=== PATIENT | male | born 1950 | race Caucasian/White ===

== ENCOUNTER 2024-07-07 10:44 | Emergency (ER) | payer MEDICARE, MEDICAID, SELFPAY ==
[2024-07-07 10:46] VITALS: BP 136/71; PULSE 68; RESP 18; TEMP 36.8; O2SAT 94; BMI 45.1
--- NOTE | 2024-07-07 10:55 | XRR_ITS ---
PROCEDURE INFORMATION: Exam: XR Chest Exam date and time: 07/07/2024 11:09 AM Age: 73 years old Clinical indication: Shortness of breath; Patient HX: PT presents with bradycardia. EMS reports that halfway states patient would become bradicardic upon standing, dropping to 50-60s. Patient stayed in the 70s for EMS. Patient has HX of copd. Patient given 324 asa enroute. Patent airway, unlabored respirations, and appropriate color. ; Additional info: SOB TECHNIQUE: Imaging protocol: Radiologic exam of the chest. Views: 1 view. COMPARISON: No relevant prior studies available. FINDINGS: Lungs: The lungs are hyperinflated. There is minimal patchy infiltrate or atelectasis at the right lung base. No definite consolidation is appreciated. Pleural spaces: Unremarkable. No pleural effusion. No pneumothorax. Heart/Mediastinum: The heart is enlarged. There is calcified plaque involving the aorta. Bones/joints: Unremarkable. XR/XR chest 1V portable [id number] IMPRESSION: 1. Cardiomegaly. 2. Minimal patchy infiltrate or atelectasis right lung base.
--- NOTE | 2024-07-07 10:55 | ECG_ITS ---
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 Measurements Intervals [place] Rate: 66 P: 59 RI: 189 QRS: 15 QRSD: 98 T: 54 QT: 413 QTc: 433 Interpretive Statements SINUS RHYTHM WITH FREQUENT VENTRICULAR PREMATURE COMPLEXES ABNORMAL RHYTHM ECG No previous ECG available for comparison Electronically Signed On 07-07-2024 14:00:06 JOINERY FACTORY WORKER by Orlando Chavez M.D. [id number]
[2024-07-07 11:10] VITALS: BP 136/71; PULSE 68; RESP 16; O2SAT 94
[2024-07-07 11:11] LABS: Basophils # 0.1 10^3/uL (0.0-0.1); Basophils % 0.8 %; Eosinophils # 0.4 10^3/uL (0.0-0.8); Eosinophils % 4.4 %; Hematocrit 41.3 % (37-53); Lymphocytes # 1.2 10^3/uL (0.8-4.8); Lymphocytes % 13.2 %; Mean Corpuscular HGB Conc 29.8 g/dL (30-55); Mean Corpuscular Hemoglobin 30.4 pg (27-33); Monocytes # 0.9 10^3/uL (0.2-0.9); Monocytes % 9.6 %; Neutrophils # 6.67 10^3/uL (1.8-7.7); Neutrophils % 71.6 %; Nucleated Red Blood Cells % 0 %; Platelet Count 262 10^3/cmm (157-399); Red Blood Count 4.05 10^6/uL (3.85-5.65); Red Cell Distribution Width 15.2 % (12.1-15.1); White Blood Count 9.31 10^3/uL (3.29-11.43)
[2024-07-07 11:26] LABS: INR 1.24 (0.8-1.2); Partial Thromboplastin Time 31.1 SECONDS (23.9-36.7)
[2024-07-07 11:28] LABS: Troponin(5th) Baseline 24 ng/L (0-15)
[2024-07-07 11:43] LABS: Alanine Aminotransferase 10 U/L (0-41); Albumin Level 3.3 g/dL (3.5-5.2); Alkaline Phosphatase 133 U/L (40-130); Anion Gap 13.6 (5-19); Aspartate Amino Transferase 9 U/L (0-40); Blood Urea Nitrogen 20 mg/dL (8-23); Carbon Dioxide 29 mmol/L (22-29); Chloride 103 mmol/L (98-107); Creatinine Clr Calc Pharmacy 85.4341; Globulin 4.2 g/dL (1.3-4.6); Glucose 86 mg/dL (65-115); NT Pro B Type Natriuretic Pept 528 pg/mL (0-125); Osmolality Calculated 294 mOsm/kg (285-295); Potassium 4.6 mmol/L (3.5-5.1); Sodium 141 mmol/L (136-145); Total Bilirubin 0.2 mg/dL (0.15-1.2); Total Protein 7.5 g/dL (6.6-8.7)
--- NOTE | 2024-07-07 12:58 | ECG_ITS ---
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 Measurements Intervals [place] Rate: 66 P: 70 [place]: 192 QRS: 14 QRSD: 88 T: 59 QT: 398 QTc: 418 Interpretive Statements SINUS RHYTHM WITH FREQUENT VENTRICULAR PREMATURE COMPLEXES LOW QRS VOLTAGE IN PRECORDIAL LEADS [QRS DEFLECTION < 1.0 mV IN CHEST LEADS] ABNORMAL RHYTHM ECG Compared to ECG 07/07/2024 10:56:50 No significant changes Electronically Signed On 07-07-2024 14:13:47 SALES REPRESENTATIVE WIRE ROPE by Orlando Chavez M.D. [email or web address]
[2024-07-07] MEDS: ipratropium-albuterol 3 mL Neb INHALATION (13:24)
[2024-07-07 13:26] VITALS: PULSE 64; RESP 16; O2SAT 94
[2024-07-07] MEDS: methylPREDNISolone sod succ 125 mg/2 mL INJ IVP (13:30)
[2024-07-07 13:32] VITALS: PULSE 72
--- NOTE | 2024-07-07 13:48 | ED_ITS ---
HPI - Arrhythmia/Palpitations 2 General: Chief Complaint: Arrhythmia/Palpitations Stated Complaint: low heart rate Time Seen by Provider: 07/07/24 10:47 History of Present Illness: This patient is a 73-year-old white male [facility] who presents to the emergency department for evaluation of hypoxia and bradycardia. care home reported that his O2 sats did drop down into the 70s and his heart rate did drop down into the 30s. Patient states he did have some chest pain last night and some this morning but none currently. States he has chronic shortness of breath. He does have a history of COPD. He is not normally on oxygen. Related Data Previous Rx's Medication Instructions Recorded doxycycline hyclate 100 mg capsule 100 mg PO BID 10 days #20 caps 07/07/24 prednisone 5 mg tablets in a dose See Rx Instructions PO .COMPLEX 07/07/24 pack #21 ea Allergies Allergy/AdvReac Type Severity Reaction Status Date / Time No Known Allergies Allergy Verified 07/07/24 10:52 Review of Systems 2 General: Reports: 10 or more systems reviewed and unremarkable except in HPI and below Card: Reports: other (Bradycardia) Resp: Reports: dyspnea Physical Exam 2 Const: COMMON NORMALS: no acute distress, patient oriented x3 and no limitations GENERAL APPEARANCE: cooperative and comfortable HENMT: COMMON NORMALS: normocephalic, atraumatic, Normal nasal mucous membranes and turbinates present, moist oral mucous membranes and oropharynx normal HEAD & SCALP: normal to inspection, normocephalic and atraumatic F FABIOLA & SINUS: normal facial exam NOSE: Normal nasal mucous membranes and turbinates present Eye: COMMON NORMALS: Equal, round and reactive pupils present, EOMs intact bilaterally and conjunctivae normal GENERAL EYE: appearance normal, both eyes and all related structures CONJUNCTIVA: Yes conjunctivae normal PUPIL: Yes Equal, round and reactive pupils present Neck/C-Spine: COMMON NORMALS: supple and no JVD Chest: COMMONS NORMALS: normal inspection of the chest Resp: COMMON NORMALS: normal respiratory effort and clear to auscultation bilaterally AUSCULTATION: clear to auscultation bilaterally Cardio: COMMON NORMALS: no JVD, regular rate, regular rhythm, No gallops present (Cardio), No murmurs present (Cardio) and No rub (Cardio) RATE: r egular rate RHYTHM: regular rhythm GI: COMMON NORMALS: Normal to inspection, nondistended, normoactive bowel sounds present, Soft to palpation and non-tender AUSCULTATION: Yes normoactive bowel sounds PALPATION: Yes Soft to palpation : COMMON NORMALS: Yes no CVA tenderness BLADDER/KIDNEY EXAM: Yes no CVA tenderness Back/Pelvis: COMMON NORMALS: no CVA tenderness and thoracic and lumbar spine normal to inspection Extremity: COMMON NORMALS: normal to inspection Neuro: COMMON NORMALS: patient oriented x3 and CN's II-XII intact bilaterally Psych: COMMON NORMALS: mental status grossly normal, Normal thought process present and cooperative THOUGHT PROCESS: Normal thought process present Skin: COMMON NORMALS: no rashes or lesions noted, turgor normal and no jaundice GENERAL SKIN EXAM: no rashes or lesions noted and turgor normal Course 2 Vital Signs: Vital signs: Vital Signs Temperature 98.3 F 07/07/24 10:46 Pulse Rate 72 07/07/24 13:32 Respiratory Rate 16 07/07/24 13:26 Blood Pressure 136/71 07/07/24 11:10 Pulse Oximetry 94 07/07/24 13:26 Oxygen Delivery Me thod Room Air 07/07/24 13:26 MDM - Arrhythmia/Palpitations Medical Decision Making Telemetry monitoring revealed sinus rhythm throughout the patient's ER stay. No bradycardia. EKG revealed normal sinus rhythm with some PVCs. No ST segment abnormalities. Chest x-ray revealed either a minimal infiltrate or atelectasis in the right lung base. CBC was normal. CMP normal. BNP was 528. Troponin was 24 with a 2-hour level of 22. He was given a DuoNeb treatment and 125 mg of Solu-Medrol IV. He states that did help with his shortness of breath. I will go ahead and treat him for possible mild or early pneumonia based on the chest x-ray. Placed him on doxycycline and he was given his first dose in the emergency department. Also placed him on prednisone burst and taper for his COPD. Recommended he follow-up with his primary care physician in 1 week for recheck. He was discharged in stable condition. Lab Data 07/07/24 11:06 07/07/24 11:06 Radiology Impressions Chest X-Ray 07/07/24 10:55 IMPRESSION: 1. Cardiomegaly. 2. Minimal patchy infiltrate or atelectasis right lung base. Laboratory Results WBC 9.31 10^3/uL (3.29-11.43) 07/07/24 11:06 RBC 4.05 10^6/uL (3.85-5.65) 07/07/24 11:06 Hgb 12.30 g/dL (11.27-16.99) 07/07/24 11:06 Hct 41.3 % (37-53) 07/07/24 11:06 MCV 102.0 fl (82-101) H 07/07/24 11:06 MCH 30.4 pg (27-33) 07/07/24 11:06 MCHC 29.8 g/dL (30-55) L 07/07/24 11:06 RDW 15.2 % (12.1-15.1) H 07/07/24 11:06 Plt Count 262 10^3/cmm (157-399) 07/07/24 11:06 MPV 9.0 fL (7.4-10.4) 07/07/24 11:06 Neut % (Auto) 71.6 % 07/07/24 11:06 Lymph % (Auto) 13.2 % 07/07/24 11:06 [place] % (Auto) 9.6 % 07/07/24 11:06 Eos % (Auto) 4.4 % 07/07/24 11:06 Baso % (Auto) 0.8 % 07/07/24 11:06 Neut # (Auto) 6.67 10^3/uL (1.8-7.7) 07/07/24 11:06 Lymph # (Auto) 1.2 10^3/uL (0.8-4.8) 07/07/24 11:06 [place] # (Auto) 0.9 10^3/uL (0.2-0.9) 07/07/24 11:06 Eos # (Auto) 0.4 10^3/uL (0.0-0.8) 07/07/24 11:06 Baso # (Auto) 0.1 10^3/uL (0.0-0.1) 07/07/24 11:06 Nucleated RBC % (auto) 0 % 07/07/24 11:06 Nucleated RBCs # 0.0 /100WBC 07/07/24 11:06 PT 16.10 SECONDS (12.1-14.9) H 07/07/24 11:06 INR 1.24 (0.8-1.2) H 07/07/24 11:06 APTT 31.1 SECONDS (23.9-36.7) 07/07/24 11:06 Sodium 141 mmol/L (136-145) 07/07/24 11:06 Potassium 4.6 mmol/L (3.5-5.1) 07/07/24 11:06 Chloride 103 mmol/L (98-107) 07/07/24 11:06 Carbon Dioxide 29 mmol/L (22-29) 07/07/24 11:06 Anion Gap 13.6 (5-19) 07/07/24 11:06 BUN 20 mg/dL (8-23) 07/07/24 11:06 Creatinine 1.2 mg/dL (0.7-1.2) 07/07/24 11:06 GFR Calculation Not Reportable 07/07/24 11:06 Glucose 86 mg/dL (65-115) 07/07/24 11:06 Calculated Osmolality 294 mOsm/kg (285-295) 07/07/24 11:06 Calcium 8.0 mg/dL (8.5-10.5) L 07/07/24 11:06 Total Bilirubin 0.2 mg/dL (0.15-1.2) 07/07/24 11:06 AST 9 U/L (0-40) 07/07/24 11:06 ALT 10 U/L (0-41) 07/07/24 11:06 Alkaline Phosphatase 133 U/L (40-130) H 07/07/24 11:06 Troponin T Baseline 24 ng/L (0-15) H 07/07/24 11:06 Troponin T 120 Minute 22.40 ng/L (0-15) H 07/07/24 12:45 Delta Troponin T -1.60 ABS# (0-10) L 07/07/24 12:45 NT-Pro-B Natriuret Pep 528 pg/mL (0-125) H 07/07/24 11:06 Total Protein 7.5 g/dL (6.6-8.7) 07/07/24 11:06 Albumin 3.3 g/dL (3.5-5.2) L 07/07/24 11:06 Globulin 4.2 g/dL (1.3-4.6) 07/07/24 11:06 All radiology interpretation(s) finalized by discharge Discharge Plan Discharge Patient Disposition: Home Clinical Impression: COPD exacerbation Condition: Stable Prescriptions: New doxycycline hyclate 100 mg capsule 100 mg PO BID 10 Days Qty: 20 0RF prednisone 5 mg tablets,dose pack See Rx Instructions PO .COMPLEX Qty: 21 0RF Rx Instructions: prednisone 5 mg: take 8 tablets (40 mg) on Day 1; 7 tablets (35 mg) on Day 2; then decrease by 1 tablet every day until finished Discharge Orders: Discharge ED (Routine); Ordered 07/07/24 Ordered By: Favio Real Referrals: Fabian Camarillo DO [Primary Care Provider] - Patient Instructions: COPD Activity Restrictions/Additional Instructions: Follow-up with primary care provider in 1 week for recheck. Coding Level of Care Code ED Structural Steel Erection Supervisor for Chana Glass
[2024-07-07] MEDS: doxycycline 100 mg Tablet PO (13:57)
[2024-07-07 14:10] VITALS: BP 128/67; PULSE 68; RESP 14; O2SAT 96
== END 2024-07-07 16:02 | disposition home or self-care (01) ==
PROVIDERS: Emergency Provider Emergency Medicine; PCP Family Medicine
DX: J44.1 Chronic obstructive pulmonary disease with (acute) exacerbation (principal)
CPT/HCPCS: 71045; 80053; 83880; 84484; 85025; 85610; 85730; 93005; 94640; 96374; 99285; J2919

== ENCOUNTER 2024-09-11 20:44 | Emergency (ER) | payer MEDICARE, MEDICAID, SELFPAY ==
[2024-09-11 20:46] VITALS: BP 132/80; PULSE 100; RESP 20; TEMP 38.6; O2SAT 89; BMI 47.5
--- NOTE | 2024-09-11 21:06 | XRR_ITS ---
PROCEDURE INFORMATION: Exam: XR Chest Exam date and time: 09/11/2024 9:54 PM Age: 73 years old Clinical indication: Cough and fever; Additional info: Cough fever TECHNIQUE: Imaging protocol: Radiologic exam of the chest. Views: 1 view. COMPARISON: CR XR chest 1V portable [id number] 07/07/2024 11:09 AM FINDINGS: Lungs: Unremarkable. No consolidation. Pleural spaces: Unremarkable. No pleural effusion. No pneumothorax. Heart/Mediastinum: Unremarkable. No cardiomegaly. Bones/joints: Unremarkable. XR/XR chest 1V portable [id number] IMPRESSION: No acute findings.
[2024-09-11] MEDS: acetaminophen 500 mg Tablet 1000 MG PO (21:19)
[2024-09-11 21:21] VITALS: BP 123/67; PULSE 97; RESP 28; O2SAT 92
[2024-09-11 21:52] VITALS: BP 131/65; PULSE 108; RESP 28; O2SAT 91
[2024-09-11 22:07] LABS: Alkaline Phosphatase 118 U/L (40-130); Anion Gap 15.8 (5-19); Aspartate Amino Transferase 14 U/L (0-40); Blood Urea Nitrogen 22 mg/dL (8-23); Calcium 8.1 mg/dL (8.5-10.5); Carbon Dioxide 28 mmol/L (22-29); Chloride 94 mmol/L (98-107); Creatinine Clr Calc Pharmacy 75.3406; Globulin 5.1 g/dL (1.3-4.6); Glucose 142 mg/dL (65-115); Lactic Sepsis W/Reflex 1.5 mmol/L (0.5-2.2); Osmolality Calculated 284 mOsm/kg (285-295); Potassium 3.8 mmol/L (3.5-5.1); Sodium 134 mmol/L (136-145); Total Bilirubin 0.5 mg/dL (0.15-1.2); Total Protein 8.1 g/dL (6.6-8.7)
--- NOTE | 2024-09-11 22:07 | ED_ITS ---
HPI - Fever 2 General: Chief Complaint: Fever Stated Complaint: fever Time Seen by Provider: 09/11/24 21:06 History of Present Illness: Patient presents from correction for weakness and high fevers. Patient said he has been for bad for the last 2 or 3 days. He is not quite sure why is here though he is a very poor historian. Patient is alert and oriented x 4. Patient initially was requiring oxygen but we titrated him down to 0 L and he kept a saturation 91% or above. Patient's temperature upon arrival was 101.5. Related Data Previous Rx's Medication Instructions Recorded prednisone 5 mg tablets in a dose See Rx Instructions PO .COMPLEX 07/07/24 pack #21 ea cefdinir 300 mg capsule 300 mg PO BID 10 days #20 caps 09/12/24 Allergies Allergy/AdvReac Type Severity Reaction Status Date / Time No Known Allergies Allergy Verified 07/07/24 10:52 Review of Systems 2 General: Reports: 10 or more systems reviewed and unremarkable except in HPI and below Physical Exam 2 Const: COMMON NORMALS: no acute distress, average body habitus, patient oriented x3, no limitations, healthy appearing, alert and well nourished HENMT: COMMON NORMALS: normocephalic, atraumatic, hearing grossly normal bilaterally, external ears normal, Normal external nose present and moist oral mucous membranes HEAD & SCALP: normocephalic and atraumatic NOSE: Normal external nose present EXTERNAL EAR: Yes external ears normal Neck/C-Spine: COMMON NORMALS: no JVD Chest: COMMONS NORMALS: normal inspection of the chest and normal palpation of entire chest wall Resp: COMMON NORMALS: normal respiratory effort, No retractions and No use of accessory muscles; negative for clear to auscultation bilaterally (Decreased breath sounds bilaterally occasional wheeze) AUSCULTATION: not clear to auscultation bilaterally (Decreased breath sounds bilaterally occasional wheeze) Cardio: COMMON NORMALS: no JVD, regular rate, regular rhythm, S1 normal heart sound present, S2 normal heart sound present, No gallops present (Cardio), No clicks present (Cardio) and No murmurs present (Cardio) RATE: regular rate RHYTHM: regular rhythm HEART SOUNDS: S1 normal heart sound present and S2 normal heart sound present GI: COMMON NORMALS: Normal to inspection, nondistended, normoactive bowel sounds present, Soft to palpation, non-tender, No hepatosplenomegaly present and no masses PALPATION: Yes Soft to palpation and Yes No hepatosplenomegaly present Neuro: COMMON NORMALS: patient oriented x3 SENSORIUM/ORIENTATION: Yes alert Course 2 Vital Signs: Vital signs: Vital Signs Temperature 101.5 F H 09/11/24 20:46 Pulse Rate 81 09/12/24 00:06 Respiratory Rate 19 H 09/12/24 00:06 Blood Pressure 127/64 09/12/24 00:06 Pulse Oximetry 95 09/12/24 00:06 Oxygen Delivery Me thod Nasal Cannula 09/12/24 00:06 Oxygen Flow Rate 2 09/12/24 00:06 MDM - Fever Medical Decision Making Chest x-ray was negative, lab work revealed a 22,000 white count, hemoglobin 10 lactic acid was within normal limits urinalysis was unremarkable for infection, COVID RSV and influenza A negative, patient will be given Rocephin and discharged back to his correction. Medical Records I reviewed the patient's medical records. Lab Data I reviewed the patient's lab results. 09/11/24 21:40 09/11/24 21:40 Radiology Impressions Chest X-Ray 09/11/24 21:06 IMPRESSION: No acute findings. Laboratory Results WBC 22.83 10^3/uL (3.29-11.43) H 09/11/24 21:40 RBC 3.71 10^6/uL (3.85-5.65) L 09/11/24 21:40 Hgb 10.60 g/dL (11.27-16.99) L 09/11/24 21:40 Hct 35.1 % (37-53) L 09/11/24 21:40 MCV 94.6 fl (82-101) 09/11/24 21:40 MCH 28.6 pg (27-33) 09/11/24 21:40 MCHC 30.2 g/dL (30-55) 09/11/24 21:40 RDW 15.6 % (12.1-15.1) H 09/11/24 21:40 Plt Count 323 10^3/cmm (157-399) 09/11/24 21:40 MPV 8.7 fL (7.4-10.4) 09/11/24 21:40 Neut % (Auto) 86.9 % 09/11/24 21:40 Lymph % (Auto) 5.1 % 09/11/24 21:40 [place] % (Auto) 7.0 % 09/11/24 21:40 Eos % (Auto) 0.0 % 09/11/24 21:40 Baso % (Auto) 0.2 % 09/11/24 21:40 Neut # (Auto) 19.85 10^3/uL (1.8-7.7) H 09/11/24 21:40 Lymph # (Auto) 1.2 10^3/uL (0.8-4.8) 09/11/24 21:40 [place] # (Auto) 1.6 10^3/uL (0.2-0.9) H 09/11/24 21:40 Eos # (Auto) 0.0 10^3/uL (0.0-0.8) 09/11/24 21:40 Baso # (Auto) 0.1 10^3/uL (0.0-0.1) 09/11/24 21:40 Nucleated RBC % (auto) 0.1 % 09/11/24 21:40 Nucleated RBCs # 0.0 /100WBC 09/11/24 21:40 Sodium 134 mmol/L (136-145) L 09/11/24 21:40 Potassium 3.8 mmol/L (3.5-5.1) 09/11/24 21:40 Chloride 94 mmol/L (98-107) L 09/11/24 21:40 Carbon Dioxide 28 mmol/L (22-29) 09/11/24 21:40 Anion Gap 15.8 (5-19) 09/11/24 21:40 BUN 22 mg/dL (8-23) 09/11/24 21:40 Creatinine 1.4 mg/dL (0.7-1.2) H 09/11/24 21:40 GFR Calculation Not Reportable 09/11/24 21:40 Glucose 142 mg/dL (65-115) H 09/11/24 21:40 Calculated Osmolality 284 mOsm/kg (285-295) L 09/11/24 21:40 Lactic Acid 1.5 mmol/L (0.5-2.2) 09/11/24 21:40 Calcium 8.1 mg/dL (8.5-10.5) L 09/11/24 21:40 Total Bilirubin 0.5 mg/dL (0.15-1.2) 09/11/24 21:40 AST 14 U/L (0-40) 09/11/24 21:40 ALT 11 U/L (0-41) 09/11/24 21:40 Alkaline Phosphatase 118 U/L (40-130) 09/11/24 21:40 NT-Pro-B Natriuret Pep 1100 pg/mL (0-125) H 09/11/24 21:40 Total Protein 8.1 g/dL (6.6-8.7) 09/11/24 21:40 Albumin 3.0 g/dL (3.5-5.2) L 09/11/24 21:40 Globulin 5.1 g/dL (1.3-4.6) H 09/11/24 21:40 Procalcitonin 0.33 ng/mL (0-0.5) 09/11/24 21:40 Urine Color Dark yellow (Yellow) A 09/11/24 23:08 Urine Appearance Clear (CLEAR) 09/11/24 23:08 Urine pH 5.5 (5-7) 09/11/24 23:08 Ur Specific [place] 1.021 (1.005-1.030) 09/11/24 23:08 Urine Protein 1+ (Negative) A 09/11/24 23:08 Urine Glucose (UA) Negative (Normal) 09/11/24 23:08 Urine Ketones Negative (Negative) 09/11/24 23:08 Urine Blood Trace (Negative) A 09/11/24 23:08 Urine Nitrate Negative (Negative) 09/11/24 23:08 Urine Bilirubin Negative (Negative) 09/11/24 23:08 Urine Urobilinogen 1.0 mg/dL (Negative) 09/11/24 23:08 Ur Leukocyte Esterase Negative (Negative) 09/11/24 23:08 Urine RBC 11-20 /hpf (0-2) H 09/11/24 23:08 Urine WBC 0-5 /hpf (0-5) 09/11/24 23:08 Ur Squamous Epith Cells 0-5 /hpf (0-5) 09/11/24 23:08 Amorphous Sediment Not Reportable 09/11/24 23:08 Urine Bacteria None seen /hpf (NONE) 09/11/24 23:08 Hyaline Casts 0.81 /lpf 09/11/24 23:08 Coronavirus (PCR) Negative (Negative) 09/11/24 21:31 Influenza A (PCR) Negative (Negative) 09/11/24 21:31 Influenza Type B (PCR) Negative (Negative) 09/11/24 21:31 RSV (PCR) Negative (Negative) 09/11/24 21:31 All radiology interpretation(s) finalized by discharge Discharge Plan Discharge Patient Disposition: Home Clinical Impression: Hypoxia Fever Qualifiers: Fever type: unspecified Qualified Code(s): R50.9 - Fever, unspecified Leukocytosis Qualifiers: Leukocytosis type: unspecified Qualified Code(s): D72.829 - Elevated white blood cell count, unspecified Condition: Stable Prescriptions: New cefdinir 300 mg capsule 300 mg PO BID 10 Days Qty: 20 0RF No Action prednisone 5 mg tablets,dose pack See Rx Instructions PO .COMPLEX Qty: 21 0RF Rx Instructions: prednisone 5 mg: take 8 tablets (40 mg) on Day 1; 7 tablets (35 mg) on Day 2; then decrease by 1 tablet every day until finished Discharge Orders: Discharge ED (Routine); Ordered 09/12/24 Ordered By: Darron Wise Referrals: Fabian Camarillo DO [Primary Care Provider] - 1 week Patient Instructions: Fever - Adult, Leukocytosis (ED), Hypoxia (ED) Activity Restrictions/Additional Instructions: You been placed on cefdinir and antibiotic which should take care of any bacterial infection. Please stay on 2 L of oxygen per nasal cannula to help your oxygen saturations stay above 90%. Please follow-up with your family practice physician within next 7 days for further evaluation and treatment. Coding Level of Care Code ED Bar Tacker for Chana Glass
[2024-09-11 22:14] LABS: Procalcitonin 0.33 ng/mL (0-0.5)
[2024-09-11 22:27] LABS: Covid PCR NEGATIVE (Negative); Influenza A NEGATIVE (Negative); Influenza B NEGATIVE (Negative); Respiratory Syncytial Virus Ce NEGATIVE (Negative)
[2024-09-11 22:33] LABS: NT Pro B Type Natriuretic Pept 1100 pg/mL (0-125)
[2024-09-11 22:40] LABS: Basophils # 0.1 10^3/uL (0.0-0.1); Basophils % 0.2 %; Hematocrit 35.1 % (37-53); Lymphocytes # 1.2 10^3/uL (0.8-4.8); Lymphocytes % 5.1 %; Mean Corpuscular HGB Conc 30.2 g/dL (30-55); Mean Corpuscular Hemoglobin 28.6 pg (27-33); Mean Corpuscular Volume 94.6 fl (82-101); Mean Platelet Volume 8.7 fL (7.4-10.4); Monocytes # 1.6 10^3/uL (0.2-0.9); Neutrophils # 19.85 10^3/uL (1.8-7.7); Neutrophils % 86.9 %; Nucleated Red Blood Cells % 0.1 %; Platelet Count 323 10^3/cmm (157-399); Red Blood Count 3.71 10^6/uL (3.85-5.65); Red Cell Distribution Width 15.6 % (12.1-15.1); White Blood Count 22.83 10^3/uL (3.29-11.43)
[2024-09-11 22:46] LABS: Alanine Aminotransferase 11 U/L (0-41)
[2024-09-11 23:10] VITALS: BP 109/56; PULSE 89; RESP 21; O2SAT 90
[2024-09-11 23:31] LABS: Bilirubin Urine Negative (Negative); Blood Urine Trace (Negative); Glucose Urine UA Negative (Normal); Ketones Urine Negative (Negative); Leukocyte Esterase Urine Negative (Negative); Nitrate Urine Negative (Negative); Protein Urine 1+ (Negative); Specific Gravity, Urine 1.021 (1.005-1.030); Urine Appearance Clear (CLEAR); Urine Color Dark Yellow (Yellow); pH Urine 5.5 (5-7)
[2024-09-11 23:36] LABS: Add Urine Microscopic? YES; Bacteria Urine None Seen /hpf; Hyaline Casts Urine 0.81 /lpf; Squamous Epithelial Cell Urine 0-5 /hpf (0-5); WBC Urine 0-5 /hpf (0-5)
[2024-09-12 00:06] VITALS: BP 127/64; PULSE 81; RESP 19; O2SAT 95
[2024-09-12] MEDS: cefTRIAXone 2,000 mg SDV 2000 MG IVP (00:50)
[2024-09-12 00:51] VITALS: BP 120/65; PULSE 79; RESP 19; O2SAT 92
[2024-09-12 01:30] VITALS: BP 129/68; PULSE 82; O2SAT 93
== END 2024-09-12 01:28 | disposition home or self-care (01) ==
PROVIDERS: Emergency Provider Emergency Medicine; PCP Family Medicine
DX: R09.02 Hypoxemia (principal); R50.9 Fever, unspecified; D72.829 Elevated white blood cell count, unspecified; Z11.52 Encounter for screening for COVID-19
CPT/HCPCS: 36415; 71045; 80053; 81001; 83605; 83880; 84145; 85025; 87040; 87637; 96374; 99284; J0696

== ENCOUNTER 2024-11-02 12:38 | Inpatient (IN) | payer MEDICARE, MEDICAID, SELFPAY ==
[2024-11-02] VITALS (58 sets, daily range): BP systolic 116–173; BP diastolic 63–107; PULSE 94–145; RESP 20–38; TEMP 36.7–37.9; O2SAT 81–98; BMI 46.5
--- NOTE | 2024-11-02 12:41 | XRR_ITS ---
PROCEDURE INFORMATION: Exam: XR Chest Exam date and time: 11/02/2024 12:53 PM Age: 74 years old Clinical indication: Cough and dyspnea; Dyspnea; Cough; Respiratory distress; Leukocytosis TECHNIQUE: Imaging protocol: Radiologic exam of the chest. Views: 1 view. COMPARISON: CR (CHEST, ) 09/11/2024 9:54 PM FINDINGS: Lungs: Unremarkable. No consolidation. Pleural spaces: Unremarkable. No pleural effusion. No pneumothorax. Heart/Mediastinum: See Vasculature finding. Vasculature: Mild cardiomegaly uncoiling the thoracic aorta. Bones/joints: Unremarkable. XR/XR chest 1V portable [id number] IMPRESSION: No acute findings.
--- NOTE | 2024-11-02 12:46 | USR_ITS ---
PROCEDURE INFORMATION: Exam: US Duplex Lower Extremity Veins, Bilateral Exam date and time: 11/02/2024 2:01 PM Age: 74 years old Clinical indication: Swelling (edema) of limb; Lower extremity, bilateral; Additional info: Leg pain swellling TECHNIQUE: Imaging protocol: Real-time duplex ultrasound of the bilateral extremities with 2-D wyatt scale, color Doppler flow and spectral waveform analysis including responses to compression and other maneuvers (when performed) with image documentation. Complete exam focused on the lower extremity veins. COMPARISON: No relevant prior studies available. FINDINGS: Right deep veins: Unremarkable. The common femoral, femoral, proximal profunda femoral and popliteal veins are patent without thrombus. Normal Doppler waveforms. Normal compressibility and/or augmentation response. Left deep veins: Unremarkable. The common femoral, femoral, proximal profunda femoral and popliteal veins are patent without thrombus. Normal Doppler waveforms. Normal compressibility and/or augmentation response. Superficial veins: Greater saphenous veins at the saphenofemoral junctions are patent bilaterally without thrombus. Soft tissues: Unremarkable. Other findings: The study is limited by the patient's body habitus and inability to cooperate. US/[place] [id number] IMPRESSION: No evidence of deep vein thrombosis. Limited study.
--- NOTE | 2024-11-02 12:49 | ECG_ITS ---
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 Measurements Intervals [place] Rate: 112 P: 51 CO: 152 QRS: -19 QRSD: 89 T: 56 QT: 325 QTc: 444 Interpretive Statements SINUS TACHYCARDIA LOW QRS VOLTAGE IN PRECORDIAL LEADS [QRS DEFLECTION < 1.0 mV IN CHEST LEADS] ANTEROSEPTAL MYOCARDIAL INFARCTION , PROBABLY OLD [40+ ms Q WAVE IN V1-V4] Compared to ECG 07/07/2024 12:58:11 Myocardial infarct finding now present Sinus rhythm no longer present Ventricular premature complex(es) no longer present Electronically Signed On 11-02-2024 17:57:09 ANALYTICS LEADER by Kaz Stafford M.D. [email or web address] [id number]
[2024-11-02 13:01] LABS: ABG PCO2 41.2 mmHg (35-45); ABG PH Result 7.46 (7.35-7.45); Alveolar-Arterial Oxygen Gradi 14.8 mmHg (5-10); Arterial Blood Gas Hematocrit 31.6 % (42-52); Base Excess ABG 5.1 mmol/L (-2.0-2.0); Blood Gas Allen Test Pos; Blood Gas Operator Identificat AMH; Blood Gas Sample Site Radial, left; Blood Gas Sample Type Arterial; Carboxyhemoglobin 1.6 %THgb (0.4-20.1); HCO3 ABG 29.4 mmol/L (22-26); HGB O2 Sat 91.7 % (95-100); Ionized Calcium Level - ABG 1.1 mmol/L (1.1-1.4); Methemoglobin < 0.0 % (0.4-1.5); Oxygen Device NC; Oxygen Saturation ABG 93.2; PO2 ABG 63.8 mmHg (80.0-100.0); PO2 FiO2 Ratio Arterial Blood 199; Potassium Level - ABG 4.2 mmol/L (3.5-5.0); Total Hemoglobin 10.3 g/dL (14-18)
[2024-11-02] MEDS: ipratropium-albuterol 3 mL Neb INHALATION (13:11)
--- NOTE | 2024-11-02 13:19 | PC.PHAR ---
Pt is from [facility] in [facility]. [phone]
[2024-11-02 13:22] LABS: Basophils # 0.1 10^3/uL (0.0-0.1); Basophils % 0.2 %; Hematocrit 34.4 % (37-53); Lymphocytes # 0.8 10^3/uL (0.8-4.8); Lymphocytes % 2.5 %; Mean Corpuscular HGB Conc 28.2 g/dL (30-55); Mean Corpuscular Hemoglobin 25.3 pg (27-33); Mean Corpuscular Volume 89.8 fl (82-101); Mean Platelet Volume 8.8 fL (7.4-10.4); Monocytes % 3.1 %; Neutrophils % 93.1 %; Nucleated Red Blood Cells % 0.1 %; Platelet Count 448 10^3/cmm (157-399); Red Blood Count 3.83 10^6/uL (3.85-5.65); Red Cell Distribution Width 16.5 % (12.1-15.1)
[2024-11-02 13:26] LABS: White Blood Count 32.32 10^3/uL (3.29-11.43)
[2024-11-02 13:42] LABS: Troponin(5th) Baseline 46 ng/L (0-15)
[2024-11-02 13:52] LABS: Reflex Lactate Order REFLEX LACTIC ORDERD
--- NOTE | 2024-11-02 13:53 | W.ED.SOB ---
HPI - SOB/Dyspnea General: Chief Complaint: Shortness of Breath/Dyspnea Stated Complaint: resp distress Time Seen by Provider: 11/02/24 12:40 History of Present Illness: HPI Narrative: Morbidly obese 74-year-old male presents to the emergency room with complaints of respiratory distress via [facility]. He is normally evidently not on he is to he tells me he is on oxygen as needed sometimes will use up to 2 L at night before he goes to bed. When he arrives here he is on 5 L is able to titrate him down to 3 and he maintained sats in the mid to low 90s. He is having significant respiratory distress with labored breathing and use of accessory respiratory muscles he has audible wheezing and crackles. He denies chest pain. He has swelling and redness of his legs which he states is worsened particularly on his right leg he has an ulcer on his right leg that is being treated by wound care at the penitentiary. Associated symptoms: Reports chest congestion and fever(s); Deny abdominal pain or chest pain Related Data Home Medications ?Medication ?Instructions ?Recorded ?Confirmed albuterol sulfate 90 mcg/actuation 2 puff inhalation Q4H PRN 11/02/24 11/02/24 aerosol inhaler Shortness Of Breath Or Wheezing aluminum-mag hydroxide-simethicone 30 ml PO Q2H PRN 11/02/24 11/02/24 400 mg-400 mg-40 mg/5 mL oral susp indigeston/heartburn/gas (Mylanta Maximum Strength) apixaban 5 mg tablet (Eliquis) 5 mg PO BID 11/02/24 11/02/24 bisacodyl 10 mg rectal suppository 10 mg W[place] .Q72H PRN Constipation 11/02/24 11/02/24 bisacodyl 5 mg tablet 20 mg PO .Q72H PRN Constipation 11/02/24 11/02/24 docusate sodium 100 mg capsule 100 mg PO BID 11/02/24 11/02/24 (Colace) ergocalciferol (vitamin D2) 1,250 50,000 mcg PO Q7D 11/02/24 11/02/24 mcg (50,000 unit) capsule fluoxetine 40 mg capsule 40 mg PO DAILY 11/02/24 11/02/24 fluticasone fur. 200 mcg-umeclid 1 inh inhalation DAILY 11/02/24 11/02/24 62.5 mcg-vilant 25 mcg inhalat.powder (Trelegy Ellipta) furosemide 80 mg tablet 80 mg PO DAILY 11/02/24 11/02/24 gabapentin 300 mg capsule 300 mg PO BID 11/02/24 11/02/24 ipratropium 0.5 mg-albuterol 3 mg 3 ml inhalation BID 11/02/24 11/02/24 (2.5 mg base)/3 mL nebulization soln loperamide 2 mg-simethicone 125 mg 1 tab PO Q6H PRN Diarrhea 11/02/24 11/02/24 tablet magnesium hydroxide 400 mg/5 mL 30 ml PO DAILY PRN Constipation 11/02/24 11/02/24 oral suspension (Milk of Magnesia) melatonin 3 mg tablet 6 mg PO BEDTIME 11/02/24 11/02/24 multivitamin 1 tab PO QAM 11/02/24 11/02/24 omeprazole 20 mg tablet,delayed 20 mg PO DAILY 11/02/24 11/02/24 release oxycodone-acetaminophen 10 mg-325 1 tab PO Q6H PRN Pain 11/02/24 11/02/24 mg tablet polyethylene glycol 3350 17 17 g PO DAILY PRN bowel management 11/02/24 11/02/24 gram/dose oral powder (Miralax) protein supplement See Rx Instructions .Route .COMPLEX 11/02/24 11/02/24 semaglutide 0.25 mg or 0.5 mg (2 0.5 mg SUBCUT Q7D 11/02/24 11/02/24 mg/3 mL) subcutaneous pen injector (Ozempic) sennosides 8.6 mg tablet (senna) 8.6 mg PO DAILY 11/02/24 11/02/24 spironolactone 50 mg tablet 50 mg PO DAILY 11/02/24 11/02/24 Allergies Allergy/AdvReac Type Severity Reaction Status Date / Time No Known Allergies Allergy Verified 07/07/24 10:52 Review of Systems Const: Reports: fever(s), chills, body aches, fatigue and malaise Card: Denies: chest pain Resp: Reports: dyspnea, non-productive cough, wheezing and chest congestion GI: Denies: abdominal pain : Denies: dysuria, urinary frequency or urinary urgency Musc: Denies: neck pain or back pain Skin/Breast: Denies: rash Physical Exam Const: COMMON NORMALS: no acute distress GENERAL APPEARANCE: cooperative and comfortable ORIENTATION/CONSCIOUSNESS: Yes awake, Yes oriented to person, Yes oriented to place and Yes oriented to time HENMT: COMMON NORMALS: normocephalic, atraumatic and hearing grossly normal bilaterally HEAD & SCALP: normocephalic and atraumatic Resp: COMMON NORMALS: normal respiratory effort, No retractions, No use of accessory muscles and clear to auscultation bilaterally AUSCULTATION: clear to auscultation bilaterally Cardio: COMMON NORMALS: regular rate, regular rhythm and No murmurs present (Cardio) RATE: regular rate RHYTHM: regular rhythm GI: COMMON NORMALS: Soft to palpation and No hepatosplenomegaly present AUSCULTATION: Yes normoactive bowel sounds PALPATION: Yes Soft to palpation, No Tenderness to palpation present (GI), No Guarding due to palpation present (GI) and Yes No hepatosplenomegaly present Extremity: COMMON NORMALS: normal to inspection, capillary refill normal, no clubbing, cyanosis or edema, no calf tenderness and no pedal edema Neuro: SENSORIUM/ORIENTATION: Yes oriented to person, Yes oriented to place and Yes oriented to time Skin: OTHER: Course Vital Signs: Vital signs: Vital Signs Temperature 99.8 F H 11/02/24 12:40 Pulse Rate 108 H 11/02/24 15:00 Respiratory Rate 30 H 11/02/24 15:00 Blood Pressure 118/63 11/02/24 15:00 Pulse Oximetry 93 11/02/24 15:00 Oxygen Delivery Me thod Nasal Cannula 11/02/24 13:10 Oxygen Flow Rate 3 11/02/24 13:10 MDM - SOB/Dyspnea Medical Decision Making Leukocytosis with sepsis right lower lobe pneumonia and congestive heart failure. Initially on evaluation patient was obviously in worsened congestive heart failure send known history of we do not have a echo to quantify. Patient was given 60 mg of Lasix. White count came back as well as elevated with his marked left shift he had a white count of 23,000 his last visit prior to that was normal. Cultures have been done his lactate is elevated I do believe he has a right lower and middle pneumonias as well as a left lower lobe pneumonia. He started on IV antibiotics. We did not give the full fluid bolus because of the patient's congestive heart failure doing so would of course significantly worsened his outcomes and caused him deterioration he was given 250 mL IV and lieu of the 30 mL/kg bolus because of his medical condition. Discussed with hospitalist orders written he has been started on vancomycin and Zosyn. Medical Records I reviewed the patient's medical records. Lab Data I reviewed the patient's lab results. 11/02/24 13:14 11/02/24 13:14 Labs/Radiology: Radiology Impressions Chest X-Ray 11/02/24 12:41 IMPRESSION: No acute findings. Venous Duplex 11/02/24 12:46 IMPRESSION: No evidence of deep vein thrombosis. Limited study. Laboratory Results WBC 32.32 10^3/uL (3.29-11.43) H* 11/02/24 13:14 RBC 3.83 10^6/uL (3.85-5.65) L 11/02/24 13:14 Hgb 9.70 g/dL (11.27-16.99) L 11/02/24 13:14 Hct 34.4 % (37-53) L 11/02/24 13:14 MCV 89.8 fl (82-101) 11/02/24 13:14 MCH 25.3 pg (27-33) L 11/02/24 13:14 MCHC 28.2 g/dL (30-55) L 11/02/24 13:14 RDW 16.5 % (12.1-15.1) H 11/02/24 13:14 Plt Count 448 10^3/cmm (157-399) H 11/02/24 13:14 MPV 8.8 fL (7.4-10.4) 11/02/24 13:14 Neut % (Auto) 93.1 % 11/02/24 13:14 Lymph % (Auto) 2.5 % 11/02/24 13:14 [place] % (Auto) 3.1 % 11/02/24 13:14 Eos % (Auto) 0.0 % 11/02/24 13:14 Baso % (Auto) 0.2 % 11/02/24 13:14 Neut # (Auto) 30.10 10^3/uL (1.8-7.7) H 11/02/24 13:14 Lymph # (Auto) 0.8 10^3/uL (0.8-4.8) 11/02/24 13:14 [place] # (Auto) 1.0 10^3/uL (0.2-0.9) H 11/02/24 13:14 Eos # (Auto) 0.0 10^3/uL (0.0-0.8) 11/02/24 13:14 Baso # (Auto) 0.1 10^3/uL (0.0-0.1) 11/02/24 13:14 Nucleated RBC % (auto) 0.1 % 11/02/24 13:14 Nucleated RBCs # 0.0 /100WBC 11/02/24 13:14 Specimen Type Arterial 11/02/24 12:49 Sample Site Radial, left 11/02/24 12:49 ABG pH 7.46 (7.35-7.45) H 11/02/24 12:49 ABG pCO2 41.2 mmHg (35-45) 11/02/24 12:49 ABG pO2 63.8 mmHg (80.0-100.0) L 11/02/24 12:49 ABG PO2/FiO2 Ratio 199 11/02/24 12:49 ABG HCO3 29.4 mmol/L (22-26) H 11/02/24 12:49 ABG O2 Saturation 93.2 11/02/24 12:49 ABG Base Excess 5.1 mmol/L (-2.0-2.0) H 11/02/24 12:49 Ivan Test Pos 11/02/24 12:49 A-a O2 Gradient 14.8 mmHg (5-10) H 11/02/24 12:49 Hematocrit 31.6 % (42-52) L 11/02/24 12:49 Hgb O2 Saturation 91.7 % (95-100) L 11/02/24 12:49 Carboxyhemoglobin 1.6 %THgb (0.4-20.1) 11/02/24 12:49 Methemoglobin < 0.0 % (0.4-1.5) L 11/02/24 12:49 Total Hemoglobin 10.3 g/dL (14-18) L 11/02/24 12:49 Sodium 140.0 mmol/L (131-143) 11/02/24 12:49 Potassium 4.2 mmol/L (3.5-5.0) 11/02/24 12:49 Glucose 203.0 mg/dL (70-115) H 11/02/24 12:49 Ionized Calcium 1.1 mmol/L (1.1-1.4) 11/02/24 12:49 O2 Delivery Device Nc 11/02/24 12:49 O2 Liters/Min 3.0 % 11/02/24 12:49 FiO2 32.0 % 11/02/24 12:49 Correspondence Section Supervisor ID Amh 11/02/24 12:49 Sodium 138 mmol/L (136-145) 11/02/24 13:14 Potassium 4.5 mmol/L (3.5-5.1) 11/02/24 13:14 Chloride 98 mmol/L (98-107) 11/02/24 13:14 Carbon Dioxide 29 mmol/L (22-29) 11/02/24 13:14 Anion Gap 15.5 (5-19) 11/02/24 13:14 BUN 33 mg/dL (8-23) H 11/02/24 13:14 Creatinine 1.5 mg/dL (0.7-1.2) H 11/02/24 13:14 GFR Calculation Not Reportable 11/02/24 13:14 Glucose 187 mg/dL (65-115) H 11/02/24 13:14 Calculated Osmolality 298 mOsm/kg (285-295) H 11/02/24 13:14 Lactic Acid 4.0 mmol/L (0.5-2.2) H 11/02/24 13:14 Calcium 7.9 mg/dL (8.5-10.5) L 11/02/24 13:14 Total Bilirubin 0.6 mg/dL (0.15-1.2) 11/02/24 13:14 AST 24 U/L (0-40) 11/02/24 13:14 ALT 21 U/L (0-41) 11/02/24 13:14 Alkaline Phosphatase 134 U/L (40-130) H 11/02/24 13:14 Creatine Kinase 97 U/L (39-308) 11/02/24 13:14 Troponin T Baseline 46 ng/L (0-15) H 11/02/24 13:14 NT-Pro-B Natriuret Pep 5995 pg/mL (0-125) H 11/02/24 13:14 Total Protein 8.9 g/dL (6.6-8.7) H 11/02/24 13:14 Albumin 3.0 g/dL (3.5-5.2) L 11/02/24 13:14 Globulin 5.9 g/dL (1.3-4.6) H 11/02/24 13:14 Procalcitonin 1.42 ng/mL (0-0.5) H 11/02/24 13:14 Urine Color Dark yellow (Yellow) A 11/02/24 13:51 Urine Appearance Clear (CLEAR) 11/02/24 13:51 Urine pH 5.5 (5-7) 11/02/24 13:51 Ur Specific Oliver 1.020 (1.005-1.030) 11/02/24 13:51 Urine Protein 1+ (Negative) A 11/02/24 13:51 Urine Glucose (UA) Negative (Normal) 11/02/24 13:51 Urine Ketones Trace (Negative) 11/02/24 13:51 Urine Blood 1+ (Negative) A 11/02/24 13:51 Urine Nitrate Negative (Negative) 11/02/24 13:51 Urine Bilirubin Negative (Negative) 11/02/24 13:51 Urine Urobilinogen 1.0 mg/dL (Negative) 11/02/24 13:51 Ur Leukocyte Esterase Trace (Negative) A 11/02/24 13:51 Urine RBC 3-5 /hpf (0-2) 11/02/24 13:51 Urine WBC 0-5 /hpf (0-5) 11/02/24 13:51 Ur Squamous Epith Cells 0-5 /hpf (0-5) 11/02/24 13:51 Amorphous Sediment Not Reportable 11/02/24 13:51 Urine Bacteria 1+ /hpf (NONE) H 11/02/24 13:51 Hyaline Casts 48.40 /lpf 11/02/24 13:51 Coarse Granular Casts 0-4 /lpf H 11/02/24 13:51 Urine Mucus Trace /hpf 11/02/24 13:51 Influenza A (PCR) Negative (Negative) 11/02/24 13:38 Influenza Type B (PCR) Negative (Negative) 11/02/24 13:38 RSV (PCR) Negative (Negative) 11/02/24 13:38 SARS-CoV-2 (PCR) Negative (Negative) 11/02/24 13:38 All radiology interpretation(s) finalized by discharge Discharge Plan Discharge Patient Disposition: Admitted As Inpatient Admit Provider: Pavithra Carranza Clinical Impression: Acute hypoxemic respiratory failure, Community acquired pneumonia, Acute exacerbation of chronic obstructive airways disease, Congestive heart failure, Cellulitis, History of deep vein thrombosis Condition: Stable Coding Level of Care Code ED 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
[2024-11-02 13:54] LABS: Alanine Aminotransferase 21 U/L (0-41); Alkaline Phosphatase 134 U/L (40-130); Anion Gap 15.5 (5-19); Aspartate Amino Transferase 24 U/L (0-40); Blood Urea Nitrogen 33 mg/dL (8-23); Calcium 7.9 mg/dL (8.5-10.5); Carbon Dioxide 29 mmol/L (22-29); Chloride 98 mmol/L (98-107); Creatine Phosphokinase 97 U/L (39-308); Creatinine Clr Calc Pharmacy 68.4763; Globulin 5.9 g/dL (1.3-4.6); Glucose 187 mg/dL (65-115); Osmolality Calculated 298 mOsm/kg (285-295); Potassium 4.5 mmol/L (3.5-5.1); Sodium 138 mmol/L (136-145); Total Bilirubin 0.6 mg/dL (0.15-1.2); Total Protein 8.9 g/dL (6.6-8.7)
[2024-11-02 14:06] LABS: Bilirubin Urine Negative (Negative); Blood Urine 1+ (Negative); Glucose Urine UA Negative (Normal); Ketones Urine Trace (Negative); Leukocyte Esterase Urine Trace (Negative); Nitrate Urine Negative (Negative); Protein Urine 1+ (Negative); Urine Appearance Clear (CLEAR); Urine Color Dark Yellow (Yellow); pH Urine 5.5 (5-7)
[2024-11-02 14:08] LABS: NT Pro B Type Natriuretic Pept 5995 pg/mL (0-125); Procalcitonin 1.42 ng/mL (0-0.5)
[2024-11-02] MEDS: FUROsemide 10 mg/mL SDV 10mL 60 MG IVP (14:08)
[2024-11-02 14:11] LABS: Add Urine Microscopic? YES; Squamous Epithelial Cell Urine 0-5 /hpf (0-5); WBC Urine 0-5 /hpf (0-5)
[2024-11-02 14:22] LABS: Bacteria Urine 1+ /hpf; UA Slide Review UA Slide Review Perf
[2024-11-02 14:23] LABS: Coarse Granular Casts Urine 0-4 /lpf; Mucus Urine TRACE /hpf
[2024-11-02 14:41] LABS: Influenza A NEGATIVE (Negative); Influenza B NEGATIVE (Negative); Respiratory Syncytial Virus Ce NEGATIVE (Negative); SARS-CoV-2 PCR NEGATIVE (Negative)
[2024-11-02] MEDS: VANCOMYCIN ADD-Vantage 1,000 MG in 0.9% NaCl ADD-Vantage 250 ML 250 MG IV (14:44)
[2024-11-02] MEDS: sodium chloride 0.9% 250 ML IV (14:44)
--- NOTE | 2024-11-02 15:25 | ECG_ITS ---
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 Measurements Intervals Jackson Rate: 108 P: 269 UT: 176 QRS: 81 QRSD: 97 T: 5 QT: 356 QTc: 477 Interpretive Statements SINUS TACHYCARDIA LOW QRS VOLTAGE IN PRECORDIAL LEADS [QRS DEFLECTION < 1.0 mV IN CHEST LEADS] ANTEROSEPTAL MYOCARDIAL INFARCTION , PROBABLY OLD [40+ ms Q WAVE IN V1-V4] Compared to ECG 11/02/2024 12:49:01 No significant changes Electronically Signed On 11-02-2024 19:26:09 TOOL STRAIGHTENER by Kaz Stafford M.D. [id number] [id number]
--- NOTE | 2024-11-02 15:33 | PC.PHAR ---
PHARMACY TO DOSE ZOSYN. PATIENT EST CRCL 68 AND SRCR 1.5. PLACED ORDER FOR EXTENDED INFUSION ZOSYN 3.375G Q8H OVER 4 HOURS
--- NOTE | 2024-11-02 15:39 | PHA.VACGOAL ---
Vancomycin Goal - Goal Vancomycin Goal:: 15-20 mg/L Vancomycin Indication:: SSTI - Therapy Current therapy:: Pip/Tazo Day of therpy:: Day []of [] . Actual body weight (kg): 342 lb 12.8 oz - Data Labs: WBC 32.32 10^3/uL (3.29-11.43) H* 11/02/24 13:14 RBC 3.83 10^6/uL (3.85-5.65) L 11/02/24 13:14 Hgb 9.70 g/dL (11.27-16.99) L 11/02/24 13:14 Hct 34.4 % (37-53) L 11/02/24 13:14 MCV 89.8 fl (82-101) 11/02/24 13:14 MCH 25.3 pg (27-33) L 11/02/24 13:14 MCHC 28.2 g/dL (30-55) L 11/02/24 13:14 RDW 16.5 % (12.1-15.1) H 11/02/24 13:14 Sodium 138 mmol/L (136-145) 11/02/24 13:14 Potassium 4.5 mmol/L (3.5-5.1) 11/02/24 13:14 Chloride 98 mmol/L (98-107) 11/02/24 13:14 Carbon Dioxide 29 mmol/L (22-29) 11/02/24 13:14 Anion Gap 15.5 (5-19) 11/02/24 13:14 BUN 33 mg/dL (8-23) H 11/02/24 13:14 Creatinine 1.5 mg/dL (0.7-1.2) H 11/02/24 13:14 GFR Calculation Not Reportable 11/02/24 13:14 Treatment plan:: new consult
[2024-11-02 15:41] LABS: Troponin 5 2HR 41.53 ng/L (0-15); Troponin 5 2HR Delta -4.47 ABS# (0-10)
[2024-11-02] MEDS: piperacillin-tazobactam 3.375 GM in sodium chloride 0.9% (plus) 50 ML IV ×2 (16:27→23:19)
--- OUTSIDE RECORDS SUMMARY | 2024-11-02 16:27 | XMS_ITS | Encounter Summary ---
Author Organization [facility] Address [address] [place] [address] Care Team Providers Care Radiation Therapy Technician Name Role Phone Roshan Jimenez DO Primary Care Provider Unav ailable Encounter Details Date Type Department Care Team (Latest Contact Info) Description 04/18/2006 Outpatient [facility] [address] [place] [address] Roshan Jimenez DO NO ADDRESS ON FILE Depressive Disorder, not Elsewhere Classified (Primary Dx); Anxiety State, Unspecified; Unspecified Essential Hypertension Social History Tobacco Use Types Packs/Day Years Used Date Smoking Tobacco: Never Assessed Sex and Gender Information Value Date Recorded Sex Assigned at Not on file 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
--- OUTSIDE RECORDS SUMMARY | 2024-11-02 16:27 | XMS_ITS | Encounter Summary ---
Author Organization [facility] Address [address] [place] [address] Care Team Providers Care Field Human Resources Manager Name Role Phone Roshan Jimenez DO Primary Care Provider Unav ailable Encounter Details Date Type Department Care Team (Latest Contact Info) Description 02/04/2003 Out[facility] [address] [place] [address] Roshan Jimenez DO NO ADDRESS ON FILE HYPERTENSION NOS (Primary Dx); OBESITY NOS; CHRONIC AIRWAY OBSTRUCTION NEC (CMS/[facility]); OSTEOARTHROS NOS-UNSPEC Social History Tobacco Use Types Packs/Day Years Used Date Smoking Tobacco: Never Assessed Sex and Gender Information Value Date Recorded Sex Assigned at Not on file 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 Gender Identity Not on file Sexual Orientation Not on file documented as of this encounter Plan of Treatment Not on file documented as of this encounter Visit Diagnoses Diagnosis Unspecified essential hypertension- Primary Obesity, unspecified Chronic airway obstruction, not elsewhere classified (CMS/HCC) Chronic airway obstruction, not elsewhere classified Osteoarthrosis, unspecified whether generalized or localized, unspecified site documented in this encounter Care Teams Field Human Resources Manager Relationship Specialty Start Date End Date Roshan Jimenez DO NO ADDRESS ON FILE PCP - General 03/26/03 documented as of this encounter
--- OUTSIDE RECORDS SUMMARY | 2024-11-02 16:27 | XMS_ITS | Encounter Summary ---
Author Organization [facility] Address [address] [place] [address] Care Team Providers Care Missileman Name Role Phone Roshan Jimenez DO Primary Care Provider Unav ailable Encounter Details Date Type Department Care Team (Latest Contact Info) Description 03/26/2003 Outpatient Historical [facility] [place] [address] [facility] [address] [place] [address] Demetri Chávez MD [address] [facility] [address] [place] [address] SCREENING MAL NEOP-COLON (Primary Dx) Social History Tobacco Use Types Packs/Day Years Used Date Smoking Tobacco: Never Assessed Sex and Gender Information Value Date Recorded Sex Assigned at Not on file 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
--- OUTSIDE RECORDS SUMMARY | 2024-11-02 16:27 | XMS_ITS | Encounter Summary ---
Author Organization [facility] Address [address] [place] [address] Care Team Providers Care Patient Care Director Name Role Phone Roshan Jimenez DO Primary Care Provider Unav ailable Encounter Details Date Type Department Care Team (Latest Contact Info) Description 01/06/1999 Outpatient Historical [facility] Podiatry-Stevo Bal Aaron [address] [place] [address] Noé Rosa, DPM [address] [place] [address] Ingrowing nail (Primary Dx) Social History Tobacco Use Types Packs/Day Years Used Date Smoking Tobacco: Never Assessed Sex and Gender Information Value Date Recorded Sex Assigned at Not on file 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
--- OUTSIDE RECORDS SUMMARY | 2024-11-02 16:27 | XMS_ITS | Encounter Summary ---
Author Organization [facility] Address [address] [place] [address] Care Team Providers Care Outdoor Studies Professor Name Role Phone Roshan Jimenez DO Primary Care Provider Unav ailable Encounter Details Date Type Department Care Team (Late st Contact Info) Description 05/27/2008 Outpatient Historical [facility] [address] [place] [address] [place] [address] Yusef Malagon MD NO ADDRESS ON FILE Social History Tobacco Use Types Packs/Day Years Used Date Smoking Tobacco: Every Day Cigarettes 1 40 Alcohol Use Standard Drinks/Week Comments No 0 (1 standard drink = 0.6 oz pur e alcohol) Sex and Gender Information Value Date Recorded Sex Assigned at Not on file 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 Gender Identity Not on file Sexual Orientation Not on file documented as of this encounter Plan of Treatment Pending Results Name Type Priority Associated Diagnoses Date /Time TYPE AND CROSSMATCH Blood Bank Stat 05/27 10:53 AM CDT documented as of this encounter Procedures Procedure Name Priority Date/Time Associated Diagnosis Comments URINALYSIS W/REFLEX MICROSCOPIC Stat 05/27/2008 10:56 AM CDT ABORH TYPING Stat 05/27/2008 10:53 AM CDT CBC WITH DIFFERENTIAL Stat 05/27/2008 10:53 AM CDT BLOOD BANK ANTIBODY SCREEN Stat 05/27/2008 10:53 AM CDT BASIC METABOLIC PANEL Stat 05/27/2008 10:53 AM CDT documented in this encounter Results * URINALYSIS (05/27/2008 10:56 AM CDT) NITRITE UA NEGATIVE NEGATIVE [facility] UROBILINOGEN UA 0.2 0.2 [facility] CLARITY UA Clear Clear [facility] GLUCOSE UA NEGATIVE NEGATIVE [facility] SPECIFIC GRAVITY UA 1.005 <=1.005 [facility] PH UA 6.0 5.0 - 9.0 [facility] BILIRUBIN UA NEGATIVE NEGATIVE [facility] LEUKOCYTE ESTERASE UA NEGATIVE NEGATIVE [facility] MICRO EXAM No No [facility] KETONES UA NEGATIVE NEGATIVE [facility] COLOR UA Pale Yellow Straw [facility] PROTEIN UA NEGATIVE NEGATIVE [facility] BLOOD UA NEGATIVE NEGATIVE [facility] Urine specimen (specimen) 05/27/2008 10:56 AM CDT 05/27/2008 10:56 AM CDT us Yusef Malagon MD URINE ORDERABLES Final Result Performing Organization Address City/State/[facility] Co de Phone Number INTERFACE SYSTEM Refer to clinic/hospital department [facility] CLIA# [id number] [address] [place] [address] * CBC WITH DIFFERENTIAL (05/27/2008 10:53 AM CDT) HEMATOCRIT 50.0 41.0 - 53.0 % [facility] PLATELETS 245 140 - 440 K/ul [facility] EOSINOPHILS 3.7 0.0 - 7.0 % [facility] WBC 8.5 4.8 - 10.8 K/ul [facility] EOSINOPHIL ABSOLUTE 0.3 0.0 - 0.7 K/ul [facility] RBC 5.00 4.60 - 6.20 Mil/ul [facility] MCHC 33.0 30.0 - 35.0 g/dL [facility] LYMPHOCYTES 25.7 24.0 - 44.0 % [facility] MONOCYTE ABSOLUTE 0.5 0.1 - 0.6 K/ul [facility] BASOPHILS ABSOLUTE 0.1 0.0 - 0.2 K/ul [facility] MCV 100.0 84.0 - 103.0 Fl [facility] BASOPHILS 0.7 0.0 - 1.0 % [facility] MPV 11.7 8.9 - 12.8 Fl [facility] HEMOGLOBIN 16.5 14.0 - 18.0 g/dL [facility] MONOCYTES 5.8 2.0 - 10.0 % [facility] RDW 14.3 11.0 - 14.5 % [facility] LYMPHOCYTE ABSOLUTE 2.2 1.2 - 4.0 K/ul [facility] NEUTROPHILS 64.1 42.2 - 75.2 % [facility] MCH 33.0 27.0 - 34.0 pg [facility] NEUTROPHIL ABSOLUTE 5.4 2.0 - 8.0 K/ul [facility] Blood specimen (specimen) 05/27/2008 10:53 AM CDT 05/27/2008 11:08 AM CDT us Yusef Malagon MD HEMATOLOGY ORDERABLES Final Re sult Performing Organization Address City/[facility] Co de Phone Number INTERFACE SYSTEM Refer to clinic/hospital department [facility] CLIA# [id number] [address] [place] [address] * ANTIBODY SCREEN (05/27/2008 10:53 AM CDT) ANTIBODY SCREEN Negative [facility] Blood specimen (specimen) 05/27/2008 10:53 AM CDT 05/27/2008 11:08 AM CDT us Yusef Malagon MD BLOOD BANK ORDERABLES Final Re sult Performing Organization Address City/[facility] Co de Phone Number INTERFACE SYSTEM Refer to clinic/hospital department [facility] CLIA# [id number] [address] [place] [address] * ABORH TYPING (05/27/2008 10:53 AM CDT) ABO/RH TYPE O Positive [facility] Blood specimen (specimen) 05/27/2008 10:53 AM CDT 05/27/2008 11:08 AM CDT us Yusef Malagon MD BLOOD BANK ORDERABLES Final Re sult Performing Organization Address [facility] Phone Number INTERFACE SYSTEM Refer to clinic/hospital department [facility] CLIA# [id number] [address] [place] [address] * BASIC METABOLIC PANEL (05/27/2008 10:53 AM CDT) POTASSIUM 4.0 3.5 - 5.0 mEq/L [facility] CO2 29 22 - 32 mmol/l [facility] CHLORIDE 109 95 - 110 mEq/L [facility] OSMOLALITY, CALCULATED 294 275 - 295 mOsm/Kg [facility] CREATININE 1.0 0.7 - 1.5 mg/dL [facility] CALCIUM 9.4 8.4 - 10.5 mg/dL [facility] SODIUM 143 136 - 145 mEq/L [facility] GLUCOSE 88 70 - 110 mg/dL [facility] ANION GAP 9 9 - 20 mEq/L [facility] BUN 16 9 - 20 mg/dL [facility] Blood specimen (specimen) 05/27/2008 10:53 AM CDT 05/27/2008 11:08 AM CDT us Yusef Malagon MD CHEMISTRY ORDERABLES Final Res ult Performing Organization Address [facility] de Phone Number INTERFACE SYSTEM Refer to clinic/hospital department [facility] CLIA# [id number] [address] [place] [address] documented in this encounter Visit Diagnoses Not on filedocumented in this encounter Care Teams Outdoor Studies Professor Relationship Specialty Start Date End Date Roshan Jimenez DO NO ADDRESS ON FILE PCP - General 03/26/03 documented as of this encounter
--- OUTSIDE RECORDS SUMMARY | 2024-11-02 16:27 | XMS_ITS | Encounter Summary ---
Author Organization [facility] Address [address] [place] [address] Care Team Providers Care Inductor Tester Name Role Phone Roshan Jimenez DO Primary Care Provider Unav ailable Encounter Details Date Type Department Care Team (Late st Contact Info) Description 05/17/2008 Outpatient Historical [facility] Yusef Malagon MD NO ADDRESS ON FILE Social History Tobacco Use Types Packs/Day Years Used Date Smoking Tobacco: Every Day Cigarettes 1 40 Alcohol Use Standard Drinks/Week Comments No 0 (1 standard drink = 0.6 oz pur e alcohol) Sex and Gender Information Value Date Recorded Sex Assigned at Not on file 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 Gender Identity Not on file Sexual Orientation Not on file documented as of this encounter Plan of Treatment Not on file documented as of this encounter Procedures Procedure Name Priority Date/Time Associated Diagnosis Comments PROTIME-INR Routine 06/09/2008 4:58 AM CDT PROTIME-INR Routine 06/08/2008 4:50 AM CDT CBC WITH DIFFERENTIAL Routine 06/07/2008 5:35 AM CDT PROTIME-INR Routine 06/07/2008 5:35 AM CDT CBC WITH DIFFERENTIAL Routine 06/06/2008 5:32 AM CDT PROTIME-INR Routine 06/06/2008 5:32 AM CDT BASIC METABOLIC PANEL Routine 06/06/2008 5:32 AM CDT POC GLUCOSE Routine 06/05/2008 3:01 PM CDT XR KNEE 1 OR 2 VW LEFT Routine 06/05/2008 11:12 AM CDT POC GLUCOSE Routine 06/05/2008 11:08 AM CDT TYPE AND CROSSMATCH Stat 06/05/2008 6 :35 AM CDT documented in this encounter Results * (ABNORMAL) PROTIME-INR (06/09/2008 4:58 AM CDT) PROTIME 23.5(H) 12.8 - 15.8 Secs [facility] Comment:As of 2007 not e change in normal range. INR 1.9 [facility] Comment: Expected Values for INR: DVT/PE ?Goal INR 2.5; range 2.0 - 3.0 Valve Replacement ? Tissue ? Goal INR 2.5; range 2.0 - 3.0 ? Mechanical ?Goal INR 3.0; range 2.5 - 3.5 POST-PA ?Goal INR 2.5; range 2.0 - 3.0 ??or Goal 3.0; range 2.5 - 3.5 Atrial Fibrillation ?Goal INR 2.5; range 2.0 - 3.0 Ischemic Stroke ?Goal INR 2.5; range 2.0 - 3.0 For additional information see Guidelines for Anticoagulation available from the pharmacy [facility] ??[phone] Blood specimen (specimen) 06/09/2008 4:58 AM CDT 06/09/2008 5:24 AM CDT us Moiz Barros MD HEMATOLOGY ORDERABLES Fi nal Result Performing Organization Address [facility] de Phone Number INTERFACE SYSTEM Refer to clinic/hospital department [facility] CLIA# [id number] [address] [place] [address] * (ABNORMAL) PROTIME-INR (06/08/2008 4:50 AM CDT) INR 1.5 [facility] Comment: Expected Values for INR: DVT/PE ?Goal INR 2.5; range 2.0 - 3.0 Valve Replacement ? Tissue ? Goal INR 2.5; range 2.0 - 3.0 ? Mechanical ?Goal INR 3.0; range 2.5 - 3.5 POST-PA ?Goal INR 2.5; range 2.0 - 3.0 ??or Goal 3.0; range 2.5 - 3.5 Atrial Fibrillation ?Goal INR 2.5; range 2.0 - 3.0 Ischemic Stroke ?Goal INR 2.5; range 2.0 - 3.0 For additional information see Guidelines for Anticoagulation available from the pharmacy [facility] D. ??[phone] PROTIME 20.0(H) 12.8 - 15.8 Secs [facility] Comment:As of 2007 not e change in normal range. Blood specimen (specimen) 06/08/2008 4:50 AM CDT 06/08/2008 5:18 AM CDT us Moiz Barros MD HEMATOLOGY ORDERABLES Fi nal Result Performing Organization Address [facility] de Phone Number INTERFACE SYSTEM Refer to clinic/hospital department [facility] CLIA# [id number] [address] [place] [address] * (ABNORMAL) CBC WITH DIFFERENTIAL (06/07/2008 5:35 AM CDT) NEUTROPHIL ABSOLUTE 10.9(H) 2.0 - 8.0 K/ul [facility] HEMATOCRIT 40.7(L) 41.0 - 53.0 % [facility] PLATELETS 188 140 - 440 K/ul [facility] EOSINOPHIL ABSOLUTE 0.1 0.0 - 0.7 K/ul [facility] EOSINOPHILS 0.7 0.0 - 7.0 % [facility] RBC 4.15(L) 4.60 - 6.20 Mil/ul [facility] MCHC 32.9 30.0 - 35.0 g/dL [facility] LYMPHOCYTE ABSOLUTE 1.7 1.2 - 4.0 K/ul [facility] LYMPHOCYTES 11.5(L) 24.0 - 44.0 % [facility] MCV 98.1 84.0 - 103.0 Fl [facility] BASOPHILS 0.2 0.0 - 1.0 % [facility] MPV 10.4 8.9 - 12.8 Fl [facility] BASOPHILS ABSOLUTE 0.0 0.0 - 0.2 K/ul [facility] HEMOGLOBIN 13.4(L) 14.0 - 18.0 g/dL [facility] RDW 14.0 11.0 - 14.5 % [facility] MONOCYTES 11.5(H) 2.0 - 10.0 % [facility] MONOCYTE ABSOLUTE 1.7(H) 0.1 - 0.6 K/ul [facility] WBC 14.4(H) 4.8 - 10.8 K/ul [facility] MCH 32.3 27.0 - 34.0 pg [facility] NEUTROPHILS 76.1(H) 42.2 - 75.2 % [facility] Blood specimen (specimen) 06/07/2008 5:35 AM CDT 06/07/2008 5:47 AM CDT us Moiz Barros MD HEMATOLOGY ORDERABLES Fi nal Result Performing Organization Address [facility] de Phone Number INTERFACE SYSTEM Refer to clinic/hospital department [facility] CLIA# [id number] [address] [place] [address] * (ABNORMAL) PROTIME-INR (06/07/2008 5:35 AM CDT) PROTIME 18.6(H) 12.8 - 15.8 Secs [facility] Comment:As of 2007 not e change in normal range. INR 1.4 [facility] Comment: Expected Values for INR: DVT/PE ?Goal INR 2.5; range 2.0 - 3.0 Valve Replacement ? Tissue ? Goal INR 2.5; range 2.0 - 3.0 ? Mechanical ?Goal INR 3.0; range 2.5 - 3.5 POST-PA ?Goal INR 2.5; range 2.0 - 3.0 ??or Goal 3.0; range 2.5 - 3.5 Atrial Fibrillation ?Goal INR 2.5; range 2.0 - 3.0 Ischemic Stroke ?Goal INR 2.5; range 2.0 - 3.0 For additional information see Guidelines for Anticoagulation available from the pharmacy [facility] Pharm D. ??[phone] Blood specimen (specimen) 06/07/2008 5:35 AM CDT 06/07/2008 5:47 AM CDT us Yusef Malagon MD HEMATOLOGY ORDERABLES Final Re sult Performing Organization Address [facility]/ZIP Co de Phone Number INTERFACE SYSTEM Refer to clinic/hospital department [facility] CLIA# [id number] [address] [place] [address] * (ABNORMAL) PROTIME-INR (06/06/2008 5:32 AM CDT) PROTIME 16.3(H) 12.8 - 15.8 Secs [facility] Comment:As of 2007 not e change in normal range. INR 1.2 [facility] Comment: Expected Values for INR: DVT/PE ?Goal INR 2.5; range 2.0 - 3.0 Valve Replacement ? Tissue ? Goal INR 2.5; range 2.0 - 3.0 ? Mechanical ?Goal INR 3.0; range 2.5 - 3.5 POST-PA ?Goal INR 2.5; range 2.0 - 3.0 ??or Goal 3.0; range 2.5 - 3.5 Atrial Fibrillation ?Goal INR 2.5; range 2.0 - 3.0 Ischemic Stroke ?Goal INR 2.5; range 2.0 - 3.0 For additional information see Guidelines for Anticoagulation available from the pharmacy [facility] D. ??[phone] Blood specimen (specimen) 06/06/2008 5:32 AM CDT 06/06/2008 5:54 AM CDT us Yusef Malagon MD HEMATOLOGY ORDERABLES Final Re sult INTERFACE SYSTEM Refer to clinic/hospital department [facility] CLIA# [id number] [address] [place] [address] * (ABNORMAL) CBC WITH DIFFERENTIAL (06/06/2008 5:32 AM CDT) BASOPHILS 0.3 0.0 - 1.0 % [facility] BASOPHILS ABSOLUTE 0.0 0.0 - 0.2 K/ul [facility] HEMATOCRIT 40.4(L) 41.0 - 53.0 % [facility] PLATELETS 217 140 - 440 K/ul [facility] MONOCYTES 11.3(H) 2.0 - 10.0 % [facility] MONOCYTE ABSOLUTE 1.4(H) 0.1 - 0.6 K/ul [facility] RBC 4.12(L) 4.60 - 6.20 Mil/ul [facility] MCHC 32.7 30.0 - 35.0 g/dL [facility] NEUTROPHIL ABSOLUTE 9.3(H) 2.0 - 8.0 K/ul [facility] MCV 98.1 84.0 - 103.0 Fl [facility] MPV 10.9 8.9 - 12.8 Fl [facility] EOSINOPHIL ABSOLUTE 0.1 0.0 - 0.7 K/ul [facility] EOSINOPHILS 0.6 0.0 - 7.0 % [facility] HEMOGLOBIN 13.2(L) 14.0 - 18.0 g/dL [facility] RDW 13.8 11.0 - 14.5 % [facility] LYMPHOCYTE ABSOLUTE 1.7 1.2 - 4.0 K/ul [facility] LYMPHOCYTES 13.7(L) 24.0 - 44.0 % [facility] WBC 12.5(H) 4.8 - 10.8 K/ul [facility] NEUTROPHILS 74.1 42.2 - 75.2 % [facility] MCH 32.0 27.0 - 34.0 pg [facility] Blood specimen (specimen) 06/06/2008 5:32 AM CDT 06/06/2008 5:56 AM CDT us Yusef Malagon MD HEMATOLOGY ORDERABLES Final Re sult Performing Organization Address [facility] Phone Number INTERFACE SYSTEM Refer to clinic/hospital department [facility] CLIA# [id number] [address] [place] [address] * (ABNORMAL) BASIC METABOLIC PANEL (06/06/2008 5:32 AM CDT) SODIUM 137 136 - 145 mEq/L [facility] ANION GAP 9 9 - 20 mEq/L [facility] BUN 13 9 - 20 mg/dL [facility] CO2 26 22 - 32 mmol/l [facility] OSMOLALITY, CALCULATED 283 275 - 295 mOsm/Kg [facility] POTASSIUM 3.7 3.5 - 5.0 mEq/L [facility] CREATININE 0.8 0.7 - 1.5 mg/dL [facility] CALCIUM 8.9 8.4 - 10.5 mg/dL [facility] GLUCOSE 122(H) 70 - 110 mg/dL [facility] CHLORIDE 106 95 - 110 mEq/L [facility] Blood specimen (specimen) 06/06/2008 5:32 AM CDT 06/06/2008 5:56 AM CDT Yusef Malagon MD CHEMISTRY ORDERABLES Final Res ult Performing Organization Address [facility] Phone Number INTERFACE SYSTEM Refer to clinic/hospital department [facility] CLIA# [id number] [address] [place] [address] * (ABNORMAL) POC GLUCOSE (06/05/2008 3:01 PM CDT) GLUCOSE POC 115(H) 60 - 100 mg/dL [facility] Venous blood specimen (specimen) 06/05/2008 3:01 PM CDT 06/05/2008 4:38 PM CDT Yusef Malagon MD POINT OF CARE TESTING Final Re sult Performing Organization Address [facility] Co de Phone Number INTERFACE SYSTEM Refer to clinic/hospital department [facility] CLIA# [id number] [address] [place] [address] * XR KNEE 1 OR 2 VW LEFT (06/05/2008 11:12 AM CDT) Anatomical Region Laterality Modality Lower Extremity Other 06/05/2008 11:1 2 AM CDT Narrative 06/05/2008 12:41 PM CDT Exam: Knee - Left Date/Time of Exam: Jun 05, 2008 11:12:25 AM History: post op. Findings: ??Postop change associated with presence of total left knee prosthesis which appears satisfactorily positioned. Impression: As above. - Dictated By: ??Geovanna Sheriff M.D. Electronically Signed By: ??Geovanna Sheriff M.D. Date Signed: 06/05/08 JAW Procedure Note Geovanna Sheriff MD - 06/05/2008 Exam: Knee - Left Date/Time of Exam: Jun 05, 2008 11:12:25 AM History: post op. Findings: Postop change associated with presence of total left kneeprosthesis which appears satisfactorily positioned. Impression: As above. - Dictated By: Geovanna Sheriff M.D. Electronically Signed By: Geovanna Sheriff M.D. Date Signed: 06/05/08 JAW us Yusef Malagon MD DIAGNOSTIC IMAGING ORDERABLES Final Result * POC GLUCOSE (06/05/2008 11:08 AM CDT) GLUCOSE POC 94 60 - 100 mg/dL [facility] Venous blood specimen (specimen) 06/05/2008 11:08 AM CDT 06/06/2008 7:27 AM CDT us Yusef Malagon MD POINT OF CARE TESTING Final Re sult Performing Organization Address City/[facility]/ZIP Co de Phone Number INTERFACE SYSTEM Refer to clinic/hospital department [facility] CLIA# [id number] [facility] [place] [address] * TYPE AND CROSSMATCH (06/05/2008 6:35 AM CDT) BLOOD BANK PRODUCT INTERFACE SYSTEM Blood specimen (specimen) 06/05/2008 6:35 AM CDT 06/05/2008 6:35 AM CDT us Ysuef Malagon MD BLOOD BANK ORDERABLES Final Re sult INTERFACE SYSTEM Refer to clinic/hospital department documented in this encounter Visit Diagnoses Not on filedocumented in this encounter Care Teams Inductor Tester Relationship Specialty Start Date End Date Roshan Jimenez DO NO ADDRESS ON FILE PCP - General 03/26/03 documented as of this encounter
--- OUTSIDE RECORDS SUMMARY | 2024-11-02 16:27 | XMS_ITS | Encounter Summary ---
Author Organization [facility] Address [address] [place] [address] Care Team Providers Care Train Operator Name Role Phone Roshan Jimenez DO Primary Care Provider Unav ailable Encounter Details Date Type Department Care Team (Latest Contact Info) Description 02/17/2006 Outpatient [facility] [address] [place] [address] Roshan Jimenez DO NO ADDRESS ON FILE Viral Infection (Primary Dx); Unspecified Essential Hypertension; Unspecified Chronic Bronchitis (CMS/HCC); Impacted Cerumen Social History Tobacco Use Types Packs/Day Years Used Date Smoking Tobacco: Never Assessed Sex and Gender Information Value Date Recorded Sex Assigned at Not on file 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
--- OUTSIDE RECORDS SUMMARY | 2024-11-02 16:27 | XMS_ITS | Encounter Summary ---
Author Organization [facility] Address [address] [place] [address] Care Team Providers Care Rn Night Name Role Phone Roshan Jimenez DO Primary Care Provider Unav ailable Encounter Details Date Type Department Care Team (Latest Contact Info) Description 02/10/2004 Outpatient [facility] [address] [place] [address] Roshan Jimenez DO NO ADDRESS ON FILE CHRONIC AIRWAY OBSTRUCTION NEC ([facility]) (Primary Dx); HYPERTENSION NOS; OBESITY NOS; OSTEOARTHROS NOS-UNSPEC Social History Tobacco Use Types Packs/Day Years Used Date Smoking Tobacco: Never Assessed Sex and Gender Information Value Date Recorded Sex Assigned at Not on file 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 Gender Identity Not on file Sexual Orientation Not on file documented as of this encounter Plan of Treatment Not on file documented as of this encounter Visit Diagnoses Diagnosis Chronic airway obstruction, not elsewhere classified ([facility])- Primary Chronic airway obstruction, not elsewhere classified Unspecified essential hypertension Obesity, unspecified Osteoarthrosis, unspecified whether generalized or localized, unspecified site documented in this encounter Care Teams Rn Night Relationship Specialty Start Date End Date Roshan Jimenez DO NO ADDRESS ON FILE PCP - General 03/26/03 documented as of this encounter
--- OUTSIDE RECORDS SUMMARY | 2024-11-02 16:27 | XMS_ITS | Encounter Summary ---
Author Organization [facility] Address [address] [place] [address] Care Team Providers Care Size Worker Name Role Phone Roshan Jimenez DO Primary Care Provider Unav ailable Encounter Details Date Type Department Care Team (Latest Contact Info) Description 12/23/1998 Outpatient Historical [facility] [address] [place] [id number] Roshan Jimenez DO NO ADDRESS ON FILE Chronic airway obstruction, not elsewhere classified (CMS/HCC) (Primary Dx); Unspecified essential hypertension; Osteoarthrosis, unspecified whether generalized or localized, unspecified site Social History Tobacco Use Types Packs/Day Years Used Date Smoking Tobacco: Never Assessed Sex and Gender Information Value Date Recorded Sex Assigned at Not on file 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 Gender Identity Not on file Sexual Orientation Not on file documented as of this encounter Plan of Treatment Not on file documented as of this encounter Visit Diagnoses Diagnosis Chronic airway obstruction, not elsewhere classified (CMS/HCC)- Primary Chronic airway obstruction, not elsewhere classified Unspecified essential hypertension Osteoarthrosis, unspecified whether generalized or localized, unspecified site documented in this encounter Care Teams Size Worker Relationship Specialty Start Date End Date Roshan Jimenez DO NO ADDRESS ON FILE PCP - General 03/26/03 documented as of this encounter
--- OUTSIDE RECORDS SUMMARY | 2024-11-02 16:27 | XMS_ITS | Encounter Summary ---
Author Organization [facility] Address [address] [place] [address] Care Team Providers Care Equip Maint Eng Name Role Phone Roshan Jimenez DO Primary Care Provider Unav ailable Encounter Details Date Type Department Care Team (Latest Contact Info) Description 06/23/1999 Outpatient [facility] [address] [place] [address] Roshan Jimenez DO NO ADDRESS ON FILE Unspecified essential hypertension (Primary Dx); Reflux esophagitis; Obesity, unspecified; Chronic airway obstruction, not elsewhere classified (CMS/HCC) Social History Tobacco Use Types Packs/Day Years Used Date Smoking Tobacco: Never Assessed Sex and Gender Information Value Date Recorded Sex Assigned at Not on file 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
--- OUTSIDE RECORDS SUMMARY | 2024-11-02 16:27 | XMS_ITS | Encounter Summary ---
Author Organization [facility] Address [address] [place] [address] Care Team Providers Care Property Damage Claims Adjustor Name Role Phone Roshan Jimenez DO Primary Care Provider Unav ailable Encounter Details Date Type Department Care Team (Latest Contact Info) Description 11/30/2006 Outpatient Historical [facility] Ear, Nose and Throat E [place] 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
--- OUTSIDE RECORDS SUMMARY | 2024-11-02 16:27 | XMS_ITS | Encounter Summary ---
Author Organization [facility] Address [address] [place] [address] Care Team Providers Care Special Event Assistant Name Role Phone Roshan Jimenez DO Primary Care Provider Unav ailable Encounter Details Date Type Department Care Team (Latest Contact Info) Description 08/09/2004 Outpatient [facility] [address] [place] [address] Roshan Jimenez DO NO ADDRESS ON FILE CHRONIC AIRWAY OBSTRUCTION NEC ([facility]) (Primary Dx); REFLUX ESOPHAGITIS; HYPERTENSION NOS Social History Tobacco Use Types Packs/Day Years Used Date Smoking Tobacco: Never Assessed Sex and Gender Information Value Date Recorded Sex Assigned at Not on file 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
--- OUTSIDE RECORDS SUMMARY | 2024-11-02 16:27 | XMS_ITS | Encounter Summary ---
Author Organization [facility] Address [address] [place] [address] Care Team Providers Care Sow Farm Technician Name Role Phone Roshan Jimenez DO Primary Care Provider Unav ailable Encounter Details Date Type Department Care Team (Latest Contact Info) Description 04/13/1998 Outpatient [facility] [address] [place] [address] Roshan Jimenez DO NO ADDRESS ON FILE Obstructive chronic bronchitis with exacerbation (CMS/HCC) (Primary Dx); Malaise and fatigue; Tobacco use disorder; Unspecified essential hypertension; Acute bronchitis Social History Tobacco Use Types Packs/Day Years Used Date Smoking Tobacco: Never Assessed Sex and Gender Information Value Date Recorded Sex Assigned at Not on file 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
--- OUTSIDE RECORDS SUMMARY | 2024-11-02 16:27 | XMS_ITS | Encounter Summary ---
Author Organization [facility] Address [address] [place] [address] Care Team Providers Care Client Development Manager Name Role Phone Roshan Jimenez DO Primary Care Provider Unav ailable Encounter Details Date Type Department Care Team (Latest Contact Info) Description 08/05/2003 Outpatient [facility] [address] [place] [address] Roshan Jimenez DO NO ADDRESS ON FILE HYPERTENSION NOS (Primary Dx); CHRONIC AIRWAY OBSTRUCTION NEC (CMS/HCC); UNSPECIFIED VIRAL INFECTION Social History Tobacco Use Types Packs/Day Years Used Date Smoking Tobacco: Never Assessed Sex and Gender Information Value Date Recorded Sex Assigned at Not on file 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 Gender Identity Not on file Sexual Orientation Not on file documented as of this encounter Plan of Treatment Not on file documented as of this encounter Visit Diagnoses Diagnosis Unspecified essential hypertension- Primary Chronic airway obstruction, not elsewhere classified (CMS/HCC) Chronic airway obstruction, not elsewhere classified Unspecified viral infection, in conditions classified elsewhere and of unspecified site documented in this encounter Care Teams Client Development Manager Relationship Specialty Start Date End Date Roshan Jimenez DO NO ADDRESS ON FILE PCP - General 03/26/03 documented as of this encounter
--- OUTSIDE RECORDS SUMMARY | 2024-11-02 16:27 | XMS_ITS | Encounter Summary ---
Author Organization [facility] Address [address] [place] [address] Care Team Providers Care Dough Cutter Name Role Phone Roshan Jimenez DO Primary Care Provider Unav ailable Encounter Details Date Type Department Care Team (Latest Contact Info) Description 04/20/1998 Outpatient [facility] [address] [place] [address] Roshan Jimenez DO NO ADDRESS ON FILE Acute bronchitis (Primary Dx); Obstructive chronic bronchitis with exacerbation (CMS/HCC); Tobacco use disorder; Edema Social History Tobacco Use Types Packs/Day Years Used Date Smoking Tobacco: Never Assessed Sex and Gender Information Value Date Recorded Sex Assigned at Not on file 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
--- OUTSIDE RECORDS SUMMARY | 2024-11-02 16:27 | XMS_ITS | Encounter Summary ---
Author Organization [facility] Address [address] [place] [address] Care Team Providers Care Compensation Vice President Name Role Phone Roshan Jimenez DO Primary Care Provider Unav ailable Encounter Details Date Type Department Care Team (Latest Contact Info) Description 07/13/2005 Outpatient [facility] [address] [place] [phone] Roshan Jimenez DO NO ADDRESS ON FILE ASTHMA UNSPECIFIED (Primary Dx); CHRONIC AIRWAY OBSTRUCTION NEC (CMS/[facility]); OBESITY NOS; VACCINE FOR STREP PNEUMONIAE Social History Tobacco Use Types Packs/Day Years Used Date Smoking Tobacco: Never Assessed Sex and Gender Information Value Date Recorded Sex Assigned at Not on file 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 Gender Identity Not on file Sexual Orientation Not on file documented as of this encounter Plan of Treatment Not on file documented as of this encounter Visit Diagnoses Diagnosis Unspecified asthma(493.90)- Primary Unspecified asthma Chronic airway obstruction, not elsewhere classified (CMS/HCC) Chronic airway obstruction, not elsewhere classified Obesity, unspecified Need for prophylactic vaccination against Streptococcus pneumoniae (pneumococcus) Need for prophylactic vaccination against streptococcus pneumoniae (pneumococcus) documented in this encounter Care Teams Compensation Vice President Relationship Specialty Start Date End Date Roshan Jimenez DO NO ADDRESS ON FILE PCP - General 03/26/03 documented as of this encounter
--- OUTSIDE RECORDS SUMMARY | 2024-11-02 16:27 | XMS_ITS | Continuity of Care Document ---
Author Name [facility] Address [address] [place] [address] Organization [facility] Care Team Providers Care Latin Professor Name Role Phone [facility] Unavailable Unavailable Problems Problem Status Onset [...]
--- OUTSIDE RECORDS SUMMARY | 2024-11-02 16:27 | XMS_ITS | Encounter Summary ---
Author Organization [facility] Address [address] [place] [address] Care Team Providers Care Violin Repairer Name Role Phone Roshan Jimenez DO Primary Care Provider Unav ailable Encounter Details Date Type Department Care Team (Latest Contact Info) Description 11/27/2002 Outpatient [facility] Podiatry-[facility] Bal Aaron [address] [place] [address] Noé Rosa, DPM [address] [place] [address] Onychia of toe (Primary Dx); INGROWING NAIL Social History Tobacco Use Types Packs/Day Years Used Date Smoking Tobacco: Never Assessed Sex and Gender Information Value Date Recorded Sex Assigned at Not on file 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
--- OUTSIDE RECORDS SUMMARY | 2024-11-02 16:27 | XMS_ITS | Encounter Summary ---
Author Organization [facility] Address [address] [place] [address] Care Team Providers Care Template Worker Name Role Phone Roshan Jimenez DO Primary Care Provider Unav ailable Encounter Details Date Type Department Care Team (Latest Contact Info) Description 12/23/1999 Outpatient [facility] [address] [place] [address] Roshan Jimenez DO NO ADDRESS ON FILE Unspecified essential hypertension (Primary Dx); Allergic rhinitis, cause unspecified; Chronic airway obstruction, not elsewhere classified (CMS/HCC); Obesity, unspecified Social History Tobacco Use Types Packs/Day Years Used Date Smoking Tobacco: Never Assessed Sex and Gender Information Value Date Recorded Sex Assigned at Not on file 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
--- OUTSIDE RECORDS SUMMARY | 2024-11-02 16:27 | XMS_ITS | Encounter Summary ---
Author Organization [facility] Address [address] [place] [address] Care Team Providers Care Corrosion Prevention Metal Sprayer Name Role Phone Roshan Jimenez DO Primary Care Provider Unav ailable Encounter Details Date Type Department Care Team (Latest Contact Info) Description 05/20/1998 Outpatient [facility] [address] [place] [address] Roshan Jimenez DO NO ADDRESS ON FILE Unspecified essential hypertension (Primary Dx); Obstructive chronic bronchitis without exacerbation (CMS/HCC); Depressive type psychosis; Abdominal pain, unspecified site Social History Tobacco Use Types Packs/Day Years Used Date Smoking Tobacco: Never Assessed Sex and Gender Information Value Date Recorded Sex Assigned at Not on file 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 Gender Identity Not on file Sexual Orientation Not on file documented as of this encounter Plan of Treatment Not on file documented as of this encounter Visit Diagnoses Diagnosis Unspecified essential hypertension- Primary Obstructive chronic bronchitis without exacerbation (CMS/HCC) Obstructive chronic bronchitis without exacerbation Depressive type psychosis Abdominal pain, unspecified site documented in this encounter Care Teams Corrosion Prevention Metal Sprayer Relationship Specialty Start Date End Date Roshan Jimenez DO NO ADDRESS ON FILE PCP - General 03/26/03 documented as of this encounter
--- OUTSIDE RECORDS SUMMARY | 2024-11-02 16:27 | XMS_ITS | Encounter Summary ---
Author Organization [facility] Address [address] [place] [address] Care Team Providers Care Poundmaster Name Role Phone Roshan Jimenez DO Primary Care Provider Unav ailable Encounter Details Date Type Department Care Team (Latest Contact Info) Description 12/22/1999 Outpatient Historical [facility] Axel Armstrong NO ADDRESS ON FILE Localized osteoarthrosis not specified whether primary or secondary, lower leg (Primary Dx); Pain in joint, lower leg Social History Tobacco Use Types Packs/Day Years Used Date Smoking Tobacco: Never Assessed Sex and Gender Information Value Date Recorded Sex Assigned at Not on file 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
--- OUTSIDE RECORDS SUMMARY | 2024-11-02 16:27 | XMS_ITS | Encounter Summary ---
Author Organization [facility] Address [address] [place] [address] Care Team Providers Care Manager Six Sigma Name Role Phone Roshan Jimenez DO Primary Care Provider Unav ailable Encounter Details Date Type Department Care Team (Latest Contact Info) Description 01/08/1999 Outpatient Historical [facility] Podiatry-Stevo Bal [address] [place] [address] Noé Rosa, DPM [address] [place] [address] Ingrowing nail (Primary Dx) Social History Tobacco Use Types Packs/Day Years Used Date Smoking Tobacco: Never Assessed Sex and Gender Information Value Date Recorded Sex Assigned at Not on file 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
--- OUTSIDE RECORDS SUMMARY | 2024-11-02 16:27 | XMS_ITS | Encounter Summary ---
Author Organization [facility] Address [address] [place] [address] Care Team Providers Care Helpdesk Administrator Name Role Phone Roshan Jimenez DO Primary Care Provider Unav ailable Encounter Details Date Type Department Care Team (Latest Contact Info) Description 12/23/1998 Outpatient Historical [facility] Axel Armstrong NO ADDRESS ON FILE Localized osteoarthrosis not specified whether primary or secondary, lower leg (Primary Dx) Social History Tobacco Use Types Packs/Day Years Used Date Smoking Tobacco: Never Assessed Sex and Gender Information Value Date Recorded Sex Assigned at Not on file 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
--- OUTSIDE RECORDS SUMMARY | 2024-11-02 16:27 | XMS_ITS | Encounter Summary ---
Author Organization [facility] Address [address] [place] [address] Care Team Providers Care Instrument Specialist Name Role Phone Roshan Jimenez DO Primary Care Provider Unav ailable Encounter Details Date Type Department Care Team (Latest Contact Info) Description 03/26/2003 Outpatient Historical [facility] G[facility]- [place] [address] [address] Demetri Chávez MD [address] [facility] [address] [place] [address] SCREENING MAL NEOP-COLON (Primary Dx) Social History Tobacco Use Types Packs/Day Years Used Date Smoking Tobacco: Never Assessed Sex and Gender Information Value Date Recorded Sex Assigned at Not on file 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
--- OUTSIDE RECORDS SUMMARY | 2024-11-02 16:27 | XMS_ITS | Encounter Summary ---
Author Organization [facility] Address [address] [place] [address] Care Team Providers Care Underground Foreman Name Role Phone Roshan Jimenez DO Primary Care Provider Unav ailable Encounter Details Date Type Department Care Team (Latest Contact Info) Description 01/01/2007 Outpatient Historical [facility] Ear, Nose and Throat [address] 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
--- OUTSIDE RECORDS SUMMARY | 2024-11-02 16:27 | XMS_ITS | Encounter Summary ---
Author Organization [facility] Address [address] [place] [address] Care Team Providers Care Team Lead Name Role Phone Roshan Jimenez DO Primary Care Provider Unav ailable Encounter Details Date Type Department Care Team (Latest Contact Info) Description 11/16/2006 Outpatient Historical [facility] Ear, Nose and Throat E [place] 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
--- OUTSIDE RECORDS SUMMARY | 2024-11-02 16:27 | XMS_ITS | Encounter Summary ---
Author Organization [facility] Address [address] [place] [address] Care Team Providers Care Flatbed Owner Operator Name Role Phone Roshan Jimenez DO Primary Care Provider Unav ailable Encounter Details Date Type Department Care Team (Latest Contact Info) Description 09/17/1998 Outpatient [facility] [address] [place] [address] Roshan Jimenez DO NO ADDRESS ON FILE Unspecified essential hypertension (Primary Dx); Obesity, unspecified; Obstructive chronic bronchitis without exacerbation (CMS/HCC); Reflux esophagitis Social History Tobacco Use Types Packs/Day Years Used Date Smoking Tobacco: Never Assessed Sex and Gender Information Value Date Recorded Sex Assigned at Not on file 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
--- OUTSIDE RECORDS SUMMARY | 2024-11-02 16:27 | XMS_ITS | Encounter Summary ---
Author Organization [facility] Address [address] [place] [address] Care Team Providers Care Radial Drill Press Set Up Operator Name Role Phone Roshan Jimenez DO Primary Care Provider Unav ailable Encounter Details Date Type Department Care Team (Latest Contact Info) Description 04/03/2007 Outpatient [facility] [address] [place] [address] Roshan Jimenez DO NO ADDRESS ON FILE Unspecified Essential Hypertension (Primary Dx); Other Apnea of ; Obesity, Unspecified Social History Tobacco Use Types Packs/Day Years Used Date Smoking Tobacco: Never Assessed Sex and Gender Information Value Date Recorded Sex Assigned at Not on file 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
--- OUTSIDE RECORDS SUMMARY | 2024-11-02 16:27 | XMS_ITS | Encounter Summary ---
Author Organization [facility] Address [address] [place] [address] Care Team Providers Care Paper And Prints Restorer Name Role Phone Roshan Jimenez DO Primary Care Provider Unav ailable Encounter Details Date Type Department Care Team (Latest Contact Info) Description 11/01/2006 Outpatient Historical [facility] [address] [place] [address] John Black MD NO ADDRESS ON FILE Pre-Operative Cardiovascular Examination (Primary Dx) Social History Tobacco Use Types Packs/Day Years Used Date Smoking Tobacco: Never Assessed Sex and Gender Information Value Date Recorded Sex Assigned at Not on file Legal Sex Male 4:59 AM CARE ANALYST Gender Identity Not on file Sexual Orientation Not on file documented as of this encounter Plan of Treatment Not on file documented as of this encounter Procedures Procedure Name Priority Date/Time Associated Diagnosis Comments COMPREHENSIVE METABOLIC PANEL Routine 11/01/2006 10:35 AM CARE ANALYST XR CHEST PA OR AP 1 VW Routine 7 10:09 AM CARE ANALYST documented in this encounter Results * (ABNORMAL) COMPREHENSIVE METABOLIC PANEL (11/01/2006 10:35 AM CARE ANALYST) GLUCOSE 99 70 - 110 mg/dL INTERFACE SYSTEM BUN 15 9 - 20 mg/dL INTERFACE SYSTEM CREATININE 1.0 0.7 - 1.5 mg/dL INTERFACE SYSTEM SODIUM 138 136 - 145 mEq/L INTERFACE SYSTEM POTASSIUM 3.9 3.5 - 5.0 mEq/L INTERFACE SYSTEM CHLORIDE 108 95 - 110 mEq/L INTERFACE SYSTEM CO2 25 22 - 32 mmol/l INTERFACE SYSTEM CALCIUM 9.2 8.4 - 10.5 mg/dL INTERFACE SYSTEM TOTAL PROTEIN 7.5 6.3 - 8.2 g/dL INTERFACE SYSTEM ALBUMIN 4.1 3.5 - 5.0 g/dL INTERFACE SYSTEM ALKALINE PHOSPHATASE 118(H) 25 - 100 U/L INTERFACE SYSTEM AST 20 8 - 33 U/L INTERFACE SYSTEM ALT 34 4 - 36 IU/L INTERFACE SYSTEM BILIRUBIN TOTAL 0.4 0.3 - 1.2 mg/dL INTERFACE SYSTEM GLOBULIN (CALC) 3.4 2.4 - 3.9 g/dL INTERFACE SYSTEM ALBUMIN/GLOBULIN RATIO 1.2 1.0 - 2.3 INTERFACE SYSTEM ANION GAP 9 9 - 20 mEq/L INTERFACE SYSTEM OSMOLALITY, CALCULATED 285 275 - 295 mOsm/Kg INTERFACE SYSTEM 11/01/2006 10:3 5 AM CARE ANALYST John Black MD CHEMISTRY ORDERABLES Edited INTERFACE SYSTEM Refer to clinic/hospital department * XR CHEST PA OR AP (11/01/2006 10:09 AM CARE ANALYST) Anatomical Region Laterality Modality Chest Other 11/01/2006 10:0 9 AM CARE ANALYST Narrative 11/01/2006 10:09 AM CARE ANALYST PA CHEST: 11/01/2006Chronic appearing accentuated bronchovascular markings of the parahilar regions. Cardiac silhouettewithin normal limits. IMPRESSION: No apparent acute disease. - Dictated By: ??Geovanna Sheriff M.D. Electronically Signed By: ??Geovanna Sheriff M.D. Date Signed: 11/01/06 Procedure Note 07/17/2009 PA CHEST: 11/01/2006Chronic appearing accentuated bronchovascular markings of theparahilar regions. Cardiac silhouettewithin normal limits. IMPRESSION: No apparent acute disease. - Dictated By: Geovanna Sheriff M.D. Electronically Signed By: Geovanna Sheriff M.D. Date Signed: 11/01/06 John Black MD DIAGNOSTIC IMAGING ORDERABLES Final Result documented in this encounter Visit Diagnoses Diagnosis Pre-operative cardiovascular examination- Primary documented in this encounter Care Teams Paper And Prints Restorer Relationship Specialty Start Date End Date Roshan Jimenez DO NO ADDRESS ON FILE PCP - General 03/26/03 documented as of this encounter
--- OUTSIDE RECORDS SUMMARY | 2024-11-02 16:27 | XMS_ITS | Encounter Summary ---
Author Organization [facility] Address [address] [place] [address] Care Team Providers Care Banquet Supervisor Name Role Phone Roshan Jimenez DO Primary Care Provider Unav ailable Encounter Details Date Type Department Care Team (Latest Contact Info) Description 12/11/[address] 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
--- OUTSIDE RECORDS SUMMARY | 2024-11-02 16:27 | XMS_ITS | Encounter Summary ---
Author Organization [facility] Address [address] [place] [address] Care Team Providers Care Career Development Manager Name Role Phone Roshan Jimenez DO Primary Care Provider Unav ailable Encounter Details Date Type Department Care Team (Latest Contact Info) Description 04/18/2005 Outpatient [facility] [address] [place] [address] Roshan Jimenez DO NO ADDRESS ON FILE MORBID OBESITY ([facility]) (Primary Dx); SLEEP APNEA NOS; EDEMA; ASTHMA UNSPECIFIED Social History Tobacco Use Types Packs/Day Years Used Date Smoking Tobacco: Never Assessed Sex and Gender Information Value Date Recorded Sex Assigned at Not on file 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
--- OUTSIDE RECORDS SUMMARY | 2024-11-02 16:27 | XMS_ITS | Encounter Summary ---
Author Organization [facility] Address [address] [place] [address] Care Team Providers Care Post Partum Nurse Name Role Phone Roshan Jimenez DO Primary Care Provider Unav ailable Encounter Details Date Type Department Care Team (Latest Contact Info) Description 12/23/1998 Outpatient Historical [facility] Podiatry-Stevo Bal Aaron [address] [place] [address] Noé Rosa, DPM [address] [place] [address] Ingrowing nail (Primary Dx); Dermatophytosis of nail Social History Tobacco Use Types Packs/Day Years Used Date Smoking Tobacco: Never Assessed Sex and Gender Information Value Date Recorded Sex Assigned at Not on file 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
--- OUTSIDE RECORDS SUMMARY | 2024-11-02 16:27 | XMS_ITS | Encounter Summary ---
Author Organization [facility] Address [address] [place] [address] Care Team Providers Care Corrections Identification Technician Name Role Phone Roshan Jimenez DO Primary Care Provider Unav ailable Encounter Details Date Type Department Care Team (Latest Contact Info) Description 04/29/2005 Outpatient Historical [facility] [address] [place] [address] [place] [id number] Merlin Reilly MD NO ADDRESS ON FILE HYPERSOMNIA W SLEEP APNEA NOS (Primary Dx) Social History Tobacco Use Types Packs/Day Years Used Date Smoking Tobacco: Never Assessed Sex and Gender Information Value Date Recorded Sex Assigned at Not on file 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
--- OUTSIDE RECORDS SUMMARY | 2024-11-02 16:27 | XMS_ITS | Encounter Summary ---
Author Organization [facility] Address [address] [place] [address] Care Team Providers Care Towel Inspector Name Role Phone Roshan Jimenez DO Primary Care Provider Unav ailable Encounter Details Date Type Department Care Team (Latest Contact Info) Description 07/17/2006 Outpatient [facility] [address] [place] [address] Roshan Jimenez DO NO ADDRESS ON FILE Unspecified Essential Hypertension (Primary Dx); Unspecified Asthma; Depressive Disorder, not Elsewhere Classified Social History Tobacco Use Types Packs/Day Years Used Date Smoking Tobacco: Never Assessed Sex and Gender Information Value Date Recorded Sex Assigned at Not on file 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
--- OUTSIDE RECORDS SUMMARY | 2024-11-02 16:27 | XMS_ITS | Encounter Summary ---
Author Organization [facility] Address [address] [place] [address] Care Team Providers Care Culinary Chef Name Role Phone Roshan Jimenez DO Primary Care Provider Unav ailable Encounter Details Date Type Department Care Team (Latest Contact Info) Description 10/20/2006 Outpatient Historical [facility] [address] [place] [address] [place] [id number] Merlin Reilly MD NO ADDRESS ON FILE Obstructive Sleep Apnea (Primary Dx) Social History Tobacco Use Types Packs/Day Years Used Date Smoking Tobacco: Never Assessed Sex and Gender Information Value Date Recorded Sex Assigned at Not on file 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
--- OUTSIDE RECORDS SUMMARY | 2024-11-02 16:27 | XMS_ITS | Encounter Summary ---
Author Organization [facility] Address [address] [place] [address] Care Team Providers Care Clerical Secretary Name Role Phone Roshan Jimenez DO Primary Care Provider Unav ailable Encounter Details Date Type Department Care Team (Latest Contact Info) Description 02/20/2007 Outpatient [facility] [address] [place] [address] Roshan Jimenez DO NO ADDRESS ON FILE Chronic Airway Obstruction, not Elsewhere Classified (CMS/HCC) (Primary Dx); Unspecified Asthma; Obesity, Unspecified; Tobacco Use Disorder Social History Tobacco Use Types Packs/Day Years Used Date Smoking Tobacco: Never Assessed Sex and Gender Information Value Date Recorded Sex Assigned at Not on file 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
--- OUTSIDE RECORDS SUMMARY | 2024-11-02 16:27 | XMS_ITS | Encounter Summary ---
Author Organization [facility] Address [address] [place] [address] Care Team Providers Care Drupal Architect Name Role Phone Roshan Jimenez DO Primary Care Provider Unav ailable Encounter Details Date Type Department Care Team (Latest Contact Info) Description 11/11/2003 Outpatient [facility] Podiatry-Stevo Bal Aaron [address] [place] [address] Noé Rosa, DPM [address] [place] [address] Onychia of toe (Primary Dx); INGROWING NAIL Social History Tobacco Use Types Packs/Day Years Used Date Smoking Tobacco: Never Assessed Sex and Gender Information Value Date Recorded Sex Assigned at Not on file 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
--- OUTSIDE RECORDS SUMMARY | 2024-11-02 16:27 | XMS_ITS | Encounter Summary ---
Author Organization [facility] Address [address] [place] [address] Care Team Providers Care City Maintenance Manager Name Role Phone Roshan Jimenez DO Primary Care Provider Unav ailable Encounter Details Date Type Department Care Team (Latest Contact Info) Description 10/24/2006 Outpatient [facility] 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
--- OUTSIDE RECORDS SUMMARY | 2024-11-02 16:27 | XMS_ITS | Encounter Summary ---
Author Organization [facility] Address [address] [place] [address] Care Team Providers Care Document Control Clerk Name Role Phone Roshan Jimenez DO Primary Care Provider Unav ailable Encounter Details Date Type Department Care Team (Latest Contact Info) Description 12/31/1997 Outpatient Historical [facility] Axel Armstrong NO ADDRESS ON FILE Localized osteoarthrosis not specified whether primary or secondary, lower leg (Primary Dx) Social History Tobacco Use Types Packs/Day Years Used Date Smoking Tobacco: Never Assessed Sex and Gender Information Value Date Recorded Sex Assigned at Not on file 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
--- OUTSIDE RECORDS SUMMARY | 2024-11-02 16:27 | XMS_ITS | Encounter Summary ---
Author Organization 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
--- OUTSIDE RECORDS SUMMARY | 2024-11-02 16:27 | XMS_ITS | Encounter Summary ---
Author Organization [facility] Address [address] [place] [address] Care Team Providers Care Broom Bundler Name Role Phone Roshan Jimenez DO Primary Care Provider Unav ailable Encounter Details Date Type Department Care Team (Latest Contact Info) Description 06/19/1998 Outpatient [facility] [address] [place] [address] Roshan Jimenez DO NO ADDRESS ON FILE Obstructive chronic bronchitis without exacerbation (CMS/HCC) (Primary Dx); Tobacco use disorder; Obesity, unspecified; Unspecified essential hypertension Social History Tobacco Use Types Packs/Day Years Used Date Smoking Tobacco: Never Assessed Sex and Gender Information Value Date Recorded Sex Assigned at Not on file 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
--- OUTSIDE RECORDS SUMMARY | 2024-11-02 16:27 | XMS_ITS | Encounter Summary ---
Author Organization [facility] Address [address] [place] [address] Care Team Providers Care Wildlife Forensic Geneticist Name Role Phone Roshan Jimenez DO Primary Care Provider Unav ailable Encounter Details Date Type Department Care Team (Latest Contact Info) Description 11/25/2003 Outpatient Historical [facility] Podiatry-Stevo Bal Aaron [address] [place] [address] Noé Rosa, DPM [address] [place] [address] Onychia of toe (Primary Dx); INGROWING NAIL Social History Tobacco Use Types Packs/Day Years Used Date Smoking Tobacco: Never Assessed Sex and Gender Information Value Date Recorded Sex Assigned at Not on file 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
--- OUTSIDE RECORDS SUMMARY | 2024-11-02 16:27 | XMS_ITS | Encounter Summary ---
Author Organization [facility] [facility] Address [address] [place] [address] Care Team Providers Care Shipwright Helper Name Role Phone Roshan Jimenez DO Primary Care Provider Unav ailable Encounter Details Date Type Department Care Team (Latest Contact Info) Description 06/24/1998 Outpatient Historical [facility] Axel Armstrong NO ADDRESS ON FILE Localized osteoarthrosis not specified whether primary or secondary, lower leg (Primary Dx) Social History Tobacco Use Types Packs/Day Years Used Date Smoking Tobacco: Never Assessed Sex and Gender Information Value Date Recorded Sex Assigned at Not on file 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
--- OUTSIDE RECORDS SUMMARY | 2024-11-02 16:27 | XMS_ITS | Encounter Summary ---
Author Organization [facility] Address [address] [place] [address] Care Team Providers Care Perl Programmer Name Role Phone Roshan Jimenez DO Primary Care Provider Unav ailable Encounter Details Date Type Department Care Team (Latest Contact Info) Description 01/22/1999 Outpatient Historical [facility] Aaron [address] [place] [address] Noé Rosa, DPM [address] [place] [address] Ingrowing nail (Primary Dx) Social History Tobacco Use Types Packs/Day Years Used Date Smoking Tobacco: Never Assessed Sex and Gender Information Value Date Recorded Sex Assigned at Not on file 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
[2024-11-02] MEDS: vancomycin 1,500 MG/300 ML PIGGYBACK 200 MG IV (16:28)
--- OUTSIDE RECORDS SUMMARY | 2024-11-02 16:28 | XMS_ITS | Encounter Summary ---
Author Organization [facility] Address [address] [facility] Attn: [place] [address] Care Team Providers Care Seafood Farmer Name Role Phone Roshan Jimenez DO Primary Care Provider Unav ailable Encounter Details Date Type Department Care Team (Late st Contact Info) Description 04/02/2000 Outpatient Historical Roshan Jimenez DO NO ADDRESS ON FILE Social History Tobacco Use Types Packs/Day Years Used Date Smoking Tobacco: Never Assessed Sex and Gender Information Value Date Recorded Sex Assigned at Not on file 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
--- OUTSIDE RECORDS SUMMARY | 2024-11-02 16:28 | XMS_ITS | Encounter Summary ---
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
--- OUTSIDE RECORDS SUMMARY | 2024-11-02 16:28 | XMS_ITS | Clinical Summary ---
Author Organization [facility] Stevo melo [facility] Address [address] [place] [address] Phone Care Team Providers Care Blocker Automatic Name Role Phone Unavailable Primary Care Provider Unavailabl e Allergies No known active allergies Medications fluticasone-umec lidinium-vilante rol (Trelegy Ellipta) 200-62.5-25 mcg Disk with DeviceIndication s:COPD with exacerbation (CMS/HCC) Take 1 Puff by inhalation daily. 60 Each 11 09/29/19 24 Active omeprazole (PriLOSEC) 20 mg Capsule, Delayed Release(E.C.)Ind ications:Gastroe sophageal reflux disease without esophagitis Take 1 Capsule (20 mg) by mouth daily. 90 Capsule 3 09/29/19 24 Active ferrous sulfate (FeroSuL) 325 mg (65 mg iron) tabletIndication s:Other iron deficiency anemia TAKE 1 TABLET BY MOUTH TWICE A DAY 180 Tablet 1 09/29/19 24 Active furosemide (LASIX) 80 mg tabletIndication s:Essential hypertension,Dep endent edema Take 1 Tablet (80 mg) by mouth 1 time daily as needed (edema). 90 Tablet 1 09/29/19 24 Active gabapentin (NEURONTIN) 300 mg capsuleIndicatio ns:Neuroforamina l stenosis of lumbar spine,Acute bilateral low back pain with sciatica, sciatica laterality unspecified Take 1 Capsule (300 mg) by mouth 2 times daily. 120 Capsule 5 09/29/19 24 Active spironolactone (ALDACTONE) 50 mg tablet Take 1 Tablet (50 mg) by mouth daily. 30 Tablet 5 09/29/19 24 Active loperamide (IMODIUM) 2 mg capsule Take 1 Capsule (2 mg) by mouth 4 times daily as needed for Diarrhea/Loose Stools. 30 Capsule 09/29/19 24 Active multivitamin with folic acid 400 mcg Tablet tablet Take 1 Tablet by mouth daily. 30 Tablet 09/29/19 24 Active nicotine (NICODERM CQ) 21 mg/24 hr patch Apply 1 Patch to skin as directed daily. 14 Patch 09/29/19 24 Active prochlorperazine maleate (COMPAZINE) 10 mg tablet Take 1 Tablet (10 mg) by mouth every 6 hours as needed for Nausea/Emesis. 10 Tablet 09/29/19 24 Active sodium hypochlorite (DAKIN'S) 0.25% half-strength Solution Apply to affected area daily. 473 mL 09/29/19 24 Active zinc oxide-cod liver oil (Desitin) 40 % Paste Apply to affected area see administration instructions. 30 Gram 09/29/19 24 Active oxyCODONE-acetam inophen (PERCOCET) 5-325 mg tabletIndication s:Cellulitis of right buttock,Neurofor aminal stenosis of lumbar spine,Polymyalgi a rheumatica syndrome,DDD (degenerative disc disease), lumbar Take 1 Tablet by mouth every 6 hours as needed for Pain, Moderate. Max Daily Amount: 4 Tablets 20 Tablet 09/29/19 24 Active magnesium hydroxide (MILK OF MAGNESIA) 400 mg/5 mL suspension Take 30 mL by mouth 1 time daily as needed for Constipation. Active bisacodyL (DULCOLAX) 5 mg Delayed Release tablet Take 5 mg by mouth 1 time daily as needed for Constipation. Active bisacodyL (DULCOLAX) 10 mg Suppository Insert 10 mg by rectum daily. Active magnesium citrate solution Take 10 mg by mouth one time only. Active calcium carbonate-mag hydroxide (MYLANTA SUPREME) 400-135 mg/5 mL Suspension Take 1 mL by mouth. Active acetaminophen (TYLENOL) 325 mg tablet Take 325 mg by mouth every 4 hours as needed. Active albuterol sulfate HFA 90 mcg/actuation aerosol inhalerIndicatio ns:Asthma with chronic obstructive pulmonary disease (COPD) (CMS/HCC) TAKE 2 PUFFS BY INHALATION EVERY 4 HOURS NEEDED FOR RESPIRATION. 17 Gram 12/19/19 24 Active FLUoxetine (PROzac) 20 mg capsule Take 20 mg by mouth daily. Take 20 mg with a 10 mg daily Active FLUoxetine (PROzac) 10 mg tablet Take 10 mg by mouth daily. Take with with a 20 mg to =30 mg daily Active fluticasone-umec lidinium-vilante rol (Trelegy Ellipta) 200-62.5-25 mcg Disk with Device Take 1 Puff by inhalation daily. Active polyethylene glycol (MIRALAX) 17 gram Powder in Packet Take by mouth 1 time daily as needed for Constipation. Active albuterol sulfate HFA 90 mcg/actuation aerosol inhaler Take 2 Puffs by inhalation every 6 hours as needed for Shortness of Breath. Active ergocalciferol (VITAMIN D2) 50,000 unit capsule Take 50,000 Units by mouth every 30 days. Active MELATONIN ORAL Take 6 mg by mouth 1 time daily as needed. Active Eliquis 5 mg tablet Take 5 mg by mouth 2 times daily. 04/16/20 24 Active metOLazone (ZAROXOLYN) 5 mg tablet Take 5 mg by mouth daily. Active OTHER Protein liquid oral 30ml Active senna (EX-LAX) 15 mg Tablet Take by mouth. Ac tive mag hydrox/aluminum hyd/simeth (ALUM-MAG HYDROXIDE-SIMETH ORAL) Take by mouth. Activ e docusate sodium (COLACE) 50 mg capsule Take 50 mg by mouth 2 times daily. Active Active Problems Problem Noted Date Diagnosed Date Lab test positive for detection of COVID-19 viru s 09/28/2023 Abscess of buttock 09/19/2023 Cellulitis of right buttock 06/06/2023 COPD with exacerbation 01/06/2023 Wound of left leg 01/06/2023 Left leg cellulitis 01/06/2023 Protein-calorie malnutrition, moderate 3 Polymyalgia rheumatica syndrome 03/28/2022 Plaque psoriasis 03/28/2022 Essential thrombocytosis 11/26/2021 Hidradenitis suppurativa 09/24/2019 Anemia of infection and chronic disease 11/24/19 19 Hx of gastritis 01/18/2018 Dependent edema 09/26/2017 Hypoalbuminemia 09/26/2017 Recurrent major depressive disorder, in full rem ission 09/26/2017 Gluteal abscess 08/15/2017 Iron deficiency anemia 08/07/2017 Lumbar facet arthropathy 04/12/2016 DDD (degenerative disc disease), lumbar 04/12/20 16 DDD (degenerative disc disease), lumbosacral Neuroforaminal stenosis of lumbar spine 04/12/20 16 Synovial cyst of lumbar spine 01/20/2016 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 Overview (12/24/2020): Noted on SPEP 12/2011 SNHL (sensorineural hearing loss) 05/01/2012 Hypoxemia requiring supplemental oxygen 06/17/20 10 S/P Carpal Tunnel Release, right 02/16/2010 Herniated lumbar intervertebral disc 02/18/2009 Overview (12/24/2020): L4-L5, L5-S1 Gastroesophageal reflux disease without esophagi tis 01/28/2008 Essential hypertension 04/03/2007 Primary osteoarthritis involving multiple joints 02/20/2007 Overview (12/23/2020): Bilateral knees Asthma with chronic obstructive pulmonary diseas e (COPD) 02/20/2007 Obstructive sleep apnea 02/20/2007 Overview (12/23/2020): Oxygen, no CPAP Tobacco dependence 02/20/2007 Mixed hyperlipidemia 02/20/2007 Generalized anxiety disorder 02/20/2007 Resolved Problems Problem Noted Date Diagnosed Date Resolved Date Cellulitis 01/06/2023 06/06/2023 Impetigo 03/28/2022 11/24/2022 Pressure ulcer of right buttock, stage 3 09/24/2019 01/06/2020 Hypocalcemia 11/25/2018 01/06/2020 Abnormal intentional weight loss 11/23/2018 12/02/2020 Severe obesity (BMI 35.0-39. 9) with comorbidity 11/23/2018 12/02/2020 Reactive thrombocytosis 11/23/201803/29 Morbid obesity with body mas s index of 40.0-49.9 04/12/2016 11/23/2018 Ligamentum flavum hypertrophy 04/12/2016 09/20/2020 Left lumbar radiculitis 04/12/201608/29 Sciatica neuralgia 07/14/2014 7 Special screening for malign ant neoplasms, colon 07/10/2013 07/14/2014 Tongue lesion 12/27/2011 07/01/2013 Muscle weakness of lower extremity 02/18/2009 07/22/2015 Lower back pain 02/18/2009 11/23/2018 Impacted cerumen 01/28/2008 12/15/2009 Overview (12/23/2020): bilaterally Benign prostatic hypertrophy 02/20/2007 09/18/2016 Chest pain 02/20/2007 12/15/2009 Overview (12/23/2020): noncardiac Bladder neck obstruction 02/20/2007 Encounters Date Type Department Care Team Description 10/24/2024 10:40 AM MATERIAL ASSEMBLER Office Visit [facility] [address] [facility] [address] [place] [address] Saritha Horton, MARCEL Chronic diastolic congestive heart failure (CMS/HCC) (Primary Dx); Shortness of breath; History of DVT (deep vein thrombosis); Benign hypertension 10/15/2024 External Device Data STL ABSTRACTION Provider, Abstract 10/01/2024 External Device Data STL ABSTRACTION Provider, Abstract 09/11/2024 8:03 AM MATERIAL ASSEMBLER - 09/11/2024 11:59 PM MATERIAL ASSEMBLER Hospital Encounter [facility] [address] [place] [address] Joan Henson MD Ambulance, [facility] Discharge Disposition: [facility] 09/11/2024 External Device Data STL ABSTRACTION Provider, Abstract from Last 3 Months Immunizations Immunization Administration Dates Next Due (PNEUMOVAX 23)(50 YRS UP) PN EUMOCOCCAL POLYSACCHARIDE (PPV23) 0.5 ML, IM 07/20/2020,06/23/2011,07/13/2005 (PREVNAR 13)(6 WKS UP) PNEUM OCOCCAL CONJUGATE (PCV13) 0.5 ML, IM 06/01/2019,11/23/2018 (SHINGRIX)(50 YRS UP) ZOSTER VACCINE RECOMBINANT, 0.5 ML, IM 11/26/2018,09/24/2018 INFLUENZA VACCINE HIGH DOSE QUADRIVALENT 65 YR UP PF IM 06/06/2023,05/14/2020 INFLUENZA VACCINE QUADRIVALE NT 3 YR UP PF IM 05/18/2017 INFLUENZA VACCINE QUADRIVALE NT 6 MOS UP PF IM 05/18/2017 Influenza A (H1N1) Vaccine PF IM 08/18/2009 Influenza Seasonal Unspecifi ed Formulation IM 06/05/2013,06/07/2012,06/02/2010,05/28,06/25/2007,06/27/2006,05/30/2002 ,07/31/2001 Influenza Vaccine High Dose 65+ Yrs IM 0 05/11/2022,06/07/2021,06/01/2019,06/01,05/17/2018 Influenza Vaccine Split 3+ Yrs IM 07/08/2008 Influenza Vaccine Tri Split 4+ Im 2012,06/07/2012,06/02/2010,05/28,07/08/2008,06/25/2007,06/27/2006 ,05/30/2002,07/31/2001 Influenza Vaccine Tri Split 4+ Pf Im 05/18/2016, 05/27/2014 PREVNAR (PCV13) pneumococcal 13-valent conjugate Vaccine 06/01/2019 Pneumococcal 13-milind Conj Vac c Patient Supplied 06/01/2019 Pneumococcal Polysaccharide Vacc 23-milind IM SCHIP 07/20/2020,06/23/2011,07/13/2005 Family History Medical History Relation Name Comments Diabetes Brother 1 Heart Attack Brother 2 Diabetes Father Heart Attack Mother Diabetes Sister Colon Cancer Neg Hx Relation Name Status Comments Brother 1 Brother 2 Father Mother Sister Social History Tobacco Use Types Packs/Day Years Used Date Smoking Tobacco: Former Cigarettes 0 09/19/2023 - 03/21/1964 Passive Smoke Exposure: Current Smokeless Tobacco: Never Alcohol Use Standard Drinks/Week Comments No 0 (1 standard drink = 0.6 oz pur e alcohol) Financial Resource Strain Answer Date R ecorded How hard is it for you to pa y for the very basics like food, housing, medical care, and heating? Somewhat hard 05/16/2022 Food Insecurity Answer Date Recorded In the past 12 months, have you worried that your food would run out before you had money to buy more? Sometimes true 2021 In the past 12 months, did y ou run out of food and didn't have money to buy more? Sometimes true 05/16/2022 Transportation Needs Answer Date Record ed In the past 12 months, has l ack of transportation kept you from medical appointments or from getting medications? No 05/16/2022 Lack of Transportation (Non-Medical) Not on file 05/16/2022 Feeling Safe Answer Date Recorded Are you in a relationship wi th someone who hurts you emotionally and/or physically? No 12/19/2023 Food Insecurity Answer Date Recorded Social/Environmental Concerns No concerns Transportation Needs Answer Date Record ed Social/Environmental Concerns No concerns Housing Stability Answer Date Recorded Social/Environmental Concerns No concerns Utility Needs Answer Date Recorded Social/Environmental Concerns No concerns Sex and Gender Information Value Date Recorded Sex Assigned at Not on file Legal Sex Male 12:11 AM MATERIAL ASSEMBLER Gender Identity Not on file Sexual Orientation Not on file Last Filed Vital Signs Vital Sign Reading Time Taken Comments Blood Pressure 120/68 10/24/2024 10:35 AM MATERIAL ASSEMBLER Pulse 81 10/24/2024 10:35 AM MATERIAL ASSEMBLER Temperature 36.6 ??C (97.8 ??F) 12/19/2023 1 2:46 AM CDT Respiratory Rate 21 12/19/2023 9:30 AM CDT Oxygen Saturation 93% 05/23/2024 1:42 PM CDT Inhaled Oxygen Concentration - - Weight 147.1 kg (324 lb 6.4 oz) 025 10:35 AM MATERIAL ASSEMBLER Height 182.9 cm (6') 10/24/2024 10:35 AM MATERIAL ASSEMBLER Body Mass Index 44 10/24/2024 10:35 AM MATERIAL ASSEMBLER Plan of Treatment Upcoming Encounters Date Type Department Care Team (Late st Contact Info) Description 11/20/2024 11:40 AM CDT Office Visit [facility] [place] [address] [place] [address] Chava Maciel MD [address] [place] [address] 10/24/2025 10:45 AM MATERIAL ASSEMBLER Office Visit [facility] [address] [place] [address] Dane Sierra MD [address] [facility] [address] [place] [address] Health Maintenance Due Date Last Done Comments DTAP/TDAP/TD VACCINES (1 - Tdap) 1971 Traditional Medicare (ACO) A nnual Wellness Visit 1971 FIT-DNA Q 3 years 1997 FIT/FOBT Q 1 year 1997 Flex Sig/CT Colonography Q 5 years 1997 RSV VACCINE (60+ or ) (1 - Risk 60-74 years 1-dose series) 2012 Abdominal Aortic Aneurysm (A AA) Screening 2017 COLORECTAL SCREENING 07/11/2023 07/11/2013, 07/11/2013, 07/10/2013 Colorectal Cancer Screening 07/11/2023 INFLUENZA VACCINE (#1) 2024 , 05/11/2022, 05/11/2022, Additional history exists COVID-19 Vaccine (2023-2 5 season) 2024 06/06/2023, 05/18/2022, 11/03/2021, Additional history exists ZOSTER VACCINE Completed 11/26/2018, 09/24/2018 PNEUMOCOCCAL VACCINE 50+ YEARS Completed 1 09/19/2019, 07/20/2020, 06/01/2019, Additional history exists Procedures Procedure Name Priority Date/Time Associated Diagnosis Comments ND ECG ROUTINE ECG W/LEAST 12 LDS W/I&R Routine 10/24/2024 11:01 AM MATERIAL ASSEMBLER Chronic diastolic congestive heart failure (CMS/HCC) Shortness of breath History of DVT (deep vein thrombosis) Benign hypertension ENDOSCOPY, COLON, SCREENING Routine 07/11/2013 12:39 PM MATERIAL ASSEMBLER from Last 3 Months or Most Recently Relevant to Health Maintenance Results * ND ECG ROUTINE ECG W/LEAST 12 LDS W/I&R (10/24/2024 11:01 AM MATERIAL ASSEMBLER) Narrative [facility] - 10/24/2024 11:01 AM MATERIAL ASSEMBLER Saritha Horton FNP ? 10/24/2024 11:10 AM NSR, rate 81 Procedure Note Saritha Horton FNP - 10/24/2024 11:01 AM CST NSR, rate 81 us Saritha ROD ECG ORDERABLES Final Result [facility] [id number] [address] [facility] [address] [place] [address], * ENDOSCOPY, COLON, SCREENING (07/11/2013 12:39 PM MATERIAL ASSEMBLER) 07/11/2013 12:3 9 PM MATERIAL ASSEMBLER Narrative Procedure Note Demetri Chávez MD - 07/10/2013 12:00 AM CST Procedures signed by Demetri Chávez MD at 07/11/2013 12:39 PM Author: Demetri Chávez MD Service: -- Author Type: Physician Filed: 07/11/2013 12:39 PM Date of Service: 07/10/2013 5:25 PM Status:Signed Field Engineer: Demetri Chávez MD (Physician) Procedure Orders 1. ENDOSCOPY, COLON, MEDICARE SCREENING (WELLNESS) [[id number]] ordered byat 07/01/13 [address] [place], [place] Patient: ISREAL JAFFE CSN: [id number] : 1950 Provider: Demetri Chávez MD ENDOSCOPY PROCEDURE REPORT DATE: 07/10/2013 PROCEDURE: Colonoscopy to cecum. INDICATIONS: The patient is a 62-year-old gentleman referred forcolorectal cancer screening. ENDOSCOPIST: Demetri Chávez M.D. NURSES: Jazmyn Hess RN and Yeny Bellamy RN. ENDOSCOPE: Olympus CF-Q180AL video colonoscope. MEDICATIONS: Versed 4 mg IV and fentanyl 100 mcg IV. MONITORING: Blood pressure, oxygen saturation, and cardiac monitoring.The patient was on 2 L of oxygen per nasal cannula. DESCRIPTION OF PROCEDURE: Digital rectal examination was unrevealing.The colonoscope was advanced to the cecum with the location verified byidentifying the base of the cecum and the ileocecal valve.Circumferential inspection of the mucosal surfaces was performed on slowwithdrawal of the instrument. The bowel prep was adequate. The mucos[place] vascular patterns appeared normal through the length of the colon.There were no polyps, mass lesions, diverticula, or angiodysplasias.There were no inflammatory changes or stenosis. A retroflexed view of therectum was notable only for small internal hemorrhoids. The procedure was well tolerated and there were no complications.Endoscopic photos were obtained. IMPRESSION: Small internal hemorrhoids, otherwise unremarkablecolonoscopy. Demetri Chávez MD MMODL D: [id number] V: [id number] cc: Roshan Jimenez DO Roshan Jimenez DO GI PROCEDURE ORDERABLES Fin al Result Performing Organization Address City/State/[facility] Co de Phone Number [facility] from Last 3 Months or Most Recently Relevant to Health Maintenance Insurance [place]ICAID [place] MEDICARE PART A AND B RX [employer] RX Member Subscriber Plan / Payer (Ef fective 2023-Present) Name:Isreal Jaffe Relation to Subscriber:Self Name:Isreal Jaffe Payer ID:Not on file Group ID:[id number] Type:RX Commercial Address: [address] Advance Directives For more information, please contact: [phone] * Full Code (Latest Code Status on File) Date Activated Date Inactivated Comments 09/19/2023 3:56 PM 09/30/2023 12:28 AM * Full Code Date Activated Date Inactivated Comments 01/11/2023 8:27 AM 01/17/2023 5:08 PM * Full Code Date Activated Date Inactivated Comments 01/06/2023 2:35 PM 01/11/2023 8:27 AM
--- OUTSIDE RECORDS SUMMARY | 2024-11-02 16:28 | XMS_ITS | Encounter Summary ---
Author Organization [facility] Address [address] [place] [address] Care Team Providers Care Mortgage Protection Specialist Name Role Phone Roshan Jimenez DO Primary Care Provider Unav ailable Encounter Details Date Type Department Care Team (Late st Contact Info) Description 12/30/2009 Ancillary Orders 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 ??X-rays fail to reveal evidence of significant arthritic change. ??Overall alignment looks good. ??There is no significant cartilage wear. ??No other pathologic process is noted. ?? Procedure Note Yusef Malagon MD - 01/11/2010 RADIOGRAPHIC FINDINGS: X-rays of the wrists were obtained and reviewedtoday in the clinic. X-rays fail to reveal evidence of significantarthritic change. Overall alignment looks good. There is no significantcartilage wear. No other pathologic process is noted. Yusef Malagon MD DIAGNOSTIC IMAGING ORDERABLES Final Result * XR WRIST 3+ VW LEFT (12/30/2009 1:41 PM CDT) Anatomical Region Laterality Modality Wrist / Hand Computed Radiogr aphy Narrative 01/11/2010 10:07 AM CDT RADIOGRAPHIC FINDINGS: ??X-rays of the wrists were obtained and reviewed today in the clinic. ??X-rays fail to reveal evidence of significant arthritic change. ??Overall alignment looks good. ??There is no significant cartilage wear. ??No other pathologic process is noted. ?? Procedure Note Yusef Malagon MD - 01/11/2010 RADIOGRAPHIC FINDINGS: X-rays of the wrists were obtained and reviewedtoday in the clinic. X-rays fail to reveal evidence of significantarthritic change. Overall alignment looks good. There is no significantcartilage wear. No other pathologic process is noted. Yusef Malagon MD DIAGNOSTIC IMAGING ORDERABLES Final Result documented in this encounter Visit Diagnoses Diagnosis Pain Generalized pain documented in this encounter Care Teams Mortgage Protection Specialist Relationship Specialty Start Date End Date Roshan Jimenez DO NO ADDRESS ON FILE PCP - General 03/26/03 documented as of this encounter
--- OUTSIDE RECORDS SUMMARY | 2024-11-02 16:28 | XMS_ITS | Encounter Summary ---
Author Organization [facility] Address [address] [place] [address] Care Team Providers Care Health Specialist Name Role Phone Roshan Jimenez DO Primary Care Provider Unav ailable Encounter Details Date Type Department Care Team (Late st Contact Info) Description 02/24/[address] 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
--- OUTSIDE RECORDS SUMMARY | 2024-11-02 16:28 | XMS_ITS | Encounter Summary ---
Author Organization [facility] Address [address] [place] [address] Care Team Providers Care Parachute Marker Name Role Phone Roshan Jimenez DO Primary Care Provider Unav ailable Encounter Details Date Type Department Care Team (Latest Contact Info) Description 05/17/2000 Outpatient Historical [facility] [address] [place] [address] [place] [phone] Merlin Reilly MD NO ADDRESS ON FILE Hypersomnia with sleep apnea, unspecified (Primary Dx) Social History Tobacco Use Types Packs/Day Years Used Date Smoking Tobacco: Never Assessed Sex and Gender Information Value Date Recorded Sex Assigned at Not on file Legal Sex Male 4:59 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
--- OUTSIDE RECORDS SUMMARY | 2024-11-02 16:28 | XMS_ITS | Encounter Summary ---
Author Organization [facility] Address [address] [place] [address] Care Team Providers Care Wire Mill Operator Name Role Phone Roshan Jimenez DO Primary Care Provider Unav ailable Encounter Details Date Type Department Care Team (Latest Contact Info) Description 07/31/2001 Outpatient [facility] [address] [place] [phone] Roshan Jimenez DO NO ADDRESS ON FILE HYPERTENSION NOS (Primary Dx); VACCINE FOR INFLUENZA Social History Tobacco Use Types Packs/Day Years Used Date Smoking Tobacco: Never Assessed Sex and Gender Information Value Date Recorded Sex Assigned at Not on file Legal Sex Male 4:59 AM SEO PROFESSIONAL Gender Identity Not on file Sexual Orientation Not on file documented as of this encounter Plan of Treatment Not on file documented as of this encounter Visit Diagnoses Diagnosis Unspecified essential hypertension- Primary Need vaccination-viral disease Need for prophylactic vaccination and inoculation against other viral diseases documented in this encounter Care Teams Wire Mill Operator Relationship Specialty Start Date End Date Roshan Jimenez DO NO ADDRESS ON FILE PCP - General 03/26/03 documented as of this encounter
--- OUTSIDE RECORDS SUMMARY | 2024-11-02 16:28 | XMS_ITS | Encounter Summary ---
Author Organization [facility] Address [address] [place] [address] Care Team Providers Care Aboriginal Education Teacher Name Role Phone Roshan Jimenez DO Primary Care Provider Unav ailable Encounter Details Date Type Department Care Team (Latest Contact Info) Description 02/15/2005 Outpatient [facility] [place] [address] [place] [address] Roshan Jimenez DO NO ADDRESS ON FILE CHRONIC AIRWAY OBSTRUCTION NEC ([facility]) (Primary Dx); OBESITY NOS; HYPERTENSION NOS; OTHER UNSPEC SLEEP APNEA Social History Tobacco Use Types Packs/Day Years Used Date Smoking Tobacco: Never Assessed Sex and Gender Information Value Date Recorded Sex Assigned at Not on file Legal Sex Male 4:59 AM CONCRETE FINISHER Gender Identity Not on file Sexual Orientation Not on file documented as of this encounter Plan of Treatment Not on file documented as of this encounter Visit Diagnoses Diagnosis Chronic airway obstruction, not elsewhere classified ([facility])- Primary Chronic airway obstruction, not elsewhere classified Obesity, unspecified Unspecified essential hypertension Unspecified sleep apnea documented in this encounter Care Teams Aboriginal Education Teacher Relationship Specialty Start Date End Date Roshan Jimenez DO NO ADDRESS ON FILE PCP - General 03/26/03 documented as of this encounter
--- OUTSIDE RECORDS SUMMARY | 2024-11-02 16:28 | XMS_ITS | Encounter Summary ---
Author Organization [facility] Address [address] [place] [address] Care Team Providers Care Metal Fitter Name Role Phone Roshan Jimenez DO Primary Care Provider Unav ailable Encounter Details Date Type Department Care Team (Latest Contact Info) Description 07/15/2002 Outpatient [facility] [address] [place] [address] Roshan Jimenez DO NO ADDRESS ON FILE OBSTR CHR BRONCHITIS W AC EXACERB (CMS/HCC) (Primary Dx); HYPERTENSION NOS Social History Tobacco Use Types Packs/Day Years Used Date Smoking Tobacco: Never Assessed Sex and Gender Information Value Date Recorded Sex Assigned at Not on file 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
--- OUTSIDE RECORDS SUMMARY | 2024-11-02 16:28 | XMS_ITS | Encounter Summary ---
Author Organization [facility] Address [address] [place] [address] Care Team Providers Care Crankshaft Straightener Name Role Phone Roshan Jimenez DO Primary Care Provider Unav ailable Encounter Details Date Type Department Care Team (Latest Contact Info) Description 11/13/2002 Outpatient [facility] Podiatry-Stevo Bal Aaron [address] [place] [address] Noé Rosa, DPM [address] [place] [address] Onychia of toe (Primary Dx); INGROWING NAIL Social History Tobacco Use Types Packs/Day Years Used Date Smoking Tobacco: Never Assessed Sex and Gender Information Value Date Recorded Sex Assigned at Not on file 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
--- OUTSIDE RECORDS SUMMARY | 2024-11-02 16:28 | XMS_ITS | Encounter Summary ---
Author Organization [facility] Address [address] [place] [address] Care Team Providers Care Light Oil Operator Name Role Phone Unavailable Primary Care Provider Unavailabl e Encounter Details Date Type Department Care Team (Late st Contact Info) Description 10/15/2024 External Device Data [facility] ABSTRACTION Provider, Abstract NO ADDRESS ON FILE Social History Tobacco [...] on file Legal Sex Male 12:11 AM PEDIATRIC CLINICAL NURSE SPECIALIST Gender Identity Not on file Sexual Orientation Not on file documented as of this encounter Plan of Treatment Upcoming Encounters Date Type Department Care Team (Late st Contact Info) Description 11/20/2024 11:40 AM CDT Office Visit [facility] Vascular Surgery [place] [address] [place] [address] Chava Maciel MD [address] [place] [address] 10/24/2025 10:45 AM PEDIATRIC CLINICAL NURSE SPECIALIST Office Visit [facility] [address] [place] [address] Dane Sierra MD [address] [place] [address] documented as of this encounter Visit Diagnoses Not on filedocumented in this encounter
--- OUTSIDE RECORDS SUMMARY | 2024-11-02 16:28 | XMS_ITS | Encounter Summary ---
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
--- OUTSIDE RECORDS SUMMARY | 2024-11-02 16:28 | XMS_ITS | Encounter Summary ---
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
--- OUTSIDE RECORDS SUMMARY | 2024-11-02 16:28 | XMS_ITS | Encounter Summary ---
Author Organization [facility] Address [address] [place] [address] Care Team Providers Care Print Line Operator Name Role Phone Roshan Jimenez DO Primary Care Provider Unav ailable Encounter Details Date Type Department Care Team (Latest Contact Info) Description 07/06/2000 Outpatient Historical [facility] Dermatology- [facility] [place] [address] [place] [phone] Irineo Snyder MD [address] [place] [phone] Hidradenitis (Primary Dx); Benign miguel skin trunk Social History Tobacco Use Types Packs/Day Years Used Date Smoking Tobacco: Never Assessed Sex and Gender Information Value Date Recorded Sex Assigned at Not on file 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
--- OUTSIDE RECORDS SUMMARY | 2024-11-02 16:28 | XMS_ITS | Encounter Summary ---
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
--- OUTSIDE RECORDS SUMMARY | 2024-11-02 16:28 | XMS_ITS | Encounter Summary ---
Author Organization [facility] Address [address] [facility] Attn: [place] [address] Care Team Providers Care Tank Builder Helper Name Role Phone Roshan Jimenez DO Primary Care Provider Unav ailable Encounter Details Date Type Department Care Team (Late st Contact Info) Description 02/24/2000 Outpatient Historical Merlin Reilyl MD NO ADDRESS ON FILE Social History Tobacco Use Types Packs/Day Years Used Date Smoking Tobacco: Never Assessed Sex and Gender Information Value Date Recorded Sex Assigned at Not on file Legal Sex Male 4:59 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
--- OUTSIDE RECORDS SUMMARY | 2024-11-02 16:28 | XMS_ITS | Encounter Summary ---
Author Organization [facility] Address [address] [place] [address] Care Team Providers Care [id number] Armor Crewman Name Role Phone Roshan Jimenez DO Primary Care Provider Unav ailable Encounter Details Date Type Department Care Team (Latest Contact Info) Description 01/01/2001 Outpatient [facility] [place] [address] [place] [address] Roshan Jimenez DO NO ADDRESS ON FILE Obstructive chronic bronchitis with exacerbation (CMS/HCC) (Primary Dx); Depressive disorder, not elsewhere classified; Edema; Unspecified essential hypertension Social History Tobacco Use Types Packs/Day Years Used Date Smoking Tobacco: Never Assessed Sex and Gender Information Value Date Recorded Sex Assigned at Not on file Legal Sex Male 4:59 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
--- OUTSIDE RECORDS SUMMARY | 2024-11-02 16:28 | XMS_ITS | Encounter Summary ---
Author Organization [facility] Address [address] [place] [address] Care Team Providers Care Supervisor Insecticide Name Role Phone Roshan Jimenez DO Primary Care Provider Unav ailable Encounter Details Date Type Department Care Team (Latest Contact Info) Description 03/22/2000 Outpatient Historical [facility] [address] [place] [address] Roshan Jimenez DO NO ADDRESS ON FILE Unspecified essential hypertension (Primary Dx); Chronic airway obstruction, not elsewhere classified (CMS/HCC); Transient tic disorder; Osteoarthrosis, unspecified whether generalized or localized, unspecified site Social History Tobacco Use Types Packs/Day Years Used Date Smoking Tobacco: Never Assessed Sex and Gender Information Value Date Recorded Sex Assigned at Not on file Legal Sex Male 4:59 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 Gender Identity Not on file Sexual Orientation Not on file documented as of this encounter Plan of Treatment Not on file documented as of this encounter Visit Diagnoses Diagnosis Unspecified essential hypertension- Primary Chronic airway obstruction, not elsewhere classified (CMS/HCC) Chronic airway obstruction, not elsewhere classified Transient tic disorder Osteoarthrosis, unspecified whether generalized or localized, unspecified site documented in this encounter Care Teams Supervisor Insecticide Relationship Specialty Start Date End Date Roshan Jimenez DO NO ADDRESS ON FILE PCP - General 03/26/03 documented as of this encounter
--- OUTSIDE RECORDS SUMMARY | 2024-11-02 16:28 | XMS_ITS | Encounter Summary ---
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
--- OUTSIDE RECORDS SUMMARY | 2024-11-02 16:28 | XMS_ITS | Encounter Summary ---
Author Organization [facility] Address [address] [place] [address] Care Team Providers Care Bulk Plant Operator Name Role Phone Roshan Jimenez DO Primary Care Provider Unav ailable Encounter Details Date Type Department Care Team (Latest Contact Info) Description 05/30/2002 Outpatient [facility] [address] [place] [address] Roshan Jimenez DO NO ADDRESS ON FILE CHRONIC AIRWAY OBSTRUCTION NEC ([facility]) (Primary Dx); OBESITY NOS; LUMBAGO; VACCINE FOR INFLUENZA Social History Tobacco Use Types Packs/Day Years Used Date Smoking Tobacco: Never Assessed Sex and Gender Information Value Date Recorded Sex Assigned at Not on file Legal Sex Male 4:59 AM 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 Gender Identity Not on file Sexual Orientation Not on file documented as of this encounter Plan of Treatment Not on file documented as of this encounter Visit Diagnoses Diagnosis Chronic airway obstruction, not elsewhere classified ([facility])- Primary Chronic airway obstruction, not elsewhere classified Obesity, unspecified Lumbago Need vaccination-viral disease Need for prophylactic vaccination and inoculation against other viral diseases documented in this encounter Care Teams Bulk Plant Operator Relationship Specialty Start Date End Date Roshan Jimenez DO NO ADDRESS ON FILE PCP - General 03/26/03 documented as of this encounter
--- OUTSIDE RECORDS SUMMARY | 2024-11-02 16:28 | XMS_ITS | Encounter Summary ---
Author Organization [facility] Address [address] [place] [address] Care Team Providers Care Seed Cone Picker Name Role Phone Roshan Jimenez DO Primary Care Provider Unav ailable Encounter Details Date Type Department Care Team (Latest Contact Info) Description 03/09/2005 Outpatient Historical [facility] [address] [place] [address] [place] [address] Zofia Gleason, TECHNICAL SALES SPECIALIST [address] [place] [address] HYPERSOMNI W SLEEP APNEA (Primary Dx) Social History Tobacco Use Types Packs/Day Years Used Date Smoking Tobacco: Never Assessed Sex and Gender Information Value Date Recorded Sex Assigned at Not on file Legal Sex Male 4:59 AM 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
--- OUTSIDE RECORDS SUMMARY | 2024-11-02 16:28 | XMS_ITS | Encounter Summary ---
Author Organization [facility] Address [address] [place] [address] Care Team Providers Care Cut Filer Name Role Phone Roshan Jimenez DO Primary Care Provider Unav ailable Encounter Details Date Type Department Care Team (Latest Contact Info) Description 01/30/2002 Outpatient [facility] [address] [place] [address] Roshan Jimenez DO NO ADDRESS ON FILE CHRONIC AIRWAY OBSTRUCTION NEC ([facility]) (Primary Dx); HYPERTENSION NOS; OTHER UNSPEC SLEEP APNEA; OSTEOARTHROS NOS-UNSPEC Social History Tobacco Use Types Packs/Day Years Used Date Smoking Tobacco: Never Assessed Sex and Gender Information Value Date Recorded Sex Assigned at Not on file Legal Sex Male 4:59 AM CLINICAL ASSISTANT PROFESSOR Gender Identity Not on file Sexual Orientation Not on file documented as of this encounter Plan of Treatment Not on file documented as of this encounter Visit Diagnoses Diagnosis Chronic airway obstruction, not elsewhere classified ([facility]/HCC)- Primary Chronic airway obstruction, not elsewhere classified Unspecified essential hypertension Unspecified sleep apnea Osteoarthrosis, unspecified whether generalized or localized, unspecified site documented in this encounter Care Teams Cut Filer Relationship Specialty Start Date End Date Roshan Jimenez DO NO ADDRESS ON FILE PCP - General 03/26/03 documented as of this encounter
--- OUTSIDE RECORDS SUMMARY | 2024-11-02 16:28 | XMS_ITS | Encounter Summary ---
Author Organization [facility] Address [address] [place] [address] Care Team Providers Care Dietitian Therapeutic Name Role Phone Roshan Jimenez DO Primary Care Provider Unav ailable Encounter Details Date Type Department Care Team (Late st Contact Info) Description 12/25/2000 Outpatient Historical [facility] Roshan Jimenez DO NO ADDRESS ON FILE Bronchitis, not specified as acute or chronic (Primary Dx); Other and unspecified hyperlipidemia; Inhibited sex excitement; Unspecified essential hypertension Social History Tobacco Use Types Packs/Day Years Used Date Smoking Tobacco: Never Assessed Sex and Gender Information Value Date Recorded Sex Assigned at Not on file Legal Sex Male 4:59 AM JAILOR Gender Identity Not on file Sexual Orientation Not on file documented as of this encounter Plan of Treatment Not on file documented as of this encounter Visit Diagnoses Diagnosis Bronchitis, not specified as acute or chronic- Primary Other and unspecified hyperlipidemia Inhibited sex excitement Psychosexual dysfunction with inhibited sexual excitement Unspecified essential hypertension documented in this encounter Care Teams Dietitian Therapeutic Relationship Specialty Start Date End Date Roshan Jimenez DO NO ADDRESS ON FILE PCP - General 03/26/03 documented as of this encounter
--- OUTSIDE RECORDS SUMMARY | 2024-11-02 16:28 | XMS_ITS | Encounter Summary ---
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
--- OUTSIDE RECORDS SUMMARY | 2024-11-02 16:28 | XMS_ITS | Encounter Summary ---
Author Organization [facility] Address [address] [place] [address] Care Team Providers Care Senior Systems Programmer Name Role Phone Roshan Jimenez DO Primary Care Provider Unav ailable Encounter Details Date Type Department Care Team (Latest Contact Info) Description 12/08/2000 Outpatient [facility] [address] [place] [id number] Roshan Jimenez DO NO ADDRESS ON FILE Anxiety state, unspecified (Primary Dx); Depressive disorder, not elsewhere classified; Acute bronchitis; Chronic airway obstruction, not elsewhere classified (CMS/HCC) Social History Tobacco Use Types Packs/Day Years Used Date Smoking Tobacco: Never Assessed Sex and Gender Information Value Date Recorded Sex Assigned at Not on file Legal Sex Male 4:59 AM RELIEF MAN Gender Identity Not on file Sexual Orientation Not on file documented as of this encounter Plan of Treatment Not on file documented as of this encounter Visit Diagnoses Diagnosis Anxiety state, unspecified- Primary Depressive disorder, not elsewhere classified Acute bronchitis Chronic airway obstruction, not elsewhere classified (CMS/HCC) Chronic airway obstruction, not elsewhere classified documented in this encounter Care Teams Senior Systems Programmer Relationship Specialty Start Date End Date Roshan Jimenez DO NO ADDRESS ON FILE PCP - General 03/26/03 documented as of this encounter
--- OUTSIDE RECORDS SUMMARY | 2024-11-02 16:28 | XMS_ITS | Encounter Summary ---
Author Organization [facility] Address [address] [place] [address] Care Team Providers Care Reception Centre Manager Name Role Phone Roshan Jimenez DO Primary Care Provider Unav ailable Encounter Details Date Type Department Care Team (Latest Contact Info) Description 02/12/2001 Outpatient [facility] [address] [place] [address] Roshan Jimenez DO NO ADDRESS ON FILE Unspecified asthma(493.90) (Primary Dx); Chronic airway obstruction, not elsewhere classified (CMS/[facility]) Social History Tobacco Use Types Packs/Day Years Used Date Smoking Tobacco: Never Assessed Sex and Gender Information Value Date Recorded Sex Assigned at Not on file Legal Sex Male 4:59 AM HOGSHEAD HOOPER Gender Identity Not on file Sexual Orientation Not on file documented as of this encounter Plan of Treatment Not on file documented as of this encounter Visit Diagnoses Diagnosis Unspecified asthma(493.90)- Primary Unspecified asthma Chronic airway obstruction, not elsewhere classified (CMS/HCC) Chronic airway obstruction, not elsewhere classified documented in this encounter Care Teams Reception Centre Manager Relationship Specialty Start Date End Date Roshan Jimenez DO NO ADDRESS ON FILE PCP - General 03/26/03 documented as of this encounter
--- OUTSIDE RECORDS SUMMARY | 2024-11-02 16:28 | XMS_ITS | Encounter Summary ---
Author Organization [facility] Address [address] [place] [address] Care Team Providers Care Maintenance Inspector Name Role Phone Fabian Camarillo Primary Care Provider [phone] Reason for Visit * Reason Onset Date Comments Needs Appointment 04/08/2024 reschedule appt 04/08/2024 No transportatio n, drive quit on Monday Encounter Details Date Type Department Care Team (Late st Contact Info) Description 04/08/2024 Telephone [facility] [address] [place] [address] Dane Sierra MD [address] [place] [phone] Needs Appointment; reschedule appt (No transportation, drive quit on Monday) Social History Tobacco Use Types Packs/Day Years Used Date Smoking Tobacco: Every Day Cigarettes 0.5 50 Passive Smoke Exposure: Current Smokeless Tobacco: Never [...] on file 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 Cardiology Senior Media Director: Maren Campbell PSR * Telephone Encounter - Monica Garrett - 04/08/2024 9:44 AM CDT Called and got appt rescheduled. * Telephone Encounter - Lizz Andrea - 04/08/2024 9:33 AM CDT Rigo (Provider) Caller: Mariam ([facility] ) Phone: MESSAGE Caller is needing to cancel and reschedule appt from 04/08/[address] Oghlakian, please advise. Cardiology Senior Media Director: Lizz Andrea documented in this encounter Plan of Treatment Upcoming Encounters Date Type Department Care Team (Late st Contact Info) Description 11/20/2024 11:40 AM CDT Office Visit [facility] [address] [place] [address] Chava Maciel MD [address] [place] [address] 10/24/2025 10:45 AM WASHER HAND Office Visit [facility] [address] [place] [address] Dane Sierra MD [address] [address] [place] [address] documented as of this encounter Visit Diagnoses Not on filedocumented in this encounter Care Teams Maintenance Inspector Relationship Specialty Start Date End Date Fabian Camarillo DO [address], [place] [address] PCP - General Family Practice 09/10/21 06/09/24 documented as of this encounter
--- OUTSIDE RECORDS SUMMARY | 2024-11-02 16:28 | XMS_ITS | Encounter Summary ---
Author Organization [facility] Address [address] [place] [address] Care Team Providers Care Neurology Physician Assistant Name Role Phone Roshan Jimenez DO Primary Care Provider Unav ailable Encounter Details Date Type Department Care Team (Latest Contact Info) Description 12/25/2000 Outpatient [facility] [address] [place] [phone] Roshan Jimenez DO NO ADDRESS ON FILE Obstructive chronic bronchitis with exacerbation (CMS/HCC) (Primary Dx); Unspecified chronic bronchitis (CMS/HCC); Unspecified sleep apnea; Obesity, unspecified Social History Tobacco Use Types Packs/Day Years Used Date Smoking Tobacco: Never Assessed Sex and Gender Information Value Date Recorded Sex Assigned at Not on file 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 Gender Identity Not on file Sexual Orientation Not on file documented as of this encounter Plan of Treatment Not on file documented as of this encounter Visit Diagnoses Diagnosis Obstructive chronic bronchitis with exacerbation (CMS/HCC)- Primary Obstructive chronic bronchitis with exacerbation Unspecified chronic bronchitis (CMS/HCC) Unspecified chronic bronchitis Unspecified sleep apnea Obesity, unspecified documented in this encounter Care Teams Neurology Physician Assistant Relationship Specialty Start Date End Date Roshan Jimenez DO NO ADDRESS ON FILE PCP - General 03/26/03 documented as of this encounter
--- OUTSIDE RECORDS SUMMARY | 2024-11-02 16:28 | XMS_ITS | Encounter Summary ---
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
--- OUTSIDE RECORDS SUMMARY | 2024-11-02 16:28 | XMS_ITS | Clinical Summary ---
Author Organization [facility] Address [address] [place] [address] Phone Care Team Providers Care Day Treatment Clinician/Art Therapist Name Role Phone Roshan Jimenez DO Primary Care Provider Unav ailable Allergies No known active allergies Medications oxygen home deliveryIndication s:Hypoxia, sleep related Administer 2 L/min in each nostril daily at bedtime. Is patients oxygen measured below 88% on room air at rest? - no. Is patient stable at home or within 3 days of discharge from hospital? - yes. Is the patient diagnosed with hypoxia? - yes. 1 Each 11 1 Active benazepril (LOTENSIN) 20 mg tablet Take 20 mg by mouth daily. 11 9 Active ProAir HFA 90 mcg/actuation inhalerIndications :Asthma with chronic obstructive pulmonary disease (COPD) ([facility]) TAKE 2 PUFFS BY INHALATION EVERY 4 HOURS NEEDED FOR RESPIRATION. 8.5 Gram 11 0 Active FLUoxetine (PROzac) 40 mg capsuleIndications :Recurrent major depressive disorder, in full remission,Generali zed anxiety disorder Take 1 Capsule (40 mg) by mouth daily. 30 Capsule 11 0 Active omeprazole (PriLOSEC) 20 mg Capsule, Delayed Release(E.C.)Indic ations:Gastroesoph ageal reflux disease without esophagitis TAKE 1 CAPSULE BY MOUTH DAILY 30 Capsule 11 0 Active potassium chloride (KLOR-CON) 10 mEq Extended Release tabletIndications: Essential hypertension,Depen dent edema Take 2 Tablets (20 mEq) by mouth daily. take when taking furosemide 30 Tablet 11 0 Active ferrous sulfate 325 mg (65 mg iron) tabletIndications: Other iron deficiency anemia Take 1 Tablet (325 mg) by mouth 3 times daily with meals. 180 Tablet 3 1 Active furosemide (LASIX) 80 mg tabletIndications: Essential hypertension,Depen dent edema Take 1 Tablet (80 mg) by mouth 1 time daily as needed (edema). 90 Tablet 3 1 Active doxycycline hyclate (VIBRAMYCIN) 100 mg capsuleIndications :Hidradenitis suppurativa Take 1 Capsule (100 mg) by mouth 2 times daily. 60 Capsule 3 1 Active gabapentin (NEURONTIN) 300 mg capsuleIndications :Acute bilateral low back pain with sciatica, sciatica laterality unspecified,Neurof oraminal stenosis of lumbar spine Take 1 Capsule (300 mg) by mouth 2 times daily. 60 Capsule 2 1 Active fluticasone-umecli dinium-vilanterol (Trelegy Ellipta) 100-62.5-25 mcg Disk with DeviceIndications: Asthma with chronic obstructive pulmonary disease (COPD) ([facility]) Take 1 Puff by inhalation daily. 3 Each 2 1 Active metFORMIN (GLUCOPHAGE) 500 mg tabletIndications: Hidradenitis suppurativa Take 1 Tablet (500 mg) by mouth 2 times daily with meals. 180 Tablet 3 1 Active traMADoL (ULTRAM) 50 mg tabletIndications: Primary osteoarthritis involving multiple joints TAKE 2 TABLETS BY MOUTH TWICE A DAY NEEDED FOR PAIN 120 Tablet 1 Active Active Problems Problem Noted Date Diagnosed Date Hidradenitis suppurativa 09/24/2019 Anemia of infection and chronic disease 11/24/19 19 Reactive thrombocytosis 11/23/2018 Hx of gastritis 01/18/2018 Recurrent major depressive disorder, in full rem ission 09/26/2017 Dependent edema 09/26/2017 Hypoalbuminemia 09/26/2017 Iron deficiency anemia 08/07/2017 Lumbar facet arthropathy 04/12/2016 Neuroforaminal stenosis of lumbar spine 04/12/20 16 DDD (degenerative disc disease), lumbosacral DDD (degenerative disc disease), lumbar 04/12/20 16 Synovial cyst of lumbar spine 01/20/2016 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 Overview (07/01/2013): Noted on SPEP 12/2011 SNHL (sensorineural hearing loss) 05/01/2012 Hypoxemia requiring supplemental oxygen 06/17/20 10 S/P Carpal Tunnel Release, right 02/16/2010 Herniated lumbar intervertebral disc 02/18/2009 Overview (02/18/2009): L4-L5, L5-S1 Gastroesophageal reflux disease without esophagi tis 01/28/2008 Essential hypertension 04/03/2007 Tobacco dependence 02/20/2007 Primary osteoarthritis involving multiple joints 02/20/2007 Overview (01/28/2008): Bilateral knees Obstructive sleep apnea 02/20/2007 Overview (01/28/2008): Oxygen, no CPAP Mixed hyperlipidemia 02/20/2007 Asthma with chronic obstructive pulmonary diseas e (COPD) 02/20/2007 Generalized anxiety disorder 02/20/2007 Resolved Problems Problem Noted Date Diagnosed Date Resolved Date Pressure ulcer of right buttock, stage 3 09/24/2019 01/06/2020 Hypocalcemia 11/25/2018 01/06/2020 Severe obesity (BMI 35.0-39. 9) with comorbidity 11/23/2018 12/02/2020 Abnormal intentional weight loss 11/23/2018 12/02/2020 Abscess and cellulitis of gluteal region 08/15/2017 12/02/2020 Morbid obesity with body mas s index of 40.0-49.9 04/12/2016 11/23/2018 Ligamentum flavum hypertrophy 04/12/2016 09/20/2020 Left lumbar radiculitis 04/12/201608/29 Sciatica neuralgia 07/14/2014 7 Special screening for malign ant neoplasms, colon 07/10/2013 07/14/2014 Tongue lesion 12/27/2011 07/01/2013 Muscle weakness of lower extremity 02/18/2009 07/22/2015 Lower back pain 02/18/2009 11/23/2018 Impacted cerumen 01/28/2008 12/15/2009 Overview (01/28/2008): bilaterally Bladder neck obstruction 02/20/2007 Benign prostatic hypertrophy 02/20/2007 09/18/2016 Chest pain 02/20/2007 12/15/2009 Overview (01/24/2008): noncardiac Immunizations Immunization Administration Dates Next Due (PNEUMOVAX 23)(50 YRS UP) PN EUMOCOCCAL POLYSACCHARIDE (PPV23) 0.5 ML, IM 07/20/2020,06/23/2011,07/13/2005 (PREVNAR 13)(6 WKS UP) PNEUM OCOCCAL CONJUGATE (PCV13) 0.5 ML, IM 11/23/2018 (SHINGRIX)(50 YRS UP) ZOSTER VACCINE RECOMBINANT, 0.5 ML, IM 11/26/2018,09/24/2018 INFLUENZA VACCINE HIGH DOSE QUADRIVALENT 65 YR UP PF IM 05/14/2020 INFLUENZA VACCINE QUADRIVALE NT 3 YR UP PF IM 05/18/2017 Influenza A (H1N1) Vaccine PF IM 08/18/2009 Influenza Seasonal Unspecifi ed Formulation IM 06/05/2013,06/07/2012,06/02/2010,05/28,06/25/2007,06/27/2006,05/30/2002 ,07/31/2001 Influenza Vaccine High Dose 65+ Yrs IM 9,06/01/2019,05/17/2018 Influenza Vaccine Split 3+ Yrs IM 07/08/2008 Influenza Vaccine Tri Split 4+ Pf Im 05/18/2016, 05/27/2014 PREVNAR (PCV13) pneumococcal 13-valent conjugate Vaccine 06/01/2019 Pneumococcal 13-milind Conj Vac c Patient Supplied 06/01/2019 Family History Medical History Relation Name Comments Diabetes Brother 1 Heart Attack Brother 2 Diabetes Father Heart Attack Mother Diabetes Sister Colon Cancer Neg Hx Relation Name Status Comments Brother 1 Brother 2 Father Mother Sister Social History Tobacco Use Types Packs/Day Years Used Date Smoking Tobacco: Every Day Cigarettes 1 55 Smokeless Tobacco: Never Tobacco Cessation:Ready to Q uit: No Alcohol Use Standard Drinks/Week Comments No 0 (1 standard drink = 0.6 oz pur e alcohol) Rare Sex and Gender Information Value Date Recorded Sex Assigned at Not on file 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 Gender Identity Not on file Sexual Orientation Not on file Occupation Industry Job Start Date Job End Date Not on file Not on file Not on file Not on file Last Filed Vital Signs Vital Sign Reading Time Taken Comments Blood Pressure 122/70 12/02/2020 10:01 AM CDT Pulse 88 12/02/2020 10:01 AM CDT Temperature 36.3 ??C (97.3 ??F) 11/11/2020 11:01 AM C DT Respiratory Rate 18 11/11/2020 11:01 AM CDT Oxygen Saturation 93% 12/02/2020 10:01 AM CDT Inhaled Oxygen Concentration - - Weight 108.4 kg (239 lb) 12/02/2020 10:01 AM CDT Height 182.9 cm (6') 12/02/2020 10:01 AM CDT Body Mass Index 32.41 12/02/2020 10:01 AM CDT Plan of Treatment Health Maintenance Due Date Last Done Comments DTAP/TDAP/TD VACCINES (1 - Tdap) 1971 FIT-DNA Q 3 years 1997 FIT/FOBT Q 1 year 1997 Flex Sig/CT Colonography Q 5 years 1997 COLORECTAL SCREENING 07/11/2023 07/11/2013, 07/10/2013, 03/26/2003, Additional history exists Colorectal Cancer Screening 07/11/2023 INFLUENZA VACCINE (#1) 2024 , 06/01/2019, 06/01/2019, Additional history exists RSV VACCINE (60+ or ) (1 - 1-dose 75+ series) 2027 ZOSTER VACCINE Completed 11/26/2018, 09/24/2018 PNEUMOCOCCAL VACCINE 50+ YEARS Completed 1 09/19/2019, 06/01/2019, 06/01/2019, Additional history exists Procedures Procedure Name Priority Date/Time Associated Diagnosis Comments ENDOSCOPY, COLON, SCREENING Routine 07/11/2013 12:39 PM DRIER ATTENDANT Special screening for malignant neoplasms, colon from Last 3 Months or Most Recently Relevant to Health Maintenance Results * ENDOSCOPY, COLON, SCREENING (07/11/2013 12:39 PM DRIER ATTENDANT) Narrative Transcriptions Demetri Chávez MD - 07/10/2013 5:25 PM CST [place] Patient: EDSON JAFFE CSN: [id number] : 1950 Provider: Demetri Chávez MD ENDOSCOPY [...] otherwise unremarkablecolonoscopy. Demetri Chávez MD MMODL D: [id number] V: [id number] cc: Roshan Jimenez DO Roshan Jimenez DO GI PROCEDURE ORDERABLES Fin al Result from Last 3 Months or Most Recently Relevant to Health Maintenance Insurance [place] [address] [place] [place] [address] DUAL COMPLETE MCR HMO SNP Advance Directives For more information, please contact: [phone] * Full Code (Latest Code Status on File) Date Activated Date Inactivated Comments 03/29/2017 12:38 PM 03/29/2017 3:25 PM * Full Code Date Activated Date Inactivated Comments 03/29/2017 11:46 AM 03/29/2017 12:38 PM * Full Code Date Activated Date Inactivated Comments 07/10/2013 3:19 PM 07/10/2013 6:34 PM * Full Code Date Activated Date Inactivated Comments 07/10/2013 2:33 PM 07/10/2013 3:19 PM * Full Code Date Activated Date Inactivated Comments 01/11/2010 12:22 PM 01/13/2010 11:02 PM Care Teams Day Treatment Clinician/Art Therapist Relationship Specialty Start Date End Date Roshan Jimenez DO NO ADDRESS ON FILE PCP - General 03/26/03
--- OUTSIDE RECORDS SUMMARY | 2024-11-02 16:28 | XMS_ITS | Encounter Summary ---
Author Organization [facility] Address [address] [place] [address] Care Team Providers Care Level Vial Inside Grinder Name Role Phone Unavailable Primary Care Provider Unavailabl e Reason for Visit * Reason Comments Follow Up 6 Month Follow Up Ap pointment Encounter Details Date Type Department Care Team (Late st Contact Info) Description 10/24/2024 10:40 AM MUD ANALYSIS WELL LOGGING OPERATOR Office Visit [facility] [address] [facility] [address] [place] [phone] Saritha Horton, [facility] [address] [facility] [address] [place] [phone] Chronic diastolic congestive heart failure (CMS/HCC) (Primary Dx); Shortness of breath; History of DVT (deep vein thrombosis); Benign hypertension Social History Tobacco Use Types Packs/Day [...] on file Legal Sex Male 12:11 AM MUD ANALYSIS WELL LOGGING OPERATOR Gender Identity Not on file Sexual Orientation Not on file documented as of this encounter Last Filed Vital Signs Vital Sign Reading Time Taken Comments Blood Pressure 120/68 10/24/2024 10:35 AM MUD ANALYSIS WELL LOGGING OPERATOR Pulse 81 10/24/2024 10:35 AM MUD ANALYSIS WELL LOGGING OPERATOR Temperature - - Respiratory Rate - - Oxygen Saturation - - Inhaled Oxygen Concentration - - Weight 147.1 kg (324 lb 6.4 oz) 025 10:35 AM MUD ANALYSIS WELL LOGGING OPERATOR Height 182.9 cm (6') 10/24/2024 10:35 AM MUD ANALYSIS WELL LOGGING OPERATOR Body Mass Index 44 10/24/2024 10:35 AM MUD ANALYSIS WELL LOGGING OPERATOR documented in this encounter Progress Notes * Saritha Horton, MARCEL - 10/24/2024 10:40 AM CST [facility] Clinic: Cardiology Primary Rim Fire Priming Operator: Dr. Sierra Progress Note Chief Complaint Patient presents with Follow Up 6 Month Follow Up Appointment SUBJECTIVE: Edson Jaffe is a 74 y.o. male seen for a follow up visit. He has -CHF -obesity -COPD Here for follow-up Has exertional dyspnea He is in a wheelchair today He wears oxygen at times Has chronic LE edema Has orthopnea Sleeps with his head elevated States he wakes up a lot during the night and at times feels short of breath when he wakes up States he feels better if he puts his oxygen on Lives in jail Has difficulty walking Quit smoking in Sep 19, 2023 No alcohol No drugs Current Outpatient Medications on File Prior to Visit Medication Sig Dispense Refill metOLazone (ZAROXOLYN) 5 mg tablet Take 5 mg by mouth daily. OTHER Protein liquid oral 30ml senna (EX-LAX) 15 mg Tablet Take by mouth. mag hydrox/aluminum hyd/simeth (ALUM-MAG HYDROXIDE-SIMETH ORAL) Take by mouth. docusate sodium (COLACE) 50 mg capsule Take 50 mg by mouth 2 times daily. FLUoxetine (PROzac) 10 mg tablet Take 10 mg by mouth daily. Take with with a 20 mg to =30 mg daily fdoryomejdl-kprooqskreod-mxxkhlheoo (Trelegy Ellipta) 200-62.5-25 mcg Disk with Device Take 1 Puff by inhalation daily. polyethylene glycol (MIRALAX) 17 gram Powder in Packet Take by mouth 1 time daily as needed for Constipation. ergocalciferol (VITAMIN D2) 50,000 unit capsule Take 50,000 Units by mouth every 30 days. MELATONIN ORAL Take 6 mg by mouth 1 time daily as needed. Eliquis 5 mg tablet Take 5 mg by mouth 2 times daily. albuterol sulfate HFA 90 mcg/actuation aerosol inhaler TAKE 2 PUFFS BY INHALATION EVERY 4 HOURS NEEDED FOR RESPIRATION. 17 Gram 0 magnesium hydroxide (MILK OF MAGNESIA) 400 mg/5 mL suspension Take 30 mL by mouth 1 time daily as needed for Constipation. bisacodyL (DULCOLAX) 5 mg Delayed Release tablet Take 5 mg by mouth 1 time daily as needed for Constipation. bisacodyL (DULCOLAX) 10 mg Suppository Insert 10 mg by rectum daily. acetaminophen (TYLENOL) 325 mg tablet Take 325 mg by mouth every 4 hours as needed. bnnmsqdrlmj-psepakqgaizn-dcqilivzyr (Trelegy Ellipta) 200-62.5-25 mcg Disk with Device Take 1 Puff by inhalation daily. 60 Each 11 omeprazole (PriLOSEC) 20 mg Capsule, Delayed Release(E.C.) Take 1 Capsule (20 mg) by mouth daily. 90 Capsule 3 furosemide (LASIX) 80 mg tablet Take 1 Tablet (80 mg) by mouth 1 time daily as needed (edema). 90 Tablet 1 gabapentin (NEURONTIN) 300 mg capsule Take 1 Capsule (300 mg) by mouth 2 times daily. 120 Capsule 5 spironolactone (ALDACTONE) 50 mg tablet Take 1 Tablet (50 mg) by mouth daily. 30 Tablet 5 loperamide (IMODIUM) 2 mg capsule Take 1 Capsule (2 mg) by mouth 4 times daily as needed for Diarrhea/Loose Stools. 30 Capsule 0 multivitamin with folic acid 400 mcg Tablet tablet Take 1 Tablet by mouth daily. 30 Tablet 0 oxyCODONE-acetaminophen (PERCOCET) 5-325 mg tablet Take 1 Tablet by mouth every 6 hours as needed for Pain, Moderate. Max Daily Amount: 4 Tablets 20 Tablet 0 FLUoxetine (PROzac) 20 mg capsule Take 20 mg by mouth daily. Take 20 mg with a 10 mg daily albuterol sulfate HFA 90 mcg/actuation aerosol inhaler Take 2 Puffs by inhalation every 6 hours as needed for Shortness of Breath. amoxicillin (AMOXIL) 500 mg capsule Take 500 mg by mouth 3 times daily. magnesium citrate solution Take 10 mg by mouth one time only. calcium carbonate-mag hydroxide (MYLANTA SUPREME) 400-135 mg/5 mL Suspension Take 1 mL by mouth. ferrous sulfate (FeroSuL) 325 mg (65 mg iron) tablet TAKE 1 TABLET BY MOUTH TWICE A DAY 180 Tablet 1 nicotine (NICODERM CQ) 21 mg/24 hr patch Apply 1 Patch to skin as directed daily. 14 Patch 0 prochlorperazine maleate (COMPAZINE) 10 mg tablet Take 1 Tablet (10 mg) by mouth every 6 hours as needed for Nausea/Emesis. 10 Tablet 0 sodium hypochlorite (DAKIN'S) 0.25% half-strength Solution Apply to affected area daily. 473 mL 0 zinc oxide-cod liver oil (Desitin) 40 % Paste Apply to affected area see administration instructions. 30 Gram 0 No current facility-administered medications on file prior to visit. No Known Allergies Family History Problem Relation Name Age of Onset Colon Cancer Neg Hx Diabetes Brother Diabetes Sister Diabetes Father Heart Attack Mother Heart Attack Brother Social History Tobacco Use Smoking status: Former Types: Cigarettes Start date: 09/19/2023 Quit date: 03/21/1964 Years since quittin.6 Passive exposure: Current Smokeless tobacco: Never Substance Use Topics Alcohol use: No Alcohol/week: 0.0 standard drinks of alcohol OBJECTIVE: BP 120/68 (BP Location: Right arm, Patient Position (BP): Sitting, BP Cuff Size: Adult) Pulse 81 Ht 6' (1.829 m) Wt (!) 147.1 kg (324 lb 6.4 oz) BMI 44.00 kg/m?? Wt Readings from Last 3 Encounters: 10/24/24 (!) 147.1 kg (324 lb 6.4 oz) 05/23/24 (!) 147.4 kg (325 lb) 04/22/24 (!) 148.3 kg (327 lb) General appearance: frail, in no acute distress Skin: warm and dry Eyes: conjunctivae pink Ears, Nose, Throat: oropharynx moist Neck: supple, + JVD, normal carotid upstroke, no carotid bruits Lungs: scattered rhonchi to auscultation bilaterally Heart: normal S1 and S2, without murmurs, rubs or gallops; regular rhythm Extremities: no cyanosis, clubbing, 2+ pitting LE edema Neurologic: alert and oriented, normal affect ASSESSMENT/PLAN: This is a 74 y.o. male patient who is here for evaluation and treatment of shortness of breath and CHF CHF: Patient with heart failure with preserved ejection fraction Multiple risk factors Mild volume overload On Lasix 80mg daily and Aldactone 50mg daily Uses metolazone as needed- has received doses the past few days Heart Failure: Preserved Ejection Fraction (HFpEF) Guideline-directed medications (SOR): Current: Notes/plan: SGLT2i (2a) No value filed. Would avoid due to incontenence and open ulcers to legs Titrate medication to reach blood pressure targets (1) spironolactone (ALDACTONE) 50 mg tablet [[id number]] Diuretics as needed (1) furosemide (LASIX) 80 mg tablet [[id number]], metOLazone (ZAROXOLYN) 5 mg tablet [[id number]] Advance care planning & code status Code Status: Prior Date of Last ACP: none Recommend salt and fluid restriction Echo with low normal EF Might have wall motion abnormalities Encourage leg elevation for the lower extremity edema Shortness of breath: Likely related to history of tobacco use and obesity and diastolic dysfunction Also seems to have wall motion abnormality on echo Might be anginal equivalent Recommend pharmacologic nuclear stress test to evaluate for underlying CAD History of DVT: On anticoagulation with Eliquis Continue same Hypertension: Blood pressure is well-controlled Tobacco use: He has been abstinent Recommend continued abstinence Obesity: Commend weight loss He is in a wheelchair Encouraged ambulation Current treatment plan is effective, no change in therapy Office visit in 1 year(s) Discussed cardioprotective measures and heart-healthy lifestyle He was instructed to call for any problems or questions. Patient was educated regarding heart failure diagnosis, signs and symptoms of exacerbation, dietaryrestrictions, daily Na restriction of 1500-2000mg, 48-64 ounce fluid restriction, needs for follow up, daily weights, etc. Notify office of 3lb weight gain over night or gradual 5lbs over 2-7 days. Call office for increased shortness of breath or edema for further instruction. MARCEL Suarez ANALYSIS WELL LOGGING OPERATOR documented in this encounter Procedure Notes * Saritha Horton FNP - 10/24/2024 11:01 AM CSTAssociated Order(s): EKG 12-LEAD Procedure(s): [place] ECG ROUTINE ECG W/LEAST 12 LDS W/I&R Pre-Procedure Diagnose(s): Chronic diastolic congestive heart failure (CMS/HCC); Shortness of breath; History of DVT (deep vein thrombosis); Benign hypertension NSR, rate 81 ANALYSIS WELL LOGGING OPERATOR documented in this encounter Plan of Treatment Upcoming Encounters Date Type Department Care Team (Late st Contact Info) Description 11/20/2024 11:40 AM CDT Office Visit [facility] Vascular Surgery [place] [address] [address] Chava Maciel MD [address] [facility] [address] [place] [address] 10/24/2025 10:45 AM MUD ANALYSIS WELL LOGGING OPERATOR Office Visit [facility] [address] [place] [phone] Dane Sierra MD [address] [place] [address] documented as of this encounter Procedures Procedure Name Priority Date/Time Associated Diagnosis Comments AZ ECG ROUTINE ECG W/LEAST 12 LDS W/I&R Routine 10/24/2024 11:01 AM MUD ANALYSIS WELL LOGGING OPERATOR Chronic diastolic congestive heart failure (CMS/HCC) Shortness of breath History of DVT (deep vein thrombosis) Benign hypertension documented in this encounter Results * AZ ECG ROUTINE ECG W/LEAST 12 LDS W/I&R (10/24/2024 11:01 AM MUD ANALYSIS WELL LOGGING OPERATOR) Narrative [facility] - 10/24/2024 11:01 AM MUD ANALYSIS WELL LOGGING OPERATOR Saritha Horton FNP ? 10/24/2024 11:10 AM NSR, rate 81 Procedure Note Saritha Horton FNP - 10/24/2024 11:01 AM CST NSR, rate 81 us Saritha ROD ECG ORDERABLES Final Result [facility] [id number] [address] [facility] [address] [place] [phone], documented in this encounter Visit Diagnoses Diagnosis Chronic diastolic congestive heart failure (CMS/HCC)- Primary Chronic diastolic heart failure Shortness of breath History of DVT (deep vein thrombosis) Personal history of venous thrombosis and embolism Benign hypertension Essential hypertension, benign documented in this encounter
--- OUTSIDE RECORDS SUMMARY | 2024-11-02 16:28 | XMS_ITS | Encounter Summary ---
Author Organization [facility] Address [address] [place] [address] Care Team Providers Care Executive Casino Host Name Role Phone Roshan Jimenez DO Primary Care Provider Unav ailable Encounter Details Date Type Department Care Team (Latest Contact Info) Description 02/15/2005 Outpatient Historical [facility] [address] [place] [address] Roshan Jimenez DO NO ADDRESS ON FILE CORONARY ATHEROSCLER UNSPEC VESSEL (Primary Dx) Social History Tobacco Use Types Packs/Day Years Used Date Smoking Tobacco: Never Assessed Sex and Gender Information Value Date Recorded Sex Assigned at Not on file Legal Sex Male 4:59 AM CARTON STENCILER Gender Identity Not on file Sexual Orientation Not on file documented as of this encounter Plan of Treatment Not on file documented as of this encounter Procedures Procedure Name Priority Date/Time Associated Diagnosis Comments THEOPHYLLINE LEVEL Routine 02/15/2005 10 :20 AM CDT documented in this encounter Results * (ABNORMAL) THEOPHYLLINE LEVEL (02/15/2005 10:20 AM CDT) THEOPHYLLINE LEVEL 2.3(L) 10.0 - 20.0 mcg/mL INTERFACE SYSTEM 02/15/2005 10:2 0 AM CDT Roshan Jimenez DO CHEMISTRY ORDERABLES Final Result INTERFACE SYSTEM Refer to clinic/hospital department documented in this encounter Visit Diagnoses Diagnosis Coronary atherosclerosis of unspecified type of vessel, chuloonawick or graft- Primary documented in this encounter Care Teams Executive Casino Host Relationship Specialty Start Date End Date Roshan Jimenez DO NO ADDRESS ON FILE PCP - General 03/26/03 documented as of this encounter
--- OUTSIDE RECORDS SUMMARY | 2024-11-02 16:28 | XMS_ITS | Encounter Summary ---
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
--- OUTSIDE RECORDS SUMMARY | 2024-11-02 16:28 | XMS_ITS | Encounter Summary ---
Author Organization [facility] Address [address] [place] [address] Care Team Providers Care Mold Yard Worker Name Role Phone Roshan Jimenez DO Primary Care Provider Unav ailable Encounter Details Date Type Department Care Team (Late st Contact Info) Description 04/02/2000 Outpatient Historical [facility] [address] [place] [phone] Social History Tobacco Use Types Packs/Day Years Used Date Smoking Tobacco: Never Assessed Sex and Gender Information Value Date Recorded Sex Assigned at Not on file Legal Sex Male 4:59 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
--- OUTSIDE RECORDS SUMMARY | 2024-11-02 16:28 | XMS_ITS | Encounter Summary ---
Author Organization [facility] Address [address] [place] [address] Care Team Providers Care Senior Office Assistant Name Role Phone Roshan Jimenez DO Primary Care Provider Unav ailable Encounter Details Date Type Department Care Team (Latest Contact Info) Description 05/29/2001 Outpatient [facility] [address] [place] [address] Roshan Jimenez DO NO ADDRESS ON FILE Unspecified essential hypertension (Primary Dx); Depressive disorder, not elsewhere classified; Chronic airway obstruction, not elsewhere classified (CMS/HCC) Social History Tobacco Use Types Packs/Day Years Used Date Smoking Tobacco: Never Assessed Sex and Gender Information Value Date Recorded Sex Assigned at Not on file Legal Sex Male 4:59 AM 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
--- OUTSIDE RECORDS SUMMARY | 2024-11-02 16:28 | XMS_ITS | Encounter Summary ---
Author Organization [facility] Address [address] [place] [address] Care Team Providers Care Customer Service Operator Name Role Phone Roshan Jimenez DO Primary Care Provider Unav ailable Encounter Details Date Type Department Care Team (Latest Contact Info) Description 05/23/2000 Outpatient Historical [facility] Dermatology- [facility] [place] [address] [place] [phone] Irineo Snyder MD [address] [place] [phone] Hidradenitis (Primary Dx); Benign miguel skin trunk Social History Tobacco Use Types Packs/Day Years Used Date Smoking Tobacco: Never Assessed Sex and Gender Information Value Date Recorded Sex Assigned at Not on file Legal Sex Male 4:59 AM SURGICAL ENDOSCOPIST Gender Identity Not on file Sexual Orientation Not on file documented as of this encounter Plan of Treatment Not on file documented as of this encounter Visit Diagnoses Diagnosis Hidradenitis- Primary Benign miguel skin trunk Benign neoplasm of skin of trunk, except scrotum documented in this encounter Care Teams Customer Service Operator Relationship Specialty Start Date End Date Roshan Jimenez DO NO ADDRESS ON FILE PCP - General 03/26/03 documented as of this encounter
[2024-11-02 16:31] LABS: Lactic Acid level (Lactate) 2.7 mmol/L (0.5-2.2)
--- NOTE | 2024-11-02 17:36 | PM.HP ---
Providers/Chief Complaint Admitting Physician: Pavithra Carranza MD Primary Care Provider: Fabian Camarillo DO Chief Complaint: resp distress History of Present Illness Edson Jaffe is a 74 year old male with a past medical history of DVT, on chronic anticoagulation with Eliquis, A-fib, CHF, chronic lower extremity wounds and sacral wound for which he receives wound care at a nursing facility where he is a long-term resident. He is brought to the emergency room today with chief complaints of difficulty breathing. He was noted to have increased work of breathing, crackles on exam, reduced air entry into the left side with concerns for pneumonia and was therefore referred back to the emergency room. Upon arrival here he was noted to be hypoxic with oxygen saturation in the low 80s. He needed to be started on BiPAP ventilation due to significant respiratory distress and accessory muscle use. He was tachypneic and unable to have a conversation. He has Guirgius bilateral lower extremity edema which patient states has been increasing for weeks. Additionally noted to have cellulitis of the right lower extremity with drainage from one of the right lower extremity wounds. He has a chronic sacral ulcer at least since May 2024 which has been dressed with Hydrofera Blue at the detention, denies any recent discharge or previous diagnosis of osteomyelitis to me. Denies any recent fever dysuria nausea vomiting diarrhea or abdominal discomfort. Review of Systems General: Reports: 10 or more systems reviewed and unremarkable except in HPI and below Const: Denies: fever(s), chills or body aches Eyes: Denies: change in vision, blurry vision or photophobia ENMT: Reports: hoarseness; Denies: throat pain, enlarged tonsils, odynophagia or nasal congestion Card: Denies: chest pain, palpitations, irregular heart rhythm, edema, swelling of feet/ankles, lightheadedness, pre-syncope, dyspnea on exertion or orthopnea Resp: Denies: dyspnea, productive cough, non-productive cough, wheezing, stridor, pain on inspiration, change in phlegm color, hemoptysis or chest congestion GI: Denies: abdominal pain, nausea, vomiting, hematemesis, coffee ground emesis, dysphagia, heartburn, diarrhea, constipation, GI cramping, change in stool character, hematochezia or melena : Denies: flank pain, dysuria, urinary frequency, urinary urgency, urinary hesitancy or hematuria Musc: Denies: neck pain, back pain, extremity pain, joint swelling, joint warmth or deformity Neuro: Denies: headache(s), numbness in extremities, weakness in extremities, sensory changes, difficulty walking, frequent falls, dizziness, vertigo, behavioral changes, Slurred speech present or seizure-like activity Psych: Denies: anxiety, depression, suicidal ideation or homicidal ideation Endo: Denies: polyuria, polydipsia, tired all the time, cold intolerance or hot flashes Tyrell/Lymph: Denies: easy bruising or easy bleeding Medications/Allergies Home Medications ?Medication ?Instructions ?Recorded ?Confirmed ?Last Taken ?Type albuterol sulfate 90 mcg/actuation 2 puff inhalation Q4H PRN 11/02/24 11/02/24 Unknown History aerosol inhaler Shortness Of Breath Or Wheezing aluminum-mag hydroxide-simethicone 30 ml PO Q2H PRN 11/02/24 11/02/24 Unknown History 400 mg-400 mg-40 mg/5 mL oral susp indigeston/heartburn/gas (Mylanta Maximum Strength) apixaban 5 mg tablet (Eliquis) 5 mg PO BID 11/02/24 11/02/24 Unknown History bisacodyl 10 mg rectal suppository 10 mg RI .Q72H PRN Constipation 11/02/24 11/02/24 Unknown History bisacodyl 5 mg tablet 20 mg PO .Q72H PRN Constipation 11/02/24 11/02/24 Unknown History docusate sodium 100 mg capsule 100 mg PO BID 11/02/24 11/02/24 Unknown History (Colace) ergocalciferol (vitamin D2) 1,250 50,000 mcg PO Q7D 11/02/24 11/02/24 10/31/24 History mcg (50,000 unit) capsule fluoxetine 40 mg capsule 40 mg PO DAILY 11/02/24 11/02/24 11/02/24 History fluticasone fur. 200 mcg-umeclid 1 inh inhalation DAILY 11/02/24 11/02/24 11/02/24 History 62.5 mcg-vilant 25 mcg inhalat.powder (Trelegy Ellipta) furosemide 80 mg tablet 80 mg PO DAILY 11/02/24 11/02/24 11/02/24 History gabapentin 300 mg capsule 300 mg PO BID 11/02/24 11/02/24 11/02/24 History ipratropium 0.5 mg-albuterol 3 mg 3 ml inhalation BID 11/02/24 11/02/24 11/02/24 History (2.5 mg base)/3 mL nebulization soln loperamide 2 mg-simethicone 125 mg 1 tab PO Q6H PRN Diarrhea 11/02/24 11/02/24 Unknown History tablet magnesium hydroxide 400 mg/5 mL 30 ml PO DAILY PRN Constipation 11/02/24 11/02/24 Unknown History oral suspension (Milk of Magnesia) melatonin 3 mg tablet 6 mg PO BEDTIME 11/02/24 11/02/24 11/01/24 History multivitamin 1 tab PO QAM 11/02/24 11/02/24 11/02/24 History omeprazole 20 mg tablet,delayed 20 mg PO DAILY 11/02/24 11/02/24 11/02/24 History release oxycodone-acetaminophen 10 mg-325 1 tab PO Q6H PRN Pain 11/02/24 11/02/24 Unknown History mg tablet polyethylene glycol 3350 17 17 g PO DAILY PRN bowel management 11/02/24 11/02/24 Unknown History gram/dose oral powder (Miralax) protein supplement See Rx Instructions .Route .COMPLEX 11/02/24 11/02/24 11/02/24 History semaglutide 0.25 mg or 0.5 mg (2 0.5 mg SUBCUT Q7D 11/02/24 11/02/24 11/01/24 History mg/3 mL) subcutaneous pen injector (Ozempic) sennosides 8.6 mg tablet (senna) 8.6 mg PO DAILY 11/02/24 11/02/24 11/02/24 History spironolactone 50 mg tablet 50 mg PO DAILY 11/02/24 11/02/24 11/02/24 History Allergies Allergy/AdvReac Type Severity Reaction Status Date / Time No Known Allergies Allergy Verified 07/07/24 10:52 Vitals/I&O/Wt Last Vital Signs Temp 99.8 F H 11/02/24 12:40 Pulse 102 H 11/02/24 17:05 Resp 35 H 11/02/24 16:30 BP 125/70 11/02/24 17:05 Pulse Ox 92 11/02/24 17:05 O2 Del Method Nasal Cannula 11/02/24 13:10 O2 Flow Rate 3 11/02/24 13:10 11/02/24 11/02/24 11/02/24 06:59 14:59 22:59 Intake Total 500 / 500 Balance 500 / 500 Weight last 48 hrs Weight 155.491 kg Physical Exam Narrative: General: Acutely ill-appearing, lethargic, tachypneic in conversation, respiratory rate up to 35 and attempting to talk. HEENT: PERRLA, pupils bilaterally equal and reactive, pallors not present Chest: Coarse crackles to auscultation diffusely bilaterally CVS: S1-S2 regular, no murmurs, no tachycardia, no gallops, no rubs Abdomen: Soft, nontender, no organomegaly, bowel sounds present Neuro: no gross motor deficits, however does not move bilateral lower extremities owing to massive edema. Extremities: Bilateral massive lower extremity edema with weeping ulcers over bilateral extremities. Right is worse than left with signs of cellulitis involving the mid extremity. Urinary Catheter Management: Robertson: Cath Placed During This Visit: yes Urinary Catheter Date of Insertion: 11/02/24 Urinary Catheter Time of Insertion: 13:58 Data 11/03/24 05:20 11/03/24 05:20 Micro: Microbiology 11/02/24 13:07 Blood Culture - Preliminary Blood SPECIMEN COLLECTED 11/02/24 13:14 Blood Culture - Preliminary Blood SPECIMEN COLLECTED A&P Assessment and plan (1) Acute hypoxemic respiratory failure: Patient presenting to the hospital with acute hypoxic respiratory failure dyspnea chest x-ray with evidence of bilateral infiltrates per personal interpretation, elevated BNP at 5000 together with lower extremity edema with features consistent with CHF. He was received Lasix 60 mg IV in the emergency room. Will additionally start diuresis with Lasix 40 mg IV every 12 hours. Closely monitor urine output and creatinine with initiation of IV Lasix. pO2 of 63 on ABG on supplemental 3 L/min oxygen. Patient is currently necessitating initiation of BiPAP due to increased work of breathing, accessory muscle use. Additionally has a history of COPD.Currently his respiratory distress appears to be most likely related to pulmonary edema started on a COPD flare. DuoNeb inhalation every 6 hours added alongside budesonide 0.5 mg twice daily. (2) Cellulitis: Bilateral lower extremity edema which is longstanding, worsening over many weeks. Currently has evidence of right lower extremity cellulitis. Blood cultures taken in the emergency room Start piperacillin/tazobactam and vancomycin for treatment. Monitor for improvement Wound care nurse consult for daily wound care. Additionally has chronic sacral wound dating back to at least May 2024. No gross signs of cellulitis around the site. Will obtain CT imaging to assess for any underlying osteomyelitis and assess need for debridement. (3) Congestive heart failure: Lasix 40 mg IV every 12 hours Closely monitor kidney function and urine output. Plan DVT ppx: Eliquis 5mg BID PDMP PDMP Reviewed: Not Reviewed Attestations Medical Necessity Statement*: > 2 midnight stay as needed for multiple reasons as noted above, IV antibiotics, IV diuresis. Critical Care Time: The high probability of a clinically significant, sudden or life threatening deterioration of the patient's [respiratory, cardiac, infectious] system(s) required my full and direct attention, intervention and personal management. The critical care time is as shown. This time is in addition to time spent performing any reported procedures but includes the following: [x] Data and vital sign review and interpretation [x] Patient assessment, examination and intervention [x] Documentation [x] Medication orders and management Critical Care Time (min): 45 Coding Level of Care Code Acute Code for [facility] Diagnoses Acute hypoxemic respiratory failure J96.01 Cellulitis L03.90 Congestive heart failure I50.9
--- NOTE | 2024-11-02 17:52 | ECG_ITS ---
[facility] Test Date: 2024-11-02 Pat Name: Edson Jaffe Department: Room: ICU07 Gender: Male [employer] Architect: : 1950 Requested By: Francis Mcintyre Order Number: [id number] Richar MD: Kaz Stafford M.D. Measurements Intervals [place] Rate: 106 P: 64 HI: 172 QRS: -17 QRSD: 93 T: 59 QT: 339 QTc: 450 Interpretive Statements SINUS TACHYCARDIA LOW QRS VOLTAGE IN PRECORDIAL LEADS [QRS DEFLECTION < 1.0 mV IN CHEST LEADS] ANTEROSEPTAL MYOCARDIAL INFARCTION , PROBABLY OLD [40+ ms Q WAVE IN V1-V4] Compared to ECG 11/02/2024 15:25:13 No significant changes Electronically Signed On 11-02-2024 19:26:03 [employer]UIT [employer] by Kaz Stafford M.D. [email or web address]
[2024-11-02] MEDS: FUROsemide 10 mg/mL SDV 4mL 40 MG IVP (17:57)
[2024-11-02] MEDS: apixaban 5 mg Tablet PO (18:05)
[2024-11-02] MEDS: oxyCODONE-APAP 10-325 mg Tablet 1 TAB PO (18:05)
--- NOTE | 2024-11-02 18:57 | PC.NURSE ---
Wounds: Wound #1 Patient has Right buttocks/sacral area wound measuring 30cm in length, 20cm in width and 5cm in depth, hydrofera blue applied with optifoam to cover. Much scaring also noted in area. Wound #2 Left lower anterior leg stasis ulcer open to air, small amount of brown discharge. Wound #3 Left lower posterior stasis ulcer covered with otifoam, small amount of yellow discharge. Wound #4 Right lower anterior stasis ulcer small amount of yellow discharge, covered with optifoam dressing. Dr. Carranza consulted wound care nurse, until wound care sees patient above dressings requested.
[2024-11-02 19:28] LABS: Troponin 5 6HR 38.34 ng/L (0-15)
[2024-11-02 19:31] LABS: Troponin 5 6HR Delta -7.66 ng/L (0-12)
[2024-11-02] MEDS: morphine 4 mg/mL SDV 1 mL 2 MG IVP (23:32)
[2024-11-03] VITALS (42 sets, daily range): BP systolic 103–176; BP diastolic 52–114; PULSE 79–97; RESP 16–34; TEMP 36.8–37.7; O2SAT 93–99
[2024-11-03] MEDS: oxyCODONE-APAP 10-325 mg Tablet 1 TAB PO ×2 (03:53→12:00)
[2024-11-03] MEDS: vancomycin 1,500 MG/300 ML PIGGYBACK 200 MG IV ×2 (04:44→16:11)
[2024-11-03] MEDS: FUROsemide 10 mg/mL SDV 4mL 40 MG IVP ×2 (04:44→17:58)
[2024-11-03 05:49] LABS: Basophils % 0.1 %; Hematocrit 30.5 % (37-53); Lymphocytes # 0.5 10^3/uL (0.8-4.8); Lymphocytes % 1.7 %; Mean Corpuscular HGB Conc 27.9 g/dL (30-55); Mean Corpuscular Hemoglobin 25.2 pg (27-33); Mean Corpuscular Volume 90.5 fl (82-101); Mean Platelet Volume 8.9 fL (7.4-10.4); Monocytes # 1.2 10^3/uL (0.2-0.9); Monocytes % 4.1 %; Neutrophils # 26.22 10^3/uL (1.8-7.7); Neutrophils % 93.2 %; Nucleated Red Blood Cells % 0 %; Platelet Count 385 10^3/cmm (157-399); Red Blood Count 3.37 10^6/uL (3.85-5.65); Red Cell Distribution Width 16.4 % (12.1-15.1); White Blood Count 28.15 10^3/uL (3.29-11.43)
[2024-11-03 06:12] LABS: Alanine Aminotransferase 18 U/L (0-41); Albumin Level 2.3 g/dL (3.5-5.2); Alkaline Phosphatase 104 U/L (40-130); Anion Gap 14.2 (5-19); Aspartate Amino Transferase 18 U/L (0-40); Blood Urea Nitrogen 40 mg/dL (8-23); Carbon Dioxide 28 mmol/L (22-29); Chloride 100 mmol/L (98-107); Creatinine Clr Calc Pharmacy 63.5325; Globulin 6.2 g/dL (1.3-4.6); Glucose 218 mg/dL (65-115); Magnesium 2.1 mg/dL (1.7-2.3); Osmolality Calculated 302 mOsm/kg (285-295); Potassium 4.2 mmol/L (3.5-5.1); Sodium 138 mmol/L (136-145); Total Bilirubin 0.4 mg/dL (0.15-1.2); Total Protein 8.5 g/dL (6.6-8.7)
[2024-11-03] MEDS: piperacillin-tazobactam 3.375 GM in sodium chloride 0.9% (plus) 50 ML IV ×2 (09:26→17:56)
[2024-11-03] MEDS: fluoxetine 20 mg Capsule 40 MG PO (09:27)
[2024-11-03] MEDS: pantoprazole DR 40 mg Tablet PO (09:27)
[2024-11-03] MEDS: apixaban 5 mg Tablet PO ×2 (09:27→17:58)
--- NOTE | 2024-11-03 10:35 | CTR_ITS ---
PROCEDURE INFORMATION: Exam: CT Pelvis Without Contrast, Skeleton Exam date and time: 11/03/2024 9:57 AM Age: 74 years old Clinical indication: Other: Assess for osteomyelitis, chronically draining sacral wound, now with sepsis, assess TECHNIQUE: Imaging protocol: Computed tomography of the pelvis without contrast. Exam focused on the skeleton. Radiation optimization: All CT scans at this facility use at least one of these dose optimization techniques: automated exposure control; mA and/or kV adjustment per patient size (includes targeted exams where dose is matched to clinical indication); or iterative reconstruction. COMPARISON: [place] [id number] 11/02/2024 2:01 PM RADIATION DOSE METRICS: Total DLP (mGy-cm): 1603.24 FINDINGS: Tubes, catheters and devices: A balloon bladder catheter is present. Kidneys and ureters: There is a simple cyst in the right kidney. Bones/joints: No cortical irregularities of the sacrum or periosteal reaction. No acute fracture. No dislocation. Decreased bone mineralization, lumbar spondylosis, mild grade 1 anterolisthesis of L3 onto L4. Soft tissues: Diffuse subcutaneous skin thickening of the gluteus with soft tissue fat stranding along the sacrum, no organized collections. Lymph nodes: Left external iliac chain lymphadenopathy measuring up to 1.3 centimeters in short axis. right inguinal enlarged lymph node measuring up to 2.[address]/CT bony pelvis 41396 IMPRESSION: 1. Unremarkable sacrum. 2. Lumbar spondylosis. 3. Diffuse subcutaneous skin thickening of the medial gluteus soft tissues which may indicate soft tissue infection, there is mild fat stranding, no organized collections. 4. Pelvic and right inguinal lymphadenopathy measuring up to 2.1 centimeters. Attention on follow-up. COMMENTS: Consistent with the [employer]'s Incidental Findings Committee white paper (J Am Ariadne Radiol 2018): Any incidental renal lesion less than 1 cm or classified as too small to characterize, or any incidental cystic renal lesion characterized as simple-appearing, is likely benign. No follow-up imaging is recommended for these lesions per consensus recommendations based on imaging criteria.
--- NOTE | 2024-11-03 13:39 | PM.PN ---
Subjective Subjective: Patient is much more alert and awake today. He is hungry and would like to eat. White blood cell count trending down at 28,000. Medications: Reviewed: Yes Vitals/I&O/Wt Last Vital Signs Temp 98.3 F 11/03/24 09:30 Pulse 87 11/03/24 09:30 Resp 19 H 11/03/24 12:00 BP 118/65 11/03/24 09:30 Pulse Ox 96 11/03/24 12:00 O2 Del Method Nasal Cannula 11/03/24 09:30 O2 Flow Rate 3 11/02/24 17:59 FiO2 30 11/03/24 03:33 11/02/24 11/03/24 11/03/24 22:59 07:59 14:59 Intake Total 850 / 850 350 / 1200 16.458 / 16.458 Output Total 950 / 950 Balance 850 / 850 -600 / 250 16.458 / 16.458 Weight last 48 hrs Weight 152.679 kg Weight 155.582 kg Weight 155.491 kg Physical Exam Narrative: General: \Much more alert and awake, more comfortable with his breathing. HEENT: PERRLA, pupils bilaterally equal and reactive, pallors not present Chest: Crackles to auscultation right upper lobe, rest clear to auscultation. CVS: S1-S2 regular, no murmurs, no tachycardia, no gallops, no rubs Abdomen: Soft, nontender, no organomegaly, bowel sounds present Neuro: no gross motor deficits, however does not move bilateral lower extremities owing to massive edema. Extremities: Bilateral massive lower extremity edema with weeping ulcers over bilateral extremities. Right is worse than left with signs of cellulitis involving the mid extremity. Urinary Catheter Management: Robertson: Cath Placed During This Visit: yes Reason for Continuing Indwelling Catheter: Accurate Measurement of Urinary Output in Critically Ill Patients Urinary Catheter Date of Insertion: 11/02/24 Urinary Catheter Time of Insertion: 13:58 Data 11/03/24 05:20 11/03/24 05:20 Micro: Microbiology 11/02/24 13:07 Blood Culture - Preliminary Blood NEGATIVE TO DATE 11/02/24 13:14 Blood Culture - Preliminary Blood NEGATIVE TO DATE A&P Assessment and plan (1) Acute hypoxemic respiratory failure: Patient presenting to the hospital with acute hypoxic respiratory failure dyspnea chest x-ray with evidence of bilateral infiltrates per personal interpretation, elevated BNP at 5000 together with lower extremity edema with features consistent with CHF. He was received Lasix 60 mg IV in the emergency room. Will additionally start diuresis with Lasix 40 mg IV every 12 hours. Closely monitor urine output and creatinine with initiation of IV Lasix. pO2 of 63 on ABG on supplemental 3 L/min oxygen. Patient is currently necessitating initiation of BiPAP due to increased work of breathing, accessory muscle use. Additionally has a history of COPD.Currently his respiratory distress appears to be most likely related to pulmonary edema started on a COPD flare. DuoNeb inhalation every 6 hours added alongside budesonide 0.5 mg twice daily. (2) Cellulitis: Bilateral lower extremity edema which is longstanding, worsening over many weeks. Currently has evidence of right lower extremity cellulitis. Blood cultures taken in the emergency room Start piperacillin/tazobactam and vancomycin for treatment. Monitor for improvement Wound care nurse consult for daily wound care. Additionally has chronic sacral wound dating back to at least May 2024. No gross signs of cellulitis around the site. Will obtain CT imaging to assess for any underlying osteomyelitis and assess need for debridement. (3) Congestive heart failure: Lasix 40 mg IV every 12 hours Closely monitor kidney function and urine output. Plan DVT ppx: Eliquis 5mg BID DNR/DNI per review of skilled nursing records November 03, 2024 Urine output 950 cc. Creatinine at 1.6. Clinically he is much more alert and awake today. Breathing is more comfortable. Oxygen supplementation at 3 L/min. Off BiPAP. Lower extremity cellulitis overall appearing unchanged thus far. Blood culture negative. CT of the pelvis does not show any signs of underlying osteomyelitis. Urine analysis with trace leukocyte esterase, no significant WBCs, negative nitrate, 1+ bacteria, less likely UTI. Lower extremity Doppler negative for DVT. Intermittently 26. Continue IV antibiotics. BiPAP at nighttime and as needed. Resume home dose of gabapentin. PDMP PDMP Reviewed: Not Reviewed Attestations Medical Necessity Statement*: Continue admission for IV antibiotics, IV diuresis Coding Level of Care Code Acute Code for [facility] Diagnoses Acute hypoxemic respiratory failure J96.01 Cellulitis L03.90 Congestive heart failure I50.9
--- NOTE | 2024-11-03 13:59 | USCV_ITS ---
McphersonEdson booth Age: 74 Gender: M : 1950 Exam Date: 11/03/2024 08:42 Ordering Phys: Francis Mclaughlin DO Technologist: [employer]Bst Bird Exam Location: [facility] [place] Indication: chf BP: 135 / 88 HR: 86 Rhythm: Sinus Technical Quality: Adequate MEASUREMENTS (Male / Female) Normal Values 2D ECHO LVOT Diameter 2.0 cm LV Ejection Fraction MOD 4C 74.1 % LV Ejection Fraction MOD 2C 66.0 % LV Ejection Fraction 2C AL 64.6 % LA Diameter 4.2 cm RA Systolic Volume 4C AL 58.9 ml RA Systolic Volume 4C MOD 58.4 ml LA Sys Volume AL 50.0 cm cubed LA Sys Volume Index AL 17.5 cm cubed/m squared IVC Diameter 1.9 cm DOPPLER AV Peak Velocity 274.7 cm/s LVOT Peak Velocity 103.0 cm/s AV Area Cont Eq vti 1.2 cm squared AV Area Cont Eq pk 1.2 cm squared MV Peak Velocity 134.0 cm/s MV Area PHT 5.2 cm squared Mitral E to A Ratio 0.6 TR Peak Velocity 218.0 cm/s TR Peak Gradient 19.0 mmHg TR Mean Velocity 186.0 cm/s TR Mean Gradient 14.2 mmHg TR Velocity Time Integral 57.1 cm FINDINGS Left Ventricle Technically limited quality echocardiogram because of poor ultrasonic windows. LV systolic function is normal with EF of 55-60%. No regional wall motion abnormalities are seen. Grade 1 diastolic dysfunction Right Ventricle Normal in size and function Right Atrium Normal in size Left Atrium Normal in size Mitral Valve Structurally normal mitral valve. Mild mitral regurgitation Aortic Valve Aortic valve is thickened. Moderate aortic stenosis with aortic valve area 1.21 cm squared and mean gradient of 18 mmHg. Tricuspid Valve Insufficient TR jet to calculate RVSP Pulmonic Valve Not well visualized Pericardium Normal Aorta Normal in size IVC Appears to be normal CONCLUSIONS Technically limited quality echocardiogram because of poor ultransonic windows. LV systolic function is normal with EF of 55-60% Grade 1 diastolic dysfunction Mild mitral regurgitation Moderate aortic stenosis with aortic valve area 1.21 cm squared and mean gradient of 18 mmHg. No comparison studies are available. Kaz Stafford MD (Electronically Signed) Final Date: 03 November 2024 09:27 S
[2024-11-03] MEDS: ipratropium-albuterol 3 mL Neb INHALATION ×2 (15:43→19:50)
[2024-11-03] MEDS: morphine 4 mg/mL SDV 1 mL 2 MG IVP (16:10)
[2024-11-03] MEDS: docusate sodium 100 mg Capsule PO (17:58)
[2024-11-03] MEDS: gabapentin 300 mg Capsule PO (17:58)
[2024-11-03] MEDS: budesonide 0.5 mg/2 mL Neb INHALATION (19:50)
[2024-11-04] VITALS (46 sets, daily range): BP systolic 95–143; BP diastolic 48–88; PULSE 71–97; RESP 15–27; TEMP 36.7; O2SAT 88–98
[2024-11-04] MEDS: piperacillin-tazobactam 3.375 GM in sodium chloride 0.9% (plus) 50 ML IV ×3 (00:41→16:07)
[2024-11-04] MEDS: ipratropium-albuterol 3 mL Neb INHALATION ×4 (01:19→19:26)
[2024-11-04 04:36] LABS: Basophils # 0.1 10^3/uL (0.0-0.1); Basophils % 0.2 %; Hematocrit 30.3 % (37-53); Lymphocytes # 0.8 10^3/uL (0.8-4.8); Lymphocytes % 3.3 %; Mean Corpuscular HGB Conc 28.1 g/dL (30-55); Mean Corpuscular Hemoglobin 25.7 pg (27-33); Mean Corpuscular Volume 91.5 fl (82-101); Mean Platelet Volume 9.3 fL (7.4-10.4); Monocytes # 1.6 10^3/uL (0.2-0.9); Monocytes % 6.5 %; Neutrophils # 22.29 10^3/uL (1.8-7.7); Neutrophils % 89.2 %; Nucleated Red Blood Cells # 0.1 /100WBC; Nucleated Red Blood Cells % 0.2 %; Platelet Count 334 10^3/cmm (157-399); Red Blood Count 3.31 10^6/uL (3.85-5.65); Red Cell Distribution Width 16.3 % (12.1-15.1); White Blood Count 24.98 10^3/uL (3.29-11.43)
[2024-11-04 04:54] LABS: Alanine Aminotransferase 17 U/L (0-41); Albumin Level 2.4 g/dL (3.5-5.2); Alkaline Phosphatase 109 U/L (40-130); Aspartate Amino Transferase 16 U/L (0-40); Blood Urea Nitrogen 42 mg/dL (8-23); Carbon Dioxide 29 mmol/L (22-29); Chloride 99 mmol/L (98-107); Globulin 6.4 g/dL (1.3-4.6); Glucose 133 mg/dL (65-115); Magnesium 2.3 mg/dL (1.7-2.3); Osmolality Calculated 298 mOsm/kg (285-295); Sodium 138 mmol/L (136-145); Total Bilirubin 0.3 mg/dL (0.15-1.2); Total Protein 8.8 g/dL (6.6-8.7)
[2024-11-04] MEDS: FUROsemide 10 mg/mL SDV 4mL 40 MG IVP ×2 (05:04→17:20)
[2024-11-04] MEDS: vancomycin 1,500 MG/300 ML PIGGYBACK 200 MG IV (05:05)
[2024-11-04] MEDS: budesonide 0.5 mg/2 mL Neb INHALATION ×2 (08:12→19:26)
[2024-11-04] MEDS: docusate sodium 100 mg Capsule PO ×2 (08:36→17:20)
[2024-11-04] MEDS: gabapentin 300 mg Capsule PO ×2 (08:36→17:20)
[2024-11-04] MEDS: fluoxetine 20 mg Capsule 40 MG PO (08:36)
[2024-11-04] MEDS: apixaban 5 mg Tablet PO ×2 (08:37→17:20)
[2024-11-04] MEDS: pantoprazole DR 40 mg Tablet PO (08:37)
--- NOTE | 2024-11-04 10:16 | PC.SOCIAL ---
IMM Update pg 2 of IMM updated and reviewed w/ patient. Copy provided and copy dated, initialed and placed in chart.
--- NOTE | 2024-11-04 12:20 | P.PN_ITS ---
Subjective 2 Subjective: Seen this morning. Patient resting comfortably in recliner. He states his breathing has improved. Urine output 2650 overnight. Hemoglobin 8.5 WBC count trended down to 24,000 Creatinine 1.5. Patient is on nasal cannula at this time and off the BiPAP. Vitals/I&O/Wt Last Vital Signs Temp 98.0 F 11/04/24 07:00 Pulse 89 11/04/24 08:30 Resp 26 H 11/04/24 08:30 BP 131/67 11/04/24 08:30 Pulse Ox 93 11/04/24 08:30 O2 Del Method Nasal Cannula 11/04/24 08:30 O2 Flow Rate 2 11/04/24 08:30 FiO2 30 11/04/24 04:00 11/03/24 11/04/24 11/04/24 22:59 06:59 14:59 Intake Total 830 / 1296.458 350 / 1646.458 820 / 820 Output Total 1650 / 1650 1000 / 1000 Balance -820 / -353.542 350 / -3.542 -180 / -180 Weight last 48 hrs Weight 151.953 kg Weight 152.679 kg Weight 155.582 kg Weight 155.491 kg Physical Exam 2 Narrative: General: AOx3, sitting up in recliner. Able to have a conversation and follow commands. Not lethargic or confused at all at this time. HEENT: PERRLA, pupils bilaterally equal and reactive, pallors not present Chest: Mild crackles to auscultation right upper lobe, rest clear to auscultation. CVS: S1-S2 regular, no murmurs, no tachycardia, no gallops, no rubs Abdomen: Soft, nontender, no organomegaly, bowel sounds present Neuro: no gross motor deficits, however does not move bilateral lower extremities owing to massive edema. Extremities: Bilateral massive lower extremity edema with weeping ulcers over bilateral extremities. Right is worse than left with signs of cellulitis involving the mid extremity. -Edema bilateral lower extremities defin itely is improving. I do note wrinkling at this time. Urinary Catheter Management: Robertson: Cath Placed During This Visit: yes Reason for Continuing Indwelling Catheter: Accurate Measurement of Urinary Output in Critically Ill Patients Urinary Catheter Date of Insertion: 11/02/24 Urinary Catheter Time of Insertion: 13:58 Data 11/04/24 04:18 11/04/24 04:18 Micro: Microbiology 11/02/24 13:07 Blood Culture - Preliminary Blood NEGATIVE TO DATE 11/02/24 13:14 Blood Culture - Preliminary Blood NEGATIVE TO DATE A&P Assessment and plan (1) Acute hypoxemic respiratory failure: Patient presenting to the hospital with acute hypoxic respiratory failure dyspnea chest x-ray with evidence of bilateral infiltrates per personal interpretation, elevated BNP at 5000 together with lower extremity edema with features consistent with CHF. He was received Lasix 60 mg IV in the emergency room. Will additionally start diuresis with Lasix 40 mg IV every 12 hours. Closely monitor urine output and creatinine with initiation of IV Lasix. pO2 of 63 on ABG on supplemental 3 L/min oxygen. Patient is currently necessitating initiation of BiPAP due to increased work of breathing, accessory muscle use. Additionally has a history of COPD.Currently his respiratory distress appears to be most likely related to pulmonary edema started on a COPD flare. DuoNeb inhalation every 6 hours added alongside budesonide 0.5 mg twice daily. (2) Cellulitis: Bilateral lower extremity edema which is longstanding, worsening over many weeks. Currently has evidence of right lower extremity cellulitis. Blood cultures taken in the emergency room Start piperacillin/tazobactam and vancomycin for treatment. Monitor for improvement Wound care nurse consult for daily wound care. Additionally has chronic sacral wound dating back to at least May 2024. No gross signs of cellulitis around the site. Will obtain CT imaging to assess for any underlying osteomyelitis and assess need for debridement. (3) Congestive heart failure: Lasix 40 mg IV every 12 hours Closely monitor kidney function and urine output. Plan DVT ppx: Eliquis 5mg BID DNR/DNI per review of intermediate records November 03, 2024 Urine output 950 cc. Creatinine at 1.6. Clinically he is much more alert and awake today. Breathing is more comfortable. Oxygen supplementation at 3 L/min. Off BiPAP. Lower extremity cellulitis overall appearing unchanged thus far. Blood culture negative. CT of the pelvis does not show any signs of underlying osteomyelitis. Urine analysis with trace leukocyte esterase, no significant WBCs, negative nitrate, 1+ bacteria, less likely UTI. Lower extremity Doppler negative for DVT. Intermittently 26. Continue IV antibiotics. BiPAP at nighttime and as needed. Resume home dose of gabapentin. 11/04/2024 Edema is improving, creatinine 1.5 today. Patient much more awake alert. On 3 L nasal cannula at this time. Continue IV antibiotics. Continue BiPAP at nighttime and as needed. May transfer to CSU today. Pelvis CT reviewed: 1. Unremarkable sacrum. 2. Lumbar spondylosis. 3. Diffuse subcutaneous skin thickening of the medial gluteus soft tissues which may indicate soft tissue infection, there is mild fat stranding, no organized collections. 4. Pelvic and right inguinal lymphadenopathy measuring up to 2.1 centimeters. Attention on follow-up. PDMP PDMP Reviewed: Not Reviewed Attestations 2 Medical Necessity Statement*: Requires continued IV diuresis and antibiotics for treatment of cellulitis. Diagnoses Acute hypoxemic respiratory failure J96.01 Cellulitis L03.90 Congestive heart failure I50.9
[2024-11-04] MEDS: morphine 4 mg/mL SDV 1 mL 2 MG IVP (13:47)
[2024-11-04] MEDS: oxyCODONE-APAP 10-325 mg Tablet 1 TAB PO (16:07)
--- NOTE | 2024-11-04 17:31 | PM.CONSULT ---
Providers/Reason For Consult Consulting Physician/Specialty*: Wound care Reason for Consult*: Open wound to lower extremities and buttocks Requesting Physician: Dr. Carranza Attending Physician: Natasha Bui MD Primary Care Provider: Fabian Camarillo DO History of Present Illness History of Present Illness Edson Jaffe is a 74 year old male admitted to the hospital on November 02 for CHF, cellulitis, and respiratory failure. He resides at [facility] in [facility]. He is currently on Zosyn and vancomycin IV. His white blood cell count is 24,000 which is decreased from previous days. Wound care was consulted for recommendations to the open ulcerations on his lower extremities and right gluteus. He is afebrile at this time. Upon entering his room he is sitting up in his recliner with his legs elevated. He does report a moderate amount of pain in his right lower extremity. Upon evaluation there are 2 superficial ulcerations to his right lower extremity and a superficial ulceration to his left lateral lower extremity. He was able to stand for us to evaluate the open ulcer on his right gluteus. He states he has had an open wound to his right gluteus for over 2 years and this is one of the reasons he was admitted to the longterm. He does have a large scarred area encompassing both his left and right gluteus. He also reports he has had multiple open ulcerations to his lower extremities for at least a year. He states a wound care provider sees him every at the longterm. He is unsure what type of dressing is being utilized to his wounds at this time. Review of Systems Const: Denies: fever(s) or chills Card: Denies: chest pain Resp: Reports: dyspnea and productive cough Musc: Reports: extremity pain (right LE) and extremity swelling (BLE) Skin/Breast: Reports: sores Medications/Allergies Home Medications ?Medication ?Instructions ?Recorded ?Confirmed ?Last Taken ?Type albuterol sulfate 90 mcg/actuation 2 puff inhalation Q4H PRN 11/02/24 11/02/24 Unknown History aerosol inhaler Shortness Of Breath Or Wheezing aluminum-mag hydroxide-simethicone 30 ml PO Q2H PRN 11/02/24 11/02/24 Unknown History 400 mg-400 mg-40 mg/5 mL oral susp indigeston/heartburn/gas (Mylanta Maximum Strength) apixaban 5 mg tablet (Eliquis) 5 mg PO BID 11/02/24 11/02/24 Unknown History bisacodyl 10 mg rectal suppository 10 mg SC .Q72H PRN Constipation 11/02/24 11/02/24 Unknown History bisacodyl 5 mg tablet 20 mg PO .Q72H PRN Constipation 11/02/24 11/02/24 Unknown History docusate sodium 100 mg capsule 100 mg PO BID 11/02/24 11/02/24 Unknown History (Colace) ergocalciferol (vitamin D2) 1,250 50,000 mcg PO Q7D 11/02/24 11/02/24 10/31/24 History mcg (50,000 unit) capsule fluoxetine 40 mg capsule 40 mg PO DAILY 11/02/24 11/02/24 11/02/24 History fluticasone fur. 200 mcg-umeclid 1 inh inhalation DAILY 11/02/24 11/02/24 11/02/24 History 62.5 mcg-vilant 25 mcg inhalat.powder (Trelegy Ellipta) furosemide 80 mg tablet 80 mg PO DAILY 11/02/24 11/02/24 11/02/24 History gabapentin 300 mg capsule 300 mg PO BID 11/02/24 11/02/24 11/02/24 History ipratropium 0.5 mg-albuterol 3 mg 3 ml inhalation BID 11/02/24 11/02/24 11/02/24 History (2.5 mg base)/3 mL nebulization soln loperamide 2 mg-simethicone 125 mg 1 tab PO Q6H PRN Diarrhea 11/02/24 11/02/24 Unknown History tablet magnesium hydroxide 400 mg/5 mL 30 ml PO DAILY PRN Constipation 11/02/24 11/02/24 Unknown History oral suspension (Milk of Magnesia) melatonin 3 mg tablet 6 mg PO BEDTIME 11/02/24 11/02/24 11/01/24 History multivitamin 1 tab PO QAM 11/02/24 11/02/24 11/02/24 History omeprazole 20 mg tablet,delayed 20 mg PO DAILY 11/02/24 11/02/24 11/02/24 History release oxycodone-acetaminophen 10 mg-325 1 tab PO Q6H PRN Pain 11/02/24 11/02/24 Unknown History mg tablet polyethylene glycol 3350 17 17 g PO DAILY PRN bowel management 11/02/24 11/02/24 Unknown History gram/dose oral powder (Miralax) protein supplement See Rx Instructions .Route .COMPLEX 11/02/24 11/02/24 11/02/24 History semaglutide 0.25 mg or 0.5 mg (2 0.5 mg SUBCUT Q7D 11/02/24 11/02/24 11/01/24 History mg/3 mL) subcutaneous pen injector (Ozempic) sennosides 8.6 mg tablet (senna) 8.6 mg PO DAILY 11/02/24 11/02/24 11/02/24 History spironolactone 50 mg tablet 50 mg PO DAILY 11/02/24 11/02/24 11/02/24 History Allergies Allergy/AdvReac Type Severity Reaction Status Date / Time No Known Allergies Allergy Verified 07/07/24 10:52 Current Medications Generic Name Dose Route Start Last Admin Trade Name Freq PRN Reason Stop Dose Admin Albuterol/Ipratropium 3 ml 11/03/24 14:00 11/04/24 13:12 Ipratropium-Albuterol 3 Ml Neb INHALATION 3 ml Q6H.RESP HARJINDER Administration Apixaban 5 mg 11/02/24 18:00 11/04/24 17:20 Apixaban 5 Mg Tablet PO 5 mg BID HARJINDER Administration Budesonide 0.5 mg 11/03/24 20:00 11/04/24 08:12 Budesonide 0.5 Mg/2 Ml Neb INHALATION 0.5 mg BID.RESPIRATORY HARJINDER Administration Docusate Sodium 100 mg 11/03/24 18:00 11/04/24 17:20 Docusate Sodium 100 Mg Capsule PO 100 mg BID HARJINDER Administration Fluoxetine HCl 40 mg 11/03/24 09:00 11/04/24 08:36 Fluoxetine 20 Mg Capsule PO 40 mg DAILY HARJINDER Administration Furosemide 40 mg 11/02/24 18:00 11/04/24 17:20 Furosemide 10 Mg/Ml Sdv 4ml IVP 40 mg Q12H HARJINDER Administration Gabapentin 300 mg 11/03/24 18:00 11/04/24 17:20 Gabapentin 300 Mg Capsule PO 300 mg BID HARJINDER Administration Vancomycin HCl 1,500 mg in 300 mls @ 200 mls/hr 11/03/24 05:00 11/04/24 06:49 Vancocin IV Infused Q12H HARJINDER Infusion Piperacillin Sod/Tazobactam 50 mls @ 12.5 mls/hr 11/03/24 09:00 11/04/24 16:07 Sod 3.375 gm/ Sodium Chloride IV 12.5 mls/hr Q8H HARJINDER Administration Protocol Morphine Sulfate 2 mg 11/02/24 23:18 11/04/24 13:47 Morphine 4 Mg/Ml Sdv 1 Ml IVP 2 mg Q4H PRN Administration SEVERE PAIN Oxycodone/Acetaminophen 1 tab 11/02/24 17:18 11/04/24 16:07 Oxycodone-Apap 10-325 Mg Tablet PO 1 tab Q6H PRN Administration Pain Pantoprazole Sodium 40 mg 11/03/24 09:00 11/04/24 08:[address] 40 Mg Tablet PO 40 mg DAILY HARJINDER Administration Vitals/I&O/Wt Last Vital Signs Temp 98.0 F 11/04/24 07:00 Pulse 84 11/04/24 16:00 Resp 18 11/04/24 16:07 BP 110/48 11/04/24 16:00 Pulse Ox 95 11/04/24 16:07 O2 Del Method Nasal Cannula 11/04/24 16:00 O2 Flow Rate 2 11/04/24 16:00 FiO2 30 11/04/24 04:00 11/04/24 11/04/24 11/04/24 06:59 14:59 22:59 Intake Total 350 / 1646.458 940 / 940 50 / 990 Output Total 1000 / 1000 800 / 1800 Balance 350 / -3.542 -60 / -60 -750 / -810 Weight last 48 hrs Weight 151.953 kg Weight 152.679 kg Weight 155.582 kg Physical Exam Const: COMMON NORMALS: no acute distress, patient oriented x3 and alert GENERAL APPEARANCE: cooperative and well kempt NUTRITIONAL APPEARANCE: obese ORIENTATION/CONSCIOUSNESS: Yes awake, Yes oriented to person, Yes oriented to place and Yes oriented to time HENMT: HEAD & SCALP: normal to inspection Eye: GENERAL EYE: appearance normal, both eyes and all related structures Neck/C-Spine: GENERAL: Yes normal visual inspection Resp: EFFORT & INSPECTION: Yes able to speak in complete sentences, Yes symmetric chest movement and Yes Actively coughing moist Cardio: COMMON NORMALS: regular rate RATE: regular rate PERIPHERAL PULSES: dorsalis pedis present positive bilateral Extremity: GENERAL: Yes edema (RLE) RIGHT LOWER EXTREMITY: Yes lower leg Right lower leg: Yes inspection (erythematous, edematous) and Yes palpation (warm) LEFT LOWER EXTREMITY: Yes lower leg Left lower leg: Yes inspection (edematous) Neuro: COMMON NORMALS: patient oriented x3 SENSORIUM/ORIENTATION: Yes alert, Yes oriented to person, Yes oriented to place and Yes oriented to time Psych: COMMON NORMALS: Normal thought process present and speech normal APPEARANCE: Yes well kempt SPEECH: Yes normal speech THOUGHT PROCESS: Normal thought process present ATTENTION/CONCENTRATION: Yes attention grossly intact MEMORY/COGNITION: Yes memory grossly intact Skin: WOUNDS: Yes wounds noted (see wound assessments) Data 11/04/24 04:18 11/04/24 04:18 Micro: Microbiology 11/02/24 13:07 Blood Culture - Preliminary Blood NEGATIVE TO DATE 11/02/24 13:14 Blood Culture - Preliminary Blood NEGATIVE TO DATE A&P Assessment and plan (1) Pressure ulcer of right buttock, stage 3: (2) Open wound of left lower leg: Qualifiers: Encounter type: initial encounter Qualified Code(s): S81.802A - Unspecified open wound, left lower leg, initial encounter (3) Open wound of right lower leg: Qualifiers: Encounter type: initial encounter Qualified Code(s): S81.801A - Unspecified open wound, right lower leg, initial encounter Plan Mr. Jaffe is noted to have a stage III pressure ulcer on his right gluteus. He states he has had this for many years. He is unsure of how the wound was being treated at the longterm. There is a moderate amount of granulation tissue in the wound bed with a small amount of adherent slough. Hydrofera Blue should be applied to the wound bed daily. This should be covered by an Optifoam. It would be beneficial for Mr. Jaffe to have a gel cushion in his chair and a [id number] mattress for his bed. He should turn at least every 2 hours to relieve pressure from this area. The open ulcerations to his right lower extremity and left lower extremity are superficial. The right anterior wound is noted to have a large amount of drainage. We will utilize Hydrofera Blue to the wound beds daily. The Hydrofera Blue placed over the right anterior wound should be fenestrated to allow drainage to flow through it. This wound should be covered with an ABD pad for moisture control. The dressings should be secured on his right leg with rolled gauze. The ulceration to his left lateral lower leg may be covered with Hydrofera Blue and an OPTi foam may be utilized to secure it. I had a lengthy discussion regarding leg elevation with Mr. Jaffe today. He does not like his legs to be elevated because it is more comfortable when they are hanging down. I have discussed with him that for edema control it is optimal for him to have his legs elevated at the level or above his heart. This would be challenging given his CHF exacerbation and current respiratory issues. He did agree to elevate his legs as much as possible while in his chair and in the bed. He is currently receiving vancomycin and Zosyn. His right lower extremity is noted to be erythematous and warm upon palpation. There is also an area to his right medial thigh that is erythematous and warm. According to his nursing staff this has been present since admission. He had bilateral lower extremity venous ultrasounds which were both negative for DVT on November 02. PDMP PDMP Reviewed: Not Reviewed Consult Attestations Time Spent in Patient Care: 16 - 35 minutes Coding Level of Care Code Acute Code for Chg Fwd Diagnoses Pressure ulcer of right buttock, stage 3 L89.313 Open wound of left lower leg, initial encounter S81.802A Encounter type: initial encounter Open wound of right lower leg, initial encounter S81.801A Encounter type: initial encounter Wound Assessment Wound Assessment Wound Number 1 Gluteus: Descriptor: Right Primary Etiology:: Pressure Ulcer Length: (cm): 2.5 cm Width: (cm): 3 cm Depth: (cm): 0.7 cm Tunneling:: No Classification: Stage 3 Exudate Amount:: Medium Drainage Type: Serosanguineous Foul Odor After Cleansing:: No Slough/Fibrin?: Yes Granulation Amount: Medium (34-66%) Granulation Quality:: Red and Neville Necrotic Amount:: Small (1-33%) Necrotic Type:: Adherent Slough Wound Number 2 Lower Leg: Descriptor: Right and Anterior Primary Etiology:: Lymphedema Length: (cm): 7 cm Width: (cm): 3.2 cm Depth: (cm): 0.1 cm Epithelialization:: None Tunneling:: No Undermining:: No Limited to Skin Breakdown: Yes Exudate Amount:: Large Drainage Type: Serous Foul Odor After Cleansing:: No Granulation Amount: Small (1-33%) Granulation Quality:: Neville Necrotic Amount:: Medium (34-66%) Necrotic Type:: Adherent Slough Wound Number 3 Lower Leg: Descriptor: Right and Medial Primary Etiology:: Lymphedema Length: (cm): 1 cm Width: (cm): 0.3 cm Depth: (cm): 0.1 cm Tunneling:: No Undermining:: No Limited to Skin Breakdown: Yes Exudate Amount:: Small Drainage Type: Serous Foul Odor After Cleansing:: No Slough/Fibrin?: Yes Granulation Amount: None Necrotic Amount:: Medium (34-66%) Necrotic Type:: Adherent Slough Wound Number 4 Lower Leg: Cluster Wound: Yes Descriptor: Left and Lateral Primary Etiology:: Lymphedema Length: (cm): 7 cm Width: (cm): 5 cm Depth: (cm): 0.2 cm Epithelialization:: Small (1-33%) Tunneling:: No Undermining:: No Limited to Skin Breakdown: Yes Exudate Amount:: Medium Drainage Type: Serosanguineous Foul Odor After Cleansing:: No Slough/Fibrin?: Yes Granulation Amount: Small (1-33%) Granulation Quality:: Neville Necrotic Amount:: Medium (34-66%) Necrotic Type:: Adherent Slough Wound Orders All Wounds: Dressing change frequency: Daily and Other (PRN if soiled or dislodged) Wound Cleansing: Saline Primary Wound Care Dressing: hydrofera blue ready Off-Loading: Low air-loss mattress, Gel wheelchair cushion and Turn and reposition every 2 hours Lower Extremity Assessement Lower Extremity Assessment
--- NOTE | 2024-11-04 23:59 | PC.NURSE ---
Bipap refusal Patient refusing to wear Bipap. Patient states, I can't breathe with it on. I can't wear it. Provided education about the importance of wearing Bipap, patient still not agreeable to wearing. Patient placed on 4 L nasal cannula.
[2024-11-05] VITALS (15 sets, daily range): BP systolic 110–160; BP diastolic 59–89; PULSE 71–108; RESP 16–24; TEMP 36.5–36.9; O2SAT 91–99
[2024-11-05] MEDS: piperacillin-tazobactam 3.375 GM in sodium chloride 0.9% (plus) 50 ML IV ×2 (00:23→10:27)
[2024-11-05] MEDS: ipratropium-albuterol 3 mL Neb INHALATION ×3 (01:28→13:20)
--- NOTE | 2024-11-05 02:37 | PC.NURSE ---
Transfer Transferred patient to CSU bed 112-2. Nurse Patricia at bedside. All belongings transferred with patient. Patient transported on nasal cannula and Bipap placed in patient's room per RT. Patient voicing no complaints.
--- NOTE | 2024-11-05 02:52 | PC.NURSE ---
Recieved patient from ICU. Patient transferred from w/c to bed with a walker and 2p assist. Patient in bed resting comfortably and watching TV.
[2024-11-05 05:43] LABS: Basophils % 0.1 %; Eosinophils % 0.2 %; Hematocrit 27.6 % (37-53); Lymphocytes # 0.9 10^3/uL (0.8-4.8); Lymphocytes % 5.2 %; Mean Corpuscular HGB Conc 28.3 g/dL (30-55); Mean Corpuscular Hemoglobin 25.2 pg (27-33); Mean Platelet Volume 9.5 fL (7.4-10.4); Monocytes # 1.1 10^3/uL (0.2-0.9); Neutrophils # 14.09 10^3/uL (1.8-7.7); Neutrophils % 86.2 %; Nucleated Red Blood Cells # 0.1 /100WBC; Nucleated Red Blood Cells % 0.3 %; Platelet Count 370 10^3/cmm (157-399); Red Cell Distribution Width 16.4 % (12.1-15.1); White Blood Count 16.35 10^3/uL (3.29-11.43)
[2024-11-05] MEDS: oxyCODONE-APAP 10-325 mg Tablet 1 TAB PO ×2 (05:57→18:16)
[2024-11-05] MEDS: FUROsemide 10 mg/mL SDV 4mL 40 MG IVP ×2 (05:57→18:13)
[2024-11-05 06:17] LABS: Blood Urea Nitrogen 34 mg/dL (8-23); Calcium 7.6 mg/dL (8.5-10.5); Carbon Dioxide 31 mmol/L (22-29); Chloride 101 mmol/L (98-107); Creatinine Clr Calc Pharmacy 92.1616; Glucose 149 mg/dL (65-115); Magnesium 2.5 mg/dL (1.7-2.3); Osmolality Calculated 302 mOsm/kg (285-295); Sodium 141 mmol/L (136-145); Vancomycin Random 16.2 ug/mL (20.0-40.0)
[2024-11-05 06:18] LABS: Anion Gap 13.1 (5-19); Potassium 4.1 mmol/L (3.5-5.1)
--- NOTE | 2024-11-05 06:22 | PC.NURSE ---
when nurse and engineering technical writer was in pt room this engineering technical writer notice montejo bag was leaking and was only able to measure 200
[2024-11-05] MEDS: budesonide 0.5 mg/2 mL Neb INHALATION (08:29)
[2024-11-05] MEDS: pantoprazole DR 40 mg Tablet PO (08:41)
[2024-11-05] MEDS: vancomycin 1,500 MG/300 ML PIGGYBACK 200 MG IV (08:41)
[2024-11-05] MEDS: gabapentin 300 mg Capsule PO ×2 (08:42→18:14)
[2024-11-05] MEDS: docusate sodium 100 mg Capsule PO ×2 (08:42→18:14)
[2024-11-05] MEDS: fluoxetine 20 mg Capsule 40 MG PO (08:42)
[2024-11-05] MEDS: apixaban 5 mg Tablet PO ×2 (08:42→18:13)
--- NOTE | 2024-11-05 11:45 | PM.PN ---
Subjective Subjective: Patient endorses generalized malaise and fatigue. Reports he slept okay. Reports lower extremity edema persist. He reports most the time he is wheelchair-bound at the nursing facility. Discussed plan of care and he is in agreement. Medications: Reviewed: Yes Vitals/I&O/Wt Last Vital Signs Temp 97.9 F 11/05/24 11:41 Pulse 73 11/05/24 11:41 Resp 16 11/05/24 11:41 BP 121/71 11/05/24 11:41 Pulse Ox 98 11/05/24 11:41 O2 Del Method Nasal Cannula 11/05/24 11:41 O2 Flow Rate 6 11/05/24 08:29 FiO2 30 11/04/24 23:02 11/04/24 11/05/24 11/05/24 22:59 06:59 14:59 Intake Total 660 / 1600 50 / 1650 240 / 240 Output Total 800 / 1800 200 / 2000 Balance -140 / -200 -150 / -350 240 / 240 Weight last 48 hrs Weight 152.407 kg Weight 151.953 kg Physical Exam Narrative: General: Patient is awake. Chronically ill-appearing. Conversational. Head: Normocephalic. Atraumatic. EOM intact. Neck: No JVD. Cardiovascular: RRR. No gallops. No murmurs. Bilateral lower extremity edema is present. Lungs: Clear to auscultation, no use of accessory muscles, no crackles or wheezes. Skin: No jaundice. Multiple wounds of lower extremities, see wound care note for images. Abdomen: Normal bowel sounds, abdomen soft and nontender. Extremities: No cyanosis or clubbing. Musculoskeletal: No swollen or erythematous joints. Neurological: Moves all 4 extremities. No myoclonus. Urinary Catheter Management: Robertson: Cath Placed During This Visit: yes Reason for Continuing Indwelling Catheter: Accurate Measurement of Urinary Output in Critically Ill Patients Urinary Catheter Date of Insertion: 11/02/24 Urinary Catheter Time of Insertion: 13:58 Data 11/05/24 05:31 11/05/24 05:31 A&P Assessment and plan (1) Acute hypoxemic respiratory failure: Acute hypoxic respiratory failure Continue diuresis Wean supplemental oxygen support as needed BiPAP as needed Supportive care (2) Cellulitis: Severe cellulitis right lower extremities Following cultures So far no evidence of Pseudomonas, narrow Zosyn to Rocephin Screen for MRSA via nasal swab Continue vancomycin for now, pharmacy dosing Continue wound care, appreciate wound care assistance (3) Congestive heart failure: Acute on chronic heart failure with preserved ejection fraction exacerbation Acute pulmonary edema TTE with LVEF 55 to 60% Strict I's and O's Daily weights Telemetry monitoring Continue fluid restriction Continue Lasix 40 mg IV twice daily Plan DVT ppx: Eliquis DNR/DNI PDMP PDMP Reviewed: Not Reviewed Attestations Medical Necessity Statement*: Patient requires ongoing hospitalization for IV antibiotics, IV diuresis, and supportive care. Coding Level of Care Code Acute Code for [facility] Diagnoses Acute hypoxemic respiratory failure J96.01 Cellulitis L03.90 Congestive heart failure I50.9
[2024-11-05] MEDS: cefTRIAXone 1,000 mg SDV 1000 MG IVP (13:01)
--- NOTE | 2024-11-05 14:33 | PC.NURSE ---
wound care box maker wood,hussein....here to change pt's drsgs.
--- NOTE | 2024-11-05 14:58 | PM.CONSULT ---
Providers/Reason For Consult Consulting Physician/Specialty*: Wound care Reason for Consult*: Open wound to lower extremities and buttocks Requesting Physician: Dr. Carranza Attending Physician: Merlin Brown MD Primary Care Provider: Fabian Camarillo DO History of Present Illness History of Present Illness Patient was evaluated at bedside today on cardiac floor. He states he is feeling a little better. His wound dressings are in place. The erythema to his right lower extremity remains prominent, although slightly decreased. His right lower extremity is still warm to the touch. His white blood cell count has trended down again. He is receiving vancomycin and ceftriaxone IV. Notes Review of Systems Const: Denies: fever(s) or chills Card: Denies: chest pain Resp: Reports: dyspnea and productive cough Musc: Reports: extremity pain (right LE) and extremity swelling (BLE) Skin/Breast: Reports: sores Medications/Allergies Home Medications ?Medication ?Instructions ?Recorded ?Confirmed ?Last Taken ?Type albuterol sulfate 90 mcg/actuation 2 puff inhalation Q4H PRN 11/02/24 11/02/24 Unknown History aerosol inhaler Shortness Of Breath Or Wheezing aluminum-mag hydroxide-simethicone 30 ml PO Q2H PRN 11/02/24 11/02/24 Unknown History 400 mg-400 mg-40 mg/5 mL oral susp indigeston/heartburn/gas (Mylanta Maximum Strength) apixaban 5 mg tablet (Eliquis) 5 mg PO BID 11/02/24 11/02/24 Unknown History bisacodyl 10 mg rectal suppository 10 mg OH .Q72H PRN Constipation 11/02/24 11/02/24 Unknown History bisacodyl 5 mg tablet 20 mg PO .Q72H PRN Constipation 11/02/24 11/02/24 Unknown History docusate sodium 100 mg capsule 100 mg PO BID 11/02/24 11/02/24 Unknown History (Colace) ergocalciferol (vitamin D2) 1,250 50,000 mcg PO Q7D 11/02/24 11/02/24 10/31/24 History mcg (50,000 unit) capsule fluoxetine 40 mg capsule 40 mg PO DAILY 11/02/24 11/02/24 11/02/24 History fluticasone fur. 200 mcg-umeclid 1 inh inhalation DAILY 11/02/24 11/02/24 11/02/24 History 62.5 mcg-vilant 25 mcg inhalat.powder (Trelegy Ellipta) furosemide 80 mg tablet 80 mg PO DAILY 11/02/24 11/02/24 11/02/24 History gabapentin 300 mg capsule 300 mg PO BID 11/02/24 11/02/24 11/02/24 History ipratropium 0.5 mg-albuterol 3 mg 3 ml inhalation BID 11/02/24 11/02/24 11/02/24 History (2.5 mg base)/3 mL nebulization soln loperamide 2 mg-simethicone 125 mg 1 tab PO Q6H PRN Diarrhea 11/02/24 11/02/24 Unknown History tablet magnesium hydroxide 400 mg/5 mL 30 ml PO DAILY PRN Constipation 11/02/24 11/02/24 Unknown History oral suspension (Milk of Magnesia) melatonin 3 mg tablet 6 mg PO BEDTIME 11/02/24 11/02/24 11/01/24 History multivitamin 1 tab PO QAM 11/02/24 11/02/24 11/02/24 History omeprazole 20 mg tablet,delayed 20 mg PO DAILY 11/02/24 11/02/24 11/02/24 History release oxycodone-acetaminophen 10 mg-325 1 tab PO Q6H PRN Pain 11/02/24 11/02/24 Unknown History mg tablet polyethylene glycol 3350 17 17 g PO DAILY PRN bowel management 11/02/24 11/02/24 Unknown History gram/dose oral powder (Miralax) protein supplement See Rx Instructions .Route .COMPLEX 11/02/24 11/02/24 11/02/24 History semaglutide 0.25 mg or 0.5 mg (2 0.5 mg SUBCUT Q7D 11/02/24 11/02/24 11/01/24 History mg/3 mL) subcutaneous pen injector (Ozempic) sennosides 8.6 mg tablet (senna) 8.6 mg PO DAILY 11/02/24 11/02/24 11/02/24 History spironolactone 50 mg tablet 50 mg PO DAILY 11/02/24 11/02/24 11/02/24 History Allergies Allergy/AdvReac Type Severity Reaction Status Date / Time No Known Allergies Allergy Verified 07/07/24 10:52 Current Medications Generic Name Dose Route Start Last Admin Trade Name Al PRN Reason Stop Dose Admin Albuterol/Ipratropium 3 ml 11/03/24 14:00 11/05/24 13:20 Ipratropium-Albuterol 3 Ml Neb INHALATION 3 ml Q6H.RESP HARJINDER Administration Apixaban 5 mg 11/02/24 18:00 11/05/24 08:42 Apixaban 5 Mg Tablet PO 5 mg BID HARJINDER Administration Budesonide 0.5 mg 11/03/24 20:00 11/05/24 08:29 Budesonide 0.5 Mg/2 Ml Neb INHALATION 0.5 mg BID.RESPIRATORY HARJINDER Administration Ceftriaxone Sodium 1,000 mg 11/05/24 12:00 11/05/24 13:01 Ceftriaxone 1,000 Mg Sdv IVP 1,000 mg Q24H HARJINDER Administration Protocol Docusate Sodium 100 mg 11/03/24 18:00 11/05/24 08:42 Docusate Sodium 100 Mg Capsule PO 100 mg BID HARJINDER Administration Fluoxetine HCl 40 mg 11/03/24 09:00 11/05/24 08:42 Fluoxetine 20 Mg Capsule PO 40 mg DAILY HARJINDER Administration Furosemide 40 mg 11/02/24 18:00 11/05/24 05:57 Furosemide 10 Mg/Ml Sdv 4ml IVP 40 mg Q12H HARJINDER Administration Gabapentin 300 mg 11/03/24 18:00 11/05/24 08:42 Gabapentin 300 Mg Capsule PO 300 mg BID HARJINDER Administration Vancomycin HCl 1,500 mg in 300 mls @ 200 mls/hr 11/05/24 08:00 11/05/24 08:41 Vancocin IV 200 mls/hr Q18H HARJINDER Administration Oxycodone/Acetaminophen 1 tab 11/02/24 17:18 11/05/24 05:57 Oxycodone-Apap 10-325 Mg Tablet PO 1 tab Q6H PRN Administration Pain Pantoprazole Sodium 40 mg 11/03/24 09:00 11/05/24 08:[address] 40 Mg Tablet PO 40 mg DAILY HARJINDER Administration Vitals/I&O/Wt Last Vital Signs Temp 97.9 F 11/05/24 11:41 Pulse 75 11/05/24 13:20 Resp 20 H 11/05/24 13:10 BP 121/71 11/05/24 11:41 Pulse Ox 95 11/05/24 13:10 O2 Del Method Nasal Cannula 11/05/24 13:10 O2 Flow Rate 5 11/05/24 13:10 FiO2 30 11/04/24 23:02 11/04/24 11/05/24 11/05/24 22:59 06:59 14:59 Intake Total 660 / 1600 50 / 1650 480 / 480 Output Total 800 / 1800 200 / 2000 400 / 400 Balance -140 / -200 -150 / -350 80 / 80 Weight last 48 hrs Weight 152.407 kg Weight 151.953 kg Physical Exam Const: COMMON NORMALS: no acute distress and alert GENERAL APPEARANCE: cooperative and well kempt NUTRITIONAL APPEARANCE: obese ORIENTATION/CONSCIOUSNESS: Yes awake HENMT: HEAD & SCALP: normal to inspection Eye: GENERAL EYE: appearance normal, both eyes and all related structures Resp: EFFORT & INSPECTION: Yes able to speak in complete sentences, Yes symmetric chest movement and Yes Actively coughing moist Cardio: COMMON NORMALS: regular rate RATE: regular rate PERIPHERAL PULSES: dorsalis pedis present positive bilateral Extremity: GENERAL: Yes edema (RLE) RIGHT LOWER EXTREMITY: Yes lower leg Right lower leg: Yes inspection (erythematous, edematous) and Yes palpation (warm) LEFT LOWER EXTREMITY: Yes lower leg Left lower leg: Yes inspection (edematous) Neuro: SENSORIUM/ORIENTATION: Yes alert Psych: COMMON NORMALS: Normal thought process present and speech normal APPEARANCE: Yes well kempt SPEECH: Yes normal speech THOUGHT PROCESS: Normal thought process present ATTENTION/CONCENTRATION: Yes attention grossly intact MEMORY/COGNITION: Yes memory grossly intact Skin: WOUNDS: Yes wounds noted (see wound assessments) Urinary Catheter Management: Robertson: Cath Placed During This Visit: yes Reason for Continuing Indwelling Catheter: Accurate Measurement of Urinary Output in Critically Ill Patients Urinary Catheter Date of Insertion: 11/02/24 Urinary Catheter Time of Insertion: 13:58 Data 11/05/24 05:31 11/05/24 05:31 A&P Assessment and plan (1) Pressure ulcer of right buttock, stage 3: (2) Open wound of left lower leg: Qualifiers: Encounter type: initial encounter Qualified Code(s): S81.802A - Unspecified open wound, left lower leg, initial encounter (3) Open wound of right lower leg: Qualifiers: Encounter type: initial encounter Qualified Code(s): S81.801A - Unspecified open wound, right lower leg, initial encounter Plan The wound to the right gluteus is stable upon presentation today. We will continue with Hydrofera Blue covered with an Optifoam. The open ulcerations to his right lower extremity are improved today. There is less drainage noted from the wounds although still a moderate amount of serous drainage. We will transition to the use of Maxorb AG to help with moisture control. This should be covered with an ABD pad and secured with rolled gauze. The left lateral lower leg wound appears stable as well. There is less necrotic material in the wound bed today. Continue with Hydrofera Blue to this wound daily covered with an Optifoam. There is still a fair amount of erythema and edema to his right lower extremity. There is also a modest amount of edema in his left lower extremity without erythema. Mr. Jaffe should elevate his legs is much as possible to decrease the edema in his lower extremities. He is receiving IV vancomycin and ceftriaxone. He has less than 3-second capillary refill and palpable dorsalis pedis pulses in bilateral lower extremities. After the cellulitis has resolved in his right lower extremity, he would benefit from light compression to help manage and prevent lower extremity edema. He should continue to turn at least every 2 hours to relieve pressure from his sacrum. Nutrition will be important for wound healing. Will sign off for now. Further wound care recommendations should be guided by hospitalist service. He will follow-up once discharged with the in-house [facility] wound care service as he does not wish to travel to [address] for weekly appointments. PDMP PDMP Reviewed: Not Reviewed Consult Attestations Time Spent in Patient Care: 16 - 35 minutes Coding Level of Care Code Acute Code for Chg Fwd Diagnoses Pressure ulcer of right buttock, stage 3 L89.313 Open wound of left lower leg, initial encounter S81.802A Encounter type: initial encounter Open wound of right lower leg, initial encounter S81.801A Encounter type: initial encounter Wound Assessment Wound Assessment Wound Number 1 Gluteus: Descriptor: Right Primary Etiology:: Pressure Ulcer Length: (cm): 2.5 cm Width: (cm): 3 cm Depth: (cm): 0.7 cm Tunneling:: No Classification: Stage 3 Exudate Amount:: Medium Drainage Type: Serosanguineous Foul Odor After Cleansing:: No Slough/Fibrin?: Yes Granulation Amount: Medium (34-66%) Granulation Quality:: Red and [place] Necrotic Amount:: Small (1-33%) Necrotic Type:: Adherent Slough Wound Number 2 Lower Leg: Descriptor: Right and Anterior Primary Etiology:: Lymphedema Length: (cm): 6.5 cm Width: (cm): 2.1 cm Depth: (cm): 0.1 cm Epithelialization:: None Tunneling:: No Undermining:: No Limited to Skin Breakdown: Yes Exudate Amount:: Large Drainage Type: Serous Foul Odor After Cleansing:: No Granulation Amount: Small (1-33%) Granulation Quality:: [place] Necrotic Amount:: Medium (34-66%) Necrotic Type:: Adherent Slough Wound Number 3 Lower Leg: Descriptor: Right and Medial Primary Etiology:: Lymphedema Length: (cm): 0.5 cm Width: (cm): 0.5 cm Depth: (cm): 0.1 cm Epithelialization:: Small (1-33%) Tunneling:: No Undermining:: No Limited to Skin Breakdown: Yes Exudate Amount:: Small Drainage Type: Serous Foul Odor After Cleansing:: No Slough/Fibrin?: Yes Granulation Amount: None Necrotic Amount:: Medium (34-66%) Necrotic Type:: Adherent Slough Wound Number 4 Lower Leg: Cluster Wound: Yes Descriptor: Left and Lateral Primary Etiology:: Lymphedema Length: (cm): 6 cm Width: (cm): 4 cm Depth: (cm): 0.2 cm Epithelialization:: Small (1-33%) Tunneling:: No Undermining:: No Limited to Skin Breakdown: Yes Exudate Amount:: Medium Drainage Type: Serosanguineous Foul Odor After Cleansing:: No Slough/Fibrin?: Yes Granulation Amount: Medium (34-66%) Granulation Quality:: [place] Necrotic Amount:: Medium (34-66%) Necrotic Type:: Adherent Slough Wound Orders Wound Number 1: sacrum Dressing change frequency: Daily Wound Cleansing: Saline Primary Wound Care Dressing: Hydrofera Blue Secondary Wound Care Dressing: Optifoam Bathing/Showering/Hygiene: May shower without wound dressing Off-Loading: Low air-loss mattress and Turn and reposition every 2 hours Wound Number 2: right anterior lower leg Dressing change frequency: Daily Wound Cleansing: Saline Skin Barriers/[place]-Wound Care: Vitamin A&D Ointment Primary Wound Care Dressing: maxorb ag Secondary Wound Care Dressing: abd pad, rolled gauze Bathing/Showering/Hygiene: May shower without wound dressing Edema Control: Elevate legs to heart level for 30 mins daily and/or when sitting Wound Number 3: right medial lower leg Dressing change frequency: Daily Wound Cleansing: Saline Skin Barriers/[place]-Wound Care: Vitamin A&D Ointment Primary Wound Care Dressing: maxorb ag Secondary Wound Care Dressing: abd pad, rolled gauze Bathing/Showering/Hygiene: May shower without wound dressing Edema Control: Elevate legs to heart level for 30 mins daily and/or when sitting Wound Number 4: left lateral lower leg Dressing change frequency: Daily Wound Cleansing: Saline Primary Wound Care Dressing: hydrofera blue ready Secondary Wound Care Dressing: optifoam Bathing/Showering/Hygiene: May shower without wound dressing Edema Control: Elevate legs to heart level for 30 mins daily and/or when sitting
[2024-11-06] VITALS (8 sets, daily range): BP systolic 106–124; BP diastolic 57–69; PULSE 68–77; RESP 16–21; TEMP 36.6–36.7; O2SAT 95–98
[2024-11-06] MEDS: ipratropium-albuterol 3 mL Neb INHALATION ×2 (01:20→08:47)
[2024-11-06] MEDS: vancomycin 1,500 MG/300 ML PIGGYBACK 200 MG IV (02:01)
[2024-11-06 03:32] LABS: Basophils % 0.3 %; Eosinophils # 0.2 10^3/uL (0.0-0.8); Eosinophils % 1.6 %; Hematocrit 27.8 % (37-53); Lymphocytes # 1.1 10^3/uL (0.8-4.8); Lymphocytes % 8.4 %; Mean Corpuscular HGB Conc 28.1 g/dL (30-55); Mean Corpuscular Hemoglobin 25.4 pg (27-33); Mean Corpuscular Volume 90.6 fl (82-101); Mean Platelet Volume 9.1 fL (7.4-10.4); Monocytes # 0.9 10^3/uL (0.2-0.9); Monocytes % 7.3 %; Neutrophils # 10.26 10^3/uL (1.8-7.7); Neutrophils % 80.3 %; Nucleated Red Blood Cells # 0.1 /100WBC; Nucleated Red Blood Cells % 0.5 %; Platelet Count 355 10^3/cmm (157-399); Red Blood Count 3.07 10^6/uL (3.85-5.65); Red Cell Distribution Width 16.3 % (12.1-15.1); White Blood Count 12.77 10^3/uL (3.29-11.43)
[2024-11-06 03:55] LABS: NT Pro B Type Natriuretic Pept 1558 pg/mL (0-125); Procalcitonin 0.35 ng/mL (0-0.5)
[2024-11-06 03:56] LABS: Albumin Level 2.2 g/dL (3.5-5.2); Blood Urea Nitrogen 31 mg/dL (8-23); Carbon Dioxide 32 mmol/L (22-29); Chloride 102 mmol/L (98-107); Creatinine Clr Calc Pharmacy 92.3176; Glucose 145 mg/dL (65-115); Magnesium 2.4 mg/dL (1.7-2.3); Phosphorus 3.6 mg/dL (2.5-4.5); Sodium 141 mmol/L (136-145)
[2024-11-06] MEDS: FUROsemide 10 mg/mL SDV 4mL 40 MG IVP (05:19)
[2024-11-06] MEDS: oxyCODONE-APAP 10-325 mg Tablet 1 TAB PO (05:19)
--- NOTE | 2024-11-06 07:54 | P.PN_ITS ---
Vitals/I&O/Wt Last Vital Signs Temp 97.9 F 11/06/24 07:22 Pulse 70 11/06/24 07:22 Resp 17 11/06/24 07:22 BP 112/58 11/06/24 07:22 Pulse Ox 96 11/06/24 07:22 O2 Del Method Nasal Cannula 11/06/24 07:22 O2 Flow Rate 6 11/06/24 01:20 FiO2 30 11/04/24 23:02 11/05/24 11/06/24 11/06/24 22:59 06:59 14:59 Intake Total 590 / 1070 300 / 1370 Output Total 300 / 700 600 / 1300 1000 / 1000 Balance 290 / 370 -300 / 70 -1000 / -1000 Weight last 48 hrs Weight 152.951 kg Weight 152.407 kg Physical Exam 2 Urinary Catheter Management: Robertson: Cath Placed During This Visit: yes Reason for Continuing Indwelling Catheter: Accurate Measurement of Urinary Output in Critically Ill Patients Urinary Catheter Date of Insertion: 11/02/24 Urinary Catheter Time of Insertion: 13:58 Data 11/06/24 02:45 11/06/24 02:45 A&P PDMP PDMP Reviewed: Not Reviewed Coding Level of Care Code Acute Code for Chg Fwd
[2024-11-06] MEDS: budesonide 0.5 mg/2 mL Neb INHALATION (08:47)
[2024-11-06] MEDS: docusate sodium 100 mg Capsule PO (08:55)
[2024-11-06] MEDS: fluoxetine 20 mg Capsule 40 MG PO (08:55)
[2024-11-06] MEDS: gabapentin 300 mg Capsule PO (08:55)
[2024-11-06] MEDS: apixaban 5 mg Tablet PO (08:56)
[2024-11-06] MEDS: pantoprazole DR 40 mg Tablet PO (08:56)
[2024-11-06] MEDS: spironolactone 25 mg Tablet 50 MG PO (08:56)
--- NOTE | 2024-11-06 08:56 | PC.SOCIAL ---
IMM Update Pg.2 of IMM Updated, copy in chart initialed/dated/timed. Copy provided at bedside.
--- NOTE | 2024-11-06 09:24 | P.DS_ITS ---
Discharge Providers Date of Admission: 11/02/24 14:16 Date of Discharge: November 06, 2024 Attending Provider at Admission: Pavithra Carranza MD Attending Provider at Discharge: Merlin Brown MD Consults: Wound care Primary Care Provider: Fabian Camarillo DO Diagnoses at Discharge Discharge Diagnosis (1) Pressure ulcer of right buttock, stage 3: Status: Acute (2) Open wound of left lower leg: Status: Acute Qualifiers: Encounter type: initial encounter Qualified Code(s): S81.802A - Unspecified open wound, left lower leg, initial encounter (3) Open wound of right lower leg: Status: Acute Qualifiers: Encounter type: initial encounter Qualified Code(s): S81.801A - Unspecified open wound, right lower leg, initial encounter Reason for Visit Reason for Visit: resp distress Hospital Course Hospital Course Edson Jaffe is a 74-year-old male with a past medical history significant for deep vein thrombosis, congestive heart failure, lower extremity wounds, multiple other comorbidities who presented emergency department with shortness of breath, found to have acute hypoxic respiratory failure secondary to acute heart failure with preserved ejection fraction exacerbation. He was treated with supplemental respiratory support and IV diuresis. He did require noninvasive mechanical ventilation with BiPAP. His volume status improved with IV diuresis. He was rotated to [facility] from [facility] with goals of better volume control after discharge. He was found to have cellulitis of bilateral lower extremities. He was treated with broad-spectrum antibiotics with Zosyn and vancomycin initially. There was no evidence of Pseudomonas infection for which she was narrowed to ceftriaxone from Zosyn. Wound care consulted and assisted in wound management. At discharge, patient was transition to cefdinir and doxycycline to complete an additional 10 days of antibiotic treatment. He will continue Robertson catheter to help wound healing. Recommend Robertson catheter be removed with voiding trial in 10 to 14 days. Physical Exam Narrative: General: Patient is awake. Chronically ill-appearing. No acute distress. Head: Normocephalic. Atraumatic. EOM intact. Neck: No JVD. Cardiovascular: RRR. No gallops. No murmurs. Bilateral lower extremity edema. Lungs: Clear to auscultation, no use of accessory muscles, no crackles or wheezes. Skin: No jaundice. Multiple wounds of lower extremities. Abdomen: Normal bowel sounds, abdomen soft and nontender. Extremities: No cyanosis or clubbing. Musculoskeletal: No swollen or erythematous joints. Neurological: Moves all 4 extremities. No myoclonus. Urinary Catheter Management: Robertson: Cath Placed During This Visit: yes Reason for Continuing Indwelling Catheter: Accurate Measurement of Urinary Output in Critically Ill Patients Urinary Catheter Date of Insertion: 11/02/24 Urinary Catheter Time of Insertion: 13:58 Discharge Data Studies Completed and Pending Completed Studies During Hospitalization Category Date Time Status CT bony pelvis [id number] Routine Cat Scan 11/03/24 10:35 Completed XR chest 1V portable [id number] Stat Exams 11/02/24 12:41 Completed CV. echo complete* [id number] Stat Ultrasound 11/03/24 13:59 Completed US venous duplex lower extremity bilat [CV venous Ultrasound 11/02/24 12:46 [place] [id number]] Stat Pending at discharge Category Date Time Status Blood Culture Stat Lab 11/02/24 13:14 Results Radiology Impressions Chest X-Ray 11/02/24 12:41 IMPRESSION: No acute findings. Venous Duplex 11/02/24 12:46 IMPRESSION: No evidence of deep vein thrombosis. Limited study. Pelvis CT 11/03/24 10:35 IMPRESSION: 1. Unremarkable sacrum. 2. Lumbar spondylosis. 3. Diffuse subcutaneous skin thickening of the medial gluteus soft tissues which may indicate soft tissue infection, there is mild fat stranding, no organized collections. 4. Pelvic and right inguinal lymphadenopathy measuring up to 2.1 centimeters. Attention on follow-up. COMMENTS: Consistent with the [employer]'s Incidental Findings Committee white paper (J Am Ariadne Radiol 2018): Any incidental renal lesion less than 1 cm or classified as too small to characterize, or any incidental cystic renal lesion characterized as simple-appearing, is likely benign. No follow-up imaging is recommended for these lesions per consensus recommendations based on imaging criteria. Laboratory Results WBC 12.77 10^3/uL (3.29-11.43) H 11/06/24 02:45 RBC 3.07 10^6/uL (3.85-5.65) L 11/06/24 02:45 Hgb 7.80 g/dL (11.27-16.99) L 11/06/24 02:45 Hct 27.8 % (37-53) L 11/06/24 02:45 MCV 90.6 fl (82-101) 11/06/24 02:45 MCH 25.4 pg (27-33) L 11/06/24 02:45 MCHC 28.1 g/dL (30-55) L 11/06/24 02:45 RDW 16.3 % (12.1-15.1) H 11/06/24 02:45 Plt Count 355 10^3/cmm (157-399) 11/06/24 02:45 MPV 9.1 fL (7.4-10.4) 11/06/24 02:45 Neut % (Auto) 80.3 % 11/06/24 02:45 Lymph % (Auto) 8.4 % 11/06/24 02:45 [place] % (Auto) 7.3 % 11/06/24 02:45 Eos % (Auto) 1.6 % 11/06/24 02:45 Baso % (Auto) 0.3 % 11/06/24 02:45 Neut # (Auto) 10.26 10^3/uL (1.8-7.7) H 11/06/24 02:45 Lymph # (Auto) 1.1 10^3/uL (0.8-4.8) 11/06/24 02:45 [place] # (Auto) 0.9 10^3/uL (0.2-0.9) 11/06/24 02:45 Eos # (Auto) 0.2 10^3/uL (0.0-0.8) 11/06/24 02:45 Baso # (Auto) 0.0 10^3/uL (0.0-0.1) 11/06/24 02:45 Nucleated RBC % (auto) 0.5 % 11/06/24 02:45 Nucleated RBCs # 0.1 /100WBC 11/06/24 02:45 Specimen Type Arterial 11/02/24 12:49 Sample Site Radial, left 11/02/24 12:49 ABG pH 7.46 (7.35-7.45) H 11/02/24 12:49 ABG pCO2 41.2 mmHg (35-45) 11/02/24 12:49 ABG pO2 63.8 mmHg (80.0-100.0) L 11/02/24 12:49 ABG PO2/FiO2 Ratio 199 11/02/24 12:49 ABG HCO3 29.4 mmol/L (22-26) H 11/02/24 12:49 ABG O2 Saturation 93.2 11/02/24 12:49 ABG Base Excess 5.1 mmol/L (-2.0-2.0) H 11/02/24 12:49 Ivan Test Pos 11/02/24 12:49 A-a O2 Gradient 14.8 mmHg (5-10) H 11/02/24 12:49 Hematocrit 31.6 % (42-52) L 11/02/24 12:49 Hgb O2 Saturation 91.7 % (95-100) L 11/02/24 12:49 Carboxyhemoglobin 1.6 %THgb (0.4-20.1) 11/02/24 12:49 Methemoglobin < 0.0 % (0.4-1.5) L 11/02/24 12:49 Total Hemoglobin 10.3 g/dL (14-18) L 11/02/24 12:49 Sodium 140.0 mmol/L (131-143) 11/02/24 12:49 Potassium 4.2 mmol/L (3.5-5.0) 11/02/24 12:49 Glucose 203.0 mg/dL (70-115) H 11/02/24 12:49 Ionized Calcium 1.1 mmol/L (1.1-1.4) 11/02/24 12:49 O2 Delivery Device Nc 11/02/24 12:49 O2 Liters/Min 3.0 % 11/02/24 12:49 FiO2 32.0 % 11/02/24 12:49 Cold Press Loader ID Amh 11/02/24 12:49 Sodium 141 mmol/L (136-145) 11/06/24 02:45 Potassium 4.0 mmol/L (3.5-5.1) 11/06/24 02:45 Chloride 102 mmol/L (98-107) 11/06/24 02:45 Carbon Dioxide 32 mmol/L (22-29) H 11/06/24 02:45 Anion Gap 11.0 (5-19) 11/06/24 02:45 BUN 31 mg/dL (8-23) H 11/06/24 02:45 Creatinine 1.1 mg/dL (0.7-1.2) 11/06/24 02:45 GFR Calculation Not Reportable 11/06/24 02:45 Glucose 145 mg/dL (65-115) H 11/06/24 02:45 Calculated Osmolality 302 mOsm/kg (285-295) H 11/05/24 05:31 Lactic Acid 4.0 mmol/L (0.5-2.2) H 11/02/24 13:14 Lactic Acid (Sepsis) 2.7 mmol/L (0.5-2.2) H 11/02/24 16:04 Calcium 8.0 mg/dL (8.5-10.5) L 11/06/24 02:45 Phosphorus 3.6 mg/dL (2.5-4.5) 11/06/24 02:45 Magnesium 2.4 mg/dL (1.7-2.3) H 11/06/24 02:45 Total Bilirubin 0.3 mg/dL (0.15-1.2) 11/04/24 04:18 AST 16 U/L (0-40) 11/04/24 04:18 ALT 17 U/L (0-41) 11/04/24 04:18 Alkaline Phosphatase 109 U/L (40-130) 11/04/24 04:18 Creatine Kinase 97 U/L (39-308) 11/02/24 13:14 Troponin T Baseline 46 ng/L (0-15) H 11/02/24 13:14 Troponin T 120 Minute 41.53 ng/L (0-15) H 11/02/24 15:17 Delta Troponin T -4.47 ABS# (0-10) L 11/02/24 15:17 Troponin T Hi Sens 6Hr 38.34 ng/L (0-15) H 11/02/24 18:57 Troponin T Hi Sens 6Hr Delta -7.66 ng/L (0-12) L 11/02/24 18:57 NT-Pro-B Natriuret Pep 1558 pg/mL (0-125) H 11/06/24 02:45 Total Protein 8.8 g/dL (6.6-8.7) H 11/04/24 04:18 Albumin 2.2 g/dL (3.5-5.2) L 11/06/24 02:45 Globulin 6.4 g/dL (1.3-4.6) H 11/04/24 04:18 Procalcitonin 0.35 ng/mL (0-0.5) 11/06/24 02:45 Urine Color Dark yellow (Yellow) A 11/02/24 13:51 Urine Appearance Clear (CLEAR) 11/02/24 13:51 Urine pH 5.5 (5-7) 11/02/24 13:51 Ur Specific [place] 1.020 (1.005-1.030) 11/02/24 13:51 Urine Protein 1+ (Negative) A 11/02/24 13:51 Urine Glucose (UA) Negative (Normal) 11/02/24 13:51 Urine Ketones Trace (Negative) 11/02/24 13:51 Urine Blood 1+ (Negative) A 11/02/24 13:51 Urine Nitrate Negative (Negative) 11/02/24 13:51 Urine Bilirubin Negative (Negative) 11/02/24 13:51 Urine Urobilinogen 1.0 mg/dL (Negative) 11/02/24 13:51 Ur Leukocyte Esterase Trace (Negative) A 11/02/24 13:51 Urine RBC 3-5 /hpf (0-2) 11/02/24 13:51 Urine WBC 0-5 /hpf (0-5) 11/02/24 13:51 Ur Squamous Epith Cells 0-5 /hpf (0-5) 11/02/24 13:51 Amorphous Sediment Not Reportable 11/02/24 13:51 Urine Bacteria 1+ /hpf (NONE) H 11/02/24 13:51 Hyaline Casts 48.40 /lpf 11/02/24 13:51 Coarse Granular Casts 0-4 /lpf H 11/02/24 13:51 Urine Mucus Trace /hpf 11/02/24 13:51 Vancomycin Trough 25.0 ug/mL (10-15) H 11/04/24 16:19 Random Vancomycin 16.2 ug/mL (20.0-40.0) L 11/05/24 05:31 Influenza A (PCR) Negative (Negative) 11/02/24 13:38 Influenza Type B (PCR) Negative (Negative) 11/02/24 13:38 RSV (PCR) Negative (Negative) 11/02/24 13:38 SARS-CoV-2 (PCR) Negative (Negative) 11/02/24 13:38 Vitals Last Vital Signs Temp 97.9 F 11/06/24 07:22 Pulse 76 11/06/24 08:47 Resp 20 H 11/06/24 08:47 BP 112/58 11/06/24 07:22 Pulse Ox 96 11/06/24 08:47 O2 Del Method Nasal Cannula 11/06/24 08:47 O2 Flow Rate 5 11/06/24 08:47 FiO2 30 11/04/24 23:02 Discharge Plan Discharge Patient Disposition: Xfer [facility] Condition: Stable Prescriptions: New bumetanide 1 mg tablet 1 mg PO BIDAC Qty: 60 0RF cefdinir 300 mg capsule 300 mg PO Q12H 10 Days Qty: 20 0RF doxycycline hyclate 100 mg capsule 100 mg PO Q12H 10 Days Qty: 20 0RF Continued multivitamin Tablet 1 tab PO QAM fluoxetine 40 mg capsule 40 mg PO DAILY sennosides [senna] 8.6 mg Tablet 8.6 mg PO DAILY ipratropium-albuterol 0.5 mg-3 mg(2.5 mg base)/3 mL solution for nebulization 3 ml INHALATION BID melatonin 3 mg Tablet 6 mg PO BEDTIME magnesium hydroxide [Milk of Magnesia] 400 mg/5 mL Suspension 30 ml PO DAILY PRN (Reason: Constipation) oxycodone-acetaminophen 10-325 mg tablet 1 tab PO Q6H PRN (Reason: Pain) bisacodyl 10 mg Suppository 10 mg VA .Q72H PRN (Reason: Constipation) docusate sodium [Colace] 100 mg Capsule 100 mg PO BID gabapentin 300 mg capsule 300 mg PO BID loperamide-simethicone 2-125 mg Tablet 1 tab PO Q6H PRN (Reason: Diarrhea) Rx Instructions: do not exceed 4 tabs in 24 hrs ergocalciferol (vitamin D2) 1,250 mcg (50,000 unit) capsule 50,000 mcg PO Q7D Rx Instructions: polyethylene glycol 3350 [Miralax] 17 gram/dose Powder 17 g PO DAILY PRN (Reason: bowel management) albuterol sulfate 90 mcg/actuation HFA aerosol inhaler 2 puff INHALATION Q4H PRN (Reason: Shortness Of Breath Or Wheezing) alum-mag hydroxide-simeth [Mylanta Maximum Strength] 400-400-40 mg/5 mL Suspension 30 ml PO Q2H PRN (Reason: indigeston/heartburn/gas) spironolactone 50 mg tablet 50 mg PO DAILY bisacodyl 5 mg Tablet 20 mg PO .Q72H PRN (Reason: Constipation) protein supplement Liquid See Rx Instructions .ROUTE .COMPLEX Rx Instructions: Give 30ml by mouth once dailyf or wound healing. omeprazole 20 mg Tablet,Delayed Release (Dr/Ec) 20 mg PO DAILY Eliquis 5 mg tablet 5 mg PO BID Trelegy Ellipta 200-62.5-25 mcg blister with device 1 inh INHALATION DAILY Ozempic 0.25 mg or 0.5 mg (2 mg/3 mL) pen injector 0.5 mg SUBCUT Q7D Rx Instructions: on Monday Discontinued furosemide 80 mg tablet 80 mg PO DAILY Discharge Orders: Discharge Order (Routine); Ordered 11/06/24 Ordered By: Merlin Brown Referrals: [facility] [Outside] Fabian Camarillo DO [Primary Care Provider] - Discharge Diet: Advance as tolerated and Usual diet Discharge Activity: Resume usual activity and Increase activity as tolerated Patient Instructions: Opioid Safety Activity Restrictions/Additional Instructions: Take medications as prescribed. Increase activity as tolerated. Continue wound care. Discharge Attestations Time Spent in Discharge Care*: greater than 30 min Quality Metrics Clinical Quality Measures [ No reported AMI, CVA or VTE this stay] Coding Level of Care Code Acute Code for Chg Fwd Diagnoses Pressure ulcer of right buttock, stage 3 L89.313 Open wound of left lower leg, initial encounter S81.802A Encounter type: initial encounter Open wound of right lower leg, initial encounter S81.801A Encounter type: initial encounter
--- NOTE | 2024-11-06 10:51 | PC.NURSE ---
Dressing changes performed at this time. Patient tolerated well.
--- NOTE | 2024-11-06 11:26 | PC.NURSE ---
Patient is wondering about his montejo catheter. His sacrum is excoriated along with the open wound. Informed Dr Brown and received instructions to leave in place for now and have facility to remove in 10-14days. RBVO
--- NOTE | 2024-11-06 11:37 | PC.NURSE ---
Patient's most recent BP is 193/131. Patient denies symptoms. Informed Dr Carr. MEADE to place orders.
--- NOTE | 2024-11-06 12:33 | PC.NURSE ---
Addendum entered by Erika Weinstein RN 11/06/24 12:39: NOT Brenda. Report was given to RUBÉN Owens. Original Note: Report called to RUBÉN Gutierrez at [facility] [place]. Patient pending transportation per their van.
--- NOTE | 2024-11-06 14:30 | PC.NURSE ---
Addendum entered by Erika Weinstein RN 11/06/24 14:33: No personal belongings at bedside. Original Note: Patient discharged to [facility]. they provided his wheelchair and transportation. Patient refused O2 for the ride. Reports only using as needed.
== END 2024-11-06 13:50 | disposition skilled nursing facility (03) | DRG 602 ==
LOC: ER 14:50 → ICU 16:26 → CSU 11-05 02:13
PROVIDERS: Internal Medicine; Admitting Provider Student in an Organized Health Care Education/Training Program; Emergency Provider Family Medicine; PCP Family Medicine; Visit Provider Internal Medicine
DX: L03.115 Cellulitis of right lower limb (principal); I50.33 Acute on chronic diastolic (congestive) heart failure; L89.313 Pressure ulcer of right buttock, stage 3; J44.1 Chronic obstructive pulmonary disease with (acute) exacerbation; L97.921 Non-pressure chronic ulcer of unspecified part of left lower leg limited to breakdown of skin; L97.911 Non-pressure chronic ulcer of unspecified part of right lower leg limited to breakdown of skin; Z68.42 Body mass index [BMI] 45.0-49.9, adult; E66.01 Morbid (severe) obesity due to excess calories; L03.116 Cellulitis of left lower limb; Z86.718 Personal history of other venous thrombosis and embolism; Z79.899 Other long term (current) drug therapy; Z79.01 Long term (current) use of anticoagulants; Z79.85 Long-term (current) use of injectable non-insulin antidiabetic drugs; Z11.52 Encounter for screening for COVID-19; Z99.81 Dependence on supplemental oxygen; Z99.3 Dependence on wheelchair
CPT/HCPCS: 36415; 36600; 51702; 71045; 72192; 80048; 80051; 80053; 80069; 80202; 81001; 82330; 82550; 82805; 83605; 83735; 83880; 84145; 84484; 85025; 87040; 87637; 93005; 93306; 93970; 94640; 94660; 96365; 96367; 96374; 96375; 96376; 99285; J0696; J1940; J2270; J2543; J3370; J7050; J7626; J9999

== ENCOUNTER 2024-11-21 09:45 | Emergency (ER) | payer MEDICARE, MEDICAID, SELFPAY ==
[2024-11-21 09:47] VITALS: BP 141/75; PULSE 78; RESP 18; TEMP 36.7; O2SAT 96; BMI 44.9
--- NOTE | 2024-11-21 09:54 | XR_ITS ---
WS: [id number] Exam: XR wrist RT min 3V* [id number] Date/Time of Exam: 11/21/2024 9:54 AM Reason For Exam: trauma There is an impacted comminuted fracture of the distal radius with dorsal and ulnar displacement of fracture fragments. The is also an impacted comminuted fracture of the distal ulna with dorsal and ulnar displacement of fragments. No dislocation is noted. There is ulnar displacement of the carpus. Marked soft tissue swelling. XR/XR wrist RT min 3V* [id number] IMPRESSION: 1. Comminuted displaced fractures of the distal radius and ulna as detailed abo xochitl.
--- NOTE | 2024-11-21 10:59 | DCPLANNER ---
messaged ortho for er f/u
--- NOTE | 2024-11-21 11:00 | W.ED.EXTPRO ---
HPI - Extremity Problem General: Chief complaint: Extremity Injury, Upper Stated complaint: fall; right wrist pain Time Seen by Provider: 11/21/24 09:54 History of Present Illness: 74-year-old male presents emergency room after a fall is complaining of right wrist pain. Mechanical ground-level fall patient has frequent falls he denies any other injuries other than to his right wrist he has obvious deformity and swelling. He is chronically on oxygen frequently uses a wheelchair to get around the home Associated symptoms: Deny chest pain, fever(s) or rash Related Data Home Medications ?Medication ?Instructions ?Recorded ?Confirmed albuterol sulfate 90 mcg/actuation 2 puff inhalation Q4H PRN 11/02/24 11/21/24 aerosol inhaler Shortness Of Breath Or Wheezing aluminum-mag hydroxide-simethicone 30 ml PO Q2H PRN 11/02/24 11/21/24 400 mg-400 mg-40 mg/5 mL oral susp indigeston/heartburn/gas (Mylanta Maximum Strength) apixaban 5 mg tablet (Eliquis) 5 mg PO BID 11/02/24 11/21/24 bisacodyl 10 mg rectal suppository 10 mg ID .Q72H PRN Constipation 11/02/24 11/21/24 bisacodyl 5 mg tablet 20 mg PO .Q72H PRN Constipation 11/02/24 11/21/24 docusate sodium 100 mg capsule 100 mg PO BID 11/02/24 11/21/24 (Colace) ergocalciferol (vitamin D2) 1,250 50,000 mcg PO Q7D 11/02/24 11/21/24 mcg (50,000 unit) capsule fluoxetine 40 mg capsule 40 mg PO DAILY 11/02/24 11/21/24 fluticasone fur. 200 mcg-umeclid 1 inh inhalation DAILY 11/02/24 11/21/24 62.5 mcg-vilant 25 mcg inhalat.powder (Trelegy Ellipta) gabapentin 300 mg capsule 300 mg PO BID 11/02/24 11/21/24 ipratropium 0.5 mg-albuterol 3 mg 3 ml inhalation BID 11/02/24 11/21/24 (2.5 mg base)/3 mL nebulization soln loperamide 2 mg-simethicone 125 mg 1 tab PO Q6H PRN Diarrhea 11/02/24 11/21/24 tablet magnesium hydroxide 400 mg/5 mL 30 ml PO DAILY PRN Constipation 11/02/24 11/21/24 oral suspension (Milk of Magnesia) melatonin 3 mg tablet 6 mg PO BEDTIME 11/02/24 11/21/24 multivitamin 1 tab PO QAM 11/02/24 11/21/24 omeprazole 20 mg tablet,delayed 20 mg PO DAILY 11/02/24 11/21/24 release oxycodone-acetaminophen 10 mg-325 1 tab PO Q6H PRN Pain 11/02/24 11/21/24 mg tablet polyethylene glycol 3350 17 17 g PO DAILY PRN bowel management 11/02/24 11/21/24 gram/dose oral powder (Miralax) protein supplement See Rx Instructions .Route .COMPLEX 11/02/24 11/21/24 semaglutide 0.25 mg or 0.5 mg (2 0.5 mg SUBCUT Q7D 11/02/24 11/21/24 mg/3 mL) subcutaneous pen injector ([email or web address]) sennosides 8.6 mg tablet (senna) 8.6 mg PO DAILY 11/02/24 11/21/24 spironolactone 50 mg tablet 50 mg PO DAILY 11/02/24 11/21/24 Previous Rx's ?Medication ?Instructions ?Recorded bumetanide 1 mg tablet 1 mg PO BIDAC #60 tabs 11/06/24 Allergies Allergy/AdvReac Type Severity Reaction Status Date / Time No Known Allergies Allergy Verified 07/07/24 10:52 Review of Systems Const: Denies: fever(s) or chills Card: Denies: chest pain Resp: Denies: dyspnea GI: Denies: abdominal pain : Denies: dysuria, urinary frequency or urinary urgency Musc: Denies: neck pain or back pain Skin/Breast: Denies: rash PFSH ED PFSH: Medical History (Updated 11/21/24 @ 11:05 by Francis Mclaughlin DO) Open wound of right lower leg Open wound of left lower leg Pressure ulcer of right buttock, stage 3 History of deep vein thrombosis Congestive heart failure Physical Exam Const: COMMON NORMALS: no acute distress GENERAL APPEARANCE: cooperative and comfortable ORIENTATION/CONSCIOUSNESS: Yes awake, Yes oriented to person, Yes oriented to place and Yes oriented to time HENMT: COMMON NORMALS: normocephalic, atraumatic and hearing grossly normal bilaterally HEAD & SCALP: normocephalic and atraumatic Resp: COMMON NORMALS: normal respiratory effort, No retractions, No use of accessory muscles and clear to auscultation bilaterally AUSCULTATION: clear to auscultation bilaterally Cardio: COMMON NORMALS: regular rate, regular rhythm and No murmurs present (Cardio) RATE: regular rate RHYTHM: regular rhythm GI: COMMON NORMALS: Soft to palpation and No hepatosplenomegaly present AUSCULTATION: Yes normoactive bowel sounds PALPATION: Yes Soft to palpation, No Tenderness to palpation present (GI), No Guarding due to palpation present (GI) and Yes No hepatosplenomegaly present Extremity: OTHER: Obvious deformity right wrist moderate swelling neurovascularly intact capillary refill normal radial and ulnar pulses normal sensation normal Neuro: SENSORIUM/ORIENTATION: Yes oriented to person, Yes oriented to place and Yes oriented to time Skin: COMMON NORMALS: no rashes or lesions noted GENERAL SKIN EXAM: no rashes or lesions noted Course Vital Signs: Vital signs: Vital Signs Temperature 98.1 F 11/21/24 09:47 Pulse Rate 73 11/21/24 14:44 Respiratory Rate 18 11/21/24 09:47 Blood Pressure 141/82 11/21/24 14:44 Pulse Oximetry 98 11/21/24 14:44 Oxygen Delivery Me thod Nasal Cannula 11/21/24 12:27 Oxygen Flow Rate 3 11/21/24 12:27 MDM - Extremity (Nontraumatic) Medical Decision Making Placed in a sugar-tong splint with a sling referred to orthopedics for definitive care avoid use left hand. Lab Data Radiology Impressions Wrist X-Ray 11/21/24 09:54 IMPRESSION: 1. Comminuted displaced fractures of the distal radius and ulna as detailed above. All radiology interpretation(s) finalized by discharge Discharge Plan Discharge Patient Disposition: Home Clinical Impression: Closed fracture distal radius and ulna Condition: Stable Prescriptions: No Action multivitamin Tablet 1 tab PO QAM fluoxetine 40 mg capsule 40 mg PO DAILY sennosides [senna] 8.6 mg Tablet 8.6 mg PO DAILY ipratropium-albuterol 0.5 mg-3 mg(2.5 mg base)/3 mL solution for nebulization 3 ml INHALATION BID melatonin 3 mg Tablet 6 mg PO BEDTIME magnesium hydroxide [Milk of Magnesia] 400 mg/5 mL Suspension 30 ml PO DAILY PRN (Reason: Constipation) oxycodone-acetaminophen 10-325 mg tablet 1 tab PO Q6H PRN (Reason: Pain) bisacodyl 10 mg Suppository 10 mg ID .Q72H PRN (Reason: Constipation) docusate sodium [Colace] 100 mg Capsule 100 mg PO BID gabapentin 300 mg capsule 300 mg PO BID loperamide-simethicone 2-125 mg Tablet 1 tab PO Q6H PRN (Reason: Diarrhea) Rx Instructions: do not exceed 4 tabs in 24 hrs ergocalciferol (vitamin D2) 1,250 mcg (50,000 unit) capsule 50,000 mcg PO Q7D Rx Instructions: polyethylene glycol 3350 [Miralax] 17 gram/dose Powder 17 g PO DAILY PRN (Reason: bowel management) albuterol sulfate 90 mcg/actuation HFA aerosol inhaler 2 puff INHALATION Q4H PRN (Reason: Shortness Of Breath Or Wheezing) alum-mag hydroxide-simeth [Mylanta Maximum Strength] 400-400-40 mg/5 mL Suspension 30 ml PO Q2H PRN (Reason: indigeston/heartburn/gas) spironolactone 50 mg tablet 50 mg PO DAILY bisacodyl 5 mg Tablet 20 mg PO .Q72H PRN (Reason: Constipation) protein supplement Liquid See Rx Instructions .ROUTE .COMPLEX Rx Instructions: Give 30ml by mouth once dailyf or wound healing. omeprazole 20 mg Tablet,Delayed Release (Dr/Ec) 20 mg PO DAILY Eliquis 5 mg tablet 5 mg PO BID Trelegy Ellipta 200-62.5-25 mcg blister with device 1 inh INHALATION DAILY Ozempic 0.25 mg or 0.5 mg (2 mg/3 mL) pen injector 0.5 mg SUBCUT Q7D Rx Instructions: on Monday bumetanide 1 mg tablet 1 mg PO BIDAC Qty: 60 0RF Discharge Orders: Discharge ED (Routine); Ordered 11/21/24 Ordered By: Francis Mclaughlin Referrals: Fabian Camarillo DO [Primary Care Provider] - Discharge Diet: Usual diet Discharge Activity: Limit activity as instructed Patient Instructions: Opioid Safety, Pain Management Activity Restrictions/Additional Instructions: Thank you for choosing [facility] for your healthcare needs today. It is very important that you follow up as instructed or that you return to the Emergency Department should you have concerns or if your condition changes or worsens in any way. You were seen in the emergency room after a fall last night with complaint of right wrist pain. You have a fracture of the wrist. Recommend you leave the splint and sling in place until you follow-up with orthopedic you can use previously prescribed pain medications or ice to the area as needed. Avoid use of the right hand until released by orthopedics Print Language: Hong Konger Coding Level of Care Code ED Manager Golf for Chana Glass
[2024-11-21 12:27] VITALS: BP 136/84; O2SAT 95
[2024-11-21 14:44] VITALS: BP 141/82; PULSE 73; O2SAT 98
== END 2024-11-21 14:45 | disposition home or self-care (01) ==
PROVIDERS: Emergency Provider Family Medicine; PCP Family Medicine
DX: S52.501A Unspecified fracture of the lower end of right radius, initial encounter for closed fracture (principal); S52.601A Unspecified fracture of lower end of right ulna, initial encounter for closed fracture; Z79.01 Long term (current) use of anticoagulants; I50.9 Heart failure, unspecified; W19.XXXA Unspecified fall, initial encounter
CPT/HCPCS: 29125; 73110; 99283

== ENCOUNTER → 2024-11-28 07:51 | Outpatient (BNVA) | payer MEDICARE, MEDICAID, SELFPAY | PROVIDERS: PCP Family Medicine; Visit Provider Orthopaedic Surgery | DX: S52.501A Unspecified fracture of the lower end of right radius, initial encounter for closed fracture (principal); S52.601A Unspecified fracture of lower end of right ulna, initial encounter for closed fracture; X58.XXXA Exposure to other specified factors, initial encounter | CPT/HCPCS: 73110; 99204 ==

== ENCOUNTER 2024-11-28 08:48 | Outpatient (CLI) | payer MEDICARE, MEDICAID, SELFPAY ==
[2024-11-28 09:14] LABS: Basophils # 0.1 10^3/uL (0.0-0.1); Basophils % 0.5 %; Eosinophils # 0.4 10^3/uL (0.0-0.8); Hematocrit 34.7 % (37-53); Lymphocytes # 1.6 10^3/uL (0.8-4.8); Lymphocytes % 15.7 %; Mean Corpuscular HGB Conc 26.5 g/dL (30-55); Mean Corpuscular Hemoglobin 23.5 pg (27-33); Mean Corpuscular Volume 88.7 fl (82-101); Mean Platelet Volume 8.5 fL (7.4-10.4); Monocytes # 0.8 10^3/uL (0.2-0.9); Monocytes % 8.3 %; Neutrophils # 7.17 10^3/uL (1.8-7.7); Nucleated Red Blood Cells % 0 %; Platelet Count 395 10^3/cmm (157-399); Red Blood Count 3.91 10^6/uL (3.85-5.65); Red Cell Distribution Width 16.8 % (12.1-15.1); White Blood Count 10.09 10^3/uL (3.29-11.43)
[2024-11-28 09:20] LABS: Bacteria Urine 1+ /hpf; Hyaline Casts Urine 0.81 /lpf; Squamous Epithelial Cell Urine 0-5 /hpf (0-5)
[2024-11-28 09:25] LABS: Glucose Urine UA Norm (Normal); Protein Urine Neg (Negative); Specific Gravity, Urine 1.015 (1.005-1.030); Urine Appearance Clear (CLEAR); Urine Color Yellow (Yellow); pH Urine 6 (5-7)
[2024-11-28 09:26] LABS: Add Urine Microscopic? YES; Bilirubin Urine Neg (Negative); Blood Urine 2+ (Negative); Ketones Urine Negative (Negative); Leukocyte Esterase Urine 2+ (Negative); Nitrate Urine Negative (Negative); Urobilinogen Urine Neg (Negative)
[2024-11-28 09:27] LABS: Add Urine Culture? Yes
[2024-11-28 09:35] LABS: Alanine Aminotransferase < 5 U/L (0-41); Albumin Level 3.2 g/dL (3.5-5.2); Alkaline Phosphatase 121 U/L (40-130); Aspartate Amino Transferase 11 U/L (0-40); Blood Urea Nitrogen 18 mg/dL (8-23); Calcium 8.3 mg/dL (8.5-10.5); Carbon Dioxide 28 mmol/L (22-29); Chloride 101 mmol/L (98-107); Globulin 6.7 g/dL (1.3-4.6); Glucose 113 mg/dL (65-115); Osmolality Calculated 289 mOsm/kg (285-295); Sodium 138 mmol/L (136-145); Total Bilirubin 0.2 mg/dL (0.15-1.2); Total Protein 9.9 g/dL (6.6-8.7)
== END 2024-11-28 08:49 | disposition home or self-care (01) ==
LOC: SPT 08:49
PROVIDERS: PCP Family Medicine; Visit Provider Orthopaedic Surgery
DX: Z46.89 Encounter for fitting and adjustment of other specified devices (principal); S52.591D Other fractures of lower end of right radius, subsequent encounter for closed fracture with routine healing; X58.XXXD Exposure to other specified factors, subsequent encounter
CPT/HCPCS: 36415; 80053; 81001; 85025; 97760; L3908

== ENCOUNTER → 2024-12-02 11:13 | Outpatient (BNVA) | payer MEDICARE, MEDICAID, SELFPAY | PROVIDERS: PCP Family Medicine; Visit Provider Family Medicine | DX: Z01.818 Encounter for other preprocedural examination (principal) | CPT/HCPCS: 81003 ==

== ENCOUNTER 2024-12-06 07:52 | Day surgery (SDC) | payer MEDICARE, MEDICAID, SELFPAY ==
[2024-12-06] VITALS (11 sets, daily range): BP systolic 126–174; BP diastolic 76–97; PULSE 69–100; RESP 16–20; TEMP 36.1–36.3; O2SAT 92–99; BMI 43.4
--- NOTE | 2024-12-06 | XR_ITS ---
WS: [id number] C-ARM RADIOGRAPHS RIGHT WRIST; 4 IMAGES HISTORY: Open reduction internal fixation of right extra-articular di COMPARISON: 11/28/2024 Plate and screw fixation distal radial fracture. Ulnar styloid avulsion. XR/XR wrist RT 2V [id number] IMPRESSION: Intraoperative imaging during ORIF distal radial fracture.
[2024-12-06 08:35] LABS: Glucose Point of Care 100 mg/dL (70-110)
--- NOTE | 2024-12-06 08:53 | P.ANESASSM_ITS ---
Pre-Anesthetic Assessment Height/Weight: Height 1.83 m Preop Diagnosis: Right distal radius fracture Operation Date: 12/06/24 09:40 Proposed Procedures p ORIF Wrist ORIF Distal Radius(Right) - Doug Wallace, DO Social No alcohol and No tobacco Exam alert, oriented x 3, clear to auscultation bilaterally and regular rate & rhythm (2/6 systolic ejection murmur ) Airway Submandibular: within normal limits Cervical ROM: Other (limited) Mallampati: Class II Pulmonary Chronic Obstructive Pulmonary Disease (O2 dependent ), Exertional Dyspnea and Shortness of Breath CV/HEM Congestive Heart Failure and Hypertension Metabolic Diabetes Mellitus, Hyperlipidemia, Morbid Obesity and Thyroid Disease Anesthetic Plan ASA status: 4 Anesthesia: General Medications/Allergies Home Medications ?Medication ?Instructions ?Recorded ?Confirmed ?Last Taken ?Type albuterol sulfate 90 mcg/actuation 2 puff inhalation Q 4H PRN 11/02/24 12/05/24 12/05/24 History aerosol inhaler Shortness Of Breath Or [place] ing aluminum-mag hydroxide-simethicone 30 ml PO Q2H PRN 12/05/24 Unknown History 400 mg-400 mg-40 mg/5 mL oral susp indigeston/heartbur n/gas (Mylanta Maximum Strength) apixaban 5 mg tablet (Eliquis) 5 mg PO BID 11/02/2412/04/24 History bisacodyl 10 mg rectal suppository 10 mg [place] .Q72H PRN Constipation 11/02/24 12/05/24 Unknown History bisacodyl 5 mg tablet 20 mg PO .Q72H PRN Constipat ion 11/02/24 12/05/24 Unknown History docusate sodium 100 mg capsule 100 mg PO BID 11/02/24 12/05/24 12/05/24 History (Colace) ergocalciferol (vitamin D2) 1,250 50,000 mcg PO Q7D 12/05/24 12/05/24 History mcg (50,000 unit) capsule fluoxetine 40 mg capsule 40 mg PO DAILY 11/02/2411/2612/06/24 History fluticasone fur. 200 mcg-umeclid 1 inh inhalation THUY Y 11/02/24 12/05/24 12/05/24 History 62.5 mcg-vilant 25 mcg inhalat.powder (Trelegy Ellipta) gabapentin 300 mg capsule 300 mg PO BID 11/02/2412/0512/05/24 History ipratropium 0.5 mg-albuterol 3 mg 3 ml inhalation BID 11/02/24 12/05/24 12/05/24 History (2.5 mg base)/3 mL nebulization soln loperamide 2 mg-simethicone 125 mg 1 tab PO Q6H PRN Di arrhea 11/02/24 12/05/24 Unknown History tablet magnesium hydroxide 400 mg/5 mL 30 ml PO DAILY PRN Con stipation 11/02/24 12/05/24 Unknown History oral suspension (Milk of Magnesia) multivitamin 1 tab PO QAM 11/02/2412/05/24 History omeprazole 20 mg tablet,delayed 20 mg PO DAILY 5 12/05/24 12/05/24 History release oxycodone-acetaminophen 10 mg-325 1 tab PO Q6H PRN Deb n 11/02/24 12/05/24 12/05/24 History mg tablet polyethylene glycol 3350 17 17 g PO DAILY PRN bowel ma nagement 11/02/24 12/05/24 11/20/24 History gram/dose oral powder (Miralax) protein supplement See Rx Instructions .Route . COMPLEX 11/02/24 12/05/24 12/05/24 History semaglutide 0.25 mg or 0.5 mg (2 0.5 mg SUBCUT Q7D 04/2112/05/24 11/28/24 History mg/3 mL) subcutaneous pen injector (Ozempic) sennosides 8.6 mg tablet (senna) 8.6 mg PO DAILY 11/0212/05/24 12/05/24 History spironolactone 50 mg tablet 50 mg PO DAILY 11/02/2412/05/24 History bumetanide 1 mg tablet 1 mg PO BIDAC #60 tabs 11/0612/05/24 12/05/24 Rx Right cockup splint #1 ea 11/28/24 11/28/24 Unkn own Rx acetaminophen 325 mg tablet 650 mg PO Q4-5H PRN Pain 0 12/06/24 12/06/24 11/30/24 History (Tylenol) levothyroxine 25 mcg tablet 25 mcg PO DAILY 12/06/24 0 12/06/24 12/05/24 History melatonin 1 mg tablet 1 mg PO DAILY 12/06/2412/0612/05/24 History melatonin 5 mg tablet 5 mg PO DAILY 12/06/2412/0612/05/24 History Allergies Allergy/AdvReac Type Severity Reaction Status Date / Time No Known Allergies Allergy Verified 12/06/24 08:38 [facility] Anesthesia Medical History Open wound of right lower leg Open wound of left lower leg Pressure ulcer of right buttock, stage 3 History of deep vein thrombosis Congestive heart failure Social History Smoking and tobacco/nicotine status: never used tobacco/nicotine Data Anesthesia Cardiac Studies: Echocardiogram 11/03/24
--- NOTE | 2024-12-06 08:53 | ANES.PREANE2 ---
Pre-Anesthetic Assessment Height/Weight: Height 1.83 m Preop Diagnosis: Right distal radius fracture Operation Date: 12/06/24 09:40 Proposed Procedures p ORIF Wrist ORIF Distal Radius(Right) - Doug Wallace, DO Social No alcohol and No tobacco Exam alert, oriented x 3, clear to auscultation bilaterally and regular rate & rhythm (2/6 systolic ejection murmur ) Airway Submandibular: within normal limits Cervical ROM: Other (limited) Mallampati: Class II Pulmonary Chronic Obstructive Pulmonary Disease (O2 dependent ), Exertional Dyspnea and Shortness of Breath CV/HEM Congestive Heart Failure and Hypertension Metabolic Diabetes Mellitus, Hyperlipidemia, Morbid Obesity and Thyroid Disease Anesthetic Plan ASA status: 4 Anesthesia: General Medications/Allergies Home Medications ?Medication ?Instructions ?Recorded ?Confirmed ?Last Taken ?Type albuterol sulfate 90 mcg/actuation 2 puff inhalation Q4H PRN 11/02/24 12/05/24 12/05/24 History aerosol inhaler Shortness Of Breath Or Wheezing aluminum-mag hydroxide-simethicone 30 ml PO Q2H PRN 11/02/24 12/05/24 Unknown History 400 mg-400 mg-40 mg/5 mL oral susp indigeston/heartburn/gas (Mylanta Maximum Strength) apixaban 5 mg tablet (Eliquis) 5 mg PO BID 11/02/24 12/05/24 12/04/24 History bisacodyl 10 mg rectal suppository 10 mg [place] .Q72H PRN Constipation 11/02/24 12/05/24 Unknown History bisacodyl 5 mg tablet 20 mg PO .Q72H PRN Constipation 11/02/24 12/05/24 Unknown History docusate sodium 100 mg capsule 100 mg PO BID 11/02/24 12/05/24 12/05/24 History (Colace) ergocalciferol (vitamin D2) 1,250 50,000 mcg PO Q7D 11/02/24 12/05/24 12/05/24 History mcg (50,000 unit) capsule fluoxetine 40 mg capsule 40 mg PO DAILY 11/02/24 12/06/24 12/06/24 History fluticasone fur. 200 mcg-umeclid 1 inh inhalation DAILY 11/02/24 12/05/24 12/05/24 History 62.5 mcg-vilant 25 mcg inhalat.powder (Trelegy Ellipta) gabapentin 300 mg capsule 300 mg PO BID 11/02/24 12/05/24 12/05/24 History ipratropium 0.5 mg-albuterol 3 mg 3 ml inhalation BID 11/02/24 12/05/24 12/05/24 History (2.5 mg base)/3 mL nebulization soln loperamide 2 mg-simethicone 125 mg 1 tab PO Q6H PRN Diarrhea 11/02/24 12/05/24 Unknown History tablet magnesium hydroxide 400 mg/5 mL 30 ml PO DAILY PRN Constipation 11/02/24 12/05/24 Unknown History oral suspension (Milk of Magnesia) multivitamin 1 tab PO QAM 11/02/24 12/05/24 12/05/24 History omeprazole 20 mg tablet,delayed 20 mg PO DAILY 11/02/24 12/05/24 12/05/24 History release oxycodone-acetaminophen 10 mg-325 1 tab PO Q6H PRN Pain 11/02/24 12/05/24 12/05/24 History mg tablet polyethylene glycol 3350 17 17 g PO DAILY PRN bowel management 11/02/24 12/05/24 11/20/24 History gram/dose oral powder (Miralax) protein supplement See Rx Instructions .Route .COMPLEX 11/02/24 12/05/24 12/05/24 History semaglutide 0.25 mg or 0.5 mg (2 0.5 mg SUBCUT Q7D 11/02/24 12/05/24 11/28/24 History mg/3 mL) subcutaneous pen injector (Ozempic) sennosides 8.6 mg tablet (senna) 8.6 mg PO DAILY 11/02/24 12/05/24 12/05/24 History spironolactone 50 mg tablet 50 mg PO DAILY 11/02/24 12/05/24 12/05/24 History bumetanide 1 mg tablet 1 mg PO BIDAC #60 tabs 11/06/24 12/05/24 12/05/24 Rx Right cockup splint #1 ea 11/28/24 11/28/24 Unknown Rx acetaminophen 325 mg tablet 650 mg PO Q4-5H PRN Pain 12/06/24 12/06/24 11/30/24 History (Tylenol) levothyroxine 25 mcg tablet 25 mcg PO DAILY 12/06/24 12/06/24 12/05/24 History melatonin 1 mg tablet 1 mg PO DAILY 12/06/24 12/06/24 12/05/24 History melatonin 5 mg tablet 5 mg PO DAILY 12/06/24 12/06/24 12/05/24 History Allergies Allergy/AdvReac Type Severity Reaction Status Date / Time No Known Allergies Allergy Verified 12/06/24 08:38 [facility] Anesthesia Medical History Open wound of right lower leg Open wound of left lower leg Pressure ulcer of right buttock, stage 3 History of deep vein thrombosis Congestive heart failure Social History Smoking and tobacco/nicotine status: never used tobacco/nicotine Data Anesthesia Cardiac Studies: Echocardiogram 11/03/24
[2024-12-06] MEDS: albuterol 2.5 mg/3 mL Neb INHALATION (09:06)
[2024-12-06] MEDS: ipratropium 0.5 mg/2.5 mL Neb INHALATION (09:06)
--- NOTE | 2024-12-06 09:06 | SUR.PREOP ---
Patient came in with dressing to sacral wound that was dated 12/06 by group home. When helping patient to remove his bottoms the dressing came off. We replaced the dressing with a telfa and tegaderm. Wound was dry and pink, no drainage on previous bandage. new dressing dated 12/06 and dressing change reported to group home aid who is present with patient.
[2024-12-06] MEDS: sodium chloride 0.9% 1,000 ML 30 ML IV (09:08)
[2024-12-06 10:00] LABS: Potassium 4.3 mmol/L (3.5-5.1)
[2024-12-06] MEDS: ceFAZolin 3,000 MG in sodium chloride 0.9% (plus) 100 ML 200 MG IV (10:08)
--- NOTE | 2024-12-06 11:21 | W.PM.OPSUD ---
Surgery/Procedure H&P Update DATE OF PROCEDURE: December 06, 2024 DATE H&P PERFORMED: 11/28/24 H&P UPDATE INFORMATION: I have reviewed H&P completed within last 30 days, I have examined patient prior to procedure and No changes to prior documentation PREOP DIAGNOSIS: Right distal radius fracture PLANNED PROCEDURE: Operation Date: 12/06/24 09:40 Proposed Procedures p ORIF Wrist ORIF Distal Radius(Right) - Doug Wallace DO
--- NOTE | 2024-12-06 11:39 | ANE.PACU2 ---
Inpatient post-anesthesia follow up: Vital signs: Temperature 97.4 F Pulse Rate 75 Respiratory Rate 18 Blood Pressure 142/78 Pulse Oximetry 94 Oxygen Delivery Me thod Nasal Cannula Oxygen Flow Rate 3 Fraction of Inspir ed Oxygen Hydration adequate: Yes Nausea and vomiting: No Pain level: Controlled Mental status: Baseline
--- NOTE | 2024-12-06 11:46 | PM.OP ---
Operative Report Date of procedure: December 06, 2024 Pre-op diagnosis: Right extra-articular distal radius fracture Post-op diagnosis: same Procedure done: Open reduction internal fixation of right extra-articular distal radius fracture Surgeon: Doug Wallace DO Estimated blood loss (mL): 15 Procedure: Open reduction internal fixation of right extra-articular distal radius fracture Patient brought the op suite after an [place] was placed in the supine position. All areas impingement well-padded. Patient's prepped draped normal sterile fashion. Skin incisions made over the volar wrist. FCR tendon and radial artery were identified the pronator was reflected only. Fracture is identified reduced. 5 distal locking screws were placed into the end of the plate. And then 1 cortical and 1 locking screw placed proximal. AP and lateral fluoroscopy showed that the fracture was reduced in adequate position. Hardware is in good position. Wounds were irrigated closed in a layered fashion with Vicryl and Monocryl suture. Sterile dressings were applied patient was placed in a volar splint and transferred to the PACU in stable condition.
--- NOTE | 2024-12-06 13:34 | PC.NURSE ---
Addendum entered by Mera Headley RN 12/06/24 13:55: Spoke with RN netbackup administrator at [facility] to update on O2 status Original Note: Pt unable to maintain O2 saturations above 92% on RA. Pt discharged to nursing facility on 3L O2 to maintain oxygen saturations >92% per anesthesia. Aid that accompanied patient aware of oxygen needs- pt reports that he has oxygen at nursing facility that pt normally uses at night.
== END 2024-12-06 13:30 | disposition home or self-care (01) ==
PROVIDERS: Anesthesiology; PCP Family Medicine; Visit Provider Orthopaedic Surgery
PROC: (CPT 25607; principal; 2024-12-06 09:40)
DX: S52.551A Other extraarticular fracture of lower end of right radius, initial encounter for closed fracture (principal); J44.9 Chronic obstructive pulmonary disease, unspecified; Z99.81 Dependence on supplemental oxygen; I50.9 Heart failure, unspecified; I11.0 Hypertensive heart disease with heart failure; E11.9 Type 2 diabetes mellitus without complications; E78.5 Hyperlipidemia, unspecified; E66.01 Morbid (severe) obesity due to excess calories; Z68.41 Body mass index [BMI] 40.0-44.9, adult; E07.9 Disorder of thyroid, unspecified; Z79.01 Long term (current) use of anticoagulants; Z79.899 Other long term (current) drug therapy; Z79.85 Long-term (current) use of injectable non-insulin antidiabetic drugs; Z79.890 Hormone replacement therapy; W19.XXXA Unspecified fall, initial encounter
CPT/HCPCS: 25607; 36416; 73100; 76000; 82962; 84132; 94640; C1713; J0330; J0690; J1100; J2371; J2405; J2704; J3010; J3490; J7030; J7613; J7644; J9999

== ENCOUNTER → 2024-12-24 16:00 | Outpatient (BNVA) | payer MEDICARE, MEDICAID, SELFPAY | PROVIDERS: PCP Family Medicine; Visit Provider Orthopaedic Surgery | DX: M25.531 Pain in right wrist (principal) | CPT/HCPCS: 73110; 99024 ==

== ENCOUNTER → 2025-01-23 10:16 | Outpatient (BNVA) | payer MEDICARE, MEDICAID, SELFPAY | PROVIDERS: PCP Family Medicine; Visit Provider Orthopaedic Surgery | DX: Z48.89 Encounter for other specified surgical aftercare (principal); M25.531 Pain in right wrist | CPT/HCPCS: 73110; 99024 ==

== ENCOUNTER 2025-01-27 22:55 | Inpatient (IN) | payer MEDICARE, MEDICAID, SELFPAY ==
[2025-01-27 22:56] VITALS: BP 143/53; PULSE 113; RESP 36; TEMP 36.9; O2SAT 94; BMI 42.6
--- NOTE | 2025-01-27 23:06 | XRR_ITS ---
PROCEDURE INFORMATION: Exam: XR Chest Exam date and time: 01/27/2025 11:11 PM Age: 74 years old Clinical indication: Shortness of breath; Additional info: SOB TECHNIQUE: Imaging protocol: Radiologic exam of the chest. Views: 1 view. COMPARISON: CR XR chest 1V portable [id number] 11/02/2024 12:53 PM FINDINGS: Lungs: Patchy bilateral ground-glass airspace opacities reflecting alveolar edema and/or pneumonic infiltrate. Right middle lobe 25 mm nodule suspected, chest CT advised for further evaluation. Pleural spaces: Unremarkable. No pleural effusion. No pneumothorax. Heart/Mediastinum: Cardiomegaly and pulmonary vascular congestion. Bones/joints: Unremarkable. XR/XR chest 1V portable [id number] IMPRESSION: 1. Cardiomegaly and pulmonary vascular congestion. 2. Patchy bilateral ground-glass airspace opacities reflecting alveolar edema and/or pneumonic infiltrate. 3. Right middle lobe 25 mm nodule suspected, chest CT advised for further evaluation.
[2025-01-27 23:07] VITALS: BP 141/69; PULSE 109; O2SAT 94
--- NOTE | 2025-01-27 23:09 | ECG_ITS ---
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 Measurements Intervals [place] Rate: 111 P: 54 DE: 159 QRS: 18 QRSD: 98 T: 105 QT: 304 QTc: 413 Interpretive Statements SINUS TACHYCARDIA SEPTAL MYOCARDIAL INFARCTION , PROBABLY OLD [40+ ms Q WAVE IN V1/V2] MODERATE T-WAVE ABNORMALITY, CONSIDER LATERAL ISCHEMIA [-0.1+ mV T-WAVE IN I/aVL/V5/V6] Compared to ECG 11/02/2024 17:52:51 T-wave abnormality now present Possible ischemia now present Myocardial infarct finding still present Electronically Signed On 01-28-2025 11:34:37 CDT by Kaz Stafford M.D. [email or web address] [id number]
[2025-01-27 23:12] LABS: ABG PH Result 7.34 (7.35-7.45); Base Excess ABG 6.1 mmol/L (-2.0-2.0); Blood Gas Allen Test Pos; Blood Gas Operator Identificat MONROous; Blood Gas Sample Site Radial, left; Blood Gas Sample Type Arterial; Oxygen Device SIMPLE MASK; PO2 ABG 86.3 mmHg (80.0-100.0)
[2025-01-27 23:35] VITALS: PULSE 108; RESP 30; O2SAT 95
[2025-01-27 23:37] VITALS: BP 130/69; PULSE 101; O2SAT 92
[2025-01-28] VITALS (54 sets, daily range): BP systolic 96–186; BP diastolic 48–91; PULSE 68–108; RESP 12–27; TEMP 36.1–37.2; O2SAT 86–98
[2025-01-28] LABS: Influenza A NEGATIVE (Negative); Influenza B NEGATIVE (Negative); Respiratory Syncytial Virus Ce NEGATIVE (Negative); SARS-CoV-2 PCR NEGATIVE (Negative)
[2025-01-28 00:15] LABS: Basophils # 0.1 10^3/uL (0.0-0.1); Basophils % 0.3 %; Eosinophils # 0.1 10^3/uL (0.0-0.8); Eosinophils % 0.2 %; Hematocrit 31.5 % (37-53); Lymphocytes # 0.5 10^3/uL (0.8-4.8); Lymphocytes % 1.7 %; Mean Corpuscular HGB Conc 27.3 g/dL (30-55); Mean Corpuscular Hemoglobin 23.2 pg (27-33); Mean Corpuscular Volume 84.9 fl (82-101); Mean Platelet Volume 8.9 fL (7.4-10.4); Monocytes # 1.8 10^3/uL (0.2-0.9); Monocytes % 6.4 %; Neutrophils # 25.29 10^3/uL (1.8-7.7); Neutrophils % 89.9 %; Nucleated Red Blood Cells % 0 %; Platelet Count 448 10^3/cmm (157-399); Red Blood Count 3.71 10^6/uL (3.85-5.65); Red Cell Distribution Width 17.5 % (12.1-15.1); White Blood Count 28.13 10^3/uL (3.29-11.43)
[2025-01-28 00:30] LABS: Troponin(5th) Baseline 38 ng/L (0-15)
[2025-01-28 00:39] LABS: Alanine Aminotransferase 7 U/L (0-41); Albumin Level 3.3 g/dL (3.5-5.2); Alkaline Phosphatase 140 U/L (40-130); Anion Gap 15.1 (5-19); Aspartate Amino Transferase 10 U/L (0-40); Blood Urea Nitrogen 19 mg/dL (8-23); Calcium 8.1 mg/dL (8.5-10.5); Carbon Dioxide 30 mmol/L (22-29); Chloride 99 mmol/L (98-107); Creatinine Clr Calc Pharmacy 88.9838; Globulin 5.6 g/dL (1.3-4.6); Glucose 168 mg/dL (65-115); Magnesium 1.9 mg/dL (1.7-2.3); NT Pro B Type Natriuretic Pept 1679 pg/mL (0-125); Osmolality Calculated 296 mOsm/kg (285-295); Potassium 4.1 mmol/L (3.5-5.1); Sodium 140 mmol/L (136-145); Total Bilirubin 0.4 mg/dL (0.15-1.2); Total Protein 8.9 g/dL (6.6-8.7)
[2025-01-28] MEDS: FUROsemide 10 mg/mL SDV 10mL 60 MG IVP (01:18)
--- NOTE | 2025-01-28 01:44 | ECG_ITS ---
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1950 Requested By: Claudio Wray Order Number: [id number] Richar MD: OSCAR NORRIS Measurements Intervals [place] Rate: 84 P: 69 [place]: 182 QRS: 45 QRSD: 106 T: 68 QT: 383 QTc: 453 Interpretive Statements SINUS RHYTHM SEPTAL MYOCARDIAL INFARCTION , PROBABLY OLD [40+ ms Q WAVE IN V1/V2] Compared to ECG 01/27/2025 23:09:20 Sinus tachycardia no longer present T-wave abnormality no longer present Possible ischemia no longer present Myocardial infarct finding still present Electronically Signed On 01-29-2025 23:06:07 CDT by OSCAR NORRIS [email or web address] [id number]
[2025-01-28 02:10] LABS: Troponin 5 2HR 35.82 ng/L (0-15); Troponin 5 2HR Delta -2.18 ABS# (0-10)
[2025-01-28 02:13] LABS: Bilirubin Urine Negative (Negative); Blood Urine Trace (Negative); Glucose Urine UA Negative (Normal); Ketones Urine Trace (Negative); Leukocyte Esterase Urine Negative (Negative); Nitrate Urine Negative (Negative); Protein Urine 2+ (Negative); Urine Appearance Clear (CLEAR); Urine Color Yellow (Yellow); pH Urine 5.5 (5-7)
[2025-01-28 02:18] LABS: Bacteria Urine None Seen /hpf; Hyaline Casts Urine 12.38 /lpf; RBC Urine 0-2 /hpf (0-2); Squamous Epithelial Cell Urine 0-5 /hpf (0-5); WBC Urine 0-5 /hpf (0-5)
[2025-01-28] MEDS: bumetanide 0.25 mg/mL SDV 4 mL 1 MG IVP ×3 (02:19→20:33)
[2025-01-28 02:28] LABS: UA Slide Review UA Slide Review Perf
[2025-01-28] MEDS: cefepime 1,000 mg SDV 2000 MG IVP (03:55)
--- NOTE | 2025-01-28 05:04 | W.ED.SOB ---
HPI - SOB/Dyspnea General: Chief Complaint: Shortness of Breath/Dyspnea Stated Complaint: sob, wheezing Time Seen by Provider: 01/27/25 22:56 History of Present Illness: HPI Narrative: Patient is a 74-year-old male, DNR/DNI status, brought to the emergency department from shelter for increased work of breathing and shortness of breath. On arrival, he is unable to articulate his concerns due to his profound respiratory distress. He arrives tachycardic, tachypneic, hypoxic, diaphoretic, requiring increasing amounts of oxygen to keep saturations above 90%. Further history of is not gleaned at this time again due to patient's severity of symptoms. Related Data Home Medications ?Medication ?Instructions ?Recorded ?Confirmed albuterol sulfate 90 mcg/actuation 2 puff inhalation Q4H PRN 11/02/24 01/23/25 aerosol inhaler Shortness Of Breath Or Wheezing aluminum-mag hydroxide-simethicone 30 ml PO Q2H PRN 11/02/24 01/23/25 400 mg-400 mg-40 mg/5 mL oral susp indigeston/heartburn/gas (Mylanta Maximum Strength) apixaban 5 mg tablet (Eliquis) 5 mg PO BID 11/02/24 01/23/25 Held on 12/06/24. Instructions: Resume on 12/08/24. bisacodyl 10 mg rectal suppository 10 mg [place] .Q72H PRN Constipation 11/02/24 01/23/25 bisacodyl 5 mg tablet 20 mg PO .Q72H PRN Constipation 11/02/24 01/23/25 docusate sodium 100 mg capsule 100 mg PO BID 11/02/24 01/23/25 (Colace) ergocalciferol (vitamin D2) 1,250 50,000 mcg PO Q7D 11/02/24 01/23/25 mcg (50,000 unit) capsule fluoxetine 40 mg capsule 40 mg PO DAILY 11/02/24 01/23/25 fluticasone fur. 200 mcg-umeclid 1 inh inhalation DAILY 11/02/24 01/23/25 62.5 mcg-vilant 25 mcg inhalat.powder (Trelegy Ellipta) gabapentin 300 mg capsule 300 mg PO BID 11/02/24 01/23/25 ipratropium 0.5 mg-albuterol 3 mg 3 ml inhalation BID 11/02/24 01/23/25 (2.5 mg base)/3 mL nebulization soln loperamide 2 mg-simethicone 125 mg 1 tab PO Q6H PRN Diarrhea 11/02/24 01/23/25 tablet magnesium hydroxide 400 mg/5 mL 30 ml PO DAILY PRN Constipation 11/02/24 01/23/25 oral suspension (Milk of Magnesia) multivitamin 1 tab PO QAM 11/02/24 01/23/25 omeprazole 20 mg tablet,delayed 20 mg PO DAILY 11/02/24 01/23/25 release polyethylene glycol 3350 17 17 g PO DAILY PRN bowel management 11/02/24 01/23/25 gram/dose oral powder (Miralax) protein supplement See Rx Instructions .Route .COMPLEX 11/02/24 01/23/25 semaglutide 0.25 mg or 0.5 mg (2 0.5 mg SUBCUT Q7D 11/02/24 01/23/25 mg/3 mL) subcutaneous pen injector (Ozempic) sennosides 8.6 mg tablet (senna) 8.6 mg PO DAILY 11/02/24 01/23/25 spironolactone 50 mg tablet 50 mg PO DAILY 11/02/24 01/23/25 acetaminophen 325 mg tablet 650 mg PO Q4-5H PRN Pain 12/06/24 01/23/25 (Tylenol) levothyroxine 25 mcg tablet 25 mcg PO DAILY 12/06/24 01/23/25 melatonin 1 mg tablet 1 mg PO DAILY 12/06/24 01/23/25 melatonin 5 mg tablet 5 mg PO DAILY 12/06/24 01/23/25 Previous Rx's ?Medication ?Instructions ?Recorded bumetanide 1 mg tablet 1 mg PO BIDAC #60 tabs 11/06/24 Right cockup splint #1 ea 11/28/24 Allergies Allergy/AdvReac Type Severity Reaction Status Date / Time broccoli Allergy ADR-Vomitin Verified 01/27/25 23:06 [facility]: Medical History Open wound of right lower leg Open wound of left lower leg Pressure ulcer of right buttock, stage 3 History of deep vein thrombosis Congestive heart failure Social History Smoking and tobacco/nicotine status: former use of tobacco/nicotine Physical Exam Const: COMMON NORMALS: alert OTHER: Moderate to severe respiratory distress. HENMT: COMMON NORMALS: normocephalic and atraumatic HEAD & SCALP: normocephalic and atraumatic Eye: COMMON NORMALS: Equal, round and reactive pupils present, EOMs intact bilaterally and no scleral icterus PUPIL: Yes Equal, round and reactive pupils present Resp: OTHER: Moderate to severe respiratory distress, tachypneic, crackles in both lung bases. Coarse, wet sounding cough. Cardio: OTHER: Tachycardic, regular rhythm. GI: COMMON NORMALS: Normal to inspection, nondistended, normoactive bowel sounds present, Soft to palpation and non-tender PALPATION: Yes Soft to palpation Neuro: SENSORIUM/ORIENTATION: Yes alert Skin: OTHER: Pale, diaphoretic Course Vital Signs: Vital signs: Vital Signs Temperature 97.9 F 01/28/25 04:23 Pulse Rate 95 01/28/25 04:36 Respiratory Rate 22 H 01/28/25 04:35 Blood Pressure 100/55 01/28/25 04:32 Pulse Oximetry 95 01/28/25 04:36 Oxygen Delivery Me thod BiPAP 01/28/25 04:00 Oxygen Flow Rate 8 01/27/25 22:56 Fraction of Inspir ed Oxygen 40 01/28/25 04:36 MDM - SOB/Dyspnea Medical Decision Making In summary, patient is a DNR 74-year-old male from shelter seen for respiratory distress. Clinical picture is that of fluid overload for which she was given Bumex and placed on BiPAP. The with BiPAP, work of breathing decreased significantly and vital signs stabilized. He also has a profound leukocytosis of uncertain etiology. He was given cefepime and admitted to the hospitalist service to the ICU for further observation and care. Lab Data 01/28/25 00:00 01/28/25 00:00 Labs/Radiology: Radiology Impressions Chest X-Ray 01/27/25 23:06 IMPRESSION: 1. Cardiomegaly and pulmonary vascular congestion. 2. Patchy bilateral ground-glass airspace opacities reflecting alveolar edema and/or pneumonic infiltrate. 3. Right middle lobe 25 mm nodule suspected, chest CT advised for further evaluation. Laboratory Results WBC 28.13 10^3/uL (3.29-11.43) H 01/28/25 00:00 RBC 3.71 10^6/uL (3.85-5.65) L 01/28/25 00:00 Hgb 8.60 g/dL (11.27-16.99) L 01/28/25 00:00 Hct 31.5 % (37-53) L 01/28/25 00:00 MCV 84.9 fl (82-101) 01/28/25 00:00 MCH 23.2 pg (27-33) L 01/28/25 00:00 MCHC 27.3 g/dL (30-55) L 01/28/25 00:00 RDW 17.5 % (12.1-15.1) H 01/28/25 00:00 Plt Count 448 10^3/cmm (157-399) H 01/28/25 00:00 MPV 8.9 fL (7.4-10.4) 01/28/25 00:00 Neut % (Auto) 89.9 % 01/28/25 00:00 Lymph % (Auto) 1.7 % 01/28/25 00:00 [place] % (Auto) 6.4 % 01/28/25 00:00 Eos % (Auto) 0.2 % 01/28/25 00:00 Baso % (Auto) 0.3 % 01/28/25 00:00 Neut # (Auto) 25.29 10^3/uL (1.8-7.7) H 01/28/25 00:00 Lymph # (Auto) 0.5 10^3/uL (0.8-4.8) L 01/28/25 00:00 [place] # (Auto) 1.8 10^3/uL (0.2-0.9) H 01/28/25 00:00 Eos # (Auto) 0.1 10^3/uL (0.0-0.8) 01/28/25 00:00 Baso # (Auto) 0.1 10^3/uL (0.0-0.1) 01/28/25 00:00 Nucleated RBC % (auto) 0 % 01/28/25 00:00 Nucleated RBCs # 0.0 /100WBC 01/28/25 00:00 Specimen Type Arterial 01/27/25 23:00 Sample Site Radial, left 01/27/25 23:00 ABG pH 7.34 (7.35-7.45) L 01/27/25 23:00 ABG pCO2 62.0 mmHg (35-45) H* 01/27/25 23:00 ABG pO2 86.3 mmHg (80.0-100.0) 01/27/25 23:00 ABG HCO3 33.0 mmol/L (22-26) H 01/27/25 23:00 ABG Base Excess 6.1 mmol/L (-2.0-2.0) H 01/27/25 23:00 Ivan Test Pos 01/27/25 23:00 Hematocrit 27.0 % (42-52) L 01/27/25 23:00 O2 Delivery Device Simple mask 01/27/25 23:00 O2 Liters/Min 8.0 % 01/27/25 23:00 Racking Machine Operator ID Monroous 01/27/25 23:00 Sodium 140 mmol/L (136-145) 01/28/25 00:00 Potassium 4.1 mmol/L (3.5-5.1) 01/28/25 00:00 Chloride 99 mmol/L (98-107) 01/28/25 00:00 Carbon Dioxide 30 mmol/L (22-29) H 01/28/25 00:00 Anion Gap 15.1 (5-19) 01/28/25 00:00 BUN 19 mg/dL (8-23) 01/28/25 00:00 Creatinine 1.1 mg/dL (0.7-1.2) 01/28/25 00:00 GFR Calculation Not Reportable 01/28/25 00:00 Glucose 168 mg/dL (65-115) H 01/28/25 00:00 Calculated Osmolality 296 mOsm/kg (285-295) H 01/28/25 00:00 Lactic Acid 1.0 mmol/L (0.5-2.2) 01/28/25 00:00 Calcium 8.1 mg/dL (8.5-10.5) L 01/28/25 00:00 Magnesium 1.9 mg/dL (1.7-2.3) 01/28/25 00:00 Total Bilirubin 0.4 mg/dL (0.15-1.2) 01/28/25 00:00 AST 10 U/L (0-40) 01/28/25 00:00 ALT 7 U/L (0-41) 01/28/25 00:00 Alkaline Phosphatase 140 U/L (40-130) H 01/28/25 00:00 Troponin T Baseline 38 ng/L (0-15) H 01/28/25 00:00 Troponin T 120 Minute 35.82 ng/L (0-15) H 01/28/25 01:42 Delta Troponin T -2.18 ABS# (0-10) L 01/28/25 01:42 NT-Pro-B Natriuret Pep 1679 pg/mL (0-125) H 01/28/25 00:00 Total Protein 8.9 g/dL (6.6-8.7) H 01/28/25 00:00 Albumin 3.3 g/dL (3.5-5.2) L 01/28/25 00:00 Globulin 5.6 g/dL (1.3-4.6) H 01/28/25 00:00 Urine Color Yellow (Yellow) 01/28/25 02:00 Urine Appearance Clear (CLEAR) 01/28/25 02:00 Urine pH 5.5 (5-7) 01/28/25 02:00 Ur Specific [place] 1.020 (1.005-1.030) 01/28/25 02:00 Urine Protein 2+ (Negative) A 01/28/25 02:00 Urine Glucose (UA) Negative (Normal) 01/28/25 02:00 Urine Ketones Trace (Negative) 01/28/25 02:00 Urine Blood Trace (Negative) A 01/28/25 02:00 Urine Nitrate Negative (Negative) 01/28/25 02:00 Urine Bilirubin Negative (Negative) 01/28/25 02:00 Urine Urobilinogen 1.0 mg/dL (Negative) 01/28/25 02:00 Ur Leukocyte Esterase Negative (Negative) 01/28/25 02:00 Urine RBC 0-2 /hpf (0-2) 01/28/25 02:00 Urine WBC 0-5 /hpf (0-5) 01/28/25 02:00 Ur Squamous Epith Cells 0-5 /hpf (0-5) 01/28/25 02:00 Amorphous Sediment Not Reportable 01/28/25 02:00 Urine Bacteria None seen /hpf (NONE) 01/28/25 02:00 Hyaline Casts 12.38 /lpf 01/28/25 02:00 Influenza A (PCR) Negative (Negative) 01/27/25 23:10 Influenza Type B (PCR) Negative (Negative) 01/27/25 23:10 RSV (PCR) Negative (Negative) 01/27/25 23:10 SARS-CoV-2 (PCR) Negative (Negative) 01/27/25 23:10 All radiology interpretation(s) finalized by discharge EKG Data EKG 1: Interpretation: Time?0144?sinus rhythm, rate of 84, no ST segment elevation or depression, no T wave inversions, intervals within normal limits. QTc = 424. Critical Care Time Critical Care Time: Critical Care Time: Yes Total Critical Care Time: 47 Attestation: This case had a high probability of a clinically significant, sudden, or life threatening deterioration of this patient's condition which required my full and direct attention, intervention and personal management. Discharge Plan Discharge Patient Disposition: Admitted As Inpatient Admit Provider: Coco Virk Clinical Impression: Acute hypoxic respiratory failure, CHF exacerbation, Leukocytosis Condition: Serious Coding Level of Care Code ED Accounting Office Manager for Chana Glass
[2025-01-28 05:40] LABS: ABG PH Result 7.36 (7.35-7.45); Alveolar-Arterial Oxygen Gradi 19.3 mmHg (5-10); Arterial Blood Gas Hematocrit 28.5 % (42-52); Base Excess ABG 8.9 mmol/L (-2.0-2.0); Blood Gas Operator Identificat JDB; Blood Gas Sample Site Brachial, left; Blood Gas Sample Type Arterial; Carboxyhemoglobin 1.7 %THgb (0.4-20.1); HCO3 ABG 35.9 mmol/L (22-26); HGB O2 Sat 88.1 % (95-100); Ionized Calcium Level - ABG 1.2 mmol/L (1.1-1.4); Methemoglobin 0.6 % (0.4-1.5); Oxygen Device BIPAP; Oxygen Saturation ABG 90.2; PO2 ABG 60.1 mmHg (80.0-100.0); PO2 FiO2 Ratio Arterial Blood 150; Potassium Level - ABG 4.2 mmol/L (3.5-5.0); Total Hemoglobin 9.3 g/dL (14-18)
[2025-01-28 05:41] LABS: ABG PCO2 63.3 mmHg (35-45)
[2025-01-28] MEDS: clindamycin 600 MG/50 ML PREMIX 100 MG IV ×2 (06:12→12:42)
[2025-01-28] MEDS: methylPREDNISolone sod succ 40 mg/mL INJ IVP ×2 (06:12→17:51)
[2025-01-28] MEDS: heparin 5,000 unit/mL INJ 1 mL 5000 UNIT SUBCUT (06:12)
[2025-01-28 07:01] LABS: Basophils # 0.1 10^3/uL (0.0-0.1); Basophils % 0.3 %; Eosinophils % 0.1 %; Hematocrit 32.1 % (37-53); Lymphocytes # 0.5 10^3/uL (0.8-4.8); Lymphocytes % 1.8 %; Mean Corpuscular HGB Conc 27.1 g/dL (30-55); Mean Corpuscular Volume 84.9 fl (82-101); Mean Platelet Volume 9.3 fL (7.4-10.4); Monocytes # 0.5 10^3/uL (0.2-0.9); Monocytes % 1.9 %; Neutrophils # 26.37 10^3/uL (1.8-7.7); Neutrophils % 94.6 %; Nucleated Red Blood Cells % 0 %; Platelet Count 472 10^3/cmm (157-399); Red Blood Count 3.78 10^6/uL (3.85-5.65); Red Cell Distribution Width 17.6 % (12.1-15.1); White Blood Count 27.86 10^3/uL (3.29-11.43)
[2025-01-28 07:22] LABS: Troponin 5 6HR 30.49 ng/L (0-15)
[2025-01-28 07:27] LABS: Troponin 5 6HR Delta -7.51 ng/L (0-12)
[2025-01-28 07:30] LABS: Alanine Aminotransferase 7 U/L (0-41); Albumin Level 3.4 g/dL (3.5-5.2); Alkaline Phosphatase 144 U/L (40-130); Anion Gap 16.2 (5-19); Aspartate Amino Transferase 9 U/L (0-40); Blood Urea Nitrogen 22 mg/dL (8-23); Calcium 8.6 mg/dL (8.5-10.5); Carbon Dioxide 31 mmol/L (22-29); Chloride 98 mmol/L (98-107); Creatinine Clr Calc Pharmacy 88.7434; Globulin 5.8 g/dL (1.3-4.6); Glucose 188 mg/dL (65-115); Magnesium 2.1 mg/dL (1.7-2.3); NT Pro B Type Natriuretic Pept 2102 pg/mL (0-125); Osmolality Calculated 300 mOsm/kg (285-295); Phosphorus 2.9 mg/dL (2.5-4.5); Potassium 4.2 mmol/L (3.5-5.1); Sodium 141 mmol/L (136-145); Total Bilirubin 0.4 mg/dL (0.15-1.2); Total Protein 9.2 g/dL (6.6-8.7)
[2025-01-28] MEDS: ipratropium-albuterol 3 mL Neb INHALATION ×5 (07:56→23:49)
--- NOTE | 2025-01-28 07:59 | USCV_ITS ---
Edson Jaffe Age: 74 Gender: M : 1950 Exam Date: 01/28/2025 09:03 Ordering Phys: Vijay Duncan MD Technologist: [employer] Exam Location: [facility] [place] Indication: R/O DVT HISTORY: Lower extremity swelling. PROCEDURES: Venous duplex imaging was performed in bilateral lower extremities. The following venous structures were evaluated: common femoral vein, profunda vein, proximal portion of the greater saphenous vein, superficial femoral vein, and the popliteal vein. In addition, the posterior tibial and peroneal trunk were evaluated. FINDINGS: Examination was technically limited due to body habitus and patient mobility No evidence of DVT seen in any vessel visualized at this time. CONCLUSIONS Examination was technically limited due to body habitus and patient mobility No evidence of right lower extremity DVT. No evidence of left lower extremity DVT. Cole Rosenthal MD (Electronically Signed) Final Date: 28 January 2025 11:06 S
[2025-01-28 08:23] LABS: D Dimer 0.36 ug/mLFEU (0-0.59)
[2025-01-28 08:26] LABS: C Reactive Protein 282.6 mg/L (0.0-4.9)
[2025-01-28 08:34] LABS: Procalcitonin 0.37 ng/mL (0-0.5)
--- NOTE | 2025-01-28 08:36 | PM.HP ---
Providers/Chief Complaint Admitting Physician: Coco Virk MD--- patient seen after 12 midnight Primary Care Provider: Otilio Huang Chief Complaint: sob, wheezing History of Present Illness Esdon Jaffe is a 74 year old male from the halfway presenting with respiratory failure significant for hypoxic hypercapnic respiratory failure and CHF exacerbation. Patient seen and evaluated chest x-ray with significant for volume overload along with underlining pneumonia. BiPAP initiated nebulizing treatments in place and antibiotics of cefepime and clindamycin in place for adequate coverage for gram-negative and gram-positive and anaerobes.. Most avoid IV fluid due to already volume overload. Cardiology has been consulted with Dr. Jacobs from I personally spoke to this morning regarding patient's CHF exacerbation. And he will be seeing the patient. Review of Systems Narrative: Upon 10 organ system review was significant for cardiopulmonary process with hypoxic hypercapnic respiratory failure and heart failure Medications/Allergies Home Medications ?Medication ?Instructions ?Recorded ?Confirmed ?Last Taken ?Type albuterol sulfate 90 mcg/actuation 2 puff inhalation Q4H PRN 11/02/24 01/23/25 12/05/24 History aerosol inhaler Shortness Of Breath Or Wheezing aluminum-mag hydroxide-simethicone 30 ml PO Q2H PRN 11/02/24 01/23/25 Unknown History 400 mg-400 mg-40 mg/5 mL oral susp indigeston/heartburn/gas (Mylanta Maximum Strength) apixaban 5 mg tablet (Eliquis) 5 mg PO BID 11/02/24 01/23/25 12/04/24 History Held on 12/06/24. Instructions: Resume on 12/08/24. bisacodyl 10 mg rectal suppository 10 mg OH .Q72H PRN Constipation 11/02/24 01/23/25 Unknown History bisacodyl 5 mg tablet 20 mg PO .Q72H PRN Constipation 11/02/24 01/23/25 Unknown History docusate sodium 100 mg capsule 100 mg PO BID 11/02/24 01/23/25 12/05/24 History (Colace) ergocalciferol (vitamin D2) 1,250 50,000 mcg PO Q7D 11/02/24 01/23/25 12/05/24 History mcg (50,000 unit) capsule fluoxetine 40 mg capsule 40 mg PO DAILY 11/02/24 01/23/25 12/05/24 History fluticasone fur. 200 mcg-umeclid 1 inh inhalation DAILY 11/02/24 01/23/25 12/05/24 History 62.5 mcg-vilant 25 mcg inhalat.powder (Trelegy Ellipta) gabapentin 300 mg capsule 300 mg PO BID 11/02/24 01/23/25 12/05/24 History ipratropium 0.5 mg-albuterol 3 mg 3 ml inhalation BID 11/02/24 01/23/25 12/05/24 History (2.5 mg base)/3 mL nebulization soln loperamide 2 mg-simethicone 125 mg 1 tab PO Q6H PRN Diarrhea 11/02/24 01/23/25 Unknown History tablet magnesium hydroxide 400 mg/5 mL 30 ml PO DAILY PRN Constipation 11/02/24 01/23/25 Unknown History oral suspension (Milk of Magnesia) multivitamin 1 tab PO QAM 11/02/24 01/23/25 12/05/24 History omeprazole 20 mg tablet,delayed 20 mg PO DAILY 11/02/24 01/23/25 12/05/24 History release polyethylene glycol 3350 17 17 g PO DAILY PRN bowel management 11/02/24 01/23/25 11/20/24 History gram/dose oral powder (Miralax) protein supplement See Rx Instructions .Route .COMPLEX 11/02/24 01/23/25 12/05/24 History semaglutide 0.25 mg or 0.5 mg (2 0.5 mg SUBCUT Q7D 11/02/24 01/23/25 11/28/24 History mg/3 mL) subcutaneous pen injector (Ozempic) sennosides 8.6 mg tablet (senna) 8.6 mg PO DAILY 11/02/24 01/23/25 12/05/24 History spironolactone 50 mg tablet 50 mg PO DAILY 11/02/24 01/23/25 12/05/24 History bumetanide 1 mg tablet 1 mg PO BIDAC #60 tabs 11/06/24 01/23/25 12/05/24 Rx Right cockup splint #1 ea 11/28/24 01/23/25 Unknown Rx acetaminophen 325 mg tablet 650 mg PO Q4-5H PRN Pain 12/06/24 01/23/25 11/30/24 History (Tylenol) levothyroxine 25 mcg tablet 25 mcg PO DAILY 12/06/24 01/23/25 12/05/24 History melatonin 1 mg tablet 1 mg PO DAILY 12/06/24 01/23/25 12/05/24 History melatonin 5 mg tablet 5 mg PO DAILY 12/06/24 01/23/25 12/05/24 History Allergies Allergy/AdvReac Type Severity Reaction Status Date / Time broccoli Allergy ADR-Vomitin Verified 01/27/25 23:06 g PFSH Acute PFSH: Medical History Open wound of right lower leg Open wound of left lower leg Pressure ulcer of right buttock, stage 3 History of deep vein thrombosis Congestive heart failure Social History Smoking and tobacco/nicotine status: former use of tobacco/nicotine Vitals/I&O/Wt Last Vital Signs Temp 97 F L 01/28/25 07:30 Pulse 79 01/28/25 08:10 Resp 20 H 01/28/25 08:00 BP 111/57 01/28/25 07:30 Pulse Ox 89 L 01/28/25 08:00 O2 Del Method BiPAP 01/28/25 08:00 O2 Flow Rate 4 01/28/25 07:30 FiO2 40 01/28/25 08:00 01/27/25 01/28/25 01/28/25 22:59 06:59 14:59 Intake Total 50 / 50 Balance 50 / 50 Weight last 48 hrs Weight 142 kg Weight 142 kg Weight 142.7 kg Physical Exam Narrative: Generally patient is morbidly obese male coming from halfway in respiratory failure requiring supportive supplemental oxygen and BiPAP HEENT?normocephalic/atraumatic Neck?neck is supple Cardiovascular?heart rate is regular with normal rate Chest?lungs are with coarse breath sounds and scattered crackles Abdomen?soft nontender nondistended but rather obese abdomen has Robertson to gravity draining concentrated urine Extremities significant for third spacing edema at 3-4+ Neurology she has no focality Urinary Catheter Management: Robertson: Cath Placed During This Visit: yes Reason for Continuing Indwelling Catheter: Accurate Measurement of Urinary Output in Critically Ill Patients Urinary Catheter Date of Insertion: 01/28/25 Urinary Catheter Time of Insertion: 01:19 Data 01/28/25 06:14 01/28/25 06:14 Micro: Microbiology 01/28/25 00:00 Blood Culture - Preliminary Blood SPECIMEN COLLECTED 01/28/25 00:00 Blood Culture - Preliminary Blood SPECIMEN COLLECTED A&P Assessment and plan (1) Leukocytosis: Leukocytosis secondary to infection likely from pneumonia - Continue to treat with antibiotics with cefepime and and clindamycin for adequate coverage of staph family with MRSA included (2) CHF exacerbation: Patient is with elevated BNP chest x-ray significant for volume overload - IV diuretics of Bumex initiated 1 mg every 12 hours with monitoring for interval improvement and optimization (3) Acute hypoxic respiratory failure: - Continue supplemental oxygen with BiPAP - Must continue to treat the pneumonia continue to treat other underlying conditions (4) Hypercapnic respiratory failure: Patient is with underlining infection of the lung precipitating much COPD exacerbation with hypoxic hypercapnic respiratory failure - Patient admitted to ICU - Continue with BiPAP with oxygen - Nebulizing treatments with place - Positive antibiotics such as clindamycin and cefepime in place - Patient resting much comfortably with this combination of medications (5) Pneumonia: - Patient is with underlining pneumonia in the setting of much volume overload in the lung - Coming from halfway patient is put on cefepime and and clindamycin for better coverage - Continue nebulizing treatment - Continue BiPAP this helps the patient much better - Patient is on oxygen at home at 3 L he said patient is at 4 L on BiPAP saturating at 95% PDMP PDMP Reviewed: Last Reviewed 01/28/25 08:43 by Coco Virk MD Attestations Medical Necessity Statement*: Patient is with hypoxic hypercapnic respiratory failure requiring a BiPAP and ICU admission I attest that this patient is a inpatient admission for at least a minimum of 2 midnights. Patient in addition does have pneumonia. Coding Level of Care Code 44698 Diagnoses Leukocytosis D72.829 CHF exacerbation I50.9 Acute hypoxic respiratory failure J96.01 Hypercapnic respiratory failure J96.92 Pneumonia J18.9 Time Spent (min) 60
--- NOTE | 2025-01-28 08:37 | PHA.VACGOAL ---
Vancomycin Goal - Goal Vancomycin Goal:: 15-20 mg/L Vancomycin Indication:: Pneumonia - Therapy Day of therpy:: Day []of [] . Actual body weight (kg): 313 lb 0.902 oz - Data Labs: WBC 27.86 10^3/uL (3.29-11.43) H 01/28/25 06:14 RBC 3.78 10^6/uL (3.85-5.65) L 01/28/25 06:14 Hgb 8.70 g/dL (11.27-16.99) L 01/28/25 06:14 Hct 32.1 % (37-53) L 01/28/25 06:14 MCV 84.9 fl (82-101) 01/28/25 06:14 MCH 23.0 pg (27-33) L 01/28/25 06:14 MCHC 27.1 g/dL (30-55) L 01/28/25 06:14 RDW 17.6 % (12.1-15.1) H 01/28/25 06:14 Sodium 141 mmol/L (136-145) 01/28/25 06:14 Potassium 4.2 mmol/L (3.5-5.1) 01/28/25 06:14 Chloride 98 mmol/L (98-107) 01/28/25 06:14 Carbon Dioxide 31 mmol/L (22-29) H 01/28/25 06:14 Anion Gap 16.2 (5-19) 01/28/25 06:14 BUN 22 mg/dL (8-23) 01/28/25 06:14 Creatinine 1.1 mg/dL (0.7-1.2) 01/28/25 06:14 GFR Calculation Not Reportable 01/28/25 06:14 Treatment plan:: new consult Regimen:: 3000 LOAD 2000 MG Q12H
[2025-01-28 08:46] LABS: Estmated Average Glucose 100; Hemoglobin A1C 5.1 % (4.0-6.0)
[2025-01-28 09:12] LABS: Glucose Point of Care 205 mg/dL (70-110)
[2025-01-28] MEDS: insulin lispro 100 unit/1 mL SUBCUT ×2 (09:13→12:42)
[2025-01-28] MEDS: pantoprazole DR 40 mg Tablet PO (09:14)
[2025-01-28] MEDS: docusate sodium 100 mg Capsule PO ×2 (09:14→17:46)
[2025-01-28] MEDS: vancomycin 3,000 MG/600 ML PIGGYBACK 200 MG IV (09:14)
[2025-01-28 12:14] LABS: Glucose Point of Care 195 mg/dL (70-110)
[2025-01-28 12:37] LABS: MRSA PCR OZH (swab) NOT DETECTED (Negative)
--- NOTE | 2025-01-28 14:30 | PC.NURSE ---
Pt woke up and begged for BiPap mask to be off. Notified RT. Bipap removed. Pt on 4lpm/NC. O2 sas at 83/84%, pt had a couple big loose coughs, O2 sats improved to 87%. Increased oxygen to 6lpm/NC, O2 sats now at 91%. Pt sitting up in bed sipping a diet Dr Romero , conversing with staff.
--- NOTE | 2025-01-28 14:47 | P.PN_ITS ---
Subjective 2 Subjective: - Patient was seen this morning - He is on BiPAP - Mild respiratory distress, is very, in tercostal retractions suprasternal retractions, tachypnea - Reports feeling short of breath - He is alert to person, to place, not t o time at times he does become confused Vitals/I&O/Wt Last Vital Signs Temp 97 F L 01/28/25 07:30 Pulse 82 01/28/25 12:00 Resp 22 H 01/28/25 12:00 BP 150/85 01/28/25 12:00 Pulse Ox 89 L 01/28/25 12:00 O2 Del Method BiPAP 01/28/25 12:00 O2 Flow Rate 4 01/28/25 08:30 FiO2 40 01/28/25 12:00 01/27/25 01/28/25 01/28/25 22:59 06:59 14:59 Intake Total 50 / 50 Balance 50 / 50 Weight last 48 hrs Weight 142 kg Weight 142 kg Weight 142.7 kg Physical Exam 2 Const: COMMON NORMALS: no acute distress ORIENTATION/CONSCIOUSNESS: Yes awake, Yes oriented to person, Yes oriented to place and Yes confused; not oriented to time Resp: AUSCULTATION: crackles and wheezes OTHER: Nasal flaring, intercostal costal retractions, suprasternal retractions, mild to moderate respiratory distress Cardio: COMMON NORMALS: regular rate, regular rhythm, S1 normal heart sound present and S2 normal heart sound present RATE: regular rate RHYTHM: r egular rhythm HEART SOUNDS: S1 normal heart sound present and S2 normal heart sound present GI: COMMON NORMALS: Normal to inspection, nondistended, normoactive bowel sounds present and non-tender Extremity: NARRATIVE EXTREMITY EXAM: 2+ pitting edema Neuro: SENSORIUM/ORIENTATION: Yes oriented to person, Yes oriented to place and No oriented to time Psych: COMMON NORMALS: mental status grossly normal Urinary Catheter Management: Robertson: Cath Placed During This Visit: yes Reason for Continuing Indwelling Catheter: Accurate Measurement of Urinary Output in Critically Ill Patients Urinary Catheter Date of Insertion: 01/28/25 Urinary Catheter Time of Insertion: 01:19 Data 01/28/25 06:14 01/28/25 06:14 Micro: Microbiology 01/28/25 00:00 Blood Culture - Preliminary Blood SPECIMEN COLLECTED 01/28/25 00:00 Blood Culture - Preliminary Blood SPECIMEN COLLECTED A&P Assessment and plan (1) Leukocytosis: (2) CHF exacerbation: (3) Acute hypoxic respiratory failure: (4) Hypercapnic respiratory failure: (5) Pneumonia: (6) Acute encephalopathy: (7) Acute anemia: (8) Sepsis: Plan Acute hypoxic respiratory failure - Multifactorial - From pneumonia - From COPD exacerbation - From CHF exacerbation Plan - Admit to ICU - Currently with mild to moderate respiratory distress continue BiPAP - Continue cefepime - Add vancomycin - Blood cultures - Sputum cultures - soluMedrol 40 mg IV every 12 hours - Continue DuoNeb - Bumex 1 mg IV 12 hours - Monitor respiratory status closely - Full code - Lovenox for DVT prophylaxis Patient is on Eliquis as outpatient, switch to therapeutic Lovenox given all acute encephalopathy Acute encephalopathy - Likely secondary to sepsis, pneumonia - Continue to monitor mentation closely - Neurochecks - Aspiration precautions Sepsis, secondary to pneumonia NSTEMI, serial EKGs, serial troponins, telemetry monitoring, aspirin, therapeutic Lovenox Type 2 diabetes mellitus, low-dose sliding scale Acute anemia - Iron studies - Ferritin - Protonix, Carafate Full code Lovenox for DVT prophylaxis PDMP PDMP Reviewed: Not Reviewed Attestations 2 Medical Necessity Statement*: Patient requires hospitalization, inpatient, given the 2 minutes for acute hypoxic respiratory failure sec to pneumonia, COPD, CHF, with sepsis, acute encephalopathy, NSTEMI Diagnoses Leukocytosis D72.829 CHF exacerbation I50.9 Acute hypoxic respiratory failure J96.01 Hypercapnic respiratory failure J96.92 Pneumonia J18.9 Acute encephalopathy G93.40 Acute anemia D64.9 Sepsis A41.9
[2025-01-28 15:49] LABS: Ferritin 70 ng/mL (30-400); Iron 14 ug/dL (59-158); Percent Saturation 3.9 % (20-50); Total Iron Binding Capacity 353 mcg/dl; Unsaturated Iron Binding 339 ug/dL (112-347)
[2025-01-28] MEDS: sucralfate 1 gm Tablet PO (16:18)
[2025-01-28] MEDS: metOLazone 5 MG Tablet PO (16:19)
[2025-01-28] MEDS: acetaminophen 325 mg Tablet 650 MG PO (16:20)
[2025-01-28] MEDS: cefepime 1,000 mg SDV 1000 MG IVP (16:21)
[2025-01-28] MEDS: pantoprazole 40 mg SDV IVP (16:21)
--- NOTE | 2025-01-28 16:39 | PC.NURSE ---
NIH scale completed as ordered. Leg Motor: pt states his legs are weak, score mostly likely reflects his reported weakness vs neuro deficit
[2025-01-28 17:35] LABS: Glucose Point of Care 133 mg/dL (70-110)
[2025-01-28] MEDS: gabapentin 400 mg Capsule PO (17:45)
[2025-01-28] MEDS: enoxaparin 100 mg/mL Syringe 140 MG SUBCUT (17:49)
[2025-01-28 19:53] LABS: Glucose Point of Care 186 mg/dL (70-110)
[2025-01-28] MEDS: vancomycin 2,000 MG/400 ML PIGGYBACK 200 MG IV (20:29)
[2025-01-29] VITALS (40 sets, daily range): BP systolic 106–171; BP diastolic 49–93; PULSE 62–100; RESP 15–26; TEMP 36.2–36.8; O2SAT 91–98
[2025-01-29] MEDS: hyDRALAzine 20 mg/mL INJ 1 mL 10 MG IVP (00:03)
--- NOTE | 2025-01-29 02:49 | PC.NURSE ---
NIH stroke scale Patient has weakness in both legs which he states has been an ongoing problem for some time prior to this hospital admission. Weakness in legs causes patient to score a 4 on the NIH stroke scale.
[2025-01-29] MEDS: sucralfate 1 gm Tablet PO ×2 (03:01→15:48)
[2025-01-29] MEDS: pantoprazole 40 mg SDV IVP ×2 (03:02→15:49)
[2025-01-29] MEDS: cefepime 1,000 mg SDV 1000 MG IVP ×2 (03:03→15:49)
[2025-01-29] MEDS: ipratropium-albuterol 3 mL Neb INHALATION ×6 (03:11→23:30)
[2025-01-29 04:21] LABS: Basophils % 0.1 %; Hematocrit 29.4 % (37-53); Lymphocytes # 0.6 10^3/uL (0.8-4.8); Lymphocytes % 2.3 %; Mean Corpuscular HGB Conc 27.2 g/dL (30-55); Mean Corpuscular Hemoglobin 23.1 pg (27-33); Mean Corpuscular Volume 84.7 fl (82-101); Mean Platelet Volume 9.4 fL (7.4-10.4); Monocytes # 1.3 10^3/uL (0.2-0.9); Monocytes % 4.7 %; Neutrophils # 24.67 10^3/uL (1.8-7.7); Nucleated Red Blood Cells % 0 %; Platelet Count 460 10^3/cmm (157-399); Red Blood Count 3.47 10^6/uL (3.85-5.65); Red Cell Distribution Width 17.5 % (12.1-15.1); White Blood Count 26.83 10^3/uL (3.29-11.43)
[2025-01-29 04:33] LABS: ABG PCO2 54.9 mmHg (35-45); ABG PH Result 7.41 (7.35-7.45); Arterial Blood Gas Hematocrit 28.2 % (42-52); Base Excess ABG 8.6 mmol/L (-2.0-2.0); Blood Gas Allen Test Pos; Blood Gas Operator Identificat JDB; Blood Gas Sample Site Radial, left; Blood Gas Sample Type Arterial; HCO3 ABG 34.5 mmol/L (22-26); PO2 ABG 66.3 mmHg (80.0-100.0)
[2025-01-29 04:34] LABS: Oxygen Device BIPAP; PO2 FiO2 Ratio Arterial Blood 165
[2025-01-29 04:48] LABS: C Reactive Protein 204.4 mg/L (0.0-4.9)
[2025-01-29 04:52] LABS: NT Pro B Type Natriuretic Pept 1042 pg/mL (0-125); Procalcitonin 0.27 ng/mL (0-0.5)
[2025-01-29 05:03] LABS: Anion Gap 15.9 (5-19); Blood Urea Nitrogen 40 mg/dL (8-23); Calcium 8.5 mg/dL (8.5-10.5); Carbon Dioxide 30 mmol/L (22-29); Chloride 98 mmol/L (98-107); Glucose 197 mg/dL (65-115); Osmolality Calculated 305 mOsm/kg (285-295); Potassium 3.9 mmol/L (3.5-5.1); Sodium 140 mmol/L (136-145)
[2025-01-29] MEDS: methylPREDNISolone sod succ 40 mg/mL INJ IVP ×2 (05:04→17:54)
[2025-01-29] MEDS: enoxaparin 100 mg/mL Syringe 140 MG SUBCUT (05:06)
[2025-01-29 07:18] LABS: Glucose Point of Care 151 mg/dL (70-110)
--- NOTE | 2025-01-29 08:26 | XR_ITS ---
WS: [id number] XR lumbar spine 2-3V* [id number] REASON FOR EXAM: pain FINDINGS: Suboptimal exposure. Rotatory dextroscoliosis. Straightening of the normal lordosis of the lumbar spine. Wedge-shaped compression deformities of T12, T11, and L1. There is moderate narrowing of the T11-T12 disc space with moderate endplate sclerosis and osteophytosis. The T12-L1 disc space is essentially obliterated with endplate sclerosis and osteophytosis. The remaining lumbar vertebrae are intact without significant compression deformity or focal lesion. There is significant narrowing of the disc space at L3-L4, L4-L5, and L5-S1. Degenerative gas is seen in the disc spaces at L3-L4 and L4-L5. No spondylolysis identified. 3. Millimeters of anterolisthesis of L3 in relation to L2 and L4. Moderate degenerative arthropathy in the facet joints L3-S1. Mild XR/XR lumbar spine 2-3V* [id number] IMPRESSION: Significant multilevel degenerative spondylosis as above. Compression deformities appear to be chronic.
--- NOTE | 2025-01-29 08:26 | XR_ITS ---
WS: [id number] XR hip LT 2-3V wo/w pel* [id number] REASON FOR EXAM: pain FINDINGS: Suboptimal exposure. No fracture or focal bone lesion. Moderate narrowing of the joint space with moderate subchondral sclerosis and osteophytosis of the acetabulum. XR/XR hip LT 2-3V wo/w pel* [id number] IMPRESSION: Moderate osteoarthritis. No acute abnormality.
[2025-01-29] MEDS: spironolactone 25 mg Tablet 50 MG PO (10:34)
[2025-01-29] MEDS: gabapentin 400 mg Capsule PO ×2 (10:34→17:53)
[2025-01-29] MEDS: levothyroxine 25 mcg Tablet PO (10:34)
[2025-01-29] MEDS: docusate sodium 100 mg Capsule PO ×2 (10:35→17:53)
[2025-01-29] MEDS: HYDROcodone-acetaminophen 5-325 mg Tablet 1 TAB PO ×2 (10:36→16:09)
[2025-01-29] MEDS: insulin lispro 100 unit/1 mL SUBCUT ×3 (10:38→17:54)
[2025-01-29] MEDS: vancomycin 2,000 MG/400 ML PIGGYBACK 200 MG IV (10:39)
[2025-01-29] MEDS: bumetanide 0.25 mg/mL SDV 4 mL 1 MG IVP ×2 (10:39→20:05)
[2025-01-29 11:59] LABS: Glucose Point of Care 172 mg/dL (70-110)
[2025-01-29 17:23] LABS: Glucose Point of Care 141 mg/dL (70-110)
--- NOTE | 2025-01-29 17:26 | P.PN_ITS ---
Subjective 2 Subjective: Patient was seen this morning, currently alert oriented x 3, following all commands, denies any fevers, no chills, has a cough, does report shortness of breath, does report lower back pain, he does tell me [facility], he has a distal radial fracture for which he is in a right arm brace Vitals/I&O/Wt Last Vital Signs Temp 97.1 F L 01/29/25 14:00 Pulse 84 01/29/25 15:57 Resp 22 H 01/29/25 15:32 BP 106/55 01/29/25 14:00 Pulse Ox 93 01/29/25 15:32 O2 Del Method Nasal Cannula 01/29/25 15:32 O2 Flow Rate 4 01/29/25 15:32 FiO2 40 01/29/25 03:12 01/29/25 01/29/25 01/29/25 06:59 14:59 22:59 Intake Total 480 / 2430 1400 / 1400 Output Total 1050 / 1650 Balance -570 / 780 1400 / 1400 Weight last 48 hrs Weight 142 kg Weight 142 kg Weight 142 kg Weight 142.7 kg Physical Exam 2 Const: COMMON NORMALS: no acute distress and patient oriented x3 Resp: COMMON NORMALS: normal respiratory effort, No retractions, No use of accessory muscles and clear to auscultation bilaterally AUSCULTATION: clear to auscultation bilaterally Cardio: COMMON NORMALS: regular rate, regular rhythm, S1 normal heart sound present and S2 normal heart sound present RATE: regular rate RHYTHM: r egular rhythm HEART SOUNDS: S1 normal heart sound present and S2 normal heart sound present GI: COMMON NORMALS: Normal to inspection, nondistended, normoactive bowel sounds present and non-tender Extremity: NARRATIVE EXTREMITY EXAM: 1+ edema Neuro: COMMON NORMALS: patient oriented x3, CN's II-XII intact bilaterally and moves all extremities Psych: COMMON NORMALS: mental status grossly normal Urinary Catheter Management: Robertson: Cath Placed During This Visit: yes Reason for Continuing Indwelling Catheter: Accurate Measurement of Urinary Output in Critically Ill Patients Urinary Catheter Date of Insertion: 01/28/25 Urinary Catheter Time of Insertion: 01:19 Data 01/29/25 03:29 01/29/25 03:29 Micro: Microbiology 01/28/25 16:43 Gram Stain - Final Sputum - Expectorated Sputum Sputum Culture - Preliminary 01/28/25 00:00 Blood Culture - Preliminary Blood NEGATIVE TO DATE 01/28/25 00:00 Blood Culture - Preliminary Blood NEGATIVE TO DATE A&P Assessment and plan (1) Leukocytosis: (2) CHF exacerbation: (3) Acute hypoxic respiratory failure: (4) Hypercapnic respiratory failure: (5) Pneumonia: (6) Acute encephalopathy: (7) Acute anemia: (8) Sepsis: Plan Acute hypoxic respiratory failure - Multifactorial - From pneumonia - From COPD exacerbation - From CHF exacerbation Plan - Moved to medical floors - Currently with mild to moderate respiratory distress continue BiPAP - Continue cefepime - Add vancomycin - Blood cultures - Sputum cultures - soluMedrol 40 mg IV every 12 hours - Continue DuoNeb - Bumex 1 mg IV 12 hours - Monitor respiratory status closely - Full code - Lovenox for DVT prophylaxis Patient is on Eliquis as outpatient, switch to Lovenox, currently on hold given acute anemia down to 8, with evidence of iron deficiency Acute encephalopathy - Likely secondary to sepsis, pneumonia - Continue to monitor mentation closely - Neurochecks - Aspiration precautions Sepsis, secondary to pneumonia NSTEMI, serial EKGs, serial troponins, telemetry monitoring, aspirin, therapeutic Lovenox Type 2 diabetes mellitus, low-dose sliding scale Acute anemia, has evidence of iron deficiency - Iron studies show evidence of early early iron deficiency anemia - Lovenox currently on hold -Monitor hemoglobin closely - Protonix, Carafate Full code Lovenox for DVT prophylaxis currently on hold, SCDs PDMP PDMP Reviewed: Not Reviewed Attestations 2 Medical Necessity Statement*: Patient requires hospitalization for acute hypoxic respiratory failure, sepsis, acute encephalopathy, acute anemia Diagnoses Leukocytosis D72.829 CHF exacerbation I50.9 Acute hypoxic respiratory failure J96.01 Hypercapnic respiratory failure J96.92 Pneumonia J18.9 Acute encephalopathy G93.40 Acute anemia D64.9 Sepsis A41.9
[2025-01-29 19:00] LABS: Hematocrit 29.3 % (37-53)
[2025-01-29] MEDS: sennosides 8.6 mg Tablet 17.2 MG PO (20:05)
[2025-01-29 21:05] LABS: Glucose Point of Care 179 mg/dL (70-110)
[2025-01-30] VITALS (41 sets, daily range): BP systolic 114–160; BP diastolic 56–84; PULSE 63–84; RESP 14–28; TEMP 36.2–36.7; O2SAT 92–100
[2025-01-30] MEDS: pantoprazole 40 mg SDV IVP ×2 (03:16→15:21)
[2025-01-30] MEDS: cefepime 1,000 mg SDV 1000 MG IVP ×2 (03:18→15:20)
[2025-01-30] MEDS: sucralfate 1 gm Tablet PO ×2 (03:19→15:21)
[2025-01-30] MEDS: ipratropium-albuterol 3 mL Neb INHALATION ×6 (03:51→23:30)
[2025-01-30 05:00] LABS: Basophils % 0.1 %; Lymphocytes # 1.1 10^3/uL (0.8-4.8); Mean Corpuscular HGB Conc 26.8 g/dL (30-55); Mean Corpuscular Hemoglobin 22.7 pg (27-33); Mean Corpuscular Volume 84.7 fl (82-101); Mean Platelet Volume 9.8 fL (7.4-10.4); Monocytes # 0.8 10^3/uL (0.2-0.9); Monocytes % 4.2 %; Neutrophils # 16.06 10^3/uL (1.8-7.7); Neutrophils % 89.1 %; Nucleated Red Blood Cells % 0.1 %; Platelet Count 503 10^3/cmm (157-399); Red Blood Count 3.66 10^6/uL (3.85-5.65); Red Cell Distribution Width 17.3 % (12.1-15.1); White Blood Count 18.03 10^3/uL (3.29-11.43)
[2025-01-30] MEDS: methylPREDNISolone sod succ 40 mg/mL INJ IVP (05:04)
[2025-01-30 05:22] LABS: Anion Gap 13.4 (5-19); Blood Urea Nitrogen 49 mg/dL (8-23); Calcium 8.4 mg/dL (8.5-10.5); Carbon Dioxide 34 mmol/L (22-29); Chloride 97 mmol/L (98-107); Creatinine Clr Calc Pharmacy 88.9152; Glucose 165 mg/dL (65-115); Osmolality Calculated 307 mOsm/kg (285-295); Potassium 4.4 mmol/L (3.5-5.1); Sodium 140 mmol/L (136-145)
[2025-01-30 08:08] LABS: Glucose Point of Care 142 mg/dL (70-110)
[2025-01-30] MEDS: bumetanide 0.25 mg/mL SDV 4 mL 1 MG IVP ×2 (08:55→20:29)
[2025-01-30] MEDS: insulin lispro 100 unit/1 mL SUBCUT ×2 (08:55→11:58)
[2025-01-30] MEDS: gabapentin 400 mg Capsule PO ×2 (08:56→17:42)
[2025-01-30] MEDS: levothyroxine 25 mcg Tablet PO (08:56)
[2025-01-30] MEDS: spironolactone 25 mg Tablet 50 MG PO (08:56)
[2025-01-30] MEDS: docusate sodium 100 mg Capsule PO ×2 (08:56→17:42)
[2025-01-30 11:52] LABS: Glucose Point of Care 191 mg/dL (70-110)
[2025-01-30] MEDS: acetaminophen 325 mg Tablet 650 MG PO ×2 (12:44→17:42)
[2025-01-30] MEDS: HYDROcodone-acetaminophen 5-325 mg Tablet 1 TAB PO (15:21)
--- NOTE | 2025-01-30 15:35 | P.PN_ITS ---
Subjective 2 Subjective: Patient was seen this morning, currently alert oriented x 3, following all commands, does report shortness of breath, no chest pain, no palpitations, Vitals/I&O/Wt Last Vital Signs Temp 97.2 F L 01/30/25 05:10 Pulse 73 01/30/25 15:20 Resp 20 H 01/30/25 15:20 BP 137/75 01/30/25 12:30 Pulse Ox 95 01/30/25 15:20 O2 Del Method Nasal Cannula 01/30/25 15:20 O2 Flow Rate 5 01/30/25 15:20 FiO2 40 01/30/25 07:59 01/30/25 01/30/25 01/30/25 06:59 14:59 22:59 Output Total 1450 / 2950 Balance -1450 / -550 Weight last 48 hrs Weight 142.5 kg Weight 142 kg Physical Exam 2 Const: COMMON NORMALS: no acute distress and patient oriented x3 Resp: COMMON NORMALS: normal respiratory effort, No retractions and No use of accessory muscles AUSCULTATION: crackles and wheezes Cardio: COMMON NORMALS: regular rate, regular rhythm, S1 normal heart sound present and S2 normal heart sound present RATE: regular rate RHYTHM: r egular rhythm HEART SOUNDS: S1 normal heart sound present and S2 normal heart sound present GI: COMMON NORMALS: Normal to inspection, nondistended, normoactive bowel sounds present and non-tender Neuro: COMMON NORMALS: patient oriented x3 Psych: COMMON NORMALS: mental status grossly normal Urinary Catheter Management: Robertson: Cath Placed During This Visit: yes Reason for Continuing Indwelling Catheter: Accurate Measurement of Urinary Output in Critically Ill Patients Urinary Catheter Date of Insertion: 01/28/25 Urinary Catheter Time of Insertion: 01:19 Data 01/30/25 04:12 01/30/25 04:12 Micro: Microbiology 01/28/25 16:43 Gram Stain - Final Sputum - Expectorated Sputum Sputum Culture - Preliminary A&P Assessment and plan (1) Leukocytosis: (2) CHF exacerbation: (3) Acute hypoxic respiratory failure: (4) Hypercapnic respiratory failure: (5) Pneumonia: (6) Acute encephalopathy: (7) Acute anemia: (8) Sepsis: Plan Acute hypoxic respiratory failure - Multifactorial - From pneumonia - From COPD exacerbation - From CHF exacerbation Plan - Moved to medical floors - Currently with mild to moderate respiratory distress continue BiPAP - Continue cefepime - Add vancomycin - Blood cultures - Sputum cultures - soluMedrol 40 mg IV every 12 hours, de-escalated to prednisone 40 mg daily - Continue DuoNeb - Bumex 1 mg IV 12 hours, will de-escalate to Bumex tomorrow morning - Monitor respiratory status closely - Full code - Lovenox for DVT prophylaxis Patient is on Eliquis as outpatient, switch to Lovenox, currently on hold given acute anemia down to 8, with evidence of iron deficiency Acute encephalopathy, resolved - Likely secondary to sepsis, pneumonia - Continue to monitor mentation closely - Neurochecks - Aspiration precautions Sepsis, secondary to pneumonia NSTEMI, serial EKGs, serial troponins, telemetry monitoring, aspirin, therapeutic Lovenox Type 2 diabetes mellitus, low-dose sliding scale Acute anemia, has evidence of iron deficiency, hemoglobin is low 7.9 - Iron studies show evidence of early early iron deficiency anemia - Lovenox currently on hold -Monitor hemoglobin closely - Protonix, Carafate Full code Lovenox for DVT prophylaxis currently on hold, SCDs Plan for today monitor hemoglobin, continue IV antibiotics, de-escalate steroids, IV diuresis PDMP PDMP Reviewed: Not Reviewed Attestations 2 Medical Necessity Statement*: Patient requires hospitalization for acute hypoxic respiratory failure. Secondary to COPD, CHF, pneumonia Diagnoses Leukocytosis D72.829 CHF exacerbation I50.9 Acute hypoxic respiratory failure J96.01 Hypercapnic respiratory failure J96.92 Pneumonia J18.9 Acute encephalopathy G93.40 Acute anemia D64.9 Sepsis A41.9
[2025-01-30 16:47] LABS: Glucose Point of Care 133 mg/dL (70-110)
[2025-01-30] MEDS: sennosides 8.6 mg Tablet 17.2 MG PO (20:29)
[2025-01-30 20:31] LABS: Glucose Point of Care 120 mg/dL (70-110)
[2025-01-31] MEDS: sucralfate 1 gm Tablet PO (03:13)
[2025-01-31] MEDS: cefepime 1,000 mg SDV 1000 MG IVP (03:13)
[2025-01-31] MEDS: pantoprazole 40 mg SDV IVP (03:13)
[2025-01-31] MEDS: ipratropium-albuterol 3 mL Neb INHALATION ×2 (03:31→08:29)
[2025-01-31 03:33] VITALS: PULSE 77; RESP 18; O2SAT 94
[2025-01-31 04:00] VITALS: BP 129/72; PULSE 71; RESP 19; TEMP 36.3; O2SAT 94
[2025-01-31] MEDS: HYDROcodone-acetaminophen 5-325 mg Tablet 1 TAB PO (04:22)
[2025-01-31 05:19] LABS: Basophils % 0.2 %; Eosinophils # 0.1 10^3/uL (0.0-0.8); Eosinophils % 0.5 %; Hematocrit 30.9 % (37-53); Lymphocytes # 1.3 10^3/uL (0.8-4.8); Lymphocytes % 10.5 %; Mean Corpuscular HGB Conc 27.2 g/dL (30-55); Mean Corpuscular Hemoglobin 22.7 pg (27-33); Mean Corpuscular Volume 83.5 fl (82-101); Mean Platelet Volume 8.9 fL (7.4-10.4); Monocytes # 1.5 10^3/uL (0.2-0.9); Monocytes % 11.5 %; Neutrophils # 9.79 10^3/uL (1.8-7.7); Neutrophils % 76.4 %; Nucleated Red Blood Cells % 0.2 %; Platelet Count 440 10^3/cmm (157-399); Red Cell Distribution Width 17.2 % (12.1-15.1); White Blood Count 12.79 10^3/uL (3.29-11.43)
[2025-01-31 05:47] LABS: Anion Gap 11.6 (5-19); Blood Urea Nitrogen 43 mg/dL (8-23); Calcium 8.7 mg/dL (8.5-10.5); Carbon Dioxide 36 mmol/L (22-29); Chloride 96 mmol/L (98-107); Creatinine Clr Calc Pharmacy 97.0428; Glucose 102 mg/dL (65-115); Osmolality Calculated 301 mOsm/kg (285-295); Potassium 3.6 mmol/L (3.5-5.1); Sodium 140 mmol/L (136-145)
[2025-01-31 06:34] LABS: Glucose Point of Care 108 mg/dL (70-110)
[2025-01-31 07:49] VITALS: BP 103/60; PULSE 67; RESP 16; TEMP 37; O2SAT 98
[2025-01-31 08:30] VITALS: PULSE 77; RESP 16; O2SAT 95
[2025-01-31] MEDS: potassium chloride ER 20 mEq Tablet 40 MEQ PO (09:14)
[2025-01-31] MEDS: spironolactone 25 mg Tablet 50 MG PO (09:15)
[2025-01-31] MEDS: metOLazone 5 MG Tablet PO (09:15)
[2025-01-31] MEDS: levothyroxine 25 mcg Tablet PO (09:15)
[2025-01-31] MEDS: docusate sodium 100 mg Capsule PO (09:15)
[2025-01-31] MEDS: gabapentin 400 mg Capsule PO (09:15)
[2025-01-31] MEDS: predniSONE 20 mg Tablet 40 MG PO (09:15)
[2025-01-31] MEDS: bumetanide 0.25 mg/mL SDV 4 mL 1 MG IVP (09:15)
--- NOTE | 2025-01-31 10:02 | PC.SOCIAL ---
IMM Update pg 2 of IMM Updated and reviewed w/ patient. Copy provided and copy dated initialed and placed in chart.
--- NOTE | 2025-01-31 10:18 | PC.SOCIAL ---
IMM Update pg 2 of IMM updated and reviewed w/ patient. Copy provided. Copy dated, initialed and placed in chart.
--- NOTE | 2025-01-31 10:47 | PC.NURSE ---
Pt discharging to [facility]. They will pick pt up, but it will be a couple hours at minimum.
--- NOTE | 2025-01-31 10:53 | P.DS_ITS ---
Discharge Providers Date of Admission: 01/28/25 03:42 Date of Discharge: January 31, 2025 Attending Provider at Admission: Coco Virk MD Attending Provider at Discharge: Vijay Duncan MD Primary Care Provider: Otilio Huang Diagnoses at Discharge Discharge Diagnosis (1) Leukocytosis: Status: Acute (2) CHF exacerbation: Status: Acute (3) Acute hypoxic respiratory failure: Status: Acute (4) Hypercapnic respiratory failure: Status: Acute (5) Pneumonia: Status: Acute (6) Acute encephalopathy: Status: Acute (7) Acute anemia: Status: Acute (8) Sepsis: Status: Acute Reason for Visit Reason for Visit: sob, wheezing Hospital Course Hospital Course This is a 74-year-old male with a past medical history of chronic respiratory failure, history of DVT, history of COPD, CHF who presents [facility] for shortness of breath Patient was admitted to [facility] for acute hypoxic hypercarbic respiratory failure multifactorial from pneumonia, COPD exacerbation, CHF exacerbation, requiring ICU admission. In the ICU patient required BiPAP therapy, broad-spectrum antibiotic therapy, IV steroids, IV diuresis and cli nically monitored. Patient overall clinically improved, moved to the medical floors, transition to nasal cannula, remains afebrile, blood cultures negative. - Will be discharged on oral steroids - Will be discharged on oral antibiotics - Will be discharged on Bumex - Patient declined BiPAP therapy the evening of 01/30/2025 - Discussed with patient morbidity and mortality associated with acute hypoxic hypercarbic respiratory failure, he voiced understanding, all question answered, as he has declined BiPAP therapy he will have to follow-up with his primary care provider for decision on sleep study For his acute encephalopathy, secondary to sepsis, pneumonia, resolved Sepsis secondary to pneumonia, resolved NSTEMI, no chest pain complaints, medically managed For his acute anemia, 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 Venous ultrasound was negative for DVT. Throughout his hospitalization had a detailed discussion with patient about the risk and benefits of anticoagulant therapy given his history, with complications such as anemia as above, discussed morbidity and mortality of all options available to patient, certainly this is a difficult decision given his history, shared decision making, he voiced understanding, all questions answered, agreed to hold Eliquis therapy for now. The decision if and when to resume anticoagulant therapy will be based on shared decision-making with patient, primary care provider, and results of his EGD as outpatient, continue to monitor hemoglobin as outpatient, recheck hemoglobin next week For patient's acute anemia, on Eliquis therapy, follow-up with general surgery as outpatient for consideration of EGD. He will be discharged with Protonix, Carafate, with instructions to monitor his hemoglobin as outpatient. He does have evidence of a early iron deficiency anemia, follow-up with oncology for consideration of iron infusions. There was concerns for depression during his hospitalization, patient's younger brother recently , he is on fluoxetine, which he should continue. Patient denies any active suicidal ideation, no homicidal ideation, denies auditory/visual/tactile hallucinations. Physical Exam Const: COMMON NORMALS: no acute distress and patient oriented x3 Resp: COMMON NORMALS: normal respiratory effort, No retractions, No use of accessory muscles and clear to auscultation bilaterally AUSCULTATION: clear to auscultation bilaterally Cardio: COMMON NORMALS: regular rate, regular rhythm, S1 normal heart sound present and S2 normal heart sound present RATE: regular rate RHYTHM: regular rhythm HEART SOUNDS: S1 normal heart sound present and S2 normal heart sound present GI: COMMON NORMALS: Normal to inspection, nondistended, normoactive bowel sounds present and non-tender Extremity: COMMON NORMALS: no pedal edema Neuro: COMMON NORMALS: patient oriented x3 Psych: COMMON NORMALS: mental status grossly normal Urinary Catheter Management: Robertson: Cath Placed During This Visit: yes Reason for Continuing Indwelling Catheter: Other Urinary Catheter Date of Insertion: 01/28/25 Urinary Catheter Time of Insertion: 01:19 Discharge Data Studies Completed and Pending Completed Studies During Hospitalization Category Date Time Status XR chest 1V portable [id number] Stat Exams 01/27/25 23:06 Completed XR hip LT 2-3V wo/w pel* [id number] Routine Exams 01/29/25 08:26 Completed XR lumbar spine 2-3V* [id number] Routine Exams 01/29/25 08:26 [place] [id number] Routine Ultrasound 01/28/25 07:59 Completed Pending at discharge Category Date Time Status Blood Culture Stat Lab 01/27/25 23:06 Results Occult Blood Stool [Immunochemical Fecal OCB] Routine Lab 01/28/25 14:58 Uncollected Sputum Culture and Gram Stain Stat Lab 01/28/25 16:43 Results Radiology Impressions Chest X-Ray 01/27/25 23:06 IMPRESSION: 1. Cardiomegaly and pulmonary vascular congestion. 2. Patchy bilateral ground-glass airspace opacities reflecting alveolar edema and/or pneumonic infiltrate. 3. Right middle lobe 25 mm nodule suspected, chest CT advised for further evaluation. Hip/Pelvis X-Ray 01/29/25 08:26 IMPRESSION: Moderate osteoarthritis. No acute abnormality. Lumbar Spine X-Ray 01/29/25 08:26 IMPRESSION: Significant multilevel degenerative spondylosis as above. Compression deformities appear to be chronic. Laboratory Results WBC 12.79 10^3/uL (3.29-11.43) H 01/31/25 05:07 RBC 3.70 10^6/uL (3.85-5.65) L 01/31/25 05:07 Hgb 8.40 g/dL (11.27-16.99) L 01/31/25 05:07 Hct 30.9 % (37-53) L 01/31/25 05:07 MCV 83.5 fl (82-101) 01/31/25 05:07 MCH 22.7 pg (27-33) L 01/31/25 05:07 MCHC 27.2 g/dL (30-55) L 01/31/25 05:07 RDW 17.2 % (12.1-15.1) H 01/31/25 05:07 Plt Count 440 10^3/cmm (157-399) H 01/31/25 05:07 MPV 8.9 fL (7.4-10.4) 01/31/25 05:07 Neut % (Auto) 76.4 % 01/31/25 05:07 Lymph % (Auto) 10.5 % 01/31/25 05:07 [place] % (Auto) 11.5 % 01/31/25 05:07 Eos % (Auto) 0.5 % 01/31/25 05:07 Baso % (Auto) 0.2 % 01/31/25 05:07 Neut # (Auto) 9.79 10^3/uL (1.8-7.7) H 01/31/25 05:07 Lymph # (Auto) 1.3 10^3/uL (0.8-4.8) 01/31/25 05:07 [place] # (Auto) 1.5 10^3/uL (0.2-0.9) H 01/31/25 05:07 Eos # (Auto) 0.1 10^3/uL (0.0-0.8) 01/31/25 05:07 Baso # (Auto) 0.0 10^3/uL (0.0-0.1) 01/31/25 05:07 Nucleated RBC % (auto) 0.2 % 01/31/25 05:07 Nucleated RBCs # 0.0 /100WBC 01/31/25 05:07 D-Dimer 0.36 ug/mLFEU (0-0.59) 01/28/25 06:14 Specimen Type Arterial 01/29/25 04:20 Sample Site Radial, left 01/29/25 04:20 ABG pH 7.41 (7.35-7.45) 01/29/25 04:20 ABG pCO2 54.9 mmHg (35-45) H 01/29/25 04:20 ABG pO2 66.3 mmHg (80.0-100.0) L 01/29/25 04:20 ABG PO2/FiO2 Ratio 165 01/29/25 04:20 ABG HCO3 34.5 mmol/L (22-26) H 01/29/25 04:20 ABG O2 Saturation 90.2 01/28/25 05:28 ABG Base Excess 8.6 mmol/L (-2.0-2.0) H 01/29/25 04:20 Ivan Test Pos 01/29/25 04:20 A-a O2 Gradient 19.3 mmHg (5-10) H 01/28/25 05:28 Hematocrit 28.2 % (42-52) L 01/29/25 04:20 Hgb O2 Saturation 88.1 % (95-100) L 01/28/25 05:28 Carboxyhemoglobin 1.7 %THgb (0.4-20.1) 01/28/25 05:28 Methemoglobin 0.6 % (0.4-1.5) 01/28/25 05:28 Total Hemoglobin 9.3 g/dL (14-18) L 01/28/25 05:28 Sodium 144.0 mmol/L (131-143) H 01/28/25 05:28 Potassium 4.2 mmol/L (3.5-5.0) 01/28/25 05:28 Glucose 206.0 mg/dL (70-115) H 01/28/25 05:28 Ionized Calcium 1.2 mmol/L (1.1-1.4) 01/28/25 05:28 O2 Delivery Device Bipap 01/29/25 04:20 O2 Liters/Min 8.0 % 01/27/25 23:00 FiO2 40.0 % 01/29/25 04:20 Res Habilitation Assistant ID Jdb 01/29/25 04:20 Sodium 140 mmol/L (136-145) 01/31/25 05:07 Potassium 3.6 mmol/L (3.5-5.1) 01/31/25 05:07 Chloride 96 mmol/L (98-107) L 01/31/25 05:07 Carbon Dioxide 36 mmol/L (22-29) H 01/31/25 05:07 Anion Gap 11.6 (5-19) 01/31/25 05:07 BUN 43 mg/dL (8-23) H 01/31/25 05:07 Creatinine 1.0 mg/dL (0.7-1.2) 01/31/25 05:07 GFR Calculation Not Reportable 01/31/25 05:07 Glucose 102 mg/dL (65-115) 01/31/25 05:07 POC Glucose 108 mg/dL (70-110) 01/31/25 06:15 Estimat Average Glucose 100 01/28/25 06:14 Hemoglobin A1c 5.1 % (4.0-6.0) 01/28/25 06:14 Calculated Osmolality 301 mOsm/kg (285-295) H 01/31/25 05:07 Lactic Acid 1.0 mmol/L (0.5-2.2) 01/28/25 00:00 Calcium 8.7 mg/dL (8.5-10.5) 01/31/25 05:07 Phosphorus 2.9 mg/dL (2.5-4.5) 01/28/25 06:14 Magnesium 2.1 mg/dL (1.7-2.3) 01/28/25 06:14 Iron 14 ug/dL (59-158) L 01/28/25 06:14 TIBC 353 mcg/dl 01/28/25 06:14 % Saturation 3.9 % (20-50) L 01/28/25 06:14 Unsat Iron Binding 339 ug/dL (112-347) 01/28/25 06:14 Ferritin 70 ng/mL (30-400) 01/28/25 06:14 Total Bilirubin 0.4 mg/dL (0.15-1.2) 01/28/25 06:14 AST 9 U/L (0-40) 01/28/25 06:14 ALT 7 U/L (0-41) 01/28/25 06:14 Alkaline Phosphatase 144 U/L (40-130) H 01/28/25 06:14 Troponin T Baseline 38 ng/L (0-15) H 01/28/25 00:00 Troponin T 120 Minute 35.82 ng/L (0-15) H 01/28/25 01:42 Delta Troponin T -2.18 ABS# (0-10) L 01/28/25 01:42 Troponin T Hi Sens 6Hr 30.49 ng/L (0-15) H 01/28/25 06:14 Troponin T Hi Sens 6Hr Delta -7.51 ng/L (0-12) L 01/28/25 06:14 C-Reactive Protein 204.4 mg/L (0.0-4.9) H 01/29/25 03:29 NT-Pro-B Natriuret Pep 1042 pg/mL (0-125) H 01/29/25 03:29 Total Protein 9.2 g/dL (6.6-8.7) H 01/28/25 06:14 Albumin 3.4 g/dL (3.5-5.2) L 01/28/25 06:14 Globulin 5.8 g/dL (1.3-4.6) H 01/28/25 06:14 Procalcitonin 0.27 ng/mL (0-0.5) 01/29/25 03:29 Urine Color Yellow (Yellow) 01/28/25 02:00 Urine Appearance Clear (CLEAR) 01/28/25 02:00 Urine pH 5.5 (5-7) 01/28/25 02:00 Ur Specific [place] 1.020 (1.005-1.030) 01/28/25 02:00 Urine Protein 2+ (Negative) A 01/28/25 02:00 Urine Glucose (UA) Negative (Normal) 01/28/25 02:00 Urine Ketones Trace (Negative) 01/28/25 02:00 Urine Blood Trace (Negative) A 01/28/25 02:00 Urine Nitrate Negative (Negative) 01/28/25 02:00 Urine Bilirubin Negative (Negative) 01/28/25 02:00 Urine Urobilinogen 1.0 mg/dL (Negative) 01/28/25 02:00 Ur Leukocyte Esterase Negative (Negative) 01/28/25 02:00 Urine RBC 0-2 /hpf (0-2) 01/28/25 02:00 Urine WBC 0-5 /hpf (0-5) 01/28/25 02:00 Ur Squamous Epith Cells 0-5 /hpf (0-5) 01/28/25 02:00 Amorphous Sediment Not Reportable 01/28/25 02:00 Urine Bacteria None seen /hpf (NONE) 01/28/25 02:00 Hyaline Casts 12.38 /lpf 01/28/25 02:00 Nasal MRSA (PCR) Not detected (Negative) 01/28/25 11:14 Vancomycin Trough 32.0 ug/mL (10-15) H* 01/29/25 21:05 Influenza A (PCR) Negative (Negative) 01/27/25 23:10 Influenza Type B (PCR) Negative (Negative) 01/27/25 23:10 RSV (PCR) Negative (Negative) 01/27/25 23:10 SARS-CoV-2 (PCR) Negative (Negative) 01/27/25 23:10 Vitals Last Vital Signs Temp 98.6 F 01/31/25 07:49 Pulse 77 01/31/25 08:30 Resp 16 01/31/25 08:30 BP 103/60 01/31/25 07:49 Pulse Ox 95 01/31/25 08:30 O2 Del Method Nasal Cannula 01/31/25 08:30 O2 Flow Rate 5 01/31/25 08:30 FiO2 40 01/30/25 07:59 Discharge Plan Discharge Patient Disposition: Xfer SNF Condition: Serious Prescriptions: New sucralfate 1 gram Tablet 1 g PO Q12H 30 Days Qty: 60 0RF prednisone 20 mg Tablet 40 mg PO DAILY 5 Days Qty: 10 0RF pantoprazole [Protonix] 40 mg tablet,delayed release (DR/EC) 40 mg PO BID 30 Days Qty: 60 0RF cefdinir 300 mg capsule 300 mg PO BID 5 Days Qty: 10 0RF potassium chloride [Klor-Con M20] 20 mEq tablet,ER particles/crystals 10 meq PO BID 30 Days Qty: 30 0RF ferrous sulfate 325 mg (65 mg iron) tablet 325 mg PO BID 30 Days Qty: 60 0RF Continued acetaminophen [Tylenol] 325 mg Tablet 650 mg PO Q4-5H PRN (Reason: Pain) levothyroxine 25 mcg Tablet 25 mcg PO DAILY melatonin 1 mg Tablet 1 mg PO BEDTIME melatonin 5 mg Tablet 5 mg PO BEDTIME multivitamin Tablet 1 tab PO QAM fluoxetine 40 mg capsule 40 mg PO DAILY sennosides [senna] 8.6 mg Tablet 8.6 mg PO DAILY ipratropium-albuterol 0.5 mg-3 mg(2.5 mg base)/3 mL solution for nebulization 3 ml INHALATION BID magnesium hydroxide [Milk of Magnesia] 400 mg/5 mL Suspension 30 ml PO DAILY PRN (Reason: Constipation) bisacodyl 10 mg Suppository 10 mg OH .Q72H PRN (Reason: Constipation) docusate sodium [Colace] 100 mg Capsule 100 mg PO BID ergocalciferol (vitamin D2) 1,250 mcg (50,000 unit) capsule 50,000 mcg PO Q7D Rx Instructions: polyethylene glycol 3350 [Miralax] 17 gram/dose Powder 17 g PO DAILY PRN (Reason: bowel management) albuterol sulfate 90 mcg/actuation HFA aerosol inhaler 2 puff INHALATION Q4H PRN (Reason: Shortness Of Breath Or Wheezing) alum-mag hydroxide-simeth [Mylanta Maximum Strength] 400-400-40 mg/5 mL Bess spension 30 ml PO Q2H PRN (Reason: indig[place]/heartburn/gas) spironolactone 50 mg tablet 50 mg PO DAILY omeprazole 20 mg Tablet,Delayed Release (Dr/Ec) 20 mg PO DAILY Trelegy Ellipta 200-62.5-25 mcg blister with device 1 inh INHALATION DAILY bumetanide 1 mg tablet 1 mg PO BIDAC Qty: 60 0RF gabapentin 400 mg capsule 400 mg PO BID loperamide [Imodium A-D] 2 mg Tablet 2 mg PO Q6H PRN (Reason: Diarrhea) oxycodone-acetaminophen 10-325 mg tablet 1 tab PO Q6H PRN (Reason: Pain) protein supplement Liquid See Rx Instructions .ROUTE .COMPLEX Rx Instructions: Give 30 ml by mouth once daily for wound healing. Ozempic 1 mg/dose (4 mg/3 mL) pen injector 1 mg SUBCUT Q7D Rx Instructions: Held Eliquis 5 mg tablet 5 mg PO BID Hold Instructions: Resume on 02/24/25. hold until you see surgery No Action (DME) Right cockup splint See Rx Instructions .Route .MEDSUPPLY Qty: 1 0RF Rx Instructions: As directed Discharge Orders: Discharge Order (Routine); Ordered 01/31/25 Ordered By: Vijay Duncan Referrals: [facility] [Outside] Brigido Faye MD [Physician, General Surgery] - 02/17/25 9:00 am Referral Note: egd for anemia Dennis Ling MD [Hospitalist, Oncology] - 1 month Referral Note: fe Tequila Diaz MD [Physician, Cardiology] - 1 week Referral Note: chf We have notified your physician's clinic of the need for a follow-up appointment to be scheduled. If you have not heard from them within the next 2 business days, please call them directly. Fabian Camarillo DO [Referring] Discharge Diet: Cardiac Discharge Activity: Resume usual activity Patient Instructions: Opioid Safety Activity Restrictions/Additional Instructions: - Please limit fluid intake to 1000 cc a day - If any chest pain or palpitations go to emergency room - Please hold Eliquis due to anemia - Check hemoglobin on Monday - If you develop bloody or black stools go to emergency room - Monitor shortness of breath if so, to the hospital - Follow-up with general surgery in 2 to 4 weeks for EGD and colonoscopy Discharge Attestations Time Spent in Discharge Care*: greater than 30 min Quality Metrics Clinical Quality Measures [ No reported AMI, CVA or VTE this stay] Coding Level of Care Code 57131 Total time (in minutes) for Discharge: 45 Diagnoses Leukocytosis D72.829 CHF exacerbation I50.9 Acute hypoxic respiratory failure J96.01 Hypercapnic respiratory failure J96.92 Pneumonia J18.9 Acute encephalopathy G93.40 Acute anemia D64.9 Sepsis A41.9
[2025-01-31 11:43] LABS: Glucose Point of Care 123 mg/dL (70-110)
[2025-01-31 12:00] VITALS: BP 97/61; PULSE 75; RESP 16; TEMP 36.4; O2SAT 94
== END 2025-01-31 13:57 | disposition skilled nursing facility (03) | DRG 871 ==
LOC: ER 01-28 03:41 → ICU 01-28 04:05 → MEDSURG 01-30 12:17
PROVIDERS: Admitting Provider Internal Medicine; Emergency Provider Student in an Organized Health Care Education/Training Program; PCP Student in an Organized Health Care Education/Training Program; Visit Provider Family Medicine
DX: A41.9 Sepsis, unspecified organism (principal); I21.4 Non-ST elevation (NSTEMI) myocardial infarction; J18.9 Pneumonia, unspecified organism; J96.01 Acute respiratory failure with hypoxia; J96.02 Acute respiratory failure with hypercapnia; G93.40 Encephalopathy, unspecified; Z66 Do not resuscitate; F32.A Depression, unspecified; D50.9 Iron deficiency anemia, unspecified; I50.9 Heart failure, unspecified; E11.9 Type 2 diabetes mellitus without complications; Z63.4 Disappearance and death of family member; Z79.01 Long term (current) use of anticoagulants; Z79.899 Other long term (current) drug therapy; Z79.890 Hormone replacement therapy; Z91.018 Allergy to other foods; Z87.891 Personal history of nicotine dependence; Z79.85 Long-term (current) use of injectable non-insulin antidiabetic drugs
CPT/HCPCS: 36415; 36416; 36600; 51702; 71045; 72100; 73502; 80048; 80051; 80053; 80202; 81001; 82330; 82728; 82803; 82805; 82962; 83036; 83540; 83550; 83605; 83735; 83880; 84100; 84145; 84484; 85014; 85018; 85025; 85378; 86140; 87040; 87070; 87077; 87205; 87637; 93005; 93970; 94640; 94660; 96372; 96374; 96375; 96376; 97110; 97161; 97166; 97530; 97535; 99291; J0360; J0692; J1644; J1650; J1815; J1938; J2470; J2919; J3370; J3372; J3490; J7512; J9999

== ENCOUNTER 2025-02-10 19:56 | Inpatient (IN) | payer MEDICARE, MEDICAID, SELFPAY ==
[2025-02-10] VITALS (11 sets, daily range): BP systolic 99–126; BP diastolic 63–89; PULSE 84–170; RESP 16–39; TEMP 37.4; O2SAT 92–100; BMI 42.5
--- NOTE | 2025-02-10 19:58 | XRR_ITS ---
PROCEDURE INFORMATION: Exam: XR Chest Exam date and time: 02/10/2025 8:25 PM Age: 74 years old Clinical indication: Shortness of breath; PT would not lay on his back all the way got best image possible TECHNIQUE: Imaging protocol: Radiologic exam of the chest. Views: 1 view. COMPARISON: CR (CHEST, ) 01/27/2025 11:11 PM FINDINGS: Limitations: Patient rotation. Lungs: Mild nonspecific interstitial prominence, likely chronic. Stable left basilar atelectasis and/or scarring. No consolidation. Pleural spaces: No pleural effusion or pneumothorax. Heart/Mediastinum: Heart size is poorly evaluated. The cardiomediastinal silhouette appears grossly stable. Bones/joints: No acute osseous abnormalities are seen. XR/XR chest 1V portable [id number] IMPRESSION: No definitive acute cardiopulmonary disease.
--- NOTE | 2025-02-10 20:00 | W.ED.SOB ---
HPI - SOB/Dyspnea General: Chief Complaint: Shortness of Breath/Dyspnea Stated Complaint: SOB Time Seen by Provider: 02/10/25 19:56 History of Present Illness: HPI Narrative: 74-year-old man with a history of congestive heart failure, morbid obesity, DVT, chronic anticoagulation on Eliquis chronic hypoxemic respiratory failure on oxygen at all times, COPD who presents to the emergency room with shortness of breath from half-way by ambulance. Apparently he was fine around 3 PM but at around 7 PM he was found to be breathing very hard. He received Solu-Medrol was on a nonrebreather on the ambulance. On presentation he has considerable increased work of breathing. Related Data Home Medications ?Medication ?Instructions ?Recorded ?Confirmed albuterol sulfate 90 mcg/actuation 2 puff inhalation Q4H PRN 11/02/24 01/28/25 aerosol inhaler Shortness Of Breath Or Wheezing aluminum-mag hydroxide-simethicone 30 ml PO Q2H PRN 11/02/24 01/28/25 400 mg-400 mg-40 mg/5 mL oral susp indigeston/heartburn/gas (Mylanta Maximum Strength) apixaban 5 mg tablet (Eliquis) 5 mg PO BID 11/02/24 01/28/25 Held on 01/31/25. Instructions: Resume on 02/24/25. hold until you see surgery bisacodyl 10 mg rectal suppository 10 mg UT .Q72H PRN Constipation 11/02/24 01/28/25 docusate sodium 100 mg capsule 100 mg PO BID 11/02/24 01/28/25 (Colace) ergocalciferol (vitamin D2) 1,250 50,000 mcg PO Q7D 11/02/24 01/28/25 mcg (50,000 unit) capsule fluoxetine 40 mg capsule 40 mg PO DAILY 11/02/24 01/28/25 fluticasone fur. 200 mcg-umeclid 1 inh inhalation DAILY 11/02/24 01/28/25 62.5 mcg-vilant 25 mcg inhalat.powder (Trelegy Ellipta) ipratropium 0.5 mg-albuterol 3 mg 3 ml inhalation BID 11/02/24 01/28/25 (2.5 mg base)/3 mL nebulization soln magnesium hydroxide 400 mg/5 mL 30 ml PO DAILY PRN Constipation 11/02/24 01/28/25 oral suspension (Milk of Magnesia) multivitamin 1 tab PO QAM 11/02/24 01/28/25 omeprazole 20 mg tablet,delayed 20 mg PO DAILY 11/02/24 01/28/25 release polyethylene glycol 3350 17 17 g PO DAILY PRN bowel management 11/02/24 01/28/25 gram/dose oral powder (Miralax) sennosides 8.6 mg tablet (senna) 8.6 mg PO DAILY 11/02/24 01/28/25 spironolactone 50 mg tablet 50 mg PO DAILY 11/02/24 01/28/25 acetaminophen 325 mg tablet 650 mg PO Q4-5H PRN Pain 12/06/24 01/28/25 (Tylenol) levothyroxine 25 mcg tablet 25 mcg PO DAILY 12/06/24 01/28/25 melatonin 1 mg tablet 1 mg PO BEDTIME 12/06/24 01/28/25 melatonin 5 mg tablet 5 mg PO BEDTIME 12/06/24 01/28/25 gabapentin 400 mg capsule 400 mg PO BID neuropathy 01/28/25 01/28/25 loperamide 2 mg tablet (Imodium 2 mg PO Q6H PRN Diarrhea 01/28/25 01/28/25 A-D) oxycodone-acetaminophen 10 mg-325 1 tab PO Q6H PRN Pain 01/28/25 01/28/25 mg tablet protein supplement See Rx Instructions .Route .COMPLEX 01/28/25 01/28/25 semaglutide 1 mg/dose (4 mg/3 mL) 1 mg SUBCUT Q7D 01/28/25 01/28/25 subcutaneous pen injector (Ozempic) Previous Rx's ?Medication ?Instructions ?Recorded bumetanide 1 mg tablet 1 mg PO BIDAC #60 tabs 11/06/24 Right cockup splint #1 ea 11/28/24 ferrous sulfate 325 mg (65 mg 325 mg PO BID 30 days #60 tabs 01/31/25 iron) tablet pantoprazole 40 mg tablet,delayed 40 mg PO BID 30 days #60 tabs 01/31/25 release (Protonix) potassium chloride 20 mEq 10 meq (1/2 x 20 mEq) PO BID 30 01/31/25 tablet,extended days #30 tabs release(part/cryst) (Klor-Con M) sucralfate 1 gram tablet 1 g PO Q12H 30 days #60 tabs 01/31/25 Allergies Allergy/AdvReac Type Severity Reaction Status Date / Time broccoli Allergy ADR-Vomitin Verified 02/10/25 20:12 g Review of Systems Narrative: Constitutional symptoms: Negative except as documented in HPI. Skin symptoms: Negative except as documented in HPI. Eye symptoms: Negative except as documented in HPI. ENMT symptoms: Negative except as documented in HPI. Respiratory symptoms: Negative except as documented in HPI. Cardiovascular symptoms: Negative except as documented in HPI. Gastrointestinal symptoms: Negative except as documented in HPI. Genitourinary symptoms: Negative except as documented in HPI. Musculoskeletal symptoms: Negative except as documented in HPI. Neurologic symptoms: Negative except as documented in HPI. Psychiatric symptoms: Negative except as documented in HPI. Endocrine symptoms: Negative except as documented in HPI. PFSH ED PFSH: Medical History Open wound of right lower leg Open wound of left lower leg Pressure ulcer of right buttock, stage 3 History of deep vein thrombosis Congestive heart failure Social History Smoking and tobacco/nicotine status: former use of tobacco/nicotine Physical Exam Narrative: EXAM NARRATIVE: General: Alert, moderate distress. Skin: Warm, dry. Head: Normocephalic, atraumatic. Neck: Supple, trachea midline. Eye: Extraocular movements are intact. Ears, nose, mouth and throat: Tacky oral mucosa Cardiovascular: Tachycardic, irregular, Normal peripheral perfusion. Respiratory: coarse, scattered wheeze, moderate increased wob. tachypnea Gastrointestinal: Soft, Nontender, Non distended, Musculoskeletal: Normal ROM, no deformity. Neurological: Alert and oriented, No focal neurological deficit observed. Psychiatric: Cooperative, appropriate mood & affect. Course Vital Signs: Vital signs: Vital Signs Temperature 99.4 F 02/10/25 19:58 Pulse Rate 91 02/10/25 22:10 Respiratory Rate 20 H 02/10/25 22:10 Blood Pressure 99/63 02/10/25 22:10 Pulse Oximetry 98 02/10/25 22:10 Oxygen Delivery Me thod BiPAP 02/10/25 22:10 Fraction of Inspir ed Oxygen 60 02/10/25 20:32 MDM - SOB/Dyspnea Medical Decision Making Differential diagnosis for patient with shortness of breath includes but is not limited to and based on the above HPI, review of systems and physical exam: Pneumonia. Bronchitis. Asthma or COPD with acute exacerbation. Acute coronary syndrome / AR. Pulmonary embolism. Anxiety. Congestive heart failure. Viral infections including influenza and Covid-19. Atrial fibrillation. Anxiety. Pleural effusion. Pneumothorax. Orders placed to evaluate differential diagnosis based on the above differential, HPI and physical exam EKG: Time 2004. Rate 160. Atrial fibrillation with rapid ventricular response, nonspecific ST changes, no ectopy, This was reviewed and interpreted by myself the ER physician at 2006 Chest x-ray: Cardiomegaly. No obvious infiltrates. No heart failure at this time. This was reviewed and interpreted by myself the emergency room physician. I also reviewed the radiology report. Lab Review: Laboratory results were reviewed and interpreted by myself the emergency room physician. Leukocytosis with white count of 33,000. Patient seems to mount a pretty high white count when he comes to the hospital which has resolved at discharge each time. Hemoglobin is 10. BUN and creatinine are quite elevated over his baseline at 26 and 1.6 with with indicate that he is not in heart failure today along with a lower proBNP than normal. And no signs on x-ray. With a white count and A-fib with RVR I have concern for sepsis so treating him as such. Consultation: I spoke with Dr. Virk who is on-call for the hospitalist service who agrees to admission to the ICU. I repeated an EKG secondary to patient converting back into a sinus rhythm. Repeat EKG: Time 2144. Rate 96. Normal sinus rhythm, ST elevation in anterior lateral leads and inferior leads with some depression in aVL., no ectopy, normal UT & QRS intervals, This was reviewed and interpreted by myself the ER physician at 2149. Consultation: I spoke with Dr. Stafford who is on-call for the cardiology service who has evaluated the patient and discussed with the patient and the family risks and benefits of going to the [facility] and that he would likely need to be intubated to go and the patient says he does not want intubation or the procedure. I reviewed the patient's medical record. Reexamination: Patient appears much more comfortable on BiPAP. Work of breathing is improved some. O2 requirements have come down some as well. No altered mental status. No focal motor deficits. Heart rate is normal. Patient has no chest pain complaints. Says he has not had any at all. Given the changes in his EKG cardiology was consulted and they saw the patient in the emergency room. He declines intubation and this procedure. With his respiratory failure he would require intubation. Family was spoken to as well. They agree and he is his own POA. Assessment and plan: Acute on chronic hypoxemic respiratory failure Possible sepsis A-fib with RVR Acute renal insufficiency ?Amiodarone bolus and amiodarone drip with improvement in heart rate. Converted back to normal. -0.5 L normal saline bolus. Patient has extensive heart failure history. Pressures have been close to normal. However it dropped again some giving an additional liter for a total of 1.5 L -Broad-spectrum antibiotics were administered. Meropenem and Zyvox ?No obvious source of infection at this point but given his respiratory failure and cough would suspect that he has pneumonia. He also has an indwelling Robertson so urine is being collected and sent. -Sepsis quality measures. -Lactic acid with a reflex was ordered. -Blood cultures were ordered. -I discussed the patient with the hospitalist on-call who is admitting the patient. - Discussed findings and plan with patient. Answered any questions. - All laboratory values were reviewed and interpreted personally by myself, the ER physician - All imaging was reviewed and interpreted personally by myself, the ER physician. - Evaluation and treatment of this problem were appropriate in the emergency setting Critical care -I spent a total of >75 minutes of critical care time managing the patient, independent of any other practitioner. -The time involved in the performance of separately reportable procedures was not counted towards critical care time. Lab Data 02/10/25 20:13 02/10/25 20:38 Labs/Radiology: Radiology Impressions Chest X-Ray 02/10/25 19:58 IMPRESSION: No definitive acute cardiopulmonary disease. Laboratory Results WBC 33.83 10^3/uL (3.29-11.43) H* 02/10/25 20:13 RBC 4.27 10^6/uL (3.85-5.65) 02/10/25 20:13 Hgb 10.00 g/dL (11.27-16.99) L 02/10/25 20:13 Hct 36.1 % (37-53) L 02/10/25 20:13 MCV 84.5 fl (82-101) 02/10/25 20:13 MCH 23.4 pg (27-33) L 02/10/25 20:13 MCHC 27.7 g/dL (30-55) L 02/10/25 20:13 RDW 18.0 % (12.1-15.1) H 02/10/25 20:13 Plt Count 385 10^3/cmm (157-399) 02/10/25 20:13 MPV 9.3 fL (7.4-10.4) 02/10/25 20:13 Neut % (Auto) 94.7 % 02/10/25 20: Lymph % (Auto) 2.9 % 02/10/25 20: [place] % (Auto) 0.3 % 02/10/25 20: Eos % (Auto) 0.4 % 02/10/25: Baso % (Auto) 0.2 % 02/10/25 20:13 Neut # (Auto) 32.06 10^3/uL (1.8-7.7) H 02/10/25 20:13 Lymph # (Auto) 1.0 10^3/uL (0.8-4.8) 02/10/25 20:13 [place] # (Auto) 0.1 10^3/uL (0.2-0.9) L 02/10/25 20:13 Eos # (Auto) 0.1 10^3/uL (0.0-0.8) 02/10/25 20: Baso # (Auto) 0.1 10^3/uL (0.0-0.1) 02/10/25: Nucleated RBC % (auto) 0.1 % 02/10/25: Nucleated RBCs # 0.0 /100WBC 02/10/25 20:13 Specimen Type Arterial 02/10/25 20:00 Sample Site Radial, left 02/10/25 20:00 ABG pH 7.31 (7.35-7.45) L 02/10/25 20:00 ABG pCO2 48.3 mmHg (35-45) H 02/10/25 20:00 ABG pO2 216.0 mmHg (80.0-100.0) H 02/10/25 20:00 ABG PO2/FiO2 Ratio 270 02/10/25 20:00 ABG HCO3 24.5 mmol/L (22-26) 02/10/25 20:00 ABG O2 Saturation > 99.1 02/10/25 20:00 ABG Base Excess -1.9 mmol/L (-2.0-2.0) 02/10/25 20:00 Ivan Test Pos 02/10/25 20:00 A-a O2 Gradient 37.4 mmHg (5-10) H 02/10/25 20:00 Hematocrit 31.4 % (42-52) L 02/10/25 20:00 Hgb O2 Saturation 97.9 % (95-100) 02/10/25 20:00 Carboxyhemoglobin 1.2 %THgb (0.4-20.1) 02/10/25 20:00 Methemoglobin 1.0 % (0.4-1.5) 02/10/25 20:00 Total Hemoglobin 10.2 g/dL (14-18) L 02/10/25 20:00 Sodium 135.0 mmol/L (131-143) 02/10/25 20:00 Potassium 5.0 mmol/L (3.5-5.0) 02/10/25 20:00 Glucose 228.0 mg/dL (70-115) H 02/10/25 20:00 Ionized Calcium 1.1 mmol/L (1.1-1.4) 02/10/25 20:00 O2 Delivery Device Bipap 02/10/25 20:00 FiO2 80.0 % 02/10/25 20:00 Oxyhydrogen Welder ID [id number] 02/10/25 20:00 Sodium 133 mmol/L (136-145) L 02/10/25 20:38 Potassium 4.9 mmol/L (3.5-5.1) 02/10/25 20:38 Chloride 92 mmol/L (98-107) L 02/10/25 20:38 Carbon Dioxide 23 mmol/L (22-29) 02/10/25 20:38 Anion Gap 22.9 (5-19) H 02/10/25 20:38 BUN 26 mg/dL (8-23) H 02/10/25 20:38 Creatinine 1.6 mg/dL (0.7-1.2) H 02/10/25 20:38 GFR Calculation Not Reportable 02/10/25 20:38 Glucose 191 mg/dL (65-115) H 02/10/25 20:38 Calculated Osmolality 286 mOsm/kg (285-295) 02/10/25 20:38 Lactic Acid 8.1 mmol/L (0.5-2.2) H* 02/10/25 20:13 Calcium 8.5 mg/dL (8.5-10.5) 02/10/25 20:38 Total Bilirubin 0.4 mg/dL (0.15-1.2) 02/10/25 20:38 AST 59 U/L (0-40) H 02/10/25 20:38 ALT 32 U/L (0-41) 02/10/25 20:38 Alkaline Phosphatase 227 U/L (40-130) H 02/10/25 20:38 Troponin T Baseline 258 ng/L (0-15) H* 02/10/25 20:13 C-Reactive Protein 38.4 mg/L (0.0-4.9) H 02/10/25 20:42 NT-Pro-B Natriuret Pep 981 pg/mL (0-125) H 02/10/25 20:38 Total Protein 8.2 g/dL (6.6-8.7) 02/10/25 20:38 Albumin 3.2 g/dL (3.5-5.2) L 02/10/25 20:38 Globulin 5.0 g/dL (1.3-4.6) H 02/10/25 20:38 Influenza A (PCR) Negative (Negative) 02/10/25 20:35 Influenza Type B (PCR) Negative (Negative) 02/10/25 20:35 RSV (PCR) Negative (Negative) 02/10/25 20:35 SARS-CoV-2 (PCR) Negative (Negative) 02/10/25 20:35 All radiology interpretation(s) finalized by discharge Discharge Plan Discharge Patient Disposition: Admitted As Inpatient Admit Provider: Coco Virk Clinical Impression: Acute on chronic hypoxic respiratory failure, COPD with acute exacerbation, Sepsis, Atrial fibrillation with rapid ventricular response, Pneumonia, Acute renal insufficiency Condition: Stable Coding Level of Care Code ED Student Services Rep for Chana Glass
--- NOTE | 2025-02-10 20:05 | ECG_ITS ---
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 Measurements Intervals [place] Rate: 160 P: 0 [place]: 0 QRS: 30 QRSD: 162 T: 60 QT: 319 QTc: 522 Interpretive Statements ATRIAL FLUTTER/TACHYCARDIA WITH RAPID VENTRICULAR RESPONSE LEFT BUNDLE BRANCH BLOCK [120+ ms QRS DURATION, 80+ ms Q/S IN V1/V2, 85+ ms R IN I/aVL/V5/V6] MARKED ST ELEVATION, CONSIDER INFERIOR INJURY [MARKED ST ELEVATION W/O NORMALLY INFLECTED T-WAVE IN II/aVF] ACUTE TN Compared to ECG 01/28/2025 01:44:49 Left bundle-branch block now present ST (T wave) deviation now present Sinus rhythm no longer present Myocardial infarct finding still present Electronically Signed On 02-10-2025 21:49:24 CDT by Michelle Sandhu M.D. [email or web address]
[2025-02-10 20:13] LABS: ABG PCO2 48.3 mmHg (35-45); ABG PH Result 7.31 (7.35-7.45); Alveolar-Arterial Oxygen Gradi 37.4 mmHg (5-10); Arterial Blood Gas Hematocrit 31.4 % (42-52); Base Excess ABG -1.9 mmol/L (-2.0-2.0); Blood Gas Allen Test Pos; Blood Gas Operator Identificat JDB; Blood Gas Sample Site Radial, left; Blood Gas Sample Type Arterial; Carboxyhemoglobin 1.2 %THgb (0.4-20.1); HCO3 ABG 24.5 mmol/L (22-26); HGB O2 Sat 97.9 % (95-100); Ionized Calcium Level - ABG 1.1 mmol/L (1.1-1.4); Oxygen Device BIPAP; Oxygen Saturation ABG > 99.1; PO2 FiO2 Ratio Arterial Blood 270; Total Hemoglobin 10.2 g/dL (14-18)
[2025-02-10] MEDS: amiodarone 50 mg/mL SDV 3 mL 150 MG IVP (20:14)
[2025-02-10 20:22] LABS: Basophils # 0.1 10^3/uL (0.0-0.1); Basophils % 0.2 %; Eosinophils # 0.1 10^3/uL (0.0-0.8); Eosinophils % 0.4 %; Hematocrit 36.1 % (37-53); Lymphocytes % 2.9 %; Mean Corpuscular HGB Conc 27.7 g/dL (30-55); Mean Corpuscular Hemoglobin 23.4 pg (27-33); Mean Corpuscular Volume 84.5 fl (82-101); Mean Platelet Volume 9.3 fL (7.4-10.4); Monocytes # 0.1 10^3/uL (0.2-0.9); Monocytes % 0.3 %; Neutrophils # 32.06 10^3/uL (1.8-7.7); Neutrophils % 94.7 %; Nucleated Red Blood Cells % 0.1 %; Platelet Count 385 10^3/cmm (157-399); Red Blood Count 4.27 10^6/uL (3.85-5.65)
[2025-02-10 20:25] LABS: White Blood Count 33.83 10^3/uL (3.29-11.43)
[2025-02-10] MEDS: meropenem 500 mg SDV IVP (20:46)
[2025-02-10] MEDS: linezolid premix 600 MG/300 ML PREMIX 300 MG IV (20:49)
[2025-02-10 20:50] LABS: Troponin(5th) Baseline 258 ng/L (0-15)
[2025-02-10 20:54] LABS: Lactic Sepsis W/Reflex 8.1 mmol/L (0.5-2.2)
[2025-02-10] MEDS: sodium chloride 0.9% 500 ML 999 ML IV (21:01)
[2025-02-10 21:12] LABS: Alanine Aminotransferase 32 U/L (0-41); Albumin Level 3.2 g/dL (3.5-5.2); Alkaline Phosphatase 227 U/L (40-130); Aspartate Amino Transferase 59 U/L (0-40); Blood Urea Nitrogen 26 mg/dL (8-23); Calcium 8.5 mg/dL (8.5-10.5); Carbon Dioxide 23 mmol/L (22-29); Chloride 92 mmol/L (98-107); Glucose 191 mg/dL (65-115); NT Pro B Type Natriuretic Pept 981 pg/mL (0-125); Osmolality Calculated 286 mOsm/kg (285-295); Sodium 133 mmol/L (136-145); Total Bilirubin 0.4 mg/dL (0.15-1.2); Total Protein 8.2 g/dL (6.6-8.7)
[2025-02-10 21:14] LABS: Anion Gap 22.9 (5-19); Potassium 4.9 mmol/L (3.5-5.1)
[2025-02-10 21:26] LABS: C Reactive Protein 38.4 mg/L (0.0-4.9)
[2025-02-10 21:38] LABS: Influenza A NEGATIVE (Negative); Influenza B NEGATIVE (Negative); Respiratory Syncytial Virus Ce NEGATIVE (Negative); SARS-CoV-2 PCR NEGATIVE (Negative)
--- NOTE | 2025-02-10 21:45 | ECG_ITS ---
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 Measurements Intervals [place] Rate: 96 P: 72 [place]: 167 QRS: 48 QRSD: 94 T: 88 QT: 357 QTc: 451 Interpretive Statements SINUS RHYTHM LOW QRS VOLTAGE IN PRECORDIAL LEADS [QRS DEFLECTION < 1.0 mV IN CHEST LEADS] SEPTAL MYOCARDIAL INFARCTION , PROBABLY OLD [40+ ms Q WAVE IN V1/V2] ST ELEVATION, CONSIDER ANTERIOR INJURY [MARKED ST ELEVATION W/O NORMALLY INFLECTED T-WAVE IN V2-V5] MARKED ST ELEVATION, CONSIDER INFERIOR INJURY [MARKED ST ELEVATION W/O NORMALLY INFLECTED T-WAVE IN II/aVF] ACUTE ME Compared to ECG 02/10/2025 20:05:35 Low QRS voltage now present Atrial flutter no longer present.Left bundle-branch block no longer present Myocardial infarct finding still present .ST (T wave) deviation still present Electronically Signed On 02-10-2025 21:48:54 CDT by Michelle Sandhu M.D. [id number]
[2025-02-10 22:07] LABS: Reflex Lactate Order REFLEX LACTIC ORDERD
--- NOTE | 2025-02-10 22:31 | PM.CONSULT ---
Providers/Reason For Consult Consulting Physician/Specialty*: Kaz Stafford MD/ Cardiology Reason for Consult*: ST elevation Attending Physician: Coco Virk MD Primary Care Provider: Otilio Huang History of Present Illness History of Present Illness Edson Jaffe is a 74 year old male with past medical history of DVT, was recently discharged from hospital when had respiratory failure has been sent from nursing facility with complaints of acute shortness of breath. For the last few hours patient has been having severe breathing difficulty. Feeling better on BiPAP. He has been feeling more comfortable. He is DNR/DNI. Does not want any resuscitation attempts. He makes his own decisions. Cardiology was consulted as patient EKG initially showed atrial fibrillation with RVR and later converted to sinus rhythm with ST elevations in inferior, anterior and anterolateral leads. He is denying chest pain and says feels very comfortable. Review of Systems General: Reports: 10 or more systems reviewed and unremarkable except in HPI and below Medications/Allergies Home Medications ?Medication ?Instructions ?Recorded ?Confirmed ?Last Taken ?Type albuterol sulfate 90 mcg/actuation 2 puff inhalation Q4H PRN 11/02/24 01/28/25 12/05/24 History aerosol inhaler Shortness Of Breath Or Wheezing aluminum-mag hydroxide-simethicone 30 ml PO Q2H PRN 11/02/24 01/28/25 Unknown History 400 mg-400 mg-40 mg/5 mL oral susp indigeston/heartburn/gas (Mylanta Maximum Strength) apixaban 5 mg tablet (Eliquis) 5 mg PO BID 11/02/24 01/28/25 01/27/25 History Held on 01/31/25. Instructions: Resume on 02/24/25. hold until you see surgery bisacodyl 10 mg rectal suppository 10 mg ME .Q72H PRN Constipation 11/02/24 01/28/25 Unknown History docusate sodium 100 mg capsule 100 mg PO BID 11/02/24 01/28/25 01/27/25 History (Colace) ergocalciferol (vitamin D2) 1,250 50,000 mcg PO Q7D 11/02/24 01/28/25 01/23/25 History mcg (50,000 unit) capsule fluoxetine 40 mg capsule 40 mg PO DAILY 11/02/24 01/28/2525 History fluticasone fur. 200 mcg-umeclid 1 inh inhalation DAILY 11/02/24 01/28/25 01/26/25 History 62.5 mcg-vilant 25 mcg inhalat.powder (Trelegy Ellipta) ipratropium 0.5 mg-albuterol 3 mg 3 ml inhalation BID 11/02/24 01/28/25 01/27/25 History (2.5 mg base)/3 mL nebulization soln magnesium hydroxide 400 mg/5 mL 30 ml PO DAILY PRN Constipation 11/02/24 01/28/25 01/21/25 History oral suspension (Milk of Magnesia) multivitamin 1 tab PO QAM 11/02/24 01/28/25 01/26/25 History omeprazole 20 mg tablet,delayed 20 mg PO DAILY 11/02/24 01/28/25 01/26/25 History release polyethylene glycol 3350 17 17 g PO DAILY PRN bowel management 11/02/24 01/28/25 11/20/24 History gram/dose oral powder (Miralax) sennosides 8.6 mg tablet (senna) 8.6 mg PO DAILY 11/02/24 01/28/25 01/27/25 History spironolactone 50 mg tablet 50 mg PO DAILY 11/02/24 01/28/25 01/26/25 History bumetanide 1 mg tablet 1 mg PO BIDAC #60 tabs 11/06/24 01/28/25 01/27/25 Rx Right cockup splint #1 ea 11/28/24 01/28/25 Unknown Rx acetaminophen 325 mg tablet 650 mg PO Q4-5H PRN Pain 12/06/24 01/28/25 01/20/25 History (Tylenol) levothyroxine 25 mcg tablet 25 mcg PO DAILY 12/06/24 01/28/25 01/26/25 History melatonin 1 mg tablet 1 mg PO BEDTIME 12/06/24 01/28/25 01/27/25 History melatonin 5 mg tablet 5 mg PO BEDTIME 12/06/24 01/28/25 01/27/25 History gabapentin 400 mg capsule 400 mg PO BID neuropathy 01/28/25 01/28/25 01/27/25 History loperamide 2 mg tablet (Imodium 2 mg PO Q6H PRN Diarrhea 01/28/25 01/28/25 Unknown History A-D) oxycodone-acetaminophen 10 mg-325 1 tab PO Q6H PRN Pain 01/28/25 01/28/25 01/27/25 History mg tablet protein supplement See Rx Instructions .Route .COMPLEX 01/28/25 01/28/25 01/26/25 History semaglutide 1 mg/dose (4 mg/3 mL) 1 mg SUBCUT Q7D 01/28/25 01/28/25 01/23/25 History subcutaneous pen injector (Ozempic) ferrous sulfate 325 mg (65 mg 325 mg PO BID 30 days #60 tabs 01/31/25 Unknown Rx iron) tablet pantoprazole 40 mg tablet,delayed 40 mg PO BID 30 days #60 tabs 01/31/25 Unknown Rx release (Protonix) potassium chloride 20 mEq 10 meq (1/2 x 20 mEq) PO BID 30 01/31/25 Unknown Rx tablet,extended days #30 tabs release(part/cryst) (Klor-Con M) sucralfate 1 gram tablet 1 g PO Q12H 30 days #60 tabs 01/31/25 Unknown Rx Allergies Allergy/AdvReac Type Severity Reaction Status Date / Time broccoli Allergy ADR-Vomitin Verified 02/10/25 20:12 g Current Medications Generic Name Dose Route Start Last Admin Trade Name Freq PRN Reason Stop Dose Admin Amiodarone HCl/Dextrose 360 mg in 200 mls @ 0 mls/hr 02/10/25 20:18 02/10/25 20:31 Nexterone IV 1 mg/min .Q0M HARJINDER 33.33 mls/hr Protocol Administration Per Protocol PFSH Acute PFSH: Medical History Open wound of right lower leg Open wound of left lower leg Pressure ulcer of right buttock, stage 3 History of deep vein thrombosis Congestive heart failure Social History Smoking and tobacco/nicotine status: former use of tobacco/nicotine Vitals/I&O/Wt Last Vital Signs Temp 99.4 F 02/10/25 19:58 Pulse 91 02/10/25 22:10 Resp 20 H 02/10/25 22:10 BP 99/63 02/10/25 22:10 Pulse Ox 98 02/10/25 22:10 O2 Del Method BiPAP 02/10/25 22:10 FiO2 60 02/10/25 20:32 02/10/25 02/10/25 02/10/25 06:59 14:59 22:59 Intake Total 0 / 0 Balance 0 / 0 Weight last 48 hrs Weight 314 lb Physical Exam Narrative: GENERAL: Patient is alert, on BiPAP NECK: No jugular vein distension. [] HEENT: No cyanosis. No icterus. No pallor. [] HEART: Regular S1 and S2. Grade 2/6 systolic murmur LUNGS: Diminished air entry bilaterally CENTRAL NERVOUS SYSTEM: Grossly nonfocal. [] EXTREMITIES: Lower extremities with 1+ edema bilaterally. Data 02/10/25 20:13 02/10/25 20:38 Micro: Microbiology 02/10/25 20:35 Blood Culture - Preliminary Blood SPECIMEN COLLECTED 02/10/25 20:55 Blood Culture - Preliminary Blood SPECIMEN COLLECTED A&P Assessment and plan (1) ST elevation: (2) Atrial fibrillation with rapid ventricular response: (3) Acute renal insufficiency: (4) Sepsis: (5) Acute on chronic hypoxic respiratory failure: Plan Patient has a complex history. He has been sent from nursing facility secondary to acute on chronic respiratory failure. On BiPAP feeling better. At presentation he was in A-fib with RVR. Once he converted back to sinus rhythm, EKG showing more diffuse ST elevation in inferior, anterior and anterolateral leads. He denies chest pain. Initial troponin is 258. WBC count is 33,000. Patient makes his own decisions. He is DNR/DNI. I had a detailed discussion with him regarding possible procedure. However he does not want to change CODE STATUS and wants medical therapy. I informed him of potential risks. He shows understanding. I also called his sister who confirmed that patient has wanted to be DNR/DNI. At this time can continue with medical therapy of [place]. Start DAPT with aspirin and Plavix. Heparin GTT. Continue BiPAP. Possible sepsis. Treatment per medicine team. Order echocardiogram. Trend troponin Last echo showed normal LV systolic function with moderate aortic stenosis Other differential diagnosis may involve myopericarditis. Thank you for involving us with care of this patient. Please call with questions. PDMP PDMP Reviewed: Not Reviewed Consult Attestations Medical Necessity Statement: Care expected to cross 2 midnights. Coding Level of Care Code Acute Code for Chg Fwd Diagnoses ST elevation R94.31 Atrial fibrillation with rapid ventricular response I48.91 Acute renal insufficiency N28.9 Sepsis A41.9 Acute on chronic hypoxic respiratory failure J96.21
--- NOTE | 2025-02-10 23:31 | PM.HP ---
Providers/Chief Complaint Admitting Physician: Coco Virk MD--- patient seen before midnight Primary Care Provider: Otilio Huang Chief Complaint: SOB History of Present Illness Edson Jaffe is a 74 year old male, in custodial resident who had presented with a history of CHF COPD atrial fibrillation on Eliquis presenting because of acute onset of shortness of breath beyond the baseline. Patient came in with hypoxic hypercapnic respiratory failure and had to have a rescue BiPAP to be optimized. Patient also was leukocytosis dry with acute respiratory failure. Creatinine 2 days ago was 1.0 at this presentation it was 1.6. Patient had leukocytosis at 33,000. Atrial fibrillation with rapid ventricular rate in the 180s. Patient undoubtably have underlining infection and also most likely tachycardia induced troponin elevation and a lot of strain to the heart leading to much diffuse ST elevation [place]. Patient had multiple medical issues that require acute cardiology consultation done at this point patient is going to be going to the OR. Patient does have Eliquis involved and on board. Dr. Horner was consulted. Patient atrial fibrillation was fairly controlled on amiodarone. Initial push of 150 mg of amiodarone was done and then a drip was initiated. Patient heart rate came down very nicely to the teens. ABG was done it was not as alarming. Patient does have lactic acidosis to a lactate of 8.0 elevation. Because of the underlining infection patient does have ongoing COPD exacerbation. Nebulizing treatment has been placed on board along with steroid therapy. Patient is going to ICU for multiple reason. Patient is on BiPAP that is a rescue requiring ICU admission and also with NSTEMI on board troponin was over 200. Patient also had remarkable diffuse ST elevation with some depression in the lateral leads and elevation in inferior and anterior wall. Patient is DNR and that had been also ordered per the custodial record. All care has been addressed. Patient had received meropenem vancomycin and also was given Zyvox in the emergency room. Patient who is now in an acute renal failure I have to keep all medication renal friendly. Meropenem is good for this level of infection to cover anaerobic's and gram-negative. I will stay away from vancomycin and will stay away from Zyvox because Zyvox can affect issues with the liver will follow through with doxycycline which is found to be renal friendly but at the same time will cover gram-positive and MRSA's. Repeat EKG following the prior showed diffuse ST elevation cardiology we are consulted and they came immediately but the patient refused cardiac catheterization. Patient is a DNR. Review of Systems Narrative: System review patient is gravely sick and on BiPAP because of profound respiratory failure. Patient has much inflammatory induced process white count went from 30s to 84,000. Patient had cardiovascular failure with atrial fibrillation in the 180s finally getting rate control and better. Patient sees times where virtually affected the quality heart the kidney and the systemic with much lactic acidosis. Medications/Allergies Home Medications ?Medication ?Instructions ?Recorded ?Confirmed ?Last Taken ?Type albuterol sulfate 90 mcg/actuation 2 puff inhalation Q4H PRN 11/02/24 02/11/25 12/05/24 History aerosol inhaler Shortness Of Breath Or Wheezing aluminum-mag hydroxide-simethicone 30 ml PO Q2H PRN 11/02/24 02/11/25 Unknown History 400 mg-400 mg-40 mg/5 mL oral susp indigeston/heartburn/gas (Mylanta Maximum Strength) apixaban 5 mg tablet (Eliquis) 5 mg PO BID 11/02/24 02/11/25 01/27/25 History Held on 01/31/25. Instructions: Resume on 02/24/25. hold until you see surgery bisacodyl 10 mg rectal suppository 10 mg [place] .Q72H PRN Constipation 11/02/24 02/11/25 Unknown History docusate sodium 100 mg capsule 100 mg PO BID 11/02/24 02/11/25 02/10/25 History (Colace) ergocalciferol (vitamin D2) 1,250 50,000 mcg PO Q7D 11/02/24 02/11/25 02/06/25 History mcg (50,000 unit) capsule fluoxetine 40 mg capsule 40 mg PO DAILY 11/02/24 02/11/25 02/10/25 History fluticasone fur. 200 mcg-umeclid 1 inh inhalation DAILY 11/02/24 02/11/25 02/10/25 History 62.5 mcg-vilant 25 mcg inhalat.powder (Trelegy Ellipta) magnesium hydroxide 400 mg/5 mL 30 ml PO DAILY PRN Constipation 11/02/24 02/11/25 01/21/25 History oral suspension (Milk of Magnesia) multivitamin 1 tab PO QAM 11/02/24 02/11/25 02/10/25 History omeprazole 20 mg tablet,delayed 20 mg PO DAILY 11/02/24 02/11/25 02/10/25 History release polyethylene glycol 3350 17 17 g PO DAILY PRN bowel management 11/02/24 02/11/25 11/20/24 History gram/dose oral powder (Miralax) sennosides 8.6 mg tablet (senna) 8.6 mg PO DAILY 11/02/24 02/11/25 02/09/25 History spironolactone 50 mg tablet 50 mg PO DAILY 11/02/24 02/11/25 02/10/25 History bumetanide 1 mg tablet 1 mg PO BIDAC #60 tabs 11/06/24 02/11/25 02/10/25 Rx Right cockup splint #1 ea 11/28/24 02/11/25 Unknown Rx acetaminophen 325 mg tablet 650 mg PO Q4H PRN general 12/06/24 02/11/25 01/30/25 History (Tylenol) discomfort levothyroxine 25 mcg tablet 25 mcg PO DAILY 12/06/24 02/11/25 02/10/25 History melatonin 1 mg tablet 3 mg PO BEDTIME 12/06/24 02/11/25 02/09/25 History melatonin 5 mg tablet 5 mg PO BEDTIME 12/06/24 02/11/25 02/09/25 History gabapentin 400 mg capsule 400 mg PO BID neuropathy 01/28/25 02/11/25 02/10/25 History loperamide 2 mg tablet (Imodium 2 mg PO Q6H PRN Diarrhea 01/28/25 02/11/25 02/01/25 History A-D) oxycodone-acetaminophen 10 mg-325 1 tab PO Q6H PRN Pain 01/28/25 02/11/25 02/10/25 History mg tablet protein supplement See Rx Instructions .Route .COMPLEX 01/28/25 02/11/25 02/10/25 History semaglutide 1 mg/dose (4 mg/3 mL) 1 mg SUBCUT Q7D 01/28/25 02/11/25 01/23/25 History subcutaneous pen injector (Ozempic) pantoprazole 40 mg tablet,delayed 40 mg PO BID 30 days #60 tabs 01/31/25 02/11/25 02/10/25 Rx release (Protonix) potassium chloride 20 mEq 10 meq (1/2 x 20 mEq) PO BID 30 01/31/25 02/11/25 02/10/25 Rx tablet,extended days #30 tabs release(part/cryst) (Klor-Con M) sucralfate 1 gram tablet 1 g PO Q12H 30 days #60 tabs 01/31/25 02/11/25 02/10/25 Rx prednisone 20 mg tablet 40 mg PO DAILY 02/11/25 02/11/25 02/05/25 History Allergies Allergy/AdvReac Type Severity Reaction Status Date / Time broccoli Allergy ADR-Vomitin Verified 02/10/25 20:12 g PFSH Acute PFSH: Medical History Open wound of right lower leg Open wound of left lower leg Pressure ulcer of right buttock, stage 3 History of deep vein thrombosis Congestive heart failure Social History Smoking and tobacco/nicotine status: former use of tobacco/nicotine Vitals/I&O/Wt Last Vital Signs Temp 99.4 F 02/10/25 19:58 Pulse 91 02/10/25 22:10 Resp 20 H 02/10/25 22:10 BP 99/63 02/10/25 22:10 Pulse Ox 98 02/10/25 22:10 O2 Del Method BiPAP 02/10/25 22:10 FiO2 60 02/10/25 20:32 02/10/25 02/10/25 02/11/25 14:59 22:59 06:59 Intake Total 0 / 0 Balance 0 / 0 Weight last 48 hrs Weight 142.428 kg Physical Exam Narrative: Patient is gravely ill able to verbalize and answer questions denies chest pains when asked. Myocardial injury is contributed by various factors tachycardia and although was Tachycardia arrhythmia and much inflammatory cells bump in the white count to 84,000. HEENT normocephalic/atraumatic patient on BiPAP Neck is supple and thick Cardiovascular heart rate is irregularly irregular A-fib with rapid ventricular rates in the 180s at presentation Lungs are with coarse breath sounds Abdomen is soft nontender nondistended but obese abdomen Robertson to gravity. Neurology patient is mentating he has no focal deficits neurologically Data 02/11/25 02:37 02/11/25 02:37 Micro: Microbiology 02/10/25 20:35 Blood Culture - Preliminary Blood SPECIMEN COLLECTED 02/10/25 20:55 Blood Culture - Preliminary Blood SPECIMEN COLLECTED A&P Assessment and plan (1) ST elevation: Continue rate control, anticoagulant, antiplatelets, cardiology consultation, Gentle hydration (2) Acute renal insufficiency: Acute renal failure on continue to maintain good blood pressure and hydration. (3) Atrial fibrillation with rapid ventricular response: Continue anticoagulants such as Eliquis, continue rate controlling medications such as amiodarone patient is on with a drip, continue and proceed with cardiology consultation who had already seen the patient. (4) Sepsis: Patient with lactic acidosis hypotensive septic shock - Supporting with pressors - IV fluid - Antibiotics - Continue to monitor and optimize (5) COPD with acute exacerbation: Continue nebulizing treatment Supplemental oxygen with BiPAP Steroid therapy (6) Acute on chronic hypoxic respiratory failure: Manage as COPD exacerbation as possible (7) Lactic acidosis: This is tissue injury due to sepsis from profound and sustained hypotension with lack of tissue perfusion at presentation PDMP PDMP Reviewed: Last Reviewed 02/11/25 10:33 by Coco Virk MD Attestations Medical Necessity Statement*: Patient needs labs a minimum of 2 midnights because of multiple acute medical problems with hypotension and septic shock atrial fibrillation with RVR requiring support respiratory failure requiring BiPAP. Coding Level of Care Code [address] elevation R94.31 Acute renal insufficiency N28.9 Atrial fibrillation with rapid ventricular response I48.91 Sepsis A41.9 COPD with acute exacerbation J44.1 Acute on chronic hypoxic respiratory failure J96.21 Lactic acidosis E87.20 Time Spent (min) 80
[2025-02-11] VITALS (195 sets, daily range): BP systolic 84–132; BP diastolic 34–87; PULSE 60–84; RESP 13–31; TEMP 36.7–37.2; O2SAT 74–100
[2025-02-11] LABS: Troponin 5 2HR 500.1 ng/L (0-15); Troponin 5 2HR Delta 242.1 ABS# (0-10)
[2025-02-11 00:26] LABS: Bilirubin Urine Negative (Negative); Blood Urine 2+ (Negative); Glucose Urine UA Negative (Normal); Ketones Urine Negative (Negative); Leukocyte Esterase Urine 2+ (Negative); Nitrate Urine Positive (Negative); Protein Urine Trace (Negative); Specific Gravity, Urine 1.013 (1.005-1.030); Urine Appearance Clear (CLEAR); Urine Color Yellow (Yellow); Urobilinogen Urine 0.2 mg/dL (Negative)
[2025-02-11] MEDS: pantoprazole 40 mg SDV IVP ×2 (00:30→22:57)
[2025-02-11 00:31] LABS: Bacteria Urine 4+ /hpf; Hyaline Casts Urine 46.74 /lpf; RBC Urine >100 /hpf (0-2); Squamous Epithelial Cell Urine 0-5 /hpf (0-5); WBC Urine 51-100 /hpf (0-5)
[2025-02-11] MEDS: methylPREDNISolone sod succ 40 mg/mL INJ IVP (00:31)
[2025-02-11] MEDS: sodium chloride 0.9% 1,000 ML 75 ML IV (00:34)
[2025-02-11] MEDS: doxycycline 100 MG in sodium chloride 0.9% (plus) 100 ML IV (00:36)
[2025-02-11 01:06] LABS: Add Urine Culture? Yes; UA Slide Review UA Slide Review Perf
[2025-02-11 02:54] LABS: Hematocrit 32.4 % (37-53); Mean Corpuscular HGB Conc 28.1 g/dL (30-55); Mean Corpuscular Hemoglobin 23.4 pg (27-33); Mean Corpuscular Volume 83.3 fl (82-101); Mean Platelet Volume 9.2 fL (7.4-10.4); Platelet Count 348 10^3/cmm (157-399); Red Blood Count 3.89 10^6/uL (3.85-5.65); Red Cell Distribution Width 18.1 % (12.1-15.1)
[2025-02-11] MEDS: ipratropium-albuterol 3 mL Neb INHALATION ×6 (03:00→23:06)
--- NOTE | 2025-02-11 03:04 | ECG_ITS ---
[facility]25[facility]11 Pat Name: Edson Jaffe Department: Room: ICU02 Gender: Male Pcm[facility] Specialist: : 1950 Requested By: Tayler Mcintyre Order Number: [id number] Richar MD: Orlando Chavez M.D. Measurements Intervals Kimberly Rate: 70 P: 17 CT: 130 QRS: 59 QRSD: 105 T: -49 QT: 402 QTc: 436 Interpretive Statements SINUS RHYTHM SEPTAL MYOCARDIAL INFARCTION , PROBABLY OLD [40+ ms Q WAVE IN V1/V2] MARKED ST ELEVATION, CONSIDER INFERIOR INJURY [MARKED ST ELEVATION W/O NORMALLY INFLECTED T-WAVE IN II/aVF] ACUTE AK Compared to ECG 02/10/2025 21:45:31 No significant changes Electronically Signed On 02-13-2025 08:22:22 CDT by Orlando Chavez M.D. [email or web address]
[2025-02-11 03:26] LABS: Estmated Average Glucose 111; Hemoglobin A1C 5.5 % (4.0-6.0)
[2025-02-11 03:27] LABS: Partial Thromboplastin Time 26.5 SECONDS (23.9-36.7)
[2025-02-11 03:29] LABS: Slide Review Slide Review Perform
[2025-02-11 03:30] LABS: Absolute Segmented Neutrophil 591.9 10/cmm (1.6-7.1); Band Neutrophils Absolute 17.7 10^3/cmm (0.0-1.2); Eosinophils 0 %; Lymphocytes 1 %; Monocytes Absolute 0.8 10^3/cmm (0.1-0.6); Segmented Neutrophils 701 %; Total Cells Counted 100 (0-100)
[2025-02-11 03:32] LABS: Alanine Aminotransferase 40 U/L (0-41); Alkaline Phosphatase 189 U/L (40-130); Anion Gap 17.9 (5-19); Aspartate Amino Transferase 65 U/L (0-40); Blood Urea Nitrogen 31 mg/dL (8-23); Calcium 8.4 mg/dL (8.5-10.5); Carbon Dioxide 26 mmol/L (22-29); Chloride 96 mmol/L (98-107); Globulin 4.7 g/dL (1.3-4.6); Glucose 212 mg/dL (65-115); Lactic Acid level (Lactate) 4.1 mmol/L (0.5-2.2); Magnesium 1.9 mg/dL (1.7-2.3); Osmolality Calculated 293 mOsm/kg (285-295); Phosphorus 2.8 mg/dL (2.5-4.5); Potassium 4.9 mmol/L (3.5-5.1); Sodium 135 mmol/L (136-145); Thyroid Stimulating Hormone 5.06 uIU/mL (0.27-4.20); Total Protein 7.7 g/dL (6.6-8.7); Troponin 5 6HR 704.8 ng/L (0-15); Troponin 5 6HR Delta 446.8 ng/L (0-12)
[2025-02-11 03:33] LABS: Absolute Neutrophil 609.6 10^3/cmm (1.4-6.5); Giant Platelets Trace; Lymphocytes Absolute 0.8 10^3/cmm (1.2-3.4); Platelet Estimate Normal (Normal); White Blood Count 84.43 10^3/uL (3.29-11.43)
[2025-02-11 03:34] LABS: Anisocytosis 1+
[2025-02-11 03:38] LABS: NT Pro B Type Natriuretic Pept 3609 pg/mL (0-125)
[2025-02-11 03:49] LABS: Chol HDL Ratio 3.07 mg/dL (1.0-5.00); Cholesterol 132 mg/dL (0-200); HDL Cholesterol 43 mg/dL (60-100); LDL Cholesterol Calculated 67 mg/dL (50-129); LDL HDL Ratio 1.56 RATIO (0.00-3.22); Triglycerides 112 mg/dL (0-150)
[2025-02-11 04:34] LABS: Total Bilirubin 0.2 mg/dL (0.15-1.2)
[2025-02-11] MEDS: meropenem 500 mg SDV IVP ×3 (05:06→20:51)
[2025-02-11] MEDS: heparin 5,000 unit/mL INJ 1 mL IVP (05:20)
[2025-02-11] MEDS: heparin drip 25,000 UNIT/500 ML PREMIX 41 UNIT IV (05:20)
[2025-02-11 06:36] LABS: Lactic Sepsis W/Reflex 4.1 mmol/L (0.5-2.2)
[2025-02-11 07:43] LABS: Reflex Lactate Order REFLEX LACTIC ORDERD
[2025-02-11 09:23] LABS: Lactic Acid level (Lactate) 4.3 mmol/L (0.5-2.2)
--- NOTE | 2025-02-11 09:56 | PHA.VACGOAL ---
Vancomycin Goal - Goal Vancomycin Goal:: 15-20 mg/L Vancomycin Indication:: Other (SEPSIS) - Therapy Current therapy:: Meropenem Day of therpy:: Day []of [] . Actual body weight (kg): 318 lb - Data Labs: WBC 84.43 10^3/uL (3.29-11.43) H* 02/11/25 02:37 RBC 3.89 10^6/uL (3.85-5.65) 02/11/25 02:37 Hgb 9.10 g/dL (11.27-16.99) L 02/11/25 02:37 Hct 32.4 % (37-53) L 02/11/25 02:37 MCV 83.3 fl (82-101) 02/11/25 02:37 MCH 23.4 pg (27-33) L 02/11/25 02:37 MCHC 28.1 g/dL (30-55) L 02/11/25 02:37 RDW 18.1 % (12.1-15.1) H 02/11/25 02:37 Sodium 135 mmol/L (136-145) L 02/11/25 02:37 Potassium 4.9 mmol/L (3.5-5.1) 02/11/25 02:37 Chloride 96 mmol/L (98-107) L 02/11/25 02:37 Carbon Dioxide 26 mmol/L (22-29) 02/11/25 02:37 Anion Gap 17.9 (5-19) 02/11/25 02:37 BUN 31 mg/dL (8-23) H 02/11/25 02:37 Creatinine 2.0 mg/dL (0.7-1.2) H 02/11/25 02:37 GFR Calculation Not Reportable 02/11/25 02:37 Last dialysis session:: N/A Treatment plan:: new consult Regimen:: LOADING DOSE OF 3000 MG X1 PER DOSING PROTOCOL. INITIAL MAINTENANCE DOSE OF 1000 MG Q12H Follow up:: WILL CONTINUE TO MONITOR AND FOLLOW UP DAILY
[2025-02-11 10:13] LABS: 25 Hydroxy Vitamin D 36 ng/mL (30-100); Procalcitonin > 100.00 ng/mL (0-0.5)
--- NOTE | 2025-02-11 11:06 | PC.NURSE ---
instructions via phone from provide after cheetah results give 1 litter IV bolus over 1 hr and change rate to 150mls/hr
[2025-02-11] MEDS: albumin 25 G/100 ML BAG 60 G IV ×2 (11:19→20:51)
[2025-02-11] MEDS: vancomycin 3,000 MG/600 ML PIGGYBACK 200 MG IV (11:19)
[2025-02-11 13:31] LABS: Partial Thromboplastin Time 96.9 SECONDS (23.9-36.7)
[2025-02-11] MEDS: sodium chloride 0.9% 1,000 ML 999 ML IV (13:48)
--- NOTE | 2025-02-11 13:51 | PM.PN ---
Subjective Subjective: Patient was on BiPAP earlier this morning without any shortness of breath we was taken off and placed on his usual oxygen supplementation with out chest pain or shortness of breath He told the nurse and myself about his Robertson catheter change yesterday. He states it was very painful and has not felt right since insertion Vitals/I&O/Wt Last Vital Signs Temp 98.0 F 02/11/25 04:00 Pulse 65 02/11/25 11:20 Resp 18 02/11/25 11:10 BP 105/81 02/11/25 04:10 Pulse Ox 96 02/11/25 11:10 O2 Del Method Nasal Cannula 02/11/25 11:10 O2 Flow Rate 4 02/11/25 11:10 FiO2 40 02/11/25 08:00 02/10/25 02/11/25 02/11/25 22:59 06:59 14:59 Intake Total 0 / 0 1154.439 / 1154.439 850 / 850 Output Total 500 / 500 Balance 0 / 0 654.439 / 654.439 850 / 850 Weight last 48 hrs Weight 144.242 kg Weight 144.242 kg Weight 142.428 kg Physical Exam Narrative: Morbidly obese white male intermediate resident in no acute distress at time of exam Heart regular very distant heart sounds no loud murmur Lungs clear to auscultation anteriorly and laterally Abdomen obese soft nontender nondistended positive bowel sounds Extremities nonpitting edema present and overall puffiness . I reevaluation this afternoon shows that the nurse just replaced the Robertson catheter with good result. He is having bleeding from the urethral site. And the urine is streaked with blood Data 02/11/25 02:37 02/11/25 02:37 Micro: Microbiology 02/10/25 20:35 Blood Culture - Preliminary Blood SPECIMEN COLLECTED 02/10/25 20:55 Blood Culture - Preliminary Blood SPECIMEN COLLECTED A&P Assessment and plan (1) Atrial fibrillation with rapid ventricular response: Converted to normal sinus rhythm with diffuse ST segment elevation with amiodarone drip Changed to 400 mg p.o. twice daily (2) Sepsis: Likely from urine. Patient had his Robertson catheter changed yesterday, with suspected poor placement due to his continuous pain (3) Acute renal insufficiency: Likely due to relative obstruction due to poor Robertson placement (4) ST elevation: Discussion with cardiology. Troponins are elevated but not over the expected level for an ST segment elevation SC The ST segment elevation is diffuse more consistent with myocarditis or pericarditis Also the reason for not pursuing cardiac cath has to do with the patient's DNR status. Cardiology preference is for full code during procedure since cardiac arrhythmias and respiratory failure is not uncommon If necessary CODE STATUS can be reevaluated if felt cardiac cath is the procedure needed. (5) Lactic acidosis: Patient was tested for fluid resuscitation and results show that he can tolerate more fluids. He was given 1 L bolus and increased his normal saline rate for 250 cc an hour (6) Morbid obesity with BMI of 40.0-44.9, adult: (7) [facility] resident: (8) DNR (do not resuscitate): Patient has had a DO NOT RESUSCITATE on his chart at the intermediate prior to admission and has clearly stated his wishes previously (9) Chronic indwelling Robertson catheter: Robertson catheter was changed yesterday at the intermediate It is changed again today to a three-way catheter for CBI if necessary due to blood clots Plan Note pneumonia is listed as a diagnosis however chest x-ray was negative Suspect sepsis due to UTI continue IV antibiotics Continue fluid resuscitation Heparin on hold due to profuse bleeding from urethra site Notified cardiology of bleeding and holding heparin. Echo is pending to check wall motion abnormalities to determine next course of action from cardiology standpoint Follow labs While patient received steroids in the ER and initially on admission this is not the cause for elevated white blood cell count. I have stopped the steroids just so not to confuse the picture PDMP PDMP Reviewed: Not Reviewed Attestations Medical Necessity Statement*: Patient requires 2 midnight stay for ICU level care due to the ST elevation severe sepsis with a white count of 80,000. Coding Level of Care Code Acute Code for Chg Fwd Diagnoses Atrial fibrillation with rapid ventricular response I48.91 Sepsis A41.9 Acute renal insufficiency N28.9 ST elevation R94.31 Lactic acidosis E87.20 Morbid obesity with BMI of 40.0-44.9, adult E66.01; Z68.41 [facility] resident Z78.9 DNR (do not resuscitate) Z66 Chronic indwelling Robertson catheter Z97.8
--- NOTE | 2025-02-11 15:34 | PC.NURSE ---
patient reported discomfort in bladder, patient has had poor out put this shift upon examination attempted irrigation unable to get any return provider notified instruction to change out montejo and prepare for bladder irrigation patient with bleeding from penis during removal and post insertion provider at bedside instructions to hold heparin gtt due to bleeding urine running clear now no blood clots bleeding from penis has slowed
[2025-02-11] MEDS: amiodarone 200 mg Tablet PO (18:01)
[2025-02-11] MEDS: docusate sodium 100 mg Capsule PO (18:01)
[2025-02-11] MEDS: sodium chloride 0.9% 1,000 ML 150 ML IV (18:02)
[2025-02-11] MEDS: morphine 4 mg/mL SDV 1 mL 2 MG IVP ×2 (18:32→20:56)
[2025-02-11] MEDS: ondansetron 2 mg/ML SDV 2 mL 4 MG IVP (19:25)
--- NOTE | 2025-02-11 20:29 | PM.PN ---
Subjective Subjective: Patient has no chest pain. Has some shortness of breath. Vitals/I&O/Wt Last Vital Signs Temp 98.0 F 02/11/25 04:00 Pulse 68 02/11/25 19:36 Resp 22 H 02/11/25 19:36 BP 107/64 02/11/25 16:00 Pulse Ox 95 02/11/25 19:38 O2 Del Method Nasal Cannula 02/11/25 19:38 O2 Flow Rate 4 02/11/25 19:38 FiO2 40 02/11/25 08:00 02/11/25 02/11/25 02/11/25 06:59 14:59 22:59 Intake Total 1154.439 / 7376.644 9762 / 1240 2085.561 / 3325.561 Output Total 500 / 500 Balance 654.439 / 317.830 6074 / 1240 2085.561 / 3325.561 Weight last 48 hrs Weight 318 lb Weight 318 lb Weight 314 lb Physical Exam Narrative: GENERAL: Patient is alert, on BiPAP NECK: No jugular vein distension. [] HEENT: No cyanosis. No icterus. No pallor. [] HEART: Regular S1 and S2. Grade 2/6 systolic murmur LUNGS: Diminished air entry bilaterally CENTRAL NERVOUS SYSTEM: Grossly nonfocal. [] EXTREMITIES: Lower extremities with 1+ edema bilaterally. Urinary Catheter Management: 3-way Urethral CBI: Cath Placed During This Visit: yes Reason for Continuing Indwelling Catheter: Acute Urinary Retention or Obstruction Urinary Catheter Date of Insertion: 02/11/25 Urinary Catheter Time of Insertion: 13:10 Data 02/11/25 02:37 02/12/25 02:39 Micro: Microbiology 02/10/25 20:55 Blood Culture - Preliminary Blood 02/10/25 20:35 Blood Culture - Preliminary Blood SPECIMEN COLLECTED A&P Assessment and plan (1) ST elevation: (2) Atrial fibrillation with rapid ventricular response: (3) Acute renal insufficiency: (4) Sepsis: (5) Acute on chronic hypoxic respiratory failure: Plan Patient is a stable. No chest pain. Echocardiogram is pending. He started having significant urethral bleeding. Primary team has stopped anticoagulation. He may need urology workup if bleeding does not stop as needs antiplatelet and anticoagulation agents Shared decision was made with patient and family to proceed with medical therapy as he did not want to change his CODE STATUS back to full code and was in respiratory failure at time of presentation. His WBC count 84,000. Troponin peaked at around 704. ST elevation was more diffuse. Resume anticoagulation as soon as possible. Thank you for involving us with care of this patient. please call with questions. PDMP PDMP Reviewed: Not Reviewed Attestations Medical Necessity Statement*: Care expected to cross 2 midnights. Coding Level of Care Code Acute Code for [facility] Diagnoses ST elevation R94.31 Atrial fibrillation with rapid ventricular response I48.91 Acute renal insufficiency N28.9 Sepsis A41.9 Acute on chronic hypoxic respiratory failure J96.21
--- NOTE | 2025-02-11 20:47 | PC.NURSE ---
Pt complaining of severe left upper quadrant pain. Received pain meds and zofran which was unsuccessful at relieving pain. Contacted Dr. Virk and made aware, new order received to increase frequency of PRN MS to 3 hours.
[2025-02-11] MEDS: sennosides 8.6 mg Tablet 17.2 MG PO (20:50)
[2025-02-11] MEDS: VANCOMYCIN ADD-Vantage 1,000 MG in 0.9% NaCl ADD-Vantage 250 ML 250 MG IV (22:56)
[2025-02-12] VITALS (124 sets, daily range): BP systolic 104–153; BP diastolic 50–83; PULSE 69–92; RESP 17–28; O2SAT 79–100
[2025-02-12] MEDS: sodium chloride 0.9% 1,000 ML 150 ML IV (01:08)
[2025-02-12] MEDS: morphine 4 mg/mL SDV 1 mL 2 MG IVP ×6 (01:16→21:49)
[2025-02-12 03:45] LABS: Alanine Aminotransferase 191 U/L (0-41); Albumin Level 3.3 g/dL (3.5-5.2); Alkaline Phosphatase 152 U/L (40-130); Anion Gap 15.9 (5-19); Aspartate Amino Transferase 258 U/L (0-40); Blood Urea Nitrogen 35 mg/dL (8-23); Carbon Dioxide 27 mmol/L (22-29); Chloride 99 mmol/L (98-107); Globulin 4.5 g/dL (1.3-4.6); Glucose 160 mg/dL (65-115); Osmolality Calculated 295 mOsm/kg (285-295); Potassium 4.9 mmol/L (3.5-5.1); Sodium 137 mmol/L (136-145); Total Bilirubin 0.3 mg/dL (0.15-1.2); Total Protein 7.8 g/dL (6.6-8.7)
[2025-02-12] MEDS: ipratropium-albuterol 3 mL Neb INHALATION ×2 (03:55→07:56)
[2025-02-12] MEDS: meropenem 500 mg SDV IVP ×3 (05:44→20:19)
--- NOTE | 2025-02-12 08:01 | PC.SOCIAL ---
IMM Update pg 2 of IMM Updated and reviewed w/ patient. Copy provided and copy dated, initialed and placed in chart.
--- NOTE | 2025-02-12 08:10 | USCV_ITS ---
BuchananEdson booth Age: 74 Gender: M : 1950 Exam Date: 02/12/2025 09:41 Ordering Phys: Becky Zabala MD Technologist: Exam Location: [facility] [place] Indication: NEW ST BP: 125 / 60 HR: Rhythm: Sinus Technical Quality: Adequate MEASUREMENTS (Male / Female) Normal Values 2D ECHO LV Ejection Fraction MOD 4C 47.9 % LV Ejection Fraction MOD 2C 49.6 % LV Ejection Fraction 2C AL 46.9 % DOPPLER TR Peak Velocity 214.0 cm/s TR Peak Gradient 18.3 mmHg TV Peak E Velocity 83.0 cm/s FINDINGS Left Ventricle Right Ventricle Right Atrium Left Atrium Mitral Valve Aortic Valve Tricuspid Valve Pulmonic Valve Pericardium Aorta IVC CONCLUSIONS Limited echocardiogram performed to assess LV systolic function. Limited quality study however contrast was used to better assess LV systolic function and RV function. LV systolic function is mildly reduced with EF of 45-50%. Mild global hypokinesis RV function is normal Kaz Stafford MD (Electronically Signed) Final Date: 12 February 2025 10:57 S
[2025-02-12 08:56] LABS: Free T4 Free Thyroxine 0.71 ng/dL (0.82-1.77)
--- NOTE | 2025-02-12 09:15 | P.PN_ITS ---
Subjective 2 Subjective: Patient had gross hematuria yesterday while on heparin drip. Heparin was stopped. He had flash pulm edema overnight and was on BiPAP. Saturating well on his baseline 4 L/min O2 this morning. Patient reported chest pain. He initially did not want to pursue cardiac catheterization but is agreeable with this now. He has been accepted for transfer for urology and interventional cardiology at [facility]. He is on the wait list for bed. Vitals/I&O/Wt Last Vital Signs Temp 98.0 F 02/13/25 08:00 Pulse 86 02/13/25 08:00 Resp 21 H 02/13/25 08:00 BP 123/69 02/13/25 08:00 Pulse Ox 95 02/13/25 08:00 O2 Del Method Nasal Cannula 02/13/25 08:00 O2 Flow Rate 4 02/13/25 08:00 FiO2 40 02/11/25 08:00 02/12/25 02/13/25 02/13/25 22:59 06:59 14:59 Intake Total 750 / 1083 Output Total 1949 / 1949 650 / 2600 Balance -1950 / -1617 100 / -1517 Weight last 48 hrs Weight 144.696 kg Weight 145.039 kg Physical Exam 2 Const: COMMON NORMALS: no acute distress and patient oriented x3 HENMT: COMMON NORMALS: normocephalic, atraumatic and moist oral mucous membranes HEAD & SCALP: normocephalic and atraumatic Eye: COMMON NORMALS: Equal, round and reactive pupils present, EOMs intact bilaterally and conjunctivae normal CONJUNCTIVA: Yes conjunctivae normal P UPIL: Yes Equal, round and reactive pupils present Neck/C-Spine: COMMON NORMALS: supple Chest: COMMONS NORMALS: normal inspection of the chest Resp: COMMON NORMALS: normal respiratory effort and clear to auscultation bilaterally AUSCULTATION: clear to auscultation bilaterally Cardio: COMMON NORMALS: regular rate, S1 normal heart sound present, S2 normal heart sound present, No murmurs present (Cardio) and Peripheral pulses 2+ throughout JUGULAR VENOUS DISTENTION: no JVD RATE: regular rate RHYTHM: abnormal rhythm HEART SOUNDS: S1 normal heart sound present and S2 normal heart sound present PERIPHERAL PULSES: Peripheral pulses 2+ throughout GI: COMMON NORMALS: Normal to inspection, nondistended, normoactive bowel sounds present : COMMON NORMALS: Yes no CVA tenderness BLADDER/KIDNEY EXAM: Yes no CVA tenderness Back/Pelvis: COMMON NORMALS: no CVA tenderness Extremity: COMMON NORMALS: no pedal edema Neuro: COMMON NORMALS: patient oriented x3 Psych: COMMON NORMALS: Normal thought process present and cooperative T HOUGHT PROCESS: Normal thought process present Skin: COMMON NORMALS: no rashes or lesions noted GENERAL SKIN EXAM: no rashes or lesions noted Urinary Catheter Management: 3-way Urethral CBI: Cath Placed During This Visit: yes Reason for Continuing Indwelling Catheter: Accurate Measurement of Urinary Output in Critically Ill Patients Urinary Catheter Date of Insertion: 02/11/25 Urinary Catheter Time of Insertion: 13:10 Data 02/13/25 04:11 02/13/25 04:11 Micro: Microbiology 02/11/25 00:20 Urine Culture - Preliminary Urine,Clean Catch Gram Negative Rods A&P Assessment and plan (1) Gross hematuria: Accepted for transfer at [facility] for urology He has a indwelling Robertson catheter which placed about a month ago and changed on day of admission. (2) ST elevation: Elevated troponin with diffuse ST elevations on EKG and admission Patient initially declined cardiac catheterization but is agreeable to this at this time Had gross hematuria with heparin drip which was stopped No bleeding noted today, will restart aspirin for now (3) Atrial fibrillation with rapid ventricular response: A-fib with RVR on admission which has resolved (4) Acute on chronic hypoxic respiratory failure: Acute on chronic hypoxic and hypercapnic failure requiring BiPAP at admission Likely COPD exacerbation and pulmonary edema Saturating well on his baseline 4 L/min O2 at this time Monitor O2 sats closely (5) Acute on chronic HFrEF (heart failure with reduced ejection fraction): Flash pulmonary edema which resolved with BiPAP (6) Sepsis: Severe sepsis present on admission SIRS: Leukocytosis, elevated lactic acid, tachycardia, and hypotension Patient has catheter associated UTI On linezolid and cefepime Follow-up blood and urine cultures (7) Catheter-associated urinary tract infection: Present on admission On antibiotics Follow-up urine culture (8) Lactic acidosis: Present on admission and has resolved (9) Chronic indwelling Robertson catheter: Placed over a month ago and changed on day of admission (10) Acute renal insufficiency: Secondary to sepsis Creatinine improved to 1.4 today, continue to monitor (11) Elevated LFTs: AST 258, ALT 191, alkaline phosphatase 152. Alkaline phosphatase was previously elevated but AST and ALT were normal before Will trend PDMP PDMP Reviewed: Not Reviewed Attestations 2 Medical Necessity Statement*: Patient requires continued hospitalization for IV antibiotics, telemetry monitoring, and continuous O2 monitoring. Also needs urology evaluation for his gross hematuria. Patient to be transferred for this. He ultimately needs cardiac catheterization for his diffuse ST elevation and elevated troponin. Waiting for a bed at [facility]. Time Spent in Patient Care: Total time spent equals 50 minutes. This includes [id number] evaluation, chart review, formulation of plan of care, discussion about plan with patient and nursing staff. Coding Level of Care Code 51187 Diagnoses Gross hematuria R31.0 ST elevation R94.31 Atrial fibrillation with rapid ventricular response I48.91 Acute on chronic hypoxic respiratory failure J96.21 Acute on chronic HFrEF (heart failure with reduced ejection fraction) I50.23 Sepsis A41.9 Catheter-associated urinary tract infection T83.511A; N39.0 Lactic acidosis E87.20 Chronic indwelling Robertson catheter Z97.8 Acute renal insufficiency N28.9 Elevated LFTs R79.89
[2025-02-12 09:18] LABS: Lactate (Lactic Acid level) 1.5 mmol/L (0.5-2.2)
[2025-02-12] MEDS: docusate sodium 100 mg Capsule PO ×2 (09:38→17:05)
[2025-02-12] MEDS: amiodarone 200 mg Tablet PO ×2 (09:38→17:05)
[2025-02-12] MEDS: albumin 25 G/100 ML BAG 60 G IV (09:38)
[2025-02-12] MEDS: VANCOMYCIN ADD-Vantage 1,000 MG in 0.9% NaCl ADD-Vantage 250 ML 250 MG IV ×2 (09:40→21:48)
--- NOTE | 2025-02-12 10:13 | P.PN_ITS ---
Subjective 2 Subjective: Patient has chest discomfort. Says worsens with deep breaths. Echo shows a normal LV systolic function Vitals/I&O/Wt Last Vital Signs Temp 98.9 F 02/11/25 20:30 Pulse 87 02/12/25 07:55 Resp 20 H 02/12/25 07:45 BP 132/62 02/12/25 04:00 Pulse Ox 95 02/12/25 07:45 O2 Del Method Nasal Cannula 02/12/25 07:45 O2 Flow Rate 4 02/12/25 07:45 FiO2 40 02/11/25 08:00 02/11/25 02/12/25 02/12/25 22:59 06:59 14:59 Intake Total 2185.561 / 3425.561 1250 / 4675.561 952.5 / 952.5 Output Total 1900 / 1900 Balance 2185.561 / 3425.561 -650 / 2775.561 952.5 / 952.5 Weight last 48 hrs Weight 319 lb 12.108 oz Weight 318 lb Weight 318 lb Weight 314 lb Physical Exam 2 Narrative: GENERAL: Patient is alert NECK: No jugular vein distension. [] HEENT: No cyanosis. No icterus. No pallor. [] HEART: Regular S1 and S2. Grade 2/6 systolic murmur LUNGS: Diminished air entry bilaterally CENTRAL NERVOUS SYSTEM: Grossly nonfocal. [] EXTREMITIES: Lower extremities with 1+ edema bilaterally. Urinary Catheter Management: 3-way Urethral CBI: Cath Placed During This Visit: yes Reason for Continuing Indwelling Catheter: Accurate Measurement of Urinary Output in Critically Ill Patients Urinary Catheter Date of Insertion: 02/11/25 Urinary Catheter Time of Insertion: 13:10 Data 02/13/25 04:11 02/13/25 04:11 Micro: Microbiology 02/11/25 00:20 Urine Culture - Preliminary Urine,Clean Catch Gram Negative Rods 02/10/25 20:35 Blood Culture - Preliminary Blood NEGATIVE TO DATE 02/10/25 20:55 Blood Culture - Preliminary Blood A&P Assessment and plan (1) ST elevation: (2) Atrial fibrillation with rapid ventricular response: (3) Acute renal insufficiency: (4) Sepsis: (5) Acute on chronic hypoxic respiratory failure: Plan On echocardiogram patient's LV systolic function and RV function are normal. Continue gentle diuresis. Patient's anticoagulation was stopped yesterday because of significant hematuria. Also has drop in hemoglobin. Start aspirin. Monitor H&H. Will be reasonable to transfer for urology workup. Chest pain has both typical and atypical features. Has pleuritic component to it. If pain does not improve, can consider coronary angiogram after urology evaluation and work up. Thank you for involving us with care of this patient. please call with questions. PDMP PDMP Reviewed: Not Reviewed Attestations 2 Medical Necessity Statement*: Care expected to cross 2 midnights. Coding Level of Care Code Acute Code for g Fwd Diagnoses ST elevation R94.31 Atrial fibrillation with rapid ventricular response I48.91 Acute renal insufficiency N28.9 Sepsis A41.9 Acute on chronic hypoxic respiratory failure J96.21
[2025-02-12] MEDS: perflutren protein-a microsphr 0.22 mg/mL SDV 3 mL IV (10:26)
[2025-02-12] MEDS: FUROsemide 10 mg/mL SDV 4mL 40 MG IVP (11:12)
--- NOTE | 2025-02-12 13:47 | PC.NURSE ---
patient appears to be sleeping o2 drop into the 70s patient easy to arouse asked patient to put on bi pap while he was sleeping soundly patient refused patient educated on o2 levels verbalized understanding family entered bedside
[2025-02-12 14:48] LABS: Glucose Point of Care 235 mg/dL (70-110)
[2025-02-12 17:22] LABS: Lactate (Lactic Acid level) 1.3 mmol/L (0.5-2.2)
[2025-02-12] MEDS: clopidogrel 75 mg Tablet PO (18:05)
--- NOTE | 2025-02-12 18:06 | P.TS_ITS ---
Transfer Summary Providers Date of Admission: 02/10/25 21:30 Date of Discharge/Transfer: 02/12/25 Attending Provider at Admission: Coco Virk MD Attending Provider at Transfer: Becky Zabala MD Consults: Inpatient consult to cardiology Inpatient consult to neurology Primary Care Provider: Otilio Huang Transfer Plans: Anticipated date of transfer: 02/12/25 . Receiving Facility: [facility] . Receiving Provider: Dr. Nicolas . Diagnoses at Discharge Discharge Diagnosis (1) Gross hematuria: Status: Acute (2) ST elevation: Status: Acute (3) Atrial fibrillation with rapid ventricular response: Status: Resolved (4) Acute on chronic hypoxic respiratory failure: Status: Resolved (5) Acute on chronic HFrEF (heart failure with reduced ejection fraction): Status: Resolved (6) Sepsis: Status: Acute (7) Catheter-associated urinary tract infection: Status: Acute (8) Lactic acidosis: Status: Acute (9) Chronic indwelling Robertson catheter: Status: Acute (10) Acute renal insufficiency: Status: Resolved Reason for Visit Reason for Visit SOB Brief History: This is a 74-year-old male with COPD, chronic HFrEF, chronic hypoxic respiratory failure (5 L/min O2, unspecified atrial fibrillation, CKD stage III, and chronic indwelling Robertson catheter who presented with acute shortness of breath with respiratory failure and A-fib with RVR. He was hypoxic on his baseline O2 requirement and was initially on BiPAP. Hospital Course Hospital Course He has acute on chronic respiratory failure was likely from acute decompensated HFrEF. He is now saturating well on 4 L/min O2. He was in A-fib with RVR to the 180s on admission. His heart rate is now controlled. He had elevated troponin which trended up. EKG showed diffuse ST elevation. Patient initially did not want cardiac cath. He reports chest pain and is agreeable to cardiac cath at this time. Of note he was started on a heparin drip and developed gross hematuria. About 300 mL of urine blood loss. Heparin has been discontinued and his hematuria has improved significantly. He will be transferred to [facility] for urology and interventional cardiology. He had severe sepsis with tachycardia, leukocytosis and lactic acidosis. His white count has increased to 84,000. He has a chronic indwelling Robertson catheter which was changed at his SNF on the day of his admission. Urine culture is pending. He has been hemodynamically stable. He is on vancomycin and cefepime. He had ANJUM which has resolved. Physical Exam Const: COMMON NORMALS: no acute distress and patient oriented x3 HENMT: COMMON NORMALS: normocephalic, atraumatic and moist oral mucous membranes HEAD & SCALP: normocephalic and atraumatic Eye: COMMON NORMALS: Equal, round and reactive pupils present, EOMs intact bilaterally and conjunctivae normal CONJUNCTIVA: Yes conjunctivae normal PUPIL: Yes Equal, round and reactive pupils present Neck/C-Spine: COMMON NORMALS: supple Chest: COMMONS NORMALS: normal inspection of the chest Resp: COMMON NORMALS: normal respiratory effort and clear to auscultation bilaterally AUSCULTATION: clear to auscultation bilaterally Cardio: COMMON NORMALS: regular rate, S1 normal heart sound present, S2 normal heart sound present, No murmurs present (Cardio) and Peripheral pulses 2+ throughout JUGULAR VENOUS DISTENTION: no JVD RATE: regular rate RHYTHM: abnormal rhythm HEART SOUNDS: S1 normal heart sound present and S2 normal heart sound present PERIPHERAL PULSES: Peripheral pulses 2+ throughout GI: COMMON NORMALS: Normal to inspection, nondistended, normoactive bowel s ounds present : COMMON NORMALS: Yes no CVA tenderness BLADDER/KIDNEY EXAM: Yes no CVA tenderness Back/Pelvis: COMMON NORMALS: no CVA tenderness Extremity: COMMON NORMALS: no pedal edema Neuro: COMMON NORMALS: patient oriented x3 Psych: COMMON NORMALS: Normal thought process present and cooperative THOUGHT PROCESS: Normal thought process present Skin: COMMON NORMALS: no rashes or lesions noted GENERAL SKIN EXAM: no rashes or lesions noted Urinary Catheter Management: 3-way Urethral CBI: Cath Placed During This Visit: yes Reason for Continuing Indwelling Catheter: Chronic Indwelling Urinary Catheter on Admission Urinary Catheter Date of Insertion: 02/11/25 Urinary Catheter Time of Insertion: 13:10 TS Data Studies Completed and Pending Pending at discharge Category Date Time Status Blood Culture Stat Lab 02/10/25 20:35 Results Comprehensive Metabolic Panel AM LABS Lab 02/13/25 04:00 Ordered Platelet Count Q2D Lab 02/13/25 04:00 Ordered Platelet Count Q2D Lab 02/15/25 04:00 Ordered Urine Culture Stat Lab 02/11/25 00:20 Results Completed Studies During Hospitalization Category Date Time Status XR chest 1V portable [id number] Stat Exams 02/10/25 19:58 Completed CV. echo lmt wo/w con w color Routine Ultrasound 02/12/25 08:10 Completed Laboratory Last Values WBC 84.43 10^3/uL (3.29-11.43) H* 02/11/25 02:37 RBC 3.89 10^6/uL (3.85-5.65) 02/11/25 02:37 Hgb 9.10 g/dL (11.27-16.99) L 02/11/25 02:37 Hct 32.4 % (37-53) L 02/11/25 02:37 MCV 83.3 fl (82-101) 02/11/25 02:37 MCH 23.4 pg (27-33) L 02/11/25 02:37 MCHC 28.1 g/dL (30-55) L 02/11/25 02:37 RDW 18.1 % (12.1-15.1) H 02/11/25 02:37 Plt Count 348 10^3/cmm (157-399) 02/11/25 02:37 MPV 9.2 fL (7.4-10.4) 02/11/25 02:37 Neut % (Auto) 94.7 % 02/10/25 20:13 Lymph % (Auto) Not Reportable 02/11/25 02:37 Clinch % (Auto) Not Reportable 02/11/25 02:37 Eos % (Auto) 0.4 % 02/10/25 20:13 Baso % (Auto) 0.2 % 02/10/25 20:13 Neut # (Auto) 32.06 10^3/uL (1.8-7.7) H 02/10/25 20:13 Lymph # (Auto) Not Reportable 02/11/25 02:37 Clinch # (Auto) Not Reportable 02/11/25 02:37 Eos # (Auto) 0.1 10^3/uL (0.0-0.8) 02/10/25 20:13 Baso # (Auto) 0.1 10^3/uL (0.0-0.1) 02/10/25 20:13 Nucleated RBC % (auto) 0.1 % 02/10/25 20:13 Total Counted 100 (0-100) 02/11/25 02:37 Atypical Lymphs % 0.0 % (0-5) 02/11/25 02:37 Absolute Neutrophils 609.6 10^3/cmm (1.4-6.5) H 02/11/25 02:37 Segmented Neutrophils 701 % 02/11/25 02:37 Band Neutrophils 21.0 % 02/11/25 02:37 Absolute Lymphocytes 0.8 10^3/cmm (1.2-3.4) L 02/11/25 02:37 Lymphocytes (Manual) 1 % 02/11/25 02:37 Monocytes (Manual) 1.0 % 02/11/25 02:37 Absolute Monocytes 0.8 10^3/cmm (0.1-0.6) H 02/11/25 02:37 Eosinophils (Manual) 0 % 02/11/25 02:37 Absolute Eosinophils 0.0 10^3/cmm (0.0-0.7) 02/11/25 02:37 Basophils (Manual) 0.0 % 02/11/25 02:37 Absolute Basophils 0.0 10^3/cmm (0.0-0.2) 02/11/25 02:37 Metamyelocytes 5.0 % 02/11/25 02:37 Myelocytes 2.0 % 02/11/25 02:37 Nucleated RBCs # 0.0 /100WBC 02/10/25 20:13 Platelet Estimate Normal (Normal) 02/11/25 02:37 Giant Platelets Trace 02/11/25 02:37 Anisocytosis 1+ H 02/11/25 02:37 APTT 96.9 SECONDS (23.9-36.7) H D 02/11/25 11:44 Specimen Type Arterial 02/10/25 20:00 Sample Site Radial, left 02/10/25 20:00 ABG pH 7.31 (7.35-7.45) L 02/10/25 20:00 ABG pCO2 48.3 mmHg (35-45) H 02/10/25 20:00 ABG pO2 216.0 mmHg (80.0-100.0) H 02/10/25 20:00 ABG PO2/FiO2 Ratio 270 02/10/25 20:00 ABG HCO3 24.5 mmol/L (22-26) 02/10/25 20:00 ABG O2 Saturation > 99.1 02/10/25 20:00 ABG Base Excess -1.9 mmol/L (-2.0-2.0) 02/10/25 20:00 Ivan Test Pos 02/10/25 20:00 A-a O2 Gradient 37.4 mmHg (5-10) H 02/10/25 20:00 Hematocrit 31.4 % (42-52) L 02/10/25 20:00 Hgb O2 Saturation 97.9 % (95-100) 02/10/25 20:00 Carboxyhemoglobin 1.2 %THgb (0.4-20.1) 02/10/25 20:00 Methemoglobin 1.0 % (0.4-1.5) 02/10/25 20:00 Total Hemoglobin 10.2 g/dL (14-18) L 02/10/25 20:00 Sodium 135.0 mmol/L (131-143) 02/10/25 20:00 Potassium 5.0 mmol/L (3.5-5.0) 02/10/25 20:00 Glucose 228.0 mg/dL (70-115) H 02/10/25 20:00 Ionized Calcium 1.1 mmol/L (1.1-1.4) 02/10/25 20:00 O2 Delivery Device Bipap 02/10/25 20:00 FiO2 80.0 % 02/10/25 20:00 Sales And Service Engineer ID [id number] 02/10/25 20:00 Sodium 137 mmol/L (136-145) 02/12/25 02:39 Potassium 4.9 mmol/L (3.5-5.1) 02/12/25 02:39 Chloride 99 mmol/L (98-107) 02/12/25 02:39 Carbon Dioxide 27 mmol/L (22-29) 02/12/25 02:39 Anion Gap 15.9 (5-19) 02/12/25 02:39 BUN 35 mg/dL (8-23) H 02/12/25 02:39 Creatinine 1.4 mg/dL (0.7-1.2) H 02/12/25 02:39 GFR Calculation Not Reportable 02/12/25 02:39 Glucose 160 mg/dL (65-115) H 02/12/25 02:39 POC Glucose 235 mg/dL (70-110) H 02/10/25 20:04 Estimat Average Glucose 111 02/11/25 02:37 Hemoglobin A1c 5.5 % (4.0-6.0) 02/11/25 02:37 Calculated Osmolality 295 mOsm/kg (285-295) 02/12/25 02:39 Lactic Acid 4.1 mmol/L (0.5-2.2) H* 02/11/25 05:42 Lactic Acid (Sepsis) 4.3 mmol/L (0.5-2.2) H* 02/11/25 08:50 Lactate 1.3 mmol/L (0.5-2.2) 02/12/25 16:59 Calcium 8.0 mg/dL (8.5-10.5) L 02/12/25 02:39 Phosphorus 2.8 mg/dL (2.5-4.5) 02/11/25 02:37 Magnesium 1.9 mg/dL (1.7-2.3) 02/11/25 02:37 Total Bilirubin 0.3 mg/dL (0.15-1.2) 02/12/25 02:39 AST 258 U/L (0-40) H 02/12/25 02:39 ALT 191 U/L (0-41) H 02/12/25 02:39 Alkaline Phosphatase 152 U/L (40-130) H 02/12/25 02:39 Troponin T Baseline 258 ng/L (0-15) H* 02/10/25 20:13 Troponin T 120 Minute 500.1 ng/L (0-15) H 02/10/25 22:35 Delta Troponin T 242.1 ABS# (0-10) H* 02/10/25 22:35 Troponin T Hi Sens 6Hr 704.8 ng/L (0-15) H 02/11/25 02:37 Troponin T Hi Sens 6Hr Delta 446.8 ng/L (0-12) H* 02/11/25 02:37 C-Reactive Protein 38.4 mg/L (0.0-4.9) H 02/10/25 20:42 NT-Pro-B Natriuret Pep 3609 pg/mL (0-125) H 02/11/25 02:37 Total Protein 7.8 g/dL (6.6-8.7) 02/12/25 02:39 Albumin 3.3 g/dL (3.5-5.2) L 02/12/25 02:39 Globulin 4.5 g/dL (1.3-4.6) 02/12/25 02:39 Triglycerides 112 mg/dL (0-150) 02/11/25 02:37 Cholesterol 132 mg/dL (0-200) 02/11/25 02:37 LDL Cholesterol, Calc 67 mg/dL (50-129) 02/11/25 02:37 HDL Cholesterol 43 mg/dL (60-100) L 02/11/25 02:37 LDL/HDL Ratio 1.56 RATIO (0.00-3.22) 02/11/25 02:37 Cholesterol/HDL Ratio 3.07 mg/dL (1.0-5.00) 02/11/25 02:37 25-OH Vitamin D Total 36 ng/mL (30-100) 02/11/25 02:37 Procalcitonin > 100.00 ng/mL (0-0.5) H 02/11/25 02:37 TSH 5.06 uIU/mL (0.27-4.20) H 02/11/25 02:37 Free T4 0.71 ng/dL (0.82-1.77) L 02/12/25 02:39 Urine Color Yellow (Yellow) 02/11/25 00:20 Urine Appearance Clear (CLEAR) 02/11/25 00:20 Urine pH 8.0 (5-7) A 02/11/25 00:20 Ur Specific [place] 1.013 (1.005-1.030) 02/11/25 00:20 Urine Protein Trace (Negative) A 02/11/25 00:20 Urine Glucose (UA) Negative (Normal) 02/11/25 00:20 Urine Ketones Negative (Negative) 02/11/25 00:20 Urine Blood 2+ (Negative) A 02/11/25 00:20 Urine Nitrate Positive (Negative) A 02/11/25 00:20 Urine Bilirubin Negative (Negative) 02/11/25 00:20 Urine Urobilinogen 0.2 mg/dL (Negative) 02/11/25 00:20 Ur Leukocyte Esterase 2+ (Negative) A 02/11/25 00:20 Urine RBC >100 /hpf (0-2) H 02/11/25 00:20 Urine WBC 51-100 /hpf (0-5) H 02/11/25 00:20 Ur Squamous Epith Cells 0-5 /hpf (0-5) 02/11/25 00:20 Amorphous Sediment Not Reportable 02/11/25 00:20 Urine Bacteria 4+ /hpf (NONE) H 02/11/25 00:20 Hyaline Casts 46.74 /lpf 02/11/25 00:20 Influenza A (PCR) Negative (Negative) 02/10/25 20:35 Influenza Type B (PCR) Negative (Negative) 02/10/25 20:35 RSV (PCR) Negative (Negative) 02/10/25 20:35 SARS-CoV-2 (PCR) Negative (Negative) 02/10/25 20:35 Radiology Impressions Chest X-Ray 02/10/25 19:58 IMPRESSION: No definitive acute cardiopulmonary disease. Recent Clincial Data Last Vital Signs Temp 98.9 F 02/11/25 20:30 Pulse 87 02/12/25 16:45 Resp 22 H 02/12/25 17:04 BP 119/61 02/12/25 17:45 Pulse Ox 97 02/12/25 17:45 O2 Del Method Nasal Cannula 02/12/25 07:45 O2 Flow Rate 4 02/12/25 07:45 FiO2 40 02/11/25 08:00 Vital Signs Pulse Resp BP Pulse Ox O2 Del Method O2 Flow Rate 02/12/25 17:45 119/61 97 02/12/25 17:30 115/60 96 02/12/25 17:15 128/66 97 02/12/25 17:04 22 H 02/12/25 17:00 139/76 96 02/12/25 16:45 87 17 134/76 98 02/12/25 16:30 79 20 H 126/71 99 02/12/25 16:15 82 22 H 143/77 97 02/12/25 16:00 83 25 H 133/63 98 02/12/25 15:45 82 24 H 133/74 98 02/12/25 15:30 73 24 H 123/62 97 02/12/25 15:15 84 24 H 143/66 96 02/12/25 15:00 85 25 H 127/73 95 02/12/25 14:45 83 25 H 124/69 97 02/12/25 14:30 83 23 H 126/66 98 02/12/25 14:15 84 19 H 121/72 96 02/12/25 14:08 84 25 H 121/72 92 02/12/25 13:45 82 25 H 128/76 85 L 02/12/25 13:30 82 21 H 136/74 99 02/12/25 13:15 83 22 H 118/65 99 02/12/25 13:00 85 21 H 122/61 90 02/12/25 12:45 80 22 H 142/72 82 L 02/12/25 12:30 84 26 H 123/59 90 02/12/25 12:15 83 23 H 118/60 91 02/12/25 12:00 85 23 H 135/75 92 02/12/25 11:48 85 26 H 135/75 98 02/12/25 11:15 85 24 H 132/83 93 02/12/25 11:11 24 H 02/12/25 11:00 86 25 H 129/69 94 02/12/25 10:45 82 26 H 138/77 98 02/12/25 10:30 85 24 H 115/56 94 02/12/25 10:15 85 21 H 128/73 92 02/12/25 10:00 85 22 H 125/60 02/12/25 09:45 87 25 H 135/70 96 02/12/25 09:30 90 25 H 125/58 93 02/12/25 09:15 91 26 H 122/54 91 02/12/25 09:00 91 22 H 153/76 97 02/12/25 08:45 92 28 H 130/72 100 02/12/25 08:30 92 25 H 147/71 91 02/12/25 08:15 89 24 H 132/64 93 02/12/25 08:00 87 26 H 139/81 93 02/12/25 07:55 87 02/12/25 07:45 83 25 H 136/78 100 02/12/25 07:45 86 20 H 95 Nasal Cannula 4 02/12/25 07:30 84 25 H 137/75 97 02/12/25 07:15 86 25 H 137/74 96 02/12/25 07:00 84 24 H 148/78 94 Intake & Output/Weight 02/10/25 02/11/25 02/12/25 02/13/25 06:59 06:59 06:59 06:59 Intake Total 1154.439 / 6194.262 3982.561 / 4675.561 333 / 333 Output Total 500 / 500 1900 / 1900 Balance 654.439 / 857.244 2032.561 / 2775.561 333 / 333 Weight 144.242 kg 145.039 kg Vitals Last Vital Signs Temp 98.9 F 02/11/25 20:30 Pulse 87 02/12/25 16:45 Resp 22 H 02/12/25 17:04 BP 119/61 02/12/25 17:45 Pulse Ox 97 02/12/25 17:45 O2 Del Method Nasal Cannula 02/12/25 07:45 O2 Flow Rate 4 02/12/25 07:45 FiO2 40 02/11/25 08:00 TS Medications Medications Acetaminophen (Acetaminophen 325 Mg Tablet) 650 mg PO Q6H PRN PRN Reason: Mild/Mod Pain Or Temp >/= 101 Albuterol/Ipratropium (Ipratropium-Albuterol 3 Ml Neb) 3 ml INHALATION Q6H.RESP PRN PRN Reason: SHORTNESS OF BREATH Amiodarone HCl (Amiodarone 200 Mg Tablet) 200 mg PO BID [facility] Last Admin: 02/12/25 17:05 Dose: 200 mg Clopidogrel Bisulfate (Clopidogrel 75 Mg Tablet) 75 mg PO DAILY [facility] Last Admin: 02/12/25 18:05 Dose: 75 mg Docusate Sodium (Docusate Sodium 100 Mg Capsule) 100 mg PO BID [facility] Last Admin: 02/12/25 17:05 Dose: 100 mg Heparin Sodium (Porcine) (Heparin 5,000 Unit/Ml Inj 1 Ml) 0 unit IVP PRN PRN; Protocol PRN Reason: Heparin Weight Based Protocol -Subsequent Bolus Sodium Chloride (Sodium Chloride 0.9%) 1,000 mls @ 150 mls/hr IV .Q6H40M [facility] Last Admin: 02/12/25 15:29 Dose: Not Given Heparin Sodium/Sodium Chloride (Heparin Drip) 25,000 unit in 500 mls @ 0 mls/hr IV CONT [facility]; Protocol On Hold: 02/11/25 13:51 Last Admin: 02/11/25 05:20 Dose: 14.21 unit/kg/hr, 41 mls/hr Vancomycin HCl 1,000 mg/ (Sodium Chloride) 250 mls @ 250 mls/hr IV Q12H [facility] Last Infusion: 02/12/25 11:00 Dose: Infused Albumin Human (Albumin) 25 gm in 100 mls @ 60 mls/hr IV Q12H [facility] Meropenem (Meropenem 500 Mg Sdv) 500 mg IVP Q8H [facility]; Protocol Last Admin: 02/12/25 15:21 Dose: 500 mg Morphine Sulfate (Morphine 4 Mg/Ml Sdv 1 Ml) 2 mg IVP Q3H PRN PRN Reason: SEVERE PAIN Last Admin: 02/12/25 17:04 Dose: 2 mg Ondansetron HCl (Ondansetron 2 Mg/Ml Sdv 2 Ml) 4 mg IVP Q8H PRN PRN Reason: vomiting, or N/V if npo Last Admin: 02/11/25 19:25 Dose: 4 mg Pantoprazole Sodium (Pantoprazole 40 Mg Sdv) 40 mg IVP Q24H [facility] Last Admin: 02/11/25 22:57 Dose: 40 mg Prochlorperazine (Prochlorperazine 10 Mg Tablet) 5 mg PO Q6H PRN PRN Reason: N/V Senna (Sennosides 8.6 Mg Tablet) 17.2 mg PO BEDTIME [facility] Last Admin: 02/11/25 20:50 Dose: 17.2 mg Discontinued Medications Albuterol/Ipratropium (Ipratropium-Albuterol 3 Ml Neb) 3 ml INHALATION Q4H.RESPIRATORY [facility] Last Admin: 02/12/25 07:56 Dose: 3 ml Amiodarone HCl (Amiodarone 50 Mg/Ml Sdv 3 Ml) 150 mg IVP ONCE ONE Stop: 02/10/25 20:08 Last Admin: 02/10/25 20:14 Dose: 150 mg Furosemide (Furosemide 10 Mg/Ml Sdv 4ml) 40 mg IVP ONCE ONE Stop: 02/12/25 10:21 Last Admin: 02/12/25 11:12 Dose: 40 mg Heparin Sodium (Porcine) (Heparin 5,000 Unit/Ml Inj 1 Ml) 0 unit IVP ONCE ONE; Protocol Stop: 02/11/25 05:02 Last Admin: 02/11/25 05:20 Dose: 7,000 unit Sodium Chloride (Sodium Chloride 0.9%) 1,000 mls @ 999 mls/hr IV .Q1H1M ONE Stop: 02/10/25 21:10 Last Admin: 02/10/25 21:18 Dose: Not Given Sodium Chloride (Sodium Chloride 0.9%) 1,000 mls @ 999 mls/hr IV .Q1H1M ONE Stop: 02/10/25 21:10 Last Admin: 02/10/25 21:18 Dose: Not Given Amiodarone HCl/Dextrose (Nexterone) 360 mg in 200 mls @ 0 mls/hr IV .Q0M [facility]; Protocol Last Titration: 02/11/25 20:12 Dose: Infused Linezolid (Zyvox Premix) 600 mg in 300 mls @ 300 mls/hr IV ONCE ONE; Protocol Stop: 02/10/25 21:25 Last Infusion: 02/10/25 23:58 Dose: Infused Sodium Chloride (Sodium Chloride 0.9%) 500 mls @ 999 mls/hr IV .Q31M STA Stop: 02/10/25 21:23 Last Infusion: 02/10/25 23:58 Dose: Infused Sodium Chloride (Sodium Chloride 0.9%) 1,000 mls @ 999 mls/hr IV .Q1H1M ONE Stop: 02/10/25 23:42 Last Admin: 02/11/25 01:03 Dose: Not Given Meropenem 500 mg/ Sodium (Chloride) 50 mls @ 100 mls/hr IV Q8H [facility]; Protocol Doxycycline Hyclate 100 mg/ N/ (A) 0 mls @ 0 mls/hr IV Q12H [facility]; Protocol Doxycycline Hyclate 100 mg/ (Sodium Chloride) 100 mls @ 100 mls/hr IV Q12H [facility] Last Infusion: 02/11/25 02:41 Dose: Infused Albumin Human (Albumin) 25 g in 100 mls @ 60 mls/hr IV Q12H [facility] Last Infusion: 02/12/25 11:01 Dose: Infused Vancomycin HCl / Sodium (Chloride) 250 mls @ 0 mls/hr [id number] PROTOCOL [facility]; Protocol Vancomycin HCl (Vancocin) 3,000 mg in 600 mls @ 200 mls/hr IV ONCE ONE Stop: 02/11/25 13:29 Last Infusion: 02/11/25 16:35 Dose: Infused Sodium Chloride (Sodium Chloride 0.9%) 1,000 mls @ 999 mls/hr IV .Q1H1M ONE Stop: 02/11/25 12:05 Last Infusion: 02/11/25 16:35 Dose: Infused Meropenem (Meropenem 500 Mg Sdv) 500 mg IVP ONCE ONE; Protocol Stop: 02/10/25 20:27 Last Admin: 02/10/25 20:46 Dose: 500 mg Methylprednisolone Sodium Succinate (Methylprednisolone Sod Succ 40 Mg/Ml Inj) 40 mg IVP Q12H [facility] Last Admin: 02/11/25 00:31 Dose: 40 mg Morphine Sulfate (Morphine 4 Mg/Ml Sdv 1 Ml) 2 mg IVP Q4H PRN PRN Reason: SEVERE PAIN Last Admin: 02/11/25 18:32 Dose: 2 mg Perflutren Protein Type A Microsphe (Perflutren Protein-A Microsphr 0.22 Mg/Ml Sdv 3 Ml) 0 ml IV ONCE ONE Stop: 02/12/25 09:55 Last Admin: 02/12/25 10:26 Dose: 3 ml Allergies broccoli Allergy (Verified 02/10/25 20:12) ADR-Vomiting Home Medications albuterol sulfate 90 mcg/actuation aerosol inhaler 2 puff inhalation Q4H PRN Shortness Of Breath Or Wheezing 11/02/24 [History Confirmed 02/11/25] aluminum-mag hydroxide-simethicone 400 mg-400 mg-40 mg/5 mL oral susp (Mylanta Maximum Strength) 30 ml PO Q2H PRN indigeston/heartburn/gas 11/02/24 [History Confirmed 02/11/25] apixaban 5 mg tablet (Eliquis) 5 mg PO BID 11/02/24 [History Confirmed 02/11/25] Held on 01/31/25. Instructions: Resume on 02/24/25. hold until you see surgery bisacodyl 10 mg rectal suppository 10 mg OK .Q72H PRN Constipation 11/02/24 [History Confirmed 02/11/25] docusate sodium 100 mg capsule (Colace) 100 mg PO BID 11/02/24 [History Confirmed 02/11/25] ergocalciferol (vitamin D2) 1,250 mcg (50,000 unit) capsule 50,000 mcg PO Q7D 11/02/24 [History Confirmed 02/11/25] fluoxetine 40 mg capsule 40 mg PO DAILY 11/02/24 [History Confirmed 02/11/25] fluticasone fur. 200 mcg-umeclid 62.5 mcg-vilant 25 mcg inhalat.powder (Trelegy Ellipta) 1 inh inhalation DAILY 11/02/24 [History Confirmed 02/11/25] magnesium hydroxide 400 mg/5 mL oral suspension (Milk of Magnesia) 30 ml PO DAILY PRN Constipation 11/02/24 [History Confirmed 02/11/25] multivitamin 1 tab PO QAM 11/02/24 [History Confirmed 02/11/25] omeprazole 20 mg tablet,delayed release 20 mg PO DAILY 11/02/24 [History Confirmed 02/11/25] polyethylene glycol 3350 17 gram/dose oral powder (Miralax) 17 g PO DAILY PRN bowel management 11/02/24 [History Confirmed 02/11/25] sennosides 8.6 mg tablet (senna) 8.6 mg PO DAILY 11/02/24 [History Confirmed 02/11/25] spironolactone 50 mg tablet 50 mg PO DAILY 11/02/24 [History Confirmed 02/11/25] bumetanide 1 mg tablet 1 mg PO BIDAC #60 tabs 11/06/24 [Rx Confirmed 02/11/25] Right cockup splint #1 ea 11/28/24 [Rx Confirmed 02/11/25] acetaminophen 325 mg tablet (Tylenol) 650 mg PO Q4H PRN general discomfort 12/06/24 [History Confirmed 02/11/25] levothyroxine 25 mcg tablet 25 mcg PO DAILY 12/06/24 [History Confirmed 02/11/25] melatonin 1 mg tablet 3 mg PO BEDTIME 12/06/24 [History Confirmed 02/11/25] melatonin 5 mg tablet 5 mg PO BEDTIME 12/06/24 [History Confirmed 02/11/25] gabapentin 400 mg capsule 400 mg PO BID neuropathy 01/28/25 [History Confirmed 02/11/25] loperamide 2 mg tablet (Imodium A-D) 2 mg PO Q6H PRN Diarrhea 01/28/25 [History Confirmed 02/11/25] oxycodone-acetaminophen 10 mg-325 mg tablet 1 tab PO Q6H PRN Pain 01/28/25 [History Confirmed 02/11/25] protein supplement See Rx Instructions .Route .COMPLEX 01/28/25 [History Confirmed 02/11/25] semaglutide 1 mg/dose (4 mg/3 mL) subcutaneous pen injector (Ozempic) 1 mg SUBCUT Q7D 01/28/25 [History Confirmed 02/11/25] pantoprazole 40 mg tablet,delayed release (Protonix) 40 mg PO BID 30 days #60 tabs 01/31/25 [Rx Confirmed 02/11/25] potassium chloride 20 mEq tablet,extended release(part/cryst) (Klor-Con M) 10 meq (1/2 x 20 mEq) PO BID 30 days #30 tabs 01/31/25 [Rx Confirmed 02/11/25] sucralfate 1 gram tablet 1 g PO Q12H 30 days #60 tabs 01/31/25 [Rx Confirmed 02/11/25] prednisone 20 mg tablet 40 mg PO DAILY 02/11/25 [History Confirmed 02/11/25] Discharge Plan Discharge Patient Disposition: Other Inst w Plan Readm Condition: Stable Prescriptions: No Action (DME) Right cockup splint See Rx Instructions .Route .MEDSUPPLY Qty: 1 0RF Rx Instructions: As directed acetaminophen [Tylenol] 325 mg Tablet 650 mg PO Q4H PRN (Reason: general discomfort) levothyroxine 25 mcg Tablet 25 mcg PO DAILY melatonin 1 mg Tablet 3 mg PO BEDTIME Rx Instructions: with 5mg to=8 mg total melatonin 5 mg Tablet 5 mg PO BEDTIME Rx Instructions: with 3x1mg to=8 mg total prednisone 20 mg tablet 40 mg PO DAILY multivitamin Tablet 1 tab PO QAM fluoxetine 40 mg capsule 40 mg PO DAILY sennosides [senna] 8.6 mg Tablet 8.6 mg PO DAILY magnesium hydroxide [Milk of Magnesia] 400 mg/5 mL Suspension 30 ml PO DAILY PRN (Reason: Constipation) bisacodyl 10 mg Suppository 10 mg OK .Q72H PRN (Reason: Constipation) docusate sodium [Colace] 100 mg Capsule 100 mg PO BID ergocalciferol (vitamin D2) 1,250 mcg (50,000 unit) capsule 50,000 mcg PO Q7D Rx Instructions: polyethylene glycol 3350 [Miralax] 17 gram/dose Powder 17 g PO DAILY PRN (Reason: bowel management) albuterol sulfate 90 mcg/actuation HFA aerosol inhaler 2 puff INHALATION Q4H PRN (Reason: Shortness Of Breath Or Wheezing) alum-mag hydroxide-simeth [Mylanta Maximum Strength] 400-400-40 mg/5 mL Suspension 30 ml PO Q2H PRN (Reason: indigeston/heartburn/gas) spironolactone 50 mg tablet 50 mg PO DAILY omeprazole 20 mg Tablet,Delayed Release (Dr/Ec) 20 mg PO DAILY Eliquis 5 mg tablet 5 mg PO BID Trelegy Ellipta 200-62.5-25 mcg blister with device 1 inh INHALATION DAILY bumetanide 1 mg tablet 1 mg PO BIDAC Qty: 60 0RF gabapentin 400 mg capsule 400 mg PO BID loperamide [Imodium A-D] 2 mg Tablet 2 mg PO Q6H PRN (Reason: Diarrhea) oxycodone-acetaminophen 10-325 mg tablet 1 tab PO Q6H PRN (Reason: Pain) protein supplement Liquid See Rx Instructions .ROUTE .COMPLEX Rx Instructions: Give 30 ml by mouth once daily for wound healing. Ozempic 1 mg/dose (4 mg/3 mL) pen injector 1 mg SUBCUT Q7D Rx Instructions: sucralfate 1 gram Tablet 1 g PO Q12H 30 Days Qty: 60 0RF pantoprazole [Protonix] 40 mg tablet,delayed release (DR/EC) 40 mg PO BID 30 Days Qty: 60 0RF potassium chloride [Klor-Con M20] 20 mEq tablet,ER particles/crystals 10 meq PO BID 30 Days Qty: 30 0RF Discharge Orders: Transfer Out of Facility (Order); Ordered 02/12/25 Ordered By: Becky Zabala Referrals: Otilio Huang [Primary Care Provider, Internal Medicine] Michelle Sandhu MD [Physician, Cardiology] Discharge Diet: Cardiac Discharge Activity: Resume usual activity Transfer Attestations Time Spent in Transfer Care: greater than 30 min Quality Metrics Clinical Quality Measures [ Acute Myocardial Infaction { Clinical Trial Participant: No; Contraindication to aspirin: Other (Gross hematuria. Patient to be transferred); Contraindication to statin: Patient transfer;}] Coding Level of Care Code Acute Code for Chg Fwd Diagnoses Gross hematuria R31.0 ST elevation R94.31 Atrial fibrillation with rapid ventricular response I48.91 Acute on chronic hypoxic respiratory failure J96.21 Acute on chronic HFrEF (heart failure with reduced ejection fraction) I50.23 Sepsis A41.9 Catheter-associated urinary tract infection T83.511A; N39.0 Lactic acidosis E87.20 Chronic indwelling Robertson catheter Z97.8 Acute renal insufficiency N28.9
[2025-02-12 19:46] LABS: Troponin T (5th) Once 2453 ng/L (0-15)
--- NOTE | 2025-02-12 19:48 | P.TS_ITS ---
Transfer Summary Providers Date of Admission: 02/10/25 21:30 Date of Discharge/Transfer: 02/12/25 Attending Provider at Admission: Coco Virk MD Attending Provider at Transfer: Becky Zabala MD Primary Care Provider: Otilio Huang Transfer Plans: Anticipated date of transfer: 02/12/25 . Receiving Facility: [facility] . Receiving Provider: Dr. Ronel Tom . Diagnoses at Discharge Discharge Diagnosis (1) Gross hematuria: Status: Acute (2) ST elevation: Status: Acute (3) Atrial fibrillation with rapid ventricular response: Status: Resolved (4) Acute on chronic hypoxic respiratory failure: Status: Resolved (5) Acute on chronic HFrEF (heart failure with reduced ejection fraction): Status: Resolved (6) Sepsis: Status: Acute (7) Catheter-associated urinary tract infection: Status: Acute (8) Lactic acidosis: Status: Acute (9) Chronic indwelling Robertson catheter: Status: Acute (10) Acute renal insufficiency: Status: Resolved Reason for Visit Reason for Visit SOB Hospital Course Hospital Course He has acute on chronic respiratory failure was likely from acute decompensated HFrEF. He is now saturating well on 4 L/min O2. He was in A-fib with RVR to the 180s on admission. His heart rate is now controlled. He had elevated troponin which trended up. EKG showed diffuse ST elevation. Patient initially did not want cardiac cath. He reports chest pain and is agreeable to cardiac cath at this time. Of note he was started on a heparin drip and developed gross hematuria. About 300 mL of urine blood loss. Heparin has been discontinued and his hematuria has improved significantly. He will be transferred to [facility] for urology and interventional cardiology. He had severe sepsis with tachycardia, leukocytosis and lactic acidosis. His white count has increased to 84,000. He has a chronic indwelling Robertson catheter which was changed at his SNF on the day of his admission. Urine culture is pending. He has been hemodynamically stable. He is on vancomycin and cefepime. He had ANJUM which has resolved. Physical Exam Const: COMMON NORMALS: no acute distress and patient oriented x3 HENMT: COMMON NORMALS: normocephalic, atraumatic and moist oral mucous membranes HEAD & SCALP: normocephalic and atraumatic Eye: COMMON NORMALS: Equal, round and reactive pupils present, EOMs intact bilaterally and conjunctivae normal CONJUNCTIVA: Yes conjunctivae normal PUPIL: Yes Equal, round and reactive pupils present Neck/C-Spine: COMMON NORMALS: supple Chest: COMMONS NORMALS: normal inspection of the chest Resp: COMMON NORMALS: normal respiratory effort and clear to auscultation bilaterally AUSCULTATION: clear to auscultation bilaterally Cardio: COMMON NORMALS: regular rate, S1 normal heart sound present, S2 normal heart sound present, No murmurs present (Cardio) and Peripheral pulses 2+ throughout JUGULAR VENOUS DISTENTION: no JVD RATE: regular rate RHYTHM: abnormal rhythm HEART SOUNDS: S1 normal heart sound present and S2 normal heart sound present PERIPHERAL PULSES: Peripheral pulses 2+ throughout GI: COMMON NORMALS: Normal to inspection, nondistended, normoactive bowel sounds present : COMMON NORMALS: Yes no CVA tenderness BLADDER/KIDNEY EXAM: Yes no CVA tenderness Back/Pelvis: COMMON NORMALS: no CVA tenderness Extremity: COMMON NORMALS: no pedal edema Neuro: COMMON NORMALS: patient oriented x3 Psych: COMMON NORMALS: Normal thought process present and cooperative THOUGHT PROCESS: Normal thought process present Skin: COMMON NORMALS: no rashes or lesions noted GENERAL SKIN EXAM: no rashes or lesions noted Urinary Catheter Management: 3-way Urethral CBI: Cath Placed During This Visit: yes Reason for Continuing Indwelling Catheter: Chronic Indwelling Urinary Catheter on Admission Urinary Catheter Date of Insertion: 02/11/25 Urinary Catheter Time of Insertion: 13:10 TS Data Studies Completed and Pending Pending at discharge Category Date Time Status Blood Culture Stat Lab 02/10/25 20:35 Results Comprehensive Metabolic Panel AM LABS Lab 02/13/25 04:00 Ordered Platelet Count Q2D Lab 02/13/25 04:00 Ordered Platelet Count Q2D Lab 02/15/25 04:00 Ordered Urine Culture Stat Lab 02/11/25 00:20 Results Completed Studies During Hospitalization Category Date Time Status XR chest 1V portable [id number] Stat Exams 02/10/25 19:58 Completed CV. echo lmt wo/w con w color Routine Ultrasound 02/12/25 08:10 Completed Laboratory Last Values WBC 84.43 10^3/uL (3.29-11.43) H* 02/11/25 02:37 RBC 3.89 10^6/uL (3.85-5.65) 02/11/25 02:37 Hgb 9.10 g/dL (11.27-16.99) L 02/11/25 02:37 Hct 32.4 % (37-53) L 02/11/25 02:37 MCV 83.3 fl (82-101) 02/11/25 02:37 MCH 23.4 pg (27-33) L 02/11/25 02:37 MCHC 28.1 g/dL (30-55) L 02/11/25 02:37 RDW 18.1 % (12.1-15.1) H 02/11/25 02:37 Plt Count 348 10^3/cmm (157-399) 02/11/25 02:37 MPV 9.2 fL (7.4-10.4) 02/11/25 02:37 Neut % (Auto) 94.7 % 02/10/25 20:13 Lymph % (Auto) Not Reportable 02/11/25 02:37 Williamson % (Auto) Not Reportable 02/11/25 02:37 Eos % (Auto) 0.4 % 02/10/25 20:13 Baso % (Auto) 0.2 % 02/10/25 20:13 Neut # (Auto) 32.06 10^3/uL (1.8-7.7) H 02/10/25 20:13 Lymph # (Auto) Not Reportable 02/11/25 02:37 Williamson # (Auto) Not Reportable 02/11/25 02:37 Eos # (Auto) 0.1 10^3/uL (0.0-0.8) 02/10/25 20:13 Baso # (Auto) 0.1 10^3/uL (0.0-0.1) 02/10/25 20:13 Nucleated RBC % (auto) 0.1 % 02/10/25 20:13 Total Counted 100 (0-100) 02/11/25 02:37 Atypical Lymphs % 0.0 % (0-5) 02/11/25 02:37 Absolute Neutrophils 609.6 10^3/cmm (1.4-6.5) H 02/11/25 02:37 Segmented Neutrophils 701 % 02/11/25 02:37 Band Neutrophils 21.0 % 02/11/25 02:37 Absolute Lymphocytes 0.8 10^3/cmm (1.2-3.4) L 02/11/25 02:37 Lymphocytes (Manual) 1 % 02/11/25 02:37 Monocytes (Manual) 1.0 % 02/11/25 02:37 Absolute Monocytes 0.8 10^3/cmm (0.1-0.6) H 02/11/25 02:37 Eosinophils (Manual) 0 % 02/11/25 02:37 Absolute Eosinophils 0.0 10^3/cmm (0.0-0.7) 02/11/25 02:37 Basophils (Manual) 0.0 % 02/11/25 02:37 Absolute Basophils 0.0 10^3/cmm (0.0-0.2) 02/11/25 02:37 Metamyelocytes 5.0 % 02/11/25 02:37 Myelocytes 2.0 % 02/11/25 02:37 Nucleated RBCs # 0.0 /100WBC 02/10/25 20:13 Platelet Estimate Normal (Normal) 02/11/25 02:37 Giant Platelets Trace 02/11/25 02:37 Anisocytosis 1+ H 02/11/25 02:37 APTT 96.9 SECONDS (23.9-36.7) H D 02/11/25 11:44 Specimen Type Arterial 02/10/25 20:00 Sample Site Radial, left 02/10/25 20:00 ABG pH 7.31 (7.35-7.45) L 02/10/25 20:00 ABG pCO2 48.3 mmHg (35-45) H 02/10/25 20:00 ABG pO2 216.0 mmHg (80.0-100.0) H 02/10/25 20:00 ABG PO2/FiO2 Ratio 270 02/10/25 20:00 ABG HCO3 24.5 mmol/L (22-26) 02/10/25 20:00 ABG O2 Saturation > 99.1 02/10/25 20:00 ABG Base Excess -1.9 mmol/L (-2.0-2.0) 02/10/25 20:00 Ivan Test Pos 02/10/25 20:00 A-a O2 Gradient 37.4 mmHg (5-10) H 02/10/25 20:00 Hematocrit 31.4 % (42-52) L 02/10/25 20:00 Hgb O2 Saturation 97.9 % (95-100) 02/10/25 20:00 Carboxyhemoglobin 1.2 %THgb (0.4-20.1) 02/10/25 20:00 Methemoglobin 1.0 % (0.4-1.5) 02/10/25 20:00 Total Hemoglobin 10.2 g/dL (14-18) L 02/10/25 20:00 Sodium 135.0 mmol/L (131-143) 02/10/25 20:00 Potassium 5.0 mmol/L (3.5-5.0) 02/10/25 20:00 Glucose 228.0 mg/dL (70-115) H 02/10/25 20:00 Ionized Calcium 1.1 mmol/L (1.1-1.4) 02/10/25 20:00 O2 Delivery Device Bipap 02/10/25 20:00 FiO2 80.0 % 02/10/25 20:00 Manager ID [id number] 02/10/25 20:00 Sodium 137 mmol/L (136-145) 02/12/25 02:39 Potassium 4.9 mmol/L (3.5-5.1) 02/12/25 02:39 Chloride 99 mmol/L (98-107) 02/12/25 02:39 Carbon Dioxide 27 mmol/L (22-29) 02/12/25 02:39 Anion Gap 15.9 (5-19) 02/12/25 02:39 BUN 35 mg/dL (8-23) H 02/12/25 02:39 Creatinine 1.4 mg/dL (0.7-1.2) H 02/12/25 02:39 GFR Calculation Not Reportable 02/12/25 02:39 Glucose 160 mg/dL (65-115) H 02/12/25 02:39 POC Glucose 235 mg/dL (70-110) H 02/10/25 20:04 Estimat Average Glucose 111 02/11/25 02:37 Hemoglobin A1c 5.5 % (4.0-6.0) 02/11/25 02:37 Calculated Osmolality 295 mOsm/kg (285-295) 02/12/25 02:39 Lactic Acid 4.1 mmol/L (0.5-2.2) H* 02/11/25 05:42 Lactic Acid (Sepsis) 4.3 mmol/L (0.5-2.2) H* 02/11/25 08:50 Lactate 1.3 mmol/L (0.5-2.2) 02/12/25 16:59 Calcium 8.0 mg/dL (8.5-10.5) L 02/12/25 02:39 Phosphorus 2.8 mg/dL (2.5-4.5) 02/11/25 02:37 Magnesium 1.9 mg/dL (1.7-2.3) 02/11/25 02:37 Total Bilirubin 0.3 mg/dL (0.15-1.2) 02/12/25 02:39 AST 258 U/L (0-40) H 02/12/25 02:39 ALT 191 U/L (0-41) H 02/12/25 02:39 Alkaline Phosphatase 152 U/L (40-130) H 02/12/25 02:39 Troponin T 5th Gen ng/L 2453 ng/L (0-15) H* 02/12/25 02:39 Troponin T Baseline 258 ng/L (0-15) H* 02/10/25 20:13 Troponin T 120 Minute 500.1 ng/L (0-15) H 02/10/25 22:35 Delta Troponin T 242.1 ABS# (0-10) H* 02/10/25 22:35 Troponin T Hi Sens 6Hr 704.8 ng/L (0-15) H 02/11/25 02:37 Troponin T Hi Sens 6Hr Delta 446.8 ng/L (0-12) H* 02/11/25 02:37 C-Reactive Protein 38.4 mg/L (0.0-4.9) H 02/10/25 20:42 NT-Pro-B Natriuret Pep 3609 pg/mL (0-125) H 02/11/25 02:37 Total Protein 7.8 g/dL (6.6-8.7) 02/12/25 02:39 Albumin 3.3 g/dL (3.5-5.2) L 02/12/25 02:39 Globulin 4.5 g/dL (1.3-4.6) 02/12/25 02:39 Triglycerides 112 mg/dL (0-150) 02/11/25 02:37 Cholesterol 132 mg/dL (0-200) 02/11/25 02:37 LDL Cholesterol, Calc 67 mg/dL (50-129) 02/11/25 02:37 HDL Cholesterol 43 mg/dL (60-100) L 02/11/25 02:37 LDL/HDL Ratio 1.56 RATIO (0.00-3.22) 02/11/25 02:37 Cholesterol/HDL Ratio 3.07 mg/dL (1.0-5.00) 02/11/25 02:37 25-OH Vitamin D Total 36 ng/mL (30-100) 02/11/25 02:37 Procalcitonin > 100.00 ng/mL (0-0.5) H 02/11/25 02:37 TSH 5.06 uIU/mL (0.27-4.20) H 02/11/25 02:37 Free T4 0.71 ng/dL (0.82-1.77) L 02/12/25 02:39 Urine Color Yellow (Yellow) 02/11/25 00:20 Urine Appearance Clear (CLEAR) 02/11/25 00:20 Urine pH 8.0 (5-7) A 02/11/25 00:20 Ur Specific Climax 1.013 (1.005-1.030) 02/11/25 00:20 Urine Protein Trace (Negative) A 02/11/25 00:20 Urine Glucose (UA) Negative (Normal) 02/11/25 00:20 Urine Ketones Negative (Negative) 02/11/25 00:20 Urine Blood 2+ (Negative) A 02/11/25 00: Urine Nitrate Positive (Negative) A 02/11/25 00:20 Urine Bilirubin Negative (Negative) 02/11/25 00:20 Urine Urobilinogen 0.2 mg/dL (Negative) 02/11/25 00:20 Ur Leukocyte Esterase 2+ (Negative) A 02/11/25 00:20 Urine RBC >100 /hpf (0-2) H 02/11/25 00:20 Urine WBC 51-100 /hpf (0-5) H 02/11/25 00:20 Ur Squamous Epith Cells 0-5 /hpf (0-5) 02/11/25 00:20 Amorphous Sediment Not Reportable 02/11/25 00:20 Urine Bacteria 4+ /hpf (NONE) H 02/11/25 00:20 Hyaline Casts 46.74 /lpf 02/11/25 00:20 Influenza A (PCR) Negative (Negative) 02/10/25 20:35 Influenza Type B (PCR) Negative (Negative) 02/10/25 20:35 RSV (PCR) Negative (Negative) 02/10/25 20:35 SARS-CoV-2 (PCR) Negative (Negative) 02/10/25 20:35 Radiology Impressions Chest X-Ray 02/10/25 19:58 IMPRESSION: No definitive acute cardiopulmonary disease. Recent Clincial Data Last Vital Signs Temp 98.9 F 02/11/25 20:30 Pulse 87 02/12/25 16:45 Resp 22 H 02/12/25 17:04 BP 119/61 02/12/25 17:45 Pulse Ox 97 02/12/25 17:45 O2 Del Method Nasal Cannula 02/12/25 07:45 O2 Flow Rate 4 02/12/25 07:45 FiO2 40 02/11/25 08:00 Vital Signs Pulse Resp BP Pulse Ox 02/12/25 17:45 119/61 97 02/12/25 17:30 115/60 96 02/12/25 17:15 128/66 97 02/12/25 17:04 22 H 02/12/25 17:00 139/76 96 02/12/25 16:45 87 17 134/76 98 02/12/25 16:30 79 20 H 126/71 99 02/12/25 16:15 82 22 H 143/77 97 02/12/25 16:00 83 25 H 133/63 98 02/12/25 15:45 82 24 H 133/74 98 02/12/25 15:30 73 24 H 123/62 97 02/12/25 15:15 84 24 H 143/66 96 02/12/25 15:00 85 25 H 127/73 95 02/12/25 14:45 83 25 H 124/69 97 02/12/25 14:30 83 23 H 126/66 98 02/12/25 14:15 84 19 H 121/72 96 02/12/25 14:08 84 25 H 121/72 92 02/12/25 13:45 82 25 H 128/76 85 L 02/12/25 13:30 82 21 H 136/74 99 02/12/25 13:15 83 22 H 118/65 99 02/12/25 13:00 85 21 H 122/61 90 02/12/25 12:45 80 22 H 142/72 82 L 02/12/25 12:30 84 26 H 123/59 90 02/12/25 12:15 83 23 H 118/60 91 02/12/25 12:00 85 23 H 135/75 92 02/12/25 11:48 85 26 H 135/75 98 02/12/25 11:15 85 24 H 132/83 93 02/12/25 11:11 24 H 02/12/25 11:00 86 25 H 129/69 94 02/12/25 10:45 82 26 H 138/77 98 02/12/25 10:30 85 24 H 115/56 94 02/12/25 10:15 85 21 H 128/73 92 02/12/25 10:00 85 22 H 125/60 02/12/25 09:45 87 25 H 135/70 96 02/12/25 09:30 90 25 H 125/58 93 02/12/25 09:15 91 26 H 122/54 91 02/12/25 09:00 91 22 H 153/76 97 02/12/25 08:45 92 28 H 130/72 100 02/12/25 08:30 92 25 H 147/71 91 02/12/25 08:15 89 24 H 132/64 93 02/12/25 08:00 87 26 H 139/81 93 02/12/25 07:55 87 Intake & Output/Weight 02/10/25 02/11/25 02/12/25 02/13/25 06:59 06:59 06:59 06:59 Intake Total 1154.439 / 6794.258 8658.561 / 4675.561 333 / 333 Output Total 500 / 500 1900 / 1900 1650 / 1650 Balance 654.439 / 483.025 1852.561 / 2775.561 -1317 / -1317 Weight 144.242 kg 145.039 kg Vitals Last Vital Signs Temp 98.9 F 02/11/25 20:30 Pulse 87 02/12/25 16:45 Resp 22 H 02/12/25 17:04 BP 119/61 02/12/25 17:45 Pulse Ox 97 02/12/25 17:45 O2 Del Method Nasal Cannula 02/12/25 07:45 O2 Flow Rate 4 02/12/25 07:45 FiO2 40 02/11/25 08:00 TS Medications Medications Acetaminophen (Acetaminophen 325 Mg Tablet) 650 mg PO Q6H PRN PRN Reason: Mild/Mod Pain Or Temp >/= 101 Albuterol/Ipratropium (Ipratropium-Albuterol 3 Ml Neb) 3 ml INHALATION Q6H.RESP PRN PRN Reason: SHORTNESS OF BREATH Amiodarone HCl (Amiodarone 200 Mg Tablet) 200 mg PO BID [facility] Last Admin: 02/12/25 17:05 Dose: 200 mg Aspirin (Aspirin 81 Mg Ec Tablet) 81 mg PO DAILY [facility] Atorvastatin Calcium (Atorvastatin 40 Mg Tablet) 40 mg PO BEDTIME [facility]JINDER Clopidogrel Bisulfate (Clopidogrel 75 Mg Tablet) 75 mg PO DAILY [facility] On Hold: 02/12/25 18:58 Comment: Order held by Process Transfer Last Admin: 02/12/25 18:05 Dose: 75 mg Docusate Sodium (Docusate Sodium 100 Mg Capsule) 100 mg PO BID [facility] Last Admin: 02/12/25 17:05 Dose: 100 mg Fluoxetine HCl (Fluoxetine 20 Mg Capsule) 40 mg PO DAILY [facility] Gabapentin (Gabapentin 400 Mg Capsule) 400 mg PO BID [facility] Heparin Sodium (Porcine) (Heparin 5,000 Unit/Ml Inj 1 Ml) 0 unit IVP PRN PRN; Protocol PRN Reason: Heparin Weight Based Protocol -Subsequent Bolus Sodium Chloride (Sodium Chloride 0.9%) 1,000 mls @ 150 mls/hr IV .Q6H40M [facility] Last Admin: 02/12/25 15:29 Dose: Not Given Vancomycin HCl 1,000 mg/ (Sodium Chloride) 250 mls @ 250 mls/hr IV Q12H [facility] Last Infusion: 02/12/25 11:00 Dose: Infused Levothyroxine Sodium (Levothyroxine 75 Mcg Tablet) 37.5 mcg PO ACBREAKFAST [facility] Meropenem (Meropenem 500 Mg Sdv) 500 mg IVP Q8H HARJINDER; Protocol Last Admin: 02/12/25 15:21 Dose: 500 mg Morphine Sulfate (Morphine 4 Mg/Ml Sdv 1 Ml) 2 mg IVP Q3H PRN PRN Reason: SEVERE PAIN Last Admin: 02/12/25 17:04 Dose: 2 mg Ondansetron HCl (Ondansetron 2 Mg/Ml Sdv 2 Ml) 4 mg IVP Q8H PRN PRN Reason: vomiting, or N/V if npo Last Admin: 02/11/25 19:25 Dose: 4 mg Pantoprazole Sodium (Pantoprazole 40 Mg Sdv) 40 mg IVP Q24H [facility] Last Admin: 02/11/25 22:57 Dose: 40 mg Prochlorperazine (Prochlorperazine 10 Mg Tablet) 5 mg PO Q6H PRN PRN Reason: N/V Senna (Sennosides 8.6 Mg Tablet) 17.2 mg PO BEDTIME [facility]JINDER Last Admin: 02/11/25 20:50 Dose: 17.2 mg Discontinued Medications Albuterol/Ipratropium (Ipratropium-Albuterol 3 Ml Neb) 3 ml INHALATION Q4H.RESPIRATORY [facility]JINDER Last Admin: 02/12/25 07:56 Dose: 3 ml Amiodarone HCl (Amiodarone 50 Mg/Ml Sdv 3 Ml) 150 mg IVP ONCE ONE Stop: 02/10/25 20:08 Last Admin: 02/10/25 20:14 Dose: 150 mg Furosemide (Furosemide 10 Mg/Ml Sdv 4ml) 40 mg IVP ONCE ONE Stop: 02/12/25 10:21 Last Admin: 02/12/25 11:12 Dose: 40 mg Heparin Sodium (Porcine) (Heparin 5,000 Unit/Ml Inj 1 Ml) 0 unit IVP ONCE ONE; Protocol Stop: 02/11/25 05:02 Last Admin: 02/11/25 05:20 Dose: 7,000 unit Sodium Chloride (Sodium Chloride 0.9%) 1,000 mls @ 999 mls/hr IV .Q1H1M ONE Stop: 02/10/25 21:10 Last Admin: 02/10/25 21:18 Dose: Not Given Sodium Chloride (Sodium Chloride 0.9%) 1,000 mls @ 999 mls/hr IV .Q1H1M ONE Stop: 02/10/25 21:10 Last Admin: 02/10/25 21:18 Dose: Not Given Amiodarone HCl/Dextrose (Nexterone) 360 mg in 200 mls @ 0 mls/hr IV .Q0M [facility]JINDER; Protocol Last Titration: 02/11/25 20:12 Dose: Infused Linezolid (Zyvox Premix) 600 mg in 300 mls @ 300 mls/hr IV ONCE ONE; Protocol Stop: 02/10/25 21:25 Last Infusion: 02/10/25 23:58 Dose: Infused Sodium Chloride (Sodium Chloride 0.9%) 500 mls @ 999 mls/hr IV .Q31M STA Stop: 02/10/25 21:23 Last Infusion: 02/10/25 23:58 Dose: Infused Sodium Chloride (Sodium Chloride 0.9%) 1,000 mls @ 999 mls/hr IV .Q1H1M ONE Stop: 02/10/25 23:42 Last Admin: 02/11/25 01:03 Dose: Not Given Meropenem 500 mg/ Sodium (Chloride) 50 mls @ 100 mls/hr IV Q8H [facility]JINDER; Protocol Doxycycline Hyclate 100 mg/ N/ (A) 0 mls @ 0 mls/hr IV Q12H [facility]; Protocol Doxycycline Hyclate 100 mg/ (Sodium Chloride) 100 mls @ 100 mls/hr IV Q12H [facility] Last Infusion: 02/11/25 02:41 Dose: Infused Heparin Sodium/Sodium Chloride (Heparin Drip) 25,000 unit in 500 mls @ 0 mls/hr IV CONT [facility]JINDER; Protocol Last Admin: 02/11/25 05:20 Dose: 14.21 unit/kg/hr, 41 mls/hr Albumin Human (Albumin) 25 g in 100 mls @ 60 mls/hr IV Q12H [facility] Last Infusion: 02/12/25 11:01 Dose: Infused Vancomycin HCl / Sodium (Chloride) 250 mls @ 0 mls/hr [id number] PROTOCOL HARJINDER; Protocol Vancomycin HCl (Vancocin) 3,000 mg in 600 mls @ 200 mls/hr IV ONCE ONE Stop: 02/11/25 13:29 Last Infusion: 02/11/25 16:35 Dose: Infused Sodium Chloride (Sodium Chloride 0.9%) 1,000 mls @ 999 mls/hr IV .Q1H1M ONE Stop: 02/11/25 12:05 Last Infusion: 02/11/25 16:35 Dose: Infused Albumin Human (Albumin) 25 gm in 100 mls @ 60 mls/hr IV Q12H [facility] Meropenem (Meropenem 500 Mg Sdv) 500 mg IVP ONCE ONE; Protocol Stop: 02/10/25 20:27 Last Admin: 02/10/25 20:46 Dose: 500 mg Methylprednisolone Sodium Succinate (Methylprednisolone Sod Succ 40 Mg/Ml Inj) 40 mg IVP Q12H [facility] Last Admin: 02/11/25 00:31 Dose: 40 mg Morphine Sulfate (Morphine 4 Mg/Ml Sdv 1 Ml) 2 mg IVP Q4H PRN PRN Reason: SEVERE PAIN Last Admin: 02/11/25 18:32 Dose: 2 mg Perflutren Protein Type A Microsphe (Perflutren Protein-A Microsphr 0.22 Mg/Ml Sdv 3 Ml) 0 ml IV ONCE ONE Stop: 02/12/25 09:55 Last Admin: 02/12/25 10:26 Dose: 3 ml Allergies broccoli Allergy (Verified 02/10/25 20:12) ADR-Vomiting Home Medications albuterol sulfate 90 mcg/actuation aerosol inhaler 2 puff inhalation Q4H PRN Shortness Of Breath Or Wheezing 11/02/24 [History Confirmed 02/11/25] aluminum-mag hydroxide-simethicone 400 mg-400 mg-40 mg/5 mL oral susp (Mylanta Maximum Strength) 30 ml PO Q2H PRN indigeston/heartburn/gas 11/02/24 [History Confirmed 02/11/25] apixaban 5 mg tablet (Eliquis) 5 mg PO BID 11/02/24 [History Confirmed 02/11/25] Held on 01/31/25. Instructions: Resume on 02/24/25. hold until you see surgery bisacodyl 10 mg rectal suppository 10 mg CO .Q72H PRN Constipation 11/02/24 [History Confirmed 02/11/25] docusate sodium 100 mg capsule (Colace) 100 mg PO BID 11/02/24 [History Confirmed 02/11/25] ergocalciferol (vitamin D2) 1,250 mcg (50,000 unit) capsule 50,000 mcg PO Q7D 11/02/24 [History Confirmed 02/11/25] fluoxetine 40 mg capsule 40 mg PO DAILY 11/02/24 [History Confirmed 02/11/25] fluticasone fur. 200 mcg-umeclid 62.5 mcg-vilant 25 mcg inhalat.powder (Trelegy Ellipta) 1 inh inhalation DAILY 11/02/24 [History Confirmed 02/11/25] magnesium hydroxide 400 mg/5 mL oral suspension (Milk of Magnesia) 30 ml PO DAILY PRN Constipation 11/02/24 [History Confirmed 02/11/25] multivitamin 1 tab PO QAM 11/02/24 [History Confirmed 02/11/25] omeprazole 20 mg tablet,delayed release 20 mg PO DAILY 11/02/24 [History Confirmed 02/11/25] polyethylene glycol 3350 17 gram/dose oral powder (Miralax) 17 g PO DAILY PRN bowel management 11/02/24 [History Confirmed 02/11/25] sennosides 8.6 mg tablet (senna) 8.6 mg PO DAILY 11/02/24 [History Confirmed 02/11/25] spironolactone 50 mg tablet 50 mg PO DAILY 11/02/24 [History Confirmed 02/11/25] bumetanide 1 mg tablet 1 mg PO BIDAC #60 tabs 11/06/24 [Rx Confirmed 02/11/25] Right cockup splint #1 ea 11/28/24 [Rx Confirmed 02/11/25] acetaminophen 325 mg tablet (Tylenol) 650 mg PO Q4H PRN general discomfort 12/06/24 [History Confirmed 02/11/25] levothyroxine 25 mcg tablet 25 mcg PO DAILY 12/06/24 [History Confirmed 02/11/25] melatonin 1 mg tablet 3 mg PO BEDTIME 12/06/24 [History Confirmed 02/11/25] melatonin 5 mg tablet 5 mg PO BEDTIME 12/06/24 [History Confirmed 02/11/25] gabapentin 400 mg capsule 400 mg PO BID neuropathy 01/28/25 [History Confirmed 02/11/25] loperamide 2 mg tablet (Imodium A-D) 2 mg PO Q6H PRN Diarrhea 01/28/25 [History Confirmed 02/11/25] oxycodone-acetaminophen 10 mg-325 mg tablet 1 tab PO Q6H PRN Pain 01/28/25 [History Confirmed 02/11/25] protein supplement See Rx Instructions .Route .COMPLEX 01/28/25 [History Confirmed 02/11/25] semaglutide 1 mg/dose (4 mg/3 mL) subcutaneous pen injector (Ozempic) 1 mg SUBCUT Q7D 01/28/25 [History Confirmed 02/11/25] pantoprazole 40 mg tablet,delayed release (Protonix) 40 mg PO BID 30 days #60 tabs 01/31/25 [Rx Confirmed 02/11/25] potassium chloride 20 mEq tablet,extended release(part/cryst) (Klor-Con M) 10 meq (1/2 x 20 mEq) PO BID 30 days #30 tabs 01/31/25 [Rx Confirmed 02/11/25] sucralfate 1 gram tablet 1 g PO Q12H 30 days #60 tabs 01/31/25 [Rx Confirmed 02/11/25] prednisone 20 mg tablet 40 mg PO DAILY 02/11/25 [History Confirmed 02/11/25] Discharge Plan Discharge Patient Disposition: Other Inst w Plan Readm Condition: Stable Prescriptions: No Action (DME) Right cockup splint See Rx Instructions .Route .MEDSUPPLY Qty: 1 0RF Rx Instructions: As directed acetaminophen [Tylenol] 325 mg Tablet 650 mg PO Q4H PRN (Reason: general discomfort) levothyroxine 25 mcg Tablet 25 mcg PO DAILY melatonin 1 mg Tablet 3 mg PO BEDTIME Rx Instructions: with 5mg to=8 mg total melatonin 5 mg Tablet 5 mg PO BEDTIME Rx Instructions: with 3x1mg to=8 mg total prednisone 20 mg tablet 40 mg PO DAILY multivitamin Tablet 1 tab PO QAM fluoxetine 40 mg capsule 40 mg PO DAILY sennosides [senna] 8.6 mg Tablet 8.6 mg PO DAILY magnesium hydroxide [Milk of Magnesia] 400 mg/5 mL Suspension 30 ml PO DAILY PRN (Reason: Constipation) bisacodyl 10 mg Suppository 10 mg CO .Q72H PRN (Reason: Constipation) docusate sodium [Colace] 100 mg Capsule 100 mg PO BID ergocalciferol (vitamin D2) 1,250 mcg (50,000 unit) capsule 50,000 mcg PO Q7D Rx Instructions: polyethylene glycol 3350 [Miralax] 17 gram/dose Powder 17 g PO DAILY PRN (Reason: bowel management) albuterol sulfate 90 mcg/actuation HFA aerosol inhaler 2 puff INHALATION Q4H PRN (Reason: Shortness Of Breath Or Wheezing) alum-mag hydroxide-simeth [Mylanta Maximum Strength] 400-400-40 mg/5 mL Suspension 30 ml PO Q2H PRN (Reason: indigeston/heartburn/gas) spironolactone 50 mg tablet 50 mg PO DAILY omeprazole 20 mg Tablet,Delayed Release (Dr/Ec) 20 mg PO DAILY Eliquis 5 mg tablet 5 mg PO BID Trelegy Ellipta 200-62.5-25 mcg blister with device 1 inh INHALATION DAILY bumetanide 1 mg tablet 1 mg PO BIDAC Qty: 60 0RF gabapentin 400 mg capsule 400 mg PO BID loperamide [Imodium A-D] 2 mg Tablet 2 mg PO Q6H PRN (Reason: Diarrhea) oxycodone-acetaminophen 10-325 mg tablet 1 tab PO Q6H PRN (Reason: Pain) protein supplement Liquid See Rx Instructions .ROUTE .COMPLEX Rx Instructions: Give 30 ml by mouth once daily for wound healing. Ozempic 1 mg/dose (4 mg/3 mL) pen injector 1 mg SUBCUT Q7D Rx Instructions: sucralfate 1 gram Tablet 1 g PO Q12H 30 Days Qty: 60 0RF pantoprazole [Protonix] 40 mg tablet,delayed release (DR/EC) 40 mg PO BID 30 Days Qty: 60 0RF potassium chloride [Klor-Con M20] 20 mEq tablet,ER particles/crystals 10 meq PO BID 30 Days Qty: 30 0RF Discharge Orders: Transfer Out of Facility (Order); Ordered 02/12/25 Ordered By: Becky Zabala Referrals: Otilio Huang [Primary Care Provider, Internal Medicine] Michelle Sandhu MD [Physician, Cardiology] Discharge Diet: Cardiac Discharge Activity: Resume usual activity Transfer Attestations Time Spent in Transfer Care: greater than 30 min Quality Metrics Clinical Quality Measures [ Acute Myocardial Infaction { Clinical Trial Participant: No; Contraindication to aspirin: Medical contraindication; Contraindication to statin: None; Statin prescribed;}] Coding Level of Care Code Acute Code for g Fwd Diagnoses Gross hematuria R31.0 ST elevation R94.31 Atrial fibrillation with rapid ventricular response I48.91 Acute on chronic hypoxic respiratory failure J96.21 Acute on chronic HFrEF (heart failure with reduced ejection fraction) I50.23 Sepsis A41.9 Catheter-associated urinary tract infection T83.511A; N39.0 Lactic acidosis E87.20 Chronic indwelling Robertson catheter Z97.8 Acute renal insufficiency N28.9
[2025-02-12] MEDS: gabapentin 400 mg Capsule PO (20:19)
[2025-02-12] MEDS: atorvastatin 40 mg Tablet PO (20:19)
[2025-02-12] MEDS: sennosides 8.6 mg Tablet 17.2 MG PO (20:19)
[2025-02-12] MEDS: pantoprazole 40 mg SDV IVP (21:49)
[2025-02-13] VITALS (81 sets, daily range): BP systolic 101–134; BP diastolic 46–77; PULSE 75–91; RESP 14–27; TEMP 36.5–37.1; O2SAT 92–100
[2025-02-13] MEDS: morphine 4 mg/mL SDV 1 mL 2 MG IVP ×4 (00:16→17:33)
[2025-02-13 04:37] LABS: Basophils % 0.1 %; Hematocrit 28.2 % (37-53); Lymphocytes # 0.7 10^3/uL (0.8-4.8); Lymphocytes % 2.2 %; Mean Corpuscular HGB Conc 27.7 g/dL (30-55); Mean Corpuscular Volume 83.2 fl (82-101); Mean Platelet Volume 9.1 fL (7.4-10.4); Monocytes # 1.8 10^3/uL (0.2-0.9); Monocytes % 5.9 %; Neutrophils # 27.17 10^3/uL (1.8-7.7); Neutrophils % 89.7 %; Nucleated Red Blood Cells % 0.1 %; Platelet Count 238 10^3/cmm (157-399); Red Blood Count 3.39 10^6/uL (3.85-5.65); Red Cell Distribution Width 17.9 % (12.1-15.1)
[2025-02-13 04:56] LABS: Magnesium 2.5 mg/dL (1.7-2.3)
[2025-02-13 05:00] LABS: Alanine Aminotransferase 145 U/L (0-41); Albumin Level 3.2 g/dL (3.5-5.2); Alkaline Phosphatase 146 U/L (40-130); Anion Gap 13.8 (5-19); Aspartate Amino Transferase 102 U/L (0-40); Blood Urea Nitrogen 28 mg/dL (8-23); Carbon Dioxide 30 mmol/L (22-29); Chloride 101 mmol/L (98-107); Globulin 3.4 g/dL (1.3-4.6); Glucose 137 mg/dL (65-115); Osmolality Calculated 298 mOsm/kg (285-295); Potassium 4.8 mmol/L (3.5-5.1); Sodium 140 mmol/L (136-145); Total Bilirubin 0.4 mg/dL (0.15-1.2); Total Protein 6.6 g/dL (6.6-8.7)
[2025-02-13 05:12] LABS: White Blood Count 30.31 10^3/uL (3.29-11.43)
[2025-02-13] MEDS: meropenem 500 mg SDV IVP ×2 (05:35→14:44)
[2025-02-13] MEDS: levothyroxine 75 mcg Tablet 37.5 MCG PO (06:55)
--- NOTE | 2025-02-13 09:17 | P.PN_ITS ---
Subjective 2 Subjective: Patient is chest pain free today. Echo shows normal LV systolic pressure Vitals/I&O/Wt Last Vital Signs Temp 98.0 F 02/13/25 08:00 Pulse 86 02/13/25 08:00 Resp 21 H 02/13/25 08:00 BP 123/69 02/13/25 08:00 Pulse Ox 95 02/13/25 08:00 O2 Del Method Nasal Cannula 02/13/25 08:00 O2 Flow Rate 4 02/13/25 08:00 FiO2 40 02/11/25 08:00 02/12/25 02/13/25 02/13/25 22:59 06:59 14:59 Intake Total 750 / 1083 Output Total 1949 / 1949 650 / 2600 Balance -1950 / -1617 100 / -1517 Weight last 48 hrs Weight 319 lb Weight 319 lb 12.108 oz Physical Exam 2 Narrative: GENERAL: Patient is alert NECK: No jugular vein distension. [] HEENT: No cyanosis. No icterus. No pallor. [] HEART: Regular S1 and S2. Grade 2/6 systolic murmur LUNGS: Diminished air entry bilaterally CENTRAL NERVOUS SYSTEM: Grossly nonfocal. [] EXTREMITIES: Lower extremities with 1+ edema bilaterally. Urinary Catheter Management: 3-way Urethral CBI: Cath Placed During This Visit: yes Reason for Continuing Indwelling Catheter: Accurate Measurement of Urinary Output in Critically Ill Patients Urinary Catheter Date of Insertion: 02/11/25 Urinary Catheter Time of Insertion: 13:10 Data 02/13/25 04:11 02/13/25 04:11 Micro: Microbiology 02/11/25 00:20 Urine Culture - Preliminary Urine,Clean Catch Gram Negative Rods A&P Assessment and plan (1) ST elevation: (2) Atrial fibrillation with rapid ventricular response: (3) Acute renal insufficiency: (4) Sepsis: (5) Acute on chronic hypoxic respiratory failure: Plan Patient had a complex presentation with respiratory failure. He is a care home resident. EKG was showing diffuse ST elevations involving inferior, anterior/anterolateral leads. ECHO shows normal LV systolic function. Troponin trended up. Patient's code status was DNR/DNI, and he did not want to make it full code and given ongoing respiratory failure with DNR, shared decision was made to medially treat him. He had significant hematuria requiring blood transfusion, sepsis secondary to UTI. Anticoagulation had to be held because of hematuria. Aspirin reintroduced yesterday. Awaiting transfer to [place] for urology workup. On day 2 of admission, complained of chest pain. Today is chest pain free. If has recurrent chest pain and is agreeable for procedure, can consider angiogram after urology workup and confirmation of no bleeding. Otherwise continued medical therapy. Continue diuresis Thank you for involving us with care of this patient. please call with questions. PDMP PDMP Reviewed: Not Reviewed Attestations 2 Medical Necessity Statement*: Care expected to cross 2 midnights. Coding Level of Care Code Acute Code for [facility] Fwd Diagnoses ST elevation R94.31 Atrial fibrillation with rapid ventricular response I48.91 Acute renal insufficiency N28.9 Sepsis A41.9 Acute on chronic hypoxic respiratory failure J96.21
[2025-02-13] MEDS: fluoxetine 20 mg Capsule 40 MG PO (10:23)
[2025-02-13] MEDS: amiodarone 200 mg Tablet PO ×2 (10:24→17:21)
[2025-02-13] MEDS: gabapentin 400 mg Capsule PO ×2 (10:24→17:21)
[2025-02-13] MEDS: docusate sodium 100 mg Capsule PO ×2 (10:24→17:21)
[2025-02-13] MEDS: aspirin 81 mg EC Tablet PO (10:24)
[2025-02-13] MEDS: VANCOMYCIN ADD-Vantage 1,000 MG in 0.9% NaCl ADD-Vantage 250 ML 250 MG IV (10:55)
--- NOTE | 2025-02-13 15:35 | P.PN_ITS ---
Subjective 2 Subjective: No hematuria today. Blood pressure has been stable. Continues to be on 4 L/min O2 which is his baseline. Denies any chest pain or dyspnea. Vitals/I&O/Wt Last Vital Signs Temp 98.1 F 02/13/25 14:50 Pulse 78 02/13/25 14:50 Resp 15 02/13/25 14:50 BP 130/71 02/13/25 14:50 Pulse Ox 100 02/13/25 14:50 O2 Del Method Nasal Cannula 02/13/25 12:00 O2 Flow Rate 4 02/13/25 12:00 FiO2 40 02/11/25 08:00 02/13/25 02/13/25 02/13/25 06:59 14:59 22:59 Intake Total 750 / 1083 590 / 590 Output Total 650 / 2600 Balance 100 / -1517 590 / 590 Weight last 48 hrs Weight 144.696 kg Weight 145.039 kg Physical Exam 2 Const: COMMON NORMALS: no acute distress and patient oriented x3 HENMT: COMMON NORMALS: normocephalic, atraumatic and moist oral mucous membranes HEAD & SCALP: normocephalic and atraumatic Eye: COMMON NORMALS: Equal, round and reactive pupils present, EOMs intact bilaterally and conjunctivae normal CONJUNCTIVA: Yes conjunctivae normal P UPIL: Yes Equal, round and reactive pupils present Neck/C-Spine: COMMON NORMALS: supple Chest: COMMONS NORMALS: normal inspection of the chest Resp: COMMON NORMALS: normal respiratory effort AUSCULTATION: crackles Cardio: COMMON NORMALS: regular rate, S1 normal heart sound present, S2 normal heart sound present, No murmurs present (Cardio) and Peripheral pulses 2+ throughout JUGULAR VENOUS DISTENTION: no JVD RATE: regular rate RHYTHM: abnormal rhythm HEART SOUNDS: S1 normal heart sound present and S2 normal heart sound present PERIPHERAL PULSES: Peripheral pulses 2+ throughout GI: COMMON NORMALS: Normal to inspection, nondistended, normoactive bowel sounds present : COMMON NORMALS: Yes no CVA tenderness BLADDER/KIDNEY EXAM: Yes no CVA tenderness Back/Pelvis: COMMON NORMALS: no CVA tenderness Extremity: GENERAL: Yes edema Neuro: COMMON NORMALS: patient oriented x3 Psych: COMMON NORMALS: Normal thought process present and cooperative T HOUGHT PROCESS: Normal thought process present Skin: COMMON NORMALS: no rashes or lesions noted GENERAL SKIN EXAM: no rashes or lesions noted Urinary Catheter Management: 3-way Urethral CBI: Cath Placed During This Visit: yes Reason for Continuing Indwelling Catheter: Accurate Measurement of Urinary Output in Critically Ill Patients Urinary Catheter Date of Insertion: 02/11/25 Urinary Catheter Time of Insertion: 13:10 Data 02/13/25 04:11 02/13/25 04:11 Micro: Microbiology 02/11/25 00:20 Urine Culture - Final Urine,Clean Catch Providencia stuartii 02/10/25 20:55 Blood Culture - Preliminary Blood Providencia stuartii A&P Assessment and plan (1) Iron deficiency anemia: Iron saturation was 3.9% on 01/28/2025. Hemoglobin 7.8 g a deciliter today. Given his ST elevation with elevated troponin would like his hemoglobin to be closer to 9. Transfusing 1 unit of PRBCs today. Monitor hemoglobin. (2) Acute on chronic HFrEF (heart failure with reduced ejection fraction): Appears to be clinically volume overloaded today. Will give him 20 mg of IV Lasix after blood transfusion today. (3) Gross hematuria: Developed gross hematuria while on heparin drip (about 300 mL) Accepted for transfer at [facility] for urology, waiting for bed He has a indwelling Robertson catheter which placed about a month ago and changed on day of admission. (4) ST elevation: Elevated troponin with diffuse ST elevations on EKG and admission Patient initially declined cardiac catheterization but is agreeable to this at this time Had gross hematuria with heparin drip which was stopped Cardiology following and recommends coronary angiogram after urologic evaluation No bleeding noted today (5) Atrial fibrillation with rapid ventricular response: A-fib with RVR on admission which has resolved (6) Acute on chronic hypoxic respiratory failure: Acute on chronic hypoxic and hypercapnic failure requiring BiPAP at admission Likely COPD exacerbation and pulmonary edema Saturating well on his baseline 4 L/min O2 at this time Monitor O2 sats closely (7) Sepsis: Severe sepsis present on admission SIRS: Leukocytosis, elevated lactic acid, tachycardia, and hypotension Patient has catheter associated UTI (8) Catheter-associated urinary tract infection: Present on admission Urine culture grew Providencia stuartii Switched from vancomycin and meropenem to cefepime (9) Lactic acidosis: Present on admission and has resolved (10) Chronic indwelling Robertson catheter: Placed over a month ago and changed on day of admission (11) Acute renal insufficiency: Secondary to sepsis Creatinine improved to 1.4 today, continue to monitor (12) Elevated LFTs: Alkaline phosphatase chronically elevated but AST and ALT were normal. AST, ALT, and alkaline phos lower today. Will trend Plan Urine culture grew providencia stuartii and switched to cefepime Transfusing 1 units of PRBCs today Giving dose of IV Lasix for hypervolemia Holding off heparin because of prior gross hematuria Waiting for bed at [facility] Patient will need coronary angiogram after urologic evaluation given diffuse ST elevation with elevated troponin on admission PDMP PDMP Reviewed: Not Reviewed Attestations 2 Medical Necessity Statement*: Patient requires continued hospitalization for IV antibiotics, IV diuretics, blood transfusion, telemetry monitoring. Waiting for transfer to [facility]. Time Spent in Patient Care: Total time spent with goals 45 minutes. This includes [id number] evaluation, chart review, following plan, discussion of plan of care with patient, loss prevention consultant, nursing staff. Coding Level of Care Code 86526 Diagnoses Iron deficiency anemia D50.9 Acute on chronic HFrEF (heart failure with reduced ejection fraction) I50.[address] elevation R94.31 Atrial fibrillation with rapid ventricular response I48.91 Acute on chronic hypoxic respiratory failure J96.21 Sepsis A41.9 Catheter-associated urinary tract infection T83.511A; N39.0 Lactic acidosis E87.20 Chronic indwelling Robertson catheter Z97.8 Acute renal insufficiency N28.9 Elevated LFTs R79.89
[2025-02-13] MEDS: FUROsemide 10 mg/mL SDV 4mL 40 MG IVP (17:21)
[2025-02-13] MEDS: cefepime 1,000 mg SDV 1000 MG IVP (17:21)
--- NOTE | 2025-02-13 19:39 | PC.NURSE ---
right ac site is hemodialysis site
--- NOTE | 2025-02-13 20:18 | PC.NURSE ---
Report called to Beth at [facility], ambulance arrived to pick patient up - Sister Isabel updated on transfer.
== END 2025-02-13 20:18 | disposition short-term general hospital (02) | DRG 871 ==
LOC: ER 21:47 → ICU 21:59
PROVIDERS: Internal Medicine; Admitting Provider Internal Medicine; Emergency Provider Emergency Medicine; PCP Student in an Organized Health Care Education/Training Program; Visit Provider Student in an Organized Health Care Education/Training Program
DX: A41.9 Sepsis, unspecified organism (principal); I50.23 Acute on chronic systolic (congestive) heart failure; J18.9 Pneumonia, unspecified organism; J96.21 Acute and chronic respiratory failure with hypoxia; R65.21 Severe sepsis with septic shock; J96.22 Acute and chronic respiratory failure with hypercapnia; J44.1 Chronic obstructive pulmonary disease with (acute) exacerbation; N17.9 Acute kidney failure, unspecified; E87.20 Acidosis, unspecified; N39.0 Urinary tract infection, site not specified; Z86.73 Personal history of transient ischemic attack (TIA), and cerebral infarction without residual deficits; Z79.01 Long term (current) use of anticoagulants; Z99.81 Dependence on supplemental oxygen; J44.9 Chronic obstructive pulmonary disease, unspecified; E66.01 Morbid (severe) obesity due to excess calories; Z79.899 Other long term (current) drug therapy; Z79.890 Hormone replacement therapy; Z87.891 Personal history of nicotine dependence; I48.91 Unspecified atrial fibrillation; Z66 Do not resuscitate; D50.9 Iron deficiency anemia, unspecified
CPT/HCPCS: 36415; 36416; 36430; 36600; 51702; 71045; 80051; 80053; 80061; 81001; 82306; 82330; 82805; 82962; 83036; 83605; 83735; 83880; 84100; 84145; 84439; 84443; 84484; 85007; 85025; 85730; 86140; 86850; 86900; 86920; 87040; 87077; 87086; 87150; 87186; 87205; 87637; 93005; 93325; 94640; 94660; 94664; 96365; 96366; 96367; 96374; 96375; 96376; 99291; A4222; C8924; J0282; J0283; J0692; J1644; J1938; J2020; J2185; J2270; J2405; J2470; J2919; J3370; J3490; J7030; J7040; J7050; J9999; P9016; P9046

== ENCOUNTER 2025-03-04 20:42 | Inpatient (IN) | payer MEDICARE, MEDICAID, SELFPAY ==
--- OUTSIDE RECORDS SUMMARY | 2003-08-27 19:00 | XMS_ITS | Continuity of Care Document ---
Author Name [facility] Address [address] [place] [address] Organization [facility] Care Team Providers Care Stitching Department Supervisor Name Role Phone [facility] Unavailable Unavailable Problems Problem Status Onset Date [...]
[2025-03-04 20:43] VITALS: BP 102/54; PULSE 75; RESP 18; TEMP 36.6; BMI 41.1
--- NOTE | 2025-03-04 20:47 | ECG_ITS ---
[facility] Date: 2025-03-04 Pat Name: Edson Jaffe Department: Room: Gender: Male Hand Polisher: : 1950 Requested By: Compa Langford Order Number: [id number] Reading MD: OSCAR NORRIS Measurements Intervals [place] Rate: 66 P: 44 WV: 197 QRS: 4 QRSD: 97 T: -26 QT: 411 QTc: 433 Interpretive Statements SINUS RHYTHM LOW QRS VOLTAGE IN PRECORDIAL LEADS [QRS DEFLECTION < 1.0 mV IN CHEST LEADS] NONSPECIFIC T-WAVE ABNORMALITY Compared to ECG 02/11/2025 03:04:14 Low QRS voltage now present T-wave abnormality now present Myocardial infarct finding no longer present ST (T wave) deviation no longer present Electronically Signed On 03-04-2025 21:33:33 CDT by OSCAR NORRIS [email or web address]
--- OUTSIDE RECORDS SUMMARY | 2025-03-04 20:48 | XMS_ITS | Encounter Summary ---
Author Organization [facility] Address [address] [place] [address] Care Team Providers Care Desizing Machine Operator Name Role Phone Roshan Jimenez DO Primary Care Provider Unav ailable Encounter Details Date Type Department Care Team (Latest Contact Info) Description 02/10/2004 Outpatient [facility] [address] [place] [address] Roshan Jimenez DO NO ADDRESS ON FILE CHRONIC AIRWAY OBSTRUCTION NEC ([facility]) (Primary Dx); HYPERTENSION NOS; OBESITY NOS; OSTEOARTHROS NOS-UNSPEC Social History Tobacco Use Types Packs/Day Years Used Date Smoking Tobacco: Never Assessed Sex and Gender Information Value Date Recorded Sex Assigned at Not on file 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 Gender Identity Not on file Sexual Orientation Not on file documented as of this encounter Plan of Treatment Not on file documented as of this encounter Visit Diagnoses Diagnosis Chronic airway obstruction, not elsewhere classified ([facility])- Primary Chronic airway obstruction, not elsewhere classified Unspecified essential hypertension Obesity, unspecified Osteoarthrosis, unspecified whether generalized or localized, unspecified site documented in this encounter Care Teams Desizing Machine Operator Relationship Specialty Start Date End Date Roshan Jimenez DO NO ADDRESS ON FILE PCP - General 03/26/03 documented as of this encounter
--- OUTSIDE RECORDS SUMMARY | 2025-03-04 20:48 | XMS_ITS | Encounter Summary ---
Author Organization [facility] Address [address] [place] [address] Care Team Providers Care Home Care Giver Name Role Phone Roshan Jimenez DO Primary Care Provider Unav ailable Encounter Details Date Type Department Care Team (Latest Contact Info) Description 11/25/2003 Outpatient Historical [facility] Podiatry-[place] [address] [place] [address] Noé Rosa, DPM [address] [place] [address] Onychia of toe (Primary Dx); INGROWING NAIL Social History Tobacco Use Types Packs/Day Years Used Date Smoking Tobacco: Never Assessed Sex and Gender Information Value Date Recorded Sex Assigned at Not on file 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
--- OUTSIDE RECORDS SUMMARY | 2025-03-04 20:48 | XMS_ITS | Encounter Summary ---
Author Organization [facility] Address [address] [place] [address] Care Team Providers Care Mold Setter Name Role Phone Roshan Jimenez DO Primary Care Provider Unav ailable Encounter Details Date Type Department Care Team (Latest Contact Info) Description 08/05/2003 Outpatient [facility] [place] [address] [place] [address] Roshan iJmenez DO NO ADDRESS ON FILE HYPERTENSION NOS (Primary Dx); CHRONIC AIRWAY OBSTRUCTION NEC (CMS/HCC); UNSPECIFIED VIRAL INFECTION Social History Tobacco Use Types Packs/Day Years Used Date Smoking Tobacco: Never Assessed Sex and Gender Information Value Date Recorded Sex Assigned at Not on file 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
--- OUTSIDE RECORDS SUMMARY | 2025-03-04 20:48 | XMS_ITS | Encounter Summary ---
Author Organization [facility] Address [address] [place] [address] Care Team Providers Care Retread Technician Name Role Phone Roshan Jimenez DO Primary Care Provider Unav ailable Encounter Details Date Type Department Care Team (Latest Contact Info) Description 03/26/2003 Outpatient Historical [facility] [place] [address] [facility] [address] [place] [address] Demetri Chávez MD [address] [facility] [address] [place] [address] SCREENING MAL NEOP-COLON (Primary Dx) Social History Tobacco Use Types Packs/Day Years Used Date Smoking Tobacco: Never Assessed Sex and Gender Information Value Date Recorded Sex Assigned at Not on file 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
--- OUTSIDE RECORDS SUMMARY | 2025-03-04 20:48 | XMS_ITS | Encounter Summary ---
Author Organization [facility] Address [address] [place] [address] Care Team Providers Care Corporate Consultant Name Role Phone Roshan Jimenez DO Primary Care Provider Unav ailable Encounter Details Date Type Department Care Team (Latest Contact Info) Description 11/11/2003 Outpatient [facility] Podiatry-[place] [place] [address] [place] [address] Noé Rosa, DPM [address] [place] [address] Onychia of toe (Primary Dx); INGROWING NAIL Social History Tobacco Use Types Packs/Day Years Used Date Smoking Tobacco: Never Assessed Sex and Gender Information Value Date Recorded Sex Assigned at Not on file 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
--- OUTSIDE RECORDS SUMMARY | 2025-03-04 20:48 | XMS_ITS | Encounter Summary ---
Author Organization [facility] Address [address] [place] [address] Care Team Providers Care Hospitalist Name Role Phone Roshan Jimenez DO Primary Care Provider Unav ailable Encounter Details Date Type Department Care Team (Latest Contact Info) Description 12/11/2002 Outpatient [facility] Podiatry-Stevo Bal [place] [address] [place] [address] Noé Rosa, DPM [address] [place] [address] Onychia of toe (Primary Dx) Social History Tobacco Use Types Packs/Day Years Used Date Smoking Tobacco: Never Assessed Sex and Gender Information Value Date Recorded Sex Assigned at Not on file Legal Sex Male 4:59 AM OPERATIONS SUPERVISOR Gender Identity Not on file Sexual Orientation Not on file documented as of this encounter Plan of Treatment Not on file documented as of this encounter Visit Diagnoses Diagnosis Onychia of toe- Primary Onychia and paronychia of toe documented in this encounter Care Teams Hospitalist Relationship Specialty Start Date End Date Roshan Jimenez DO NO ADDRESS ON FILE PCP - General 03/26/03 documented as of this encounter
--- OUTSIDE RECORDS SUMMARY | 2025-03-04 20:48 | XMS_ITS | Encounter Summary ---
Author Organization [facility] Address [address] [place] [address] Care Team Providers Care Manager Pricing Name Role Phone Roshan Jimenez DO Primary Care Provider Unav ailable Encounter Details Date Type Department Care Team (Latest Contact Info) Description 02/04/[address] [facility] [address] [place] [address] Roshan Jimenez DO NO ADDRESS ON FILE HYPERTENSION NOS (Primary Dx); OBESITY NOS; CHRONIC AIRWAY OBSTRUCTION NEC (CMS/[facility]); OSTEOARTHROS NOS-UNSPEC Social History Tobacco Use Types Packs/Day Years Used Date Smoking Tobacco: Never Assessed Sex and Gender Information Value Date Recorded Sex Assigned at Not on file Legal Sex Male 4:59 AM PET NUTRITION SPECIALIST Gender Identity Not on file Sexual Orientation Not on file documented as of this encounter Plan of Treatment Not on file documented as of this encounter Visit Diagnoses Diagnosis Unspecified essential hypertension- Primary Obesity, unspecified Chronic airway obstruction, not elsewhere classified (CMS/HCC) Chronic airway obstruction, not elsewhere classified Osteoarthrosis, unspecified whether generalized or localized, unspecified site documented in this encounter Care Teams Manager Pricing Relationship Specialty Start Date End Date Roshan Jimenez DO NO ADDRESS ON FILE PCP - General 03/26/03 documented as of this encounter
--- OUTSIDE RECORDS SUMMARY | 2025-03-04 20:48 | XMS_ITS | Encounter Summary ---
Author Organization [facility] Address [address] [place] [address] Care Team Providers Care Slag Mixer Name Role Phone Roshan Jimenez DO Primary Care Provider Unav ailable Encounter Details Date Type Department Care Team (Latest Contact Info) Description 08/09/2004 Outpatient [facility] [address] [address] Roshan Jimenez DO NO ADDRESS ON FILE CHRONIC AIRWAY OBSTRUCTION NEC ([facility]) (Primary Dx); REFLUX ESOPHAGITIS; HYPERTENSION NOS Social History Tobacco Use Types Packs/Day Years Used Date Smoking Tobacco: Never Assessed Sex and Gender Information Value Date Recorded Sex Assigned at Not on file 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
--- OUTSIDE RECORDS SUMMARY | 2025-03-04 20:48 | XMS_ITS | Encounter Summary ---
Author Organization [facility] Address [address] [place] [address] Care Team Providers Care Senior Climate Advisor Name Role Phone Roshan Jimenez DO Primary Care Provider Unav ailable Encounter Details Date Type Department Care Team (Latest Contact Info) Description 03/26/2003 Outpatient Historical [facility] Gastroenterology- [place] [address] [address] Demetri Chávez MD [address] [facility] [address] [place] [address] SCREENING MAL NEOP-COLON (Primary Dx) Social History Tobacco Use Types Packs/Day Years Used Date Smoking Tobacco: Never Assessed Sex and Gender Information Value Date Recorded Sex Assigned at Not on file Legal Sex Male 4:59 AM RN NIGHT Gender Identity Not on file Sexual Orientation Not on file documented as of this encounter Plan of Treatment Not on file documented as of this encounter Visit Diagnoses Diagnosis Special screening for malignant neoplasms, colon- Primary documented in this encounter Care Teams Senior Climate Advisor Relationship Specialty Start Date End Date Roshan Jimenez DO NO ADDRESS ON FILE PCP - General 03/26/03 documented as of this encounter
--- OUTSIDE RECORDS SUMMARY | 2025-03-04 20:49 | XMS_ITS | Encounter Summary ---
Author Organization [facility] Address [address] [place] [address] Care Team Providers Care Ferryboat Deckhand Name Role Phone Roshan Jimenez DO Primary Care Provider Unav ailable Encounter Details Date Type Department Care Team (Latest Contact Info) Description 12/23/1998 Outpatient Historical [facility] [address] [place] [address] Roshan Jimenez DO NO ADDRESS ON FILE Chronic airway obstruction, not elsewhere classified (CMS/HCC) (Primary Dx); Unspecified essential hypertension; Osteoarthrosis, unspecified whether generalized or localized, unspecified site Social History Tobacco Use Types Packs/Day Years Used Date Smoking Tobacco: Never Assessed Sex and Gender Information Value Date Recorded Sex Assigned at Not on file Legal Sex Male 4:59 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 Gender Identity Not on file Sexual Orientation Not on file documented as of this encounter Plan of Treatment Not on file documented as of this encounter Visit Diagnoses Diagnosis Chronic airway obstruction, not elsewhere classified (CMS/HCC)- Primary Chronic airway obstruction, not elsewhere classified Unspecified essential hypertension Osteoarthrosis, unspecified whether generalized or localized, unspecified site documented in this encounter Care Teams Ferryboat Deckhand Relationship Specialty Start Date End Date Roshan Jimenez DO NO ADDRESS ON FILE PCP - General 03/26/03 documented as of this encounter
--- OUTSIDE RECORDS SUMMARY | 2025-03-04 20:49 | XMS_ITS | Encounter Summary ---
Author Organization [employer] [facility] Address [address] [place] [address] Care Team Providers Care Rent And Housing Investigator Name Role Phone Roshan Jimenez DO Primary Care Provider Unav ailable Encounter Details Date Type Department Care Team (Latest Contact Info) Description 06/24/1998 Outpatient Historical [facility] Axel Armstrong NO ADDRESS ON FILE Localized osteoarthrosis not specified whether primary or secondary, lower leg (Primary Dx) Social History Tobacco Use Types Packs/Day Years Used Date Smoking Tobacco: Never Assessed Sex and Gender Information Value Date Recorded Sex Assigned at Not on file 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
--- OUTSIDE RECORDS SUMMARY | 2025-03-04 20:49 | XMS_ITS | Encounter Summary ---
Author Organization [facility] Address [address] [place] [address] Care Team Providers Care Cross Enterprise Integrator Name Role Phone Roshan Jimenez DO Primary Care Provider Unav ailable Encounter Details Date Type Department Care Team (Latest Contact Info) Description 01/01/2007 Outpatient Historical [facility] N[facility] Th[facility] 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
--- OUTSIDE RECORDS SUMMARY | 2025-03-04 20:49 | XMS_ITS | Encounter Summary ---
Author Organization [facility] Address [address] [place] [address] Care Team Providers Care Legal Writing Professor Name Role Phone Unavailable Primary Care Provider Unavailabl e Encounter Details Date Type Department Care Team (Late st Contact Info) Description 02/20/2025 Orders Only [facility] HIM [address] [place] [address] Provider, Abstract NO ADDRESS ON FILE Social [...] who hurts you emotionally and/or physically? No 02/17/2025 Food Insecurity Answer Date Recorded Patient needs follow up regardin 02/17/2025 Transportation Needs Answer Date Record ed Patient needs follow up regardin 02/17/2025 Housing Stability Answer Date Recorded Social/Environmental Concerns No concerns Utility Needs Answer Date Recorded Patient needs follow up regardin 02/17/2025 Sex and Gender Information Value Date Recorded Sex Assigned at Not on file Legal Sex Male 12:11 AM COOK HELPER PRESERVES Gender Identity Not on file Sexual Orientation Not on file documented as of this encounter Plan of Treatment Upcoming Encounters Date Type Department Care Team (Late st Contact Info) Description 04/01/2025 10:00 AM CDT Office Visit [facility] [address] [place] [phone] Dane Sierra MD [address] [place] [phone] Jazmyn Valiente FNP [address] [place] [phone] 10/24/2025 10:45 AM COOK HELPER PRESERVES Office Visit [facility] [address] [place] [phone] Dane Sierra MD [address] [place] [phone] documented as of this encounter Procedures Procedure Name Priority Date/Time Associated Diagnosis Comments COMPREHENSIVE METABOLIC PANEL Routine 02/12/2025 3:19 PM CDT documented in this encounter Results * COMPREHENSIVE METABOLIC PANEL (02/12/2025 3:19 PM CDT) Blood us Abstract Provider CHEMISTRY ORDERABLES Final Res ult documented in this encounter Visit Diagnoses Not on filedocumented in this encounter
--- OUTSIDE RECORDS SUMMARY | 2025-03-04 20:49 | XMS_ITS | Encounter Summary ---
Author Organization [facility] Address [address] [place] [address] Care Team Providers Care Collection Advisor Name Role Phone Roshan Jimenez DO Primary Care Provider Unav ailable Encounter Details Date Type Department Care Team (Late st Contact Info) Description 05/27/2008 Outpatient Historical [facility] [place] [facility] [address] [place] [address] Yusef Malagon MD NO ADDRESS ON FILE Social History Tobacco Use Types Packs/Day Years Used Date Smoking Tobacco: Every Day Cigarettes 1 40 Alcohol Use Standard Drinks/Week Comments No 0 (1 standard drink = 0.6 oz pur e alcohol) Sex and Gender Information Value Date Recorded Sex Assigned at Not on file Legal Sex Male 4:59 AM ARCHEOLOGIST CLASSICAL Gender Identity Not on file Sexual Orientation [...] 10:56 AM CDT) NITRITE UA NEGATIVE NEGATIVE [facility] UROBILINOGEN UA 0.2 0.2 [facility] CLARITY UA Clear Clear [facility] GLUCOSE UA NEGATIVE NEGATIVE [facility] SPECIFIC GRAVITY UA 1.005 <=1.005 [facility] PH UA 6.0 5.0 - 9.0 [facility] BILIRUBIN UA NEGATIVE NEGATIVE [facility] LEUKOCYTE ESTERASE UA NEGATIVE NEGATIVE [facility] MICRO EXAM No No [facility] KETONES UA NEGATIVE NEGATIVE [facility] COLOR UA Pale Yellow [facility] PROTEIN UA NEGATIVE NEGATIVE [facility] BLOOD UA NEGATIVE NEGATIVE [facility] Urine specimen (specimen) 05/27/2008 10:56 AM CDT 05/27/2008 10:56 AM CDT us Yusef Malagon MD URINE ORDERABLES Final Result Performing Organization Address City/State/[facility] Co de Phone Number INTERFACE SYSTEM Refer to clinic/hospital department [facility] CLIA# [id number] [address] [place] [address] * CBC WITH DIFFERENTIAL (05/27/2008 10:53 AM CDT) HEMATOCRIT 50.0 41.0 - 53.0 % [facility] PLATELETS 245 140 - 440 K/ul [facility] EOSINOPHILS 3.7 0.0 - 7.0 % [facility] WBC 8.5 4.8 - 10.8 K/ul [facility] EOSINOPHIL ABSOLUTE 0.3 0.0 - 0.7 K/ul [facility] RBC 5.00 4.60 - 6.20 Mil/ul [facility] MCHC 33.0 30.0 - 35.0 g/dL [facility] LYMPHOCYTES 25.7 24.0 - 44.0 % [facility] MONOCYTE ABSOLUTE 0.5 0.1 - 0.6 K/ul [facility] BASOPHILS ABSOLUTE 0.1 0.0 - 0.2 K/ul [facility] MCV 100.0 84.0 - 103.0 Fl [facility] BASOPHILS 0.7 0.0 - 1.0 % [facility] MPV 11.7 8.9 - 12.8 Fl [facility] HEMOGLOBIN 16.5 14.0 - 18.0 g/dL [facility] MONOCYTES 5.8 2.0 - 10.0 % [facility] RDW 14.3 11.0 - 14.5 % [facility] LYMPHOCYTE ABSOLUTE 2.2 1.2 - 4.0 K/ul [facility] NEUTROPHILS 64.1 42.2 - 75.2 % [facility] MCH 33.0 27.0 - 34.0 pg [facility] NEUTROPHIL ABSOLUTE 5.4 2.0 - 8.0 K/ul [facility] Blood specimen (specimen) 05/27/2008 10:53 AM CDT 05/27/2008 11:08 AM CDT us Yusef Malagon MD HEMATOLOGY ORDERABLES Final Re sult Performing Organization Address City/[facility] Co de Phone Number INTERFACE SYSTEM Refer to clinic/hospital department [facility] CLIA# [id number] [address] [place] [address] * ANTIBODY SCREEN (05/27/2008 10:53 AM CDT) ANTIBODY SCREEN Negative [facility] Blood specimen (specimen) 05/27/2008 10:53 AM CDT 05/27/2008 11:08 AM CDT us Yusef Malagon MD BLOOD BANK ORDERABLES Final Re sult Performing Organization Address City/[facility] Co de Phone Number INTERFACE SYSTEM Refer to clinic/hospital department [facility] CLIA# [id number] [address] [place] [address] * ABORH TYPING (05/27/2008 10:53 AM CDT) ABO/RH TYPE O Positive [facility] Blood specimen (specimen) 05/27/2008 10:53 AM CDT 05/27/2008 11:08 AM CDT us Yusef Malagon MD BLOOD BANK ORDERABLES Final Re sult Performing Organization Address [facility] Phone Number INTERFACE SYSTEM Refer to clinic/hospital department [facility] CLIA# [id number] [address] [place] [address] * BASIC METABOLIC PANEL (05/27/2008 10:53 AM CDT) POTASSIUM 4.0 3.5 - 5.0 mEq/L [facility] CO2 29 22 - 32 mmol/l [facility] CHLORIDE 109 95 - 110 mEq/L [facility] OSMOLALITY, CALCULATED 294 275 - 295 mOsm/Kg [facility] CREATININE 1.0 0.7 - 1.5 mg/dL [facility] CALCIUM 9.4 8.4 - 10.5 mg/dL [facility] SODIUM 143 136 - 145 mEq/L [facility] GLUCOSE 88 70 - 110 mg/dL [facility] ANION GAP 9 9 - 20 mEq/L [facility] BUN 16 9 - 20 mg/dL [facility] Blood specimen (specimen) 05/27/2008 10:53 AM CDT 05/27/2008 11:08 AM CDT us Yusef Malagon MD CHEMISTRY ORDERABLES Final Res ult Performing Organization Address [facility] de Phone Number INTERFACE SYSTEM Refer to clinic/hospital department [facility] CLIA# [id number] [address] [place] [address] documented in this encounter Visit Diagnoses Not on filedocumented in this encounter Care Teams Collection Advisor Relationship Specialty Start Date End Date Roshan Jimenez DO NO ADDRESS ON FILE PCP - General 03/26/03 documented as of this encounter
--- OUTSIDE RECORDS SUMMARY | 2025-03-04 20:49 | XMS_ITS | Encounter Summary ---
Author Organization [facility] Address [address] [place] [address] Care Team Providers Care Glass Tinter Name Role Phone Roshan Jimenez DO Primary Care Provider Unav ailable Encounter Details Date Type Department Care Team (Latest Contact Info) Description 04/20/1998 Outpatient [facility] [address] [place] [address] Roshan Jimenez DO NO ADDRESS ON FILE Acute bronchitis (Primary Dx); Obstructive chronic bronchitis with exacerbation (CMS/HCC); Tobacco use disorder; Edema Social History Tobacco Use Types Packs/Day Years Used Date Smoking Tobacco: Never Assessed Sex and Gender Information Value Date Recorded Sex Assigned at Not on file 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
--- OUTSIDE RECORDS SUMMARY | 2025-03-04 20:49 | XMS_ITS | Encounter Summary ---
Author Organization [facility] Address [address] [place] [address] Care Team Providers Care Gasoline Attendant Name Role Phone Roshan Jimenez DO Primary Care Provider Unav ailable Encounter Details Date Type Department Care Team (Latest Contact Info) Description 12/23/1998 Outpatient Historical [facility] Podiatry-[facility] [place] [address] [place] [address] Noé Rosa, DPM [address] [place] [address] Ingrowing nail (Primary Dx); Dermatophytosis of nail Social History Tobacco Use Types Packs/Day Years Used Date Smoking Tobacco: Never Assessed Sex and Gender Information Value Date Recorded Sex Assigned at Not on file Legal Sex Male 4:59 AM CVIR TECH Gender Identity Not on file Sexual Orientation Not on file documented as of this encounter Plan of Treatment Not on file documented as of this encounter Visit Diagnoses Diagnosis Ingrowing nail- Primary Dermatophytosis of nail documented in this encounter Care Teams Gasoline Attendant Relationship Specialty Start Date End Date Roshan Jimenez DO NO ADDRESS ON FILE PCP - General 03/26/03 documented as of this encounter
--- OUTSIDE RECORDS SUMMARY | 2025-03-04 20:49 | XMS_ITS | Encounter Summary ---
Author Organization [facility] Address [address] [place] [address] Care Team Providers Care Cone Former Name Role Phone Roshan Jimenez DO Primary Care Provider Unav ailable Encounter Details Date Type Department Care Team (Latest Contact Info) Description 06/23/1999 Outpatient [facility] [address] [place] [address] Roshan Jimenez DO NO ADDRESS ON FILE Unspecified essential hypertension (Primary Dx); Reflux esophagitis; Obesity, unspecified; Chronic airway obstruction, not elsewhere classified (CMS/HCC) Social History Tobacco Use Types Packs/Day Years Used Date Smoking Tobacco: Never Assessed Sex and Gender Information Value Date Recorded Sex Assigned at Not on file Legal Sex Male 4:59 AM CONTRACTS DIRECTOR Gender Identity Not on file Sexual Orientation Not on file documented as of this encounter Plan of Treatment Not on file documented as of this encounter Visit Diagnoses Diagnosis Unspecified essential hypertension- Primary Reflux esophagitis Obesity, unspecified Chronic airway obstruction, not elsewhere classified (CMS/HCC) Chronic airway obstruction, not elsewhere classified documented in this encounter Care Teams Cone Former Relationship Specialty Start Date End Date Roshan Jimenez DO NO ADDRESS ON FILE PCP - General 03/26/03 documented as of this encounter
--- OUTSIDE RECORDS SUMMARY | 2025-03-04 20:49 | XMS_ITS | Encounter Summary ---
Author Organization [facility] Address [address] [place] [address] Care Team Providers Care Surface Ship Usw Supervisor Name Role Phone Roshan Jimenez DO Primary Care Provider Unav ailable Encounter Details Date Type Department Care Team (Latest Contact Info) Description 05/20/1998 Outpatient [facility] [address] [place] [address] Roshan Jimenez DO NO ADDRESS ON FILE Unspecified essential hypertension (Primary Dx); Obstructive chronic bronchitis without exacerbation (CMS/HCC); Depressive type psychosis; Abdominal pain, unspecified site Social History Tobacco Use Types Packs/Day Years Used Date Smoking Tobacco: Never Assessed Sex and Gender Information Value Date Recorded Sex Assigned at Not on file 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 Sex Male 4:59 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
--- OUTSIDE RECORDS SUMMARY | 2025-03-04 20:49 | XMS_ITS | Encounter Summary ---
Author Organization [facility] Address [address] [place] [address] Care Team Providers Care Chef Head Name Role Phone Roshan Jimenez DO Primary Care Provider Unav ailable Encounter Details Date Type Department Care Team (Late st Contact Info) Description 11/09/2006 Outpatient Historical [facility] [place], John Messer MD NO ADDRESS ON FILE Obstructive Sleep Apnea (Adult) (Pediatric) (Primary Dx) Social History Tobacco Use Types Packs/Day Years Used Date Smoking Tobacco: Never Assessed Sex and Gender Information Value Date Recorded Sex Assigned at Not on file 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
--- OUTSIDE RECORDS SUMMARY | 2025-03-04 20:49 | XMS_ITS | Encounter Summary ---
Author Organization [facility] Address [address] [place] [address] Care Team Providers Care Electromatic Typist Name Role Phone Roshan Jimenez DO Primary Care Provider Unav ailable Encounter Details Date Type Department Care Team (Latest Contact Info) Description 07/13/2005 Outpatient [facility] [address] [place] [phone] Roshan Jimenez DO NO ADDRESS ON FILE ASTHMA UNSPECIFIED (Primary Dx); CHRONIC AIRWAY OBSTRUCTION NEC (CMS/[facility]); OBESITY NOS; VACCINE FOR STREP PNEUMONIAE Social History Tobacco Use Types Packs/Day Years Used Date Smoking Tobacco: Never Assessed Sex and Gender Information Value Date Recorded Sex Assigned at Not on file Legal Sex Male 4:59 AM LEGAL BILLING SPECIALIST Gender Identity Not on file Sexual [...] (pneumococcus) documented in this encounter Care Teams Electromatic Typist Relationship Specialty Start Date End Date Roshan Jimenez DO NO ADDRESS ON FILE PCP - General 03/26/03 documented as of this encounter
--- OUTSIDE RECORDS SUMMARY | 2025-03-04 20:49 | XMS_ITS | Encounter Summary ---
Author Organization [facility] Address [address] [place] [address] Care Team Providers Care Safety Equipment Tester Name Role Phone Roshan Jimenez DO Primary Care Provider Unav ailable Encounter Details Date Type Department Care Team (Latest Contact Info) Description 04/29/2005 Outpatient Historical [facility] [address] [place] [phone] Merlin Reilly MD NO ADDRESS ON FILE HYPERSOMNIA W SLEEP APNEA NOS (Primary Dx) Social History Tobacco Use Types Packs/Day Years Used Date Smoking Tobacco: Never Assessed Sex and Gender Information Value Date Recorded Sex Assigned at Not on file Legal Sex Male 4:59 AM 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
--- OUTSIDE RECORDS SUMMARY | 2025-03-04 20:49 | XMS_ITS | Encounter Summary ---
Author Organization [facility] Address [address] [place] [address] Care Team Providers Care Tour Driver Name Role Phone Roshan Jimenez DO Primary Care Provider Unav ailable Encounter Details Date Type Department Care Team (Latest Contact Info) Description 12/23/1999 Outpatient [facility] [address] [place] [address] Roshan Jimenez DO NO ADDRESS ON FILE Unspecified essential hypertension (Primary Dx); Allergic rhinitis, cause unspecified; Chronic airway obstruction, not elsewhere classified (CMS/HCC); Obesity, unspecified Social History Tobacco Use Types Packs/Day Years Used Date Smoking Tobacco: Never Assessed Sex and Gender Information Value Date Recorded Sex Assigned at Not on file 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 Male 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
--- OUTSIDE RECORDS SUMMARY | 2025-03-04 20:49 | XMS_ITS | Encounter Summary ---
Author Organization [facility] Address [address] [place] [address] Care Team Providers Care Obstetric Anaesthetist Name Role Phone Roshan Jimenez DO Primary Care Provider Unav ailable Encounter Details Date Type Department Care Team (Latest Contact Info) Description 01/06/1999 Outpatient Historical [facility] Podiatry-[facility] [place] [address] [place] [address] Noé Rosa, DPM [address] [place] [address] Ingrowing nail (Primary Dx) Social History Tobacco Use Types Packs/Day Years Used Date Smoking Tobacco: Never Assessed Sex and Gender Information Value Date Recorded Sex Assigned at Not on file Legal Sex Male 4:59 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
--- OUTSIDE RECORDS SUMMARY | 2025-03-04 20:49 | XMS_ITS | Encounter Summary ---
Author Organization [facility] Address [address] [place] [address] Care Team Providers Care Flue Tile Press Operator Name Role Phone Roshan Jimenez DO Primary Care Provider Unav ailable Encounter Details Date Type Department Care Team (Latest Contact Info) Description 03/09/2005 Outpatient Historical [facility] [address] [place] [address] Zofia Gleason, CURB BUILDER [address] [place] [address] HYPERSOMNI W SLEEP APNEA (Primary Dx) Social History Tobacco Use Types Packs/Day Years Used Date Smoking Tobacco: Never Assessed Sex and Gender Information Value Date Recorded Sex Assigned at Not on file Legal Sex Male 4:59 AM INTERN Gender Identity Not on file Sexual Orientation Not on file documented as of this encounter Plan of Treatment Not on file documented as of this encounter Visit Diagnoses Diagnosis Hypersomnia with sleep apnea, unspecified- Primary documented in this encounter Care Teams Flue Tile Press Operator Relationship Specialty Start Date End Date Roshan Jimenez DO NO ADDRESS ON FILE PCP - General 03/26/03 documented as of this encounter
--- OUTSIDE RECORDS SUMMARY | 2025-03-04 20:49 | XMS_ITS | Encounter Summary ---
Author Organization [facility] Address [address] [place] [address] Care Team Providers Care Microfilming Document Preparer Name Role Phone Roshan Jimenez DO Primary Care Provider Unav ailable Encounter Details Date Type Department Care Team (Late st Contact Info) Description 04/29/2005 Outpatient [facility] [address] [place] [phone] Social History Tobacco Use Types Packs/Day Years Used Date Smoking Tobacco: Never Assessed Sex and Gender Information Value Date Recorded Sex Assigned at Not on file Legal Sex Male 4:59 AM FLIGHT OPERATIONS SPECIALIST Gender Identity Not on file Sexual Orientation Not on file documented as of this encounter Plan of Treatment Not on file documented as of this encounter Visit Diagnoses Not on filedocumented in this encounter Care Teams Microfilming Document Preparer Relationship Specialty Start Date End Date Roshan Jimenez DO NO ADDRESS ON FILE PCP - General 03/26/03 documented as of this encounter
--- OUTSIDE RECORDS SUMMARY | 2025-03-04 20:49 | XMS_ITS | Encounter Summary ---
Author Organization [employer] [facility] Address [address] [place] [address] Care Team Providers Care Operator Supply Name Role Phone Roshan Jimenez DO Primary Care Provider Unav ailable Encounter Details Date Type Department Care Team (Latest Contact Info) Description 12/31/1997 Outpatient Historical [facility] Axel Armstrong NO ADDRESS ON FILE Localized osteoarthrosis not specified whether primary or secondary, lower leg (Primary Dx) Social History Tobacco Use Types Packs/Day Years Used Date Smoking Tobacco: Never Assessed Sex and Gender Information Value Date Recorded Sex Assigned at Not on file 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
--- OUTSIDE RECORDS SUMMARY | 2025-03-04 20:49 | XMS_ITS | Encounter Summary ---
Author Organization [facility] Address [address] [place] [address] Care Team Providers Care Toy Stuffer Name Role Phone Unavailable Primary Care Provider Unavailabl e Encounter Details Date Type Department Care Team (Late st Contact Info) Description 02/14/2025 Results Follow-Up [facility] [address] [place] [phone] Ryan Mathews MD [address] [place] [phone] SENIOR TRAINING SPECIALIST PROCEDURE Social History Tobacco Use Types Packs/Day Years [...] on file Legal Sex Male 12:11 AM BIOLOGY SPECIMEN TECHNICIAN Gender Identity Not on file Sexual Orientation Not on file documented as of this encounter Plan of Treatment Upcoming Encounters Date Type Department Care Team (Late st Contact Info) Description 04/01/2025 10:00 AM CDT Office Visit [facility] [address] [place] [phone] Dane Sierra MD [address] [place] [phone] Jazmyn Valiente FNP [address] [place] [phone] 10/24/2025 10:45 AM BIOLOGY SPECIMEN TECHNICIAN Office Visit [facility] [address] [place] [phone] Dane Sierra MD [address] [place] [phone] documented as of this encounter Visit Diagnoses Not on filedocumented in this encounter
--- OUTSIDE RECORDS SUMMARY | 2025-03-04 20:49 | XMS_ITS | Encounter Summary ---
Author Organization [facility] Address [address] [place] [address] Care Team Providers Care Banbury Mixer Operator Name Role Phone Roshan Jimenez DO Primary Care Provider Unav ailable Encounter Details Date Type Department Care Team (Latest Contact Info) Description 02/15/2005 Outpatient Historical [facility] [address] [place] [address] Roshan Jimenez DO NO ADDRESS ON FILE CORONARY ATHEROSCLER UNSPEC VESSEL (Primary Dx) Social History Tobacco Use Types Packs/Day Years Used Date Smoking Tobacco: Never Assessed Sex and Gender Information Value Date Recorded Sex Assigned at Not on file 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
--- OUTSIDE RECORDS SUMMARY | 2025-03-04 20:49 | XMS_ITS | Encounter Summary ---
Author Organization [facility] Address [address] [place] [address] Care Team Providers Care Acute Care Clinical Nurse Specialist Name Role Phone Roshan Jimenez DO Primary Care Provider Unav ailable Encounter Details Date Type Department Care Team (Latest Contact Info) Description 04/13/1998 Outpatient [facility] [address] [place] [phone] Roshan Jimenez DO NO ADDRESS ON FILE Obstructive chronic bronchitis with exacerbation (CMS/HCC) (Primary Dx); Malaise and fatigue; Tobacco use disorder; Unspecified essential hypertension; Acute bronchitis Social History Tobacco Use Types Packs/Day Years Used Date Smoking Tobacco: Never Assessed Sex and Gender Information Value Date Recorded Sex Assigned at Not on file 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 Gender Identity Not on file Sexual Orientation Not on file documented as of this encounter Plan of Treatment Not on file documented as of this encounter Visit Diagnoses Diagnosis Obstructive chronic bronchitis with exacerbation (CMS/HCC)- Primary Obstructive chronic bronchitis with exacerbation Malaise and fatigue Tobacco use disorder Unspecified essential hypertension Acute bronchitis documented in this encounter Care Teams Acute Care Clinical Nurse Specialist Relationship Specialty Start Date End Date Roshan Jimenez DO NO ADDRESS ON FILE PCP - General 03/26/03 documented as of this encounter
--- OUTSIDE RECORDS SUMMARY | 2025-03-04 20:49 | XMS_ITS | Encounter Summary ---
Author Organization [facility] Address [address] [place] [address] Care Team Providers Care Manager Configuration Name Role Phone Roshan Jimenez DO Primary Care Provider Unav ailable Encounter Details Date Type Department Care Team (Latest Contact Info) Description 04/18/2006 Outpatient [facility] [address] [place] [address] Roshan Jimenez DO NO ADDRESS ON FILE Depressive Disorder, not Elsewhere Classified (Primary Dx); Anxiety State, Unspecified; Unspecified Essential Hypertension Social History Tobacco Use Types Packs/Day Years Used Date Smoking Tobacco: Never Assessed Sex and Gender Information Value Date Recorded Sex Assigned at Not on file Legal Sex Male 4:59 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
--- OUTSIDE RECORDS SUMMARY | 2025-03-04 20:49 | XMS_ITS | Encounter Summary ---
Author Organization [facility] Address [address] [place] [address] Care Team Providers Care Resident Assistant Name Role Phone Roshan Jimenez DO Primary Care Provider Unav ailable Encounter Details Date Type Department Care Team (Latest Contact Info) Description 02/20/2007 Outpatient [facility] [address] [place] [address] Roshan Jimenez DO NO ADDRESS ON FILE Chronic Airway Obstruction, not Elsewhere Classified (CMS/HCC) (Primary Dx); Unspecified Asthma; Obesity, Unspecified; Tobacco Use Disorder Social History Tobacco Use Types Packs/Day Years Used Date Smoking Tobacco: Never Assessed Sex and Gender Information Value Date Recorded Sex Assigned at Not on file 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
--- OUTSIDE RECORDS SUMMARY | 2025-03-04 20:49 | XMS_ITS | Encounter Summary ---
Author Organization [facility] Address [address] [place] [address] Care Team Providers Care Logistics And Planning Manager Name Role Phone Roshan Jimenez DO Primary Care Provider Unav ailable Encounter Details Date Type Department Care Team (Latest Contact Info) Description 01/22/1999 Outpatient Historical [facility] [place] [address] [place] [address] Noé Rosa, DPM [address] [place] [address] Ingrowing nail (Primary Dx) Social History Tobacco Use Types Packs/Day Years Used Date Smoking Tobacco: Never Assessed Sex and Gender Information Value Date Recorded Sex Assigned at Not on file 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
--- OUTSIDE RECORDS SUMMARY | 2025-03-04 20:49 | XMS_ITS | Encounter Summary ---
Author Organization [facility] Address [address] [place] [address] Care Team Providers Care Potato Chip Fryer Name Role Phone Roshan Jimenez DO Primary Care Provider Unav ailable Encounter Details Date Type Department Care Team (Latest Contact Info) Description 06/19/1998 Outpatient [facility] [address] [place] [address] Roshan Jimenez DO NO ADDRESS ON FILE Obstructive chronic bronchitis without exacerbation (CMS/HCC) (Primary Dx); Tobacco use disorder; Obesity, unspecified; Unspecified essential hypertension Social History Tobacco Use Types Packs/Day Years Used Date Smoking Tobacco: Never Assessed Sex and Gender Information Value Date Recorded Sex Assigned at Not on file 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
--- OUTSIDE RECORDS SUMMARY | 2025-03-04 20:49 | XMS_ITS | Encounter Summary ---
Author Organization [facility] Address [address] [place] [address] Care Team Providers Care Pointer Helper Name Role Phone Roshan Jimenez DO Primary Care Provider Unav ailable Encounter Details Date Type Department Care Team (Latest Contact Info) Description 11/30/2006 Outpatient Historical [facility] Ear, Nose and Throat 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
--- OUTSIDE RECORDS SUMMARY | 2025-03-04 20:49 | XMS_ITS | Encounter Summary ---
Author Organization [facility] Address [address] [place] [address] Care Team Providers Care Intelligence Intern Name Role Phone Roshan Jimenez DO Primary Care Provider Unav ailable Encounter Details Date Type Department Care Team (Latest Contact Info) Description 02/15/2005 Outpatient [facility] [address] [place] [address] Roshan Jimenez DO NO ADDRESS ON FILE CHRONIC AIRWAY OBSTRUCTION NEC ([facility]) (Primary Dx); OBESITY NOS; HYPERTENSION NOS; OTHER UNSPEC SLEEP APNEA Social History Tobacco Use Types Packs/Day Years Used Date Smoking Tobacco: Never Assessed Sex and Gender Information Value Date Recorded Sex Assigned at Not on file 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 Gender Identity Not on file Sexual Orientation Not on file documented as of this encounter Plan of Treatment Not on file documented as of this encounter Visit Diagnoses Diagnosis Chronic airway obstruction, not elsewhere classified ([facility])- Primary Chronic airway obstruction, not elsewhere classified Obesity, unspecified Unspecified essential hypertension Unspecified sleep apnea documented in this encounter Care Teams Intelligence Intern Relationship Specialty Start Date End Date Roshan Jimenez DO NO ADDRESS ON FILE PCP - General 03/26/03 documented as of this encounter
--- OUTSIDE RECORDS SUMMARY | 2025-03-04 20:49 | XMS_ITS | Encounter Summary ---
Author Organization [facility] Address [address] [place] [address] Care Team Providers Care Channeler Insole Name Role Phone Roshan Jimenez DO Primary [...] on file Legal Sex Male 4:59 AM SAMPLE SUPERVISOR Gender Identity Not on file Sexual [...] CDT) PROTIME 23.5(H) 12.8 - 15.8 Secs [facility] Comment:As of 2007 not e change in normal range. INR 1.9 [facility] Comment: Expected Values for INR: DVT/PE Goal INR 2.5; range 2.0 - 3.0 Valve Replacement Tissue Goal INR 2.5; range 2.0 - 3.0 Mechanical Goal INR 3.0; range 2.5 - 3.5 POST-TX Goal INR 2.5; range 2.0 - 3.0 or Goal 3.0; range 2.5 - 3.5 Atrial Fibrillation Goal INR 2.5; range 2.0 - 3.0 Ischemic Stroke Goal INR 2.5; range 2.0 - 3.0 For additional information see Guidelines for Anticoagulation available from the pharmacy [facility] [phone] Blood specimen (specimen) 06/09/2008 4:58 AM CDT 06/09/2008 5:24 AM CDT us Moiz Barros MD HEMATOLOGY ORDERABLES Fi nal Result INTERFACE SYSTEM Refer to clinic/hospital department [facility] CLIA# [id number] [address] [place] [address] * (ABNORMAL) PROTIME-INR (06/08/2008 4:50 AM CDT) INR 1.5 [facility] Comment: Expected Values for INR: DVT/PE Goal INR 2.5; range 2.0 - 3.0 Valve Replacement Tissue Goal INR 2.5; range 2.0 - 3.0 Mechanical Goal INR 3.0; range 2.5 - 3.5 POST-TX Goal INR 2.5; range 2.0 - 3.0 or Goal 3.0; range 2.5 - 3.5 Atrial Fibrillation Goal INR 2.5; range 2.0 - 3.0 Ischemic Stroke Goal INR 2.5; range 2.0 - 3.0 For additional information see Guidelines for Anticoagulation available from the pharmacy [facility] [phone] PROTIME 20.0(H) 12.8 - 15.8 Secs [facility] Comment:As of 2007 not e change in normal range. Blood specimen (specimen) 06/08/2008 4:50 AM CDT 06/08/2008 5:18 AM CDT us Moiz Barros MD HEMATOLOGY ORDERABLES Fi nal Result INTERFACE SYSTEM Refer to clinic/hospital department [facility] CLIA# [id number] [address] [place] [address] * (ABNORMAL) CBC WITH DIFFERENTIAL (06/07/2008 5:35 AM CDT) NEUTROPHIL ABSOLUTE 10.9(H) 2.0 - 8.0 K/ul [facility] HEMATOCRIT 40.7(L) 41.0 - 53.0 % [facility] PLATELETS 188 140 - 440 K/ul [facility] EOSINOPHIL ABSOLUTE 0.1 0.0 - 0.7 K/ul [facility] EOSINOPHILS 0.7 0.0 - 7.0 % [facility] RBC 4.15(L) 4.60 - 6.20 Mil/ul [facility] MCHC 32.9 30.0 - 35.0 g/dL [facility] LYMPHOCYTE ABSOLUTE 1.7 1.2 - 4.0 K/ul [facility] LYMPHOCYTES 11.5(L) 24.0 - 44.0 % [facility] MCV 98.1 84.0 - 103.0 Fl [facility] BASOPHILS 0.2 0.0 - 1.0 % [facility] MPV 10.4 8.9 - 12.8 Fl [facility] BASOPHILS ABSOLUTE 0.0 0.0 - 0.2 K/ul [facility] HEMOGLOBIN 13.4(L) 14.0 - 18.0 g/dL [facility] RDW 14.0 11.0 - 14.5 % [facility] MONOCYTES 11.5(H) 2.0 - 10.0 % [facility] MONOCYTE ABSOLUTE 1.7(H) 0.1 - 0.6 K/ul [facility] WBC 14.4(H) 4.8 - 10.8 K/ul [facility] MCH 32.3 27.0 - 34.0 pg [facility] NEUTROPHILS 76.1(H) 42.2 - 75.2 % [facility] Blood specimen (specimen) 06/07/2008 5:35 AM CDT 06/07/2008 5:47 AM CDT us Moiz Barros MD HEMATOLOGY ORDERABLES Fi nal Result INTERFACE SYSTEM Refer to clinic/hospital department [facility]# [id number] [address] [place] [address] * (ABNORMAL) PROTIME-INR (06/07/2008 5:35 AM CDT) PROTIME 18.6(H) 12.8 - 15.8 Secs [facility] Comment:As of 2007 not e change in normal range. INR 1.4 [facility] Comment: Expected Values for INR: DVT/PE Goal INR 2.5; range 2.0 - 3.0 Valve Replacement Tissue Goal INR 2.5; range 2.0 - 3.0 Mechanical Goal INR 3.0; range 2.5 - 3.5 POST-TX Goal INR 2.5; range 2.0 - 3.0 or Goal 3.0; range 2.5 - 3.5 Atrial Fibrillation Goal INR 2.5; range 2.0 - 3.0 Ischemic Stroke Goal INR 2.5; range 2.0 - 3.0 For additional information see Guidelines for Anticoagulation available from the pharmacy [facility] [phone] Blood specimen (specimen) 06/07/2008 5:35 AM CDT 06/07/2008 5:47 AM CDT us Yusef Malagon MD HEMATOLOGY ORDERABLES Final Re sult INTERFACE SYSTEM Refer to clinic/hospital department [facility] CLIA# [id number] [address] [place] [address] * (ABNORMAL) PROTIME-INR (06/06/2008 5:32 AM CDT) PROTIME 16.3(H) 12.8 - 15.8 Secs [facility] Comment:As of 2007 not e change in normal range. INR 1.2 [facility] Comment: Expected Values for INR: DVT/PE Goal INR 2.5; range 2.0 - 3.0 Valve Replacement Tissue Goal INR 2.5; range 2.0 - 3.0 Mechanical Goal INR 3.0; range 2.5 - 3.5 POST-TX Goal INR 2.5; range 2.0 - 3.0 or Goal 3.0; range 2.5 - 3.5 Atrial Fibrillation Goal INR 2.5; range 2.0 - 3.0 Ischemic Stroke Goal INR 2.5; range 2.0 - 3.0 For additional information see Guidelines for Anticoagulation available from the pharmacy [facility] [phone] Blood specimen (specimen) 06/06/2008 5:32 AM CDT 06/06/2008 5:54 AM CDT us Yusef Malagon MD HEMATOLOGY ORDERABLES Final Re sult INTERFACE SYSTEM Refer to clinic/hospital department [facility] CLIA# [id number] [address] [place] [address] * (ABNORMAL) CBC WITH DIFFERENTIAL (06/06/2008 5:32 AM CDT) BASOPHILS 0.3 0.0 - 1.0 % [facility] BASOPHILS ABSOLUTE 0.0 0.0 - 0.2 K/ul [facility] HEMATOCRIT 40.4(L) 41.0 - 53.0 % [facility] PLATELETS 217 140 - 440 K/ul [facility] MONOCYTES 11.3(H) 2.0 - 10.0 % [facility] MONOCYTE ABSOLUTE 1.4(H) 0.1 - 0.6 K/ul [facility] RBC 4.12(L) 4.60 - 6.20 Mil/ul [facility] MCHC 32.7 30.0 - 35.0 g/dL [facility] NEUTROPHIL ABSOLUTE 9.3(H) 2.0 - 8.0 K/ul [facility] MCV 98.1 84.0 - 103.0 Fl [facility] MPV 10.9 8.9 - 12.8 Fl [facility] EOSINOPHIL ABSOLUTE 0.1 0.0 - 0.7 K/ul [facility] EOSINOPHILS 0.6 0.0 - 7.0 % [facility] HEMOGLOBIN 13.2(L) 14.0 - 18.0 g/dL [facility] RDW 13.8 11.0 - 14.5 % [facility] LYMPHOCYTE ABSOLUTE 1.7 1.2 - 4.0 K/ul [facility] LYMPHOCYTES 13.7(L) 24.0 - 44.0 % [facility] WBC 12.5(H) 4.8 - 10.8 K/ul [facility] NEUTROPHILS 74.1 42.2 - 75.2 % [facility] MCH 32.0 27.0 - 34.0 pg [facility] Blood specimen (specimen) 06/06/2008 5:32 AM CDT 06/06/2008 5:56 AM CDT us Yusef Malagon MD HEMATOLOGY ORDERABLES Final Re sult Performing Organization Address [facility] Phone Number INTERFACE SYSTEM Refer to clinic/hospital department [facility] CLIA# [id number] [address] [place] [address] * (ABNORMAL) BASIC METABOLIC PANEL (06/06/2008 5:32 AM CDT) [facility] SODIUM 137 136 - 145 mEq/L [facility] ANION GAP 9 9 - 20 mEq/L [facility] BUN 13 9 - 20 mg/dL [facility] CO2 26 22 - 32 mmol/l [facility] OSMOLALITY, CALCULATED 283 275 - 295 mOsm/Kg [facility] POTASSIUM 3.7 3.5 - 5.0 mEq/L [facility] CREATININE 0.8 0.7 - 1.5 mg/dL [facility] CALCIUM 8.9 8.4 - 10.5 mg/dL [facility] GLUCOSE 122(H) 70 - 110 mg/dL [facility] CHLORIDE 106 95 - 110 mEq/L [facility] Blood specimen (specimen) 06/06/2008 5:32 AM CDT 06/06/2008 5:56 AM CDT us Yusef Malagon MD CHEMISTRY ORDERABLES Final Res ult Performing Organization Address [facility] [[email or web address]] de Phone Number INTERFACE SYSTEM Refer to [facility] CLIA# [id number] [address] [place] [address] * (ABNORMAL) POC GLUCOSE (06/05/2008 3:01 PM CDT) GLUCOSE POC 115(H) 60 - 100 mg/dL [facility] Venous blood specimen (specimen) 06/05/2008 3:01 PM CDT 06/05/2008 4:38 PM CDT us Yusef Malagon MD POINT OF CARE TESTING Final Re sult INTERFACE SYSTEM Refer to clinic/hospital department [facility] CLIA# [id number] [address] [place] [address] * XR KNEE 1 OR 2 VW [...] Geovanna Sheriff M.D. Date Signed: 06/05/08 JAW Procedure [...] GLUCOSE POC 94 60 - 100 mg/dL [facility] Venous blood specimen (specimen) 06/05/2008 11:08 AM CDT 06/06/2008 7:27 AM CDT us Yusef Malagon MD POINT OF CARE TESTING Final Re sult Performing Organization Address City/[facility] Co de Phone Number INTERFACE SYSTEM Refer to clinic/hospital department [facility] CLIA# [id number] [address] [place] [address] * TYPE AND CROSSMATCH (06/05/2008 6:35 AM CDT) Pathologist [facility] BLOOD BANK PRODUCT INTERFACE SYSTEM Blood specimen (specimen) 06/05/2008 6:35 AM CDT 06/05/2008 6:35 AM CDT us Yusef Malagon MD BLOOD BANK ORDERABLES Final Re sult Performing Organization Address City/[email or web address]] de Phone Number INTERFACE SYSTEM Refer to clinic/hospital department documented in this encounter Visit Diagnoses Not on filedocumented in this encounter Care Teams Channeler Insole Relationship Specialty Start Date End Date Roshan Jimenez DO NO ADDRESS ON FILE PCP - General 03/26/03 documented as of this encounter
--- OUTSIDE RECORDS SUMMARY | 2025-03-04 20:49 | XMS_ITS | Encounter Summary ---
Author Organization [facility] Address [address] [place] [address] Care Team Providers Care Nitroglycerin Supervisor Name Role Phone Roshan Jimenez DO Primary Care Provider Unav ailable Encounter Details Date Type Department Care Team (Latest Contact Info) Description 09/17/1998 Outpatient [facility] [address] [place] [address] Roshan Jimenez DO NO ADDRESS ON FILE Unspecified essential hypertension (Primary Dx); Obesity, unspecified; Obstructive chronic bronchitis without exacerbation (CMS/HCC); Reflux esophagitis Social History Tobacco Use Types Packs/Day Years Used Date Smoking Tobacco: Never Assessed Sex and Gender Information Value Date Recorded Sex Assigned at Not on file 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
--- OUTSIDE RECORDS SUMMARY | 2025-03-04 20:49 | XMS_ITS | Encounter Summary ---
Author Organization [facility] Address [address] [place] [address] Care Team Providers Care Curing Bin Operator Name Role Phone Roshan Jimenez DO Primary Care Provider Unav ailable Encounter Details Date Type Department Care Team (Latest Contact Info) Description 11/27/2002 Outpatient Historical [facility] Podiatry-[place] [place] [address] [place] [address] Noé Rosa, DPM [address] [place] [address] Onychia of toe (Primary Dx); INGROWING NAIL Social History Tobacco Use Types Packs/Day Years Used Date Smoking Tobacco: Never Assessed Sex and Gender Information Value Date Recorded Sex Assigned at Not on file Legal Sex Male 4:59 AM EMISSION SPECIALIST Gender Identity Not on file Sexual Orientation Not on file documented as of this encounter Plan of Treatment Not on file documented as of this encounter Visit Diagnoses Diagnosis Onychia of toe- Primary Onychia and paronychia of toe Ingrowing nail documented in this encounter Care Teams Curing Bin Operator Relationship Specialty Start Date End Date Roshan Jimenez DO NO ADDRESS ON FILE PCP - General 03/26/03 documented as of this encounter
--- OUTSIDE RECORDS SUMMARY | 2025-03-04 20:49 | XMS_ITS | Encounter Summary ---
Author Organization [employer] [facility] Address [address] [place] [address] Care Team Providers Care Migration Agent Name Role Phone Roshan Jimenez DO Primary Care Provider Unav ailable Encounter Details Date Type Department Care Team (Latest Contact Info) Description 12/22/1999 Outpatient Historical [facility] Axel Armstrong NO ADDRESS ON FILE Localized osteoarthrosis not specified whether primary or secondary, lower leg (Primary Dx); Pain in joint, lower leg Social History Tobacco Use Types Packs/Day Years Used Date Smoking Tobacco: Never Assessed Sex and Gender Information Value Date Recorded Sex Assigned at Not on file Legal Sex Male 4:59 AM 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
--- OUTSIDE RECORDS SUMMARY | 2025-03-04 20:49 | XMS_ITS | Encounter Summary ---
Author Organization [facility] Address [address] [place] [address] Care Team Providers Care Heel Former Name Role Phone Roshan Jimenez DO Primary Care Provider Unav ailable Encounter Details Date Type Department Care Team (Latest Contact Info) Description 07/17/2006 Outpatient [facility] [address] [place] [address] Roshan Jimenez DO NO ADDRESS ON FILE Unspecified Essential Hypertension (Primary Dx); Unspecified Asthma; Depressive Disorder, not Elsewhere Classified Social History Tobacco Use Types Packs/Day Years Used Date Smoking Tobacco: Never Assessed Sex and Gender Information Value Date Recorded Sex Assigned at Not on file 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
--- OUTSIDE RECORDS SUMMARY | 2025-03-04 20:49 | XMS_ITS | Encounter Summary ---
Author Organization [facility] Address [address] [place] [address] Care Team Providers Care Screen Printing Machine Operator Name Role Phone Roshan Jimenez DO Primary Care Provider Unav ailable Encounter Details Date Type Department Care Team (Latest Contact Info) Description 11/16/[address] [facility] Ear, Nose and Throat [address] [place] 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
--- OUTSIDE RECORDS SUMMARY | 2025-03-04 20:49 | XMS_ITS | Encounter Summary ---
Author Organization [facility] Address [address] [place] [address] Care Team Providers Care Senior Gamemaster Name Role Phone Roshan Jimenez DO Primary Care Provider Unav ailable Encounter Details Date Type Department Care Team (Latest Contact Info) Description 10/24/2006 Outpatient [facility] Ear, Nose and Throat [address] [place] 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
--- OUTSIDE RECORDS SUMMARY | 2025-03-04 20:49 | XMS_ITS | Encounter Summary ---
Author Organization [facility] Address [address] [place] [address] Care Team Providers Care Loss Prevention Investigator Name Role Phone Roshan Jimenez DO Primary Care Provider Unav ailable Encounter Details Date Type Department Care Team (Latest Contact Info) Description 01/08/1999 Outpatient Historical [facility] Podiatry-Ste[address] [place] [address] [place] [address] Noé Rosa, DPM [address] [place] [address] Ingrowing nail (Primary Dx) Social History Tobacco Use Types Packs/Day Years Used Date Smoking Tobacco: Never Assessed Sex and Gender Information Value Date Recorded Sex Assigned at Not on file Legal Sex Male 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
--- OUTSIDE RECORDS SUMMARY | 2025-03-04 20:49 | XMS_ITS | Encounter Summary ---
Author Organization [facility] Address [address] [place] [address] Care Team Providers Care Beverage Host Name Role Phone Roshan Jimenez DO Primary Care Provider Unav ailable Encounter Details Date Type Department Care Team (Latest Contact Info) Description 04/03/2007 Outpatient [facility] [address] [place] [address] Roshan Jimenez DO NO ADDRESS ON FILE Unspecified Essential Hypertension (Primary Dx); Other Apnea of Morrill; Obesity, Unspecified Social History Tobacco Use Types Packs/Day Years Used Date Smoking Tobacco: Never Assessed Sex and Gender Information Value Date Recorded Sex Assigned at Not on file Legal Sex Male 4:59 AM ROLL UP OPERATOR Gender Identity Not on file Sexual Orientation Not on file documented as of this encounter Plan of Treatment Not on file documented as of this encounter Visit Diagnoses Diagnosis Unspecified essential hypertension- Primary Other apnea of Obesity, unspecified documented in this encounter Care Teams Beverage Host Relationship Specialty Start Date End Date Roshan Jimenez DO NO ADDRESS ON FILE PCP - General 03/26/03 documented as of this encounter
--- OUTSIDE RECORDS SUMMARY | 2025-03-04 20:49 | XMS_ITS | Encounter Summary ---
Author Organization [facility] Address [address] [place] [address] Care Team Providers Care Rotary Engine Assembler Name Role Phone Fabian Camarillo Primary Care Provider Reason for Visit * Reason Onset Date Comments Needs Appointment 04/08/2024 reschedule appt 04/08/2024 No transportatio n, drive quit on Monday Encounter Details Date Type Department Care Team (Late st Contact Info) Description 04/08/2024 Telephone [facility] [address] [facility] [address] [place] [address] Dane Sierra MD [address] [facility] [address] [place] [address] Needs Appointment; reschedule appt (No transportation, [...] on file Legal Sex Male 12:11 AM SOLIDS CONTROL TECHNICIAN Gender Identity Not on file Sexual Orientation Not on file documented as of this encounter Miscellaneous Notes * Telephone Encounter - Maren Campbell - 04/15/2024 12:13 PM CDT V Call Center Communications Provider: Rigo , call Josefa with [facility] MESSAGE Consult today needs to be rescheduled as their flag car driver that does transport quit on Monday and they found out this morning. Cardiology Administrative Technician: Maren Campbell PSR * Telephone Encounter - Monica Garrett - 04/08/2024 9:44 AM CDT Called and got appt rescheduled. * Telephone Encounter - Lizz Andrea - 04/08/2024 9:33 AM CDT Rigo (Provider) Caller: Mariam ([facility] ) Phone: MESSAGE Caller is needing to cancel and reschedule appt from 04/08/[address] Oghlakian, please advise. Cardiology Administrative Technician: Lizz Andrea documented in this encounter Plan of Treatment Upcoming Encounters Date Type Department Care Team (Late st Contact Info) Description 04/01/2025 10:00 AM CDT Office Visit [facility] [address] [place] [address] Dane Sierra MD [address] [place] [address] Jazmyn Valiente FNP [address] [place] [address] 10/24/2025 10:45 AM SOLIDS CONTROL TECHNICIAN Office Visit [facility] [address] [place] [address] Dane Sierra MD [address] [place] [address] documented as of this encounter Visit Diagnoses Not on filedocumented in this encounter Care Teams Rotary Engine Assembler Relationship Specialty Start Date End Date Fabian Camarillo DO [address] [place] [address] PCP - General Family Practice 09/10/21 06/09/24 documented as of this encounter
--- OUTSIDE RECORDS SUMMARY | 2025-03-04 20:49 | XMS_ITS | Encounter Summary ---
Author Organization [facility] Address [address] [place] [address] Care Team Providers Care Head Correction Officer Name Role Phone Roshan Jimenez DO Primary Care Provider Unav ailable Encounter Details Date Type Department Care Team (Latest Contact Info) Description 12/23/1998 Outpatient Historical [facility] Axel Armstrong NO ADDRESS ON FILE Localized osteoarthrosis not specified whether primary or secondary, lower leg (Primary Dx) Social History Tobacco Use Types Packs/Day Years Used Date Smoking Tobacco: Never Assessed Sex and Gender Information Value Date Recorded Sex Assigned at Not on file Legal Sex Male 4:59 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
--- OUTSIDE RECORDS SUMMARY | 2025-03-04 20:49 | XMS_ITS | Encounter Summary ---
Author Organization [facility] Address [address] [place] [address] Care Team Providers Care Tank Cleaning Supervisor Name Role Phone Roshan Jimenez DO Primary Care Provider Unav ailable Encounter Details Date Type Department Care Team (Latest Contact Info) Description 02/17/2006 Outpatient [facility] [address] [place] [address] Roshan Jimenez DO NO ADDRESS ON FILE Viral Infection (Primary Dx); Unspecified Essential Hypertension; Unspecified Chronic Bronchitis (CMS/HCC); Impacted Cerumen Social History Tobacco Use Types Packs/Day Years Used Date Smoking Tobacco: Never Assessed Sex and Gender Information Value Date Recorded Sex Assigned at Not on file Legal Sex Male 4:59 AM GASOLINE TRACTOR OPERATOR Gender Identity Not on file Sexual Orientation Not on file documented as of this encounter Plan of Treatment Not on file documented as of this encounter Visit Diagnoses Diagnosis Unspecified viral infection, in conditions classified elsewhere and of unspecified site- Primary Unspecified essential hypertension Unspecified chronic bronchitis (CMS/HCC) Unspecified chronic bronchitis Impacted cerumen documented in this encounter Care Teams Tank Cleaning Supervisor Relationship Specialty Start Date End Date Roshan Jimenez DO NO ADDRESS ON FILE PCP - General 03/26/03 documented as of this encounter
--- OUTSIDE RECORDS SUMMARY | 2025-03-04 20:49 | XMS_ITS | Encounter Summary ---
Author Organization [facility] Address [address] [place] [address] Care Team Providers Care Circulation Supervisor Name Role Phone Roshan Jimenez DO Primary Care Provider Unav ailable Encounter Details Date Type Department Care Team (Latest Contact Info) Description 10/20/2006 Outpatient Historical [facility] [address] [place] [phone] Merlin Reilly MD NO ADDRESS ON FILE Obstructive Sleep Apnea (Primary Dx) Social History Tobacco Use Types Packs/Day Years Used Date Smoking Tobacco: Never Assessed Sex and Gender Information Value Date Recorded Sex Assigned at Not on file Legal Sex Male 4:59 AM ARCHIVIST ECONOMIC HISTORY Gender Identity Not on file Sexual Orientation Not on file documented as of this encounter Plan of Treatment Not on file documented as of this encounter Visit Diagnoses Diagnosis Obstructive sleep apnea- Primary Obstructive sleep apnea (adult) (pediatric) documented in this encounter Care Teams Circulation Supervisor Relationship Specialty Start Date End Date Roshan Jimenez DO NO ADDRESS ON FILE PCP - General 03/26/03 documented as of this encounter
--- OUTSIDE RECORDS SUMMARY | 2025-03-04 20:49 | XMS_ITS | Encounter Summary ---
Author Organization [facility] Address [address] [place] [address] Care Team Providers Care Tower Director Name Role Phone Roshan Jimenez DO Primary Care Provider Unav ailable Encounter Details Date Type Department Care Team (Latest Contact Info) Description 04/18/2005 Outpatient [facility] [address] [place] [address] Roshan Jimenez DO NO ADDRESS ON FILE MORBID OBESITY ([facility]) (Primary Dx); SLEEP APNEA NOS; EDEMA; ASTHMA UNSPECIFIED Social History Tobacco Use Types Packs/Day Years Used Date Smoking Tobacco: Never Assessed Sex and Gender Information Value Date Recorded Sex Assigned at Not on file Legal Sex Male 4:59 AM NIGHT TIME NANNY Gender Identity Not on file Sexual Orientation Not on file documented as of this encounter Plan of Treatment Not on file documented as of this encounter Visit Diagnoses Diagnosis Morbid obesity ([facility])- Primary Morbid obesity Unspecified sleep apnea Edema Unspecified asthma(493.90) Unspecified asthma documented in this encounter Care Teams Tower Director Relationship Specialty Start Date End Date Roshan Jimenez DO NO ADDRESS ON FILE PCP - General 03/26/03 documented as of this encounter
--- OUTSIDE RECORDS SUMMARY | 2025-03-04 20:49 | XMS_ITS | Encounter Summary ---
Author Organization [facility] Address [address] [place] [address] Care Team Providers Care Executive Compensation Analyst Name Role Phone Roshan Jimenez DO Primary Care Provider Unav ailable Encounter Details Date Type Department Care Team (Latest Contact Info) Description 11/01/2006 Outpatient Historical [facility] [address] [place] [address] John Black MD NO ADDRESS ON FILE Pre-Operative Cardiovascular Examination (Primary Dx) Social History Tobacco Use Types Packs/Day Years Used Date Smoking Tobacco: Never Assessed Sex and Gender Information Value Date Recorded Sex Assigned at Not on file Legal Sex Male 4:59 AM REGISTRATION SCHEDULING SPECIALIST Gender Identity Not on file Sexual Orientation Not on file documented as of this encounter Plan of Treatment Not on file documented as of this encounter Procedures Procedure Name Priority Date/Time Associated Diagnosis Comments COMPREHENSIVE METABOLIC PANEL Routine 11/01/2006 10:35 AM REGISTRATION SCHEDULING SPECIALIST XR CHEST PA OR AP 1 VW Routine 7 10:09 AM REGISTRATION SCHEDULING SPECIALIST documented in this encounter Results * (ABNORMAL) COMPREHENSIVE METABOLIC PANEL (11/01/2006 10:35 AM REGISTRATION SCHEDULING SPECIALIST) GLUCOSE 99 70 - 110 mg/dL INTERFACE [...] mOsm/Kg INTERFACE SYSTEM 11/01/2006 10:3 5 AM REGISTRATION SCHEDULING SPECIALIST John Black MD CHEMISTRY ORDERABLES Edited INTERFACE SYSTEM Refer to clinic/hospital department * XR CHEST PA OR AP (11/01/2006 10:09 AM REGISTRATION SCHEDULING SPECIALIST) Anatomical Region Laterality Modality Chest Other 11/01/2006 10:0 9 AM REGISTRATION SCHEDULING SPECIALIST Narrative 11/01/2006 10:09 AM REGISTRATION SCHEDULING SPECIALIST PA CHEST: 11/01/2006Chronic appearing accentuated bronchovascular markings of the parahilar regions. Cardiac silhouettewithin normal limits. IMPRESSION: No apparent acute disease. - Dictated By: Geovanna Sheriff M.D. Electronically Signed By: Geovanna Sheriff M.D. Date Signed: 11/01/06 Procedure Note [...] documented in this encounter Care Teams Executive Compensation Analyst Relationship Specialty Start Date End Date Roshan Jimenez DO NO ADDRESS ON FILE PCP - General 03/26/03 documented as of this encounter
--- OUTSIDE RECORDS SUMMARY | 2025-03-04 20:50 | XMS_ITS | Encounter Summary ---
Author Organization [employer] Address [address] [facility] Attn: [place] [address] Care Team Providers Care Hotel Superintendent Name Role Phone Roshan Jimenez DO Primary Care Provider Unav ailable Encounter Details Date Type Department Care Team (Late st Contact Info) Description 12/11/2000 Outpatient Historical Jose Galarza DO [address] [place] [address] Social History Tobacco Use Types Packs/Day Years Used Date Smoking Tobacco: Never Assessed Sex and Gender Information Value Date Recorded Sex Assigned at Not on file Legal Sex Male 4:59 AM SECURITY SPECIALIST Gender Identity Not on file Sexual Orientation Not on file documented as of this encounter Plan of Treatment Not on file documented as of this encounter Visit Diagnoses Not on filedocumented in this encounter Care Teams Hotel Superintendent Relationship Specialty Start Date End Date Roshan Jimenez DO NO ADDRESS ON FILE PCP - General 03/26/03 documented as of this encounter
--- OUTSIDE RECORDS SUMMARY | 2025-03-04 20:50 | XMS_ITS | Encounter Summary ---
Author Organization [facility] Address [address] [facility] Attn: [place] [address] Care Team Providers Care Supervisor Pigment Making Name Role Phone Roshan Jimenez DO Primary [...] on file Legal Sex Male 4:59 AM MAINTENANCE PLANNER Gender Identity Not on file Sexual Orientation Not on file documented as of this encounter Plan of Treatment Not on file documented as of this encounter Visit Diagnoses Not on filedocumented in this encounter Care Teams Supervisor Pigment Making Relationship Specialty Start Date End Date Roshan Jimenez DO NO ADDRESS ON FILE PCP - General 03/26/03 documented as of this encounter
--- OUTSIDE RECORDS SUMMARY | 2025-03-04 20:50 | XMS_ITS | Encounter Summary ---
Author Organization [facility] Address [address] [place] [address] Care Team Providers Care Chainstitch Felled Seam Operator Name Role Phone Roshan Jimenez DO Primary Care Provider Unav ailable Encounter Details Date Type Department Care Team (Latest Contact Info) Description 12/08/2000 Outpatient [facility] [address] [place] [phone] Roshan Jimenez DO NO ADDRESS ON FILE Anxiety state, unspecified (Primary Dx); Depressive disorder, not elsewhere classified; Acute bronchitis; Chronic airway obstruction, not elsewhere classified (CMS/HCC) Social History Tobacco Use Types Packs/Day Years Used Date Smoking Tobacco: Never Assessed Sex and Gender Information Value Date Recorded Sex Assigned at Not on file Legal Sex Male 4:59 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 Gender Identity Not on file Sexual Orientation Not on file documented as of this encounter Plan of Treatment Not on file documented as of this encounter Visit Diagnoses Diagnosis Anxiety state, unspecified- Primary Depressive disorder, not elsewhere classified Acute bronchitis Chronic airway obstruction, not elsewhere classified (CMS/HCC) Chronic airway obstruction, not elsewhere classified documented in this encounter Care Teams Chainstitch Felled Seam Operator Relationship Specialty Start Date End Date Roshan Jimenez DO NO ADDRESS ON FILE PCP - General 03/26/03 documented as of this encounter
--- OUTSIDE RECORDS SUMMARY | 2025-03-04 20:50 | XMS_ITS | Encounter Summary ---
Author Organization [facility] Address [address] [place] [address] Care Team Providers Care Disability Benefits Specialist Name Role Phone Roshan Jimenez DO [...] on file Legal Sex Male 4:59 AM TITLE DEPARTMENT MANAGER Gender Identity Not on file Sexual Orientation Not on file documented as of this encounter Plan of Treatment Not on file documented as of this encounter Visit Diagnoses Diagnosis Bronchitis, not specified as acute or chronic- Primary Other and unspecified hyperlipidemia Inhibited sex excitement Psychosexual dysfunction with inhibited sexual excitement Unspecified essential hypertension documented in this encounter Care Teams Disability Benefits Specialist Relationship Specialty Start Date End Date Roshan Jimenez DO NO ADDRESS ON FILE PCP - General 03/26/03 documented as of this encounter
--- OUTSIDE RECORDS SUMMARY | 2025-03-04 20:50 | XMS_ITS | Encounter Summary ---
Author Organization [facility] Address [address] [place] [address] Care Team Providers Care Entry Driver Operator Name Role Phone Roshan Jimenez DO Primary Care Provider Unav ailable Encounter Details Date Type Department Care Team (Latest Contact Info) Description 05/23/2000 Outpatient Historical [facility] Dermatology- [facility] [place] [address] [place] [phone] Irineo Snyder MD [address] [place] [phone] Hidradenitis (Primary Dx); Benign miguel skin trunk Social History Tobacco Use Types Packs/Day Years Used Date Smoking Tobacco: Never Assessed Sex and Gender Information Value Date Recorded Sex Assigned at Not on file Legal Sex Male 4:59 AM SQL SSRS DEVELOPER Gender Identity Not on file Sexual Orientation Not on file documented as of this encounter Plan of Treatment Not on file documented as of this encounter Visit Diagnoses Diagnosis Hidradenitis- Primary Benign miguel skin trunk Benign neoplasm of skin of trunk, except scrotum documented in this encounter Care Teams Entry Driver Operator Relationship Specialty Start Date End Date Roshan Jimenez DO NO ADDRESS ON FILE PCP - General 03/26/03 documented as of this encounter
--- OUTSIDE RECORDS SUMMARY | 2025-03-04 20:50 | XMS_ITS | Encounter Summary ---
Author Organization [facility] Address [address] [place] [address] Care Team Providers Care Cash Register Repairer Name Role Phone Roshan Jimenez DO Primary Care Provider Unav ailable Encounter Details Date Type Department Care Team (Latest Contact Info) Description 07/31/2001 Outpatient [facility] [address] [place] [address] Roshan Jimenez DO NO ADDRESS ON FILE HYPERTENSION NOS (Primary Dx); VACCINE FOR INFLUENZA Social History Tobacco Use Types Packs/Day Years Used Date Smoking Tobacco: Never Assessed Sex and Gender Information Value Date Recorded Sex Assigned at Not on file Legal Sex Male 4:59 AM FUR BLOWER Gender Identity Not on file Sexual Orientation Not on file documented as of this encounter Plan of Treatment Not on file documented as of this encounter Visit Diagnoses Diagnosis Unspecified essential hypertension- Primary Need vaccination-viral disease Need for prophylactic vaccination and inoculation against other viral diseases documented in this encounter Care Teams Cash Register Repairer Relationship Specialty Start Date End Date Roshan Jimenez DO NO ADDRESS ON FILE PCP - General 03/26/03 documented as of this encounter
--- OUTSIDE RECORDS SUMMARY | 2025-03-04 20:50 | XMS_ITS | Encounter Summary ---
Author Organization [facility] Address [address] [place] [address] Care Team Providers Care Grounds Restoration Specialist Name Role Phone Roshan Jimenez DO Primary Care Provider Unav ailable Encounter Details Date Type Department Care Team (Late st Contact Info) Description 12/30/2009 Ancillary Orders [facility] Orthopedics- [address] [place] [address] Yusef Malagon MD NO ADDRESS ON FILE Pain Social History Tobacco Use Types Packs/Day Years Used Date Smoking Tobacco: Every Day Cigarettes 1 42 Alcohol Use Standard Drinks/Week Comments Yes 0 (1 standard drink = 0.6 oz pur e alcohol) Rare Sex and Gender Information Value Date Recorded Sex Assigned at Not on file Legal Sex Male 4:59 AM WOOD HACKER Gender Identity Not on file Sexual Orientation Not on file documented as of this encounter Plan of Treatment Not on file documented as of this encounter Results * XR WRIST 3+ VW RIGHT (12/30/2009 1:41 PM CDT) Anatomical Region Laterality Modality Wrist / Hand Computed Radiogr aphy Narrative 01/11/2010 10:07 AM CDT RADIOGRAPHIC FINDINGS: X-rays of the wrists were obtained and reviewed today in the clinic. X-rays fail to reveal evidence of significant arthritic change. Overall alignment looks good. There is no significant cartilage wear. No other pathologic process is noted. Procedure Note Yusef Malagon MD - 01/11/2010 [...] Narrative 01/11/2010 10:07 AM CDT RADIOGRAPHIC FINDINGS: X-rays of the wrists were obtained and reviewed today in the clinic. X-rays fail to reveal evidence of significant arthritic change. Overall alignment looks good. There is no significant cartilage wear. No other pathologic process is noted. Procedure Note Yusef Malagon MD - 01/11/2010 [...] pain documented in this encounter Care Teams Grounds Restoration Specialist Relationship Specialty Start Date End Date Roshan Jimenez DO NO ADDRESS ON FILE PCP - General 03/26/03 documented as of this encounter
--- OUTSIDE RECORDS SUMMARY | 2025-03-04 20:50 | XMS_ITS | Encounter Summary ---
Author Organization [facility] Address [address] [place] [address] Care Team Providers Care Chain Saw Driver Name Role Phone Roshan Jimenez DO Primary Care Provider Unav ailable Encounter Details Date Type Department Care Team (Latest Contact Info) Description 02/12/2001 Outpatient [facility] [address] [place] [address] Roshan Jimenez DO NO ADDRESS ON FILE Unspecified asthma(493.90) (Primary Dx); Chronic airway obstruction, not elsewhere classified (CMS/[facility]) Social History Tobacco Use Types Packs/Day Years Used Date Smoking Tobacco: Never Assessed Sex and Gender Information Value Date Recorded Sex Assigned at Not on file 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
--- OUTSIDE RECORDS SUMMARY | 2025-03-04 20:50 | XMS_ITS | Encounter Summary ---
Author Organization [facility] Address [address] [place] [address] Care Team Providers Care Telegraphic Typewriter Operator Chief Name Role Phone Roshan Jimenez DO Primary Care Provider Unav ailable Encounter Details Date Type Department Care Team (Latest Contact Info) Description 07/06/2000 Outpatient Historical [facility] Dermatology- [facility] [place] [address] [place] [phone] Irineo Snyder MD 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
--- OUTSIDE RECORDS SUMMARY | 2025-03-04 20:50 | XMS_ITS | Encounter Summary ---
Author Organization [facility] Address [address] [facility] Attn: [place] [address] Care Team Providers Care Condenser Setter Name Role Phone Roshan Jimenez DO Primary Care Provider Unav ailable Encounter Details Date Type Department Care Team (Late st Contact Info) Description 02/24/2000 Outpatient Historical Merlin Reilly MD NO ADDRESS ON FILE Social History Tobacco Use Types Packs/Day Years Used Date Smoking Tobacco: Never Assessed Sex and Gender Information Value Date Recorded Sex Assigned at Not on file 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
--- OUTSIDE RECORDS SUMMARY | 2025-03-04 20:50 | XMS_ITS | Encounter Summary ---
Author Organization [facility] Address [address] [place] [address] Care Team Providers Care Hand Printed Circuit Board Assembler Name Role Phone Roshan Jimenez DO Primary Care Provider Unav ailable Encounter Details Date Type Department Care Team (Latest Contact Info) Description 07/15/2002 Outpatient [facility] [address] [place] [address] Roshan Jimenez DO NO ADDRESS ON FILE OBSTR CHR BRONCHITIS W AC EXACERB (CMS/HCC) (Primary Dx); HYPERTENSION NOS Social History Tobacco Use Types Packs/Day Years Used Date Smoking Tobacco: Never Assessed Sex and Gender Information Value Date Recorded Sex Assigned at Not on file 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
--- OUTSIDE RECORDS SUMMARY | 2025-03-04 20:50 | XMS_ITS | Encounter Summary ---
Author Organization [facility] Address [address] [place] [address] Care Team Providers Care Radio Communication Coordinator Name Role Phone Roshan Jimenez DO Primary Care Provider Unav ailable Encounter Details Date Type Department Care Team (Late st Contact Info) Description 02/24/2000 Outpatient Historical [facility] [address] [place] [phone] Social History Tobacco Use Types Packs/Day Years Used Date Smoking Tobacco: Never Assessed Sex and Gender Information Value Date Recorded Sex Assigned at Not on file 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
--- OUTSIDE RECORDS SUMMARY | 2025-03-04 20:50 | XMS_ITS | Encounter Summary ---
Author Organization [facility] Address [address] [place] [address] Care Team Providers Care Blue Line Operator Name Role Phone Roshan Jimenez DO Primary Care Provider Unav ailable Encounter Details Date Type Department Care Team (Latest Contact Info) Description 01/01/2001 Outpatient [facility] [phone] [place] [id number] Roshan Jimenez DO NO ADDRESS ON FILE Obstructive chronic bronchitis with exacerbation (CMS/HCC) (Primary Dx); Depressive disorder, not elsewhere classified; Edema; Unspecified essential hypertension Social History Tobacco Use Types Packs/Day Years Used Date Smoking Tobacco: Never Assessed Sex and Gender Information Value Date Recorded Sex Assigned at Not on file 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
--- OUTSIDE RECORDS SUMMARY | 2025-03-04 20:50 | XMS_ITS | Encounter Summary ---
Author Organization [facility] Address [address] [place] [address] Care Team Providers Care Reconnaissance Man Name Role Phone Roshan Jimenez DO Primary Care Provider Unav ailable Encounter Details Date Type Department Care Team (Latest Contact Info) Description 05/17/2000 Outpatient Historical [facility] [address] [place] [id number] Merlin Reilly MD NO ADDRESS ON FILE Hypersomnia with sleep apnea, unspecified (Primary Dx) Social History Tobacco Use Types Packs/Day Years Used Date Smoking Tobacco: Never Assessed Sex and Gender Information Value Date Recorded Sex Assigned at Not on file 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
--- OUTSIDE RECORDS SUMMARY | 2025-03-04 20:50 | XMS_ITS | Encounter Summary ---
Author Organization [facility] Address [address] [place] [address] Care Team Providers Care Core Cleaner Name Role Phone Roshan Jimenez DO Primary Care Provider Unav ailable Encounter Details Date Type Department Care Team (Latest Contact Info) Description 05/29/2001 Outpatient [facility] [phone] [place] [address] Roshan Jimenez DO NO ADDRESS ON FILE Unspecified essential hypertension (Primary Dx); Depressive disorder, not elsewhere classified; Chronic airway obstruction, not elsewhere classified (CMS/HCC) Social History Tobacco Use Types Packs/Day Years Used Date Smoking Tobacco: Never Assessed Sex and Gender Information Value Date Recorded Sex Assigned at Not on file 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
--- OUTSIDE RECORDS SUMMARY | 2025-03-04 20:50 | XMS_ITS | Clinical Summary ---
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 Gender Identity Not on file Sexual Orientation Not on file Occupation Industry Job Start Date Job End Date Not on file Not on file Not on file Not on file Last Filed Vital Signs Vital Sign Reading Time Taken Comments Blood Pressure 122/70 12/02/2020 10:01 AM CDT Pulse 88 12/02/2020 10:01 AM CDT Temperature 36.3 C (97.3 F) 11/11/2020 11:01 AM CDT Respiratory Rate 18 11/11/2020 11:01 AM CDT [...] Colorectal Cancer Screening 07/11/2023 INFLUENZA VACCINE (#1) 2025 0, 06/01/2019, 06/01/2019, Additional history exists RSV VACCINE (60+ or ) (1 - 1-dose 75+ series) 2027 ZOSTER VACCINE Completed 11/26/2018, 09/24/2018 PNEUMOCOCCAL VACCINE 50+ YEARS Completed 1 09/19/2019, 06/01/2019, 06/01/2019, Additional history exists Procedures Procedure Name Priority Date/Time Associated Diagnosis Comments ENDOSCOPY, COLON, SCREENING Routine 07/11/2013 12:39 PM MARKET RESEARCH ANALYST Special screening for malignant neoplasms, colon from Last 3 Months or Most Recently Relevant to Health Maintenance Results * ENDOSCOPY, COLON, SCREENING (07/11/2013 12:39 PM MARKET RESEARCH ANALYST) Narrative Transcriptions Demetri Chávez MD - 07/10/2013 5:25 PM C[employer] [place], [place] Patient: EDSON JAFFE CSN: [id number] : 1950 Provider: Demetri Chávez MD ENDOSCOPY [...] otherwise unremarkablecolonoscopy. Demetri Chávez MD MMODL D: [id number] V: [id number] cc: Roshan Jimenez DO Roshan Jimenez DO GI PROCEDURE ORDERABLES Fin al Result from Last 3 Months or Most Recently Relevant to Health Maintenance Insurance [place] [address] [place] [address] DUAL COMPLETE MCR HMO SNP Advance Directives For more information, please contact: [phone] * Full Code (Latest Code Status on [...] 12:22 PM 01/13/2010 11:02 PM Care Teams Golf Course Designer Relationship Specialty Start Date End Date Roshan Jimenez DO NO ADDRESS ON FILE PCP - General 03/26/03
--- OUTSIDE RECORDS SUMMARY | 2025-03-04 20:50 | XMS_ITS | Clinical Summary ---
Author Organization [facility] Stevo melo [place] Address [address] [place] [address] Phone Care Team Providers Care Music Historian Name Role Phone Unavailable Primary Care Provider Unavailabl e Allergies Active Allergy Reactions Criticality Noted Date Comments Broccoli Nausea and Vomiting Low 02/14/2025 Per [facility] paperwork Medications fluticasone-ume clidinium-vilan terol (Trelegy Ellipta) 200-62.5-25 mcg Disk with DeviceIndicatio ns:COPD with exacerbation (CMS/HCC) Take 1 Puff by inhalation daily. 60 Each 11 Active gabapentin (NEURONTIN) 300 mg capsuleIndicati ons:Neuroforami nal stenosis of lumbar spine,Acute bilateral low back pain with sciatica, sciatica laterality unspecified Take 1 Capsule (300 mg) by mouth 2 times daily. 120 Capsule 5 Active spironolactone (ALDACTONE) 50 mg tablet Take 1 Tablet (50 mg) by mouth daily. 30 Tablet 5 Active loperamide (IMODIUM) 2 mg capsule Take 1 Capsule (2 mg) by mouth 4 times daily as needed for Diarrhea/Loose Stools. 30 Capsule Active multivitamin with folic acid 400 mcg Tablet tablet Take 1 Tablet by mouth daily. 30 Tablet Active oxyCODONE-aceta minophen (PERCOCET) 5-325 mg tabletIndicatio ns:Cellulitis of right buttock,Neurofo raminal stenosis of lumbar spine,Polymyalg ia rheumatica syndrome,DDD (degenerative disc disease), lumbar Take 1 Tablet by mouth every 6 hours as needed for Pain, Moderate. Max Daily Amount: 4 Tablets 20 Tablet Active magnesium hydroxide (MILK OF MAGNESIA) 400 mg/5 mL suspension Take 30 mL by mouth 1 time daily as needed for Constipation. Active bisacodyL (DULCOLAX) 5 mg Delayed Release tablet Take 5 mg by mouth 1 time daily as needed for Constipation. Active calcium carbonate-mag hydroxide (MYLANTA SUPREME) 400-135 mg/5 mL Suspension Take 1 mL by mouth. Active acetaminophen (TYLENOL) 325 mg tablet Take 325 mg by mouth every 4 hours as needed. Active albuterol sulfate HFA 90 mcg/actuation aerosol inhalerIndicati ons:Asthma with chronic obstructive pulmonary disease (COPD) ([facility]) TAKE 2 PUFFS BY INHALATION EVERY 4 HOURS NEEDED FOR RESPIRATION. 17 Gram Active polyethylene glycol (MIRALAX) 17 gram Powder in Packet Take by mouth 1 time daily as needed for Constipation. Active ergocalciferol (VITAMIN D2) 50,000 unit capsule Take 50,000 Units by mouth every 30 days. Active MELATONIN ORAL Take 6 mg by mouth 1 time daily as needed. Active Eliquis 5 mg tablet Take 5 mg by mouth 2 times daily. Active triamcinolone acetonide (KENALOG) 0.5 % CreamIndication s:Stasis dermatitis Apply to affected area 2 times daily. 15 Gram 2 Active albuterol (PROVENTIL,VENT MARCELO) 2.5 mg /3 mL (0.083 %) Solution for Nebulization Take 3 mL (2.5 mg) by inhalation every 8 hours as needed for Shortness of Breath. Active aspirin (ECOTRIN EC) 81 mg Tablet, Delayed Release (E.C.) Take 1 Tablet (81 mg) by mouth daily. Stop aspirin after one month. Continue with plavix and eliquis 2024 Active atorvastatin (LIPITOR) 40 mg tablet Take 1 Tablet (40 mg) by mouth daily at bedtime. Active FLUoxetine (PROzac) 40 mg capsule Take 1 Capsule (40 mg) by mouth daily. Take 20 mg with a 10 mg daily Active furosemide (LASIX) 40 mg tablet Take 1 Tablet (40 mg) by mouth 2 times daily. Active levothyroxine 25 mcg tablet Take 1 Tablet (25 mcg) by mouth daily in the morning. Active metoprolol succinate (TOPROL XL) 25 mg Extended Release 24 hour tablet Take 1 Tablet (25 mg) by mouth daily. Active nitroglycerin (NITROSTAT) 0.4 mg Tablet, Sublingual Place 1 Tablet (0.4 mg) under tongue every 5 minutes as needed for Chest Pain (Not to exceed 3 doses, notify physician if chest pain not relieved, hold if systolic BP less than or equal to 90 mmHg). Active pantoprazole (PROTONIX) 40 mg Tablet, Delayed Release (E.C.) Take 1 Tablet (40 mg) by mouth daily before breakfast. Active potassium CHLORIDE (KLOR-CON) 10 mEq Extended Release tablet Take 1 Tablet (10 mEq) by mouth 2 times daily with meals. Active sennosides-docu sate sodium (SENNA-S) 8.6-50 mg tablet Take 1 Tablet by mouth 2 times daily as needed for Constipation. Active clopidogreL (PLAVIX) 75 mg Tablet Take 1 Tablet (75 mg) by mouth daily. Active omeprazole (PriLOSEC) 20 mg Capsule, Delayed Release(E.C.)In dications:Gastr oesophageal reflux disease without esophagitis Take 1 Capsule (20 mg) by mouth daily. 90 Capsule 3 024 2024 Discontinued ferrous sulfate (FeroSuL) 325 mg (65 mg iron) tabletIndicatio ns:Other iron deficiency anemia TAKE 1 TABLET BY MOUTH TWICE A DAY 180 Tablet 1 024 2024 Discontinued furosemide (LASIX) 80 mg tabletIndicatio ns:Essential hypertension,De pendent edema Take 1 Tablet (80 mg) by mouth 1 time daily as needed (edema). 90 Tablet 1 024 2024 Discontinued nicotine (NICODERM CQ) 21 mg/24 hr patch Apply 1 Patch to skin as directed daily. 14 Patch 024 2024 Discontinued prochlorperazin e maleate (COMPAZINE) 10 mg tablet Take 1 Tablet (10 mg) by mouth every 6 hours as needed for Nausea/Emesis. 10 Tablet 024 2024 Discontinued sodium hypochlorite (DAKIN'S) 0.25% half-strength Solution Apply to affected area daily. 473 mL 024 2024 Discontinued zinc oxide-cod liver oil (Desitin) 40 % Paste Apply to affected area see administration instructions. 30 Gram 024 2024 Discontinued bisacodyL (DULCOLAX) 10 mg Suppository Insert 10 mg by rectum daily. 2024 Discontinued magnesium citrate solution Take 10 mg by mouth one time only. 2024 Discontinued FLUoxetine (PROzac) 20 mg capsule Take 20 mg by mouth daily. Take 20 mg with a 10 mg daily 2024 Discontinued FLUoxetine (PROzac) 10 mg tablet Take 10 mg by mouth daily. Take with with a 20 mg to =30 mg daily 2024 Discontinued fluticasone-ume clidinium-vilan terol (Trelegy Ellipta) 200-62.5-25 mcg Disk with Device Take 1 Puff by inhalation daily. 2024 Discontinued albuterol sulfate HFA 90 mcg/actuation aerosol inhaler Take 2 Puffs by inhalation every 6 hours as needed for Shortness of Breath. 2024 Discontinued metOLazone (ZAROXOLYN) 5 mg tablet Take 5 mg by mouth daily. 2024 Discontinued OTHER Protein liquid oral 30ml 2024 Discontinued senna (EX-LAX) 15 mg Tablet Take by mouth. 2024 Discontinued mag hydrox/aluminum hyd/simeth (ALUM-MAG HYDROXIDE-SIMET H ORAL) Take by mouth. 2024 Discontinued docusate sodium (COLACE) 50 mg capsule Take 50 mg by mouth 2 times daily. 2024 Discontinued ciprofloxacin HCl (CIPRO) 750 mg tablet Take 1 Tablet (750 mg) by mouth 2 times daily for 5 days. 10 Tablet 025 2024 Active Problems Problem Noted Date Diagnosed Date Ischemic dilated cardiomyopathy 02/20/2025 Acute on chronic combined sy stolic and diastolic congestive heart failure 02/20/2025 S/P drug eluting coronary stent placement 2024 Acute on chronic systolic congestive heart failu re 02/16/2025 Pneumonia of both lungs due to Pseudomonas speci es 02/16/2025 ASHD (arteriosclerotic heart disease) 02/15/2025 STEMI (ST elevation myocardial infarction) 02/14 Acute on chronic hypoxic respiratory failure Acute blood loss anemia 02/14/2025 Urinary tract infection asso ciated with chronic indwelling urethral catheter 02/14/2025 Severe sepsis without septic shock 02/13/2025 Paroxysmal atrial fibrillati on with rapid ventricular response 02/13/2025 Non-STEMI (non-ST elevated myocardial infarction ) 02/13/2025 Hematuria 02/13/2025 Non-ST elevated myocardial infarction (non-STEMI ) 02/13/2025 Chronic venous hypertension (idiopathic) with inflammation of bilateral lower extremity 11/20/2024 Stasis dermatitis 11/20/2024 Lab test positive for detection of COVID-19 viru s 09/28/2023 Abscess of buttock 09/19/2023 Cellulitis of right buttock 06/06/2023 COPD with exacerbation 01/06/2023 Wound of left leg 01/06/2023 Left leg cellulitis 01/06/2023 Protein-calorie malnutrition, moderate Polymyalgia rheumatica syndrome 03/28/2022 Plaque psoriasis 03/28/2022 [...] Encounters Date Type Department Care Team Description 02/20/2025 Abstract [facility] [address] [place] [address] Provider, Abstract 02/20/2025 Orders Only [facility] [address] [place] [address] Provider, Abstract 02/18/2025 External Device Data [facility] ABSTRACTION Provider, Abstract 02/18/2025 External Device Data [facility] [place] Provider, Abstract 02/18/2025 External Device Data [facility] [place] Provider, Abstract 02/17/2025 Travel 02/14/2025 1:05 AM CDT - 02/14/2025 2:05 AM CDT Surgery [facility] Cardiac Segregator [address] [place] [address] Ryan Mathews MD Left heart cath 02/14/2025 Results Follow-Up [facility] [address] [place] [address] Ryan Mathews MD WEBLOGIC DEVELOPER PROCEDURE 02/13/2025 10:12 PM CDT - 02/19/2025 7:37 PM CDT Hospital Encounter [facility] 4B Cardiac [address] [place] [address] Jean-Pierre Pappas MD Elgayesh, MD Joy Wylie, MD Fer Aponte, MD Linda Ruiz, Lokesh Nash MD STEMI (ST elevation myocardial infarction) ([facility]) Discharge Disposition: Senior Care Fac(SNF) with Medicare Certification in Anticipation of Skilled Care 02/11/2025 External Device Data [facility] ABSTRACTION Provider, Abstract 12/03/2024 External Device Data [facility] [place]STRA[place] Provider, Abstract 12/03/2024 External Device Data [facility] [place]STRACTION Provider, Abstract [...] Passive Smoke Exposure: Current Smokeless Tobacco: Never Tobacco Cessation:Counseling Given: Not Answered Alcohol Use Standard Drinks/Week Comments No 0 [...] on file 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 Gender Identity Not on file Sexual Orientation Not on file Last Filed Vital Signs Vital Sign Reading Time Taken Comments Blood Pressure 119/71 02/19/2025 4:00 PM CDT Pulse 74 02/19/2025 4:00 PM CDT Temperature 35.6 C (96.1 F) 02/19/2025 4:00 PM CDT Respiratory Rate 17 02/19/2025 4:00 PM CDT Oxygen Saturation 97% 02/19/2025 4:00 PM CDT Inhaled Oxygen Concentration - - Weight 138.6 kg (305 lb 8.9 oz) 02/17/2025 5:00 AM CDT Height 182.9 cm (6') 02/17/2025 10:00 AM CDT Body Mass Index 41.44 02/17/2025 5:00 AM CDT Plan of Treatment Upcoming Encounters Date Type Department Care Team (Late st Contact Info) Description 04/01/2025 10:00 AM CDT Office Visit [facility] [address] [place] [phone] Dane Sierra MD [address] [place] [phone] Jazmyn Valiente FNP [address] [place] [phone] 10/24/2025 10:45 AM WINDROWER OPERATOR Office Visit [facility] [address] [place] [phone] Dane Sierra MD [address] [place] [phone] Health Maintenance Due Date Last Done Comments DTAP/TDAP/TD VACCINES (1 - Tdap) 1971 FIT-DNA Q 3 years 1997 FIT/FOBT Q 1 year 1997 Flex Sig/CT Colonography Q 5 years 1997 RSV VACCINE (60+ or ) (1 - Risk 60-74 years 1-dose series) 2012 Abdominal Aortic Aneurysm (A AA) Screening 2017 COLORECTAL SCREENING 07/11/2023 07/11/2013, 07/11/2013, 07/10/2013 Colorectal Cancer Screening 07/11/2023 COVID-19 Vaccine (2023-2 5 season) 2024 06/06/2023, 05/18/2022, 11/03/2021, Additional history exists INFLUENZA VACCINE (#1) 2025 3, 05/11/2022, 05/11/2022, Additional history exists ZOSTER VACCINE Completed 11/26/2018, 09/24/2018 PNEUMOCOCCAL VACCINE 50+ YEARS Completed 1 09/19/2019, 07/20/2020, 06/01/2019, Additional history exists Medical Devices Implanted Type Area Clinical Psychologist Device Identifier Shelf Expiration Date Model / Serial / Lot Stent Jayy Hoven Santiago 4.0x38mm Rx [id number] - [id number] Implanted:Qty: 1 on 02/14/2025 by Geronimo, Service Desk Specialist () MD Wing at [facility] Stent N/A: Coronary [employer] [id number] 02/19/2027 [id number] / / [id number] Procedures Procedure Name Priority Date/Time Associated Diagnosis Comments TELEMETRY REPORT 02/20/2025 2:40 PM CDT CBC WITHOUT DIFFERENTIAL Routine 02/19/2025 3:46 AM CDT BASIC METABOLIC PANEL Routine 02/19/2025 3:45 AM CDT ECHOCARDIOGRAM W/ CONTRAST AGENT Routine 02/18/2025 2:43 PM CDT RT ASSESS AND TREAT Routine 02/18/2025 1 0:34 AM CDT BASIC METABOLIC PANEL Routine 02/18/2025 5:04 AM CDT BASIC METABOLIC PANEL Routine 02/17/2025 6:46 AM CDT BRAIN NATRIURETIC PEPTIDE, BNP OR PROBNP Routine 02/17/2025 6:19 AM CDT LIPID PANEL Routine 02/17/2025 6:19 AM CDT COMPREHENSIVE METABOLIC PANEL Routine 02/17/2025 6:19 AM CDT CBC WITHOUT DIFFERENTIAL Routine 02/17/2025 6:19 AM CDT POC GLUCOSE Routine 02/16/2025 6:01 AM CDT POC GLUCOSE Routine 02/15/2025 8:27 PM CDT POC GLUCOSE Routine 02/15/2025 5:08 PM CDT CREDIT ASSESSMENT ANALYST EVALUATE AND TREAT Routine 11:23 AM CDT POC GLUCOSE Routine 02/15/2025 11:07 AM CDT POC GLUCOSE Routine 02/15/2025 7:45 AM CDT PHOSPHORUS Routine 02/15/2025 3:40 AM CDT MAGNESIUM LEVEL Routine 02/15/2025 3:40 AM CDT COMPREHENSIVE METABOLIC PANEL Routine 02/15/2025 3:40 AM CDT CBC WITHOUT DIFFERENTIAL Routine 02/15/2025 3:40 AM CDT POC GLUCOSE Routine 02/15/2025 3:23 AM CDT POC GLUCOSE Routine 02/14/2025 11:20 PM CDT HEMOGLOBIN AND HEMATOCRIT Routine 02/14/2025 11:20 PM CDT POC GLUCOSE Routine 02/14/2025 8:28 PM CDT POC GLUCOSE Routine 02/14/2025 5:39 PM CDT HEMOGLOBIN AND HEMATOCRIT Routine 02/14/2025 5:31 PM CDT HEMOGLOBIN AND HEMATOCRIT Routine 02/14/2025 11:39 AM CDT SPUTUM CULTURE WITH GRAM STAIN Routine 02/14/2025 9:40 AM CDT PNEUMONIA PATHOGEN PCR PANEL Routine 02/14/2025 9:40 AM CDT EKG 12-LEAD Routine 02/14/2025 5:09 AM CDT POC LACTIC ACID Routine 02/14/2025 4:45 AM CDT BLOOD GAS ARTERIAL Routine 02/14/2025 4: 45 AM CDT POC GLUCOSE Routine 02/14/2025 4:15 AM CDT PHOSPHORUS Routine 02/14/2025 4:10 AM CDT MAGNESIUM LEVEL Routine 02/14/2025 4:10 AM CDT TROPONIN 6 HR, 5TH GEN Timed Study 4:10 AM CDT XR CHEST PA OR AP 1 VW Stat 3:22 AM CDT POC ACTIVATED CLOTTING TIME Routine 02/14/2025 2:01 AM CDT IVUS-CORONARY INTRAVASCULAR Routine 02/14/2025 2:00 AM CDT CORONARY ATHERECTOMY Routine 02/14/2025 2:00 AM CDT PERCUTANEOUS CORONARY INTERVENTION Routine 02/14/2025 2:00 AM CDT LEFT HEART CATH Routine 02/14/2025 2:00 AM CDT POC ACTIVATED CLOTTING TIME Routine 02/14/2025 1:47 AM CDT COMPREHENSIVE METABOLIC PANEL Routine 02/14/2025 12:31 AM CDT TROPONIN 2 HR, 5TH GEN Timed Study 12:31 AM CDT HEMOGLOBIN AND HEMATOCRIT Routine 02/14/2025 12:28 AM CDT PTT Stat 02/14/2025 12:28 AM CDT UNFRACTIONATED HEPARIN ACTIVITY Timed Study 02/14/2025 12:28 AM CDT EKG 12-LEAD Stat 02/14/2025 12:14 AM CDT TYPE AND SCREEN Routine 02/13/2025 11:45 PM CDT COMPREHENSIVE METABOLIC PANEL Stat 02/13/2025 11:45 PM CDT CBC WITH DIFFERENTIAL Stat 02/13/2025 11:45 PM CDT TROPONIN BASELINE, 5TH GEN Stat 02/13/2025 11:45 PM CDT COMPREHENSIVE METABOLIC PANEL Routine 02/12/2025 3:19 PM CDT LIPID PANEL Routine 02/11/2025 HEMOGLOBIN A1C Routine 02/11/2025 ENDOSCOPY, COLON, SCREENING Routine 07/11/2013 12:39 PM 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 WBC 12.8(H) 4.8 - 10.8 K/uL 02/19/2025 4:19 AM CDT [facility] RBC 3.83(L) 4.60 - 6.20 M/uL 02/19/2025 4:19 AM CDT [facility] HEMOGLOBIN 8.8(L) 14.0 - 18.0 g/dL 02/19/2025 4:19 AM CDT [facility] HEMATOCRIT 32.2(L) 41.0 - 53.0 % 02/19/2025 4:19 AM CDT [facility] MCV 84.1 84.0 - 103.0 fL 02/19/2025 4:19 AM CDT [facility] MCH 23.0(L) 27.0 - 34.0 pg 02/19/2025 4:19 AM CDT [facility] MCHC 27.3(L) 30.0 - 35.0 g/dL 02/19/2025 4:19 AM CDT [facility] PLATELETS 389 140 - 440 K/uL 02/19/2025 4:19 AM T [facility] MPV 9.6 8.9 - 12.8 fL 02/19/2025 4:19 AM T [facility] RDW 17.6(H) 11.0 - 14.5 % 02/19/2025 4:19 AM T [facility] RDW-STDEV 53.8 37.0 - 54.0 fL 02/19/2025 4:19 AM T [facility] Blood Venipuncture / Unknown 02/19/2025 3:46 AM CDT 02/19/2025 4:14 AM CDT Lokesh Mckeon MD HEMATOLOGY ORDERABL ES Final Result [facility] CLIA # [id number] [address] [place] [address] [place] [address] * (ABNORMAL) BASIC METABOLIC PANEL (02/19/2025 3:45 AM CDT) Only the most recent of3 resultswithin the time period is included. SODIUM 142 136 - 145 mmol/L 02/19/2025 4:43 AM CDT [facility] POTASSIUM 3.4(L) 3.5 - 5.1 mmol/L 02/19/2025 4:43 AM CDT [facility] CHLORIDE 96(L) 98 - 107 mmol/L 02/19/2025 4:43 AM T [facility] CO2 35(H) 22 - 29 mmol/L 02/19/2025 4:43 AM T [facility] CALCIUM 8.5(L) 8.8 - 10.2 mg/dL 02/19/2025 4:43 AM T [facility] BUN 21 8 - 23 mg/dL 02/19/2025 4:43 AM T [facility] CREATININE 0.89 0.67 - 1.17 mg/dL 02/19/2025 4:43 AM T [facility] Comment:The GFR result is no t clinically significant on patients <18 or >70 years of age. GLUCOSE 104(H) 74 - 99 mg/dL 02/19/2025 4:43 AM T [facility] GFR >60 mL/min/1.7 3 sq meter 02/19/2025 4:43 AM T [facility] Comment:eGFR calculated with 2020 CKD-EPI equation. Vegetarian diet, extremely high or low muscle mass, and may affect results. Cystatin C with Glomerular Filtration Rate is a suitable alternative for these patients. ANION GAP 11 9 - 20 mmol/L 02/19/2025 4:43 AM CDT [facility] Blood Venipuncture / Unknown 02/19/2025 3:45 AM CDT 02/19/2025 4:03 AM CDT Lokesh Mckeon MD CHEMISTRY ORDERABLE S Final Result [facility] CLIA # [id number] [address] [place] [address] [place], [place] [id number] * ECHOCARDIOGRAM W/ CONTRAST AGENT (02/18/2025 2:43 PM CDT) EJECTION FRACTION 35 INTERFACE SYSTEM 02/18/2025 1:25 PM CDT Narrative INTERFACE SYSTEM - 02/18/2025 5:10 PM CDT [facility] Cardiovascular Services Echocardiography Laboratory [facility] [place] [address] Transthoracic Echocardiography Patient: Isreal Arguello Study ID: ECHO COMPLETE - R Gender: M : 1950 Age: 74 Room: [facility] Study 02/18/2025 Pt Inpatient Date: Status: Study 01:25:55 PM CSN #: [id number] Time: Ordering:Brigido Mi Clay Miner: Robyn Sharp [facility] Indications and History: Acute coronary syndrome. Summary and Conclusion: - Left ventricle: Not well visualized. The cavity size is upper normal to mildly increased. Wall thickness is increased in a pattern of mild LVH. Global systolic function is moderately reduced. The estimated ejection fraction is 30-35%. For Epic reporting: the left ventricular ejection fraction is 35% by biplane method of disks. Appears to be hypokinesis of the anterolateral and inferolateral keith. Regional wall motion difficult to determine. Grade I diastolic dysfunction. - Right ventricle: The cavity size is normal. Systolic function is normal. - Aortic valve: Not well visualized. The leaflets are thickened. There is mild to moderate stenosis. The mean systolic gradient is 13mm Hg. The LVOT to aortic valve VTI ratio is 0.38. - Mitral valve: The annulus is mildly calcified. - Tricuspid valve: Not well visualized. - Pulmonic valve: Not well visualized. Procedure information: Comparison is made to the study of 03/15/2024. Study status: Routine. Procedure: A transthoracic echocardiogram was performed. Image quality was adequate. Scanning was performed from the parasternal, apical, subcostal, and suprasternal notch acoustic windows. Intravenous contrast (Definity) was administered. There were no complications. There were no contrast reactions. Study components: M-mode, 2D, complete spectral Doppler, and color Doppler. Height: 182.9cm. Height: 72in. Weight: 138.6kg. Weight: 305.6lb. BMI: 41.4kg/m^2. BSA: 2.71m^2. Blood pressure: 121/62 Study date: 02/18/2025. Study time: 01:25 PM. Location: Bedside. Cardiac Anatomy: LEFT VENTRICLE: Not well visualized. The cavity size is upper normal to mildly increased. Wall thickness is increased in a pattern of mild LVH. Global systolic function is moderately reduced. The estimated ejection fraction is 30-35%. For Epic reporting: the left ventricular ejection fraction is 35% by biplane method of disks. Regional wall motion difficult to determine. Regional wall motion abnormalities: Appears to be hypokinesis of the anterolateral and inferolateral keith. Grade I diastolic dysfunction. RIGHT VENTRICLE: The cavity size is normal. Systolic function is normal. LEFT ATRIUM: The atrium is normal in size. RIGHT ATRIUM: The atrium is normal in size. ATRIAL SEPTUM: Not well visualized. AORTIC VALVE: Not well visualized. The leaflets are thickened. There is mild to moderate stenosis. There is no significant regurgitation. MITRAL VALVE: The annulus is mildly calcified. Mobility is not restricted. There is no evidence for stenosis. There is trace regurgitation. TRICUSPID VALVE: Not well visualized. Mobility is unrestricted. There is no evidence for stenosis. There is trace regurgitation. PULMONIC VALVE: Not well visualized. There is no evidence for stenosis. There is no significant regurgitation. PERICARDIUM: There is no pericardial effusion. AORTA: Aortic root: The root is not dilated. Measurements Left ventricle Value LVOT continued Value ESD, LAX 4.9 cm VTI, S 17.7 cm ESD/bsa, LAX 1.8 cm/m^2 Peak grad, S 4 mm Hg FS, LAX 16 % SV 61 ml FS, LAX chord 16 % SV/bsa 22 ml/m^2 ESD major ax, A4C 9.0 cm ESD/bsa major ax, A4C 3.3 cm/m^2 Right ventricle Value WILL minor ax, A4C 9.0 cm WILL, LAX 2.2 cm WILL/bsa minor ax, A4C 3.3 cm/m^2 WILL minor ax, A4C base 3.7 cm BRIGIDO, A4C 53.8 cm^2 WILL minor ax, A4C mid 2.9 cm JUVENCIO, A4C 40.6 cm^2 WILL 2.2 cm FAC, A4C 25 % TAPSE, 2D 2.2 cm WILL major ax, A2C 10.0 cm TAPSE, MM 2.2 cm WILL/bsa major ax, A2C 3.7 cm/m^2 S' lateral 16.6 cm/sec BRIGIDO, A2C 44.8 cm^2 JUVENCIO, A2C 36.7 cm^2 Left atrium Value FAC, A2C 18 % AP dim, ES 3.9 cm IVS, ED 1.4 cm AP dim index, ES 1.4 cm/m^2 PW, ED 1.3 cm Area ES, A4C 14 cm^2 IVS/PW, ED 1.03 SI dim, A2C 5.7 cm EDV 171 ml Vol, ES, 1-p A4C 31 ml ESV 114 ml Vol/bsa, ES, 1-p A4C 11 ml/m^2 EF 33 % Vol, ES, 1-p A2C 33 ml SV 61 ml Vol/bsa, ES, 1-p A2C 12 ml/m^2 EDV/bsa 63 ml/m^2 Vol, ES, 2-p 32 ml ESV/bsa 42 ml/m^2 Vol/bsa, ES, 2-p 12 ml/m^2 SV/bsa 22 ml/m^2 EDV, 1-p A2C 174 ml Right atrium Value ESV, 1-p A2C 53 ml Area, ES, A4C 9 cm^2 EF, 1-p A2C 31 % SV, 1-p A2C 57 ml Aortic valve Value EDV/bsa, 1-p A2C 64 ml/m^2 Mean v, S 162 cm/sec ESV/bsa, 1-p A2C 20 ml/m^2 VTI, S 46.5 cm SV/bsa, 1-p A2C 21 ml/m^2 Mean grad, S 13 mm Hg EDV, 1-p A4C 236 ml LVOT/AV, VTI ratio 0.38 ESV, 1-p A4C 148 ml ANUEL, VTI 1.32 cm^2 EF, 1-p A4C 37 % ANUEL/bsa, VTI 0.49 cm^2/m^2 SV, 1-p A4C 82 ml EDV/bsa, 1-p A4C 87 ml/m^2 Mitral valve Value ESV/bsa, 1-p A4C 55 ml/m^2 Mean v, D 85.3 cm/sec SV/bsa, 1-p A4C 30 ml/m^2 Peak E 64.5 cm/sec EDV, 2-p 208 ml Peak A 112 cm/sec ESV, 2-p 135 ml VTI leaflet coapt 48.8 cm EF, 2-p 35 % MiV/LVOT VTI 2.8 SV, 2-p 73 ml Decel time 225 ms EDV/bsa, 2-p 77 ml/m^2 Mean grad, D 3 mm Hg ESV/bsa, 2-p 50 ml/m^2 Peak E/A ratio 0.6 SV/bsa, 2-p 34.5 ml/m^2 E-VTI 48.8 cm EDV, MM Teich. 171 ml A-VTI 48.8 cm EF, MM Teich. 33 % VTI E/A 1.0 EDV/bsa, MM Teich. 63 ml/m^2 MVA 1.25 cm^2 EF, MM on 2D Teich. 33 % MVA/bsa 0.46 cm^2/m^2 E', lat shannon, TDI 6.0 cm/sec MVA, LVOT cont 1.3 cm^2 E/e', lat shannon, TDI 9 MVA/bsa, LVOT cont 0.46 cm^2/m^2 E', med shannon, TDI 7.1 cm/sec Shannon VTI 48.8 cm E/e', med shannon, TDI 9 Vena contracta width 2.2 cm E', avg, TDI 6.5 cm/sec E/e', avg, TDI 10 Tricuspid valve Value TR vena contracta width 2.1 cm LVOT Value Peak RV-RA grad, S 15 mm Hg Diam, S 2.1 cm Area 3.5 cm^2 Descending aorta Value Peak henrry, S 94.3 cm/sec Conrado diam 2.9 cm Legend: (L) and (H) odalis values outside specified reference range. [facility] are accredited with the [employer] Accreditation Commission - Echocardiography. Prepared and Electronically Authenticated Jose Smith MD Confirmed 02/18/2025 17:09 Procedure Note Jose Smith MD - 02/18/2025 [facility] Cardiovascular Services Echocardiography Laboratory [address] [place] [id number] Transthoracic Echocardiography Patient: Isreal Arguello Study ID: ECHO COMPLETE- R Gender: M : 1950 Age: 74 Room: [facility] Study 02/18/2025 Pt Inpatient Date: Status: Study 01:25:55 PM CSN #: [id number] Time: Ordering:Brigido Mi Clay Miner: Robyn Sharp [facility] Indications and History: Acute coronary syndrome. Summary and Conclusion: - Left ventricle: Not well visualized. The cavity size is upper normalto mildly increased. Wall thickness is increased in a pattern of mildLVH. Global systolic function is moderately reduced. The estimated ejection fraction is 30-35%. For Epic reporting: the left ventricular ejection fraction is 35% by biplane method of disks. Appears to be hypokinesis ofthe anterolateral and inferolateral keith. Regional wall motion difficultto determine. Grade I diastolic dysfunction. - Right ventricle: The cavity size is normal. Systolic function isnormal. - Aortic valve: Not well visualized. The leaflets are thickened. There ismild to moderate stenosis. The mean systolic gradient is 13mm Hg. The LVOTto aortic valve VTI ratio is 0.38. - Mitral valve: The annulus is mildly calcified. - Tricuspid valve: Not well visualized. - Pulmonic valve: Not well visualized. Procedure information: Comparison is made to the study of 03/15/2024.Study status: Routine. Procedure: A transthoracic echocardiogram wasperformed. Image quality was adequate. Scanning was performed from the parasternal, apical, subcostal, and suprasternal notch acoustic windows. Intravenous contrast (Definity) was administered. There were no complications. Therewere no contrast reactions. Study components: M-mode, 2D, complete spectral Doppler, and color Doppler. Height: 182.9cm. Height: 72in. Weight: 138.6kg. Weight: 305.6lb. BMI: 41.4kg/m^2. BSA: 2.71m^2. Blood pressure: 121/62 Study date: 02/18/2025. Study time: 01:25PM. Location: Bedside. Cardiac Anatomy: LEFT VENTRICLE: Not well visualized. The cavity size is upper normal to mildly increased. Wall thickness is increased in a pattern of mild LVH.Global systolic function is moderately reduced. The estimated ejection fractionis 30-35%. For Epic reporting: the left ventricular ejection fraction is 35%by biplane method of disks. Regional wall motion difficult to determine. Regional wall motion abnormalities: Appears to be hypokinesis of the anterolateral and inferolateral keith. Grade I diastolic dysfunction. RIGHT VENTRICLE: The cavity size is normal. Systolic function isnormal. LEFT ATRIUM: The atrium is normal in size. RIGHT ATRIUM: The atrium is normal in size. ATRIAL SEPTUM: Not well visualized. AORTIC VALVE: Not well visualized. The leaflets are thickened. There ismild to moderate stenosis. There is no significant regurgitation. MITRAL VALVE: The annulus is mildly calcified. Mobility is notrestricted. There is no evidence for stenosis. There is trace regurgitation. TRICUSPID VALVE: Not well visualized. Mobility is unrestricted. There isno evidence for stenosis. There is trace regurgitation. PULMONIC VALVE: Not well visualized. There is no evidence forstenosis. There is no significant regurgitation. PERICARDIUM: There is no pericardial effusion. AORTA: Aortic root: The root is not dilated. Measurements Left ventricle Value LVOT continued Value ESD, LAX 4.9 cm VTI, S 17.7 cm ESD/bsa, LAX 1.8 cm/m^2 Peak grad, S 4 mmHg FS, LAX 16 % SV 61 ml FS, LAX chord 16 % SV/bsa 22ml/m^2 ESD major ax, A4C 9.0 cm ESD/bsa major ax, A4C 3.3 cm/m^2 Right ventricle Value WILL minor ax, A4C 9.0 cm WILL, LAX 2.2 cm WILL/bsa minor ax, A4C 3.3 cm/m^2 WILL minor ax, A4C base 3.7 cm BRIGIDO, A4C 53.8 cm^2 WILL minor ax, A4C mid 2.9 cm JUVENCIO, A4C 40.6 cm^2 WILL 2.2 cm FAC, A4C 25 % TAPSE, 2D 2.2 cm WILL major ax, A2C 10.0 cm TAPSE, MM 2.2 cm WILL/bsa major ax, A2C 3.7 cm/m^2 S' lateral 16.6cm/sec BRIGIDO, A2C 44.8 cm^2 JUVENCIO, A2C 36.7 cm^2 Left atrium Value FAC, A2C 18 % AP dim, ES 3.9 cm IVS, ED 1.4 cm AP dim index, ES 1.4cm/m^2 PW, ED 1.3 cm Area ES, A4C 14cm^2 IVS/PW, ED 1.03 SI dim, A2C 5.7 cm EDV 171 ml Vol, ES, 1-p A4C 31 ml ESV 114 ml Vol/bsa, ES, 1-p A4C 11ml/m^2 EF 33 % Vol, ES, 1-p A2C 33 ml SV 61 ml Vol/bsa, ES, 1-p A2C 12ml/m^2 EDV/bsa 63 ml/m^2 Vol, ES, 2-p 32 ml ESV/bsa 42 ml/m^2 Vol/bsa, ES, 2-p 12ml/m^2 SV/bsa 22 ml/m^2 EDV, 1-p A2C 174 ml Right atrium Value ESV, 1-p A2C 53 ml Area, ES, A4C 9cm^2 EF, 1-p A2C 31 % SV, 1-p A2C 57 ml Aortic valve Value EDV/bsa, 1-p A2C 64 ml/m^2 Mean v, S 162cm/sec ESV/bsa, 1-p A2C 20 ml/m^2 VTI, S 46.5 cm SV/bsa, 1-p A2C 21 ml/m^2 Mean grad, S 13 mmHg EDV, 1-p A4C 236 ml LVOT/AV, VTI ratio 0.38 ESV, 1-p A4C 148 ml ANUEL, VTI 1.32cm^2 EF, 1-p A4C 37 % ANUEL/bsa, VTI 0.49cm^2/m^2 SV, 1-p A4C 82 ml EDV/bsa, 1-p A4C 87 ml/m^2 Mitral valve Value ESV/bsa, 1-p A4C 55 ml/m^2 Mean v, D 85.3cm/sec SV/bsa, 1-p A4C 30 ml/m^2 Peak E 64.5cm/sec EDV, 2-p 208 ml Peak A 112cm/sec ESV, 2-p 135 ml VTI leaflet coapt 48.8 cm EF, 2-p 35 % MiV/LVOT VTI 2.8 SV, 2-p 73 ml Decel time 225 ms EDV/bsa, 2-p 77 ml/m^2 Mean grad, D 3 mmHg ESV/bsa, 2-p 50 ml/m^2 Peak E/A ratio 0.6 SV/bsa, 2-p 34.5 ml/m^2 E-VTI 48.8 cm EDV, MM Teich. 171 ml A-VTI 48.8 cm EF, MM Teich. 33 % VTI E/A 1.0 EDV/bsa, MM Teich. 63 ml/m^2 MVA 1.25cm^2 EF, MM on 2D Teich. 33 % MVA/bsa 0.46cm^2/m^2 E', lat shannon, TDI 6.0 cm/sec MVA, LVOT cont 1.3cm^2 E/e', lat shannon, TDI 9 MVA/bsa, LVOT cont 0.46cm^2/m^2 E', med shannon, TDI 7.1 cm/sec Shannon VTI 48.8 cm E/e', med shannon, TDI 9 Vena contracta width 2.2 cm E', avg, TDI 6.5 cm/sec E/e', avg, TDI 10 Tricuspid valve Value TR vena contracta width 2.1 cm LVOT Value Peak RV-RA grad, S 15 mmHg Diam, S 2.1 cm Area 3.5 cm^2 Descending aorta Value Peak henrry, S 94.3 cm/sec Conrado diam 2.9 cm Legend: (L) and (H) odalis values outside specified reference range. [facility] are [facility] Acc[facility] - Echocardiography. Prepared and Electronically Authenticated Jose Smith MD Confirmed 02/18/2025 17:09 us Brigido Mi MD US ORDERABLES Final Result Performing Organization Address City/[facility] Co de Phone Number INTERFACE SYSTEM Refer to clinic/hospital department * (ABNORMAL) BRAIN NATRIURETIC PEPTIDE, BNP OR PROBNP (02/17/2025 6:19 AM CDT) PROBNP, N TERMINAL 3,712(H) 0 - 125 pg/mL 02/17/2025 7:17 AM CDT [facility] Comment: INTERPRETIVE COMMENT based on diagnosis: Diagnostic NT pro-BNP cutoffs for Heart Failure in the absence of renal failure is suggested for the following ranges <75 years: <125 pg/mL >=75 years: <450 pg/mL Exclusionary rule out cut-point for Acute Decompensated Heart Failure(ADHF) All ages: <300 pg/mL Diagnostic NT pro-BNP cutoffs for Acute Decompensated Heart Failure(ADHF) in the absence of renal failure is suggested for the following ages <50 years: > 450 pg/mL 50-75 years: > 900 pg/mL >75 years: >1800 pg/mL Blood Venipuncture / Unknown 02/17/2025 6:19 AM CDT 02/17/2025 6:28 AM CDT us Lokesh Mckeon MD CHEMISTRY ORDERABLE S Final Result Performing Organization Address [facility] Co de Phone Number [facility] CLIA # [id number] [address] [address] * (ABNORMAL) LIPID PANEL (02/17/2025 6:19 AM CDT) Only the most recent of2 resultswithin the time period is included. [facility] Signature CHOLESTEROL 90 <200 mg/dL 02/17/2025 7:17 AM T [facility] TRIGLYCERIDE 118 <150 mg/dL 02/17/2025 7:17 AM T [facility] HDL 27(L) 40 - 59 mg/dL 02/17/2025 7:17 AM T [facility] LDL CALCULATED 39 <100 mg/dL 02/17/2025 7:17 AM [facility] NON-HDL CHOLESTEROL 63 <130 mg/dL 02/17/2025 7:17 AM [facility] Blood Venipuncture / Unknown 02/17/2025 6:19 AM CDT 02/17/2025 6:28 AM CDT Narrative [facility] - 02/17/2025 7:17 AM CDT TOTAL CHOLESTEROL mg/dL Desirable <200 Borderline high 200-239 High >=240 TRIGLYCERIDES mg/dL Normal <150 Borderline high 150-199 High 200-499 Very high >=500 HDL CHOLESTEROL mg/dL Low <40 Normal 40-59 Desirable >=60 NON HDL CHOLESTEROL mg/dL Optimal <130 Near Optimal 130-159 Borderline High 160-189 Very High >=190 CALCULATED LDL mg/dL LDL <70, OPTIMAL if have Atherosclerotic cardiovascular disease (ASCVD) or intermediate or higher (>7.5%) 10 year risk of ASCVD including most adults with diabetes. LDL <100, Optimal in adult patients with low (<7.5%) 10 year ASCVD risk LDL 100-160, Suboptimal LDL >160, High LDL >190, Very high LDL calculated using the Friedewald equation. ATPIII Guidelines Reference Ranges for Lipid Panels (NCEP/AMA) . us Minerva Bunch NP CHEMISTRY ORDERABLES Final Result [facility] CLIA # [id number] [address] [address] * (ABNORMAL) COMPREHENSIVE METABOLIC PANEL (02/17/2025 6:19 AM CDT) Only the most recent of5 resultswithin the time period is included. [facility] SODIUM 138 136 - 145 mmol/L 02/17/2025 7:17 AM T [facility] POTASSIUM 3.6 3.5 - 5.1 mmol/L 02/17/2025 7:17 AM T [facility] CHLORIDE 96(L) 98 - 107 mmol/L 02/17/2025 7:17 AM T [facility] CO2 32(H) 22 - 29 mmol/L 02/17/2025 7:17 AM T [facility] CALCIUM 8.3(L) 8.8 - 10.2 mg/dL 02/17/2025 7:17 AM [facility] BUN 19 8 - 23 mg/dL 02/17/2025 7:17 AM T [facility] CREATININE 0.80 0.67 - 1.17 mg/dL 02/17/2025 7:17 AM [facility] Comment:The GFR result is no t clinically significant on patients <18 or >70 years of age. GLUCOSE 101(H) 74 - 99 mg/dL 02/17/2025 7:17 AM [facility] TOTAL PROTEIN 7.2 6.4 - 8.3 g/dL 02/17/2025 7:17 AM [facility] ALBUMIN 2.7(L) 3.5 - 5.2 g/dL 02/17/2025 7:17 AM [facility] BILIRUBIN TOTAL 0.3 0.0 - 1.0 mg/dL 02/17/2025 7:17 AM [facility] ALKALINE PHOSPHATASE 133(H) 40 - 129 U/L 02/17/2025 7:17 AM T [facility] AST 15 10 - 50 U/L 02/17/2025 7:17 AM [facility] ALT 30 <=50 U/L 02/17/2025 7:17 AM CDT [facility] GFR >60 mL/min/1.7 3 sq meter 02/17/2025 7:17 AM CDT [facility] Comment:eGFR calculated with 2020 CKD-EPI equation. Vegetarian diet, extremely high or low muscle mass, and may affect results. Cystatin C with Glomerular Filtration Rate is a suitable alternative for these patients. ANION GAP 10 9 - 20 mmol/L 02/17/2025 7:17 AM CDT [facility] Blood Venipuncture / Unknown 02/17/2025 6:19 AM CDT 02/17/2025 6:28 AM CDT Lokesh Mckeon MD CHEMISTRY ORDERABLE S Final Result Performing Organization Address [facility] Co de Phone Number [facility] CLIA # [id number] [address] [place] [address] * (ABNORMAL) POC GLUCOSE (02/16/2025 6:01 AM CDT) Only the most recent of10 resultswithin the time period is included. GLUCOSE POC 120(H) 74 - 99 mg/dL 02/16/2025 6:01 AM CDT [facility] SPECIMEN SOURCE, GLUCOSE POC Capillary 02/16/2025 6:01 AM CDT [facility] Blood, whole 02/16/2025 6:01 AM CDT 02/16/2025 7:24 AM CDT Lokesh Mckeon MD POINT OF CARE TESTI NG Final Result Performing Organization Address [facility]/ZIP Co de Phone Number [facility] CLIA # [id number] [address] [place] [address] * PHOSPHORUS (02/15/2025 3:40 AM CDT) Only the most recent of2 resultswithin the time period is included. PHOSPHORUS 3.0 2.5 - 4.5 mg/dL 02/15/2025 4:20 AM CDT [facility] Blood Venipuncture / Unknown 02/15/2025 3:40 AM CDT 02/15/2025 3:46 AM CDT Garrett Monroe MD CHEMISTRY ORDERABLES Final Resu lt Performing Organization Address [facility] de Phone Number [facility] CLIA # [id number] [address] [address] [place], [place] [address] * (ABNORMAL) MAGNESIUM LEVEL (02/15/2025 3:40 AM CDT) Only the most recent of2 resultswithin the time period is included. MAGNESIUM 2.6(H) 1.6 - 2.4 mg/dL 02/15/2025 4:20 AM CDT [facility] Blood Venipuncture / Unknown 02/15/2025 3:40 AM CDT 02/15/2025 3:46 AM CDT Garrett Monroe MD CHEMISTRY ORDERABLES Final Resu lt Performing Organization Address [facility] Co de Phone Number [facility] CLIA # [id number] [address] [address] * (ABNORMAL) HEMOGLOBIN AND HEMATOCRIT (02/14/2025 11:20 PM CDT) Only the most recent of4 resultswithin the time period is included. HEMOGLOBIN 8.0(L) 14.0 - 18.0 g/dL 02/14/2025 11:35 PM CDT [facility] HEMATOCRIT 29.4(L) 41.0 - 53.0 % 02/14/2025 11:35 PM CDT [facility] Blood Venipuncture / Unknown 02/14/2025 11:20 PM CDT 02/14/2025 11:31 PM CDT us Amod Bisi MEADE HEMATOLOGY ORDERABLES Final R esult [facility] CLIA # [id number] [address] [address] [place] [address] * (ABNORMAL) PNEUMONIA PATHOGEN PCR PANEL (02/14/2025 9:40 AM CDT) Pseudomonas aeruginosa by PCR DETECTED( A) Not Detected 02/14/2025 2:17 PM CDT [facility] Sputum SPUTUM SPECIMEN OBTAINED BY ASPIRATION / Unknown Collection / Unknown 02/14/2025 9:40 AM CDT 02/14/2025 9:46 AM CDT Narrative [facility] - 02/14/2025 2:17 PM CDT NOTE: Per the detective supervisor, this current lot of reagent may be insensitive for the full detection of adenoviruses. If adenovirus is within the differential diagnosis, the specimen may be submitted to a reference laboratory for further testing. If desired, order [id number] Lab Test, stating Adenovirus by PCR testing in the ordering comment and notify the Microbiology lab. A negative result does not exclude the possibility of infection. A semi-quantitative (copies/mL) result is provided for bacteria. This panel does not distinguish between nucleic acid from live or bacteria or virus. Culture is needed for recovery of bacterial isolates and antimicrobial susceptibility testing. The Film Array Pneumonia Pathogen PCR Panel is a multiplexed nucleic acid detection test for 33 targets of bacteria, viruses, and resistance markers in respiratory specimens that cause pneumonia. Bacteria: Acinetobacter calcoaceticus-baumannii complex Enterobacter cloacae complex Escherichia coli Haemophilus influenzae Klebsiella aerogenes Klebsiella oxytoca Klebsiella pneumoniae group Moraxella catarrhalis Proteus spp. Pseudomonas aeruginosa Serratia marcescens Staphylococcus aureus Streptococcus agalactiae Streptococcus pneumoniae Streptococcus pyogenes Atypical Bacteria: Chlamydia pneumoniae Legionella pneumophila Mycoplasma pneumoniae Viruses: Adenovirus Coronavirus (229E, OC43, HKU1, NL63) Human Metapneumovirus Human Rhinovirus/Enterovirus Influenza A Influenza B Parainfluenza Virus Respiratory Syncytial Virus Antimicrobial Resistance Genes: CTX-M IMP KPC NDM OXA-48-like VIM mecA/C and MREJ Kristen Simpson NP MICROBIOLOGY - GENERAL ORDERABL ES Final Result [facility] CLIA # [id number] [address] [address] * (ABNORMAL) SPUTUM CULTURE WITH GRAM STAIN (02/14/2025 9:40 AM CDT) CULTURE PSEUDOMONAS AERUGINOSA(A) MIKAL MCG/ML 02/17/2025 8:36 AM CDT [facility] GRAM STAIN Smear contains </=10 squamous epithelial cells per low power field 02/17/2025 8:36 AM CDT [facility] GRAM STAIN <25 PMN WBC/LPF 8:36 AM CDT [facility] GRAM STAIN No organisms observed 02/17/2025 8:36 AM CDT [facility] Sputum SPUTUM SPECIMEN OBTAINED BY ASPIRATION / Unknown Collection / Unknown 02/14/2025 9:40 AM CDT 02/14/2025 9:46 AM CDT Narrative Organism Antibiotic Method Susceptibility Pseudomonas aeruginosa CEFEPIME MIKAL MCG/ML <=1 mcg/mL: Susceptible Pseudomonas aeruginosa GENTAMICIN MIKAL MCG/ML Resistant Pseudomonas aeruginosa TOBRAMYCIN MIKAL MCG/ML <=1 mcg/mL: Susceptible Pseudomonas aeruginosa CIPROFLOXACIN MIKAL MCG/ML <=0.25 mcg/mL: Susceptible Pseudomonas aeruginosa LEVOFLOXACIN MIKAL MCG/ML 1 mcg/mL: Susceptible Pseudomonas aeruginosa PIPERACILLIN/ TAZOBACTAM BIRD- ROBIN Intermediate Comment:Aminoglycosides shou ld not be used as monotherapy for infections outside the urinary tract. Consultation with an infectious diseases specialist is recommended. us Kristen Simpson NP MICROBIOLOGY - GENERAL ORDERABL ES Final Result [facility] CLIA # [id number] [address] [address] * EKG 12-LEAD (02/14/2025 5:09 AM CDT) Only the most recent of2 resultswithin the time period is included. 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 : 1950 Requested By: Order Number: [id number] Reading MD: Tara Garcia Measurements Intervals [place] Rate: 66 P: -27 OH: 142 QRS: 2 QRSD: 102 T: 68 QT: 432 QTc: 452 Interpretive Statements Critical Test Result: STEMI Normal sinus rhythm Low voltage QRS Septal infarct, age undetermined Inferior injury pattern ACUTE MA / STEMI Consider right ventricular involvement in acute inferior infarct Abnormal jinrikisha driver comment Critical 'ACUTE MA / STEMI' reported to Sara Cordova RN on 02/14/25 at 0510 by Brigido Guzman Electronically Signed On 02-14-2025 6:26:36 CDT by Tara Garcia Procedure Note Tara Garcia MD - 02/14/[address] [address] Test Date: 2025-02-14 Pat Name: ISREAL DEMARCOON Department: 12 Room: [address] [place] [address] 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: [id number] : 1950 Requested By: Order Number: [id number] Reading MD: Tara Garcia Measurements Intervals [place] Rate: 66 P: -27 OH: 142 QRS: 2 QRSD: 102 T: 68 QT: 432 QTc: 452 Interpretive Statements Critical Test Result: STEMI Normal sinus rhythm Low voltage QRS Septal infarct, age undetermined Inferior injury pattern ACUTE MA / STEMI Consider right ventricular involvement in acute inferior infarct Abnormal jinrikisha driver comment Critical 'ACUTE MA / STEMI' reported to Sara Cordova RN on 02/14/25 at 0510 by Brigido Guzman Electronically Signed On 02-14-2025 6:26:36 CDT by Tara Garcia Ryan Mathews MD ECG ORDERABLES Final Result INTERFACE SYSTEM Refer to clinic/hospital department * POC LACTIC ACID (02/14/2025 4:45 AM CDT) LACTIC ACID POC 0.6 <=2.0 mmol/L 02/14/2025 4:45 AM CDT [facility] SPECIMEN SOURCE, GASES POC Arterial 02/14/2025 4:45 AM CDT [facility] PUNC SITE POC ART PUNCT 02/14/2025 4:45 AM CDT [facility] Blood 02/14/2025 4:45 AM CDT 02/14/2025 4:46 AM CDT Narrative [facility] - 02/14/2025 4:45 AM CDT References ranges displayed are for Arterial samples. us Sukhwinder Hamilton MD POINT OF CARE TESTING Final Result Performing Organization Address City/[facility]/ZIP Co de Phone Number [facility] CLIA # [id number] [facility] [address] [place] [address] * (ABNORMAL) BLOOD GAS ARTERIAL (02/14/2025 4:45 AM CDT) PH BLOOD POC 7.33(L) 7.35 - 7.45 02/14/2025 4:45 AM [facility] PCO2 POC 67(H) 35 - 45 mm Hg 02/14/2025 4:45 AM [facility] PO2 POC 89 80 - 105 mm Hg 02/14/2025 4:45 AM [facility] HCO3 (CALC) POC 35(H) 22 - 26 mmol/L 02/14/2025 4:45 AM [facility] HEMOGLOBIN POC 8.9(L) 12.0 - 18.0 g/dL 02/14/2025 4:45 AM [facility] BASE EXCESS POC 9(H) -2 - 3 mmol/L 02/14/2025 4:45 AM [facility] O2 SATURATION POC 98 95 - 98 % 025 4:45 AM [facility] SODIUM POC 136(L) 138 - 146 mmol/L 02/14/2025 4:45 AM [facility] POTASSIUM POC 4.3 3.5 - 4.9 mmol/L 02/14/2025 4:45 AM [facility] HEMATOCRIT POC 27(L) 38 - 51 % 02/14/2025 4:45 AM [facility] PH TEMP CORRECT 7.33(L) 7.35 - 7.45 02/14/2025 4:45 AM [facility] PCO2 TEMP CORRECT 67(H) 35 - 45 mm Hg 02/14/2025 4:45 AM [facility] PO2 TEMP CORRECT 89 80 - 105 mm Hg 02/14/2025 4:45 AM [facility] SPECIMEN SOURCE, GASES POC Arterial 02/14/2025 4:45 AM [facility] CALCIUM IONIZED POC 4.5(L) 4.8 - 5.2 mg/dL 02/14/2025 4:45 AM [facility] TCO2 (CALC) POC 37(H) 23 - 27 mmol/L 02/14/2025 4:45 AM [facility] EPAP POC 8 02/14/2025 4:45 AM [facility] FIO2 40.0 21.0 - 100.0 % 02/14/2025 4:45 AM CDT [facility] Comment:FIO2 values reported <21.0 indicate O2 flow in Liters/minute. Values >/= 21.0 indicate percent O2. P/F RATIO POC 223 02/14/2025 4:45 AM CDT [facility] Comment: P/F Ratio Interpretation ARDS SEVERITY PaO2/FiO2 Mild 200-300 Moderate 100-200 Severe <100 IPAP POC 16 02/14/2025 4:45 AM CDT [facility] PUNC SITE POC ART PUNCT 02/14/2025 4:45 AM CDT [facility] Blood, arterial 02/14/2025 4 :45 AM CDT 02/14/2025 4:46 AM CDT Sukhwinder Hamilton MD ABG ORDERABLES Final Result Performing Organization Address City/[facility]/ZIP Co de Phone Number [facility] CLIA # [id number] [address] [place] [address] * (ABNORMAL) TROPONIN 6 HR, 5TH GEN (02/14/2025 4:10 AM CDT) TROPONIN T, 6 HR 5TH GEN 2,135(HH) <=15 ng/L 02/14/2025 5:01 AM CDT [facility] DELTA 6HR TROPONIN T % -6 See Interp. % 02/14/2025 5:01 AM CDT [facility] Blood Venipuncture / Unknown 02/14/2025 4:10 AM CDT 02/14/2025 4:21 AM CDT Narrative [facility] - 02/14/2025 5:01 AM CDT Troponin elevated. Delta not changing. us Ryan Mathews MD CHEMISTRY ORDERABLES Final Re sult [facility] ANTOINE CLARCELIA # [id number] [address] [address] [place] [address] * XR CHEST PA OR AP 1 VW (02/14/2025 3:22 AM CDT) Anatomical Region Laterality Modality Chest Computed Radiogr aphy 02/14/2025 3:09 AM CDT Impressions 02/14/2025 11:03 AM CDT IMPRESSION: Please see below. Exam: XR CHEST PA OR AP 1 VW Date/Time of Exam: 02/14/2025 3:22 AM Reason For Exam: Cough. Diagnosis: See Reason for Exam. Findings: The AP semierect study is compared to the exam of 12/19/2023. The lungs are well-inflated. There is no pneumothorax. There is mild bilateral interstitial prominence. There is mild groundglass opacity in both lung bases. The cardiac silhouette is large. The pulmonary markings are indistinct. The bony thorax is grossly intact. IMPRESSION: 1. Cardiomegaly and mild interstitial edema. 2. Mild bibasilar groundglass opacities secondary to the interstitial edema and/or superimposed pneumonia. Narrative Procedure Note Milagro Hale MD - 02/14/2025 IMPRESSION: Please see below. Exam: XR CHEST PA OR AP 1 VW Date/Time of Exam: 02/14/2025 3:22 AM Reason For Exam: Cough. Diagnosis: See Reason for Exam. Findings: The AP semierect study is compared to the exam of 12/19/2023. The lungs are well-inflated. There is no pneumothorax. There is mild bilateral interstitial prominence. There is mild groundglass opacity in both lung bases. The cardiac silhouette is large. The pulmonary markings are indistinct. The bony thorax is grossly intact. IMPRESSION: 1. Cardiomegaly and mild interstitial edema. 2. Mild bibasilar groundglass opacities secondary to the interstitial edema and/or superimposed pneumonia. us Kristen Simpson NP DIAGNOSTIC IMAGING ORDERABLES F inal Result * (ABNORMAL) POC ACTIVATED CLOTTING TIME (02/14/2025 2:01 AM CDT) Only the most recent of2 resultswithin the time period is included. ACTIVATED CLOTTING TIME POC 297(H) 116 - 140 sec 02/14/2025 2:01 AM CDT [facility] Blood 02/14/2025 2:01 AM CDT 02/14/2025 2:55 PM CDT us Garrett Monroe MD POINT OF CARE TESTING Final Res ult [facility] CLIA # [id number] [address] [address] * LEFT HEART CATH, PERCUTANEOUS CORONARY INTERVENTION, CORONARY ATHERECTOMY, IVUS-CORONARY INTRAVASCULAR (02/14/2025 2:00 AM CDT) 02/14/2025 1:21 AM CDT Narrative [facility] - 02/14/2025 2:16 AM CDT Ost Cx to Prox Cx lesion is 95% stenosed. 1st Mrg lesion is 100% stenosed. Lat 1st Mrg lesion is 100% stenosed. Prox LAD lesion is 35% stenosed. Prox RCA to Mid RCA lesion is 35% stenosed. Acute Mrg lesion is 100% stenosed. Ost Cx to Prox Cx reduced to 0% stenosed. 1. Significant [place] coronary artery disease with a stent. Late presentation MA. Patient is now status post successful IVUS guided percutaneous coronary intervention of circumflex lesion using 1 drug-eluting stent. Significant thrombus burden in the distal branch vasculature of OM territory with significant residual burden despite aspiration thrombectomy. Patient started on Aggrastat bolus and drip. Patient has been loaded with dual antiplatelet therapy aspirin and Plavix that patient supposed to take for at least 12 months preferably longer depending on the DAPT score followed by 1 antiplatelet for life. High intensity statin for life. Other guideline medical therapy to be uptitrated as hemodynamics allow. 2. Aggressive risk factor modification and lifestyle changes. 3. Recommend maximally tolerated guideline directed medical therapy. 4. Access site care per protocol. 5. Cardiac rehab per the referring provider. 6. Case discussed with the ICU attending. Portions of this document were created through the use of [employer] staff engineer software. Effort has been made to ensure accuracy of the pension examiner. Any obvious errors or omissions should be clarified with the author of the document. Coronary Findings Diagnostic Dominance: Right Left Main: The vessel is large. The vessel exhibits minimal luminal irregularities. Left Anterior Descending: The vessel is large. There is mild diffuse disease in the vessel. The vessel is calcified. Prox LAD lesion is 35% stenosed. Not the culprit lesion. JADE flow is 3. The lesion is calcified. Left Circumflex: The vessel is large. There is mild diffuse disease in the vessel. The vessel is calcified. Ost Cx to Prox Cx lesion is 95% stenosed. Culprit lesion. JADE flow is 2. First Obtuse Marginal Branch: 1st Mrg lesion is 100% stenosed. Lateral First Obtuse Marginal Branch: Lat 1st Mrg lesion is 100% stenosed. Right Coronary Artery: The vessel is large. The vessel exhibits minimal luminal irregularities. Prox RCA to Mid RCA lesion is 35% stenosed. Not the culprit lesion. JADE flow is 3. Acute Marginal Branch: Acute Mrg lesion is 100% stenosed. Intervention Ost Cx to Prox Cx lesion: Stent: Drug-eluting stent was successfully placed. The stent used was a STENT JAYY FRONTIER SANTIAGO [id number] RX [id number]. Post- Intervention Lesion Assessment: The intervention was successful. The guidewire crossed the lesion. Device was deployed. Post-intervention JADE flow is 3. There were no complications. There is a 0% residual stenosis post intervention. Estimated Blood Loss There was minimal blood loss during procedure. Procedure Details DESCRIPTION OF PROCEDURE: The risks and benefits of the procedure were described in simple details. Risks including: bleeding, need for blood transfusion, arrhythmia, need for emergent surgery, renal failure, allergic reactions, myocardial infarction, stroke and . All questions were answered. Informed consent was signed. The access site was prepped and draped in a sterile technique in the usual fashion. Lidocaine 2% was used for local anesthesia. A 6 Mozambican sheath was placed in the access site using single entry technique. Using the JL4 catheter, the left main coronary artery was engaged and multiple shots were obtained. Using the JR4 guide catheter, the right coronary artery was engaged and multiple shots were obtained. Using the JR4 catheter the aortic valve was crossed and LV pressure measurements were obtained. I noticed that there was acute thrombotic occlusion of distal vasculature in the OM territory and a significant lesion in the proximal circumflex that was likely the culprit for the presentation hence I decided to pursue intervention on the same. Note that patient is a late presentation MA due to significant thrombus burden. The left coronary system was engaged using an XB 3.5 guide followed by crossing the lesion using a run-through wire followed by predilatation using a 2.0 balloon. Following this IVUS was performed to determine appropriate stent size, landing zones. Due to significant thrombus burden aspiration thrombectomy with penumbra was performed which removed some thrombus. Following this more predilatation was performed using a 3.5 balloon. Following this stenting was performed using a 4.0 x 38 drug-eluting stent. Following this I noted that there was still significant thrombus burden in the distal branches of the OM vasculature and suggested more balloon angioplasty using a 3.0 balloon and aspiration thrombectomy however the thrombus burden still remains significant. Hence the patient was started on aggressive bolus and drip. Following this wires were removed intact and angiographic which showed excellent results, JADE-3 flow, no edge complications. Patient tolerated the procedure well and is doing well, chest pain-free and hemodynamically stable at the end of the procedure. Heparin was used for anticoagulation and appropriate ACT maintained. Patient has been loaded with dual antiplatelet therapy aspirin and Plavix that patient supposed to take for at least 12 months preferably longer depending on the DAPT score followed by 1 antiplatelet for life. High intensity statin for life. Other guideline medical therapy to be uptitrated as hemodynamics allow. Complications: none JADE flow preprocedure: 2 JADE flow postprocedure: 3 PCI risk: High us Ryan Mathews MD CUP CATH ORDERABLES Final Res ult [facility] CARDIOLOG[facility] [id number] [address] [place] [address], [place] [phone] * (ABNORMAL) TROPONIN 2 HR, 5TH GEN (02/14/2025 12:31 AM CDT) [facility] TROPONIN T, 2 HR 5TH GEN 2,305(HH) <=15 ng/L 02/14/2025 1:18 AM CDT [facility] DELTA 2HR TROPONIN T % 1 See Interp. % 02/14/2025 1:18 AM CDT [facility] Blood Venipuncture / Unknown 02/14/2025 12:31 AM CDT 02/14/2025 12:39 AM CDT [facility] - 02/14/2025 1:18 AM CDT Troponin elevated. Delta not changing. us Kim Wilkinson MD CHEMISTRY ORDERABLES Final Result Performing Organization Address [facility] Co de Phone Number [facility] CLIA # [id number] [address] [address] [place] [address] * UNFRACTIONATED HEPARIN MONITORING (02/14/2025 12:28 AM CDT) [facility] ANTI-XA UNFRAC HEP <0.10 See Interpretation IU/mL 02/14/2025 12:58 AM CDT [facility] Blood Venipuncture / Unknown 02/14/2025 12:28 AM CDT 02/14/2025 12:38 AM CDT [facility] - 02/14/2025 12:58 AM CDT Therapeutic Range: PT/DVT Heparin Protocol 0.3 - 0.7 IU/ml Cardiac Heparin Protocol 0.3 - 0.6 IU/ml The reference range for this test is specific to the anticoagulant and is not appropriate for monitoring patients on a DOAC protocol. us Kim Wilkinson MD HEMATOLOGY ORDERABLE S Final Result Performing Organization Address [facility]/[place] Co de Phone Number [facility] CLIA # [id number] [id number] [place] [address] * PTT (02/14/2025 12:28 AM CDT) Pathologist [facility] PTT 31.2 24.8 - 37.2 seconds 02/14/2025 12:58 AM CDT [facility] Blood Venipuncture / Unknown 02/14/2025 12:28 AM CDT 02/14/2025 12:38 AM CDT Narrative [facility] - 02/14/2025 12:58 AM CDT Therapeutic Range: Hi-level PE/DVT heparin protocol 80.1 - 95.0 sec Lo-level PE/DVT heparin protocol 70.1 - 85.0 sec Cardiac Heparin Protocol 70.1 - 100.0 sec us Kim Wilkinson MD HEMATOLOGY ORDERABLE S Final Result Performing Organization Address [facility]/[place] Co de Phone Number [facility] CLIA # [id number] [address] [place] [address] * (ABNORMAL) TROPONIN BASELINE, 5TH GEN (02/13/2025 11:45 PM CDT) Pathologist [facility] TROPONIN T, BASELINE 5TH GEN 2,273(HH) <=15 ng/L 02/14/2025 12:28 AM CDT [facility] Blood Venipuncture / Unknown 02/13/2025 11:45 PM CDT 02/13/2025 11:51 PM CDT Narrative [facility] - 02/14/2025 12:28 AM CDT Troponin elevated. us Kim Wilkinson MD CHEMISTRY ORDERABLES Final Result [facility] CLIA # [id number] [address] [place] [address] * (ABNORMAL) CBC WITH DIFFERENTIAL (02/13/2025 11:45 PM CDT) [facility] WBC 20.4(H) 4.8 - 10.8 K/uL 02/13/2025 11:59 PM CDT [facility] RBC 3.70(L) 4.60 - 6.20 M/uL 02/13/2025 11:59 PM CDT [facility] HEMOGLOBIN 8.5(L) 14.0 - 18.0 g/dL 02/13/2025 11:59 PM CDT [facility] HEMATOCRIT 31.4(L) 41.0 - 53.0 % 02/13/2025 11:59 [facility] M[facility] 84.9 84.0 - 103.0 fL 02/13/2025 11:59 PM CDT [facility] MCH 23.0(L) 27.0 - 34.0 pg 02/13/2025 11:59 [facility] MCHC 27.1(L) 30.0 - 35.0 g/dL 02/13/2025 11:59 PM [facility] PLATELETS 213 140 - 440 K/uL 02/13/2025 11:59 PM [facility] MPV 9.4 8.9 - 12.8 fL 02/13/2025 11:59 PM [facility] RDW 17.7(H) 11.0 - 14.5 % 02/13/2025 11:59 PM [facility] RDW-STDEV 54.6(H) 37.0 - 54.0 fL 02/13/2025 11:59 PM [facility] NEUTROPHILS 89(H) 42 - 75 % 02/13/2025 11:59 PM CDT [facility] LYMPHOCYTES 4(L) 24 - 44 % 02/13/2025 11:59 PM [facility] MONOCY[facility] 6 2 - 10 % 02/13/2025 11:59 PM [facility] EOSINOPHILS 0 0 - 7 % 02/13/2025 11:59 PM [facility] BASOPHILS 0 0 - 1 % 02/13/2025 11:59 PM CDT [facility] IMMATURE GRANULOCYTES 1 0 - 2 % 02/13/2025 11:59 PM CDT [facility] NEUTROPHIL ABSOLUTE 18.18(H) 2.00 - 8.00 K/uL 02/13/2025 11:59 PM CDT [facility] LYMPHOCYTE ABSOLUTE 0.76(L) 1.20 - 4.00 K/uL 02/13/2025 11:59 PM CDT [facility] MONOCYTE ABSOLUTE 1.19(H) 0.10 - 0.60 K/uL 02/13/2025 11:59 PM CDT [facility] EOSINOPHIL ABSOLUTE 0.09 0.00 - 0.70 K/uL 02/13/2025 11:59 PM CDT [facility] BASOPHILS ABSOLUTE 0.03 0.00 - 0.20 K/uL 02/13/2025 11:59 PM CDT [facility] IMMATURE GRANULOCYTES ABSOLUTE 0.17(H) 0.00 - 0.10 K/uL 02/13/2025 11:59 PM CDT [facility] SMEAR REVIEWED: NN - No Action Needed 02/13/2025 11:59 PM CDT [facility] Blood Venipuncture / Unknown 02/13/2025 11:45 PM CDT 02/13/2025 11:51 PM CDT Kim Wilkinson MD HEMATOLOGY ORDERABLE S Final Result [facility] CLIA # [id number] [address] [place] [address] [place], [place] [address] * TYPE AND SCREEN (02/13/2025 11:45 PM CDT) ABO GROUP O 02/14/2025 1:01 AM CDT [facility] RH (D) TYPE Positive 02/14/2025 1:01 AM CDT [facility] ANTIBODY SCREEN Negative 02/14/2025 1:01 AM CDT [facility] Blood Venipuncture / Unknown 02/13/2025 11:45 PM CDT 02/13/2025 11:50 PM CDT Kim Wilkinson MD BLOOD BANK ORDERABLE S Edited Result - Final [facility] CLIA#[id number] [address] [place] [address], * HEMOGLOBIN A1C (02/11/2025) ABSTRACTED HGB A1C 5.5 % Blood 02/11/2025 us Abstract Provider CHEMISTRY ORDERABLES Final Res ult * ENDOSCOPY, COLON, SCREENING (07/11/2013 12:39 PM WINDROWER OPERATOR) 07/11/2013 12:3 9 PM WINDROWER OPERATOR Narrative Procedure Note Demetri Chávez MD - 07/10/2013 12:00 AM CST Procedures signed by Demetri Chávez MD at 07/11/2013 12:39 PM Author: Demetri Chávez MD Service: -- Author Type: Physician Filed: 07/11/2013 12:39 PM Date of Service: 07/10/2013 5:25 PM Status:Signed Oracle Scm Consultant: Demetri Chávez MD (Physician) Procedure Orders 1. ENDOSCOPY, COLON, MEDICARE SCREENING (WELLNESS) [[id number]] ordered byat 07/01/13 [address] [place], [place] Patient: ISREAL ARGUELLO CSN: [id number] : 1950 Provider: Demetri Chávez MD ENDOSCOPY [...] otherwise unremarkablecolonoscopy. Demetri Chávez MD MMODL D: [id number] V: [id number] cc: Roshan Jimenez DO Roshan Jimenez DO GI PROCEDURE ORDERABLES Fin al Result Performing Organization Address City/State/[place] Co de Phone Number [facility] from Last 3 Months or Most Recently Relevant to Health Maintenance Insurance MEDICAID [place] MEDICARE PART A AND B RX [employer] RX Member Subscriber Plan / Payer ( fective 2023-Present) Name:Isreal Arguello Relation to Subscriber:Self Name:Isreal Arguello Payer ID:Not on file Group ID:[id number] Type:RX Commercial Address: [place], [place] Advance Directives For more information, please contact: [phone] * NO CPR (In Event of Cardiopulmonary Arrest) (Latest Code Status on File) Date Activated Date Inactivated Comments 02/14/2025 3:12 AM 02/19/2025 9:42 PM Question Answer Comments Mechanical Ventilation (for respiratory distress) - Invasive (i.e. intubation): No Mechanical Ventilation (for respiratory distress) - Non-Invasive (i.e. BiPAP, CPAP): Yes * Full Code Date Activated Date Inactivated Comments 02/14/2025 2:27 AM 02/14/2025 3:12 AM * Default Full Code - Needs Discussion Date Activated Date Inactivated Comments 02/13/2025 10:36 PM 02/14/2025 2:27 AM * Full Code Date Activated Date Inactivated Comments 09/19/2023 3:56 PM 09/30/2023 12:28 AM * Full Code Date Activated Date Inactivated Comments 01/11/2023 8:27 AM 01/17/2023 5:08 PM
--- OUTSIDE RECORDS SUMMARY | 2025-03-04 20:50 | XMS_ITS | Encounter Summary ---
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
--- OUTSIDE RECORDS SUMMARY | 2025-03-04 20:50 | XMS_ITS | Encounter Summary ---
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
--- OUTSIDE RECORDS SUMMARY | 2025-03-04 20:50 | XMS_ITS | Encounter Summary ---
Author Organization [facility] Address [address] [facility] Attn: [place] [address] Care Team Providers Care Laydown Machine Operator Name Role Phone Roshan Jimenez [...] Legal Sex Male 4:59 AM DIRECTOR OF FIELD SERVICE Gender Identity Not on file Sexual Orientation Not on file documented as of this encounter Plan of Treatment Not on file documented as of this encounter Visit Diagnoses Not on filedocumented in this encounter Care Teams Laydown Machine Operator Relationship Specialty Start Date End Date Roshan Jimenez DO NO ADDRESS ON FILE PCP - General 03/26/03 documented as of this encounter
--- OUTSIDE RECORDS SUMMARY | 2025-03-04 20:50 | XMS_ITS | Encounter Summary ---
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
--- OUTSIDE RECORDS SUMMARY | 2025-03-04 20:50 | XMS_ITS | Encounter Summary ---
Author Organization [facility] Address [address] [place] [address] Care Team Providers Care Fiberglass Roving Winder Name Role Phone Roshan Jimenez DO Primary Care Provider Unav ailable Encounter Details Date Type Department Care Team (Latest Contact Info) Description 05/30/2002 Outpatient [facility] [address] [place] [address] Roshan Jimenez DO NO ADDRESS ON FILE CHRONIC AIRWAY OBSTRUCTION NEC ([facility]) (Primary Dx); OBESITY NOS; LUMBAGO; VACCINE FOR INFLUENZA Social History Tobacco Use Types Packs/Day Years Used Date Smoking Tobacco: Never Assessed Sex and Gender Information Value Date Recorded Sex Assigned at Not on file 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 Gender Identity Not on file Sexual Orientation Not on file documented as of this encounter Plan of Treatment Not on file documented as of this encounter Visit Diagnoses Diagnosis Chronic airway obstruction, not elsewhere classified ([facility])- Primary Chronic airway obstruction, not elsewhere classified Obesity, unspecified Lumbago Need vaccination-viral disease Need for prophylactic vaccination and inoculation against other viral diseases documented in this encounter Care Teams Fiberglass Roving Winder Relationship Specialty Start Date End Date Roshan Jimenez DO NO ADDRESS ON FILE PCP - General 03/26/03 documented as of this encounter
--- OUTSIDE RECORDS SUMMARY | 2025-03-04 20:50 | XMS_ITS | Encounter Summary ---
Author Organization [facility] Address [address] [place] [address] Care Team Providers Care Tool And Die Maker/Designer Name Role Phone Roshan Jimenez DO Primary Care Provider Unav ailable Encounter Details Date Type Department Care Team (Latest Contact Info) Description 03/22/2000 Outpatient Historical [facility] [address] [place] [address] Roshan Jimenez DO NO ADDRESS ON FILE Unspecified essential hypertension (Primary Dx); Chronic airway obstruction, not elsewhere classified (CMS/HCC); Transient tic disorder; Osteoarthrosis, unspecified whether generalized or localized, unspecified site Social History Tobacco Use Types Packs/Day Years Used Date Smoking Tobacco: Never Assessed Sex and Gender Information Value Date Recorded Sex Assigned at Not on file Legal Sex Male 4:59 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
--- OUTSIDE RECORDS SUMMARY | 2025-03-04 20:50 | XMS_ITS | Encounter Summary ---
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
--- OUTSIDE RECORDS SUMMARY | 2025-03-04 20:50 | XMS_ITS | Encounter Summary ---
Author Organization [facility] Address [address] [place] [address] Care Team Providers Care Talent Acquisition Specialist Name Role Phone Roshan Jimenez DO Primary Care Provider Unav ailable Encounter Details Date Type Department Care Team (Latest Contact Info) Description 12/25/2000 Outpatient [facility] [address] [place] [address] Roshan Jimenez DO NO ADDRESS ON FILE Obstructive chronic bronchitis with exacerbation (CMS/HCC) (Primary Dx); Unspecified chronic bronchitis (CMS/HCC); Unspecified sleep apnea; Obesity, unspecified Social History Tobacco Use Types Packs/Day Years Used Date Smoking Tobacco: Never Assessed Sex and Gender Information Value Date Recorded Sex Assigned at Not on file 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 Gender Identity Not on file Sexual Orientation Not on file documented as of this encounter Plan of Treatment Not on file documented as of this encounter Visit Diagnoses Diagnosis Obstructive chronic bronchitis with exacerbation (CMS/HCC)- Primary Obstructive chronic bronchitis with exacerbation Unspecified chronic bronchitis (CMS/HCC) Unspecified chronic bronchitis Unspecified sleep apnea Obesity, unspecified documented in this encounter Care Teams Talent Acquisition Specialist Relationship Specialty Start Date End Date Roshan Jimenez DO NO ADDRESS ON FILE PCP - General 03/26/03 documented as of this encounter
--- OUTSIDE RECORDS SUMMARY | 2025-03-04 20:50 | XMS_ITS | Encounter Summary ---
Author Organization [facility] Address [address] [place] [address] Care Team Providers Care Radio Rigger Name Role Phone Roshan Jimenez DO Primary Care Provider Unav ailable Encounter Details Date Type Department Care Team (Latest Contact Info) Description 11/13/2002 Outpatient [facility]Stevo Bal [place] [address] [place] [address] Noé Rosa, DPM [address] [place] [address] Onychia of toe (Primary Dx); INGROWING NAIL Social History Tobacco Use Types Packs/Day Years Used Date Smoking Tobacco: Never Assessed Sex and Gender Information Value Date Recorded Sex Assigned at Not on file Legal Sex Male 4:59 AM 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
--- OUTSIDE RECORDS SUMMARY | 2025-03-04 20:50 | XMS_ITS | Encounter Summary ---
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
--- OUTSIDE RECORDS SUMMARY | 2025-03-04 20:50 | XMS_ITS | Encounter Summary ---
Author Organization [facility] Address [address] [place] [address] Care Team Providers Care Mud Tank Operator Name Role Phone Roshan Jimenez DO Primary Care Provider Unav ailable Encounter Details Date Type Department Care Team (Late st Contact Info) Description 12/23/1999 Outpatient Historical [facility] Social History Tobacco Use Types Packs/Day Years Used Date Smoking Tobacco: Never Assessed Sex and Gender Information Value Date Recorded Sex Assigned at Not on file Legal Sex Male 4:59 AM MANAGER Gender Identity Not on file Sexual Orientation Not on file documented as of this encounter Plan of Treatment Not on file documented as of this encounter Visit Diagnoses Not on filedocumented in this encounter Care Teams Mud Tank Operator Relationship Specialty Start Date End Date Roshan Jimenez DO NO ADDRESS ON FILE PCP - General 03/26/03 documented as of this encounter
--- OUTSIDE RECORDS SUMMARY | 2025-03-04 20:50 | XMS_ITS | Encounter Summary ---
Author Organization [facility] Address [address] [place] [address] Care Team Providers Care Family Preservation Worker Name Role Phone Roshan Jimenez DO Primary Care Provider Unav ailable Encounter Details Date Type Department Care Team (Latest Contact Info) Description 01/30/2002 Outpatient [facility] [phone] [place] [phone] Roshan Jimenez DO NO ADDRESS ON FILE CHRONIC AIRWAY OBSTRUCTION NEC ([facility]) (Primary Dx); HYPERTENSION NOS; OTHER UNSPEC SLEEP APNEA; OSTEOARTHROS NOS-UNSPEC Social History Tobacco Use Types Packs/Day Years Used Date Smoking Tobacco: Never Assessed Sex and Gender Information Value Date Recorded Sex Assigned at Not on file Legal Sex Male 4:59 AM 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 SERVICE 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 Gender Identity Not on file Sexual Orientation Not on file documented as of this encounter Plan of Treatment Not on file documented as of this encounter Visit Diagnoses Diagnosis Chronic airway obstruction, not elsewhere classified ([facility])- Primary Chronic airway obstruction, not elsewhere classified Unspecified essential hypertension Unspecified sleep apnea Osteoarthrosis, unspecified whether generalized or localized, unspecified site documented in this encounter Care Teams Family Preservation Worker Relationship Specialty Start Date End Date Roshan Jimenez DO NO ADDRESS ON FILE PCP - General 03/26/03 documented as of this encounter
--- NOTE | 2025-03-04 20:57 | W.ED.RECABL ---
HPI - Recheck/Abnormal Lab/Rx General: Chief Complaint: Recheck/Abnormal Lab/Rx Stated Complaint: LOW HEMOGLOBIN Time Seen by Provider: 03/04/25 20:51 History of Present Illness: Patient is brought in by EMS from the correction with concern for anemia. The patient has a history of iron deficiency anemia and has received multiple transfusions. States that today he had blood drawn at the nursing on a told him his hemoglobin was low. Per EMS his hemoglobin was around 5. Review the chart shows that the patient was taken off his blood thinner last month secondary to complications. He does not know if they have restarted it. There is no indication in the chart that it has been restarted. Patient denies any blood in his stool or blood in his urine. Denies abdominal pain or vomiting. Will check labs, type and screen, and reassess. Related Data Home Medications ?Medication ?Instructions ?Recorded ?Confirmed albuterol sulfate 90 mcg/actuation 2 puff inhalation Q4H PRN 11/02/24 02/11/25 aerosol inhaler Shortness Of Breath Or Wheezing aluminum-mag hydroxide-simethicone 30 ml PO Q2H PRN 11/02/24 02/11/25 400 mg-400 mg-40 mg/5 mL oral susp indigeston/heartburn/gas (Mylanta Maximum Strength) apixaban 5 mg tablet (Eliquis) 5 mg PO BID 11/02/24 02/11/25 Held on 01/31/25. Instructions: Resume on 02/24/25. hold until you see surgery bisacodyl 10 mg rectal suppository 10 mg NV .Q72H PRN Constipation 11/02/24 02/11/25 docusate sodium 100 mg capsule 100 mg PO BID 11/02/24 02/11/25 (Colace) ergocalciferol (vitamin D2) 1,250 50,000 mcg PO Q7D 11/02/24 02/11/25 mcg (50,000 unit) capsule fluoxetine 40 mg capsule 40 mg PO DAILY 11/02/24 02/11/25 fluticasone fur. 200 mcg-umeclid 1 inh inhalation DAILY 11/02/24 02/11/25 62.5 mcg-vilant 25 mcg inhalat.powder (Trelegy Ellipta) magnesium hydroxide 400 mg/5 mL 30 ml PO DAILY PRN Constipation 11/02/24 02/11/25 oral suspension (Milk of Magnesia) multivitamin 1 tab PO QAM 11/02/24 02/11/25 omeprazole 20 mg tablet,delayed 20 mg PO DAILY 11/02/24 02/11/25 release polyethylene glycol 3350 17 17 g PO DAILY PRN bowel management 11/02/24 02/11/25 gram/dose oral powder (Miralax) sennosides 8.6 mg tablet (senna) 8.6 mg PO DAILY 11/02/24 02/11/25 spironolactone 50 mg tablet 50 mg PO DAILY 11/02/24 02/11/25 acetaminophen 325 mg tablet 650 mg PO Q4H PRN general 12/06/24 02/11/25 (Tylenol) discomfort levothyroxine 25 mcg tablet 25 mcg PO DAILY 12/06/24 02/11/25 melatonin 1 mg tablet 3 mg PO BEDTIME 12/06/24 02/11/25 melatonin 5 mg tablet 5 mg PO BEDTIME 12/06/24 02/11/25 gabapentin 400 mg capsule 400 mg PO BID neuropathy 01/28/25 02/11/25 loperamide 2 mg tablet (Imodium 2 mg PO Q6H PRN Diarrhea 01/28/25 02/11/25 A-D) oxycodone-acetaminophen 10 mg-325 1 tab PO Q6H PRN Pain 01/28/25 02/11/25 mg tablet protein supplement See Rx Instructions .Route .COMPLEX 01/28/25 02/11/25 semaglutide 1 mg/dose (4 mg/3 mL) 1 mg SUBCUT Q7D 01/28/25 02/11/25 subcutaneous pen injector (Ozempic) prednisone 20 mg tablet 40 mg PO DAILY 02/11/25 02/11/25 Previous Rx's ?Medication ?Instructions ?Recorded bumetanide 1 mg tablet 1 mg PO BIDAC #60 tabs 11/06/24 Right cockup splint #1 ea 11/28/24 Allergies Allergy/AdvReac Type Severity Reaction Status Date / Time broccoli Allergy ADR-Vomitin Verified 02/10/25 20:12 g Review of Systems Const: Denies: fever(s) or body aches ENMT: Denies: throat pain Card: Denies: chest pain or palpitations GI: Denies: abdominal pain, nausea or vomiting [facility] ED PFSH: Medical History (Updated 03/04/25 @ 21:35 by Compa Langford MD) DNR (do not resuscitate) halfway resident Morbid obesity with BMI of 40.0-44.9, adult COPD with acute exacerbation Open wound of right lower leg Open wound of left lower leg Pressure ulcer of right buttock, stage 3 History of deep vein thrombosis Congestive heart failure Social History Smoking and tobacco/nicotine status: former use of tobacco/nicotine Physical Exam Const: COMMON NORMALS: no acute distress, patient oriented x3 and alert HENMT: COMMON NORMALS: normocephalic and atraumatic HEAD & SCALP: normocephalic and atraumatic Eye: COMMON NORMALS: Equal, round and reactive pupils present and EOMs intact bilaterally PUPIL: Yes Equal, round and reactive pupils present Neck/C-Spine: COMMON NORMALS: full ROM and supple Resp: COMMON NORMALS: normal respiratory effort and No use of accessory muscles Cardio: COMMON NORMALS: regular rate and regular rhythm RATE: regular rate RHYTHM: regular rhythm GI: COMMON NORMALS: Normal to inspection, nondistended, normoactive bowel sounds present, Soft to palpation and non-tender PALPATION: Yes Soft to palpation Neuro: COMMON NORMALS: patient oriented x3 SENSORIUM/ORIENTATION: Yes alert Skin: NARRATIVE SKIN EXAM: Pale Course Vital Signs: Vital signs: Vital Signs Temperature 97.9 F 03/04/25 20:43 Pulse Rate 75 03/04/25 20:43 Respiratory Rate 18 03/04/25 20:43 Blood Pressure 102/54 03/04/25 20:43 Oxygen Delivery Me thod Nasal Cannula 03/04/25 20:43 MDM - Recheck/Abnormal Lab/Rx Medical Decision Making On reassessment I talked to the patient about his test results. His hemoglobin is 5.2. His rectal exam shows jauregui-colored guaiac positive stool. His vital signs are stable the blood pressure 102/54 and a pulse of 75. I discussed the case with the hospitalist and we will initiate blood transfusion of 2 units at this time. Will admit for further workup and treatment of his Hemoccult positive anemia. Lab Data 03/04/25 21:11 03/04/25 21:00 Laboratory Results WBC 14.12 10^3/uL (3.29-11.43) H 03/04/25 21:11 RBC 2.27 10^6/uL (3.85-5.65) L 03/04/25 21:11 Hgb 5.20 g/dL (11.27-16.99) L* 03/04/25 21:11 Hct 19.3 % (37-53) L* 03/04/25 21:11 MCV 85.0 fl (82-101) 03/04/25 21:11 MCH 22.9 pg (27-33) L 03/04/25 21:11 MCHC 26.9 g/dL (30-55) L 03/04/25 21:11 RDW 17.5 % (12.1-15.1) H 03/04/25 21:11 Plt Count 578 10^3/cmm (157-399) H 03/04/25 21:11 MPV 9.0 fL (7.4-10.4) 03/04/25 21:11 Neut % (Auto) 72.3 % 03/04/25 21:11 Lymph % (Auto) 10.8 % 03/04/25 21:11 Wilkes % (Auto) 12.3 % 03/04/25 21:11 Eos % (Auto) 2.7 % 03/04/25 21:11 Baso % (Auto) 0.6 % 03/04/25 21:11 Neut # (Auto) 10.21 10^3/uL (1.8-7.7) H 03/04/25 21:11 Lymph # (Auto) 1.5 10^3/uL (0.8-4.8) 03/04/25 21:11 Wilkes # (Auto) 1.7 10^3/uL (0.2-0.9) H 03/04/25 21:11 Eos # (Auto) 0.4 10^3/uL (0.0-0.8) 03/04/25 21:11 Baso # (Auto) 0.1 10^3/uL (0.0-0.1) 03/04/25 21:11 Nucleated RBC % (auto) 2.9 % 03/04/25 21:11 Nucleated RBCs # 0.4 /100WBC 03/04/25 21:11 Sodium 138 mmol/L (136-145) 03/04/25 21:00 Potassium 4.5 mmol/L (3.5-5.1) 03/04/25 21:00 Chloride 93 mmol/L (98-107) L 03/04/25 21:00 Carbon Dioxide 38 mmol/L (22-29) H 03/04/25 21:00 Anion Gap 11.5 (5-19) 03/04/25 21:00 BUN 26 mg/dL (8-23) H 03/04/25 21:00 Creatinine 1.4 mg/dL (0.7-1.2) H 03/04/25 21:00 GFR Calculation Not Reportable 03/04/25 21:00 Glucose 126 mg/dL (65-115) H 03/04/25 21:00 Calculated Osmolality 292 mOsm/kg (285-295) 03/04/25 21:00 Calcium 8.0 mg/dL (8.5-10.5) L 03/04/25 21:00 Crossmatch See Detail 03/04/25 21:00 No radiology studies performed this visit Critical Care Time Critical Care Time: Critical Care Time: Yes Total Critical Care Time: 35 Attestation: This case had a high probability of a clinically significant, sudden, or life threatening deterioration of this patient's condition which required my full and direct attention, intervention and personal management. Discharge Plan Discharge Patient Disposition: Admitted As Inpatient Clinical Impression: Anemia, Blood in stool Condition: Stable Coding Level of Care Code ED Devil Tender for Chana Glass
[2025-03-04 21:16] LABS: Mean Corpuscular HGB Conc 26.9 g/dL (30-55); Mean Corpuscular Hemoglobin 22.9 pg (27-33); Mean Corpuscular Volume 85.0 fl (82-101); Nucleated Red Blood Cells % 2.9 %; Platelet Count 578 10^3/cmm (157-399); Red Blood Count 2.27 10^6/uL (3.85-5.65); White Blood Count 14.12 10^3/uL (3.29-11.43)
[2025-03-04 21:23] LABS: Hematocrit 19.3 % (37-53); Hemoglobin 5.20 g/dL (11.27-16.99)
[2025-03-04 21:24] LABS: Anion Gap 11.5 (5-19); Blood Urea Nitrogen 26 mg/dL (8-23); Calcium 8.0 mg/dL (8.5-10.5); Carbon Dioxide 38 mmol/L (22-29); Chloride 93 mmol/L (98-107); Creatinine Clr Calc Pharmacy 68.5451; Glucose 126 mg/dL (65-115); Osmolality Calculated 292 mOsm/kg (285-295); Potassium 4.5 mmol/L (3.5-5.1); Sodium 138 mmol/L (136-145)
[2025-03-04 22:31] VITALS: BP 101/65; PULSE 71; RESP 17; TEMP 36.7
[2025-03-04 22:33] VITALS: BP 101/65; PULSE 71; RESP 17; TEMP 36.7; O2SAT 94
[2025-03-04 22:48] VITALS: BP 103/50; PULSE 71; RESP 17; TEMP 36.7
[2025-03-04 23:03] VITALS: PULSE 71; RESP 20; TEMP 36.7; O2SAT 93
[2025-03-05] VITALS (43 sets, daily range): BP systolic 101–146; BP diastolic 52–95; PULSE 65–87; RESP 0–29; TEMP 36.4–37.2; O2SAT 91–100
--- NOTE | 2025-03-05 00:29 | PM.HP ---
Providers/Chief Complaint Admitting Physician: Pavithra Carranza MD Primary Care Provider: Otilio Huang Chief Complaint: LOW HEMOGLOBIN History of Present Illness Edson Jaffe is a 74 year old male with a past medical history of CHF, chronic hypoxic respiratory failure, history of A-fib, recent admission here on February 12, 2025 for an NSTEMI which eventually required transfer to [facility] as patient also had gross hematuria at that time and needed both urology and interventional cardiology interventions. He states he received 1 stent at that admission. He is currently on aspirin and Plavix. His Eliquis was also continued. He is chronically on the anticoagulation for history of DVT. Hematuria as noted on the last pain patient is currently resolved, however he does have a chronic indwelling Robertson catheter. Today at the halfway he had labs drawn which showed a hemoglobin down to 5.2. He is also noted to have leukocytosis at 14,000, down from over 40,000 on his last admission a month ago. Patient denies any specific symptoms at this time. Denies any chest pain dyspnea palpitations or syncope. Denies any hematemesis or melena. He tested FOBT positive in the emergency room. Review of Systems General: Reports: 10 or more systems reviewed and unremarkable except in HPI and below Const: Denies: fever(s), chills or body aches Eyes: Denies: change in vision, blurry vision or photophobia ENMT: Reports: hoarseness; Denies: throat pain, enlarged tonsils, odynophagia or nasal congestion Card: Denies: chest pain, palpitations, irregular heart rhythm, edema, swelling of feet/ankles, lightheadedness, pre-syncope, dyspnea on exertion or orthopnea Resp: Denies: dyspnea, productive cough, non-productive cough, wheezing, stridor, pain on inspiration, change in phlegm color, hemoptysis or chest congestion GI: Denies: abdominal pain, nausea, vomiting, hematemesis, coffee ground emesis, dysphagia, heartburn, diarrhea, constipation, GI cramping, change in stool character, hematochezia or melena : Denies: flank pain, dysuria, urinary frequency, urinary urgency, urinary hesitancy or hematuria Musc: Denies: neck pain, back pain, extremity pain, joint swelling, joint warmth or deformity Neuro: Denies: headache(s), numbness in extremities, weakness in extremities, sensory changes, difficulty walking, frequent falls, dizziness, vertigo, behavioral changes, Slurred speech present or seizure-like activity Psych: Denies: anxiety, depression, suicidal ideation or homicidal ideation Endo: Denies: polyuria, polydipsia, tired all the time, cold intolerance or hot flashes Tyrell/Lymph: Denies: easy bruising or easy bleeding Medications/Allergies Home Medications ?Medication ?Instructions ?Recorded ?Confirmed ?Last Taken ?Type albuterol sulfate 90 mcg/actuation 2 puff inhalation Q4H PRN 11/02/24 02/11/25 12/05/24 History aerosol inhaler Shortness Of Breath Or Wheezing aluminum-mag hydroxide-simethicone 30 ml PO Q2H PRN 11/02/24 02/11/25 Unknown History 400 mg-400 mg-40 mg/5 mL oral susp indigeston/heartburn/gas (Mylanta Maximum Strength) apixaban 5 mg tablet (Eliquis) 5 mg PO BID 11/02/24 02/11/25 01/27/25 History Held on 01/31/25. Instructions: Resume on 02/24/25. hold until you see surgery bisacodyl 10 mg rectal suppository 10 mg HI .Q72H PRN Constipation 11/02/24 02/11/25 Unknown History docusate sodium 100 mg capsule 100 mg PO BID 11/02/24 02/11/25 02/10/25 History (Colace) ergocalciferol (vitamin D2) 1,250 50,000 mcg PO Q7D 11/02/24 02/11/25 02/06/25 History mcg (50,000 unit) capsule fluoxetine 40 mg capsule 40 mg PO DAILY 11/02/24 02/11/25 02/10/25 History fluticasone fur. 200 mcg-umeclid 1 inh inhalation DAILY 11/02/24 02/11/25 02/10/25 History 62.5 mcg-vilant 25 mcg inhalat.powder (Trelegy Ellipta) magnesium hydroxide 400 mg/5 mL 30 ml PO DAILY PRN Constipation 11/02/24 02/11/25 01/21/25 History oral suspension (Milk of Magnesia) multivitamin 1 tab PO QAM 0302/11/25 02/10/25 History omeprazole 20 mg tablet,delayed 20 mg PO DAILY 11/02/24 02/11/25 02/10/25 History release polyethylene glycol 3350 17 17 g PO DAILY PRN bowel management 11/02/24 02/11/25 11/20/24 History gram/dose oral powder (Miralax) sennosides 8.6 mg tablet (senna) 8.6 mg PO DAILY 11/02/24 02/11/25 02/09/25 History spironolactone 50 mg tablet 50 mg PO DAILY 11/02/24 02/11/25 02/10/25 History bumetanide 1 mg tablet 1 mg PO BIDAC #60 tabs 11/06/24 02/11/25 02/10/25 Rx Right cockup splint #1 ea 11/28/24 02/11/25 Unknown Rx acetaminophen 325 mg tablet 650 mg PO Q4H PRN general 12/06/24 02/11/25 01/30/25 History (Tylenol) discomfort levothyroxine 25 mcg tablet 25 mcg PO DAILY 12/06/24 02/11/25 02/10/25 History melatonin 1 mg tablet 3 mg PO BEDTIME 12/06/24 02/11/25 02/09/25 History melatonin 5 mg tablet 5 mg PO BEDTIME 12/06/24 02/11/25 02/09/25 History gabapentin 400 mg capsule 400 mg PO BID neuropathy 01/28/25 02/11/25 02/10/25 History loperamide 2 mg tablet (Imodium 2 mg PO Q6H PRN Diarrhea 01/28/25 02/11/25 02/01/25 History A-D) oxycodone-acetaminophen 10 mg-325 1 tab PO Q6H PRN Pain 01/28/25 02/11/25 02/10/25 History mg tablet protein supplement See Rx Instructions .Route .COMPLEX 01/28/25 02/11/25 02/10/25 History semaglutide 1 mg/dose (4 mg/3 mL) 1 mg SUBCUT Q7D 01/28/25 02/11/25 01/23/25 History subcutaneous pen injector (Ozempic) prednisone 20 mg tablet 40 mg PO DAILY 02/11/25 02/11/25 02/05/25 History Allergies Allergy/AdvReac Type Severity Reaction Status Date / Time broccoli Allergy ADR-Vomitin Verified 02/10/25 20:12 g PFSH Acute PFSH: Medical History DNR (do not resuscitate) [facility] resident Morbid obesity with BMI of 40.0-44.9, adult COPD with acute exacerbation Open wound of right lower leg Open wound of left lower leg Pressure ulcer of right buttock, stage 3 History of deep vein thrombosis Congestive heart failure Social History Smoking and tobacco/nicotine status: former use of tobacco/nicotine Vitals/I&O/Wt Last Vital Signs Temp 98.1 F 03/05/25 00:03 Pulse 75 03/05/25 00:03 Resp 20 H 03/05/25 00:03 BP 116/73 03/05/25 00:03 Pulse Ox 94 03/05/25 00:03 O2 Del Method Nasal Cannula 03/05/25 00:00 O2 Flow Rate 3 03/05/25 00:00 03/04/25 03/04/25 03/05/25 14:59 22:59 06:59 Intake Total 0 / 0 Balance 0 / 0 Weight last 48 hrs Weight 137.62 kg Physical Exam Narrative: General: No acute distress, AO x3 HEENT: PERRLA, pupils bilaterally equal and reactive, pallors not present Chest: Normal vesicular breath sounds, no added sounds, equal good air entry bilaterally CVS: S1-S2 regular, no murmurs, no tachycardia, no gallops, no rubs Abdomen: Soft, nontender, no organomegaly, bowel sounds present Neuro: No focal deficits, no facial deformity, AO x3, power 5/5 in all limbs Data 03/04/25 21:11 03/04/25 21:00 Other Labs: Laboratory Results WBC 14.12 10^3/uL (3.29-11.43) H 03/04/25 21:11 RBC 2.27 10^6/uL (3.85-5.65) L 03/04/25 21:11 Hgb 5.20 g/dL (11.27-16.99) L* 03/04/25 21:11 Hct 19.3 % (37-53) L* 03/04/25 21:11 MCV 85.0 fl (82-101) 03/04/25 21:11 MCH 22.9 pg (27-33) L 03/04/25 21:11 MCHC 26.9 g/dL (30-55) L 03/04/25 21:11 RDW 17.5 % (12.1-15.1) H 03/04/25 21:11 Plt Count 578 10^3/cmm (157-399) H 03/04/25 21:11 MPV 9.0 fL (7.4-10.4) 03/04/25 21:11 Neut % (Auto) 72.3 % 03/04/25 21:11 Lymph % (Auto) 10.8 % 03/04/25 21:11 Sibley % (Auto) 12.3 % 03/04/25 21:11 Eos % (Auto) 2.7 % 03/04/25 21:11 Baso % (Auto) 0.6 % 03/04/25 21:11 Neut # (Auto) 10.21 10^3/uL (1.8-7.7) H 03/04/25 21:11 Lymph # (Auto) 1.5 10^3/uL (0.8-4.8) 03/04/25 21:11 Sibley # (Auto) 1.7 10^3/uL (0.2-0.9) H 03/04/25 21:11 Eos # (Auto) 0.4 10^3/uL (0.0-0.8) 03/04/25 21:11 Baso # (Auto) 0.1 10^3/uL (0.0-0.1) 03/04/25 21:11 Nucleated RBC % (auto) 2.9 % 03/04/25 21:11 Nucleated RBCs # 0.4 /100WBC 03/04/25 21:11 Sodium 138 mmol/L (136-145) 03/04/25 21:00 Potassium 4.5 mmol/L (3.5-5.1) 03/04/25 21:00 Chloride 93 mmol/L (98-107) L 03/04/25 21:00 Carbon Dioxide 38 mmol/L (22-29) H 03/04/25 21:00 Anion Gap 11.5 (5-19) 03/04/25 21:00 BUN 26 mg/dL (8-23) H 03/04/25 21:00 Creatinine 1.4 mg/dL (0.7-1.2) H 03/04/25 21:00 GFR Calculation Not Reportable 03/04/25 21:00 Glucose 126 mg/dL (65-115) H 03/04/25 21:00 Calculated Osmolality 292 mOsm/kg (285-295) 03/04/25 21:00 Calcium 8.0 mg/dL (8.5-10.5) L 03/04/25 21:00 Blood Type O Positive 03/04/25 21:00 Rho(D) Type Rh positive 03/04/25 21:00 Antibody Screen Negative 03/04/25 21:00 Crossmatch See Detail 03/04/25 21:00 A&P Assessment and plan 1. Anemia: 2. Coronary artery disease: 3. History of deep vein thrombosis: Plan: 74-year-old male with past medical history as noted above, currently referred to the hospital after being found to have a hemoglobin down to 5.2 earlier today at the halfway Patient is currently denying any specific symptoms. Reports a history of blood transfusion in the past. He has been ordered for 2 units of packed red blood cell transfusion in the emergency room which will be continued. Recheck H&H posttransfusion. He is currently hemodynamically stable in spite of the low hemoglobin. In reviewing his past numbers, patient's recent baseline hemoglobin appears to be between 7.8-8.4. However this was noted to be at 12.3 in June 2024. Current acute loss may be related to recent gross hematuria, however I do not currently have any discharge hemoglobin available from [facility] to compare. Records have been requested from [facility]. Patient is currently on aspirin Plavix and Eliquis. Since he had stents placed less than a month ago, aspirin and Plavix will be continued at this time. Will hold Eliquis for now. Clear liquid diet for now. Started on Protonix 40 mg IV every 12 hours in view of positive FOBT. Patient is unsure if he had any GI assessment while at [facility]. Again records have been requested to review if patient had any endoscopic evaluation. Slow GI loss could certainly be reason for his downtrending hemoglobin since earlier this year. He may need endoscopic evaluation to safely resume triple therapy. Noted leukocytosis, however no localizing signs or symptoms of infection at this time. Suspect this is a downtrend from a WBC count of 30,000 on his last admission. Will monitor for now off antimicrobials. DVT prophylaxis: Holding Eliquis for now due to severe anemia and positive FOBT DNR/DNI PDMP PDMP Reviewed: Not Reviewed Attestations Medical Necessity Statement*: Greater than 2 midnight stay is currently anticipated Coding Level of Care Code Acute Code for [facility] Fwd Diagnoses Anemia D64.9 Coronary artery disease I25.10 History of deep vein thrombosis Z86.718
[2025-03-05] MEDS: pantoprazole 40 mg SDV IVP ×2 (04:56→17:10)
[2025-03-05 06:11] LABS: Hematocrit 23.5 % (37-53); Hemoglobin 6.90 g/dL (11.27-16.99); Mean Corpuscular HGB Conc 29.4 g/dL (30-55); Mean Corpuscular Hemoglobin 25.3 pg (27-33); Mean Corpuscular Volume 86.1 fl (82-101); Nucleated Red Blood Cells % 2.6 %; Platelet Count 520 10^3/cmm (157-399); Red Blood Count 2.73 10^6/uL (3.85-5.65); White Blood Count 14.93 10^3/uL (3.29-11.43)
[2025-03-05 06:33] LABS: Alanine Aminotransferase 8 U/L (0-41); Albumin Level 2.6 g/dL (3.5-5.2); Alkaline Phosphatase 131 U/L (40-130); Anion Gap 10.5 (5-19); Aspartate Amino Transferase 10 U/L (0-40); Blood Urea Nitrogen 25 mg/dL (8-23); Calcium 8.0 mg/dL (8.5-10.5); Carbon Dioxide 38 mmol/L (22-29); Chloride 94 mmol/L (98-107); Creatinine Clr Calc Pharmacy 73.8178; Globulin 5.1 g/dL (1.3-4.6); Glucose 119 mg/dL (65-115); Osmolality Calculated 292 mOsm/kg (285-295); Potassium 4.5 mmol/L (3.5-5.1); Sodium 138 mmol/L (136-145); Total Protein 7.7 g/dL (6.6-8.7)
--- NOTE | 2025-03-05 11:32 | ECG_ITS ---
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 Measurements Intervals [place] Rate: 65 P: 60 AL: 187 QRS: 4 QRSD: 95 T: -33 QT: 422 QTc: 442 Interpretive Statements SINUS RHYTHM LOW QRS VOLTAGE IN PRECORDIAL LEADS [QRS DEFLECTION < 1.0 mV IN CHEST LEADS] SEPTAL MYOCARDIAL INFARCTION , PROBABLY OLD [40+ ms Q WAVE IN V1/V2] Compared to ECG 03/04/2025 20:55:04 Myocardial infarct finding now present T-wave abnormality no longer present Electronically Signed On 03-05-2025 20:01:43 CDT by Michelle Sandhu M.D. [id number]
[2025-03-05 11:46] LABS: Hematocrit 24.7 % (37-53); Hemoglobin 7.60 g/dL (11.27-16.99)
[2025-03-05 11:59] LABS: Vitamin B12 646 pg/mL (232-1245)
[2025-03-05 12:04] LABS: Troponin(5th) Baseline 263 ng/L (0-15)
--- NOTE | 2025-03-05 12:10 | PC.NURSE ---
PER VERBAL INSTRUCTION BY DR. NUÑEZ TO HOLD NITRO PATCH DUE TO PT HYPOTENSION.
--- NOTE | 2025-03-05 13:33 | P.PN_ITS ---
Vitals/I&O/Wt Last Vital Signs Temp 98.1 F 03/05/25 04:00 Pulse 76 03/05/25 13:15 Resp 19 H 03/05/25 04:00 BP 103/60 03/05/25 13:15 Pulse Ox 98 03/05/25 13:15 O2 Del Method Nasal Cannula 03/05/25 04:00 O2 Flow Rate 2 03/05/25 04:00 03/04/25 03/05/25 03/05/25 22:59 06:59 14:59 Intake Total 0 / 0 700 / 700 Balance 0 / 0 700 / 700 Weight last 48 hrs Weight 137.62 kg Physical Exam 2 Narrative: General: No acute distress, AO x3, morbidly obese, on nasal cannula, chronically sick appearing HEENT: PERRLA, pupils bilaterally equal and reactive, pallors not present Chest: Normal vesicular breath sounds, no added sounds, equal good air entry bilaterally CVS: S1-S2 regular, no murmurs, no tachycardia, no gallops, no rubs Abdomen: Soft, nontender, no organomegaly, bowel sounds present Neuro: No focal deficits, no facial deformity, AO x3, power 5/5 in all limbs Data 03/05/25 11:38 03/05/25 06:04 A&P Assessment and plan 1. Anemia: New hemoglobin of 5.2 on admission. Received units of blood transfusion overnight. Up to 6.9. Target hemoglobin over 8 given history of CAD. Stool for occult blood positive in ER. Will check formal occult blood as well. Patient currently on DAPT and Eliquis. DAPT for recent PCI. Eliquis for history of DVT and A-fib. For now we will hold off on Eliquis. Patient understand he is at a risk of recurrent thromboembolism and a possible stroke but currently given his significant anemia he is agreeable. He understands DAPT cannot be discontinued as he had PCI very recently. Check hemoglobin every 8 hours. Repeat 2 units of blood transfusion. IV Lasix 40 mg along with blood transfusion. 2. Coronary artery disease: History of recent PCI at [facility]. Will request documentation. For now continue with DAPT, statin. Continue with home dose of metoprolol. Will request documentation from outside hospital. Patient complaining of mild chest pain. Check troponin cycled. If troponin cycle positive will consult cardiology and request limited echocardiogram. Hold off on heparin for now. 3. History of deep vein thrombosis: 4. Congestive heart failure: Last echocardiogram From 02/12/2025 shows EF of 45 to 50% with mild global LV hypokinesia. Currently mild congestive acute decompensated systolic heart failure. IV Lasix as above along with blood transfusion. Otherwise continue with home dose of Bumex. Fluid restriction to less than 1500 cc. Check chest x-ray, proBNP. 5. Chronic indwelling Robertson catheter: Check urinalysis. Patient does have leukocytosis . Does not have any fever for now. Hold off on IV antibiotics. 6. CKD (chronic kidney disease): Baseline creatinine recently for last 1 month seems to be around 1.3-1.6. Medical reconciliation done for nephrotoxic drugs. Hold off on home dose of spironolactone. Monitor BMP daily. Monitor electrolytes. 7. Atrial fibrillation: 8. Positive occult stool blood test: Hemoglobin 5.8 on admission. Bedside stool for blood positive in the ER. Protonix 40 mg twice daily along with Carafate AC and at bedtime. Cannot discontinue DAPT as patient is post PCI recently in 1 month. Monitor hemoglobin as above. Plan: Clear liquid diet. Protonix as above. Heparin cannot be used given anemia. SCD for DVT prophylaxis. DNR/DNI. Admit to CSU. PDMP PDMP Reviewed: Not Reviewed Attestations 2 Medical Necessity Statement*: Requires further hospitalization for management of significant anemia, chest pain in a patient with history of congestive heart failure, recent CAD post PCI requiring blood transfusion Diagnoses Anemia D64.9 Coronary artery disease I25.10 History of deep vein thrombosis Z86.718 Congestive heart failure I50.9 Chronic indwelling Robertson catheter Z97.8 CKD (chronic kidney disease) N18.9 Atrial fibrillation I48.91 Positive occult stool blood test R19.5
--- NOTE | 2025-03-05 13:34 | XR_ITS ---
WS: [id number] Exam: XR chest 1V portable [id number] Date/Time of Exam: 03/05/2025 1:34 PM Reason For Exam: sob Comparison 02/10/2025. RIGHT middle lobe atelectasis. No consolidating infiltrates. No pneumothorax. Heart size top limits normal. No pleural effusions. The mediastinum is normal in contour. XR/XR chest 1V portable [id number] IMPRESSION: 1. RIGHT middle lobe atelectasis. 2. No acute pulmonary infiltrate or other significant finding.
--- NOTE | 2025-03-05 13:40 | PC.NURSE ---
Patient transferred from ED to CSU at 1340.
--- NOTE | 2025-03-05 14:16 | ECG_ITS ---
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 Measurements Intervals [place] Rate: 72 P: 64 CO: 182 QRS: -3 QRSD: 91 T: 0 QT: 393 QTc: 431 Interpretive Statements SINUS RHYTHM WITH OCCASIONAL VENTRICULAR PREMATURE COMPLEXES LOW QRS VOLTAGE IN PRECORDIAL LEADS [QRS DEFLECTION < 1.0 mV IN CHEST LEADS] SEPTAL MYOCARDIAL INFARCTION , PROBABLY OLD [40+ ms Q WAVE IN V1/V2] MODERATE T-WAVE ABNORMALITY, CONSIDER LATERAL ISCHEMIA [-0.1+ mV T-WAVE IN I/aVL/V5/V6] Compared to ECG 03/05/2025 11:32:14 Ventricular premature complex(es) now present T-wave abnormality now present Possible ischemia now present Myocardial infarct finding still present Electronically Signed On 03-05-2025 20:24:36 CDT by Michelle Sandhu M.D. [email or web address] [id number]
[2025-03-05 14:20] LABS: Glucose Urine UA Negative (Normal); Nitrate Urine Negative (Negative); Specific Gravity, Urine 1.021 (1.005-1.030)
--- NOTE | 2025-03-05 14:43 | USCV_ITS ---
Edson Jaffe Age: 74 Gender: M : 1950 Exam Date: 03/05/2025 18:56 Ordering Phys: Milagro Currie Technologist: LUCRECIA [place] [facility] [place]: elevated trooponin, hx CAD s/p PCI, hx CHF, chronic hypoxia, History of Atrial fibrillation, BP: 114 / 73 HR: 71 Rhythm: Sinus Technical Quality: Adequate MEASUREMENTS (Male / Female) Normal Values 2D ECHO LV Diastolic Diameter PLAX 5.3 cm 4.2 - 5.9 / 3.9 - 5.3 cm IVS Diastolic Thickness 1.5 cm 0.6 - 1.0 / 0.6 - 0.9 cm IVS Systolic Thickness 1.8 cm LVPW Diastolic Thickness 1.2 cm 0.6 - 1.0 / 0.6 - 0.9 cm LVPW Systolic Thickness 1.8 cm LVOT Diameter 2.3 cm LV Ejection Fraction 2D Teich 67.6 % LV Ejection Fraction MOD 4C 34.9 % LV Ejection Fraction MOD 2C 54.8 % LV Ejection Fraction 2C AL 55.5 % LA Diameter 4.2 cm Aorta at Sinotubular Diameter 2.8 cm IVC Diameter 2.0 cm M-MODE LA Ao Ratio MM 1.0 AV Cusp Separation MM 0.8 cm DOPPLER AV Peak Velocity 286.0 cm/s LVOT Peak Velocity 97.0 cm/s AV Area Cont Eq vti 1.6 cm squared AV Area Cont Eq pk 1.4 cm squared MV Peak Velocity 152.0 cm/s MV Area PHT 2.7 cm squared Mitral E to A Ratio 0.6 TR Peak Velocity 280.0 cm/s TR Peak Gradient 31.4 mmHg TV Peak E Velocity 73.0 cm/s FINDINGS Left Ventricle Left ventricle is normal size. LV systolic function is moderately reduced with EF of 35 to 40%. Moderate global hypokinesis with severe hypokinesis of the lateral wall. Grade 1 diastolic dysfunction. Right Ventricle Normal in size and function Right Atrium Normal in size Left Atrium Normal in size Mitral Valve Structurally normal mitral valve. Mild mitral regurgitation Aortic Valve Aortic valve is thickened. Mild aortic stenosis with aortic valve area 1.58 cm squared and mean gradient of 16 mmHg Tricuspid Valve Mild tricuspid regurgitation. Pulmonary artery systolic pressure is normal. Pulmonic Valve Not well visualized Pericardium Normal Aorta Normal in size IVC Appears to be normal CONCLUSIONS LV systolic function is moderately reduced with EF of 35-40%. Grade 1 diastolic dysfunction. Mild mitral regurgitation. Mild aortic stenosis. Mild tricuspid regurgitation. Kaz Stafford MD (Electronically Signed) Final Date: 06 March 2025 15:28 S
--- NOTE | 2025-03-05 14:45 | PC.PHAR ---
Patient from [facility] . Verified medications off list .
[2025-03-05 14:58] LABS: Add Urine Microscopic? YES; UA Manual Slide Review YES
--- NOTE | 2025-03-05 14:59 | P.CONIM_ITS ---
<Statement entered by Kaz Stafford M.D - 03/09/25 13:39> Patient was evaluated and cared for in conjunction with an advanced practice practitioner.? I personally examined the patient and reviewed the chart and all pertinent data including imaging, telemetry, and laboratory results.? I discussed the patient in detail with the advanced practice practitioner.? Please see? their note for complete consult note, testing results and agreed upon plan of care for the patient. ? GENERAL: Patient is alert HEART: Regular S1 and S2 LUNGS: Clear to auscultate bilaterally. CENTRAL NERVOUS SYSTEM: Grossly nonfocal. EXTREMITIES: Lower extremities with 1+ edema Patient has presented with severe anemia. Had a recent PCI performed at [facility] in [place]. Will obtain records. He is denying active chest pain at this time. Will hold off on further invasive procedures given severe anemia and need for transfusions. Obtain limited echocardiogram. Thank you for involving us with care of this patient. Please call with questions. Providers/Reason For Consult 2 Consulting Physician/Specialty*: Dr Stafford, cardiology Reason for Consult*: elevated troponin Requesting Physician: Sahil Ellington MD Attending Physician: Sahil Ellington MD Primary Care Provider: Otilio Huang History of Present Illness History of Present Illness Edson Jaffe is a 74 year old male with past medical history of systolic CHF (LVEF 45 to 50% 02/12/2025), atrial fibrillation, CAD s/p recent stent placement at [facility] in [place] (unknown vessel), history of DVT previously anticoagulated with apixaban, COPD. He is a [facility] resident, was brought to the emergency room via EMS yesterday evening due to hemoglobin level 5.2. He had not noticed any blood in his stool, found to be Hemoccult positive. At that time he was not having any chest pain, however he has had some chest pain since admission which felt similar to his chest pain last month prior to the stent, resolved spontaneously. At the time of my exam he is chest pain-free. He had a baseline troponin at 11 this morning which was 263. 2-hour troponin is pending. EKG shows sinus rhythm, no ST or T wave abnormalities. Telemetry monitoring shows some isolated PVCs. Review of Systems 2 Const: Denies: fever(s), chills, change in weight, fatigue or diaphoresis Eyes: Denies: change in vision ENMT: Denies: epistaxis Card: Reports: dyspnea on exertion and orthopnea; Denies: chest pain, palpitations, irregular heart rhythm, edema, syncope, pre- syncope or leg pain with exertion Resp: Denies: dyspnea, productive cough or wheezing GI: Denies: nausea, vomiting, hematemesis or hematochezia (pt denies, but FOBT positive) : Denies: hematuria Musc: Denies: extremity swelling Tyrell/Lymph: Denies: easy bruising or easy bleeding Medications/Allergies Home Medications ?Medication ?Instructions ?Recorded ?Confirmed ?Last Taken ?Type albuterol sulfate 90 mcg/actuation 2 puff inhalation Q 4H PRN 11/02/24 03/05/25 12/05/24 History aerosol inhaler Shortness Of Breath Or Wheez ing aluminum-mag hydroxide-simethicone 30 ml PO Q2H PRN 03/05/25 02/22/25 19:45 History 400 mg-400 mg-40 mg/5 mL oral susp indigeston/heartbur n/gas (Mylanta Maximum Strength) apixaban 5 mg tablet (Eliquis) 5 mg PO BID 11/02/2403/04/25 16:30 History Held on 01/31/25. Instructions: Resume on 02/24/25. hold until you see surgery bisacodyl 10 mg rectal suppository 10 mg DE .Q72H PRN Constipation 11/02/24 03/05/25 Unknown History docusate sodium 100 mg capsule 100 mg PO BID 11/02/24 03/05/25 02/10/25 History (Colace) ergocalciferol (vitamin D2) 1,250 50,000 mcg PO Q7D 03/05/25 02/24/25 09:00 History mcg (50,000 unit) capsule fluoxetine 40 mg capsule 40 mg PO DAILY 11/02/24 0705/2203/04/25 08:45 History fluticasone fur. 200 mcg-umeclid 1 inh inhalation THUY Y 11/02/24 03/05/25 03/04/25 08:45 History 62.5 mcg-vilant 25 mcg inhalat.powder (Trelegy Ellipta) magnesium hydroxide 400 mg/5 mL 30 ml PO DAILY PRN Con stipation 11/02/24 03/05/25 02/25/25 08:30 History oral suspension (Milk of Magnesia) multivitamin 1 tab PO QAM 11/02/2403/04/25 08:45 History polyethylene glycol 3350 17 17 g PO DAILY PRN bowel ma nagement 11/02/24 03/05/25 11/20/24 History gram/dose oral powder (Miralax) sennosides 8.6 mg tablet (senna) 8.6 mg PO DAILY 11/0203/05/25 02/09/25 History spironolactone 50 mg tablet 50 mg PO DAILY 11/02/2403/04/25 08:45 History Right cockup splint #1 ea 11/28/24 03/05/25 Unkn own Rx acetaminophen 325 mg tablet 650 mg PO Q4H PRN general 12/06/24 03/05/25 01/30/25 History (Tylenol) discomfort levothyroxine 25 mcg tablet 25 mcg PO DAILY 12/06/24 0 03/05/25 03/04/25 08:45 History gabapentin 400 mg capsule 400 mg PO BID neuropathy 11/1903/05/25 03/04/25 08:45 History loperamide 2 mg tablet (Imodium 2 mg PO Q6H PRN Diarrh ea 01/28/25 03/05/25 02/01/25 History A-D) oxycodone-acetaminophen 10 mg-325 1 tab PO Q6H PRN Deb n 01/28/25 03/05/25 03/04/25 16:30 History mg tablet protein supplement See Rx Instructions .Route . COMPLEX 01/28/25 03/05/25 02/10/25 History albuterol sulfate 2.5 mg/3 mL 2.5 mg continuous nebuli zation 03/05/25 03/05/25 03/04/25 11:40 History (0.083 %) solution for nebulization .TID PRN respitory failure aspirin 81 mg tablet,delayed 81 mg PO DAILY 03/05/25 0 03/05/25 03/04/25 08:45 History release (Radha Low Dose Aspirin) atorvastatin 40 mg tablet 40 mg PO QPM 03/05/2503/03/25 20:15 History clopidogrel 75 mg tablet 75 mg PO DAILY 03/05/25 07/0 05/2203/04/25 08:45 History furosemide 40 mg tablet 40 mg PO .BID 03/05/2503/0503/04/25 12:05 History melatonin 3 mg tablet 6 mg PO DAILY 03/05/2503/05 Unknown History metoprolol succinate 25 mg 25 mg PO DAILY 03/05/2505/2203/04/25 08:45 History tablet,extended release 24 hr nitroglycerin 0.4 mg sublingual See Rx Instructions .R oute .COMPLEX 03/05/25 03/05/25 Unknown History tablet pantoprazole 40 mg tablet,delayed 40 mg PO DAILY 03/0503/05/25 03/04/25 08:45 History release potassium chloride 10 mEq 10 meq PO DAILY 03/05/2505/2203/04/25 08:45 History tablet,extended release(part/cryst) triamcinolone acetonide 0.5 % See Rx Instructions .Rou te .COMPLEX 03/05/25 03/05/25 03/04/25 10:35 History topical cream Allergies Allergy/AdvReac Type Severity Reaction Status Date / Time broccoli Allergy ADR-Vomitin Verified 02/10/25 20:12 g Current Medications Generic Name Dose Route Start Last Admin Trade Name Al PRN Reason Stop Dose Admin Aspirin 81 mg 03/05/25 09:00 03/05/25 09:19 Aspirin 81 Mg Ec Tablet PO 81 mg DAILY HARJINDER Administration Bumetanide 1 mg 03/05/25 07:00 03/05/25 07:26 Bumetanide 1 Mg Tablet PO 1 mg BIDAC HARJINDER Administration Clopidogrel Bisulfate 75 mg 03/05/25 09:00 03/05/25 09:19 Clopidogrel 75 Mg Tablet PO 75 mg DAILY HARJINDER Administration Fluoxetine HCl 40 mg 03/05/25 09:00 03/05/25 09:19 Fluoxetine 20 Mg Capsule PO 40 mg DAILY HARJINDER Administration Gabapentin 400 mg 03/05/25 09:00 03/05/25 10:35 Gabapentin 400 Mg Capsule PO 400 mg BID HARJINDER Administration Levothyroxine Sodium 25 mcg 03/05/25 09:00 03/05/25 09:19 Levothyroxine 25 Mcg Tablet PO 25 mcg DAILY HARJINDER Administration Nitroglycerin 1 patch 03/05/25 11:30 03/05/25 12:09 Nitroglycerin 0.1 Mg Patch TRANSDERMA Not Given Q24H HARJINDER Pantoprazole Sodium 40 mg 03/05/25 03:58 03/05/25 04:56 Pantoprazole 40 Mg Sdv IVP 40 mg Q12H HARJINDER Administration Sodium Chloride 50 ml 03/05/25 11:01 03/05/25 14:24 Sodium Chloride 0.9% 100 Ml Bag IV 03/06/25 11:01 50 ml PRN PRN Administration Blood transfusion prime and flush PFSH Acute 2 PFSH: Medical History Congestive heart failure Atrial fibrillation CKD (chronic kidney disease) History of deep vein thrombosis DNR (do not resuscitate) [facility] resident Morbid obesity with BMI of 40.0-44.9, adult COPD with acute exacerbation Open wound of right lower leg Open wound of left lower leg Pressure ulcer of right buttock, stage 3 Social History Smoking and tobacco/nicotine status: former use of tobacco/nicotine Vitals/I&O/Wt Last Vital Signs Temp 98.1 F 03/05/25 14:41 Pulse 70 03/05/25 14:41 Resp 18 03/05/25 14:41 BP 116/55 03/05/25 14:41 Pulse Ox 94 03/05/25 14:41 O2 Del Method Nasal Cannula 03/05/25 14:39 O2 Flow Rate 1 03/05/25 14:39 03/04/25 03/05/25 03/05/25 22:59 06:59 14:59 Intake Total 0 / 700 700 / 700 0 / 0 Output Total 1400 / 1400 Balance 0 / 700 700 / 700 -1400 / -1400 Weight last 48 hrs Weight 303 lb 6.4 oz Physical Exam 2 Const: COMMON NORMALS: no acute distress and patient oriented x3 GENERAL APPEARANCE: cooperative and comfortable ORIENTATION/CONSCIOUSNESS: Yes awake, Yes oriented to person, Yes oriented to place and Yes oriented to time Chest: COMMONS NORMALS: normal inspection of the chest and normal palpation of entire chest wall CHEST: Yes Symmetrical chest wall rise Resp: COMMON NORMALS: normal respiratory effort, No retractions, No use of accessory muscles and clear to auscultation bilaterally EFFORT & INSPECTION: Yes symmetric chest movement, Yes uses accessory muscles (with exhalation) and Yes prolonged expiratory phase AUSCULTATION: clear to auscultation bilaterally and diminished lung sounds bilateral in the lower lung portillo Cardio: COMMON NORMALS: regular rate, regular rhythm, S1 normal heart sound present, S2 normal heart sound present, No gallops present (Cardio), No clicks present (Cardio), No murmurs present (Cardio) and No rub (Cardio) RATE: r egular rate RHYTHM: regular rhythm HEART SOUNDS: S1 normal heart sound present and S2 normal heart sound present PERIPHERAL PULSES: radial pulses present Extremity: COMMON NORMALS: no pedal edema Neuro: COMMON NORMALS: patient oriented x3 and moves all extremities S ENSORIUM/ORIENTATION: Yes oriented to person, Yes oriented to place and Yes oriented to time Data 03/05/25 11:38 03/05/25 06:04 A&P Assessment and plan 1. Coronary artery disease: 2. Atrial fibrillation: 3. Acute on chronic HFrEF (heart failure with reduced ejection fraction): 4. Anemia: 5. Positive occult stool blood test: 6. Elevated troponin: Plan: He has significant anemia, improved to 7.6 after transfusion. Baseline troponin was elevated at 263, 3 weeks ago was in the 2400 range. Records have been requested for intervention performed at [facility]. Will continue to trend troponin, obtain limited echocardiogram to assess LVEF. He appears euvolemic, shortness of breath seems to be more COPD and anemia related. He is a DNR/DNI. Agree with holding [facility]. Continue aspirin and Plavix. PDMP PDMP Reviewed: Not Reviewed Coding Level of Care Code Acute Code for [facility] Diagnoses Coronary artery disease I25.10 Atrial fibrillation I48.91 Acute on chronic HFrEF (heart failure with reduced ejection fraction) I50.23 Anemia D64.9 Positive occult stool blood test R19.5 Elevated troponin R79.89
[2025-03-05 15:01] LABS: Other Crystals Urine AMM BIURATE /hpf
[2025-03-05 15:46] LABS: Anion Gap 13.4 (5-19); Blood Urea Nitrogen 22 mg/dL (8-23); Calcium 8.0 mg/dL (8.5-10.5); Carbon Dioxide 34 mmol/L (22-29); Chloride 96 mmol/L (98-107); Creatinine Clr Calc Pharmacy 95.9631; Glucose 97 mg/dL (65-115); Osmolality Calculated 291 mOsm/kg (285-295); Potassium 4.4 mmol/L (3.5-5.1); Sodium 139 mmol/L (136-145); Troponin 5 2HR 261.8 ng/L (0-15); Troponin 5 2HR Delta -1.2 ABS# (0-10)
[2025-03-05 15:59] LABS: NT Pro B Type Natriuretic Pept 3850 pg/mL (0-125)
--- NOTE | 2025-03-05 16:53 | ECG_ITS ---
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 Measurements Intervals [place] Rate: 76 P: 42 MI: 181 QRS: -6 QRSD: 96 T: 34 QT: 421 QTc: 475 Interpretive Statements SINUS RHYTHM WITH FREQUENT SUPRAVENTRICULAR PREMATURE COMPLEXES LOW QRS VOLTAGE IN PRECORDIAL LEADS [QRS DEFLECTION < 1.0 mV IN CHEST LEADS] SEPTAL MYOCARDIAL INFARCTION , PROBABLY OLD [40+ ms Q WAVE IN V1/V2] MODERATE T-WAVE ABNORMALITY, CONSIDER LATERAL ISCHEMIA [-0.1+ mV T-WAVE IN I/aVL/V5/V6] Compared to ECG 03/05/2025 14:16:48 Ventricular premature complex(es) no longer present Myocardial infarct finding still present T-wave abnormality still present Possible ischemia still present Electronically Signed On 03-05-2025 20:24:01 CDT by Michelle Sandhu M.D. [id number]
[2025-03-05] MEDS: FUROsemide 10 mg/mL SDV 4mL 40 MG IVP (17:10)
[2025-03-05] MEDS: sucralfate 1 gm/10 mL Oral Liq UDC PO ×2 (17:23→21:52)
[2025-03-05 18:15] LABS: Troponin 5 6HR Delta 11.5 ng/L (0-12)
[2025-03-05 18:28] LABS: Troponin 5 6HR 274.5 ng/L (0-15)
--- NOTE | 2025-03-05 18:49 | PC.NURSE ---
Patient presented to the unit with a montejo catheter that had [facility] at the [facility] prior to [facility]. Patient was wet from the waist down when he arrived at to the floor. Patient was urinating around the catheter. A new catheter was placed.
[2025-03-05 22:53] LABS: Hematocrit 30.5 % (37-53); Hemoglobin 9.30 g/dL (11.27-16.99)
[2025-03-06] VITALS (20 sets, daily range): BP systolic 114–141; BP diastolic 54–76; PULSE 67–93; RESP 16–26; TEMP 36.6–37; O2SAT 91–98; BMI 42.5
[2025-03-06 03:08] LABS: Hematocrit 29.7 % (37-53); Hemoglobin 8.90 g/dL (11.27-16.99); Mean Corpuscular HGB Conc 30.0 g/dL (30-55); Mean Corpuscular Hemoglobin 26.0 pg (27-33); Mean Corpuscular Volume 86.8 fl (82-101); Nucleated Red Blood Cells % 2.5 %; Platelet Count 507 10^3/cmm (157-399); Red Blood Count 3.42 10^6/uL (3.85-5.65); White Blood Count 13.05 10^3/uL (3.29-11.43)
[2025-03-06 03:25] LABS: Alanine Aminotransferase 6 U/L (0-41); Albumin Level 2.6 g/dL (3.5-5.2); Alkaline Phosphatase 132 U/L (40-130); Anion Gap 12.2 (5-19); Aspartate Amino Transferase 8 U/L (0-40); Blood Urea Nitrogen 20 mg/dL (8-23); Calcium 8.2 mg/dL (8.5-10.5); Carbon Dioxide 37 mmol/L (22-29); Chloride 96 mmol/L (98-107); Creatinine Clr Calc Pharmacy 81.1974; Globulin 5.3 g/dL (1.3-4.6); Glucose 100 mg/dL (65-115); Osmolality Calculated 295 mOsm/kg (285-295); Potassium 4.2 mmol/L (3.5-5.1); Sodium 141 mmol/L (136-145); Total Protein 7.9 g/dL (6.6-8.7)
[2025-03-06] MEDS: pantoprazole 40 mg SDV IVP ×2 (04:59→16:14)
--- NOTE | 2025-03-06 05:38 | PC.NURSE ---
Patient was having a lot of wheezing. Dr Carranza was notified and respiratory treat and assess order was placed along with fide q6hr.
[2025-03-06] MEDS: sucralfate 1 gm/10 mL Oral Liq UDC PO ×4 (06:16→21:13)
--- NOTE | 2025-03-06 08:00 | P.PN_ITS ---
<Statement entered by Kaz Stafford M.D - 03/09/25 13:45> Patient was cared for in conjunction with an advanced practice practitioner.? I reviewed the chart and all pertinent data including imaging, telemetry, and laboratory results.? I discussed the patient in detail with the advanced practice practitioner.? Please see their note for complete progress note, testing results and agreed upon plan of care for the patient. Continue medical therapy. No indication for invasive workup at this time. EF has improved from before. In [place] intervention was to circumflex artery system which was infarcted with heavy thrombus burden. Subjective 2 Subjective: No events overnight. Awaiting read on echocardiogram. Troponin trend 263->261->274. Hemoglobin increased to 9.8 after blood transfusion.No chest pain or shortness of breath. Reviewed records from [facility] [place] from coronary angiogram procedure performed 02/14/2025 he had significant ostial to proximal circumflex stenosis treated with stent, first obtuse marginal 100% stenosed, lateral first marginal branch 100% stenosed, luminal irregularity of the left main, mild diffuse disease of the LAD, proximal 35% LAD stenosis, large RCA minimal luminal irregularity proximal to mid RCA 35% stenosis. There was significant thrombus burden due to late presentation CA, he was treated with Aggrastat, thrombectomy attempted to the distal branches of the OM. Echocardiogram performed at that time showed LVEF 30 to 35%. Vitals/I&O/Wt Last Vital Signs Temp 98.0 F 03/06/25 11:03 Pulse 74 03/06/25 13:04 Resp 16 03/06/25 13:00 BP 117/58 03/06/25 11:03 Pulse Ox 93 03/06/25 13:00 O2 Del Method Nasal Cannula 03/06/25 13:00 O2 Flow Rate 2 03/06/25 13:00 03/05/25 03/06/25 03/06/25 22:59 06:59 14:59 Intake Total 700 / 700 Output Total 1500 / 3400 500 / 3400 Balance -800 / -2700 -500 / -2700 Weight last 48 hrs Weight 313 lb 4 oz Weight 312 lb Weight 303 lb 6.4 oz Physical Exam 2 Const: COMMON NORMALS: no acute distress and patient oriented x3 GENERAL APPEARANCE: cooperative and comfortable ORIENTATION/CONSCIOUSNESS: Yes awake, Yes oriented to person, Yes oriented to place and Yes oriented to time Chest: COMMONS NORMALS: normal inspection of the chest and normal palpation of entire chest wall CHEST: Yes Symmetrical chest wall rise Resp: COMMON NORMALS: normal respiratory effort, No retractions, No use of accessory muscles and clear to auscultation bilaterally EFFORT & INSPECTION: Yes symmetric chest movement AUSCULTATION: clear to auscultation bilaterally Cardio: COMMON NORMALS: regular rate, regular rhythm, S1 normal heart sound present, S2 normal heart sound present, No gallops present (Cardio), No clicks present (Cardio), No murmurs present (Cardio) and No rub (Cardio) RATE: r egular rate RHYTHM: regular rhythm HEART SOUNDS: S1 normal heart sound present and S2 normal heart sound present PERIPHERAL PULSES: radial pulses present Extremity: COMMON NORMALS: no pedal edema Neuro: COMMON NORMALS: patient oriented x3 and moves all extremities S ENSORIUM/ORIENTATION: Yes oriented to person, Yes oriented to place and Yes oriented to time Urinary Catheter Management: Robertson: Cath Placed During This Visit: yes Reason for Continuing Indwelling Catheter: Other Urinary Catheter Date of Insertion: 03/05/25 Urinary Catheter Time of Insertion: 18:45 Data 03/06/25 11:46 03/06/25 03:03 A&P Assessment and plan 1. Coronary artery disease: 2. Atrial fibrillation: 3. Acute on chronic HFrEF (heart failure with reduced ejection fraction): 4. Anemia: 5. Positive occult stool blood test: 6. Elevated troponin: Plan: When results of echocardiogram are available we will compare to most recent imaging in [place]. If LVEF is the same will recommend medical management, if LVEF has dropped will require coronary angiogram. PDMP PDMP Reviewed: Not Reviewed Attestations 2 Medical Necessity Statement*: Elevated troponin, GI bleed, systolic CHF Coding Level of Care Code Acute Code for [facility] Diagnoses Coronary artery disease I25.10 Atrial fibrillation I48.91 Acute on chronic HFrEF (heart failure with reduced ejection fraction) I50.23 Anemia D64.9 Positive occult stool blood test R19.5 Elevated troponin R79.89
[2025-03-06] MEDS: bumetanide 0.25 mg/mL SDV 10 mL 2 MG IVP ×2 (10:48→21:13)
--- NOTE | 2025-03-06 10:56 | PM.PN ---
Subjective Subjective: No acute events overnight. Patient has remained hemodynamically stable and afebrile. Remains on baseline oxygen supplementation of 2 L saturating more than 95%. States he does not have any difficulty in breathing or chest pain today. States he does still not feel 100%. Vitals/I&O/Wt Last Vital Signs Temp 98.4 F 03/06/25 07:02 Pulse 76 03/06/25 10:47 Resp 16 03/06/25 07:46 BP 129/68 03/06/25 10:47 Pulse Ox 98 03/06/25 07:46 O2 Del Method Nasal Cannula 03/06/25 07:46 O2 Flow Rate 3 03/06/25 07:46 03/05/25 03/06/25 03/06/25 22:59 06:59 14:59 Intake Total 700 / 700 Output Total 1500 / 2900 500 / 3400 Balance -800 / -2200 -500 / -2700 Weight last 48 hrs Weight 142.088 kg Weight 141.521 kg Weight 137.62 kg Physical Exam Narrative: General: No acute distress, AO x3, morbidly obese, on nasal cannula, chronically sick appearing HEENT: PERRLA, pupils bilaterally equal and reactive, pallors not present Chest: Normal vesicular breath sounds, no added sounds, equal good air entry bilaterally CVS: S1-S2 regular, no murmurs, no tachycardia, no gallops, no rubs Abdomen: Soft, nontender, no organomegaly, bowel sounds present Neuro: No focal deficits, no facial deformity, AO x3, power 5/5 in all limbs Urinary Catheter Management: Robertson: Cath Placed During This Visit: yes Reason for Continuing Indwelling Catheter: Other Urinary Catheter Date of Insertion: 03/05/25 Urinary Catheter Time of Insertion: 18:45 Data 03/06/25 03:03 03/06/25 03:03 A&P Assessment and plan 1. Anemia: New hemoglobin of 5.2 on admission. Post 4 unit of blood transfusion Target hemoglobin over 8 given history of CAD. Stool for occult blood positive in ER. Will check formal occult blood as well. Patient currently on DAPT and Eliquis. DAPT for recent PCI. Eliquis for history of DVT and A-fib. For now we will hold off on Eliquis. Patient understand he is at a risk of recurrent thromboembolism and a possible stroke but currently given his significant anemia he is agreeable. He understands DAPT cannot be discontinued as he had PCI very recently. Check hemoglobin every 8 hours. If hemoglobin trends down will consult surgery for possible EGD and colonoscopy. Continue with Protonix twice daily, Carafate ACHS. 2. Coronary artery disease: History of recent PCI at [facility]. Appreciate documentation from outside hospital. For now continue with DAPT, statin. Continue with home dose of metoprolol. Appreciate troponin cycle trending down. Most likely elevated troponin in setting of demand ischemia from severe anemia. Will plan for limited echocardiogram. Appreciate cardiology recommendation. 3. History of deep vein thrombosis: 4. Congestive heart failure: Last echocardiogram From 02/12/2025 shows EF of 45 to 50% with mild global LV hypokinesia. Currently mild congestive acute decompensated systolic heart failure. Takes Bumex 1 mg twice daily at home. Overall net negative. For now we will switch to IV Bumex 2 mg every 12 hourly. Fluid restriction to less than 1500 cc. Repeat BMP in afternoon to monitor for renal functions and hypokalemia. 5. Chronic indwelling Robertson catheter: Continue to monitor off IV antibiotics. Patient has remained afebrile. Will check blood cultures. 6. CKD (chronic kidney disease): Baseline creatinine recently for last 1 month seems to be around 1.3-1.6. Creatinine 1.2 for now. Medical reconciliation done for nephrotoxic drugs. Hold off on home dose of spironolactone. 7. Atrial fibrillation: Heart rate so far stable. Continue with home dose of metoprolol. 8. Positive occult stool blood test: Hemoglobin 5.8 on admission. Bedside stool for blood positive in the ER. Continue with Protonix 40 mg twice daily along with Carafate AC and at bedtime. Cannot discontinue DAPT as patient is post PCI recently in 1 month. Monitor hemoglobin as above. Plan: Advance to full liquid diet. Protonix as above. Heparin cannot be used given anemia. SCD for DVT prophylaxis. DNR/DNI. Admit to CSU. PDMP PDMP Reviewed: Not Reviewed Attestations Medical Necessity Statement*: Requires further hospitalization for management of acute anemia requiring blood transfusion in a patient who underwent recent PCI, congestive heart failure Diagnoses Anemia D64.9 Coronary artery disease I25.10 History of deep vein thrombosis Z86.718 Congestive heart failure I50.9 Chronic indwelling Robertson catheter Z97.8 CKD (chronic kidney disease) N18.9 Atrial fibrillation I48.91 Positive occult stool blood test R19.5
[2025-03-06 11:55] LABS: Hematocrit 33.9 % (37-53); Hemoglobin 9.80 g/dL (11.27-16.99)
[2025-03-06 15:07] LABS: Anion Gap 14.1 (5-19); Blood Urea Nitrogen 20 mg/dL (8-23); Calcium 8.3 mg/dL (8.5-10.5); Carbon Dioxide 34 mmol/L (22-29); Chloride 95 mmol/L (98-107); Creatinine Clr Calc Pharmacy 81.3759; Glucose 137 mg/dL (65-115); Osmolality Calculated 293 mOsm/kg (285-295); Potassium 4.1 mmol/L (3.5-5.1); Sodium 139 mmol/L (136-145)
[2025-03-06 19:19] LABS: Hematocrit 30.4 % (37-53); Hemoglobin 9.00 g/dL (11.27-16.99)
[2025-03-06] MEDS: oxyCODONE-APAP 10-325 mg Tablet 1 TAB PO (21:22)
[2025-03-07] VITALS (10 sets, daily range): BP systolic 103–120; BP diastolic 51–64; PULSE 70–87; RESP 18–24; TEMP 36.6; O2SAT 94–98; BMI 42.3
[2025-03-07 04:02] LABS: Hematocrit 31.3 % (37-53); Hemoglobin 9.10 g/dL (11.27-16.99); Mean Corpuscular HGB Conc 29.1 g/dL (30-55); Mean Corpuscular Hemoglobin 25.7 pg (27-33); Mean Corpuscular Volume 88.4 fl (82-101); Nucleated Red Blood Cells % 1.9 %; Platelet Count 530 10^3/cmm (157-399); Red Blood Count 3.54 10^6/uL (3.85-5.65); White Blood Count 13.44 10^3/uL (3.29-11.43)
[2025-03-07] MEDS: pantoprazole 40 mg SDV IVP (04:07)
[2025-03-07 04:27] LABS: Alanine Aminotransferase 6 U/L (0-41); Albumin Level 2.6 g/dL (3.5-5.2); Alkaline Phosphatase 132 U/L (40-130); Anion Gap 11.8 (5-19); Aspartate Amino Transferase 8 U/L (0-40); Blood Urea Nitrogen 18 mg/dL (8-23); Calcium 8.2 mg/dL (8.5-10.5); Carbon Dioxide 37 mmol/L (22-29); Chloride 94 mmol/L (98-107); Creatinine Clr Calc Pharmacy 81.3759; Globulin 5.4 g/dL (1.3-4.6); Glucose 102 mg/dL (65-115); Osmolality Calculated 290 mOsm/kg (285-295); Potassium 3.8 mmol/L (3.5-5.1); Sodium 139 mmol/L (136-145); Total Protein 8.0 g/dL (6.6-8.7)
--- NOTE | 2025-03-07 07:15 | PC.NURSE ---
Wound to buttocks is old in various stages of scarring and healing. Sacrum is pink and blanchable. No open areas observed at this time.
--- NOTE | 2025-03-07 08:05 | P.PN_ITS ---
<Statement entered by Kaz Stafford M.D - 03/09/25 14:08> Patient was cared for in conjunction with an advanced practice practitioner.? I reviewed the chart and all pertinent data including imaging, telemetry, and laboratory results.? I discussed the patient in detail with the advanced practice practitioner.? Please see their note for complete progress note, testing results and agreed upon plan of care for the patient. Subjective 2 Subjective: He is looking better today, no events overnight. Blood pressure and hemoglobin stable. No chest pain or shortness of breath. Vitals/I&O/Wt Last Vital Signs Temp 97.8 F 03/07/25 07:38 Pulse 75 03/07/25 07:47 Resp 20 H 03/07/25 07:47 BP 106/63 03/07/25 07:38 Pulse Ox 98 03/07/25 07:47 O2 Del Method Nasal Cannula 03/07/25 07:47 O2 Flow Rate 3 03/07/25 07:47 03/06/25 03/07/25 03/07/25 22:59 06:59 14:59 Intake Total 240 / 240 Output Total 1900 / 1900 700 / 700 Balance -1900 / -1900 -460 / -460 Weight last 48 hrs Weight 312 lb 7 oz Weight 313 lb 4 oz Weight 312 lb Physical Exam 2 Const: COMMON NORMALS: no acute distress and patient oriented x3 GENERAL APPEARANCE: cooperative and comfortable ORIENTATION/CONSCIOUSNESS: Yes awake, Yes oriented to person, Yes oriented to place and Yes oriented to time Chest: COMMONS NORMALS: normal inspection of the chest and normal palpation of entire chest wall CHEST: Yes Symmetrical chest wall rise Resp: COMMON NORMALS: normal respiratory effort, No retractions, No use of accessory muscles and clear to auscultation bilaterally EFFORT & INSPECTION: Yes symmetric chest movement AUSCULTATION: clear to auscultation bilaterally Cardio: COMMON NORMALS: regular rate, regular rhythm, S1 normal heart sound present, S2 normal heart sound present, No gallops present (Cardio), No clicks present (Cardio), No murmurs present (Cardio) and No rub (Cardio) RATE: r egular rate RHYTHM: regular rhythm HEART SOUNDS: S1 normal heart sound present and S2 normal heart sound present PERIPHERAL PULSES: radial pulses present Extremity: COMMON NORMALS: no pedal edema Neuro: COMMON NORMALS: patient oriented x3 and moves all extremities S ENSORIUM/ORIENTATION: Yes oriented to person, Yes oriented to place and Yes oriented to time Urinary Catheter Management: Robertson: Cath Placed During This Visit: yes Reason for Continuing Indwelling Catheter: Chronic Indwelling Urinary Catheter on Admission Urinary Catheter Date of Insertion: 03/05/25 Urinary Catheter Time of Insertion: 18:45 Data 03/07/25 03:20 03/07/25 03:20 Micro: Microbiology 03/07/25 09:03 Blood Culture - Preliminary Blood SPECIMEN COLLECTED 03/07/25 09:00 Blood Culture - Preliminary Blood SPECIMEN COLLECTED A&P Assessment and plan 1. Coronary artery disease: 2. Atrial fibrillation: 3. Acute on chronic HFrEF (heart failure with reduced ejection fraction): 4. Anemia: 5. Positive occult stool blood test: 6. Elevated troponin: Plan: LVEF unchanged from previous admission in [place] last month. Will continue medical management of elevated troponin, felt to be demand related due to to significant anemia. Okay to discharge when okay with hospitalist service. PDMP PDMP Reviewed: Not Reviewed Attestations 2 Medical Necessity Statement*: Per hospitalist Coding Level of Care Code Acute Code for [facility] Diagnoses Coronary artery disease I25.10 Atrial fibrillation I48.91 Acute on chronic HFrEF (heart failure with reduced ejection fraction) I50.23 Anemia D64.9 Positive occult stool blood test R19.5 Elevated troponin R79.89
[2025-03-07] MEDS: bumetanide 0.25 mg/mL SDV 10 mL 2 MG IVP (08:25)
[2025-03-07] MEDS: metoprolol succinate ER (24 HR) 25 mg Tablet PO (08:25)
[2025-03-07] MEDS: sucralfate 1 gm/10 mL Oral Liq UDC PO (08:26)
--- NOTE | 2025-03-07 09:19 | PC.SOCIAL ---
IMM Update pg 2 of IMM Updated and reviewed w/ patient. Copy provided and copy dated, initialed and placed in chart.
--- NOTE | 2025-03-07 10:10 | PM.DCS ---
Discharge Providers Date of Admission: 03/04/25 21:35 Date of Discharge: March 07, 2025 Attending Provider at Admission: Pavithra Carranza MD Attending Provider at Discharge: Sahil Ellington MD Primary Care Provider: Otilio Huang Diagnoses at Discharge Discharge Diagnosis 1. Coronary artery disease: 2. Atrial fibrillation: 3. Acute on chronic HFrEF (heart failure with reduced ejection fraction): 4. Anemia: 5. Positive occult stool blood test: 6. Elevated troponin: Reason for Visit Reason for Visit: LOW HEMOGLOBIN Brief History: History as per HPI: Edson Jaffe is a 74 year old male with a past medical history of CHF, chronic hypoxic respiratory failure, history of A-fib, recent admission here on February 12, 2025 for an NSTEMI which eventually required transfer to [facility] as patient also had gross hematuria at that time and needed both urology and interventional cardiology interventions. He states he received 1 stent at that admission. He is currently on aspirin and Plavix. His Eliquis was also continued. He is chronically on the anticoagulation for history of DVT. Hematuria as noted on the last pain patient is currently resolved, however he does have a chronic indwelling Robertson catheter. Today at the [facility] he had labs drawn which showed a hemoglobin down to 5.2. He is also noted to have leukocytosis at 14,000, down from over 40,000 on his last admission a month ago. Patient denies any specific symptoms at this time. Denies any chest pain dyspnea palpitations or syncope. Denies any hematemesis or melena. He tested FOBT positive in the emergency room. Hospital Course Hospital Course Patient was admitted to the hospital further evaluation and management of acute on chronic anemia in setting of recent hematuria after which he had a Robertson catheter in place, recent PCI for which he is on DAPT and Eliquis for a possible history of DVT and atrial fibrillation. His DAPT was continued given recent PCI while Eliquis was withheld. Overall patient required 4 unit of blood transfusion after which his hemoglobin remained stable on multiple checks. Patient did not have diarrheal bowel movements during hospitalization. Given recent history of PCI cardiology was consulted and echocardiogram was done which showed an EF of 35 to 40% with grade 1 diastolic dysfunction and mild aortic stenosis. Cardiology recommended medical treatment. His diuretics were adjusted. Overall patient's hospitalization was unremarkable. He did have leukocytosis on admission which seems to be chronic. His blood culture remained negative, UA was negative for concerns for UTI. Patient remained hemodynamically stable, afebrile off antibiotics during hospitalization. He has been discharged to hemodynamically stable condition with advised to take Bumex 2 mg every morning, 1 mg every evening with 1 mg extra as needed for weight gain of 5 pounds. He is to not take Eliquis for next 1 month while continue taking DAPT. He has to repeat hemoglobin level in 1 week. After 4 weeks he should resume Eliquis while discontinuing baby aspirin. Going forward after 1 month he should only be on Plavix and Eliquis till discontinued by his outpatient completion manager. He should also have a repeat hemoglobin check 1 week after resuming Eliquis. If hemoglobin continues to trend down patient should have endoscopy and a colonoscopy. Physical Exam Narrative: General: No acute distress, AO x3, morbidly obese, on nasal cannula, chronically sick appearing HEENT: PERRLA, pupils bilaterally equal and reactive, pallors not present Chest: Normal vesicular breath sounds, no added sounds, equal good air entry bilaterally CVS: S1-S2 regular, no murmurs, no tachycardia, no gallops, no rubs Abdomen: Soft, nontender, no organomegaly, bowel sounds present Neuro: No focal deficits, no facial deformity, AO x3, power 5/5 in all limbs Urinary Catheter Management: Robertson: Cath Placed During This Visit: yes Reason for Continuing Indwelling Catheter: Chronic Indwelling Urinary Catheter on Admission Urinary Catheter Date of Insertion: 03/05/25 Urinary Catheter Time of Insertion: 18:45 Discharge Data Studies Completed and Pending Completed Studies During Hospitalization Category Date Time Status XR chest 1V portable [id number] Routine Exams 03/05/25 13:34 Completed CV. echo limited [id number] Routine Ultrasound 03/05/25 14:43 Completed Pending at discharge Category Date Time Status Blood Culture Stat Lab 03/07/25 09:03 Results Hemoglobin and Hematocrit Q8H Lab 03/07/25 11:01 Ordered LAB Peripheral Smear Routine Lab 03/07/25 03:20 Received Radiology Impressions Chest X-Ray 03/05/25 13:34 IMPRESSION: 1. RIGHT middle lobe atelectasis. 2. No acute pulmonary infiltrate or other significant finding. Echocardiogram: CONCLUSIONS LV systolic function is moderately reduced with EF of 35-40%. Grade 1 diastolic dysfunction. Mild mitral regurgitation. Mild aortic stenosis. Mild tricuspid regurgitation. Kaz Stafford MD (Electronically Signed) Final Date: 06 March 2025 Laboratory Results WBC 13.44 10^3/uL (3.29-11.43) H 03/07/25 03:20 RBC 3.54 10^6/uL (3.85-5.65) L 03/07/25 03:20 Hgb 9.10 g/dL (11.27-16.99) L 03/07/25 03:20 Hct 31.3 % (37-53) L 03/07/25 03:20 MCV 88.4 fl (82-101) 03/07/25 03:20 MCH 25.7 pg (27-33) L 03/07/25 03:20 MCHC 29.1 g/dL (30-55) L 03/07/25 03:20 RDW 17.8 % (12.1-15.1) H 03/07/25 03:20 Plt Count 530 10^3/cmm (157-399) H 03/07/25 03:20 MPV 9.1 fL (7.4-10.4) 03/07/25 03:20 Neut % (Auto) 70.7 % 03/07/25 03:20 Lymph % (Auto) 14.0 % 03/07/25 03:20 [place] % (Auto) 11.0 % 03/07/25 03:20 Eos % (Auto) 2.6 % 03/07/25 03:20 Baso % (Auto) 0.4 % 03/07/25 03:20 Neut # (Auto) 9.50 10^3/uL (1.8-7.7) H 03/07/25 03:20 Lymph # (Auto) 1.9 10^3/uL (0.8-4.8) 03/07/25 03:20 [place] # (Auto) 1.5 10^3/uL (0.2-0.9) H 03/07/25 03:20 Eos # (Auto) 0.4 10^3/uL (0.0-0.8) 03/07/25 03:20 Baso # (Auto) 0.1 10^3/uL (0.0-0.1) 03/07/25 03:20 Nucleated RBC % (auto) 1.9 % 03/07/25 03:20 Nucleated RBCs # 0.3 /100WBC 03/07/25 03:20 Sodium 139 mmol/L (136-145) 03/07/25 03:20 Potassium 3.8 mmol/L (3.5-5.1) 03/07/25 03:20 Chloride 94 mmol/L (98-107) L 03/07/25 03:20 Carbon Dioxide 37 mmol/L (22-29) H 03/07/25 03:20 Anion Gap 11.8 (5-19) 03/07/25 03:20 BUN 18 mg/dL (8-23) 03/07/25 03:20 Creatinine 1.2 mg/dL (0.7-1.2) 03/07/25 03:20 GFR Calculation Not Reportable 03/07/25 03:20 Glucose 102 mg/dL (65-115) 03/07/25 03:20 Calculated Osmolality 290 mOsm/kg (285-295) 03/07/25 03:20 Calcium 8.2 mg/dL (8.5-10.5) L 03/07/25 03:20 Total Bilirubin 0.4 mg/dL (0.15-1.2) 03/07/25 03:20 AST 8 U/L (0-40) 03/07/25 03:20 ALT 6 U/L (0-41) 03/07/25 03:20 Alkaline Phosphatase 132 U/L (40-130) H 03/07/25 03:20 Troponin T Baseline 263 ng/L (0-15) H* 03/05/25 11:38 Troponin T 120 Minute 261.8 ng/L (0-15) H 03/05/25 15:17 Delta Troponin T -1.2 ABS# (0-10) L 03/05/25 15:17 Troponin T Hi Sens 6Hr 274.5 ng/L (0-15) H 03/05/25 17:51 Troponin T Hi Sens 6Hr Delta 11.5 ng/L (0-12) 03/05/25 17:51 NT-Pro-B Natriuret Pep 3850 pg/mL (0-125) H 03/05/25 15:17 Total Protein 8.0 g/dL (6.6-8.7) 03/07/25 03:20 Albumin 2.6 g/dL (3.5-5.2) L 03/07/25 03:20 Globulin 5.4 g/dL (1.3-4.6) H 03/07/25 03:20 Vitamin B12 646 pg/mL (232-1245) 03/04/25 21:00 Folate 8.2 ng/mL (4.5-32.2) 03/06/25 03:03 Urine Color Yellow (Yellow) 03/05/25 13:45 Urine Appearance Turbid (CLEAR) A 03/05/25 13:45 Urine pH >=9.0 (5-7) A 03/05/25 13:45 Ur Specific [place] 1.021 (1.005-1.030) 03/05/25 13:45 Urine Protein 3+ (Negative) A 03/05/25 13:45 Urine Glucose (UA) Negative (Normal) 03/05/25 13:45 Urine Ketones Negative (Negative) 03/05/25 13:45 Urine Blood Negative (Negative) 03/05/25 13:45 Urine Nitrate Negative (Negative) 03/05/25 13:45 Urine Bilirubin Negative (Negative) 03/05/25 13:45 Urine Urobilinogen 1.0 mg/dL (Negative) 03/05/25 13:45 Ur Leukocyte Esterase 3+ (Negative) A 03/05/25 13:45 Urine RBC 0-4 /hpf (0-2) H 03/05/25 13:45 Urine WBC 0-4 /hpf (0-5) H 03/05/25 13:45 Ur Squamous Epith Cells 0-4 /hpf (0-5) H 03/05/25 13:45 Triple Phos Crystals 15-25 /hpf H 03/05/25 13:45 Other Crystals Amm biurate /hpf 03/05/25 13:45 Amorphous Sediment 2+ /hpf 03/05/25 13:45 Urine Bacteria 1+ /hpf (NONE) H 03/05/25 13:45 Blood Type O Positive 03/04/25 21:00 Rho(D) Type Rh positive 03/04/25 21:00 Antibody Screen Negative 03/04/25 21:00 Crossmatch See Detail 03/04/25 21:00 Vitals Last Vital Signs Temp 97.8 F 03/07/25 07:38 Pulse 75 03/07/25 07:47 Resp 20 H 03/07/25 07:47 BP 106/63 03/07/25 07:38 Pulse Ox 98 03/07/25 07:47 O2 Del Method Nasal Cannula 03/07/25 07:47 O2 Flow Rate 3 03/07/25 07:47 Discharge Plan Discharge Patient Disposition: Xfer SNF Condition: Stable Prescriptions: New sucralfate 1 gram tablet 1 g PO Q6H 84 Days Qty: 336 0RF bumetanide 1 mg tablet 1 mg PO BID Qty: 120 0RF Rx Instructions: 2 mg qam, 1 mg qpm Continued (DME) Right cockup splint See Rx Instructions .Route .MEDSUPPLY Qty: 1 0RF Rx Instructions: As directed albuterol sulfate 2.5 mg /3 mL (0.083 %) solution for nebulization 2.5 mg continuous nebulization .TID PRN (Reason: respitory failure) triamcinolone acetonide 0.5 % cream See Rx Instructions .ROUTE .COMPLEX Rx Instructions: 1 applic topically to buttocks two times a days for skin integrity. acetaminophen [Tylenol] 325 mg Tablet 650 mg PO Q4H PRN (Reason: general discomfort) levothyroxine 25 mcg Tablet 25 mcg PO DAILY atorvastatin 40 mg tablet 40 mg PO QPM melatonin 3 mg Tablet 6 mg PO DAILY clopidogrel 75 mg tablet 75 mg PO DAILY aspirin [Radha Low Dose Aspirin] 81 mg Tablet,Delayed Release (Dr/Ec) 81 mg PO DAILY nitroglycerin 0.4 mg tablet, sublingual See Rx Instructions .ROUTE .COMPLEX Rx Instructions: give 1 tablet 0.4 sublingual every 5 minutes as needed for chest pain x3 doses if no relief call metoprolol succinate 25 mg tablet extended release 24 hr 25 mg PO DAILY multivitamin Tablet 1 tab PO QAM fluoxetine 40 mg capsule 40 mg PO DAILY sennosides [senna] 8.6 mg Tablet 8.6 mg PO DAILY magnesium hydroxide [Milk of Magnesia] 400 mg/5 mL Suspension 30 ml PO DAILY PRN (Reason: Constipation) bisacodyl 10 mg Suppository 10 mg AK .Q72H PRN (Reason: Constipation) docusate sodium [Colace] 100 mg Capsule 100 mg PO BID ergocalciferol (vitamin D2) 1,250 mcg (50,000 unit) capsule 50,000 mcg PO Q7D Rx Instructions: polyethylene glycol 3350 [Miralax] 17 gram/dose Powder 17 g PO DAILY PRN (Reason: bowel management) albuterol sulfate 90 mcg/actuation HFA aerosol inhaler 2 puff INHALATION Q4H PRN (Reason: Shortness Of Breath Or Wheezing) alum-mag hydroxide-simeth [Mylanta Maximum Strength] 400-400-40 mg/5 mL Suspension 30 ml PO Q2H PRN (Reason: indigeston/heartburn/gas) spironolactone 50 mg tablet 50 mg PO DAILY Trelegy Ellipta 200-62.5-25 mcg blister with device 1 inh INHALATION DAILY gabapentin 400 mg capsule 400 mg PO BID loperamide [Imodium A-D] 2 mg Tablet 2 mg PO Q6H PRN (Reason: Diarrhea) oxycodone-acetaminophen 10-325 mg tablet 1 tab PO Q6H PRN (Reason: Pain) protein supplement Liquid See Rx Instructions .ROUTE .COMPLEX Rx Instructions: Give 30 ml by mouth once daily for wound healing. Changed pantoprazole 40 mg tablet,delayed release (DR/EC) 40 mg PO BIDWMEAL Qty: 60 0RF potassium chloride 10 mEq tablet,ER particles/crystals 20 meq PO DAILY Qty: 10 0RF Held Eliquis 5 mg tablet 5 mg PO BID Hold Instructions: Resume on 03/28/25. Discontinued furosemide 40 mg tablet 40 mg PO .BID Discharge Order = DC NOW: Discharge Order (Routine); Ordered 03/07/25 Ordered By: Sahil Ellington Referrals: [facility] [Outside] Brandon Jordan FNP [Referring] - 03/12/25 1:30 pm Sarah Pantoja NP [Nurse Practitioner, Cardiology] - 2 weeks Discharge Diet: Advance as tolerated and GI Soft Discharge Activity: Resume usual activity and Increase activity as tolerated Patient Instructions: Atrial Fibrillation, Heart Failure (DC), Coronary Artery Disease (DC), Chronic Kidney Disease (DC), Opioid Safety, Patient Portal & Diana Instructions Activity Restrictions/Additional Instructions: Restrict fluid intake to less than 1500 cc, salt intake to less than 2 g daily. Advised to check his weight daily at home. Is advised that weight today would be the dry weight and if body weight increases by around 5 pounds, patient is to take an extra dose of 1 mg Bumex daily till body weight comes down to weight today. If not able to come down to dry body weight in 1 week, then is to call cardiology office for further recommendations. Patient was counseled in detail to take medications regularly as prescribed. Recheck hemoglobin in 1 week. For now continue taking aspirin and Plavix as before. Do not take Eliquis. You can start taking Eliquis from 03/28/2025. Once you start taking Eliquis please do not take aspirin. Recheck hemoglobin 1 week after starting Eliquis. Robertson catheter must be exchanged every month till removed by the outpatient urologist. Discharge Attestations Time Spent in Discharge Care*: greater than 30 min Specific Discharge Activities: educating patient, discussing with pcp/other providers, discussing with continuous pillowcase cutter/social workers/dc planners, documenting/other paperwork and evaluating patient/reviewing data Status at Discharge: Cognitive status at discharge: cognitively intact, Behavioral status at discharge: cooperative, Functional status at discharge: bed bound, Overall status at discharge: patient is back to baseline Quality Metrics Clinical Quality Measures [ No reported AMI, CVA or VTE this stay] Coding Level of Care Code 25263 Total time (in minutes) for Discharge: 60 Diagnoses Coronary artery disease I25.10 Atrial fibrillation I48.91 Acute on chronic HFrEF (heart failure with reduced ejection fraction) I50.23 Anemia D64.9 Positive occult stool blood test R19.5 Elevated troponin R79.89
[2025-03-07 10:51] LABS: LAB Peripheral Smear Sent for Review
[2025-03-07 11:01] LABS: Hematocrit 32.1 % (37-53); Hemoglobin 9.30 g/dL (11.27-16.99)
--- NOTE | 2025-03-07 12:31 | PC.NURSE ---
Patient returned to SNF via ground ambulance. Report called to Julianna at [facility]. IV removed prior to discharge. Chronic montejo catheter remains in place.
== END 2025-03-07 12:00 | disposition skilled nursing facility (03) | DRG 811 ==
LOC: ER 21:35 → ER IP 23:25 → CSU 03-05 12:34
PROVIDERS: Admitting Provider Student in an Organized Health Care Education/Training Program; Emergency Provider Emergency Medicine; PCP Student in an Organized Health Care Education/Training Program; Visit Provider Student in an Organized Health Care Education/Training Program
DX: D50.9 Iron deficiency anemia, unspecified (principal); I21.4 Non-ST elevation (NSTEMI) myocardial infarction; I50.23 Acute on chronic systolic (congestive) heart failure; J96.11 Chronic respiratory failure with hypoxia; Z68.41 Body mass index [BMI] 40.0-44.9, adult; I25.10 Atherosclerotic heart disease of native coronary artery without angina pectoris; I48.91 Unspecified atrial fibrillation; R19.5 Other fecal abnormalities; R79.89 Other specified abnormal findings of blood chemistry; Z96.0 Presence of urogenital implants; R31.9 Hematuria, unspecified; I35.0 Nonrheumatic aortic (valve) stenosis; J44.9 Chronic obstructive pulmonary disease, unspecified; E66.01 Morbid (severe) obesity due to excess calories; Z66 Do not resuscitate; I08.3 Combined rheumatic disorders of mitral, aortic and tricuspid valves; Z79.85 Long-term (current) use of injectable non-insulin antidiabetic drugs; Z79.891 Long term (current) use of opiate analgesic; Z79.51 Long term (current) use of inhaled steroids; Z79.82 Long term (current) use of aspirin; Z79.02 Long term (current) use of antithrombotics/antiplatelets; Z95.5 Presence of coronary angioplasty implant and graft; Z86.718 Personal history of other venous thrombosis and embolism
CPT/HCPCS: 36415; 36430; 51702; 71045; 80048; 80053; 80503; 81001; 82607; 82746; 83880; 84484; 85014; 85018; 85025; 86850; 86900; 86920; 87040; 93005; 93308; 94640; 96376; 99285; J1938; J2470; J3490; J7626; J9999; P9016

== ENCOUNTER → 2025-03-18 08:45 | Outpatient (BNVA) | payer MEDICARE, MEDICAID, SELFPAY | PROVIDERS: PCP Student in an Organized Health Care Education/Training Program; Visit Provider Orthopaedic Surgery | DX: Z98.890 Other specified postprocedural states (principal); Z48.89 Encounter for other specified surgical aftercare | CPT/HCPCS: 73110; 99024 ==

== ENCOUNTER 2025-04-05 18:33 | Inpatient (IN) | payer MEDICARE, MEDICAID, SELFPAY ==
--- OUTSIDE RECORDS SUMMARY | 2003-08-27 19:00 | XMS_ITS | Continuity of Care Document ---
Author Name [facility] Address [address] [place] [address] Organization [facility] Care Team Providers Care Roofing Foreman Name Role Phone [facility] Unavailable Unavailable Problems Problem Status Onset Date [...]
--- OUTSIDE RECORDS SUMMARY | 2025-04-01 10:00 | XMS_ITS | Encounter Summary ---
Author Organization [employer] [facility] Address [address] [place] [address] Care Team Providers Care Outside Plant Cable Engineer Name Role Phone Unavailable Primary Care Provider Unavailabl e Reason for Referral * Echocardiography (Routine) - Open Specialty Diagnoses / Procedures Referred By Contac t Referred To Contact Radiology Diagnoses Ischemic dilated cardiomyopathy (CMS/HCC) Procedures ECHO COMPLETE - CONTRAST AND STRAIN IF INDICATED ECHO COMPLETE - CONTRAST AND STRAIN IF INDICATED CA ECHO TTHRC R-T 2D W/WOM-MODE COMPL SPEC&COLR D CA MYOCRD STRAIN IMG SPECKLE TRCK ASSMT MYOCRD [facility] CA TTE W OR WO FOL WCON,DOPPLER Jazmyn Valiente FNP [address] [place] [address] Phone: tel: fax: [facility] [address] [place] [address] Phone: tel: fax: Referral ID Status Reason Start Date Expiration Date V isits Requested Visits Authorized [id number] Open SGF CTS to Schedule 04/01/2025 05/02/2026 1 1 * Cardiology Testing (Routine) - Open Specialty Diagnoses / Procedures Referred By Contac t Referred To Contact Diagnoses Ischemic dilated cardiomyopathy (CMS/HCC) Procedures WEARABLE CARDIOVERTER DEFIBRILLATOR Jazmyn Valiente FNP [address] [place] [address] Phone: tel: fax: [facility] Central Pre-Registration [place] CALL TO MAKE APPOINTMENT ONLY [address] [place] [address] Phone: tel: fax: Referral ID Status Reason Start Date Expiration Date Visits Re quested Visits Authorized [id number] Open 04/01/2025 05/02/2026 1 1 * Eval and Treat (Urgent) - Closed Specialty Diagnoses / Procedures Referred By Marium t Referred To Contact Gastroenterology Diagnoses Other iron deficiency anemia Procedures CA OFFICE/OUTPATIENT ESTABLISHED MOD MDM 30 MIN CA OFFICE/OUTPATIENT NEW MODERATE MDM 45 MINUTES review Jazmyn Valiente FNP [address] [place] [address] Phone: tel: fax: Tiago Ryan MD [address] [facility] [address] [place] [address] Phone: tel: fax: Referral ID Status Reason Start Date Expiration Date Visits Requested Visits Authorized [id number] Closed Performing Department to Schedule 04/01/2025 04/01/2026 1 1 Reason for Visit * Reason Comments Follow Up 2-3W Encounter Details Date Type Department Care Team (Late st Contact Info) Description 04/01/2025 10:00 AM CDT Office Visit [facility] [address] [place] [address] Dane Sierra MD [address] [place] [address] Jazmyn Valiente FNP [address] [place] [phone] elevation myocardial infarction (STEMI) (Primary Dx); Benign hypertension; Paroxysmal atrial fibrillation with rapid ventricular response (CMS/HCC); Mixed hyperlipidemia; Ischemic dilated cardiomyopathy (CMS/HCC); Other iron deficiency anemia Social History Tobacco Use Types Packs/Day Years Used Date Smoking Tobacco: Former Cigarettes 0 09/19/2023 - 03/21/1964 Passive Smoke Exposure: Current Smokeless Tobacco: Never Alcohol Use Standard Drinks/Week Comments No 0 (1 standard drink = 0.6 oz pur e alcohol) Sex and Gender Information Value Date Recorded Sex Assigned at Not on file Legal Sex Male 12:11 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 Gender Identity Not on file Sexual Orientation Not on file documented as of this encounter Last Filed Vital Signs Vital Sign Reading Time Taken Comments Blood Pressure 102/54 04/01/2025 9:46 AM CDT Pulse 83 04/01/2025 9:46 AM CDT Temperature - - Respiratory Rate - - Oxygen Saturation 96% 04/01/2025 9:46 AM CDT Inhaled Oxygen Concentration - - Weight 137.6 kg (303 lb 6.4 oz) 04/01/2025 9:46 AM CDT Height 182.9 cm (6') 04/01/2025 9:46 AM CDT Body Mass Index 41.15 04/01/2025 9:46 AM CDT documented in this encounter Progress Notes * Jazmyn Valiente FNP - 04/01/2025 10:00 AM CDT Cardiology Progress Note Primary Punch Box Tender: Dr. Sierra HPI: Edson Jaffe is a 74 year old male who was transferred from outside hospital and admitted to [facility] on 02/13/2025 for further evaluation and management of hematuria along with chest pains and suspected STEMI. Patient originally declined [facility], but later was agreeable. Upon arrival to [facility], patient was STEMI activated after initial EKG obtained. The patient had been having hematuria prior to transfer and heparin gtt was discontinued after notes document 300mL blood loss from montejo and 1 unit PRBC administered. Patient arrived to hospital with a montejo that had been in place for overa month. A new montejo was placed on arrival to outside facility. Urine culture was significant at outside facility for providencia stuartii and he had been de escalated to cefepime.Urology was consulted per hospitalist service on arrival. Patient admitted to hospitalist service then was immediately taken to bobcat driver/labor for C with findings of Ost cx to Prox Cx lesion 95% stenosed and a Drug- eluting stent was placed to circumflex. Patient was loaded with ASA, plavix, and placed on argatroban gtt. Transferred to ICU following procedure.Significant history of prior stent. Patient has signed DNR paperwork in outside chart. Now s/p left heart cath and PCI to the circumflex with NINO x 1. Noted to have significant thrombus burden in the distal branch of the OM territory with significantresidual burden despite aspiration thrombectomy Interval History: HFU today. He is at [facility] in [place]. There is a physician at the facility. He is on oxygen nasal cannula at night. The facility is saying its only at night but he was at 86%when he showed up at the clinic today. Improved after placing him on oxygen. He is reporting his SOB has been the same since he has been discharged. No blood in the stool. He had an upper endoscopy previously that had old blood in the stomach but there was no source of bleeding. He had colonoscopy in 2013 that revealed internal hemorrhoids. He does report intermittent black stools but is on iron.He denies CP, palpitations. Weight has decreased since admission. He is pale. PHYSICAL EXAM: BP 102/54 (BP Location: Right arm, Patient Position (BP): Sitting, BP Cuff Size: Adult) Pulse 83 Ht 6' (1.829 m) Wt (!) 137.6 kg (303 lb 6.4 oz) SpO2 96% BMI 41.15 kg/m?? Gen: No distress. Morbidly obese. Weak and difficult to ambulate Neuro: Awake, alert, Cv: RRR. No murmur, no gallop. Pulm: Coarse wheezing bilaterally Abd: Soft, centrally obese Skin: Warm. No rash Ext: No edema. No cyanosis Data Review: Lab Results Component Value Date/Time CHOLTOT 90 02/17/2025 06:19 AM HDL 27 (L) 02/17/2025 06:19 AM LDLCALC 39 02/17/2025 06:19 AM TRIGLYCERIDE 118 02/17/2025 06:19 AM Lab Results Component Value Date/Time NA 140 03/27/2025 04:40 AM K 4.2 03/27/2025 04:40 AM CL 101 03/27/2025 04:40 AM CO2 32 (H) 03/27/2025 04:40 AM CA 8.1 (L) 03/27/2025 04:40 AM BUN 10 03/27/2025 04:40 AM CREAT 0.67 03/27/2025 04:40 AM GLUCOSE 92 03/27/2025 04:40 AM ANIONGAP 7 (L) 03/27/2025 04:40 AM BCRATIO SEE NOTE: 08/29/2023 02:34 PM Lab Results Component Value Date/Time CREAT 0.67 03/27/2025 04:40 AM [id number] 144 03/04/2018 07:00 AM GFR >60 03/27/2025 04:40 AM Assessment: ICD-10-CM ICD-9-CM 1. History of ST elevation myocardial infarction (STEMI) I25.2 412 2. Benign hypertension I10 401.1 3. Paroxysmal atrial fibrillation with rapid ventricular response (CMS/HCC) I48.0 427.31 4. Mixed hyperlipidemia E78.2 272.2 5. Ischemic dilated cardiomyopathy (CMS/HCC) I25.5 414.8 I42.0 6. Other iron deficiency anemia D50.8 280.8 Plan: 1. History of STEMI Had PCI to the circumflex HFU today Continue BB, and -statin, stop ASA 81 mg daily Antianginals include BB Continue DAPT for a full year post PCI with ASA indefinitely On aspirin and Plavix and Lipitor 80 and on metoprolol 2. HTN Well-controlled 3. PAF Anticoagulation was in hold during hospitalization due to hematuria and anemia Had been on Eliquis at home due to DVT History of DVT and being so limited and almost bedbound Stop Eliquis at this time, CBC ordered, advised on CVA risk GI referral placed, can be a future candidate for Watchman [id number] Moderate-High Risk 4 Total Score 1 Hypertension Hx 1 Heart Failure Hx 1 Vascular Disease Hx 1 Age 4. HLD Continue -statin LDL 39 5. Ischemic cardiomyopathy Echocardiogram 03/23/25 EF 31%, reduced from echocardiogram 02/18/25 30-35% Continue GDMT Repeat Echocardiogram ordered for 3 months, ordered Na and fluid restrictions Lifevest ordered Start Jardiance 10 mg today, BMP in 1 week Daily weights recommended Closely monitor BP at facility Heart Failure: Reduced Ejection Fraction (HFrEF) and Improved Ejection Fraction (HFimpEF) Guideline-directed medications (SOR): Current: Notes/plan: Evidence-based beta-vaishnavi (1) metoprolol succinate (TOPROL XL) 25 mg Extended Release 24 hour tablet [[id number]] ARNi, Acei or ARB (1) No value filed. Hypotensive. Mineralocorticoid Receptor Antagonist (1) spironolactone (ALDACTONE) 50 mg tablet [[id number]] SGLT2i (1) Start today, BMP in 1 week Hydralazine & nitrate (1 in -Americans) No value filed. Diuretics as needed (1) bumetanide (BUMEX) 1 mg tablet [[id number]], furosemide (LASIX) 40 mg tablet [[id number]] Advance care planning & code status Code Status: Prior Date of Last ACP: none 6. Anemia Hgb 7.4 03/26/2025, recheck CBC Stop ASA and Eliquis, risk of CVA discussed, he verbalizes understanding Stat referral to GI Declined colonoscopy Continue iron supplement daily D/t increasing oxygen demands during the day, recommend ER, he declines Spoke with Dr. Antonio about this patient, reviewed plan. Follow up 2 months or prn MARCEL Lagos documented in this encounter Plan of Treatment Upcoming Encounters Date Type Department Care Team (Late st Contact Info) Description 07/09/2025 10:20 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 Office Visit [facility] [address] [place] [phone] Saritha Horton FNP [address] [place] [phone] 10/24/2025 10:45 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 Office Visit [facility] [address] [facility] [address] [place] [phone] Dane Sierra MD [address] [facility] [address] [place] [phone] Scheduled Orders Name Type Priority Associated Diagnoses Orde r Schedule OCCULT BLOOD IMMUNOASSAY, COLORECTAL SCREEN Lab Routine Other iron deficiency anemia Expected: 05/02/2025, Expires: 04/01/2026 CBC WITHOUT DIFFERENTIAL Lab Routine Other iron deficiency anemia Expected: 04/01/2025 (Approximate), Expires: 04/15/2025 WEARABLE CARDIOVERTER DEFIBRILLATOR Cardiac Services Routine Ischemic dilated cardiomyopathy (CMS/HCC) Ordered: 04/01/2025 ECHO COMPLETE - CONTRAST AND STRAIN IF INDICATED Echocardiogram Routine Ischemic dilated cardiomyopathy (CMS/HCC) Expected: 05/21/2025, Expires: 10/02/2026 BASIC METABOLIC PANEL Lab Routine Ischemic dilated cardiomyopathy (CMS/HCC) Expected: 04/08/2025 (Approximate), Expires: 04/22/2025 Scheduled Referrals Name Type Priority Associated Diagnoses Order Schedule AMB REFERRAL TO GASTROENTEROLOGY Outpatient Referral Routine Other iron deficiency anemia Ordered: 04/01/2025 documented as of this encounter Visit Diagnoses Diagnosis History of ST elevation myocardial infarction (STEMI)- Primary Old myocardial infarction Benign hypertension Essential hypertension, benign Paroxysmal atrial fibrillation with rapid ventricular response (CMS/HCC) Mixed hyperlipidemia Ischemic dilated cardiomyopathy (CMS/HCC) Other specified forms of chronic ischemic heart disease Other iron deficiency anemia documented in this encounter
[2025-04-05] VITALS (16 sets, daily range): BP systolic 104–137; BP diastolic 63–88; PULSE 73–83; RESP 15–29; TEMP 36.4–37.2; O2SAT 94–100; BMI 39.3
--- OUTSIDE RECORDS SUMMARY | 2025-04-05 18:43 | XMS_ITS | Encounter Summary ---
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 INR 1.9 [facility] Comment: Expected Values for INR: DVT/PE Goal INR 2.5; range 2.0 - 3.0 Valve Replacement Tissue Goal INR 2.5; range 2.0 - 3.0 Mechanical Goal INR 3.0; range 2.5 - 3.5 POST-NV Goal INR 2.5; range 2.0 - 3.0 or Goal 3.0; range 2.5 - 3.5 Atrial Fibrillation Goal INR 2.5; range 2.0 - 3.0 Ischemic Stroke Goal INR 2.5; range 2.0 - 3.0 For additional information see Guidelines for Anticoagulation available from the pharmacy [facility] [phone] Blood specimen (specimen) 06/09/2008 4:58 AM CDT 06/09/2008 5:24 AM CDT us Moiz Barros MD HEMATOLOGY ORDERABLES Fi nal Result INTERFACE SYSTEM Refer to clinic/hospital department [facility] CLIA# [id number] [address] [place] [address] * (ABNORMAL) PROTIME-INR (06/08/2008 4:50 AM CDT) INR 1.5 [facility] Comment: Expected Values for INR: DVT/PE Goal INR 2.5; range 2.0 - 3.0 Valve Replacement Tissue Goal INR 2.5; range 2.0 - 3.0 Mechanical Goal INR 3.0; range 2.5 - 3.5 POST-NV Goal INR 2.5; range 2.0 - 3.0 or Goal 3.0; range 2.5 - 3.5 Atrial Fibrillation Goal INR 2.5; range 2.0 - 3.0 Ischemic Stroke Goal INR 2.5; range 2.0 - 3.0 For additional information see Guidelines for Anticoagulation available from the pharmacy [facility] [phone] PROTIME 20.0(H) 12.8 - 15.8 Secs [facility] Comment:As of 2007 not e change in normal range. Blood specimen (specimen) 06/08/2008 4:50 AM CDT 06/08/2008 5:18 AM CDT us Moiz Barros MD HEMATOLOGY ORDERABLES Fi nal Result INTERFACE SYSTEM Refer to clinic/hospital department [facility] CLIA# [id number] [address] [place] [address] * (ABNORMAL) CBC WITH DIFFERENTIAL (06/07/2008 5:35 AM CDT) NEUTROPHIL ABSOLUTE 10.9(H) 2.0 - 8.0 K/ul [facility] HEMATOCRIT 40.7(L) 41.0 - 53.0 % [facility] PLATELETS 188 140 - 440 K/ul [facility] EOSINOPHIL ABSOLUTE 0.1 0.0 - 0.7 K/ul [facility] EOSINOPHILS 0.7 0.0 - 7.0 % [facility] RBC 4.15(L) 4.60 - 6.20 Mil/ul [facility] MCHC 32.9 30.0 - 35.0 g/dL [facility] LYMPHOCYTE ABSOLUTE 1.7 1.2 - 4.0 K/ul [facility] LYMPHOCYTES 11.5(L) 24.0 - 44.0 % [facility] MCV 98.1 84.0 - 103.0 Fl [facility] BASOPHILS 0.2 0.0 - 1.0 % [facility] MPV 10.4 8.9 - 12.8 Fl [facility] BASOPHILS ABSOLUTE 0.0 0.0 - 0.2 K/ul [facility] HEMOGLOBIN 13.4(L) 14.0 - 18.0 g/dL [facility] RDW 14.0 11.0 - 14.5 % [facility] MONOCYTES 11.5(H) 2.0 - 10.0 % [facility] MONOCYTE ABSOLUTE 1.7(H) 0.1 - 0.6 K/ul [facility] WBC 14.4(H) 4.8 - 10.8 K/ul [facility] MCH 32.3 27.0 - 34.0 pg [facility] NEUTROPHILS 76.1(H) 42.2 - 75.2 % [facility] Blood specimen (specimen) 06/07/2008 5:35 AM CDT 06/07/2008 5:47 AM CDT us Moiz Barros MD HEMATOLOGY ORDERABLES Fi nal Result INTERFACE SYSTEM Refer to clinic/hospital department [facility]# [id number] [address] [place] [address] * (ABNORMAL) PROTIME-INR (06/07/2008 5:35 AM CDT) PROTIME 18.6(H) 12.8 - 15.8 Secs [facility] Comment:As of 2007 not e change in normal range. INR 1.4 [facility] Comment: Expected Values for INR: DVT/PE Goal INR 2.5; range 2.0 - 3.0 Valve Replacement Tissue Goal INR 2.5; range 2.0 - 3.0 Mechanical Goal INR 3.0; range 2.5 - 3.5 POST-NV Goal INR 2.5; range 2.0 - 3.0 or Goal 3.0; range 2.5 - 3.5 Atrial Fibrillation Goal INR 2.5; range 2.0 - 3.0 Ischemic Stroke Goal INR 2.5; range 2.0 - 3.0 For additional information see Guidelines for Anticoagulation available from the pharmacy [facility] [phone] Blood specimen (specimen) 06/07/2008 5:35 AM CDT 06/07/2008 5:47 AM CDT us Yusef Malagon MD HEMATOLOGY ORDERABLES Final Re sult INTERFACE SYSTEM Refer to clinic/hospital department [facility] CLIA# [id number] [address] [place] [address] * (ABNORMAL) PROTIME-INR (06/06/2008 5:32 AM CDT) PROTIME 16.3(H) 12.8 - 15.8 Secs [facility] Comment:As of 2007 not e change in normal range. INR 1.2 [facility] Comment: Expected Values for INR: DVT/PE Goal INR 2.5; range 2.0 - 3.0 Valve Replacement Tissue Goal INR 2.5; range 2.0 - 3.0 Mechanical Goal INR 3.0; range 2.5 - 3.5 POST-NV Goal INR 2.5; range 2.0 - 3.0 or Goal 3.0; range 2.5 - 3.5 Atrial Fibrillation Goal INR 2.5; range 2.0 - 3.0 Ischemic Stroke Goal INR 2.5; range 2.0 - 3.0 For additional information see Guidelines for Anticoagulation available from the pharmacy [facility] [phone] Blood specimen (specimen) 06/06/2008 5:32 AM CDT 06/06/2008 5:54 AM CDT us Yusef Malagon MD HEMATOLOGY ORDERABLES Final Re sult INTERFACE SYSTEM Refer to clinic/hospital department [facility] CLIA# [id number] [address] [place] [address] * (ABNORMAL) CBC WITH DIFFERENTIAL (06/06/2008 5:32 AM CDT) BASOPHILS 0.3 0.0 - 1.0 % [facility] BASOPHILS ABSOLUTE 0.0 0.0 - 0.2 K/ul [facility] HEMATOCRIT 40.4(L) 41.0 - 53.0 % [facility] PLATELETS 217 140 - 440 K/ul [facility] MONOCYTES 11.3(H) 2.0 - 10.0 % [facility] MONOCYTE ABSOLUTE 1.4(H) 0.1 - 0.6 K/ul [facility] RBC 4.12(L) 4.60 - 6.20 Mil/ul [facility] MCHC 32.7 30.0 - 35.0 g/dL [facility] NEUTROPHIL ABSOLUTE 9.3(H) 2.0 - 8.0 K/ul [facility] MCV 98.1 84.0 - 103.0 Fl [facility] MPV 10.9 8.9 - 12.8 Fl [facility] EOSINOPHIL ABSOLUTE 0.1 0.0 - 0.7 K/ul [facility] EOSINOPHILS 0.6 0.0 - 7.0 % [facility] HEMOGLOBIN 13.2(L) 14.0 - 18.0 g/dL [facility] RDW 13.8 11.0 - 14.5 % [facility] LYMPHOCYTE ABSOLUTE 1.7 1.2 - 4.0 K/ul [facility] LYMPHOCYTES 13.7(L) 24.0 - 44.0 % [facility] WBC 12.5(H) 4.8 - 10.8 K/ul [facility] NEUTROPHILS 74.1 42.2 - 75.2 % [facility] MCH 32.0 27.0 - 34.0 pg [facility] Blood specimen (specimen) 06/06/2008 5:32 AM CDT 06/06/2008 5:56 AM CDT us Yusef Malagon MD HEMATOLOGY ORDERABLES Final Re sult Performing Organization Address [facility] Phone Number INTERFACE SYSTEM Refer to clinic/hospital department [facility] CLIA# [id number] [address] [place] [address] * (ABNORMAL) BASIC METABOLIC PANEL (06/06/2008 5:32 AM CDT) [facility] SODIUM 137 136 - 145 mEq/L [facility] ANION GAP 9 9 - 20 mEq/L [facility] BUN 13 9 - 20 mg/dL [facility] CO2 26 22 - 32 mmol/l [facility] OSMOLALITY, CALCULATED 283 275 - 295 mOsm/Kg [facility] POTASSIUM 3.7 3.5 - 5.0 mEq/L [facility] CREATININE 0.8 0.7 - 1.5 mg/dL [facility] CALCIUM 8.9 8.4 - 10.5 mg/dL [facility] GLUCOSE 122(H) 70 - 110 mg/dL [facility] CHLORIDE 106 95 - 110 mEq/L [facility] Blood specimen (specimen) 06/06/2008 5:32 AM CDT 06/06/2008 5:56 AM CDT us Yusef Malagon MD CHEMISTRY ORDERABLES Final Res ult Performing Organization Address [facility] de Phone Number INTERFACE SYSTEM Refer to [facility] CLIA# [id number] [address] [place] [address] * (ABNORMAL) POC GLUCOSE (06/05/2008 3:01 PM CDT) GLUCOSE POC 115(H) 60 - 100 mg/dL [facility] Venous blood specimen (specimen) 06/05/2008 3:01 PM CDT 06/05/2008 4:38 PM CDT us Yusef Malagon MD POINT OF CARE TESTING Final Re sult INTERFACE SYSTEM Refer to clinic/hospital department [facility] CLIA# [id number] [address] [place] [address] * XR KNEE 1 OR 2 VW [...] GLUCOSE POC 94 60 - 100 mg/dL [facility] Venous blood specimen (specimen) 06/05/2008 11:08 AM CDT 06/06/2008 7:27 AM CDT us Yusef Malagon MD POINT OF CARE TESTING Final Re sult Performing Organization Address [facility] Co de Phone Number INTERFACE SYSTEM Refer to clinic/hospital department [facility] CLIA# [id number] [address] [place] [address] * TYPE AND CROSSMATCH (06/05/2008 6:35 AM CDT) Pathologist [facility] BLOOD BANK PRODUCT INTERFACE SYSTEM Blood specimen (specimen) 06/05/2008 6:35 AM CDT 06/05/2008 6:35 AM CDT us Yusef Malagon MD BLOOD BANK ORDERABLES Final Re sult Performing Organization Address [facility] de Phone Number INTERFACE SYSTEM Refer to clinic/hospital department documented in this encounter Visit Diagnoses Not on filedocumented in this encounter Care Teams Sports Instructor Relationship Specialty Start Date End Date Roshan Jimenez DO NO ADDRESS ON FILE PCP - General 03/26/03 documented as of this encounter
--- OUTSIDE RECORDS SUMMARY | 2025-04-05 18:43 | XMS_ITS | Encounter Summary ---
Author Organization [facility] Address [address] [place] [address] Care Team Providers Care Clinical Field Specialist Name Role Phone Roshan Jimenez DO Primary Care Provider Unav ailable Encounter Details Date Type Department Care Team (Latest Contact Info) Description 07/13/2005 Outpatient [facility] [phone] [place] [phone] Roshan Jimenez DO NO ADDRESS ON FILE ASTHMA UNSPECIFIED (Primary Dx); CHRONIC AIRWAY OBSTRUCTION NEC (CMS/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
--- OUTSIDE RECORDS SUMMARY | 2025-04-05 18:43 | XMS_ITS | Encounter Summary ---
Author Organization [facility] Address [address] [place] [address] Care Team Providers Care Supply Room Clerk Name Role Phone Roshan Jimenez DO Primary Care Provider Unav ailable Encounter Details Date Type Department Care Team (Latest Contact Info) Description 12/23/1999 Outpatient [facility] [address] [place] [address] Roshan Jimenez DO NO ADDRESS ON FILE Unspecified essential hypertension (Primary Dx); Allergic rhinitis, cause unspecified; Chronic airway obstruction, not elsewhere classified (CMS/HCC); Obesity, unspecified Social History Tobacco Use Types Packs/Day Years Used Date Smoking Tobacco: Never Assessed Sex and Gender Information Value Date Recorded Sex Assigned at Not on file Legal Sex Male 4:59 AM 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
--- OUTSIDE RECORDS SUMMARY | 2025-04-05 18:43 | XMS_ITS | Encounter Summary ---
Author Organization [facility] Address [address] [place] [address] Care Team Providers Care Assistant Buyer Name Role Phone Roshan Jimenez DO Primary Care Provider Unav ailable Encounter Details Date Type Department Care Team (Latest Contact Info) Description 04/18/2006 Outpatient [facility] [address] [place] [address] Roshan Jimenez DO NO ADDRESS ON FILE Depressive Disorder, not Elsewhere Classified (Primary Dx); Anxiety State, Unspecified; Unspecified Essential Hypertension Social History Tobacco Use Types Packs/Day Years Used Date Smoking Tobacco: Never Assessed Sex and Gender Information Value Date Recorded Sex Assigned at Not on file 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
--- OUTSIDE RECORDS SUMMARY | 2025-04-05 18:43 | XMS_ITS | Encounter Summary ---
Author Organization [facility] Address [address] [place] [address] Care Team Providers Care Film Composer Name Role Phone Roshan Jimenez DO Primary Care Provider Unav ailable Encounter Details Date Type Department Care Team (Latest Contact Info) Description 11/27/2002 Outpatient Historical [facility] Podiatry-Stevo [facility] [place] [address] [place] [address] Noé Rosa, DPM [address] [place] [address] Onychia of toe (Primary Dx); INGROWING NAIL Social History Tobacco Use Types Packs/Day Years Used Date Smoking Tobacco: Never Assessed Sex and Gender Information Value Date Recorded Sex Assigned at Not on file 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
--- OUTSIDE RECORDS SUMMARY | 2025-04-05 18:43 | XMS_ITS | Encounter Summary ---
Author Organization [facility] Address [address] [place] [address] Care Team Providers Care Courtroom Clerk Name Role Phone Roshan Jimenez DO Primary Care Provider Unav ailable Encounter Details Date Type Department Care Team (Latest Contact Info) Description 11/01/2006 Outpatient Historical [facility] [address] [place] [address] John Black MD NO ADDRESS ON FILE Pre-Operative Cardiovascular Examination (Primary Dx) Social History Tobacco Use Types Packs/Day Years Used Date Smoking Tobacco: Never Assessed Sex and Gender Information Value Date Recorded Sex Assigned at Not on file Legal Sex Male 4:59 AM INFORMATION AND DATA ARCHITECT ANALYST Gender Identity Not on file Sexual Orientation Not on file documented as of this encounter Plan of Treatment Not on file documented as of this encounter Procedures Procedure Name Priority Date/Time Associated Diagnosis Comments COMPREHENSIVE METABOLIC PANEL Routine 11/01/2006 10:35 AM INFORMATION AND DATA ARCHITECT ANALYST XR CHEST PA OR AP 1 VW Routine 7 10:09 AM INFORMATION AND DATA ARCHITECT ANALYST documented in this encounter Results * (ABNORMAL) COMPREHENSIVE METABOLIC PANEL (11/01/2006 10:35 AM INFORMATION AND DATA ARCHITECT ANALYST) GLUCOSE 99 70 - 110 mg/dL [...] mOsm/Kg INTERFACE SYSTEM 11/01/2006 10:3 5 AM INFORMATION AND DATA ARCHITECT ANALYST John Black MD CHEMISTRY ORDERABLES Edited INTERFACE SYSTEM Refer to clinic/hospital department * XR CHEST PA OR AP (11/01/2006 10:09 AM INFORMATION AND DATA ARCHITECT ANALYST) Anatomical Region Laterality Modality Chest Other 11/01/2006 10:0 9 AM INFORMATION AND DATA ARCHITECT ANALYST Narrative 11/01/2006 10:09 AM INFORMATION AND DATA ARCHITECT ANALYST PA CHEST: 11/01/2006Chronic appearing accentuated bronchovascular [...] Primary documented in this encounter Care Teams Courtroom Clerk Relationship Specialty Start Date End Date Roshan Jimenez DO NO ADDRESS ON FILE PCP - General 03/26/03 documented as of this encounter
--- OUTSIDE RECORDS SUMMARY | 2025-04-05 18:43 | XMS_ITS | Encounter Summary ---
Author Organization [facility] Address [address] [place] [address] Care Team Providers Care Machine Bobbin Winder Name Role Phone Roshan Jimenez DO Primary Care Provider Unav ailable Encounter Details Date Type Department Care Team (Latest Contact Info) Description 06/23/1999 Outpatient [facility] [address] [place] [address] Roshan Jimenez DO NO ADDRESS ON FILE Unspecified essential hypertension (Primary Dx); Reflux esophagitis; Obesity, unspecified; Chronic airway obstruction, not elsewhere classified (CMS/HCC) Social History Tobacco Use Types Packs/Day Years Used Date Smoking Tobacco: Never Assessed Sex and Gender Information Value Date Recorded Sex Assigned at Not on file 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
--- OUTSIDE RECORDS SUMMARY | 2025-04-05 18:43 | XMS_ITS | Encounter Summary ---
Author Organization [facility] Address [address] [place] [address] Care Team Providers Care Raftsman Name Role Phone Roshan Jimenez DO Primary Care Provider Unav ailable Encounter Details Date Type Department Care Team (Latest Contact Info) Description 02/04/2003 Outpatient [facility] [address] [place] [address] Roshan Jimenez DO NO ADDRESS ON FILE HYPERTENSION NOS (Primary Dx); OBESITY NOS; CHRONIC AIRWAY OBSTRUCTION NEC (CMS/[facility]); OSTEOARTHROS NOS-UNSPEC Social History Tobacco Use Types Packs/Day Years Used Date Smoking Tobacco: Never Assessed Sex and Gender Information Value Date Recorded Sex Assigned at Not on file 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 Gender Identity Not on file Sexual Orientation Not on file documented as of this encounter Plan of Treatment Not on file documented as of this encounter Visit Diagnoses Diagnosis Unspecified essential hypertension- Primary Obesity, unspecified Chronic airway obstruction, not elsewhere classified (CMS/HCC) Chronic airway obstruction, not elsewhere classified Osteoarthrosis, unspecified whether generalized or localized, unspecified site documented in this encounter Care Teams Raftsman Relationship Specialty Start Date End Date Roshan Jimenez DO NO ADDRESS ON FILE PCP - General 03/26/03 documented as of this encounter
--- OUTSIDE RECORDS SUMMARY | 2025-04-05 18:43 | XMS_ITS | Encounter Summary ---
Author Organization [facility] Address [address] [place] [address] Care Team Providers Care Detention Attendant Name Role Phone Roshan Jimenez DO Primary Care Provider Unav ailable Encounter Details Date Type Department Care Team (Latest Contact Info) Description 01/22/1999 Outpatient Historical [facility] Podiatry-Stevo Bal [place] [address] [place] [address] Noé Rosa, DPM [address] [place] [address] Ingrowing nail (Primary Dx) Social History Tobacco Use Types Packs/Day Years Used Date Smoking Tobacco: Never Assessed Sex and Gender Information Value Date Recorded Sex Assigned at Not on file 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
--- OUTSIDE RECORDS SUMMARY | 2025-04-05 18:43 | XMS_ITS | Encounter Summary ---
Author Organization [facility] Address [address] [place] [address] Care Team Providers Care Counting Machine Operator Name Role Phone Roshan Jimenez DO Primary Care Provider Unav ailable Encounter Details Date Type Department Care Team (Latest Contact Info) Description 12/23/1998 Outpatient Historical [facility] Podiatry-Stevo Bal [place] [address] [place] [address] Noé Rosa, DPM [address] [place] [address] Ingrowing nail (Primary Dx); Dermatophytosis of nail Social History Tobacco Use Types Packs/Day Years Used Date Smoking Tobacco: Never Assessed Sex and Gender Information Value Date Recorded Sex Assigned at Not on file Legal Sex Male 4:59 AM 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
--- OUTSIDE RECORDS SUMMARY | 2025-04-05 18:43 | XMS_ITS | Encounter Summary ---
Author Organization [facility] Address [address] [place] [address] Care Team Providers Care Carbon Capture Power Plant Engineer Name Role Phone Roshan Jimenez DO Primary Care Provider Unav ailable Encounter Details Date Type Department Care Team (Latest Contact Info) Description 04/18/2005 Outpatient [facility] [address] [place] [address] Roshan Jimenez DO NO ADDRESS ON FILE MORBID OBESITY ([facility]) (Primary Dx); SLEEP APNEA NOS; EDEMA; ASTHMA UNSPECIFIED Social History Tobacco Use Types Packs/Day Years Used Date Smoking Tobacco: Never Assessed Sex and Gender Information Value Date Recorded Sex Assigned at Not on file Legal Sex Male 4:59 AM FIELD REPRESENTATIVES DIRECTOR Gender Identity Not on file Sexual Orientation Not on file documented as of this encounter Plan of Treatment Not on file documented as of this encounter Visit Diagnoses Diagnosis Morbid obesity ([facility])- Primary Morbid obesity Unspecified sleep apnea Edema Unspecified asthma(493.90) Unspecified asthma documented in this encounter Care Teams Carbon Capture Power Plant Engineer Relationship Specialty Start Date End Date Roshan Jimenez DO NO ADDRESS ON FILE PCP - General 03/26/03 documented as of this encounter
--- OUTSIDE RECORDS SUMMARY | 2025-04-05 18:43 | XMS_ITS | Encounter Summary ---
Author Organization [facility] Address [address] [place] [address] Care Team Providers Care Revenue Cycle Manager Name Role Phone Roshan Jimenez DO Primary Care Provider Unav ailable Encounter Details Date Type Department Care Team (Latest Contact Info) Description 04/29/2005 Outpatient Historical [facility] [address] [place] [id number] Merlin Reilly MD NO ADDRESS ON FILE HYPERSOMNIA W SLEEP APNEA NOS (Primary Dx) Social History Tobacco Use Types Packs/Day Years Used Date Smoking Tobacco: Never Assessed Sex and Gender Information Value Date Recorded Sex Assigned at Not on file 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
--- OUTSIDE RECORDS SUMMARY | 2025-04-05 18:43 | XMS_ITS | Encounter Summary ---
Author Organization [facility] Address [address] [place] [address] Care Team Providers Care Process Specialist Name Role Phone Roshan Jimenez DO Primary Care Provider Unav ailable Encounter Details Date Type Department Care Team (Latest Contact Info) Description 06/24/1998 Outpatient Historical [facility] Axel Armstrong NO ADDRESS ON FILE Localized osteoarthrosis not specified whether primary or secondary, lower leg (Primary Dx) Social History Tobacco Use Types Packs/Day Years Used Date Smoking Tobacco: Never Assessed Sex and Gender Information Value Date Recorded Sex Assigned at Not on file 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
--- OUTSIDE RECORDS SUMMARY | 2025-04-05 18:43 | XMS_ITS | Encounter Summary ---
Author Organization [facility] Address [address] [place] [address] Care Team Providers Care Manager Perioperative Name Role Phone Roshan Jimenez DO Primary Care Provider Unav ailable Encounter Details Date Type Department Care Team (Latest Contact Info) Description 04/13/1998 Outpatient [facility] [address] [place] [address] Roshan Jimenez DO NO ADDRESS ON FILE Obstructive chronic bronchitis with exacerbation (CMS/HCC) (Primary Dx); Malaise and fatigue; Tobacco use disorder; Unspecified essential hypertension; Acute bronchitis Social History Tobacco Use Types Packs/Day Years Used Date Smoking Tobacco: Never Assessed Sex and Gender Information Value Date Recorded Sex Assigned at Not on file 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 Male 4:59 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
--- OUTSIDE RECORDS SUMMARY | 2025-04-05 18:43 | XMS_ITS | Encounter Summary ---
Author Organization [facility] Address [address] [place] [address] Care Team Providers Care Rv Servicer Name Role Phone Roshan Jimenez DO Primary Care Provider Unav ailable Encounter Details Date Type Department Care Team (Latest Contact Info) Description 10/20/2006 Outpatient Historical [facility] [address] [place] [address] [place] [phone] Merlin Reilly MD NO ADDRESS ON FILE Obstructive Sleep Apnea (Primary Dx) Social History Tobacco Use Types Packs/Day Years Used Date Smoking Tobacco: Never Assessed Sex and Gender Information Value Date Recorded Sex Assigned at Not on file Legal Sex Male 4:59 AM PARALEGAL SUPERVISOR Gender Identity Not on file Sexual Orientation Not on file documented as of this encounter Plan of Treatment Not on file documented as of this encounter Visit Diagnoses Diagnosis Obstructive sleep apnea- Primary Obstructive sleep apnea (adult) (pediatric) documented in this encounter Care Teams Rv Servicer Relationship Specialty Start Date End Date Roshan Jimenez DO NO ADDRESS ON FILE PCP - General 03/26/03 documented as of this encounter
--- OUTSIDE RECORDS SUMMARY | 2025-04-05 18:43 | XMS_ITS | Encounter Summary ---
Author Organization [facility] Address [address] [place] [address] Care Team Providers Care Driver Engineer Name Role Phone Roshan Jimenez DO Primary Care Provider Unav ailable Encounter Details Date Type Department Care Team (Latest Contact Info) Description 02/20/2007 Outpatient [facility] [address] [place] [address] Roshan Jimenez DO NO ADDRESS ON FILE Chronic Airway Obstruction, not Elsewhere Classified (CMS/HCC) (Primary Dx); Unspecified Asthma; Obesity, Unspecified; Tobacco Use Disorder Social History Tobacco Use Types Packs/Day Years Used Date Smoking Tobacco: Never Assessed Sex and Gender Information Value Date Recorded Sex Assigned at Not on file Legal Sex Male 4:59 AM SOCIOCULTURAL ANTHROPOLOGY PROFESSOR Gender Identity Not on file Sexual Orientation Not on file documented as of this encounter Plan of Treatment Not on file documented as of this encounter Visit Diagnoses Diagnosis Chronic airway obstruction, not elsewhere classified (CMS/HCC)- Primary Chronic airway obstruction, not elsewhere classified Unspecified asthma(493.90) Unspecified asthma Obesity, unspecified Tobacco use disorder documented in this encounter Care Teams Driver Engineer Relationship Specialty Start Date End Date Roshan Jimenez DO NO ADDRESS ON FILE PCP - General 03/26/03 documented as of this encounter
--- OUTSIDE RECORDS SUMMARY | 2025-04-05 18:43 | XMS_ITS | Encounter Summary ---
Author Organization [facility] Address [address] [place] [address] Care Team Providers Care Campus Director Name Role Phone Roshan Jimenez DO Primary Care Provider Unav ailable Encounter Details Date Type Department Care Team (Latest Contact Info) Description 10/24/2006 Outpatient [facility] Throat 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
--- OUTSIDE RECORDS SUMMARY | 2025-04-05 18:43 | XMS_ITS | Encounter Summary ---
Author Organization [employer] [facility] Address [address] [place] [address] Care Team Providers Care Live Truck Technician Name Role Phone Roshan Jimenez DO Primary Care Provider Unav ailable Encounter Details Date Type Department Care Team (Latest Contact Info) Description 12/22/1999 Outpatient Historical [facility] Axel Armstrong NO ADDRESS ON FILE Localized osteoarthrosis not specified whether primary or secondary, lower leg (Primary Dx); Pain in joint, lower leg Social History Tobacco Use Types Packs/Day Years Used Date Smoking Tobacco: Never Assessed Sex and Gender Information Value Date Recorded Sex Assigned at Not on file Legal Sex Male 4:59 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
--- OUTSIDE RECORDS SUMMARY | 2025-04-05 18:43 | XMS_ITS | Encounter Summary ---
Author Organization [facility] Address [address] [place] [address] Care Team Providers Care Metal Miner Name Role Phone Roshan Jimenez DO Primary Care Provider Unav ailable Encounter Details Date Type Department Care Team (Latest Contact Info) Description 12/23/1998 Outpatient Historical [facility] [address] [place] [address] Roshan Jimenez DO NO ADDRESS ON FILE Chronic airway obstruction, not elsewhere classified (CMS/HCC) (Primary Dx); Unspecified essential hypertension; Osteoarthrosis, unspecified whether generalized or localized, unspecified site Social History Tobacco Use Types Packs/Day Years Used Date Smoking Tobacco: Never Assessed Sex and Gender Information Value Date Recorded Sex Assigned at Not on file 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 Sex Male 4:59 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 Gender Identity Not on file Sexual Orientation Not on file documented as of this encounter Plan of Treatment Not on file documented as of this encounter Visit Diagnoses Diagnosis Chronic airway obstruction, not elsewhere classified (CMS/HCC)- Primary Chronic airway obstruction, not elsewhere classified Unspecified essential hypertension Osteoarthrosis, unspecified whether generalized or localized, unspecified site documented in this encounter Care Teams Metal Miner Relationship Specialty Start Date End Date Roshan Jimenez DO NO ADDRESS ON FILE PCP - General 03/26/03 documented as of this encounter
--- OUTSIDE RECORDS SUMMARY | 2025-04-05 18:43 | XMS_ITS | Encounter Summary ---
Author Organization [facility] Address [address] [place] [address] Care Team Providers Care Photovoltaic Installation Technician Name Role Phone Roshan Jimenez DO Primary Care Provider Unav ailable Encounter Details Date Type Department Care Team (Latest Contact Info) Description 03/26/2003 Outpatient Historical [facility] Gastroenterology- [place] [address] [address] Demetri Chávez MD [address] [facility] [address] [place] [address] SCREENING MAL NEOP-COLON (Primary Dx) Social History Tobacco Use Types Packs/Day Years Used Date Smoking Tobacco: Never Assessed Sex and Gender Information Value Date Recorded Sex Assigned at Not on file 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
--- OUTSIDE RECORDS SUMMARY | 2025-04-05 18:43 | XMS_ITS | Encounter Summary ---
Author Organization [facility] Address [address] [place] [address] Care Team Providers Care Foam Cutting Supervisor Name Role Phone Roshan Jimenez DO Primary Care Provider Unav ailable Encounter Details Date Type Department Care Team (Latest Contact Info) Description 01/01/2007 Outpatient Historical [facility] Ear, Nose and Throat [address] [place] [address] [place] [phone] John Black MD NO ADDRESS ON FILE Follow-Up Examination, Following Unspecified Surgery (Primary Dx) Social History Tobacco Use Types Packs/Day Years Used Date Smoking Tobacco: Never Assessed Sex and Gender Information Value Date Recorded Sex Assigned at Not on file Legal Sex Male 4:59 AM COAL BRIQUETTE MACHINE OPERATOR Gender Identity Not on file Sexual Orientation Not on file documented as of this encounter Plan of Treatment Not on file documented as of this encounter Visit Diagnoses Diagnosis Follow-up examination, following unspecified surgery- Primary documented in this encounter Care Teams Foam Cutting Supervisor Relationship Specialty Start Date End Date Roshan Jimenez DO NO ADDRESS ON FILE PCP - General 03/26/03 documented as of this encounter
--- OUTSIDE RECORDS SUMMARY | 2025-04-05 18:43 | XMS_ITS | Encounter Summary ---
Author Organization [facility] Address [address] [place] [address] Care Team Providers Care Homebound Teacher Name Role Phone Roshan Jimenez DO Primary Care Provider Unav ailable Encounter Details Date Type Department Care Team (Latest Contact Info) Description 04/20/1998 Outpatient [facility] [address] [place] [phone] Roshan Jimenez DO NO ADDRESS ON FILE Acute bronchitis (Primary Dx); Obstructive chronic bronchitis with exacerbation (CMS/HCC); Tobacco use disorder; Edema Social History Tobacco Use Types Packs/Day Years Used Date Smoking Tobacco: Never Assessed Sex and Gender Information Value Date Recorded Sex Assigned at Not on file 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
--- OUTSIDE RECORDS SUMMARY | 2025-04-05 18:43 | XMS_ITS | Encounter Summary ---
Author Organization [employer] [facility] Address [address] [place] [address] Care Team Providers Care Modeling Agency Manager Name Role Phone Roshan Jimenez DO Primary Care Provider Unav ailable Encounter Details Date Type Department Care Team (Latest Contact Info) Description 12/23/1998 Outpatient Historical [facility] Axel Armstrong NO ADDRESS ON FILE Localized osteoarthrosis not specified whether primary or secondary, lower leg (Primary Dx) Social History Tobacco Use Types Packs/Day Years Used Date Smoking Tobacco: Never Assessed Sex and Gender Information Value Date Recorded Sex Assigned at Not on file Legal Sex Male 4:59 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
--- OUTSIDE RECORDS SUMMARY | 2025-04-05 18:43 | XMS_ITS | Encounter Summary ---
Author Organization [facility] Address [address] [place] [address] Care Team Providers Care Cylinder Dyer Name Role Phone Unavailable Primary Care Provider Unavailabl e Encounter Details Date Type Department Care Team (Late st Contact Info) Description 02/14/2025 Results Follow-Up [facility] [address] [place] [phone] Ryan Mathews MD [address] [place] [phone] CROSS ENTERPRISE INTEGRATOR PROCEDURE Social History Tobacco Use Types Packs/Day Years Used Date Smoking Tobacco: Former Cigarettes 0 09/19/2023 - 03/21/1964 Passive Smoke Exposure: Current Smokeless Tobacco: Never Alcohol Use Standard Drinks/Week Comments No 0 (1 standard drink = 0.6 oz pur e alcohol) Sex and Gender Information Value Date Recorded Sex Assigned at Not on file Legal Sex Male 12:11 AM COAL OR ORE CONTROLLER Gender Identity Not on file Sexual Orientation Not on file documented as of this encounter Plan of Treatment Upcoming Encounters Date Type Department Care Team (Late st Contact Info) Description 07/09/2025 10:20 AM COAL OR ORE CONTROLLER Office Visit [facility] [address] [place] [phone] Saritha Horton FNP [address] [place] [phone] 10/24/2025 10:45 AM COAL OR ORE CONTROLLER Office Visit [facility] [address] [facility] [address] [place] [address] Dane Sierra MD [address] [facility] [address] [place] [address] documented as of this encounter Visit Diagnoses Not on filedocumented in this encounter Additional Health Concerns Infection Onset Date Last Indicated Resolved Time R/O Respiratory 03/23/2025 03/23/2025 03/23/2025 3 :25 PM CDT documented as of this encounter
--- OUTSIDE RECORDS SUMMARY | 2025-04-05 18:43 | XMS_ITS | Encounter Summary ---
Author Organization [facility] Address [address] [place] [address] Care Team Providers Care Tongue And Groove Machine Operator Name Role Phone Roshan Jimenez DO Primary Care Provider Unav ailable Encounter Details Date Type Department Care Team (Latest Contact Info) Description 06/19/1998 Outpatient [facility] [address] [place] [address] Roshan Jimenez DO NO ADDRESS ON FILE Obstructive chronic bronchitis without exacerbation (CMS/HCC) (Primary Dx); Tobacco use disorder; Obesity, unspecified; Unspecified essential hypertension Social History Tobacco Use Types Packs/Day Years Used Date Smoking Tobacco: Never Assessed Sex and Gender Information Value Date Recorded Sex Assigned at Not on file Legal Sex Male 4:59 AM INWEAVER Gender Identity Not on file Sexual Orientation Not on file documented as of this encounter Plan of Treatment Not on file documented as of this encounter Visit Diagnoses Diagnosis Obstructive chronic bronchitis without exacerbation (CMS/HCC)- Primary Obstructive chronic bronchitis without exacerbation Tobacco use disorder Obesity, unspecified Unspecified essential hypertension documented in this encounter Care Teams Tongue And Groove Machine Operator Relationship Specialty Start Date End Date Roshan Jimenez DO NO ADDRESS ON FILE PCP - General 03/26/03 documented as of this encounter
--- OUTSIDE RECORDS SUMMARY | 2025-04-05 18:43 | XMS_ITS | Encounter Summary ---
Author Organization [facility] Address [address] [place] [address] Care Team Providers Care Silk Screen Operator Name Role Phone Roshan Jimenez DO Primary Care Provider Unav ailable Encounter Details Date Type Department Care Team (Latest Contact Info) Description 03/26/2003 Outpatient Historical [facility] [place] [address] [facility] [address] [place] [address] Demetri Chávez MD [address] [facility] [address] [place] [address] SCREENING MAL NEOP-COLON (Primary Dx) Social History Tobacco Use Types Packs/Day Years Used Date Smoking Tobacco: Never Assessed Sex and Gender Information Value Date Recorded Sex Assigned at Not on file Legal Sex Male 4:59 AM APPLICATION SUPPORT TECHNICIAN Gender Identity Not on file Sexual Orientation Not on file documented as of this encounter Plan of Treatment Not on file documented as of this encounter Visit Diagnoses Diagnosis Special screening for malignant neoplasms, colon- Primary documented in this encounter Care Teams Silk Screen Operator Relationship Specialty Start Date End Date Roshan Jimenez DO NO ADDRESS ON FILE PCP - General 03/26/03 documented as of this encounter
--- OUTSIDE RECORDS SUMMARY | 2025-04-05 18:43 | XMS_ITS | Encounter Summary ---
Author Organization [facility] Address [address] [place] [address] Care Team Providers Care Student Services Director Name Role Phone Roshan Jimenez DO Primary Care Provider Unav ailable Encounter Details Date Type Department Care Team (Latest Contact Info) Description 09/17/1998 Outpatient [facility] [address] [place] [phone] Roshan Jimenez DO NO ADDRESS ON FILE Unspecified essential hypertension (Primary Dx); Obesity, unspecified; Obstructive chronic bronchitis without exacerbation (CMS/HCC); Reflux esophagitis Social History Tobacco Use Types Packs/Day Years Used Date Smoking Tobacco: Never Assessed Sex and Gender Information Value Date Recorded Sex Assigned at Not on file Legal Sex Male 4:59 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
--- OUTSIDE RECORDS SUMMARY | 2025-04-05 18:43 | XMS_ITS | Encounter Summary ---
Author Organization [facility] Address [address] [place] [address] Care Team Providers Care Case Management Assistant Name Role Phone Roshan Jimenez DO Primary Care Provider Unav ailable Encounter Details Date Type Department Care Team (Latest Contact Info) Description 11/11/2003 Outpatient [facility] Podiatry-[place] [address] [place] [address] Noé Rosa, DPM [address] [place] [address] Onychia of toe (Primary Dx); INGROWING NAIL Social History Tobacco Use Types Packs/Day Years Used Date Smoking Tobacco: Never Assessed Sex and Gender Information Value Date Recorded Sex Assigned at Not on file Legal Sex Male 4:59 AM INTEGRATED LOGISTICS SUPPORT MANAGER Gender Identity Not on file Sexual Orientation Not on file documented as of this encounter Plan of Treatment Not on file documented as of this encounter Visit Diagnoses Diagnosis Onychia of toe- Primary Onychia and paronychia of toe Ingrowing nail documented in this encounter Care Teams Case Management Assistant Relationship Specialty Start Date End Date Roshan Jimenez DO NO ADDRESS ON FILE PCP - General 03/26/03 documented as of this encounter
--- OUTSIDE RECORDS SUMMARY | 2025-04-05 18:43 | XMS_ITS | Encounter Summary ---
Author Organization [facility] Address [address] [place] [address] Care Team Providers Care Speech And Language Specialist Name Role Phone Roshan Jimenez DO Primary Care Provider Unav ailable Encounter Details Date Type Department Care Team (Latest Contact Info) Description 12/11/2002 Outpatient [facility] Podiatry-[place] [address] [place] [address] Noé Rosa, DPM [address] [place] [address] Onychia of toe (Primary Dx) Social History Tobacco Use Types Packs/Day Years Used Date Smoking Tobacco: Never Assessed Sex and Gender Information Value Date Recorded Sex Assigned at Not on file Legal Sex Male 4:59 AM ADMINISTRATIVE SERVICES ASSISTANT Gender Identity Not on file Sexual Orientation Not on file documented as of this encounter Plan of Treatment Not on file documented as of this encounter Visit Diagnoses Diagnosis Onychia of toe- Primary Onychia and paronychia of toe documented in this encounter Care Teams Speech And Language Specialist Relationship Specialty Start Date End Date Roshan Jimenez DO NO ADDRESS ON FILE PCP - General 03/26/03 documented as of this encounter
--- OUTSIDE RECORDS SUMMARY | 2025-04-05 18:43 | XMS_ITS | Encounter Summary ---
Author Organization [facility] Address [address] [place] [address] Care Team Providers Care Front End Loader Operator Name Role Phone Roshan Jimenez DO Primary Care Provider Unav ailable Encounter Details Date Type Department Care Team (Latest Contact Info) Description 01/06/1999 Outpatient Historical [facility] Podiatry-[place] [address] [place] [address] Noé Rosa, DPM [address] [place] [address] Ingrowing nail (Primary Dx) Social History Tobacco Use Types Packs/Day Years Used Date Smoking Tobacco: Never Assessed Sex and Gender Information Value Date Recorded Sex Assigned at Not on file Legal Sex Male 4:59 AM DIRECT SUPPORT PROFESSIONAL Gender Identity Not on file Sexual Orientation Not on file documented as of this encounter Plan of Treatment Not on file documented as of this encounter Visit Diagnoses Diagnosis Ingrowing nail- Primary documented in this encounter Care Teams Front End Loader Operator Relationship Specialty Start Date End Date Roshan Jimenez DO NO ADDRESS ON FILE PCP - General 03/26/03 documented as of this encounter
--- OUTSIDE RECORDS SUMMARY | 2025-04-05 18:43 | XMS_ITS | Encounter Summary ---
Author Organization [facility] Address [address] [place] [address] Care Team Providers Care Stave Cutting Supervisor Name Role Phone Roshan Jimenez DO Primary Care Provider Unav ailable Encounter Details Date Type Department Care Team (Latest Contact Info) Description 11/30/2006 Outpatient Historical [facility] Ear, Nose and Throat [address] 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
--- OUTSIDE RECORDS SUMMARY | 2025-04-05 18:43 | XMS_ITS | Encounter Summary ---
Author Organization [facility] Address [address] [place] [address] Care Team Providers Care Director Financial Planning Name Role Phone Roshan Jimenez DO Primary Care Provider Unav ailable Encounter Details Date Type Department Care Team (Latest Contact Info) Description 02/17/2006 Outpatient [facility] [address] [place] [address] Roshan Jimenez DO NO ADDRESS ON FILE Viral Infection (Primary Dx); Unspecified Essential Hypertension; Unspecified Chronic Bronchitis (CMS/HCC); Impacted Cerumen Social History Tobacco Use Types Packs/Day Years Used Date Smoking Tobacco: Never Assessed Sex and Gender Information Value Date Recorded Sex Assigned at Not on file Legal Sex Male 4:59 AM BLENDER OPERATOR Gender Identity Not on file Sexual Orientation Not on file documented as of this encounter Plan of Treatment Not on file documented as of this encounter Visit Diagnoses Diagnosis Unspecified viral infection, in conditions classified elsewhere and of unspecified site- Primary Unspecified essential hypertension Unspecified chronic bronchitis (CMS/HCC) Unspecified chronic bronchitis Impacted cerumen documented in this encounter Care Teams Director Financial Planning Relationship Specialty Start Date End Date Roshan Jimenez DO NO ADDRESS ON FILE PCP - General 03/26/03 documented as of this encounter
--- OUTSIDE RECORDS SUMMARY | 2025-04-05 18:43 | XMS_ITS | Encounter Summary ---
Author Organization [employer] [facility] Address [address] [place] [address] Care Team Providers Care Control System Manager Name Role Phone Roshan Jimenez DO Primary Care Provider Unav ailable Encounter Details Date Type Department Care Team (Latest Contact Info) Description 12/31/1997 Outpatient Historical [facility] Axel Armstrong NO ADDRESS ON FILE Localized osteoarthrosis not specified whether primary or secondary, lower leg (Primary Dx) Social History Tobacco Use Types Packs/Day Years Used Date Smoking Tobacco: Never Assessed Sex and Gender Information Value Date Recorded Sex Assigned at Not on file Legal Sex Male 4:59 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
--- OUTSIDE RECORDS SUMMARY | 2025-04-05 18:43 | XMS_ITS | Encounter Summary ---
Author Organization [facility] Address [address] [place] [address] Care Team Providers Care Steamfitter Name Role Phone Roshan Jimenez DO Primary Care Provider Unav ailable Encounter Details Date Type Department Care Team (Latest Contact Info) Description 08/05/2003 Outpatient [facility] [address] [place] [address] Roshan Jimenez DO NO ADDRESS ON FILE HYPERTENSION NOS (Primary Dx); CHRONIC AIRWAY OBSTRUCTION NEC (CMS/HCC); UNSPECIFIED VIRAL INFECTION Social History Tobacco Use Types Packs/Day Years Used Date Smoking Tobacco: Never Assessed Sex and Gender Information Value Date Recorded Sex Assigned at Not on file Legal Sex Male 4:59 AM TRIAL MANAGEMENT ASSOCIATE Gender Identity Not on file Sexual [...] site documented in this encounter Care Teams Steamfitter Relationship Specialty Start Date End Date Roshan Jimenez DO NO ADDRESS ON FILE PCP - General 03/26/03 documented as of this encounter
--- OUTSIDE RECORDS SUMMARY | 2025-04-05 18:43 | XMS_ITS | Encounter Summary ---
Author Organization [facility] Address [address] [place] [address] Care Team Providers Care Still Tender Name Role Phone Roshan Jimenez DO Primary Care Provider Unav ailable Encounter Details Date Type Department Care Team (Latest Contact Info) Description 04/03/2007 Outpatient [facility] [address] [place] [address] Roshan Jimenez DO NO ADDRESS ON FILE Unspecified Essential Hypertension (Primary Dx); Other Apnea of [place]; Obesity, Unspecified Social History Tobacco Use Types Packs/Day Years Used Date Smoking Tobacco: Never Assessed Sex and Gender Information Value Date Recorded Sex Assigned at Not on file Legal Sex Male 4:59 AM GANG PLANK WORKMAN Gender Identity Not on file Sexual Orientation Not on file documented as of this encounter Plan of Treatment Not on file documented as of this encounter Visit Diagnoses Diagnosis Unspecified essential hypertension- Primary Other apnea of Obesity, unspecified documented in this encounter Care Teams Still Tender Relationship Specialty Start Date End Date Roshan Jimenez DO NO ADDRESS ON FILE PCP - General 03/26/03 documented as of this encounter
--- OUTSIDE RECORDS SUMMARY | 2025-04-05 18:43 | XMS_ITS | Encounter Summary ---
Author Organization [facility] Address [address] [place] [address] Care Team Providers Care Warper Fixer Name Role Phone Roshan Jimenez DO Primary Care Provider Unav ailable Encounter Details Date Type Department Care Team (Latest Contact Info) Description 11/16/2006 Outpatient Historical [facility] Ear, Nose and Throat [address] [place] [address] Thomas Harry MD [address] [facility] [address] [place] [phone] Follow-Up Examination, Following Unspecified Surgery (Primary Dx) Social History Tobacco Use Types Packs/Day Years Used Date Smoking Tobacco: Never Assessed Sex and Gender Information Value Date Recorded Sex Assigned at Not on file Legal Sex Male 4:59 AM DATA WAREHOUSE DEVELOPER Gender Identity Not on file Sexual Orientation Not on file documented as of this encounter Plan of Treatment Not on file documented as of this encounter Visit Diagnoses Diagnosis Follow-up examination, following unspecified surgery- Primary documented in this encounter Care Teams Warper Fixer Relationship Specialty Start Date End Date Roshan Jimenez DO NO ADDRESS ON FILE PCP - General 03/26/03 documented as of this encounter
--- OUTSIDE RECORDS SUMMARY | 2025-04-05 18:43 | XMS_ITS | Encounter Summary ---
Author Organization [facility] Address [address] [place] [address] Care Team Providers Care Imaging Tech Name Role Phone Roshan Jimenez DO Primary Care Provider Unav ailable Encounter Details Date Type Department Care Team (Late st Contact Info) Description 05/27/2008 Outpatient Historical [facility] [address] [place] [address] Yusef Malagon MD NO ADDRESS ON FILE Social History Tobacco Use Types Packs/Day Years Used Date Smoking Tobacco: Every Day Cigarettes 1 40 Alcohol Use Standard Drinks/Week Comments No 0 (1 standard drink = 0.6 oz pur e alcohol) Sex and Gender Information Value Date Recorded Sex Assigned at Not on file Legal Sex Male 4:59 AM GOLD LEAF ROLLER Gender Identity Not on file Sexual Orientation [...] AM CDT) NITRITE UA NEGATIVE NEGATIVE [facility] UROBILINOGEN UA 0.[address] [facility] CLARITY UA Clear Clear [facility] GLUCOSE UA NEGATIVE NEGATIVE [facility] SPECIFIC GRAVITY UA 1.005 <=1.005 [facility] PH UA 6.0 5.0 - 9.0 [facility] BILIRUBIN UA NEGATIVE NEGATIVE [facility] LEUKOCYTE ESTERASE UA NEGATIVE NEGATIVE [facility] MICRO EXAM No No [facility] KETONES UA NEGATIVE NEGATIVE [facility] COLOR UA Pale Yellow Straw [facility] PROTEIN UA NEGATIVE NEGATIVE [facility] BLOOD UA NEGATIVE NEGATIVE [facility] Urine specimen (specimen) 05/27/2008 10:56 AM CDT 05/27/2008 10:56 AM CDT us Yusef Malagon MD URINE ORDERABLES Final Result Performing Organization Address City/State/[facility] Co de Phone Number INTERFACE SYSTEM Refer to clinic/hospital department [facility] CLIA# [id number] [address] [place] [id number] * CBC WITH DIFFERENTIAL (05/27/2008 10:53 AM CDT) HEMATOCRIT 50.0 41.0 - 53.0 % [facility] PLATELETS 245 140 - 440 K/ul [facility] EOSINOPHILS 3.7 0.0 - 7.0 % [facility] WBC 8.5 4.8 - 10.8 K/ul [facility] EOSINOPHIL ABSOLUTE 0.3 0.0 - 0.7 K/ul [facility] RBC 5.00 4.60 - 6.20 Mil/ul [facility] MCHC 33.0 30.0 - 35.0 g/dL [facility] LYMPHOCYTES 25.7 24.0 - 44.0 % [facility] MONOCYTE ABSOLUTE 0.5 0.1 - 0.6 K/ul [facility] BASOPHILS ABSOLUTE 0.1 0.0 - 0.2 K/ul [facility] MCV 100.0 84.0 - 103.[address] [facility] BASOPHILS 0.7 0.0 - 1.0 % [facility] MPV 11.7 8.9 - 12.[address] [facility] HEMOGLOBIN 16.5 14.0 - 18.0 g/dL [facility] MONOCYTES 5.8 2.0 - 10.0 % [facility] RDW 14.3 11.0 - 14.5 % [facility] LYMPHOCYTE ABSOLUTE 2.2 1.2 - 4.0 K/ul [facility] NEUTROPHILS 64.1 42.2 - 75.2 % [facility] MCH 33.0 27.0 - 34.[address] [facility] NEUTROPHIL ABSOLUTE 5.4 2.0 - 8.0 K/ul [facility] Blood specimen (specimen) 05/27/2008 10:53 AM CDT 05/27/2008 11:08 AM CDT us Yusef Malagon MD HEMATOLOGY ORDERABLES Final Re sult Performing Organization Address City/[facility] Co de Phone Number INTERFACE SYSTEM Refer to clinic/hospital department [facility] CLIA# [id number] [address] [place] [id number] * ANTIBODY SCREEN (05/27/2008 10:53 AM CDT) ANTIBODY SCREEN Negative [facility] Blood specimen (specimen) 05/27/2008 10:53 AM CDT 05/27/2008 11:08 AM CDT us Yusef Malagon MD BLOOD BANK ORDERABLES Final Re sult Performing Organization Address City/[facility] Co de Phone Number INTERFACE SYSTEM Refer to clinic/hospital department [facility] CLIA# [id number] [address] [place] [address] * ABORH TYPING (05/27/2008 10:53 AM CDT) ABO/RH TYPE O Positive [facility] Blood specimen (specimen) 05/27/2008 10:53 AM CDT 05/27/2008 11:08 AM CDT us Yusef Malagon MD BLOOD BANK ORDERABLES Final Re sult Performing Organization Address [place]/[facility] Phone Number INTERFACE SYSTEM Refer to clinic/hospital department [facility] CLIA# [id number] [address] [place] [address] * BASIC METABOLIC PANEL (05/27/2008 10:53 AM CDT) POTASSIUM 4.0 3.5 - 5.0 mEq/L [facility] CO2 29 22 - 32 mmol/l [facility] CHLORIDE 109 95 - 110 mEq/L [facility] OSMOLALITY, CALCULATED 294 275 - 295 mOsm/Kg [facility] CREATININE 1.0 0.7 - 1.5 mg/dL [facility] CALCIUM 9.4 8.4 - 10.5 mg/dL [facility] SODIUM 143 136 - 145 mEq/L [facility] GLUCOSE 88 70 - 110 mg/dL [facility] ANION GAP 9 9 - 20 mEq/L [facility] BUN 16 9 - 20 mg/dL [facility] Blood specimen (specimen) 05/27/2008 10:53 AM CDT 05/27/2008 11:08 AM CDT us Yusef Malagon MD CHEMISTRY ORDERABLES Final Res ult Performing Organization Address [place]/[facility] de Phone Number INTERFACE SYSTEM Refer to clinic/hospital department [facility] CLIA# [id number] [address] [place] [address] documented in this encounter Visit Diagnoses Not on filedocumented in this encounter Care Teams Imaging Tech Relationship Specialty Start Date End Date Roshan Jimenez DO NO ADDRESS ON FILE PCP - General 03/26/03 documented as of this encounter
--- OUTSIDE RECORDS SUMMARY | 2025-04-05 18:43 | XMS_ITS | Encounter Summary ---
Author Organization [facility] Address [address] [place] [address] Care Team Providers Care Lpn Home Health Name Role Phone Roshan Jimenez DO Primary Care Provider Unav ailable Encounter Details Date Type Department Care Team (Latest Contact Info) Description 07/17/2006 Outpatient [facility] [phone] [place] [address] Roshan Jimenez DO NO ADDRESS ON FILE Unspecified Essential Hypertension (Primary Dx); Unspecified Asthma; Depressive Disorder, not Elsewhere Classified Social History Tobacco Use Types Packs/Day Years Used Date Smoking Tobacco: Never Assessed Sex and Gender Information Value Date Recorded Sex Assigned at Not on file Legal Sex Male 4:59 AM PRICE ACCURACY SUPERVISOR Gender Identity Not on file Sexual Orientation Not on file documented as of this encounter Plan of Treatment Not on file documented as of this encounter Visit Diagnoses Diagnosis Unspecified essential hypertension- Primary Unspecified asthma(493.90) Unspecified asthma Depressive disorder, not elsewhere classified documented in this encounter Care Teams Lpn Home Health Relationship Specialty Start Date End Date Roshan Jimenez DO NO ADDRESS ON FILE PCP - General 03/26/03 documented as of this encounter
--- OUTSIDE RECORDS SUMMARY | 2025-04-05 18:43 | XMS_ITS | Encounter Summary ---
Author Organization [facility] Address [address] [place] [address] Care Team Providers Care Rn X Ray Name Role Phone Roshan Jimenez DO Primary Care Provider Unav ailable Encounter Details Date Type Department Care Team (Late st Contact Info) Description 11/09/2006 Outpatient Historical [facility] [place], John Messer MD NO ADDRESS ON FILE Obstructive Sleep Apnea (Adult) (Pediatric) (Primary Dx) Social History Tobacco Use Types Packs/Day Years Used Date Smoking Tobacco: Never Assessed Sex and Gender Information Value Date Recorded Sex Assigned at Not on file 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
--- OUTSIDE RECORDS SUMMARY | 2025-04-05 18:43 | XMS_ITS | Encounter Summary ---
Author Organization [facility] Address [address] [place] [address] Care Team Providers Care Junior Graphic Designer Name Role Phone Roshan Jimenez DO Primary Care Provider Unav ailable Encounter Details Date Type Department Care Team (Latest Contact Info) Description 02/10/2004 Outpatient [facility] [address] [place] [address] Roshan Jimenez DO NO ADDRESS ON FILE CHRONIC AIRWAY OBSTRUCTION NEC ([facility]) (Primary Dx); HYPERTENSION NOS; OBESITY NOS; OSTEOARTHROS NOS-UNSPEC Social History Tobacco Use Types Packs/Day Years Used Date Smoking Tobacco: Never Assessed Sex and Gender Information Value Date Recorded Sex Assigned at Not on file 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 Gender Identity Not on file Sexual Orientation Not on file documented as of this encounter Plan of Treatment Not on file documented as of this encounter Visit Diagnoses Diagnosis Chronic airway obstruction, not elsewhere classified ([facility])- Primary Chronic airway obstruction, not elsewhere classified Unspecified essential hypertension Obesity, unspecified Osteoarthrosis, unspecified whether generalized or localized, unspecified site documented in this encounter Care Teams Junior Graphic Designer Relationship Specialty Start Date End Date Roshan Jimenez DO NO ADDRESS ON FILE PCP - General 03/26/03 documented as of this encounter
--- OUTSIDE RECORDS SUMMARY | 2025-04-05 18:43 | XMS_ITS | Encounter Summary ---
Author Organization [facility] Address [address] [place] [address] Care Team Providers Care Scoop Operator Name Role Phone Roshan Jimenez DO Primary Care Provider Unav ailable Encounter Details Date Type Department Care Team (Latest Contact Info) Description 01/08/1999 Outpatient Historical [facility] [place] [address] [place] [address] Noé Rosa, DPM [address] [place] [address] Ingrowing nail (Primary Dx) Social History Tobacco Use Types Packs/Day Years Used Date Smoking Tobacco: Never Assessed Sex and Gender Information Value Date Recorded Sex Assigned at Not on file 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
--- OUTSIDE RECORDS SUMMARY | 2025-04-05 18:43 | XMS_ITS | Encounter Summary ---
Author Organization [facility] Address [address] [place] [address] Care Team Providers Care Soil Conservation Aide Name Role Phone Roshan Jimenez DO Primary Care Provider Unav ailable Encounter Details Date Type Department Care Team (Latest Contact Info) Description 11/25/2003 Outpatient Historical [facility]iatry-Ste[facility] [place] [address] [place] [address] Noé Rosa, DPM [address] [place] [address] Onychia of toe (Primary Dx); INGROWING NAIL Social History Tobacco Use Types Packs/Day Years Used Date Smoking Tobacco: Never Assessed Sex and Gender Information Value Date Recorded Sex Assigned at Not on file 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
--- OUTSIDE RECORDS SUMMARY | 2025-04-05 18:43 | XMS_ITS | Encounter Summary ---
Author Organization [facility] Address [address] [place] [address] Care Team Providers Care Jewelry Jobber Name Role Phone Roshan Jimenez DO Primary Care Provider Unav ailable Encounter Details Date Type Department Care Team (Latest Contact Info) Description 08/09/2004 Outpatient [facility] [address] [place] [address] Roshan Jimenez DO NO ADDRESS ON FILE CHRONIC AIRWAY OBSTRUCTION NEC ([facility]) (Primary Dx); REFLUX ESOPHAGITIS; HYPERTENSION NOS Social History Tobacco Use Types Packs/Day Years Used Date Smoking Tobacco: Never Assessed Sex and Gender Information Value Date Recorded Sex Assigned at Not on file 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
--- OUTSIDE RECORDS SUMMARY | 2025-04-05 18:43 | XMS_ITS | Encounter Summary ---
Author Organization [facility] Address [address] [place] [address] Care Team Providers Care Shell Sieve Operator Name Role Phone Roshan Jimenez DO Primary Care Provider Unav ailable Encounter Details Date Type Department Care Team (Latest Contact Info) Description 05/20/1998 Outpatient [facility] [address] [place] [address] Roshan Jimenez DO NO ADDRESS ON FILE Unspecified essential hypertension (Primary Dx); Obstructive chronic bronchitis without exacerbation (CMS/HCC); Depressive type psychosis; Abdominal pain, unspecified site Social History Tobacco Use Types Packs/Day Years Used Date Smoking Tobacco: Never Assessed Sex and Gender Information Value Date Recorded Sex Assigned at Not on file 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
--- NOTE | 2025-04-05 18:44 | XRR_ITS ---
PROCEDURE INFORMATION: Exam: XR Chest Exam date and time: 04/05/2025 6:54 PM Age: 74 years old Clinical indication: Pain; Chest pressure; Prior surgery; Surgery date: <1 month; Surgery type: Cardiac stent; Additional info: Chest pain; PT has on lifevest-unable to remove for cxr; Recent cardiac stent x 2 weeks ago TECHNIQUE: Imaging protocol: Radiologic exam of the chest. Views: 1 view. COMPARISON: CR XR chest 1V portable [id number] 03/05/2025 1:37 PM FINDINGS: Tubes, catheters and devices: Overlying leads obscure detail. Lungs: Increased strands at the lung bases, possibly atelectasis though other etiologies not excluded. Query mild interstitial edema. Pleural spaces: Unremarkable. No pleural effusion. No pneumothorax. Heart/Mediastinum: Probable at least moderate cardiomegaly. Bones/joints: Unremarkable. XR/XR chest 1V portable [id number] IMPRESSION: Increased strands at the lung bases, possibly atelectasis though other etiologies not excluded. Query mild interstitial edema.
--- NOTE | 2025-04-05 18:44 | ECG_ITS ---
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 Measurements Intervals Venus Rate: 82 P: 37 SD: 181 QRS: -7 QRSD: 91 T: 134 QT: 370 QTc: 433 Interpretive Statements SINUS RHYTHM LOW QRS VOLTAGE IN PRECORDIAL LEADS [QRS DEFLECTION < 1.0 mV IN CHEST LEADS] SEPTAL MYOCARDIAL INFARCTION , PROBABLY OLD [40+ ms Q WAVE IN V1/V2] MODERATE T-WAVE ABNORMALITY, CONSIDER LATERAL ISCHEMIA [-0.1+ mV T-WAVE IN I/aVL/V5/V6] Compared to ECG 03/05/2025 16:53:30 No significant changes Electronically Signed On 04-08-2025 08:18:57 CDT by Michelle Sandhu M.D. [id number]
--- OUTSIDE RECORDS SUMMARY | 2025-04-05 18:44 | XMS_ITS | Clinical Summary ---
Author Organization [facility] [place] Address [address] [place] [address] Phone Care Team Providers Care Environmental Engineering Assistant Name Role Phone Unavailable Primary Care Provider Unavailabl e Allergies Active Allergy Reactions Criticality Noted Date Comments Broccoli Nausea and Vomiting Low 02/14/2025 Per [facility] paperwork Medications fluticasone-ume clidinium-vilan terol (Trelegy Ellipta) 200-62.5-25 mcg Disk with DeviceIndicatio ns:COPD with exacerbation (CMS/HCC) Take 1 Puff by inhalation daily. 60 Each 11 09/29/19 24 Active gabapentin (NEURONTIN) 300 mg capsuleIndicati ons:Neuroforami [...] mouth daily. 30 Tablet 09/29/19 24 Active magnesium hydroxide (MILK [...] ons:Asthma with chronic obstructive pulmonary disease (COPD) ([facility]) TAKE 2 PUFFS BY INHALATION EVERY 4 HOURS NEEDED FOR RESPIRATION. 17 Gram 12/19/19 24 Active polyethylene glycol (MIRALAX) 17 gram Powder in Packet Take by mouth 1 time daily as needed for Constipation. Active ergocalciferol (VITAMIN D2) 50,000 unit capsule Take 50,000 Units by mouth every 30 days. Active MELATONIN ORAL Take 6 mg by mouth 1 time daily as needed. Active triamcinolone acetonide (KENALOG) 0.5 % CreamIndication s:Stasis dermatitis Apply to affected area 2 times daily. 15 Gram 2 11/21/19 25 Active albuterol (PROVENTIL,VENT MARCELO) 2.5 mg /3 mL (0.083 %) Solution for Nebulization Take 3 mL (2.5 mg) by inhalation every 8 hours as needed for Shortness of Breath. 02/20/20 25 Active atorvastatin (LIPITOR) 40 mg tablet Take 1 Tablet (40 mg) by mouth daily at bedtime. 02/20/20 25 Active FLUoxetine (PROzac) 40 mg capsule Take 1 Capsule (40 mg) by mouth daily. Take 20 mg with a 10 mg daily 02/20/20 25 Active levothyroxine 25 mcg tablet Take 1 Tablet (25 mcg) by mouth daily in the morning. 02/21/20 25 Active metoprolol succinate (TOPROL XL) 25 mg Extended Release 24 hour tablet Take 1 Tablet (25 mg) by mouth daily. 02/21/20 25 Active nitroglycerin (NITROSTAT) 0.4 mg Tablet, Sublingual Place 1 Tablet (0.4 mg) under tongue every 5 minutes as needed for Chest Pain (Not to exceed 3 doses, notify physician if chest pain not relieved, hold if systolic BP less than or equal to 90 mmHg). 02/20/20 25 Active pantoprazole (PROTONIX) 40 mg Tablet, Delayed Release (E.C.) Take 1 Tablet (40 mg) by mouth daily before breakfast. 02/21/20 Active potassium CHLORIDE (KLOR-CON) 10 mEq Extended Release tablet Take 1 Tablet (10 mEq) by mouth 2 times daily with meals. 02/20/20 Active Additional Information Patient taking differently: 20 mEqOral TWO TIMES DAILY WITH MEALS, Reported on 04/01/2025 sennosides-docu sate sodium (SENNA-S) 8.6-50 mg tablet Take 1 Tablet by mouth 2 times daily as needed for Constipation. 02/20/20 Active clopidogreL (PLAVIX) 75 mg Tablet Take 1 Tablet (75 mg) by mouth daily. 02/21/20 Active bumetanide (BUMEX) 1 mg tablet Take 1 mg by mouth daily at bedtime. Active oxyCODONE-aceta minophen (PERCOCET) 10-325 mg Tablet Take 1 Tablet by mouth every 6 hours as needed for Pain, Severe. Active docusate sodium (COLACE) 100 mg capsule Take 100 mg by mouth 2 times daily. Active furosemide (LASIX) 40 mg tablet Take 40 mg by mouth daily. Active empagliflozin (Jardiance) 10 mg tablet Take 1 Tablet (10 mg) by mouth daily in the morning. 100 Tablet 3 04/01/20 Active oxyCODONE-aceta minophen (PERCOCET) 5-325 mg tabletIndicatio ns:Cellulitis of right buttock,Neurofo raminal stenosis of lumbar spine,Polymyalg ia rheumatica syndrome,DDD (degenerative disc disease), lumbar Take 1 Tablet by mouth every 6 hours as needed for Pain, Moderate. Max Daily Amount: 4 Tablets 20 Tablet 09/29/19 24 025 Discontinued aspirin (ECOTRIN EC) 81 mg Tablet, Delayed Release (E.C.) Take 1 Tablet (81 mg) by mouth daily. Stop aspirin after one month. Continue with plavix and eliquis 02/21/20 025 Discontinued furosemide (LASIX) 40 mg tablet Take 1 Tablet (40 mg) by mouth 2 times daily. 02/20/20 025 Discontinued bumetanide (BUMEX) 2 mg tablet Take 2 mg by mouth daily. 025 Discontinued Active Problems Problem Noted Date Diagnosed Date Malnutrition of moderate degree 03/26/2025 Community acquired pneumonia 03/25/2025 Chronic gastritis 03/25/2025 ANJUM (acute kidney injury) 03/24/2025 Severe sepsis with septic shock 03/23/2025 Acute on chronic respiratory failure with hypoxia and hypercapnia 03/23/2025 Chronic indwelling Robertson catheter 03/22/2025 Chronic hypoxic respiratory failure 03/22/2025 Atrial fibrillation 03/22/2025 Lesion of spleen 03/22/2025 Acute on chronic anemia 03/22/2025 Ischemic dilated cardiomyopathy 02/20/2025 Acute on chronic combined sy stolic and diastolic heart failure 02/20/2025 S/P drug eluting coronary stent placement 2024 Acute on chronic systolic congestive heart failu re 02/16/2025 Pneumonia of both lungs due to Pseudomonas speci es 02/16/2025 ASHD (arteriosclerotic heart disease) 02/15/2025 STEMI (ST elevation myocardial infarction) 02/14 Acute on chronic hypoxic respiratory failure Acute blood loss anemia 02/14/2025 Urinary tract infection asso ciated with chronic indwelling urethral catheter 02/14/2025 Paroxysmal atrial fibrillati on with rapid ventricular [...] Anemia of infection and chronic disease 11/24/19 Hx of gastritis 01/18/2018 Dependent edema 09/26/2017 [...] Problem Noted Date Diagnosed Date Resolved Date Severe sepsis without septic shock 02/13/2025 03/22/2025 Cellulitis 01/06/2023 06/06/2023 Impetigo 03/28/2022 11/24/2022 Pressure [...] Encounters Date Type Department Care Team Description 04/01/2025 10:00 AM CDT Office Visit [address] [place] [address] Dane Sierra MD Farmer, Sarah, MARCEL History of ST elevation myocardial infarction (STEMI) (Primary Dx); Benign hypertension; Paroxysmal atrial fibrillation with rapid ventricular response (CMS/HCC); Mixed hyperlipidemia; Ischemic dilated cardiomyopathy (CMS/HCC); Other iron deficiency anemia 03/26/2025 9:54 AM CDT Anesthesia Event [facility] Endoscopy [address] [place] [address] Grzegorz Arteaga MD Bell, Leslie, CRNA 03/26/2025 9:20 AM CDT - 03/26/2025 9:40 AM CDT Surgery [facility] Endoscopy [address] [place] [address] Tiago Ryan MD ESOPHAGOGASTRODUODENOSCOPY 03/25/2025 External Device Data [facility]STRACTION Provider, Abstract 03/25/2025 External Device Data [facility]CTION Provider, Abstract 03/25/2025 External Device Data [facility] Provider, Abstract 03/22/2025 3:21 AM CDT - 03/27/2025 7:10 PM CDT Hospital Encounter [facility] 4A Cardiac [address] [place] [address] Bandar Parsons MD Sundaram, Vignesh, MD Meyer III, DO John Sorto Saroj, MD Haq, MD Elyse Hinkle Ravi V., MD Acute on chronic combined systolic and diastolic heart failure ([facility]/HCC) Discharge Disposition: Medicaid Nursing Facility 03/21/2025 - 03/21/2025 11:59 PM CDT Hospital Encounter [address] [address] Ambulance, [facility] Discharge Disposition: [facility] 03/21/2025 Travel 03/18/2025 External Device Data [facility] ABSTRACTION Provider, Abstract 03/04/2025 12:30 AM CDT - 03/04/2025 11:59 PM CDT Hospital Encounter [address] [address] Ambulance, [facility] Discharge Disposition: [facility] 02/20/2025 Abstract [facility] [address] [place] [address] Provider, Abstract 02/20/2025 Orders Only [facility] [address] [place] [address] Provider, Abstract 02/19/2025 - 02/19/2025 11:59 PM CDT Hospital Encounter [facility] [address] [facility] [address] [place] [address] Lokesh Mckeon MD Ambulance, [facility] Discharge Disposition: Intermediate Care Facility 02/18/2025 External Device Data [facility] ABSTRACTION Provider, Abstract 02/18/2025 External Device Data [facility] Provider, Abstract 02/18/2025 External Device Data [facility] Provider, Abstract 02/17/2025 Travel 02/14/2025 1:05 AM CDT - 02/14/2025 2:05 AM CDT Surgery [facility] Cardiac Roofing Sales Representative [address] [place] [phone] Ryan Mathews MD Left heart cath 02/14/2025 Results Follow-Up [facility] [address] [place] [phone] Ryan Mathews MD LAST INSERTER PROCEDURE 02/13/2025 10:12 PM CDT - 02/19/2025 7:37 PM CDT Hospital Encounter [facility] 4B Cardiac [address] [place] [phone] Jean-Pierre Pappas MD Elgayesh, Kim Grayson, MD Hamilton, MD Fer Aponte, MD Linda Ruiz, Lokesh Nash MD STEMI (ST elevation myocardial infarction) ([facility]) Discharge Disposition: [facility]) with Medicare Certification in Anticipation of [...] on file Legal Sex Male 12:11 AM ROBOTYPE OPERATOR Gender Identity Not on file Sexual Orientation Not on file Last Filed Vital Signs Vital Sign Reading Time Taken Comments Blood Pressure 102/54 04/01/2025 9:46 AM CDT Pulse 83 04/01/2025 9:46 AM CDT Temperature 35.7 C (96.3 F) 03/27/2025 3:44 PM CDT Respiratory Rate 16 03/27/2025 3:44 PM CDT Oxygen Saturation 96% 04/01/2025 9:46 AM CDT Inhaled Oxygen Concentration - - Weight 137.6 kg (303 lb 6.4 oz) 04/01/2025 9:46 AM CDT Height 182.9 cm (6') 04/01/2025 9:46 AM CDT Body Mass Index 41.15 04/01/2025 9:46 AM CDT Plan of Treatment Upcoming Encounters Date Type Department Care Team (Late st Contact Info) Description 07/09/2025 10:20 AM ROBOTYPE OPERATOR Office Visit [facility] [address] [facility] [address] [place] [phone] Saritha Horton, MARCEL [address] [facility] [address] [place] [phone] 10/24/2025 10:45 AM ROBOTYPE OPERATOR Office Visit [facility] [address] [facility] [address] [place] [phone] Dane Sierra MD [address] [facility] [address] [place] [phone] Health Maintenance Due Date Last Done [...] Additional history exists INFLUENZA VACCINE (#1) 2025 , 05/11/2022, 05/11/2022, Additional history exists ZOSTER VACCINE Completed 11/26/2018, 09/24/2018 PNEUMOCOCCAL VACCINE 50+ YEARS Completed 1 09/19/2019, 07/20/2020, 06/01/2019, Additional history exists Medical Devices Implanted Type Area Refueler Device Identifier Shelf Expiration Date Model / Serial / Lot Stent Jayy Ramona Santiago 4.0x38mm Rx [id number] - [id number] Implanted:Qty: 1 on 02/14/2025 by Geronimo, Director College () MD Wing at [facility] Stent N/A: Coronary [employer] [id number] 02/19/2027 [id number] / / [id number] Procedures Procedure Name Priority Date/Time Associated Diagnosis Comments TELEMETRY REPORT 03/28/2025 9:55 AM CDT BASIC METABOLIC PANEL Routine 03/27/2025 4:40 AM CDT VANCOMYCIN LEVEL TROUGH Timed Study 03/26/20 12:44 PM CDT UPPER ENDOSCOPY REPORT 10:15 AM CDT PATHOLOGY Pathology 03/26/2025 10:04 AM CDT ESOPHAGOGASTRODUODENOSCOPY 03/26 9:20 AM CDT Case Notes 03/26 700 patient only drink 1 sip of prep and is refusing more. message sent to and TICO Canas to determine next steps - KT HEMOGLOBIN AND HEMATOCRIT Routine 2024 8:46 AM CDT CBC WITH DIFFERENTIAL Routine 03/26/2025 2:06 AM CDT BASIC METABOLIC PANEL Routine 03/26/2025 2:06 AM CDT STREPTOCOCCUS PNEUMONIAE ANTIGEN Routine 03/25/2025 2:47 PM CDT LEGIONELLA ANTIGEN, URINE Routine 2024 2:47 PM CDT DIRECTOR INVESTMENT BANKING EVALUATE AND TREAT Routine 11:23 AM CDT PERIPHERAL BLOOD SMEAR PATHOLOGY INTERP Routine 03/25/2025 5:01 AM CDT CBC WITH DIFFERENTIAL Routine 03/25/2025 5:01 AM CDT BASIC METABOLIC PANEL Routine 03/25/2025 5:01 AM CDT HEMOGLOBIN AND HEMATOCRIT Routine 2024 3:39 PM CDT POC GLUCOSE Routine 03/24/2025 1:01 PM CDT TRANSFUSE EMERGENCY RELEASE/DOWNTIME RED BLOOD CELLS Routine 03/24/2025 10:38 AM CDT MRSA PCR RAPID SCREEN Routine 03/24/2025 9:28 AM CDT POC GLUCOSE Routine 03/24/2025 8:27 AM CDT CBC WITH DIFFERENTIAL Stat 03/24/2025 8:24 AM CDT POC GLUCOSE Routine 03/24/2025 4:41 AM CDT CORTISOL LEVEL Routine 03/24/2025 4:41 AM CDT VANCOMYCIN LEVEL RANDOM Routine 03/24/20 4:41 AM CDT BASIC METABOLIC PANEL Routine 03/24/2025 4:41 AM CDT MAGNESIUM LEVEL Routine 03/24/2025 4:41 AM CDT POC GLUCOSE Routine 03/24/2025 1:08 AM CDT BLOOD CULTURE Stat 03/23/2025 10:03 PM CDT BLOOD CULTURE Stat 03/23/2025 10:03 PM CDT POC GLUCOSE Routine 03/23/2025 9:13 PM CDT RESPIRATORY PATHOGEN PCR PANEL Routine 0 03/23/2025 1:59 PM CDT ECHOCARDIOGRAM W/ CONTRAST AGENT Stat 03/23/2025 10:23 AM CDT AMMONIA LEVEL Routine 03/23/2025 9:23 AM CDT XR CHEST PA OR AP 1 VW Stat 7:29 AM CDT POC LACTIC ACID Routine 03/23/2025 7:08 AM CDT BLOOD GAS ARTERIAL Routine 03/23/2025 7:08 AM CDT POC GLUCOSE Routine 03/23/2025 6:45 AM CDT LACTIC ACID Stat 03/23/2025 5:26 AM CDT TYPE AND SCREEN Routine 03/23/2025 5:16 AM CDT T4 FREE Routine 03/23/2025 5:16 AM CDT C-REACTIVE PROTEIN Routine 03/23/2025 5:16 AM CDT BASIC METABOLIC PANEL PLUS Routine 03/23 5:16 AM CDT PROCALCITONIN Stat 03/23/2025 5:16 AM CDT BLOOD CULTURE Stat 03/23/2025 5:16 AM CDT BLOOD CULTURE Stat 03/23/2025 5:16 AM CDT PREPARE RED BLOOD CELLS Stat 03/23/20 4:38 AM CDT RT ASSESS AND TREAT Routine 03/23/2025 4:34 AM CDT DIFFERENTIAL, MANUAL Stat 03/23/2025 3:57 AM CDT VITAMIN B12 AND FOLATE Routine 3:57 AM CDT BASIC METABOLIC PANEL Routine 03/23/2025 3:57 AM CDT CBC WITH DIFFERENTIAL Stat 03/23/2025 3:57 AM CDT HEMOGLOBIN AND HEMATOCRIT Stat 2024 11:24 PM CDT XR CHEST PA OR AP 1 VW Stat 10:53 PM CDT POC LACTIC ACID Routine 03/22/2025 10:43 PM CDT BLOOD GAS ARTERIAL Stat 03/22/2025 10:43 PM CDT POC GLUCOSE Routine 03/22/2025 10:[address] ABDOMEN PELVIS W CONTRAST Stat 4:53 PM CDT PT EVAL AND TREAT Routine 03/22/2025 12:[address] CHEST WO CONTRAST Stat 03/22/2025 9:44 AM CDT EXTRA TUBE (URINE CARRANZA) Stat 03/22/20 8:38 AM CDT URINALYSIS W/REFLEX MICROSCOPIC Stat 03/22/2025 8:38 AM CDT POC LACTIC ACID Stat 03/22/2025 4:46 AM CDT BLOOD GAS ARTERIAL Stat 03/22/2025 4:46 AM CDT FERRITIN Routine 03/22/2025 4:36 AM CDT IRON, TIBC, AND PERCENT SATURATION Routine 03/22/2025 4:36 AM CDT TSH Routine 03/22/2025 4:36 AM CDT TROPONIN 6 HR, 5TH GEN Timed Study 4:36 AM CDT XR CHEST PA OR AP 1 VW Stat 12:20 AM CDT TROPONIN BASELINE, 5TH GEN Stat 03/21 10:18 PM CDT BRAIN NATRIURETIC PEPTIDE, B CONVERSION MAN OR PROBNP Stat 03/21/2025 10:18 PM CDT COMPREHENSIVE METABOLIC PANEL Stat 10:18 PM CDT CBC WITH DIFFERENTIAL Stat 03/21/2025 10:18 PM CDT EKG 12-LEAD Stat 03/21/2025 10:11 PM CDT TELEMETRY REPORT 02/20/2025 2:40 PM CDT CBC WITHOUT DIFFERENTIAL Routine 025 3:46 AM CDT BASIC METABOLIC PANEL Routine 02/19/2025 3:45 AM CDT ECHOCARDIOGRAM W/ CONTRAST AGENT Routine 02/18/2025 2:43 PM CDT RT ASSESS AND TREAT Routine 02/18/2025 10:34 AM CDT BASIC METABOLIC PANEL Routine 02/18/2025 5:04 AM CDT BASIC METABOLIC PANEL Routine 02/17/2025 6:46 AM CDT BRAIN NATRIURETIC PEPTIDE, B CONVERSION MAN OR PROBNP Routine 02/17/2025 6:19 AM CDT LIPID PANEL Routine 02/17/2025 6:19 AM CDT COMPREHENSIVE METABOLIC PANEL Routine 6:19 AM CDT CBC WITHOUT DIFFERENTIAL Routine 025 6:19 AM CDT POC GLUCOSE Routine 02/16/2025 6:01 AM CDT POC GLUCOSE Routine 02/15/2025 8:27 PM CDT POC GLUCOSE Routine 02/15/2025 5:08 PM CDT DIRECTOR INVESTMENT BANKING EVALUATE AND TREAT Routine 11:23 AM CDT POC GLUCOSE Routine 02/15/2025 11:07 AM CDT POC GLUCOSE Routine 02/15/2025 7:45 AM CDT PHOSPHORUS Routine 02/15/2025 3:40 AM CDT MAGNESIUM LEVEL Routine 02/15/2025 3:40 AM CDT COMPREHENSIVE METABOLIC PANEL Routine 3:40 AM CDT CBC WITHOUT DIFFERENTIAL Routine 025 3:40 AM CDT POC GLUCOSE Routine 02/15/2025 3:23 AM CDT POC GLUCOSE Routine 02/14/2025 11:20 PM CDT HEMOGLOBIN AND HEMATOCRIT Routine 2024 11:20 PM CDT POC GLUCOSE Routine 02/14/2025 8:28 PM CDT POC GLUCOSE Routine 02/14/2025 5:39 PM CDT HEMOGLOBIN AND HEMATOCRIT Routine 2024 5:31 PM CDT HEMOGLOBIN AND HEMATOCRIT Routine 2024 11:39 AM CDT SPUTUM CULTURE WITH GRAM STAIN Routine 0 02/14/2025 9:40 AM CDT PNEUMONIA PATHOGEN PCR PANEL Routine 9:40 AM CDT EKG 12-LEAD Routine 02/14/2025 5:09 AM CDT POC LACTIC ACID Routine 02/14/2025 4:45 AM CDT BLOOD GAS ARTERIAL Routine 02/14/2025 4:45 AM CDT POC GLUCOSE Routine 02/14/2025 4:15 AM CDT PHOSPHORUS Routine 02/14/2025 4:10 AM CDT MAGNESIUM LEVEL Routine 02/14/2025 4:10 AM CDT TROPONIN 6 HR, 5TH GEN Timed Study 4:10 AM CDT XR CHEST PA OR AP 1 VW Stat 3:22 AM CDT POC ACTIVATED CLOTTING TIME Routine 01/27 2:01 AM CDT IVUS-CORONARY INTRAVASCULAR Routine 01/27 2:00 AM CDT CORONARY ATHERECTOMY Routine 02/14/2025 2:00 AM CDT PERCUTANEOUS CORONARY INTERVENTION Routine 02/14/2025 2:00 AM CDT LEFT HEART CATH Routine 02/14/2025 2:00 AM CDT POC ACTIVATED CLOTTING TIME Routine 01/27 1:47 AM CDT COMPREHENSIVE METABOLIC PANEL Routine 12:31 AM CDT TROPONIN 2 HR, 5TH GEN Timed Study 12:31 AM CDT HEMOGLOBIN AND HEMATOCRIT Routine 2024 12:28 AM CDT PTT Stat 02/14/2025 12:28 AM CDT UNFRACTIONATED HEPARIN ACTIVITY Timed Study 02/14/2025 12:28 AM CDT EKG 12-LEAD Stat 02/14/2025 12:14 AM CDT TYPE AND SCREEN Routine 02/13/2025 11:45 PM CDT COMPREHENSIVE METABOLIC PANEL Stat 11:45 PM CDT CBC WITH DIFFERENTIAL Stat 02/13/2025 11:45 PM CDT TROPONIN BASELINE, 5TH GEN Stat 02/13 11:45 PM CDT COMPREHENSIVE METABOLIC PANEL Routine 3:19 PM CDT LIPID PANEL Routine 02/11/2025 HEMOGLOBIN A1C Routine 02/11/2025 ENDOSCOPY, COLON, SCREENING Routine 06/28 12:39 PM ROBOTYPE OPERATOR from Last 3 Months or Most Recently Relevant to Health Maintenance Results * TELEMETRY REPORT (03/28/2025 9:55 AM CDT) Only the most recent of2 resultswithin the time period is included. us Provider Scanning ECG ORDERABLES Final Result * (ABNORMAL) BASIC METABOLIC PANEL (03/27/2025 4:40 AM CDT) Only the most recent of8 resultswithin the time period is included. SODIUM 140 136 - 145 mmol/L 03/27/2025 5:46 AM CDT [facility] POTASSIUM 4.2 3.5 - 5.1 mmol/L 03/27/2025 5:46 AM CDT [facility] [employer] [facility] Comment:Moderate hemolysis p resent. Can cause significant falsely elevated result. Redraw if indicated. CHLORIDE 101 98 - 107 mmol/L 03/27/2025 5:46 AM CDT [facility] [employer] [facility] CO2 32(H) 22 - 29 mmol/L 03/27/2025 5:46 AM CDT [facility] CALCIUM 8.1(L) 8.8 - 10.2 mg/dL 03/27/2025 5:46 AM CDT [facility] BUN 10 8 - 23 mg/dL 03/27/2025 5:46 AM CDT [facility] CREATININE 0.67 0.67 - 1.17 mg/dL 03/27/2025 5:46 AM CDT [facility] Comment:The GFR result is no t clinically significant on patients <18 or >70 years of age. GLUCOSE 92 74 - 99 mg/dL 03/27/2025 5:46 AM CDT [facility] GFR >60 mL/min/1.7 3 sq meter 03/27/2025 5:46 AM T [facility] Comment:eGFR calculated with 2020 CKD-EPI equation. Vegetarian diet, extremely high or low muscle mass, and may affect results. Cystatin C with Glomerular Filtration Rate is a suitable alternative for these patients. ANION GAP 7(L) 9 - 20 mmol/L 03/27/2025 5:46 AM CDT [facility] Blood Venipuncture / Unknown 03/27/2025 4:40 AM CDT 03/27/2025 5:07 AM CDT us Adilene Trinh NP CHEMISTRY ORDERABLES Final Re sult [facility] CLIA # [id number] [address] [place] [id number] * VANCOMYCIN LEVEL TROUGH (03/26/2025 12:44 PM CDT) VANCOMYCIN, TROUGH 10.6 10.0 - 17.0 ug/mL 03/26/2025 1:24 PM CDT [facility] Blood Venipuncture / Unknown 03/26/2025 12:44 PM CDT 03/26/2025 12:52 PM CDT us Arin Koroma MD CHEMISTRY ORDERABLES Final Resul t [facility] # [id number] [id number] [place] [address] * UPPER ENDOSCOPY REPORT (03/26/2025 10:15 AM CDT) Narrative Procedure Note Tiago Ryan MD - 03/26/2025 10:15 AM CDT [facility] GI Patient Name: Isreal Arguello Procedure Date: 03/26/2025 Date of : 1950 Admit Type: Outpatient Age: 74 Attending MD: Tiago Ryan MD, Procedure: Upper GI endoscopy Indications: Chronic anemia with component of acute blood loss anemia Providers: Tiago Ryan MD Referring MD: Medicines: Monitored Anesthesia Care Complications: No immediate complications. Procedure: Pre-Anesthesia Assessment: - Prior to the procedure, a History and Physical was performed, and patient medications, allergies and sensitivities were reviewed. The patient's tolerance of previous anesthesia was reviewed. - The risks and benefits of the procedure and the sedation options and risks were discussed with the patient. All questions were answered and informed consent was obtained. After obtaining informed consent, the endoscope was passed under direct vision. Throughout the procedure, the patient's blood pressure, pulse, and oxygen saturations were monitored continuously. The Endoscope was introduced through the mouth, and advanced to the second part of duodenum. Estimated Blood Loss: Estimated blood loss was minimal. Findings: The diaphragm is located at 45 cm and the GE junction was located at 41 cm. The esophageal mucosa was unremarkable. There was no blood in the upper intestine. There was nonbleeding gastric antral vascular ectasia this was cauterized with APC on gastric settings. There was a nonbleeding punctate ectasia in the proximal body of the stomach that was cauterized with APC to prevent bleeding. Biopsies were taken of the body, antrum, and incisura. The visualized duodenal mucosa was unremarkable, biopsies were taken of the bulb and second portion of the duodenum Impression: Nonbleeding gastric antral vascular ectasia and nonbleeding punctate ectasia in body of the stomach, cauterized with APC to prevent bleeding 4 cm sliding hiatal hernia Otherwise unremarkable EGD, gastric and duodenal biopsies taken Recommendation: Await pathology PPI x 4 weeks Recommended colonoscopy but patient adamantly declines. Patient expressed understanding of foregoing colonoscopy to include incomplete evaluation and delay in diagnosis of potentially important conditions such as colon cancer Nothing further from inpatient GI standpoint, will sign off Tiago Ryan MD 03/26/2025 10:14:59 AM Number of Addenda: 0 Note Initiated On: 03/26/2025 10:00 AM Scope Withdrawal Time Scope In: Scope Out: [address] [place], [place] Tiago Ryan MD GI PROCEDURE ORDERABLES F inal Result * PATHOLOGY (03/26/2025 10:04 AM CDT) CASE REPORT Surgical Pathology Report Case: [id number] Authorizing Provider: Tiago Ryan MD Collected: 03/26/2025 10:04 AM Ordering Location: [facility] Received: 03/26/2025 01:42 PM Endoscopy Pathologist: Marialuisa Lazcano MD Specimens: A) - Stomach B) - Small Intestine, duodenum 9:52 AM CDT [facility] FINAL DIAGNOSIS A. Stomach, biopsy - Mild chronic gastritis - An immunohistochemical stain for H. pylori was performed on block A1 and is negative / B. Small intestine, duodenum, biopsy - Small intestinal mucosa with increased intraepithelial lymphocytes and preserved villous architecture, see comment Marialuisa Lazcano MD [id number] 9:52 AM CDT [facility] at 0952 CDT DIAGNOSIS COMMENT A. No Helicobacter organisms were identified on routine hematoxylin and eosin stain. The use of ancillary immunohistochemical studies for Helicobacter pylori on block A1 was deemed medically necessary based on mild chronic gastritis and clinical concern to rule out H. pylori. An iron stain is negative. B. The findings in the duodenum are non-specific. The differential diagnosis includes drug effect, infectious etiologies (including bacterial overgrowth), and immune mediated causes (including celiac disease). Clinical and serologic correlation is recommended. 9:52 AM CDT [facility] GROSS DESCRIPTION A. Received in a container of formalin labeled Alannah -stomach rule out H. pylori are multiple fragments of mucosa, 0.8 x 0.6 x 0.2 cm. The specimen is submitted entirely in A1. B. Received in a container of formalin labeled [place] -duodenum rule out celiac are multiple fragments of mucosa, 0.8 x 0.6 x 0.1 cm. The specimen is submitted entirely in B1. Grossed by: Angeline Andrade MS, PA ([facility])CM 9:52 AM CDT [facility] OPERATIVE PROCEDURE 1: ESOPHAGOGASTRODUODENOSCO PY 5 9:52 AM CDT [facility] CLINICAL INFORMATION R/o H Pylori 9:52 AM T [facility] COMMENT The [employer] voice-activated dictation system may have been used in the creation of this report. Inherent to this system is the possibility of errors in syntax, grammar, punctuation, or other areas that could impact interpretation. If there are interpretive questions about the report, please contact the performing pathologist. Unless gross only is specified in the diagnosis, the microscopic examination substantiates the above cited diagnosis. The performance characteristics of all immunohistochemical stains cited in this report (if any) were determined by the Diagnostic Immunohistochemistry Laboratory of [facility] in compliance with CLIA'88 regulations. Some of these tests rely on the use of analyte specific reagents and are subject to specific labeling requirements by the FDA. All controls show appropriate reactivity. This testing was developed by the Diagnostic Immunohistochemistry [facility] of [facility]. It has not been cleared or approved by the FDA. The FDA has determined that such clearance or approval is not necessary. 9:52 AM CDT [facility] Tissue ENTIRE STOMACH / Unknown Collection / Unknown 03/26/2025 10:04 AM CDT 03/26/2025 1:42 PM CDT Comment:R/o H Pylori Tissue specimen (specimen) (Small Intestine) Collection / Unknown 03/26/2025 10:04 AM CDT 03/26/2025 1:42 PM CDT Comment:R/O Celiac Sprue us Tiago Ryan MD PATHOLOGY/CYTOLOGY ORDERA BLES Final Result Performing Organization Address [facility]/ZIP Co de Phone Number [facility] CLIA # [id number] [address] [address] * (ABNORMAL) HEMOGLOBIN AND HEMATOCRIT (03/26/2025 8:46 AM CDT) Only the most recent of7 resultswithin the time period is included. HEMOGLOBIN 7.4(L) 14.0 - 18.0 g/dL 03/26/2025 9:05 AM CDT [facility] HEMATOCRIT 26.3(L) 41.0 - 53.0 % 03/26/2025 9:05 AM CDT [facility] Blood Venipuncture / Unknown 03/26/2025 8:46 AM CDT 03/26/2025 8:57 AM CDT us Arin Koroma MD HEMATOLOGY ORDERABLES Final Resu lt Performing Organization Address [facility]/ZIP Co de Phone Number [facility] CLIA # [id number] [address] [place] [address] * (ABNORMAL) CBC WITH DIFFERENTIAL (03/26/2025 2:06 AM CDT) Only the most recent of6 resultswithin the time period is included. WBC 11.4(H) 4.8 - 10.8 K/uL 03/26/2025 2:18 AM CDT [facility] RBC 2.95(L) 4.60 - 6.20 M/uL 03/26/2025 2:18 AM CDT [facility] HEMOGLOBIN 7.3(L) 14.0 - 18.0 g/dL 03/26/2025 2:18 AM [facility] HEMATOCRIT 25.6(L) 41.0 - 53.0 % 03/26/2025 2:18 AM [facility] MCV 86.8 84.0 - 103.0 fL 03/26/2025 2:18 AM [facility] MCH 24.7(L) 27.0 - 34.0 pg 03/26/2025 2:18 AM [facility] MCHC 28.5(L) 30.0 - 35.0 g/dL 03/26/2025 2:18 AM [facility] PLATELETS 399 140 - 440 K/uL 03/26/2025 2:18 AM [facility] [employer] [facility] MPV 9.2 8.9 - 12.8 fL 03/26/2025 2:18 AM [facility] RDW 18.6(H) 11.0 - 14.5 % 03/26/2025 2:18 AM [facility] [employer] [facility] RDW-STDEV 58.7(H) 37.0 - 54.0 fL 03/26/2025 2:18 AM [facility] NEUTROPHILS 79(H) 42 - 75 % 03/26/2025 2:18 AM [facility] LYMPHOCYTES 11(L) 24 - 44 % 03/26/2025 2:18 AM [facility] MONOCYTES 7 2 - 10 % 03/26/2025 2:18 AM [facility] [employer] [facility] EOSINOPHILS 2 0 - 7 % 03/26/2025 2:18 AM [facility] [employer] [facility] BASOPHILS 1 0 - 1 % 03/26/2025 2:18 AM [facility] IMMATURE GRANULOCYTES 1 0 - 2 % 03/26/2025 2:18 AM [facility] NEUTROPHIL ABSOLUTE 8.93(H) 2.00 - 8.00 K/uL 03/26/2025 2:18 AM [facility] LYMPHOCYTE ABSOLUTE 1.19(L) 1.20 - 4.00 K/uL 03/26/2025 2:18 AM CDT [facility] MONOCYTE ABSOLUTE 0.84(H) 0.10 - 0.60 K/uL 03/26/2025 2:18 AM CDT [facility] EOSINOPHIL ABSOLUTE 0.21 0.00 - 0.70 K/uL 03/26/2025 2:18 AM CDT [facility] BASOPHILS ABSOLUTE 0.06 0.00 - 0.20 K/uL 03/26/2025 2:18 AM CDT [facility] IMMATURE GRANULOCYTES ABSOLUTE 0.15(H) 0.00 - 0.10 K/uL 03/26/2025 2:18 AM CDT [facility] SMEAR REVIEWED: NA - Not Applicable 03/26/2025 2:18 AM CDT [facility] Blood Venipuncture / Unknown 03/26/2025 2:06 AM CDT 03/26/2025 2:09 AM CDT us Adilene Trinh CONVERSION MAN HEMATOLOGY ORDERABLES Final R esult [facility] CLIA # [id number] [address] [place] [address] * LEGIONELLA ANTIGEN, URINE (03/25/2025 2:47 PM CDT) LEGIONELLA AG, URINE NOT DETECTED Not Detected 03/25/2025 3:56 PM CDT [facility] Urine URINE SPECIMEN OBTAINED BY CLEAN CATCH PROCEDURE / Unknown Collection / Unknown 03/25/2025 2:47 PM CDT 03/25/2025 2:52 PM CDT [facility] - 03/25/2025 3:56 PM CDT This test will not detect infections caused by Legionella species other than L. pneumophila serogroup 1. A negative antigen result does not exclude infection with L. pneumophila serogroup 1. Culture is recommended for suspected pneumoniae to detect causative agents other than L. pneumophila serogroup 1 and to recover L. pneumophila serogroup 1 when antigen is not detected in urine. Arin Koroma MD MICROBIOLOGY - GENERAL ORDERABLE S Final Result Performing Organization Address [facility]/ZIP Co de Phone Number [facility] CLIA # [id number] [address] [place] [address] * STREPTOCOCCUS PNEUMONIAE ANTIGEN (03/25/2025 2:47 PM CDT) [facility] STREPTOCOCCUS PNEUMONIAE AG NOT DETECTED Not Detected 03/25/2025 3:55 PM CDT [facility] Urine URINE SPECIMEN OBTAINED BY CLEAN CATCH PROCEDURE / Unknown Collection / Unknown 03/25/2025 2:47 PM CDT 03/25/2025 2:52 PM CDT Arin Koroma MD MICROBIOLOGY - GENERAL ORDERABLE S Final Result Performing Organization Address [facility] de Phone Number [facility] CLIA # [id number] [address] [place] [address] * PERIPHERAL BLOOD SMEAR PATHOLOGY INTERP (03/25/2025 5:01 AM CDT) [facility] PERIPHERAL BLOOD SMEAR INTERP See Interpretation Below 03/26/2025 11:26 AM CDT [facility] INTERPRETED BY: Axel Keating MD 03/26/2025 11:26 AM CDT [facility] Blood Venipuncture / Unknown 03/25/2025 5:01 AM CDT 03/25/2025 5:18 AM CDT Narrative [facility] - 03/26/2025 11:26 AM CDT CLINICAL INFORMATION: 74-year-old male with history of COPD, presenting with acute on chronic hypoxic respiratory failure and septic shock, noted to have chronic leukocytosis. WBCs: Leukocytosis with moderate absolute neutrophilia and mild absolute monocytosis. There is also mild absolute lymphocytopenia. Reactive changes are noted. Dysplastic features or blasts are not observed. RBCs: Normocytic hypochromic anemia with moderate anisocytosis. PLATELETS: Adequate, with unremarkable morphology. COMMENT: The WBC morphology is suggestive of reactive leukocytosis, which may be secondary to the patient's underlying COPD, and/or current acute illness. The red cell morphology is highly suggestive of iron deficiency anemia. Correlation with clinical and other laboratory data is recommended. Reviewed by Chetan Keating MD Arin Koroma MD HEMATOLOGY ORDERABLES Final Resu lt Performing Organization Address [facility] Co de Phone Number [facility] CLIA # [id number] [address] [address] [place] [address] * POC GLUCOSE (03/24/2025 1:01 PM CDT) Only the most recent of17 resultswithin the time period is included. Pathologist [facility] GLUCOSE POC 90 74 - 99 mg/dL 03/24/2025 1:01 PM CDT [facility] SPECIMEN SOURCE, GLUCOSE POC Capillary 03/24/2025 1:01 PM CDT [facility] Blood, whole 03/24/2025 1:01 PM CDT 03/24/2025 1:10 PM CDT us Cal Garcia III, DO POINT OF CARE TESTING Fin al Result Performing Organization Address [facility] de Phone Number [facility] CLIA # [id number] [address] [place] [address] * TRANSFUSE EMERGENCY RELEASE/DOWNTIME RED BLOOD CELLS (03/24/2025 12:50 PM CDT) us Cal Garcia III, DO BLOOD TRANSFUSION ORDERAB LES Final Result * (ABNORMAL) MRSA PCR RAPID SCREEN (03/24/2025 9:28 AM CDT) Pathologist [facility] MRSA PCR RESULT MRSA detected( A) MRSA not detected 03/24/2025 10:44 AM CDT [facility] Surveillance ANTERIOR NARES SWAB / Unknown Collection / Unknown 03/24/2025 9:28 AM CDT 03/24/2025 9:31 AM CDT Narrative [facility] - 03/24/2025 10:44 AM CDT Positive MRSA called to Susy Berkowitz RN by Jose L Vega on 03/24/2025 at 10:43 AM with verbal readback. us Adilene Trnih CONVERSION MAN MICROBIOLOGY - GENERAL ORDERA BLES Final Result Performing Organization Address [facility]/ZIP Co de Phone Number [facility] CLIA # [id number] [address] [facility] [place] [address] * MAGNESIUM LEVEL (03/24/2025 4:41 AM CDT) Only the most recent of3 resultswithin the time period is included. MAGNESIUM 2.4 1.6 - 2.4 mg/dL 03/24/2025 5:43 AM CDT [facility] Blood Venipuncture / Unknown 03/24/2025 4:41 AM CDT 03/24/2025 5:00 AM CDT us Azul Wilkerson CONVERSION MAN CHEMISTRY ORDERABLES Final Re sult Performing Organization Address City/[facility]/ZIP Co de Phone Number [facility] CLIA # [id number] [address] [place] [facility] [place], [place] [address] * CORTISOL LEVEL (03/24/2025 4:41 AM CDT) CORTISOL LEVEL 13.5 ug/dL 03/24/2025 5:43 AM CDT [facility] Comment: Cortisol Reference Range Morning Hours 6-10 a.m. 6.0-18.4 ug/dL Afternoon Hours 4-8 p.m. 2.7-10.5 ug/dL Blood Venipuncture / Unknown 03/24/2025 4:41 AM CDT 03/24/2025 5:00 AM CDT Azul Wilkerson NP CHEMISTRY ORDERABLES Final Re sult Performing Organization Address [facility] de Phone Number [facility] CLIA # [id number] [address] [facility] [place] [address] * VANCOMYCIN LEVEL RANDOM (03/24/2025 4:41 AM CDT) Pathologist [facility] VANCOMYCIN, RANDOM 10.2 5.0 - 50.0 ug/mL 03/24/2025 5:43 AM CDT [facility] Blood Venipuncture / Unknown 03/24/2025 4:41 AM CDT 03/24/2025 5:00 AM CDT Narrative [facility] - 03/24/2025 5:43 AM CDT Vancomycin Therapeutic Ranges: Vancomycin Trough: 10 - 20 mcg/mL Vancomycin Peak: 25 - 50 mcg/mL Jaime Ruggiero MD CHEMISTRY ORDERABLES Final R esult Performing Organization Address [facility] Co de Phone Number [facility] CLIA # [id number] [address] [address] * BLOOD CULTURE (03/23/2025 10:03 PM CDT) Only the most recent of2 resultswithin the time period is included. Pathologist [facility] BLOOD CULTURE No growth 03/29/2025 3:34 AM CDT [facility] Blood (Peripheral) Venipuncture / Unknown 03/23/2025 10:03 PM CDT 03/23/2025 10:06 PM CDT Narrative [facility] - 03/29/2025 3:34 AM CDT Specimen processed with suboptimal blood volume collected. us Tequila Nobles MD MICROBIOLOGY - GENERAL ORDERABLES Final Result [facility] CLIA # [id number] [facility] [address] * RESPIRATORY PATHOGEN PCR PANEL (03/23/2025 1:59 PM CDT) [facility] Respiratory Pathogen PCR Panel NOT DETECTED No respiratory pathogen nucleic acids detected. 03/23/2025 3:25 PM CDT [facility] COVID-19 PCR NOT DETECTED Not Detected 03/23/2025 3:25 PM CDT [facility] Upper Respiratory ENTIRE NASOPHARYNX / Unknown Collection / Unknown 03/23/2025 1:59 PM CDT 03/23/2025 2:09 PM CDT Narrative [facility] - 03/23/2025 3:25 PM CDT The Film Array Respiratory Panel (RP2.1) is a multiplex nucleic acid detection test for 22 targets. Viruses: Adenovirus Coronavirus HKU1, NL63, 229E, and OC43 COVID-19/Severe Acute Respiratory Syndrome Coronavirus 2 Influenza A with the following subtypes: H1, H1-2009, and H3 Influenza B Human Metapneumovirus Parainfluenza virus 1, 2, 3, and 4 Respiratory Syncytial virus (RSV) Rhinovirus/Enterovirus (cannot differentiate due to genetic similarities) Bacteria: Bordetella pertussis Bordetella parapertussis Chlamydophila pneumoniae Mycoplasma pneumoniae Azul Wilkerson NP MICROBIOLOGY - GENERAL ORDERA BLES Final Result [facility] CLIA # [id number] [address] [place] [address] * ECHOCARDIOGRAM W/ CONTRAST AGENT (03/23/2025 10:23 AM CDT) Only the most recent of2 resultswithin the time period is included. EJECTION FRACTION 31 INTERFACE SYSTEM 03/23/2025 9:35 AM CDT Narrative INTERFACE SYSTEM - 03/23/2025 11:19 AM CDT [facility] Cardiovascular Services Echocardiography Laboratory [facility] [place] [address] Transthoracic Echocardiography Patient: Isreal Arguello Study ID: ECHO COMPLETE - R Gender: M : 1950 Age: 74 Room: [facility] Study 03/23/2025 Pt Inpatient Date: Status: Study 09:35:52 AM CSN #: [id number] Time: Ordering:Azul Wilkerson (student) Computer Network Specialist: Angeline Silva Indications and History: Chest pain. Coronary artery disease. Summary and Conclusion: - Left ventricle: Not well visualized. The cavity size is mildly dilated. Wall thickness is normal. Global systolic function is moderately reduced. For Epic reporting: the left ventricular ejection fraction is 31% by biplane method of disks. Appears to be hypokinesis of the basalinferior wall. Hypokinesis of the mid-apicalanterolateral wall. Cannot exclude hypokinesis of the inferolateral wall. Grade II diastolic dysfunction. - Right ventricle: Not well visualized. The cavity size is normal. Systolic function is low normal. - Left atrium: The atrium is mildly dilated. - Aortic valve: The leaflets are thickened and mildly calcified. There is moderate stenosis. The peak systolic velocity is 222.45cm/sec. The mean systolic gradient is 11mm Hg. - Mitral valve: There is trivial to mild regurgitation. - Tricuspid valve: Not well visualized. - Pulmonic valve: Not well visualized. - Pericardium: A very small pericardial effusion is identified. Impressions: Images are technically difficult however may not be much different from prior echo report. Procedure information: Comparison is made to the study of 02/18/2025. Study status: STAT. Procedure: A transthoracic echocardiogram was performed. Image quality was adequate. The study was technically limited due to poor acoustic window availability. Scanning was performed from the parasternal, apical, subcostal, and suprasternal notch acoustic windows. Intravenous contrast (Definity) was administered. There were no complications. There were no contrast reactions. Contrast study performed to evaluate left ventricular endocardial borders due to suboptimal non-contrast images. Study components: M-mode, 2D, complete spectral Doppler, and color Doppler. Height: 182.9cm. Height: 72in. Weight: 135.5kg. Weight: 298.7lb. BMI: 40.5kg/m^2. BSA: 2.68m^2. Blood pressure: 102/58 Study date: 03/23/2025. Study time: 09:35 AM. Location: ICU/CCU Cardiac Anatomy: LEFT VENTRICLE: Not well visualized. The cavity size is mildly dilated. Wall thickness is normal. Global systolic function is moderately reduced. For Epic reporting: the left ventricular ejection fraction is 31% by biplane method of disks. Regional wall motion abnormalities: Appears to be hypokinesis of the basalinferior wall. Hypokinesis of the mid-apicalanterolateral wall. Cannot exclude hypokinesis of the inferolateral wall. Grade II diastolic dysfunction. RIGHT VENTRICLE: Not well visualized. The cavity size is normal. Systolic function is low normal. LEFT ATRIUM: The atrium is mildly dilated. RIGHT ATRIUM: The atrium is normal in size. ATRIAL SEPTUM: Not well visualized. AORTIC VALVE: Not well visualized. The leaflets are thickened and mildly calcified. Mobility is restricted. There is moderate stenosis. There is no significant regurgitation. MITRAL VALVE: Mobility is not restricted. No evidence for prolapse. There is no evidence for stenosis. There is trivial to mild regurgitation. TRICUSPID VALVE: Not well visualized. Mobility is unrestricted. There is no evidence for stenosis. PULMONIC VALVE: Not well visualized. There is no evidence for stenosis. There is no significant regurgitation. PERICARDIUM: A very small pericardial effusion is identified. AORTA: Aortic root: The root is not dilated. Measurements Left ventricle Value Right ventricle continued Value WILL, LAX 6.0 cm TAPSE, 2D 2.2 cm ESD, LAX 5.0 cm TAPSE, MM 2.2 cm WILL/bsa, LAX 2.3 cm/m^2 S' lateral 15.4 cm/sec ESD/bsa, LAX 1.9 cm/m^2 FS, LAX 17 % Left atrium Value FS, LAX chord 17 % AP dim, ES 4.2 cm ESD major ax, A4C 9.5 cm AP dim index, ES 1.6 cm/m^2 ESD/bsa major ax, A4C 3.6 cm/m^2 SI dim, A4C 5.6 cm WILL minor ax, A4C 9.5 cm Area ES, A4C 24 cm^2 WILL/bsa minor ax, A4C 3.6 cm/m^2 Vol, S 93 ml WILL major ax, A2C 10.4 cm Vol/bsa, S 35 ml/m^2 ESD major ax, A2C 9.2 cm Vol, ES, 1-p A4C 78 ml WILL/bsa major ax, A2C 3.9 cm/m^2 Vol/bsa, ES, 1-p A4C 29 ml/m^2 ESD/bsa major ax, A2C 3.4 cm/m^2 Vol, ES, 1-p A2C 90 ml IVS, ED 0.7 cm Vol/bsa, ES, 1-p A2C 33 ml/m^2 ESD 5.0 cm Vol, ES, 2-p 85 ml ESD/bsa 1.9 cm/m^2 Vol/bsa, ES, 2-p 32 ml/m^2 FS 17 % Vol, ES, A/L 87 ml PW, ED 0.9 cm Vol/bsa, ES, A/L 32 ml/m^2 IVS/PW, ED 0.76 EDV, 1-p A2C 227 ml Right atrium Value ESV, 1-p A2C 69 ml Area, ES 13 cm^2 EF, 1-p A2C 30 % Area, ES, A4C 13 cm^2 EDV/bsa, 1-p A2C 85 ml/m^2 ESV/bsa, 1-p A2C 26 ml/m^2 Aortic valve Value EDV, 1-p A4C 245 ml Peak v, S 222.45 cm/sec ESV, 1-p A4C 167 ml Mean v, S 162.35 cm/sec EF, 1-p A4C 32 % VTI, S 47.3 cm SV, 1-p A4C 78 ml Mean grad, S 11 mm Hg EDV/bsa, 1-p A4C 91 ml/m^2 Peak grad, S 20 mm Hg ESV/bsa, 1-p A4C 62 ml/m^2 LVOT/AV, VTI ratio 0.43 SV/bsa, 1-p A4C 29 ml/m^2 ANUEL, VTI 1.37 cm^2 EDV, 2-p 239 ml ANUEL/bsa, VTI 0.51 cm^2/m^2 ESV, 2-p 166 ml LVOT/AV, Vpeak ratio 0.45 EF, 2-p 31 % ANUEL, Vmax 1.4 cm^2 SV, 2-p 159 ml ANUEL/bsa, Vmax 0.52 cm^2/m^2 EDV/bsa, 2-p 89 ml/m^2 LVOT/AV, Vmean ratio 0.44 ESV/bsa, 2-p 62 ml/m^2 ANUEL, Vmean 1.4 cm^2 SV/bsa, 2-p 59.2 ml/m^2 ANUEL/bsa, Vmean 0.51 cm^2/m^2 E', lat shannon, TDI 5.0 cm/sec E/e', lat shannon, TDI 21 Mitral valve Value E', med shannon, TDI 5.2 cm/sec Mean v, D 62.67 cm/sec E/e', med shannon, TDI 20 Peak E 103.48 cm/sec E', avg, TDI 5.1 cm/sec Peak A 97.88 cm/sec E/e', avg, TDI 20 VTI leaflet coapt 34.2 cm MiV/LVOT VTI 1.7 LVOT Value Decel slope 573.66 cm/s^2 Diam, S 2.0 cm Decel time 180 ms Area 3.1 cm^2 PHT 65 ms Peak henrry, S 99.16 cm/sec Mean grad, D 2 mm Hg Mean henrry, S 71.23 cm/sec Peak grad, D 5 mm Hg VTI, S 20.5 cm Peak E/A ratio 1.06 Peak grad, S 4 mm Hg MVA 1.89 cm^2 Mean grad, S 2 mm Hg MVA/bsa 0.7 cm^2/m^2 SV 65 ml MVA, PHT 3.39 cm^2 Qs 4.4 L/min MVA/bsa, PHT 1.26 cm^2/m^2 Qs/bsa 1.7 L/(min-m^2) MVA, LVOT cont 1.9 cm^2 SV/bsa 24 ml/m^2 MVA/bsa, LVOT cont 0.7 cm^2/m^2 Vena contracta width 2.9 cm Right ventricle Value WILL, LAX 2.9 cm Ascending aorta Value WILL, SAX 3.0 cm AAo AP diam, S 3.3 cm WILL minor ax, A4C 3.0 cm AAo AP diam/bsa, S 1.2 cm/m^2 WILL 2.9 cm Legend: (L) and (H) odalis values outside specified reference range. [facility] are accredited with the Intersocietal Accreditation Commission - Echocardiography. Prepared and Electronically Authenticated Jose Smith MD Confirmed 03/23/2025 11:19 Procedure Note Jose Smith MD - 03/23/2025 [facility] Cardiovascular Services Echocardiography Laboratory [address] [place] [address] Transthoracic Echocardiography Patient: Isreal Arguello Study ID: ECHO COMPLETE- R Gender: Mary : 1950 Age: 74 Room: [facility] Study 03/23/2025 Pt Inpatient Date: Status: Study 09:35:52 AM [facility] #: [id number] Time: Ordering:Sierra, Azul E (student) Computer Network Specialist: Angeline Silva Indications and History: Chest pain. Coronary artery disease. Summary and Conclusion: - Left ventricle: Not well visualized. The cavity size is mildly dilated.Wall thickness is normal. Global systolic function is moderately reduced.For Epic reporting: the left ventricular ejection fraction is 31% bybiplane method of disks. Appears to be hypokinesis of the basalinferior wall. Hypokinesis of the mid-apicalanterolateral wall. Cannot excludehypokinesis of the inferolateral wall. Grade II diastolic dysfunction. - Right ventricle: Not well visualized. The cavity size is normal.Systolic function is low normal. - Left atrium: The atrium is mildly dilated. - Aortic valve: The leaflets are thickened and mildly calcified. Thereis moderate stenosis. The peak systolic velocity is 222.45cm/sec. Themean systolic gradient is 11mm Hg. - Mitral valve: There is trivial to mild regurgitation. - Tricuspid valve: Not well visualized. - Pulmonic valve: Not well visualized. - Pericardium: A very small pericardial effusion is identified. Impressions: Images are technically difficult however may not be much different from prior echo report. Procedure information: Comparison is made to the study of 02/18/2025.Study status: STAT. Procedure: A transthoracic echocardiogram wasperformed. Image quality was adequate. The study was technically limited due topoor acoustic window availability. Scanning was performed from theparasternal, apical, subcostal, and suprasternal notch acoustic windows. Intravenous contrast (Definity) was administered. There were no complications. Therewere no contrast reactions. Contrast study performed to evaluate leftventricular endocardial borders due to suboptimal non-contrast images.Study components: M-mode, 2D, complete spectral Doppler, and color Doppler. Height: 182.9cm. Height: 72in. Weight: 135.5kg. Weight: 298.7lb.BMI: 40.5kg/m^2. BSA: 2.68m^2. Blood pressure: 102/58 Studydate: 03/23/2025. Study time: 09:35 AM. Location: ICU/CCU Cardiac Anatomy: LEFT VENTRICLE: Not well visualized. The cavity size is mildly dilated.Wall thickness is normal. Global systolic function is moderately reduced. ForEpic reporting: the left ventricular ejection fraction is 31% by biplane methodof disks. Regional wall motion abnormalities: Appears to be hypokinesis ofthe basalinferior wall. Hypokinesis of the mid-apicalanterolateral wall.Cannot exclude hypokinesis of the inferolateral wall. Grade II diastolicdysfunction. RIGHT VENTRICLE: Not well visualized. The cavity size is normal.Systolic function is low normal. LEFT ATRIUM: The atrium is mildly dilated. RIGHT ATRIUM: The atrium is normal in size. ATRIAL SEPTUM: Not well visualized. AORTIC VALVE: Not well visualized. The leaflets are thickened andmildly calcified. Mobility is restricted. There is moderate stenosis. There isno significant regurgitation. MITRAL VALVE: Mobility is not restricted. No evidence for prolapse.There is no evidence for stenosis. There is trivial to mild regurgitation. TRICUSPID VALVE: Not well visualized. Mobility is unrestricted. There isno evidence for stenosis. PULMONIC VALVE: Not well visualized. There is no evidence forstenosis. There is no significant regurgitation. PERICARDIUM: A very small pericardial effusion is identified. AORTA: Aortic root: The root is not dilated. Measurements Left ventricle Value Right ventricle continuedValue WILL, LAX 6.0 cm TAPSE, 2D 2.2cm ESD, LAX 5.0 cm TAPSE, MM 2.2cm WILL/bsa, LAX 2.3 cm/m^2 S' lateral 15.4cm/sec ESD/bsa, LAX 1.9 cm/m^2 FS, LAX 17 % Left atriumValue FS, LAX chord 17 % AP dim, ES 4.2cm ESD major ax, A4C 9.5 cm AP dim index, ES 1.6cm/m^2 ESD/bsa major ax, A4C 3.6 cm/m^2 SI dim, A4C 5.6cm WILL minor ax, A4C 9.5 cm Area ES, A4C 24cm^2 WILL/bsa minor ax, A4C 3.6 cm/m^2 Vol, S 93ml WILL major ax, A2C 10.4 cm Vol/bsa, S 35ml/m^2 ESD major ax, A2C 9.2 cm Vol, ES, 1-p A4C 78ml WILL/bsa major ax, A2C 3.9 cm/m^2 Vol/bsa, ES, 1-p A4C 29ml/m^2 ESD/bsa major ax, A2C 3.4 cm/m^2 Vol, ES, 1-p A2C 90ml IVS, ED 0.7 cm Vol/bsa, ES, 1-p A2C 33ml/m^2 ESD 5.0 cm Vol, ES, 2-p 85ml ESD/bsa 1.9 cm/m^2 Vol/bsa, ES, 2-p 32ml/m^2 FS 17 % Vol, ES, A/L 87ml PW, ED 0.9 cm Vol/bsa, ES, A/L 32ml/m^2 IVS/PW, ED 0.76 EDV, 1-p A2C 227 ml Right atriumValue ESV, 1-p A2C 69 ml Area, ES 13cm^2 EF, 1-p A2C 30 % Area, ES, A4C 13cm^2 EDV/bsa, 1-p A2C 85 ml/m^2 ESV/bsa, 1-p A2C 26 ml/m^2 Aortic valveValue EDV, 1-p A4C 245 ml Peak v, S222.45 cm/sec ESV, 1-p A4C 167 ml Mean v, S162.35 cm/sec EF, 1-p A4C 32 % VTI, S 47.3cm SV, 1-p A4C 78 ml Mean grad, S 11mm Hg EDV/bsa, 1-p A4C 91 ml/m^2 Peak grad, S 20mm Hg ESV/bsa, 1-p A4C 62 ml/m^2 LVOT/AV, VTI ratio0.43 SV/bsa, 1-p A4C 29 ml/m^2 ANUEL, VTI 1.37cm^2 EDV, 2-p 239 ml ANUEL/bsa, VTI 0.51cm^2/m^2 ESV, 2-p 166 ml LVOT/AV, Vpeak ratio0.45 EF, 2-p 31 % ANUEL, Vmax 1.4cm^2 SV, 2-p 159 ml ANUEL/bsa, Vmax 0.52cm^2/m^2 EDV/bsa, 2-p 89 ml/m^2 LVOT/AV, Vmean ratio0.44 ESV/bsa, 2-p 62 ml/m^2 ANUEL, Vmean 1.4cm^2 SV/bsa, 2-p 59.2 ml/m^2 ANUEL/bsa, Vmean 0.51cm^2/m^2 E', lat shannon, TDI 5.0 cm/sec E/e', lat shannon, TDI 21 Mitral valveValue E', med shannon, TDI 5.2 cm/sec Mean v, D62.67 cm/sec E/e', med shannon, TDI 20 Peak E103.48 cm/sec E', avg, TDI 5.1 cm/sec Peak A97.88 cm/sec E/e', avg, TDI 20 VTI leaflet coapt 34.2cm MiV/LVOT VTI1.7 LVOT Value Decel skpoe541.66 cm/s^2 Diam, S 2.0 cm Decel time 180ms Area 3.1 cm^2 PHT 65ms Peak henrry, S 99.16 cm/sec Mean grad, D 2mm Hg Mean henrry, S 71.23 cm/sec Peak grad, D 5mm Hg VTI, S 20.5 cm Peak E/A ratio1.06 Peak grad, S 4 mm Hg MVA 1.89cm^2 Mean grad, S 2 mm Hg MVA/bsa 0.7cm^2/m^2 SV 65 ml MVA, PHT 3.39cm^2 Qs 4.4 L/min MVA/bsa, PHT 1.26cm^2/m^2 Qs/bsa 1.7 L/(min-m^2) MVA, LVOT cont 1.9cm^2 SV/bsa 24 ml/m^2 MVA/bsa, LVOT cont 0.7cm^2/m^2 Vena contracta width 2.9cm Right ventricle Value WILL, LAX 2.9 cm Ascending aortaValue WILL, SAX 3.0 cm AAo AP diam, S 3.3cm WILL minor ax, A4C 3.0 cm AAo AP diam/bsa, S 1.2cm/m^2 WILL 2.9 cm Legend: (L) and (H) odalis values outside specified reference range. [facility] are accredited with theIntersocietal Accreditation Commission - Echocardiography. Prepared and Electronically Authenticated Jose Smith MD Confirmed 03/23/2025 11:19 Azul Wilkerson NP US ORDERABLES Final Result INTERFACE SYSTEM Refer to clinic/hospital department * (ABNORMAL) AMMONIA LEVEL (03/23/2025 9:23 AM CDT) AMMONIA 15.5(L) 16.0 - 60.0 umol/L 03/23/2025 9:53 AM CDT [facility] Blood, venous Venipuncture / Unknown 03/23/2025 9:23 AM CDT 03/23/2025 9:27 AM CDT Azul Wilkerson NP CHEMISTRY ORDERABLES Final Re sult Performing Organization Address [facility] de Phone Number [facility] CLIA # [id number] [address] [place] [address] * XR CHEST PA OR AP 1 VW (03/23/2025 7:29 AM CDT) Only the most recent of4 resultswithin the time period is included. Anatomical Region Laterality Modality Chest Computed Radiogr aphy 03/23/2025 7:29 AM CDT Impressions 03/23/2025 8:05 AM CDT IMPRESSION: Minimal bibasilar atelectasis. Mild bilateral interstitial prominence that may represent edema. Pulmonary venous hypertension. Remainder unremarkable. Narrative 03/23/2025 8:05 AM CDT Exam: Radiographs: XR CHEST PA OR AP 1 VW Indication: Acute congestive heart failure, unspecified heart failure type (CMS/HCC); Chronic obstructive pulmonary disease, unspecified COPD type (CMS/HCC) Comparison: Chest x-ray from yesterday Procedure Note Jerry Lockwood MD - 03/23/2025 Exam: Radiographs: XR CHEST PA OR AP 1 VW Indication: Acute congestive heart failure, unspecified heart failure type (CMS/HCC); Chronic obstructive pulmonary disease, unspecified COPD type (CMS/HCC) Comparison: Chest x-ray from yesterday IMPRESSION: Minimal bibasilar atelectasis. Mild bilateral interstitial prominence that may represent edema. Pulmonary venous hypertension. Remainder unremarkable. Azul Wilkerson CONVERSION MAN DIAGNOSTIC IMAGING ORDERABLES Final Result * POC LACTIC ACID (03/23/2025 7:08 AM CDT) Only the most recent of4 resultswithin the time period is included. LACTIC ACID POC 2.0 <=2.0 mmol/L 03/23/2025 7:08 AM CDT [facility] SPECIMEN SOURCE, GASES POC Arterial 03/23/2025 7:08 AM CDT [facility] PUNC SITE POC ART PUNCT 03/23/2025 7:08 AM CDT [facility] Blood 03/23/2025 7:08 AM CDT 03/23/2025 7:11 AM CDT Narrative [facility] - 03/23/2025 7:08 AM CDT References ranges displayed are for Arterial samples. Cal Garcia III, DO POINT OF CARE TESTING Fin al Result [facility] CLIA # [id number] [address] [place] [address] * (ABNORMAL) BLOOD GAS ARTERIAL (03/23/2025 7:08 AM CDT) Only the most recent of4 resultswithin the time period is included. PH BLOOD POC 7.43 7.35 - 7.45 03/23/2025 7:08 AM CDT [facility] PCO2 POC 55(H) 35 - 45 mm Hg 03/23/2025 7:08 AM CDT [facility] PO2 POC 128(H) 80 - 105 mm Hg 03/23/2025 7:08 [facility] H[facility]3 (CALC) POC 37(H) 22 - 26 mmol/L 03/23/2025 7:08 AM [facility] HEMOGLOBIN POC 7.6(L) 12.0 - 18.0 g/dL 03/23/2025 7:08 AM [facility] BASE EXCESS POC 12(H) -2 - 3 mmol/L 03/23/2025 7:08 AM [facility] O2 SATURATION POC 100(H) 95 - 98 % 03/23/2025 7:08 AM [facility] SODIUM POC 139 138 - 146 mmol/L 03/23/2025 7:08 AM [facility] POTASSIUM POC 4.1 3.5 - 4.9 mmol/L 03/23/2025 7:08 AM [facility] HEMATOCRIT POC 23(L) 38 - 51 % 03/23/2025 7:08 AM [facility] PH TEMP CORRECT 7.43 7.35 - 7.45 03/23/20 7:08 AM [facility] PCO2 TEMP CORRECT 55(H) 35 - 45 mm Hg 03/23/2025 7:08 AM [facility] PO2 TEMP CORRECT 128(H) 80 - 105 mm Hg 03/23/2025 7:08 AM [facility] SPECIMEN SOURCE, GASES POC Arterial 03/23/2025 7:08 AM [facility] CALCIUM IONIZED POC 4.4(L) 4.8 - 5.2 mg/dL 03/23/2025 7:08 AM [facility] TCO2 (CALC) POC 38(H) 23 - 27 mmol/L 03/23/2025 7:08 AM [facility] PUNC SITE POC ART PUNCT 03/23/2025 7:08 AM [facility] VENT MODE POC BiPAP 03/23/2025 7:08 AM [facility] PATIENT'S TEMPERATURE POC 37.0 degrees 03/23/2025 7:08 AM [facility] Blood, arterial 03/23/2025 7 :08 AM CDT 03/23/2025 7:11 AM CDT us Cal Garcia III, DO ABG ORDERABLES Final Res ult Performing Organization Address [facility] de Phone Number [facility] CLIA # [id number] [address] [address] * LACTIC ACID (03/23/2025 5:26 AM CDT) LACTIC ACID 2.0 <=2.0 mmol/L 03/23/2025 5:58 AM CDT [facility] Blood Venipuncture / Unknown 03/23/2025 5:26 AM CDT 03/23/2025 5:34 AM CDT us Lenora Purdy [employer]OR AUTOMATION MANAGER CHEMISTRY ORDERABLES Fi nal Result Performing Organization Address [facility] Co de Phone Number [facility] CLIA # [id number] [facility] [address] * (ABNORMAL) PROCALCITONIN (03/23/2025 5:16 AM CDT) PROCALCITONIN 54.34(H) <=0.08 ng/mL 03/23/2025 6:31 AM CDT [facility] Blood Venipuncture / Unknown 03/23/2025 5:16 AM CDT 03/23/2025 5:41 AM CDT Narrative [facility] - 03/23/2025 6:31 AM CDT The utility of procalcitonin is limited/NOT recommended in certain populations (e.g. newborns, dialysis/ESRD, patients with recent major surgery/trauma/rodrigues, liver cirrhosis, viral hepatitis, certain cancers, etc.). Procalcitonin levels MUST be interpreted in the context of the patient's clinical condition and CANNOT be solely relied upon for diagnosis of infection. <0.25 ng/mL: Bacterial infection unlikely, particularly lower respiratory tract infections. <0.5 ng/mL: Low risk for progression to severe sepsis/septic shock. Localized infection possible. Measurements done early (<6 hours) after systemic process starts may still be low. 0.5-2 ng/mL: Moderate risk for progression to severe sepsis/septic shock. >2 ng/mL: High risk for progression to severe sepsis/septic shock. If antibiotics ARE administered, repeat testing is recommended every 2-3 days to help guide antibiotic cessation. Once a decrease of 80% or more has occurred from baseline, discontinuation of antibiotics should strongly be considered in clinically stable patients. Procalcitonin is produced in the setting of systemic inflammation, particularly bacterial infections. It is detectable within 2-4 hours and peaks within 6-24 hours. Lenora Purdy [facility] CHEMISTRY ORDERABLES [facility] Result [facility] CLIA # [id number] [facility] [id number] * (ABNORMAL) BASIC METABOLIC PANEL PLUS (ADD ON CMP TO BMP) (03/23/2025 5:16 AM CDT) Pathologist [facility] TOTAL PROTEIN 7.9 6.4 - 8.3 g/dL 03/23/2025 7:51 AM T [facility] ALBUMIN 2.8(L) 3.5 - 5.2 g/dL 03/23/2025 7:51 AM CDT [facility] BILIRUBIN TOTAL 0.5 0.0 - 1.0 mg/dL 03/23/2025 7:51 AM CDT [facility] ALKALINE PHOSPHATASE 171(H) 40 - 129 U/L 03/23/2025 7:51 AM CDT [facility] AST 16 10 - 50 U/L 03/23/2025 7:51 AM CDT [facility] ALT 8 <=50 U/L 03/23/2025 7:51 AM CDT [facility] Blood Venipuncture / Unknown 03/23/2025 5:16 AM CDT 03/23/2025 5:41 AM CDT Azul Wilkerson CONVERSION MAN CHEMISTRY ORDERABLES Final Re sult [facility] CLIA # [id number] [address] [address] [place] [address] * TYPE AND SCREEN (03/23/2025 5:16 AM CDT) Only the most recent of2 resultswithin the time period is included. ABO GROUP O 03/23/2025 7:31 AM CDT [facility] [employer] [facility] [place] RH (D) TYPE Positive 03/23/2025 7:31 AM CDT [facility] [place] [place] ANTIBODY SCREEN Negative 03/23/2025 7:31 AM CDT [facility] Blood Venipuncture / Unknown 03/23/2025 5:16 AM CDT 03/23/2025 5:34 AM CDT Lenora Purdy [employer]OMATION MANAGER BLOOD BANK ORDERABLES E dited Result - Final [facility] CLIA#[id number] [facility] [place] [address], * (ABNORMAL) C-REACTIVE PROTEIN (03/23/2025 5:16 AM CDT) CRP 60.9(H) 0.0 - 5.0 mg/L 03/23/2025 12:30 PM CDT [facility] Blood Venipuncture / Unknown 03/23/2025 5:16 AM CDT 03/23/2025 5:41 AM CDT Azul Wilkerson CONVERSION MAN CHEMISTRY ORDERABLES Final Re sult Performing Organization Address [facility] de Phone Number [facility] [employer] [facility] CLIA # [id number] [address] [address] * (ABNORMAL) T4 FREE (03/23/2025 5:16 AM CDT) Pathologist [facility] T4 FREE 0.72(L) 0.81 - 1.70 ng/dL 03/23/2025 2:20 PM CDT [facility] [place] Blood Venipuncture / Unknown 03/23/2025 5:16 AM CDT 03/23/2025 5:41 AM CDT Azul Wilkerson CONVERSION MAN CHEMISTRY ORDERABLES Final Re sult Performing Organization Address [facility] de Phone Number [facility] CLIA # [id number] [address] [address] * PREPARE RED BLOOD CELLS (03/23/2025 4:38 AM CDT) [facility] COMPONENT TYPE [id number] [facility] [place] COMPONENT IDENTIFICATION [id number] [facility] [place] UNIT ABO O [facility] [place] UN[facility] RH NEG [facility] [place] CROSSMATCH Compatible [facility] [place] COMPONENT STATUS Transfused [facility] [place] COMPONENT EXPIRATION DATE/TIME [id number] [facility] [place] COMPONENT CODING SYSTEM [address] [facility] [place] VOLUME, BLOOD PRODUCT 350 [facility] [place] Other, specify 03/23/2025 4: 38 AM CDT Lenora Purdy [employer]OR AUTOMATION MANAGER LAB TRANSFUSION ORDERAB LES Edited Result - Final Performing Organization Address [facility]/State/ZIP Co de Phone Number [facility] CLIA#[id number] [address] [place] [address], * (ABNORMAL) MANUAL DIFFERENTIAL (03/23/2025 3:57 AM CDT) SEGMENTED NEUTROPHILS 98(H) 36 - 66 % 03/23/2025 4:50 AM CDT [facility] LYMPHOCYTES RELATIVE 0(L) 24 - 44 % 03/23/2025 4:50 AM CDT [facility] MONOCYTES RELATIVE 1(L) 4 - 10 % 03/23/2025 4:50 AM CDT [facility] METAMYELOCYTES RELATIVE 1 0 - 1 % 03/23/2025 4:50 AM CDT [facility] PLATELET EST. Slightly Increased 03/23/2025 4:50 AM CDT [facility] NEUTROPHILS ABSOLUTE COUNT 41.85(H) 2.00 - 8.00 K/uL 03/23/2025 4:50 AM CDT [facility] LYMPHOCYTES ABSOLUTE 0.00(L) 1.20 - 4.00 K/uL 03/23/2025 4:50 AM CDT [facility] ATYPICAL LYMPHS ABSOLUTE 03/23/2025 4:50 AM CDT [facility] MONOCYTES ABSOLUTE 0.43 0.10 - 0.60 K/uL 03/23/2025 4:50 AM CDT [facility] ANISOCYTOSIS 1+ /hpf 03/23/2025 4:50 AM CDT [facility] POLYCHROMASIA 1+ /hpf 03/23/2025 4:50 AM CDT [facility] VACUOLATED NEUTROPHILS Present /hpf 03/23/2025 4:50 AM CDT [facility] TOTAL CELLS COUNTED IN DIFF 100 03/23/2025 4:50 AM T [facility] Blood Venipuncture / Unknown 03/23/2025 3:57 AM CDT 03/23/2025 4:02 AM CDT Lenora Purdy [employer] AUTOMATION MANAGER HEMATOLOGY ORDERABLES C OM Final Result Performing Organization Address [facility]/ZIP Co de Phone Number [facility] CLIA # [id number] [address] [facility] [place] [address] * VITAMIN B12 AND FOLATE (03/23/2025 3:57 AM CDT) VITAMIN B12 616 211 - 946 pg/mL 03/23/2025 4:54 AM CDT [facility] FOLATE, SERUM 11.4 3.1 - 17.5 ng/mL 03/23/2025 4:54 AM CDT [facility] Blood Venipuncture / Unknown 03/23/2025 3:57 AM CDT 03/23/2025 4:03 AM CDT Jaime Ruggiero MD CHEMISTRY ORDERABLES Final R esult Performing Organization Address City/[facility] Co de Phone Number [facility] CLIA # [id number] [address] [address] [place] [address] * CT ABDOMEN PELVIS W CONTRAST (03/22/2025 4:53 PM CDT) Anatomical Region Laterality Modality Abdomen Computed Tomogra phy 03/22/2025 5:00 PM CDT Impressions 03/22/2025 10:58 PM CDT IMPRESSION: 1. Redemonstration of areas of decreased attenuation within the splenic parenchyma with adjacent perisplenic stranding. Evolving subacute splenic infarcts or sequela of evolving splenic trauma. Bleeding considerations. There is evidence of active vascular extravasation from the spleen. Neoplasm or abscess this felt less likely. Correlation with clinical findings needed. A short-term follow-up MRI abdomen with contrast and 6-8 weeks recommended for reevaluation. 2. Small left pleural fluid collection which has increased density represent infectious, neoplastic or hemorrhagic content. Correlation with diagnostic thoracentesis is recommended. 3. Mucus plugging within bronchiectatic change and lower lobes. 4. No bowel obstruction or bowel inflammation. Narrative 03/22/2025 10:58 PM CDT Exam: CT ABDOMEN PELVIS W CONTRAST Date/Time of Exam: 03/22/2025 4:53 PM Reason For Exam: Questionable splenic abscess versus infarct noted on the CT chest Diagnosis: Acute congestive heart failure, unspecified heart failure type (CMS/HCC); Chronic obstructive pulmonary disease, unspecified COPD type (CMS/HCC) Technique: CT of the abdomen and pelvis was performed following the administration of intravenous contrast. Contrast: IOPAMIDOL 61 % INTRAVENOUS SOLUTION (MULTI-DOSE BULK PACK) Given:120 mL WITHOUT ORAL CONTRAST. Findings: Comparison: CT abdomen pelvis from 09/20/23, CT chest from 02/20/25. Abdomen/Pelvis: Lower thorax demonstrates a small pleural fluid collection with density there is an isodense consistent with proteinaceous or hemorrhagic content. There is bilateral dependent atelectasis. There is bronchiectatic change of areas of mucus plugging. The liver is normal in size with smooth contour. No concerning hepatic lesions or perihepatic hematoma. The gallbladder surgically absent. No biliary duct dilatation. Portal venous system is well-opacified. The pancreas appears intrinsically normal. The spleen is normal in size measuring 6.9 x 9.8 x 10.[address] 09/20/23, there is involvement of a dominant area of decreased attenuation along the anterior aspect of the spleen measuring up to 7.4 x 5.1 x 4.3 cm. There is a smaller area of decreased attenuation in the posterior aspect of the spleen (series 09/29/77) 1.6 x 2.1 cm. There is mild stranding adjacent to the spleen without evidence of perisplenic hematoma active extravasation. There are existing calcified granulomas present within the anterior aspect of the spleen. Adrenal glands unremarkable. Bilateral kidneys unremarkable apart from a Bosniak I right renal cyst. Aorta and IVC unremarkable. No enlarged lymph nodes. Stomach, duodenal sweep, small and large loops are fluid-filled, obstruction or inflammation. Urinary bladder is partially decompressed by Robertson catheter. There is cutaneous thickening and bilateral gluteal regions represent sequela of injection sites. No concerning osseous lesions multilevel degenerative changes five. Procedure Note Andre Marques MD - 03/22/2025 Exam: CT ABDOMEN PELVIS W CONTRAST Date/Time of Exam: 03/22/2025 4:53 PM Reason For Exam: Questionable splenic abscess versus infarct noted on the CT chest Diagnosis: Acute congestive heart failure, unspecified heart failure type (CMS/HCC); Chronic obstructive pulmonary disease, unspecified COPD type (CMS/HCC) Technique: CT of the abdomen and pelvis was performed following the administration of intravenous contrast. Contrast: IOPAMIDOL 61 % INTRAVENOUS SOLUTION (MULTI-DOSE BULK PACK) Given:120 mL WITHOUT ORAL CONTRAST. Findings: Comparison: CT abdomen pelvis from 09/20/23, CT chest from 02/20/25. Abdomen/Pelvis: Lower thorax demonstrates a small pleural fluid collection with density there is an isodense consistent with proteinaceous or hemorrhagic content. There is bilateral dependent atelectasis. There is bronchiectatic change of areas of mucus plugging. The liver is normal in size with smooth contour. No concerning hepatic lesions or perihepatic hematoma. The gallbladder surgically absent. No biliary duct dilatation. Portal venous system is well-opacified. The pancreas appears intrinsically normal. The spleen is normal in size measuring 6.9 x 9.8 x 10.[address] 09/20/23, there is involvement of a dominant area of decreased attenuation along the anterior aspect of the spleen measuring up to 7.4 x 5.1 x 4.3 cm. There is a smaller area of decreased attenuation in the posterior aspect of the spleen (series 09/29/77) 1.6 x 2.1 cm. There is mild stranding adjacent to the spleen without evidence of perisplenic hematoma active extravasation. There are existing calcified granulomas present within the anterior aspect of the spleen. Adrenal glands unremarkable. Bilateral kidneys unremarkable apart from a Bosniak I right renal cyst. Aorta and IVC unremarkable. No enlarged lymph nodes. Stomach, duodenal sweep, small and large loops are fluid-filled, obstruction or inflammation. Urinary bladder is partially decompressed by Robertson catheter. There is cutaneous thickening and bilateral gluteal regions represent sequela of injection sites. No concerning osseous lesions multilevel degenerative changes five. IMPRESSION: 1. Redemonstration of areas of decreased attenuation within the splenic parenchyma with adjacent perisplenic stranding. Evolving subacute splenic infarcts or sequela of evolving splenic trauma. Bleeding considerations. There is evidence of active vascular extravasation from the spleen. Neoplasm or abscess this felt less likely. Correlation with clinical findings needed. A short-term follow-up MRI abdomen with contrast and 6-8 weeks recommended for reevaluation. 2. Small left pleural fluid collection which has increased density represent infectious, neoplastic or hemorrhagic content. Correlation with diagnostic thoracentesis is recommended. 3. Mucus plugging within bronchiectatic change and lower lobes. 4. No bowel obstruction or bowel inflammation. Jaime Ruggiero MD CT ORDERABLES Final Result * CT CHEST WO CONTRAST (03/22/2025 9:44 AM CDT) Anatomical Region Laterality Modality Chest Computed Tomogra phy 03/22/2025 9:45 AM CDT Impressions 03/22/2025 9:52 AM CDT IMPRESSION: 1. Small amount of interstitial opacities in the right lung may represent edema versus infection/inflammation. 2. Nodules scattered throughout the right lung are favored to be sequela of infection/inflammation. Recommend follow-up chest CT in three months. 3. Splenic lesion. This is favored to represent a splenic abscess. Acute versus subacute splenic infarct is also a consideration. Recommend further evaluation with contrast-enhanced abdominal CT or MRI. Narrative 03/22/2025 9:52 AM CDT EXAM: Chest CT without IV contrast. One or more of the following dose reduction techniques were utilized: automated exposure control[AEC], adjustment of mA and/or KV according to patient size, use of iterative reconstruction technique, CT scan done according to ALARA or ALARA image gently. HISTORY: Respiratory illness, nondiagnostic xray, CHF, questionable PNA COMPARISON: CT scan dated 02/26/2018 FINDINGS: Small nodules scattered throughout the right lung. Small amount of interstitial opacities scattered throughout the right lung. Small left pleural effusion with associated atelectasis. Hypoenhancing circumscribed region in the spleen measuring 8.7 x 6.4 cm. Surrounding fat stranding. No pneumothorax. No acute fractures. No definite lymphadenopathy chest. Coronary atherosclerotic calcifications. Multiple small pulmonary cysts or pneumatoceles. Remainder unremarkable. Procedure Note Jerry Lockwood MD - 03/22/2025 EXAM: Chest CT without IV contrast. One or more of the following dose reduction techniques were utilized: automated exposure control[AEC], adjustment of mA and/or KV according to patient size, use of iterative reconstruction technique, CT scan done according to ALARA or ALARA image gently. HISTORY: Respiratory illness, nondiagnostic xray, CHF, questionable PNA COMPARISON: CT scan dated 02/26/2018 FINDINGS: Small nodules scattered throughout the right lung. Small amount of interstitial opacities scattered throughout the right lung. Small left pleural effusion with associated atelectasis. Hypoenhancing circumscribed region in the spleen measuring 8.7 x 6.4 cm. Surrounding fat stranding. No pneumothorax. No acute fractures. No definite lymphadenopathy chest. Coronary atherosclerotic calcifications. Multiple small pulmonary cysts or pneumatoceles. Remainder unremarkable. IMPRESSION: 1. Small amount of interstitial opacities in the right lung may represent edema versus infection/inflammation. 2. Nodules scattered throughout the right lung are favored to be sequela of infection/inflammation. Recommend follow-up chest CT in three months. 3. Splenic lesion. This is favored to represent a splenic abscess. Acute versus subacute splenic infarct is also a consideration. Recommend further evaluation with contrast-enhanced abdominal CT or MRI. Jaime Ruggiero MD CT ORDERABLES Final Result * EXTRA TUBE (URINE CARRANZA) (03/22/2025 8:38 AM CDT) Urine URINE SPECIMEN OBTAINED BY CLEAN CATCH PROCEDURE / Unknown Collection / Unknown 03/22/2025 8:38 AM CDT 03/22/2025 8:50 AM CDT Jaime Ruggiero MD URINE ORDERABLES Final Resul t [facility] CLIA # [id number] [address] [place] [address] * (ABNORMAL) URINALYSIS WITH REFLEX MICROSCOPIC (03/22/2025 8:38 AM CDT) COLOR UA Pale Yellow Pale to Dark Yellow 03/22/2025 9:07 AM T [facility] CLARITY UA Turbid(A) Clear 03/22/2025 9:07 AM T [facility] SPECIFIC GRAVITY UA 1.013 1.003 - 1.035 03/22/2025 9:07 AM CDT [facility] PH UA 8.0 5.0 - 8.0 03/22/2025 9:07 AM T [facility] LEUKOCYTE ESTERASE UA 3+(A) Negative 03/22/2025 9:07 AM T [facility] NITRITE UA Negative Negative 03/22/2025 9:07 AM T [facility] PROTEIN UA Trace(A) Negative 03/22/2025 9:07 AM T [facility] GLUCOSE UA Negative Negative 03/22/2025 9:07 AM T [facility] KETONES UA Negative Negative 03/22/2025 9:07 AM T [facility] UROBILINOGEN UA <2.0 <2.0 mg/dL 9:07 AM T [facility] BILIRUBIN UA Negative Negative 03/22/2025 9:07 AM [facility] BLOOD UA Trace(A) Negative 03/22/2025 9:07 AM T [facility] WBC UA 3-5(A) 0 - 2 /hpf 03/22/2025 9:07 AM [facility] RBC UA 3-5(A) 0 - 2 /hpf 03/22/2025 9:07 AM T [facility] BACTERIA UA Negative Negative /hpf 03/22/2025 9:07 AM [facility] EPITHELIAL CELLS, URINE 0-5 0 - 5 /hpf 03/22/2025 9:07 AM [facility] TRIPLE PHOS Present(A) Absent 03/22/2025 9:07 AM [facility] Urine URINE SPECIMEN OBTAINED BY CLEAN CATCH PROCEDURE / Unknown Collection / Unknown 03/22/2025 8:38 AM CDT 03/22/2025 8:50 AM CDT us Jaime Ruggiero MD URINE ORDERABLES Final Resul t [facility] CLIA # [id number] [address] [address] * (ABNORMAL) TROPONIN 6 HR, 5TH GEN (03/22/2025 4:36 AM CDT) Only the most recent of2 resultswithin the time period is included. TROPONIN T, 6 HR 5TH GEN 133(HH) <=15 ng/L 03/22/2025 5:22 AM CDT [facility] DELTA 6HR TROPONIN T % -9 See Interp. % 03/22/2025 5:22 AM CDT [facility] Blood Venipuncture / Unknown 03/22/2025 4:36 AM CDT 03/22/2025 4:46 AM CDT Narrative [facility] - 03/22/2025 5:22 AM CDT Troponin elevated. Delay in collection of timed specimen beyond recommended collection interval. Results must be interpreted in clinical context. Delta not changing. Bandar Parsons MD CHEMISTRY ORDERABLES Final Res ult [facility] CLIA # [id number] [address] [place] [address] * (ABNORMAL) IRON, TIBC, AND PERCENT SATURATION (03/22/2025 4:36 AM CDT) IRON 16(L) 59 - 158 ug/dL 03/22/2025 6:41 PM CDT [facility] TIBC 316 250 - 450 ug/dL 03/22/2025 6:41 PM CDT [facility] IRON % SATURATION 5(L) 15 - 60 % 03/22/2025 6:41 PM CDT [facility] Blood Venipuncture / Unknown 03/22/2025 4:36 AM CDT 03/22/2025 4:46 AM CDT us Jaime Ruggiero MD CHEMISTRY ORDERABLES Final R esult Performing Organization Address City/[facility] Co de Phone Number [facility] CLIA # [id number] [address] [address] * (ABNORMAL) TSH (03/22/2025 4:36 AM CDT) TSH 6.70(H) 0.27 - 4.20 uIU/mL 03/22/2025 6:41 PM CDT [facility] Blood Venipuncture / Unknown 03/22/2025 4:36 AM CDT 03/22/2025 4:46 AM CDT Jaime Ruggiero MD CHEMISTRY ORDERABLES Final R esult Performing Organization Address [facility] Co de Phone Number [facility] CLIA # [id number] [facility] [address] * FERRITIN (03/22/2025 4:36 AM CDT) Pathologist [facility] FERRITIN 31.2 30.0 - 400.0 ng/mL 03/22/2025 6:41 PM CDT [facility] Blood Venipuncture / Unknown 03/22/2025 4:36 AM CDT 03/22/2025 4:46 AM CDT Jaime Ruggiero MD CHEMISTRY ORDERABLES Final R esult Performing Organization Address City/[facility] Co de Phone Number [facility] CLIA # [id number] [facility] [address] * (ABNORMAL) TROPONIN BASELINE, 5TH GEN (03/21/2025 10:18 PM CDT) Only the most recent of2 resultswithin the time period is included. TROPONIN T, BASELINE 5TH GEN 146(HH) <=15 ng/L 03/22/2025 4:37 AM CDT [facility] Blood Venipuncture / Unknown 03/21/2025 10:18 PM CDT 03/21/2025 10:23 PM CDT Narrative [facility] - 03/22/2025 4:37 AM CDT Troponin elevated. Bandar Parsons MD CHEMISTRY ORDERABLES Final Res ult Performing Organization Address [facility]/ZIP Co de Phone Number [facility] CLIA # [id number] [address] [place] [address] [place] [address] * (ABNORMAL) BRAIN NATRIURETIC PEPTIDE, BNP OR PROBNP (03/21/2025 10:18 PM CDT) Only the most recent of2 resultswithin the time period is included. Pathologist [facility] PROBNP, N TERMINAL 4,282(H) 0 - 125 pg/mL 03/21/2025 10:58 PM CDT [facility] Comment: INTERPRETIVE COMMENT based on diagnosis: Diagnostic [...] years: >1800 pg/mL Blood Venipuncture / Unknown 03/21/2025 10:18 PM CDT 03/21/2025 10:23 PM CDT Bandar Parsons MD CHEMISTRY ORDERABLES Final Res ult [facility] CLIA # [id number] [address] [address] [place] [address] * (ABNORMAL) COMPREHENSIVE METABOLIC PANEL (03/21/2025 10:18 PM CDT) Only the most recent of6 resultswithin the time period is included. SODIUM 141 136 - 145 mmol/L 03/21/2025 10:58 PM [facility] POTASSIUM 4.5 3.5 - 5.1 mmol/L 03/21/2025 10:58 PM [facility] CHLORIDE 100 98 - 107 mmol/L 03/21/2025 10:58 PM [facility] CO2 33(H) 22 - 29 mmol/L 03/21/2025 10:58 PM [facility] CALCIUM 8.2(L) 8.8 - 10.2 mg/dL 03/21/2025 10:58 PM [facility] BUN 24(H) 8 - 23 mg/dL 03/21/2025 10:58 PM [facility] CREATININE 1.20(H) 0.67 - 1.17 mg/dL 03/21/2025 10:58 PM [facility] Comment:The GFR result is no t clinically significant on patients <18 or >70 years of age. GLUCOSE 118(H) 74 - 99 mg/dL 03/21/2025 10:58 PM [facility] TOTAL PROTEIN 8.5(H) 6.4 - 8.3 g/dL 03/21/2025 10:58 PM [facility] ALBUMIN 2.8(L) 3.5 - 5.2 g/dL 03/21/2025 10:58 PM [facility] BILIRUBIN TOTAL 0.2 0.0 - 1.0 mg/dL 03/21/2025 10:58 PM [facility] ALKALINE PHOSPHATASE 141(H) 40 - 129 U/L 03/21/2025 10:58 PM [facility] AST 9(L) 10 - 50 U/L 03/21/2025 10:58 PM CDT [facility] ALT 6 <=50 U/L 03/21/2025 10:58 PM CDT [facility] GFR >60 mL/min/1. 73 sq meter 03/21/2025 10:58 PM CDT [facility] Comment:eGFR calculated with 2020 CKD-EPI equation. Vegetarian diet, extremely high or low muscle mass, and may affect results. Cystatin C with Glomerular Filtration Rate is a suitable alternative for these patients. ANION GAP 8(L) 9 - 20 mmol/L 03/21/2025 10:58 PM CDT [facility] Blood Venipuncture / Unknown 03/21/2025 10:18 PM CDT 03/21/2025 10:23 PM CDT us Bandar Parsons MD CHEMISTRY ORDERABLES Final Res ult [facility] CLIA # [id number] [address] [address] * EKG 12-LEAD (03/21/2025 10:11 PM CDT) Only the most recent of3 resultswithin the time period is included. 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: [id number] : 1950 Requested By: Order Number: [id number] Reading MD: Inessa Zamarripa Measurements Intervals [place] Rate: 64 P: 53 NV: 174 QRS: -6 QRSD: 98 T: -77 QT: 434 QTc: 447 Interpretive Statements Sinus rhythm with premature atrial complexes Low voltage QRS Cannot rule out Anterior infarct, age undetermined Abnormal ECG Electronically Signed On 03-23-2025 13:02:21 CDT by Inessa Zamarripa Procedure Note Provider, Historical - 03/23/2025 [facility] [address] [place] [address] Test Date: 2025-03-21 Pat Name: ISREAL ARGUELLO Department: 11 Room: Gender: Male Merchandise Appraiser: [id number] : 1950 Requested By: Order Number: [id number] Reading MD: Inessa Zamarripa Measurements Intervals [place] Rate: 64 P: 53 NV: 174 QRS: -6 QRSD: 98 T: -77 QT: 434 QTc: 447 Interpretive Statements Sinus rhythm with premature atrial complexes Low voltage QRS Cannot rule out Anterior infarct, age undetermined Abnormal ECG Electronically Signed On 03-23-2025 13:02:21 CDT by Inessa Zamarripa us Bandar Parsons MD ECG ORDERABLES Final Result INTERFACE SYSTEM Refer to clinic/hospital department * (ABNORMAL) CBC WITHOUT DIFFERENTIAL (02/19/2025 3:46 AM CDT) Only the most recent of3 resultswithin the time period is included. WBC 12.8(H) 4.8 - 10.8 K/uL 02/19/2025 4:19 AM CDT [facility] RBC 3.83(L) 4.60 - 6.20 M/uL 02/19/2025 4:19 AM CDT [facility] HEMOGLOBIN 8.8(L) 14.0 - 18.0 g/dL 02/19/2025 4:19 AM CDT [facility] HEMATOCRIT 32.2(L) 41.0 - 53.0 % 02/19/2025 4:19 AM CDT [facility] MCV 84.1 84.0 - 103.0 fL 02/19/2025 4:19 AM CDT [facility] MCH 23.0(L) 27.0 - 34.0 pg 02/19/2025 4:19 AM CDT [facility] MCHC 27.3(L) 30.0 - 35.0 g/dL 02/19/2025 4:19 AM CDT [facility] PLATELETS 389 140 - 440 K/uL 02/19/2025 4:19 AM CDT [facility] MPV 9.6 8.9 - 12.8 fL 02/19/2025 4:19 AM T [facility] RDW 17.6(H) 11.0 - 14.5 % 02/19/2025 4:19 AM T [facility] RDW-STDEV 53.8 37.0 - 54.0 fL 02/19/2025 4:19 AM T [facility] Blood Venipuncture / Unknown 02/19/2025 3:46 AM CDT 02/19/2025 4:14 AM CDT Lokesh Mckeon MD HEMATOLOGY ORDERABL ES Final Result [facility] CLIA # [id number] [address] [place] [id number] * (ABNORMAL) LIPID PANEL (02/17/2025 6:19 AM CDT) Only the most recent of2 resultswithin the time period is included. CHOLESTEROL 90 <200 mg/dL 02/17/2025 7:17 AM T [facility] TRIGLYCERIDE 118 <150 mg/dL 02/17/2025 7:17 AM T [facility] HDL 27(L) 40 - 59 mg/dL 02/17/2025 7:17 AM CDT [facility] LDL CALCULATED 39 <100 mg/dL 02/17/2025 7:17 AM CDT [facility] NON-HDL CHOLESTEROL 63 <130 mg/dL 02/17/2025 7:17 AM T [facility] Blood Venipuncture / Unknown 02/17/2025 6:19 AM CDT 02/17/2025 6:28 AM CDT Narrative [facility] - 02/17/2025 7:17 AM CDT TOTAL CHOLESTEROL [...] Minerva Bunch NP CHEMISTRY ORDERABLES Final Result Performing Organization Address [facility] Co de Phone Number [facility] CLIA # [id number] [facility] [address] * PHOSPHORUS (02/15/2025 3:40 AM CDT) Only the most recent of2 resultswithin the time period is included. PHOSPHORUS 3.0 2.5 - 4.5 mg/dL 02/15/2025 4:20 AM CDT [facility] Blood Venipuncture / Unknown 02/15/2025 3:40 AM CDT 02/15/2025 3:46 AM CDT us Garrett Monroe MD CHEMISTRY ORDERABLES Final Resu lt Performing Organization Address City/[facility]/ZIP Co de Phone Number [facility] CLIA # [id number] [address] [address] [place] [place] [address] * (ABNORMAL) PNEUMONIA PATHOGEN PCR PANEL (02/14/2025 9:40 AM CDT) Pseudomonas aeruginosa by PCR DETECTED( A) Not Detected 02/14/2025 2:17 PM CDT [facility] Sputum SPUTUM SPECIMEN OBTAINED BY ASPIRATION / Unknown Collection / Unknown 02/14/2025 9:40 AM CDT 02/14/2025 9:46 AM CDT Narrative [facility] - 02/14/2025 2:17 PM CDT NOTE: Per the chisel grinder, this current lot of reagent may be insensitive for the full detection of adenoviruses. If adenovirus is within the differential diagnosis, the specimen may be submitted to a reference laboratory for further testing. If desired, order [id number] Lab Test, stating Adenovirus by PCR testing [...] KPC NDM OXA-48-like VIM mecA/C and MREJ us Kristen Simpson NP MICROBIOLOGY - GENERAL ORDERABL ES Final Result [facility] CLIA # [id number] [address] [facility] [place] [address] * (ABNORMAL) SPUTUM CULTURE WITH GRAM STAIN (02/14/2025 9:40 AM CDT) Pathologist [facility] CULTURE PSEUDOMONAS AERUGINOSA(A) MIKAL MCG/ML 02/17/2025 8:36 AM CDT [facility] GRAM STAIN Smear contains </=10 squamous epithelial cells per low power field 02/17/2025 8:36 AM CDT [facility] GRAM STAIN <25 PMN WBC/LPF 8:36 AM CDT [facility] GRAM STAIN No organisms observed 02/17/2025 8:36 AM CDT [facility] Sputum SPUTUM SPECIMEN OBTAINED BY ASPIRATION / [...] with an infectious diseases specialist is recommended. rKisten Simpson NP MICROBIOLOGY - GENERAL ORDERABL ES Final Result [facility] CLIA # [id number] [address] [address] * (ABNORMAL) POC ACTIVATED CLOTTING TIME (02/14/2025 2:01 AM CDT) Only the most recent of2 resultswithin the time period is included. ACTIVATED CLOTTING TIME POC 297(H) 116 - 140 sec 02/14/2025 2:01 AM CDT [facility] Blood 02/14/2025 2:01 AM CDT 02/14/2025 2:55 PM CDT Garrett Monroe MD POINT OF CARE TESTING Final Res ult [facility] CLIA # [id number] [address] [place] [address] * LEFT HEART CATH, PERCUTANEOUS CORONARY INTERVENTION, CORONARY ATHERECTOMY, IVUS-CORONARY INTRAVASCULAR (02/14/2025 2:00 AM CDT) 02/14/2025 1:21 AM CDT Narrative [facility] - 02/14/2025 2:16 AM CDT Ost Cx to Prox Cx lesion is 95% stenosed. 1st Mrg lesion is 100% stenosed. Lat 1st Mrg lesion is 100% stenosed. Prox LAD lesion is 35% stenosed. Prox RCA to Mid RCA lesion is 35% stenosed. Acute Mrg lesion is 100% stenosed. Ost Cx to Prox Cx reduced to 0% stenosed. 1. Significant venetie ira coronary artery disease with a stent. Late presentation OR. Patient is now status post successful IVUS [...] document were created through the use of [employer]aker bread software. Effort has been made to ensure accuracy of the hammer fitter. Any obvious errors or omissions should be [...] a STENT JAYY FRONTIER SANTIAGO 4.0X38MM RX [id number]. Post- Intervention Lesion Assessment: The intervention was [...] was used for local anesthesia. A 6 Chinese sheath was placed in the access site [...] Note that patient is a late presentation OR due to significant thrombus burden. The left [...] MD CUP CATH ORDERABLES Final Res ult [facility] [id number] [address] [facility] [address] [place] [address], [place] [phone] * (ABNORMAL) TROPONIN 2 HR, 5TH GEN (02/14/2025 12:31 AM CDT) TROPONIN T, 2 HR 5TH GEN 2,305(HH) <=15 ng/L 02/14/2025 1:18 AM CDT [facility] [place] DELTA 2HR TROPONIN T % 1 See Interp. % 02/14/2025 1:18 AM CDT [facility] Blood Venipuncture / Unknown 02/14/2025 12:31 AM CDT 02/14/2025 12:39 AM CDT [facility] - 02/14/2025 1:18 AM CDT Troponin elevated. Delta not changing. Kim Wilkinson MD CHEMISTRY ORDERABLES Final Result Performing Organization Address City/[facility]/ZIP Co de Phone Number [facility] CLIA # [id number] [address] [address] [place] [address] * UNFRACTIONATED HEPARIN MONITORING (02/14/2025 12:28 AM CDT) ANTI-XA UNFRAC HEP <0.10 See Interpretation IU/mL 02/14/2025 12:58 AM CDT [facility] Blood Venipuncture / Unknown 02/14/2025 12:28 AM CDT 02/14/2025 12:38 AM CDT [facility] - 02/14/2025 12:58 AM CDT Therapeutic Range: PT/DVT Heparin Protocol 0.3 - 0.7 IU/ml Cardiac Heparin Protocol 0.3 - 0.6 IU/ml The reference range for this test is specific to the anticoagulant and is not appropriate for monitoring patients on a DOAC protocol. us Kim Wilkinson MD HEMATOLOGY ORDERABLE S Final Result [facility] CLIA # [id number] [address] [facility] [place], [place] [address] * PTT (02/14/2025 12:28 AM CDT) PTT 31.2 24.8 - 37.2 seconds 02/14/2025 12:58 AM CDT [facility] Blood Venipuncture / Unknown 02/14/2025 12:28 AM CDT 02/14/2025 12:38 AM CDT Narrative [facility] - 02/14/2025 12:58 AM CDT Therapeutic Range: Hi-level PE/DVT heparin protocol 80.1 - 95.0 sec Lo-level PE/DVT heparin protocol 70.1 - 85.0 sec Cardiac Heparin Protocol 70.1 - 100.0 sec us Kim Wilkinson MD HEMATOLOGY ORDERABLE S Final Result [facility] CLIA # [id number] [address] [place] [address] * HEMOGLOBIN A1C (02/11/2025) ABSTRACTED HGB A1C 5.5 % Blood 02/11/2025 us Abstract Provider CHEMISTRY ORDERABLES Final Res ult * ENDOSCOPY, COLON, SCREENING (07/11/2013 12:39 PM ROBOTYPE OPERATOR) 07/11/2013 12:3 9 PM ROBOTYPE OPERATOR Narrative Procedure Note Demetri Chávez MD - 07/10/2013 12:00 AM CST Procedures signed by Demetri Chávez MD at 07/11/2013 12:39 PM Author: Demetri Chávez MD Service: -- Author Type: Physician Filed: 07/11/2013 12:39 PM Date of Service: 07/10/2013 5:25 PM Status:Signed Charger Tester: Demetri Chávez MD (Physician) Procedure Orders 1. ENDOSCOPY, COLON, MEDICARE SCREENING (WELLNESS) [[id number]] ordered byat 07/01/13 [address] [place], [place] Patient: ISREAL ARGUELLO CSN: [id number] : 1950 Provider: Demetri Chávez MD ENDOSCOPY [...] otherwise unremarkablecolonoscopy. Demetri Chávez MD MMODL D: [id number] V: [id number] cc: Roshan Jimenez DO Roshan Jimenez DO GI PROCEDURE ORDERABLES Fin al Result [facility] from Last 3 Months or Most Recently Relevant to Health Maintenance Insurance MEDICAID [place] MEDICARE PART A AND B RX [employer] RX Member Subscriber Plan / Payer (Ef fective 2023-Present) Name:Isreal Arguello Relation to Subscriber:Self Name:Isreal Arguello Payer ID:Not on file Group ID:[id number] Type:RX Commercial Address: [address] Advance Directives For more information, please contact: [phone] * NO CPR (In Event of Cardiopulmonary Arrest) (Latest Code Status on File) Date Activated Date Inactivated Comments 03/22/2025 12:29 PM 03/27/2025 9:21 PM Question Answer Comments Mechanical Ventilation (for respiratory distress) - Invasive (i.e. intubation): No Mechanical Ventilation (for respiratory distress) - Non-Invasive (i.e. BiPAP, CPAP): Yes * NO CPR (In Event of Cardiopulmonary Arrest) Date Activated Date Inactivated Comments 02/14/2025 3:12 [...]
--- OUTSIDE RECORDS SUMMARY | 2025-04-05 18:44 | XMS_ITS | Encounter Summary ---
Author Organization [facility] Address [address] [place] [address] Care Team Providers Care Resident Surgeon Name Role Phone Roshan Jimenez DO Primary Care Provider Unav ailable Encounter Details Date Type Department Care Team (Latest Contact Info) Description 07/06/2000 Outpatient Historical [facility] Dermatology- [facility] [place] [address] [place] [phone] Irineo Snyder MD NO ADDRESS ON FILE Hidradenitis (Primary Dx); Benign miguel skin trunk Social History Tobacco Use Types Packs/Day Years Used Date Smoking Tobacco: Never Assessed Sex and Gender Information Value Date Recorded Sex Assigned at Not on file Legal Sex 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
--- OUTSIDE RECORDS SUMMARY | 2025-04-05 18:44 | XMS_ITS | Clinical Summary ---
Author Organization [facility] Stevo melo Combs Address [address] [place] [address] Phone Care Team Providers Care Staff Nuclear Medicine Technologist Name Role Phone Roshan Jimenez DO Primary [...] :Asthma with chronic obstructive pulmonary disease (COPD) ([facility]) TAKE 2 PUFFS BY INHALATION EVERY 4 [...] Asthma with chronic obstructive pulmonary disease (COPD) ([facility]) Take 1 Puff by inhalation daily. 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 Demetri Chávez MD MMODL D: [id number] V: [id number] cc: Roshan Jimenez DO Roshan Jimenez DO GI PROCEDURE ORDERABLES Fin al Result from Last 3 Months or Most Recently Relevant to Health Maintenance Insurance MEDICAID [address] [address] [address] [address] DUAL COMPLETE MCR HMO SNP Advance Directives For more information, please contact: [phone] * Full Code (Latest Code Status on [...] 12:22 PM 01/13/2010 11:02 PM Care Teams Staff Nuclear Medicine Technologist Relationship Specialty Start Date End Date Roshan Jimenez DO NO ADDRESS ON FILE PCP - General 03/26/03
--- OUTSIDE RECORDS SUMMARY | 2025-04-05 18:44 | XMS_ITS | Encounter Summary ---
Author Organization [facility] Address [address] [place] [address] Care Team Providers Care Websphere Architect Name Role Phone Roshan Jimenez DO Primary Care Provider Unav ailable Encounter Details Date Type Department Care Team (Latest Contact Info) Description 05/23/2000 Outpatient Historical [facility] Dermatology- [facility] [place] [address] [place] [phone] Irineo Snyder MD NO ADDRESS ON FILE Hidradenitis (Primary Dx); Benign miguel skin trunk Social History Tobacco Use Types Packs/Day Years Used Date Smoking Tobacco: Never Assessed Sex and Gender Information Value Date Recorded Sex Assigned at Not on file 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
--- OUTSIDE RECORDS SUMMARY | 2025-04-05 18:44 | XMS_ITS | Encounter Summary ---
Author Organization [facility] Address [address] [place] [address] Care Team Providers Care Telegraph Service Clerk Name Role Phone Roshan Jimenez DO Primary Care Provider Unav ailable Encounter Details Date Type Department Care Team (Latest Contact Info) Description 12/08/2000 Outpatient [facility] [address] [place] [phone] Rosahn Jimenez DO NO ADDRESS ON FILE Anxiety state, unspecified (Primary Dx); Depressive disorder, not elsewhere classified; Acute bronchitis; Chronic airway obstruction, not elsewhere classified (CMS/HCC) Social History Tobacco Use Types Packs/Day Years Used Date Smoking Tobacco: Never Assessed Sex and Gender Information Value Date Recorded Sex Assigned at Not on file 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 Sex Male 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
--- OUTSIDE RECORDS SUMMARY | 2025-04-05 18:44 | XMS_ITS | Encounter Summary ---
Author Organization [facility] Address [address] [place] [address] Care Team Providers Care Security Patrol Officer Name Role Phone Roshan Jimenez DO Primary Care Provider Unav ailable Encounter Details Date Type Department Care Team (Latest Contact Info) Description 11/13/2002 Outpatient [facility]-Ste[facility] [place] [address] [place] [address] Noé Rosa, DPM [address] [place] [address] Onychia of toe (Primary Dx); INGROWING NAIL Social History Tobacco Use Types Packs/Day Years Used Date Smoking Tobacco: Never Assessed Sex and Gender Information Value Date Recorded Sex Assigned at Not on file 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
--- OUTSIDE RECORDS SUMMARY | 2025-04-05 18:44 | XMS_ITS | Encounter Summary ---
Author Organization [facility] Address [address] [place] [address] Care Team Providers Care Organizational Consultant Name Role Phone Roshan Jimenez DO Primary Care Provider Unav ailable Encounter Details Date Type Department Care Team (Latest Contact Info) Description 05/29/2001 Outpatient [facility] [address] [place] [address] Roshan Jimenez DO NO ADDRESS ON FILE Unspecified essential hypertension (Primary Dx); Depressive disorder, not elsewhere classified; Chronic airway obstruction, not elsewhere classified (CMS/HCC) Social History Tobacco Use Types Packs/Day Years Used Date Smoking Tobacco: Never Assessed Sex and Gender Information Value Date Recorded Sex Assigned at Not on file 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 Male 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
--- OUTSIDE RECORDS SUMMARY | 2025-04-05 18:44 | XMS_ITS | Encounter Summary ---
Author Organization [facility] Address [address] [place] [address] Care Team Providers Care Workers Compensation Attorney Name Role Phone Roshan Jimenez DO Primary Care Provider Unav ailable Encounter Details Date Type Department Care Team (Latest Contact Info) Description 03/09/2005 Outpatient Historical [facility] [address] [place] [address] [place] [address] Zofia Gleason, VERIFIER OPERATOR [address] [place] [address] HYPERSOMNI W SLEEP APNEA (Primary Dx) Social History Tobacco Use Types Packs/Day Years Used Date Smoking Tobacco: Never Assessed Sex and Gender Information Value Date Recorded Sex Assigned at Not on file Legal Sex Male 4:59 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
--- OUTSIDE RECORDS SUMMARY | 2025-04-05 18:44 | XMS_ITS | Encounter Summary ---
Author Organization [facility] Address [address] [place] [address] Care Team Providers Care Crm Analyst Name Role Phone Roshan Jimenez DO Primary Care Provider Unav ailable Encounter Details Date Type Department Care Team (Latest Contact Info) Description 02/12/2001 Outpatient [facility] [address] [place] [address] Roshan Jimenez DO NO ADDRESS ON FILE Unspecified asthma(493.90) (Primary Dx); Chronic airway obstruction, not elsewhere classified (CMS/[facility]) Social History Tobacco Use Types Packs/Day Years Used Date Smoking Tobacco: Never Assessed Sex and Gender Information Value Date Recorded Sex Assigned at Not on file Legal Sex Male 4:59 AM ULTRASOUND APPLICATIONS SPECIALIST Gender Identity Not on file Sexual Orientation Not on file documented as of this encounter Plan of Treatment Not on file documented as of this encounter Visit Diagnoses Diagnosis Unspecified asthma(493.90)- Primary Unspecified asthma Chronic airway obstruction, not elsewhere classified (CMS/HCC) Chronic airway obstruction, not elsewhere classified documented in this encounter Care Teams Crm Analyst Relationship Specialty Start Date End Date Roshan Jimenez DO NO ADDRESS ON FILE PCP - General 03/26/03 documented as of this encounter
--- OUTSIDE RECORDS SUMMARY | 2025-04-05 18:44 | XMS_ITS | Encounter Summary ---
Author Organization [facility] Address [address] [place] [address] Care Team Providers Care Automated Manufacturing Instructor Name Role Phone Roshan Jimenez DO Primary Care Provider Unav ailable Encounter Details Date Type Department Care Team (Latest Contact Info) Description 05/17/2000 Outpatient Historical [facility] [address] [place] [address] [place] [id number] Merlin Reilly MD NO ADDRESS ON FILE Hypersomnia with sleep apnea, unspecified (Primary Dx) Social History Tobacco Use Types Packs/Day Years Used Date Smoking Tobacco: Never Assessed Sex and Gender Information Value Date Recorded Sex Assigned at Not on file 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
--- OUTSIDE RECORDS SUMMARY | 2025-04-05 18:44 | XMS_ITS | Encounter Summary ---
Author Organization [facility] Address [address] [place] [address] Care Team Providers Care Press Clippings Cutter And Paster Name Role Phone Roshan Jimenez DO Primary Care Provider Unav ailable Encounter Details Date Type Department Care Team (Latest Contact Info) Description 03/22/2000 Outpatient Historical [facility] [address] [place] [address] Roshan Jimenez DO NO ADDRESS ON FILE Unspecified essential hypertension (Primary Dx); Chronic airway obstruction, not elsewhere classified (CMS/HCC); Transient tic disorder; Osteoarthrosis, unspecified whether generalized or localized, unspecified site Social History Tobacco Use Types Packs/Day Years Used Date Smoking Tobacco: Never Assessed Sex and Gender Information Value Date Recorded Sex Assigned at Not on file 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
--- OUTSIDE RECORDS SUMMARY | 2025-04-05 18:44 | XMS_ITS | Encounter Summary ---
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
--- OUTSIDE RECORDS SUMMARY | 2025-04-05 18:44 | XMS_ITS | Encounter Summary ---
Author Organization [employer] Address [address] 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
--- OUTSIDE RECORDS SUMMARY | 2025-04-05 18:44 | XMS_ITS | Encounter Summary ---
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
--- OUTSIDE RECORDS SUMMARY | 2025-04-05 18:44 | XMS_ITS | Encounter Summary ---
Author Organization [facility] Address [address] [place] [address] Care Team Providers Care Accordion Tuner Name Role Phone Roshan Jimenez DO Primary Care Provider Unav ailable Encounter Details Date Type Department Care Team (Latest Contact Info) Description 01/01/2001 Outpatient [facility] [address] [place] [address] Roshan Jimenez DO NO ADDRESS ON FILE Obstructive chronic bronchitis with exacerbation (CMS/HCC) (Primary Dx); Depressive disorder, not elsewhere classified; Edema; Unspecified essential hypertension Social History Tobacco Use Types Packs/Day Years Used Date Smoking Tobacco: Never Assessed Sex and Gender Information Value Date Recorded Sex Assigned at Not on file 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
--- OUTSIDE RECORDS SUMMARY | 2025-04-05 18:44 | XMS_ITS | Encounter Summary ---
Author Organization [facility] Address [address] [place] [address] Care Team Providers Care Vocational Teacher Name Role Phone Roshan Jimenez DO Primary Care Provider Unav ailable Encounter Details Date Type Department Care Team (Latest Contact Info) Description 07/15/2002 Outpatient [facility] [address] [place] [address] Roshan Jimenez DO NO ADDRESS ON FILE OBSTR CHR BRONCHITIS W AC EXACERB (CMS/HCC) (Primary Dx); HYPERTENSION NOS Social History Tobacco Use Types Packs/Day Years Used Date Smoking Tobacco: Never Assessed Sex and Gender Information Value Date Recorded Sex Assigned at Not on file 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
--- OUTSIDE RECORDS SUMMARY | 2025-04-05 18:44 | XMS_ITS | Encounter Summary ---
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
--- OUTSIDE RECORDS SUMMARY | 2025-04-05 18:44 | XMS_ITS | Encounter Summary ---
Author Organization [facility] Address [address] [place] [address] Care Team Providers Care Commodity Industry Analyst Name Role Phone Roshan Jimenez DO Primary Care Provider Unav ailable Encounter Details Date Type Department Care Team (Latest Contact Info) Description 02/15/2005 Outpatient [facility] [address] [place] [address] Roshan Jimenez DO NO ADDRESS ON FILE CHRONIC AIRWAY OBSTRUCTION NEC ([facility]) (Primary Dx); OBESITY NOS; HYPERTENSION NOS; OTHER UNSPEC SLEEP APNEA Social History Tobacco Use Types Packs/Day Years Used Date Smoking Tobacco: Never Assessed Sex and Gender Information Value Date Recorded Sex Assigned at Not on file 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 Gender Identity Not on file Sexual Orientation Not on file documented as of this encounter Plan of Treatment Not on file documented as of this encounter Visit Diagnoses Diagnosis Chronic airway obstruction, not elsewhere classified ([facility])- Primary Chronic airway obstruction, not elsewhere classified Obesity, unspecified Unspecified essential hypertension Unspecified sleep apnea documented in this encounter Care Teams Commodity Industry Analyst Relationship Specialty Start Date End Date Roshan Jimenez DO NO ADDRESS ON FILE PCP - General 03/26/03 documented as of this encounter
--- OUTSIDE RECORDS SUMMARY | 2025-04-05 18:44 | XMS_ITS | Encounter Summary ---
Author Organization [facility] Address [address] [place] [address] Care Team Providers Care Oceanographer Geological Name Role Phone Roshan Jimenez DO Primary Care Provider Unav ailable Encounter Details Date Type Department Care Team (Latest Contact Info) Description 01/30/2002 Outpatient [facility] [address] [place] [address] Roshan Jimenez DO NO ADDRESS ON FILE CHRONIC AIRWAY OBSTRUCTION NEC ([facility]) (Primary Dx); HYPERTENSION NOS; OTHER UNSPEC SLEEP APNEA; OSTEOARTHROS NOS-UNSPEC Social History Tobacco Use Types Packs/Day Years Used Date Smoking Tobacco: Never Assessed Sex and Gender Information Value Date Recorded Sex Assigned at Not on file 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 Gender Identity Not on file Sexual Orientation Not on file documented as of this encounter Plan of Treatment Not on file documented as of this encounter Visit Diagnoses Diagnosis Chronic airway obstruction, not elsewhere classified ([facility]/HCC)- Primary Chronic airway obstruction, not elsewhere classified Unspecified essential hypertension Unspecified sleep apnea Osteoarthrosis, unspecified whether generalized or localized, unspecified site documented in this encounter Care Teams Oceanographer Geological Relationship Specialty Start Date End Date Roshan Jimenez DO NO ADDRESS ON FILE PCP - General 03/26/03 documented as of this encounter
--- OUTSIDE RECORDS SUMMARY | 2025-04-05 18:44 | XMS_ITS | Encounter Summary ---
Author Organization [facility] Address [address] [place] [address] Care Team Providers Care Software Test Technician Name Role Phone Roshan Jimenez DO Primary Care Provider Unav ailable Encounter Details Date Type Department Care Team (Latest Contact Info) Description 12/25/2000 Outpatient [facility] [address] [place] [address] Roshan Jimenez DO NO ADDRESS ON FILE Obstructive chronic bronchitis with exacerbation (CMS/HCC) (Primary Dx); Unspecified chronic bronchitis (CMS/HCC); Unspecified sleep apnea; Obesity, unspecified Social History Tobacco Use Types Packs/Day Years Used Date Smoking Tobacco: Never Assessed Sex and Gender Information Value Date Recorded Sex Assigned at Not on file 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 Gender Identity Not on file Sexual Orientation Not on file documented as of this encounter Plan of Treatment Not on file documented as of this encounter Visit Diagnoses Diagnosis Obstructive chronic bronchitis with exacerbation (CMS/HCC)- Primary Obstructive chronic bronchitis with exacerbation Unspecified chronic bronchitis (CMS/HCC) Unspecified chronic bronchitis Unspecified sleep apnea Obesity, unspecified documented in this encounter Care Teams Software Test Technician Relationship Specialty Start Date End Date Roshan Jimenez DO NO ADDRESS ON FILE PCP - General 03/26/03 documented as of this encounter
--- OUTSIDE RECORDS SUMMARY | 2025-04-05 18:44 | XMS_ITS | Encounter Summary ---
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
--- OUTSIDE RECORDS SUMMARY | 2025-04-05 18:44 | XMS_ITS | Encounter Summary ---
Author Organization [facility] Address [address] [place] [address] Care Team Providers Care Vat Cleaner Name Role Phone Roshan Jimenez DO Primary Care Provider Unav ailable Encounter Details Date Type Department Care Team (Latest Contact Info) Description 07/31/2001 Outpatient [facility] [address] [place] [address] Roshan Jimenez DO NO ADDRESS ON FILE HYPERTENSION NOS (Primary Dx); VACCINE FOR INFLUENZA Social History Tobacco Use Types Packs/Day Years Used Date Smoking Tobacco: Never Assessed Sex and Gender Information Value Date Recorded Sex Assigned at Not on file 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
--- OUTSIDE RECORDS SUMMARY | 2025-04-05 18:44 | XMS_ITS | Encounter Summary ---
Author Organization [facility] Address [address] [facility] Attn: [place] [address] Care Team Providers Care Patient Coordinator Front Desk Name Role Phone Roshan Jimenez DO Primary [...] on file Legal Sex Male 4:59 AM AUTOMATIC HEMMER Gender Identity Not on file Sexual Orientation Not on file documented as of this encounter Plan of Treatment Not on file documented as of this encounter Visit Diagnoses Not on filedocumented in this encounter Care Teams Patient Coordinator Front Desk Relationship Specialty Start Date End Date Roshan Jimenez DO NO ADDRESS ON FILE PCP - General 03/26/03 documented as of this encounter
--- OUTSIDE RECORDS SUMMARY | 2025-04-05 18:44 | XMS_ITS | Encounter Summary ---
Author Organization [facility] Address [address] [place] [address] Care Team Providers Care High School Music Teacher Name Role Phone Roshan Jimenez DO Primary Care Provider Unav ailable Encounter Details Date Type Department Care Team (Latest Contact Info) Description 05/30/2002 Outpatient [facility] [phone] [place] [phone] Roshan Jimenez DO NO ADDRESS ON FILE CHRONIC AIRWAY OBSTRUCTION NEC ([facility]) (Primary Dx); OBESITY NOS; LUMBAGO; VACCINE FOR INFLUENZA Social History Tobacco Use Types Packs/Day Years Used Date Smoking Tobacco: Never Assessed Sex and Gender Information Value Date Recorded Sex Assigned at Not on file 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 Sex Male 4:59 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 Gender Identity Not on file Sexual Orientation Not on file documented as of this encounter Plan of Treatment Not on file documented as of this encounter Visit Diagnoses Diagnosis Chronic airway obstruction, not elsewhere classified ([facility])- Primary Chronic airway obstruction, not elsewhere classified Obesity, unspecified Lumbago Need vaccination-viral disease Need for prophylactic vaccination and inoculation against other viral diseases documented in this encounter Care Teams High School Music Teacher Relationship Specialty Start Date End Date Roshan Jimenez DO NO ADDRESS ON FILE PCP - General 03/26/03 documented as of this encounter
--- OUTSIDE RECORDS SUMMARY | 2025-04-05 18:44 | XMS_ITS | Encounter Summary ---
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
--- OUTSIDE RECORDS SUMMARY | 2025-04-05 18:44 | XMS_ITS | Encounter Summary ---
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
--- OUTSIDE RECORDS SUMMARY | 2025-04-05 18:44 | XMS_ITS | Encounter Summary ---
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
--- OUTSIDE RECORDS SUMMARY | 2025-04-05 18:44 | XMS_ITS | Encounter Summary ---
Author Organization [facility] Address [address] [place] [address] Care Team Providers Care Pipelines Supervisor Name Role Phone Roshan Jimenez DO Primary Care Provider Unav ailable Encounter Details Date Type Department Care Team (Latest Contact Info) Description 02/15/2005 Outpatient Historical [facility] [phone] [place] [address] Roshan Jimenez DO NO ADDRESS ON FILE CORONARY ATHEROSCLER UNSPEC VESSEL (Primary Dx) Social History Tobacco Use Types Packs/Day Years Used Date Smoking Tobacco: Never Assessed Sex and Gender Information Value Date Recorded Sex Assigned at Not on file 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
--- OUTSIDE RECORDS SUMMARY | 2025-04-05 18:44 | XMS_ITS | Encounter Summary ---
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
--- OUTSIDE RECORDS SUMMARY | 2025-04-05 18:44 | XMS_ITS | Encounter Summary ---
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
--- OUTSIDE RECORDS SUMMARY | 2025-04-05 18:44 | XMS_ITS | Encounter Summary ---
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
--- OUTSIDE RECORDS SUMMARY | 2025-04-05 18:44 | XMS_ITS | Encounter Summary ---
Author Organization [facility] Address [address] [place] [address] Care Team Providers Care Chemist Biological Name Role Phone Roshan Jimenez DO Primary Care Provider Unav ailable Encounter Details Date Type Department Care Team (Late st Contact Info) Description 04/29/[address] 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
--- OUTSIDE RECORDS SUMMARY | 2025-04-05 18:44 | XMS_ITS | Encounter Summary ---
Author Organization [facility] Address [address] [place] [address] Care Team Providers Care Gate Watch Name Role Phone Roshan Jimenez DO Primary Care Provider Unav ailable Encounter Details Date Type Department Care Team (Late st Contact Info) Description 12/30/2009 Ancillary Orders [facility] 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
[2025-04-05 19:05] LABS: Hematocrit 23.1 % (37-53); Mean Corpuscular HGB Conc 27.3 g/dL (30-55); Mean Corpuscular Hemoglobin 24.2 pg (27-33); Mean Corpuscular Volume 88.8 fl (82-101); Nucleated Red Blood Cells % 0.4 %; Platelet Count 440 10^3/cmm (157-399); Red Blood Count 2.60 10^6/uL (3.85-5.65); White Blood Count 12.22 10^3/uL (3.29-11.43)
--- NOTE | 2025-04-05 19:07 | W.ED.CHESTPA ---
HPI - Chest Pain General: Chief Complaint: Chest Pain Stated Complaint: chest pain Time Seen by Provider: 04/05/25 18:34 History of Present Illness: 74-year-old man with history of morbid obesity, atrial fibrillation, congestive heart failure, chronic kidney disease, chronic anticoagulation on Eliquis, DVT, COPD, chronic hypoxemia on 4 L nasal cannula at all times, who presents emergency room by ambulance from longterm with chest pain. He had a mild central chest pressure. He says this improved with nitroglycerin on the ambulance. No cough. No fever. He is currently off his Eliquis because of a GI bleed from last time he was here. Related Data Home Medications ?Medication ?Instructions ?Recorded ?Confirmed albuterol sulfate 90 mcg/actuation 2 puff inhalation Q4H PRN 11/02/24 03/18/25 aerosol inhaler Shortness Of Breath Or Wheezing aluminum-mag hydroxide-simethicone 30 ml PO Q2H PRN 11/02/24 03/18/25 400 mg-400 mg-40 mg/5 mL oral susp indigeston/heartburn/gas (Mylanta Maximum Strength) apixaban 5 mg tablet (Eliquis) 5 mg PO BID 11/02/24 03/18/25 Held on 03/07/25. Instructions: Resume on 03/28/25. bisacodyl 10 mg rectal suppository 10 mg VA .Q72H PRN Constipation 11/02/24 03/18/25 docusate sodium 100 mg capsule 100 mg PO BID 11/02/24 03/18/25 (Colace) ergocalciferol (vitamin D2) 1,250 50,000 mcg PO Q7D 11/02/24 03/18/25 mcg (50,000 unit) capsule fluoxetine 40 mg capsule 40 mg PO DAILY 11/02/24 03/18/25 fluticasone fur. 200 mcg-umeclid 1 inh inhalation DAILY 11/02/24 03/18/25 62.5 mcg-vilant 25 mcg inhalat.powder (Trelegy Ellipta) magnesium hydroxide 400 mg/5 mL 30 ml PO DAILY PRN Constipation 11/02/24 03/18/25 oral suspension (Milk of Magnesia) multivitamin 1 tab PO QAM 11/02/24 03/18/25 polyethylene glycol 3350 17 17 g PO DAILY PRN bowel management 11/02/24 03/18/25 gram/dose oral powder (Miralax) sennosides 8.6 mg tablet (senna) 8.6 mg PO DAILY 11/02/24 03/18/25 spironolactone 50 mg tablet 50 mg PO DAILY 11/02/24 03/18/25 acetaminophen 325 mg tablet 650 mg PO Q4H PRN general 12/06/24 03/18/25 (Tylenol) discomfort levothyroxine 25 mcg tablet 25 mcg PO DAILY 12/06/24 03/18/25 gabapentin 400 mg capsule 400 mg PO BID neuropathy 01/28/25 03/18/25 loperamide 2 mg tablet (Imodium 2 mg PO Q6H PRN Diarrhea 01/28/25 03/18/25 A-D) oxycodone-acetaminophen 10 mg-325 1 tab PO Q6H PRN Pain 01/28/25 03/18/25 mg tablet protein supplement See Rx Instructions .Route .COMPLEX 01/28/25 03/18/25 albuterol sulfate 2.5 mg/3 mL 2.5 mg continuous nebulization 03/05/25 03/18/25 (0.083 %) solution for nebulization .TID PRN respitory failure aspirin 81 mg tablet,delayed 81 mg PO DAILY 03/05/25 03/18/25 release (Radha Low Dose Aspirin) atorvastatin 40 mg tablet 40 mg PO QPM 03/05/25 03/18/25 clopidogrel 75 mg tablet 75 mg PO DAILY 03/05/25 03/18/25 melatonin 3 mg tablet 6 mg PO DAILY 03/05/25 03/18/25 metoprolol succinate 25 mg 25 mg PO DAILY 03/05/25 03/18/25 tablet,extended release 24 hr nitroglycerin 0.4 mg sublingual See Rx Instructions .Route .COMPLEX 03/05/25 03/18/25 tablet triamcinolone acetonide 0.5 % See Rx Instructions .Route .COMPLEX 03/05/25 03/18/25 topical cream Previous Rx's ?Medication ?Instructions ?Recorded Right cockup splint #1 ea 11/28/24 bumetanide 1 mg tablet 1 mg PO BID #120 tabs 03/07/25 pantoprazole 40 mg tablet,delayed 40 mg PO BIDWMEAL #60 tabs 03/07/25 release potassium chloride 10 mEq 20 meq (2 x 10 mEq) PO DAILY #10 03/07/25 tablet,extended release(part/cryst) tabs sucralfate 1 gram tablet 1 g PO Q6H 12 weeks #336 tabs 03/07/25 Allergies Allergy/AdvReac Type Severity Reaction Status Date / Time broccoli Allergy ADR-Vomitin Verified 03/18/25 09:12 g Review of Systems Narrative: Constitutional symptoms: Negative except as documented in HPI. Skin symptoms: Negative except as documented in HPI. Eye symptoms: Negative except as documented in HPI. ENMT symptoms: Negative except as documented in HPI. Respiratory symptoms: Negative except as documented in HPI. Cardiovascular symptoms: Negative except as documented in HPI. Gastrointestinal symptoms: Negative except as documented in HPI. Genitourinary symptoms: Negative except as documented in HPI. Musculoskeletal symptoms: Negative except as documented in HPI. Neurologic symptoms: Negative except as documented in HPI. Psychiatric symptoms: Negative except as documented in HPI. Endocrine symptoms: Negative except as documented in HPI. PFS ED PFSH: Medical History (Updated 04/05/25 @ 20:02 by Tayler Mark MD) Congestive heart failure Atrial fibrillation CKD (chronic kidney disease) History of deep vein thrombosis DNR (do not resuscitate) [facility] resident Morbid obesity with BMI of 40.0-44.9, adult COPD with acute exacerbation Open wound of right lower leg Open wound of left lower leg Pressure ulcer of right buttock, stage 3 Social History Smoking and tobacco/nicotine status: never used tobacco/nicotine Physical Exam Narrative: EXAM NARRATIVE: General: Alert, no acute distress. Skin: Warm, dry. Head: Normocephalic, atraumatic. Neck: Supple, trachea midline. Eye: Extraocular movements are intact. Ears, nose, mouth and throat: mucosa moist. Cardiovascular: Regular, Normal peripheral perfusion. Respiratory: Lungs are clear to auscultation, respirations are non-labored, breath sounds are equal, Symmetrical chest wall expansion. Gastrointestinal: Soft, Nontender, Non distended Musculoskeletal: Normal ROM, no deformity. Neurological: Alert and oriented, No focal neurological deficit observed. Psychiatric: Cooperative, appropriate mood & affect. Course Vital Signs: Vital signs: Vital Signs Temperature 98.6 F 04/05/25 18:44 Pulse Rate 83 04/05/25 18:44 Respiratory Rate 20 H 04/05/25 18:44 Blood Pressure 121/66 04/05/25 18:44 Pulse Oximetry 100 04/05/25 18:44 Oxygen Delivery Me thod Nasal Cannula 04/05/25 18:44 Oxygen Flow Rate 4 04/05/25 18:44 MDM - Chest Pain Medical Decision Making Differential diagnosis for patient with chest pain includes but is not limited to and based on the above HPI, review of systems and physical exam: Pneumonia. unstable angina. angina. Acute coronary syndrome / HI. Pulmonary embolism. Costochondritis / musculoskeletal. Pleurisy. Pericarditis. Esophageal spasm. Pancreatis. Cholecystitis. Orders placed to evaluate differential diagnosis based on the above differential, HPI and physical exam EKG: Time 1844. Rate 82. Normal sinus rhythm, nonspecific ST abnormalities, no ectopy, normal VA & QRS intervals, This was reviewed and interpreted by myself the ER physician at 1850 Lab Review: Laboratory results were reviewed and interpreted by myself the emergency room physician. Mild leukocytosis. Patient is again anemic with a hemoglobin of 6.3 and will require transfusion. BUN/creatinine are normal. Troponin is at his baseline. I reviewed the patient's medical record. 74-year-old man with history of morbid obesity, atrial fibrillation, congestive heart failure, chronic kidney disease, chronic anticoagulation on Eliquis, DVT, COPD, chronic hypoxemia on 4 L nasal cannula at all times. Reviewed discharge summary from previous admission. Patient had been taken off of his Eliquis secondary to anemia. They will leave him off for a month and see if he continued to have worsening anemia and at that point he might need endoscopy or colonoscopy. Reexamination: Patient remained stable. No increased work of breathing. No altered mental status. No focal motor deficits. Patient stable on his home 4 L nasal cannula. Consultation: I spoke with Dr. Duncan who is on-call for the hospital service who agrees to admission. I ordered 2 units packed red blood cells. He request consultation to general surgery. Consultation: I spoke with Dr. Wang who is on-call for general surgery who will see the patient and will start prep tonight for probable endoscopy and possible colonoscopy tomorrow. Assessment and plan: Acute on chronic anemia Chest pain Coronary artery disease Chronic kidney disease Chronic hypoxemic respiratory failure ?2 units PRBCs ordered in the emergency room. -I discussed the patient with the hospitalist on-call who is admitting the patient. - Discussed findings and plan with patient. Answered any questions. - All laboratory values were reviewed and interpreted personally by myself, the ER physician - All imaging was reviewed and interpreted personally by myself, the ER physician. - Evaluation and treatment of this problem were appropriate in the emergency setting Lab Data 04/05/25 18:59 04/05/25 18:59 Laboratory Results WBC 12.22 10^3/uL (3.29-11.43) H 04/05/25 18:59 RBC 2.60 10^6/uL (3.85-5.65) L 04/05/25 18:59 Hgb 6.30 g/dL (11.27-16.99) L* 04/05/25 18:59 Hct 23.1 % (37-53) L 04/05/25 18:59 MCV 88.8 fl (82-101) 04/05/25 18:59 MCH 24.2 pg (27-33) L 04/05/25 18:59 MCHC 27.3 g/dL (30-55) L 04/05/25 18:59 RDW 17.9 % (12.1-15.1) H 04/05/25 18:59 Plt Count 440 10^3/cmm (157-399) H 04/05/25 18:59 MPV 9.4 fL (7.4-10.4) 04/05/25 18:59 Neut % (Auto) 76.0 % 04/05/25 18:59 Lymph % (Auto) 9.8 % 04/05/25 18:59 [place] % (Auto) 11.5 % 04/05/25 18:59 Eos % (Auto) 1.7 % 04/05/25 18:59 Baso % (Auto) 0.5 % 04/05/25 18:59 Neut # (Auto) 9.28 10^3/uL (1.8-7.7) H 04/05/25 18:59 Lymph # (Auto) 1.2 10^3/uL (0.8-4.8) 04/05/25 18:59 [place] # (Auto) 1.4 10^3/uL (0.2-0.9) H 04/05/25 18:59 Eos # (Auto) 0.2 10^3/uL (0.0-0.8) 04/05/25 18:59 Baso # (Auto) 0.1 10^3/uL (0.0-0.1) 04/05/25 18:59 Nucleated RBC % (auto) 0.4 % 04/05/25 18:59 Nucleated RBCs # 0.1 /100WBC 04/05/25 18:59 Sodium 141 mmol/L (136-145) 04/05/25 18:59 Potassium 4.8 mmol/L (3.5-5.1) 04/05/25 18:59 Chloride 101 mmol/L (98-107) 04/05/25 18:59 Carbon Dioxide 34 mmol/L (22-29) H 04/05/25 18:59 Anion Gap 10.8 (5-19) 04/05/25 18:59 BUN 14 mg/dL (8-23) 04/05/25 18:59 Creatinine 1.0 mg/dL (0.7-1.2) 04/05/25 18:59 GFR Calculation Not Reportable 04/05/25 18:59 Glucose 110 mg/dL (65-115) 04/05/25 18:59 Calculated Osmolality 293 mOsm/kg (285-295) 04/05/25 18:59 Calcium 7.6 mg/dL (8.5-10.5) L 04/05/25 18:59 Total Bilirubin 0.3 mg/dL (0.15-1.2) 04/05/25 18:59 AST 9 U/L (0-40) 04/05/25 18:59 ALT 8 U/L (0-41) 04/05/25 18:59 Alkaline Phosphatase 131 U/L (40-130) H 04/05/25 18:59 Troponin T Baseline 100 ng/L (0-15) H 04/05/25 18:59 NT-Pro-B Natriuret Pep 4840 pg/mL (0-125) H 04/05/25 18:59 Total Protein 7.5 g/dL (6.6-8.7) 04/05/25 18:59 Albumin 2.9 g/dL (3.5-5.2) L 04/05/25 18:59 Globulin 4.6 g/dL (1.3-4.6) 04/05/25 18:59 XR interpretation done by ED provider, pending radiology final review Discharge Plan Discharge Patient Disposition: Admitted As Inpatient Clinical Impression: Anemia, Chest pain, Coronary artery disease, CKD (chronic kidney disease), Chronic hypoxemic respiratory failure Condition: Stable Coding Level of Care Code ED Spring Intern for Chana Glass
[2025-04-05 19:23] LABS: Hemoglobin 6.30 g/dL (11.27-16.99)
[2025-04-05 19:25] LABS: Troponin(5th) Baseline 100 ng/L (0-15)
[2025-04-05 19:43] LABS: Alanine Aminotransferase 8 U/L (0-41); Albumin Level 2.9 g/dL (3.5-5.2); Alkaline Phosphatase 131 U/L (40-130); Anion Gap 10.8 (5-19); Aspartate Amino Transferase 9 U/L (0-40); Blood Urea Nitrogen 14 mg/dL (8-23); Calcium 7.6 mg/dL (8.5-10.5); Carbon Dioxide 34 mmol/L (22-29); Chloride 101 mmol/L (98-107); Creatinine Clr Calc Pharmacy 93.6670; Globulin 4.6 g/dL (1.3-4.6); Glucose 110 mg/dL (65-115); NT Pro B Type Natriuretic Pept 4840 pg/mL (0-125); Osmolality Calculated 293 mOsm/kg (285-295); Potassium 4.8 mmol/L (3.5-5.1); Sodium 141 mmol/L (136-145); Total Protein 7.5 g/dL (6.6-8.7)
--- NOTE | 2025-04-05 20:05 | P.CONIM_ITS ---
Providers/Reason For Consult 2 Consulting Physician/Specialty*: Dr. Wang general surgery Reason for Consult*: GI bleed Primary Care Provider: Otilio Huang History of Present Illness History of Present Illness Edson Jaffe is a 74 year old male whom surgery was consulted for acute anemia. Surgery consulted to rule out GI bleed. Per patient he has had episodes of GI bleed in the past. Anticoagulated. Also complaining of chest pains. Troponin elevated. Medications/Allergies Home Medications ?Medication ?Instructions ?Recorded ?Confirmed ?Last Taken ?Type albuterol sulfate 90 mcg/actuation 2 puff inhalation Q 4H PRN 11/02/24 04/06/25 12/05/24 History aerosol inhaler Shortness Of Breath Or [place] ing aluminum-mag hydroxide-simethicone 30 ml PO Q2H PRN 04/06/25 04/05/25 History 400 mg-400 mg-40 mg/5 mL oral susp indigeston/heartbur n/gas (Mylanta Maximum Strength) bisacodyl 10 mg rectal suppository 10 mg DC .Q72H PRN Constipation 11/02/24 04/06/25 Unknown History docusate sodium 100 mg capsule 100 mg PO BID 11/02/24 04/06/25 04/05/25 History (Colace) ergocalciferol (vitamin D2) 1,250 50,000 mcg PO Q30D 0 11/02/24 04/06/25 03/28/25 History mcg (50,000 unit) capsule fluticasone fur. 200 mcg-umeclid 1 inh inhalation THUY Y 11/02/24 04/06/25 04/05/25 History 62.5 mcg-vilant 25 mcg inhalat.powder (Trelegy Ellipta) magnesium hydroxide 400 mg/5 mL 30 ml PO DAILY PRN Con stipation 11/02/24 04/06/25 02/25/25 08:30 History oral suspension (Milk of Magnesia) multivitamin 1 tab PO QAM 11/02/2404/05/25 History polyethylene glycol 3350 17 17 g PO DAILY PRN bowel ma nagement 11/02/24 04/06/25 11/20/24 History gram/dose oral powder (Miralax) sennosides 8.6 mg tablet (senna) 8.6 mg PO DAILY PRN C onstipation 11/02/24 04/06/25 02/09/25 History spironolactone 50 mg tablet 50 mg PO DAILY 11/02/2404/05/25 History Right cockup splint #1 ea 11/28/24 04/06/25 Unkn own Rx acetaminophen 325 mg tablet 650 mg PO Q4H PRN elevated 12/06/24 04/06/25 01/30/25 History (Tylenol) temp/pain loperamide 2 mg tablet (Imodium 2 mg PO Q6H PRN Diarrh ea 01/28/25 04/06/25 02/01/25 History A-D) oxycodone-acetaminophen 10 mg-325 1 tab PO Q6H PRN Deb n 01/28/25 04/06/25 03/04/25 16:30 History mg tablet albuterol sulfate 2.5 mg/3 mL 2.5 mg continuous nebuli zation 03/05/25 04/06/25 03/04/25 11:40 History (0.083 %) solution for nebulization .TID PRN respitory failure atorvastatin 40 mg tablet 40 mg PO QAM 03/05/2504/05/25 History clopidogrel 75 mg tablet 75 mg PO DAILY 03/05/2503/2804/05/25 History melatonin 3 mg tablet 6 mg PO BEDTIME PRN Insomnia 03/05/25 04/06/25 Unknown History metoprolol succinate 25 mg 25 mg PO DAILY 03/05/2506/2104/05/25 History tablet,extended release 24 hr nitroglycerin 0.4 mg sublingual See Rx Instructions .R oute .COMPLEX 03/05/25 04/06/25 Unknown History tablet triamcinolone acetonide 0.5 % See Rx Instructions .Rou te .COMPLEX 03/05/25 04/06/25 04/04/25 History topical cream bisacodyl 5 mg tablet 5 mg PO DAILY PRN Constipati on 04/06/25 04/06/25 Unknown History bumetanide 1 mg tablet 1 mg PO BEDTIME 04/06/2506/2104/04/25 History empagliflozin 10 mg tablet 10 mg PO DAILY 08/06/2104/05/25 History (Jardiance) fluoxetine 10 mg capsule 10 mg PO DAILY 04/06/2503/2804/05/25 History fluoxetine 20 mg capsule 20 mg PO DAILY 04/06/2503/2804/05/25 History gabapentin 300 mg capsule 300 mg PO BID 04/06/2504/0604/05/25 History levothyroxine 50 mcg tablet 50 mcg PO DAILY 04/06/25 0 04/06/25 04/05/25 History pantoprazole 40 mg tablet,delayed 40 mg PO DAILY 04/0604/06/25 04/05/25 History release potassium chloride 10 mEq 10 meq PO BID 04/06/2504/0604/05/25 History tablet,extended release(part/cryst) Allergies Allergy/AdvReac Type Severity Reaction Status Date / Time broccoli Allergy ADR-Vomitin Verified 03/18/25 09:12 g PFSH Acute 2 PFSH: Medical History (Updated 04/05/25 @ 20:52 by Vijay Duncan MD) Congestive heart failure Atrial fibrillation CKD (chronic kidney disease) History of deep vein thrombosis DNR (do not resuscitate) detention resident Morbid obesity with BMI of 40.0-44.9, adult COPD with acute exacerbation Open wound of right lower leg Open wound of left lower leg Pressure ulcer of right buttock, stage 3 Social History Smoking and tobacco/nicotine status: never used tobacco/nicotine Vitals/I&O/Wt Last Vital Signs Temp 98.6 F 04/05/25 18:44 Pulse 83 04/05/25 18:44 Resp 20 H 04/05/25 18:44 BP 121/66 04/05/25 18:44 Pulse Ox 100 04/05/25 18:44 O2 Del Method Nasal Cannula 04/05/25 18:44 O2 Flow Rate 4 04/05/25 18:44 Weight last 48 hrs Weight 290 lb Physical Exam 2 Narrative: Chest: Tachypneic on nasal cannula Heart: Regular rate and rhythm. Abdomen: Soft, nontender, nondistended. Data 04/06/25 13:57 04/06/25 04:09 A&P Assessment and plan 1. Blood in stool: 2. Anemia: Plan: 74-year-old male whom surgery was consulted to rule out GI bleed. No evidence of overt GI bleed. Recommend medical optimization prior to considering EGD and colonoscopy. Rest of care per hospitalist. PDMP PDMP Reviewed: Not Reviewed Coding Level of Care Code 34069 Diagnoses Blood in stool K92.1 Anemia D64.9
--- NOTE | 2025-04-05 20:05 | PM.CONSULT ---
Providers/Reason For Consult Consulting Physician/Specialty*: Dr. Wang general surgery Reason for Consult*: GI bleed Primary Care Provider: Otilio Huang History of Present Illness History of Present Illness Edson Jaffe is a 74 year old male whom surgery was consulted for acute anemia. Surgery consulted to rule out GI bleed. Per patient he has had episodes of GI bleed in the past. Anticoagulated. Also complaining of chest pains. Troponin elevated. Medications/Allergies Home Medications ?Medication ?Instructions ?Recorded ?Confirmed ?Last Taken ?Type albuterol sulfate 90 mcg/actuation 2 puff inhalation Q4H PRN 11/02/24 04/06/25 12/05/24 History aerosol inhaler Shortness Of Breath Or Wheezing aluminum-mag hydroxide-simethicone 30 ml PO Q2H PRN 11/02/24 04/06/25 04/05/25 History 400 mg-400 mg-40 mg/5 mL oral susp indigeston/heartburn/gas (Mylanta Maximum Strength) bisacodyl 10 mg rectal suppository 10 mg HI .Q72H PRN Constipation 11/02/24 04/06/25 Unknown History docusate sodium 100 mg capsule 100 mg PO BID 11/02/24 04/06/25 04/05/25 History (Colace) ergocalciferol (vitamin D2) 1,250 50,000 mcg PO Q30D 11/02/24 04/06/25 03/28/25 History mcg (50,000 unit) capsule fluticasone fur. 200 mcg-umeclid 1 inh inhalation DAILY 11/02/24 04/06/25 04/05/25 History 62.5 mcg-vilant 25 mcg inhalat.powder (Trelegy Ellipta) magnesium hydroxide 400 mg/5 mL 30 ml PO DAILY PRN Constipation 11/02/24 04/06/25 02/25/25 08:30 History oral suspension (Milk of Magnesia) multivitamin 1 tab PO QAM 11/02/24 04/06/25 04/05/25 History polyethylene glycol 3350 17 17 g PO DAILY PRN bowel management 11/02/24 04/06/25 11/20/24 History gram/dose oral powder (Miralax) sennosides 8.6 mg tablet (senna) 8.6 mg PO DAILY PRN Constipation 11/02/24 04/06/25 02/09/25 History spironolactone 50 mg tablet 50 mg PO DAILY 11/02/24 04/06/25 04/05/25 History Right cockup splint #1 ea 11/28/24 04/06/25 Unknown Rx acetaminophen 325 mg tablet 650 mg PO Q4H PRN elevated 12/06/24 04/06/25 01/30/25 History (Tylenol) temp/pain loperamide 2 mg tablet (Imodium 2 mg PO Q6H PRN Diarrhea 01/28/25 04/06/25 02/01/25 History A-D) oxycodone-acetaminophen 10 mg-325 1 tab PO Q6H PRN Pain 01/28/25 04/06/25 03/04/25 16:30 History mg tablet albuterol sulfate 2.5 mg/3 mL 2.5 mg continuous nebulization 03/05/25 04/06/25 03/04/25 11:40 History (0.083 %) solution for nebulization .TID PRN respitory failure atorvastatin 40 mg tablet 40 mg PO QAM 03/05/25 04/06/25 04/05/25 History clopidogrel 75 mg tablet 75 mg PO DAILY 03/05/25 04/06/25 04/05/25 History melatonin 3 mg tablet 6 mg PO BEDTIME PRN Insomnia 03/05/25 04/06/25 Unknown History metoprolol succinate 25 mg 25 mg PO DAILY 03/05/25 04/06/25 04/05/25 History tablet,extended release 24 hr nitroglycerin 0.4 mg sublingual See Rx Instructions .Route .COMPLEX 03/05/25 04/06/25 Unknown History tablet triamcinolone acetonide 0.5 % See Rx Instructions .Route .COMPLEX 03/05/25 04/06/25 04/04/25 History topical cream bisacodyl 5 mg tablet 5 mg PO DAILY PRN Constipation 04/06/25 04/06/25 Unknown History bumetanide 1 mg tablet 1 mg PO BEDTIME 04/06/25 04/06/25 04/04/25 History empagliflozin 10 mg tablet 10 mg PO DAILY 04/06/25 04/06/25 04/05/25 History (Jardiance) fluoxetine 10 mg capsule 10 mg PO DAILY 04/06/25 04/06/25 04/05/25 History fluoxetine 20 mg capsule 20 mg PO DAILY 04/06/25 04/06/25 04/05/25 History gabapentin 300 mg capsule 300 mg PO BID 04/06/25 04/06/25 04/05/25 History levothyroxine 50 mcg tablet 50 mcg PO DAILY 04/06/25 04/06/25 04/05/25 History pantoprazole 40 mg tablet,delayed 40 mg PO DAILY 04/06/25 04/06/25 04/05/25 History release potassium chloride 10 mEq 10 meq PO BID 04/06/25 04/06/25 04/05/25 History tablet,extended release(part/cryst) Allergies Allergy/AdvReac Type Severity Reaction Status Date / Time broccoli Allergy ADR-Vomitin Verified 03/18/25 09:12 g PFSH Acute PFSH: Medical History (Updated 04/05/25 @ 20:52 by Vijay Duncan MD) Congestive heart failure Atrial fibrillation CKD (chronic kidney disease) History of deep vein thrombosis DNR (do not resuscitate) group home resident Morbid obesity with BMI of 40.0-44.9, adult COPD with acute exacerbation Open wound of right lower leg Open wound of left lower leg Pressure ulcer of right buttock, stage 3 Social History Smoking and tobacco/nicotine status: never used tobacco/nicotine Vitals/I&O/Wt Last Vital Signs Temp 98.6 F 04/05/25 18:44 Pulse 83 04/05/25 18:44 Resp 20 H 04/05/25 18:44 BP 121/66 04/05/25 18:44 Pulse Ox 100 04/05/25 18:44 O2 Del Method Nasal Cannula 04/05/25 18:44 O2 Flow Rate 4 04/05/25 18:44 Weight last 48 hrs Weight 290 lb Physical Exam Narrative: Chest: Tachypneic on nasal cannula Heart: Regular rate and rhythm. Abdomen: Soft, nontender, nondistended. Data 04/06/25 13:57 04/06/25 04:09 A&P Assessment and plan 1. Blood in stool: 2. Anemia: Plan: 74-year-old male whom surgery was consulted to rule out GI bleed. No evidence of overt GI bleed. Recommend medical optimization prior to considering EGD and colonoscopy. Rest of care per hospitalist. PDMP PDMP Reviewed: Not Reviewed Coding Level of Care Code 92162 Diagnoses Blood in stool K92.1 Anemia D64.9
[2025-04-05 20:29] LABS: ABG PH Result 7.32 (7.35-7.45); Arterial Blood Gas Hematocrit 21.1 % (42-52); Blood Gas Allen Test Pos; Blood Gas Operator Identificat gerca; Blood Gas Sample Site Radial, left; Blood Gas Sample Type Arterial; HCO3 ABG 36.8 mmol/L (22-26); PO2 ABG 131.0 mmHg (80.0-100.0)
[2025-04-05 20:30] LABS: ABG PCO2 71.6 mmHg (35-45); Blood Gas LPM 4.0 %
--- NOTE | 2025-04-05 20:41 | PM.HP ---
Providers/Chief Complaint Primary Care Provider: Otilio Huang Chief Complaint: chest pain History of Present Illness Edson Jaffe is a 74 year old male with a past medical history of CAD s/p PCI, recent history of anemia, positive occult stool blood, requiring 4 units of blood, history of DVT/A-fib, was on Eliquis which is on hold, according to [facility]iary patient is only on Plavix, not on aspirin, history of CHF, history of CKD, has chronic Robertson in place who presents [facility] from [facility] for chest pain. currently patient is alert to person, not to place, not to time, he can follow commands he can answer basic questions, he reports chest pain, reports shortness of breath but continually during my conversation, he falls asleep, he appears to be in mild respiratory distress, nasal flaring, intercostal retractions, suprasternal retractions, tachypnea, audible wheezing, crackles heard, 2+ pitting edema denies any bloody or black stools. This is a most of the history I could get from the patient, I ordered an ABG, patient appears to be in mild respiratory failure from CHF, he is going to receive blood products due to hemoglobin of 6.3. No family was at bedside, spoke to penitentiary, according to penitentiary, recently he was discharged back to penitentiary from [facility], he is only on Plavix at the penitentiary, aspirin and Eliquis have been discontinued, he has been complaining of increased shortness of breath, increased weakness, episodes of falling asleep, chest discomfort Review of Systems Card: Reports: chest pain Resp: Reports: dyspnea Medications/Allergies Home Medications ?Medication ?Instructions ?Recorded ?Confirmed ?Last Taken ?Type albuterol sulfate 90 mcg/actuation 2 puff inhalation Q4H PRN 11/02/24 03/18/25 12/05/24 History aerosol inhaler Shortness Of Breath Or Wheezing aluminum-mag hydroxide-simethicone 30 ml PO Q2H PRN 11/02/24 03/18/25 02/22/25 19:45 History 400 mg-400 mg-40 mg/5 mL oral susp indigeston/heartburn/gas (Mylanta Maximum Strength) apixaban 5 mg tablet (Eliquis) 5 mg PO BID 0303/18/25 03/04/25 16:30 History Held on 03/07/25. Instructions: Resume on 03/28/25. bisacodyl 10 mg rectal suppository 10 mg SD .Q72H PRN Constipation 11/02/24 03/18/25 Unknown History docusate sodium 100 mg capsule 100 mg PO BID 11/02/24 03/18/25 02/10/25 History (Colace) ergocalciferol (vitamin D2) 1,250 50,000 mcg PO Q7D 11/02/24 03/18/25 02/24/25 09:00 History mcg (50,000 unit) capsule fluoxetine 40 mg capsule 40 mg PO DAILY 11/02/24 03/18/25 03/04/25 08:45 History fluticasone fur. 200 mcg-umeclid 1 inh inhalation DAILY 11/02/24 03/18/25 03/04/25 08:45 History 62.5 mcg-vilant 25 mcg inhalat.powder (Trelegy Ellipta) magnesium hydroxide 400 mg/5 mL 30 ml PO DAILY PRN Constipation 11/02/24 03/18/25 02/25/25 08:30 History oral suspension (Milk of Magnesia) multivitamin 1 tab PO QAM 11/02/24 03/18/25 03/04/25 08:45 History polyethylene glycol 3350 17 17 g PO DAILY PRN bowel management 11/02/24 03/18/25 11/20/24 History gram/dose oral powder (Miralax) sennosides 8.6 mg tablet (senna) 8.6 mg PO DAILY 11/02/24 03/18/25 02/09/25 History spironolactone 50 mg tablet 50 mg PO DAILY 11/02/24 03/18/25 03/04/25 08:45 History Right cockup splint #1 ea 11/28/24 03/18/25 Unknown Rx acetaminophen 325 mg tablet 650 mg PO Q4H PRN general 12/06/24 03/18/25 01/30/25 History (Tylenol) discomfort levothyroxine 25 mcg tablet 25 mcg PO DAILY 12/06/24 03/18/25 03/04/25 08:45 History gabapentin 400 mg capsule 400 mg PO BID neuropathy 01/28/25 03/18/25 03/04/25 08:45 History loperamide 2 mg tablet (Imodium 2 mg PO Q6H PRN Diarrhea 01/28/25 03/18/25 02/01/25 History A-D) oxycodone-acetaminophen 10 mg-325 1 tab PO Q6H PRN Pain 01/28/25 03/18/25 03/04/25 16:30 History mg tablet protein supplement See Rx Instructions .Route .COMPLEX 01/28/25 03/18/25 02/10/25 History albuterol sulfate 2.5 mg/3 mL 2.5 mg continuous nebulization 03/05/25 03/18/25 03/04/25 11:40 History (0.083 %) solution for nebulization .TID PRN respitory failure aspirin 81 mg tablet,delayed 81 mg PO DAILY 03/05/25 03/18/25 03/04/25 08:45 History release (Radha Low Dose Aspirin) atorvastatin 40 mg tablet 40 mg PO QPM 03/05/25 03/18/25 03/03/25 20:15 History clopidogrel 75 mg tablet 75 mg PO DAILY 03/05/25 03/18/25 03/04/25 08:45 History melatonin 3 mg tablet 6 mg PO DAILY 03/05/25 03/18/25 Unknown History metoprolol succinate 25 mg 25 mg PO DAILY 03/05/25 03/18/25 03/04/25 08:45 History tablet,extended release 24 hr nitroglycerin 0.4 mg sublingual See Rx Instructions .Route .COMPLEX 03/05/25 03/18/25 Unknown History tablet triamcinolone acetonide 0.5 % See Rx Instructions .Route .COMPLEX 03/05/25 03/18/25 03/04/25 10:35 History topical cream bumetanide 1 mg tablet 1 mg PO BID #120 tabs 03/07/25 03/18/25 Unknown Rx pantoprazole 40 mg tablet,delayed 40 mg PO BIDWMEAL #60 tabs 03/07/25 03/18/25 03/04/25 08:45 Rx release potassium chloride 10 mEq 20 meq (2 x 10 mEq) PO DAILY #10 03/07/25 03/18/25 03/04/25 08:45 Rx tablet,extended release(part/cryst) tabs sucralfate 1 gram tablet 1 g PO Q6H 12 weeks #336 tabs 03/07/25 03/18/25 Unknown Rx Allergies Allergy/AdvReac Type Severity Reaction Status Date / Time broccoli Allergy ADR-Vomitin Verified 03/18/25 09:12 g PFSH Acute PFSH: Medical History Congestive heart failure Atrial fibrillation CKD (chronic kidney disease) History of deep vein thrombosis DNR (do not resuscitate) residential resident Morbid obesity with BMI of 40.0-44.9, adult COPD with acute exacerbation Open wound of right lower leg Open wound of left lower leg Pressure ulcer of right buttock, stage 3 Social History Smoking and tobacco/nicotine status: never used tobacco/nicotine Vitals/I&O/Wt Last Vital Signs Temp 98.6 F 04/05/25 18:44 Pulse 83 04/05/25 18:44 Resp 20 H 04/05/25 18:44 BP 121/66 04/05/25 18:44 Pulse Ox 100 04/05/25 18:44 O2 Del Method Nasal Cannula 04/05/25 18:44 O2 Flow Rate 4 04/05/25 18:44 Weight last 48 hrs Weight 131.542 kg Physical Exam Const: COMMON NORMALS: no acute distress ORIENTATION/CONSCIOUSNESS: Yes awake, Yes oriented to person and Yes confused; not oriented to place and not oriented to time OTHER: Conjunctival pallor Eye: COMMON NORMALS: Equal, round and reactive pupils present Lymph: LYMPHATIC: no lymphadenopathy noted Resp: AUSCULTATION: crackles and wheezes OTHER: Tachypnea, suprasternal retractions, intercostal retractions, nasal flaring, diffuse crackles in all lung portillo Cardio: COMMON NORMALS: no JVD, regular rate, regular rhythm, S1 normal heart sound present and S2 normal heart sound present RATE: regular rate RHYTHM: regular rhythm HEART SOUNDS: S1 normal heart sound present and S2 normal heart sound present GI: COMMON NORMALS: Normal to inspection, nondistended, normoactive bowel sounds present, Soft to palpation and non-tender : COMMON NORMALS: Yes no CVA tenderness Extremity: OTHER: 2+ pitting edema Neuro: COMMON NORMALS: moves all extremities OTHER: Does follow some neurologic testing moves upper and lower extremities to commands, but easily falls back asleep, cannot discern any focal weakness, no slurring of words, no focal weakness, no facial droop but neurologic testing is difficult given his encephalopathy Psych: COMMON NORMALS: mental status grossly normal Quick SOFA Score: Respiratory Rate: 20 Blood Pressure: 121/66 [place] Coma Scale: 15 qSOFA Score: 0 If qSOFA score 2 or greater, continue: Blood Pressure Mean: 84 Bilirubin (mg/dl): 0.3 Platelets (x10?/ml): 440 Creatinine (mg/dl): 1.0 Evaluation: Current stage of sepsis: sepsis Sepsis stage criteria used: [facility] Sep-1 and Sepsis-3 Crystalloid fluids: no fluids ordered Blood cultures ordered: Yes Possible source: pulmonary and genitourinary Focused Exam: Vital signs: Temp Pulse Resp BP Pulse Ox O2 Del Method O2 Flow Rate 04/05/25 18:44 98.6 F 83 20 H 121/66 100 Nasal Cannula 4 Capillary refill: > 3 Seconds Peripheral pulse strength: 2+ Slightly Diminished Peripheral pulse location: Radial and Pedal Skin exam: turgor normal Date exam was performed: 04/05/25 Time exam was performed: 20:55 Sepsis Screen No Definite Risk Today, 18:44 Respiratory Rate, (12 - 18) 20 breaths/min H Today, 18:44 Blood Pressure 121/66 mmHg Today, 18:44 [place] Coma Scale Score 15 Today, 18:44 Quick SOFA Score 0 Today, 18:44 SOFA Score: [place] Coma Scale Score 15 Today, 18:44 Blood Pressure Mean 84 mmHg Today, 18:44 Total Bilirubin, (0.15-1.2) 0.3 mg/dL Today, 18:59 Platelet Count, (157-399) 440 10^3/cmm H Today, 18:59 Creatinine, (0.7-1.2) 1.0 mg/dL Today, 18:59 Data 04/05/25 18:59 04/05/25 18:59 A&P Assessment and plan 1. Acute on chronic HFrEF (heart failure with reduced ejection fraction): 2. Coronary artery disease: 3. Elevated troponin: 4. Atrial fibrillation: 5. History of deep vein thrombosis: 6. CKD (chronic kidney disease): 7. Iron deficiency anemia: 8. Anemia: 9. NSTEMI (non-ST elevated myocardial infarction): 10. Acute respiratory failure with hypoxia and hypercarbia: 11. Acute encephalopathy: Plan: Acute encephalopathy - Secondary to hypercarbia, hypoxia - Possible UTI? History of recurrent UTIs, chronic Robertson catheter - Possible sepsis? Has leukocytosis, awaiting lactic acid, UA, chest x-ray does show increased rales at lung bases possible atelectasis though other etiologies not excluded, CRP, Pro-Nathaniel, sputum culture, blood cultures ordered - Associated anemia - Neurochecks - NIH stroke scale - Monitor mentation Acute hypoxic hypercarbic respiratory failure - Multifactorial - Concerns for fluid overload, systolic CHF exacerbation - Patient is off Eliquis, history of DVT possible hypercoagulable event?, CT imaging of the chest ordered - Given patient's leukocytosis, encephalopathy, respiratory status, concern for sepsis possible pneumonia? Plan - CT angiogram of chest to evaluate for PE - For now I am going to order broad-spectrum antibiotic therapy vancomycin, Zosyn, until I can get some of the imaging and test results back -He will be receiving blood products, risk of further fluid overload - Bumex 1 mg IV push every 8 hours - Metolazone - DuoNeb, budesonide - Respiratory therapy - BiPAP therapy Sepsis? -History of chronic Robertson catheter, history of recurrent UTIs, multidrug-resistant - Will obtain a UA - Will obtain a CT angiogram of chest - Will obtain CRP, Pro-Nathaniel - Will obtain blood cultures - For now continue broad-spectrum antibiotic therapy vancomycin, Zosyn - Patient does not qualify for fluid therapy as he is receiving blood products for his acute anemia, and his BNP is over 4000 is in respiratory failure from systolic diastolic CHF, high risk of worsening respiratory failure NSTEMI - With recent history of PCI at [facility] - We will have to obtain the records - Is not on aspirin is only on Plavix - Had chest pain complaints - Serial EKGs, start troponins, telemetry monitoring -Type I versus type II NSTEMI - Cardiology consulted - Continue Plavix - Continue statin - Continue beta-vaishnavi - Cardiac echo - Will hold off on therapeutic anticoagulant therapy as there is concern for acute anemia Acute anemia - During last hospitalization Hemoccult stools were positive for blood, required 4 units of blood, Eliquis was stopped - Now on Plavix - History of PCI within the last few months Plan - Will receive 2 units PRBC - Protonix - Carafate - N.p.o. - Monitor hemoglobin - General Surgery consulted N.p.o. DNR/DNI Protonix PDMP PDMP Reviewed: Not Reviewed Attestations Medical Necessity Statement*: Patient requires hospitalization, inpatient, greater than 2 midnights, for acute hypoxic respiratory failure, acute CHF exacerbation, acute anemia, acute hypercarbia, acute encephalopathy, NSTEMI Diagnoses Acute on chronic HFrEF (heart failure with reduced ejection fraction) I50.23 Coronary artery disease I25.10 Elevated troponin R79.89 Atrial fibrillation I48.91 History of deep vein thrombosis Z86.718 CKD (chronic kidney disease) N18.9 Iron deficiency anemia D50.9 Anemia D64.9 NSTEMI (non-ST elevated myocardial infarction) I21.4 Acute respiratory failure with hypoxia and hypercarbia J96.01; J96.02 Acute encephalopathy G93.40
[2025-04-05 20:50] LABS: INR 1.02 (0.8-1.2); Partial Thromboplastin Time 27.6 SECONDS (23.9-36.7); Prothrombin Time 14.10 SECONDS (12.1-14.9)
--- NOTE | 2025-04-05 20:59 | CTR_ITS ---
PROCEDURE INFORMATION: Exam: CTA Chest With Contrast Exam date and time: 04/05/2025 10:01 PM Age: 74 years old Clinical indication: Shortness of breath; Prior surgery; Surgery date: <1 month; Surgery type: Coronary stents x 2 two weeks ago. SOB with hypoxia. History of pe, chf, and copd. Wearing life vest. ; Additional info: SOB, off eliquis, HX of dvt TECHNIQUE: Imaging protocol: Computed tomographic angiography of the chest with contrast. Exam focused on the arteries. 3D rendering (Not supervised by radiologist): MIP and/or 3D reconstructed images were created by the technologist. Radiation optimization: All CT scans at this facility use at least one of these dose optimization techniques: automated exposure control; mA and/or kV adjustment per patient size (includes targeted exams where dose is matched to clinical indication); or iterative reconstruction. Contrast material: OMNI 350; Contrast volume: 70 ml; Contrast route: INTRAVENOUS (IV); COMPARISON: CR (CHEST, ) 04/05/2025 6:54 PM RADIATION DOSE METRICS: Total DLP (mGy-cm): 570.36 FINDINGS: Pulmonary arteries: Normal. No pulmonary emboli. Aorta: Aortic atherosclerosis. Coronary atherosclerosis. Lungs: See Pleural spaces finding. Pleural spaces: Trace right and mild left pleural effusion with associated airspace opacity, likely compressive atelectasis with superimposed airspace disease of other etiology not totally excluded. Heart: Unremarkable. No cardiomegaly. No pericardial effusion. Lymph nodes: Unremarkable. No enlarged lymph nodes. Bones/joints: Mild degenerative changes of thoracic spine. Soft tissues: Unremarkable. Cholecystectomy clips. Visualized upper abdomen otherwise unremarkable. Other findings: Motion artifact limits exam. CT/CT angio chest PE protcl [id number] IMPRESSION: No definitive radiographic evidence of pulmonary embolism. Trace right and mild left pleural effusion with associated airspace opacity, likely compressive atelectasis with superimposed airspace disease of other etiology not totally excluded. Aortic atherosclerosis.
[2025-04-05 21:11] LABS: Lactic Sepsis W/Reflex 0.9 mmol/L (0.5-2.2)
[2025-04-05 21:47] LABS: Troponin 5 2HR Delta 1.1 ABS# (0-10)
[2025-04-05 21:50] LABS: Troponin 5 2HR 101.1 ng/L (0-15)
[2025-04-05] MEDS: iohexol 350 mg/mL 500 mL Btl (per mL) IV (22:02)
[2025-04-05 23:08] LABS: Procalcitonin 0.13 ng/mL (0-0.5)
[2025-04-05] MEDS: bumetanide 0.25 mg/mL SDV 4 mL 1 MG IVP (23:27)
[2025-04-05] MEDS: pantoprazole 40 mg SDV IVP (23:27)
[2025-04-05] MEDS: sucralfate 1 gm/10 mL Oral Liq UDC PO (23:27)
[2025-04-05] MEDS: piperacillin-tazobactam 4.5 GM in sodium chloride 0.9% (plus) 50 ML IV (23:38)
[2025-04-06] VITALS (68 sets, daily range): BP systolic 92–138; BP diastolic 44–84; PULSE 70–97; RESP 10–39; TEMP 36.6–37.9; O2SAT 84–100
[2025-04-06 01:36] LABS: Glucose Urine UA Trace (Normal); Nitrate Urine Negative (Negative); Specific Gravity, Urine 1.012 (1.005-1.030)
[2025-04-06 01:41] LABS: Add Urine Microscopic? YES
[2025-04-06 01:44] LABS: Troponin 5 6HR Delta 0.1 ng/L (0-12)
[2025-04-06 01:50] LABS: Hemoglobin 7.20 g/dL (11.27-16.99)
[2025-04-06 01:51] LABS: Troponin 5 6HR 100.1 ng/L (0-15)
[2025-04-06 02:11] LABS: Ferritin 36 ng/mL (30-400); Iron 11 ug/dL (59-158); Total Iron Binding Capacity 317 mcg/dl; Unsaturated Iron Binding 306 ug/dL (112-347)
[2025-04-06] MEDS: sucralfate 1 gm/10 mL Oral Liq UDC PO ×4 (04:57→22:49)
[2025-04-06 05:23] LABS: Hematocrit 27.5 % (37-53); Hemoglobin 7.50 g/dL (11.27-16.99); Mean Corpuscular HGB Conc 27.3 g/dL (30-55); Mean Corpuscular Hemoglobin 24.4 pg (27-33); Mean Corpuscular Volume 89.6 fl (82-101); Nucleated Red Blood Cells % 0.3 %; Platelet Count 427 10^3/cmm (157-399); Red Blood Count 3.07 10^6/uL (3.85-5.65); White Blood Count 12.33 10^3/uL (3.29-11.43)
[2025-04-06 05:47] LABS: Alanine Aminotransferase 7 U/L (0-41); Albumin Level 2.7 g/dL (3.5-5.2); Alkaline Phosphatase 129 U/L (40-130); Anion Gap 10.8 (5-19); Aspartate Amino Transferase 9 U/L (0-40); Blood Urea Nitrogen 15 mg/dL (8-23); Calcium 8.2 mg/dL (8.5-10.5); Carbon Dioxide 34 mmol/L (22-29); Chloride 96 mmol/L (98-107); Creatinine Clr Calc Pharmacy 86.8545; Globulin 5.5 g/dL (1.3-4.6); Glucose 109 mg/dL (65-115); Magnesium 2.7 mg/dL (1.7-2.3); Osmolality Calculated 283 mOsm/kg (285-295); Potassium 4.8 mmol/L (3.5-5.1); Sodium 136 mmol/L (136-145); Total Protein 8.2 g/dL (6.6-8.7)
[2025-04-06 05:57] LABS: NT Pro B Type Natriuretic Pept 5128 pg/mL (0-125)
[2025-04-06] MEDS: bumetanide 0.25 mg/mL SDV 4 mL 1 MG IVP ×3 (06:10→22:49)
--- NOTE | 2025-04-06 08:12 | ECG_ITS ---
[facility] Test Date: 2025-04-06 Pat Name: Edson Jaffe Department: Room: ICU06 Gender: Male Wagon Person: : 1950 Requested By: Tayler Mcintyre Order Number: [id number] Reading MD: OSCAR NORRIS Measurements Intervals Silver Rate: 75 P: 65 MD: 188 QRS: -4 QRSD: 93 T: -58 QT: 381 QTc: 428 Interpretive Statements SINUS RHYTHM LOW QRS VOLTAGE IN PRECORDIAL LEADS [QRS DEFLECTION < 1.0 mV IN CHEST LEADS] SEPTAL MYOCARDIAL INFARCTION , PROBABLY OLD [40+ ms Q WAVE IN V1/V2] Compared to ECG 03/05/2025 16:53:30 T-wave abnormality no longer present Possible ischemia no longer present Myocardial infarct finding still present Electronically Signed On 04-08-2025 20:09:05 CDT by OSCAR NORRIS [email or web address]
[2025-04-06 08:18] LABS: Hematocrit 24.4 % (37-53); Hemoglobin 6.80 g/dL (11.27-16.99)
[2025-04-06] MEDS: piperacillin-tazobactam 3.375 GM in sodium chloride 0.9% (plus) 50 ML IV ×3 (09:01→23:43)
--- NOTE | 2025-04-06 09:01 | PC.PHAR ---
Several dosage changes and discontinued medications since last med rec completed.
[2025-04-06] MEDS: pantoprazole 40 mg SDV IVP ×2 (10:45→22:49)
[2025-04-06 14:10] LABS: Hematocrit 27.6 % (37-53); Hemoglobin 7.80 g/dL (11.27-16.99)
--- NOTE | 2025-04-06 17:13 | P.PN_ITS ---
Subjective 2 Subjective: Encephalopathy is improving after having received blood transfusion. He is currently awake alert oriented. This morning his hemoglobin was down to 6.8 and spite of having received a transfusion overnight. Vitals/I&O/Wt Last Vital Signs Temp 98.7 F 04/06/25 15:02 Pulse 80 04/06/25 15:15 Resp 18 04/06/25 15:15 BP 103/51 04/06/25 15:02 Pulse Ox 100 04/06/25 15:15 O2 Del Method Nasal Cannula 04/06/25 15:15 O2 Flow Rate 4 04/06/25 15:15 FiO2 30 04/06/25 04:30 04/06/25 04/06/25 04/06/25 06:59 14:59 22:59 Intake Total 990 / 990 300 / 300 Output Total 2300 / 2300 1950 / 1950 Balance -1310 / -1310 -1650 / -1650 Weight last 48 hrs Weight 136.5 kg Weight 136.5 kg Weight 131.542 kg Physical Exam 2 Narrative: General: No acute distress, AO x3 HEENT: PERRLA, pupils bilaterally equal and reactive, pallors not present Chest: crackles to auscultation B/L all areas CVS: S1-S2 regular, no murmurs, no tachycardia, no gallops, no rubs Abdomen: Soft, nontender, no organomegaly, bowel sounds present Neuro: No focal deficits, no facial deformity, AO x3, power 5/5 in all limbs EXT: Urinary Catheter Management: Robertson: Cath Placed During This Visit: yes Reason for Continuing Indwelling Catheter: Accurate Measurement of Urinary Output in Critically Ill Patients Urinary Catheter Date of Insertion: 04/06/25 Urinary Catheter Time of Insertion: 01:18 Data 04/06/25 13:57 04/06/25 04:09 Micro: Microbiology 04/05/25 21:15 Blood Culture - Preliminary Blood SPECIMEN COLLECTED 04/05/25 21:10 Blood Culture - Preliminary Blood SPECIMEN COLLECTED A&P Assessment and plan 1. Acute on chronic HFrEF (heart failure with reduced ejection fraction): 2. Coronary artery disease: 3. Elevated troponin: 4. Atrial fibrillation: 5. History of deep vein thrombosis: 6. CKD (chronic kidney disease): 7. Iron deficiency anemia: 8. Anemia: 9. NSTEMI (non-ST elevated myocardial infarction): 10. Acute respiratory failure with hypoxia and hypercarbia: 11. Acute encephalopathy: Plan: Acute encephalopathy - Secondary to hypercarbia, hypoxia - Possible UTI? History of recurrent UTIs, chronic Robertson catheter - Possible sepsis? Has leukocytosis, awaiting lactic acid, UA, chest x-ray does show increased rales at lung bases possible atelectasis though other etiologies not excluded, CRP, Pro-Nathaniel, sputum culture, blood cultures ordered - Associated anemia - Neurochecks - NIH stroke scale - Monitor mentation Acute hypoxic hypercarbic respiratory failure - Multifactorial - Concerns for fluid overload, systolic CHF exacerbation - Patient is off Eliquis, history of DVT possible hypercoagulable event?, CT imaging of the chest ordered - Given patient's leukocytosis, encephalopathy, respiratory status, concern for sepsis possible pneumonia? Plan - CT angiogram of chest to evaluate for PE - For now I am going to order broad-spectrum antibiotic therapy vancomycin, Zosyn, until I can get some of the imaging and test results back -He will be receiving blood products, risk of further fluid overload - Bumex 1 mg IV push every 8 hours - Metolazone - DuoNeb, budesonide - Respiratory therapy - BiPAP therapy Sepsis? -History of chronic Robertson catheter, history of recurrent UTIs, multidrug- resistant - Will obtain a UA - Will obtain a CT angiogram of chest - Will obtain CRP, Pro-Nathaniel - Will obtain blood cultures - For now continue broad-spectrum antibiotic therapy vancomycin, Zosyn - Patient does not qualify for fluid therapy as he is receiving blood products for his acute anemia, and his BNP is over 4000 is in respiratory failure from systolic diastolic CHF, high risk of worsening respiratory failure NSTEMI - With recent history of PCI at [facility] - We will have to obtain the records - Is not on aspirin is only on Plavix - Had chest pain complaints - Serial EKGs, start troponins, telemetry monitoring -Type I versus type II NSTEMI - Cardiology consulted - Continue Plavix - Continue statin - Continue beta-vaishnavi - Cardiac echo - Will hold off on therapeutic anticoagulant therapy as there is concern for acute anemia Acute anemia - During last hospitalization Hemoccult stools were positive for blood, required 4 units of blood, Eliquis was stopped - Now on Plavix - History of PCI within the last few months Plan - Will receive 2 units PRBC - Protonix - Carafate - N.p.o. - Monitor hemoglobin - General Surgery consulted N.p.o. DNR/DNI Protonix April 06, 2025 Encephalopathy slowly improving. Patient is currently awake alert and oriented. Patient had stents placed at [facility] in January 2025 following which he was on aspirin Plavix and Eliquis. Eliquis has been discontinued and at some point patient reports aspirin was discontinued as well. He is currently on Plavix 75 mg p.o. daily. Hemoglobin today upon arrival was at 6.3. Similar episode 1 month ago when he presented here with a hemoglobin of 5 and received several units of blood transfusion. Given his recent stents, it would be important to maintain dual antiplatelet therapy with aspirin and Plavix. Will go ahead and resume aspirin in addition to Plavix as holding DAPT would come with high risk of stent thrombosis. 3 additional units of blood transfusion have been ordered. Cardiology service consulted. Patient reports he had extensive endoscopic evaluation at [facility] at the time of his cardiac cath. He had an endoscopy and colonoscopy and states that neither was able to determine a source of obvious bleeding. Results of this endoscopic evaluation have been requested from [facility] today. He is unwilling to undergo another colonoscopy but is agreeable to an upper GI endoscopy He is not having any obvious melena at this time. On his previous visit fecal occult blood testing was positive. He states he has never had capsule endoscopy before. It does not appear he has been evaluated by hematology in the past. Continue diuresis with Bumex 1 mg IV every 8 hours for acute on chronic systolic heart failure. Closely monitor kidney function and urine output. Continue IV antibiotics while undergoing infectious source evaluation. DVT prophylaxis: SCDs only. Anticoagulation contraindicated. PDMP PDMP Reviewed: Not Reviewed Attestations 2 Medical Necessity Statement*: Severe anemia, IV diuresis, possible endoscopic evaluation Coding Level of Care Code Acute Code for Chg Fwd High MDM includes number and complexity of problems actively addressed during encounter, amount and/or complexity of data reviewed/ordered and described risk of complication, morbidity or mortality of management as documented Diagnoses Acute on chronic HFrEF (heart failure with reduced ejection fraction) I50.23 Coronary artery disease I25.10 Elevated troponin R79.89 Atrial fibrillation I48.91 History of deep vein thrombosis Z86.718 CKD (chronic kidney disease) N18.9 Iron deficiency anemia D50.9 Anemia D64.9 NSTEMI (non-ST elevated myocardial infarction) I21.4 Acute respiratory failure with hypoxia and hypercarbia J96.01; J96.02 Acute encephalopathy G93.40
--- NOTE | 2025-04-06 17:15 | P.PN_ITS ---
Subjective 2 Subjective: No melena or hematochezia Vitals/I&O/Wt Last Vital Signs Temp 98.7 F 04/06/25 15:02 Pulse 80 04/06/25 15:15 Resp 18 04/06/25 15:15 BP 103/51 04/06/25 15:02 Pulse Ox 100 04/06/25 15:15 O2 Del Method Nasal Cannula 04/06/25 15:15 O2 Flow Rate 4 04/06/25 15:15 FiO2 30 04/06/25 04:30 04/06/25 04/06/25 04/06/25 06:59 14:59 22:59 Intake Total 990 / 990 300 / 300 Output Total 2300 / 2300 1950 / 1950 Balance -1310 / -1310 -1650 / -1650 Weight last 48 hrs Weight 300 lb 14.896 oz Weight 300 lb 14.896 oz Weight 290 lb Physical Exam 2 Narrative: Chest: Tachypneic on nasal cannula Heart: Regular rate and rhythm. Abdomen: Soft, nontender, nondistended. No masses or lymphadenopathy. Urinary Catheter Management: Robertson: Cath Placed During This Visit: yes Reason for Continuing Indwelling Catheter: Accurate Measurement of Urinary Output in Critically Ill Patients Urinary Catheter Date of Insertion: 04/06/25 Urinary Catheter Time of Insertion: 01:18 Data 04/06/25 13:57 04/06/25 04:09 Micro: Microbiology 04/05/25 21:15 Blood Culture - Preliminary Blood SPECIMEN COLLECTED 04/05/25 21:10 Blood Culture - Preliminary Blood SPECIMEN COLLECTED A&P Assessment and plan 1. Blood in stool: Plan: 74-year-old male whom surgery was consulted for acute anemia. No evidence of active GI bleed. Medical optimization prior to EGD and colonoscopy. PDMP PDMP Reviewed: Not Reviewed Attestations 2 Medical Necessity Statement*: N/A Coding Level of Care Code 14694 Diagnoses Blood in stool K92.1
--- NOTE | 2025-04-06 18:35 | PC.NURSE ---
SHift SUmmary: Uneventful shift. rested in bed throughout the day. No evidence of bleeding. Has received a total of 3 units of blood today (1 finished as shift started, plus 2 during the day). Hand H q4 hours. 2 additional units ready at blood bank, transfuse if HGB drops below 8.
[2025-04-06 19:11] LABS: Hematocrit 27.7 % (37-53); Hemoglobin 8.00 g/dL (11.27-16.99)
--- NOTE | 2025-04-06 19:15 | PM.CONSULT ---
Providers/Reason For Consult Consulting Physician/Specialty*: Tequila Jacobs MD/cardiac Reason for Consult*: Severe anemia of unknown etiology questionable GI bleed Ischemic heart disease with moderate to severely depressed ejection fraction 35 to 40% Acute decompensated on chronic systolic heart failure Requesting Physician: Dr. Carranza Attending Physician: Pavithra Carranza MD Primary Care Provider: Otilio Huang History of Present Illness History of Present Illness Edson Jaffe is a 74 year old male past medical history significant for history of recurrent severe anemia requiring transfusion with unknown etiology endoscopic colonoscopy did not reveal a source, capsule endoscopy was suggested, history of recent PCI to unknown artery at [facility] 2 months ago was on DAPT, history of atrial fibrillation was on Eliquis, history of congestive heart failure systolic type with moderate to severely depressed ejection fraction 35 to 40%, patient presented with worsening of shortness of breath PND orthopnea lower extremity edema noted to have hemoglobin less than 6.0 and appeared to be in decompensated systolic heart failure. Patient was diuresed with IV Bumex every 8 hour along with 2 transfusion after which hemoglobin came back more than 7.0. Currently denies any chest pain but appeared to be little short of breath. Repeat echocardiogram showed ejection patient remained stable at 35 to 40%. He has moderate aortic valve stenosis. Medications/Allergies Home Medications ?Medication ?Instructions ?Recorded ?Confirmed ?Last Taken ?Type albuterol sulfate 90 mcg/actuation 2 puff inhalation Q4H PRN 11/02/24 04/06/25 12/05/24 History aerosol inhaler Shortness Of Breath Or Wheezing aluminum-mag hydroxide-simethicone 30 ml PO Q2H PRN 11/02/24 04/06/25 04/05/25 History 400 mg-400 mg-40 mg/5 mL oral susp indigeston/heartburn/gas (Mylanta Maximum Strength) bisacodyl 10 mg rectal suppository 10 mg AL .Q72H PRN Constipation 11/02/24 04/06/25 Unknown History docusate sodium 100 mg capsule 100 mg PO BID 11/02/24 04/06/25 04/05/25 History (Colace) ergocalciferol (vitamin D2) 1,250 50,000 mcg PO Q30D 11/02/24 04/06/25 03/28/25 History mcg (50,000 unit) capsule fluticasone fur. 200 mcg-umeclid 1 inh inhalation DAILY 11/02/24 04/06/25 04/05/25 History 62.5 mcg-vilant 25 mcg inhalat.powder (Trelegy Ellipta) magnesium hydroxide 400 mg/5 mL 30 ml PO DAILY PRN Constipation 11/02/24 04/06/25 02/25/25 08:30 History oral suspension (Milk of Magnesia) multivitamin 1 tab PO QAM 11/02/24 04/06/25 04/05/25 History polyethylene glycol 3350 17 17 g PO DAILY PRN bowel management 11/02/24 04/06/25 11/20/24 History gram/dose oral powder (Miralax) sennosides 8.6 mg tablet (senna) 8.6 mg PO DAILY PRN Constipation 11/02/24 04/06/25 02/09/25 History spironolactone 50 mg tablet 50 mg PO DAILY 11/02/24 04/06/25 04/05/25 History Right cockup splint #1 ea 11/28/24 04/06/25 Unknown Rx acetaminophen 325 mg tablet 650 mg PO Q4H PRN elevated 12/06/24 04/06/25 01/30/25 History (Tylenol) temp/pain loperamide 2 mg tablet (Imodium 2 mg PO Q6H PRN Diarrhea 01/28/25 04/06/25 02/01/25 History A-D) oxycodone-acetaminophen 10 mg-325 1 tab PO Q6H PRN Pain 01/28/25 04/06/25 03/04/25 16:30 History mg tablet albuterol sulfate 2.5 mg/3 mL 2.5 mg continuous nebulization 03/05/25 04/06/25 03/04/25 11:40 History (0.083 %) solution for nebulization .TID PRN respitory failure atorvastatin 40 mg tablet 40 mg PO QAM 03/05/25 04/06/25 04/05/25 History clopidogrel 75 mg tablet 75 mg PO DAILY 03/05/25 04/06/25 04/05/25 History melatonin 3 mg tablet 6 mg PO BEDTIME PRN Insomnia 03/05/25 04/06/25 Unknown History metoprolol succinate 25 mg 25 mg PO DAILY 03/05/25 04/06/25 04/05/25 History tablet,extended release 24 hr nitroglycerin 0.4 mg sublingual See Rx Instructions .Route .COMPLEX 03/05/25 04/06/25 Unknown History tablet triamcinolone acetonide 0.5 % See Rx Instructions .Route .COMPLEX 03/05/25 04/06/25 04/04/25 History topical cream bisacodyl 5 mg tablet 5 mg PO DAILY PRN Constipation 04/06/25 04/06/25 Unknown History bumetanide 1 mg tablet 1 mg PO BEDTIME 04/06/25 04/06/25 04/04/25 History empagliflozin 10 mg tablet 10 mg PO DAILY 04/06/25 04/06/25 04/05/25 History (Jardiance) fluoxetine 10 mg capsule 10 mg PO DAILY 04/06/25 04/06/25 04/05/25 History fluoxetine 20 mg capsule 20 mg PO DAILY 04/06/25 04/06/25 04/05/25 History gabapentin 300 mg capsule 300 mg PO BID 04/06/25 04/06/25 04/05/25 History levothyroxine 50 mcg tablet 50 mcg PO DAILY 04/06/25 04/06/25 04/05/25 History pantoprazole 40 mg tablet,delayed 40 mg PO DAILY 04/06/25 04/06/25 04/05/25 History release potassium chloride 10 mEq 10 meq PO BID 04/06/25 04/06/25 04/05/25 History tablet,extended release(part/cryst) Allergies Allergy/AdvReac Type Severity Reaction Status Date / Time broccoli Allergy ADR-Vomitin Verified 03/18/25 09:12 g Current Medications Generic Name Dose Route Start Last Admin Trade Name Freq PRN Reason Stop Dose Admin Albuterol/Ipratropium 3 ml 04/06/25 00:00 04/06/25 15:14 Ipratropium-Albuterol 3 Ml Neb INHALATION 3 ml Q4H.RESPIRATORY HARJINDER Administration Atorvastatin Calcium 40 mg 04/06/25 18:00 04/06/25 18:05 Atorvastatin 40 Mg Tablet PO 40 mg QPM HARJINDER Administration Budesonide 0.5 mg 04/06/25 08:00 04/06/25 08:05 Budesonide 0.5 Mg/2 Ml Neb INHALATION 0.5 mg BID.RESPIRATORY HARJINDER Administration Bumetanide 1 mg 04/05/25 22:39 04/06/25 14:58 Bumetanide 0.25 Mg/Ml Sdv 4 Ml IVP 1 mg Q8H HARJINDER Administration Clopidogrel Bisulfate 75 mg 04/06/25 09:00 04/06/25 13:18 Clopidogrel 75 Mg Tablet PO 75 mg DAILY HARJINDER Administration Fluoxetine HCl 40 mg 04/06/25 09:00 04/06/25 09:03 Fluoxetine 20 Mg Capsule PO 40 mg DAILY HARJINDER Administration Gabapentin 400 mg 04/06/25 09:00 04/06/25 18:05 Gabapentin 400 Mg Capsule PO 400 mg BID HARJINDER Administration Piperacillin Sod/Tazobactam 50 mls @ 12.5 mls/hr 04/06/25 08:00 04/06/25 16:44 Sod 3.375 gm/ Sodium Chloride IV 12.5 mls/hr Q8H HARJINDER Administration Vancomycin HCl 2,000 mg in 400 mls @ 200 mls/hr 04/06/25 00:00 04/06/25 02:05 Vancocin IV Infused Q24H HARJINDER Infusion Levothyroxine Sodium 25 mcg 04/06/25 06:00 04/06/25 06:09 Levothyroxine 25 Mcg Tablet PO 25 mcg 0600 HARJINDER Administration Metoprolol Succinate 25 mg 04/06/25 09:00 04/06/25 11:38 Metoprolol Succinate Er (24 Hr) 25 Mg Tablet PO Not Given DAILY HARJINDER Pantoprazole Sodium 40 mg 04/05/25 22:39 04/06/25 10:45 Pantoprazole 40 Mg Sdv IVP 40 mg Q12H HARJINDER Administration Potassium Chloride 20 meq 04/05/25 22:39 04/06/25 14:58 Potassium Chloride Er 20 Meq Tablet PO 20 meq Q8H HARJINDER Administration Sodium Chloride 50 ml 04/05/25 19:37 04/06/25 10:44 Sodium Chloride 0.9% 100 Ml Bag IV 04/06/25 19:37 50 ml PRN PRN Administration Blood transfusion prime and flush Sucralfate 1 gm 04/05/25 22:39 04/06/25 16:44 Sucralfate 1 Gm/10 Ml Oral Liq Udc PO 1 gm Q6H HARJINDER Administration PFSH Acute PFSH: Medical History (Updated 04/05/25 @ 20:52 by Vijay Duncan MD) Congestive heart failure Atrial fibrillation CKD (chronic kidney disease) History of deep vein thrombosis DNR (do not resuscitate) assisted resident Morbid obesity with BMI of 40.0-44.9, adult COPD with acute exacerbation Open wound of right lower leg Open wound of left lower leg Pressure ulcer of right buttock, stage 3 Social History Smoking and tobacco/nicotine status: never used tobacco/nicotine Vitals/I&O/Wt Last Vital Signs Temp 99.6 F 04/06/25 18:00 Pulse 79 04/06/25 18:00 Resp 18 04/06/25 15:15 BP 106/64 04/06/25 18:00 Pulse Ox 95 04/06/25 18:00 O2 Del Method Nasal Cannula 04/06/25 18:00 O2 Flow Rate 4 04/06/25 18:00 FiO2 30 04/06/25 04:30 04/06/25 04/06/25 04/06/25 06:59 14:59 22:59 Intake Total 990 / 990 300 / 300 1450 / 1750 Output Total 2300 / 2300 1950 / 1950 1100 / 3050 Balance -1310 / -1310 -1650 / -1650 350 / -1300 Weight last 48 hrs Weight 300 lb 14.896 oz Weight 300 lb 14.896 oz Weight 290 lb Physical Exam Const: OTHER: GENERAL: Patient fatigued but, awake and oriented x3. He appeared to be slightly short of breath HEART: Regular S1 and S2. 2 x 6 systolic murmur, rub or gallop. LUNGS: Inspiratory crackles more on the right than the left bilaterally. CENTRAL NERVOUS SYSTEM: Grossly nonfocal. Urinary Catheter Management: Robertson: Cath Placed During This Visit: yes Reason for Continuing Indwelling Catheter: Accurate Measurement of Urinary Output in Critically Ill Patients Urinary Catheter Date of Insertion: 04/06/25 Urinary Catheter Time of Insertion: 01:18 Data 04/06/25 19:07 04/06/25 04:09 Micro: Microbiology 04/05/25 21:15 Blood Culture - Preliminary Blood SPECIMEN COLLECTED 04/05/25 21:10 Blood Culture - Preliminary Blood SPECIMEN COLLECTED A&P Assessment and plan 1. Anemia: 2. Chronic hypoxemic respiratory failure: 3. Acute respiratory failure with hypoxia and hypercarbia: 4. Atrial fibrillation: 5. Acute on chronic HFrEF (heart failure with reduced ejection fraction): Plan: This is a complicated patient with recent PCI less than 2 months at [facility] in unknown coronary artery. He has a history of atrial fibrillation was on Eliquis which was stopped because of recent severe anemia despite of that patient came back with recurrent anemia of hemoglobin less than 5.0. He was also noted to be in decompensated systolic heart failure. Cardiac markers are elevated. Patient currently denies any chest pain. Cardiac markers most likely demand ischemia Continue dual antiplatelet therapy since patient has recent stent placement if drops hemoglobin we can stop aspirin. Continue IV Bumex 1 mg every 8 hours Eliquis was already discontinued. PPI as per medicine This is a complex and critical patient with guarded prognosis PDMP PDMP Reviewed: Not Reviewed Consult Attestations Medical Necessity Statement: Patient require continuation hospitalization for above defined care. Coding Level of Care Code Acute Code for Chg Fwd Diagnoses Anemia D64.9 Chronic hypoxemic respiratory failure J96.11 Acute respiratory failure with hypoxia and hypercarbia J96.01; J96.02 Atrial fibrillation I48.91 Acute on chronic HFrEF (heart failure with reduced ejection fraction) I50.23
--- NOTE | 2025-04-06 22:39 | USCV_ITS ---
Edson Jaffe Age: 74 Gender: M : 1950 Exam Date: 04/06/2025 08:30 Ordering Phys: Vijay Duncan MD Technologist: Best Bird Exam Location: [facility] [place] Indication: resp failure, nstemi BP: 159 / 81 HR: 77 Rhythm: Sinus Technical Quality: Adequate MEASUREMENTS (Male / Female) Normal Values 2D ECHO LV Diastolic Diameter PLAX 7.9 cm 4.2 - 5.9 / 3.9 - 5.3 cm IVS Diastolic Thickness 1.3 cm 0.6 - 1.0 / 0.6 - 0.9 cm IVS Systolic Thickness 1.4 cm LVPW Diastolic Thickness 0.9 cm 0.6 - 1.0 / 0.6 - 0.9 cm LVPW Systolic Thickness 1.4 cm LVOT Diameter 2.1 cm LV Ejection Fraction 2D Teich 37.2 % LV Ejection Fraction MOD 4C 37.7 % LV Ejection Fraction MOD 2C 31.3 % LV Ejection Fraction 2C AL 31.0 % LA Diameter 4.4 cm RA Systolic Volume 4C AL 58.0 ml RA Systolic Volume 4C MOD 56.9 ml LA Sys Volume AL 101.1 cm cubed LA Sys Volume Index AL 37.6 cm cubed/m squared Aorta at Sinotubular Diameter 2.4 cm IVC Diameter 1.6 cm M-MODE LA Ao Ratio MM 1.3 AV Cusp Separation MM 1.2 cm DOPPLER AV Peak Velocity 248.3 cm/s LVOT Peak Velocity 92.0 cm/s AV Area Cont Eq vti 1.2 cm squared AV Area Cont Eq pk 1.3 cm squared MV Peak Velocity 137.0 cm/s MV Area PHT 3.8 cm squared Mitral E to A Ratio 0.8 TV Peak Velocity 159.0 cm/s TR Peak Velocity 183.0 cm/s TR Peak Gradient 13.4 mmHg TR Mean Velocity 145.0 cm/s TR Mean Gradient 9.1 mmHg TR Velocity Time Integral 50.7 cm PV Peak Velocity 142.0 cm/s RV Ejection Time 0.2 s FINDINGS Left Ventricle Moderately increased left ventricular cavity size. Moderate to Severely decreased left ventricular systolic function. Left ventricular ejection fraction is estimated at 35-40 %. Global left ventricular hypokinesis. Grade I/IV diastolic dysfunction (abnormal relaxation filling pattern), normal to mildly elevated filling pressures. Right Ventricle The right ventricle is normal in size and function. Right Atrium The right atrium is normal in size. Left Atrium The left atrium is normal in size. Mitral Valve Mildly thickened mitral valve. No mitral valve stenosis. Trace mitral valve regurgitation. Aortic Valve Moderate aortic valve calcification. Moderate aortic valve stenosis, mean gradient 14.2 mmHg, ANUEL 1.2 cm squared. Trace aortic valve regurgitation. Tricuspid Valve Trace tricuspid valve regurgitation. Pulmonic Valve Structurally normal pulmonic valve without significant stenosis. There is no pulmonic regurgitation. Pericardium Normal pericardium without effusion. Aorta Normal ascending aorta dimension. IVC The inferior vena cava appears normal. CONCLUSIONS Moderately increased left ventricular cavity size. Moderate to Severely decreased left ventricular systolic function. Left ventricular ejection fraction is estimated at 35-40 %. Global left ventricular hypokinesis. Grade I/IV diastolic dysfunction (abnormal relaxation filling pattern), normal to mildly elevated filling pressures. Moderate aortic valve calcification. Moderate aortic valve stenosis, mean gradient 14.2 mmHg, ANUEL 1.2 cm squared. Trace aortic valve regurgitation. There is no pericardial effusion. Right atrial pressure is around 5 mm of mercury. Tequila Jacobs MD (Electronically Signed) Final Date: 06 April 2025 17:12 S
[2025-04-07] VITALS (57 sets, daily range): BP systolic 93–125; BP diastolic 38–71; PULSE 64–89; RESP 15–28; TEMP 36.6–37.2; O2SAT 90–100
[2025-04-07 00:29] LABS: Hematocrit 29.2 % (37-53); Hemoglobin 8.70 g/dL (11.27-16.99)
[2025-04-07] MEDS: sucralfate 1 gm/10 mL Oral Liq UDC PO ×4 (04:30→23:41)
[2025-04-07 05:35] LABS: Hematocrit 30.2 % (37-53); Hemoglobin 8.90 g/dL (11.27-16.99); Mean Corpuscular HGB Conc 29.5 g/dL (30-55); Mean Corpuscular Hemoglobin 24.4 pg (27-33); Mean Corpuscular Volume 82.7 fl (82-101); Nucleated Red Blood Cells % 0.6 %; Platelet Count 422 10^3/cmm (157-399); Red Blood Count 3.65 10^6/uL (3.85-5.65); White Blood Count 11.25 10^3/uL (3.29-11.43)
[2025-04-07] MEDS: bumetanide 0.25 mg/mL SDV 4 mL 1 MG IVP ×2 (05:59→23:41)
[2025-04-07 06:09] LABS: Alanine Aminotransferase 6 U/L (0-41); Albumin Level 2.7 g/dL (3.5-5.2); Alkaline Phosphatase 117 U/L (40-130); Anion Gap 12.6 (5-19); Aspartate Amino Transferase 9 U/L (0-40); Blood Urea Nitrogen 16 mg/dL (8-23); Calcium 8.0 mg/dL (8.5-10.5); Carbon Dioxide 37 mmol/L (22-29); Chloride 92 mmol/L (98-107); Creatinine Clr Calc Pharmacy 78.8296; Globulin 5.3 g/dL (1.3-4.6); Glucose 87 mg/dL (65-115); Osmolality Calculated 285 mOsm/kg (285-295); Potassium 4.6 mmol/L (3.5-5.1); Sodium 137 mmol/L (136-145); Total Protein 8.0 g/dL (6.6-8.7)
--- NOTE | 2025-04-07 07:13 | PHA.VACGOAL ---
Vancomycin Goal - Goal Vancomycin Goal:: 15-20 mg/L Vancomycin Indication:: Other - Therapy Current therapy:: Pip/Tazo Day of therpy:: Day []of [] . Actual body weight (kg): 295 lb 6.711 oz - Data Labs: WBC 11.25 10^3/uL (3.29-11.43) 04/07/25 04:23 RBC 3.65 10^6/uL (3.85-5.65) L 04/07/25 04:23 Hgb 8.90 g/dL (11.27-16.99) L 04/07/25 04:23 Hct 30.2 % (37-53) L 04/07/25 04:23 MCV 82.7 fl (82-101) 04/07/25 04:23 MCH 24.4 pg (27-33) L 04/07/25 04:23 MCHC 29.5 g/dL (30-55) L D 04/07/25 04:23 RDW 19.2 % (12.1-15.1) H 04/07/25 04:23 Sodium 137 mmol/L (136-145) 04/07/25 04:23 Potassium 4.6 mmol/L (3.5-5.1) 04/07/25 04:23 Chloride 92 mmol/L (98-107) L 04/07/25 04:23 Carbon Dioxide 37 mmol/L (22-29) H 04/07/25 04:23 Anion Gap 12.6 (5-19) 04/07/25 04:23 BUN 16 mg/dL (8-23) 04/07/25 04:23 Creatinine 1.2 mg/dL (0.7-1.2) 04/07/25 04:23 GFR Calculation Not Reportable 04/07/25 04:23 Last dialysis session:: N/A Treatment plan:: new consult Regimen:: INITIALLY STARTED ON MAINTENANCE DOSE OF 2000 MG Q24H PER TELEPHARMACY Follow up:: WILL CONTINUE TO MONITOR AND FOLLOW UP DAILY. TROUGH PRIOR TO 4TH MAINTENANCE DOSE.
[2025-04-07 08:33] LABS: Hematocrit 31.6 % (37-53); Hemoglobin 9.40 g/dL (11.27-16.99)
[2025-04-07] MEDS: piperacillin-tazobactam 3.375 GM in sodium chloride 0.9% (plus) 50 ML IV ×3 (08:45→23:42)
[2025-04-07] MEDS: metoprolol succinate ER (24 HR) 25 mg Tablet 12.5 MG PO (08:47)
--- NOTE | 2025-04-07 11:27 | P.PN_ITS ---
<Statement entered by Tequila Jacobs MD - 04/07/25 19:49> Patient was evaluated and cared for in conjunction with an advanced practice practitioner. I personally examined the patient and reviewed the chart and all pertinent data including imaging, telemetry, and laboratory results. I discussed the patient in detail with the advanced practice practitioner. Please see their note for complete H&P testing result and agreed upon plan of care for the patient. Subjective 2 Subjective: He has done well overnight, he is sleepy having a hard time sleeping in the ICU. He had blood transfusion overnight, hemoglobin 9.4 this morning. Will stop aspirin. Vitals/I&O/Wt Last Vital Signs Temp 99 F 04/07/25 08:30 Pulse 79 04/07/25 10:30 Resp 26 H 04/07/25 10:30 BP 107/52 04/07/25 10:30 Pulse Ox 100 04/07/25 10:30 O2 Del Method Nasal Cannula 04/07/25 08:50 O2 Flow Rate 3 04/07/25 08:50 FiO2 30 04/06/25 04:30 04/06/25 04/07/25 04/07/25 22:59 06:59 14:59 Intake Total 1740 / 3370 1330 / 3370 300 / 300 Output Total 1100 / 5050 2000 / 5050 1400 / 1400 Balance 640 / -1680 -670 / -1680 -1100 / -1100 Weight last 48 hrs Weight 295 lb 6.711 oz Weight 300 lb 14.896 oz Weight 300 lb 14.896 oz Weight 290 lb Physical Exam 2 Const: COMMON NORMALS: no acute distress and patient oriented x3 GENERAL APPEARANCE: cooperative and comfortable ORIENTATION/CONSCIOUSNESS: Yes awake, Yes oriented to person, Yes oriented to place and Yes oriented to time Chest: COMMONS NORMALS: normal inspection of the chest and normal palpation of entire chest wall CHEST: Yes Symmetrical chest wall rise Resp: COMMON NORMALS: normal respiratory effort, No retractions and No use of accessory muscles EFFORT & INSPECTION: Yes symmetric chest movement A USCULTATION: crackles Laterality: bilateral and posterior Cardio: COMMON NORMALS: regular rate, regular rhythm, S1 normal heart sound present, S2 normal heart sound present, No gallops present (Cardio), No clicks present (Cardio), No murmurs present (Cardio) and No rub (Cardio) RATE: r egular rate RHYTHM: regular rhythm HEART SOUNDS: S1 normal heart sound present and S2 normal heart sound present PERIPHERAL PULSES: radial pulses present Extremity: COMMON NORMALS: no pedal edema Neuro: COMMON NORMALS: patient oriented x3 and moves all extremities S ENSORIUM/ORIENTATION: Yes oriented to person, Yes oriented to place and Yes oriented to time Urinary Catheter Management: Robertson: Cath Placed During This Visit: yes Reason for Continuing Indwelling Catheter: Accurate Measurement of Urinary Output in Critically Ill Patients Urinary Catheter Date of Insertion: 04/06/25 Urinary Catheter Time of Insertion: 01:18 Data 04/07/25 08:05 04/07/25 04:23 Micro: Microbiology 04/06/25 01:00 Urine Culture - Preliminary Urine,Clean Catch 04/05/25 21:15 Blood Culture - Preliminary Blood NEGATIVE TO DATE 04/05/25 21:10 Blood Culture - Preliminary Blood NEGATIVE TO DATE A&P Assessment and plan 1. Anemia: 2. Chronic hypoxemic respiratory failure: 3. Acute respiratory failure with hypoxia and hypercarbia: 4. Atrial fibrillation: 5. Acute on chronic HFrEF (heart failure with reduced ejection fraction): Plan: Due to anemia and requiring multiple units of blood transfused, will continue with monotherapy with Plavix. Ideally monotherapy would be with Brilinta however it would cause worsening GI bleeding. Will stop aspirin. Continue metoprolol succinate, reducing to 12.5 mg daily due to periodic hypotension. Continue Bumex 1 mg 3 times daily, potassium 20 mEq 3 times daily. PDMP PDMP Reviewed: Not Reviewed Attestations 2 Medical Necessity Statement*: Severe anemia, demand ischemia Coding Level of Care Code Acute Code for [facility] Diagnoses Anemia D64.9 Chronic hypoxemic respiratory failure J96.11 Acute respiratory failure with hypoxia and hypercarbia J96.01; J96.02 Atrial fibrillation I48.91 Acute on chronic HFrEF (heart failure with reduced ejection fraction) I50.23
[2025-04-07] MEDS: pantoprazole 40 mg SDV IVP ×2 (11:52→23:41)
[2025-04-07 11:57] LABS: Hematocrit 30.8 % (37-53); Hemoglobin 9.00 g/dL (11.27-16.99)
--- NOTE | 2025-04-07 13:55 | P.PN_ITS ---
Subjective 2 Subjective: No melena or hematochezia Vitals/I&O/Wt Last Vital Signs Temp 99 F 04/07/25 08:30 Pulse 85 04/07/25 12:10 Resp 20 H 04/07/25 12:00 BP 107/52 04/07/25 10:30 Pulse Ox 92 04/07/25 12:00 O2 Del Method Nasal Cannula 04/07/25 12:00 O2 Flow Rate 3 04/07/25 12:00 FiO2 30 04/06/25 04:30 04/06/25 04/07/25 04/07/25 22:59 06:59 14:59 Intake Total 1740 / 2040 1330 / 3370 300 / 300 Output Total 1100 / 3050 2000 / 5050 1400 / 1400 Balance 640 / -1010 -670 / -1680 -1100 / -1100 Weight last 48 hrs Weight 295 lb 6.711 oz Weight 300 lb 14.896 oz Weight 300 lb 14.896 oz Weight 290 lb Physical Exam 2 Narrative: Chest: Tachypneic on nasal cannula Heart: Regular rate and rhythm. Abdomen: Soft, nontender, nondistended. No masses or lymphadenopathy. Urinary Catheter Management: Robertson: Cath Placed During This Visit: yes Reason for Continuing Indwelling Catheter: Accurate Measurement of Urinary Output in Critically Ill Patients Urinary Catheter Date of Insertion: 04/06/25 Urinary Catheter Time of Insertion: 01:18 Data 04/07/25 11:49 04/07/25 04:23 Micro: Microbiology 04/06/25 01:00 Urine Culture - Preliminary Urine,Clean Catch 04/05/25 21:15 Blood Culture - Preliminary Blood NEGATIVE TO DATE 04/05/25 21:10 Blood Culture - Preliminary Blood NEGATIVE TO DATE A&P Assessment and plan 1. Anemia: Plan: 74-year-old male consulted for GI bleed. No clinical evidence of active GI bleed. Holding off on scopes until medically optimized. Could pursue as outpatient. PDMP PDMP Reviewed: Not Reviewed Attestations 2 Medical Necessity Statement*: NA Coding Level of Care Code 77625 Diagnoses Anemia D64.9
--- NOTE | 2025-04-07 15:54 | PC.SOCIAL ---
IMM Update Updated pt on IMM. No questions voiced. Provided pt a copy. Initialed, dated, & timed a copy & placed in chart.
[2025-04-07 15:58] LABS: Hematocrit 31.0 % (37-53); Hemoglobin 9.10 g/dL (11.27-16.99)
--- NOTE | 2025-04-07 16:20 | P.PN_ITS ---
Subjective 2 Subjective: Hb improving, no further bleeding noted. Vitals/I&O/Wt Last Vital Signs Temp 97.8 F 04/07/25 12:30 Pulse 68 04/07/25 15:30 Resp 18 04/07/25 15:15 BP 118/49 04/07/25 15:30 Pulse Ox 98 04/07/25 15:30 O2 Del Method Nasal Cannula 04/07/25 15:15 O2 Flow Rate 3 04/07/25 15:15 FiO2 30 04/06/25 04:30 04/07/25 04/07/25 04/07/25 06:59 14:59 22:59 Intake Total 1330 / 3370 700 / 700 50 / 750 Output Total 2000 / 5050 1400 / 1400 Balance -670 / -1680 -700 / -700 50 / -650 Weight last 48 hrs Weight 134 kg Weight 136.5 kg Weight 136.5 kg Weight 131.542 kg Physical Exam 2 Const: COMMON NORMALS: no acute distress, average body habitus, patient oriented x3 and healthy appearing HENMT: COMMON NORMALS: normocephalic and atraumatic HEAD & SCALP: n ormocephalic and atraumatic Eye: COMMON NORMALS: Equal, round and reactive pupils present and EOMs intact bilaterally PUPIL: Yes Equal, round and reactive pupils present Neck/C-Spine: COMMON NORMALS: full ROM and no lymphadenopathy Lymph: LYMPHATIC: no lymphadenopathy noted Resp: COMMON NORMALS: No retractions, No use of accessory muscles and clear to auscultation bilaterally AUSCULTATION: clear to auscultation bilaterally O THER: diminished breath sounds in bases Cardio: COMMON NORMALS: regular rate and regular rhythm RATE: regular rate RHYTHM: regular rhythm GI: COMMON NORMALS: Soft to palpation, non-tender and no masses PALPATION: Yes Soft to palpation Neuro: COMMON NORMALS: patient oriented x3 and CN's II-XII intact bilaterally Urinary Catheter Management: Robertson: Cath Placed During This Visit: yes Reason for Continuing Indwelling Catheter: Accurate Measurement of Urinary Output in Critically Ill Patients Urinary Catheter Date of Insertion: 04/06/25 Urinary Catheter Time of Insertion: 01:18 Data 04/07/25 15:33 04/07/25 04:23 Micro: Microbiology 04/06/25 01:00 Urine Culture - Preliminary Urine,Clean Catch 04/05/25 21:15 Blood Culture - Preliminary Blood NEGATIVE TO DATE 04/05/25 21:10 Blood Culture - Preliminary Blood NEGATIVE TO DATE A&P Assessment and plan 1. Acute respiratory failure with hypoxia and hypercarbia: 2. NSTEMI (non-ST elevated myocardial infarction): 3. Chronic hypoxemic respiratory failure: 4. Positive occult stool blood test: 5. Anemia: Plan: Acute combined respiratory and metabolic encephalopathy - Secondary to hypercarbia, hypoxia - Possible UTI equivical History of recurrent UTIs, chronic Robertson catheter - Associated anemia - Neurochecks - NIH stroke scale - mentation improved - cont. abx Acute hypoxic hypercarbic respiratory failure - Multifactorial - Concerns for fluid overload, systolic CHF exacerbation - Patient is off Eliquis, history of DVT possible hypercoagulable event?, CT imaging of the chest ordered - Given patient's leukocytosis, encephalopathy, respiratory status, concern for sepsis possible pneumonia? - CT angiogram of chest negative for PE - receiving blood products, risk of further fluid overload - Bumex 1 mg IV push every 8 hours - Metolazone - DuoNeb, budesonide - Respiratory therapy - BiPAP therapy Sepsis, POA, no shock - Has leukocytosis, now resolved - lactic acid not elevated, UA negative, chest x-ray does show increased rales at lung bases possible atelectasis though other etiologies not excluded, CRP, Pro-Nathaniel, sputum culture - blood cultures NGTD -History of chronic Robertson catheter, history of recurrent UTIs, multidrug- resistant - For now continue broad-spectrum antibiotic therapy vancomycin, Zosyn - Patient does not qualify for fluid therapy as he is receiving blood products for his acute anemia, and his BNP is over 4000 is in respiratory failure from systolic diastolic CHF, high risk of worsening respiratory failure NSTEMI - With recent history of PCI at [facility] - We will have to obtain the records - Is not on aspirin is only on Plavix - Had chest pain complaints - Serial EKGs, start troponins, telemetry monitoring -Type I versus type II NSTEMI - Cardiology consulted - Continue Plavix - Continue statin - Continue beta-vaishnavi - Cardiac echo - Will hold off on therapeutic anticoagulant therapy as there is concern for acute anemia Acute anemia, severe - During last hospitalization Hemoccult stools were positive for blood, required 4 units of blood, Eliquis was stopped - Now on Plavix - History of PCI within the last few months - received multiple unites PRBC - Protonix - Carafate - Monitor hemoglobin - General Surgery consulted: unable to scope until medically optimized. DNR/DNI Protonix Disposition - monitor for 72 hours after large volume blood transfusion for severe anemia PDMP PDMP Reviewed: Not Reviewed Attestations 2 Medical Necessity Statement*: continue inpatient for severe anemia Time Spent in Patient Care: 16 - 35 minutes (>than 50% of time sp ent in counselling and/or direct pt care on unit) . Critical Care Time: The high probability of a clinically significant, sudden or life threatening deterioration of the patient's [] system(s) required my full and direct attention, intervention and personal management. The critical care time is as shown. This time is in addition to time spent performing any reported procedures but includes the following: [x] Data and vital sign review and interpretation [x] Patient assessment, examination and intervention [x] Documentation [x] Medication orders and management Critical Care Time (min): 30 Coding Level of Care Code Acute Code for [facility] Diagnoses Acute respiratory failure with hypoxia and hypercarbia J96.01; J96.02 NSTEMI (non-ST elevated myocardial infarction) I21.4 Chronic hypoxemic respiratory failure J96.11 Positive occult stool blood test R19.5 Anemia D64.9
--- NOTE | 2025-04-07 17:23 | PC.NURSE ---
Medication hold - Afternoon dose of bumex not administered. Patient's blood pressure is maintaining on the lower side, systolic usually in the 90's. Patient has already had 1800mL out today. No blood products administered. Oxygen requirements remain 4LNC which is his home baseline. Nurse alerted Dr bell to this. Ordered to non admin the dose of bumex
--- NOTE | 2025-04-07 18:29 | PC.NURSE ---
Shift summary: HGB remained stable around 9. No blood transfused. Bumex held for soft blood pressures. total urine output: 1800mL
[2025-04-07 19:51] LABS: Hematocrit 31.5 % (37-53); Hemoglobin 9.20 g/dL (11.27-16.99)
[2025-04-08] VITALS (26 sets, daily range): BP systolic 100–128; BP diastolic 58–71; PULSE 64–98; RESP 16–23; TEMP 36.4–36.8; O2SAT 92–98
--- NOTE | 2025-04-08 01:05 | PC.NURSE ---
Multiple pinpoint areas draining purulent/sangineous drainage from left distal buttock. Dr. Sheriff at bedside to assess.
[2025-04-08 02:40] LABS: Hematocrit 31.9 % (37-53); Hemoglobin 9.10 g/dL (11.27-16.99); Mean Corpuscular HGB Conc 28.5 g/dL (30-55); Mean Corpuscular Hemoglobin 23.9 pg (27-33); Mean Corpuscular Volume 83.7 fl (82-101); Nucleated Red Blood Cells % 0.5 %; Platelet Count 434 10^3/cmm (157-399); Red Blood Count 3.81 10^6/uL (3.85-5.65); White Blood Count 10.79 10^3/uL (3.29-11.43)
[2025-04-08 03:06] LABS: Anion Gap 13.2 (5-19); Blood Urea Nitrogen 18 mg/dL (8-23); Calcium 8.2 mg/dL (8.5-10.5); Carbon Dioxide 35 mmol/L (22-29); Chloride 90 mmol/L (98-107); Creatinine Clr Calc Pharmacy 94.5956; Glucose 112 mg/dL (65-115); Osmolality Calculated 281 mOsm/kg (285-295); Potassium 4.2 mmol/L (3.5-5.1); Sodium 134 mmol/L (136-145)
[2025-04-08] MEDS: bumetanide 0.25 mg/mL SDV 4 mL 1 MG IVP ×3 (05:47→23:14)
[2025-04-08] MEDS: sucralfate 1 gm/10 mL Oral Liq UDC PO ×4 (05:47→23:14)
[2025-04-08] MEDS: metoprolol succinate ER (24 HR) 25 mg Tablet 12.5 MG PO (08:05)
[2025-04-08] MEDS: piperacillin-tazobactam 3.375 GM in sodium chloride 0.9% (plus) 50 ML IV ×2 (08:06→16:58)
[2025-04-08] MEDS: pantoprazole 40 mg SDV IVP ×2 (09:55→23:14)
--- NOTE | 2025-04-08 10:24 | P.PN_ITS ---
<Statement entered by Tequila Jacobs MD - 04/08/25 18:38> Patient was evaluated and cared for in conjunction with an advanced practice practitioner. I personally examined the patient and reviewed the chart and all pertinent data including imaging, telemetry, and laboratory results. I discussed the patient in detail with the advanced practice practitioner. Please see their note for complete H&P testing result and agreed upon plan of care for the patient. Subjective 2 Subjective: He appears more alert this morning. Has not had any chest pain or shortness of breath. No lower extremity edema. Hemoglobin 9.1 today. Continue Plavix monotherapy. Vitals/I&O/Wt Last Vital Signs Temp 97.8 F 04/08/25 08:00 Pulse 76 04/08/25 08:01 Resp 20 H 04/08/25 08:00 BP 121/68 04/08/25 08:00 Pulse Ox 97 04/08/25 08:00 O2 Del Method Nasal Cannula 04/08/25 07:45 O2 Flow Rate 3 04/08/25 07:45 FiO2 30 04/06/25 04:30 04/07/25 04/08/25 04/08/25 22:59 06:59 14:59 Intake Total 340 / 1490 450 / 1490 300 / 300 Output Total 400 / 3380 1580 / 3380 500 / 500 Balance -60 / -1890 -1130 / -1890 -200 / -200 Weight last 48 hrs Weight 289 lb 14.526 oz Weight 295 lb 6.711 oz Physical Exam 2 Const: COMMON NORMALS: no acute distress and patient oriented x3 GENERAL APPEARANCE: cooperative and comfortable ORIENTATION/CONSCIOUSNESS: Yes awake, Yes oriented to person, Yes oriented to place and Yes oriented to time Chest: COMMONS NORMALS: normal inspection of the chest and normal palpation of entire chest wall CHEST: Yes Symmetrical chest wall rise Resp: COMMON NORMALS: normal respiratory effort, No retractions, No use of accessory muscles and clear to auscultation bilaterally EFFORT & INSPECTION: Yes symmetric chest movement AUSCULTATION: clear to auscultation bilaterally Cardio: COMMON NORMALS: regular rate, regular rhythm, S1 normal heart sound present, S2 normal heart sound present, No gallops present (Cardio), No clicks present (Cardio), No murmurs present (Cardio) and No rub (Cardio) RATE: r egular rate RHYTHM: regular rhythm HEART SOUNDS: S1 normal heart sound present and S2 normal heart sound present PERIPHERAL PULSES: radial pulses present Extremity: COMMON NORMALS: no pedal edema Neuro: COMMON NORMALS: patient oriented x3 and moves all extremities S ENSORIUM/ORIENTATION: Yes oriented to person, Yes oriented to place and Yes oriented to time Urinary Catheter Management: Robertson: Cath Placed During This Visit: yes Reason for Continuing Indwelling Catheter: Accurate Measurement of Urinary Output in Critically Ill Patients Urinary Catheter Date of Insertion: 04/06/25 Urinary Catheter Time of Insertion: 01:18 Data 04/08/25 02:23 04/08/25 02:23 Micro: Microbiology 04/06/25 01:00 Urine Culture - Preliminary Urine,Clean Catch A&P Assessment and plan 1. Anemia: 2. Acute respiratory failure with hypoxia and hypercarbia: 3. Atrial fibrillation: 4. Acute on chronic HFrEF (heart failure with reduced ejection fraction): Plan: Patient denies any bloody stools. Hemoglobin stable. He appears euvolemic, from tomorrow we will switch Bumex to 1 mg twice a day orally, for today continue Bumex 1 mg 3 times a day IV. PDMP PDMP Reviewed: Not Reviewed Attestations 2 Medical Necessity Statement*: Per hospitalist Coding Level [facility] Care [facility] Diagn[facility] Anemia D64.9 Acute respiratory failure with hypoxia and hypercarbia J96.01; J96.02 Atrial fibrillation I48.91 Acute on chronic HFrEF (heart failure with reduced ejection fraction) I50.23
--- NOTE | 2025-04-08 12:52 | P.PN_ITS ---
Subjective 2 Subjective: No acute events overnight Vitals/I&O/Wt Last Vital Signs Temp 97.7 F 04/08/25 11:42 Pulse 75 04/08/25 11:48 Resp 20 H 04/08/25 11:42 BP 100/58 04/08/25 11:42 Pulse Ox 95 04/08/25 11:42 O2 Del Method Nasal Cannula 04/08/25 11:42 O2 Flow Rate 3 04/08/25 11:40 FiO2 30 04/06/25 04:30 04/07/25 04/08/25 04/08/25 22:59 06:59 14:59 Intake Total 340 / 1040 450 / 1490 710 / 710 Output Total 400 / 1800 1580 / 3380 500 / 500 Balance -60 / -760 -1130 / -1890 210 / 210 Weight last 48 hrs Weight 289 lb 14.526 oz Weight 295 lb 6.711 oz Physical Exam 2 Narrative: Chest: Unlabored breathing room air. No lymphadenopathy. Heart: Regular rate and rhythm. Abdomen: Soft, nontender, nondistended. No masses or lymphadenopathy. Urinary Catheter Management: Robertson: Cath Placed During This Visit: yes Reason for Continuing Indwelling Catheter: Accurate Measurement of Urinary Output in Critically Ill Patients Urinary Catheter Date of Insertion: 04/06/25 Urinary Catheter Time of Insertion: 01:18 Data 04/09/25 04:36 04/09/25 04:36 Micro: Microbiology 04/06/25 01:00 Urine Culture - Final Urine,Clean Catch A&P Assessment and plan 1. Blood in stool: Plan: 74-year-old male surgery consulted for possible GI bleed. No evidence of GI bleed. Pursue scopes as outpatient. Rest of care per hospitalist. PDMP PDMP Reviewed: Not Reviewed Attestations 2 Medical Necessity Statement*: N/A Coding Level of Care Code 43210 Diagnoses Blood in stool K92.1
--- NOTE | 2025-04-08 14:20 | P.PN_ITS ---
Subjective 2 Subjective: Mentation improving Vitals/I&O/Wt Last Vital Signs Temp 97.7 F 04/08/25 11:42 Pulse 75 04/08/25 11:48 Resp 20 H 04/08/25 11:42 BP 100/58 04/08/25 11:42 Pulse Ox 95 04/08/25 11:42 O2 Del Method Nasal Cannula 04/08/25 11:42 O2 Flow Rate 3 04/08/25 11:40 FiO2 30 04/06/25 04:30 04/07/25 04/08/25 04/08/25 22:59 06:59 14:59 Intake Total 340 / 1040 450 / 1490 710 / 710 Output Total 400 / 1800 1580 / 3380 500 / 500 Balance -60 / -760 -1130 / -1890 210 / 210 Weight last 48 hrs Weight 131.5 kg Weight 134 kg Physical Exam 2 Const: COMMON NORMALS: no acute distress, patient oriented x3 and healthy appearing HENMT: COMMON NORMALS: normocephalic and atraumatic HEAD & SCALP: n ormocephalic and atraumatic Eye: COMMON NORMALS: Equal, round and reactive pupils present and EOMs intact bilaterally PUPIL: Yes Equal, round and reactive pupils present Neck/C-Spine: COMMON NORMALS: full ROM and no lymphadenopathy Lymph: LYMPHATIC: no lymphadenopathy noted Resp: COMMON NORMALS: No retractions, No use of accessory muscles and clear to auscultation bilaterally AUSCULTATION: clear to auscultation bilaterally O THER: diminished breath sounds in bases Cardio: COMMON NORMALS: regular rate and regular rhythm RATE: regular rate RHYTHM: regular rhythm GI: COMMON NORMALS: Soft to palpation, non-tender and no masses PALPATION: Yes Soft to palpation Neuro: COMMON NORMALS: patient oriented x3 and CN's II-XII intact bilaterally Skin: NARRATIVE SKIN EXAM: right buttock superficial abscess with drainage, POA. Urinary Catheter Management: Robertson: Cath Placed During This Visit: yes Reason for Continuing Indwelling Catheter: Accurate Measurement of Urinary Output in Critically Ill Patients Urinary Catheter Date of Insertion: 04/06/25 Urinary Catheter Time of Insertion: 01:18 Data 04/08/25 02:23 04/08/25 02:23 Micro: Microbiology 04/06/25 01:00 Urine Culture - Final Urine,Clean Catch A&P Assessment and plan 1. Acute respiratory failure with hypoxia and hypercarbia: 2. NSTEMI (non-ST elevated myocardial infarction): 3. Chronic hypoxemic respiratory failure: 4. Chest pain: 5. Anemia: 6. Elevated troponin: Plan: Acute combined respiratory and metabolic encephalopathy - Secondary to hypercarbia, hypoxia - Possible UTI equivical History of recurrent UTIs, chronic Robertson catheter - Associated anemia - Neurochecks - NIH stroke scale - mentation improved - cont. abx Acute hypoxic hypercarbic respiratory failure - Multifactorial - Concerns for fluid overload, systolic CHF exacerbation - Patient is off Eliquis, history of DVT possible hypercoagulable event?, CT imaging of the chest ordered - Given patient's leukocytosis, encephalopathy, respiratory status, concern for sepsis possible pneumonia? - CT angiogram of chest negative for PE - receiving blood products, risk of further fluid overload - Bumex 1 mg IV push every 8 hours, cardiology switching to oral in AM. - DuoNeb, budesonide - Respiratory therapy - BiPAP therapy Sepsis, POA, no shock - Has leukocytosis, now resolved - lactic acid not elevated, UA negative, chest x-ray does show increased rales at lung bases possible atelectasis though other etiologies not excluded, CRP, Pro-Nathaniel, sputum culture - blood cultures NGTD -History of chronic Robertson catheter, history of recurrent UTIs, multidrug- resistant - For now continue broad-spectrum antibiotic therapy vancomycin, Zosyn - Patient does not qualify for fluid therapy as he is receiving blood products for his acute anemia, and his BNP is over 4000 is in respiratory failure from systolic diastolic CHF, high risk of worsening respiratory failure - right buttock carbuncle, eval per surgery NSTEMI - With recent history of PCI at [facility] - We will have to obtain the records - Is not on aspirin is only on Plavix - Had chest pain complaints - telemetry monitoring -Type I versus type II NSTEMI - Cardiology consulted - Continue monotherapy for now with Plavix - Continue statin - Continue beta-vaishnavi - Cardiac echo - Will hold off on therapeutic anticoagulant therapy as there is concern for acute anemia Acute anemia, severe - During last hospitalization Hemoccult stools were positive for blood, required 4 units of blood, Eliquis was stopped - Now on Plavix - History of PCI within the last few months - received multiple unites PRBC - Protonix - Carafate - Monitor hemoglobin - General Surgery consulted: unable to scope until medically optimized. DNR/DNI Protonix Disposition - monitor for 72 hours after large volume blood transfusion for severe anemia PDMP PDMP Reviewed: Not Reviewed Attestations 2 Medical Necessity Statement*: ongoing inpatient for severe anemia, NSTEMI, AMS Time Spent in Patient Care: 16 - 35 minutes (>than 50% of time sp ent in counselling and/or direct pt care on unit) . Coding Level of Care Code Acute Code for [facility] Fwd Diagnoses Acute respiratory failure with hypoxia and hypercarbia J96.01; J96.02 NSTEMI (non-ST elevated myocardial infarction) I21.4 Chronic hypoxemic respiratory failure J96.11 Chest pain R07.9 Anemia D64.9 Elevated troponin R79.89
[2025-04-09] VITALS (15 sets, daily range): BP systolic 90–110; BP diastolic 57–68; PULSE 62–90; RESP 14–18; TEMP 36.4–37.2; O2SAT 93–98
[2025-04-09] MEDS: piperacillin-tazobactam 3.375 GM in sodium chloride 0.9% (plus) 50 ML IV ×4 (01:04→23:01)
[2025-04-09 04:52] LABS: Hematocrit 33.6 % (37-53); Hemoglobin 9.50 g/dL (11.27-16.99); Mean Corpuscular HGB Conc 28.3 g/dL (30-55); Mean Corpuscular Hemoglobin 24.2 pg (27-33); Mean Corpuscular Volume 85.5 fl (82-101); Nucleated Red Blood Cells % 0.3 %; Platelet Count 465 10^3/cmm (157-399); Red Blood Count 3.93 10^6/uL (3.85-5.65); White Blood Count 10.01 10^3/uL (3.29-11.43)
[2025-04-09 05:12] LABS: Anion Gap 11.2 (5-19); Blood Urea Nitrogen 19 mg/dL (8-23); Calcium 8.2 mg/dL (8.5-10.5); Carbon Dioxide 37 mmol/L (22-29); Chloride 93 mmol/L (98-107); Creatinine Clr Calc Pharmacy 93.6511; Glucose 99 mg/dL (65-115); Osmolality Calculated 286 mOsm/kg (285-295); Potassium 4.2 mmol/L (3.5-5.1); Sodium 137 mmol/L (136-145)
[2025-04-09] MEDS: sucralfate 1 gm/10 mL Oral Liq UDC PO ×4 (05:41→23:01)
[2025-04-09] MEDS: metoprolol succinate ER (24 HR) 25 mg Tablet 12.5 MG PO (07:59)
--- NOTE | 2025-04-09 09:36 | P.PN_ITS ---
Subjective 2 Subjective: continue diuresis Vitals/I&O/Wt Last Vital Signs Temp 98.0 F 04/09/25 07:42 Pulse 89 04/09/25 08:33 Resp 18 04/09/25 08:30 BP 90/57 04/09/25 07:42 Pulse Ox 96 04/09/25 08:30 O2 Del Method Nasal Cannula 04/09/25 08:30 O2 Flow Rate 3 04/09/25 04:00 FiO2 3 04/09/25 08:30 04/08/25 04/09/25 04/09/25 22:59 06:59 14:59 Intake Total 290 / 1000 450 / 1450 Output Total 1100 / 1600 600 / 2200 Balance -810 / -600 -150 / -750 Weight last 48 hrs Weight 131.088 kg Weight 131.5 kg Physical Exam 2 Const: COMMON NORMALS: no acute distress, patient oriented x3 and healthy appearing HENMT: COMMON NORMALS: normocephalic and atraumatic HEAD & SCALP: n ormocephalic and atraumatic Eye: COMMON NORMALS: Equal, round and reactive pupils present and EOMs intact bilaterally PUPIL: Yes Equal, round and reactive pupils present Neck/C-Spine: COMMON NORMALS: full ROM and no lymphadenopathy Lymph: LYMPHATIC: no lymphadenopathy noted Resp: COMMON NORMALS: No retractions, No use of accessory muscles and clear to auscultation bilaterally AUSCULTATION: clear to auscultation bilaterally O THER: diminished breath sounds in bases Cardio: COMMON NORMALS: regular rate and regular rhythm RATE: regular rate RHYTHM: regular rhythm GI: COMMON NORMALS: Soft to palpation, non-tender and no masses PALPATION: Yes Soft to palpation Neuro: COMMON NORMALS: patient oriented x3 and CN's II-XII intact bilaterally Skin: NARRATIVE SKIN EXAM: right buttock superficial abscess with drainage, POA. Urinary Catheter Management: Robertson: Cath Placed During This Visit: yes Reason for Continuing Indwelling Catheter: Accurate Measurement of Urinary Output in Critically Ill Patients Urinary Catheter Date of Insertion: 04/06/25 Urinary Catheter Time of Insertion: 01:18 Data 04/09/25 04:36 04/09/25 04:36 Micro: Microbiology 04/06/25 01:00 Urine Culture - Final Urine,Clean Catch A&P Assessment and plan 1. Acute respiratory failure with hypoxia and hypercarbia: 2. NSTEMI (non-ST elevated myocardial infarction): 3. Chronic hypoxemic respiratory failure: 4. Chest pain: 5. Elevated troponin: 6. Positive occult stool blood test: Plan: Acute combined respiratory and metabolic encephalopathy - Secondary to hypercarbia, hypoxia - Possible UTI, UA equivical. History of recurrent UTIs, chronic Robertson catheter, cont. Abx. - Associated anemia - mentation improved - cont. abx Acute hypoxic hypercarbic respiratory failure HFrEF of 35-40% with exacerbation PNA - Multifactorial - Given patient's leukocytosis, encephalopathy, respiratory status, concern for sepsis possible pneumonia - CT angiogram of chest negative for PE - receiving blood products, risk of further fluid overload - Bumex 1 mg IV push every 8 hours, cardiology switching to oral this AM. - DuoNeb, budesonide - Respiratory therapy - BiPAP therapy Sepsis, POA, no shock PNA - leukocytosis now resolved - lactic acid not elevated, UA negative, chest x-ray does show increased rales at lung bases possible atelectasis though other etiologies not excluded, CRP increased, Pro-Nathaniel not elevated, sputum culture not collected - blood cultures NGTD -History of chronic Robertson catheter, history of recurrent UTIs, multidrug- resistant - For now continue broad-spectrum antibiotic therapy vancomycin, Zosyn - Patient does not qualify for fluid therapy as he is receiving blood products for his acute anemia, and his BNP is over 4000 is in respiratory failure from systolic diastolic CHF, high risk of worsening respiratory failure - right buttock carbuncle, eval per surgery, wound care orders placed. NSTEMI - With recent history of PCI at [facility] - We will have to obtain the records - Had chest pain complaints - telemetry monitoring -Type I versus type II NSTEMI - Cardiology consulted - Continue monotherapy for now with Plavix - Continue statin - Continue beta-vaishnavi - Cardiac echo complete with EF or 35-40%, moderate , cont. to monitor OP. - Will hold off on therapeutic anticoagulant therapy as there is concern for acute anemia Acute on chronic anemia, severe GIB - During last hospitalization Hemoccult stools were positive for blood, required 4 units of blood, Eliquis was stopped - Now on Plavix - History of PCI within the last few months - received multiple unites PRBC - Protonix - Carafate - Monitor hemoglobin, slowly improving currently. - General Surgery consulted: unable to scope until medically optimized. H/O DVT - Patient is off Eliquis currently for severe anemia. DNR/DNI Protonix PPx: off AC currently for severe anemia with GIB - SCDs OK Diet: HH Disposition - monitor for 72 hours after large volume blood transfusion for severe anemia. - transition to oral diuresis today PDMP PDMP Reviewed: Not Reviewed Attestations 2 Medical Necessity Statement*: ongoing inpatient for HFrEF exacerbation, GIB, NSTEMI Time Spent in Patient Care: 16 - 35 minutes (>than 50% of time sp ent in counselling and/or direct pt care on unit) . Coding Level of Care Code Acute Code for g Fwd Diagnoses Acute respiratory failure with hypoxia and hypercarbia J96.01; J96.02 NSTEMI (non-ST elevated myocardial infarction) I21.4 Chronic hypoxemic respiratory failure J96.11 Chest pain R07.9 Elevated troponin R79.89 Positive occult stool blood test R19.5
--- NOTE | 2025-04-09 10:16 | P.PN_ITS ---
<Statement entered by Tequila Jacobs MD - 04/11/25 15:52> Patient was evaluated and cared for in conjunction with an advanced practice practitioner. I personally examined the patient and reviewed the chart and all pertinent data including imaging, telemetry, and laboratory results. I discussed the patient in detail with the advanced practice practitioner. Please see their note for complete H&P testing result and agreed upon plan of care for the patient. Subjective 2 Subjective: No events noted overnight. He denies chest pain or shortness of breath. Vitals/I&O/Wt Last Vital Signs Temp 98.0 F 04/09/25 07:42 Pulse 89 04/09/25 08:33 Resp 18 04/09/25 08:30 BP 90/57 04/09/25 07:42 Pulse Ox 96 04/09/25 08:30 O2 Del Method Nasal Cannula 04/09/25 08:30 O2 Flow Rate 3 04/09/25 04:00 FiO2 3 04/09/25 08:30 04/08/25 04/09/25 04/09/25 22:59 06:59 14:59 Intake Total 290 / 1450 450 / 1450 Output Total 1100 / 2200 600 / 2200 Balance -810 / -750 -150 / -750 Weight last 48 hrs Weight 289 lb Weight 289 lb 14.526 oz Physical Exam 2 Const: COMMON NORMALS: no acute distress and patient oriented x3 GENERAL APPEARANCE: cooperative and comfortable ORIENTATION/CONSCIOUSNESS: Yes awake, Yes oriented to person, Yes oriented to place and Yes oriented to time Chest: COMMONS NORMALS: normal inspection of the chest and normal palpation of entire chest wall CHEST: Yes Symmetrical chest wall rise Resp: COMMON NORMALS: normal respiratory effort, No retractions, No use of accessory muscles and clear to auscultation bilaterally EFFORT & INSPECTION: Yes symmetric chest movement AUSCULTATION: clear to auscultation bilaterally Cardio: COMMON NORMALS: regular rate, regular rhythm, S1 normal heart sound present, S2 normal heart sound present, No gallops present (Cardio), No clicks present (Cardio), No murmurs present (Cardio) and No rub (Cardio) RATE: r egular rate RHYTHM: regular rhythm HEART SOUNDS: S1 normal heart sound present and S2 normal heart sound present PERIPHERAL PULSES: radial pulses present Extremity: COMMON NORMALS: no pedal edema Neuro: COMMON NORMALS: patient oriented x3 and moves all extremities S ENSORIUM/ORIENTATION: Yes oriented to person, Yes oriented to place and Yes oriented to time Urinary Catheter Management: Robertson: Cath Placed During This Visit: yes Reason for Continuing Indwelling Catheter: Accurate Measurement of Urinary Output in Critically Ill Patients Urinary Catheter Date of Insertion: 04/06/25 Urinary Catheter Time of Insertion: 01:18 Data 04/09/25 04:36 04/09/25 04:36 Micro: Microbiology 04/06/25 01:00 Urine Culture - Final Urine,Clean Catch A&P Assessment and plan 1. Anemia: 2. Acute respiratory failure with hypoxia and hypercarbia: 3. Atrial fibrillation: 4. Acute on chronic HFrEF (heart failure with reduced ejection fraction): Plan: He appears to be doing well, euvolemic today. Will observe urine output after switch to oral Bumex twice daily occurring today. Can consider Entresto- he has moderate , currently has soft/borderline hypotensive blood pressures. He was previously on Jardiance, metoprolol succinate and spironolactone for home medications. He has history of CKD however creatinine has been normal this admission. Currently he is only on metoprolol succinate, will continue and optimize medications as able. Continue Plavix monotherapy due to significant anemia requiring transfusion. PDMP PDMP Reviewed: Not Reviewed Attestations 2 Medical Necessity Statement*: Per hospitalist Coding Level of Care Code Acute Code for g Fwd Diagnoses Anemia D64.9 Acute respiratory failure with hypoxia and hypercarbia J96.01; J96.02 Atrial fibrillation I48.91 Acute on chronic HFrEF (heart failure with reduced ejection fraction) I50.23
[2025-04-09] MEDS: pantoprazole 40 mg SDV IVP ×2 (11:07→23:01)
[2025-04-10] VITALS (12 sets, daily range): BP systolic 95–110; BP diastolic 58–75; PULSE 67–87; RESP 14–20; TEMP 36.6–37.1; O2SAT 94–98
[2025-04-10] MEDS: sucralfate 1 gm/10 mL Oral Liq UDC PO ×2 (04:44→11:18)
[2025-04-10 04:58] LABS: Hematocrit 33.9 % (37-53); Hemoglobin 9.40 g/dL (11.27-16.99); Mean Corpuscular HGB Conc 27.7 g/dL (30-55); Mean Corpuscular Hemoglobin 24.3 pg (27-33); Mean Corpuscular Volume 87.6 fl (82-101); Nucleated Red Blood Cells % 0 %; Platelet Count 459 10^3/cmm (157-399); Red Blood Count 3.87 10^6/uL (3.85-5.65); White Blood Count 10.15 10^3/uL (3.29-11.43)
[2025-04-10 05:32] LABS: Anion Gap 9.4 (5-19); Blood Urea Nitrogen 18 mg/dL (8-23); Calcium 8.1 mg/dL (8.5-10.5); Carbon Dioxide 37 mmol/L (22-29); Chloride 97 mmol/L (98-107); Creatinine Clr Calc Pharmacy 103.8839; Glucose 91 mg/dL (65-115); Osmolality Calculated 289 mOsm/kg (285-295); Potassium 4.4 mmol/L (3.5-5.1); Sodium 139 mmol/L (136-145)
[2025-04-10] MEDS: metoprolol succinate ER (24 HR) 25 mg Tablet 12.5 MG PO (08:08)
[2025-04-10] MEDS: piperacillin-tazobactam 3.375 GM in sodium chloride 0.9% (plus) 50 ML IV (08:10)
[2025-04-10] MEDS: pantoprazole 40 mg SDV IVP (11:18)
--- NOTE | 2025-04-10 13:47 | P.DS_ITS ---
Discharge Providers Date of Admission: 04/05/25 20:54 Date of Discharge: April 10, 2025 Attending Provider at Admission: Vijay Duncan MD Attending Provider at Discharge: Gordo Mcdowell MD Consults: Cardiology Primary Care Provider: Otilio Huang Diagnoses at Discharge Discharge Diagnosis 1. Blood in stool: Reason for Visit Reason for Visit: chest pain Brief History: 74 year old male presenting with AMS, NT RENO and respiratory failure. Hospital Course Hospital Course Acute combined respiratory and metabolic encephalopathy - Secondary to hypercarbia, hypoxia - Possible UTI, UA equivical. History of recurrent UTIs, chronic Robertson catheter, cont. Abx. - Associated anemia - mentation improved - cont. abx, change to oral on D/C Acute hypoxic hypercarbic respiratory failure HFrEF of 35-40% with exacerbation PNA - Multifactorial - Given patient's leukocytosis, encephalopathy, respiratory status, concern for sepsis possible pneumonia - CT angiogram of chest negative for PE - receiving blood products, risk of further fluid overload - continue oral Bumex on discharge - DuoNeb, budesonide - Respiratory therapy Sepsis, POA, no shock PNA - leukocytosis now resolved - lactic acid not elevated, UA negative, chest x-ray does show increased rales at lung bases possible atelectasis though other etiologies not excluded, CRP increased, Pro-Nathaniel not elevated, sputum culture not collected - blood/urine cultures NGTD -History of chronic Robertson catheter, history of recurrent UTIs, multidrug- resistant - For now continue broad-spectrum antibiotic therapy vancomycin, Zosyn, switch to oral on D/C - Patient does not qualify for fluid therapy as he is receiving blood products for his acute anemia, and his BNP is over 4000 is in respiratory failure from systolic diastolic CHF, high risk of worsening respiratory failure - right buttock carbuncle, eval per surgery, wound care orders placed. NSTEMI HFrEF - With recent history of PCI at [facility] - We will have to obtain the records - Had chest pain complaints - telemetry monitoring -Type I versus type II NSTEMI - Cardiology consulted - Continue monotherapy for now with Plavix - Continue statin - Continue beta-vaishnavi - Cardiac echo complete with EF or 35-40%, moderate , cont. to monitor OP. - Will hold off on therapeutic anticoagulant therapy as there is concern for acute anemia - reassess GDMT for HF on follow up with cardiology Acute on chronic anemia, severe GIB - During last hospitalization Hemoccult stools were positive for blood, required 4 units of blood, Eliquis was stopped - Now on Plavix - History of PCI within the last few months - received multiple unites PRBC - Protonix - Carafate - Monitor hemoglobin, slowly improving currently. - General Surgery consulted: unable to scope until medically optimized. H/O DVT - Patient is off Eliquis currently for severe anemia. DNR/DNI Protonix PPx: off AC currently for severe anemia with GIB - SCDs OK Diet: HH Disposition - discharge planning for today, follow up with cardiology after discharge as indicated. Physical Exam Const: COMMON NORMALS: no acute distress, patient oriented x3 and healthy appearing HENMT: COMMON NORMALS: normocephalic and atraumatic HEAD & SCALP: normocephalic and atraumatic Eye: COMMON NORMALS: Equal, round and reactive pupils present and EOMs intact bilaterally PUPIL: Yes Equal, round and reactive pupils present Neck/C-Spine: COMMON NORMALS: full ROM and no lymphadenopathy Lymph: LYMPHATIC: no lymphadenopathy noted Resp: COMMON NORMALS: No retractions, No use of accessory muscles and clear to auscultation bilaterally AUSCULTATION: clear to auscultation bilaterally OTHER: diminished breath sounds in bases Cardio: COMMON NORMALS: regular rate and regular rhythm RATE: regular rate RHYTHM: regular rhythm GI: COMMON NORMALS: Soft to palpation, non-tender and no masses PALPATION: Yes Soft to palpation Neuro: COMMON NORMALS: patient oriented x3 and CN's II-XII intact bilaterally Skin: NARRATIVE SKIN EXAM: right buttock superficial abscess with drainage, POA. Urinary Catheter Management: Robertson: Cath Placed During This Visit: yes Reason for Continuing Indwelling Catheter: Chronic Indwelling Urinary Catheter on Admission Urinary Catheter Date of Insertion: 04/06/25 Urinary Catheter Time of Insertion: 01:18 Discharge Data Studies Completed and Pending Completed Studies During Hospitalization Category Date Time Status CT angio chest PE protcl [id number] Stat Cat Scan 04/05/25 20:59 Completed XR chest 1V portable [id number] Stat Exams 04/05/25 18:44 Completed CV. echo complete* [id number] Routine Ultrasound 04/06/25 22:39 Completed Pending at discharge Category Date Time Status BMP [Basic Metabolic Panel] AM LABS Lab 04/11/25 04:00 Ordered Blood Culture Stat Lab 04/05/25 21:15 Results Radiology Impressions Chest X-Ray 04/05/25 18:44 IMPRESSION: Increased strands at the lung bases, possibly atelectasis though other etiologies not excluded. Query mild interstitial edema. Chest CTA 04/05/25 20:59 IMPRESSION: No definitive radiographic evidence of pulmonary embolism. Trace right and mild left pleural effusion with associated airspace opacity, likely compressive atelectasis with superimposed airspace disease of other etiology not totally excluded. Aortic atherosclerosis. Laboratory Results WBC 10.15 10^3/uL (3.29-11.43) 04/10/25 04:30 RBC 3.87 10^6/uL (3.85-5.65) 04/10/25 04:30 Hgb 9.40 g/dL (11.27-16.99) L 04/10/25 04:30 Hct 33.9 % (37-53) L 04/10/25 04:30 MCV 87.6 fl (82-101) 04/10/25 04:30 MCH 24.3 pg (27-33) L 04/10/25 04:30 MCHC 27.7 g/dL (30-55) L 04/10/25 04:30 RDW 18.8 % (12.1-15.1) H 04/10/25 04:30 Plt Count 459 10^3/cmm (157-399) H 04/10/25 04:30 MPV 10.0 fL (7.4-10.4) 04/10/25 04:30 Neut % (Auto) 65.4 % 04/10/25 04:30 Lymph % (Auto) 11.2 % 04/10/25 04:30 [place] % (Auto) 8.4 % 04/10/25 04:30 Eos % (Auto) 14.0 % 04/10/25 04:30 Baso % (Auto) 0.7 % 04/10/25 04:30 Reticulocyte % (Auto) 2.9 % (0.5-2.0) H 04/05/25 18:59 Neut # (Auto) 6.64 10^3/uL (1.8-7.7) 04/10/25 04:30 Lymph # (Auto) 1.1 10^3/uL (0.8-4.8) 04/10/25 04:30 [place] # (Auto) 0.9 10^3/uL (0.2-0.9) 04/10/25 04:30 Eos # (Auto) 1.4 10^3/uL (0.0-0.8) H 04/10/25 04:30 Baso # (Auto) 0.1 10^3/uL (0.0-0.1) 04/10/25 04:30 Nucleated RBC % (auto) 0 % 04/10/25 04:30 Nucleated RBCs # 0.0 /100WBC 04/10/25 04:30 PT 14.10 SECONDS (12.1-14.9) 04/05/25 18:59 INR 1.02 (0.8-1.2) 04/05/25 18:59 APTT 27.6 SECONDS (23.9-36.7) 04/05/25 18:59 D-Dimer 1.47 ug/mLFEU (0-0.59) H 04/05/25 18:59 Specimen Type Arterial 04/05/25 20:18 Sample Site Radial, left 04/05/25 20:18 ABG pH 7.32 (7.35-7.45) L 04/05/25 20:18 ABG pCO2 71.6 mmHg (35-45) H* 04/05/25 20:18 ABG pO2 131.0 mmHg (80.0-100.0) H 04/05/25 20:18 ABG HCO3 36.8 mmol/L (22-26) H 04/05/25 20:18 ABG Base Excess 9.6 mmol/L (-2.0-2.0) H 04/05/25 20:18 Ivan Test Pos 04/05/25 20:18 Hematocrit 21.1 % (42-52) L 04/05/25 20:18 O2 Delivery Device Nc 04/05/25 20:18 O2 Liters/Min 4.0 % 04/05/25 20:18 Mill Control Operator ID [email or web address] 04/05/25 20:18 Sodium 139 mmol/L (136-145) 04/10/25 04:30 Potassium 4.4 mmol/L (3.5-5.1) 04/10/25 04:30 Chloride 97 mmol/L (98-107) L 04/10/25 04:30 Carbon Dioxide 37 mmol/L (22-29) H 04/10/25 04:30 Anion Gap 9.4 (5-19) 04/10/25 04:30 BUN 18 mg/dL (8-23) 04/10/25 04:30 Creatinine 0.9 mg/dL (0.7-1.2) 04/10/25 04:30 GFR Calculation Not Reportable 04/10/25 04:30 Glucose 91 mg/dL (65-115) 04/10/25 04:30 POC Glucose 100 mg/dL (70-110) 04/06/25 13:05 Calculated Osmolality 289 mOsm/kg (285-295) 04/10/25 04:30 Lactic Acid 0.9 mmol/L (0.5-2.2) 04/05/25 18:59 Calcium 8.1 mg/dL (8.5-10.5) L 04/10/25 04:30 Phosphorus 3.1 mg/dL (2.5-4.5) 04/06/25 04:09 Magnesium 2.7 mg/dL (1.7-2.3) H 04/06/25 04:09 Iron 11 ug/dL (59-158) L 04/05/25 18:59 TIBC 317 mcg/dl 04/05/25 18:59 % Saturation 3.4 % (20-50) L 04/05/25 18:59 Unsat Iron Binding 306 ug/dL (112-347) 04/05/25 18:59 Ferritin 36 ng/mL (30-400) 04/05/25 18:59 Total Bilirubin 0.6 mg/dL (0.15-1.2) 04/07/25 04:23 AST 9 U/L (0-40) 04/07/25 04:23 ALT 6 U/L (0-41) 04/07/25 04:23 Alkaline Phosphatase 117 U/L (40-130) 04/07/25 04:23 Troponin T Baseline 100 ng/L (0-15) H 04/05/25 18:59 Troponin T 120 Minute 101.1 ng/L (0-15) H 04/05/25 21:10 Delta Troponin T 1.1 ABS# (0-10) 04/05/25 21:10 Troponin T Hi Sens 6Hr 100.1 ng/L (0-15) H 04/06/25 01:00 Troponin T Hi Sens 6Hr Delta 0.1 ng/L (0-12) 04/06/25 01:00 C-Reactive Protein 65.6 mg/L (0.0-4.9) H 04/05/25 18:59 NT-Pro-B Natriuret Pep 5128 pg/mL (0-125) H 04/06/25 04:09 Total Protein 8.0 g/dL (6.6-8.7) 04/07/25 04:23 Albumin 2.7 g/dL (3.5-5.2) L 04/07/25 04:23 Globulin 5.3 g/dL (1.3-4.6) H 04/07/25 04:23 Procalcitonin 0.13 ng/mL (0-0.5) 04/05/25 18:59 Urine Color Yellow (Yellow) 04/06/25 01:00 Urine Appearance Clear (CLEAR) 04/06/25 01:00 Urine pH 5.5 (5-7) 04/06/25 01:00 Ur Specific Cooper 1.012 (1.005-1.030) 04/06/25 01:00 Urine Protein Negative (Negative) 04/06/25 01:00 Urine Glucose (UA) Trace (Normal) H 04/06/25 01:00 Urine Ketones Negative (Negative) 04/06/25 01:00 Urine Blood 1+ (Negative) A 04/06/25 01:00 Urine Nitrate Negative (Negative) 04/06/25 01:00 Urine Bilirubin Negative (Negative) 04/06/25 01:00 Urine Urobilinogen 0.2 mg/dL (Negative) 04/06/25 01:00 Ur Leukocyte Esterase 3+ (Negative) A 04/06/25 01:00 Urine RBC 6-10 /hpf (0-2) 04/06/25 01:00 Urine WBC 51-100 /hpf (0-5) H 04/06/25 01:00 Ur Squamous Epith Cells 0-5 /hpf (0-5) 04/06/25 01:00 Amorphous Sediment Not Reportable 04/06/25 01:00 Urine Bacteria None seen /hpf (NONE) 04/06/25 01:00 Hyaline Casts 6.61 /lpf 04/06/25 01:00 Vancomycin Trough 18.4 ug/mL (10-15) H 04/08/25 23:04 Blood Type O Positive 04/05/25 19:58 Rho(D) Type Rh positive 04/05/25 19:58 Antibody Screen Negative 04/05/25 19:58 Crossmatch See Detail 04/05/25 19:58 Vitals Last Vital Signs Temp 97.8 F 04/10/25 12:00 Pulse 70 04/10/25 13:00 Resp 16 04/10/25 13:00 BP 96/63 04/10/25 12:00 Pulse Ox 96 04/10/25 13:00 O2 Del Method Nasal Cannula 04/10/25 13:00 O2 Flow Rate 3 04/10/25 13:00 FiO2 3 04/10/25 08:00 Discharge Plan Discharge Patient Disposition: Home Condition: Stable Prescriptions: New metoprolol succinate 25 mg Tablet Extended Release 24 Hr 12.5 mg PO DAILY Qty: 30 2RF bumetanide 1 mg Tablet 1 mg PO BID@0500,1700 Qty: 60 2RF amoxicillin-pot clavulanate 875-125 mg tablet 1 tab PO BID Qty: 14 0RF sucralfate 100 mg/mL Suspension 1 g PO Q6H Qty: 420 2RF doxycycline hyclate 100 mg capsule 100 mg PO DAILY Qty: 14 0RF Continued (DME) Right cockup splint See Rx Instructions .Route .MEDSUPPLY Qty: 1 0RF Rx Instructions: As directed albuterol sulfate 2.5 mg /3 mL (0.083 %) solution for nebulization 2.5 mg continuous nebulization .TID PRN (Reason: respitory failure) triamcinolone acetonide 0.5 % cream See Rx Instructions .ROUTE .COMPLEX Rx Instructions: 1 application topically to buttocks every shift for itching/rash. acetaminophen [Tylenol] 325 mg Tablet 650 mg PO Q4H PRN (Reason: elevated temp/pain) atorvastatin 40 mg tablet 40 mg PO QAM melatonin 3 mg Tablet 6 mg PO BEDTIME PRN (Reason: Insomnia) clopidogrel 75 mg tablet 75 mg PO DAILY nitroglycerin 0.4 mg tablet, sublingual See Rx Instructions .ROUTE .COMPLEX Rx Instructions: Give 1 tablet 0.4 sublingual every 5 minutes as needed for chest pain x3 doses if no relief call multivitamin Tablet 1 tab PO QAM sennosides [senna] 8.6 mg Tablet 8.6 mg PO DAILY PRN (Reason: Constipation) magnesium hydroxide [Milk of Magnesia] 400 mg/5 mL Suspension 30 ml PO DAILY PRN (Reason: Constipation) bisacodyl 10 mg Suppository 10 mg DE .Q72H PRN (Reason: Constipation) docusate sodium [Colace] 100 mg Capsule 100 mg PO BID ergocalciferol (vitamin D2) 1,250 mcg (50,000 unit) capsule 50,000 mcg PO Q30D polyethylene glycol 3350 [Miralax] 17 gram/dose Powder 17 g PO DAILY PRN (Reason: bowel management) albuterol sulfate 90 mcg/actuation HFA aerosol inhaler 2 puff INHALATION Q4H PRN (Reason: Shortness Of Breath Or Wheezing) alum-mag hydroxide-simeth [Mylanta Maximum Strength] 400-400-40 mg/5 mL Suspension 30 ml PO Q2H PRN (Reason: indigeston/heartburn/gas) Trelegy Ellipta 200-62.5-25 mcg blister with device 1 inh INHALATION DAILY loperamide [Imodium A-D] 2 mg Tablet 2 mg PO Q6H PRN (Reason: Diarrhea) oxycodone-acetaminophen 10-325 mg tablet 1 tab PO Q6H PRN (Reason: Pain) gabapentin 300 mg capsule 300 mg PO BID levothyroxine 50 mcg tablet 50 mcg PO DAILY fluoxetine 10 mg capsule 10 mg PO DAILY Rx Instructions: along with 20mg to=30mg total fluoxetine 20 mg capsule 20 mg PO DAILY Rx Instructions: along with 10mg to=30mg total bisacodyl 5 mg Tablet 5 mg PO DAILY PRN (Reason: Constipation) potassium chloride 10 mEq tablet,ER particles/crystals 10 meq PO BID Jardiance 10 mg tablet 10 mg PO DAILY Changed pantoprazole 40 mg tablet,delayed release (DR/EC) 40 mg PO BID Qty: 60 2RF Discontinued metoprolol succinate 25 mg tablet extended release 24 hr 25 mg PO DAILY spironolactone 50 mg tablet 50 mg PO DAILY bumetanide 1 mg tablet 1 mg PO BEDTIME Discharge Order = DC NOW: Discharge Order (Routine); Ordered 04/10/25 Ordered By: Gordo Mcdowell Referrals: Vahid Wang MD [Physician, General Surgery] - 04/24/25 8:00 am Otilio Huang [Primary Care Provider, Internal Medicine] Tequila Jacobs MD [Physician, Cardiology] - 05/01/25 2:30 pm Referral Note: Appointment will be with Nurse Practitioner Milagro Currie. Discharge Diet: Usual diet Discharge Activity: Resume usual activity Patient Instructions: Opioid Safety, Patient Portal & Diana Instructions Discharge Attestations Time Spent in Discharge Care*: greater than 30 min Specific Discharge Activities: educating patient, discussing with pcp/other providers, discussing with case consultant/social workers/dc planners, documenting/other paperwork and evaluating patient/reviewing data Status at Discharge: Cognitive status at discharge: cognitively intact , Behavioral status at discharge: cooperative , Quality Metrics Clinical Quality Measures [ No reported AMI, CVA or VTE this stay] Coding Level of Care Code Acute Code for Chg Fwd Diagnoses Blood in stool K92.1
--- NOTE | 2025-04-10 13:52 | P.PN_ITS ---
<Statement entered by Tequila Jacobs MD - 04/11/25 15:50> Patient was evaluated and cared for in conjunction with an advanced practice practitioner. I personally examined the patient and reviewed the chart and all pertinent data including imaging, telemetry, and laboratory results. I discussed the patient in detail with the advanced practice practitioner. Please see their note for complete H&P testing result and agreed upon plan of care for the patient. Subjective 2 Subjective: He appears to be doing well, breathing has improved significantly over the last few days. He appears well-balanced on Bumex. Blood pressure soft running 95- 110 systolic. Vitals/I&O/Wt Last Vital Signs Temp 97.8 F 04/10/25 12:00 Pulse 70 04/10/25 13:00 Resp 16 04/10/25 13:00 BP 96/63 04/10/25 12:00 Pulse Ox 96 04/10/25 13:00 O2 Del Method Nasal Cannula 04/10/25 13:00 O2 Flow Rate 3 04/10/25 13:00 FiO2 3 04/10/25 08:00 04/09/25 04/10/25 04/10/25 22:59 06:59 14:59 Intake Total 1130 / 2590 1050 / 2590 410 / 410 Output Total 2000 / 2600 600 / 2600 Balance -870 / -10 450 / -10 410 / 410 Weight last 48 hrs Weight 294 lb Weight 289 lb Physical Exam 2 Const: COMMON NORMALS: no acute distress and patient oriented x3 GENERAL APPEARANCE: cooperative and comfortable ORIENTATION/CONSCIOUSNESS: Yes awake, Yes oriented to person, Yes oriented to place and Yes oriented to time Chest: COMMONS NORMALS: normal inspection of the chest and normal palpation of entire chest wall CHEST: Yes Symmetrical chest wall rise Resp: COMMON NORMALS: normal respiratory effort, No retractions, No use of accessory muscles and clear to auscultation bilaterally EFFORT & INSPECTION: Yes symmetric chest movement AUSCULTATION: clear to auscultation bilaterally Cardio: COMMON NORMALS: regular rate, regular rhythm, S1 normal heart sound present, S2 normal heart sound present, No gallops present (Cardio), No clicks present (Cardio), No murmurs present (Cardio) and No rub (Cardio) RATE: r egular rate RHYTHM: regular rhythm HEART SOUNDS: S1 normal heart sound present and S2 normal heart sound present PERIPHERAL PULSES: radial pulses present Extremity: COMMON NORMALS: no pedal edema Neuro: COMMON NORMALS: patient oriented x3 and moves all extremities S ENSORIUM/ORIENTATION: Yes oriented to person, Yes oriented to place and Yes oriented to time Urinary Catheter Management: Robertson: Cath Placed During This Visit: yes Reason for Continuing Indwelling Catheter: Chronic Indwelling Urinary Catheter on Admission Urinary Catheter Date of Insertion: 04/06/25 Urinary Catheter Time of Insertion: 01:18 Data 04/10/25 04:30 04/10/25 04:30 A&P Assessment and plan 1. Anemia: 2. Acute respiratory failure with hypoxia and hypercarbia: 3. Atrial fibrillation: 4. Acute on chronic HFrEF (heart failure with reduced ejection fraction): Plan: Agree with probable discharge home today. He can continue monotherapy with Plavix due to severe anemia. Recommend discharge on Protonix, metoprolol succinate 12.5 mg daily, Bumex 1 mg twice daily, atorvastatin. We can see him in follow-up with Dr. Dejesus in cardiology clinic in 2 weeks, we will reassess heart failure management at that time. PDMP PDMP Reviewed: Not Reviewed Attestations 2 Medical Necessity Statement*: Probable discharge home Coding Level of Care Code Acute Code for [facility] Fwd Diagnoses Anemia D64.9 Acute respiratory failure with hypoxia and hypercarbia J96.01; J96.02 Atrial fibrillation I48.91 Acute on chronic HFrEF (heart failure with reduced ejection fraction) I50.23
--- NOTE | 2025-04-10 14:57 | PC.NURSE ---
Report called to Heide Lewis. Report given to Julianna Willis RN. Clarifying with Case management transport.
--- NOTE | 2025-04-10 15:34 | PC.NURSE ---
Discharge instructions provided to [facility] transport personnel. Pt discharged via W/C and O2 at 3lpm.
== END 2025-04-10 15:25 | disposition intermediate care facility (04) | DRG 698 ==
LOC: ER 20:04 → CSU 20:27 → ICU 20:54 → MEDSURG 04-08 10:04
PROVIDERS: Internal Medicine; Student in an Organized Health Care Education/Training Program; Admitting Provider Family Medicine; Emergency Provider Emergency Medicine; PCP Student in an Organized Health Care Education/Training Program; Visit Provider Internal Medicine
DX: T83.511A Infection and inflammatory reaction due to indwelling urethral catheter, initial encounter (principal); A41.9 Sepsis, unspecified organism; G93.41 Metabolic encephalopathy; I21.4 Non-ST elevation (NSTEMI) myocardial infarction; J96.02 Acute respiratory failure with hypercapnia; J96.01 Acute respiratory failure with hypoxia; I50.23 Acute on chronic systolic (congestive) heart failure; K92.1 Melena; Y73.8 Miscellaneous gastroenterology and urology devices associated with adverse incidents, not elsewhere classified; N39.0 Urinary tract infection, site not specified; L02.33 Carbuncle of buttock; Z66 Do not resuscitate; I25.10 Atherosclerotic heart disease of native coronary artery without angina pectoris; N18.9 Chronic kidney disease, unspecified; I48.91 Unspecified atrial fibrillation; D50.9 Iron deficiency anemia, unspecified; J44.9 Chronic obstructive pulmonary disease, unspecified; Z87.440 Personal history of urinary (tract) infections; Z95.5 Presence of coronary angioplasty implant and graft; Z86.718 Personal history of other venous thrombosis and embolism; Z79.01 Long term (current) use of anticoagulants; Z79.02 Long term (current) use of antithrombotics/antiplatelets; Z79.82 Long term (current) use of aspirin
CPT/HCPCS: 36415; 36416; 36430; 36600; 51702; 71045; 71275; 80048; 80053; 80202; 81001; 82728; 82803; 82962; 83540; 83550; 83605; 83735; 83880; 84100; 84145; 84484; 85014; 85018; 85025; 85045; 85378; 85610; 85730; 86140; 86850; 86900; 86920; 87040; 87086; 93005; 93306; 94640; 94664; 99285; J2470; J2543; J3372; J3490; J7626; J9999; P9016; P9040

== ENCOUNTER → 2025-04-24 07:37 | Outpatient (BNVA) | payer MEDICARE, MEDICAID, SELFPAY | PROVIDERS: PCP Student in an Organized Health Care Education/Training Program; Visit Provider Student in an Organized Health Care Education/Training Program | DX: Z09 Encounter for follow-up examination after completed treatment for conditions other than malignant neoplasm (principal) | CPT/HCPCS: 99203 ==

== ENCOUNTER 2025-05-03 22:51 | Inpatient (IN) | payer MEDICARE, MEDICAID, SELFPAY ==
--- OUTSIDE RECORDS SUMMARY | 2003-08-27 19:00 | XMS_ITS | Continuity of Care Document ---
Author Name [facility] Address [address] [place] [address] Organization [facility] Care Team Providers Care Inspector Rough Castings Name Role Phone [facility] Unavailable Unavailable Problems Problem Status Onset Date Problem Type Date of Resolution Comments Source Chronic obstructive lung disease (disorder) Active Condition Major depressive disorder (disorder) Active Condition Patient immunocompromized (finding) Active Condition Gastroesophageal reflux disease without esophagitis (disorder) Diagnosis Anxiety disorder (disorder) Diagnosis Polyneuropathy (disorder) Diagnosis Leukocytosis (disorder) Diagnosis Essential hypertension (disorder) Diagnosis Hidradenitis suppurativa (disorder) Diagnosis Band neutrophil count above reference range (finding) Diagnosis
[2025-05-03 22:52] VITALS: BP 130/71; PULSE 75; RESP 18; TEMP 36.8; O2SAT 97; BMI 41.1
--- OUTSIDE RECORDS SUMMARY | 2025-05-03 23:06 | XMS_ITS | Encounter Summary ---
Author Organization [facility] Address [address] [place] [address] Care Team Providers Care Educational Technologist Name Role Phone Roshan Jimenez DO Primary Care Provider Unav ailable Encounter Details Date Type Department Care Team (Latest Contact Info) Description 02/10/2004 Outpatient [email or web address] [phone] [place] [address] Roshan Jimenez DO NO ADDRESS ON FILE CHRONIC AIRWAY OBSTRUCTION NEC ([facility]) (Primary Dx); HYPERTENSION NOS; OBESITY NOS; OSTEOARTHROS NOS-UNSPEC Social History Tobacco Use Types Packs/Day Years Used Date Smoking Tobacco: Never Assessed Sex and Gender Information Value Date Recorded Sex Assigned at Not on file 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 Gender Identity Not on file Sexual Orientation Not on file documented as of this encounter Plan of Treatment Not on file documented as of this encounter Visit Diagnoses Diagnosis Chronic airway obstruction, not elsewhere classified ([facility])- Primary Chronic airway obstruction, not elsewhere classified Unspecified essential hypertension Obesity, unspecified Osteoarthrosis, unspecified whether generalized or localized, unspecified site documented in this encounter Care Teams Educational Technologist Relationship Specialty Start Date End Date Roshan Jimenez DO NO ADDRESS ON FILE PCP - General 03/26/03 documented as of this encounter
--- OUTSIDE RECORDS SUMMARY | 2025-05-03 23:06 | XMS_ITS | Encounter Summary ---
Author Organization [facility] Address [address] [place] [address] Care Team Providers Care Lan Administrator Name Role Phone Roshan Jimenez DO Primary Care Provider Unav ailable Encounter Details Date Type Department Care Team (Latest Contact Info) Description 03/26/2003 Outpatient Historical [facility] [place] [address] [facility] [address] [place] [address] Demetri Chávez MD [address] [facility] [address] [place] [address] SCREENING MAL NEOP-COLON (Primary Dx) Social History Tobacco Use Types Packs/Day Years Used Date Smoking Tobacco: Never Assessed Sex and Gender Information Value Date Recorded Sex Assigned at Not on file 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
--- OUTSIDE RECORDS SUMMARY | 2025-05-03 23:06 | XMS_ITS | Encounter Summary ---
Author Organization [facility] Address [address] [place] [address] Care Team Providers Care Field Representative/Health Education Name Role Phone Roshan Jimenez DO Primary Care Provider Unav ailable Encounter Details Date Type Department Care Team (Latest Contact Info) Description 02/04/[address] 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
--- OUTSIDE RECORDS SUMMARY | 2025-05-03 23:06 | XMS_ITS | Encounter Summary ---
Author Organization [facility] Address [address] [place] [address] Care Team Providers Care Telecommunication Equipment Repairer Name Role Phone Roshan Jimenez DO Primary Care Provider Unav ailable Encounter Details Date Type Department Care Team (Latest Contact Info) Description 08/05/2003 Outpatient [facility] [address] [place] [address] Roshan Jimenez DO NO ADDRESS ON FILE HYPERTENSION NOS (Primary Dx); CHRONIC AIRWAY OBSTRUCTION NEC (CMS/HCC); UNSPECIFIED VIRAL INFECTION Social History Tobacco Use Types Packs/Day Years Used Date Smoking Tobacco: Never Assessed Sex and Gender Information Value Date Recorded Sex Assigned at Not on file 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 Gender Identity Not on file Sexual Orientation Not on file documented as of this encounter Plan of Treatment Not on file documented as of this encounter Visit Diagnoses Diagnosis Unspecified essential hypertension- Primary Chronic airway obstruction, not elsewhere classified (CMS/HCC) Chronic airway obstruction, not elsewhere classified Unspecified viral infection, in conditions classified elsewhere and of unspecified site documented in this encounter Care Teams Telecommunication Equipment Repairer Relationship Specialty Start Date End Date Roshan Jimenez DO NO ADDRESS ON FILE PCP - General 03/26/03 documented as of this encounter
--- OUTSIDE RECORDS SUMMARY | 2025-05-03 23:06 | XMS_ITS | Encounter Summary ---
Author Organization [facility] Address [address] [place] [address] Care Team Providers Care Blacktop Paver Operator Name Role Phone Roshan Jimenez DO Primary Care Provider Unav ailable Encounter Details Date Type Department Care Team (Latest Contact Info) Description 12/11/2002 Outpatient [facility] Podiatry-[place] [address] [place] [address] Noé Rosa, DPM [address] [place] [address] Onychia of toe (Primary Dx) Social History Tobacco Use Types Packs/Day Years Used Date Smoking Tobacco: Never Assessed Sex and Gender Information Value Date Recorded Sex Assigned at Not on file 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
--- OUTSIDE RECORDS SUMMARY | 2025-05-03 23:06 | XMS_ITS | Encounter Summary ---
Author Organization [facility] Address [address] [place] [address] Care Team Providers Care Information Technology Technician Name Role Phone Roshan Jimenez DO Primary Care Provider Unav ailable Encounter Details Date Type Department Care Team (Latest Contact Info) Description 03/26/2003 Outpatient Historical [facility] Gastroenterology- [place] [address] [address] Demetri Chávez MD [address] [facility] [address] [place] [address] SCREENING MAL NEOP-COLON (Primary Dx) Social History Tobacco Use Types Packs/Day Years Used Date Smoking Tobacco: Never Assessed Sex and Gender Information Value Date Recorded Sex Assigned at Not on file 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
--- OUTSIDE RECORDS SUMMARY | 2025-05-03 23:06 | XMS_ITS | Encounter Summary ---
Author Organization [facility] Address [address] [place] [address] Care Team Providers Care Hop Sorter Name Role Phone Roshan Jimenez DO Primary Care Provider Unav ailable Encounter Details Date Type Department Care Team (Latest Contact Info) Description 11/11/2003 Outpatient [facility] Podiatry-Stevo Bal [place] [address] [place] [address] Noé Rosa, DPM [address] [place] [address] Onychia of toe (Primary Dx); INGROWING NAIL Social History Tobacco Use Types Packs/Day Years Used Date Smoking Tobacco: Never Assessed Sex and Gender Information Value Date Recorded Sex Assigned at Not on file 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
--- OUTSIDE RECORDS SUMMARY | 2025-05-03 23:06 | XMS_ITS | Encounter Summary ---
Author Organization [facility] Address [address] [place] [address] Care Team Providers Care Pizza Delivery Driver Name Role Phone Roshan Jimenez DO Primary Care Provider Unav ailable Encounter Details Date Type Department Care Team (Latest Contact Info) Description 08/09/2004 Outpatient [facility] [address] [place] [address] Roshan Jimenez DO NO ADDRESS ON FILE CHRONIC AIRWAY OBSTRUCTION NEC ([facility]) (Primary Dx); REFLUX ESOPHAGITIS; HYPERTENSION NOS Social History Tobacco Use Types Packs/Day Years Used Date Smoking Tobacco: Never Assessed Sex and Gender Information Value Date Recorded Sex Assigned at Not on file 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
--- OUTSIDE RECORDS SUMMARY | 2025-05-03 23:06 | XMS_ITS | Encounter Summary ---
Author Organization [facility] Address [address] [place] [address] Care Team Providers Care Spinning Lathe Operator Name Role Phone Roshan Jimenez DO Primary Care Provider Unav ailable Encounter Details Date Type Department Care Team (Latest Contact Info) Description 11/25/2003 Outpatient Historical [facility] Podiatry-Stevo Bal [place] [address] [place] [address] Noé Rosa, DPM [address] [place] [address] Onychia of toe (Primary Dx); INGROWING NAIL Social History Tobacco Use Types Packs/Day Years Used Date Smoking Tobacco: Never Assessed Sex and Gender Information Value Date Recorded Sex Assigned at Not on file 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
--- NOTE | 2025-05-03 23:07 | XRR_ITS ---
PROCEDURE INFORMATION: Exam: XR Chest Exam date and time: 05/03/2025 11:11 PM Age: 74 years old Clinical indication: Prior surgery; Surgery date: 6+ months; Surgery type: Coronary stents; EMS arrival from residential for general weakness. History of chf and copd. ; Additional info: AMS weakness TECHNIQUE: Imaging protocol: Radiologic exam of the chest. Views: 1 view. COMPARISON: CT angio chest PE protcl [id number] 04/05/2025 10:01 PM FINDINGS: Tubes, catheters and devices: Indeterminate devices overlie the right upper chest , the left axilla, and lower neck. Lungs: Increased bronchovascular markings throughout both lungs and increased pulmonary vascularity and pulmonary kev and vascular shadows. There is diffuse airspace opacities in the left lung, worst in the lower left lung. Findings are concerning for pulmonary edema. Atypical infection /infection can give a similar appearance. Clinical correlation is recommended. Pleural spaces: The left costophrenic angle is obscured, concerning for small to moderate layering left pleural effusion. Small right pleural effusion is suspected. No pneumothorax. Heart/Mediastinum: The cardiomediastinal silhouette is enlarged. Vasculature: The thoracic aorta is tortuous and atherosclerotic. Bones/joints: There are degenerative changes of the spine and shoulder joints. XR/XR chest 1V portable [id number] IMPRESSION: 1. Findings concerning for congestive heart failure. Clinical correlation is recommended. 2. Additional findings as detailed in the body of the report.
--- NOTE | 2025-05-03 23:07 | CTR_ITS ---
PROCEDURE INFORMATION: Exam: CT Head Without Contrast Exam date and time: 05/03/2025 11:19 PM Age: 74 years old Clinical indication: EMS arrival from senior living for general weakness; Additional info: AMS TECHNIQUE: Imaging protocol: Computed tomography of the head without contrast. Radiation optimization: All CT scans at this facility use at least one of these dose optimization techniques: automated exposure control; mA and/or kV adjustment per patient size (includes targeted exams where dose is matched to clinical indication); or iterative reconstruction. COMPARISON: No relevant prior studies available. RADIATION DOSE METRICS: Total DLP (mGy-cm): 1470.58 FINDINGS: Brain: No acute intra- or extra axial fluid collections are identified. The basal cisterns are patent. No mass effect or midline shift is seen. The wyatt-white matter differentiation is normal. Periventricular hypoattenuation are nonspecific but likely the sequela of chronic small vessel ischemic disease. There is a partially empty sella. Low-lying cerebellar tonsils is, up to 5 mm below the foramen magnum which could represent cerebellar ectopia or Cerebral ventricles: There is mild cerebral and cerebellar volume loss.. Paranasal sinuses: The paranasal sinuses appear grossly clear. Mastoid air cells: The mastoid air cells appear grossly clear. Orbital cavities: The orbits appear normal. Bones: No acute calvarial fracture is identified. Soft tissues: No soft tissue abnormalities identified. Vasculature: There are atherosclerotic calcifications of the carotid siphons and the V4 segments of the vertebral arteries. CT/CT head wo con* [id number] IMPRESSION: 1. No evidence of acute intracranial hemorrhage, mass effect, or midline shift. 2. Borderline low-lying cerebellar tonsils approximately 5 mm below the level of the foramen magnum which could represent cerebellar ectopia or mild Chiari 1 malformation. MRI of the brain and cervical spine is recommended for further evaluation. 3. There is a partially empty sella.
--- OUTSIDE RECORDS SUMMARY | 2025-05-03 23:07 | XMS_ITS | Encounter Summary ---
Author Organization [facility] Address [address] [place] [address] Care Team Providers Care Communication Lecturer Name Role Phone Roshan Jimenez DO Primary Care Provider Unav ailable Encounter Details Date Type Department Care Team (Latest Contact Info) Description 02/15/2005 Outpatient [facility] [address] [place] [address] Roshan Jimenez DO NO ADDRESS ON FILE CHRONIC AIRWAY OBSTRUCTION NEC ([facility]) (Primary Dx); OBESITY NOS; HYPERTENSION NOS; OTHER UNSPEC SLEEP APNEA Social History Tobacco Use Types Packs/Day Years Used Date Smoking Tobacco: Never Assessed Sex and Gender Information Value Date Recorded Sex Assigned at Not on file 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 Gender Identity Not on file Sexual Orientation Not on file documented as of this encounter Plan of Treatment Not on file documented as of this encounter Visit Diagnoses Diagnosis Chronic airway obstruction, not elsewhere classified ([facility])- Primary Chronic airway obstruction, not elsewhere classified Obesity, unspecified Unspecified essential hypertension Unspecified sleep apnea documented in this encounter Care Teams Communication Lecturer Relationship Specialty Start Date End Date Roshan Jimenez DO NO ADDRESS ON FILE PCP - General 03/26/03 documented as of this encounter
--- OUTSIDE RECORDS SUMMARY | 2025-05-03 23:07 | XMS_ITS | Encounter Summary ---
Author Organization [facility] Address [address] [place] [address] Care Team Providers Care Oven Attendant Name Role Phone Roshan Jimenez DO Primary Care Provider Unav ailable Encounter Details Date Type Department Care Team (Latest Contact Info) Description 01/01/2001 Outpatient [facility] [address] [place] [address] Roshan Jimenez DO NO ADDRESS ON FILE Obstructive chronic bronchitis with exacerbation (CMS/HCC) (Primary Dx); Depressive disorder, not elsewhere classified; Edema; Unspecified essential hypertension Social History Tobacco Use Types Packs/Day Years Used Date Smoking Tobacco: Never Assessed Sex and Gender Information Value Date Recorded Sex Assigned at Not on file 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
--- OUTSIDE RECORDS SUMMARY | 2025-05-03 23:07 | XMS_ITS | Encounter Summary ---
Author Organization [facility] Address [address] [place] [address] Care Team Providers Care Discovery Manager Name Role Phone Roshan Jimenez DO Primary Care Provider Unav ailable Encounter Details Date Type Department Care Team (Latest Contact Info) Description 10/20/2006 Outpatient Historical [facility] [address] [place] [address] [place] [address] Merlin Reilly MD NO ADDRESS ON FILE Obstructive Sleep Apnea (Primary Dx) Social History Tobacco Use Types Packs/Day Years Used Date Smoking Tobacco: Never Assessed Sex and Gender Information Value Date Recorded Sex Assigned at Not on file Legal Sex Male 4:59 AM MANAGER LAB Gender Identity Not on file Sexual Orientation Not on file documented as of this encounter Plan of Treatment Not on file documented as of this encounter Visit Diagnoses Diagnosis Obstructive sleep apnea- Primary Obstructive sleep apnea (adult) (pediatric) documented in this encounter Care Teams Discovery Manager Relationship Specialty Start Date End Date Roshan Jimenez DO NO ADDRESS ON FILE PCP - General 03/26/03 documented as of this encounter
--- OUTSIDE RECORDS SUMMARY | 2025-05-03 23:07 | XMS_ITS | Encounter Summary ---
Author Organization [facility] Address [address] [place] [address] Care Team Providers Care Plasterer Maintenance Name Role Phone Roshan Jimenez DO Primary Care Provider Unav ailable Encounter Details Date Type Department Care Team (Latest Contact Info) Description 01/22/[address] 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
--- OUTSIDE RECORDS SUMMARY | 2025-05-03 23:07 | XMS_ITS | Encounter Summary ---
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
--- OUTSIDE RECORDS SUMMARY | 2025-05-03 23:07 | XMS_ITS | Encounter Summary ---
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 INR 1.9 [facility] Comment: Expected Values for INR: DVT/PE Goal INR 2.5; range 2.0 - 3.0 Valve Replacement Tissue Goal INR 2.5; range 2.0 - 3.0 Mechanical Goal INR 3.0; range 2.5 - 3.5 POST-CA Goal INR 2.5; range 2.0 - 3.0 or Goal 3.0; range 2.5 - 3.5 Atrial Fibrillation Goal INR 2.5; range 2.0 - 3.0 Ischemic Stroke Goal INR 2.5; range 2.0 - 3.0 For additional information see Guidelines for Anticoagulation available from the pharmacy [facility] [phone] Blood specimen (specimen) 06/09/2008 4:58 AM CDT 06/09/2008 5:24 AM CDT us Moiz Barros MD HEMATOLOGY ORDERABLES Fi nal Result INTERFACE SYSTEM Refer to clinic/hospital department [facility] CLIA# [id number] [address] [place] [address] * (ABNORMAL) PROTIME-INR (06/08/2008 4:50 AM CDT) INR 1.5 [facility] Comment: Expected Values for INR: DVT/PE Goal INR 2.5; range 2.0 - 3.0 Valve Replacement Tissue Goal INR 2.5; range 2.0 - 3.0 Mechanical Goal INR 3.0; range 2.5 - 3.5 POST-CA Goal INR 2.5; range 2.0 - 3.0 or Goal 3.0; range 2.5 - 3.5 Atrial Fibrillation Goal INR 2.5; range 2.0 - 3.0 Ischemic Stroke Goal INR 2.5; range 2.0 - 3.0 For additional information see Guidelines for Anticoagulation available from the pharmacy Kend[facility] Gonzalez [phone] PROTIME 20.0(H) 12.8 - 15.8 Secs [facility] Comment:As of 2007 not e change in normal range. Blood specimen (specimen) 06/08/2008 4:50 AM CDT 06/08/2008 5:18 AM CDT us Moiz Barros MD HEMATOLOGY ORDERABLES Fi nal Result INTERFACE SYSTEM Refer to clinic/hospital department [facility] CLIA# [id number] [address] [place] [address] * (ABNORMAL) CBC WITH DIFFERENTIAL (06/07/2008 5:35 AM CDT) NEUTROPHIL ABSOLUTE 10.9(H) 2.0 - 8.0 K/ul [facility] HEMATOCRIT 40.7(L) 41.0 - 53.0 % [facility] PLATELETS 188 140 - 440 K/ul [facility] EOSINOPHIL ABSOLUTE 0.1 0.0 - 0.7 K/ul [facility] EOSINOPHILS 0.7 0.0 - 7.0 % [facility] RBC 4.15(L) 4.60 - 6.20 Mil/ul [facility] MCHC 32.9 30.0 - 35.0 g/dL [facility] LYMPHOCYTE ABSOLUTE 1.7 1.2 - 4.0 K/ul [facility] LYMPHOCYTES 11.5(L) 24.0 - 44.0 % [facility] MCV 98.1 84.0 - 103.0 Fl [facility] BASOPHILS 0.2 0.0 - 1.0 % [facility] MPV 10.4 8.9 - 12.8 Fl [facility] BASOPHILS ABSOLUTE 0.0 0.0 - 0.2 K/ul [facility] HEMOGLOBIN 13.4(L) 14.0 - 18.0 g/dL [facility] RDW 14.0 11.0 - 14.5 % [facility] MONOCYTES 11.5(H) 2.0 - 10.0 % [facility] MONOCYTE ABSOLUTE 1.7(H) 0.1 - 0.6 K/ul [facility] WBC 14.4(H) 4.8 - 10.8 K/ul [facility] MCH 32.3 27.0 - 34.0 pg [facility] NEUTROPHILS 76.1(H) 42.2 - 75.2 % [facility] Blood specimen (specimen) 06/07/2008 5:35 AM CDT 06/07/2008 5:47 AM CDT us Moiz Barros MD HEMATOLOGY ORDERABLES Fi nal Result INTERFACE SYSTEM Refer to clinic/hospital department [facility]# [id number] [address] [place] [address] * (ABNORMAL) PROTIME-INR (06/07/2008 5:35 AM CDT) PROTIME 18.6(H) 12.8 - 15.8 Secs [facility] Comment:As of 2007 not e change in normal range. INR 1.4 [facility] Comment: Expected Values for INR: DVT/PE Goal INR 2.5; range 2.0 - 3.0 Valve Replacement Tissue Goal INR 2.5; range 2.0 - 3.0 Mechanical Goal INR 3.0; range 2.5 - 3.5 POST-CA Goal INR 2.5; range 2.0 - 3.0 or Goal 3.0; range 2.5 - 3.5 Atrial Fibrillation Goal INR 2.5; range 2.0 - 3.0 Ischemic Stroke Goal INR 2.5; range 2.0 - 3.0 For additional information see Guidelines for Anticoagulation available from the pharmacy [facility] [phone] Blood specimen (specimen) 06/07/2008 5:35 AM CDT 06/07/2008 5:47 AM CDT us Yusef Malagon MD HEMATOLOGY ORDERABLES Final Re sult INTERFACE SYSTEM Refer to clinic/hospital department [facility] CLIA# [id number] [address] [place] [address] * (ABNORMAL) PROTIME-INR (06/06/2008 5:32 AM CDT) PROTIME 16.3(H) 12.8 - 15.8 Secs [facility] Comment:As of 2007 not e change in normal range. INR 1.2 [facility] Comment: Expected Values for INR: DVT/PE Goal INR 2.5; range 2.0 - 3.0 Valve Replacement Tissue Goal INR 2.5; range 2.0 - 3.0 Mechanical Goal INR 3.0; range 2.5 - 3.5 POST-CA Goal INR 2.5; range 2.0 - 3.0 or Goal 3.0; range 2.5 - 3.5 Atrial Fibrillation Goal INR 2.5; range 2.0 - 3.0 Ischemic Stroke Goal INR 2.5; range 2.0 - 3.0 For additional information see Guidelines for Anticoagulation available from the pharmacy [facility] [phone] Blood specimen (specimen) 06/06/2008 5:32 AM CDT 06/06/2008 5:54 AM CDT us Yusef Malagon MD HEMATOLOGY ORDERABLES Final Re sult INTERFACE SYSTEM Refer to clinic/hospital department [facility] CLIA# [id number] [address] [place] [address] * (ABNORMAL) CBC WITH DIFFERENTIAL (06/06/2008 5:32 AM CDT) BASOPHILS 0.3 0.0 - 1.0 % [facility] BASOPHILS ABSOLUTE 0.0 0.0 - 0.2 K/ul [facility] HEMATOCRIT 40.4(L) 41.0 - 53.0 % [facility] PLATELETS 217 140 - 440 K/ul [facility] MONOCYTES 11.3(H) 2.0 - 10.0 % [facility] MONOCYTE ABSOLUTE 1.4(H) 0.1 - 0.6 K/ul [facility] RBC 4.12(L) 4.60 - 6.20 Mil/ul [facility] MCHC 32.7 30.0 - 35.0 g/dL [facility] NEUTROPHIL ABSOLUTE 9.3(H) 2.0 - 8.0 K/ul [facility] MCV 98.1 84.0 - 103.0 Fl [facility] MPV 10.9 8.9 - 12.8 Fl [facility] EOSINOPHIL ABSOLUTE 0.1 0.0 - 0.7 K/ul [facility] EOSINOPHILS 0.6 0.0 - 7.0 % [facility] HEMOGLOBIN 13.2(L) 14.0 - 18.0 g/dL [facility] RDW 13.8 11.0 - 14.5 % [facility] LYMPHOCYTE ABSOLUTE 1.7 1.2 - 4.0 K/ul [facility] LYMPHOCYTES 13.7(L) 24.0 - 44.0 % [facility] WBC 12.5(H) 4.8 - 10.8 K/ul [facility] NEUTROPHILS 74.1 42.2 - 75.2 % [facility] MCH 32.0 27.0 - 34.0 pg [facility] Blood specimen (specimen) 06/06/2008 5:32 AM CDT 06/06/2008 5:56 AM CDT us Yusef Malagon MD HEMATOLOGY ORDERABLES Final Re sult Performing Organization Address [facility] Phone Number INTERFACE SYSTEM Refer to clinic/hospital department [facility] CLIA# [id number] [address] [place] [address] * (ABNORMAL) BASIC METABOLIC PANEL (06/06/2008 5:32 AM CDT) [facility] SODIUM 137 136 - 145 mEq/L [facility] ANION GAP 9 9 - 20 mEq/L [facility] BUN 13 9 - 20 mg/dL [facility] CO2 26 22 - 32 mmol/l [facility] OSMOLALITY, CALCULATED 283 275 - 295 mOsm/Kg [facility] POTASSIUM 3.7 3.5 - 5.0 mEq/L [facility] CREATININE 0.8 0.7 - 1.5 mg/dL [facility] CALCIUM 8.9 8.4 - 10.5 mg/dL [facility] GLUCOSE 122(H) 70 - 110 mg/dL [facility] CHLORIDE 106 95 - 110 mEq/L [facility] Blood specimen (specimen) 06/06/2008 5:32 AM CDT 06/06/2008 5:56 AM CDT us Yusef Malagon MD CHEMISTRY ORDERABLES Final Res ult Performing Organization Address [facility] de Phone Number INTERFACE SYSTEM Refer to [facility] CLIA# [id number] [address] [place] [address] * (ABNORMAL) POC GLUCOSE (06/05/2008 3:01 PM CDT) GLUCOSE POC 115(H) 60 - 100 mg/dL [facility] Venous blood specimen (specimen) 06/05/2008 3:01 PM CDT 06/05/2008 4:38 PM CDT us Yusef Malagon MD POINT OF CARE TESTING Final Re sult INTERFACE SYSTEM Refer to clinic/hospital department [facility] CLIA# [id number] [address] [place] [address] * XR KNEE 1 OR 2 VW [...] GLUCOSE POC 94 60 - 100 mg/dL [facility] Venous blood specimen (specimen) 06/05/2008 11:08 AM CDT 06/06/2008 7:27 AM CDT us Yusef Malagon MD POINT OF CARE TESTING Final Re sult Performing Organization Address [facility] Co de Phone Number INTERFACE SYSTEM Refer to clinic/hospital department [facility] CLIA# [id number] [address] [place] [address] * TYPE AND CROSSMATCH (06/05/2008 6:35 AM CDT) Pathologist [facility] BLOOD BANK PRODUCT INTERFACE SYSTEM Blood specimen (specimen) 06/05/2008 6:35 AM CDT 06/05/2008 6:35 AM CDT us Yusef Malagon MD BLOOD BANK ORDERABLES Final Re sult Performing Organization Address [facility] de Phone Number INTERFACE SYSTEM Refer to clinic/hospital department documented in this encounter Visit Diagnoses Not on filedocumented in this encounter Care Teams Human Resources Benefits Assistant Relationship Specialty Start Date End Date Roshan Jimenez DO NO ADDRESS ON FILE PCP - General 03/26/03 documented as of this encounter
--- OUTSIDE RECORDS SUMMARY | 2025-05-03 23:07 | XMS_ITS | Encounter Summary ---
Author Organization [facility] Address [address] [place] [address] Care Team Providers Care Mathematics Professor Name Role Phone Roshan Jimenez DO Primary Care Provider Unav ailable Encounter Details Date Type Department Care Team (Latest Contact Info) Description 01/06/1999 Outpatient Historical [facility] Podiatry-[facility]vo [place] [address] [place] [address] Noé Rosa, DPM [address] [place] [address] Ingrowing nail (Primary Dx) Social History Tobacco Use Types Packs/Day Years Used Date Smoking Tobacco: Never Assessed Sex and Gender Information Value Date Recorded Sex Assigned at Not on file 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
--- OUTSIDE RECORDS SUMMARY | 2025-05-03 23:07 | XMS_ITS | Encounter Summary ---
Author Organization [facility] Address [address] [place] [address] Care Team Providers Care Scaffolding Helper Name Role Phone Roshan Jimenez DO Primary Care Provider Unav ailable Encounter Details Date Type Department Care Team (Latest Contact Info) Description 02/17/2006 Outpatient [facility] [address] [place] [address] Roshan Jimenez DO NO ADDRESS ON FILE Viral Infection (Primary Dx); Unspecified Essential Hypertension; Unspecified Chronic Bronchitis (CMS/HCC); Impacted Cerumen Social History Tobacco Use Types Packs/Day Years Used Date Smoking Tobacco: Never Assessed Sex and Gender Information Value Date Recorded Sex Assigned at Not on file 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 Male 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
--- OUTSIDE RECORDS SUMMARY | 2025-05-03 23:07 | XMS_ITS | Encounter Summary ---
Author Organization [facility] Address [address] [place] [address] Care Team Providers Care Leather Novelty Parts Cutter Name Role Phone Roshan Jimenez DO Primary Care Provider Unav ailable Encounter Details Date Type Department Care Team (Latest Contact Info) Description 07/15/2002 Outpatient [facility] [address] [place] [address] Roshan Jimenez DO NO ADDRESS ON FILE OBSTR CHR BRONCHITIS W AC EXACERB (CMS/HCC) (Primary Dx); HYPERTENSION NOS Social History Tobacco Use Types Packs/Day Years Used Date Smoking Tobacco: Never Assessed Sex and Gender Information Value Date Recorded Sex Assigned at Not on file 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
--- OUTSIDE RECORDS SUMMARY | 2025-05-03 23:07 | XMS_ITS | Encounter Summary ---
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
--- OUTSIDE RECORDS SUMMARY | 2025-05-03 23:07 | XMS_ITS | Encounter Summary ---
Author Organization [facility] Address [address] [place] [address] Care Team Providers Care Assembler Golf Wood Head Name Role Phone Roshan Jimenez DO Primary Care Provider Unav ailable Encounter Details Date Type Department Care Team (Latest Contact Info) Description 12/23/1999 Outpatient [facility] [address] [place] [address] Roshan Jimenez DO NO ADDRESS ON FILE Unspecified essential hypertension (Primary Dx); Allergic rhinitis, cause unspecified; Chronic airway obstruction, not elsewhere classified (CMS/HCC); Obesity, unspecified Social History Tobacco Use Types Packs/Day Years Used Date Smoking Tobacco: Never Assessed Sex and Gender Information Value Date Recorded Sex Assigned at Not on file 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
--- OUTSIDE RECORDS SUMMARY | 2025-05-03 23:07 | XMS_ITS | Encounter Summary ---
Author Organization [facility] Address [address] [place] [address] Care Team Providers Care Sporting Goods Sales Manager Name Role Phone Roshan Jimenez DO Primary Care Provider Unav ailable Encounter Details Date Type Department Care Team (Latest Contact Info) Description 04/13/1998 Outpatient [facility] [address] [place] [address] Roshan Jimenez DO NO ADDRESS ON FILE Obstructive chronic bronchitis with exacerbation (CMS/HCC) (Primary Dx); Malaise and fatigue; Tobacco use disorder; Unspecified essential hypertension; Acute bronchitis Social History Tobacco Use Types Packs/Day Years Used Date Smoking Tobacco: Never Assessed Sex and Gender Information Value Date Recorded Sex Assigned at Not on file 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
--- OUTSIDE RECORDS SUMMARY | 2025-05-03 23:07 | XMS_ITS | Encounter Summary ---
Author Organization [facility] Address [address] [place] [address] Care Team Providers Care Supervisor Toy Assembly Name Role Phone Roshan Jimenez DO Primary Care Provider Unav ailable Encounter Details Date Type Department Care Team (Latest Contact Info) Description 02/20/2007 Outpatient [facility] [address] [place] [address] Roshan Jimenez DO NO ADDRESS ON FILE Chronic Airway Obstruction, not Elsewhere Classified (CMS/HCC) (Primary Dx); Unspecified Asthma; Obesity, Unspecified; Tobacco Use Disorder Social History Tobacco Use Types Packs/Day Years Used Date Smoking Tobacco: Never Assessed Sex and Gender Information Value Date Recorded Sex Assigned at Not on file 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
--- OUTSIDE RECORDS SUMMARY | 2025-05-03 23:07 | XMS_ITS | Encounter Summary ---
Author Organization [facility] Address [address] [place] [address] Care Team Providers Care Truck Farmer Name Role Phone Roshan Jimenez DO Primary Care Provider Unav ailable Encounter Details Date Type Department Care Team (Latest Contact Info) Description 06/23/1999 Outpatient [facility] [address] [place] [address] Roshan Jimenez DO NO ADDRESS ON FILE Unspecified essential hypertension (Primary Dx); Reflux esophagitis; Obesity, unspecified; Chronic airway obstruction, not elsewhere classified (CMS/HCC) Social History Tobacco Use Types Packs/Day Years Used Date Smoking Tobacco: Never Assessed Sex and Gender Information Value Date Recorded Sex Assigned at Not on file 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 Sex Male 4:59 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
--- OUTSIDE RECORDS SUMMARY | 2025-05-03 23:07 | XMS_ITS | Encounter Summary ---
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
--- OUTSIDE RECORDS SUMMARY | 2025-05-03 23:07 | XMS_ITS | Encounter Summary ---
Author Organization [facility] Address [address] [place] [address] Care Team Providers Care Receipt And Report Clerk Name Role Phone Roshan Jimenez DO Primary Care Provider Unav ailable Encounter Details Date Type Department Care Team (Latest Contact Info) Description 05/20/1998 Outpatient [facility] [address] [place] [address] Roshan Jimenez DO NO ADDRESS ON FILE Unspecified essential hypertension (Primary Dx); Obstructive chronic bronchitis without exacerbation (CMS/HCC); Depressive type psychosis; Abdominal pain, unspecified site Social History Tobacco Use Types Packs/Day Years Used Date Smoking Tobacco: Never Assessed Sex and Gender Information Value Date Recorded Sex Assigned at Not on file 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 Male 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
--- OUTSIDE RECORDS SUMMARY | 2025-05-03 23:07 | XMS_ITS | Encounter Summary ---
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
--- OUTSIDE RECORDS SUMMARY | 2025-05-03 23:07 | XMS_ITS | Encounter Summary ---
Author Organization [facility] Address [address] [place] [address] Care Team Providers Care Director Of Volunteer Services Name Role Phone Roshan Jimenez DO Primary Care Provider Unav ailable Encounter Details Date Type Department Care Team (Latest Contact Info) Description 12/23/1998 Outpatient Historical [facility] Axel Armstrong NO ADDRESS ON FILE Localized osteoarthrosis not specified whether primary or secondary, lower leg (Primary Dx) Social History Tobacco Use Types Packs/Day Years Used Date Smoking Tobacco: Never Assessed Sex and Gender Information Value Date Recorded Sex Assigned at Not on file 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
--- OUTSIDE RECORDS SUMMARY | 2025-05-03 23:07 | XMS_ITS | Encounter Summary ---
Author Organization [facility] Address [address] [place] [address] Care Team Providers Care Architectural Inspector Name Role Phone Roshan Jimenez DO Primary Care Provider Unav ailable Encounter Details Date Type Department Care Team (Latest Contact Info) Description 01/08/1999 Outpatient Historical [facility] Podiatry-Stevo Bal [place] [address] [place] [address] Noé Rosa, DPM [address] [place] [address] Ingrowing nail (Primary Dx) Social History Tobacco Use Types Packs/Day Years Used Date Smoking Tobacco: Never Assessed Sex and Gender Information Value Date Recorded Sex Assigned at Not on file Legal Sex Male 4:59 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
--- OUTSIDE RECORDS SUMMARY | 2025-05-03 23:07 | XMS_ITS | Encounter Summary ---
Author Organization [facility] Address [address] [place] [address] Care Team Providers Care Supervisor Refining Name Role Phone Roshan Jimenez DO Primary Care Provider Unav ailable Encounter Details Date Type Department Care Team (Latest Contact Info) Description 05/17/2000 Outpatient Historical [facility] [address] [place] [address] [place] [id number] Merlin Reilly MD NO ADDRESS ON FILE Hypersomnia with sleep apnea, unspecified (Primary Dx) Social History Tobacco Use Types Packs/Day Years Used Date Smoking Tobacco: Never Assessed Sex and Gender Information Value Date Recorded Sex Assigned at Not on file 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
--- OUTSIDE RECORDS SUMMARY | 2025-05-03 23:07 | XMS_ITS | Encounter Summary ---
Author Organization [facility] Address [address] [place] [address] Care Team Providers Care A And P Technician Name Role Phone Roshan Jimenez DO Primary Care Provider Unav ailable Encounter Details Date Type Department Care Team (Latest Contact Info) Description 07/13/2005 Outpatient [facility] [address] [place] [id number] Roshan Jimenez DO NO ADDRESS ON FILE ASTHMA UNSPECIFIED (Primary Dx); CHRONIC AIRWAY OBSTRUCTION NEC (CMS/[facility]); OBESITY NOS; VACCINE FOR STREP PNEUMONIAE Social History Tobacco Use Types Packs/Day Years Used Date Smoking Tobacco: Never Assessed Sex and Gender Information Value Date Recorded Sex Assigned at Not on file 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
--- OUTSIDE RECORDS SUMMARY | 2025-05-03 23:07 | XMS_ITS | Encounter Summary ---
Author Organization [facility] Address [address] [place] [address] Care Team Providers Care Finisher Hot Strip Name Role Phone Roshan Jimenez DO Primary Care Provider Unav ailable Encounter Details Date Type Department Care Team (Latest Contact Info) Description 11/30/2006 Outpatient Historical [facility] N[facility] [address] [place] 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
--- OUTSIDE RECORDS SUMMARY | 2025-05-03 23:07 | XMS_ITS | Encounter Summary ---
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
--- OUTSIDE RECORDS SUMMARY | 2025-05-03 23:07 | XMS_ITS | Encounter Summary ---
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
--- OUTSIDE RECORDS SUMMARY | 2025-05-03 23:07 | XMS_ITS | Encounter Summary ---
Author Organization [employer] Address [address] [facility] Attn: [place] [address] Care Team Providers Care Death Claim Clerk Name Role Phone Roshan Jimenez DO Primary Care Provider Unav ailable Encounter Details Date Type Department Care Team (Latest Contact Info) Description 12/06/2000 Emergency Jose Galarza DO [address] [place] [address] Social History Tobacco Use Types Packs/Day Years Used Date Smoking Tobacco: Never Assessed Sex and Gender Information Value Date Recorded Sex Assigned at Not on file Legal Sex Male 4:59 AM TWIST PACKER Gender Identity Not on file Sexual Orientation Not on file documented as of this encounter Plan of Treatment Not on file documented as of this encounter Visit Diagnoses Not on filedocumented in this encounter Care Teams Death Claim Clerk Relationship Specialty Start Date End Date Roshan Jimenez DO NO ADDRESS ON FILE PCP - General 03/26/03 documented as of this encounter
--- OUTSIDE RECORDS SUMMARY | 2025-05-03 23:07 | XMS_ITS | Encounter Summary ---
Author Organization [facility] Address [address] [place] [address] Care Team Providers Care Leather Fitter Name Role Phone Roshan Jimenez DO Primary Care Provider Unav ailable Encounter Details Date Type Department Care Team (Latest Contact Info) Description 09/17/1998 Outpatient [facility] [address] [place] [address] Roshan Jimenez DO NO ADDRESS ON FILE Unspecified essential hypertension (Primary Dx); Obesity, unspecified; Obstructive chronic bronchitis without exacerbation (CMS/HCC); Reflux esophagitis Social History Tobacco Use Types Packs/Day Years Used Date Smoking Tobacco: Never Assessed Sex and Gender Information Value Date Recorded Sex Assigned at Not on file 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 Male 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
--- OUTSIDE RECORDS SUMMARY | 2025-05-03 23:07 | XMS_ITS | Encounter Summary ---
Author Organization [facility] Address [address] [place] [address] Care Team Providers Care Barback Name Role Phone Roshan Jimenez DO Primary Care Provider Unav ailable Encounter Details Date Type Department Care Team (Latest Contact Info) Description 12/23/1998 Outpatient Historical [facility] [address] [place] [address] Roshan Jimenez DO NO ADDRESS ON FILE Chronic airway obstruction, not elsewhere classified (CMS/HCC) (Primary Dx); Unspecified essential hypertension; Osteoarthrosis, unspecified whether generalized or localized, unspecified site Social History Tobacco Use Types Packs/Day Years Used Date Smoking Tobacco: Never Assessed Sex and Gender Information Value Date Recorded Sex Assigned at Not on file 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 Gender Identity Not on file Sexual Orientation Not on file documented as of this encounter Plan of Treatment Not on file documented as of this encounter Visit Diagnoses Diagnosis Chronic airway obstruction, not elsewhere classified (CMS/HCC)- Primary Chronic airway obstruction, not elsewhere classified Unspecified essential hypertension Osteoarthrosis, unspecified whether generalized or localized, unspecified site documented in this encounter Care Teams Barback Relationship Specialty Start Date End Date Roshan Jimenez DO NO ADDRESS ON FILE PCP - General 03/26/03 documented as of this encounter
--- OUTSIDE RECORDS SUMMARY | 2025-05-03 23:07 | XMS_ITS | Encounter Summary ---
Author Organization [facility] Address [address] [place] [address] Care Team Providers Care Blockman Name Role Phone Roshan Jimenez DO Primary Care Provider Unav ailable Encounter Details Date Type Department Care Team (Latest Contact Info) Description 04/20/1998 Outpatient [facility] [address] [place] [address] Roshan Jimenez DO NO ADDRESS ON FILE Acute bronchitis (Primary Dx); Obstructive chronic bronchitis with exacerbation (CMS/HCC); Tobacco use disorder; Edema Social History Tobacco Use Types Packs/Day Years Used Date Smoking Tobacco: Never Assessed Sex and Gender Information Value Date Recorded Sex Assigned at Not on file 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
--- OUTSIDE RECORDS SUMMARY | 2025-05-03 23:07 | XMS_ITS | Encounter Summary ---
Author Organization [facility] Address [address] [place] [address] Care Team Providers Care Breaker Off Name Role Phone Roshan Jimenez DO Primary Care Provider Unav ailable Encounter Details Date Type Department Care Team (Latest Contact Info) Description 11/01/2006 Outpatient Historical [facility] [address] [place] [address] John Black MD NO ADDRESS ON FILE Pre-Operative Cardiovascular Examination (Primary Dx) Social History Tobacco Use Types Packs/Day Years Used Date Smoking Tobacco: Never Assessed Sex and Gender Information Value Date Recorded Sex Assigned at Not on file 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 Sex 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 Gender Identity Not on file Sexual Orientation Not on file documented as of this encounter Plan of Treatment Not on file documented as of this encounter Procedures Procedure Name Priority Date/Time Associated Diagnosis Comments COMPREHENSIVE METABOLIC PANEL Routine 11/01/2006 10:35 AM BLOOD BANK LABORATORY TECHNOLOGIST XR CHEST PA OR AP 1 VW Routine 7 10:09 AM BLOOD BANK LABORATORY TECHNOLOGIST documented in this encounter Results * (ABNORMAL) COMPREHENSIVE METABOLIC PANEL (11/01/2006 10:35 AM BLOOD BANK LABORATORY TECHNOLOGIST) GLUCOSE 99 70 - 110 mg/dL INTERFACE [...] mOsm/Kg INTERFACE SYSTEM 11/01/2006 10:3 5 AM BLOOD BANK LABORATORY TECHNOLOGIST John Black MD CHEMISTRY ORDERABLES Edited INTERFACE SYSTEM Refer to clinic/hospital department * XR CHEST PA OR AP (11/01/2006 10:09 AM BLOOD BANK LABORATORY TECHNOLOGIST) Anatomical Region Laterality Modality Chest Other 11/01/2006 10:0 9 AM BLOOD BANK LABORATORY TECHNOLOGIST Narrative 11/01/2006 10:09 AM BLOOD BANK LABORATORY TECHNOLOGIST PA CHEST: 11/01/2006Chronic appearing accentuated bronchovascular markings of the parahilar regions. Cardiac silhouettewithin normal limits. IMPRESSION: No apparent acute disease. - Dictated By: Gevoanna Sheriff M.D. Electronically Signed By: Geovanna Sheriff [...] Primary documented in this encounter Care Teams Breaker Off Relationship Specialty Start Date End Date Roshan Jimenez DO NO ADDRESS ON FILE PCP - General 03/26/03 documented as of this encounter
--- OUTSIDE RECORDS SUMMARY | 2025-05-03 23:07 | XMS_ITS | Encounter Summary ---
Author Organization [facility] Address [address] [place] [address] Care Team Providers Care Human Factors Specialist Name Role Phone Roshan Jimenez DO Primary Care Provider Unav ailable Encounter Details Date Type Department Care Team (Latest Contact Info) Description 07/31/2001 Outpatient [facility] [address] [place] [address] Roshan Jimenez DO NO ADDRESS ON FILE HYPERTENSION NOS (Primary Dx); VACCINE FOR INFLUENZA Social History Tobacco Use Types Packs/Day Years Used Date Smoking Tobacco: Never Assessed Sex and Gender Information Value Date Recorded Sex Assigned at Not on file 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
--- OUTSIDE RECORDS SUMMARY | 2025-05-03 23:07 | XMS_ITS | Encounter Summary ---
Author Organization [facility] Address [address] [place] [address] Care Team Providers Care Database Software Technician Name Role Phone Roshan Jimenez DO Primary Care Provider Unav ailable Encounter Details Date Type Department Care Team (Latest Contact Info) Description 05/30/2002 Outpatient [facility] [address] [place] [address] Roshan Jimenez DO NO ADDRESS ON FILE CHRONIC AIRWAY OBSTRUCTION NEC (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)- Primary Chronic airway obstruction, not elsewhere classified Obesity, unspecified Lumbago Need vaccination-viral disease Need for prophylactic vaccination and inoculation against other viral diseases documented in this encounter Care Teams Database Software Technician Relationship Specialty Start Date End Date Roshan Jimenez DO NO ADDRESS ON FILE PCP - General 03/26/03 documented as of this encounter
--- OUTSIDE RECORDS SUMMARY | 2025-05-03 23:07 | XMS_ITS | Encounter Summary ---
Author Organization [facility] Address [address] [place] [address] Care Team Providers Care Yard Worker Name Role Phone Roshan Jimenez DO Primary Care Provider Unav ailable Encounter Details Date Type Department Care Team (Latest Contact Info) Description 04/18/2006 Outpatient [facility] [address] [place] [address] Roshan Jimenez DO NO ADDRESS ON FILE Depressive Disorder, not Elsewhere Classified (Primary Dx); Anxiety State, Unspecified; Unspecified Essential Hypertension Social History Tobacco Use Types Packs/Day Years Used Date Smoking Tobacco: Never Assessed Sex and Gender Information Value Date Recorded Sex Assigned at Not on file 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
--- OUTSIDE RECORDS SUMMARY | 2025-05-03 23:07 | XMS_ITS | Encounter Summary ---
Author Organization [facility] Address [address] [place] [address] Care Team Providers Care Drainman Name Role Phone Roshan Jimenez DO Primary Care Provider Unav ailable Encounter Details Date Type Department Care Team (Latest Contact Info) Description 02/12/2001 Outpatient [facility] [address] [place] [address] Roshan Jimenez DO NO ADDRESS ON FILE Unspecified asthma(493.90) (Primary Dx); Chronic airway obstruction, not elsewhere classified (CMS/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
--- OUTSIDE RECORDS SUMMARY | 2025-05-03 23:07 | XMS_ITS | Encounter Summary ---
Author Organization [facility] Address [address] [place] [address] Care Team Providers Care Mounter Hand Name Role Phone Roshan Jimenez DO Primary Care Provider Unav ailable Encounter Details Date Type Department Care Team (Latest Contact Info) Description 11/16/2006 Outpatient Historical [facility] 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
--- OUTSIDE RECORDS SUMMARY | 2025-05-03 23:07 | XMS_ITS | Encounter Summary ---
Author Organization [facility] Address [address] [place] [address] Care Team Providers Care Supervisor/Port Director Name Role Phone Roshan Jimenez DO Primary Care Provider Unav ailable Encounter Details Date Type Department Care Team (Latest Contact Info) Description 07/17/2006 Outpatient [facility] [address] [place] [address] Roshan Jimenez DO NO ADDRESS ON FILE Unspecified Essential Hypertension (Primary Dx); Unspecified Asthma; Depressive Disorder, not Elsewhere Classified Social History Tobacco Use Types Packs/Day Years Used Date Smoking Tobacco: Never Assessed Sex and Gender Information Value Date Recorded Sex Assigned at Not on file 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
--- OUTSIDE RECORDS SUMMARY | 2025-05-03 23:07 | XMS_ITS | Encounter Summary ---
Author Organization [facility] Address [address] [place] [address] Care Team Providers Care Tube Cutter Name Role Phone Roshan Jimenez DO Primary Care Provider Unav ailable Encounter Details Date Type Department Care Team (Latest Contact Info) Description 12/08/2000 Outpatient [facility] [address] [place] [id number] Roshan Jimenez DO NO ADDRESS ON FILE Anxiety state, unspecified (Primary Dx); Depressive disorder, not elsewhere classified; Acute bronchitis; Chronic airway obstruction, not elsewhere classified (CMS/HCC) Social History Tobacco Use Types Packs/Day Years Used Date Smoking Tobacco: Never Assessed Sex and Gender Information Value Date Recorded Sex Assigned at Not on file 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
--- OUTSIDE RECORDS SUMMARY | 2025-05-03 23:07 | XMS_ITS | Encounter Summary ---
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
--- OUTSIDE RECORDS SUMMARY | 2025-05-03 23:07 | XMS_ITS | Encounter Summary ---
Author Organization [facility] Address [address] [place] [address] Care Team Providers Care Blankmaker Name Role Phone Roshan Jimenez DO Primary Care Provider Unav ailable Encounter Details Date Type Department Care Team (Latest Contact Info) Description 05/23/2000 Outpatient Historical [facility] [address] [place] [address] Irineo Snyder MD NO ADDRESS ON FILE Hidradenitis (Primary Dx); Benign miguel skin trunk Social History Tobacco Use Types Packs/Day Years Used Date Smoking Tobacco: Never Assessed Sex and Gender Information Value Date Recorded Sex Assigned at Not on file 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
--- OUTSIDE RECORDS SUMMARY | 2025-05-03 23:07 | XMS_ITS | Clinical Summary ---
Author Organization [facility] Stevo melo [place] Address [address] [place] [address] Phone Care Team Providers Care Hospital Fellow Name Role Phone Unavailable Primary Care Provider Unavailabl e Allergies Active Allergy Reactions Criticality Noted Date Comments Broccoli Nausea and Vomiting Low 02/14/2025 Per [facility] paperwork Medications fluticasone-umec lidinium-vilante rol (Trelegy Ellipta) 200-62.5-25 mcg Disk with DeviceIndication s:COPD with exacerbation (CMS/HCC) Take 1 Puff by inhalation daily. 60 Each 11 4 Active gabapentin (NEURONTIN) 300 mg capsuleIndicatio ns:Neuroforamina l stenosis of lumbar spine,Acute bilateral low back pain with sciatica, sciatica laterality unspecified Take 1 Capsule (300 mg) by mouth 2 times daily. 120 Capsule 5 4 Active spironolactone (ALDACTONE) 50 mg tablet Take 1 Tablet (50 mg) by mouth daily. 30 Tablet 5 4 Active loperamide (IMODIUM) 2 mg capsule Take 1 Capsule (2 mg) by mouth 4 times daily as needed for Diarrhea/Loose Stools. 30 Capsule 4 Active multivitamin with folic acid 400 mcg Tablet tablet Take 1 Tablet by mouth daily. 30 Tablet 4 Active magnesium hydroxide (MILK OF MAGNESIA) 400 [...] ns:Asthma with chronic obstructive pulmonary disease (COPD) ([facility]) TAKE 2 PUFFS BY INHALATION EVERY 4 HOURS NEEDED FOR RESPIRATION. 17 Gram 4 Active polyethylene glycol (MIRALAX) 17 gram Powder in Packet Take by mouth 1 time daily as needed for Constipation. Active ergocalciferol (VITAMIN D2) 50,000 unit capsule Take 50,000 Units by mouth every 30 days. Active MELATONIN ORAL Take 6 mg by mouth 1 time daily as needed. Active triamcinolone acetonide (KENALOG) 0.5 % CreamIndications :Stasis dermatitis Apply to affected area 2 times daily. 15 Gram 2 5 Active albuterol (PROVENTIL,DANIEL EVARISTO) 2.5 mg /3 mL (0.083 %) Solution for Nebulization Take 3 mL (2.5 mg) by inhalation every 8 hours as needed for Shortness of Breath. 5 Active atorvastatin (LIPITOR) 40 mg tablet Take 1 Tablet (40 mg) by mouth daily at bedtime. 5 Active FLUoxetine (PROzac) 40 mg capsule Take 1 Capsule (40 mg) by mouth daily. Take 20 mg with a 10 mg daily 5 Active levothyroxine 25 mcg tablet Take 1 Tablet (25 mcg) by mouth daily in the morning. 5 Active metoprolol succinate (TOPROL XL) 25 mg Extended Release 24 hour tablet Take 1 Tablet (25 mg) by mouth daily. 5 Active nitroglycerin (NITROSTAT) 0.4 mg Tablet, Sublingual Place 1 Tablet (0.4 mg) under tongue every 5 minutes as needed for Chest Pain (Not to exceed 3 doses, notify physician if chest pain not relieved, hold if systolic BP less than or equal to 90 mmHg). 5 Active pantoprazole (PROTONIX) 40 mg Tablet, Delayed Release (E.C.) Take 1 Tablet (40 mg) by mouth daily before breakfast. Active potassium CHLORIDE (KLOR-CON) 10 mEq Extended Release tablet Take 1 Tablet (10 mEq) by mouth 2 times daily with meals. Active Additional Information Patient taking differently: 20 mEqOral TWO TIMES DAILY WITH MEALS, Reported on 04/01/2025 sennosides-docus ate sodium (SENNA-S) 8.6-50 mg tablet Take 1 Tablet by mouth 2 times daily as needed for Constipation. Active clopidogreL (PLAVIX) 75 mg Tablet Take 1 Tablet (75 mg) by mouth daily. Active bumetanide (BUMEX) 1 mg tablet Take 1 mg by mouth daily at bedtime. Active oxyCODONE-acetam inophen (PERCOCET) 10-325 mg Tablet Take 1 Tablet [...] daily in the morning. 100 Tablet 3 Active Active Problems Problem Noted Date Diagnosed [...] Encounters Date Type Department Care Team Description 05/01/2025 Orders Only [facility] Gastroenterology - [place] [address] [facility] [address] [place] [address] Tiago Ryan MD Irritable bowel syndrome with diarrhea (Primary Dx); Chronic diarrhea 04/05/2025 2:15 PM CDT - 04/05/2025 11:59 PM CDT Hospital Encounter [facility] Emergency Medical [facility] [address] [place] [phone] Ambulance, [facility] Discharge Disposition: [facility] 04/01/2025 10:00 AM CDT Office Visit [facility] [address] [facility] [address] [place] [address] Dane Sierra MD Farmer, Sarah, FNP History of ST elevation myocardial infarction (STEMI) (Primary Dx); Benign hypertension; Paroxysmal atrial fibrillation with rapid ventricular response (CMS/HCC); Mixed hyperlipidemia; Ischemic dilated cardiomyopathy (CMS/HCC); Other iron deficiency anemia 03/27/2025 12:25 AM CDT - 03/27/2025 11:59 PM CDT Hospital Encounter [facility] Emergency Medical Services [facility] [address] [place] [phone] Ambulance, [facility] Jean-Pierre Pappas MD Discharge Disposition: Intermediate Care Facility 03/26/2025 9:54 AM CDT Anesthesia Event [facility] End[facility] [address] [place] [address] Grzegorz Arteaga MD Bell, Leslie, CRNA 03/26/2025 9:20 AM CDT - 03/26/2025 9:40 AM CDT Surgery [facility] [address] [place] [address] Tiago Ryan MD ESOPHAGOGASTRODUODENOSCOPY 03/25/2025 External Device Data [facility] ABSTRACTION Provider, Abstract 03/25/2025 External Device Data [facility] ABSTRACTION Provider, Abstract 03/25/2025 External Device Data [facility] ABSTRACTION Provider, Abstract 03/22/2025 3:21 AM CDT - 03/27/2025 7:10 PM CDT Hospital Encounter [facility] 4A Cardiac [address] [place] [address] Bandar Parsons MD Sundaram, Vignesh, MD Meyer III, DO John Sorto Saroj, MD Haq, MD Elyse Hinkle, Jean-Pierre Prieto MD Acute on chronic combined systolic and diastolic heart failure ([facility]/HCC) Discharge Disposition: Medicaid Nursing Facility 03/21/2025 - 03/21/2025 11:59 PM CDT Hospital Encounter [address] [address]: [facility] 03/21/2025 Travel 03/18/2025 External Device Data [facility] ABSTRACTION Provider, Abstract 03/04/2025 12:30 AM CDT - 03/04/2025 11:59 PM CDT Hospital Encounter [address] [address] [facility]position: [facility] 02/20/2025 Abstract [facility] [address] [place] [address] Provider, Abstract 02/20/2025 Orders Only [facility] [address] [place] [address] Provider, Abstract 02/19/2025 - 02/19/2025 11:59 PM CDT Hospital Encounter [facility] [address] [place] [phone] Lokesh Mckeon MD Ambulance, [facility] Discharge Disposition: Intermediate Care Facility 02/18/2025 External Device Data ST[place] ABSTRACTION Provider, Abstract 02/18/2025 External Device Data [facility] ABSTRACTION Provider, Abstract 02/18/2025 External Device Data [facility] ABSTRACTION Provider, Abstract 02/17/2025 Travel 02/14/2025 1:05 AM CDT - 02/14/2025 2:05 AM CDT Surgery [facility] Cardiac Telecommunications Administrator [address] [place] [phone] Ryan Mathews MD Left heart cath 02/14/2025 Results Follow-Up [facility] [address] [place] [phone] Ryan Mathews MD MANUFACTURING TEST ENGINEER PROCEDURE 02/13/2025 10:12 PM CDT - 02/19/2025 7:37 PM CDT Hospital Encounter [facility] 4B Cardiac [address] [facility] [place] [phone] Jean-Pierre Pappas MD Elgayesh, Kim Grayson, MD Hamilton, MD Fer Aponte, MD Linda Ruiz, Lokesh Nash MD STEMI (ST elevation myocardial infarction) ([facility]) Discharge Disposition: [facility] Fac(SNF) with Medicare Certification in Anticipation of [...] who hurts you emotionally and/or physically? No 03/22/2025 Food Insecurity Answer Date Recorded Patient needs follow up regardin 02/17/2025 Transportation Needs Answer Date Record ed Patient needs follow up regardin 02/17/2025 Housing Stability Answer Date Recorded Social/Environmental Concerns No concerns Utility Needs Answer Date Recorded Patient needs follow up regardin 02/17/2025 Sex and Gender Information Value Date Recorded Sex Assigned at Not on file Legal Sex Male 12:11 AM PHOTOGRAPHERS[employer] MODEL Gender Identity Not on file Sexual Orientation [...] st Contact Info) Description 07/09/2025 10:20 AM PHOTOGRAPHERS' MO[employer] Office Visit [facility] [address] [facility] [address] [place] [phone] Saritha Horton FNP [address] [place] [address] 10/24/2025 10:45 AM PHOTOGRAPHERS[employer] MO[employer] Office Visit [facility] [address] [place] [phone] Dane Sierra MD [address] [facility] [address] [place] [phone] Health Maintenance Due Date Last Done [...] Cancer Screening 07/11/2023 INFLUENZA VACCINE (#1) 2025 3, 05/11/2022, 05/11/2022, Additional history exists COVID-19 Vaccine (2024-2 6 season) 2025 06/06/2023, 05/18/2022, 11/03/2021, Additional history exists ZOSTER VACCINE Completed 11/26/2018, 09/24/2018 PNEUMOCOCCAL VACCINE 50+ YEARS Completed 1 09/19/2019, 07/20/2020, 06/01/2019, Additional history exists Medical Devices Implanted Type Area Cover Stitch Machine Operator Device Identifier Shelf Expiration Date Model / Serial / Lot Stent Jayy [place] 4.0x38mm Rx [id number] - [id number] Implanted:Qty: 1 on 02/14/2025 by [employer] Specialist () MD Wing at [facility] Stent N/A: Coronary [employer] [id number] 02/19/2027 [id number] / / [id number] Procedures Procedure Name Priority Date/Time Associated Diagnosis Comments TELEMETRY REPORT 03/28/2025 9:55 AM CDT BASIC METABOLIC PANEL Routine 03/27/2025 4:40 AM CDT VANCOMYCIN LEVEL TROUGH Timed Study 03/26/20 12:44 PM CDT UPPER ENDOSCOPY REPORT 10:15 AM CDT PATHOLOGY Pathology 03/26/2025 10:04 AM CDT ESOPHAGOGASTRODUODENOSCOPY 03/26 9:20 AM CDT Case Notes 03/26 07 patient only drink 1 sip of prep and is refusing more. message sent to nurse and TICO Canas to determine next steps - KT HEMOGLOBIN AND HEMATOCRIT Routine 2024 8:46 AM CDT CBC WITH DIFFERENTIAL Routine 03/26/2025 2:06 AM CDT BASIC METABOLIC PANEL Routine 03/26/2025 2:06 AM CDT STREPTOCOCCUS PNEUMONIAE ANTIGEN Routine 03/25/2025 2:47 PM CDT LEGIONELLA ANTIGEN, URINE Routine 2024 2:47 PM CDT MATERIALS MANAGEMENT CLERK EVALUATE AND TREAT Routine 11:23 AM CDT [...] 10:18 PM CDT BRAIN NATRIURETIC PEPTIDE, B HAM ROLLING MACHINE OPERATOR OR PROBNP Stat 03/21/2025 10:18 PM CDT [...] 6:46 AM CDT BRAIN NATRIURETIC PEPTIDE, B HAM ROLLING MACHINE OPERATOR OR PROBNP Routine 02/17/2025 6:19 AM CDT LIPID PANEL Routine 02/17/2025 6:19 AM CDT COMPREHENSIVE METABOLIC PANEL Routine 6:19 AM CDT CBC WITHOUT DIFFERENTIAL Routine 025 6:19 AM CDT POC GLUCOSE Routine 02/16/2025 6:01 AM CDT POC GLUCOSE Routine 02/15/2025 8:27 PM CDT POC GLUCOSE Routine 02/15/2025 5:08 PM CDT MATERIALS MANAGEMENT CLERK EVALUATE AND TREAT Routine 11:23 AM CDT [...] ENDOSCOPY, COLON, SCREENING Routine 06/28 12:39 PM PHOTOGRAPHERS' MODEL from Last 3 Months or Most Recently [...] 136 - 145 mmol/L 03/27/2025 5:46 AM T [facility] [employer] [facility] POTASSIUM 4.2 3.5 - 5.1 mmol/L 03/27/2025 5:46 AM [facility] [employer] [facility] Comment:Moderate hemolysis p resent. Can cause significant falsely elevated result. Redraw if indicated. CHLORIDE 101 98 - 107 mmol/L 03/27/2025 5:46 AM [facility] CO2 32(H) 22 - 29 mmol/L 03/27/2025 5:46 AM [facility] CALCIUM 8.1(L) 8.8 - 10.2 mg/dL 03/27/2025 5:46 AM T [facility] BUN 10 8 - 23 mg/dL 03/27/2025 5:46 AM [facility] CREATININE 0.67 0.67 - 1.17 mg/dL 03/27/2025 5:46 AM [facility] Comment:The GFR result is no t clinically significant on patients <18 or >70 years of age. GLUCOSE 92 74 - 99 mg/dL 03/27/2025 5:46 AM [facility] GFR >60 mL/min/1.7 3 sq meter 03/27/2025 5:46 AM [facility] [employer] [facility] Comment:eGFR calculated with 2020 CKD-EPI equation. Vegetarian diet, extremely high or low muscle mass, and may affect results. Cystatin C with Glomerular Filtration Rate is a suitable alternative for these patients. ANION GAP 7(L) 9 - 20 mmol/L 03/27/2025 5:46 AM CDT [facility] Blood Venipuncture / Unknown 03/27/2025 4:40 AM CDT 03/27/2025 5:07 AM CDT us Adilene Trinh NP CHEMISTRY ORDERABLES Final Re sult Performing Organization Address [facility] Co de Phone Number [facility] CLIA # [id number] [address] [facility] [place] [address] * VANCOMYCIN LEVEL TROUGH (03/26/2025 12:44 PM CDT) VANCOMYCIN, TROUGH 10.6 10.0 - 17.0 ug/mL 03/26/2025 1:24 PM CDT [facility] Blood Venipuncture / Unknown 03/26/2025 12:44 PM CDT 03/26/2025 12:52 PM CDT us Arin Koroma MD CHEMISTRY ORDERABLES Final Resul t Performing Organization Address [facility] Co de Phone Number [facility] CLIA # [id number] [address] [address] * UPPER ENDOSCOPY REPORT (03/26/2025 10:15 AM CDT) Narrative Procedure Note iTago Ryan MD - 03/26/2025 10:15 AM CDT [facility] GI Patient Name: Isreal Arguello Procedure Date: [...] Time Scope In: Scope Out: [address] [place], [place] Tiago Ryan MD GI PROCEDURE ORDERABLES F inal Result * PATHOLOGY (03/26/2025 10:04 AM CDT) CASE REPORT Surgical Pathology Report Case: [id number] Authorizing Provider: Tiago Ryan MD Collected: 03/26/2025 10:04 AM Ordering Location: [facility] Received: 03/26/2025 01:42 PM Endoscopy Pathologist: Marialuisa Lazcano MD Specimens: A) - Stomach B) - Small Intestine, duodenum 9:52 AM T [facility] FINAL DIAGNOSIS A. Stomach, biopsy - Mild chronic gastritis - An immunohistochemical stain for H. pylori was performed on block A1 and is negative / B. Small intestine, duodenum, biopsy - Small intestinal mucosa with increased intraepithelial lymphocytes and preserved villous architecture, see comment Marialuisa Lazcano MD [id number] 9:52 AM CDT [facility] at 0952 CDT DIAGNOSIS COMMENT A. No [...] and serologic correlation is recommended. 9:52 AM T [facility] GROSS DESCRIPTION A. Received in a container of formalin labeled [place] -stomach rule out H. pylori are multiple fragments of mucosa, 0.8 x 0.6 x 0.2 cm. The specimen is submitted entirely in A1. B. Received in a container of formalin labeled Alannah -duodenum rule out celiac are multiple fragments of mucosa, 0.8 x 0.6 x 0.1 cm. The specimen is submitted entirely in B1. Grossed by: Angeline Andrade MS, PA (ASCP)CM 9:52 AM T [facility] OPERATIVE PROCEDURE 1: ESOPHAGOGASTRODUODENOSCO PY 9:52 AM T [facility] CLINICAL INFORMATION R/o H Pylori 9:52 AM T [facility] COMMENT The [employer] voice-activated dictation system may have been used [...] determined by the Diagnostic Immunohistochemistry Laboratory of [facility] in compliance with CLIA'88 regulations. Some of these tests rely on the use of analyte specific reagents and are subject to specific labeling requirements by the FDA. All controls show appropriate reactivity. This testing was developed by the Diagnostic Immunohistochemistry Laboratory of [facility]. It has not been cleared or approved by the FDA. The FDA has determined that such clearance or approval is not necessary. 9:52 AM CDT [facility] Tissue ENTIRE STOMACH / Unknown Collection / Unknown 03/26/2025 10:04 AM CDT 03/26/2025 1:42 PM CDT Comment:R/o H Pylori Tissue specimen (specimen) (Small Intestine) Collection / Unknown 03/26/2025 10:04 AM CDT 03/26/2025 1:42 PM CDT Comment:R/O Celiac Sprue Tiago Ryan MD PATHOLOGY/CYTOLOGY ORDERA BLES Final Result [facility] CLIA # [id number] [address] [place] [address] * (ABNORMAL) HEMOGLOBIN AND HEMATOCRIT (03/26/2025 8:46 AM CDT) Only the most recent of7 resultswithin the time period is included. HEMOGLOBIN 7.4(L) 14.0 - 18.0 g/dL 03/26/2025 9:05 AM CDT [facility] HEMATOCRIT 26.3(L) 41.0 - 53.0 % 03/26/2025 9:05 AM CDT [facility] Blood Venipuncture / Unknown 03/26/2025 8:46 AM CDT 03/26/2025 8:57 AM CDT us Arin Koroma MD HEMATOLOGY ORDERABLES Final Resu lt [facility] CLARCELIA # [id number] [address] [address] [place] [address] * (ABNORMAL) CBC WITH DIFFERENTIAL (03/26/2025 2:06 AM CDT) Only the most recent of6 resultswithin the time period is included. WBC 11.4(H) 4.8 - 10.8 K/uL 03/26/2025 2:18 AM CDT [facility] RBC 2.95(L) 4.60 - 6.20 M/uL 03/26/2025 2:18 AM CDT [facility] HEMOGLOBIN 7.3(L) 14.0 - 18.0 g/dL 03/26/2025 2:18 AM CDT [facility] HEMATOCRIT 25.6(L) 41.0 - 53.0 % 03/26/2025 2:18 AM CDT [facility] MCV 86.8 84.0 - 103.0 fL 03/26/2025 2:18 AM CDT [facility] MCH 24.7(L) 27.0 - 34.0 pg 03/26/2025 2:18 AM CDT [facility] MCHC 28.5(L) 30.0 - 35.0 g/dL 03/26/2025 2:18 AM CDT [facility] PLATELETS 399 140 - 440 K/uL 03/26/2025 2:18 AM CDT [facility] MPV 9.2 8.9 - 12.8 fL 03/26/2025 2:18 AM CDT [facility] RDW 18.6(H) 11.0 - 14.5 % 03/26/2025 2:18 AM CDT [facility] RDW-STDEV 58.7(H) 37.0 - 54.0 fL 03/26/2025 2:18 AM CDT [facility] NEUTROPHILS 79(H) 42 - 75 % 03/26/2025 2:18 AM T [facility] LYMPHOCYTES 11(L) 24 - 44 % 03/26/2025 2:18 AM CDT [facility] MONOCYTES 7 2 - 10 % 03/26/2025 2:18 AM T [facility] EOSINOPHILS 2 0 - 7 % 03/26/2025 2:18 AM CDT [facility] BASOPHILS 1 0 - 1 % 03/26/2025 2:18 AM CDT [facility] IMMATURE GRANULOCYTES 1 0 - 2 % 03/26/2025 2:18 AM T [facility] NEUTROPHIL ABSOLUTE 8.93(H) 2.00 - 8.00 K/uL 03/26/2025 2:18 AM [facility] LYMPHOCYTE ABSOLUTE 1.19(L) 1.20 - 4.00 K/uL 03/26/2025 2:18 AM T [facility] MONOCYTE ABSOLUTE 0.84(H) 0.10 - 0.60 K/uL 03/26/2025 2:18 AM T [facility] EOSINOPHIL ABSOLUTE 0.21 0.00 - 0.70 K/uL 03/26/2025 2:18 AM [facility] BASOPHILS ABSOLUTE 0.06 0.00 - 0.20 K/uL 03/26/2025 2:18 AM [facility] IMMATURE GRANULOCYTES ABSOLUTE 0.15(H) 0.00 - 0.10 K/uL 03/26/2025 2:18 AM [facility] SMEAR REVIEWED: NA - Not Applicable 03/26/2025 2:18 AM [facility] Blood Venipuncture / Unknown 03/26/2025 2:06 AM CDT 03/26/2025 2:09 AM CDT us Adilene Trinh HAM ROLLING MACHINE OPERATOR HEMATOLOGY ORDERABLES Final R esult [facility] CLIA # [id number] [address] [place] [address] * LEGIONELLA ANTIGEN, URINE (03/25/2025 2:47 PM CDT) Pathologist [facility] LEGIONELLA AG, URINE NOT DETECTED Not Detected 03/25/2025 3:56 PM CDT [facility] Urine URINE SPECIMEN OBTAINED BY CLEAN CATCH PROCEDURE / Unknown Collection / Unknown 03/25/2025 2:47 PM CDT 03/25/2025 2:52 PM CDT Narrative [facility] - 03/25/2025 3:56 PM CDT This test [...] ORDERABLE S Final Result Performing Organization Address [facility] Co de Phone Number [facility] CLIA # [id number] [address] [place] [address] * STREPTOCOCCUS PNEUMONIAE ANTIGEN (03/25/2025 2:47 PM CDT) [facility] STREPTOCOCCUS PNEUMONIAE AG NOT DETECTED Not Detected 03/25/2025 3:55 PM CDT [facility] Urine URINE SPECIMEN OBTAINED BY CLEAN CATCH PROCEDURE / Unknown Collection / Unknown 03/25/2025 2:47 PM CDT 03/25/2025 2:52 PM CDT Arin Koroma MD MICROBIOLOGY - GENERAL ORDERABLE S Final Result Performing Organization Address [facility]/ZIP Co de Phone Number [facility] CLIA # [id number] [address] [facility] [place] [address] * PERIPHERAL BLOOD SMEAR PATHOLOGY INTERP (03/25/2025 5:01 AM CDT) [facility] PERIPHERAL BLOOD SMEAR INTERP See Interpretation Below 03/26/2025 11:26 AM CDT [facility] INTERPRETED BY: Axel Keating MD 03/26/2025 11:26 AM CDT [facility] Blood Venipuncture / Unknown 03/25/2025 5:01 AM CDT 03/25/2025 5:18 AM CDT Narrative [facility] - 03/26/2025 11:26 AM CDT CLINICAL INFORMATION: [...] is recommended. Reviewed by Chetan Keating MD us Arin Koroma MD HEMATOLOGY ORDERABLES Final Resu lt [facility] CLIA # [id number] [id number] [place] [address] * POC GLUCOSE (03/24/2025 1:01 PM CDT) Only the most recent of17 resultswithin the time period is included. [facility] GLUCOSE POC 90 74 - 99 mg/dL 03/24/2025 1:01 PM CDT [facility] SPECIMEN SOURCE, GLUCOSE POC Capillary 03/24/2025 1:01 PM CDT [facility] Blood, whole 03/24/2025 1:01 PM CDT 03/24/2025 1:10 PM CDT Cal Garcia III, DO POINT OF CARE TESTING Fin al Result Performing Organization Address [facility]/ZIP Co de Phone Number [facility] CLIA # [id number] [address] [place] [address] * TRANSFUSE EMERGENCY RELEASE/DOWNTIME RED BLOOD CELLS (03/24/2025 12:50 PM CDT) Cal Garcia III, DO BLOOD TRANSFUSION ORDERAB LES Final Result * (ABNORMAL) MRSA PCR RAPID SCREEN (03/24/2025 9:28 AM CDT) Pathologist [facility] MRSA PCR RESULT MRSA detected( A) MRSA not detected 03/24/2025 10:44 AM CDT [facility] Surveillance ANTERIOR NARES SWAB / Unknown Collection / Unknown 03/24/2025 9:28 AM CDT 03/24/2025 9:31 AM CDT Narrative [facility] - 03/24/2025 10:44 AM CDT Positive MRSA called to Susy Berkowitz RN by Jose L Vega on 03/24/2025 at 10:43 AM with verbal readback. Adilene Trinh NP MICROBIOLOGY - GENERAL ORDERA BLES Final Result Performing Organization Address City/[facility]/ZIP Co de Phone Number [facility] CLIA # [id number] [address] [place] [address] * MAGNESIUM LEVEL (03/24/2025 4:41 AM CDT) Only the most recent of3 resultswithin the time period is included. Pathologist [facility] MAGNESIUM 2.4 1.6 - 2.4 mg/dL 03/24/2025 5:43 AM CDT [facility] Blood Venipuncture / Unknown 03/24/2025 4:41 AM CDT 03/24/2025 5:00 AM CDT Azul Wilkerson HAM ROLLING MACHINE OPERATOR CHEMISTRY ORDERABLES Final Re sult Performing Organization Address [facility] de Phone Number [facility] CLIA # [id number] [address] [address] [place] [address] * CORTISOL LEVEL (03/24/2025 4:41 AM CDT) CORTISOL LEVEL 13.5 ug/dL 03/24/2025 5:43 AM CDT [facility] Comment: Cortisol Reference Range Morning Hours 6-10 a.m. 6.0-18.4 ug/dL Afternoon Hours 4-8 p.m. 2.7-10.5 ug/dL Blood Venipuncture / Unknown 03/24/2025 4:41 AM CDT 03/24/2025 5:00 AM CDT Azul Wilkerson HAM ROLLING MACHINE OPERATOR CHEMISTRY ORDERABLES Final Re sult Performing Organization Address [facility] Co de Phone Number [facility] CLIA # [id number] [address] [address] * VANCOMYCIN LEVEL RANDOM (03/24/2025 4:41 AM CDT) VANCOMYCIN, RANDOM 10.2 5.0 - 50.0 ug/mL 03/24/2025 5:43 AM CDT [facility] Blood Venipuncture / Unknown 03/24/2025 4:41 AM CDT 03/24/2025 5:00 AM CDT Narrative [facility] - 03/24/2025 5:43 AM CDT Vancomycin Therapeutic Ranges: Vancomycin Trough: 10 - 20 mcg/mL Vancomycin Peak: 25 - 50 mcg/mL Jaime Ruggiero MD CHEMISTRY ORDERABLES Final R esult Performing Organization Address City/[facility]/ZIP Co de Phone Number [facility] CLIA # [id number] [address] [address] [place], [place] [address] * BLOOD CULTURE (03/23/2025 10:03 PM CDT) Only the most recent of2 resultswithin the time period is included. [facility] BLOOD CULTURE No growth 03/29/2025 3:34 AM CDT [facility] Blood (Peripheral) Venipuncture / Unknown 03/23/2025 10:03 PM CDT 03/23/2025 10:06 PM CDT Narrative [facility] - 03/29/2025 3:34 AM CDT Specimen processed with suboptimal blood volume collected. Tequila Nobles MD MICROBIOLOGY - GENERAL ORDERABLES Final Result Performing Organization Address [facility] Co de Phone Number [facility] CLIA # [id number] [address] [address] * RESPIRATORY PATHOGEN PCR PANEL (03/23/2025 1:59 PM CDT) [facility] Respiratory Pathogen PCR Panel NOT DETECTED No respiratory pathogen nucleic acids detected. 03/23/2025 3:25 PM CDT [facility] COVID-19 PCR NOT DETECTED Not Detected 03/23/2025 3:25 PM CDT [facility] Upper Respiratory ENTIRE NASOPHARYNX / Unknown Collection / Unknown 03/23/2025 1:59 PM CDT 03/23/2025 2:09 PM CDT Narrative [facility] - 03/23/2025 3:25 PM CDT The Film [...] MICROBIOLOGY - GENERAL ORDERA BLES Final Result [facility] # [id number] [address] [address] * ECHOCARDIOGRAM W/ CONTRAST AGENT (03/23/2025 10:23 AM CDT) Only the most recent of2 resultswithin the time period is included. EJECTION FRACTION 31 INTERFACE SYSTEM 03/23/2025 9:35 AM CDT Narrative INTERFACE SYSTEM - 03/23/2025 11:19 AM CDT [facility] Echocardiography Laboratory [address] [place] [address] Transthoracic Echocardiography Patient: Isreal Arguello Study ID: ECHO COMPLETE - R Gender: M : 1950 Age: 74 Room: [facility] Study 03/23/2025 Pt Inpatient Date: Status: Study 09:35:52 AM CSN #: [id number] Time: Ordering:Azul Wilkerson (student) Detective Lieutenant: Angeline Silva Indications and History: Chest pain. [...] (H) odalis values outside specified reference range. [facility] are accredited with the Intersocietal Accreditation Commission - Echocardiography. Prepared and Electronically Authenticated Jose Smith MD Confirmed 03/23/2025 11:19 Procedure Note Jose Smith MD - 03/23/2025 [facility] Echocardiography Laboratory [address] [place] [address] Transthoracic Echocardiography Patient: Isreal Arguello Study ID: ECHO COMPLETE- R Gender: M : 1950 Age: 74 Room: [facility] Study 03/23/2025 Pt Inpatient Date: Status: Study 09:35:52 AM [facility] #: [id number] Time: Ordering:Azul Wilkerson (student) Detective Lieutenant: Angeline Silva Indications and History: Chest pain. [...] coapt 34.2cm MiV/LVOT VTI1.7 LVOT Value Decel .66 cm/s^2 Diam, S 2.0 cm Decel time [...] (H) odalis values outside specified reference range. [facility] are accredited with theIntersocietal Accreditation Commission - Echocardiography. Prepared and Electronically Authenticated Jose Smith MD Confirmed 03/23/2025 11:19 us Azul Wilkerson NP US ORDERABLES Final Result Performing Organization Address [facility] de Phone Number INTERFACE SYSTEM Refer to clinic/hospital department * (ABNORMAL) AMMONIA LEVEL (03/23/2025 9:23 AM CDT) AMMONIA 15.5(L) 16.0 - 60.0 umol/L 03/23/2025 9:53 AM CDT [facility] Blood, venous Venipuncture / Unknown 03/23/2025 9:23 AM CDT 03/23/2025 9:27 AM CDT Azul Wilkerson NP CHEMISTRY ORDERABLES Final Re sult Performing Organization Address [facility] de Phone Number [facility] CLIA # [id number] [address] [facility] [place] [address] * XR CHEST PA OR AP 1 [...] Pulmonary venous hypertension. Remainder unremarkable. Azul Wilkerson NP DIAGNOSTIC IMAGING ORDERABLES Final Result * POC LACTIC ACID (03/23/2025 7:08 AM CDT) Only the most recent of4 resultswithin the time period is included. LACTIC ACID POC 2.0 <=2.0 mmol/L 03/23/2025 7:08 AM CDT [facility] SPECIMEN SOURCE, GASES POC Arterial 03/23/2025 7:08 AM CDT [facility] SITE POC ART PUNCT 03/23/2025 7:08 AM CDT [facility] Blood 03/23/2025 7:08 AM CDT 03/23/2025 7:11 AM CDT Narrative [facility] - 03/23/2025 7:08 AM CDT References ranges displayed are for Arterial samples. us Cal Garcia III, DO POINT OF CARE TESTING Xiang lu Result [facility] BRIAN # [id number] [address] [address] [place] [address] * (ABNORMAL) BLOOD GAS ARTERIAL (03/23/2025 7:08 AM CDT) Only the most recent of4 resultswithin the time period is included. PH BLOOD POC 7.43 7.35 - 7.45 03/23/2025 7:08 AM [facility] PCO2 POC 55(H) 35 - 45 mm Hg 03/23/2025 7:08 AM [facility] PO2 POC 128(H) 80 - 105 mm Hg 03/23/2025 7:08 AM [facility] HCO3 (CALC) POC 37(H) 22 - 26 mmol/L 03/23/2025 7:08 AM [facility] HEMOGLOBIN POC 7.6(L) 12.0 - 18.0 g/dL 03/23/2025 7:08 AM [facility] BASE EXCESS POC 12(H) -2 - 3 mmol/L 03/23/2025 7:08 AM [facility] O2 SATURATION POC 100(H) 95 - 98 % 03/23/2025 7:08 AM [facility] SODIUM POC 139 138 - 146 mmol/L 03/23/2025 7:08 AM [facility] POTASSIUM POC 4.1 3.5 - 4.9 mmol/L 03/23/2025 7:08 AM [facility] HEMATOCRIT POC 23(L) 38 - 51 % 03/23/2025 7:08 AM [facility] PH TEMP CORRECT 7.43 7.35 - 7.45 03/23/20 7:08 AM CDT [facility] PCO2 TEMP CORRECT 55(H) 35 - 45 mm Hg 03/23/2025 7:08 AM CDT [facility] PO2 TEMP CORRECT 128(H) 80 - 105 mm Hg 03/23/2025 7:08 AM T [facility] SPECIMEN SOURCE, GASES POC Arterial 03/23/2025 7:08 AM CDT [facility] CALCIUM IONIZED POC 4.4(L) 4.8 - 5.2 mg/dL 03/23/2025 7:08 AM T [facility] TCO2 (CALC) POC 38(H) 23 - 27 mmol/L 03/23/2025 7:08 AM T [facility] PUNC SITE POC ART PUNCT 03/23/2025 7:08 AM CDT [facility] VENT MODE POC BiPAP 03/23/2025 7:08 AM T [facility] PATIENT'S TEMPERATURE POC 37.0 degrees 03/23/2025 7:08 AM T [facility] Blood, arterial 03/23/2025 7 :08 AM CDT 03/23/2025 7:11 AM CDT us Cal Garcia III, DO ABG ORDERABLES Final Res ult Performing Organization Address [facility]/State/ZIP Co de Phone Number [facility] CLAL # [id number] [address] [place] [id number] * LACTIC ACID (03/23/2025 5:26 AM CDT) LACTIC ACID 2.0 <=2.0 mmol/L 03/23/2025 5:58 AM CDT [facility] Blood Venipuncture / Unknown 03/23/2025 5:26 AM CDT 03/23/2025 5:34 AM CDT us Lenora Purdy HOG TENDER CHEMISTRY ORDERABLES Fi nal Result Performing Organization Address City/[facility] Co de Phone Number [facility] CLIA # [id number] [address] [address] [place] [address] * (ABNORMAL) PROCALCITONIN (03/23/2025 5:16 AM CDT) PROCALCITONIN 54.34(H) <=0.08 ng/mL 03/23/2025 6:31 AM CDT [facility] Blood Venipuncture / Unknown 03/23/2025 5:16 AM CDT 03/23/2025 5:41 AM CDT Narrative [facility] [employer] [facility] - 03/23/2025 6:31 AM CDT The utility [...] and peaks within 6-24 hours. Lenora Purdy HOG TENDER CHEMISTRY ORDERABLES Fi nal Result Performing Organization Address [facility]/ZIP Co de Phone Number [facility] [employer] [facility] CLIA # [id number] [address] [place] [phone] * (ABNORMAL) BASIC METABOLIC PANEL PLUS (ADD ON CMP TO BMP) (03/23/2025 5:16 AM CDT) [facility] TOTAL PROTEIN 7.9 6.4 - 8.3 g/dL 03/23/2025 7:51 AM CDT [facility] ALBUMIN 2.8(L) 3.5 - 5.2 g/dL 03/23/2025 7:51 AM CDT [facility] BILIRUBIN TOTAL 0.5 0.0 - 1.0 mg/dL 03/23/2025 7:51 AM CDT [facility] ALKALINE PHOSPHATASE 171(H) 40 - 129 U/L 03/23/2025 7:51 AM CDT [facility] AST 16 10 - 50 U/L 03/23/2025 7:51 AM CDT [facility] ALT 8 <=50 U/L 03/23/2025 7:51 AM T [facility] Blood Venipuncture / Unknown 03/23/2025 5:16 AM CDT 03/23/2025 5:41 AM CDT us Azul Wilkerson NP CHEMISTRY ORDERABLES Final Re sult [facility] CLIA # [id number] [address] [place] [address] * TYPE AND SCREEN (03/23/2025 5:16 AM CDT) Only the most recent of2 resultswithin the time period is included. Pathologist [facility] ABO GROUP O 03/23/2025 7:31 AM CDT [facility] LABORATORY [facility] RH (D) TYPE Positive 03/23/2025 7:31 AM CDT [facility] [place] ANTIBODY SCREEN Negative 03/23/2025 7:31 AM CDT [facility] [place] Blood Venipuncture / Unknown 03/23/2025 5:16 AM CDT 03/23/2025 5:34 AM CDT Lenora Yoderum HOG TENDER BLOOD BANK ORDERABLES E dited Result - Final Performing Organization Address City/[facility]/ZIP Co de Phone Number [facility] LABOR[facility] [place] CLIA#[id number] [address] [place] [address], * (ABNORMAL) C-REACTIVE PROTEIN (03/23/2025 5:16 AM CDT) CRP 60.9(H) 0.0 - 5.0 mg/L 03/23/2025 12:30 PM CDT [facility] Blood Venipuncture / Unknown 03/23/2025 5:16 AM CDT 03/23/2025 5:41 AM CDT Azul Wilkerson HAM ROLLING MACHINE OPERATOR CHEMISTRY ORDERABLES Final Re sult Performing Organization Address [facility] Co de Phone Number [facility] CLIA # [id number] [address] [address] * (ABNORMAL) T4 FREE (03/23/2025 5:16 AM CDT) T4 FREE 0.72(L) 0.81 - 1.70 ng/dL 03/23/2025 2:20 PM CDT [facility] Blood Venipuncture / Unknown 03/23/2025 5:16 AM CDT 03/23/2025 5:41 AM CDT Azul Wilkerson HAM ROLLING MACHINE OPERATOR CHEMISTRY ORDERABLES Final Re sult Performing Organization Address City/[facility]/ZIP Co de Phone Number [facility] [employer] [facility] CLIA # [id number] [address] [address] * PREPARE RED BLOOD CELLS (03/23/2025 4:38 AM CDT) [facility] COMPONENT TYPE [id number] [facility]ORY SERVICES -- [place] COMPONENT IDENTIFICATION [id number] [facility] [place] UNIT ABO O [facility] [place] UNIT RH NEG [facility] [place] CROSSMATCH Compatible [facility] -- [place] COMPONENT STATUS Transfused ME [facility] -- [place] COMPONENT EXPIRATION DATE/TIME [id number] [facility] -- [place] COMPONENT CODING SYSTEM 9500 [facility] [place] VOLUME, BLOOD PRODUCT 350 [facility] [place] Other, specify 03/23/2025 4: 38 AM CDT Lenora Purdy HOG TENDER LAB TRANSFUSION ORDERAB LES Edited Result - Final [facility] [employer] [facility] CLIA#[id number] [address] [place] [address], * (ABNORMAL) MANUAL DIFFERENTIAL (03/23/2025 3:57 AM CDT) [facility] SEGMENTED NEUTROPHILS 98(H) 36 - 66 % 03/23/2025 4:50 AM CDT [facility] LYMPHOCYTES RELATIVE 0(L) 24 - 44 % 03/23/2025 4:50 AM CDT [facility] MONOCYTES RELATIVE 1(L) 4 - 10 % 03/23/2025 4:50 AM CDT [facility] METAMYELOCYTES RELATIVE 1 0 - 1 % 03/23/2025 4:50 AM CDT [facility] PLATELET EST. Slightly Increased 03/23/2025 4:50 AM CDT [facility] NEUTROPHILS ABSOLUTE COUNT 41.85(H) 2.00 - 8.00 K/uL 03/23/2025 4:50 AM CDT [facility] LYMPHOCYTES ABSOLUTE 0.00(L) 1.20 - 4.00 K/uL 03/23/2025 4:50 AM CDT [facility] ATYPICAL LYMPHS ABSOLUTE 03/23/2025 4:50 AM CDT [facility] MONOCYTES ABSOLUTE 0.43 0.10 - 0.60 K/uL 03/23/2025 4:50 AM CDT [facility] ANISOCYTOSIS 1+ /hpf 03/23/2025 4:50 AM CDT [facility] POLYCHROMASIA 1+ /hpf 03/23/2025 4:50 AM CDT [facility] VACUOLATED NEUTROPHILS Present /hpf 03/23/2025 4:50 AM CDT [facility] TOTAL CELLS COUNTED IN DIFF 100 03/23/2025 4:50 AM CDT [facility] Blood Venipuncture / Unknown 03/23/2025 3:57 AM CDT 03/23/2025 4:02 AM CDT us Lenora Purdy HOG TENDER HEMATOLOGY ORDERABLES C OM Final Result [facility] CLIA # [id number] [address] [place] [address] * VITAMIN B12 AND FOLATE (03/23/2025 3:57 AM CDT) VITAMIN B12 616 211 - 946 pg/mL 03/23/2025 4:54 AM CDT [facility] FOLATE, SERUM 11.4 3.1 - 17.5 ng/mL 03/23/2025 4:54 AM CDT [facility] Blood Venipuncture / Unknown 03/23/2025 3:57 AM CDT 03/23/2025 4:03 AM CDT us Jaime Ruggiero MD CHEMISTRY ORDERABLES Final R esult [facility] # [id number] [id number] [place] [address] * CT ABDOMEN PELVIS W CONTRAST (03/22/2025 [...] Ruggiero MD URINE ORDERABLES Final Resul t [facility] CLIA # [id number] [address] [place] [address] [place] [address] * (ABNORMAL) URINALYSIS WITH REFLEX MICROSCOPIC (03/22/2025 8:38 AM CDT) COLOR UA Pale Yellow Pale to Dark Yellow 03/22/2025 9:07 AM T [facility] CLARITY UA Turbid(A) Clear 03/22/2025 9:07 AM T [facility] SPECIFIC GRAVITY UA 1.013 1.003 - 1.035 03/22/2025 9:07 AM T [facility] PH UA 8.0 5.0 - 8.0 03/22/2025 9:07 AM T [facility] LEUKOCYTE ESTERASE UA 3+(A) Negative 03/22/2025 9:07 AM [facility] NITRITE UA Negative Negative 03/22/2025 9:07 AM [facility] PROTEIN UA Trace(A) Negative 03/22/2025 9:07 AM T [facility] GLUCOSE UA Negative Negative 03/22/2025 9:07 AM [facility] KETONES UA Negative Negative 03/22/2025 9:07 AM [facility] UROBILINOGEN UA <2.0 <2.0 mg/dL 9:07 AM T [facility] BILIRUBIN UA Negative Negative 03/22/2025 9:07 AM [facility] BLOOD UA Trace(A) Negative 03/22/2025 9:07 AM T [facility] WBC UA 3-5(A) 0 - 2 /hpf 03/22/2025 9:07 AM CDT [facility] RBC UA 3-5(A) 0 - 2 /hpf 03/22/2025 9:07 AM CDT [facility] BACTERIA UA Negative Negative /hpf 03/22/2025 9:07 AM CDT [facility] EPITHELIAL CELLS, URINE 0-5 0 - 5 /hpf 03/22/2025 9:07 AM CDT [facility] TRIPLE PHOS Present(A) Absent 03/22/2025 9:07 AM CDT [facility] Urine URINE SPECIMEN OBTAINED BY CLEAN CATCH PROCEDURE / Unknown Collection / Unknown 03/22/2025 8:38 AM CDT 03/22/2025 8:50 AM CDT us Jaime Ruggiero MD URINE ORDERABLES Final Resul t Performing Organization Address City/State/[facility] Co de Phone Number [facility] CLIA # [id number] [address] [place] [address] * (ABNORMAL) TROPONIN 6 HR, 5TH GEN (03/22/2025 4:36 AM CDT) Only the most recent of2 resultswithin the time period is included. TROPONIN T, 6 HR 5TH GEN 133(HH) <=15 ng/L 03/22/2025 5:22 AM CDT [facility] DELTA 6HR TROPONIN T % -9 See Interp. % 03/22/2025 5:22 AM CDT [facility] Blood Venipuncture / Unknown 03/22/2025 4:36 AM CDT 03/22/2025 4:46 AM CDT Narrative [facility] - 03/22/2025 5:22 AM CDT Troponin elevated. Delay in collection of timed specimen beyond recommended collection interval. Results must be interpreted in clinical context. Delta not changing. us Bandar Parsons MD CHEMISTRY ORDERABLES Final Res ult Performing Organization Address [facility]/ZIP Co de Phone Number [facility] CLIA # [id number] [address] [address] * (ABNORMAL) IRON, TIBC, AND PERCENT SATURATION (03/22/2025 4:36 AM CDT) IRON 16(L) 59 - 158 ug/dL 03/22/2025 6:41 PM CDT [facility] TIBC 316 250 - 450 ug/dL 03/22/2025 6:41 PM CDT [facility] IRON % SATURATION 5(L) 15 - 60 % 03/22/2025 6:41 PM CDT [facility] Blood Venipuncture / Unknown 03/22/2025 4:36 AM CDT 03/22/2025 4:46 AM CDT us Jaime Ruggiero MD CHEMISTRY ORDERABLES Final R esult Performing Organization Address [facility] Co de Phone Number [facility] CLIA # [id number] [address] [id number] * (ABNORMAL) TSH (03/22/2025 4:36 AM CDT) TSH 6.70(H) 0.27 - 4.20 uIU/mL 03/22/2025 6:41 PM CDT [facility] Blood Venipuncture / Unknown 03/22/2025 4:36 AM CDT 03/22/2025 4:46 AM CDT us Jaime Ruggiero MD CHEMISTRY ORDERABLES Final R esult Performing Organization Address City/[facility]/ZIP Co de Phone Number [facility] CLIA # [id number] [phone] [place] [address] * FERRITIN (03/22/2025 4:36 AM CDT) [facility] FERRITIN 31.2 30.0 - 400.0 ng/mL 03/22/2025 6:41 PM CDT [facility] Blood Venipuncture / Unknown 03/22/2025 4:36 AM CDT 03/22/2025 4:46 AM CDT Jaime Ruggiero MD CHEMISTRY ORDERABLES Final R esult Performing Organization Address [facility]/ZIP Co de Phone Number [facility] CLIA # [id number] [facility] [address] [address] * (ABNORMAL) TROPONIN BASELINE, 5TH GEN (03/21/2025 10:18 PM CDT) Only the most recent of2 resultswithin the time period is included. [facility] TROPONIN T, BASELINE 5TH GEN 146(HH) <=15 ng/L 03/22/2025 4:37 AM CDT [facility] Blood Venipuncture / Unknown 03/21/2025 10:18 PM CDT 03/21/2025 10:23 PM CDT Narrative [facility] - 03/22/2025 4:37 AM CDT Troponin elevated. Bandar Parsons MD CHEMISTRY ORDERABLES Final Res ult Performing Organization Address [facility]/ZIP Co de Phone Number [facility] CLIA # [id number] [address] [address] * (ABNORMAL) BRAIN NATRIURETIC PEPTIDE, BNP OR PROBNP (03/21/2025 10:18 PM CDT) Only the most recent of2 resultswithin the time period is included. [facility] PROBNP, N TERMINAL 4,282(H) 0 - 125 pg/mL 03/21/2025 10:58 PM CDT [facility] Comment: INTERPRETIVE COMMENT based on diagnosis: Diagnostic [...] Parsons MD CHEMISTRY ORDERABLES Final Res ult [facility] CLIA # [id number] [facility] [address] * (ABNORMAL) COMPREHENSIVE METABOLIC PANEL (03/21/2025 10:18 PM CDT) Only the most recent of6 resultswithin the time period is included. SODIUM 141 136 - 145 mmol/L 03/21/2025 10:58 PM CDT [facility] POTASSIUM 4.5 3.5 - 5.1 mmol/L 03/21/2025 10:58 PM CDT [facility] CHLORIDE 100 98 - 107 mmol/L 03/21/2025 10:58 PM CDT [facility] CO2 33(H) 22 - 29 mmol/L 03/21/2025 10:58 PM CDT [facility] CALCIUM 8.2(L) 8.8 - 10.2 mg/dL 03/21/2025 10:58 PM CDT [facility] BUN 24(H) 8 - 23 mg/dL 03/21/2025 10:58 PM [facility] CREATININE 1.20(H) 0.67 - 1.17 mg/dL 03/21/2025 10:58 PM [facility] Comment:The GFR result is no t clinically significant on patients <18 or >70 years of age. GLUCOSE 118(H) 74 - 99 mg/dL 03/21/2025 10:58 PM [facility] TOTAL PROTEIN 8.5(H) 6.4 - 8.3 g/dL 03/21/2025 10:58 PM [facility] ALBUMIN 2.8(L) 3.5 - 5.2 g/dL 03/21/2025 10:58 PM [facility] BILIRUBIN TOTAL 0.2 0.0 - 1.0 mg/dL 03/21/2025 10:58 PM [facility] ALKALINE PHOSPHATASE 141(H) 40 - 129 U/L 03/21/2025 10:58 PM [facility] AST 9(L) 10 - 50 U/L 03/21/2025 10:58 PM [facility] ALT 6 <=50 U/L 03/21/2025 10:58 PM [facility] GFR >60 mL/min/1. 73 sq meter 03/21/2025 10:58 PM [facility] Comment:eGFR calculated with 2020 CKD-EPI equation. Vegetarian diet, extremely high or low muscle mass, and may affect results. Cystatin C with Glomerular Filtration Rate is a suitable alternative for these patients. ANION GAP 8(L) 9 - 20 mmol/L 03/21/2025 10:58 PM [facility] Blood Venipuncture / Unknown 03/21/2025 10:18 PM CDT 03/21/2025 10:23 PM CDT us Bandar Parsons MD CHEMISTRY ORDERABLES Final Res ult [facility] CLIA # [id number] [facility] [place] [address] * EKG 12-LEAD (03/21/2025 10:11 PM CDT) Only the most recent of3 resultswithin the time period is included. 03/21/2025 10:1 1 PM CDT Narrative INTERFACE SYSTEM - 03/23/2025 1:02 PM CDT [facility] [address] [place] [address] Test Date: 2025-03-21 Pat Name: ISREAL CALLAWAY Department: 11 Room: Gender: Male Manager Of Medical: [id number] : 1950 Requested By: Order Number: [id number] Reading MD: Inessa Zamarripa Measurements Intervals [place] Rate: 64 P: 53 SD: 174 QRS: -6 QRSD: 98 T: -77 QT: 434 QTc: 447 Interpretive Statements Sinus rhythm with premature atrial complexes Low voltage QRS Cannot rule out Anterior infarct, age undetermined Abnormal ECG Electronically Signed On 03-23-2025 13:02:21 CDT by Inessa Zamarripa Procedure Note Provider, Historical - 03/23/2025 [address] [place] [address] Test Date: 2025-03-21 Pat Name: ISREAL CALLAWAY Department: 11 Room: Gender: Male Manager Of Medical: [id number] : 1950 Requested By: Order Number: [id number] Reading : Inessa Zamarripa Measurements Intervals [place] Rate: 64 P: 53 SD: 174 QRS: -6 QRSD: 98 T: -77 [...] - 10.8 K/uL 02/19/2025 4:19 AM CDT [facility] RBC 3.83(L) 4.60 - 6.20 M/uL 02/19/2025 4:19 AM CDT [facility] HEMOGLOBIN 8.8(L) 14.0 - 18.0 g/dL 02/19/2025 4:19 AM T [facility] HEMATOCRIT 32.2(L) 41.0 - 53.0 % 02/19/2025 4:19 AM T [facility] MCV 84.1 84.0 - 103.0 fL 02/19/2025 4:19 AM CDT [facility] MCH 23.0(L) 27.0 - 34.0 pg 02/19/2025 4:19 AM CDT [facility] NETWORK MCHC 27.3(L) 30.0 - 35.0 g/dL 02/19/2025 4:19 AM T [facility] PLATELETS 389 140 - 440 K/uL 02/19/2025 4:19 AM T [facility] MPV 9.6 8.9 - 12.8 fL 02/19/2025 4:19 AM [facility] RDW 17.6(H) 11.0 - 14.5 % 02/19/2025 4:19 AM T [facility] RDW-STDEV 53.8 37.0 - 54.0 fL 02/19/2025 4:19 AM [facility] Blood Venipuncture / Unknown 02/19/2025 3:46 AM CDT 02/19/2025 4:14 AM CDT us Lokesh Mckeon MD HEMATOLOGY ORDERABL ES Final Result [facility] CLIA # [id number] [address] [address] [place] [address] * (ABNORMAL) LIPID PANEL (02/17/2025 6:19 AM CDT) Only the most recent of2 resultswithin the time period is included. [facility] Signature CHOLESTEROL 90 <200 mg/dL 02/17/2025 7:17 AM CDT [facility] TRIGLYCERIDE 118 <150 mg/dL 02/17/2025 7:17 AM CDT [facility] HDL 27(L) 40 - 59 mg/dL 02/17/2025 7:17 AM CDT [facility] LDL CALCULATED 39 <100 mg/dL 02/17/2025 7:17 AM T [facility] NON-HDL CHOLESTEROL 63 <130 mg/dL 02/17/2025 7:17 AM T [facility] Blood Venipuncture / Unknown 02/17/2025 6:19 AM CDT 02/17/2025 6:28 AM CDT Narrative [facility] - 02/17/2025 7:17 AM CDT TOTAL CHOLESTEROL [...] Reference Ranges for Lipid Panels (NCEP/AMA) . Minerva Bunch NP CHEMISTRY ORDERABLES Final Result Performing Organization Address [facility] Co de Phone Number [facility] CLIA # [id number] [address] [place] [address] [place], [place] [address] * PHOSPHORUS (02/15/2025 3:40 AM CDT) Only the most recent of2 resultswithin the time period is included. [facility] PHOSPHORUS 3.0 2.5 - 4.5 mg/dL 02/15/2025 4:20 AM CDT [facility] Blood Venipuncture / Unknown 02/15/2025 3:40 AM CDT 02/15/2025 3:46 AM CDT us Garrett Monroe MD CHEMISTRY ORDERABLES Final Resu lt Performing Organization Address [facility] Co de Phone Number [facility] CLIA # [id number] [address] [place] [address] * (ABNORMAL) PNEUMONIA PATHOGEN PCR PANEL (02/14/2025 9:40 AM CDT) [facility] Pseudomonas aeruginosa by PCR DETECTED( A) Not Detected 02/14/2025 2:17 PM CDT [facility] Sputum SPUTUM SPECIMEN OBTAINED BY ASPIRATION / Unknown Collection / Unknown 02/14/2025 9:40 AM CDT 02/14/2025 9:46 AM CDT Narrative [facility] - 02/14/2025 2:17 PM CDT NOTE: Per the public works laborer, this current lot of reagent may be insensitive for the full detection of adenoviruses. If adenovirus is within the differential diagnosis, the specimen may be submitted to a reference laboratory for further testing. If desired, order [id number] Lab Test, stating Adenovirus by PCR testing [...] MICROBIOLOGY - GENERAL ORDERABL ES Final Result [facility] CLIA # [id number] [address] [place] [address] * (ABNORMAL) SPUTUM CULTURE WITH GRAM STAIN (02/14/2025 9:40 AM CDT) CULTURE PSEUDOMONAS AERUGINOSA(A) MIKAL MCG/ML 02/17/2025 8:36 AM CDT [facility] GRAM STAIN Smear contains </=10 squamous epithelial cells per low power field 02/17/2025 8:36 AM CDT [facility] GRAM STAIN <25 PMN WBC/LPF 8:36 AM CDT [facility] GRAM STAIN No organisms observed 02/17/2025 8:36 AM CDT [facility] Sputum SPUTUM SPECIMEN OBTAINED BY ASPIRATION / [...] with an infectious diseases specialist is recommended. Kristen Simpson NP MICROBIOLOGY - GENERAL ORDERABL ES Final Result Performing Organization Address [facility] Co de Phone Number [facility] CLIA # [id number] [facility] [address] [place] [address] * (ABNORMAL) POC ACTIVATED CLOTTING TIME (02/14/2025 2:01 AM CDT) Only the most recent of2 resultswithin the time period is included. [facility] Signature ACTIVATED CLOTTING TIME POC 297(H) 116 - 140 sec 02/14/2025 2:01 AM CDT [facility] [employer] [facility] Blood 02/14/2025 2:01 AM CDT 02/14/2025 2:55 PM CDT Garrett Monroe MD POINT OF CARE TESTING Final Res ult Performing Organization Address [facility] de Phone Number [facility] CLIA # [id number] [facility] [address] * LEFT HEART CATH, PERCUTANEOUS CORONARY INTERVENTION, CORONARY ATHERECTOMY, IVUS-CORONARY INTRAVASCULAR (02/14/2025 2:00 AM CDT) 02/14/2025 1:21 AM CDT Narrative [facility] - 02/14/2025 2:16 AM CDT Ost Cx to Prox Cx lesion is 95% stenosed. 1st Mrg lesion is 100% stenosed. Lat 1st Mrg lesion is 100% stenosed. Prox LAD lesion is 35% stenosed. Prox RCA to Mid RCA lesion is 35% stenosed. Acute Mrg lesion is 100% stenosed. Ost Cx to Prox Cx reduced to 0% stenosed. 1. Significant [place] coronary artery disease with a stent. Late presentation [place]. Patient is now status post successful IVUS [...] document were created through the use of [employer] farmer software. Effort has been made to ensure accuracy of the hydrotel operator. Any obvious errors or omissions should be clarified with the author of the document. Coronary Findings Diagnostic Dominance: Right Left Main: The vessel is large. The vessel exhibits minimal luminal irregularities. Left Anterior Descending: The vessel is large. There is mild diffuse disease in the vessel. The vessel is calcified. Prox LAD lesion is 35% stenosed. Not the culprit lesion. JDAE flow is 3. The lesion is calcified. [...] a STENT JAYY FRONTIER SANTIAGO 4.0X38MM RX [id number]. Post- Intervention Lesion Assessment: The intervention was [...] was used for local anesthesia. A 6 Hungarian sheath was placed in the access site [...] Note that patient is a late presentation [place] due to significant thrombus burden. The left [...] JADE flow postprocedure: 3 PCI risk: High Ryan Mathews MD CUP CATH ORDERABLES Final Res ult Performing Organization Address City/[facility]/ZIP Co de Phone Number [facility] CLIA [id number] [address] [facility] [facility] [address] [place] [address], * (ABNORMAL) TROPONIN 2 HR, 5TH GEN (02/14/2025 12:31 AM CDT) TROPONIN T, 2 HR 5TH GEN 2,305(HH) <=15 ng/L 02/14/2025 1:18 AM CDT [facility] DELTA 2HR TROPONIN T % 1 See Interp. % 02/14/2025 1:18 AM CDT [facility] Blood Venipuncture / Unknown 02/14/2025 12:31 AM CDT 02/14/2025 12:39 AM CDT Narrative [facility] - 02/14/2025 1:18 AM CDT Troponin elevated. Delta not changing. us Kim Wilkinson MD CHEMISTRY ORDERABLES Final Result Performing Organization Address [facility] Co de Phone Number [facility] CLIA # [id number] [address] [facility] [place] [address] * UNFRACTIONATED HEPARIN MONITORING (02/14/2025 12:28 AM CDT) ANTI-XA UNFRAC HEP <0.10 See Interpretation IU/mL 02/14/2025 12:58 AM CDT [facility] Blood Venipuncture / Unknown 02/14/2025 12:28 AM CDT 02/14/2025 12:38 AM CDT [facility] - 02/14/2025 12:58 AM CDT Therapeutic Range: PT/DVT Heparin Protocol 0.3 - 0.7 IU/ml Cardiac Heparin Protocol 0.3 - 0.6 IU/ml The reference range for this test is specific to the anticoagulant and is not appropriate for monitoring patients on a DOAC protocol. Kim Wilkinson MD HEMATOLOGY ORDERABLE S Final Result Performing Organization Address [facility] Co de Phone Number [facility] CLIA # [id number] [address] [address] * PTT (02/14/2025 12:28 AM CDT) PTT 31.2 24.8 - 37.2 seconds 02/14/2025 12:58 AM CDT [facility] Blood Venipuncture / Unknown 02/14/2025 12:28 AM CDT 02/14/2025 12:38 AM CDT [facility] - 02/14/2025 12:58 AM CDT Therapeutic Range: Hi-level PE/DVT heparin protocol 80.1 - 95.0 sec Lo-level PE/DVT heparin protocol 70.1 - 85.0 sec Cardiac Heparin Protocol 70.1 - 100.0 sec Kim Wilkinson MD HEMATOLOGY ORDERABLE S Final Result Performing Organization Address City/[facility]/ZIP Co de Phone Number [facility] CLIA # [id number] [address] [address] * HEMOGLOBIN A1C (02/11/2025) ABSTRACTED HGB A1C 5.5 % Blood 02/11/2025 us Abstract Provider CHEMISTRY ORDERABLES Final Res ult * ENDOSCOPY, COLON, SCREENING (07/11/2013 12:39 PM PHOTOGRAPHERS' MODEL) 07/11/2013 12:3 9 PM PHOTOGRAPHERS' MODEL Narrative Procedure Note Demetri Chávez MD - 07/10/2013 12:00 AM CST Procedures signed by Demetri Chávez MD at 07/11/2013 12:39 PM Author: Demetri Chávez MD Service: -- Author Type: Physician Filed: 07/11/2013 12:39 PM Date of Service: 07/10/2013 5:25 PM Status:Signed Specimen Boss: Demetri Chávez MD (Physician) Procedure Orders 1. ENDOSCOPY, COLON, MEDICARE SCREENING (WELLNESS) [[id number]] ordered byat 07/01/13 [address] [place], [place] Patient: ISREAL ARGUELLO CSN: [id number] : 1950 Provider: Demetri Chávez MD ENDOSCOPY [...] otherwise unremarkablecolonoscopy. Demetri Chávez MD MMODL D: [id number] V: [id number] cc: Roshan Jimenez DO Roshan Jimenez DO GI PROCEDURE ORDERABLES Fin al Result Performing Organization Address City/State/[facility] Co de Phone Number [facility] from Last 3 Months or Most Recently Relevant to Health Maintenance Insurance [place]ICAID [place] MEDICARE PART A AND B RX [employer] RX Member Subscriber Plan / Payer (Ef fective 2023-Present) Name:Isreal Arguello Gui Relation to Subscriber:Self Name:Isreal Arguello Gui Payer ID:Not on file Group ID:[id number] Type:RX Commercial Address: [address] Advance Directives For more information, please contact: [phone] * NO CPR (In Event of Cardiopulmonary [...]
--- OUTSIDE RECORDS SUMMARY | 2025-05-03 23:07 | XMS_ITS | Encounter Summary ---
Author Organization [facility] Address [address] [place] [address] Care Team Providers Care Talent Buyer Name Role Phone Roshan Jimenez DO Primary Care Provider Unav ailable Encounter Details Date Type Department Care Team (Late st Contact Info) Description 05/27/2008 Outpatient Historical [facility] [address] [place] [address] Yusef Malagon MD NO ADDRESS ON FILE Social History Tobacco Use Types Packs/Day Years Used Date Smoking Tobacco: Every Day Cigarettes 1 40 Alcohol Use Standard Drinks/Week Comments No 0 (1 standard drink = 0.6 oz pur e alcohol) Sex and Gender Information Value Date Recorded Sex Assigned at Not on file 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 Gender Identity Not on file Sexual Orientation [...] 10:56 AM CDT) NITRITE UA NEGATIVE NEGATIVE [facility] UROBILINOGEN UA 0.2 0.2 [facility] CLARITY UA Clear Clear [facility] GLUCOSE UA NEGATIVE NEGATIVE [facility] SPECIFIC GRAVITY UA 1.005 <=1.005 [facility] PH UA 6.0 5.0 - 9.0 [facility] BILIRUBIN UA NEGATIVE NEGATIVE [facility] LEUKOCYTE ESTERASE UA NEGATIVE NEGATIVE [facility] MICRO EXAM No No [facility] KETONES UA NEGATIVE NEGATIVE [facility] COLOR UA Pale Yellow Straw [facility] PROTEIN UA NEGATIVE NEGATIVE [facility] BLOOD UA NEGATIVE NEGATIVE [facility] Urine specimen (specimen) 05/27/2008 10:56 AM CDT 05/27/2008 10:56 AM CDT us Yusef Malagon MD URINE ORDERABLES Final Result Performing Organization Address City/State/[facility] Co de Phone Number INTERFACE SYSTEM Refer to clinic/hospital department [facility] CLIA# [id number] [address] [place] [address] * CBC WITH DIFFERENTIAL (05/27/2008 10:53 AM CDT) HEMATOCRIT 50.0 41.0 - 53.0 % [facility] PLATELETS 245 140 - 440 K/ul [facility] EOSINOPHILS 3.7 0.0 - 7.0 % [facility] WBC 8.5 4.8 - 10.8 K/ul [facility] EOSINOPHIL ABSOLUTE 0.3 0.0 - 0.7 K/ul [facility] RBC 5.00 4.60 - 6.20 Mil/ul [facility] MCHC 33.0 30.0 - 35.0 g/dL [facility] LYMPHOCYTES 25.7 24.0 - 44.0 % [facility] MONOCYTE ABSOLUTE 0.5 0.1 - 0.6 K/ul [facility] BASOPHILS ABSOLUTE 0.1 0.0 - 0.2 K/ul [facility] MCV 100.0 84.0 - 103.0 Fl [facility] BASOPHILS 0.7 0.0 - 1.0 % [facility] MPV 11.7 8.9 - 12.8 Fl [facility] HEMOGLOBIN 16.5 14.0 - 18.0 g/dL [facility] MONOCYTES 5.8 2.0 - 10.0 % [facility] RDW 14.3 11.0 - 14.5 % [facility] LYMPHOCYTE ABSOLUTE 2.2 1.2 - 4.0 K/ul [facility] NEUTROPHILS 64.1 42.2 - 75.2 % [facility] MCH 33.0 27.0 - 34.0 pg [facility] NEUTROPHIL ABSOLUTE 5.4 2.0 - 8.0 K/ul [facility] Blood specimen (specimen) 05/27/2008 10:53 AM CDT 05/27/2008 11:08 AM CDT us Yusef Malagon MD HEMATOLOGY ORDERABLES Final Re sult Performing Organization Address City/[facility] Co de Phone Number INTERFACE SYSTEM Refer to clinic/hospital department [facility] CLIA# [id number] [address] [place] [address] * ANTIBODY SCREEN (05/27/2008 10:53 AM CDT) ANTIBODY SCREEN Negative [facility] Blood specimen (specimen) 05/27/2008 10:53 AM CDT 05/27/2008 11:08 AM CDT us Yusef Malagon MD BLOOD BANK ORDERABLES Final Re sult Performing Organization Address City/[facility] Co de Phone Number INTERFACE SYSTEM Refer to clinic/hospital department [facility] CLIA# [id number] [address] [place] [address] * ABORH TYPING (05/27/2008 10:53 AM CDT) ABO/RH TYPE O Positive [facility] Blood specimen (specimen) 05/27/2008 10:53 AM CDT 05/27/2008 11:08 AM CDT us Yusef Malagon MD BLOOD BANK ORDERABLES Final Re sult Performing Organization Address [facility] Phone Number INTERFACE SYSTEM Refer to clinic/hospital department [facility] CLIA# [id number] [address] [place] [address] * BASIC METABOLIC PANEL (05/27/2008 10:53 AM CDT) POTASSIUM 4.0 3.5 - 5.0 mEq/L [facility] CO2 29 22 - 32 mmol/l [facility] CHLORIDE 109 95 - 110 mEq/L [facility] OSMOLALITY, CALCULATED 294 275 - 295 mOsm/Kg [facility] CREATININE 1.0 0.7 - 1.5 mg/dL [facility] CALCIUM 9.4 8.4 - 10.5 mg/dL [facility] SODIUM 143 136 - 145 mEq/L [facility] GLUCOSE 88 70 - 110 mg/dL [facility] ANION GAP 9 9 - 20 mEq/L [facility] BUN 16 9 - 20 mg/dL [facility] Blood specimen (specimen) 05/27/2008 10:53 AM CDT 05/27/2008 11:08 AM CDT us Yusef Malagon MD CHEMISTRY ORDERABLES Final Res ult Performing Organization Address [facility] de Phone Number INTERFACE SYSTEM Refer to clinic/hospital department [facility] CLIA# [id number] [address] [place] [address] documented in this encounter Visit Diagnoses Not on filedocumented in this encounter Care Teams Talent Buyer Relationship Specialty Start Date End Date Roshan Jimenez DO NO ADDRESS ON FILE PCP - General 03/26/03 documented as of this encounter
--- OUTSIDE RECORDS SUMMARY | 2025-05-03 23:07 | XMS_ITS | Encounter Summary ---
Author Organization [facility] Address [address] [place] [address] Care Team Providers Care Financial Assistance Specialist Name Role Phone Roshan Jimenez DO Primary Care Provider Unav ailable Encounter Details Date Type Department Care Team (Latest Contact Info) Description 04/18/2005 Outpatient [facility] [address] [place] [address] Roshan Jimenez DO NO ADDRESS ON FILE MORBID OBESITY ([facility]) (Primary Dx); SLEEP APNEA NOS; EDEMA; ASTHMA UNSPECIFIED Social History Tobacco Use Types Packs/Day Years Used Date Smoking Tobacco: Never Assessed Sex and Gender Information Value Date Recorded Sex Assigned at Not on file 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
--- OUTSIDE RECORDS SUMMARY | 2025-05-03 23:07 | XMS_ITS | Encounter Summary ---
Author Organization [facility] Address [address] [place] [address] Care Team Providers Care Guide Setter Name Role Phone Roshan Jimenez DO Primary Care Provider Unav ailable Encounter Details Date Type Department Care Team (Latest Contact Info) Description 01/01/2007 Outpatient Historical [facility] [address] [place] 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
--- OUTSIDE RECORDS SUMMARY | 2025-05-03 23:07 | XMS_ITS | Encounter Summary ---
Author Organization [facility] Address [address] [place] [address] Care Team Providers Care Waiter/Waitress Informal Name Role Phone Roshan Jimenez DO Primary Care Provider Unav ailable Encounter Details Date Type Department Care Team (Latest Contact Info) Description 10/24/2006 Outpatient [facility] Ear, Nose and Throat [address] [place] 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
--- OUTSIDE RECORDS SUMMARY | 2025-05-03 23:07 | XMS_ITS | Encounter Summary ---
Author Organization [employer] [facility] Address [address] [place] [address] Care Team Providers Care Diamond Die Polisher Name Role Phone Roshan Jimenez DO Primary Care Provider Unav ailable Encounter Details Date Type Department Care Team (Latest Contact Info) Description 12/22/1999 Outpatient Historical [facility] [...] leg documented in this encounter Care Teams Diamond Die Polisher Relationship Specialty Start Date End Date Roshan Jimenez DO NO ADDRESS ON FILE PCP - General 03/26/03 documented as of this encounter
--- OUTSIDE RECORDS SUMMARY | 2025-05-03 23:07 | XMS_ITS | Encounter Summary ---
Author Organization [facility] Address [address] [place] [address] Care Team Providers Care Automotive Engineer Name Role Phone Roshan Jimenez DO Primary Care Provider Unav ailable Encounter Details Date Type Department Care Team (Latest Contact Info) Description 03/09/2005 Outpatient Historical [facility] [address] [place] [address] [place] [address] Zofia Gleason, LOADER OPERATOR [address] [place] [address] HYPERSOMNI W SLEEP APNEA (Primary Dx) Social History Tobacco Use Types Packs/Day Years Used Date Smoking Tobacco: Never Assessed Sex and Gender Information Value Date Recorded Sex Assigned at Not on file 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
--- OUTSIDE RECORDS SUMMARY | 2025-05-03 23:07 | XMS_ITS | Encounter Summary ---
Author Organization [facility] Address [address] [place] [address] Care Team Providers Care Qual Research Manager Name Role Phone Roshan Jimenez DO Primary Care Provider Unav ailable Encounter Details Date Type Department Care Team (Latest Contact Info) Description 01/30/2002 [facility] [address] [place] [phone] Roshan Jimenez DO NO ADDRESS ON FILE CHRONIC AIRWAY OBSTRUCTION NEC ([facility]) (Primary Dx); HYPERTENSION NOS; OTHER UNSPEC SLEEP APNEA; OSTEOARTHROS NOS-UNSPEC Social History Tobacco Use Types Packs/Day Years Used Date Smoking Tobacco: Never Assessed Sex and Gender Information Value Date Recorded Sex Assigned at Not on file 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 Gender Identity Not on file Sexual Orientation Not on file documented as of this encounter Plan of Treatment Not on file documented as of this encounter Visit Diagnoses Diagnosis Chronic airway obstruction, not elsewhere classified ([facility])- Primary Chronic airway obstruction, not elsewhere classified Unspecified essential hypertension Unspecified sleep apnea Osteoarthrosis, unspecified whether generalized or localized, unspecified site documented in this encounter Care Teams Qual Research Manager Relationship Specialty Start Date End Date Roshan Jimenez DO NO ADDRESS ON FILE PCP - General 03/26/03 documented as of this encounter
--- OUTSIDE RECORDS SUMMARY | 2025-05-03 23:07 | XMS_ITS | Encounter Summary ---
Author Organization [facility] Address [address] [place] [address] Care Team Providers Care Needle Maker Name Role Phone Roshan Jimenez DO Primary Care Provider Unav ailable Encounter Details Date Type Department Care Team (Latest Contact Info) Description 06/24/1998 Outpatient Historical [facility] Axel Armstrong NO ADDRESS ON FILE Localized osteoarthrosis not specified whether primary or secondary, lower leg (Primary Dx) Social History Tobacco Use Types Packs/Day Years Used Date Smoking Tobacco: Never Assessed Sex and Gender Information Value Date Recorded Sex Assigned at Not on file 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
--- OUTSIDE RECORDS SUMMARY | 2025-05-03 23:07 | XMS_ITS | Encounter Summary ---
Author Organization [facility] Address [address] [place] [address] Care Team Providers Care Rip Sawyer Name Role Phone Roshan Jimenez DO Primary Care Provider Unav ailable Encounter Details Date Type Department Care Team (Latest Contact Info) Description 07/06/2000 Outpatient Historical [facility] Derm[facility]- [facility] Aaron [address] [place] [phone] Irineo Snyder MD NO ADDRESS ON FILE Hidradenitis (Primary Dx); Benign miguel skin trunk Social History Tobacco Use Types Packs/Day Years Used Date Smoking Tobacco: Never Assessed Sex and Gender Information Value Date Recorded Sex Assigned at Not on file 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
--- OUTSIDE RECORDS SUMMARY | 2025-05-03 23:07 | XMS_ITS | Encounter Summary ---
Author Organization [facility] Address [address] [place] [address] Care Team Providers Care Legislative Analyst Name Role Phone Roshan Jimenez DO Primary Care Provider Unav ailable Encounter Details Date Type Department Care Team (Latest Contact Info) Description 12/25/2000 Outpatient [facility] [address] [place] [address] Roshan Jimenez DO NO ADDRESS ON FILE Obstructive chronic bronchitis with exacerbation (CMS/HCC) (Primary Dx); Unspecified chronic bronchitis (CMS/HCC); Unspecified sleep apnea; Obesity, unspecified Social History Tobacco Use Types Packs/Day Years Used Date Smoking Tobacco: Never Assessed Sex and Gender Information Value Date Recorded Sex Assigned at Not on file 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 Sex Male 4:59 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 Gender Identity Not on file Sexual Orientation Not on file documented as of this encounter Plan of Treatment Not on file documented as of this encounter Visit Diagnoses Diagnosis Obstructive chronic bronchitis with exacerbation (CMS/HCC)- Primary Obstructive chronic bronchitis with exacerbation Unspecified chronic bronchitis (CMS/HCC) Unspecified chronic bronchitis Unspecified sleep apnea Obesity, unspecified documented in this encounter Care Teams Legislative Analyst Relationship Specialty Start Date End Date Roshan Jimenez DO NO ADDRESS ON FILE PCP - General 03/26/03 documented as of this encounter
--- OUTSIDE RECORDS SUMMARY | 2025-05-03 23:07 | XMS_ITS | Encounter Summary ---
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
--- OUTSIDE RECORDS SUMMARY | 2025-05-03 23:07 | XMS_ITS | Encounter Summary ---
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
--- OUTSIDE RECORDS SUMMARY | 2025-05-03 23:07 | XMS_ITS | Encounter Summary ---
Author Organization [facility] Address [address] [place] [address] Care Team Providers Care Truck Assembler Name Role Phone Roshan Jimenez DO Primary Care Provider Unav ailable Encounter Details Date Type Department Care Team (Latest Contact Info) Description 02/15/2005 Outpatient Historical [facility] [address] [place] [address] Roshan Jimenez DO NO ADDRESS ON FILE CORONARY ATHEROSCLER UNSPEC VESSEL (Primary Dx) Social History Tobacco Use Types Packs/Day Years Used Date Smoking Tobacco: Never Assessed Sex and Gender Information Value Date Recorded Sex Assigned at Not on file 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
--- OUTSIDE RECORDS SUMMARY | 2025-05-03 23:07 | XMS_ITS | Encounter Summary ---
Author Organization [facility] Address [address] 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
--- OUTSIDE RECORDS SUMMARY | 2025-05-03 23:07 | XMS_ITS | Encounter Summary ---
Author Organization [facility] Address [address] [place] [address] Care Team Providers Care Oil Sprayer Name Role Phone Roshan Jimenez DO Primary Care Provider Unav ailable Encounter Details Date Type Department Care Team (Latest Contact Info) Description 12/23/1998 Outpatient Historical [facility] Podiatry-[facility] [place] [address] [place] [address] Noé Rosa, DPM [address] [place] [address] Ingrowing nail (Primary Dx); Dermatophytosis of nail Social History Tobacco Use Types Packs/Day Years Used Date Smoking Tobacco: Never Assessed Sex and Gender Information Value Date Recorded Sex Assigned at Not on file Legal Sex Male 4:59 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
--- OUTSIDE RECORDS SUMMARY | 2025-05-03 23:07 | XMS_ITS | Encounter Summary ---
Author Organization [facility] Address [address] [place] [address] Care Team Providers Care Banbury Mill Operator Name Role Phone Roshan Jimenez DO Primary Care Provider Unav ailable Encounter Details Date Type Department Care Team (Latest Contact Info) Description 05/29/2001 Outpatient [facility] [address] [place] [address] Roshan Jimenez DO NO ADDRESS ON FILE Unspecified essential hypertension (Primary Dx); Depressive disorder, not elsewhere classified; Chronic airway obstruction, not elsewhere classified (CMS/HCC) Social History Tobacco Use Types Packs/Day Years Used Date Smoking Tobacco: Never Assessed Sex and Gender Information Value Date Recorded Sex Assigned at Not on file Legal Sex Male 4:59 AM 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
--- OUTSIDE RECORDS SUMMARY | 2025-05-03 23:07 | XMS_ITS | Encounter Summary ---
Author Organization [facility] Address [address] [place] [address] Care Team Providers Care Switchboard Mechanic Name Role Phone Roshan Jimenez DO Primary Care Provider Unav ailable Encounter Details Date Type Department Care Team (Latest Contact Info) Description 04/29/2005 Outpatient Historical [facility] [address] [place] [address] [place] [phone] Merlin Reilly MD NO ADDRESS ON FILE HYPERSOMNIA W SLEEP APNEA NOS (Primary Dx) Social History Tobacco Use Types Packs/Day Years Used Date Smoking Tobacco: Never Assessed Sex and Gender Information Value Date Recorded Sex Assigned at Not on file 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
--- OUTSIDE RECORDS SUMMARY | 2025-05-03 23:07 | XMS_ITS | Encounter Summary ---
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
--- OUTSIDE RECORDS SUMMARY | 2025-05-03 23:07 | XMS_ITS | Encounter Summary ---
Author Organization 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
--- OUTSIDE RECORDS SUMMARY | 2025-05-03 23:07 | XMS_ITS | Encounter Summary ---
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
--- OUTSIDE RECORDS SUMMARY | 2025-05-03 23:07 | XMS_ITS | Encounter Summary ---
Author Organization [facility] Address [address] [place] [address] Care Team Providers Care Rn Labor And Delivery Name Role Phone Roshan Jimenez DO Primary Care Provider Unav ailable Encounter Details Date Type Department Care Team (Latest Contact Info) Description 12/31/1997 Outpatient Historical [facility] Axel Armstrong NO ADDRESS ON FILE Localized osteoarthrosis not specified whether primary or secondary, lower leg (Primary Dx) Social History Tobacco Use Types Packs/Day Years Used Date Smoking Tobacco: Never Assessed Sex and Gender Information Value Date Recorded Sex Assigned at Not on file 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
--- OUTSIDE RECORDS SUMMARY | 2025-05-03 23:07 | XMS_ITS | Encounter Summary ---
Author Organization [facility] Address [address] [place] [address] Care Team Providers Care Pv Installer Tech Name Role Phone Roshan Jimenez DO Primary Care Provider Unav ailable Encounter Details Date Type Department Care Team (Latest Contact Info) Description 11/13/2002 Outpatient [facility] Podiatry-Stevo Bal [place] [address] [place] [address] Noé Rosa, DPM [address] [place] [address] Onychia of toe (Primary Dx); INGROWING NAIL Social History Tobacco Use Types Packs/Day Years Used Date Smoking Tobacco: Never Assessed Sex and Gender Information Value Date Recorded Sex Assigned at Not on file Legal Sex Male 4:59 AM STUCCO MASON Gender Identity Not on file Sexual Orientation Not on file documented as of this encounter Plan of Treatment Not on file documented as of this encounter Visit Diagnoses Diagnosis Onychia of toe- Primary Onychia and paronychia of toe Ingrowing nail documented in this encounter Care Teams Pv Installer Tech Relationship Specialty Start Date End Date Roshan Jimenez DO NO ADDRESS ON FILE PCP - General 03/26/03 documented as of this encounter
--- OUTSIDE RECORDS SUMMARY | 2025-05-03 23:07 | XMS_ITS | Encounter Summary ---
Author Organization [facility] Address [address] [place] [address] Care Team Providers Care Online Merchant Name Role Phone Roshan Jimenez DO Primary Care Provider Unav ailable Encounter Details Date Type Department Care Team (Latest Contact Info) Description 11/27/2002 Outpatient 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
--- OUTSIDE RECORDS SUMMARY | 2025-05-03 23:07 | XMS_ITS | Encounter Summary ---
Author Organization [facility] Address [address] [place] [address] Care Team Providers Care It Systems Analyst Consultant Name Role Phone Roshan Jimenez DO Primary Care Provider Unav ailable Encounter Details Date Type Department Care Team (Latest Contact Info) Description 06/19/1998 Outpatient [facility] [address] [place] [address] Roshan Jimenez DO NO ADDRESS ON FILE Obstructive chronic bronchitis without exacerbation (CMS/HCC) (Primary Dx); Tobacco use disorder; Obesity, unspecified; Unspecified essential hypertension Social History Tobacco Use Types Packs/Day Years Used Date Smoking Tobacco: Never Assessed Sex and Gender Information Value Date Recorded Sex Assigned at Not on file Legal Sex Male 4:59 AM HAND SPINNER Gender Identity Not on file Sexual Orientation Not on file documented as of this encounter Plan of Treatment Not on file documented as of this encounter Visit Diagnoses Diagnosis Obstructive chronic bronchitis without exacerbation (CMS/HCC)- Primary Obstructive chronic bronchitis without exacerbation Tobacco use disorder Obesity, unspecified Unspecified essential hypertension documented in this encounter Care Teams It Systems Analyst Consultant Relationship Specialty Start Date End Date Roshan Jimenez DO NO ADDRESS ON FILE PCP - General 03/26/03 documented as of this encounter
--- OUTSIDE RECORDS SUMMARY | 2025-05-03 23:07 | XMS_ITS | Encounter Summary ---
Author Organization [facility] Address [address] [place] [address] Care Team Providers Care Rn Field Name Role Phone Roshan Jimenez DO Primary Care Provider Unav ailable Encounter Details Date Type Department Care Team (Latest Contact Info) Description 03/22/2000 Outpatient Historical [facility] [address] [place] [address] Roshan Jimenez DO NO ADDRESS ON FILE Unspecified essential hypertension (Primary Dx); Chronic airway obstruction, not elsewhere classified (CMS/HCC); Transient tic disorder; Osteoarthrosis, unspecified whether generalized or localized, unspecified site Social History Tobacco Use Types Packs/Day Years Used Date Smoking Tobacco: Never Assessed Sex and Gender Information Value Date Recorded Sex Assigned at Not on file 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
--- OUTSIDE RECORDS SUMMARY | 2025-05-03 23:07 | XMS_ITS | Encounter Summary ---
Author Organization [facility] Address [address] [place] [address] Care Team Providers Care Transition Program Manager Name Role Phone Roshan Jimenez DO Primary Care Provider Unav ailable Encounter Details Date Type Department Care Team (Late st Contact Info) Description 12/30/2009 Ancillary Orders [facility] Orthoped[facility]- 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
--- OUTSIDE RECORDS SUMMARY | 2025-05-03 23:07 | XMS_ITS | Encounter Summary ---
Author Organization [facility] Address [address] [place] [address] Care Team Providers Care Manager Physical Name Role Phone Roshan Jimenez DO Primary Care Provider Unav ailable Encounter Details Date Type Department Care Team (Latest Contact Info) Description 04/03/2007 Outpatient [facility] [address] [place] [address] Roshan Jimenez DO NO ADDRESS ON FILE Unspecified Essential Hypertension (Primary Dx); Other Apnea of ; Obesity, Unspecified Social History Tobacco Use Types Packs/Day Years Used Date Smoking Tobacco: Never Assessed Sex and Gender Information Value Date Recorded Sex Assigned at Not on file 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
--- OUTSIDE RECORDS SUMMARY | 2025-05-03 23:08 | XMS_ITS | Encounter Summary ---
Author Organization [facility] Address [address] [place] [address] Care Team Providers Care End Worker Name Role Phone Unavailable Primary Care Provider Unavailabl e Encounter Details Date Type Department Care Team (Late st Contact Info) Description 05/01/2025 Orders Only [facility] Gastroenterology- [address] [address] Tiago Ryan MD [id number] [place] [address] Irritable bowel syndrome with diarrhea (Primary Dx); Chronic diarrhea Social History Tobacco Use Types Packs/Day Years [...] on file Legal Sex Male 12:11 AM BRACE MAKER Gender Identity Not on file Sexual Orientation Not on file documented as of this encounter Progress Notes * Elise Cooper RN - 05/01/2025 7:40 AM CDT Images from the original note were not included. Tiago Ryan MD Black, Cindy L, RN Please order deaminated gliadin antibodies, TTG IgA, and total IgA documented in this encounter Plan of Treatment Upcoming Encounters Date Type Department Care Team (Late st Contact Info) Description 07/09/2025 10:20 AM BRACE MAKER Office Visit [facility] [place] [facility] [address] [facility] [address] [place] [address] Saritha Horton FNP [address] [facility] [address] [place] [address] 10/24/2025 10:45 AM BRACE MAKER Office Visit [facility] [place] [facility] [address] [facility] [address] [place] [address] Dane Sierra MD [address] [facility] [address] [place] [address] Scheduled Orders Name Type Priority Associated Diagnoses Orde r Schedule GLIADIN ABS IGG/IGA Lab Routine Irritable bowel syndrome with diarrhea Chronic diarrhea Expected: 05/01/2025, Expires: 05/01/2026 TRANSGLUTAMINASE IGA ANTIBODY Lab Routine Irritable bowel syndrome with diarrhea Chronic diarrhea Expected: 05/01/2025 (Approximate), Expires: 08/29/2025 IGA Lab Routine Irritable bowel syndrome with diarrhea Chronic diarrhea Expected: 05/01/2025 (Approximate), Expires: 08/29/2025 documented as of this encounter Visit Diagnoses Diagnosis Irritable bowel syndrome with diarrhea- Primary Irritable bowel syndrome Chronic diarrhea Diarrhea documented in this encounter
--- OUTSIDE RECORDS SUMMARY | 2025-05-03 23:08 | XMS_ITS | Clinical Summary ---
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 Demetri Chávez MD MMODL D: [id number] V: [id number] cc: Roshan Jimenez DO Roshan Jimenez DO GI PROCEDURE ORDERABLES Fin al Result from Last 3 Months or Most Recently Relevant to Health Maintenance Insurance [place] [address] [place] [address] [id number] DUAL COMPLETE MCR HMO SNP Advance Directives For more information, please contact: [phone] * Full Code (Latest Code Status on [...] 12:22 PM 01/13/2010 11:02 PM Care Teams Live Ammunition Inspector Relationship Specialty Start Date End Date Roshan Jimenez DO NO ADDRESS ON FILE PCP - General 03/26/03
[2025-05-03 23:14] LABS: Hematocrit 32.6 % (37-53); Hemoglobin 8.80 g/dL (11.27-16.99); Mean Corpuscular HGB Conc 27.0 g/dL (30-55); Mean Corpuscular Hemoglobin 24.0 pg (27-33); Mean Corpuscular Volume 89.1 fl (82-101); Nucleated Red Blood Cells % 0.2 %; Platelet Count 306 10^3/cmm (157-399); Red Blood Count 3.66 10^6/uL (3.85-5.65); White Blood Count 8.60 10^3/uL (3.29-11.43)
[2025-05-03 23:33] LABS: Alanine Aminotransferase 6 U/L (0-41); Albumin Level 2.8 g/dL (3.5-5.2); Alkaline Phosphatase 125 U/L (40-130); Anion Gap 8.3 (5-19); Aspartate Amino Transferase 8 U/L (0-40); Blood Urea Nitrogen 13 mg/dL (8-23); Calcium 8.2 mg/dL (8.5-10.5); Carbon Dioxide 40 mmol/L (22-29); Chloride 97 mmol/L (98-107); Creatinine Clr Calc Pharmacy 106.6257; Globulin 5.6 g/dL (1.3-4.6); Glucose 106 mg/dL (65-115); Magnesium 2.5 mg/dL (1.7-2.3); Osmolality Calculated 293 mOsm/kg (285-295); Potassium 4.3 mmol/L (3.5-5.1); Sodium 141 mmol/L (136-145); Total Protein 8.4 g/dL (6.6-8.7)
[2025-05-03 23:39] LABS: ABG PH Result 7.35 (7.35-7.45); Arterial Blood Gas Hematocrit 27.8 % (42-52); Blood Gas Allen Test Pos; Blood Gas LPM 4.0 %; Blood Gas Operator Identificat gerca; Blood Gas Sample Site Radial, left; Blood Gas Sample Type Arterial; HCO3 ABG 42.7 mmol/L (22-26); PO2 ABG 100.0 mmHg (80.0-100.0); PO2 FiO2 Ratio Arterial Blood 277
[2025-05-03 23:40] LABS: ABG PCO2 77.4 mmHg (35-45)
--- NOTE | 2025-05-03 23:51 | W.ED.WEAKNES ---
HPI - Weakness General: Chief complaint: Weakness Stated complaint: WEAKNESS Time Seen by Provider: 05/03/25 22:54 History of Present Illness: Patient is an elderly individual who presents from a [facility] with a 4-5 day history of progressive weakness and acute confusion. The patient reports not knowing where they were earlier and states I didn't have no idea where I was at. Patient acknowledges feeling disoriented, stating Get in one room and turn around like it's somewhere else. The patient has chronic respiratory issues requiring oxygen therapy. They report chronic breathing difficulties but deny recent fever, vomiting, or diarrhea. T Patient denies significant cough or productive cough. The patient has an indwelling urinary catheter that was reportedly changed a few days ago. There is mention of possible blood issues, with the patient confirming previous blood transfusions. The patient's baseline mental status prior to this episode of confusion is unclear, but they now recognize being in the hospital. Related Data Home Medications ?Medication ?Instructions ?Recorded ?Confirmed albuterol sulfate 90 mcg/actuation 2 puff inhalation Q4H PRN 11/02/24 04/24/25 aerosol inhaler Shortness Of Breath Or Wheezing aluminum-mag hydroxide-simethicone 30 ml PO Q2H PRN 11/02/24 04/24/25 400 mg-400 mg-40 mg/5 mL oral susp indigeston/heartburn/gas (Mylanta Maximum Strength) bisacodyl 10 mg rectal suppository 10 mg UT .Q72H PRN Constipation 11/02/24 04/24/25 docusate sodium 100 mg capsule 100 mg PO BID 11/02/24 04/24/25 (Colace) ergocalciferol (vitamin D2) 1,250 50,000 mcg PO Q30D 11/02/24 04/24/25 mcg (50,000 unit) capsule fluticasone fur. 200 mcg-umeclid 1 inh inhalation DAILY 11/02/24 04/24/25 62.5 mcg-vilant 25 mcg inhalat.powder (Trelegy Ellipta) magnesium hydroxide 400 mg/5 mL 30 ml PO DAILY PRN Constipation 11/02/24 04/24/25 oral suspension (Milk of Magnesia) multivitamin 1 tab PO QAM 11/02/24 04/24/25 polyethylene glycol 3350 17 17 g PO DAILY PRN bowel management 11/02/24 04/24/25 gram/dose oral powder (Miralax) sennosides 8.6 mg tablet (senna) 8.6 mg PO DAILY PRN Constipation 11/02/24 04/24/25 acetaminophen 325 mg tablet 650 mg PO Q4H PRN elevated 12/06/24 04/24/25 (Tylenol) temp/pain loperamide 2 mg tablet (Imodium 2 mg PO Q6H PRN Diarrhea 01/28/25 04/24/25 A-D) oxycodone-acetaminophen 10 mg-325 1 tab PO Q6H PRN Pain 01/28/25 04/24/25 mg tablet albuterol sulfate 2.5 mg/3 mL 2.5 mg continuous nebulization 03/05/25 04/24/25 (0.083 %) solution for nebulization .TID PRN respitory failure atorvastatin 40 mg tablet 40 mg PO QAM 03/05/25 04/24/25 clopidogrel 75 mg tablet 75 mg PO DAILY 03/05/25 04/24/25 melatonin 3 mg tablet 6 mg PO BEDTIME PRN Insomnia 03/05/25 04/24/25 nitroglycerin 0.4 mg sublingual See Rx Instructions .Route .COMPLEX 03/05/25 04/24/25 tablet triamcinolone acetonide 0.5 % See Rx Instructions .Route .COMPLEX 03/05/25 04/24/25 topical cream bisacodyl 5 mg tablet 5 mg PO DAILY PRN Constipation 04/06/25 04/24/25 empagliflozin 10 mg tablet 10 mg PO DAILY 04/06/25 04/24/25 (Jardiance) fluoxetine 10 mg capsule 10 mg PO DAILY 04/06/25 04/24/25 fluoxetine 20 mg capsule 20 mg PO DAILY 04/06/25 04/24/25 gabapentin 300 mg capsule 300 mg PO BID 04/06/25 04/24/25 levothyroxine 50 mcg tablet 50 mcg PO DAILY 04/06/25 04/24/25 potassium chloride 10 mEq 10 meq PO BID 04/06/25 04/24/25 tablet,extended release(part/cryst) apixaban 5 mg tablet (Eliquis) 5 mg PO BID 04/24/25 04/24/25 aspirin 81 mg tablet 81 mg PO ONCE 04/24/25 04/24/25 spironolactone 50 mg tablet mg PO ONCE 04/24/25 04/24/25 Previous Rx's ?Medication ?Instructions ?Recorded Right cockup splint #1 ea 11/28/24 bumetanide 1 mg tablet 1 mg PO BID@0500,1700 #60 tabs 04/10/25 doxycycline hyclate 100 mg capsule 100 mg PO DAILY #14 caps 04/10/25 metoprolol succinate 25 mg 12.5 mg (1/2 x 25 mg) PO DAILY #30 04/10/25 tablet,extended release 24 hr tabs pantoprazole 40 mg tablet,delayed 40 mg PO BID #60 tabs 04/10/25 release sucralfate 100 mg/mL oral 1 g (10 mL) PO Q6H #420 mL 04/10/25 suspension Allergies Allergy/AdvReac Type Severity Reaction Status Date / Time broccoli Allergy ADR-Vomitin Verified 04/24/25 07:51 g PFSH ED PFSH: Medical History (Updated 05/04/25 @ 03:09 by Winston Chacon DO) Congestive heart failure Atrial fibrillation CKD (chronic kidney disease) History of deep vein thrombosis DNR (do not resuscitate) snf resident Morbid obesity with BMI of 40.0-44.9, adult COPD with acute exacerbation Open wound of right lower leg Open wound of left lower leg Pressure ulcer of right buttock, stage 3 Social History Smoking and tobacco/nicotine status: former use of tobacco/nicotine Physical Exam Const: GENERAL APPEARANCE: cooperative, ill appearing (Mildly) and frail appearing HENMT: COMMON NORMALS: normocephalic and atraumatic HEAD & SCALP: normocephalic and atraumatic FACE & SINUS: normal facial exam and face symmetric Eye: COMMON NORMALS: Equal, round and reactive pupils present and EOMs intact bilaterally PUPIL: Yes Equal, round and reactive pupils present Neck/C-Spine: GENERAL: Yes trachea midline Chest: CHEST: Yes Symmetrical chest wall rise Resp: EFFORT & INSPECTION: Yes tachypneic and Yes labored (Mildly) AUSCULTATION: rales Cardio: COMMON NORMALS: regular rate and regular rhythm RATE: regular rate RHYTHM: regular rhythm GI: COMMON NORMALS: Soft to palpation INSPECTION: Yes abdominal distension PALPATION: Yes Soft to palpation Extremity: NARRATIVE EXTREMITY EXAM: No lower extremity edema Neuro: BRET COMA SCALE: document GCS findings Bret coma scale eye opening: Spontaneous Bret coma scale verbal response: Orientated (Not to time) Bret coma scale motor response: Obey commands Bret coma scale total score: 15 Course Vital Signs: Vital signs: Vital Signs Temperature 98.2 F 05/03/25 22:52 Pulse Rate 72 05/04/25 02:15 Respiratory Rate 18 05/04/25 02:15 Blood Pressure 115/68 05/04/25 02:15 Pulse Oximetry 97 05/04/25 02:15 Oxygen Delivery Me thod Room Air 05/03/25 23:57 Oxygen Flow Rate 4 05/03/25 22:52 MDM - Weakness Medical Decision Making Patient with generalized weakness, shortness of breath. He has rales on exam. He is afebrile. His vitals are otherwise stable on 4 L. His hemoglobin is 8.8, which is essentially his baseline currently. Creatinine is 0.9. His pH is 7.35 with a pCO2 of 77. BiPAP was ordered. The patient refused the BiPAP. He is given 80 mg of Lasix IV. His CT of the head shows no acute findings. His chest x-ray shows pulmonary edema. His urinalysis is contaminated from indwelling catheter, but shows likely urinary tract infection. He was given Rocephin for this after blood cultures. Will be admitted for hypercapnic hypoxic respiratory failure, pulmonary edema. Will treat UTI. Hospitalist has been notified, and will see the patient. Lab Data 05/03/25 23:05 05/03/25 23:05 Radiology Impressions Chest X-Ray 05/03/25 23:07 IMPRESSION: 1. Findings concerning for congestive heart failure. Clinical correlation is recommended. 2. Additional findings as detailed in the body of the report. Head CT 05/03/25 23:07 IMPRESSION: 1. No evidence of acute intracranial hemorrhage, mass effect, or midline shift. 2. Borderline low-lying cerebellar tonsils approximately 5 mm below the level of the foramen magnum which could represent cerebellar ectopia or mild Chiari 1 malformation. MRI of the brain and cervical spine is recommended for further evaluation. 3. There is a partially empty sella. Laboratory Results WBC 8.60 10^3/uL (3.29-11.43) 05/03/25 23:05 RBC 3.66 10^6/uL (3.85-5.65) L 05/03/25 23:05 Hgb 8.80 g/dL (11.27-16.99) L 05/03/25 23:05 Hct 32.6 % (37-53) L 05/03/25 23:05 MCV 89.1 fl (82-101) 05/03/25 23:05 MCH 24.0 pg (27-33) L 05/03/25 23:05 MCHC 27.0 g/dL (30-55) L 05/03/25 23:05 RDW 19.5 % (12.1-15.1) H 05/03/25 23:05 Plt Count 306 10^3/cmm (157-399) 05/03/25 23:05 MPV 10.2 fL (7.4-10.4) 05/03/25 23:05 Neut % (Auto) 71.2 % 05/03/25 23:05 Lymph % (Auto) 14.2 % 05/03/25 23:05 Weston % (Auto) 10.0 % 05/03/25 23:05 Eos % (Auto) 3.7 % 05/03/25 23:05 Baso % (Auto) 0.6 % 05/03/25 23:05 Neut # (Auto) 6.12 10^3/uL (1.8-7.7) 05/03/25 23:05 Lymph # (Auto) 1.2 10^3/uL (0.8-4.8) 05/03/25 23:05 Weston # (Auto) 0.9 10^3/uL (0.2-0.9) 05/03/25 23:05 Eos # (Auto) 0.3 10^3/uL (0.0-0.8) 05/03/25 23:05 Baso # (Auto) 0.1 10^3/uL (0.0-0.1) 05/03/25 23:05 Nucleated RBC % (auto) 0.2 % 05/03/25 23:05 Nucleated RBCs # 0.0 /100WBC 05/03/25 23:05 Specimen Type Arterial 05/03/25 23:28 Sample Site Radial, left 05/03/25 23:28 ABG pH 7.35 (7.35-7.45) 05/03/25 23:28 ABG pCO2 77.4 mmHg (35-45) H* 05/03/25 23:28 ABG pO2 100.0 mmHg (80.0-100.0) 05/03/25 23:28 ABG PO2/FiO2 Ratio 277 05/03/25 23:28 ABG HCO3 42.7 mmol/L (22-26) H 05/03/25 23:28 ABG Base Excess 14.7 mmol/L (-2.0-2.0) H 05/03/25 23:28 Ivan Test Pos 05/03/25 23: Hematocrit 27.8 % (42-52) L 05/03/25: O2 Delivery Device Nc 05/03/25 23: O2 Liters/Min 4.0 % 05/03/25: FiO2 36.0 % 05/03/25:28 Technical Expert ID [email or web address] 05/03/25:28 Sodium 141 mmol/L (136-145) 05/03/25 23:05 Potassium 4.3 mmol/L (3.5-5.1) 05/03/25 23:05 Chloride 97 mmol/L (98-107) L 05/03/25 23:05 Carbon Dioxide 40 mmol/L (22-29) H 05/03/25 23:05 Anion Gap 8.3 (5-19) 05/03/25 23:05 BUN 13 mg/dL (8-23) 05/03/25 23:05 Creatinine 0.9 mg/dL (0.7-1.2) 05/03/25 23:05 GFR Calculation Not Reportable 05/03/25 23:05 Glucose 106 mg/dL (65-115) 05/03/25 23:05 Calculated Osmolality 293 mOsm/kg (285-295) 05/03/25 23:05 Lactic Acid 1.0 mmol/L (0.5-2.2) 05/03/25 23:05 Calcium 8.2 mg/dL (8.5-10.5) L 05/03/25 23:05 Magnesium 2.5 mg/dL (1.7-2.3) H 05/03/25 23:05 Total Bilirubin 0.3 mg/dL (0.15-1.2) 05/03/25 23:05 AST 8 U/L (0-40) 05/03/25 23:05 ALT 6 U/L (0-41) 05/03/25 23:05 Alkaline Phosphatase 125 U/L (40-130) 05/03/25 23:05 C-Reactive Protein 14.6 mg/L (0.0-4.9) H 05/03/25 23:05 Total Protein 8.4 g/dL (6.6-8.7) 05/03/25 23:05 Albumin 2.8 g/dL (3.5-5.2) L 05/03/25 23:05 Globulin 5.6 g/dL (1.3-4.6) H 05/03/25 23:05 Urine Color Yellow (Yellow) 05/03/25 23:50 Urine Appearance Turbid (CLEAR) A 05/03/25 23:50 Urine pH >=9.0 (5-7) A 05/03/25 23:50 Ur Specific Wolcott 1.028 (1.005-1.030) 05/03/25 23:50 Urine Protein 3+ (Negative) A 05/03/25 23:50 Urine Glucose (UA) Trace (Normal) H 05/03/25 23:50 Urine Ketones Negative (Negative) 05/03/25 23:50 Urine Blood 1+ (Negative) A 05/03/25 23:50 Urine Nitrate Negative (Negative) 05/03/25 23:50 Urine Bilirubin Negative (Negative) 05/03/25 23:50 Urine Urobilinogen 1.0 mg/dL (Negative) 05/03/25 23:50 Ur Leukocyte Esterase 3+ (Negative) A 05/03/25 23:50 Urine RBC 51-100 /hpf (0-2) H 05/03/25 23:50 Urine WBC 21-50 /hpf (0-5) H 05/03/25 23:50 Ur Squamous Epith Cells 6-10 /hpf (0-5) 05/03/25 23:50 Triple Phos Crystals 25-40 /hpf H 05/03/25 23:50 Amorphous Sediment 3+ /hpf 05/03/25 23:50 Urine Bacteria 4+ /hpf (NONE) H 05/03/25 23:50 Hyaline Casts 75.25 /lpf 05/03/25 23:50 All radiology interpretation(s) finalized by discharge Discharge Plan Discharge Patient Disposition: Admitted As Inpatient Admit Provider: Pavithra Carranza Clinical Impression: Acute respiratory failure with hypoxia and hypercarbia, Anemia, Acute on chronic HFrEF (heart failure with reduced ejection fraction) Condition: Fair Coding Level of Care Code ED Rv Repair Technician for Chana Glass
[2025-05-03 23:57] VITALS: BP 132/78; PULSE 71; RESP 20; O2SAT 98
[2025-05-04] VITALS (15 sets, daily range): BP systolic 99–131; BP diastolic 54–81; PULSE 66–73; RESP 16–22; TEMP 36.3–36.9; O2SAT 93–98; BMI 40.4
[2025-05-04 00:01] LABS: Glucose Urine UA Trace (Normal); Nitrate Urine Negative (Negative); Specific Gravity, Urine 1.028 (1.005-1.030)
[2025-05-04 00:03] LABS: Lactic Sepsis W/Reflex 1.0 mmol/L (0.5-2.2)
[2025-05-04 00:39] LABS: UA Slide Review UA Slide Review Perf
[2025-05-04 00:45] LABS: Add Urine Microscopic? YES
[2025-05-04] MEDS: cefTRIAXone 1,000 mg SDV 1000 MG IVP (01:05)
[2025-05-04] MEDS: FUROsemide 10 mg/mL SDV 10mL 80 MG IVP (01:05)
--- NOTE | 2025-05-04 04:15 | PM.HP ---
Providers/Chief Complaint Admitting Physician: Pavithra Carranza MD Primary Care Provider: Otilio Huang Chief Complaint: WEAKNESS History of Present Illness Edson Jaffe is a 74 year old male with a past medical history of CAD s/p PCI most recently in January 2025, recent history of anemia, positive occult stool blood, requiring 4 units of blood, history of DVT/A-fib, was on Eliquis which is on hold, according to halfway patient is only on Plavix, not on aspirin, history of CHF, history of CKD, has chronic Robertson in place. He was recently admitted here in March for acute on chronic systolic heart failure exacerbation and after discussion with cardiology it was elected to maintain Plavix monotherapy given patient's high risk of recurrent bleeding. He is presenting from the halfway today with generalized weakness and confusion over the past 4 to 5 days. He is on 4 L/min supplemental O2 chronically. Patient denied any chest pain. He has a chronic indwelling Robertson catheter. Patient was noted to have chronic hypercapnic respiratory failure. He was initially short of breath upon arrival has received Lasix IV following which he has diuresed about 1300 cc. Review of Systems General: Reports: 10 or more systems reviewed and unremarkable except in HPI and below Const: Denies: fever(s), chills or body aches Eyes: Denies: change in vision, blurry vision or photophobia ENMT: Reports: hoarseness; Denies: throat pain, enlarged tonsils, odynophagia or nasal congestion Card: Denies: chest pain, palpitations, irregular heart rhythm, edema, swelling of feet/ankles, lightheadedness, pre-syncope, dyspnea on exertion or orthopnea Resp: Denies: dyspnea, productive cough, non-productive cough, wheezing, stridor, pain on inspiration, change in phlegm color, hemoptysis or chest congestion GI: Denies: abdominal pain, nausea, vomiting, hematemesis, coffee ground emesis, dysphagia, heartburn, diarrhea, constipation, GI cramping, change in stool character, hematochezia or melena : Denies: flank pain, dysuria, urinary frequency, urinary urgency, urinary hesitancy or hematuria Musc: Denies: neck pain, back pain, extremity pain, joint swelling, joint warmth or deformity Neuro: Denies: headache(s), numbness in extremities, weakness in extremities, sensory changes, difficulty walking, frequent falls, dizziness, vertigo, behavioral changes, Slurred speech present or seizure-like activity Psych: Denies: anxiety, depression, suicidal ideation or homicidal ideation Endo: Denies: polyuria, polydipsia, tired all the time, cold intolerance or hot flashes Tyrell/Lymph: Denies: easy bruising or easy bleeding Medications/Allergies Home Medications ?Medication ?Instructions ?Recorded ?Confirmed ?Last Taken ?Type albuterol sulfate 90 mcg/actuation 2 puff inhalation Q4H PRN 11/02/24 04/24/25 12/05/24 History aerosol inhaler Shortness Of Breath Or Wheezing aluminum-mag hydroxide-simethicone 30 ml PO Q2H PRN 11/02/24 04/24/25 04/05/25 History 400 mg-400 mg-40 mg/5 mL oral susp indigeston/heartburn/gas (Mylanta Maximum Strength) bisacodyl 10 mg rectal suppository 10 mg DC .Q72H PRN Constipation 11/02/24 04/24/25 Unknown History docusate sodium 100 mg capsule 100 mg PO BID 11/02/24 04/24/25 04/05/25 History (Colace) ergocalciferol (vitamin D2) 1,250 50,000 mcg PO Q30D 11/02/24 04/24/25 03/28/25 History mcg (50,000 unit) capsule fluticasone fur. 200 mcg-umeclid 1 inh inhalation DAILY 11/02/24 04/24/25 04/05/25 History 62.5 mcg-vilant 25 mcg inhalat.powder (Trelegy Ellipta) magnesium hydroxide 400 mg/5 mL 30 ml PO DAILY PRN Constipation 11/02/24 04/24/25 02/25/25 08:30 History oral suspension (Milk of Magnesia) multivitamin 1 tab PO QAM 11/02/24 04/24/25 04/05/25 History polyethylene glycol 3350 17 17 g PO DAILY PRN bowel management 11/02/24 04/24/25 11/20/24 History gram/dose oral powder (Miralax) sennosides 8.6 mg tablet (senna) 8.6 mg PO DAILY PRN Constipation 03/04/2104/24/25 02/09/25 History Right cockup splint #1 ea 11/28/24 04/24/25 Unknown Rx acetaminophen 325 mg tablet 650 mg PO Q4H PRN elevated 12/06/24 04/24/25 01/30/25 History (Tylenol) temp/pain loperamide 2 mg tablet (Imodium 2 mg PO Q6H PRN Diarrhea 01/28/25 04/24/25 02/01/25 History A-D) oxycodone-acetaminophen 10 mg-325 1 tab PO Q6H PRN Pain 01/28/25 04/24/25 03/04/25 16:30 History mg tablet albuterol sulfate 2.5 mg/3 mL 2.5 mg continuous nebulization 03/05/25 04/24/25 03/04/25 11:40 History (0.083 %) solution for nebulization .TID PRN respitory failure atorvastatin 40 mg tablet 40 mg PO QAM 03/05/25 04/24/25 04/05/25 History clopidogrel 75 mg tablet 75 mg PO DAILY 03/05/25 04/24/25 04/05/25 History melatonin 3 mg tablet 6 mg PO BEDTIME PRN Insomnia 03/05/25 04/24/25 Unknown History nitroglycerin 0.4 mg sublingual See Rx Instructions .Route .COMPLEX 03/05/25 04/24/25 Unknown History tablet triamcinolone acetonide 0.5 % See Rx Instructions .Route .COMPLEX 03/05/25 04/24/25 04/04/25 History topical cream bisacodyl 5 mg tablet 5 mg PO DAILY PRN Constipation 04/06/25 04/24/25 Unknown History empagliflozin 10 mg tablet 10 mg PO DAILY 04/06/25 04/24/25 04/05/25 History (Jardiance) fluoxetine 10 mg capsule 10 mg PO DAILY 04/06/25 04/24/25 04/05/25 History fluoxetine 20 mg capsule 20 mg PO DAILY 04/06/25 04/24/25 04/05/25 History gabapentin 300 mg capsule 300 mg PO BID 04/06/25 04/24/25 04/05/25 History levothyroxine 50 mcg tablet 50 mcg PO DAILY 04/06/25 04/24/25 04/05/25 History potassium chloride 10 mEq 10 meq PO BID 04/06/25 04/24/25 04/05/25 History tablet,extended release(part/cryst) bumetanide 1 mg tablet 1 mg PO BID@0500,1700 #60 tabs 04/10/25 04/24/25 Unknown Rx doxycycline hyclate 100 mg capsule 100 mg PO DAILY #14 caps 04/10/25 04/24/25 Unknown Rx metoprolol succinate 25 mg 12.5 mg (1/2 x 25 mg) PO DAILY #30 04/10/25 04/24/25 Unknown Rx tablet,extended release 24 hr tabs pantoprazole 40 mg tablet,delayed 40 mg PO BID #60 tabs 04/10/25 04/24/25 Unknown Rx release sucralfate 100 mg/mL oral 1 g (10 mL) PO Q6H #420 mL 04/10/25 04/24/25 Unknown Rx suspension apixaban 5 mg tablet (Eliquis) 5 mg PO BID 04/24/25 04/24/25 Unknown History aspirin 81 mg tablet 81 mg PO ONCE 04/24/25 04/24/25 Unknown History spironolactone 50 mg tablet mg PO ONCE 04/24/25 04/24/25 Unknown History Allergies Allergy/AdvReac Type Severity Reaction Status Date / Time broccoli Allergy ADR-Vomitin Verified 04/24/25 07:51 g PFSH Acute PFSH: Medical History Congestive heart failure Atrial fibrillation CKD (chronic kidney disease) History of deep vein thrombosis DNR (do not resuscitate) residential resident Morbid obesity with BMI of 40.0-44.9, adult COPD with acute exacerbation Open wound of right lower leg Open wound of left lower leg Pressure ulcer of right buttock, stage 3 Social History Smoking and tobacco/nicotine status: former use of tobacco/nicotine Vitals/I&O/Wt Last Vital Signs Temp 98.2 F 05/03/25 22:52 Pulse 72 05/04/25 02:15 Resp 18 05/04/25 02:15 BP 115/68 05/04/25 02:15 Pulse Ox 97 05/04/25 02:15 O2 Del Method Nasal Cannula 05/04/25 02:57 O2 Flow Rate 4 05/03/25 22:52 05/03/25 05/03/25 05/04/25 14:59 22:59 06:59 Intake Total 0 / 0 Balance 0 / 0 Weight last 48 hrs Weight 135.397 kg Weight 137.62 kg Physical Exam Narrative: General: No acute distress, AO x2-3 HEENT: PERRLA, pupils bilaterally equal and reactive, pallors not present Chest: crackles to auscultation B/L CVS: S1-S2 regular, no murmurs, no tachycardia, no gallops, no rubs Abdomen: Soft, nontender, no organomegaly, bowel sounds present Neuro: No focal deficits, no facial deformity, AO x3, power 5/5 in all limbs Extremities: 2+ pitting edema B/L Data 05/03/25 23:05 05/03/25 23:05 Micro: Microbiology 05/04/25 01:30 Blood Culture - Preliminary Blood SPECIMEN COLLECTED 05/04/25 01:25 Blood Culture - Preliminary Blood SPECIMEN COLLECTED ABG Interpretation 1: 05/03/25 23:28 ABG pH 7.35 ABG pCO2 77.4 H* ABG pO2 100.0 ABG HCO3 42.7 H ABG Base Excess 14.7 H Other data: Radiology Impressions Chest X-Ray 05/03/25 23:07 IMPRESSION: 1. Findings concerning for congestive heart failure. Clinical correlation is recommended. 2. Additional findings as detailed in the body of the report. Head CT 05/03/25 23:07 IMPRESSION: 1. No evidence of acute intracranial hemorrhage, mass effect, or midline shift. 2. Borderline low-lying cerebellar tonsils approximately 5 mm below the level of the foramen magnum which could represent cerebellar ectopia or mild Chiari 1 malformation. MRI of the brain and cervical spine is recommended for further evaluation. 3. There is a partially empty sella. Laboratory Results WBC 8.60 10^3/uL (3.29-11.43) 05/03/25 23:05 RBC 3.66 10^6/uL (3.85-5.65) L 05/03/25 23:05 Hgb 8.80 g/dL (11.27-16.99) L 05/03/25 23:05 Hct 32.6 % (37-53) L 05/03/25 23:05 MCV 89.1 fl (82-101) 05/03/25 23:05 MCH 24.0 pg (27-33) L 05/03/25 23:05 MCHC 27.0 g/dL (30-55) L 05/03/25 23:05 RDW 19.5 % (12.1-15.1) H 05/03/25 23:05 Plt Count 306 10^3/cmm (157-399) 05/03/25 23:05 MPV 10.2 fL (7.4-10.4) 05/03/25 23:05 Neut % (Auto) 71.2 % 05/03/25 23:05 Lymph % (Auto) 14.2 % 05/03/25 23:05 [place] % (Auto) 10.0 % 05/03/25 23:05 Eos % (Auto) 3.7 % 05/03/25 23:05 Baso % (Auto) 0.6 % 05/03/25 23:05 Neut # (Auto) 6.12 10^3/uL (1.8-7.7) 05/03/25 23:05 Lymph # (Auto) 1.2 10^3/uL (0.8-4.8) 05/03/25 23:05 [place] # (Auto) 0.9 10^3/uL (0.2-0.9) 05/03/25 23:05 Eos # (Auto) 0.3 10^3/uL (0.0-0.8) 05/03/25 23:05 Baso # (Auto) 0.1 10^3/uL (0.0-0.1) 05/03/25 23:05 Nucleated RBC % (auto) 0.2 % 05/03/25 23:05 Nucleated RBCs # 0.0 /100WBC 05/03/25 23:05 Specimen Type Arterial 05/03/25 23:28 Sample Site Radial, left 05/03/25: ABG pH 7.35 (7.35-7.45) 05/03/25: ABG pCO2 77.4 mmHg (35-45) H* 05/03/25 23:28 ABG pO2 100.0 mmHg (80.0-100.0) 05/03/25: ABG PO2/FiO2 Ratio 277 05/03/25 23:28 ABG HCO3 42.7 mmol/L (22-26) H 05/03/25 23:28 ABG Base Excess 14.7 mmol/L (-2.0-2.0) H 05/03/25 23:28 Ivan Test Pos 05/03/25 23:28 Hematocrit 27.8 % (42-52) L 05/03/25 23:28 O2 Delivery Device Nc 05/03/25 23:28 O2 Liters/Min 4.0 % 05/03/25 23: FiO2 36.0 % 05/03/25 23:28 Rubber Press Tender ID gerca 05/03/25 23:28 Sodium 141 mmol/L (136-145) 05/03/25 23:05 Potassium 4.3 mmol/L (3.5-5.1) 05/03/25 23:05 Chloride 97 mmol/L (98-107) L 05/03/25 23:05 Carbon Dioxide 40 mmol/L (22-29) H 05/03/25 23:05 Anion Gap 8.3 (5-19) 05/03/25 23:05 BUN 13 mg/dL (8-23) 05/03/25 23:05 Creatinine 0.9 mg/dL (0.7-1.2) 05/03/25 23:05 GFR Calculation Not Reportable 05/03/25 23:05 Glucose 106 mg/dL (65-115) 05/03/25 23:05 Calculated Osmolality 293 mOsm/kg (285-295) 05/03/25 23:05 Lactic Acid 1.0 mmol/L (0.5-2.2) 05/03/25 23:05 Calcium 8.2 mg/dL (8.5-10.5) L 05/03/25 23:05 Magnesium 2.5 mg/dL (1.7-2.3) H 05/03/25 23:05 Total Bilirubin 0.3 mg/dL (0.15-1.2) 05/03/25 23:05 AST 8 U/L (0-40) 05/03/25 23:05 ALT 6 U/L (0-41) 05/03/25 23:05 Alkaline Phosphatase 125 U/L (40-130) 05/03/25 23:05 C-Reactive Protein 14.6 mg/L (0.0-4.9) H 05/03/25 23:05 Total Protein 8.4 g/dL (6.6-8.7) 05/03/25 23:05 Albumin 2.8 g/dL (3.5-5.2) L 05/03/25 23:05 Globulin 5.6 g/dL (1.3-4.6) H 05/03/25 23:05 Urine Color Yellow (Yellow) 05/03/25 23:50 Urine Appearance Turbid (CLEAR) A 05/03/25 23:50 Urine pH >=9.0 (5-7) A 05/03/25 23:50 Ur Specific Merritt 1.028 (1.005-1.030) 05/03/25 23:50 Urine Protein 3+ (Negative) A 05/03/25 23:50 Urine Glucose (UA) Trace (Normal) H 05/03/25 23:50 Urine Ketones Negative (Negative) 05/03/25 23:50 Urine Blood 1+ (Negative) A 05/03/25 23:50 Urine Nitrate Negative (Negative) 05/03/25 23:50 Urine Bilirubin Negative (Negative) 05/03/25 23:50 Urine Urobilinogen 1.0 mg/dL (Negative) 05/03/25 23:50 Ur Leukocyte Esterase 3+ (Negative) A 05/03/25 23:50 Urine RBC 51-100 /hpf (0-2) H 05/03/25 23:50 Urine WBC 21-50 /hpf (0-5) H 05/03/25 23:50 Ur Squamous Epith Cells 6-10 /hpf (0-5) 05/03/25 23:50 Triple Phos Crystals 25-40 /hpf H 05/03/25 23:50 Amorphous Sediment 3+ /hpf 05/03/25 23:50 Urine Bacteria 4+ /hpf (NONE) H 05/03/25 23:50 Hyaline Casts 75.25 /lpf 05/03/25 23:50 A&P Assessment and plan 1. Acute on chronic HFrEF (heart failure with reduced ejection fraction): 2. Atrial fibrillation: 3. History of deep vein thrombosis: 4. Anemia: Plan: #Acute on chronic systolic CHF exacerbation. Patient is noted today to have increased lower extremity swelling, dyspneic on exam, chest x-ray showing findings concerning for congestive heart failure. He has noticeable pulmonary edema, increased pulmonary vascularity, small bilateral pleural effusions. Admit to CSU. Start Bumex 2 mg IV every 12 hours Monitor urine output and kidney function closely with initiation of IV diuresis. Last ejection fraction from a month ago with an estimated EF of 35 to 40%. Global left ventricular hypokinesia. Grade 1 diastolic dysfunction. Patient was attempted to be started on Entresto on last admission however this was eventually unable to be added given hypotension. Continue metoprolol telemetry notes intermittent occasional bigeminy. # History of coronary artery disease. Patient's last PCI was in January 2025 at [facility]. Given his chronic anemia, patient has been maintained on Plavix alone after discussion with cardiology on last visit. Previously he was on aspirin Plavix and Eliquis. He was recommended to follow-up with general surgery for colonoscopy and endoscopy, however it was deemed that risks of proceeding with endoscopic evaluation outweigh the benefits and therefore this was eventually deferred. At this time we will continue Plavix 75 mg p.o. alone. Lonstanding chronic anemia, On his previous admission he required 3 units of packed red blood cell transfusion. History of PCI within the last few months - Monitor hemoglobin, currently stable compared to previous admission Denies any obvious hematemesis or melena H/O DVT - Patient is off Eliquis currently for severe anemia. DNR/DNI PPx: off AC currently for severe anemia with GIBrecently - SCDs [place] PDMP PDMP Reviewed: Not Reviewed Attestations Medical Necessity Statement*: Greater than 2 midnight stay is anticipated Coding Level of Care Code Acute Code for Chg Fwd High MDM includes number and complexity of problems actively addressed during encounter, amount and/or complexity of data reviewed/ordered and described risk of complication, morbidity or mortality of management as documented Diagnoses Acute on chronic HFrEF (heart failure with reduced ejection fraction) I50.23 Atrial fibrillation I48.91 History of deep vein thrombosis Z86.718 Anemia D64.9
[2025-05-04] MEDS: bumetanide 0.25 mg/mL SDV 10 mL 2 MG IVP ×2 (08:31→22:29)
[2025-05-04] MEDS: metoprolol succinate ER (24 HR) 25 mg Tablet 12.5 MG PO (08:32)
[2025-05-04] MEDS: oxyCODONE-APAP 10-325 mg Tablet 1 TAB PO ×2 (08:37→15:50)
--- NOTE | 2025-05-04 09:19 | PC.PHAR ---
Heide Lewis faxed med list but we only received 1st and last page. Refaxing the whole med list 9:19AM 05/03/25
--- NOTE | 2025-05-04 10:01 | PC.PHAR ---
Discrepancy found on the Metoprolol-last verified 04/06/25. Pharmacy last filled Metoprolol Succ. ER 25mg once daily. Mar states Metoprolol Tart. 25mg 12.5mg once daily. Verified with Capo at [facility]-current med is Metoprolol Tart. 25mg-12.5mg once daily.
[2025-05-04] MEDS: mupirocin oint 22 gm 1 APPLIC TOPICAL ×2 (11:41→16:58)
--- NOTE | 2025-05-04 13:49 | USR_ITS ---
PROCEDURE INFORMATION: Exam: US Duplex Lower Extremity Veins, Bilateral Exam date and time: 05/04/2025 3:31 PM Age: 74 years old Clinical indication: Condition or disease; Other: History of dvt TECHNIQUE: Imaging protocol: Real-time duplex ultrasound of the bilateral extremities with 2-D wyatt scale, color Doppler flow and spectral waveform analysis including responses to compression and other maneuvers (when performed) with image documentation. Complete exam focused on the lower extremity veins. COMPARISON: CT bony pelvis [id number] 11/03/2024 9:57 AM FINDINGS: Right deep veins: There is partially occluding thrombus noted in the proximal portion of the right femoral vein. Left deep veins: There is partially occluding thrombus in the proximal, mid and distal left femoral vein. Superficial veins: Greater saphenous veins at the saphenofemoral junctions are patent bilaterally without thrombus. Soft tissues: Unremarkable. US/[place] [id number] IMPRESSION: 1. Proximal right femoral vein deep venous thrombosis. 2. Deep venous thrombosis involving the proximal, mid and distal left femoral vein.
[2025-05-04 14:24] LABS: Hematocrit 31.8 % (37-53); Hemoglobin 8.60 g/dL (11.27-16.99); Mean Corpuscular HGB Conc 27.0 g/dL (30-55); Mean Corpuscular Hemoglobin 24.4 pg (27-33); Mean Corpuscular Volume 90.1 fl (82-101); Nucleated Red Blood Cells % 0 %; Platelet Count 292 10^3/cmm (157-399); Red Blood Count 3.53 10^6/uL (3.85-5.65); White Blood Count 7.33 10^3/uL (3.29-11.43)
[2025-05-04 14:43] LABS: Alanine Aminotransferase 6 U/L (0-41); Albumin Level 2.6 g/dL (3.5-5.2); Alkaline Phosphatase 115 U/L (40-130); Anion Gap 7.7 (5-19); Aspartate Amino Transferase 9 U/L (0-40); Blood Urea Nitrogen 16 mg/dL (8-23); Calcium 8.0 mg/dL (8.5-10.5); Chloride 95 mmol/L (98-107); Creatinine Clr Calc Pharmacy 95.1233; Globulin 5.4 g/dL (1.3-4.6); Glucose 118 mg/dL (65-115); Osmolality Calculated 292 mOsm/kg (285-295); Potassium 3.7 mmol/L (3.5-5.1); Sodium 140 mmol/L (136-145); Total Protein 8.0 g/dL (6.6-8.7)
[2025-05-04 14:52] LABS: Carbon Dioxide 41 mmol/L (22-29)
--- NOTE | 2025-05-04 17:20 | CTR_ITS ---
PROCEDURE INFORMATION: Exam: CTA Chest With Contrast Exam date and time: 05/04/2025 6:02 PM Age: 74 years old Clinical indication: Shortness of breath; Prior surgery; Surgery date: 6+ months; Surgery type: Cardiac stents; Additional info: Elevated ddimer; SOB; Concern for pe TECHNIQUE: Imaging protocol: Computed tomographic angiography of the chest with contrast. Exam focused on the arteries. 3D rendering (Not supervised by radiologist): MIP and/or 3D reconstructed images were created by the technologist. Radiation optimization: All CT scans at this facility use at least one of these dose optimization techniques: automated exposure control; mA and/or kV adjustment per patient size (includes targeted exams where dose is matched to clinical indication); or iterative reconstruction. Contrast material: [id number]; Contrast volume: 87 ml; Contrast route: INTRAVENOUS (IV); COMPARISON: CT angio chest PE protcl [id number] 04/05/2025 10:01 PM RADIATION DOSE METRICS: Total DLP (mGy-cm): 588.51 FINDINGS: Pulmonary arteries: There are subsegmental pulmonary emboli in the lower lobes bilaterally. Aorta: There is no aortic aneurysm. Lungs: Left basal atelectasis. Patchy ground-glass opacification in the right upper lobe. There are a few scattered bilateral pulmonary nodules measuring less than 6 mm. Pleural spaces: Left pleural effusion. There is no pneumothorax. Heart: There is no cardiomegaly. There is no pericardial effusion. Heart RV/LV ratio: The RV/LV ratio is 0.7. Coronary arteries: Moderate coronary arterial calcification, indicating the presence of coronary artery disease. Lymph nodes: No pathologically enlarged lymph nodes (by short axis size criteria). Gallbladder and biliary ducts: Limited evaluation of the upper abdomen demonstrates patient is status post cholecystectomy. Bones/joints: No acute osseous abnormality. There is degenerative disease of the spine. Soft tissues: Unremarkable. CT/CT angio chest PE protcl [id number] IMPRESSION: 1. Subsegmental pulmonary emboli in the lower lobes bilaterally. There is no right heart strain. 2. Left pleural effusion with left basal atelectasis. 3. There are a few scattered bilateral pulmonary nodules measuring less than 6 mm. For patients at low risk (minimal or absent history of smoking and of other known risk factors), no routine follow-up is indicated. For patients at high risk (history of smoking or of other known risk factors), consider optional CT Chest at 12 months (Reference: Kwesi). 4. Moderate coronary arterial calcification, indicating the presence of coronary artery disease. If the patient has associated symptoms recommend management as per chest pain guidelines. If the patient is asymptomatic consider reviewing modifiable cardiovascular risk factors and managing as per guidelines for primary prevention REFERENCES: Kwesi Rodgers, et al. Guidelines for Management of Incidental Pulmonary Nodules Detected on CT Images: From the Fleischner Society 2017. Radiology. 2017;284(1):228-243.
--- NOTE | 2025-05-04 17:21 | PM.MISC ---
Miscellaneous Note Purpose of Documentation: Admitted overnight for H&P labs appreciated. Patiently comfortably in bed today. Complaining of difficulty in breathing. Denies any nausea vomiting, headache but complaining of occasional chest heaviness. Currently on 3 L. Blood pressure stable with mean artery pressure 65. D-dimer checked elevated. Lower limb Dopplers showing DVT of left femoral vein. Will check CTA. Start on heparin drip without bolus. Recent history of anemia. Surgery was consulted on admission who suggested outpatient workup for anemia. Check hemoglobin every 12 hours. Check stool for occult blood. Protonix 40 mg Q12, Carafate ACHS. Depending on the hemoglobin level going forward might have to consult surgery for EGD/colonoscopy. If no PE might have to consult cardiology for possible IVC filter placement. CODE STATUS: Discussed in detail with the patient. He does not want any kind of resuscitation. DNR/DNI Other Coding Information Prolonged care (total time indicated above or notated here) Medical Necessity Statement: Diagnosis of DVT, elevated dimer, possible PE, starting of heparin drip, management of recent anemia with Protonix and Carafate, review of chart
[2025-05-04] MEDS: heparin drip 25,000 UNIT/500 ML PREMIX 38 UNIT IV (17:33)
[2025-05-04] MEDS: sucralfate 1 gm/10 mL Oral Liq UDC PO ×2 (17:33→22:29)
--- NOTE | 2025-05-04 17:35 | PC.NURSE ---
per written order from Ivan Ellington, do not give patient a heparin bolus prior to starting the heparin drip.
[2025-05-04 17:57] LABS: Procalcitonin 0.07 ng/mL (0-0.5)
[2025-05-04] MEDS: iohexol 350 mg/mL 500 mL Btl (per mL) IV (18:06)
[2025-05-04] MEDS: morphine 4 mg/mL SDV 1 mL 2 MG IVP (20:10)
[2025-05-04 21:12] LABS: Hematocrit 32.8 % (37-53); Hemoglobin 8.80 g/dL (11.27-16.99)
[2025-05-04 23:29] LABS: Partial Thromboplastin Time 52.0 SECONDS (23.9-36.7)
[2025-05-05] VITALS (10 sets, daily range): BP systolic 104–129; BP diastolic 54–78; PULSE 66–74; RESP 17–26; TEMP 36.5–37.1; O2SAT 90–98
[2025-05-05] MEDS: heparin 5,000 unit/mL INJ 1 mL IVP (00:12)
[2025-05-05 05:28] LABS: Hematocrit 30.4 % (37-53); Hemoglobin 8.30 g/dL (11.27-16.99); Mean Corpuscular HGB Conc 27.3 g/dL (30-55); Mean Corpuscular Hemoglobin 23.6 pg (27-33); Mean Corpuscular Volume 86.6 fl (82-101); Nucleated Red Blood Cells % 0 %; Platelet Count 303 10^3/cmm (157-399); Red Blood Count 3.51 10^6/uL (3.85-5.65); White Blood Count 9.17 10^3/uL (3.29-11.43)
[2025-05-05 05:51] LABS: Magnesium 2.2 mg/dL (1.7-2.3)
[2025-05-05 05:53] LABS: Partial Thromboplastin Time 85.7 SECONDS (23.9-36.7); Procalcitonin 0.08 ng/mL (0-0.5)
[2025-05-05 06:19] LABS: Alanine Aminotransferase 6 U/L (0-41); Albumin Level 2.8 g/dL (3.5-5.2); Alkaline Phosphatase 120 U/L (40-130); Anion Gap 10.4 (5-19); Aspartate Amino Transferase 9 U/L (0-40); Blood Urea Nitrogen 17 mg/dL (8-23); Calcium 8.3 mg/dL (8.5-10.5); Carbon Dioxide 39 mmol/L (22-29); Chloride 94 mmol/L (98-107); Creatinine Clr Calc Pharmacy 86.3823; Globulin 5.4 g/dL (1.3-4.6); Glucose 99 mg/dL (65-115); Osmolality Calculated 290 mOsm/kg (285-295); Potassium 4.4 mmol/L (3.5-5.1); Sodium 139 mmol/L (136-145); Total Protein 8.2 g/dL (6.6-8.7)
[2025-05-05] MEDS: sucralfate 1 gm/10 mL Oral Liq UDC PO ×4 (06:34→22:31)
[2025-05-05] MEDS: mupirocin oint 22 gm 1 APPLIC TOPICAL ×2 (08:29→17:41)
[2025-05-05] MEDS: metoprolol succinate ER (24 HR) 25 mg Tablet 12.5 MG PO (08:29)
[2025-05-05] MEDS: bumetanide 0.25 mg/mL SDV 10 mL 2 MG IVP ×2 (11:06→22:12)
--- NOTE | 2025-05-05 11:50 | P.PN_ITS ---
Subjective 2 Subjective: Patient seen earlier today lying in bed eating. He had the plate on his abdomen and he was having no trouble eating. He is without complaints for me today. Vitals/I&O/Wt Last Vital Signs Temp 97.7 F 05/05/25 07:40 Pulse 71 05/05/25 09:40 Resp 18 05/05/25 09:40 BP 109/54 05/05/25 07:40 Pulse Ox 96 05/05/25 09:40 O2 Del Method Nasal Cannula 05/05/25 09:40 O2 Flow Rate 3 05/05/25 09:40 05/04/25 05/05/25 05/05/25 22:59 06:59 14:59 Intake Total 480 / 960 500.000 / 1460.000 Output Total 575 / 1075 800 / 1875 Balance -95 / -115 -300.000 / -415.000 Weight last 48 hrs Weight 135.125 kg Weight 135.125 kg Weight 135.397 kg Weight 137.62 kg Physical Exam 2 Narrative: Obese in no acute distress Heart regular normal S1-S2 without murmurs clicks gallops or rubs Lungs clear to auscultation anteriorly and posteriorly Abdomen obese soft nontender nondistended positive bowel sounds Extremities no significant edema Data 05/05/25 05:08 05/05/25 05:08 Micro: Microbiology 05/03/25 23:50 Urine Culture - Preliminary Urine,Clean Catch Gram Negative Rods 05/04/25 01:30 Blood Culture - Preliminary Blood NEGATIVE TO DATE 05/04/25 01:25 Blood Culture - Preliminary Blood NEGATIVE TO DATE A&P Assessment and plan 1. Acute on chronic HFrEF (heart failure with reduced ejection fraction): 2. Atrial fibrillation: 3. History of deep vein thrombosis: 4. Anemia: 5. Pulmonary embolism: 6. Dvt femoral (deep venous thrombosis): 7. UTI (urinary tract infection): 8. Acute respiratory failure with hypoxia and hypercarbia: Plan: # New venous thromboembolus with pulmonary embolus bilaterally - Patient had been off Eliquis due to recent anemia - He has been started on heparin - No oral anticoagulant has been initiated at this time #Acute on chronic systolic CHF exacerbation. Patient is noted today to have increased lower extremity swelling, dyspneic on exam, chest x-ray showing findings concerning for congestive heart failure. He has noticeable pulmonary edema, increased pulmonary vascularity, small bilateral pleural effusions. -Continue Bumex 2 mg IV every 12 hours - Monitor urine output and kidney function closely with initiation of IV diuresis. - NOTE: Last ejection fraction from a month ago with an estimated EF of 35 to 40%. Global left ventricular hypokinesia. Grade 1 diastolic dysfunction. - Patient was attempted to be started on Entresto on last admission however this was eventually unable to be added given hypotension. - Continue metoprolol telemetry notes intermittent occasional bigeminy. # History of coronary artery disease. Patient's last PCI was in January 2025 at [facility]. Given his chronic anemia, patient has been maintained on Plavix alone after discussion with cardiology on last visit. Previously he was on aspirin Plavix and Eliquis. He was recommended to follow-up with general surgery for colonoscopy and endoscopy, however it was deemed that risks of proceeding with endoscopic evaluation outweigh the benefits and therefore this was eventually deferred. At this time we will continue Plavix 75 mg p.o. alone. Lonstanding chronic anemia, On his previous admission he required 3 units of packed red blood cell transfusion. History of PCI within the last few months - Monitor hemoglobin, currently stable compared to previous admission Denies any obvious hematemesis or melena H/O DVT - Patient is off Eliquis currently for severe anemia. DNR/DNI PPx: off AC currently for severe anemia with GIBrecently - SCDs OK Would like to speak with patient and family about long-term goals and considerations for risk and benefits to anticoagulation. I have called the number to notify next of kin and I did not get any connection. I called the other sister and left a message PDMP PDMP Reviewed: Not Reviewed Attestations 2 Medical Necessity Statement*: Greater than 2 midnight stay is anticipated Coding Level of Care Code Acute Code for Chg Fwd Diagnoses Acute on chronic HFrEF (heart failure with reduced ejection fraction) I50.23 Atrial fibrillation I48.91 History of deep vein thrombosis Z86.718 Anemia D64.9 Pulmonary embolism I26.99 Dvt femoral (deep venous thrombosis) I82.419 UTI (urinary tract infection) N39.0 Acute respiratory failure with hypoxia and hypercarbia J96.01; J96.02
[2025-05-05 12:59] LABS: Partial Thromboplastin Time 92.4 SECONDS (23.9-36.7)
[2025-05-05] MEDS: heparin drip 25,000 UNIT/500 ML PREMIX 31 UNIT IV ×2 (13:45→23:16)
[2025-05-05 19:26] LABS: Partial Thromboplastin Time 59.1 SECONDS (23.9-36.7)
[2025-05-06] VITALS (8 sets, daily range): BP systolic 92–124; BP diastolic 45–66; PULSE 65–79; RESP 16–20; TEMP 36.6–37.1; O2SAT 92–99
[2025-05-06 04:25] LABS: Platelet Count 288 10^3/cmm (157-399)
--- NOTE | 2025-05-06 04:34 | PC.NURSE ---
Contacted MD about patient complaining about dry itching eyes, MD ordered artificial tears, 2 drops as needed every 4 hours.
[2025-05-06 04:47] LABS: Magnesium 2.3 mg/dL (1.7-2.3)
[2025-05-06 04:49] LABS: Partial Thromboplastin Time 82.4 SECONDS (23.9-36.7)
[2025-05-06] MEDS: artificial tears Op Soln 15 mL Btl 2 DROP EYE-BOTH (06:28)
[2025-05-06] MEDS: sucralfate 1 gm/10 mL Oral Liq UDC PO ×3 (06:28→17:38)
[2025-05-06] MEDS: metoprolol succinate ER (24 HR) 25 mg Tablet 12.5 MG PO (08:12)
[2025-05-06] MEDS: mupirocin oint 22 gm 1 APPLIC TOPICAL (08:12)
[2025-05-06] MEDS: bumetanide 0.25 mg/mL SDV 10 mL 2 MG IVP (10:21)
[2025-05-06 12:53] LABS: Partial Thromboplastin Time 71.6 SECONDS (23.9-36.7)
--- NOTE | 2025-05-06 12:55 | PM.DCS ---
Discharge Providers Date of Admission: 05/04/25 01:02 Date of Discharge: May 06, 2025 Attending Provider at Admission: Pavithra Carranza MD Attending Provider at Discharge: Obinna Samaniego DO Primary Care Provider: Otilio Huang Diagnoses at Discharge Discharge Diagnosis 1. Acute on chronic HFrEF (heart failure with reduced ejection fraction): 2. Atrial fibrillation: 3. History of deep vein thrombosis: 4. Anemia: 5. Pulmonary embolism: 6. Dvt femoral (deep venous thrombosis): 7. UTI (urinary tract infection): 8. Acute respiratory failure with hypoxia and hypercarbia: Reason for Visit Reason for Visit: WEAKNESS Brief History: Edson Jaffe is a 74 year old male with a past medical history of CAD s/p PCI most recently in January 2025, recent history of anemia, positive occult stool blood, requiring 4 units of blood, history of DVT/A-fib, was on Eliquis which is on hold, according to halfway patient is only on Plavix, not on aspirin, history of CHF, history of CKD, has chronic Robertson in place. He was recently admitted here in March for acute on chronic systolic heart failure exacerbation and after discussion with cardiology it was elected to maintain Plavix monotherapy given patient's high risk of recurrent bleeding. He is presenting from the halfway today with generalized weakness and confusion over the past 4 to 5 days. He is on 4 L/min supplemental O2 chronically. Patient denied any chest pain. He has a chronic indwelling Robertson catheter. Patient was noted to have chronic hypercapnic respiratory failure. He was initially short of breath upon arrival has received Lasix IV following which he has diuresed about 1300 cc. Hospital Course Hospital Course Patient was found to have new acute bilateral PEs and bilateral DVTs . Patient unfortunately has a complex situation where he just recently had what appears to be a GI bleed without GI workup due to his morbidity and mortality risk. Now he presents with venous thromboembolism and clearly he is high risk of further thromboembolism. Thus decision was made to again treat with anticoagulation he was started on a heparin drip and transition today to Eliquis . Myself and staff attempted to call family to help make decisions however I was unable to leave a message at 1 and no one has called back to inquire. Patient seems to lack of full capacity to understand his condition and to make decisions and thus it was decided to treat the PE DVT acutely If he were to bleed again we believe as long as communication with patient and his family it would be reasonable to decide either course of action understanding the risks. Otherwise he also had acute on chronic heart failure for which we doubled the dose of his Bumex. He will be discharged on the higher dose orally. Please follow serial BMPs adjust according to renal function and electrolyte balance. He likely needs and overall higher dose than the Bumex 1 mg twice daily that he presented on. Patient is on loading dose of Eliquis 10 mg twice daily for 1 week (stop after 05/12 evening dose) and then to resume Eliquis 5 mg indefinitely. Physical Exam Narrative: Obese in no acute distress Heart regular normal S1-S2 without murmurs clicks gallops or rubs Lungs clear to auscultation anteriorly and posteriorly Abdomen obese soft nontender nondistended positive bowel sounds Extremities no significant edema Discharge Data Studies Completed and Pending Completed Studies During Hospitalization Category Date Time Status CT head wo con* [id number] Stat Cat Scan 05/03/25 23:07 Completed CTA chest [CT angio chest PE protcl [id number]] Routine Cat Scan 05/04/25 17:20 Completed XR chest 1V portable [id number] Stat Exams 05/03/25 23:07 [place] [id number] Routine Ultrasound 05/04/25 13:49 Completed Pending at discharge Category Date Time Status Blood Culture Stat Lab 05/04/25 01:30 Results Magnesium AM LABS Lab 05/07/25 04:00 Ordered Occult Blood Stool [Immunochemical Fecal OCB] Routine Lab 05/04/25 17:24 Uncollected Phosphorus AM LABS Lab 05/07/25 04:00 Ordered Urine Culture Stat Lab 05/03/25 23:50 Results Radiology Impressions Chest X-Ray 05/03/25 23:07 IMPRESSION: 1. Findings concerning for congestive heart failure. Clinical correlation is recommended. 2. Additional findings as detailed in the body of the report. Head CT 05/03/25 23:07 IMPRESSION: 1. No evidence of acute intracranial hemorrhage, mass effect, or midline shift. 2. Borderline low-lying cerebellar tonsils approximately 5 mm below the level of the foramen magnum which could represent cerebellar ectopia or mild Chiari 1 malformation. MRI of the brain and cervical spine is recommended for further evaluation. 3. There is a partially empty sella. Venous Duplex 05/04/25 13:49 IMPRESSION: 1. Proximal right femoral vein deep venous thrombosis. 2. Deep venous thrombosis involving the proximal, mid and distal left femoral vein. Chest CTA 05/04/25 17:20 IMPRESSION: 1. Subsegmental pulmonary emboli in the lower lobes bilaterally. There is no right heart strain. 2. Left pleural effusion with left basal atelectasis. 3. There are a few scattered bilateral pulmonary nodules measuring less than 6 mm. For patients at low risk (minimal or absent history of smoking and of other known risk factors), no routine follow-up is indicated. For patients at high risk (history of smoking or of other known risk factors), consider optional CT Chest at 12 months (Reference: Kwesi). 4. Moderate coronary arterial calcification, indicating the presence of coronary artery disease. If the patient has associated symptoms recommend management as per chest pain guidelines. If the patient is asymptomatic consider reviewing modifiable cardiovascular risk factors and managing as per guidelines for primary prevention REFERENCES: Kwesi Rodgers, et al. Guidelines for Management of Incidental Pulmonary Nodules Detected on CT Images: From the Fleischner Society 2017. Radiology. 2017;284(1):228-243. ADDENDUM: 05/04/25 9080 THIS REPORT CONTAINS FINDINGS THAT MAY BE CRITICAL TO PATIENT CARE. The findings were verbally communicated via telephone conference with Dr. Ellington at 7:03 PM CDT on 05/04/2025. The findings were acknowledged and understood. Some of these defects appear web-like suggesting chronic PE however, an acute on chronic PE can not be excluded. Laboratory Results WBC 9.17 10^3/uL (3.29-11.43) 05/05/25 05:08 RBC 3.51 10^6/uL (3.85-5.65) L 05/05/25 05:08 Hgb 8.30 g/dL (11.27-16.99) L 05/05/25 05:08 Hct 30.4 % (37-53) L 05/05/25 05:08 MCV 86.6 fl (82-101) 05/05/25 05:08 MCH 23.6 pg (27-33) L 05/05/25 05:08 MCHC 27.3 g/dL (30-55) L 05/05/25 05:08 RDW 19.2 % (12.1-15.1) H 05/05/25 05:08 Plt Count 288 10^3/cmm (157-399) 05/06/25 04:18 MPV 10.0 fL (7.4-10.4) 05/05/25 05:08 Neut % (Auto) 67.2 % 05/05/25 05:08 Lymph % (Auto) 15.3 % 05/05/25 05:08 [place] % (Auto) 10.4 % 05/05/25 05:08 Eos % (Auto) 6.1 % 05/05/25 05:08 Baso % (Auto) 0.5 % 05/05/25 05:08 Neut # (Auto) 6.16 10^3/uL (1.8-7.7) 05/05/25 05:08 Lymph # (Auto) 1.4 10^3/uL (0.8-4.8) 05/05/25 05:08 [place] # (Auto) 1.0 10^3/uL (0.2-0.9) H 05/05/25 05:08 Eos # (Auto) 0.6 10^3/uL (0.0-0.8) 05/05/25 05:08 Baso # (Auto) 0.1 10^3/uL (0.0-0.1) 05/05/25 05:08 Nucleated RBC % (auto) 0 % 05/05/25 05:08 Nucleated RBCs # 0.0 /100WBC 05/05/25 05:08 APTT 71.6 SECONDS (23.9-36.7) H 05/06/25 12:13 D-Dimer 1.62 ug/mLFEU (0-0.59) H 05/04/25 15:08 Specimen Type Arterial 05/03/25 23:28 Sample Site Radial, left 05/03/25 23:28 ABG pH 7.35 (7.35-7.45) 05/03/25 23:28 ABG pCO2 77.4 mmHg (35-45) H* 05/03/25 23:28 ABG pO2 100.0 mmHg (80.0-100.0) 05/03/25 23:28 ABG PO2/FiO2 Ratio 277 05/03/25 23:28 ABG HCO3 42.7 mmol/L (22-26) H 05/03/25 23:28 ABG Base Excess 14.7 mmol/L (-2.0-2.0) H 05/03/25 23:28 Ivan Test Pos 05/03/25 23:28 Hematocrit 27.8 % (42-52) L 05/03/25 23:28 O2 Delivery Device Nc 05/03/25 23:28 O2 Liters/Min 4.0 % 05/03/25 23:28 FiO2 36.0 % 05/03/25 23:28 Environmental Protection Officer ID [email or web address] 05/03/25 23:28 Sodium 139 mmol/L (136-145) 05/05/25 05:08 Potassium 4.4 mmol/L (3.5-5.1) 05/05/25 05:08 Chloride 94 mmol/L (98-107) L 05/05/25 05:08 Carbon Dioxide 39 mmol/L (22-29) H 05/05/25 05:08 Anion Gap 10.4 (5-19) 05/05/25 05:08 BUN 17 mg/dL (8-23) 05/05/25 05:08 Creatinine 1.1 mg/dL (0.7-1.2) 05/05/25 05:08 GFR Calculation Not Reportable 05/05/25 05:08 Glucose 99 mg/dL (65-115) 05/05/25 05:08 POC Glucose 95 mg/dL (70-110) 05/06/25 11:28 Calculated Osmolality 290 mOsm/kg (285-295) 05/05/25 05:08 Lactic Acid 1.0 mmol/L (0.5-2.2) 05/03/25 23:05 Calcium 8.3 mg/dL (8.5-10.5) L 05/05/25 05:08 Phosphorus 4.0 mg/dL (2.5-4.5) 05/06/25 04:18 Magnesium 2.3 mg/dL (1.7-2.3) 05/06/25 04:18 Total Bilirubin 0.2 mg/dL (0.15-1.2) 05/05/25 05:08 AST 9 U/L (0-40) 05/05/25 05:08 ALT 6 U/L (0-41) 05/05/25 05:08 Alkaline Phosphatase 120 U/L (40-130) 05/05/25 05:08 C-Reactive Protein 14.6 mg/L (0.0-4.9) H 05/03/25 23:05 Total Protein 8.2 g/dL (6.6-8.7) 05/05/25 05:08 Albumin 2.8 g/dL (3.5-5.2) L 05/05/25 05:08 Globulin 5.4 g/dL (1.3-4.6) H 05/05/25 05:08 Procalcitonin 0.08 ng/mL (0-0.5) 05/05/25 05:08 Urine Color Yellow (Yellow) 05/03/25 23:50 Urine Appearance Turbid (CLEAR) A 05/03/25 23:50 Urine pH >=9.0 (5-7) A 05/03/25 23:50 Ur Specific [place] 1.028 (1.005-1.030) 05/03/25 23:50 Urine Protein 3+ (Negative) A 05/03/25 23:50 Urine Glucose (UA) Trace (Normal) H 05/03/25 23:50 Urine Ketones Negative (Negative) 05/03/25 23:50 Urine Blood 1+ (Negative) A 05/03/25 23:50 Urine Nitrate Negative (Negative) 05/03/25 23:50 Urine Bilirubin Negative (Negative) 05/03/25 23:50 Urine Urobilinogen 1.0 mg/dL (Negative) 05/03/25 23:50 Ur Leukocyte Esterase 3+ (Negative) A 05/03/25 23:50 Urine RBC 51-100 /hpf (0-2) H 05/03/25 23:50 Urine WBC 21-50 /hpf (0-5) H 05/03/25 23:50 Ur Squamous Epith Cells 6-10 /hpf (0-5) 05/03/25 23:50 Triple Phos Crystals 25-40 /hpf H 05/03/25 23:50 Amorphous Sediment 3+ /hpf 05/03/25 23:50 Urine Bacteria 4+ /hpf (NONE) H 05/03/25 23:50 Hyaline Casts 75.25 /lpf 05/03/25 23:50 Vitals Last Vital Signs Temp 97.9 F 05/06/25 12:00 Pulse 74 05/06/25 12:00 Resp 19 H 05/06/25 12:00 BP 92/45 05/06/25 12:00 Pulse Ox 94 05/06/25 12:00 O2 Del Method Nasal Cannula 05/06/25 07:45 O2 Flow Rate 3 05/06/25 07:45 Discharge Plan Discharge Patient Disposition: Xfer SNF Condition: Fair Prescriptions: New bumetanide 1 mg Tablet 2 mg PO BID Qty: 60 0RF Eliquis 5 mg Tablet 5 mg PO BID@0900,2100 Qty: 60 0RF Eliquis 5 mg tablet 10 mg PO Q12H Qty: 30 0RF Continued (DME) Right cockup splint See Rx Instructions .Route .MEDSUPPLY Qty: 1 0RF Rx Instructions: As directed aspirin 81 mg tablet 81 mg PO DAILY Eliquis 5 mg tablet 5 mg PO BID albuterol sulfate 2.5 mg /3 mL (0.083 %) solution for nebulization 2.5 mg continuous nebulization .TID PRN (Reason: Shortness Of Breath) triamcinolone acetonide 0.5 % cream See Rx Instructions .ROUTE .COMPLEX Rx Instructions: 1 application topically to buttocks every shift for itching/rash. acetaminophen [Tylenol] 325 mg Tablet 650 mg PO Q4H PRN (Reason: elevated temp/pain) atorvastatin 40 mg tablet 40 mg PO QAM melatonin 3 mg Tablet 6 mg PO BEDTIME PRN (Reason: Insomnia) clopidogrel 75 mg tablet 75 mg PO DAILY nitroglycerin 0.4 mg tablet, sublingual See Rx Instructions .ROUTE .COMPLEX Rx Instructions: Give 1 tablet 0.4 sublingual every 5 minutes as needed for chest pain x3 doses if no relief call multivitamin Tablet 1 tab PO QAM sennosides [senna] 8.6 mg Tablet 8.6 mg PO DAILY PRN (Reason: Constipation) magnesium hydroxide [Milk of Magnesia] 400 mg/5 mL Suspension 30 ml PO DAILY PRN (Reason: Constipation) bisacodyl 10 mg Suppository 10 mg OK .Q72H PRN (Reason: Constipation) docusate sodium [Colace] 100 mg Capsule 100 mg PO BID ergocalciferol (vitamin D2) 1,250 mcg (50,000 unit) capsule 50,000 mcg PO Q30D polyethylene glycol 3350 [Miralax] 17 gram/dose Powder 17 g PO DAILY PRN (Reason: bowel management) albuterol sulfate 90 mcg/actuation HFA aerosol inhaler 2 puff INHALATION Q4H PRN (Reason: Shortness Of Breath Or Wheezing) alum-mag hydroxide-simeth [Mylanta Maximum Strength] 400-400-40 mg/5 mL Suspension 30 ml PO Q2H PRN (Reason: indigeston/heartburn/gas) Trelegy Ellipta 200-62.5-25 mcg blister with device 1 inh INHALATION DAILY loperamide [Imodium A-D] 2 mg Tablet 2 mg PO Q6H PRN (Reason: Diarrhea) oxycodone-acetaminophen 10-325 mg tablet 1 tab PO Q6H PRN (Reason: Pain) gabapentin 300 mg capsule 300 mg PO BID levothyroxine 50 mcg tablet 50 mcg PO DAILY fluoxetine 10 mg capsule 10 mg PO DAILY Rx Instructions: along with 20mg to=30mg total fluoxetine 20 mg capsule 20 mg PO DAILY Rx Instructions: along with 10mg to=30mg total bisacodyl 5 mg Tablet 5 mg PO DAILY PRN (Reason: Constipation) potassium chloride 10 mEq tablet,ER particles/crystals 10 meq PO DAILY Jardiance 10 mg tablet 10 mg PO DAILY sucralfate 100 mg/mL Suspension 1 g PO Q6H Qty: 420 2RF bumetanide 1 mg Tablet 1 mg PO BID@0500,1700 Qty: 60 2RF pantoprazole 40 mg tablet,delayed release (DR/EC) 40 mg PO BID Qty: 60 2RF Ozempic 1 mg/dose (4 mg/3 mL) pen injector 1 mg SUBCUT Q7D Rx Instructions: Monday' metoprolol tartrate 25 mg Tablet 12.5 mg PO DAILY Technology Professional OK for DC: Hospitalist Discharge Order = DC NOW: Discharge Order (Routine); Ordered 05/06/25 Ordered By: Obinna Samaniego Referrals: [facility] [Outside] Discharge Diet: Cardiac, Low Salt and Low Cholesterol Discharge Activity: Increase activity as tolerated Patient Instructions: Opioid Safety, Patient Portal & Diana Instructions Activity Restrictions/Additional Instructions: Please note patient is currently on treatment dose for PE/DVT Therefore he is on 10 mg of Eliquis twice daily for 1 week (stop after 915 evening dose) and then to resume Eliquis 5 mg indefinitely. We are aware that Eliquis was stopped due to anemia requiring blood transfusion. However no GI bleeding source was identified. We concluded that the risk of further clotting on more avidity and mortality was higher than the risk of bleeding despite requiring blood transfusion. If anemia becomes an issue must address with patient and family for further decision on plan of treatment. Due to acute on chronic congestive heart failure patient's Bumex dose has been doubled. Will continue this for 3 to 5 days and reevaluate BMP. Patient may need to be on higher dose than previous. Could consider adding Zaroxolyn to the prior dose. Clinical assessment per halfway physician Plan of Treatment: Please note patient is currently on treatment dose for PE/DVT Therefore he is on 10 mg of Eliquis twice daily for 1 week and then to resume Eliquis 5 mg indefinitely. Due to acute on chronic congestive heart failure patient's Bumex dose has been doubled. Will continue this for 3 to 5 days and reevaluate BMP. Patient may need to be on higher dose than previous. Could consider adding Zaroxolyn to the prior dose. Clinical assessment per halfway physician Discharge Attestations Time Spent in Discharge Care*: greater than 30 min Status at Discharge: Cognitive status at discharge: cognitively intact, Behavioral status at discharge: cooperative, Quality Metrics Clinical Quality Measures [ Venous Thromboembolism { Contraindication to Overlap Therapy: None; Overlap threrpy ordered; VTE Discharge Education: Follow-up arranged;}] Coding Level of Care Code Acute Code for Chg Fwd Diagnoses Acute on chronic HFrEF (heart failure with reduced ejection fraction) I50.23 Atrial fibrillation I48.91 History of deep vein thrombosis Z86.718 Anemia D64.9 Pulmonary embolism I26.99 Dvt femoral (deep venous thrombosis) I82.419 UTI (urinary tract infection) N39.0 Acute respiratory failure with hypoxia and hypercarbia J96.01; J96.02
== END 2025-05-06 18:53 | disposition intermediate care facility (04) | DRG 299 ==
LOC: ER 23:54 → CSU 05-04 01:36
PROVIDERS: Student in an Organized Health Care Education/Training Program; Admitting Provider Student in an Organized Health Care Education/Training Program; Emergency Provider Emergency Medicine; PCP Student in an Organized Health Care Education/Training Program; Visit Provider Internal Medicine
DX: I82.431 Acute embolism and thrombosis of right popliteal vein (principal); I26.99 Other pulmonary embolism without acute cor pulmonale; I50.23 Acute on chronic systolic (congestive) heart failure; J96.22 Acute and chronic respiratory failure with hypercapnia; J96.21 Acute and chronic respiratory failure with hypoxia; N39.0 Urinary tract infection, site not specified; Z68.41 Body mass index [BMI] 40.0-44.9, adult; I48.91 Unspecified atrial fibrillation; Z99.81 Dependence on supplemental oxygen; I25.10 Atherosclerotic heart disease of native coronary artery without angina pectoris; N18.9 Chronic kidney disease, unspecified; E66.9 Obesity, unspecified; J44.9 Chronic obstructive pulmonary disease, unspecified; Z86.718 Personal history of other venous thrombosis and embolism; Z95.5 Presence of coronary angioplasty implant and graft; Z87.891 Personal history of nicotine dependence; Z96.0 Presence of urogenital implants; Z79.02 Long term (current) use of antithrombotics/antiplatelets; Z79.82 Long term (current) use of aspirin
CPT/HCPCS: 36415; 36416; 36600; 70450; 71045; 71275; 80053; 81001; 82803; 82962; 83605; 83735; 84100; 84145; 85014; 85018; 85025; 85049; 85378; 85730; 86140; 87040; 87077; 87086; 87186; 93970; 94640; 96372; 96374; 96375; 99285; J0696; J1644; J1815; J1938; J2270; J3490; J7626; J9999

== ENCOUNTER 2025-05-13 22:03 | Inpatient (IN) | payer MEDICARE, MEDICAID, SELFPAY ==
--- OUTSIDE RECORDS SUMMARY | 2003-08-27 19:00 | XMS_ITS | Continuity of Care Document ---
Author Name [facility] Address [address] [place] [address] Organization [facility] Care Team Providers Care Manager Core Name Role Phone [facility] Unavailable Unavailable Problems Problem Status Onset Date [...]
[2025-05-13 22:04] VITALS: BP 110/51; PULSE 84; RESP 22; TEMP 36.9; O2SAT 99; BMI 39.5
--- NOTE | 2025-05-13 22:36 | W.ED.RECABL ---
HPI - Recheck/Abnormal Lab/Rx General: Chief Complaint: Recheck/Abnormal Lab/Rx Stated Complaint: abnormal labs Time Seen by Provider: 05/13/25 22:04 History of Present Illness: 74-year-old male with a history of DVT on chronic Eliquis anticoagulation, chronic anemia (for which source has not been determined according to patient), morbid obesity, congestive heart failure, coronary artery disease, COPD, chronic hypoxic respiratory failure on 4 L nasal cannula, and pressure ulcers who presents emergency [facility] by ambulance from [facility] with low blood counts. According to records hemoglobin was 5.6 when checked today. He says he is feeling lightheaded and short of breath. No chest pain. No abdominal pain. No altered mental status. No fevers. No cough. Related Data Home Medications ?Medication ?Instructions ?Recorded ?Confirmed albuterol sulfate 90 mcg/actuation 2 puff inhalation Q4H PRN 11/02/24 05/04/25 aerosol inhaler Shortness Of Breath Or Wheezing aluminum-mag hydroxide-simethicone 30 ml PO Q2H PRN 11/02/24 05/04/25 400 mg-400 mg-40 mg/5 mL oral susp indigeston/heartburn/gas (Mylanta Maximum Strength) bisacodyl 10 mg rectal suppository 10 mg [place] .Q72H PRN Constipation 11/02/24 05/04/25 docusate sodium 100 mg capsule 100 mg PO BID 11/02/24 05/04/25 (Colace) ergocalciferol (vitamin D2) 1,250 50,000 mcg PO Q30D 11/02/24 05/04/25 mcg (50,000 unit) capsule fluticasone fur. 200 mcg-umeclid 1 inh inhalation DAILY 11/02/24 05/04/25 62.5 mcg-vilant 25 mcg inhalat.powder (Trelegy Ellipta) magnesium hydroxide 400 mg/5 mL 30 ml PO DAILY PRN Constipation 11/02/24 05/04/25 oral suspension (Milk of Magnesia) multivitamin 1 tab PO QAM 11/02/24 05/04/25 polyethylene glycol 3350 17 17 g PO DAILY PRN bowel management 11/02/24 05/04/25 gram/dose oral powder (Miralax) sennosides 8.6 mg tablet (senna) 8.6 mg PO DAILY PRN Constipation 11/02/24 05/04/25 acetaminophen 325 mg tablet 650 mg PO Q4H PRN elevated 12/06/24 05/04/25 (Tylenol) temp/pain loperamide 2 mg tablet (Imodium 2 mg PO Q6H PRN Diarrhea 01/28/25 05/04/25 A-D) oxycodone-acetaminophen 10 mg-325 1 tab PO Q6H PRN Pain 01/28/25 05/04/25 mg tablet albuterol sulfate 2.5 mg/3 mL 2.5 mg continuous nebulization 03/05/25 05/04/25 (0.083 %) solution for nebulization .TID PRN Shortness Of Breath atorvastatin 40 mg tablet 40 mg PO QAM 03/05/25 05/04/25 clopidogrel 75 mg tablet 75 mg PO DAILY 03/05/25 05/04/25 melatonin 3 mg tablet 6 mg PO BEDTIME PRN Insomnia 03/05/25 05/04/25 nitroglycerin 0.4 mg sublingual See Rx Instructions .Route .COMPLEX 03/05/25 05/04/25 tablet triamcinolone acetonide 0.5 % See Rx Instructions .Route .COMPLEX 03/05/25 05/04/25 topical cream bisacodyl 5 mg tablet 5 mg PO DAILY PRN Constipation 04/06/25 05/04/25 empagliflozin 10 mg tablet 10 mg PO DAILY 04/06/25 05/04/25 (Jardiance) fluoxetine 10 mg capsule 10 mg PO DAILY 04/06/25 05/04/25 fluoxetine 20 mg capsule 20 mg PO DAILY 04/06/25 05/04/25 gabapentin 300 mg capsule 300 mg PO BID 04/06/25 05/04/25 levothyroxine 50 mcg tablet 50 mcg PO DAILY 04/06/25 05/04/25 potassium chloride 10 mEq 10 meq PO DAILY 04/06/25 05/04/25 tablet,extended release(part/cryst) apixaban 5 mg tablet (Eliquis) 5 mg PO BID 04/24/25 05/04/25 aspirin 81 mg tablet 81 mg PO DAILY 04/24/25 05/04/25 metoprolol tartrate 25 mg tablet 12.5 mg PO DAILY 05/04/25 05/04/25 semaglutide 1 mg/dose (4 mg/3 mL) 1 mg SUBCUT Q7D 05/04/25 05/04/25 subcutaneous pen injector (Ozempic) Previous Rx's ?Medication ?Instructions ?Recorded Right cockup splint #1 ea 11/28/24 bumetanide 1 mg tablet 1 mg PO BID@0500,1700 #60 tabs 04/10/25 pantoprazole 40 mg tablet,delayed 40 mg PO BID #60 tabs 04/10/25 release sucralfate 100 mg/mL oral 1 g (10 mL) PO Q6H #420 mL 04/10/25 suspension apixaban 5 mg tablet (Eliquis) 5 mg PO BID@0900,2100 #60 tabs 05/06/25 apixaban 5 mg tablet (Eliquis) 10 mg (2 x 5 mg) PO Q12H #30 tabs 05/06/25 bumetanide 1 mg tablet 2 mg (2 x 1 mg) PO BID #60 tabs 05/06/25 Allergies Allergy/AdvReac Type Severity Reaction Status Date / Time broccoli Allergy ADR-Vomitin Verified 04/24/25 07:51 g Review of Systems Narrative: Constitutional symptoms: Negative except as documented in HPI. Skin symptoms: Negative except as documented in HPI. Eye symptoms: Negative except as documented in HPI. ENMT symptoms: Negative except as documented in HPI. Respiratory symptoms: Negative except as documented in HPI. Cardiovascular symptoms: Negative except as documented in HPI. Gastrointestinal symptoms: Negative except as documented in HPI. Genitourinary symptoms: Negative except as documented in HPI. Musculoskeletal symptoms: Negative except as documented in HPI. Neurologic symptoms: Negative except as documented in HPI. Psychiatric symptoms: Negative except as documented in HPI. Endocrine symptoms: Negative except as documented in HPI. PFSH ED PFSH: Medical History (Updated 05/13/25 @ 23:27 by Tayler Mark MD) UTI (urinary tract infection) Dvt femoral (deep venous thrombosis) Bilateral Pulmonary embolism Acute respiratory failure with hypoxia and hypercarbia Anemia Acute on chronic HFrEF (heart failure with reduced ejection fraction) Morbid obesity with BMI of 40.0-44.9, adult NSTEMI (non-ST elevated myocardial infarction) 02/12/2025 Congestive heart failure Atrial fibrillation CKD (chronic kidney disease) History of deep vein thrombosis DNR (do not resuscitate) skilled nursing resident COPD with acute exacerbation Open wound of right lower leg Open wound of left lower leg Pressure ulcer of right buttock, stage 3 Social History Smoking and tobacco/nicotine status: former use of tobacco/nicotine Physical Exam Narrative: EXAM NARRATIVE: General: Alert, no acute distress. Skin: Warm, dry. Pale Head: Normocephalic, atraumatic. Neck: Supple, trachea midline. Eye: Extraocular movements are intact. Ears, nose, mouth and throat: mucosa moist. Cardiovascular: Regular, Normal peripheral perfusion. Respiratory: Lungs are clear to auscultation, respirations are non-labored, breath sounds are equal, Symmetrical chest wall expansion. Gastrointestinal: Soft, Nontender, Non distended Musculoskeletal: Normal ROM, no deformity. Neurological: Alert and oriented, No focal neurological deficit observed. Psychiatric: Cooperative, appropriate mood & affect. Course Vital Signs: Vital signs: Vital Signs Temperature 98.5 F 05/13/25 22:04 Pulse Rate 76 05/13/25 22:50 Respiratory Rate 22 H 05/13/25 22:04 Blood Pressure 109/54 05/13/25 22:50 Pulse Oximetry 100 05/13/25 22:50 Oxygen Delivery Me thod Nasal Cannula 05/13/25 22:04 Oxygen Flow Rate 4 05/13/25 22:04 MDM - Recheck/Abnormal Lab/Rx Medical Decision Making Medical decision making: Differential diagnosis including but not limited to and based on the above HPI, review of systems and physical exam: In this patient with recurrent anemia on anticoagulation he likely has GI source of loss. Does not appear that he is having acute active hemorrhage. Repeating lab work, type and screen and coags. Orders placed to evaluate differential diagnosis based on the above differential, HPI and physical exam Lab Review: Laboratory results were reviewed and interpreted by myself the emergency room physician. Leukocytosis with white count 14,000. Anemia with hemoglobin of 5.2. BUN is greatly elevated at 43 versus his creatinine which is almost normal at 1.1. This likely indicates a fairly acute upper GI bleed. I reviewed the patient's medical record. 74-year-old male with a history of DVT on chronic Eliquis anticoagulation, chronic anemia (for which source has not been determined according to patient), morbid obesity, congestive heart failure, coronary artery disease, COPD, chronic hypoxic respiratory failure on 4 L nasal cannula, and pressure ulcers. Patient had a visit back in March where he had an upper GI bleed. Eliquis was held during that stay. He was planned to have endoscopy after he was stabilized and he did follow in surgery clinic but still has not had endoscopy. Reexamination: Patient remained stable. No increased work of breathing. No altered mental status. No focal motor deficits. Consultation: I spoke with Dr. Romero who is on-call for general surgery. He recommends n.p.o. after midnight, fluids and Protonix. He will plan on endoscopy tomorrow Consultation: I spoke with Dr. Fraser who is on-call for the hospitalist service who agrees to admission. Assessment and plan: Acute upper GI bleeding Anemia Chronic anticoagulation on Eliquis History of DVT and atrial fibrillation ?IV Protonix. 2 units PRBCs. -I discussed the patient with the hospitalist on-call who is admitting the patient. - Discussed findings and plan with patient. Answered any questions. - All laboratory values were reviewed and interpreted personally by myself, the ER physician - All imaging was reviewed and interpreted personally by myself, the ER physician. - Evaluation and treatment of this problem were appropriate in the emergency setting Lab Data 05/13/25 22:35 05/13/25 22:35 Laboratory Results WBC 14.95 10^3/uL (3.29-11.43) H 05/13/25 22:35 RBC 2.12 10^6/uL (3.85-5.65) L 05/13/25 22: Hgb 5.20 g/dL (11.27-16.99) L* 05/13/25 22:35 Hct 18.6 % (37-53) L* 05/13/25 22:35 MCV 87.7 fl (82-101) 05/13/25: MCH 24.5 pg (27-33) L 05/13/25: MCHC 28.0 g/dL (30-55) L 05/13/25 22:35 RDW 21.2 % (12.1-15.1) H 05/13/25 22:35 Plt Count 335 10^3/cmm (157-399) 05/13/25 22: MPV 9.8 fL (7.4-10.4) 05/13/25 22:35 Neut % (Auto) 78.3 % 05/13/25 22:35 Lymph % (Auto) 10.2 % 05/13/25 22:35 [place] % (Auto) 9.5 % 05/13/25 22:35 Eos % (Auto) 0.9 % 05/13/25 22:35 Baso % (Auto) 0.3 % 05/13/25 22:35 Neut # (Auto) 11.70 10^3/uL (1.8-7.7) H 05/13/25 22:35 Lymph # (Auto) 1.5 10^3/uL (0.8-4.8) 05/13/25 22:35 [place] # (Auto) 1.4 10^3/uL (0.2-0.9) H 05/13/25 22:35 Eos # (Auto) 0.1 10^3/uL (0.0-0.8) 05/13/25 22:35 Baso # (Auto) 0.0 10^3/uL (0.0-0.1) 05/13/25 22:35 Nucleated RBC % (auto) 0.4 % 05/13/25:35 Nucleated RBCs # 0.1 /100WBC 05/13/25 22:35 PT 17.90 SECONDS (12.1-14.9) H 05/13/25 22:35 INR 1.38 (0.8-1.2) H 05/13/25 22:35 APTT 30.5 SECONDS (23.9-36.7) 05/13/25 22:35 Sodium 138 mmol/L (136-145) 05/13/25 22:35 Potassium 4.4 mmol/L (3.5-5.1) 05/13/25 22:35 Chloride 94 mmol/L (98-107) L 05/13/25 22:35 Carbon Dioxide 37 mmol/L (22-29) H 05/13/25 22:35 Anion Gap 11.4 (5-19) 05/13/25 22:35 BUN 43 mg/dL (8-23) H 05/13/25 22:35 Creatinine 1.1 mg/dL (0.7-1.2) 05/13/25 22:35 GFR Calculation Not Reportable 05/13/25 22:35 Glucose 135 mg/dL (65-115) H 05/13/25 22:35 Calculated Osmolality 299 mOsm/kg (285-295) H 05/13/25 22:35 Calcium 8.0 mg/dL (8.5-10.5) L 05/13/25 22:35 Total Bilirubin 0.3 mg/dL (0.15-1.2) 05/13/25 22:35 AST 12 U/L (0-40) 05/13/25 22:35 ALT 8 U/L (0-41) 05/13/25 22:35 Alkaline Phosphatase 109 U/L (40-130) 05/13/25 22:35 Total Protein 7.8 g/dL (6.6-8.7) 05/13/25 22:35 Albumin 2.8 g/dL (3.5-5.2) L 05/13/25 22:35 Globulin 5.0 g/dL (1.3-4.6) H 05/13/25 22:35 No radiology studies performed this visit Discharge Plan Discharge Patient Disposition: Admitted As Inpatient Clinical Impression: Acute blood loss anemia, Acute upper GI bleeding, Chronic anticoagulation Condition: Stable Coding Level of Care Code ED Social Sciences Professor for Chana Glass
[2025-05-13 22:41] LABS: Mean Corpuscular HGB Conc 28.0 g/dL (30-55); Mean Corpuscular Hemoglobin 24.5 pg (27-33); Mean Corpuscular Volume 87.7 fl (82-101); Nucleated Red Blood Cells % 0.4 %; Platelet Count 335 10^3/cmm (157-399); Red Blood Count 2.12 10^6/uL (3.85-5.65); White Blood Count 14.95 10^3/uL (3.29-11.43)
[2025-05-13 22:50] VITALS: BP 109/54; PULSE 76; O2SAT 100
[2025-05-13 22:55] LABS: INR 1.38 (0.8-1.2); Prothrombin Time 17.90 SECONDS (12.1-14.9)
[2025-05-13 22:56] LABS: Partial Thromboplastin Time 30.5 SECONDS (23.9-36.7)
[2025-05-13 22:59] LABS: Alanine Aminotransferase 8 U/L (0-41); Albumin Level 2.8 g/dL (3.5-5.2); Alkaline Phosphatase 109 U/L (40-130); Anion Gap 11.4 (5-19); Aspartate Amino Transferase 12 U/L (0-40); Blood Urea Nitrogen 43 mg/dL (8-23); Calcium 8.0 mg/dL (8.5-10.5); Carbon Dioxide 37 mmol/L (22-29); Chloride 94 mmol/L (98-107); Creatinine Clr Calc Pharmacy 85.3699; Globulin 5.0 g/dL (1.3-4.6); Glucose 135 mg/dL (65-115); Hematocrit 18.6 % (37-53); Hemoglobin 5.20 g/dL (11.27-16.99); Osmolality Calculated 299 mOsm/kg (285-295); Potassium 4.4 mmol/L (3.5-5.1); Sodium 138 mmol/L (136-145); Total Protein 7.8 g/dL (6.6-8.7)
[2025-05-13] MEDS: pantoprazole 40 mg SDV 80 MG IVP (23:32)
[2025-05-13 23:45] VITALS: BP 105/60; PULSE 80; O2SAT 100
[2025-05-14] VITALS (27 sets, daily range): BP systolic 104–175; BP diastolic 43–73; PULSE 60–79; RESP 16–22; TEMP 36.1–36.8; O2SAT 96–100; BMI 39.6
--- NOTE | 2025-05-14 00:36 | PM.HP ---
Providers/Chief Complaint Admitting Physician: Cole Sheriff MD Primary Care Provider: Otilio Huang Chief Complaint: abnormal labs History of Present Illness Edson Jaffe is a 74 year old male recently discharged 05/06/2025. Patient has a long complicated history of congestive heart failure, atrial fibrillation and DVT, coronary artery disease status post PCI January 2025 at [facility] treated with aspirin Plavix and Eliquis. Patient had longstanding anemia with GI bleed during his admission 04/05/2025 to 04/10/2025. During that hospitalization he required 4 units packed red cells and Eliquis was stopped. General surgery was consulted and due to acute illness did not pursue endoscopy inpatient. Plan was to pursue scopes as outpatient but at time of follow-up on 04/24/2025 decision was made to postpone endoscopy due to high risk patient with follow-up just as needed. Eliquis was not restarted until the patient was readmitted from 05/04/2025 to 05/06/2025 with bilateral pulmonary embolisms and bilateral DVTs. Now the patient comes in with acute GI bleed again with elevated BUN to creatinine ratio 43-1.1. Hematocrit is down to 19. Dr. Patel has contacted Dr. Faye who is planning EGD tomorrow I spoke with the patient regarding his pulmonary embolism just recently diagnosed and increased risk of complication or with EGD. I spoke with him regarding his GI bleeding and increased risk of bleeding which is already happening with anticoagulation. Patient states he would rather just pass away. We further discussed his options and he tells me that he does not have anything to live for. [facility] cannot [facility] for the [facility] 6 weeks. His sister Bita Jean-Baptiste phone #[phone] is his next of kin. He has 2 sisters and 1 brother all living in [facility]. Review of Systems Narrative: General no fevers chills weight gain weight loss Cardiovascular no chest pain Respiratory positive for shortness of breath both at rest and with any activity. He has a chronic cough he states he cannot walk for the last 6 months. GI positive for black stools with iron pills but does not think that is changed any. He does not wipe his own but so does not know if it is sticky or hard to clean. Denies vomiting or abdominal pain he does have constipation. Neuro reports his legs are painful for about 1 year Medications/Allergies Home Medications ?Medication ?Instructions ?Recorded ?Confirmed ?Last Taken ?Type albuterol sulfate 90 mcg/actuation 2 puff inhalation Q4H PRN 11/02/24 05/04/25 12/05/24 History aerosol inhaler Shortness Of Breath Or Wheezing aluminum-mag hydroxide-simethicone 30 ml PO Q2H PRN 11/02/24 05/04/25 04/05/25 History 400 mg-400 mg-40 mg/5 mL oral susp indigeston/heartburn/gas (Mylanta Maximum Strength) bisacodyl 10 mg rectal suppository 10 mg [place] .Q72H PRN Constipation 11/02/24 05/04/25 Unknown History docusate sodium 100 mg capsule 100 mg PO BID 11/02/24 05/04/25 05/04/25 History (Colace) ergocalciferol (vitamin D2) 1,250 50,000 mcg PO Q30D 11/02/24 05/04/25 03/28/25 History mcg (50,000 unit) capsule fluticasone fur. 200 mcg-umeclid 1 inh inhalation DAILY 11/02/24 05/04/25 05/03/25 History 62.5 mcg-vilant 25 mcg inhalat.powder (Trelegy Ellipta) magnesium hydroxide 400 mg/5 mL 30 ml PO DAILY PRN Constipation 11/02/24 05/04/25 02/25/25 08:30 History oral suspension (Milk of Magnesia) multivitamin 1 tab PO QAM 11/02/24 05/04/25 05/03/25 History polyethylene glycol 3350 17 17 g PO DAILY PRN bowel management 11/02/24 05/04/25 11/20/24 History gram/dose oral powder (Miralax) sennosides 8.6 mg tablet (senna) 8.6 mg PO DAILY PRN Constipation 11/02/24 05/04/25 02/09/25 History Right cockup splint #1 ea 11/28/24 05/04/25 Unknown Rx acetaminophen 325 mg tablet 650 mg PO Q4H PRN elevated 12/06/24 05/04/25 01/30/25 History (Tylenol) temp/pain loperamide 2 mg tablet (Imodium 2 mg PO Q6H PRN Diarrhea 01/28/25 05/04/25 02/01/25 History A-D) oxycodone-acetaminophen 10 mg-325 1 tab PO Q6H PRN Pain 01/28/25 05/04/25 03/04/25 16:30 History mg tablet albuterol sulfate 2.5 mg/3 mL 2.5 mg continuous nebulization 03/05/25 05/04/25 03/04/25 11:40 History (0.083 %) solution for nebulization .TID PRN Shortness Of Breath atorvastatin 40 mg tablet 40 mg PO QAM 03/05/25 05/04/25 05/03/25 History clopidogrel 75 mg tablet 75 mg PO DAILY 03/05/25 05/04/25 05/03/25 History melatonin 3 mg tablet 6 mg PO BEDTIME PRN Insomnia 03/05/25 05/04/25 Unknown History nitroglycerin 0.4 mg sublingual See Rx Instructions .Route .COMPLEX 03/05/25 05/04/25 Unknown History tablet triamcinolone acetonide 0.5 % See Rx Instructions .Route .COMPLEX 03/05/25 05/04/25 04/04/25 History topical cream bisacodyl 5 mg tablet 5 mg PO DAILY PRN Constipation 04/06/25 05/04/25 Unknown History empagliflozin 10 mg tablet 10 mg PO DAILY 04/06/25 05/04/25 05/03/25 History (Jardiance) fluoxetine 10 mg capsule 10 mg PO DAILY 04/06/25 05/04/25 05/03/25 History fluoxetine 20 mg capsule 20 mg PO DAILY 04/06/25 05/04/25 05/03/25 History gabapentin 300 mg capsule 300 mg PO BID 04/06/25 05/04/25 05/03/25 History levothyroxine 50 mcg tablet 50 mcg PO DAILY 04/06/25 05/04/25 05/03/25 History potassium chloride 10 mEq 10 meq PO DAILY 04/06/25 05/04/25 05/03/25 History tablet,extended release(part/cryst) bumetanide 1 mg tablet 1 mg PO BID@0500,1700 #60 tabs 04/10/25 05/04/25 05/03/25 Rx pantoprazole 40 mg tablet,delayed 40 mg PO BID #60 tabs 04/10/25 05/04/25 05/03/25 Rx release sucralfate 100 mg/mL oral 1 g (10 mL) PO Q6H #420 mL 04/10/25 05/04/25 05/03/25 Rx suspension apixaban 5 mg tablet (Eliquis) 5 mg PO BID 04/24/25 05/04/25 05/03/25 History aspirin 81 mg tablet 81 mg PO DAILY 04/24/25 05/04/25 05/03/25 History metoprolol tartrate 25 mg tablet 12.5 mg PO DAILY 05/04/25 05/04/25 05/03/25 History semaglutide 1 mg/dose (4 mg/3 mL) 1 mg SUBCUT Q7D 05/04/25 05/04/25 04/28/25 History subcutaneous pen injector (Ozempic) apixaban 5 mg tablet (Eliquis) 5 mg PO BID@0900,2100 #60 tabs 05/06/25 Unknown Rx apixaban 5 mg tablet (Eliquis) 10 mg (2 x 5 mg) PO Q12H #30 tabs 05/06/25 Unknown Rx bumetanide 1 mg tablet 2 mg (2 x 1 mg) PO BID #60 tabs 05/06/25 Unknown Rx Allergies Allergy/AdvReac Type Severity Reaction Status Date / Time broccoli Allergy ADR-Vomitin Verified 04/24/25 07:51 g PFSH Acute PFSH: Medical History (Updated 05/14/25 @ 01:38 by Cole Sheriff MD) Pulmonary embolism UTI (urinary tract infection) Dvt femoral (deep venous thrombosis) Bilateral Acute respiratory failure with hypoxia and hypercarbia Anemia Acute on chronic HFrEF (heart failure with reduced ejection fraction) Morbid obesity with BMI of 40.0-44.9, adult NSTEMI (non-ST elevated myocardial infarction) 02/12/2025 Congestive heart failure Atrial fibrillation CKD (chronic kidney disease) History of deep vein thrombosis DNR (do not resuscitate) [facility] resident COPD with acute exacerbation Open wound of right lower leg Open wound of left lower leg Pressure ulcer of right buttock, stage 3 Social History (Updated 05/14/25 @ 01:35 by Cole Sheriff MD) Smoking and tobacco/nicotine status: former use of tobacco/nicotine Quit status (tobacco/nicotine): has quit using Year quit tobacco: 2022 Alcohol intake: former Year of sobriety/quit date alcohol: 2021 Substance/Drug Use: never Additional social history: Patient [facility] in a [facility] he wants DO NOT RESUSCITATE status as discussed with Cole Sheriff MD on 05/14/2025. His sister Bita Jean-Baptiste phone #[phone] is his next of kin. 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 [employer] Vitals/I&O/Wt Last Vital Signs Temp 97.8 F 05/14/25 00:22 Pulse 70 05/14/25 00:22 Resp 17 05/14/25 00:22 BP 133/55 05/14/25 00:22 Pulse Ox 100 05/14/25 00:22 O2 Del Method Nasal Cannula 05/14/25 00:09 O2 Flow Rate 4 05/14/25 00:09 05/13/25 05/13/25 05/14/25 14:59 22:59 06:59 Intake Total 50 / 50 Balance 50 / 50 Weight last 48 hrs Weight 132.177 kg Physical Exam Narrative: General well-developed well-nourished obese male in no acute cardiopulmonary stress CV regular rate and rhythm Lungs diminished breath sounds in the bases trace crackles Abdomen positive bowel tones soft obese nontender Calves 1+ pretibial edema Robertson is in place with light-colored yellow urine Mentation he is alert and orient x 3 pleasant cooperative calm Data 05/13/25 22:35 05/13/25 22:35 A&P Assessment and plan 1. Acute upper GI bleeding: Patient with recent bilateral PE and bilateral DVT restarted on apixaban following discharge 05/06/2025 and already having acute upper GI bleeding as evidenced by elevated BUN to creatinine ratio with melena. The patient has been given Protonix 80 mg IV and will continue on 40 mg p.o. twice daily surgery consult and potential EGD in the morning. 2. Acute blood loss anemia: Attributable to #1 3. Chronic anticoagulation: Hold apixaban Plavix aspirin currently 4. Iron deficiency anemia: Due to chronic GI bleeding PDMP PDMP Reviewed: Not Reviewed Attestations Medical Necessity Statement*: Patient admitted to the hospital with acute GI bleed and pulmonary embolism recently diagnosed and on anticoagulation will require greater than 2 midnights in hospital Coding Level of Care Code 56926 Diagnoses Acute upper GI bleeding K92.2 Acute blood loss anemia D62 Chronic anticoagulation Z79.01 Iron deficiency anemia D50.9 Time Spent (min) 55
--- NOTE | 2025-05-14 08:18 | PM.CONSULT ---
Providers/Reason For Consult Consulting Physician/Specialty*: General Surgery Reason for Consult*: Acute upper GI bleeding Attending Physician: Joe Haynes MD Primary Care Provider: Otilio Huang History of Present Illness History of Present Illness Edson Jaffe is a 74 year old male with multiple medical comorbidities who has history of previous GI bleeding, eventually had decided not to undergo upper and lower scope due to high risk due to medical comorbidities. He presents again with suspected upper GI bleeding in the setting of active anticoagulation due to DVT PE. Has been having tarry stools, hemoglobin was decreased and elevated BUN. Review of Systems General: Reports: 10 or more systems reviewed and unremarkable except in HPI and below Medications/Allergies Home Medications ?Medication ?Instructions ?Recorded ?Confirmed ?Last Taken ?Type albuterol sulfate 90 mcg/actuation 2 puff inhalation Q4H PRN 11/02/24 05/04/25 12/05/24 History aerosol inhaler Shortness Of Breath Or Wheezing aluminum-mag hydroxide-simethicone 30 ml PO Q2H PRN 11/02/24 05/04/25 04/05/25 History 400 mg-400 mg-40 mg/5 mL oral susp indigeston/heartburn/gas (Mylanta Maximum Strength) bisacodyl 10 mg rectal suppository 10 mg NM .Q72H PRN Constipation 11/02/24 05/04/25 Unknown History docusate sodium 100 mg capsule 100 mg PO BID 11/02/24 05/04/25 05/04/25 History (Colace) ergocalciferol (vitamin D2) 1,250 50,000 mcg PO Q30D 11/02/24 05/04/25 03/28/25 History mcg (50,000 unit) capsule fluticasone fur. 200 mcg-umeclid 1 inh inhalation DAILY 11/02/24 05/04/25 05/03/25 History 62.5 mcg-vilant 25 mcg inhalat.powder (Trelegy Ellipta) magnesium hydroxide 400 mg/5 mL 30 ml PO DAILY PRN Constipation 11/02/24 05/04/25 02/25/25 08:30 History oral suspension (Milk of Magnesia) multivitamin 1 tab PO QAM 11/02/24 05/04/25 05/03/25 History polyethylene glycol 3350 17 17 g PO DAILY PRN bowel management 11/02/24 05/04/25 11/20/24 History gram/dose oral powder (Miralax) sennosides 8.6 mg tablet (senna) 8.6 mg PO DAILY PRN Constipation 11/02/24 05/04/25 02/09/25 History Right cockup splint #1 ea 11/28/24 05/04/25 Unknown Rx acetaminophen 325 mg tablet 650 mg PO Q4H PRN elevated 12/06/24 05/04/25 01/30/25 History (Tylenol) temp/pain loperamide 2 mg tablet (Imodium 2 mg PO Q6H PRN Diarrhea 01/28/25 05/04/25 02/01/25 History A-D) oxycodone-acetaminophen 10 mg-325 1 tab PO Q6H PRN Pain 01/28/25 05/04/25 03/04/25 16:30 History mg tablet albuterol sulfate 2.5 mg/3 mL 2.5 mg continuous nebulization 03/05/25 05/04/25 03/04/25 11:40 History (0.083 %) solution for nebulization .TID PRN Shortness Of Breath atorvastatin 40 mg tablet 40 mg PO QAM 03/05/25 05/04/25 05/03/25 History clopidogrel 75 mg tablet 75 mg PO DAILY 03/05/25 05/04/25 05/03/25 History melatonin 3 mg tablet 6 mg PO BEDTIME PRN Insomnia 03/05/25 05/04/25 Unknown History nitroglycerin 0.4 mg sublingual See Rx Instructions .Route .COMPLEX 03/05/25 05/04/25 Unknown History tablet triamcinolone acetonide 0.5 % See Rx Instructions .Route .COMPLEX 03/05/25 05/04/25 04/04/25 History topical cream bisacodyl 5 mg tablet 5 mg PO DAILY PRN Constipation 04/06/25 05/04/25 Unknown History empagliflozin 10 mg tablet 10 mg PO DAILY 04/06/25 05/04/25 05/03/25 History (Jardiance) fluoxetine 10 mg capsule 10 mg PO DAILY 04/06/25 05/04/25 05/03/25 History fluoxetine 20 mg capsule 20 mg PO DAILY 04/06/25 05/04/25 05/03/25 History gabapentin 300 mg capsule 300 mg PO BID 04/06/25 05/04/25 05/03/25 History levothyroxine 50 mcg tablet 50 mcg PO DAILY 04/06/25 05/04/25 05/03/25 History potassium chloride 10 mEq 10 meq PO DAILY 04/06/25 05/04/25 05/03/25 History tablet,extended release(part/cryst) bumetanide 1 mg tablet 1 mg PO BID@0500,1700 #60 tabs 04/10/25 05/04/25 05/03/25 Rx pantoprazole 40 mg tablet,delayed 40 mg PO BID #60 tabs 04/10/25 05/04/25 05/03/25 Rx release sucralfate 100 mg/mL oral 1 g (10 mL) PO Q6H #420 mL 04/10/25 05/04/25 05/03/25 Rx suspension apixaban 5 mg tablet (Eliquis) 5 mg PO BID 04/24/25 05/04/25 05/03/25 History aspirin 81 mg tablet 81 mg PO DAILY 04/24/25 05/04/25 05/03/25 History metoprolol tartrate 25 mg tablet 12.5 mg PO DAILY 05/04/25 05/04/25 05/03/25 History semaglutide 1 mg/dose (4 mg/3 mL) 1 mg SUBCUT Q7D 05/04/25 05/04/25 04/28/25 History subcutaneous pen injector (Ozempic) apixaban 5 mg tablet (Eliquis) 5 mg PO BID@0900,2100 #60 tabs 05/06/25 Unknown Rx apixaban 5 mg tablet (Eliquis) 10 mg (2 x 5 mg) PO Q12H #30 tabs 05/06/25 Unknown Rx bumetanide 1 mg tablet 2 mg (2 x 1 mg) PO BID #60 tabs 05/06/25 Unknown Rx Allergies Allergy/AdvReac Type Severity Reaction Status Date / Time broccoli Allergy ADR-Vomitin Verified 04/24/25 07:51 g PFSH Acute PFSH: Medical History (Updated 05/14/25 @ 01:38 by Cole Sheriff MD) Pulmonary embolism UTI (urinary tract infection) Dvt femoral (deep venous thrombosis) Bilateral Acute respiratory failure with hypoxia and hypercarbia Anemia Acute on chronic HFrEF (heart failure with reduced ejection fraction) Morbid obesity with BMI of 40.0-44.9, adult NSTEMI (non-ST elevated myocardial infarction) 02/12/2025 Congestive heart failure Atrial fibrillation CKD (chronic kidney disease) History of deep vein thrombosis DNR (do not resuscitate) alf resident COPD with acute exacerbation Open wound of right lower leg Open wound of left lower leg Pressure ulcer of right buttock, stage 3 Social History (Updated 05/14/25 @ 01:35 by Cole Sheriff MD) Smoking and tobacco/nicotine status: former use of tobacco/nicotine Quit status (tobacco/nicotine): has quit using Year quit tobacco: 2022 Alcohol intake: former Year of sobriety/quit date alcohol: 2021 Substance/Drug Use: never Additional social history: Patient lives in a intermediate he wants DO NOT RESUSCITATE status as discussed with Cole Sheriff MD on 05/14/2025. His sister Bita Jean-Baptiste phone #[phone] is his next of kin. 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 Abdomen is soft nontender nondistended. Data 05/13/25 22:35 05/13/25 22:35 A&P Assessment and plan 1. Positive occult stool blood test: 2. Pulmonary embolism: 3. Acute upper GI bleeding: Plan: After complete history physical examination review of all available clinical data the following is my assessment. Is a patient with multiple medical comorbidities who presents with a suspected upper GI bleeding in the setting of active anticoagulation. In this setting despite the high risks of proceeding with surgical intervention patient will require upper endoscopy with possible bleeding control. I have discussed all risks and benefits including the risks of rebleeding, need for additional interventions, perforation of the stomach esophagus or duodenum requiring surgical intervention or transfer to higher level of care, injury to soft tissue of the mouth and pharynx and injury to the teeth. He shows understanding he agrees to proceed. He is finishing a unit of blood we will obtain a repeat CBC after that and we will plan to proceed to the endoscopy suite by noon. PDMP PDMP Reviewed: Not Reviewed Coding Level of Care Code 34045 Diagnoses Positive occult stool blood test R19.5 Pulmonary embolism I26.99 Acute upper GI bleeding K92.2
[2025-05-14] MEDS: pantoprazole 40 mg SDV IVP ×2 (08:36→21:31)
[2025-05-14 09:45] LABS: Hematocrit 23.0 % (37-53); Hemoglobin 6.80 g/dL (11.27-16.99); Mean Corpuscular HGB Conc 29.6 g/dL (30-55); Mean Corpuscular Hemoglobin 26.5 pg (27-33); Mean Corpuscular Volume 89.5 fl (82-101); Nucleated Red Blood Cells % 0.4 %; Platelet Count 331 10^3/cmm (157-399); Red Blood Count 2.57 10^6/uL (3.85-5.65); White Blood Count 11.70 10^3/uL (3.29-11.43)
--- NOTE | 2025-05-14 10:20 | PC.CHAP ---
Pastoral Care Encounter/Spiritual Assessment Type of Contact [] Declined strike plate attacher visit [] Patient/Family/Request visit [] Outpatient visit [] Follow-up visit [] Physician referral [] Code/Alert [] Routine visit [] Staff referral [] Actively dying [x] Patient sleeping [] Family support [] [] Out of room [] Palliative care [] [] Receiving care in room [] Pre-surgical visit [] Trauma [] Long length of stay [] ICU visit [] Other: Relational/Emotional Strength [] Patient feels connected with others/family/visitors/staff [] Distress [] Loneliness/isolation [] Abandonment Spirituality of Patient [] Person of Isha [] Attends Mormon of their Isha [] Believes in Prayer [] Reads Bible or Orthodoxy materials [] There are Spiritual issues to be addressed Pruner Interventions [] Prayer [] Active listening [] Non-anxious presence [] Spiritual/emotional support [] Crisis/trauma care [] Spiritual counseling [] Bereavement support [] Provided bereavement packet [] Provided Bible/devotional materials [] Provided toy/stuffed animal, coloring book to patient or family member [] Provided Communion [] Anointing/[place] [] Salvation [] Completed spiritual assessment [] Other: Impact on Illness or Injury [] Angry [] Fearful [] Anxious [] Often cries [] Exhaustion [] Unable to work [] Unable to attend restorationist [] Unable to walk/stand [] Unable to read [] Unable to drive [] Unable to eat/drink [] Unable to sleep [] Unable to be with family [] Patient intubated [] Other: Summary Time spent with patient
--- NOTE | 2025-05-14 11:40 | ANES.PREANE2 ---
Pre-Anesthetic Assessment Height/Weight: Height 1.83 m Weight 132.619 kg Temp Pulse Resp BP Pulse Ox O2 Del Method O2 Flow Rate 97.4 F L 70 18 119/59 100 Nasal Cannula 3 05/14/25 11:29 05/14/25 11:29 05/14/25 11:29 05/14/25 11:29 05/14/25 11:29 05/14/25 11:05/14/25 11:29 Operation Date: 05/14/25 12:00 Proposed Procedures p EGD(Not Applicable) - Brigido Faye MD Familial anesthetic complications: None Was Beta Jennie taken within 24 hours: Yes Was Clonidine taken within 24 hours: N/A Last intake: Intake Last Liquid Date 05/13/25 Last Liquid Time 17:00 Last Solid Date 05/13/25 Last Solid Time 08:00 Social No alcohol and No tobacco (Quit smoking 2 years ago) Exam alert, oriented x 3, clear to auscultation bilaterally (Diminished) and regular rate & rhythm Airway Submandibular: within normal limits Cervical ROM: within normal limits Mallampati: Class III Comments: Comments: Edentulous History/ROS No significant history except as noted and No significant complaints Pulmonary Chronic Obstructive Pulmonary Disease, Cough, Exertional Dyspnea and Shortness of Breath Hx PE CV/HEM Anemia, Coronary Artery Disease, Congestive Heart Failure and Myocardial Infarction (Stent x1 6 months ago) CONCLUSIONS Moderately increased left ventricular cavity size. Moderate to Severely decreased left ventricular systolic function. Left ventricular ejection fraction is estimated at 35-40 %. Global left ventricular hypokinesis. Grade I/IV diastolic dysfunction (abnormal relaxation filling pattern), normal to mildly elevated filling pressures. Moderate aortic valve calcification. Moderate aortic valve stenosis, mean gradient 14.2 mmHg, ANUEL 1.2 cm squared. Trace aortic valve regurgitation. There is no pericardial effusion. Right atrial pressure is around 5 mm of mercury. Chronic Renal Insufficiency Hepatic None reported GI Peptic Ulcer Disease Upper GI bleed Metabolic Diabetes Mellitus, Morbid Obesity and Thyroid Disease Musc/skel Osteoarthritis/DJD and Rheumatoid Arthritis Neuropsych Anxiety and Depression Anesthetic Plan ASA status: 4 Anesthesia: Anesthesia Evaluation, General and MAC Risk of > 500 ml blood loss (7ml/kg in children): No Medications/Allergies Home Medications ?Medication ?Instructions ?Recorded ?Confirmed ?Last Taken ?Type albuterol sulfate 90 mcg/actuation 2 puff inhalation Q4H PRN 03/08/25 09/17/25 04/10/25 History aerosol inhaler Shortness Of Breath Or Wheezing aluminum-mag hydroxide-simethicone 30 ml PO Q2H PRN 11/02/24 05/14/25 04/05/25 History 400 mg-400 mg-40 mg/5 mL oral susp indigeston/heartburn/gas (Mylanta Maximum Strength) bisacodyl 10 mg rectal suppository 10 mg RI .Q72H PRN Constipation 11/02/24 05/14/25 Unknown History docusate sodium 100 mg capsule 100 mg PO BID 11/02/24 05/14/25 05/13/25 17:00 History (Colace) ergocalciferol (vitamin D2) 1,250 50,000 mcg PO Q30D 11/02/24 05/14/25 03/28/25 History mcg (50,000 unit) capsule fluticasone fur. 200 mcg-umeclid 1 inh inhalation DAILY 11/02/24 05/14/25 05/13/25 07:05 History 62.5 mcg-vilant 25 mcg inhalat.powder (Trelegy Ellipta) magnesium hydroxide 400 mg/5 mL 30 ml PO DAILY PRN Constipation 11/02/24 05/14/25 02/25/25 08:30 History oral suspension (Milk of Magnesia) multivitamin 1 tab PO QAM 11/02/24 05/14/25 05/13/25 08:00 History polyethylene glycol 3350 17 17 g PO DAILY PRN bowel management 11/02/24 05/14/25 11/20/24 History gram/dose oral powder (Miralax) sennosides 8.6 mg tablet (senna) 8.6 mg PO DAILY PRN Constipation 11/02/24 05/14/25 02/09/25 History Right cockup splint #1 ea 11/28/24 05/14/25 Unknown Rx acetaminophen 325 mg tablet 650 mg PO Q4H PRN elevated 12/06/24 05/14/25 01/30/25 History (Tylenol) temp/pain loperamide 2 mg tablet (Imodium 2 mg PO Q6H PRN Diarrhea 01/28/25 05/14/25 05/13/25 19:15 History A-D) oxycodone-acetaminophen 10 mg-325 1 tab PO Q6H PRN Pain 01/28/25 05/14/25 05/13/25 10:00 History mg tablet albuterol sulfate 2.5 mg/3 mL 2.5 mg continuous nebulization 03/05/25 05/14/25 03/04/25 11:40 History (0.083 %) solution for nebulization .TID PRN Shortness Of Breath atorvastatin 40 mg tablet 40 mg PO QAM 03/05/25 05/14/25 05/13/25 07:05 History clopidogrel 75 mg tablet 75 mg PO DAILY 03/05/25 05/14/25 05/13/25 07:05 History melatonin 3 mg tablet 6 mg PO BEDTIME PRN Insomnia 03/05/25 05/14/25 05/13/25 21:35 History nitroglycerin 0.4 mg sublingual See Rx Instructions .Route .COMPLEX 03/05/25 05/14/25 Unknown History tablet triamcinolone acetonide 0.5 % See Rx Instructions .Route .COMPLEX 03/05/25 05/14/25 05/07/25 08:00 History topical cream bisacodyl 5 mg tablet 5 mg PO DAILY PRN Constipation 04/06/25 05/14/25 Unknown History empagliflozin 10 mg tablet 10 mg PO DAILY 04/06/25 05/14/25 05/13/25 07:05 History (Jardiance) fluoxetine 10 mg capsule 10 mg PO DAILY 04/06/25 05/14/25 05/13/25 07:05 History fluoxetine 20 mg capsule 20 mg PO DAILY 04/06/25 05/14/25 05/13/25 07:05 History gabapentin 300 mg capsule 300 mg PO BID 04/06/25 05/14/25 05/13/25 20:00 History levothyroxine 50 mcg tablet 50 mcg PO DAILY 04/06/25 05/14/25 05/13/25 07:05 History potassium chloride 10 mEq 10 meq PO DAILY 04/06/25 05/14/25 05/13/25 07:05 History tablet,extended release(part/cryst) pantoprazole 40 mg tablet,delayed 40 mg PO BID #60 tabs 04/10/25 05/14/25 05/13/25 20:00 Rx release sucralfate 100 mg/mL oral 1 g (10 mL) PO Q6H #420 mL 04/10/25 05/14/25 05/13/25 19:30 Rx suspension aspirin 81 mg tablet 81 mg PO DAILY 04/24/25 05/14/25 05/13/25 07:00 History metoprolol tartrate 25 mg tablet 12.5 mg PO DAILY 05/04/25 05/14/25 05/13/25 07:05 History semaglutide 1 mg/dose (4 mg/3 mL) 1 mg SUBCUT Q7D 05/04/25 05/14/25 04/28/25 History subcutaneous pen injector (Ozempic) apixaban 5 mg tablet (Eliquis) 5 mg PO BID@0900,2100 #60 tabs 05/06/25 05/14/25 Unknown Rx apixaban 5 mg tablet (Eliquis) 10 mg (2 x 5 mg) PO Q12H #30 tabs 05/06/25 05/14/25 05/13/25 08:00 Rx bumetanide 2 mg tablet 2 mg PO BID 05/14/25 05/14/25 05/13/25 12:40 History buspirone 5 mg tablet 5 mg PO BID anxiety 05/14/25 05/14/25 05/13/25 17:00 History Allergies Allergy/AdvReac Type Severity Reaction Status Date / Time broccoli Allergy ADR-Vomitin Verified 04/24/25 07:51 g Current Medications Generic Name Dose Route Start Last Admin Trade Name Devynq PRN Reason Stop Dose Admin Fluoxetine HCl 20 mg 05/14/25 09:00 05/14/25 08:24 Fluoxetine 20 Mg Capsule PO Not Given On Hold: 05/14/25 11:29 DAILY HARJINDER Comment: Order held by Process Transfer Levothyroxine Sodium 50 mcg 05/14/25 09:00 05/14/25 08:24 Levothyroxine 50 Mcg Tablet PO Not Given On Hold: 05/14/25 11:29 DAILY HARJINDER Comment: Order held by Process Transfer Metoprolol Tartrate 12.5 mg 05/14/25 09:00 05/14/25 08:24 Metoprolol Tartrate 25 Mg Tablet PO Not Given On Hold: 05/14/25 11:29 DAILY HARJINDER Comment: Order held by Process Transfer Pantoprazole Sodium 40 mg 05/14/25 06:15 05/14/25 08:36 Pantoprazole 40 Mg Sdv IVP 40 mg On Hold: 05/14/25 11:29 Q12H HARJINDER Administration Comment: Order held by Process Transfer [facility] Anesthesia Medical History (Updated 05/14/25 @ 01:38 by Cole Sheriff MD) Pulmonary embolism UTI (urinary tract infection) Dvt femoral (deep venous thrombosis) Bilateral Acute respiratory failure with hypoxia and hypercarbia Anemia Acute on chronic HFrEF (heart failure with reduced ejection fraction) Morbid obesity with BMI of 40.0-44.9, adult NSTEMI (non-ST elevated myocardial infarction) 02/12/2025 Congestive heart failure Atrial fibrillation CKD (chronic kidney disease) History of deep vein thrombosis DNR (do not resuscitate) [facility] resident COPD with acute exacerbation Open wound of right lower leg Open wound of left lower leg Pressure ulcer of right buttock, stage 3 Social History (Updated 05/14/25 @ 01:35 by Cole Sheriff MD) Smoking and tobacco/nicotine status: former use of tobacco/nicotine Quit status (tobacco/nicotine): has quit using Year quit tobacco: 2022 Alcohol intake: former Year of sobriety/quit date alcohol: 2021 Substance/Drug Use: never Additional social history: Patient lives in a residential he wants DO NOT RESUSCITATE status as discussed with Cole Sheriff MD on 05/14/2025. His sister Bita Jean-Baptiste phone #[phone] is his next of kin. 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 [employer] Data Anesthesia 05/14/25 09:27 05/13/25 22:35 Short CBC 05/13/25 05/14/25 Range/Units 22:35 09:27 WBC 14.95 H 11.70 H (3.29-11.43) 10^3/uL Hgb 5.20 L* 6.80 L D (11.27-16.99) g/dL Hct 18.6 L* 23.0 L (37-53) % MCV 87.7 89.5 (82-101) fl Plt Count 335 331 (157-399) 10^3/cmm Neut % (Auto) 78.3 75.0 % Neut # (Auto) 11.70 H 8.77 H (1.8-7.7) 10^3/uL BMP 05/13/25 22:35 Sodium 138 Potassium 4.4 Chloride 94 L Carbon Dioxide 37 H BUN 43 H Creatinine 1.1 Glucose 135 H Calcium 8.0 L Liver Function 05/13/25 Range/Units 22:35 Total Bilirubin 0.3 (0.15-1.2) mg/dL AST 12 (0-40) U/L ALT 8 (0-41) U/L Alkaline Phosphatase 109 (40-130) U/L Albumin 2.8 L (3.5-5.2) g/dL Blood Bank 05/13/25 22:41 Blood Type O Positive Rho(D) Type Rh positive Antibody Screen Negative Coags 05/13/25 22:35 PT 17.90 H INR 1.38 H APTT 30.5 Cardiac Studies: Echocardiogram 04/06/25 Echocardiogram Limited Views 03/05/25
--- NOTE | 2025-05-14 11:40 | PC.NURSE ---
Pt to GI lab
--- NOTE | 2025-05-14 12:11 | PM.MISC ---
Miscellaneous Note Purpose of Documentation: Update on patient care Note: Upper endoscopy was done, there is no evidence of active GI bleeding although there is significant irritation of the antrum of the stomach with some small areas of what appears to be healed ulcerations. If patient continues to have a decrease in the hemoglobin may consider additional modalities of imaging including a CTA of the abdomen pelvis to try to identify any source of active bleeding. Per my discussion discussion with the patient he does not want to proceed with colonoscopy and he was only agreeable to upper endoscopy. If he changes his mind he can proceed with colonoscopy in the outpatient setting. I recommend that he continues on high-dose PPI 40 mg twice a day and can be started on 1 g of Carafate liquid twice a day. He can follow-up in the surgical clinic as outpatient.
--- NOTE | 2025-05-14 12:30 | ANE.PACU2 ---
Inpatient post-anesthesia follow up: Airway intact: Yes Vital signs: Temperature 97.8 F Pulse Rate 73 Respiratory Rate 16 Blood Pressure 120/60 Pulse Oximetry 100 Oxygen Delivery Me thod Nasal Cannula Oxygen Flow Rate 3 Fraction of Inspir ed Oxygen Hydration adequate: Yes Nausea and vomiting: No Pain level: 1 Mental status: Baseline
--- NOTE | 2025-05-14 12:49 | PC.NURSE ---
Pt returns from GI lab. VSS.
--- NOTE | 2025-05-14 16:46 | PC.NURSE ---
3rd unit of PRBC's started at this time. O2 98% on 3L, Bp 175/68, HR 71, afebrile. Infusion started at 50ml/hr for first 15 minutes. Pt very sleepy,but awakens easily and remains alert and oriented. BBS cTA, but pt noted to have a little bit of a wet cough. Dr. Kauffman contacted and advised of this. New orders received for Lasix 40mg IvP x1. Will continue to run blood slow after first 15 minutes. Will run at 100ml/hr and continue to monitor urine output closely.
[2025-05-14] MEDS: FUROsemide 10 mg/mL SDV 4mL 40 MG IVP (16:52)
--- NOTE | 2025-05-14 17:37 | XRR_ITS ---
PROCEDURE INFORMATION: Exam: XR Chest Exam date and time: 05/14/2025 5:57 PM Age: 74 years old Clinical indication: Shortness of breath; Prior surgery; Surgery date: 6+ months; Surgery type: Coronary stents; Additional info: Fvo TECHNIQUE: Imaging protocol: Radiologic exam of the chest. Views: 1 view. COMPARISON: CT angio chest PE protcl [id number] 05/04/2025 6:02 PM FINDINGS: Lungs: Infiltrate in the right lower lobe, concerning for pneumonia with other etiologies not excluded. Pleural spaces: Unremarkable. No pleural effusion. No pneumothorax. Heart/Mediastinum: Unremarkable. No cardiomegaly. Bones/joints: Unremarkable. XR/XR chest 1V portable [id number] IMPRESSION: Infiltrate in the right lower lobe, concerning for pneumonia with other etiologies not excluded.
--- NOTE | 2025-05-14 17:40 | PC.NURSE ---
Dr. Haynes at bedside. Pt has developed crackles. Lasix 40ml IvP given. Sats 99% on 3L. BP 114/60. Portable chest xray ordered. New orders received to give Lasix 20mg IVP tonight at 2200 (as long as sbp greater than 110mmg)
--- NOTE | 2025-05-14 18:01 | PM.MISC ---
Miscellaneous Note Purpose of Documentation: Patient admitted as a case of acute blood loss anemia admitted overnight and patient s/p endoscopy Note: Status post upper endoscopy since the patient refused for colonoscopy, no evidence of active GI bleeding was found by the surgery team and had some healed ulceration Patient hemoglobin after 2 transfusion was 6.8 started on third transfusion. And clinical examination and chest auscultation the patient had some inspiratory crackles at the bases therefore 40 mg of IV Lasix provided and to monitor the urinary output through Robertson's catheter Considering clinical assessment and blood pressure to repeat 20 mg of IV Lasix at night CBC 3 times If the patient hemoglobin is further dropping then CT angio to consider. To continue with high-dose PPI 40 mg twice daily with Carafate 1 g twice daily. If the patient is stable then to follow-up with the surgery clinic as outpatient
--- NOTE | 2025-05-14 21:00 | XRR_ITS ---
PROCEDURE INFORMATION: Exam: XR Chest Exam date and time: 05/14/2025 9:06 PM Age: 74 years old Clinical indication: Screening exam; Other screening; Additional info: Post transfusion TECHNIQUE: Imaging protocol: Radiologic exam of the chest. Views: 1 view. COMPARISON: CR (CHEST, ) 05/14/2025 5:57 PM FINDINGS: Lungs: Two views demonstrate resolution of right lower lobe airspace opacity, likely due to technical factors , atelectasis or poor inspiration. A few scattered nonspecific although chronic appearing strands. Pleural spaces: Unremarkable. No pleural effusion. No pneumothorax. Heart/Mediastinum: Unremarkable. No cardiomegaly. Bones/joints: Unremarkable. XR/XR chest 1V portable [id number] IMPRESSION: Two views demonstrate resolution of right lower lobe airspace opacity, presumably due to technical factors, atelectasis or poor inspiration.
[2025-05-14] MEDS: FUROsemide 10 mg/mL SDV 2mL 20 MG IVP (21:31)
[2025-05-14 22:53] LABS: Hematocrit 25.3 % (37-53); Hemoglobin 7.60 g/dL (11.27-16.99); Mean Corpuscular HGB Conc 30.0 g/dL (30-55); Mean Corpuscular Hemoglobin 26.7 pg (27-33); Mean Corpuscular Volume 88.8 fl (82-101); Nucleated Red Blood Cells % 0.4 %; Platelet Count 335 10^3/cmm (157-399); Red Blood Count 2.85 10^6/uL (3.85-5.65); White Blood Count 11.81 10^3/uL (3.29-11.43)
[2025-05-15] VITALS (7 sets, daily range): BP systolic 102–155; BP diastolic 54–77; PULSE 69–81; RESP 16–20; TEMP 36.5–36.7; O2SAT 95–100; BMI 40.8
[2025-05-15 04:56] LABS: Hematocrit 27.1 % (37-53); Hemoglobin 8.10 g/dL (11.27-16.99); Mean Corpuscular HGB Conc 29.9 g/dL (30-55); Mean Corpuscular Hemoglobin 26.7 pg (27-33); Mean Corpuscular Volume 89.4 fl (82-101); Nucleated Red Blood Cells % 0.4 %; Platelet Count 334 10^3/cmm (157-399); Red Blood Count 3.03 10^6/uL (3.85-5.65); White Blood Count 10.85 10^3/uL (3.29-11.43)
[2025-05-15 05:16] LABS: Alanine Aminotransferase 8 U/L (0-41); Albumin Level 2.8 g/dL (3.5-5.2); Alkaline Phosphatase 119 U/L (40-130); Anion Gap 12.9 (5-19); Aspartate Amino Transferase 13 U/L (0-40); Blood Urea Nitrogen 28 mg/dL (8-23); Calcium 8.3 mg/dL (8.5-10.5); Carbon Dioxide 35 mmol/L (22-29); Chloride 95 mmol/L (98-107); Creatinine Clr Calc Pharmacy 94.0738; Globulin 5.1 g/dL (1.3-4.6); Glucose 97 mg/dL (65-115); Osmolality Calculated 293 mOsm/kg (285-295); Potassium 3.9 mmol/L (3.5-5.1); Sodium 139 mmol/L (136-145); Total Protein 7.9 g/dL (6.6-8.7)
[2025-05-15] MEDS: pantoprazole 40 mg SDV IVP (09:05)
--- NOTE | 2025-05-15 13:37 | P.DS_ITS ---
Discharge Providers Date of Admission: 05/13/25 23:25 Date of Discharge: May 15, 2025 Attending Provider at Admission: Cole Sheriff MD Attending Provider at Discharge: Joe Haynes MD Primary Care Provider: Otilio Huang Diagnoses at Discharge Discharge Diagnosis 1. Positive occult stool blood test: 2. Pulmonary embolism: 3. Acute upper GI bleeding: Reason for Visit Reason for Visit: abnormal labs Brief History: As per the previous notes and the patient Edson Jaffe is a 74 year old male recently discharged 05/06/2025. Patient has a long complicated history of congestive heart failure, atrial fibrillation and DVT, coronary artery disease status post PCI January 2025 at [facility] treated with aspirin Plavix and Eliquis. Patient had longstanding anemia with GI bleed during his admission 04/05/2025 to 04/10/2025. During that hospitalization he required 4 units packed red cells and Eliquis was stopped. General surgery was consulted and due to acute illness did not pursue endoscopy inpatient. Plan was to pursue scopes as outpatient but at time of follow-up on 04/24/2025 decision was made to postpone endoscopy due to high risk patient with follow-up just as needed. Eliquis was not restarted until the patient was readmitted from 05/04/2025 to 05/06/2025 with bilateral pulmonary embolisms and bilateral DVTs. During that admission time the patient medications were reconciled after thorough discussion with the cardiology and was elected to maintain Plavix as monotherapy given the patient's high risk of bleeding. And he was started on full dose anticoagulation with apixaban. Now the patient comes in with acute GI bleed again with elevated BUN to creatinine ratio 43-1.1. Hematocrit is down to 19. Dr. Mark has contacted Dr. Faye and only underwent EGD to see further source of bleeding Hospital Course Hospital Course Patient was admitted in the hospital and received 3 units of PRBC undercover of Lasix. He underwent EGD which did not show any significant source of bleeding. His hemoglobin trend was stable The patient did not report any further melena. He was offered colonoscopy and all the risk and benefits were discussed with complications but the patient refused to go for colonoscopy. Patient retrospect review of the chart was done and his medication were reconciled at the time of discharge since he was only kept on clopidogrel and cardiology also documented in their chart for the patient due to risk of significant bleeding. Patient not to be on aspirin. And he was given apixaban 5 mg twice daily and his last discharge on 05/06/2025 after having PE. He has a chronic indwelling Robertson catheter. And based on patient presentation of significant GI bleeding his apixaban dose reduced to his to 2.5 mg twice daily. The patient was made aware about these changes and all the risk and benefits expressed explained. Patient were provided adequate follow-ups with cardiology/surgery/PCP for further medication reconciliation according to his comorbidities and to avoid any future recurrences of significant GI bleeding leading to life-threatening consequences. Further changes and amendments were also discussed with the patient and he agreed with the plan of care. The medication changes were also [facility] to optimize his further care postdischarge. Patient condition has been discussed at length with the patient/family, I have independently reviewed the chart labs imaging/diagnostics/EKG. the goals of care and code status with the patient/family/NOK/legal security representative, and documented accordingly. The patient/family has been informed about the current condition and further plan of care. Agreed with the plan of care and understood without any language barrier. Every effort was made to ensure accuracy of budget and policy analyst. Any obvious errors or omissions should be clarified with the author of the document. Physical Exam Narrative: General: Alert and oriented, obese gentleman without any distress daily lying comfortably on 3 L nasal cannula CVS: Regular rate rhythm with normal rate, S1-S2 normal, no murmurs appreciated Pulm: Bilateral equal air entry in the upper middle zones and mild crackles appreciated on inspiration on the lower zones, the patient is not in distress no stridor and no wheezes appreciated However the respiratory examination is limited secondary to his thick chest wall and morbid obesity Abdomen positive bowel tones soft obese nontender Neuro: Alert oriented and no gross focal neurological deficit Extremities: Mild trace edema up to mid shins Robertson is in place with light-colored yellow urine Urinary Catheter Management: Robertson: Cath Placed During This Visit: yes Reason for Continuing Indwelling Catheter: Assist Healing of Perineal & Sacral Wounds- Incontinent Patients Urinary Catheter Date of Insertion: 05/14/25 Discharge Data Studies Completed and Pending Completed Studies During Hospitalization Category Date Time Status XR chest 1V portable [id number] Routine Exams 05/14/25 21:00 Completed XR chest 1V portable [id number] Stat Exams 05/14/25 17:37 Completed Radiology Impressions Chest X-Ray 05/14/25 21:00 IMPRESSION: Two views demonstrate resolution of right lower lobe airspace opacity, presumably due to technical factors, atelectasis or poor inspiration. Laboratory Results WBC 10.85 10^3/uL (3.29-11.43) 05/15/25 04:25 RBC 3.03 10^6/uL (3.85-5.65) L 05/15/25 04:25 Hgb 8.10 g/dL (11.27-16.99) L 05/15/25 04:25 Hct 27.1 % (37-53) L 05/15/25 04:25 MCV 89.4 fl (82-101) 05/15/25 04:25 MCH 26.7 pg (27-33) L 05/15/25 04:25 MCHC 29.9 g/dL (30-55) L 05/15/25 04:25 RDW 18.4 % (12.1-15.1) H 05/15/25 04:25 Plt Count 334 10^3/cmm (157-399) 05/15/25 04:25 MPV 10.0 fL (7.4-10.4) 05/15/25 04:25 Neut % (Auto) 76.5 % 05/15/25 04:25 Lymph % (Auto) 9.4 % 05/15/25 04:25 Chase % (Auto) 9.5 % 05/15/25 04:25 Eos % (Auto) 3.3 % 05/15/25 04:25 Baso % (Auto) 0.6 % 05/15/25 04:25 Neut # (Auto) 8.30 10^3/uL (1.8-7.7) H 05/15/25 04:25 Lymph # (Auto) 1.0 10^3/uL (0.8-4.8) 05/15/25 04:25 Chase # (Auto) 1.0 10^3/uL (0.2-0.9) H 05/15/25 04:25 Eos # (Auto) 0.4 10^3/uL (0.0-0.8) 05/15/25 04:25 Baso # (Auto) 0.1 10^3/uL (0.0-0.1) 05/15/25 04:25 Nucleated RBC % (auto) 0.4 % 05/15/25 04:25 Nucleated RBCs # 0.0 /100WBC 05/15/25 04:25 PT 17.90 SECONDS (12.1-14.9) H 05/13/25 22:35 INR 1.38 (0.8-1.2) H 05/13/25 22:35 APTT 30.5 SECONDS (23.9-36.7) 05/13/25 22:35 Sodium 139 mmol/L (136-145) 05/15/25 04:25 Potassium 3.9 mmol/L (3.5-5.1) 05/15/25 04:25 Chloride 95 mmol/L (98-107) L 05/15/25 04:25 Carbon Dioxide 35 mmol/L (22-29) H 05/15/25 04:25 Anion Gap 12.9 (5-19) 05/15/25 04:25 BUN 28 mg/dL (8-23) H 05/15/25 04:25 Creatinine 1.0 mg/dL (0.7-1.2) 05/15/25 04:25 GFR Calculation Not Reportable 05/15/25 04:25 Glucose 97 mg/dL (65-115) 05/15/25 04:25 POC Glucose 110 mg/dL (70-110) 05/15/25 10:42 Calculated Osmolality 293 mOsm/kg (285-295) 05/15/25 04:25 Calcium 8.3 mg/dL (8.5-10.5) L 05/15/25 04:25 Total Bilirubin 0.4 mg/dL (0.15-1.2) 05/15/25 04:25 AST 13 U/L (0-40) 05/15/25 04:25 ALT 8 U/L (0-41) 05/15/25 04:25 Alkaline Phosphatase 119 U/L (40-130) 05/15/25 04:25 Total Protein 7.9 g/dL (6.6-8.7) 05/15/25 04:25 Albumin 2.8 g/dL (3.5-5.2) L 05/15/25 04:25 Globulin 5.1 g/dL (1.3-4.6) H 05/15/25 04:25 Blood Type O Positive 05/13/25 22:41 Rho(D) Type Rh positive 05/13/25 22:41 Antibody Screen Negative 05/13/25 22:41 Crossmatch See Detail 05/13/25 22:41 Vitals Last Vital Signs Temp 97.7 F 05/15/25 11:13 Pulse 69 05/15/25 11:13 Resp 17 05/15/25 11:13 BP 106/68 05/15/25 11:13 Pulse Ox 97 05/15/25 11:13 O2 Del Method Nasal Cannula 05/15/25 11:13 O2 Flow Rate 3 05/15/25 11:13 Discharge Plan Discharge Patient Disposition: Xfer SNF Condition: Stable Prescriptions: Continued (DME) Right cockup splint See Rx Instructions .Route .MEDSUPPLY Qty: 1 0RF Rx Instructions: As directed albuterol sulfate 2.5 mg /3 mL (0.083 %) solution for nebulization 2.5 mg continuous nebulization .TID PRN (Reason: Shortness Of Breath) triamcinolone acetonide 0.5 % cream See Rx Instructions .ROUTE .COMPLEX Rx Instructions: 1 application topically to buttocks every shift for itching/rash. acetaminophen [Tylenol] 325 mg Tablet 650 mg PO Q4H PRN (Reason: elevated temp/pain) atorvastatin 40 mg tablet 40 mg PO QAM melatonin 3 mg Tablet 6 mg PO BEDTIME PRN (Reason: Insomnia) clopidogrel 75 mg tablet 75 mg PO DAILY nitroglycerin 0.4 mg tablet, sublingual See Rx Instructions .ROUTE .COMPLEX Rx Instructions: Give 1 tablet 0.4 sublingual every 5 minutes as needed for chest pain x3 doses if no relief call multivitamin Tablet 1 tab PO QAM sennosides [senna] 8.6 mg Tablet 8.6 mg PO DAILY PRN (Reason: Constipation) magnesium hydroxide [Milk of Magnesia] 400 mg/5 mL Suspension 30 ml PO DAILY PRN (Reason: Constipation) bisacodyl 10 mg Suppository 10 mg CO .Q72H PRN (Reason: Constipation) docusate sodium [Colace] 100 mg Capsule 100 mg PO BID ergocalciferol (vitamin D2) 1,250 mcg (50,000 unit) capsule 50,000 mcg PO Q30D polyethylene glycol 3350 [Miralax] 17 gram/dose Powder 17 g PO DAILY PRN (Reason: bowel management) albuterol sulfate 90 mcg/actuation HFA aerosol inhaler 2 puff INHALATION Q4H PRN (Reason: Shortness Of Breath Or Wheezing) alum-mag hydroxide-simeth [Mylanta Maximum Strength] 400-400-40 mg/5 mL Suspension 30 ml PO Q2H PRN (Reason: indigeston/heartburn/gas) Trelegy Ellipta 200-62.5-25 mcg blister with device 1 inh INHALATION DAILY loperamide [Imodium A-D] 2 mg Tablet 2 mg PO Q6H PRN (Reason: Diarrhea) oxycodone-acetaminophen 10-325 mg tablet 1 tab PO Q6H PRN (Reason: Pain) gabapentin 300 mg capsule 300 mg PO BID levothyroxine 50 mcg tablet 50 mcg PO DAILY fluoxetine 20 mg capsule 20 mg PO DAILY Rx Instructions: along with 10mg to=30mg total bisacodyl 5 mg Tablet 5 mg PO DAILY PRN (Reason: Constipation) potassium chloride 10 mEq tablet,ER particles/crystals 10 meq PO DAILY Jardiance 10 mg tablet 10 mg PO DAILY sucralfate 100 mg/mL Suspension 1 g PO Q6H Qty: 420 2RF Ozempic 1 mg/dose (4 mg/3 mL) pen injector 1 mg SUBCUT Q7D Rx Instructions: metoprolol tartrate 25 mg Tablet 12.5 mg PO DAILY buspirone 5 mg tablet 5 mg PO BID bumetanide 2 mg tablet 2 mg PO BID pantoprazole 40 mg tablet,delayed release (DR/EC) 40 mg PO BID Qty: 60 2RF Rx Instructions: 40MG BID FOR 6 WEEKS AND LATER DAILY Changed Eliquis 5 mg Tablet 2.5 mg PO BID@0900,2100 60 Days Qty: 60 0RF Discontinued aspirin 81 mg tablet 81 mg PO DAILY fluoxetine 10 mg capsule 10 mg PO DAILY Rx Instructions: along with 20mg to=30mg total Eliquis 5 mg tablet 10 mg PO Q12H Qty: 30 0RF Aircraft Cabin Cleaner OK for DC: Surgery Discharge Order = DC NOW: Discharge Order (Routine); Ordered 05/15/25 Ordered By: Joe Haynes Referrals: [facility] [Outside] [facility] [Outside] Referral Note: Patient having on and off GI bleed for further management and plan of care Otilio Huang [Primary Care Provider, Internal Medicine] - 4-7 days Referral Note: POST DISCHARGE FOLLOW UP Admitted as a case of GI bleed, his Eliquis dose has been reduced to 2.5 mg twice daily and need further medication reconciliation and assessment Brigido Faye MD [Physician, General Surgery] - 7-10 days Referral Note: Postdischarge follow-up outpatient, was admitted as a case of GI bleed status post endoscopy and further discussion of colonoscopy To follow the CBC as well as outpatient Milagro Currie FNP [Nurse Practitioner, Cardiology] Referral Note: Patient on apixaban, past medical history of PCI status post stenting on antiplatelet regimen History of atrial fibrillation/DVTs however the patient has been having on and off bleeding episodes, therefore need further recommendations Discharge Diet: Advance as tolerated, As Directed and GI Soft Discharge Activity: Increase activity as tolerated and Limit activity as instructed Patient Instructions: Gastrointestinal Bleeding (DC), Anemia (DC), GI Post Discharge Instructions w/ Anesthesia, Opioid Safety, Patient Portal & Diana Instructions Discharge Attestations Time Spent in Discharge Care*: greater than 30 min Specific Discharge Activities: educating patient, educating and/or supporting family/caregiver, discussing with pcp/other providers, discussing with classification case manager/social workers/dc planners, documenting/other paperwork and evaluating patient/reviewing data Status at Discharge: Cognitive status at discharge: cognitively intact , Behavioral status at discharge: cooperative , Functional status at discharge: other assisted ambulation , Overall status at discharge: patient is back to baseline Quality Metrics Clinical Quality Measures [ No reported AMI, CVA or VTE this stay] Coding Level of Care Code 01894 Diagnoses Positive occult stool blood test R19.5 Pulmonary embolism I26.99 Acute upper GI bleeding K92.2
[2025-05-15] MEDS: oxyCODONE-APAP 10-325 mg Tablet 1 TAB PO (13:51)
--- NOTE | 2025-05-15 14:07 | PC.NURSE ---
Discharge Note Patient discharged to home via SNF transport accompanied by [facility] Transport personnel. Discharge instructions reviewed with patient and/or premium service representative. Mobile pharmacy medications and/or prescriptions provided. Belongings/home medications returned.
== END 2025-05-15 15:19 | disposition skilled nursing facility (03) | DRG 378 ==
LOC: ER 23:35 → ER IP 23:42 → MEDSURG 05-14 06:35
PROVIDERS: Surgery; Admitting Provider Internal Medicine; Emergency Provider Emergency Medicine; PCP Student in an Organized Health Care Education/Training Program; Visit Provider Student in an Organized Health Care Education/Training Program
PROC: 0DJ08ZZ Inspection of Upper Intestinal Tract, Via Natural or Artificial Opening Endoscopic (ICD-10-PCS; principal; 2025-05-14 12:00)
DX: K29.01 Acute gastritis with bleeding (principal); D62 Acute posthemorrhagic anemia; I13.0 Hypertensive heart and chronic kidney disease with heart failure and stage 1 through stage 4 chronic kidney disease, or unspecified chronic kidney disease; I50.20 Unspecified systolic (congestive) heart failure; Z68.41 Body mass index [BMI] 40.0-44.9, adult; J96.11 Chronic respiratory failure with hypoxia; D50.9 Iron deficiency anemia, unspecified; N18.9 Chronic kidney disease, unspecified; I48.91 Unspecified atrial fibrillation; I25.10 Atherosclerotic heart disease of native coronary artery without angina pectoris; E66.01 Morbid (severe) obesity due to excess calories; J44.9 Chronic obstructive pulmonary disease, unspecified; Z66 Do not resuscitate; I25.2 Old myocardial infarction; Z99.81 Dependence on supplemental oxygen; Z79.02 Long term (current) use of antithrombotics/antiplatelets; Z79.51 Long term (current) use of inhaled steroids; Z79.84 Long term (current) use of oral hypoglycemic drugs; Z95.5 Presence of coronary angioplasty implant and graft; Z86.718 Personal history of other venous thrombosis and embolism; Z87.891 Personal history of nicotine dependence; Z87.440 Personal history of urinary (tract) infections; Z86.711 Personal history of pulmonary embolism
CPT/HCPCS: 36415; 36416; 36430; 43239; 51702; 71045; 80053; 82962; 85025; 85610; 85730; 86850; 86900; 86920; 96374; 96376; 99285; 99291; J1938; J2470; J2704; J7030; J9999; P9016

== ENCOUNTER 2025-05-18 07:42 | Inpatient (IN) | payer MEDICARE, MEDICAID, SELFPAY ==
[2025-05-18] VITALS (114 sets, daily range): BP systolic 93–174; BP diastolic 50–99; PULSE 61–110; RESP 8–33; TEMP 36.5–37.1; O2SAT 79–100; BMI 40.6; BMI 41.1
--- NOTE | 2025-05-18 07:46 | ECG_ITS ---
[facility]: 2025-05-18 Pat Name: Edson Jaffe Department: Room: Gender: Male Designer: : 1950 Requested By: Ty Olivo Order Number: [id number] Richar MD: Michelle Sandhu M.D. Measurements Intervals [place] Rate: 108 P: 0 VT: 0 QRS: 42 QRSD: 121 T: 99 QT: 339 QTc: 456 Interpretive Statements UNCERTAIN IRREGULAR RHYTHM- Heavy baseline artifacts; Need to repeat the study. SEPTAL MYOCARDIAL INFARCTION , OF INDETERMINATE AGE [40+ ms Q WAVE IN V1/V2] CRITICAL TEST RESULT Compared to ECG 04/06/2025 08:12:15 Sinus rhythm no longer present Myocardial infarct finding still present Electronically Signed On 05-18-2025 17:43:19 CDT by Michelle Sandhu M.D. [email or web address]
--- NOTE | 2025-05-18 07:46 | XRR_ITS ---
PROCEDURE INFORMATION: Exam: XR Chest Exam date and time: 05/18/2025 8:05 AM Age: 74 years old Clinical indication: Shortness of breath; Prior surgery; Surgery date: 6+ months; Surgery type: Stents; Additional info: SOB TECHNIQUE: Imaging protocol: Radiologic exam of the chest. Views: 1 view. COMPARISON: CR (CHEST, ) 05/14/2025 9:06 PM FINDINGS: Lungs: Underlying appearance suggest component of chronic interstitial thickening. More focal atelectasis or infiltrate of right lower lobe. Additional component of vascular interstitial prominence is not excluded. Pleural spaces: Suspicion bilateral pleural effusions greater on the left. Heart/Mediastinum: Cardiomegaly. Bones/joints: Osteopenia. XR/XR chest 1V portable [id number] IMPRESSION: 1. Cardiomegaly. 2. Underlying component of interstitial thickening or combination pulmonary venous congestion. 3. Superimposed infiltrate or atelectasis right lower lobe. 4. Likely bilateral pleural effusions greater on the left.
--- OUTSIDE RECORDS SUMMARY | 2025-05-18 07:49 | XMS_ITS | Encounter Summary ---
Author Organization [facility] Address [address] [place] [address] Care Team Providers Care Clinical Administrator Name Role Phone Roshan Jimenez DO Primary Care Provider Unav ailable Encounter Details Date Type Department Care Team (Latest Contact Info) Description 01/22/1999 Outpatient Historical [facility] [address] [place] [address] Noé Rosa, DPM [address] [place] [address] Ingrowing nail (Primary Dx) Social History Tobacco Use Types Packs/Day Years Used Date Smoking Tobacco: Never Assessed Sex and Gender Information Value Date Recorded Sex Assigned at Not on file 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
--- OUTSIDE RECORDS SUMMARY | 2025-05-18 07:49 | XMS_ITS | Encounter Summary ---
Author Organization [facility] Address [address] [place] [address] Care Team Providers Care Paperhanger Name Role Phone Roshan Jimenez DO Primary Care Provider Unav ailable Encounter Details Date Type Department Care Team (Latest Contact Info) Description 11/01/2006 Outpatient Historical [facility] [address] [place] [address] [place] [address] John Black MD NO ADDRESS ON FILE Pre-Operative Cardiovascular Examination (Primary Dx) Social History Tobacco Use Types Packs/Day Years Used Date Smoking Tobacco: Never Assessed Sex and Gender Information Value Date Recorded Sex Assigned at Not on file 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 Sex 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 Gender Identity Not on file Sexual Orientation Not on file documented as of this encounter Plan of Treatment Not on file documented as of this encounter Procedures Procedure Name Priority Date/Time Associated Diagnosis Comments COMPREHENSIVE METABOLIC PANEL Routine 11/01/2006 10:35 AM DRAPERY SUPERVISOR XR CHEST PA OR AP 1 VW Routine 7 10:09 AM DRAPERY SUPERVISOR documented in this encounter Results * (ABNORMAL) COMPREHENSIVE METABOLIC PANEL (11/01/2006 10:35 AM DRAPERY SUPERVISOR) GLUCOSE 99 70 - 110 mg/dL INTERFACE [...] mOsm/Kg INTERFACE SYSTEM 11/01/2006 10:3 5 AM DRAPERY SUPERVISOR John Black MD CHEMISTRY ORDERABLES Edited INTERFACE SYSTEM Refer to clinic/hospital department * XR CHEST PA OR AP (11/01/2006 10:09 AM DRAPERY SUPERVISOR) Anatomical Region Laterality Modality Chest Other 11/01/2006 10:0 9 AM DRAPERY SUPERVISOR Narrative 11/01/2006 10:09 AM DRAPERY SUPERVISOR PA CHEST: 11/01/2006Chronic appearing accentuated bronchovascular markings [...] Primary documented in this encounter Care Teams Paperhanger Relationship Specialty Start Date End Date Roshan Jimenez DO NO ADDRESS ON FILE PCP - General 03/26/03 documented as of this encounter
--- OUTSIDE RECORDS SUMMARY | 2025-05-18 07:49 | XMS_ITS | Encounter Summary ---
Author Organization [facility] Address [address] [place] [address] Care Team Providers Care Proof Technician Helper Name Role Phone Roshan Jimenez DO Primary Care Provider Unav ailable Encounter Details Date Type Department Care Team (Latest Contact Info) Description 06/23/1999 Outpatient [facility] [address] [place] [address] Roshan Jimenez DO NO ADDRESS ON FILE Unspecified essential hypertension (Primary Dx); Reflux esophagitis; Obesity, unspecified; Chronic airway obstruction, not elsewhere classified (CMS/HCC) Social History Tobacco Use Types Packs/Day Years Used Date Smoking Tobacco: Never Assessed Sex and Gender Information Value Date Recorded Sex Assigned at Not on file 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
--- OUTSIDE RECORDS SUMMARY | 2025-05-18 07:49 | XMS_ITS | Encounter Summary ---
Author Organization [facility] Address [address] [place] [address] Care Team Providers Care Egg Processing Supervisor Name Role Phone Roshan Jimenez DO Primary Care Provider Unav ailable Encounter Details Date Type Department Care Team (Latest Contact Info) Description 02/04/2003 Outpatient [facility] [address] [place] [address] Roshan Jimenez DO NO ADDRESS ON FILE HYPERTENSION NOS (Primary Dx); OBESITY NOS; CHRONIC AIRWAY OBSTRUCTION NEC (CMS/[facility]); OSTEOARTHROS NOS-UNSPEC Social History Tobacco Use Types Packs/Day Years Used Date Smoking Tobacco: Never Assessed Sex and Gender Information Value Date Recorded Sex Assigned at Not on file Legal Sex Male 4:59 AM PRIVACY SPECIALIST Gender Identity Not on file Sexual Orientation Not on file documented as of this encounter Plan of Treatment Not on file documented as of this encounter Visit Diagnoses Diagnosis Unspecified essential hypertension- Primary Obesity, unspecified Chronic airway obstruction, not elsewhere classified (CMS/HCC) Chronic airway obstruction, not elsewhere classified Osteoarthrosis, unspecified whether generalized or localized, unspecified site documented in this encounter Care Teams Egg Processing Supervisor Relationship Specialty Start Date End Date Roshan Jimenez DO NO ADDRESS ON FILE PCP - General 03/26/03 documented as of this encounter
--- OUTSIDE RECORDS SUMMARY | 2025-05-18 07:49 | XMS_ITS | Encounter Summary ---
Author Organization [facility] Address [address] [place] [address] Care Team Providers Care Machinery Mechanic Name Role Phone Roshan Jimenez DO Primary Care Provider Unav ailable Encounter Details Date Type Department Care Team (Latest Contact Info) Description 03/26/2003 Outpatient Historical [facility] [place] [address] [address] Demetri Chávez MD [address] [facility] [address] [place] [address] SCREENING MAL NEOP-COLON (Primary Dx) Social History Tobacco Use Types Packs/Day Years Used Date Smoking Tobacco: Never Assessed Sex and Gender Information Value Date Recorded Sex Assigned at Not on file 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
--- OUTSIDE RECORDS SUMMARY | 2025-05-18 07:49 | XMS_ITS | Encounter Summary ---
Author Organization [facility] Address [address] [place] [address] Care Team Providers Care Metal Sprayer Machined Parts Name Role Phone Roshan Jimenez DO Primary Care Provider Unav ailable Encounter Details Date Type Department Care Team (Latest Contact Info) Description 08/05/2003 Outpatient [facility] [place] [address] [place] [address] Roshan Jimenez DO NO ADDRESS ON FILE HYPERTENSION NOS (Primary Dx); CHRONIC AIRWAY OBSTRUCTION NEC (CMS/HCC); UNSPECIFIED VIRAL INFECTION Social History Tobacco Use Types Packs/Day Years Used Date Smoking Tobacco: Never Assessed Sex and Gender Information Value Date Recorded Sex Assigned at Not on file Legal Sex Male 4:59 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
--- OUTSIDE RECORDS SUMMARY | 2025-05-18 07:49 | XMS_ITS | Encounter Summary ---
Author Organization [facility] Address [address] [place] [address] Care Team Providers Care Woods Rider Name Role Phone Roshan Jimenez DO Primary Care Provider Unav ailable Encounter Details Date Type Department Care Team (Latest Contact Info) Description 02/20/2007 Outpatient [facility] [address] [place] [address] Roshan Jimenez DO NO ADDRESS ON FILE Chronic Airway Obstruction, not Elsewhere Classified (CMS/HCC) (Primary Dx); Unspecified Asthma; Obesity, Unspecified; Tobacco Use Disorder Social History Tobacco Use Types Packs/Day Years Used Date Smoking Tobacco: Never Assessed Sex and Gender Information Value Date Recorded Sex Assigned at Not on file Legal Sex Male 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
--- OUTSIDE RECORDS SUMMARY | 2025-05-18 07:49 | XMS_ITS | Encounter Summary ---
Author Organization [facility] Address [address] [place] [address] Care Team Providers Care Interlocking And Signal Mechanic Name Role Phone Roshan Jimenez DO Primary Care Provider Unav ailable Encounter Details Date Type Department Care Team (Late st Contact Info) Description 05/27/2008 Outpatient Historical [facility] [address] [place] [address] [place] [address] Yusef Malagon MD NO ADDRESS ON FILE Social History Tobacco Use Types Packs/Day Years Used Date Smoking Tobacco: Every Day Cigarettes 1 40 Alcohol Use Standard Drinks/Week Comments No 0 (1 standard drink = 0.6 oz pur e alcohol) Sex and Gender Information Value Date Recorded Sex Assigned at Not on file 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 Gender Identity Not on file Sexual [...] 10:56 AM CDT) NITRITE UA NEGATIVE NEGATIVE [facility] UROBILINOGEN UA 0.2 0.2 [facility] CLARITY UA Clear Clear [facility] GLUCOSE UA NEGATIVE NEGATIVE [facility] SPECIFIC GRAVITY UA 1.005 <=1.005 [facility] PH UA 6.0 5.0 - 9.0 [facility] BILIRUBIN UA NEGATIVE NEGATIVE [facility] LEUKOCYTE ESTERASE UA NEGATIVE NEGATIVE [facility] MICRO EXAM No No [facility] KETONES UA NEGATIVE NEGATIVE [facility] COLOR UA Pale Yellow Straw [facility] PROTEIN UA NEGATIVE NEGATIVE [facility] BLOOD UA NEGATIVE NEGATIVE [facility] Urine specimen (specimen) 05/27/2008 10:56 AM CDT 05/27/2008 10:56 AM CDT us Yusef Malagon MD URINE ORDERABLES Final Result Performing Organization Address City/State/[facility] Co de Phone Number INTERFACE SYSTEM Refer to clinic/hospital department [facility] CLIA# [id number] [address] [place] [address] * CBC WITH DIFFERENTIAL (05/27/2008 10:53 AM CDT) HEMATOCRIT 50.0 41.0 - 53.0 % [facility] PLATELETS 245 140 - 440 K/ul [facility] EOSINOPHILS 3.7 0.0 - 7.0 % [facility] WBC 8.5 4.8 - 10.8 K/ul [facility] EOSINOPHIL ABSOLUTE 0.3 0.0 - 0.7 K/ul [facility] RBC 5.00 4.60 - 6.20 Mil/ul [facility] MCHC 33.0 30.0 - 35.0 g/dL [facility] LYMPHOCYTES 25.7 24.0 - 44.0 % [facility] MONOCYTE ABSOLUTE 0.5 0.1 - 0.6 K/ul [facility] BASOPHILS ABSOLUTE 0.1 0.0 - 0.2 K/ul [facility] MCV 100.0 84.0 - 103.0 Fl [facility] BASOPHILS 0.7 0.0 - 1.0 % [facility] MPV 11.7 8.9 - 12.8 Fl [facility] HEMOGLOBIN 16.5 14.0 - 18.0 g/dL [facility] MONOCYTES 5.8 2.0 - 10.0 % [facility] RDW 14.3 11.0 - 14.5 % [facility] LYMPHOCYTE ABSOLUTE 2.2 1.2 - 4.0 K/ul [facility] NEUTROPHILS 64.1 42.2 - 75.2 % [facility] MCH 33.0 27.0 - 34.0 pg [facility] NEUTROPHIL ABSOLUTE 5.4 2.0 - 8.0 K/ul [facility] Blood specimen (specimen) 05/27/2008 10:53 AM CDT 05/27/2008 11:08 AM CDT us Yusef Malagon MD HEMATOLOGY ORDERABLES Final Re sult Performing Organization Address City/[facility] Co de Phone Number INTERFACE SYSTEM Refer to clinic/hospital department [facility] CLIA# [id number] [address] [place] [address] * ANTIBODY SCREEN (05/27/2008 10:53 AM CDT) ANTIBODY SCREEN Negative [facility] Blood specimen (specimen) 05/27/2008 10:53 AM CDT 05/27/2008 11:08 AM CDT us Yusef Malagon MD BLOOD BANK ORDERABLES Final Re sult Performing Organization Address City/[facility] Co de Phone Number INTERFACE SYSTEM Refer to clinic/hospital department [facility] CLIA# [id number] [address] [place] [address] * ABORH TYPING (05/27/2008 10:53 AM CDT) ABO/RH TYPE O Positive [facility] Blood specimen (specimen) 05/27/2008 10:53 AM CDT 05/27/2008 11:08 AM CDT us Yusef Malagon MD BLOOD BANK ORDERABLES Final Re sult Performing Organization Address [facility] Phone Number INTERFACE SYSTEM Refer to clinic/hospital department [facility] CLIA# [id number] [address] [place] [address] * BASIC METABOLIC PANEL (05/27/2008 10:53 AM CDT) POTASSIUM 4.0 3.5 - 5.0 mEq/L [facility] CO2 29 22 - 32 mmol/l [facility] CHLORIDE 109 95 - 110 mEq/L [facility] OSMOLALITY, CALCULATED 294 275 - 295 mOsm/Kg [facility] CREATININE 1.0 0.7 - 1.5 mg/dL [facility] CALCIUM 9.4 8.4 - 10.5 mg/dL [facility] SODIUM 143 136 - 145 mEq/L [facility] GLUCOSE 88 70 - 110 mg/dL [facility] ANION GAP 9 9 - 20 mEq/L [facility] BUN 16 9 - 20 mg/dL [facility] Blood specimen (specimen) 05/27/2008 10:53 AM CDT 05/27/2008 11:08 AM CDT us Yusef Malagon MD CHEMISTRY ORDERABLES Final Res ult Performing Organization Address [facility] de Phone Number INTERFACE SYSTEM Refer to clinic/hospital department [facility] CLIA# [id number] [address] [place] [address] documented in this encounter Visit Diagnoses Not on filedocumented in this encounter Care Teams Interlocking And Signal Mechanic Relationship Specialty Start Date End Date Roshan Jimenez DO NO ADDRESS ON FILE PCP - General 03/26/03 documented as of this encounter
--- OUTSIDE RECORDS SUMMARY | 2025-05-18 07:49 | XMS_ITS | Encounter Summary ---
Author Organization [facility] Address [address] [place] [address] Care Team Providers Care Dry Yard Worker Name Role Phone Roshan Jimenez DO Primary Care Provider Unav ailable Encounter Details Date Type Department Care Team (Latest Contact Info) Description 06/24/1998 Outpatient Historical [facility] Axel Armstrong NO ADDRESS ON FILE Localized osteoarthrosis not specified whether primary or secondary, lower leg (Primary Dx) Social History Tobacco Use Types Packs/Day Years Used Date Smoking Tobacco: Never Assessed Sex and Gender Information Value Date Recorded Sex Assigned at Not on file 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
--- OUTSIDE RECORDS SUMMARY | 2025-05-18 07:49 | XMS_ITS | Encounter Summary ---
Author Organization [facility] Address [address] [place] [address] Care Team Providers Care Display Decorator Name Role Phone Roshan Jimenez DO Primary Care Provider Unav ailable Encounter Details Date Type Department Care Team (Latest Contact Info) Description 11/30/2006 Outpatient Historical [facility] [address] [place] [address] Thomas Harry MD [address] [facility] [address] [place] [address] Follow-Up Examination, Following Unspecified Surgery [...] Primary documented in this encounter Care Teams Display Decorator Relationship Specialty Start Date End Date Roshan Jimenez DO NO ADDRESS ON FILE PCP - General 03/26/03 documented as of this encounter
--- OUTSIDE RECORDS SUMMARY | 2025-05-18 07:49 | XMS_ITS | Encounter Summary ---
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 INR 1.9 [facility] Comment: Expected Values for INR: DVT/PE Goal INR 2.5; range 2.0 - 3.0 Valve Replacement Tissue Goal INR 2.5; range 2.0 - 3.0 Mechanical Goal INR 3.0; range 2.5 - 3.5 POST-MO Goal INR 2.5; range 2.0 - 3.0 or Goal 3.0; range 2.5 - 3.5 Atrial Fibrillation Goal INR 2.5; range 2.0 - 3.0 Ischemic Stroke Goal INR 2.5; range 2.0 - 3.0 For additional information see Guidelines for Anticoagulation available from the pharmacy [facility] [phone] Blood specimen (specimen) 06/09/2008 4:58 AM CDT 06/09/2008 5:24 AM CDT us Moiz Barros MD HEMATOLOGY ORDERABLES Fi nal Result INTERFACE SYSTEM Refer to clinic/hospital department [facility] CLIA# [id number] [address] [place] [address] * (ABNORMAL) PROTIME-INR (06/08/2008 4:50 AM CDT) INR 1.5 [facility] Comment: Expected Values for INR: DVT/PE Goal INR 2.5; range 2.0 - 3.0 Valve Replacement Tissue Goal INR 2.5; range 2.0 - 3.0 Mechanical Goal INR 3.0; range 2.5 - 3.5 POST-MO Goal INR 2.5; range 2.0 - 3.0 or Goal 3.0; range 2.5 - 3.5 Atrial Fibrillation Goal INR 2.5; range 2.0 - 3.0 Ischemic Stroke Goal INR 2.5; range 2.0 - 3.0 For additional information see Guidelines for Anticoagulation available from the pharmacy [facility] [phone] PROTIME 20.0(H) 12.8 - 15.8 Secs [facility] Comment:As of 2007 not e change in normal range. Blood specimen (specimen) 06/08/2008 4:50 AM CDT 06/08/2008 5:18 AM CDT us Moiz Barros MD HEMATOLOGY ORDERABLES Fi nal Result INTERFACE SYSTEM Refer to clinic/hospital department [facility] CLIA# [id number] [address] [place] [address] * (ABNORMAL) CBC WITH DIFFERENTIAL (06/07/2008 5:35 AM CDT) NEUTROPHIL ABSOLUTE 10.9(H) 2.0 - 8.0 K/ul [facility] HEMATOCRIT 40.7(L) 41.0 - 53.0 % [facility] PLATELETS 188 140 - 440 K/ul [facility] EOSINOPHIL ABSOLUTE 0.1 0.0 - 0.7 K/ul [facility] EOSINOPHILS 0.7 0.0 - 7.0 % [facility] RBC 4.15(L) 4.60 - 6.20 Mil/ul [facility] MCHC 32.9 30.0 - 35.0 g/dL [facility] LYMPHOCYTE ABSOLUTE 1.7 1.2 - 4.0 K/ul [facility] LYMPHOCYTES 11.5(L) 24.0 - 44.0 % [facility] MCV 98.1 84.0 - 103.0 Fl [facility] BASOPHILS 0.2 0.0 - 1.0 % [facility] MPV 10.4 8.9 - 12.8 Fl [facility] BASOPHILS ABSOLUTE 0.0 0.0 - 0.2 K/ul [facility] HEMOGLOBIN 13.4(L) 14.0 - 18.0 g/dL [facility] RDW 14.0 11.0 - 14.5 % [facility] MONOCYTES 11.5(H) 2.0 - 10.0 % [facility] MONOCYTE ABSOLUTE 1.7(H) 0.1 - 0.6 K/ul [facility] WBC 14.4(H) 4.8 - 10.8 K/ul [facility] MCH 32.3 27.0 - 34.0 pg [facility] NEUTROPHILS 76.1(H) 42.2 - 75.2 % [facility] Blood specimen (specimen) 06/07/2008 5:35 AM CDT 06/07/2008 5:47 AM CDT us Moiz Barros MD HEMATOLOGY ORDERABLES Fi nal Result INTERFACE SYSTEM Refer to clinic/hospital department [facility]# [id number] [address] [place] [address] * (ABNORMAL) PROTIME-INR (06/07/2008 5:35 AM CDT) PROTIME 18.6(H) 12.8 - 15.8 Secs [facility] Comment:As of 2007 not e change in normal range. INR 1.4 [facility] Comment: Expected Values for INR: DVT/PE Goal INR 2.5; range 2.0 - 3.0 Valve Replacement Tissue Goal INR 2.5; range 2.0 - 3.0 Mechanical Goal INR 3.0; range 2.5 - 3.5 POST-MO Goal INR 2.5; range 2.0 - 3.0 or Goal 3.0; range 2.5 - 3.5 Atrial Fibrillation Goal INR 2.5; range 2.0 - 3.0 Ischemic Stroke Goal INR 2.5; range 2.0 - 3.0 For additional information see Guidelines for Anticoagulation available from the pharmacy [facility] [phone] Blood specimen (specimen) 06/07/2008 5:35 AM CDT 06/07/2008 5:47 AM CDT us Yusef Malagon MD HEMATOLOGY ORDERABLES Final Re sult INTERFACE SYSTEM Refer to clinic/hospital department [facility] CLIA# [id number] [address] [place] [address] * (ABNORMAL) PROTIME-INR (06/06/2008 5:32 AM CDT) PROTIME 16.3(H) 12.8 - 15.8 Secs [facility] Comment:As of 2007 not e change in normal range. INR 1.2 [facility] Comment: Expected Values for INR: DVT/PE Goal INR 2.5; range 2.0 - 3.0 Valve Replacement Tissue Goal INR 2.5; range 2.0 - 3.0 Mechanical Goal INR 3.0; range 2.5 - 3.5 POST-MO Goal INR 2.5; range 2.0 - 3.0 or Goal 3.0; range 2.5 - 3.5 Atrial Fibrillation Goal INR 2.5; range 2.0 - 3.0 Ischemic Stroke Goal INR 2.5; range 2.0 - 3.0 For additional information see Guidelines for Anticoagulation available from the pharmacy [facility] [phone] Blood specimen (specimen) 06/06/2008 5:32 AM CDT 06/06/2008 5:54 AM CDT us Yusef Malagon MD HEMATOLOGY ORDERABLES Final Re sult INTERFACE SYSTEM Refer to clinic/hospital department [facility] CLIA# [id number] [address] [place] [address] * (ABNORMAL) CBC WITH DIFFERENTIAL (06/06/2008 5:32 AM CDT) BASOPHILS 0.3 0.0 - 1.0 % [facility] BASOPHILS ABSOLUTE 0.0 0.0 - 0.2 K/ul [facility] HEMATOCRIT 40.4(L) 41.0 - 53.0 % [facility] PLATELETS 217 140 - 440 K/ul [facility] MONOCYTES 11.3(H) 2.0 - 10.0 % [facility] MONOCYTE ABSOLUTE 1.4(H) 0.1 - 0.6 K/ul [facility] RBC 4.12(L) 4.60 - 6.20 Mil/ul [facility] MCHC 32.7 30.0 - 35.0 g/dL [facility] NEUTROPHIL ABSOLUTE 9.3(H) 2.0 - 8.0 K/ul [facility] MCV 98.1 84.0 - 103.0 Fl [facility] MPV 10.9 8.9 - 12.8 Fl [facility] EOSINOPHIL ABSOLUTE 0.1 0.0 - 0.7 K/ul [facility] EOSINOPHILS 0.6 0.0 - 7.0 % [facility] HEMOGLOBIN 13.2(L) 14.0 - 18.0 g/dL [facility] RDW 13.8 11.0 - 14.5 % [facility] LYMPHOCYTE ABSOLUTE 1.7 1.2 - 4.0 K/ul [facility] LYMPHOCYTES 13.7(L) 24.0 - 44.0 % [facility] WBC 12.5(H) 4.8 - 10.8 K/ul [facility] NEUTROPHILS 74.1 42.2 - 75.2 % [facility] MCH 32.0 27.0 - 34.0 pg [facility] Blood specimen (specimen) 06/06/2008 5:32 AM CDT 06/06/2008 5:56 AM CDT us Yusef Malagon MD HEMATOLOGY ORDERABLES Final Re sult Performing Organization Address [facility] Phone Number INTERFACE SYSTEM Refer to clinic/hospital department [facility] CLIA# [id number] [address] [place] [address] * (ABNORMAL) BASIC METABOLIC PANEL (06/06/2008 5:32 AM CDT) [facility] SODIUM 137 136 - 145 mEq/L [facility] ANION GAP 9 9 - 20 mEq/L [facility] BUN 13 9 - 20 mg/dL [facility] CO2 26 22 - 32 mmol/l [facility] OSMOLALITY, CALCULATED 283 275 - 295 mOsm/Kg [facility] POTASSIUM 3.7 3.5 - 5.0 mEq/L [facility] CREATININE 0.8 0.7 - 1.5 mg/dL [facility] CALCIUM 8.9 8.4 - 10.5 mg/dL [facility] GLUCOSE 122(H) 70 - 110 mg/dL [facility] CHLORIDE 106 95 - 110 mEq/L [facility] Blood specimen (specimen) 06/06/2008 5:32 AM CDT 06/06/2008 5:56 AM CDT us Yusef Malagon MD CHEMISTRY ORDERABLES Final Res ult Performing Organization Address [facility] de Phone Number INTERFACE SYSTEM Refer to [facility] CLIA# [id number] [address] [place] [address] * (ABNORMAL) POC GLUCOSE (06/05/2008 3:01 PM CDT) GLUCOSE POC 115(H) 60 - 100 mg/dL [facility] Venous blood specimen (specimen) 06/05/2008 3:01 PM CDT 06/05/2008 4:38 PM CDT us Yusef Malagon MD POINT OF CARE TESTING Final Re sult INTERFACE SYSTEM Refer to clinic/hospital department [facility] CLIA# [id number] [address] [place] [address] * XR KNEE 1 OR 2 VW [...] GLUCOSE POC 94 60 - 100 mg/dL [facility] Venous blood specimen (specimen) 06/05/2008 11:08 AM CDT 06/06/2008 7:27 AM CDT us Yusef Malagon MD POINT OF CARE TESTING Final Re sult Performing Organization Address City/[facility] Co de Phone Number INTERFACE SYSTEM Refer to clinic/hospital department [facility] CLIA# [id number] [address] [place] [address] * TYPE AND CROSSMATCH (06/05/2008 6:35 AM CDT) Pathologist [facility] BLOOD BANK PRODUCT INTERFACE SYSTEM Blood specimen (specimen) 06/05/2008 6:35 AM CDT 06/05/2008 6:35 AM CDT us Yusef Malagon MD BLOOD BANK ORDERABLES Final Re sult Performing Organization Address City/[facility] de Phone Number INTERFACE SYSTEM Refer to clinic/hospital department documented in this encounter Visit Diagnoses Not on filedocumented in this encounter Care Teams Business Support Coordinator Relationship Specialty Start Date End Date Roshan Jimenez DO NO ADDRESS ON FILE PCP - General 03/26/03 documented as of this encounter
--- OUTSIDE RECORDS SUMMARY | 2025-05-18 07:49 | XMS_ITS | Encounter Summary ---
Author Organization [facility] Address [address] [place] [address] Care Team Providers Care Mri Tech Name Role Phone Roshan Jimenez DO Primary Care Provider Unav ailable Encounter Details Date Type Department Care Team (Latest Contact Info) Description 04/18/2006 Outpatient [facility] [address] [place] [address] Roshan Jimenez DO NO ADDRESS ON FILE Depressive Disorder, not Elsewhere Classified (Primary Dx); Anxiety State, Unspecified; Unspecified Essential Hypertension Social History Tobacco Use Types Packs/Day Years Used Date Smoking Tobacco: Never Assessed Sex and Gender Information Value Date Recorded Sex Assigned at Not on file 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
--- OUTSIDE RECORDS SUMMARY | 2025-05-18 07:49 | XMS_ITS | Encounter Summary ---
Author Organization [facility] Address [address] [place] [address] Care Team Providers Care Hot Frame Tender Name Role Phone Roshan Jimenez DO Primary Care Provider Unav ailable Encounter Details Date Type Department Care Team (Latest Contact Info) Description 04/20/1998 Outpatient [facility] [address] [place] [address] Roshan Jimenez DO NO ADDRESS ON FILE Acute bronchitis (Primary Dx); Obstructive chronic bronchitis with exacerbation (CMS/HCC); Tobacco use disorder; Edema Social History Tobacco Use Types Packs/Day Years Used Date Smoking Tobacco: Never Assessed Sex and Gender Information Value Date Recorded Sex Assigned at Not on file 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
--- OUTSIDE RECORDS SUMMARY | 2025-05-18 07:49 | XMS_ITS | Encounter Summary ---
Author Organization [facility] Address [address] [place] [address] Care Team Providers Care Minor League Baseball Player Name Role Phone Roshan Jimenez DO Primary Care Provider Unav ailable Encounter Details Date Type Department Care Team (Latest Contact Info) Description 07/17/2006 Outpatient [facility] [address] [place] [address] Roshan Jimenez DO NO ADDRESS ON FILE [...] classified documented in this encounter Care Teams Minor League Baseball Player Relationship Specialty Start Date End Date Roshan Jimenez DO NO ADDRESS ON FILE PCP - General 03/26/03 documented as of this encounter
--- OUTSIDE RECORDS SUMMARY | 2025-05-18 07:49 | XMS_ITS | Encounter Summary ---
Author Organization [facility] Address [address] [place] [address] Care Team Providers Care Combat Systems Engineer Name Role Phone Roshan Jimenez DO Primary Care Provider Unav ailable Encounter Details Date Type Department Care Team (Latest Contact Info) Description 07/13/2005 Outpatient [facility] [address] [place] [id number] Roshan Jimenez DO NO ADDRESS ON FILE ASTHMA UNSPECIFIED (Primary Dx); CHRONIC AIRWAY OBSTRUCTION NEC (CMS/[facility]); OBESITY NOS; VACCINE FOR STREP PNEUMONIAE Social History Tobacco Use Types Packs/Day Years Used Date Smoking Tobacco: Never Assessed Sex and Gender Information Value Date Recorded Sex Assigned at Not on file 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
--- OUTSIDE RECORDS SUMMARY | 2025-05-18 07:49 | XMS_ITS | Encounter Summary ---
Author Organization [facility] Address [address] [place] [address] Care Team Providers Care Rn Clinical Quality Name Role Phone Roshan Jimenez DO Primary Care Provider Unav ailable Encounter Details Date Type Department Care Team (Latest Contact Info) Description 05/20/1998 Outpatient [facility] [address] [place] [address] Roshan Jimenez DO NO ADDRESS ON FILE Unspecified essential hypertension (Primary Dx); Obstructive chronic bronchitis without exacerbation (CMS/HCC); Depressive type psychosis; Abdominal pain, unspecified site Social History Tobacco Use Types Packs/Day Years Used Date Smoking Tobacco: Never Assessed Sex and Gender Information Value Date Recorded Sex Assigned at Not on file 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 Male 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
--- OUTSIDE RECORDS SUMMARY | 2025-05-18 07:49 | XMS_ITS | Encounter Summary ---
Author Organization [facility] Address [address] [place] [address] Care Team Providers Care Carrot Grader Inspector Name Role Phone Roshan Jimenez DO Primary Care Provider Unav ailable Encounter Details Date Type Department Care Team (Latest Contact Info) Description 12/23/1998 Outpatient Historical [facility] Podiatry-Stevo Bal [place] [address] [address] Noé Rosa, DPM [address] [address] Ingrowing nail (Primary Dx); Dermatophytosis of nail Social History Tobacco Use Types Packs/Day Years Used Date Smoking Tobacco: Never Assessed Sex and Gender Information Value Date Recorded Sex Assigned at Not on file 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
--- OUTSIDE RECORDS SUMMARY | 2025-05-18 07:49 | XMS_ITS | Encounter Summary ---
Author Organization [facility] Address [address] [place] [address] Care Team Providers Care Golf Club Maker Name Role Phone Roshan Jimenez DO Primary Care Provider Unav ailable Encounter Details Date Type Department Care Team (Latest Contact Info) Description 03/26/2003 Outpatient Historical [facility] [place] [address] [facility] [address] [place] [address] Demetri Chávez MD [address] [facility] [address] [place] [address] SCREENING MAL NEOP-COLON (Primary Dx) Social History Tobacco Use Types Packs/Day Years Used Date Smoking Tobacco: Never Assessed Sex and Gender Information Value Date Recorded Sex Assigned at Not on file 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
--- OUTSIDE RECORDS SUMMARY | 2025-05-18 07:49 | XMS_ITS | Encounter Summary ---
Author Organization [facility] Address [address] [place] [address] Care Team Providers Care Oyster Farmer Name Role Phone Roshan Jimenez DO Primary Care Provider Unav ailable Encounter Details Date Type Department Care Team (Latest Contact Info) Description 12/23/1998 Outpatient Historical [facility] [address] [place] [address] Roshan Jimenez DO NO ADDRESS ON FILE Chronic airway obstruction, not elsewhere classified (CMS/HCC) (Primary Dx); Unspecified essential hypertension; Osteoarthrosis, unspecified whether generalized or localized, unspecified site Social History Tobacco Use Types Packs/Day Years Used Date Smoking Tobacco: Never Assessed Sex and Gender Information Value Date Recorded Sex Assigned at Not on file 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 Gender Identity Not on file Sexual Orientation Not on file documented as of this encounter Plan of Treatment Not on file documented as of this encounter Visit Diagnoses Diagnosis Chronic airway obstruction, not elsewhere classified (CMS/HCC)- Primary Chronic airway obstruction, not elsewhere classified Unspecified essential hypertension Osteoarthrosis, unspecified whether generalized or localized, unspecified site documented in this encounter Care Teams Oyster Farmer Relationship Specialty Start Date End Date Roshan Jimenez DO NO ADDRESS ON FILE PCP - General 03/26/03 documented as of this encounter
--- OUTSIDE RECORDS SUMMARY | 2025-05-18 07:49 | XMS_ITS | Encounter Summary ---
Author Organization [facility] Address [address] [place] [address] Care Team Providers Care Medical Social Consultant Name Role Phone Roshan Jimenez DO Primary Care Provider Unav ailable Encounter Details Date Type Department Care Team (Latest Contact Info) Description 12/11/2002 Outpatient [facility] Podiatry-Stevo Bal [place] [address] [place] [address] Noé Rosa, DPM [address] [place] [address] Onychia of toe (Primary Dx) Social History Tobacco Use Types Packs/Day Years Used Date Smoking Tobacco: Never Assessed Sex and Gender Information Value Date Recorded Sex Assigned at Not on file 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
--- OUTSIDE RECORDS SUMMARY | 2025-05-18 07:49 | XMS_ITS | Encounter Summary ---
Author Organization [facility] Address [address] [place] [address] Care Team Providers Care Property Maintenance Supervisor Name Role Phone Roshan Jimenez DO Primary Care Provider Unav ailable Encounter Details Date Type Department Care Team (Latest Contact Info) Description 02/10/[address] [facility] [address] [place] [address] Roshan Jimenez DO NO ADDRESS ON FILE CHRONIC AIRWAY OBSTRUCTION NEC (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)- Primary Chronic airway obstruction, not elsewhere classified Unspecified essential hypertension Obesity, unspecified Osteoarthrosis, unspecified whether generalized or localized, unspecified site documented in this encounter Care Teams Property Maintenance Supervisor Relationship Specialty Start Date End Date Roshan Jimenez DO NO ADDRESS ON FILE PCP - General 03/26/03 documented as of this encounter
--- OUTSIDE RECORDS SUMMARY | 2025-05-18 07:49 | XMS_ITS | Encounter Summary ---
Author Organization [facility] Address [address] [place] [address] Care Team Providers Care Credit Union Teller Name Role Phone Roshan Jimenez DO Primary Care Provider Unav ailable Encounter Details Date Type Department Care Team (Latest Contact Info) Description 04/03/2007 Outpatient [facility] [address] [place] [address] Roshan Jimenez DO NO ADDRESS ON FILE Unspecified Essential Hypertension (Primary Dx); Other Apnea of ; Obesity, Unspecified Social History Tobacco Use Types Packs/Day Years Used Date Smoking Tobacco: Never Assessed Sex and Gender Information Value Date Recorded Sex Assigned at Not on file 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
--- OUTSIDE RECORDS SUMMARY | 2025-05-18 07:49 | XMS_ITS | Encounter Summary ---
Author Organization [facility] Address [address] [place] [address] Care Team Providers Care Technical Publications Manager Name Role Phone Roshan Jimenez DO Primary Care Provider Unav ailable Encounter Details Date Type Department Care Team (Latest Contact Info) Description 01/06/1999 Outpatient Historical [facility] Podiatry-Stevo Bal [place] [address] [place] [address] Noé Rosa, DPM [address] [place] [address] Ingrowing nail (Primary Dx) Social History Tobacco Use Types Packs/Day Years Used Date Smoking Tobacco: Never Assessed Sex and Gender Information Value Date Recorded Sex Assigned at Not on file 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
--- OUTSIDE RECORDS SUMMARY | 2025-05-18 07:49 | XMS_ITS | Encounter Summary ---
Author Organization [facility] Address [address] [place] [address] Care Team Providers Care Milk Wagon Driver Name Role Phone Roshan Jimenez DO Primary Care Provider Unav ailable Encounter Details Date Type Department Care Team (Latest Contact Info) Description 11/27/2002 Outpatient Historical [facility] Podiatry-Stevo Bal [place] [address] [place] [address] Noé Rosa, DPM [address] [place] [address] Onychia of toe (Primary Dx); INGROWING NAIL Social History Tobacco Use Types Packs/Day Years Used Date Smoking Tobacco: Never Assessed Sex and Gender Information Value Date Recorded Sex Assigned at Not on file 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
--- OUTSIDE RECORDS SUMMARY | 2025-05-18 07:49 | XMS_ITS | Encounter Summary ---
Author Organization [facility] Address [address] [place] [address] Care Team Providers Care Rn Orthopedic Name Role Phone Roshan Jimenez DO Primary Care Provider Unav ailable Encounter Details Date Type Department Care Team (Latest Contact Info) Description 02/17/2006 Outpatient [facility] [address] [place] [address] Rosahn Jimenez DO NO ADDRESS ON FILE Viral Infection (Primary Dx); Unspecified Essential Hypertension; Unspecified Chronic Bronchitis (CMS/HCC); Impacted Cerumen Social History Tobacco Use Types Packs/Day Years Used Date Smoking Tobacco: Never Assessed Sex and Gender Information Value Date Recorded Sex Assigned at Not on file 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
--- OUTSIDE RECORDS SUMMARY | 2025-05-18 07:49 | XMS_ITS | Encounter Summary ---
Author Organization [facility] Address [address] [place] [address] Care Team Providers Care Pulmonary Physician Name Role Phone Roshan Jimenez DO Primary Care Provider Unav ailable Encounter Details Date Type Department Care Team (Latest Contact Info) Description 12/23/1999 Outpatient [facility] [address] [place] [address] Roshan Jimenez DO NO ADDRESS ON FILE Unspecified essential hypertension (Primary Dx); Allergic rhinitis, cause unspecified; Chronic airway obstruction, not elsewhere classified (CMS/HCC); Obesity, unspecified Social History Tobacco Use Types Packs/Day Years Used Date Smoking Tobacco: Never Assessed Sex and Gender Information Value Date Recorded Sex Assigned at Not on file 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
--- OUTSIDE RECORDS SUMMARY | 2025-05-18 07:49 | XMS_ITS | Encounter Summary ---
Author Organization [facility] Address [address] [place] [address] Care Team Providers Care Technical Sales Associate Name Role Phone Roshan Jimenez DO Primary Care Provider Unav ailable Encounter Details Date Type Department Care Team (Latest Contact Info) Description 10/20/2006 Outpatient Historical [facility] [address] [place] [address] Merlin Reilly MD NO ADDRESS ON FILE Obstructive Sleep Apnea (Primary Dx) Social History Tobacco Use Types Packs/Day Years Used Date Smoking Tobacco: Never Assessed Sex and Gender Information Value Date Recorded Sex Assigned at Not on file 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
--- OUTSIDE RECORDS SUMMARY | 2025-05-18 07:49 | XMS_ITS | Encounter Summary ---
Author Organization [facility] Address [address] [place] [address] Care Team Providers Care Sheet Fed Printer Name Role Phone Roshan Jimenez DO Primary Care Provider Unav ailable Encounter Details Date Type Department Care Team (Latest Contact Info) Description 06/19/1998 Outpatient [facility] [address] [place] [address] Roshan Jimenez DO NO ADDRESS ON FILE Obstructive chronic bronchitis without exacerbation (CMS/HCC) (Primary Dx); Tobacco use disorder; Obesity, unspecified; Unspecified essential hypertension Social History Tobacco Use Types Packs/Day Years Used Date Smoking Tobacco: Never Assessed Sex and Gender Information Value Date Recorded Sex Assigned at Not on file 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
--- OUTSIDE RECORDS SUMMARY | 2025-05-18 07:49 | XMS_ITS | Encounter Summary ---
Author Organization [email or web address] Address [address] [place] [address] Care Team Providers Care Armature Connector Name Role Phone Roshan Jimenez DO Primary Care Provider Unav ailable Encounter Details Date Type Department Care Team (Latest Contact Info) Description 12/22/1999 Outpatient Historical [facility] Axel Armstrong NO ADDRESS ON FILE Localized osteoarthrosis not specified whether primary or secondary, lower leg (Primary Dx); Pain in joint, lower leg Social History Tobacco Use Types Packs/Day Years Used Date Smoking Tobacco: Never Assessed Sex and Gender Information Value Date Recorded Sex Assigned at Not on file 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
--- OUTSIDE RECORDS SUMMARY | 2025-05-18 07:49 | XMS_ITS | Encounter Summary ---
Author Organization [facility] [employer] [facility] [facility] Address [address] [place] [address] Care Team Providers Care Hybrid Powertrain Development Engineer Name Role Phone Roshan Jimenez DO Primary Care Provider Unav ailable Encounter Details Date Type Department Care Team (Latest Contact Info) Description 12/31/1997 Outpatient Historical [facility] Axel Armstrong NO ADDRESS ON FILE Localized osteoarthrosis not specified whether primary or secondary, lower leg (Primary Dx) Social History Tobacco Use Types Packs/Day Years Used Date Smoking Tobacco: Never Assessed Sex and Gender Information Value Date Recorded Sex Assigned at Not on file 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
--- OUTSIDE RECORDS SUMMARY | 2025-05-18 07:49 | XMS_ITS | Encounter Summary ---
Author Organization [facility] Address [address] [place] [address] Care Team Providers Care Die Sinking Machine Operator Name Role Phone Roshan Jimenez DO Primary Care Provider Unav ailable Encounter Details Date Type Department Care Team (Latest Contact Info) Description 10/24/2006 Outpatient Historical [facility] 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
--- OUTSIDE RECORDS SUMMARY | 2025-05-18 07:49 | XMS_ITS | Encounter Summary ---
Author Organization [facility] Address [address] [place] [address] Care Team Providers Care Tonnage Compilation Clerk Name Role Phone Roshan Jimenez DO Primary Care Provider Unav ailable Encounter Details Date Type Department Care Team (Latest Contact Info) Description 11/16/2006 Outpatient Historical [facility] Ear, Nose and Throat [address] [place] [address] Thomas Harry MD [address] 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
--- OUTSIDE RECORDS SUMMARY | 2025-05-18 07:49 | XMS_ITS | Encounter Summary ---
Author Organization [facility] Address [address] [place] [address] Care Team Providers Care Sap Pp Consultant Name Role Phone Roshan Jimenez DO Primary Care Provider Unav ailable Encounter Details Date Type Department Care Team (Latest Contact Info) Description 09/17/1998 Outpatient [facility] [address] [place] [address] Roshan Jimenez DO NO ADDRESS ON FILE Unspecified essential hypertension (Primary Dx); Obesity, unspecified; Obstructive chronic bronchitis without exacerbation (CMS/HCC); Reflux esophagitis Social History Tobacco Use Types Packs/Day Years Used Date Smoking Tobacco: Never Assessed Sex and Gender Information Value Date Recorded Sex Assigned at Not on file Legal Sex Male 4:59 AM 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
--- OUTSIDE RECORDS SUMMARY | 2025-05-18 07:49 | XMS_ITS | Encounter Summary ---
Author Organization [facility] Address [address] [place] [address] Care Team Providers Care Precision Inspector Name Role Phone Roshan Jimenez DO Primary Care Provider Unav ailable Encounter Details Date Type Department Care Team (Latest Contact Info) Description 04/13/1998 Outpatient [facility] [address] [place] [address] Roshan Jimenez DO NO ADDRESS ON FILE Obstructive chronic bronchitis with exacerbation (CMS/HCC) (Primary Dx); Malaise and fatigue; Tobacco use disorder; Unspecified essential hypertension; Acute bronchitis Social History Tobacco Use Types Packs/Day Years Used Date Smoking Tobacco: Never Assessed Sex and Gender Information Value Date Recorded Sex Assigned at Not on file 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 Male 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
--- OUTSIDE RECORDS SUMMARY | 2025-05-18 07:49 | XMS_ITS | Encounter Summary ---
Author Organization [facility] Address [address] [place] [address] Care Team Providers Care Metal Riveting Machine Operator Name Role Phone Roshan Jimenez DO Primary Care Provider Unav ailable Encounter Details Date Type Department Care Team (Latest Contact Info) Description 01/01/2007 Outpatient Historical [facility] Ear, Nose and Throat 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
--- OUTSIDE RECORDS SUMMARY | 2025-05-18 07:49 | XMS_ITS | Encounter Summary ---
Author Organization [facility] Address [address] [place] [address] Care Team Providers Care Government Affairs Specialist Name Role Phone Roshan Jimenez DO Primary Care Provider Unav ailable Encounter Details Date Type Department Care Team (Latest Contact Info) Description 11/11/2003 Outpatient [facility] Podiatry-[facility] [place] [address] [place] [address] Noé Rosa, DPM [address] [place] [address] Onychia of toe (Primary Dx); INGROWING NAIL Social History Tobacco Use Types Packs/Day Years Used Date Smoking Tobacco: Never Assessed Sex and Gender Information Value Date Recorded Sex Assigned at Not on file 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
--- OUTSIDE RECORDS SUMMARY | 2025-05-18 07:49 | XMS_ITS | Encounter Summary ---
Author Organization [facility] Address [address] [place] [address] Care Team Providers Care Tire Recapping Machine Operator Name Role Phone Roshan Jimenez DO Primary Care Provider Unav ailable Encounter Details Date Type Department Care Team (Latest Contact Info) Description 11/25/2003 Outpatient Historical [facility] Podiatry-Stevo [place] [address] [place] [address] Noé Rosa, DPM [address] [place] [address] Onychia of toe (Primary Dx); INGROWING NAIL Social History Tobacco Use Types Packs/Day Years Used Date Smoking Tobacco: Never Assessed Sex and Gender Information Value Date Recorded Sex Assigned at Not on file Legal Sex Male 4:59 AM DECAL MAKER Gender Identity Not on file Sexual Orientation Not on file documented as of this encounter Plan of Treatment Not on file documented as of this encounter Visit Diagnoses Diagnosis Onychia of toe- Primary Onychia and paronychia of toe Ingrowing nail documented in this encounter Care Teams Tire Recapping Machine Operator Relationship Specialty Start Date End Date Roshan Jimenez DO NO ADDRESS ON FILE PCP - General 03/26/03 documented as of this encounter
--- OUTSIDE RECORDS SUMMARY | 2025-05-18 07:49 | XMS_ITS | Encounter Summary ---
Author Organization [facility] Address [address] [place] [address] Care Team Providers Care Motor Power Connector Name Role Phone Roshan Jimenez DO Primary Care Provider Unav ailable Encounter Details Date Type Department Care Team (Late st Contact Info) Description 11/09/2006 Outpatient Historical [facility] [place], John Messer MD NO ADDRESS ON FILE Obstructive Sleep Apnea (Adult) (Pediatric) (Primary Dx) Social History Tobacco Use Types Packs/Day Years Used Date Smoking Tobacco: Never Assessed Sex and Gender Information Value Date Recorded Sex Assigned at Not on file 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
--- OUTSIDE RECORDS SUMMARY | 2025-05-18 07:49 | XMS_ITS | Encounter Summary ---
Author Organization [facility] Address [address] [place] [address] Care Team Providers Care Cyber Systems Engineer Name Role Phone Roshan Jimenez DO Primary Care Provider Unav ailable Encounter Details Date Type Department Care Team (Latest Contact Info) Description 08/09/2004 Outpatient [facility] [address] [place] [address] Roshan Jimenez DO NO ADDRESS ON FILE CHRONIC AIRWAY OBSTRUCTION NEC ([facility]) (Primary Dx); REFLUX ESOPHAGITIS; HYPERTENSION NOS Social History Tobacco Use Types Packs/Day Years Used Date Smoking Tobacco: Never Assessed Sex and Gender Information Value Date Recorded Sex Assigned at Not on file Legal Sex Male 4:59 AM GLEASON GEAR GENERATOR Gender Identity Not on file Sexual Orientation Not on file documented as of this encounter Plan of Treatment Not on file documented as of this encounter Visit Diagnoses Diagnosis Chronic airway obstruction, not elsewhere classified (CMS/HCC)- Primary Chronic airway obstruction, not elsewhere classified Reflux esophagitis Unspecified essential hypertension documented in this encounter Care Teams Cyber Systems Engineer Relationship Specialty Start Date End Date Roshan Jimenez DO NO ADDRESS ON FILE PCP - General 03/26/03 documented as of this encounter
--- OUTSIDE RECORDS SUMMARY | 2025-05-18 07:49 | XMS_ITS | Encounter Summary ---
Author Organization [employer] [facility] Address [address] [place] [address] Care Team Providers Care Aerospace Project Engineer Name Role Phone Roshan Jimenez DO Primary Care Provider Unav ailable Encounter Details Date Type Department Care Team (Latest Contact Info) Description 12/23/1998 Outpatient Historical [facility] Axel Armstrong NO ADDRESS ON FILE Localized osteoarthrosis not specified whether primary or secondary, lower leg (Primary Dx) Social History Tobacco Use Types Packs/Day Years Used Date Smoking Tobacco: Never Assessed Sex and Gender Information Value Date Recorded Sex Assigned at Not on file 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
--- OUTSIDE RECORDS SUMMARY | 2025-05-18 07:49 | XMS_ITS | Encounter Summary ---
Author Organization [facility] Address [address] [place] [address] Care Team Providers Care Custom Clothier Name Role Phone Roshan Jimenez DO Primary Care Provider Unav ailable Encounter Details Date Type Department Care Team (Latest Contact Info) Description 01/08/1999 Outpatient Historical [facility] Podiatry-[facility] [place] [address] [place] [address] Noé Rosa, DPM [address] [place] [address] Ingrowing nail (Primary Dx) Social History Tobacco Use Types Packs/Day Years Used Date Smoking Tobacco: Never Assessed Sex and Gender Information Value Date Recorded Sex Assigned at Not on file Legal Sex Male 4:59 AM SLOT SHIFT SUPERVISOR Gender Identity Not on file Sexual Orientation Not on file documented as of this encounter Plan of Treatment Not on file documented as of this encounter Visit Diagnoses Diagnosis Ingrowing nail- Primary documented in this encounter Care Teams Custom Clothier Relationship Specialty Start Date End Date Roshan Jimenez DO NO ADDRESS ON FILE PCP - General 03/26/03 documented as of this encounter
--- OUTSIDE RECORDS SUMMARY | 2025-05-18 07:50 | XMS_ITS | Encounter Summary ---
Author Organization [facility] Address [address] [facility] Attn: [place] [address] Care Team Providers Care Structural Layout Worker Name Role Phone Roshan Jimenez DO [...] on file Legal Sex Male 4:59 AM CORRECTIONS OFFICER Gender Identity Not on file Sexual Orientation Not on file documented as of this encounter Plan of Treatment Not on file documented as of this encounter Visit Diagnoses Not on filedocumented in this encounter Care Teams Structural Layout Worker Relationship Specialty Start Date End Date Roshan Jimenez DO NO ADDRESS ON FILE PCP - General 03/26/03 documented as of this encounter
--- OUTSIDE RECORDS SUMMARY | 2025-05-18 07:50 | XMS_ITS | Encounter Summary ---
Author Organization [facility] Address [address] [place] [address] Care Team Providers Care Pantograph Transferrer Name Role Phone Roshan Jimenez DO Primary Care Provider Unav ailable Encounter Details Date Type Department Care Team (Latest Contact Info) Description 03/09/2005 Outpatient Historical [facility] [address] [place] [place] [address] Zofia Gleason, NATIONAL SALES REPRESENTATIVE [address] [place] [address] HYPERSOMNI W SLEEP APNEA (Primary Dx) Social History Tobacco Use Types Packs/Day Years Used Date Smoking Tobacco: Never Assessed Sex and Gender Information Value Date Recorded Sex Assigned at Not on file Legal Sex Male 4:59 AM MRI SUPERVISOR Gender Identity Not on file Sexual Orientation Not on file documented as of this encounter Plan of Treatment Not on file documented as of this encounter Visit Diagnoses Diagnosis Hypersomnia with sleep apnea, unspecified- Primary documented in this encounter Care Teams Pantograph Transferrer Relationship Specialty Start Date End Date Roshan Jimenez DO NO ADDRESS ON FILE PCP - General 03/26/03 documented as of this encounter
--- OUTSIDE RECORDS SUMMARY | 2025-05-18 07:50 | XMS_ITS | Encounter Summary ---
Author Organization [facility] Address [address] [facility] Attn: [place] [address] Care Team Providers Care Peach Grower Name Role Phone Roshan Jimenez DO Primary [...] file Legal Sex Male 4:59 AM ASSISTANT BROKER Gender Identity Not on file Sexual Orientation Not on file documented as of this encounter Plan of Treatment Not on file documented as of this encounter Visit Diagnoses Not on filedocumented in this encounter Care Teams Peach Grower Relationship Specialty Start Date End Date Roshan Jimenez DO NO ADDRESS ON FILE PCP - General 03/26/03 documented as of this encounter
--- OUTSIDE RECORDS SUMMARY | 2025-05-18 07:50 | XMS_ITS | Encounter Summary ---
Author Organization [facility] Address [address] [place] [address] Care Team Providers Care Clinical Safety Specialist Name Role Phone Roshan Jimenez DO Primary Care Provider Unav ailable Encounter Details Date Type Department Care Team (Latest Contact Info) Description 07/15/2002 Outpatient [facility] [address] [place] [address] Roshan Jimenez DO NO ADDRESS ON FILE OBSTR CHR BRONCHITIS W AC EXACERB (CMS/HCC) (Primary Dx); HYPERTENSION NOS Social History Tobacco Use Types Packs/Day Years Used Date Smoking Tobacco: Never Assessed Sex and Gender Information Value Date Recorded Sex Assigned at Not on file Legal Sex Male 4:59 AM DIRECTOR OF LABORATORY OPERATIONS Gender Identity Not on file Sexual Orientation Not on file documented as of this encounter Plan of Treatment Not on file documented as of this encounter Visit Diagnoses Diagnosis Obstructive chronic bronchitis with exacerbation (CMS/HCC)- Primary Obstructive chronic bronchitis with exacerbation Unspecified essential hypertension documented in this encounter Care Teams Clinical Safety Specialist Relationship Specialty Start Date End Date Roshan Jimenez DO NO ADDRESS ON FILE PCP - General 03/26/03 documented as of this encounter
--- OUTSIDE RECORDS SUMMARY | 2025-05-18 07:50 | XMS_ITS | Encounter Summary ---
Author Organization [facility] Address [address] [place] [address] Care Team Providers Care Hotel Service Supervisor Name Role Phone Roshan Jimenez DO Primary Care Provider Unav ailable Encounter Details Date Type Department Care Team (Latest Contact Info) Description 04/29/2005 Outpatient Historical [facility] [address] [place] [address] Merlin Reilly MD NO ADDRESS ON FILE HYPERSOMNIA W SLEEP APNEA NOS (Primary Dx) Social History Tobacco Use Types Packs/Day Years Used Date Smoking Tobacco: Never Assessed Sex and Gender Information Value Date Recorded Sex Assigned at Not on file Legal Sex Male 4:59 AM INSPECTOR BALL POINTS Gender Identity Not on file Sexual Orientation Not on file documented as of this encounter Plan of Treatment Not on file documented as of this encounter Visit Diagnoses Diagnosis Hypersomnia with sleep apnea, unspecified- Primary documented in this encounter Care Teams Hotel Service Supervisor Relationship Specialty Start Date End Date Roshan Jimenez DO NO ADDRESS ON FILE PCP - General 03/26/03 documented as of this encounter
--- OUTSIDE RECORDS SUMMARY | 2025-05-18 07:50 | XMS_ITS | Clinical Summary ---
Author Organization [facility] Address [address] [place] [address] Phone Care Team Providers Care Refuse Collector Name Role Phone Roshan Jimenez DO Primary [...] :Asthma with chronic obstructive pulmonary disease (COPD) ([facility]) TAKE 2 PUFFS BY INHALATION EVERY 4 [...] Asthma with chronic obstructive pulmonary disease (COPD) ([facility]) Take 1 Puff by inhalation daily. 3 [...] file Legal Sex Male 4:59 AM MANAGER GROCERY Gender Identity Not on file Sexual Orientation [...] ENDOSCOPY, COLON, SCREENING Routine 07/11/2013 12:39 PM MANAGER GROCERY Special screening for malignant neoplasms, colon from Last 3 Months or Most Recently Relevant to Health Maintenance Results * ENDOSCOPY, COLON, SCREENING (07/11/2013 12:39 PM MANAGER GROCERY) Narrative Transcriptions Demetri Chávez MD - 07/10/2013 5:25 PM CST [place], [place] Patient: EDSON JAFFE CSN: [id number] : 1950 Provider: Demetri Chávez MD ENDOSCOPY [...] otherwise unremarkablecolonoscopy. Demetri Chávez MD MMODL D: [id number] V: [id number] cc: Roshan Jimenez DO Roshan Jimenez DO GI PROCEDURE ORDERABLES Fin al Result from Last 3 Months or Most Recently Relevant to Health Maintenance Insurance [place] [address] [place] [place] [address] DUAL COMPLETE MCR HMO SNP Advance Directives For more information, please contact: [phone] * Full Code (Latest Code Status on [...] 12:22 PM 01/13/2010 11:02 PM Care Teams Refuse Collector Relationship Specialty Start Date End Date Roshan Jimenez DO NO ADDRESS ON FILE PCP - General 03/26/03
--- OUTSIDE RECORDS SUMMARY | 2025-05-18 07:50 | XMS_ITS | Encounter Summary ---
Author Organization [facility] Address [address] [place] [address] Care Team Providers Care Legal Executive Name Role Phone Roshan Jimenez DO Primary Care Provider Unav ailable Encounter Details Date Type Department Care Team (Latest Contact Info) Description 05/30/2002 Outpatient [facility] [address] [place] [address] Roshan Jimenez DO NO ADDRESS ON FILE CHRONIC AIRWAY OBSTRUCTION NEC ([facility]) (Primary Dx); OBESITY NOS; LUMBAGO; VACCINE FOR INFLUENZA Social History Tobacco Use Types Packs/Day Years Used Date Smoking Tobacco: Never Assessed Sex and Gender Information Value Date Recorded Sex Assigned at Not on file Legal Sex Male 4:59 AM OPHTHALMIC ASSISTANT Gender Identity Not on file Sexual Orientation Not on file documented as of this encounter Plan of Treatment Not on file documented as of this encounter Visit Diagnoses Diagnosis Chronic airway obstruction, not elsewhere classified ([facility])- Primary Chronic airway obstruction, not elsewhere classified Obesity, unspecified Lumbago Need vaccination-viral disease Need for prophylactic vaccination and inoculation against other viral diseases documented in this encounter Care Teams Legal Executive Relationship Specialty Start Date End Date Roshan Jimenez DO NO ADDRESS ON FILE PCP - General 03/26/03 documented as of this encounter
--- OUTSIDE RECORDS SUMMARY | 2025-05-18 07:50 | XMS_ITS | Encounter Summary ---
Author Organization [facility] Address [address] [place] [address] Care Team Providers Care Magnetic Prospecting Operator Name Role Phone Roshan Jimenez DO Primary Care Provider Unav ailable Encounter Details Date Type Department Care Team (Latest Contact Info) Description 02/15/2005 Outpatient Historical [facility] [address] [place] [address] Roshan Jimenez DO NO ADDRESS ON FILE CORONARY ATHEROSCLER UNSPEC VESSEL (Primary Dx) Social History Tobacco Use Types Packs/Day Years Used Date Smoking Tobacco: Never Assessed Sex and Gender Information Value Date Recorded Sex Assigned at Not on file Legal Sex Male 4:59 AM ATOMIC PHYSICS PROFESSOR Gender Identity Not on file Sexual [...] Coronary atherosclerosis of unspecified type of vessel, [place] or graft- Primary documented in this encounter Care Teams Magnetic Prospecting Operator Relationship Specialty Start Date End Date Roshan Jimenez DO NO ADDRESS ON FILE PCP - General 03/26/03 documented as of this encounter
--- OUTSIDE RECORDS SUMMARY | 2025-05-18 07:50 | XMS_ITS | Encounter Summary ---
Author Organization [facility] Address [address] [place] [address] Care Team Providers Care Behavioral Health Counselor Name Role Phone Roshan Jimenez DO Primary Care Provider Unav ailable Encounter Details Date Type Department Care Team (Late st Contact Info) Description 01/10/[address] [facility] [address] [place] [phone] Social History Tobacco Use Types Packs/Day Years Used Date Smoking Tobacco: Never Assessed Sex and Gender Information Value Date Recorded Sex Assigned at Not on file Legal Sex Male 4:59 AM DIRECTOR OF MANUFACTURING OPERATIONS Gender Identity Not on file Sexual Orientation Not on file documented as of this encounter Plan of Treatment Not on file documented as of this encounter Visit Diagnoses Not on filedocumented in this encounter Care Teams Behavioral Health Counselor Relationship Specialty Start Date End Date Roshan Jimenez DO NO ADDRESS ON FILE PCP - General 03/26/03 documented as of this encounter
--- OUTSIDE RECORDS SUMMARY | 2025-05-18 07:50 | XMS_ITS | Encounter Summary ---
Author Organization [facility] Address [address] [place] [address] Care Team Providers Care Embedded Systems Software Developer Name Role Phone Roshan Jimenez DO Primary Care Provider Unav ailable Encounter Details Date Type Department Care Team (Latest Contact Info) Description 07/31/2001 Outpatient [facility] [address] [place] [phone] Roshan Jimenez DO NO ADDRESS ON FILE HYPERTENSION NOS (Primary Dx); VACCINE FOR INFLUENZA Social History Tobacco Use Types Packs/Day Years Used Date Smoking Tobacco: Never Assessed Sex and Gender Information Value Date Recorded Sex Assigned at Not on file Legal Sex Male 4:59 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
--- OUTSIDE RECORDS SUMMARY | 2025-05-18 07:50 | XMS_ITS | Encounter Summary ---
Author Organization [facility] Address [address] [place] [address] Care Team Providers Care Outboard System Operator Name Role Phone Roshan Jimenez DO Primary Care Provider Unav ailable Encounter Details Date Type Department Care Team (Latest Contact Info) Description 01/30/2002 Outpatient [facility] [address] [place] [phone] Roshan Jimenez DO NO ADDRESS ON FILE CHRONIC AIRWAY OBSTRUCTION NEC ([facility]) (Primary Dx); HYPERTENSION NOS; OTHER UNSPEC SLEEP APNEA; OSTEOARTHROS NOS-UNSPEC Social History Tobacco Use Types Packs/Day Years Used Date Smoking Tobacco: Never Assessed Sex and Gender Information Value Date Recorded Sex Assigned at Not on file Legal Sex Male 4:59 AM LICENSE DISTRIBUTOR Gender Identity Not on file Sexual Orientation Not on file documented as of this encounter Plan of Treatment Not on file documented as of this encounter Visit Diagnoses Diagnosis Chronic airway obstruction, not elsewhere classified ([facility]/HCC)- Primary Chronic airway obstruction, not elsewhere classified Unspecified essential hypertension Unspecified sleep apnea Osteoarthrosis, unspecified whether generalized or localized, unspecified site documented in this encounter Care Teams Outboard System Operator Relationship Specialty Start Date End Date Roshan Jimenez DO NO ADDRESS ON FILE PCP - General 03/26/03 documented as of this encounter
--- OUTSIDE RECORDS SUMMARY | 2025-05-18 07:50 | XMS_ITS | Encounter Summary ---
Author Organization [facility] Address [address] [place] [address] Care Team Providers Care Automatic Profile Sander Operator Name Role Phone Roshan Jimenez DO Primary Care Provider Unav ailable Encounter Details Date Type Department Care Team (Latest Contact Info) Description 05/17/2000 Outpatient Historical [facility] [address] [place] [address] [place] [phone] Merlin Reilly MD NO ADDRESS ON FILE Hypersomnia with sleep apnea, unspecified (Primary Dx) Social History Tobacco Use Types Packs/Day Years Used Date Smoking Tobacco: Never Assessed Sex and Gender Information Value Date Recorded Sex Assigned at Not on file 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
--- OUTSIDE RECORDS SUMMARY | 2025-05-18 07:50 | XMS_ITS | Encounter Summary ---
Author Organization [facility] Address [address] [place] [address] Care Team Providers Care Pbx Repairer Name Role Phone Roshan Jimenez DO [...] on file Legal Sex Male 4:59 AM TOWEL WEAVER Gender Identity Not on file Sexual Orientation Not on file documented as of this encounter Plan of Treatment Not on file documented as of this encounter Visit Diagnoses Diagnosis Bronchitis, not specified as acute or chronic- Primary Other and unspecified hyperlipidemia Inhibited sex excitement Psychosexual dysfunction with inhibited sexual excitement Unspecified essential hypertension documented in this encounter Care Teams Pbx Repairer Relationship Specialty Start Date End Date Roshan Jimenez DO NO ADDRESS ON FILE PCP - General 03/26/03 documented as of this encounter
--- OUTSIDE RECORDS SUMMARY | 2025-05-18 07:50 | XMS_ITS | Encounter Summary ---
Author Organization [facility] Address [address] [facility] Attn: [place] [address] Care Team Providers Care Pyrotechnics Press Tender Name Role Phone Roshan Jimenez DO [...] on file Legal Sex Male 4:59 AM TRANSPORTATION TECHNICIAN Gender Identity Not on file Sexual Orientation Not on file documented as of this encounter Plan of Treatment Not on file documented as of this encounter Visit Diagnoses Not on filedocumented in this encounter Care Teams Pyrotechnics Press Tender Relationship Specialty Start Date End Date Roshan Jimenez DO NO ADDRESS ON FILE PCP - General 03/26/03 documented as of this encounter
--- OUTSIDE RECORDS SUMMARY | 2025-05-18 07:50 | XMS_ITS | Encounter Summary ---
Author Organization [facility] Address [address] [place] [address] Care Team Providers Care Rock Crusher Name Role Phone Roshan Jimenez DO Primary [...] on file Legal Sex Male 4:59 AM CLEANER AND PRESSER Gender Identity Not on file Sexual Orientation Not on file documented as of this encounter Plan of Treatment Not on file documented as of this encounter Visit Diagnoses Diagnosis Other chest pain- Primary documented in this encounter Care Teams Rock Crusher Relationship Specialty Start Date End Date Roshan Jimenez DO NO ADDRESS ON FILE PCP - General 03/26/03 documented as of this encounter
--- OUTSIDE RECORDS SUMMARY | 2025-05-18 07:50 | XMS_ITS | Encounter Summary ---
Author Organization [facility] Address [address] [facility] Attn: [place] [address] Care Team Providers Care Research Engineer Marine Equipment Name Role Phone Roshan Jimenez DO Primary Care Provider Unav ailable Encounter Details Date Type Department Care Team (Latest Contact Info) Description 12/06/2000 Emergency Jose Galarza DO [address] [place] [address] Social History Tobacco Use Types Packs/Day Years Used Date Smoking Tobacco: Never Assessed Sex and Gender Information Value Date Recorded Sex Assigned at Not on file Legal Sex Male 4:59 AM LATHE HAND Gender Identity Not on file Sexual Orientation Not on file documented as of this encounter Plan of Treatment Not on file documented as of this encounter Visit Diagnoses Not on filedocumented in this encounter Care Teams Research Engineer Marine Equipment Relationship Specialty Start Date End Date Roshan Jimenez DO NO ADDRESS ON FILE PCP - General 03/26/03 documented as of this encounter
--- OUTSIDE RECORDS SUMMARY | 2025-05-18 07:50 | XMS_ITS | Encounter Summary ---
Author Organization [facility] Address [address] [place] [address] Care Team Providers Care Real Estate Analyst Name Role Phone Roshan Jimenez DO Primary Care Provider Unav ailable Encounter Details Date Type Department Care Team (Late st Contact Info) Description 12/30/2009 Ancillary Orders [facility] Orthoped[facility]- 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
--- OUTSIDE RECORDS SUMMARY | 2025-05-18 07:50 | XMS_ITS | Encounter Summary ---
Author Organization [facility] Address [address] [place] [address] Care Team Providers Care Die Cleaner Name Role Phone Roshan Jimenez DO Primary Care Provider Unav ailable Encounter Details Date Type Department Care Team (Latest Contact Info) Description 12/08/2000 Outpatient [facility] [address] [place] [phone] Roshan Jimenez DO NO ADDRESS ON FILE Anxiety state, unspecified (Primary Dx); Depressive disorder, not elsewhere classified; Acute bronchitis; Chronic airway obstruction, not elsewhere classified (CMS/HCC) Social History Tobacco Use Types Packs/Day Years Used Date Smoking Tobacco: Never Assessed Sex and Gender Information Value Date Recorded Sex Assigned at Not on file 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
--- OUTSIDE RECORDS SUMMARY | 2025-05-18 07:50 | XMS_ITS | Encounter Summary ---
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
--- OUTSIDE RECORDS SUMMARY | 2025-05-18 07:50 | XMS_ITS | Encounter Summary ---
Author Organization [facility] Address [address] [place] [address] Care Team Providers Care Cost And Risk Analysis Manager Name Role Phone Roshan Jimenez DO Primary Care Provider Unav ailable Encounter Details Date Type Department Care Team (Latest Contact Info) Description 02/12/2001 Outpatient [facility] [address] [place] [address] Roshan Jimenez DO NO ADDRESS ON FILE Unspecified asthma(493.90) (Primary Dx); Chronic airway obstruction, not elsewhere classified (CMS/[facility]) Social History Tobacco Use Types Packs/Day Years Used Date Smoking Tobacco: Never Assessed Sex and Gender Information Value Date Recorded Sex Assigned at Not on file 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
--- OUTSIDE RECORDS SUMMARY | 2025-05-18 07:50 | XMS_ITS | Encounter Summary ---
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
--- OUTSIDE RECORDS SUMMARY | 2025-05-18 07:50 | XMS_ITS | Encounter Summary ---
Author Organization [facility] Address [address] [place] [address] Care Team Providers Care Linux Unix Administrator Name Role Phone Roshan Jimenez DO Primary Care Provider Unav ailable Encounter Details Date Type Department Care Team (Latest Contact Info) Description 03/22/2000 Outpatient Historical [facility] [address] [place] [address] Roshan Jimenez DO NO ADDRESS ON FILE Unspecified essential hypertension (Primary Dx); Chronic airway obstruction, not elsewhere classified (CMS/HCC); Transient tic disorder; Osteoarthrosis, unspecified whether generalized or localized, unspecified site Social History Tobacco Use Types Packs/Day Years Used Date Smoking Tobacco: Never Assessed Sex and Gender Information Value Date Recorded Sex Assigned at Not on file 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 Gender Identity Not on file Sexual Orientation Not on file documented as of this encounter Plan of Treatment Not on file documented as of this encounter Visit Diagnoses Diagnosis Unspecified essential hypertension- Primary Chronic airway obstruction, not elsewhere classified (CMS/HCC) Chronic airway obstruction, not elsewhere classified Transient tic disorder Osteoarthrosis, unspecified whether generalized or localized, unspecified site documented in this encounter Care Teams Linux Unix Administrator Relationship Specialty Start Date End Date Roshan Jimenez DO NO ADDRESS ON FILE PCP - General 03/26/03 documented as of this encounter
--- OUTSIDE RECORDS SUMMARY | 2025-05-18 07:50 | XMS_ITS | Encounter Summary ---
Author Organization 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
--- OUTSIDE RECORDS SUMMARY | 2025-05-18 07:50 | XMS_ITS | Encounter Summary ---
Author Organization [facility] Address [address] [place] [address] Care Team Providers Care Gas Engine Mechanic Name Role Phone Roshan Jimenez DO Primary Care Provider Unav ailable Encounter Details Date Type Department Care Team (Latest Contact Info) Description 12/25/2000 Outpatient [facility] [address] [place] [address] Roshan Jimenez DO NO ADDRESS ON FILE Obstructive chronic bronchitis with exacerbation (CMS/HCC) (Primary Dx); Unspecified chronic bronchitis (CMS/HCC); Unspecified sleep apnea; Obesity, unspecified Social History Tobacco Use Types Packs/Day Years Used Date Smoking Tobacco: Never Assessed Sex and Gender Information Value Date Recorded Sex Assigned at Not on file Legal Sex Male 4:59 AM AMBULATORY CARE Gender Identity Not on file Sexual Orientation Not on file documented as of this encounter Plan of Treatment Not on file documented as of this encounter Visit Diagnoses Diagnosis Obstructive chronic bronchitis with exacerbation (CMS/HCC)- Primary Obstructive chronic bronchitis with exacerbation Unspecified chronic bronchitis (CMS/HCC) Unspecified chronic bronchitis Unspecified sleep apnea Obesity, unspecified documented in this encounter Care Teams Gas Engine Mechanic Relationship Specialty Start Date End Date Roshan Jimenez DO NO ADDRESS ON FILE PCP - General 03/26/03 documented as of this encounter
--- OUTSIDE RECORDS SUMMARY | 2025-05-18 07:50 | XMS_ITS | Encounter Summary ---
Author Organization [facility] Address [address] [place] [address] Care Team Providers Care Assistant Professor Of Marine Biology Name Role Phone Roshan Jimenez DO Primary Care Provider Unav ailable Encounter Details Date Type Department Care Team (Latest Contact Info) Description 02/15/[address] 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 Gender Identity Not on file Sexual Orientation Not on file documented as of this encounter Plan of Treatment Not on file documented as of this encounter Visit Diagnoses Diagnosis Chronic airway obstruction, not elsewhere classified ([facility])- Primary Chronic airway obstruction, not elsewhere classified Obesity, unspecified Unspecified essential hypertension Unspecified sleep apnea documented in this encounter Care Teams Assistant Professor Of Marine Biology Relationship Specialty Start Date End Date Roshan Jimenez DO NO ADDRESS ON FILE PCP - General 03/26/03 documented as of this encounter
--- OUTSIDE RECORDS SUMMARY | 2025-05-18 07:50 | XMS_ITS | Encounter Summary ---
Author Organization [facility] Address [address] [place] [address] Care Team Providers Care Director Of Managed Care Name Role Phone Roshan Jimenez DO Primary Care Provider Unav ailable Encounter Details Date Type Department Care Team (Latest Contact Info) Description 04/18/2005 Outpatient [facility] [address] [place] [address] Roshan Jimenez DO NO ADDRESS ON FILE MORBID OBESITY ([facility]) (Primary Dx); SLEEP APNEA NOS; EDEMA; ASTHMA UNSPECIFIED Social History Tobacco Use Types Packs/Day Years Used Date Smoking Tobacco: Never Assessed Sex and Gender Information Value Date Recorded Sex Assigned at Not on file 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
--- OUTSIDE RECORDS SUMMARY | 2025-05-18 07:50 | XMS_ITS | Encounter Summary ---
Author Organization [facility] Address [address] [place] [address] Care Team Providers Care Accounts Payable Assistant Name Role Phone Roshan Jimenez DO Primary Care Provider Unav ailable Encounter Details Date Type Department Care Team (Latest Contact Info) Description 07/06/[address] 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
--- OUTSIDE RECORDS SUMMARY | 2025-05-18 07:50 | XMS_ITS | Encounter Summary ---
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
--- OUTSIDE RECORDS SUMMARY | 2025-05-18 07:50 | XMS_ITS | Encounter Summary ---
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
--- OUTSIDE RECORDS SUMMARY | 2025-05-18 07:50 | XMS_ITS | Encounter Summary ---
Author Organization [facility] Address [address] [place] [address] Care Team Providers Care Cooler Worker Name Role Phone Roshan Jimenez DO Primary Care Provider Unav ailable Encounter Details Date Type Department Care Team (Latest Contact Info) Description 11/13/2002 Outpatient [facility] Podiatry-Stevo Bal Valencia [address] [place] [address] Noé Rosa, DPM [address] [place] [address] Onychia of toe (Primary Dx); INGROWING NAIL Social History Tobacco Use Types Packs/Day Years Used Date Smoking Tobacco: Never Assessed Sex and Gender Information Value Date Recorded Sex Assigned at Not on file 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
--- OUTSIDE RECORDS SUMMARY | 2025-05-18 07:50 | XMS_ITS | Clinical Summary ---
Author Organization [facility] Stevo melo Aaron Address [address] [place] [address] Phone Care Team Providers Care Staff Design Engineer Name Role Phone Unavailable Primary Care Provider Unavailabl e Allergies Active Allergy Reactions Criticality Noted Date Comments Broccoli Nausea and Vomiting Low 02/14/2025 Per [facility] paperwork Medications fluticasone-umec lidinium-vilante rol (Trelegy Ellipta) [...] ns:Asthma with chronic obstructive pulmonary disease (COPD) ([facility]) TAKE 2 PUFFS BY INHALATION EVERY [...] Department Care Team Description 05/01/2025 Orders Only [facility] Gastroenterology - [place] [address] [facility] [address] [place] [address] Tiago Ryan MD Irritable bowel syndrome with diarrhea (Primary Dx); Chronic diarrhea 04/05/2025 2:15 PM CDT - 04/05/2025 11:59 PM CDT Hospital Encounter [facility] Emergency Medical [facility] [address] [place] [address] Ambulance, [facility] Discharge Disposition: RUST 04/01/2025 10:00 AM CDT Office Visit [facility] [address] [place] [address] Dane Sierra MD Farmer, Sarah, FNP History of ST elevation myocardial infarction (STEMI) (Primary Dx); Benign hypertension; Paroxysmal atrial fibrillation with rapid ventricular response (CMS/HCC); Mixed hyperlipidemia; Ischemic dilated cardiomyopathy (CMS/HCC); Other iron deficiency anemia 03/27/2025 12:25 AM CDT - 03/27/2025 11:59 PM CDT Hospital Encounter [facility] Emergency Medical Services [facility] [address] [place] [address] Ambulance, [facility] Jean-Pierre Pappas MD Discharge Disposition: Intermediate Care Facility 03/26/2025 9:54 AM CDT Anesthesia Event [facility] Endoscopy [address] [place] [address] Grzegorz Arteaga MD Bell, Leslie, CRNA 03/26/2025 9:20 AM CDT - 03/26/2025 9:40 AM CDT Surgery [facility] Endoscopy [address] [place] [address] Tiago Ryan MD ESOPHAGOGASTRODUODENOSCOPY 03/25/2025 External Device Data [facility] Provider, Abstract 03/25/2025 External Device Data [facility] Provider, Abstract 03/25/2025 External Device Data [facility] Provider, Abstract 03/22/2025 3:21 AM CDT - 03/27/2025 7:10 PM CDT Hospital Encounter [facility] 4A Cardiac [address] [place] [address] Bandar Parsons MD Sundaram, Vignesh, MD Meyer III, DO John Sorto Saroj, MD Haq, MD Elyse Hinkle, Jean-Pierre Prieto MD Acute on chronic combined systolic and diastolic heart failure ([facility]/HCC) Discharge Disposition: Medicaid Nursing Facility 03/21/2025 - 03/21/2025 11:59 PM CDT Hospital Encounter [address] [address] [facility]: [facility] 03/21/2025 Travel 03/18/2025 External Device Data [facility] ABSTRACTION Provider, Abstract 03/04/2025 12:30 AM CDT - 03/04/2025 11:59 PM CDT Hospital Encounter [address] [address] [facility] Dis[facility]: RUST 02/20/2025 Abstract [facility] [address] [place] [address] Provider, Abstract 02/20/2025 Orders Only [facility] [address] [place] [address] Provider, Abstract 02/19/2025 - 02/19/2025 11:59 PM CDT Hospital Encounter [facility] [address] [facility] [address] [place] [address] Lokesh Mckeon MD Ambulance, [facility] Discharge Disposition: Intermediate Care Facility 02/18/2025 External Device Data [place] ABSTRACTION Provider, Abstract 02/18/2025 External Device Data [facility]STRACTION Provider, Abstract 02/18/2025 External Device Data [facility] [place]STRACTION Provider, Abstract 02/17/2025 Travel 02/13/2025 10:12 PM CDT - 02/19/2025 7:37 PM CDT Hospital Encounter [facility] 4B Cardiac [address] [facility] [place] [phone] Jean-Pierre Pappas MD Elgayesh, MD Joy Wylie, MD Fer Aponte, MD Linda Ruiz, Lokesh Nash MD STEMI (ST elevation myocardial infarction) ([facility]) Discharge Disposition: Usp Fac(SNF) with Medicare Certification in Anticipation of Skilled Care from Last 3 Months Immunizations Immunization Administration [...] on file Legal Sex Male 12:11 AM [employer] Gender Identity Not on file Sexual Orientation [...] st Contact Info) Description 07/09/2025 10:20 AM [employer] Office Visit [facility] [address] [place] [address] Saritha Horton, EXERCISE INSTRUCTOR [address] [place] [address] 10/24/2025 10:45 AM [employer] Office Visit [facility] [address] [place] [address] Dane Sierra MD [address] [place] [address] Health Maintenance Due Date Last Done [...] history exists Medical Devices Implanted Type Area Assurance Senior Manager Insurance Device Identifier Shelf Expiration Date Model / Serial / Lot Stent Maiden Lanier Santiago 4.0x38mm Rx [id number] - [id number] Implanted:Qty: 1 on 02/14/2025 by Geronimo Lead Etl Developer () MD Wing at [facility] Stent N/A: Coronary [employer] [id number] 02/19/2027 [id number] / / [id number] Procedures Procedure Name Priority Date/Time Associated [...] ANTIGEN, URINE Routine 2024 2:47 PM CDT BURLAP BAG SEWER EVALUATE AND TREAT Routine 11:23 AM CDT [...] 10:18 PM CDT BRAIN NATRIURETIC PEPTIDE, B DOOR TO DOOR SELLING AGENT OR PROBNP Stat 03/21/2025 10:18 PM CDT [...] 6:46 AM CDT BRAIN NATRIURETIC PEPTIDE, B DOOR TO DOOR SELLING AGENT OR PROBNP Routine 02/17/2025 6:19 AM CDT LIPID PANEL Routine 02/17/2025 6:19 AM CDT COMPREHENSIVE METABOLIC PANEL Routine 6:19 AM CDT CBC WITHOUT DIFFERENTIAL Routine 025 6:19 AM CDT POC GLUCOSE Routine 02/16/2025 6:01 AM CDT POC GLUCOSE Routine 02/15/2025 8:27 PM CDT POC GLUCOSE Routine 02/15/2025 5:08 PM CDT BURLAP BAG SEWER EVALUATE AND TREAT Routine 11:23 AM CDT POC GLUCOSE Routine 02/15/2025 11:07 AM CDT POC GLUCOSE Routine 02/15/2025 7:45 AM CDT PHOSPHORUS Routine 02/15/2025 3:40 AM CDT MAGNESIUM LEVEL Routine 02/15/2025 3:40 AM CDT COMPREHENSIVE METABOLIC PANEL Routine 3:40 AM CDT CBC WITHOUT DIFFERENTIAL Routine 025 3:40 AM CDT POC GLUCOSE Routine 02/15/2025 3:23 AM CDT ENDOSCOPY, COLON, SCREENING Routine 06/28 12:39 PM [employer] from Last 3 Months or Most Recently [...] 136 - 145 mmol/L 03/27/2025 5:[address] [facility] POTASSIUM 4.2 3.5 - 5.1 mmol/L 03/27/2025 5:[address] [facility] Comment:Moderate hemolysis p resent. Can cause significant falsely elevated result. Redraw if indicated. CHLORIDE 101 98 - 107 mmol/L 03/27/2025 5:[address] [facility] CO2 32(H) 22 - 29 mmol/L 03/27/2025 5:[address] [facility] CALCIUM 8.1(L) 8.8 - 10.2 mg/dL 03/27/2025 5:[address] [facility] BUN 10 8 - 23 mg/dL 03/27/2025 5:[address] [facility] CREATININE 0.67 0.67 - 1.17 mg/dL 03/27/2025 5:[address] [facility] Comment:The GFR result is no t clinically significant on patients <18 or >70 years of age. GLUCOSE 92 74 - 99 mg/dL 03/27/2025 5:[address] [facility] GFR >60 mL/min/1.7 3 sq meter 03/27/2025 5:[address] [facility] Comment:eGFR calculated with 2020 CKD-EPI equation. Vegetarian diet, extremely high or low muscle mass, and may affect results. Cystatin C with Glomerular Filtration Rate is a suitable alternative for these patients. ANION GAP 7(L) 9 - 20 mmol/L 03/27/2025 5:[address] [facility] Blood Venipuncture / Unknown 03/27/2025 4:40 AM CDT 03/27/2025 5:07 AM T us Adilene Trinh NP CHEMISTRY ORDERABLES Final Re sult [facility] CLIA # [id number] [address] [place] [address] * VANCOMYCIN LEVEL TROUGH (03/26/2025 12:44 PM CDT) VANCOMYCIN, TROUGH 10.6 10.0 - 17.0 ug/mL 03/26/2025 1:24 PM CDT [facility] Blood Venipuncture / Unknown 03/26/2025 12:44 PM CDT 03/26/2025 12:52 PM CDT us Arin Koroma MD CHEMISTRY ORDERABLES Final Resul t [facility] CLIA # [id number] [address] [place] [address] * UPPER ENDOSCOPY REPORT (03/26/2025 10:15 AM CDT) Narrative Procedure Note Tiago Ryan MD - 03/26/2025 10:15 AM CDT [facility] GI Patient Name: Isreal Arguello Procedure Date: [...] Withdrawal Time Scope In: Scope Out: [address] Tiago Ryan MD GI PROCEDURE ORDERABLES F inal Result * PATHOLOGY (03/26/2025 10:04 AM CDT) CASE REPORT Surgical Pathology Report Case: [id number] Authorizing Provider: Tiago Ryan MD Collected: 03/26/2025 10:04 AM Ordering Location: [facility] Received: 03/26/2025 01:42 PM Endoscopy Pathologist: Marialuisa Lazcano MD Specimens: A) - Stomach B) - Small Intestine, duodenum 9:52 AM CDT [facility] FINAL DIAGNOSIS A. Stomach, biopsy - Mild chronic gastritis - An immunohistochemical stain for H. pylori was performed on block A1 and is negative / B. Small intestine, duodenum, biopsy - Small intestinal mucosa with increased intraepithelial lymphocytes and preserved villous architecture, see comment Marialuisa Lazcano MD [id number] 9:52 AM CDT [facility] at 0952 CDT DIAGNOSIS COMMENT A. No [...] disease). Clinical and serologic correlation is recommended. 5 9:52 AM T [facility] GROSS DESCRIPTION A. Received in a container of formalin labeled Alannah -stomach rule out H. pylori are multiple fragments of mucosa, 0.8 x 0.6 x 0.2 cm. The specimen is submitted entirely in A1. B. Received in a container of formalin labeled Jerauld -duodenum rule out celiac are multiple fragments of mucosa, 0.8 x 0.6 x 0.1 cm. The specimen is submitted entirely in B1. Grossed by: Angeline Andrade MS, PA ([facility])CM 5 9:[address] [facility] OPERATIVE PROCEDURE 1: ESOPHAGOGASTRODUODENOSCO PY 5 9:[address] [facility] CLINICAL INFORMATION R/o H Pylori 5 9:[address] [facility] COMMENT The [place] [place] voice-activated dictation system may have been used [...] determined by the Diagnostic Immunohistochemistry Laboratory of [facility] in compliance with CLIA'88 regulations. Some of these tests rely on the use of analyte specific reagents and are subject to specific labeling requirements by the FDA. All controls show appropriate reactivity. This testing was developed by the Diagnostic Immunohistochemistry Laboratory of [facility]. It has not been cleared or approved by the FDA. The FDA has determined that such clearance or approval is not necessary. 9:52 AM CDT [facility] Tissue ENTIRE STOMACH / Unknown Collection / Unknown 03/26/2025 10:04 AM CDT 03/26/2025 1:42 PM CDT Comment:R/o H Pylori Tissue specimen (specimen) (Small Intestine) Collection / Unknown 03/26/2025 10:04 AM CDT 03/26/2025 1:42 PM CDT Comment:R/O Celiac Sprue us Tiago Ryan MD PATHOLOGY/CYTOLOGY ORDERA BLES Final Result Performing Organization Address [facility] de Phone Number [facility] CLIA # [id number] [address] [id number] * (ABNORMAL) HEMOGLOBIN AND HEMATOCRIT (03/26/2025 8:46 AM CDT) Only the most recent of3 resultswithin the time period is included. HEMOGLOBIN 7.4(L) 14.0 - 18.0 g/dL 03/26/2025 9:05 AM CDT [facility] HEMATOCRIT 26.3(L) 41.0 - 53.0 % 03/26/2025 9:05 AM CDT [facility] Blood Venipuncture / Unknown 03/26/2025 8:46 AM CDT 03/26/2025 8:57 AM CDT us Arin Koroma MD HEMATOLOGY ORDERABLES Final Resu lt Performing Organization Address [facility] Co de Phone Number [facility] CLIA # [id number] [address] [phone] * (ABNORMAL) CBC WITH DIFFERENTIAL (03/26/2025 2:06 AM CDT) Only the most recent of5 resultswithin the time period is included. [facility] WBC 11.4(H) 4.8 - 10.8 K/uL 03/26/2025 2:[address] [facility] RBC 2.95(L) 4.60 - 6.20 M/uL 03/26/2025 2:[address] [facility] HEMOGLOBIN 7.3(L) 14.0 - 18.0 g/dL 03/26/2025 2:[address] [facility] HEMATOCRIT 25.6(L) 41.0 - 53.0 % 03/26/2025 2:[address] [facility] MCV 86.8 84.0 - 103.0 fL 03/26/2025 2:[address] [facility] MCH 24.7(L) 27.0 - 34.0 pg 03/26/2025 2:[address] [facility] MCHC 28.5(L) 30.0 - 35.0 g/dL 03/26/2025 2:[address] [facility] PLATELETS 399 140 - 440 K/uL 03/26/2025 2:[address] [facility] MPV 9.2 8.9 - 12.8 fL 03/26/2025 2:[address] [facility] RDW 18.6(H) 11.0 - 14.5 % 03/26/2025 2:[address] [facility] RDW-STDEV 58.7(H) 37.0 - 54.0 fL 03/26/2025 2:[address] [facility] NEUTROPHILS 79(H) 42 - 75 % 03/26/2025 2:[address] [facility] LYMPHOCYTES 11(L) 24 - 44 % 03/26/2025 2:[address] [facility] MONOCYTES 7 2 - 10 % 03/26/2025 2:[address] [facility] EOSINOPHILS 2 0 - 7 % 03/26/2025 2:[address] [facility] BASOPHILS 1 0 - 1 % 03/26/2025 2:18 AM CDT [facility] IMMATURE GRANULOCYTES 1 0 - 2 % 03/26/2025 2:18 AM CDT [facility] NEUTROPHIL ABSOLUTE 8.93(H) 2.00 - 8.00 K/uL 03/26/2025 2:18 AM CDT [facility] LYMPHOCYTE ABSOLUTE 1.19(L) 1.20 - 4.00 K/uL 03/26/2025 2:18 AM CDT [facility] MONOCYTE ABSOLUTE 0.84(H) 0.10 - 0.60 K/uL 03/26/2025 2:18 AM CDT [facility] EOSINOPHIL ABSOLUTE 0.21 0.00 - 0.70 K/uL 03/26/2025 2:18 AM CDT [facility] BASOPHILS ABSOLUTE 0.06 0.00 - 0.20 K/uL 03/26/2025 2:18 AM CDT [facility] IMMATURE GRANULOCYTES ABSOLUTE 0.15(H) 0.00 - 0.10 K/uL 03/26/2025 2:18 AM CDT [facility] SMEAR REVIEWED: NA - Not Applicable 03/26/2025 2:18 AM CDT [facility] Blood Venipuncture / Unknown 03/26/2025 2:06 AM CDT 03/26/2025 2:09 AM CDT us Adilene Trinh DOOR TO DOOR SELLING AGENT HEMATOLOGY ORDERABLES Final R esult [facility] CLIA # [id number] [address] [place] [phone] * LEGIONELLA ANTIGEN, URINE (03/25/2025 2:47 PM CDT) Pathologist [facility] LEGIONELLA AG, URINE NOT DETECTED Not Detected 03/25/2025 3:56 PM CDT [facility] Urine URINE SPECIMEN OBTAINED BY CLEAN CATCH PROCEDURE / Unknown Collection / Unknown 03/25/2025 2:47 PM CDT 03/25/2025 2:52 PM CDT Narrative [facility] - 03/25/2025 3:56 PM CDT This test [...] ORDERABLE S Final Result Performing Organization Address City/[facility]/ZIP Co de Phone Number [facility] CLIA # [id number] [address] [address] [place] [address] * STREPTOCOCCUS PNEUMONIAE ANTIGEN (03/25/2025 2:47 PM CDT) [facility] STREPTOCOCCUS PNEUMONIAE AG NOT DETECTED Not Detected 03/25/2025 3:55 PM CDT [facility] Urine URINE SPECIMEN OBTAINED BY CLEAN CATCH PROCEDURE / Unknown Collection / Unknown 03/25/2025 2:47 PM CDT 03/25/2025 2:52 PM CDT Arin Koroma MD MICROBIOLOGY - GENERAL ORDERABLE S Final Result Performing Organization Address City/[facility]/ZIP Co de Phone Number [facility] CLIA # [id number] [address] [address] * PERIPHERAL BLOOD SMEAR PATHOLOGY INTERP (03/25/2025 5:01 AM CDT) [facility] PERIPHERAL BLOOD SMEAR INTERP See Interpretation Below 03/26/2025 11:26 AM CDT [facility] INTERPRETED BY: Axel Keating MD 03/26/2025 11:26 AM CDT [facility] Blood Venipuncture / Unknown 03/25/2025 5:01 AM CDT 03/25/2025 5:18 AM CDT Narrative [facility] - 03/26/2025 11:26 AM CDT CLINICAL INFORMATION: [...] ORDERABLES Final Resu lt Performing Organization Address City/[facility]/ZIP Co de Phone Number [facility] CLIA # [id number] [address] [address] [place] [address] * POC GLUCOSE (03/24/2025 1:01 PM CDT) Only the most recent of13 resultswithin the time period is included. GLUCOSE POC 90 74 - 99 mg/dL 03/24/2025 1:01 PM CDT [facility] SPECIMEN SOURCE, GLUCOSE POC Capillary 03/24/2025 1:01 PM CDT [facility] Blood, whole 03/24/2025 1:01 PM CDT 03/24/2025 1:10 PM CDT us Cal Garcia III, DO POINT OF CARE TESTING Fin al Result Performing Organization Address [facility] Co de Phone Number [facility] CLIA # [id number] [address] [place] [address] * TRANSFUSE EMERGENCY RELEASE/DOWNTIME RED BLOOD CELLS (03/24/2025 12:50 PM CDT) Cal Garcia III, DO BLOOD TRANSFUSION ORDERAB LES Final Result * (ABNORMAL) MRSA PCR RAPID SCREEN (03/24/2025 9:28 AM CDT) MRSA PCR RESULT MRSA detected( A) MRSA not detected 03/24/2025 10:44 AM CDT [facility] Surveillance ANTERIOR NARES SWAB / Unknown Collection / Unknown 03/24/2025 9:28 AM CDT 03/24/2025 9:31 AM CDT Narrative [facility] - 03/24/2025 10:44 AM CDT Positive MRSA called to Susy Berkowitz RN by Jose L Vega on 03/24/2025 at 10:43 AM with verbal readback. Adilene Trinh DOOR TO DOOR SELLING AGENT MICROBIOLOGY - GENERAL ORDERA BLES Final Result [facility] CLIA # [id number] [address] [place] [address] * MAGNESIUM LEVEL (03/24/2025 4:41 AM CDT) Only the most recent of2 resultswithin the time period is included. [facility] MAGNESIUM 2.4 1.6 - 2.4 mg/dL 03/24/2025 5:43 AM CDT [facility] Blood Venipuncture / Unknown 03/24/2025 4:41 AM CDT 03/24/2025 5:00 AM CDT Azul Wilkerson DOOR TO DOOR SELLING AGENT CHEMISTRY ORDERABLES Final Re sult [facility] CLIA # [id number] [address] [place] [address] * CORTISOL LEVEL (03/24/2025 4:41 AM CDT) CORTISOL LEVEL 13.5 ug/dL 03/24/2025 5:43 AM CDT [facility] Comment: Cortisol Reference Range Morning Hours 6-10 a.m. 6.0-18.4 ug/dL Afternoon Hours 4-8 p.m. 2.7-10.5 ug/dL Blood Venipuncture / Unknown 03/24/2025 4:41 AM CDT 03/24/2025 5:00 AM CDT Azul Wilkerson NP CHEMISTRY ORDERABLES Final Re sult Performing Organization Address [facility] Co de Phone Number [facility] CLIA # [id number] [address] [id number] * VANCOMYCIN LEVEL RANDOM (03/24/2025 4:41 AM CDT) VANCOMYCIN, RANDOM 10.2 5.0 - 50.0 ug/mL 03/24/2025 5:43 AM CDT [facility] Blood Venipuncture / Unknown 03/24/2025 4:41 AM CDT 03/24/2025 5:00 AM CDT Narrative [facility] - 03/24/2025 5:43 AM CDT Vancomycin Therapeutic Ranges: Vancomycin Trough: 10 - 20 mcg/mL Vancomycin Peak: 25 - 50 mcg/mL us Jaime Ruggiero MD CHEMISTRY ORDERABLES Final R esult Performing Organization Address City/[facility]/ZIP Co de Phone Number [facility] CLIA # [id number] [address] [place] [address] * BLOOD CULTURE (03/23/2025 10:03 PM CDT) Only the most recent of2 resultswithin the time period is included. [facility] BLOOD CULTURE No growth 03/29/2025 3:34 AM CDT [facility] Blood (Peripheral) Venipuncture / Unknown 03/23/2025 10:03 PM CDT 03/23/2025 10:06 PM CDT Narrative [facility] - 03/29/2025 3:34 AM CDT Specimen processed with suboptimal blood volume collected. Tequila Nobles MD MICROBIOLOGY - GENERAL ORDERABLES Final Result [facility] CLIA # [id number] [address] [place] [address] [place] [address] * RESPIRATORY PATHOGEN PCR PANEL (03/23/2025 1:59 PM CDT) [facility] Respiratory Pathogen PCR Panel NOT DETECTED No respiratory pathogen nucleic acids detected. 03/23/2025 3:25 PM CDT [facility] COVID-19 PCR NOT DETECTED Not Detected 03/23/2025 3:25 PM CDT [facility] Upper Respiratory ENTIRE NASOPHARYNX / Unknown Collection / Unknown 03/23/2025 1:59 PM CDT 03/23/2025 2:09 PM CDT Narrative [facility] - 03/23/2025 3:25 PM CDT The Film [...] MICROBIOLOGY - GENERAL ORDERA BLES Final Result [facility] CLIA # [id number] [address] [address] * ECHOCARDIOGRAM W/ CONTRAST AGENT (03/23/2025 10:23 AM CDT) Only the most recent of2 resultswithin the time period is included. EJECTION FRACTION 31 INTERFACE SYSTEM 03/23/2025 9:35 AM CDT Narrative INTERFACE SYSTEM - 03/23/2025 11:19 AM CDT [facility] Cardiovascular Services Echocardiography Laboratory [address] [place] [address] Transthoracic Echocardiography Patient: Isreal Arguello Study ID: ECHO COMPLETE - R Gender: Mary : 1950 Age: 74 Room: [facility] Study 03/23/2025 Pt Inpatient Date: Status: Study 09:35:[address] [facility] #: [id number] Time: Ordering:Azul Wilkerson (student) Bleaching Machine Operator: Angeline Silva Indications and History: Chest pain. [...] (H) odalis values outside specified reference range. [facility] Echo Labs are accredited with the Intersocietal Accreditation Commission - Echocardiography. Prepared and Electronically Authenticated Jose Smith MD Confirmed 03/23/2025 11:19 Procedure Note Jose Smith MD - 03/23/2025 [facility] Cardiovascular Services Echocardiography Laboratory [address] [place] [address] Transthoracic Echocardiography Patient: Isreal Arguello Study ID: ECHO COMPLETE- R Gender: M : 1950 Age: 74 Room: [facility] 03/23/2025 Pt Inpatient Date: Status: Study 09:35:[address] [facility] #: [id number] Time: Ordering:Azul Wilkerson (student) Bleaching Machine Operator: Angeline Silva Indications and History: Chest pain. [...] (H) odalis values outside specified reference range. [facility] Echo Labs are accredited with theIntersocietal Accreditation Commission - Echocardiography. Prepared and Electronically Authenticated Jose Smith MD Confirmed 03/23/2025 11:19 Azul Wilkerson NP US ORDERABLES Final Result INTERFACE SYSTEM Refer to clinic/hospital department * (ABNORMAL) AMMONIA LEVEL (03/23/2025 9:23 AM CDT) AMMONIA 15.5(L) 16.0 - 60.0 umol/L 03/23/2025 9:53 AM CDT [facility] Blood, venous Venipuncture / Unknown 03/23/2025 9:23 AM CDT 03/23/2025 9:27 AM CDT Azul Wilkerson NP CHEMISTRY ORDERABLES Final Re sult Performing Organization Address [facility] de Phone Number [facility] CLIA # [id number] [address] [place] [address] [place] [address] * XR CHEST PA OR AP 1 VW (03/23/2025 7:29 AM CDT) Only the most recent of3 resultswithin the time period is included. Anatomical [...] 7:08 AM CDT) Only the most recent of3 resultswithin the time period is included. LACTIC ACID POC 2.0 <=2.0 mmol/L 03/23/2025 7:08 AM CDT [facility] SPECIMEN SOURCE, GASES POC Arterial 03/23/2025 7:08 AM CDT [facility] [employer] [facility] SITE POC ART PUNCT 03/23/2025 7:08 AM CDT [facility] Blood 03/23/2025 7:08 AM CDT 03/23/2025 7:11 AM CDT Narrative [facility] - 03/23/2025 7:08 AM CDT References ranges displayed are for Arterial samples. us Cal Garcia III, DO POINT OF CARE TESTING Fin al Result [facility] CLIA # [id number] [address] [address] [place] [address] * (ABNORMAL) BLOOD GAS ARTERIAL (03/23/2025 7:08 AM CDT) Only the most recent of3 resultswithin the time period is included. PH BLOOD POC 7.43 7.35 - 7.45 03/23/2025 7:[address] [facility] PCO2 POC 55(H) 35 - 45 mm Hg 03/23/2025 7:[address] [facility] PO2 POC 128(H) 80 - 105 mm Hg 03/23/2025 7:[address] [facility] HCO3 (CALC) POC 37(H) 22 - 26 mmol/L 03/23/2025 7:[address] [facility] HEMOGLOBIN POC 7.6(L) 12.0 - 18.0 g/dL 03/23/2025 7:[address] [facility] BASE EXCESS POC 12(H) -2 - 3 mmol/L 03/23/2025 7:[address] [facility] O2 SATURATION POC 100(H) 95 - 98 % 03/23/2025 7:[address] [facility] SODIUM POC 139 138 - 146 mmol/L 03/23/2025 7:[address] [facility] POTASSIUM POC 4.1 3.5 - 4.9 mmol/L 03/23/2025 7:[address] [facility] HEMATOCRIT POC 23(L) 38 - 51 % 03/23/2025 7:[address] [facility] PH TEMP CORRECT 7.43 7.35 - 7.45 03/23/20 7:[address] [facility] PCO2 TEMP CORRECT 55(H) 35 - 45 mm Hg 03/23/2025 7:[address] [facility] PO2 TEMP CORRECT 128(H) 80 - 105 mm Hg 03/23/2025 7:[address] [facility] SPECIMEN SOURCE, GASES POC Arterial 03/23/2025 7:[address] [facility] CALCIUM IONIZED POC 4.4(L) 4.8 - 5.2 mg/dL 03/23/2025 7:[address] [facility] TCO2 (CALC) POC 38(H) 23 - 27 mmol/L 03/23/2025 7:08 AM CDT [facility] PUNC SITE POC ART PUNCT 03/23/2025 7:08 AM CDT [facility] VENT MODE POC BiPAP 03/23/2025 7:08 AM CDT [facility] PATIENT'S TEMPERATURE POC 37.0 degrees 03/23/2025 7:08 AM CDT [facility] Blood, arterial 03/23/2025 7 :08 AM CDT 03/23/2025 7:11 AM CDT us Cal Garcia III, DO ABG ORDERABLES Final Res ult Performing Organization Address City/[facility]/ZIP Co de Phone Number [facility] CLIA # [id number] Formerly [facility] [address] * LACTIC ACID (03/23/2025 5:26 AM CDT) LACTIC ACID 2.0 <=2.0 mmol/L 03/23/2025 5:58 AM CDT [facility] Blood Venipuncture / Unknown 03/23/2025 5:26 AM CDT 03/23/2025 5:34 AM CDT us Lenora Purdy EXERCISE INSTRUCTOR CHEMISTRY ORDERABLES Fi nal Result [facility] CLIA # [id number] [facility] [address] [address] * (ABNORMAL) PROCALCITONIN (03/23/2025 5:16 AM CDT) PROCALCITONIN 54.34(H) <=0.08 ng/mL 03/23/2025 6:31 AM CDT [facility] Blood Venipuncture / Unknown 03/23/2025 5:16 AM CDT 03/23/2025 5:41 AM CDT Narrative [facility] - 03/23/2025 6:31 AM CDT The utility [...] and peaks within 6-24 hours. Lenora Purdy EXERCISE INSTRUCTOR CHEMISTRY ORDERABLES Fi nal Result [facility] CLIA # [id number] [address] [place] [address] * (ABNORMAL) BASIC METABOLIC PANEL PLUS (ADD ON CMP TO BMP) (03/23/2025 5:16 AM CDT) Pathologist [facility] TOTAL PROTEIN 7.9 6.4 - 8.3 g/dL 03/23/2025 7:51 AM CDT [facility] ALBUMIN 2.8(L) 3.5 - 5.2 g/dL 03/23/2025 7:51 AM CDT [facility] BILIRUBIN TOTAL 0.5 0.0 - 1.0 mg/dL 03/23/2025 7:51 AM CDT [facility] ALKALINE PHOSPHATASE 171(H) 40 - 129 U/L 03/23/2025 7:51 AM CDT [facility] AST 16 10 - 50 U/L 03/23/2025 7:51 AM CDT [facility] ALT 8 <=50 U/L 03/23/2025 7:51 AM CDT [facility] Blood Venipuncture / Unknown 03/23/2025 5:16 AM CDT 03/23/2025 5:41 AM CDT Azul Wilkerson DOOR TO DOOR SELLING AGENT CHEMISTRY ORDERABLES Final Re sult Performing Organization Address [facility] Co de Phone Number [facility] CLIA # [id number] [address] [address] * TYPE AND SCREEN (03/23/2025 5:16 AM CDT) ABO GROUP O 03/23/2025 7:31 AM CDT [facility] RH (D) TYPE Positive 03/23/2025 7:31 AM CDT [facility] ANTIBODY SCREEN Negative 03/23/2025 7:31 AM CDT [facility] Blood Venipuncture / Unknown 03/23/2025 5:16 AM CDT 03/23/2025 5:34 AM CDT Lenora Purdy EXERCISE INSTRUCTOR BLOOD BANK ORDERABLES E dited Result - Final Performing Organization Address City/[facility]/ZIP Co de Phone Number [facility] CLIA#[id number] [address] [place], [place] [address] [place] [address] * (ABNORMAL) C-REACTIVE PROTEIN (03/23/2025 5:16 AM CDT) CRP 60.9(H) 0.0 - 5.0 mg/L 03/23/2025 12:30 PM CDT [facility] [employer] [facility] Blood Venipuncture / Unknown 03/23/2025 5:16 AM CDT 03/23/2025 5:41 AM CDT Azul Wilkerson DOOR TO DOOR SELLING AGENT CHEMISTRY ORDERABLES Final Re sult Performing Organization Address [facility] Co de Phone Number [facility] [employer] [facility] CLIA # [id number] [address] [address] * (ABNORMAL) T4 FREE (03/23/2025 5:16 AM CDT) T4 FREE 0.72(L) 0.81 - 1.70 ng/dL 03/23/2025 2:20 PM CDT [facility] Blood Venipuncture / Unknown 03/23/2025 5:16 AM CDT 03/23/2025 5:41 AM CDT Azul Wilkerson DOOR TO DOOR SELLING AGENT CHEMISTRY ORDERABLES Final Re sult Performing Organization Address [facility] de Phone Number [facility] CLIA # [id number] [address] [address] * PREPARE RED BLOOD CELLS (03/23/2025 4:38 AM CDT) COMPONENT TYPE [id number] [facility] COMPONENT IDENTIFICATION [id number] [facility] UNIT ABO O [facility] UNIT RH NEG [facility] CROSSMATCH Compatible [facility] COMPONENT STATUS Transfused ME [facility] [place] COMPONENT EXPIRATION DATE/TIME [id number] [facility] COMPONENT CODING SYSTEM [address] [facility] [employer] [facility] VOLUME, BLOOD PRODUCT 350 [facility] Other, specify 03/23/2025 4: 38 AM CDT us Lenora Purdy EXERCISE INSTRUCTOR LAB TRANSFUSION ORDERAB LES Edited Result - Final [facility] [employer] [facility] CLIA#[id number] [address] [place] [address], * (ABNORMAL) MANUAL DIFFERENTIAL (03/23/2025 3:57 AM CDT) SEGMENTED NEUTROPHILS 98(H) 36 - 66 % 03/23/2025 4:50 AM CDT [facility] LYMPHOCYTES RELATIVE 0(L) 24 - 44 % 03/23/2025 4:50 AM CDT [facility] MONOCYTES RELATIVE 1(L) 4 - 10 % 03/23/2025 4:50 AM CDT [facility] METAMYELOCYTES RELATIVE 1 0 - 1 % 03/23/2025 4:50 AM CDT [facility] PLATELET EST. Slightly Increased 03/23/2025 4:50 AM CDT [facility] NEUTROPHILS ABSOLUTE COUNT 41.85(H) 2.00 - 8.00 K/uL 03/23/2025 4:50 AM CDT [facility] LYMPHOCYTES ABSOLUTE 0.00(L) 1.20 - 4.00 K/uL 03/23/2025 4:50 AM CDT [facility] ATYPICAL LYMPHS ABSOLUTE 03/23/2025 4:50 AM CDT [facility] MONOCYTES ABSOLUTE 0.43 0.10 - 0.60 K/uL 03/23/2025 4:50 AM CDT [facility] ANISOCYTOSIS 1+ /hpf 03/23/2025 4:50 AM CDT [facility] POLYCHROMASIA 1+ /hpf 03/23/2025 4:50 AM CDT [facility] VACUOLATED NEUTROPHILS Present /hpf 03/23/2025 4:50 AM CDT [facility] TOTAL CELLS COUNTED IN DIFF 100 03/23/2025 4:50 AM CDT [facility] Blood Venipuncture / Unknown 03/23/2025 3:57 AM CDT 03/23/2025 4:02 AM CDT us Lenora Purdy EXERCISE INSTRUCTOR HEMATOLOGY ORDERABLES C OM Final Result Performing Organization Address [facility] Co de Phone Number [facility] CLIA # [id number] [address] [address] [place] [address] * VITAMIN B12 AND FOLATE (03/23/2025 3:57 AM CDT) Pathologist [facility] VITAMIN B12 616 211 - 946 pg/mL 03/23/2025 4:54 AM CDT [facility] FOLATE, SERUM 11.4 3.1 - 17.5 ng/mL 03/23/2025 4:54 AM CDT [facility] Blood Venipuncture / Unknown 03/23/2025 3:57 AM CDT 03/23/2025 4:03 AM CDT us Jaime Ruggiero MD CHEMISTRY ORDERABLES Final R esult Performing Organization Address [facility] Co de Phone Number [facility] CLIA # [id number] [address] [address] * CT ABDOMEN PELVIS W CONTRAST (03/22/2025 [...] No bowel obstruction or bowel inflammation. Jaime Rgugiero MD CT ORDERABLES Final Result * CT [...] MD URINE ORDERABLES Final Resul t [facility] # [id number] [address] [address] [place], [place] [address] * (ABNORMAL) URINALYSIS WITH REFLEX MICROSCOPIC (03/22/2025 8:38 AM [facility]) COLOR UA Pale Yellow Pale to Dark Yellow 03/22/2025 9:[address] [facility] CLARITY UA Turbid(A) Clear 03/22/2025 9:[address] [facility] SPECIFIC GRAVITY UA 1.013 1.003 - 1.035 03/22/2025 9:[address] [facility] PH UA 8.0 5.0 - 8.0 03/22/2025 9:[address] [facility] LEUKOCYTE ESTERASE UA 3+(A) Negative 03/22/2025 9:[address] [facility] NITRITE UA Negative Negative 03/22/2025 9:[address] [facility] PROTEIN UA Trace(A) Negative 03/22/2025 9:[address] [facility] GLUCOSE UA Negative Negative 03/22/2025 9:[address] [facility] KETONES UA Negative Negative 03/22/2025 9:[address] [facility] UROBILINOGEN UA <2.0 <2.0 mg/dL 9:[address] [facility] BILIRUBIN UA Negative Negative 03/22/2025 9:[address] [facility] BLOOD UA Trace(A) Negative 03/22/2025 9:[address] [facility] WBC UA 3-5(A) 0 - 2 /hpf 03/22/2025 9:[address] [facility] RBC UA 3-5(A) 0 - 2 /hpf 03/22/2025 9:[address] [facility] BACTERIA UA Negative Negative /hpf 03/22/2025 9:[address] [facility] EPITHELIAL CELLS, URINE 0-5 0 - 5 /hpf 03/22/2025 9:[address] [facility] TRIPLE PHOS Present(A) Absent 03/22/2025 9:[address] [facility] Urine URINE SPECIMEN OBTAINED BY CLEAN CATCH PROCEDURE / Unknown Collection / Unknown 03/22/2025 8:38 AM CDT 03/22/2025 8:50 AM CDT us Jaime Ruggiero MD URINE ORDERABLES Final Resul t Performing Organization Address [facility] Co de Phone Number [facility] CLIA # [id number] [address] [address] * (ABNORMAL) TROPONIN 6 HR, 5TH GEN (03/22/2025 4:36 AM CDT) TROPONIN T, 6 HR 5TH GEN 133(HH) <=15 ng/L 03/22/2025 5:22 AM CDT [facility] DELTA 6HR TROPONIN T % -9 See Interp. % 03/22/2025 5:22 AM CDT [facility] Blood Venipuncture / Unknown 03/22/2025 4:36 AM CDT 03/22/2025 4:46 AM CDT Narrative [facility] [employer] [facility] - 03/22/2025 5:22 AM CDT Troponin elevated. Delay in collection of timed specimen beyond recommended collection interval. Results must be interpreted in clinical context. Delta not changing. us Bandar Parsons MD CHEMISTRY ORDERABLES Final Res ult Performing Organization Address City/[facility]/ZIP Co de Phone Number [facility] CLIA # [id number] [address] [address] * (ABNORMAL) IRON, TIBC, AND PERCENT SATURATION (03/22/2025 4:36 AM CDT) IRON 16(L) 59 - 158 ug/dL 03/22/2025 6:41 PM CDT [facility] TIBC 316 250 - 450 ug/dL 03/22/2025 6:41 PM CDT [facility] IRON % SATURATION 5(L) 15 - 60 % 03/22/2025 6:41 PM CDT [facility] Blood Venipuncture / Unknown 03/22/2025 4:36 AM CDT 03/22/2025 4:46 AM CDT Jaime Ruggiero MD CHEMISTRY ORDERABLES Final R esult Performing Organization Address City/[facility] Co de Phone Number [facility] CLIA # [id number] [address] [address] * (ABNORMAL) TSH (03/22/2025 4:36 AM CDT) TSH 6.70(H) 0.27 - 4.20 uIU/mL 03/22/2025 6:41 PM CDT [facility] Blood Venipuncture / Unknown 03/22/2025 4:36 AM CDT 03/22/2025 4:46 AM CDT Jaime Ruggiero MD CHEMISTRY ORDERABLES Final R esult Performing Organization Address [facility] Co de Phone Number [facility] CLIA # [id number] [address] [address] * FERRITIN (03/22/2025 4:36 AM CDT) FERRITIN 31.2 30.0 - 400.0 ng/mL 03/22/2025 6:41 PM CDT [facility] Blood Venipuncture / Unknown 03/22/2025 4:36 AM CDT 03/22/2025 4:46 AM CDT Jaime Ruggiero MD CHEMISTRY ORDERABLES Final R esult Performing Organization Address City/[facility] Co de Phone Number [facility] CLIA # [id number] [address] [place] [address] * (ABNORMAL) TROPONIN BASELINE, 5TH GEN (03/21/2025 10:18 PM CDT) TROPONIN T, BASELINE 5TH GEN 146(HH) <=15 ng/L 03/22/2025 4:37 AM CDT [facility] Blood Venipuncture / Unknown 03/21/2025 10:18 PM CDT 03/21/2025 10:23 PM CDT Narrative [facility] - 03/22/2025 4:37 AM CDT Troponin elevated. us Bandar Parsons MD CHEMISTRY ORDERABLES Final Res ult [facility] CLIA # [id number] [address] [place] [address] * (ABNORMAL) BRAIN NATRIURETIC PEPTIDE, BNP OR PROBNP (03/21/2025 10:18 PM CDT) Only the most recent of2 resultswithin the time period is included. PROBNP, N TERMINAL 4,282(H) 0 - 125 pg/mL 03/21/2025 10:58 PM CDT [facility] Comment: INTERPRETIVE COMMENT based on diagnosis: [...] Parsons MD CHEMISTRY ORDERABLES Final Res ult [facility] BRIAN # [id number] [address] [address] [place] [address] * (ABNORMAL) COMPREHENSIVE METABOLIC PANEL (03/21/2025 10:18 PM CDT) Only the most recent of3 resultswithin the time period is included. SODIUM 141 136 - 145 mmol/L 03/21/2025 10:58 PM CDT [facility] POTASSIUM 4.5 3.5 - 5.1 mmol/L 03/21/2025 10:58 PM CDT [facility] CHLORIDE 100 98 - 107 mmol/L 03/21/2025 10:58 PM CDT [facility] CO2 33(H) 22 - 29 mmol/L 03/21/2025 10:58 PM CDT [facility] CALCIUM 8.2(L) 8.8 - 10.2 mg/dL 03/21/2025 10:58 PM CDT [facility] BUN 24(H) 8 - 23 mg/dL 03/21/2025 10:58 PM CDT [facility] CREATININE 1.20(H) 0.67 - 1.17 mg/dL 03/21/2025 10:58 PM T [facility] Comment:The GFR result is no t clinically significant on patients <18 or >70 years of age. GLUCOSE 118(H) 74 - 99 mg/dL 03/21/2025 10:58 PM CDT [facility] TOTAL PROTEIN 8.5(H) 6.4 - 8.3 g/dL 03/21/2025 10:58 PM CDT [facility] ALBUMIN 2.8(L) 3.5 - 5.2 g/dL 03/21/2025 10:58 PM CDT [facility] BILIRUBIN TOTAL 0.2 0.0 - 1.0 mg/dL 03/21/2025 10:58 PM CDT [facility] ALKALINE PHOSPHATASE 141(H) 40 - 129 U/L 03/21/2025 10:58 PM CDT [facility] AST 9(L) 10 - 50 U/L 03/21/2025 10:58 PM CDT [facility] ALT 6 <=50 U/L 03/21/2025 10:58 PM CDT [facility] GFR >60 mL/min/1. 73 sq meter 03/21/2025 10:58 PM CDT [facility] Comment:eGFR calculated with 2020 CKD-EPI equation. Vegetarian diet, extremely high or low muscle mass, and may affect results. Cystatin C with Glomerular Filtration Rate is a suitable alternative for these patients. ANION GAP 8(L) 9 - 20 mmol/L 03/21/2025 10:58 PM CDT [facility] Blood Venipuncture / Unknown 03/21/2025 10:18 PM CDT 03/21/2025 10:23 PM CDT us Bandar Parsons MD CHEMISTRY ORDERABLES Final Res ult [facility] CLIA # [id number] [address] [address] * EKG 12-LEAD (03/21/2025 10:11 PM CDT) 03/21/2025 10:1 1 PM CDT Narrative [facility] - 03/23/2025 1:02 PM CDT [address] [address] Test Date: 2025-03-21 Pat Name: ISREAL ARGUELLO Department: 11 Room: Gender: Male Denture Technician: [id number] : 1950 Requested By: Order Number: [id number] Reading MD: Inessa Zamarripa Measurements Intervals Scroggins Rate: 64 P: 53 WI: 174 QRS: -6 QRSD: 98 T: -77 QT: 434 QTc: 447 Interpretive Statements Sinus rhythm with premature atrial complexes Low voltage QRS Cannot rule out Anterior infarct, age undetermined Abnormal ECG Electronically Signed On 03-23-2025 13:02:21 CDT by Inessa Zamarripa Procedure Note Provider, Historical - 03/23/[address] [address] Test Date: 2025-03-21 Pat Name: ISREAL ARGUELLO Department: 11 Room: Gender: Male Denture Technician: [id number] : 1950 Requested By: Order Number: [id number] Reading MD: Inessa Zamarripa Measurements Intervals Scroggins Rate: 64 P: 53 WI: 174 QRS: -6 QRSD: 98 T: -77 [...] - 10.8 K/uL 02/19/2025 4:19 AM CDT [facility] RBC 3.83(L) 4.60 - 6.20 M/uL 02/19/2025 4:19 AM CDT [facility] HEMOGLOBIN 8.8(L) 14.0 - 18.0 g/dL 02/19/2025 4:19 AM CDT [facility] HEMATOCRIT 32.2(L) 41.0 - 53.0 % 02/19/2025 4:19 AM CDT [facility] MCV 84.1 84.0 - 103.0 fL 02/19/2025 4:19 AM CDT [facility] MCH 23.0(L) 27.0 - 34.0 pg 02/19/2025 4:19 AM CDT [facility] MCHC 27.3(L) 30.0 - 35.0 g/dL 02/19/2025 4:19 AM CDT [facility] PLATELETS 389 140 - 440 K/uL 02/19/2025 4:19 AM CDT [facility] MPV 9.6 8.9 - 12.8 fL 02/19/2025 4:19 AM CDT [facility] RDW 17.6(H) 11.0 - 14.5 % 02/19/2025 4:19 AM T [facility] RDW-STDEV 53.8 37.0 - 54.0 fL 02/19/2025 4:19 AM T [facility] Blood Venipuncture / Unknown 02/19/2025 3:46 AM CDT 02/19/2025 4:14 AM CDT us Lokesh Mckeon MD HEMATOLOGY ORDERABL ES Final Result [facility] CLIA # [id number] [address] [place] [address] * (ABNORMAL) LIPID PANEL (02/17/2025 6:19 AM CDT) [facility] Signature CHOLESTEROL 90 <200 mg/dL 02/17/2025 7:17 AM CDT [facility] TRIGLYCERIDE 118 <150 mg/dL 02/17/2025 7:17 AM CDT [facility] HDL 27(L) 40 - 59 mg/dL 02/17/2025 7:17 AM CDT [facility] LDL CALCULATED 39 <100 mg/dL 02/17/2025 7:17 AM CDT [facility] NON-HDL CHOLESTEROL 63 <130 mg/dL 02/17/2025 7:17 AM CDT [facility] Blood Venipuncture / Unknown 02/17/2025 6:19 AM CDT 02/17/2025 6:28 AM CDT Narrative [facility] - 02/17/2025 7:17 AM CDT TOTAL CHOLESTEROL [...] CHEMISTRY ORDERABLES Final Result Performing Organization Address City/[facility]/ZIP Co de Phone Number [facility] CLIA # [id number] [address] [place] [address] * PHOSPHORUS (02/15/2025 3:40 AM CDT) PHOSPHORUS 3.0 2.5 - 4.5 mg/dL 02/15/2025 4:20 AM CDT [facility] Blood Venipuncture / Unknown 02/15/2025 3:40 AM CDT 02/15/2025 3:46 AM CDT us Garrett Monroe MD CHEMISTRY ORDERABLES Final Resu lt [facility] # [id number] [facility] [address] * ENDOSCOPY, COLON, SCREENING (07/11/2013 12:39 PM [employer]) 07/11/2013 12:3 9 PM [employer] Narrative Procedure Note Demetri Chávez MD - 07/10/2013 12:00 AM CST Procedures signed by Demetri Chávez MD at 07/11/2013 12:39 PM Author: Demetri Chávez MD Service: -- Author Type: Physician Filed: 07/11/2013 12:39 PM Date of Service: 07/10/2013 5:25 PM Status:Signed Lockmaker: Demetri Chávez MD (Physician) Procedure Orders 1. ENDOSCOPY, COLON, MEDICARE SCREENING (WELLNESS) [[id number]] ordered byat 07/01/13 [address] [place], [place] Patient: ISREAL ARGUELLO CSN: [id number] : 1950 Provider: Demetri Chávez MD ENDOSCOPY [...] otherwise unremarkablecolonoscopy. Demetri Chávez MD MMODL D: [id number] V: [id number] cc: Roshan Jimenez DO Roshan Jimenez DO GI PROCEDURE ORDERABLES Fin al Result [facility] from Last 3 Months or Most Recently Relevant to Health Maintenance Insurance MED[place] MEDICARE PART A AND B RX [employer] Member Subscriber Plan / Payer (Ef fective 2023-Present) Name:Alannah Isreal Gui Relation to Subscriber:Self Name:Isreal Arguello Payer ID:Not on file Group ID:[id number] Type:RX Commercial Address: [address] Advance Directives For more information, please contact: [phone] * NO CPR (In Event of Cardiopulmonary [...]
--- OUTSIDE RECORDS SUMMARY | 2025-05-18 07:50 | XMS_ITS | Encounter Summary ---
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
--- OUTSIDE RECORDS SUMMARY | 2025-05-18 07:50 | XMS_ITS | Encounter Summary ---
Author Organization [facility] Address [address] [place] [address] Care Team Providers Care International Editorial Producer Name Role Phone Roshan Jimenez DO Primary Care Provider Unav ailable Encounter Details Date Type Department Care Team (Latest Contact Info) Description 01/01/2001 Outpatient [facility] [phone] [place] [id number] Roshan Jimenez DO NO ADDRESS ON FILE Obstructive chronic bronchitis with exacerbation (CMS/HCC) (Primary Dx); Depressive disorder, not elsewhere classified; Edema; Unspecified essential hypertension Social History Tobacco Use Types Packs/Day Years Used Date Smoking Tobacco: Never Assessed Sex and Gender Information Value Date Recorded Sex Assigned at Not on file 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 Sex 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
--- OUTSIDE RECORDS SUMMARY | 2025-05-18 07:50 | XMS_ITS | Encounter Summary ---
Author Organization [facility] Address [address] [place] [address] Care Team Providers Care Medical Scheduler Name Role Phone Roshan Jimenez DO Primary Care Provider Unav ailable Encounter Details Date Type Department Care Team (Latest Contact Info) Description 05/29/2001 Outpatient [facility] [phone] [place] [id number] Roshan Jimenez DO NO ADDRESS ON FILE Unspecified essential hypertension (Primary Dx); Depressive disorder, not elsewhere classified; Chronic airway obstruction, not elsewhere classified (CMS/HCC) Social History Tobacco Use Types Packs/Day Years Used Date Smoking Tobacco: Never Assessed Sex and Gender Information Value Date Recorded Sex Assigned at Not on file 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
--- OUTSIDE RECORDS SUMMARY | 2025-05-18 07:50 | XMS_ITS | Encounter Summary ---
Author Organization [facility] Address [address] [place] [address] Care Team Providers Care Sales Representative Livestock Name Role Phone Roshan Jimenez DO Primary Care Provider Unav ailable Encounter Details Date Type Department Care Team (Latest Contact Info) Description 05/23/2000 Outpatient Historical [facility] D[facility]- [facility] [address] [place] [id number] Irineo Snyder MD NO ADDRESS ON FILE Hidradenitis (Primary Dx); Benign miguel skin trunk Social History Tobacco Use Types Packs/Day Years Used Date Smoking Tobacco: Never Assessed Sex and Gender Information Value Date Recorded Sex Assigned at Not on file 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
--- NOTE | 2025-05-18 07:51 | W.ED.SOB ---
HPI - SOB/Dyspnea General: Chief Complaint: Shortness of Breath/Dyspnea Stated Complaint: sob Time Seen by Provider: 05/18/25 07:44 Source: patient and EMS Mode of arrival: EMS History of Present Illness: HPI Narrative: 74-year-old male. EMS has multiple medical issues including CHF A-fib recently diagnosed pulmonary emboli along with GI bleed. Patient resides in fpc he became increasingly short of breath overnight and today at the fpc he is on 4 L has some tachypnea states he is feels like he is having hard time breathing he denies any pain or fevers. He did receive a DuoNeb and route. Associated symptoms: Deny abdominal pain, chest pain, fever(s), nausea or vomiting Related Data Home Medications ?Medication ?Instructions ?Recorded ?Confirmed albuterol sulfate 90 mcg/actuation 2 puff inhalation Q4H PRN 11/02/24 05/18/25 aerosol inhaler Shortness Of Breath Or Wheezing aluminum-mag hydroxide-simethicone 30 ml PO Q2H PRN 11/02/24 05/18/25 400 mg-400 mg-40 mg/5 mL oral susp indigeston/heartburn/gas (Mylanta Maximum Strength) bisacodyl 10 mg rectal suppository 10 mg ME .Q72H PRN Constipation 11/02/24 05/18/25 docusate sodium 100 mg capsule 100 mg PO BID 11/02/24 05/18/25 (Colace) ergocalciferol (vitamin D2) 1,250 50,000 mcg PO Q30D 11/02/24 05/18/25 mcg (50,000 unit) capsule fluticasone fur. 200 mcg-umeclid 1 inh inhalation DAILY 11/02/24 05/18/25 62.5 mcg-vilant 25 mcg inhalat.powder (Trelegy Ellipta) magnesium hydroxide 400 mg/5 mL 30 ml PO DAILY PRN Constipation 11/02/24 05/18/25 oral suspension (Milk of Magnesia) multivitamin 1 tab PO QAM 11/02/24 05/18/25 polyethylene glycol 3350 17 17 g PO DAILY PRN bowel management 11/02/24 05/18/25 gram/dose oral powder (Miralax) sennosides 8.6 mg tablet (senna) 8.6 mg PO DAILY PRN Constipation 11/02/24 05/18/25 acetaminophen 325 mg tablet 650 mg PO Q4H PRN elevated 12/06/24 05/18/25 (Tylenol) temp/pain loperamide 2 mg tablet (Imodium 2 mg PO Q6H PRN Diarrhea 01/28/25 05/18/25 A-D) oxycodone-acetaminophen 10 mg-325 1 tab PO Q6H PRN Pain 01/28/25 05/18/25 mg tablet albuterol sulfate 2.5 mg/3 mL 2.5 mg continuous nebulization 03/05/25 05/18/25 (0.083 %) solution for nebulization .TID PRN Shortness Of Breath atorvastatin 40 mg tablet 40 mg PO QPM 03/05/25 05/18/25 clopidogrel 75 mg tablet 75 mg PO DAILY 03/05/25 05/18/25 melatonin 3 mg tablet 6 mg PO BEDTIME PRN Insomnia 03/05/25 05/18/25 nitroglycerin 0.4 mg sublingual See Rx Instructions .Route .COMPLEX 03/05/25 05/18/25 tablet triamcinolone acetonide 0.5 % See Rx Instructions .Route .COMPLEX 03/05/25 05/18/25 topical cream empagliflozin 10 mg tablet 10 mg PO DAILY 04/06/25 05/18/25 (Jardiance) fluoxetine 20 mg capsule 20 mg PO DAILY 04/06/25 05/18/25 gabapentin 300 mg capsule 300 mg PO BID 04/06/25 05/18/25 levothyroxine 50 mcg tablet 50 mcg PO DAILY 04/06/25 05/18/25 potassium chloride 10 mEq 10 meq PO DAILY 04/06/25 05/18/25 tablet,extended release(part/cryst) metoprolol tartrate 25 mg tablet 12.5 mg PO DAILY 05/04/25 05/18/25 semaglutide 1 mg/dose (4 mg/3 mL) 1 mg SUBCUT Q7D 05/04/25 05/18/25 subcutaneous pen injector (Ozempic) bumetanide 2 mg tablet 2 mg PO BID 05/14/25 05/18/25 buspirone 5 mg tablet 5 mg PO BID anxiety 05/14/25 05/18/25 fluoxetine 10 mg tablet 10 mg PO DAILY 05/18/25 05/18/25 pantoprazole 40 mg tablet,delayed See Rx Instructions .Route .COMPLEX 05/18/25 05/18/25 release sucralfate 100 mg/mL oral See Rx Instructions .Route .COMPLEX 05/18/25 05/18/25 suspension Previous Rx's ?Medication ?Instructions ?Recorded Right cockup splint #1 ea 11/28/24 apixaban 5 mg tablet (Eliquis) 2.5 mg (1/2 x 5 mg) PO 05/15/25 BID@0900,2100 60 days #60 tabs Allergies Allergy/AdvReac Type Severity Reaction Status Date / Time broccoli Allergy ADR-Vomitin Verified 04/24/25 07:51 g Review of Systems Const: Denies: fever(s), chills, body aches or change in appetite ENMT: Denies: throat pain or dental pain Card: Denies: chest pain Resp: Reports: dyspnea GI: Denies: abdominal pain, nausea, vomiting or diarrhea Musc: Denies: neck pain or back pain Skin/Breast: Denies: rash Neuro: Denies: headache(s) PFSH ED PFSH: Medical History Pulmonary embolism UTI (urinary tract infection) Dvt femoral (deep venous thrombosis) Bilateral Acute respiratory failure with hypoxia and hypercarbia Anemia Acute on chronic HFrEF (heart failure with reduced ejection fraction) Morbid obesity with BMI of 40.0-44.9, adult NSTEMI (non-ST elevated myocardial infarction) 02/12/2025 Congestive heart failure Atrial fibrillation CKD (chronic kidney disease) History of deep vein thrombosis DNR (do not resuscitate) 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 His sister Bita Jean-Baptiste phone #[phone] is his next of kin. 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 Physical Exam Const: COMMON NORMALS: patient oriented x3 HENMT: COMMON NORMALS: normocephalic and atraumatic HEAD & SCALP: normocephalic and atraumatic Eye: COMMON NORMALS: conjunctivae normal CONJUNCTIVA: Yes conjunctivae normal Neck/C-Spine: COMMON NORMALS: full ROM and supple Chest: COMMONS NORMALS: normal inspection of the chest and normal palpation of entire chest wall Resp: EFFORT & INSPECTION: Yes tachypneic and Yes respiratory distress AUSCULTATION: wheezes Cardio: COMMON NORMALS: regular rate, regular rhythm and No murmurs present (Cardio) RATE: regular rate RHYTHM: regular rhythm GI: COMMON NORMALS: Normal to inspection, nondistended, normoactive bowel sounds present, Soft to palpation, non-tender and no masses PALPATION: Yes Soft to palpation Extremity: COMMON NORMALS: normal to inspection and full ROM Neuro: COMMON NORMALS: patient oriented x3, moves all extremities and no focal motor deficits Psych: COMMON NORMALS: mental status grossly normal, Normal thought process present and cooperative THOUGHT PROCESS: Normal thought process present Skin: COMMON NORMALS: no rashes or lesions noted and no wounds GENERAL SKIN EXAM: no rashes or lesions noted Course Vital Signs: Vital signs: Vital Signs Temperature 98.1 F 05/18/25 07:43 Pulse Rate 91 05/18/25 09:00 Respiratory Rate 29 H 05/18/25 08:45 Blood Pressure 121/74 05/18/25 08:30 Pulse Oximetry 95 05/18/25 09:00 Oxygen Delivery Me thod BiPAP 05/18/25 09:00 Oxygen Flow Rate 4 05/18/25 07:55 Fraction of Inspir ed Oxygen 45 05/18/25 08:16 MDM - SOB/Dyspnea Medical Decision Making Patient presents with respiratory distress along with shortness of breath. He multiple chronic diseases. Patient was hypercapnic here also hypoxic did place him on BiPAP he is improving on BiPAP he does have an elevated white count and lactate consistent with sepsis likely right sided pneumonia he was given IV antibiotics had blood cultures drawn did only give him a 1 L bolus and not the full sepsis bolus as he appears slightly fluid overloaded with his CHF would do more harm than good. Did review his chest x-ray EKG is no signs of acute coronary syndrome. I did speak to the hospitalist Dr. Fuentes and will admit to the ICU Medical Records I reviewed the patient's medical records. Lab Data I reviewed the patient's lab results. 05/18/25 08:07 05/18/25 08:07 Labs/Radiology: Laboratory Results WBC 19.10 10^3/uL (3.29-11.43) H 05/18/25 08:07 RBC 3.14 10^6/uL (3.85-5.65) L 05/18/25 08:07 Hgb 8.20 g/dL (11.27-16.99) L 05/18/25 08:07 Hct 30.6 % (37-53) L 05/18/25 08:07 MCV 97.5 fl (82-101) 05/18/25 08:07 MCH 26.1 pg (27-33) L 05/18/25 08:07 MCHC 26.8 g/dL (30-55) L 05/18/25 08:07 RDW 18.6 % (12.1-15.1) H 05/18/25 08:07 Plt Count 470 10^3/cmm (157-399) H 05/18/25 08:07 MPV 9.6 fL (7.4-10.4) 05/18/25 08:07 Neut % (Auto) 83.4 % 05/18/25 08:07 Lymph % (Auto) 4.9 % 05/18/25 08:07 [place] % (Auto) 9.4 % 05/18/25 08:07 Eos % (Auto) 0.4 % 05/18/25 08:07 Baso % (Auto) 0.3 % 05/18/25 08:07 Neut # (Auto) 15.95 10^3/uL (1.8-7.7) H 05/18/25 08:07 Lymph # (Auto) 0.9 10^3/uL (0.8-4.8) 05/18/25 08:07 [place] # (Auto) 1.8 10^3/uL (0.2-0.9) H 05/18/25 08:07 Eos # (Auto) 0.1 10^3/uL (0.0-0.8) 05/18/25 08:07 Baso # (Auto) 0.1 10^3/uL (0.0-0.1) 05/18/25 08:07 Nucleated RBC % (auto) 1.0 % 05/18/25 08:07 Nucleated RBCs # 0.2 /100WBC 05/18/25 08:07 Specimen Type Arterial 05/18/25 09:22 Sample Site Radial, left 05/18/25 09:22 ABG pH 7.31 (7.35-7.45) L 05/18/25 09:22 ABG pCO2 74.6 mmHg (35-45) H* 05/18/25 09:22 ABG pO2 81.4 mmHg (80.0-100.0) 05/18/25 09:22 ABG PO2/FiO2 Ratio 180 05/18/25 09:22 ABG HCO3 37.8 mmol/L (22-26) H 05/18/25 09:22 ABG O2 Saturation 96.5 05/18/25 09:22 ABG Base Excess 10.2 mmol/L (-2.0-2.0) H 05/18/25 09:22 Ivan Test Pos 05/18/25 09:22 A-a O2 Gradient 19.5 mmHg (5-10) H 05/18/25 09:22 Hematocrit 23.6 % (42-52) L 05/18/25 09:22 Hgb O2 Saturation 93.1 % (95-100) L 05/18/25 09:22 Carboxyhemoglobin 1.8 %THgb (0.4-20.1) 05/18/25 09:22 Methemoglobin 1.6 % (0.4-1.5) H 05/18/25 09:22 Total Hemoglobin 7.7 g/dL (14-18) L 05/18/25 09:22 Sodium 145.0 mmol/L (131-143) H 05/18/25 09:22 Potassium 3.8 mmol/L (3.5-5.0) 05/18/25 09:22 Glucose 141.0 mg/dL (70-115) H 05/18/25 09:22 Ionized Calcium 1.1 mmol/L (1.1-1.4) 05/18/25 09:22 O2 Delivery Device Bipap 05/18/25 09:22 O2 Liters/Min 4.0 % 05/18/25 07:51 FiO2 45.0 % 05/18/25 09:22 Nursing Center Tutor ID Vidal 05/18/25 09:22 Sodium 144 mmol/L (136-145) 05/18/25 08:07 Potassium 4.4 mmol/L (3.5-5.1) 05/18/25 08:07 Chloride 100 mmol/L (98-107) 05/18/25 08:07 Carbon Dioxide 35 mmol/L (22-29) H 05/18/25 08:07 Anion Gap 13.4 (5-19) 05/18/25 08:07 BUN 20 mg/dL (8-23) 05/18/25 08:07 Creatinine 1.1 mg/dL (0.7-1.2) 05/18/25 08:07 GFR Calculation Not Reportable 05/18/25 08:07 Glucose 174 mg/dL (65-115) H 05/18/25 08:07 Calculated Osmolality 305 mOsm/kg (285-295) H 05/18/25 08:07 Lactic Acid 3.9 mmol/L (0.5-2.2) H 05/18/25 08:07 Calcium 8.3 mg/dL (8.5-10.5) L 05/18/25 08:07 Total Bilirubin 0.3 mg/dL (0.15-1.2) 05/18/25 08:07 AST 20 U/L (0-40) 05/18/25 08:07 ALT 14 U/L (0-41) 05/18/25 08:07 Alkaline Phosphatase 144 U/L (40-130) H 05/18/25 08:07 NT-Pro-B Natriuret Pep 6420 pg/mL (0-125) H 05/18/25 08:07 Total Protein 9.0 g/dL (6.6-8.7) H 05/18/25 08:07 Albumin 3.0 g/dL (3.5-5.2) L 05/18/25 08:07 Globulin 6.0 g/dL (1.3-4.6) H 05/18/25 08:07 Amorphous Sediment Not Reportable 05/18/25 08:17 All radiology interpretation(s) finalized by discharge EKG Data EKG 1: I personally reviewed and interpreted this EKG as follows: EKG Interpretation Date: 05/18/25 EKG interpretation time: 07:46 Interpretation: nsr hr [address] elevation qrs 121 qtc 403 Critical Care Time Critical Care Time: Critical Care Time: Yes Total Critical Care Time: 50 Attestation: The high probability of a clinically significant, sudden or life threatening deterioration of the patient's resp system(s) required my full and direct attention, intervention and personal management. The critical care time is as shown. This time is in addition to time spent performing any reported procedures but includes the following: [x] Data and vital sign review and interpretation [x] Patient assessment, examination and intervention [x] Documentation [x] Medication orders and management Discharge Plan Discharge Patient Disposition: Admitted As Inpatient Clinical Impression: Pneumonia, Sepsis, Congestive heart failure, Acute hypoxic on chronic hypercapnic respiratory failure Condition: Stable Coding Level of Care Code ED Pricing Analyst for Chana Glass
[2025-05-18 08:02] LABS: ABG PH Result 7.29 (7.35-7.45); Arterial Blood Gas Hematocrit 25.1 % (42-52); Blood Gas Allen Test Pos; Blood Gas LPM 4.0 %; Blood Gas Operator Identificat WALCI; Blood Gas Sample Site Radial, left; Blood Gas Sample Type Arterial; HCO3 ABG 37.7 mmol/L (22-26); PO2 ABG 64.0 mmHg (80.0-100.0)
[2025-05-18 08:03] LABS: ABG PCO2 78.5 mmHg (35-45)
[2025-05-18 08:13] LABS: Hematocrit 30.6 % (37-53); Hemoglobin 8.20 g/dL (11.27-16.99); Mean Corpuscular HGB Conc 26.8 g/dL (30-55); Mean Corpuscular Hemoglobin 26.1 pg (27-33); Mean Corpuscular Volume 97.5 fl (82-101); Nucleated Red Blood Cells % 1.0 %; Platelet Count 470 10^3/cmm (157-399); Red Blood Count 3.14 10^6/uL (3.85-5.65); White Blood Count 19.10 10^3/uL (3.29-11.43)
[2025-05-18] MEDS: methylPREDNISolone sod succ 125 mg/2 mL INJ IVP (08:15)
[2025-05-18 08:35] LABS: Lactic Sepsis W/Reflex 3.9 mmol/L (0.5-2.2)
[2025-05-18] MEDS: piperacillin-tazobactam 3.375 GM in sodium chloride 0.9% (plus) 50 ML IV ×3 (08:43→23:39)
[2025-05-18 08:45] LABS: Alanine Aminotransferase 14 U/L (0-41); Albumin Level 3.0 g/dL (3.5-5.2); Alkaline Phosphatase 144 U/L (40-130); Anion Gap 13.4 (5-19); Aspartate Amino Transferase 20 U/L (0-40); Blood Urea Nitrogen 20 mg/dL (8-23); Calcium 8.3 mg/dL (8.5-10.5); Carbon Dioxide 35 mmol/L (22-29); Chloride 100 mmol/L (98-107); Creatinine Clr Calc Pharmacy 86.7096; Globulin 6.0 g/dL (1.3-4.6); Glucose 174 mg/dL (65-115); NT Pro B Type Natriuretic Pept 6420 pg/mL (0-125); Osmolality Calculated 305 mOsm/kg (285-295); Potassium 4.4 mmol/L (3.5-5.1); Sodium 144 mmol/L (136-145); Total Protein 9.0 g/dL (6.6-8.7)
[2025-05-18 09:29] LABS: Glucose Urine UA 2+ (Normal); Nitrate Urine Negative (Negative); Specific Gravity, Urine 1.024 (1.005-1.030)
[2025-05-18 09:31] LABS: Add Urine Microscopic? YES
[2025-05-18 09:34] LABS: ABG PCO2 74.6 mmHg (35-45); ABG PH Result 7.31 (7.35-7.45); Alveolar-Arterial Oxygen Gradi 19.5 mmHg (5-10); Arterial Blood Gas Hematocrit 23.6 % (42-52); Blood Gas Allen Test Pos; Blood Gas Operator Identificat WALCI; Blood Gas Sample Site Radial, left; Blood Gas Sample Type Arterial; Carboxyhemoglobin 1.8 %THgb (0.4-20.1); Glucose Level-ABG 141.0 mg/dL (70-115); HCO3 ABG 37.8 mmol/L (22-26); Ionized Calcium Level - ABG 1.1 mmol/L (1.1-1.4); Methemoglobin 1.6 % (0.4-1.5); Oxygen Saturation ABG 96.5; PO2 ABG 81.4 mmHg (80.0-100.0); PO2 FiO2 Ratio Arterial Blood 180; Potassium Level - ABG 3.8 mmol/L (3.5-5.0); Sodium Level - ABG 145.0 mmol/L (131-143)
[2025-05-18 10:10] LABS: Reflex Lactate Order REFLEX LACTIC ORDERD
--- NOTE | 2025-05-18 10:51 | CTR_ITS ---
PROCEDURE INFORMATION: Exam: CT Chest Without Contrast; Diagnostic Exam date and time: 05/18/2025 11:15 AM Age: 74 years old Clinical indication: Other: AMS, UTI, pna, sepsis TECHNIQUE: Imaging protocol: Diagnostic computed tomography of the chest without contrast. Radiation optimization: All CT scans at this facility use at least one of these dose optimization techniques: automated exposure control; mA and/or kV adjustment per patient size (includes targeted exams where dose is matched to clinical indication); or iterative reconstruction. COMPARISON: CT angio chest PE protcl [id number] 05/04/2025 6:02 PM RADIATION DOSE METRICS: Total DLP (mGy-cm): 1458.37 FINDINGS: Lungs: Left lower lobe consolidation is again seen which may represent compressive atelectasis. Mild emphysema is noted at the apices. There is mild right lower lobe atelectasis at the base. A few scattered less than 6 mm pulmonary nodules are seen in the lungs without appreciable change. Mild ground-glass opacity in the right upper lobe toward the apex. This is nonspecific. Pleural spaces: Moderate left pleural effusion without change. Trace right pleural effusion. Heart: Unremarkable. No cardiomegaly. No pericardial effusion. Coronary arteries: Moderate coronary calcifications. Lymph nodes: Unremarkable. No enlarged lymph nodes. Vasculature: Unremarkable. No aortic aneurysm. Bones/joints: Unremarkable. No acute fracture. Soft tissues: Unremarkable. COMMENTS: The presence of pulmonary emphysema on CT is an independent risk factor for lung cancer. In the absence of a history or active diagnosis of lung cancer, it is recommended that this patient with emphysema be evaluated for enrollment in a low dose CT lung cancer screening program. PROCEDURE INFORMATION: Exam: CT Abdomen And Pelvis Without Contrast Exam date and time: 05/18/2025 11:15 AM Age: 74 years old Clinical indication: Other: AMS, UTI, pna, sepsis TECHNIQUE: Imaging protocol: Computed tomography of the abdomen and pelvis without contrast. Radiation optimization: All CT scans at this facility use at least one of these dose optimization techniques: automated exposure control; mA and/or kV adjustment per patient size (includes targeted exams where dose is matched to clinical indication); or iterative reconstruction. COMPARISON: CT bony pelvis [id number] 11/03/2024 9:57 AM RADIATION DOSE METRICS: Total DLP (mGy-cm): 1458.37 FINDINGS: Liver: Normal. No mass. Gallbladder and biliary ducts: Status post cholecystectomy. Pancreas: Normal. No ductal dilation. Spleen: Normal. No splenomegaly. Adrenal glands: Normal. No mass. Kidneys and ureters: Normal. No hydronephrosis. Stomach and bowel: Unremarkable. No obstruction. No mucosal thickening. Appendix: No evidence of appendicitis. Intraperitoneal space: Unremarkable. No free air. No significant fluid collection. Vasculature: Unremarkable. No abdominal aortic aneurysm. Lymph nodes: Unremarkable. No enlarged lymph nodes. Urinary bladder: There is a Robertson catheter in a decompressed urinary bladder. Reproductive: Unremarkable as visualized. Bones/joints: Unremarkable. No acute fracture. Soft tissues: Unremarkable. CT/[place] [id number] IMPRESSION: 1. Left lower lobe consolidation/atelectasis with a moderate left pleural effusion. 2. Scattered less than 6 mm pulmonary nodules without appreciable change. 3. Mild ground-glass opacity in the right upper lobe which is nonspecific. IMPRESSION: No acute findings.
--- NOTE | 2025-05-18 10:56 | CTR_ITS ---
PROCEDURE INFORMATION: Exam: CT Head Without Contrast Exam date and time: 05/18/2025 11:11 AM Age: 74 years old Clinical indication: Altered mental status/memory loss; Additional info: AMS TECHNIQUE: Imaging protocol: Computed tomography of the head without contrast. Radiation optimization: All CT scans at this facility use at least one of these dose optimization techniques: automated exposure control; mA and/or kV adjustment per patient size (includes targeted exams where dose is matched to clinical indication); or iterative reconstruction. COMPARISON: CT head wo con* [id number] 05/03/2025 11:19 PM RADIATION DOSE METRICS: Total DLP (mGy-cm): 1014.28 FINDINGS: Brain: Normal. No hemorrhage. Unremarkable white matter. No mass effect. Slightly low-lying cerebellar tonsils again noted. Cerebral ventricles: No ventriculomegaly. Paranasal sinuses: Visualized sinuses are unremarkable. No fluid levels. Mastoid air cells: Visualized mastoid air cells are well aerated. Bones: Unremarkable. No acute fracture. Soft tissues: Unremarkable. CT/CT head wo con* [id number] IMPRESSION: No acute intracranial abnormality.
--- NOTE | 2025-05-18 11:01 | ECG_ITS ---
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 Measurements Intervals [place] Rate: 90 P: 44 OR: 196 QRS: -6 QRSD: 106 T: 59 QT: 374 QTc: 458 Interpretive Statements SINUS RHYTHM LOW QRS VOLTAGE IN PRECORDIAL LEADS [QRS DEFLECTION < 1.0 mV IN CHEST LEADS] POSSIBLE SEPTAL MYOCARDIAL INFARCTION , PROBABLY OLD [30 ms Q WAVE IN V1/V2] Compared to ECG 05/18/2025 07:46:01 Low QRS voltage now present Myocardial infarct finding still present Electronically Signed On 05-18-2025 17:39:14 CDT by Michelle Sandhu M.D. [email or web address]
--- NOTE | 2025-05-18 11:02 | P.HP_ITS ---
Providers/Chief Complaint 2 Admitting Physician: Vijay Duncan MD Primary Care Provider: Otilio Huang Chief Complaint: sob History of Present Illness Edson Jaffe is a 74 year old male with a past medical history of pulmonary embolism, he had recent history of admission for GI bleed, acute anemia, hypertension, hyperlipidemia, history of systolic diastolic CHF, history of PCI in January 2025 [facility] in [place], on Plavix, atrial fibrillation, chronic indwelling Robertson catheter who presents [facility] due to altered mental status, shortness of breath, low blood pressures. Currently Edson is alert to person, not to place, not to time, he does not follow commands, is globally encephalopathic, on BiPAP, blood pressures MAP is around 65, and mild to moderate respiratory distress, when he is very, intercostal retractions, suprasternal retractions, tachypnea, tachycardia. No family members are at bedside. According to ER provider patient is brought in from the custodial facility due to tachypnea. I spoke to patient's residential, according to residential, since coming from the hospital for his GI bleed, Edson has been more confused. He has been more weak, no recent falls, his dose of Eliquis has been reduced to 2.5 mg twice daily. Today nursing staff noticed that his extremities and his lips were blue, and they were not able to measure a O2 sat on him, and his blood pressures were soft, was not responding appropriately. His blood pressures did improve to normotensive, but he appeared short of breath, complained of shortness of breath so he was brought to [facility] for evaluation. He has not taken his Eliquis this morning. No reported bloody black stools. Review of Systems 2 General: Reports: ROS unobtainable due to mental status Medications/Allergies Home Medications ?Medication ?Instructions ?Recorded ?Confirmed ?Last Taken ?Type albuterol sulfate 90 mcg/actuation 2 puff inhalation Q 4H PRN 11/02/24 05/18/25 12/05/24 History aerosol inhaler Shortness Of Breath Or Whe[place] ing aluminum-mag hydroxide-simethicone 30 ml PO Q2H PRN 05/18/25 04/05/25 History 400 mg-400 mg-40 mg/5 mL oral susp indigeston/heartbur n/gas (Mylanta Maximum Strength) bisacodyl 10 mg rectal suppository 10 mg NC .Q72H PRN Constipation 11/02/24 05/18/25 Unknown History docusate sodium 100 mg capsule 100 mg PO BID 11/02/24 05/18/25 05/17/25 History (Colace) ergocalciferol (vitamin D2) 1,250 50,000 mcg PO Q30D 0 11/02/24 05/18/25 03/28/25 History mcg (50,000 unit) capsule fluticasone fur. 200 mcg-umeclid 1 inh inhalation THUY Y 11/02/24 05/18/25 05/17/25 History 62.5 mcg-vilant 25 mcg inhalat.powder (Trelegy Ellipta) magnesium hydroxide 400 mg/5 mL 30 ml PO DAILY PRN Con stipation 11/02/24 05/18/25 02/25/25 08:30 History oral suspension (Milk of Magnesia) multivitamin 1 tab PO QAM 11/02/2405/17/25 History polyethylene glycol 3350 17 17 g PO DAILY PRN bowel ma nagement 11/02/24 05/18/25 11/20/24 History gram/dose oral powder (Miralax) sennosides 8.6 mg tablet (senna) 8.6 mg PO DAILY PRN C onstipation 11/02/24 05/18/25 02/09/25 History Right cockup splint #1 ea 11/28/24 05/18/25 Unkn own Rx acetaminophen 325 mg tablet 650 mg PO Q4H PRN elevated 12/06/24 05/18/25 01/30/25 History (Tylenol) temp/pain loperamide 2 mg tablet (Imodium 2 mg PO Q6H PRN Diarrh ea 01/28/25 05/18/25 05/13/25 19:15 History A-D) oxycodone-acetaminophen 10 mg-325 1 tab PO Q6H PRN Deb n 01/28/25 05/18/25 05/16/25 History mg tablet albuterol sulfate 2.5 mg/3 mL 2.5 mg continuous nebuli zation 03/05/25 05/18/25 03/04/25 11:40 History (0.083 %) solution for nebulization .TID PRN Shortness Of Breath atorvastatin 40 mg tablet 40 mg PO QPM 03/05/2505/17/25 History clopidogrel 75 mg tablet 75 mg PO DAILY 03/05/2504/2905/17/25 History melatonin 3 mg tablet 6 mg PO BEDTIME PRN Insomnia 03/05/25 05/18/25 05/13/25 21:35 History nitroglycerin 0.4 mg sublingual See Rx Instructions .R oute .COMPLEX 03/05/25 05/18/25 Unknown History tablet triamcinolone acetonide 0.5 % See Rx Instructions .Rou te .COMPLEX 03/05/25 05/18/25 05/18/25 History topical cream empagliflozin 10 mg tablet 10 mg PO DAILY 04/06/2505/17/25 History (Jardiance) fluoxetine 20 mg capsule 20 mg PO DAILY 04/06/2504/2905/17/25 History gabapentin 300 mg capsule 300 mg PO BID 04/06/2505/1805/17/25 History levothyroxine 50 mcg tablet 50 mcg PO DAILY 04/06/25 0 05/18/25 05/17/25 History potassium chloride 10 mEq 10 meq PO DAILY 04/06/2505/17/25 History tablet,extended release(part/cryst) metoprolol tartrate 25 mg tablet 12.5 mg PO DAILY 03/2105/18/25 05/17/25 History semaglutide 1 mg/dose (4 mg/3 mL) 1 mg SUBCUT Q7D 03/2105/18/25 04/28/25 History subcutaneous pen injector (Ozempic) bumetanide 2 mg tablet 2 mg PO BID 05/14/25 5 05/17/25 History buspirone 5 mg tablet 5 mg PO BID anxiety 05/14/25 05/18/25 05/17/25 History apixaban 5 mg tablet (Eliquis) 2.5 mg (1/2 x 5 mg) PO 05/15/25 05/18/25 05/17/25 Rx BID@0900,2100 60 days #60 tabs fluoxetine 10 mg tablet 10 mg PO DAILY 05/18/2504/2925 09/20/25 History pantoprazole 40 mg tablet,delayed See Rx Instructions .Route .COMPLEX 05/18/25 05/18/25 05/17/25 History release sucralfate 100 mg/mL oral See Rx Instructions .Route . COMPLEX 05/18/25 05/18/25 05/17/25 History suspension Allergies Allergy/AdvReac Type Severity Reaction Status Date / Time broccoli Allergy ADR-Vomitin Verified 04/24/25 07:51 g PFSH Acute 2 PFSH: Medical History Pulmonary embolism UTI (urinary tract infection) Dvt femoral (deep venous thrombosis) Bilateral Acute respiratory failure with hypoxia and hypercarbia Anemia Acute on chronic HFrEF (heart failure with reduced ejection fraction) Morbid obesity with BMI of 40.0-44.9, adult NSTEMI (non-ST elevated myocardial infarction) 02/12/2025 Congestive heart failure Atrial fibrillation CKD (chronic kidney disease) History of deep vein thrombosis DNR (do not resuscitate) custodial resident COPD with acute exacerbation Open wound of right lower leg Open wound of left lower leg Pressure ulcer of right buttock, stage 3 Social History Smoking and tobacco/nicotine status: former use of tobacco/nicotine Quit status (tobacco/nicotine): has quit using Year quit tobacco: 2022 Alcohol intake: former Year of sobriety/quit date alcohol: 2021 Substance/Drug Use: never Additional social history: Patient lives in a residential he wants DO NOT RESUSCITATE status as discussed with Cole Sheriff MD on 05/14/2025. His sister Bita Jean-Baptiste phone #[phone] is his next of kin. 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 Vitals/I&O/Wt Last Vital Signs Temp 97.7 F 05/18/25 10:30 Pulse 88 05/18/25 10:50 Resp 28 H 05/18/25 10:50 BP 93/55 05/18/25 10:50 Pulse Ox 99 05/18/25 10:50 O2 Del Method BiPAP 05/18/25 10:43 O2 Flow Rate 4 05/18/25 07:55 FiO2 40 05/18/25 10:34 05/17/25 05/18/25 05/18/25 22:59 06:59 14:59 Intake Total 50 / 50 Balance 50 / 50 Weight last 48 hrs Weight 137.438 kg Weight 136.078 kg Physical Exam 2 Const: COMMON NORMALS: no acute distress HENMT: COMMON NORMALS: normocephalic HEAD & SCALP: normocephalic Eye: COMMON NORMALS: Equal, round and reactive pupils present Neck/C-Spine: COMMON NORMALS: no JVD Lymph: LYMPHATIC: no lymphadenopathy noted Resp: OTHER: Tachypnea, wheezing and crackles in all lung portillo, respiratory rate 25, nasal flaring, intercostal, suprasternal retractions, mild to moderate respiratory distress Cardio: COMMON NORMALS: no JVD, S1 normal heart sound present and S2 normal heart sound present RATE: tachycardic RHYTHM: regular rhythm HEART SOUNDS: S1 normal heart sound present and S2 normal heart sound present GI: COMMON NORMALS: Normal to inspection, nondistended, normoactive bowel sounds present, Soft to palpation and non-tender : COMMON NORMALS: Yes no CVA tenderness Extremity: COMMON NORMALS: no calf tenderness and no pedal edema Neuro: OTHER: Alert to person, not place, not to time, does not follow commands, diffusely encephalopathic Skin: NARRATIVE SKIN EXAM: Right groin, wound, purulence around the area Urinary Catheter Management: Robertson: Cath Placed During This Visit: no Urethral Indwelling: Yes Data 05/18/25 08:07 05/18/25 08:07 Micro: Microbiology 05/18/25 08:36 Blood Culture - Preliminary Blood SPECIMEN COLLECTED 05/18/25 08:37 Blood Culture - Preliminary Blood SPECIMEN COLLECTED A&P Assessment and plan 1. Congestive heart failure: 2. Coronary artery disease: 3. Chronic anticoagulation: 4. Pulmonary embolism: 5. Chronic hypoxemic respiratory failure: 6. Chronic indwelling Robertson catheter: 7. Morbid obesity with BMI of 40.0-44.9, adult: Plan: Acute hypoxic hypercarbic respiratory failure - Secondary to COPD exacerbation - Secondary to pneumonia Healthcare associated given recent hospitalizations -Component of systolic and diastolic CHF Plan -Monitor in the ICU closely - Has received Solu-Medrol 125 - Add Solu-Medrol 40 mg IV every 8 hours - Will cover for healthcare associate pneumonia vancomycin, and Zosyn - Hold off on diuretics for now - Monitor respiratory status closely on BiPAP - DuoNeb - Budesonide Pneumonia -CT chest - COVID panel - Sputum culture UTI - History of Proteus ESBL infection - CT scan abdomen - Culture - Zosyn Sepsis - Secondary to pneumonia and urinary tract infection - Monitor blood pressures closely - Maintain MAP in the 65 - Levophed to maintain MAP below 65 if required - Has received sepsis bolus in the emergency room Lactic acidosis likely secondary to sepsis History of CAD - Recent history of coronary intervention at [facility] in 2024 on Plavix - Serial EKGs, serial troponins History of systolic diastolic CHF CONCLUSIONS Moderately increased left ventricular cavity size. Moderate to Severely decreased left ventricular systolic function. Left ventricular ejection fraction is estimated at 35-40 %. Global left ventricular hypokinesis. Grade I/IV diastolic dysfunction (abnormal relaxation filling pattern), normal to mildly elevated filling pressures. Moderate aortic valve calcification. Moderate aortic valve stenosis, mean gradient 14.2 mmHg, ANUEL 1.2 cm squared. Trace aortic valve regurgitation. There is no pericardial effusion. Right atrial pressure is around 5 mm of mercury. Acute encephalopathy - Multifactorial from UTI, pneumonia, hypercarbia, sepsis - Keep n.p.o. - Neurochecks Acute on chronic anemia - History of GI bleed -Recent history of EGD - Protonix, Carafate History of atrial fibrillation, history of bilateral pulm embolism - Switch to therapeutic Lovenox Full code Lovenox for DVT prophylaxis PDMP PDMP Reviewed: Not Reviewed Attestations 2 Medical Necessity Statement*: Patient requires hospitalization, inpatient, greater than 2 midnights, for sepsis, secondary to pneumonia, UTI, altered mental status, acute hypoxic respiratory failure, lactic acidosis, hypercarbic respiratory failure, Diagnoses Congestive heart failure I50.9 Coronary artery disease I25.10 Chronic anticoagulation Z79.01 Pulmonary embolism I26.99 Chronic hypoxemic respiratory failure J96.11 Chronic indwelling Robertson catheter Z97.8 Morbid obesity with BMI of 40.0-44.9, adult E66.01; Z68.41 Sepsis Event Note Evaluation Current stage of sepsis: severe sepsis Initial hypotension due to sepsis/infection: SBP < 90 mmHg Persistent hypotension due to sepsis/infection: SBP < 90 mmHg Possible source: pulmonary and genitourinary Focused Exam Vital Signs Temp Pulse Resp BP Pulse Ox O2 Del Method O2 Flow Rate 05/18/25 11:00 86 25 H 93/55 98 BiPAP 05/18/25 10:55 88 26 H 93/55 100 BiPAP 05/18/25 10:50 88 28 H 93/55 99 05/18/25 10:45 96 25 H 83 L 05/18/25 10:43 BiPAP 05/18/25 10:40 90 29 H 05/18/25 10:39 92 29 H 05/18/25 10:34 95 05/18/25 10:33 88 106/60 93 05/18/25 10:30 97.7 F 106/60 05/18/25 10:25 106/60 05/18/25 10:20 91 26 H 106/60 100 05/18/25 10:15 95 22 H 106/60 05/18/25 10:04 87 95 05/18/25 10:00 87 106/60 93 05/18/25 09:45 87 112/68 94 05/18/25 09:15 89 96 05/18/25 09:00 91 95 BiPAP 05/18/25 08:45 99 29 H 86 L BiPAP 05/18/25 08:30 102 H 21 H 121/74 99 BiPAP 05/18/25 08:16 100 95 05/18/25 08:15 101 H 27 H 121/74 93 05/18/25 07:55 86 18 93 Nasal Cannula 4 05/18/25 07:43 98.1 F 110 H 22 H 127/75 93 Nasal Cannula 4 FiO2 05/18/25 11:00 05/18/25 10:55 05/18/25 10:50 05/18/25 10:45 05/18/25 10:43 05/18/25 10:40 05/18/25 10:39 05/18/25 10:34 40 05/18/25 10:33 05/18/25 10:30 05/18/25 10:25 05/18/25 10:20 05/18/25 10:15 05/18/25 10:04 40 05/18/25 10:00 05/18/25 09:45 05/18/25 09:15 05/18/25 09:00 05/18/25 08:45 05/18/25 08:30 05/18/25 08:16 45 05/18/25 08:15 05/18/25 07:55 05/18/25 07:43 Respiratory exam: Present respiratory distress and wheezes Cardiovascular exam: Present tachycardia Capillary refill: < 3 Seconds Peripheral pulse strength: 1+ Faint Peripheral pulse location: Radial Skin exam: pale Date exam was performed: 05/18/25 Time exam was performed: 11:07 Problem List 1. Congestive heart failure: Status: Acute 2. Coronary artery disease: Status: Acute 3. Chronic anticoagulation: Status: Acute 4. Pulmonary embolism: Status: Acute 5. Chronic hypoxemic respiratory failure: Status: Acute 6. Chronic indwelling Robertson catheter: Status: Chronic 7. Morbid obesity with BMI of 40.0-44.9, adult: Status: Acute
[2025-05-18 11:20] LABS: INR 1.06 (0.8-1.2); Prothrombin Time 14.60 SECONDS (12.1-14.9)
[2025-05-18 11:21] LABS: Partial Thromboplastin Time 26.4 SECONDS (23.9-36.7)
[2025-05-18 11:23] LABS: Lactic Acid level (Lactate) 2.2 mmol/L (0.5-2.2)
[2025-05-18 11:43] LABS: Troponin(5th) Baseline 79 ng/L (0-15)
[2025-05-18 11:51] LABS: Procalcitonin 0.24 ng/mL (0-0.5); Thyroid Stimulating Hormone 3.25 uIU/mL (0.27-4.20)
[2025-05-18 11:52] LABS: Respiratory Syncytial Virus Ce NEGATIVE (Negative); SARS-CoV-2 PCR NEGATIVE (Negative)
[2025-05-18] MEDS: pantoprazole 40 mg SDV IVP ×2 (11:56→23:38)
[2025-05-18] MEDS: sucralfate 1 gm/10 mL Oral Liq UDC PO ×3 (11:56→23:37)
[2025-05-18 12:49] LABS: MRSA PCR OZH (swab) MRSA Detected (Negative)
--- NOTE | 2025-05-18 12:53 | ECG_ITS ---
[facility] 2025-[facility]18 Pat Name: Edson Jaffe Department: Room: [facility] Gender: Male Benefits Administrator: : 1950 Requested By: Vijay Duncan Order Number: [id number] Reading MD: Michelle Sandhu M.D. Measurements Intervals [place] Rate: 82 P: 55 FL: 177 QRS: -2 QRSD: 107 T: 65 QT: 390 QTc: 457 Interpretive Statements SINUS RHYTHM POSSIBLE SEPTAL MYOCARDIAL INFARCTION , PROBABLY OLD [30 ms Q WAVE IN V1/V2] Compared to ECG 05/18/2025 11:01:00 No significant changes Electronically Signed On 05-18-2025 17:47:32 CDT by Michelle Sandhu M.D. [email or web address]
[2025-05-18 13:28] LABS: Troponin 5 2HR 74.59 ng/L (0-15); Troponin 5 2HR Delta -4.41 ABS# (0-10)
--- NOTE | 2025-05-18 14:46 | PC.NURSE ---
Upon arrival to ICU 2 patient assessment completed. Patient has scaring of sacral area and gluteal cleft without open areas. Patient Right groin area had saturated optifoam in place. Dressing removed, brown, yellow, and green purulent drainage on dressing and oozing from wound. Wound has a strong odor.
--- NOTE | 2025-05-18 15:14 | PHA.VACGOAL ---
Vancomycin Goal - Goal Vancomycin Goal:: 15-20 mg/L Vancomycin Indication:: Pneumonia - Therapy Current therapy:: Pip/Tazo Day of therpy:: Day [1]of [] . Actual body weight (kg): 137.438 kg - Data Labs: WBC 19.10 10^3/uL (3.29-11.43) H 05/18/25 08:07 RBC 3.14 10^6/uL (3.85-5.65) L 05/18/25 08:07 Hgb 8.20 g/dL (11.27-16.99) L 05/18/25 08:07 Hct 30.6 % (37-53) L 05/18/25 08:07 MCV 97.5 fl (82-101) 05/18/25 08:07 MCH 26.1 pg (27-33) L 05/18/25 08:07 MCHC 26.8 g/dL (30-55) L 05/18/25 08:07 RDW 18.6 % (12.1-15.1) H 05/18/25 08:07 Sodium 144 mmol/L (136-145) 05/18/25 08:07 Potassium 4.4 mmol/L (3.5-5.1) 05/18/25 08:07 Chloride 100 mmol/L (98-107) 05/18/25 08:07 Carbon Dioxide 35 mmol/L (22-29) H 05/18/25 08:07 Anion Gap 13.4 (5-19) 05/18/25 08:07 BUN 20 mg/dL (8-23) 05/18/25 08:07 Creatinine 1.1 mg/dL (0.7-1.2) 05/18/25 08:07 GFR Calculation Not Reportable 05/18/25 08:07 Treatment plan:: new consult Regimen:: New start vancomycin for pneumonia. Patient received 1000 mg dose in the ER. Due to prior vancomycin history will start patient on maintenance dose of 1750 mg q24h.
[2025-05-18] MEDS: vancomycin 1,750 MG/350 ML PIGGYBACK 175 MG IV (16:08)
--- NOTE | 2025-05-18 16:53 | ECG_ITS ---
[facility] Test Date: 2025-05-18 Pat Name: Edson Jaffe Department: Room: ICU02 Gender: Male Health Officer: : 1950 Requested By: Vijay Duncan Order Number: [id number] Richar MD: Michelle Sandhu M.D. Measurements Intervals [place] Rate: 80 P: 63 MA: 184 QRS: -4 QRSD: 102 T: 60 QT: 404 QTc: 468 Interpretive Statements SINUS RHYTHM LOW QRS VOLTAGE [QRS DEFLECTION < 0.5/1.0 mV IN LIMB/CHEST LEADS] PROBABLE SEPTAL MYOCARDIAL INFARCTION , PROBABLY OLD [35 ms Q WAVE IN V1/V2] Compared to ECG 05/18/2025 13:09:18 Low QRS voltage now present Myocardial infarct finding still present Electronically Signed On 05-18-2025 17:47:23 CDT by Michelle Sandhu M.D. [id number] [id number]
[2025-05-18 17:20] LABS: Troponin 5 6HR 64.65 ng/L (0-15)
[2025-05-18 17:21] LABS: Troponin 5 6HR Delta -14.35 ng/L (0-12)
[2025-05-18] MEDS: oxyCODONE-APAP 10-325 mg Tablet 1 TAB PO (23:40)
[2025-05-19] VITALS (84 sets, daily range): BP systolic 94–160; BP diastolic 48–96; PULSE 61–81; RESP 13–31; TEMP 36.4–36.8; O2SAT 90–100
[2025-05-19 04:25] LABS: Hematocrit 23.9 % (37-53); Mean Corpuscular HGB Conc 27.2 g/dL (30-55); Mean Corpuscular Hemoglobin 26.1 pg (27-33); Mean Corpuscular Volume 96.0 fl (82-101); Nucleated Red Blood Cells % 0.5 %; Platelet Count 392 10^3/cmm (157-399); Red Blood Count 2.49 10^6/uL (3.85-5.65); White Blood Count 11.68 10^3/uL (3.29-11.43)
[2025-05-19 04:29] LABS: NT Pro B Type Natriuretic Pept 6874 pg/mL (0-125)
[2025-05-19 04:33] LABS: Alanine Aminotransferase 11 U/L (0-41); Albumin Level 2.7 g/dL (3.5-5.2); Alkaline Phosphatase 107 U/L (40-130); Anion Gap 13.3 (5-19); Aspartate Amino Transferase 14 U/L (0-40); Blood Urea Nitrogen 23 mg/dL (8-23); Calcium 8.3 mg/dL (8.5-10.5); Carbon Dioxide 35 mmol/L (22-29); Chloride 101 mmol/L (98-107); Creatinine Clr Calc Pharmacy 95.8944; Globulin 4.4 g/dL (1.3-4.6); Glucose 112 mg/dL (65-115); Magnesium 2.5 mg/dL (1.7-2.3); Osmolality Calculated 304 mOsm/kg (285-295); Potassium 4.3 mmol/L (3.5-5.1); Sodium 145 mmol/L (136-145); Total Protein 7.1 g/dL (6.6-8.7)
[2025-05-19] MEDS: sucralfate 1 gm/10 mL Oral Liq UDC PO ×4 (04:40→23:11)
[2025-05-19 05:08] LABS: Hemoglobin 6.50 g/dL (11.27-16.99)
[2025-05-19] MEDS: methylPREDNISolone sod succ 40 mg/mL INJ IVP ×2 (08:18→17:07)
[2025-05-19] MEDS: piperacillin-tazobactam 3.375 GM in sodium chloride 0.9% (plus) 50 ML IV ×3 (08:18→23:29)
--- NOTE | 2025-05-19 09:35 | PM.CONSULT ---
Providers/Reason For Consult Consulting Physician/Specialty*: Dr Stafford, interventional cardiology Reason for Consult*: IVC filter Requesting Physician: Dr Duncan Attending Physician: Vijay Duncan MD Primary Care Provider: Otilio Huang History of Present Illness History of Present Illness Edson Jaffe is a 74 year old male with past medical history of PE, GI bleed, anemia, hypertension, systolic CHF, atrial fibrillation, CAD with PCI in January. He has been admitted multiple times over the last 2 months, had GI bleed in March at which time Eliquis was discontinued but reinstated at the beginning of April due to readmission with bilateral pulmonary embolism and DVT. He was readmitted last week with GI bleed, EGD did not reveal a bleeding source and colonoscopy was refused. At that time Eliquis was reduced to 2.5 mg twice daily. He came in yesterday with altered mental status, hypoxic with soft blood pressure and shortness of breath. He was found to have hemoglobin 6.5, covered with antibiotic for pneumonia. He is currently receiving blood transfusion. Cardiology has been requested to place IVC filter due to inability to tolerate anticoagulation long-term. Review of Systems Const: Denies: fever(s), chills, change in weight, fatigue or diaphoresis Eyes: Denies: change in vision ENMT: Denies: epistaxis Card: Denies: chest pain, palpitations, irregular heart rhythm, edema, syncope, pre-syncope, dyspnea on exertion, orthopnea or leg pain with exertion Resp: Denies: dyspnea, productive cough or wheezing GI: Denies: nausea, vomiting, hematemesis, hematochezia or melena : Denies: hematuria Musc: Denies: extremity swelling Tyrell/Lymph: Reports: easy bleeding Medications/Allergies Home Medications ?Medication ?Instructions ?Recorded ?Confirmed ?Last Taken ?Type albuterol sulfate 90 mcg/actuation 2 puff inhalation Q4H PRN 11/02/24 05/18/25 12/05/24 History aerosol inhaler Shortness Of Breath Or Wheezing aluminum-mag hydroxide-simethicone 30 ml PO Q2H PRN 11/02/24 05/18/25 04/05/25 History 400 mg-400 mg-40 mg/5 mL oral susp indigeston/heartburn/gas (Mylanta Maximum Strength) bisacodyl 10 mg rectal suppository 10 mg MO .Q72H PRN Constipation 11/02/24 05/18/25 Unknown History docusate sodium 100 mg capsule 100 mg PO BID 11/02/24 05/18/25 05/17/25 History (Colace) ergocalciferol (vitamin D2) 1,250 50,000 mcg PO Q30D 11/02/24 05/18/25 03/28/25 History mcg (50,000 unit) capsule fluticasone fur. 200 mcg-umeclid 1 inh inhalation DAILY 11/02/24 05/18/25 05/17/25 History 62.5 mcg-vilant 25 mcg inhalat.powder (Trelegy Ellipta) magnesium hydroxide 400 mg/5 mL 30 ml PO DAILY PRN Constipation 11/02/24 05/18/25 02/25/25 08:30 History oral suspension (Milk of Magnesia) multivitamin 1 tab PO QAM 11/02/24 05/18/25 05/17/25 History polyethylene glycol 3350 17 17 g PO DAILY PRN bowel management 11/02/24 05/18/25 11/20/24 History gram/dose oral powder (Miralax) sennosides 8.6 mg tablet (senna) 8.6 mg PO DAILY PRN Constipation 11/02/24 05/18/25 02/09/25 History Right cockup splint #1 ea 11/28/24 05/18/25 Unknown Rx acetaminophen 325 mg tablet 650 mg PO Q4H PRN elevated 12/06/24 05/18/25 01/30/25 History (Tylenol) temp/pain loperamide 2 mg tablet (Imodium 2 mg PO Q6H PRN Diarrhea 01/28/25 05/18/25 05/13/25 19:15 History A-D) oxycodone-acetaminophen 10 mg-325 1 tab PO Q6H PRN Pain 01/28/25 05/18/25 05/16/25 History mg tablet albuterol sulfate 2.5 mg/3 mL 2.5 mg continuous nebulization 03/05/25 05/18/25 03/04/25 11:40 History (0.083 %) solution for nebulization .TID PRN Shortness Of Breath atorvastatin 40 mg tablet 40 mg PO QPM 07/05/2205/18/25 05/17/25 History clopidogrel 75 mg tablet 75 mg PO DAILY 03/05/25 05/18/25 05/17/25 History melatonin 3 mg tablet 6 mg PO BEDTIME PRN Insomnia 03/05/25 05/18/25 05/13/25 21:35 History nitroglycerin 0.4 mg sublingual See Rx Instructions .Route .COMPLEX 03/05/25 05/18/25 Unknown History tablet triamcinolone acetonide 0.5 % See Rx Instructions .Route .COMPLEX 03/05/25 05/18/25 05/18/25 History topical cream empagliflozin 10 mg tablet 10 mg PO DAILY 04/06/25 05/18/25 05/17/25 History (Jardiance) fluoxetine 20 mg capsule 20 mg PO DAILY 04/06/25 05/18/25 05/17/25 History gabapentin 300 mg capsule 300 mg PO BID 04/06/25 05/18/25 05/17/25 History levothyroxine 50 mcg tablet 50 mcg PO DAILY 04/06/25 05/18/25 05/17/25 History potassium chloride 10 mEq 10 meq PO DAILY 04/06/25 05/18/25 05/17/25 History tablet,extended release(part/cryst) metoprolol tartrate 25 mg tablet 12.5 mg PO DAILY 05/04/25 05/18/25 05/17/25 History semaglutide 1 mg/dose (4 mg/3 mL) 1 mg SUBCUT Q7D 05/04/25 05/18/25 04/28/25 History subcutaneous pen injector (Ozempic) bumetanide 2 mg tablet 2 mg PO BID 05/14/25 05/18/25 05/17/25 History buspirone 5 mg tablet 5 mg PO BID anxiety 05/14/25 05/18/25 05/17/25 History apixaban 5 mg tablet (Eliquis) 2.5 mg (1/2 x 5 mg) PO 05/15/25 05/18/25 05/17/25 Rx BID@0900,2100 60 days #60 tabs fluoxetine 10 mg tablet 10 mg PO DAILY 05/18/25 05/18/25 05/17/25 History pantoprazole 40 mg tablet,delayed See Rx Instructions .Route .COMPLEX 05/18/25 05/18/25 05/17/25 History release sucralfate 100 mg/mL oral See Rx Instructions .Route .COMPLEX 05/18/25 05/18/25 05/17/25 History suspension Allergies Allergy/AdvReac Type Severity Reaction Status Date / Time broccoli Allergy ADR-Vomitin Verified 04/24/25 07:51 g Current Medications Generic Name Dose Route Start Last Admin Trade Name Devynq PRN Reason Stop Dose Admin Albuterol/Ipratropium 3 ml 05/18/25 12:00 05/19/25 07:35 Ipratropium-Albuterol 3 Ml Neb INHALATION 3 ml Q4H.RESPIRATORY HARJINDER Administration Atorvastatin Calcium 40 mg 05/18/25 18:00 05/18/25 18:22 Atorvastatin 40 Mg Tablet PO 40 mg QPM HARJINDER Administration Budesonide 0.5 mg 05/18/25 20:00 05/19/25 07:35 Budesonide 0.5 Mg/2 Ml Neb INHALATION 0.5 mg BID.RESPIRATORY HARJINDER Administration Buspirone HCl 5 mg 05/18/25 18:00 05/19/25 08:17 Buspirone 10 Mg Tablet PO 5 mg BID HARJINDER Administration Clopidogrel Bisulfate 75 mg 05/19/25 09:00 05/19/25 08:17 Clopidogrel 75 Mg Tablet PO 75 mg DAILY HARJINDER Administration Enoxaparin Sodium 140 mg 05/18/25 11:30 05/18/25 23:38 Enoxaparin 150 Mg/Ml Syringe SUBCUT 140 mg Q12H HARJINDER Administration Fluoxetine HCl 20 mg 05/19/25 09:00 05/19/25 08:18 Fluoxetine 20 Mg Capsule PO 20 mg DAILY HARJINDER Administration Fluoxetine HCl 10 mg 05/19/25 09:00 05/19/25 08:18 Fluoxetine 10 Mg Capsule PO 10 mg DAILY HARJINDER Administration Gabapentin 300 mg 05/18/25 18:00 05/19/25 08:18 Gabapentin 300 Mg Capsule PO 300 mg BID HARJINDER Administration Piperacillin Sod/Tazobactam 50 mls @ 12.5 mls/hr 05/18/25 15:00 05/19/25 08:18 Sod 3.375 gm/ Sodium Chloride IV 12.5 mls/hr Q8H HARJINDER Administration Vancomycin HCl 1,750 mg in 350 mls @ 175 mls/hr 05/18/25 15:30 05/18/25 18:18 Vancocin IV Infused Q24H HARJINDER Infusion Insulin Human Lispro 0 unit 05/18/25 12:00 05/19/25 07:48 Insulin Lispro 100 Unit/1 Ml SUBCUT Not Given WM&BEDTIME HARJINDER Protocol Levothyroxine Sodium 50 mcg 05/19/25 09:00 05/19/25 08:18 Levothyroxine 50 Mcg Tablet PO 50 mcg DAILY HARJINDER Administration Methylprednisolone Sodium Succinate 40 mg 05/19/25 09:00 05/19/25 08:18 Methylprednisolone Sod Succ 40 Mg/Ml Inj IVP 40 mg Q8H HARJINDER Administration Oxycodone/Acetaminophen 1 tab 05/18/25 10:58 05/18/25 23:40 Oxycodone-Apap 10-325 Mg Tablet PO 1 tab Q6H PRN Administration PAIN Pantoprazole Sodium 40 mg 05/18/25 11:00 05/18/25 23:38 Pantoprazole 40 Mg Sdv IVP 40 mg Q12H HARJINDER Administration Sucralfate 1 gm 05/18/25 11:15 05/19/25 04:40 Sucralfate 1 Gm/10 Ml Oral Liq Udc PO 1 gm Q6H HARJINDER Administration PFSH Acute PFSH: Medical History Pulmonary embolism UTI (urinary tract infection) Dvt femoral (deep venous thrombosis) Bilateral Acute respiratory failure with hypoxia and hypercarbia Anemia Acute on chronic HFrEF (heart failure with reduced ejection fraction) Morbid obesity with BMI of 40.0-44.9, adult NSTEMI (non-ST elevated myocardial infarction) 02/12/2025 Congestive heart failure Atrial fibrillation CKD (chronic kidney disease) History of deep vein thrombosis DNR (do not resuscitate) residential resident COPD with acute exacerbation Open wound of right lower leg Open wound of left lower leg Pressure ulcer of right buttock, stage 3 Social History Smoking and tobacco/nicotine status: former use of tobacco/nicotine Quit status (tobacco/nicotine): has quit using Year quit tobacco: 2022 Alcohol intake: former Year of sobriety/quit date alcohol: 2021 Substance/Drug Use: never Additional social history: Patient lives in a fdc he wants DO NOT RESUSCITATE status as discussed with Cole Sheriff MD on 05/14/2025. His sister Bita Jean-Baptiste phone #[phone] is his next of kin. 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 [employer] Vitals/I&O/Wt Last Vital Signs Temp 98.3 F 05/19/25 08:46 Pulse 71 05/19/25 08:46 Resp 22 H 05/19/25 08:46 BP 100/52 05/19/25 08:46 Pulse Ox 97 05/19/25 08:46 O2 Del Method Nasal Cannula 05/19/25 07:28 O2 Flow Rate 3 05/19/25 07:28 FiO2 35 05/19/25 03:04 05/18/25 05/19/25 05/19/25 22:59 06:59 14:59 Intake Total 560 / 2040 1420 / 2040 350 / 350 Output Total 450 / 800 350 / 800 Balance 110 / 1240 1070 / 1240 350 / 350 Weight last 48 hrs Weight 293 lb 3.437 oz Weight 303 lb Weight 300 lb Physical Exam Const: COMMON NORMALS: no acute distress and patient oriented x3 GENERAL APPEARANCE: cooperative and comfortable ORIENTATION/CONSCIOUSNESS: Yes awake, Yes oriented to person, Yes oriented to place and Yes oriented to time Chest: COMMONS NORMALS: normal inspection of the chest and normal palpation of entire chest wall CHEST: Yes Symmetrical chest wall rise Resp: COMMON NORMALS: normal respiratory effort, No retractions, No use of accessory muscles and clear to auscultation bilaterally EFFORT & INSPECTION: Yes symmetric chest movement AUSCULTATION: clear to auscultation bilaterally Cardio: COMMON NORMALS: regular rate, regular rhythm, S1 normal heart sound present, S2 normal heart sound present, No gallops present (Cardio), No clicks present (Cardio), No murmurs present (Cardio) and No rub (Cardio) RATE: regular rate RHYTHM: regular rhythm HEART SOUNDS: S1 normal heart sound present and S2 normal heart sound present PERIPHERAL PULSES: radial pulses present Extremity: COMMON NORMALS: no pedal edema Neuro: COMMON NORMALS: patient oriented x3 and moves all extremities SENSORIUM/ORIENTATION: Yes oriented to person, Yes oriented to place and Yes oriented to time Urinary Catheter Management: Robertson: Cath Placed During This Visit: yes Urethral Indwelling: Yes Reason for Continuing Indwelling Catheter: Accurate Measurement of Urinary Output in Critically Ill Patients Urinary Catheter Date of Insertion: 05/18/25 Urinary Catheter Time of Insertion: 12:56 Data 05/20/25 03:02 05/20/25 03:02 Micro: Microbiology 05/18/25 08:36 Blood Culture - Preliminary Blood NEGATIVE TO DATE 05/18/25 08:37 Blood Culture - Preliminary Blood NEGATIVE TO DATE 05/18/25 10:58 Gram Stain - Final Groin A&P Assessment and plan 1. Pulmonary embolism: 2. Coronary artery disease: 3. Atrial fibrillation: 4. Congestive heart failure: 5. Acute blood loss anemia: Plan: No bleeding source has been found however he has recurrent significant anemia, hemoglobin 6.5 today. He meets indications for IVC filter placement, this has been discussed with the patient and he is willing to proceed. Will plan for procedure this morning. N.p.o. for now. Continue Plavix, statin, Lovenox. He appears euvolemic, LVEF 35 to 40%. PDMP PDMP Reviewed: Not Reviewed Coding Level of Care Code Acute Code for [facility] Diagnoses Pulmonary embolism I26.99 Coronary artery disease I25.10 Atrial fibrillation I48.91 Congestive heart failure I50.9 Acute blood loss anemia D62
[2025-05-19] MEDS: pantoprazole 40 mg SDV IVP ×2 (10:53→23:11)
--- NOTE | 2025-05-19 13:47 | W.PM.OPSUD ---
Surgery/Procedure H&P Update DATE OF PROCEDURE: May 19, 2025 DATE H&P PERFORMED: 05/19/25 H&P UPDATE INFORMATION: I have reviewed H&P completed within last 30 days, I have examined patient prior to procedure and No changes to prior documentation PREOP DIAGNOSIS: DVT/ Severe anemia PRIMARY INDICATION FOR PROCEDURE: Extensive DVT/severe anemia PLANNED PROCEDURE: IVC filter placement PATIENT REASSESSED PRIOR TO SEDATION, WITH NO CHANGE NOTED: Yes PHYSICAL EXAM: alert, oriented x 3, clear to auscultation bilaterally and regular rate & rhythm AIRWAY EVAL/ANESTHESIA PLAN: normal airway, ASA III, Local Anesthesia, Risks, benefits & alternatives of sedation and/or procedure discussed and Patient agrees to continue as planned ADDITIONAL INFORMATION: Moderate sedation
--- NOTE | 2025-05-19 14:05 | PC.SOCIAL ---
*IMM* Patient received copy of IMM. Dated and initialed and placed in chart.
--- NOTE | 2025-05-19 14:10 | PC.NURSE ---
Verbal orders given per label tacker team to pull femoral sheath at 1900 05/19
--- NOTE | 2025-05-19 14:13 | PM.PROC ---
Procedure Note: Date of procedure: 05/19/25 Pre-procedure diagnosis: Extensive bilateral DVT/severe anemia Post-procedure diagnosis: other (Successful IVC filter placement) Procedure: Using ultrasound guidance we obtained access in right common femoral vein. IVC venogram was performed to identify renal veins. Under fluoroscopic guidance, we placed a [place] IVC filter. 8 Hebrew sheath was sutured in place for removal later. Performing Provider: Kaz Stafford Estimated blood loss (mL): 5 Complications: None Condition: stable Disposition: ICU Coding Level of Care Code Acute Code for [facility]
[2025-05-19] MEDS: vancomycin 1,750 MG/350 ML PIGGYBACK 175 MG IV (15:02)
--- NOTE | 2025-05-19 15:30 | P.PN_ITS ---
Subjective 2 Subjective: - Patient was seen this morning - Currently alert oriented x 3, followin g commands - Does report shortness of breath, no ch est pain, abdominal pain - Discussed his low hemoglobin overnight currently receiving 1 unit PRBC - Discussed his last hospitalizations al so requiring blood, status post EGD he does not want to undergo colonoscopy, he is on blood thinners for history of bilateral lower extremity DVT, and bilateral pulmonary embolism discovered on 05/04/2025 - Discussed risks and benefits of antico agulant therapy, morbidity mortality associate with GI bleeds, anemia - Discussed options are available includ ing holding blood thinners versus IVC filter - Discussed risk and benefits of each op tion - After discussing risk benefits of IVC filter, Edson voiced understanding, all questions answered, shared decision making, agreed to proceed - Spoke to cardiology about IVC filter p lacement for GI bleed, in the background of recurrent hospitalization for acute anemia requiring blood transfusion, in the background of bilateral trigger DVT and bilateral PEs recently diagnosed 05/03-02/2025 Vitals/I&O/Wt Last Vital Signs Temp 97.6 F 05/19/25 12:30 Pulse 67 05/19/25 14:29 Resp 19 H 05/19/25 14:29 BP 107/55 05/19/25 12:30 Pulse Ox 97 05/19/25 14:29 O2 Del Method Nasal Cannula 05/19/25 14:29 O2 Flow Rate 3 05/19/25 14:29 FiO2 35 05/19/25 03:04 05/19/25 05/19/25 05/19/25 06:59 14:59 22:59 Intake Total 1420 / 2040 750 / 750 Output Total 350 / 800 Balance 1070 / 1240 750 / 750 Weight last 48 hrs Weight 133 kg Weight 137.438 kg Weight 136.078 kg Physical Exam 2 Const: COMMON NORMALS: no acute distress and patient oriented x3 Resp: COMMON NORMALS: normal respiratory effort, No retractions and No use of accessory muscles AUSCULTATION: crackles and wheezes Cardio: COMMON NORMALS: regular rate, regular rhythm, S1 normal heart sound present and S2 normal heart sound present RATE: regular rate RHYTHM: r egular rhythm HEART SOUNDS: S1 normal heart sound present and S2 normal heart sound present GI: COMMON NORMALS: Normal to inspection, nondistended, normoactive bowel sounds present and non-tender Extremity: COMMON NORMALS: no pedal edema Neuro: COMMON NORMALS: patient oriented x3, CN's II-XII intact bilaterally and moves all extremities Psych: COMMON NORMALS: mental status grossly normal Urinary Catheter Management: Robertson: Cath Placed During This Visit: yes Urethral Indwelling: Yes Reason for Continuing Indwelling Catheter: Accurate Measurement of Urinary Output in Critically Ill Patients Urinary Catheter Date of Insertion: 05/18/25 Urinary Catheter Time of Insertion: 12:56 Data 05/19/25 03:30 05/19/25 03:30 Micro: Microbiology 05/18/25 10:58 Gram Stain - Final Groin Wound Culture - Preliminary Gram Negative Rods 05/18/25 08:17 Urine Culture - Preliminary Urine,Clean Catch Strep species, gamma-hemolytic 05/18/25 08:36 Blood Culture - Preliminary Blood NEGATIVE TO DATE 05/18/25 08:37 Blood Culture - Preliminary Blood NEGATIVE TO DATE A&P Assessment and plan 1. Congestive heart failure: 2. Coronary artery disease: 3. Chronic anticoagulation: 4. Pulmonary embolism: 5. Chronic hypoxemic respiratory failure: 6. Chronic indwelling Robertson catheter: 7. Morbid obesity with BMI of 40.0-44.9, adult: Plan: Acute hypoxic hypercarbic respiratory failure - Secondary to COPD exacerbation - Secondary to pneumonia Healthcare associated given recent hospitalizations -Component of systolic and diastolic CHF Plan -Monitor in the ICU closely - Add Solu-Medrol 40 mg IV every 8 hours - Will cover for healthcare associate pneumonia vancomycin, and Zosyn - Hold off on diuretics for now - Monitor respiratory status closely on BiPAP - DuoNeb - Budesonide History of bilateral pulmonary embolism, and bilateral extremity DVT CTA of the chest 05/03/2025 CT/CT angio chest PE protcl [id number] IMPRESSION: 1. Subsegmental pulmonary emboli in the lower lobes bilaterally. There is no right heart strain. 2. Left pleural effusion with left basal atelectasis. 3. There are a few scattered bilateral pulmonary nodules measuring less than 6 mm. For patients at low risk (minimal or absent history of smoking and of other known risk factors), no routine follow-up is indicated. For patients at high risk (history of smoking or of other known risk factors), consider optional CT Chest at 12 months (Reference: Kwesi). 4. Moderate coronary arterial calcification, indicating the presence of coronary artery disease. If the patient has associated symptoms recommend management as per chest pain guidelines. If the patient is asymptomatic consider reviewing modifiable cardiovascular risk factors and managing as per guidelines for primary prevention Bilateral lower extremity venous ultrasound 05/04/2025 US/CV venous duplex [place] [id number] IMPRESSION: 1. Proximal right femoral vein deep venous thrombosis. 2. Deep venous thrombosis involving the proximal, mid and distal left femoral vein. -Chronically on Eliquis and dose was recently reduced to 2.5 mg twice daily, currently on therapeutic Lovenox Acute on chronic anemia - During his last hospitalization he had a EGD, declined colonoscopy - Status post 3 units PRBC during his last hospitalization - Hemoglobin 6.5 - Transfuse 1 unit PRBC - Does have a history of CAD will recheck this afternoon - Goal hemoglobin is around 8 - After discussing the risks and benefits of all options, patient agrees to IVC filter placement - Discontinue anticoagulant therapy - Given patient's CAD, PCI will likely need aspirin and Plavix Pneumonia - COVID panel within normal limits - Sputum culture UTI - History of Proteus ESBL infection - CT scan abdomen no acute findings - Culture pending - Zosyn Sepsis - Secondary to pneumonia and urinary tract infection - Monitor blood pressures closely - Maintain MAP in the 65 - Levophed to maintain MAP below 65 if required - Has received sepsis bolus in the emergency room Lactic acidosis likely secondary to sepsis History of CAD - Recent history of coronary intervention at [facility] in 2024 on Plavix - Serial EKGs, serial troponins History of systolic diastolic CHF CONCLUSIONS Moderately increased left ventricular cavity size. Moderate to Severely decreased left ventricular systolic function. Left ventricular ejection fraction is estimated at 35-40 %. Global left ventricular hypokinesis. Grade I/IV diastolic dysfunction (abnormal relaxation filling pattern), normal to mildly elevated filling pressures. Moderate aortic valve calcification. Moderate aortic valve stenosis, mean gradient 14.2 mmHg, ANUEL 1.2 cm squared. Trace aortic valve regurgitation. There is no pericardial effusion. Right atrial pressure is around 5 mm of mercury. Acute encephalopathy - Multifactorial from UTI, pneumonia, hypercarbia, sepsis - Keep n.p.o. - Neurochecks Acute on chronic anemia - History of GI bleed -Recent history of EGD - Protonix, Carafate History of atrial fibrillation, history of bilateral pulm embolism - Switch to therapeutic Lovenox, currently discontinued Full code Lovenox for DVT prophylaxis PDMP PDMP Reviewed: Not Reviewed Attestations 2 Medical Necessity Statement*: Patient requires hospitalization for acute on chronic anemia requiring RBC Pelto), requiring 1 unit PBC, history of GI bleeds, pneumonia, respiratory failure, sepsis Diagnoses Congestive heart failure I50.9 Coronary artery disease I25.10 Chronic anticoagulation Z79.01 Pulmonary embolism I26.99 Chronic hypoxemic respiratory failure J96.11 Chronic indwelling Robertson catheter Z97.8 Morbid obesity with BMI of 40.0-44.9, adult E66.01; Z68.41
[2025-05-19 16:10] LABS: Hematocrit 27.8 % (37-53); Hemoglobin 7.90 g/dL (11.27-16.99)
--- NOTE | 2025-05-19 20:16 | PC.NURSE ---
Sheath removal: Right femoral sheath removed at 1939, no hematoma at start, dressing dry and intact. Upon removal sheath tip intact, pressure held for 20 min, no bleeding, no hematoma formation, covered with dry gauze and tegaderm. Pt tolerated well. Remains at 15 degrees, educated on laying flat, to call for assistance if bleeding occurs or he feels wetness and if he develops back pain. Pedal pulses present, denies any paresthesias.
[2025-05-20] VITALS (102 sets, daily range): BP systolic 89–133; BP diastolic 45–92; PULSE 59–84; RESP 13–30; TEMP 36.3–36.7; O2SAT 80–99
[2025-05-20] MEDS: methylPREDNISolone sod succ 40 mg/mL INJ IVP ×3 (00:58→16:51)
[2025-05-20 03:49] LABS: Hematocrit 29.3 % (37-53); Hemoglobin 8.10 g/dL (11.27-16.99); Mean Corpuscular HGB Conc 27.6 g/dL (30-55); Mean Corpuscular Hemoglobin 26.1 pg (27-33); Mean Corpuscular Volume 94.5 fl (82-101); Nucleated Red Blood Cells % 0.7 %; Platelet Count 411 10^3/cmm (157-399); Red Blood Count 3.10 10^6/uL (3.85-5.65); White Blood Count 8.59 10^3/uL (3.29-11.43)
[2025-05-20 04:20] LABS: Alanine Aminotransferase 10 U/L (0-41); Albumin Level 2.8 g/dL (3.5-5.2); Alkaline Phosphatase 106 U/L (40-130); Anion Gap 12.9 (5-19); Aspartate Amino Transferase 11 U/L (0-40); Blood Urea Nitrogen 24 mg/dL (8-23); Calcium 8.4 mg/dL (8.5-10.5); Carbon Dioxide 32 mmol/L (22-29); Chloride 101 mmol/L (98-107); Creatinine Clr Calc Pharmacy 104.6864; Globulin 5.4 g/dL (1.3-4.6); Glucose 134 mg/dL (65-115); Magnesium 2.7 mg/dL (1.7-2.3); Osmolality Calculated 298 mOsm/kg (285-295); Potassium 4.9 mmol/L (3.5-5.1); Sodium 141 mmol/L (136-145); Total Protein 8.2 g/dL (6.6-8.7)
[2025-05-20] MEDS: sucralfate 1 gm/10 mL Oral Liq UDC PO ×4 (05:04→23:36)
[2025-05-20 05:22] LABS: Bacillus cereus group Not Detected (NOT DETECT); Bacillus subtillis group Not Detected (NOT DETECT); Corynebacterium Not Detected (NOT DETECT); Cutibacterium acnes (P.acnes) Not Detected (NOT DETECT); Enterococcus faecalis Not Detected (NOT DETECT); Enterococcus faecium Not Detected (NOT DETECT); Listeria Not Detected (NOT DETECT); Micrococcus Not Detected (NOT DETECT); Pan Candida Not Detected (NOT DETECT); Pan Gram-Negative Not Detected (NOT DETECT); Staphylococcus epidermidis Not Detected (NOT DETECT); Staphylococcus lugdunensis Not Detected (NOT DETECT); Staphylococcus species Not Detected (NOT DETECT); Streptococcus anginosus group Not Detected (NOT DETECT); Streptococcus pyogenes Not Detected (NOT DETECT); Streptococcus species Not Detected (NOT DETECT)
[2025-05-20] MEDS: piperacillin-tazobactam 3.375 GM in sodium chloride 0.9% (plus) 50 ML IV ×2 (06:30→14:51)
--- NOTE | 2025-05-20 09:05 | P.PN_ITS ---
Subjective 2 Subjective: He had IVC filter placed yesterday, no complications with right femoral cath site. No events overnight. Vitals/I&O/Wt Last Vital Signs Temp 98.0 F 05/20/25 08:15 Pulse 73 05/20/25 08:17 Resp 20 H 05/20/25 08:15 BP 115/66 05/20/25 08:15 Pulse Ox 98 05/20/25 08:15 O2 Del Method Nasal Cannula 05/20/25 08:00 O2 Flow Rate 3 05/20/25 08:00 FiO2 35 05/19/25 15:51 05/19/25 05/20/25 05/20/25 22:59 06:59 14:59 Intake Total 650 / 1450 50 / 1450 1379.167 / 1379.167 Output Total 660 / 810 150 / 810 Balance -10 / 640 -100 / 640 1379.167 / 1379.167 Weight last 48 hrs Weight 304 lb 3.806 oz Weight 298 lb 3.806 oz Weight 293 lb 3.437 oz Physical Exam 2 Const: COMMON NORMALS: no acute distress and patient oriented x3 GENERAL APPEARANCE: cooperative ORIENTATION/CONSCIOUSNESS: Yes awake, Yes oriented to person, Yes oriented to place and Yes oriented to time Chest: COMMONS NORMALS: normal inspection of the chest and normal palpation of entire chest wall CHEST: Yes Symmetrical chest wall rise Resp: COMMON NORMALS: normal respiratory effort, No retractions, No use of accessory muscles and clear to auscultation bilaterally AUSCULTATION: clear to auscultation bilaterally and diminished lung sounds bilateral in the lower lung portillo Cardio: COMMON NORMALS: regular rate, regular rhythm, S1 normal heart sound present, S2 normal heart sound present, No gallops present (Cardio), No clicks present (Cardio), No murmurs present (Cardio) and No rub (Cardio) RATE: r egular rate RHYTHM: regular rhythm HEART SOUNDS: S1 normal heart sound present and S2 normal heart sound present PERIPHERAL PULSES: radial pulses present positive right 2+ and femoral pulses present positive right 2+ Neuro: COMMON NORMALS: patient oriented x3 and moves all extremities S ENSORIUM/ORIENTATION: Yes oriented to person, Yes oriented to place and Yes oriented to time Skin: WOUNDS: Yes surgical site (no hematoma palpable) Details: no odor Urinary Catheter Management: Robertson: Cath Placed During This Visit: yes Urethral Indwelling: Yes Reason for Continuing Indwelling Catheter: Accurate Measurement of Urinary Output in Critically Ill Patients Urinary Catheter Date of Insertion: 05/18/25 Urinary Catheter Time of Insertion: 12:56 Data 05/20/25 03:02 05/20/25 03:02 Micro: Microbiology 05/18/25 08:36 Blood Culture - Preliminary Blood 05/18/25 10:58 Gram Stain - Final Groin Wound Culture - Preliminary Gram Negative Rods 05/18/25 08:17 Urine Culture - Preliminary Urine,Clean Catch Strep species, gamma-hemolytic 05/18/25 08:37 Blood Culture - Preliminary Blood NEGATIVE TO DATE A&P Assessment and plan 1. Pulmonary embolism: 2. Atrial fibrillation: 3. Coronary artery disease: 4. Morbid obesity with BMI of 40.0-44.9, adult: 5. Iron deficiency anemia: 6. Acute blood loss anemia: Plan: Doing well post IVC filter placement. No complications with right femoral cath site. Continue aspirin, Plavix. He appears euvolemic. PDMP PDMP Reviewed: Not Reviewed Attestations 2 Medical Necessity Statement*: per hospitalist Coding Level of Care Code Acute Code for [facility] Fwd Diagnoses Pulmonary embolism I26.99 Atrial fibrillation I48.91 Coronary artery disease I25.10 Morbid obesity with BMI of 40.0-44.9, adult E66.01; Z68.41 Iron deficiency anemia D50.9 Acute blood loss anemia D62
[2025-05-20] MEDS: pantoprazole 40 mg SDV IVP ×2 (10:38→23:35)
[2025-05-20] MEDS: vancomycin 1,750 MG/350 ML PIGGYBACK 175 MG IV (14:52)
--- NOTE | 2025-05-20 17:00 | PM.PN ---
Subjective Subjective: Patient was seen this morning, currently alert oriented x 3, following commands no fevers, chills, cough, no lightheadedness, no dizziness Vitals/I&O/Wt Last Vital Signs Temp 98.0 F 05/20/25 08:15 Pulse 63 05/20/25 16:30 Resp 21 H 05/20/25 16:30 BP 119/67 05/20/25 16:30 Pulse Ox 99 05/20/25 16:30 O2 Del Method Nasal Cannula 05/20/25 15:00 O2 Flow Rate 3 05/20/25 15:00 FiO2 35 05/19/25 15:51 05/20/25 05/20/25 05/20/25 06:59 14:59 22:59 Intake Total 50 / 1450 1619.167 / 1619.167 350 / 1969.167 Output Total 150 / 810 500 / 500 Balance -100 / 640 1619.167 / 1619.167 -150 / 1469.167 Weight last 48 hrs Weight 138 kg Weight 135.278 kg Weight 133 kg Physical Exam Const: COMMON NORMALS: no acute distress and patient oriented x3 Resp: COMMON NORMALS: normal respiratory effort, No retractions, No use of accessory muscles and clear to auscultation bilaterally AUSCULTATION: clear to auscultation bilaterally Cardio: COMMON NORMALS: regular rate, regular rhythm, S1 normal heart sound present and S2 normal heart sound present RATE: regular rate RHYTHM: regular rhythm HEART SOUNDS: S1 normal heart sound present and S2 normal heart sound present GI: COMMON NORMALS: Normal to inspection, nondistended, normoactive bowel sounds present and non-tender Extremity: COMMON NORMALS: no pedal edema Neuro: COMMON NORMALS: patient oriented x3 Psych: COMMON NORMALS: mental status grossly normal Urinary Catheter Management: Robertson: Cath Placed During This Visit: yes Urethral Indwelling: Yes Reason for Continuing Indwelling Catheter: Accurate Measurement of Urinary Output in Critically Ill Patients Urinary Catheter Date of Insertion: 05/18/25 Urinary Catheter Time of Insertion: 12:56 Data 05/20/25 03:02 05/20/25 03:02 Micro: Microbiology 05/18/25 10:58 Gram Stain - Final Groin Wound Culture - Preliminary Gram Negative Rods 05/18/25 08:36 Blood Culture - Preliminary Blood A&P Assessment and plan 1. Congestive heart failure: 2. Coronary artery disease: 3. Chronic anticoagulation: 4. Pulmonary embolism: 5. Chronic hypoxemic respiratory failure: 6. Chronic indwelling Robertson catheter: 7. Morbid obesity with BMI of 40.0-44.9, adult: Plan: Acute hypoxic hypercarbic respiratory failure - Secondary to COPD exacerbation - Secondary to pneumonia Healthcare associated given recent hospitalizations -Component of systolic and diastolic CHF Plan -Monitor in the ICU closely -deescalate antibiotics - Will cover for healthcare associate pneumonia vancomycin, and Zosyn - Hold off on diuretics for now - Monitor respiratory status closely on BiPAP - DuoNeb - Budesonide History of bilateral pulmonary embolism, and bilateral extremity DVT CTA of the chest 05/03/2025 CT/CT angio chest PE protcl [id number] IMPRESSION: 1. Subsegmental pulmonary emboli in the lower lobes bilaterally. There is no right heart strain. 2. Left pleural effusion with left basal atelectasis. 3. There are a few scattered bilateral pulmonary nodules measuring less than 6 mm. For patients at low risk (minimal or absent history of smoking and of other known risk factors), no routine follow-up is indicated. For patients at high risk (history of smoking or of other known risk factors), consider optional CT Chest at 12 months (Reference: [facility]). 4. Moderate coronary arterial calcification, indicating the presence of coronary artery disease. If the patient has associated symptoms recommend management as per chest pain guidelines. If the patient is asymptomatic consider reviewing modifiable cardiovascular risk factors and managing as per guidelines for primary prevention Bilateral lower extremity venous ultrasound 05/04/2025 US/[place] [id number] IMPRESSION: 1. Proximal right femoral vein deep venous thrombosis. 2. Deep venous thrombosis involving the proximal, mid and distal left femoral vein. -Chronically on Eliquis and dose was recently reduced to 2.5 mg twice daily, currently on therapeutic Lovenox, off lovenox -s/p IVC filter placement Acute on chronic anemia - During his last hospitalization he had a EGD, declined colonoscopy - Status post 4 units PRBC during his last hospitalization - Hemoglobin 8.1 - Does have a history of CAD - Goal hemoglobin is around 8 - After discussing the risks and benefits of all options, patient agrees to IVC filter placement, IVC filter placed - Discontinue anticoagulant therapy - Given patient's CAD, PCI will likely need aspirin and Plavix Pneumonia - COVID panel within normal limits - Sputum culture UTI - History of Proteus ESBL infection - CT scan abdomen no acute findings - Zosyn Sepsis - Secondary to pneumonia and urinary tract infection - Monitor blood pressures closely - Maintain MAP in the 65 - Levophed to maintain MAP below 65 if required - Has received sepsis bolus in the emergency room Lactic acidosis likely secondary to sepsis History of CAD - Recent history of coronary intervention at [facility] in 2024 on Plavix - Serial EKGs, serial troponins History of systolic diastolic CHF CONCLUSIONS Moderately increased left ventricular cavity size. Moderate to Severely decreased left ventricular systolic function. Left ventricular ejection fraction is estimated at 35-40 %. Global left ventricular hypokinesis. Grade I/IV diastolic dysfunction (abnormal relaxation filling pattern), normal to mildly elevated filling pressures. Moderate aortic valve calcification. Moderate aortic valve stenosis, mean gradient 14.2 mmHg, ANUEL 1.2 cm squared. Trace aortic valve regurgitation. There is no pericardial effusion. Right atrial pressure is around 5 mm of mercury. Acute encephalopathy - Multifactorial from UTI, pneumonia, hypercarbia, sepsis - Keep n.p.o. - Neurochecks Acute on chronic anemia - History of GI bleed -Recent history of EGD - Protonix, Carafate History of atrial fibrillation, history of bilateral pulm embolism - Switch to therapeutic Lovenox, currently discontinued Full code Lovenox for DVT prophylaxis PDMP PDMP Reviewed: Not Reviewed Attestations Medical Necessity Statement*: Patient requires hospitalization acute hypoxic respiratory failure, pneumonia, Diagnoses Congestive heart failure I50.9 Coronary artery disease I25.10 Chronic anticoagulation Z79.01 Pulmonary embolism I26.99 Chronic hypoxemic respiratory failure J96.11 Chronic indwelling Robertson catheter Z97.8 Morbid obesity with BMI of 40.0-44.9, adult E66.01; Z68.41
[2025-05-20 19:08] LABS: Hematocrit 28.1 % (37-53); Hemoglobin 7.70 g/dL (11.27-16.99)
[2025-05-20 20:28] LABS: Calcium 8.3 mg/dL (8.5-10.5)
[2025-05-21] VITALS (37 sets, daily range): BP systolic 118–138; BP diastolic 51–77; PULSE 57–88; RESP 12–23; TEMP 36.4–36.6; O2SAT 92–100
[2025-05-21 04:32] LABS: Hematocrit 29.3 % (37-53); Hemoglobin 8.00 g/dL (11.27-16.99); Mean Corpuscular HGB Conc 27.3 g/dL (30-55); Mean Corpuscular Hemoglobin 26.2 pg (27-33); Mean Corpuscular Volume 96.1 fl (82-101); Nucleated Red Blood Cells % 1.0 %; Platelet Count 400 10^3/cmm (157-399); Red Blood Count 3.05 10^6/uL (3.85-5.65); White Blood Count 9.60 10^3/uL (3.29-11.43)
[2025-05-21] MEDS: sucralfate 1 gm/10 mL Oral Liq UDC PO ×2 (04:47→11:34)
[2025-05-21 05:35] LABS: Alanine Aminotransferase 10 U/L (0-41); Albumin Level 2.9 g/dL (3.5-5.2); Alkaline Phosphatase 99 U/L (40-130); Anion Gap 13.0 (5-19); Aspartate Amino Transferase 9 U/L (0-40); Blood Urea Nitrogen 23 mg/dL (8-23); Calcium 8.6 mg/dL (8.5-10.5); Carbon Dioxide 33 mmol/L (22-29); Chloride 99 mmol/L (98-107); Creatinine Clr Calc Pharmacy 120.1333; Globulin 5.3 g/dL (1.3-4.6); Glucose 123 mg/dL (65-115); Magnesium 2.7 mg/dL (1.7-2.3); Osmolality Calculated 295 mOsm/kg (285-295); Potassium 5.0 mmol/L (3.5-5.1); Sodium 140 mmol/L (136-145); Total Protein 8.2 g/dL (6.6-8.7)
[2025-05-21] MEDS: FUROsemide 10 mg/mL SDV 4mL 40 MG IVP (09:32)
[2025-05-21] MEDS: magnesium citrate Btl 296 mL PO (09:53)
--- NOTE | 2025-05-21 09:58 | PC.SOCIAL ---
IMM Updated Updated pt on IMM. No questions voiced. Provided pt a copy. Initialed, dated, & timed copy in chart.
--- NOTE | 2025-05-21 10:51 | P.DS_ITS ---
Discharge Providers Date of Admission: 05/18/25 09:36 Date of Discharge: May 21, 2025 Attending Provider at Admission: Vijay Duncan MD Attending Provider at Discharge: Vijay Duncan MD Primary Care Provider: Otilio Huang Diagnoses at Discharge Discharge Diagnosis 1. Coronary artery disease: 2. Chronic anticoagulation: 3. Pulmonary embolism: 4. Chronic hypoxemic respiratory failure: 5. Chronic indwelling Robertson catheter: 6. Morbid obesity with BMI of 40.0-44.9, adult: Reason for Visit Reason for Visit: sob Hospital Course Hospital Course Edson Jaffe is a 74 year old male with a past medical history of pulmonary embolism, he had recent history of admission for GI bleed, acute anemia, hypertension, hyperlipidemia, history of systolic diastolic CHF, history of PCI in January 2025 [facility] in [place], on Plavix, atrial fibrillation, chronic indwelling Robertson catheter who presents [facility] due to altered mental status, shortness of breath, low blood pressures. Currently Edson is alert to person, not to place, not to time, he does not follow commands, is globally encephalopathic, on BiPAP, blood pressures MAP is around 65, and mild to moderate respiratory distress, when he is very, intercostal retractions, suprasternal retractions, tachypnea, tachycardia. No family members are at bedside. According to ER provider patient is brought in from the [facility] facility due to tachypnea. I spoke to patient's correction, according to correction, since coming from the hospital for his GI bleed, Edson has been more confused. He has been more weak, no recent falls, his dose of Eliquis has been reduced to 2.5 mg twice daily. Today nursing staff noticed that his extremities and his lips were blue, and they were not able to measure a O2 sat on him, and his blood pressures were soft, was not responding approp riately. His blood pressures did improve to normotensive, but he appeared short of breath, complained of shortness of breath so he was brought to [facility] for evaluation. He has not taken his Eliquis this morning. No reported bloody black stools. Patient was admitted to [facility] for acute hypoxic hypercarbic respiratory failure secondary to COPD, healthcare associated moderate, systolic diastolic CHF, required ICU admission, BiPAP therapy broad-spectrum antibiotic therapy, IV diuresis, IV steroids, and overall clinically monitor. Overall patient's clinical condition improved, will be discharged on p.o. antibiotics, p.o. steroids, p.o. diuresis with close follow-up with primary care provider as outpatient History of bilateral pulmonary embolism, and bilateral extremity DVT CTA of the chest 05/03/2025 CT/CT angio chest PE protcl [id number] IMPRESSION: 1. Subsegmental pulmonary emboli in the lower lobes bilaterally. There is no right heart strain. 2. Left pleural effusion with left basal atelectasis. 3. There are a few scattered bilateral pulmonary nodules measuring less than 6 mm. For patients at low risk (minimal or absent history of smoking and of other known risk factors), no routine follow-up is indicated. For patients at high risk (history of smoking or of other known risk factors), consider optional CT Chest at 12 months (Reference: Kwesi). 4. Moderate coronary arterial calcification, indicating the presence of coronary artery disease. If the patient has associated symptoms recommend management as per chest pain guidelines. If the patient is asymptomatic consider reviewing modifiable cardiovascular risk factors and managing as per guidelines for primary prevention Bilateral lower extremity venous ultrasound 05/04/2025 US/[place] [id number] IMPRESSION: 1. Proximal right femoral vein deep venous thrombosis. 2. Deep venous thrombosis involving the proximal, mid and distal left femoral vein. -Chronically on Eliquis and dose was recently reduced to 2.5 mg twice daily, currently on therapeutic Lovenox, developed acute anemia requiring 2 units PRBC, discontinue lovenox -Discussed with patient the risk of benefits of anticoagulant therapy versus IVC filter placement, agreed to IVC filter placement, IVC filter placed -s/p IVC filter placement, tolerated procedure well - Discussed with patient he can continue to develop lower extremity DVTs, but his IVC filter is in place to decrease risk of embolic phenomenon Acute on chronic anemia - During his last hospitalization he had a EGD, declined colonoscopy - Status post 3 units PRBC during his last hospitalization - Hemoglobin 6.5 -Required 1 unit PRBC - Does have a history of CAD - Goal hemoglobin is around 8 - After discussing the risks and benefits of all options, patient agrees to IVC filter placement, IVC filter placed - Discontinue anticoagulant therapy on discharge - Given patient's CAD, PCI will likely need aspirin and Plavix -Monitored on aspirin and Plavix, hemoglobin remained stable, discharged on Protonix, Carafate Wound, right groin, grew Proteus species, overall clinically improving, discharged on Augmentin Sepsis secondary to pneumonia, UTI, completed antibiotic therapy For catheter associated UTI -Patient came in with a chronic Robertson catheter -Robertson catheter will be changed on discharge -Urine cultures so far growing strep species -Follow-up with urology as outpatient Systolic CHF, required IV diuresis, discharged on p.o. antibiotics History of atrial fibrillation, cannot tolerate anticoagulant therapy due to acute anemia -Discussed at risk benefits of anticoagulant therapy, risks of CVA, risk of GI bleed, with acute anemia, he voiced understanding, all question answered, declined for now -Discharge aspirin, Plavix as above -Follow-up with cardiology 1 out of 4 blood cultures showing gram-positive species -Discussed with patient likely contamination however cannot rule out bloodstream infection -Nonetheless blood cultures are pending at discharge -Will discharge with p.o. antibiotics -Discussed with patient that if his blood culture does show evidence of bloodstream infection, he will likely require rehospitalization -Patient voiced understanding, all questions answered, agreed to proceed Physical Exam Const: COMMON NORMALS: no acute distress and patient oriented x3 Eye: COMMON NORMALS: Equal, round and reactive pupils present PUPIL: Yes Equal, round and reactive pupils present Resp: COMMON NORMALS: normal respiratory effort, No retractions, No use of accessory muscles and clear to auscultation bilaterally AUSCULTATION: clear to auscultation bilaterally Cardio: COMMON NORMALS: regular rate, regular rhythm, S1 normal heart sound present and S2 normal heart sound present RATE: regular rate RHYTHM: regular rhythm HEART SOUNDS: S1 normal heart sound present and S2 normal heart sound present GI: COMMON NORMALS: Normal to inspection, nondistended, normoactive bowel sounds present and non-tender Extremity: COMMON NORMALS: no calf tenderness and no pedal edema Neuro: COMMON NORMALS: patient oriented x3, CN's II-XII intact bilaterally and moves all extremities Psych: COMMON NORMALS: mental status grossly normal Skin: NARRATIVE SKIN EXAM: Right groin, wound area clean and dry Urinary Catheter Management: Robertson: Cath Placed During This Visit: yes Urethral Indwelling: Yes Reason for Continuing Indwelling Catheter: Accurate Measurement of Urinary Output in Critically Ill Patients Urinary Catheter Date of Insertion: 05/18/25 Urinary Catheter Time of Insertion: 12:56 Discharge Data Studies Completed and Pending Completed Studies During Hospitalization Category Date Time Status CT chest abdomen pelvis [[place] [id number] Cat Scan 05/18/25 10:51 Completed ] Stat CT head wo con* [id number] Routine Cat Scan 05/18/25 10:56 Completed XR chest 1V portable [id number] Stat Exams 05/18/25 07:46 Completed Pending at discharge Category Date Time Status 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 Cardiomegaly. 2. Underlying component of interstitial thickening or combination pulmonary venous congestion. 3. Superimposed infiltrate or atelectasis right lower lobe. 4. Likely bilateral pleural effusions greater on the left. Chest/Abdomen/Pelvis CT 05/18/25 10:51 IMPRESSION: 1. Left lower lobe consolidation/atelectasis with a moderate left pleural effusion. 2. Scattered less than 6 mm pulmonary nodules without appreciable change. 3. Mild ground-glass opacity in the right upper lobe which is nonspecific. IMPRESSION: No acute findings. Head CT 05/18/25 10:56 IMPRESSION: No acute intracranial abnormality. Laboratory Results WBC 9.60 10^3/uL (3.29-11.43) 05/21/25 04:17 RBC 3.05 10^6/uL (3.85-5.65) L 05/21/25 04:17 Hgb 8.00 g/dL (11.27-16.99) L 05/21/25 04:17 Hct 29.3 % (37-53) L 05/21/25 04:17 MCV 96.1 fl (82-101) 05/21/25 04:17 MCH 26.2 pg (27-33) L 05/21/25 04:17 MCHC 27.3 g/dL (30-55) L 05/21/25 04:17 RDW 18.5 % (12.1-15.1) H 05/21/25 04:17 Plt Count 400 10^3/cmm (157-399) H 05/21/25 04:17 MPV 10.2 fL (7.4-10.4) 05/21/25 04:17 Neut % (Auto) 87.2 % 05/21/25 04:17 Lymph % (Auto) 5.4 % 05/21/25 04:17 Hamlin % (Auto) 6.8 % 05/21/25 04:17 Eos % (Auto) 0.0 % 05/21/25 04:17 Baso % (Auto) 0.0 % 05/21/25 04:17 Neut # (Auto) 8.37 10^3/uL (1.8-7.7) H 05/21/25 04:17 Lymph # (Auto) 0.5 10^3/uL (0.8-4.8) L 05/21/25 04:17 Hamlin # (Auto) 0.7 10^3/uL (0.2-0.9) 05/21/25 04:17 Eos # (Auto) 0.0 10^3/uL (0.0-0.8) 05/21/25 04:17 Baso # (Auto) 0.0 10^3/uL (0.0-0.1) 05/21/25 04:17 Nucleated RBC % (auto) 1.0 % 05/21/25 04:17 Nucleated RBCs # 0.1 /100WBC 05/21/25 04:17 PT 14.60 SECONDS (12.1-14.9) 05/18/25 08:07 INR 1.06 (0.8-1.2) 05/18/25 08:07 APTT 26.4 SECONDS (23.9-36.7) 05/18/25 08:07 Specimen Type Arterial 05/18/25 09:22 Sample Site Radial, left 05/18/25 09:22 ABG pH 7.31 (7.35-7.45) L 05/18/25 09:22 ABG pCO2 74.6 mmHg (35-45) H* 05/18/25 09:22 ABG pO2 81.4 mmHg (80.0-100.0) 05/18/25 09:22 ABG PO2/FiO2 Ratio 180 05/18/25 09:22 ABG HCO3 37.8 mmol/L (22-26) H 05/18/25 09:22 ABG O2 Saturation 96.5 05/18/25 09:22 ABG Base Excess 10.2 mmol/L (-2.0-2.0) H 05/18/25 09:22 Ivan Test Pos 05/18/25 09:22 A-a O2 Gradient 19.5 mmHg (5-10) H 05/18/25 09:22 Hematocrit 23.6 % (42-52) L 05/18/25 09:22 Hgb O2 Saturation 93.1 % (95-100) L 05/18/25 09:22 Carboxyhemoglobin 1.8 %THgb (0.4-20.1) 05/18/25 09:22 Methemoglobin 1.6 % (0.4-1.5) H 05/18/25 09:22 Total Hemoglobin 7.7 g/dL (14-18) L 05/18/25 09:22 Sodium 145.0 mmol/L (131-143) H 05/18/25 09:22 Potassium 3.8 mmol/L (3.5-5.0) 05/18/25 09:22 Glucose 141.0 mg/dL (70-115) H 05/18/25 09:22 Ionized Calcium 1.1 mmol/L (1.1-1.4) 05/18/25 09:22 O2 Delivery Device Bipap 05/18/25 09:22 O2 Liters/Min 4.0 % 05/18/25 07:51 FiO2 45.0 % 05/18/25 09:22 Bin Piler ID Walci 05/18/25 09:22 Sodium 140 mmol/L (136-145) 05/21/25 05:15 Potassium 5.0 mmol/L (3.5-5.1) 05/21/25 05:15 Chloride 99 mmol/L (98-107) 05/21/25 05:15 Carbon Dioxide 33 mmol/L (22-29) H 05/21/25 05:15 Anion Gap 13.0 (5-19) 05/21/25 05:15 BUN 23 mg/dL (8-23) 05/21/25 05:15 Creatinine 0.8 mg/dL (0.7-1.2) 05/21/25 05:15 GFR Calculation Not Reportable 05/21/25 05:15 Glucose 123 mg/dL (65-115) H 05/21/25 05:15 POC Glucose 113 mg/dL (70-110) H 05/21/25 07:45 Calculated Osmolality 295 mOsm/kg (285-295) 05/21/25 05:15 Lactic Acid 3.9 mmol/L (0.5-2.2) H 05/18/25 08:07 Lactic Acid (Sepsis) 2.2 mmol/L (0.5-2.2) 05/18/25 10:59 Calcium 8.6 mg/dL (8.5-10.5) 05/21/25 05:15 Phosphorus 3.3 mg/dL (2.5-4.5) 05/20/25 18:49 Magnesium 2.7 mg/dL (1.7-2.3) H 05/21/25 05:15 Total Bilirubin 0.3 mg/dL (0.15-1.2) 05/21/25 05:15 AST 9 U/L (0-40) 05/21/25 05:15 ALT 10 U/L (0-41) 05/21/25 05:15 Alkaline Phosphatase 99 U/L (40-130) 05/21/25 05:15 Troponin T Baseline 79 ng/L (0-15) H 05/18/25 10:59 Troponin T 120 Minute 74.59 ng/L (0-15) H 05/18/25 12:56 Delta Troponin T -4.41 ABS# (0-10) L 05/18/25 12:56 Troponin T Hi Sens 6Hr 64.65 ng/L (0-15) H 05/18/25 16:56 Troponin T Hi Sens 6Hr Delta -14.35 ng/L (0-12) L 05/18/25 16:56 C-Reactive Protein 32.6 mg/L (0.0-4.9) H 05/18/25 10:59 NT-Pro-B Natriuret Pep 6874 pg/mL (0-125) H 05/19/25 03:30 Total Protein 8.2 g/dL (6.6-8.7) 05/21/25 05:15 Albumin 2.9 g/dL (3.5-5.2) L 05/21/25 05:15 Globulin 5.3 g/dL (1.3-4.6) H 05/21/25 05:15 Procalcitonin 0.24 ng/mL (0-0.5) 05/18/25 10:59 TSH 3.25 uIU/mL (0.27-4.20) 05/18/25 10:59 Urine Color Yellow (Yellow) 05/18/25 08:17 Urine Appearance Turbid (CLEAR) A 05/18/25 08:17 Urine pH 5.5 (5-7) 05/18/25 08:17 Ur Specific [place] 1.024 (1.005-1.030) 05/18/25 08:17 Urine Protein 2+ (Negative) A 05/18/25 08:17 Urine Glucose (UA) 2+ (Normal) H 05/18/25 08:17 Urine Ketones Trace (Negative) 05/18/25 08:17 Urine Blood 3+ (Negative) A 05/18/25 08:17 Urine Nitrate Negative (Negative) 05/18/25 08:17 Urine Bilirubin Negative (Negative) 05/18/25 08:17 Urine Urobilinogen 1.0 mg/dL (Negative) 05/18/25 08:17 Ur Leukocyte Esterase 1+ (Negative) A 05/18/25 08:17 Urine RBC >100 /hpf (0-2) H 05/18/25 08:17 Urine WBC >100 /hpf (0-5) H 05/18/25 08:17 Ur Squamous Epith Cells 6-10 /hpf (0-5) 05/18/25 08:17 Amorphous Sediment Not Reportable 05/18/25 08:17 Urine Bacteria 2+ /hpf (NONE) H 05/18/25 08:17 Hyaline Casts 218.89 /lpf 05/18/25 08:17 Fine Granular Casts 0-4 /lpf H 05/18/25 08:17 Nasal MRSA (PCR) Mrsa detected (Negative) A 05/18/25 10:58 Vancomycin Trough 20.4 ug/mL (10-15) H 05/18/25 10:59 Influenza A (PCR) Negative (Negative) 05/18/25 10:58 Influenza Type B (PCR) Negative (Negative) 05/18/25 10:58 RSV (PCR) Negative (Negative) 05/18/25 10:58 SARS-CoV-2 (PCR) Negative (Negative) 05/18/25 10:58 Blood Type O Positive 05/19/25 05:24 Rho(D) Type Rh positive 05/19/25 05:24 Antibody Screen Negative 05/19/25 05:24 Crossmatch See Detail 05/19/25 05:24 Vitals Last Vital Signs Temp 97.8 F 05/21/25 07:30 Pulse 85 05/21/25 09:00 Resp 17 05/21/25 09:00 BP 124/55 05/21/25 09:00 Pulse Ox 96 05/21/25 09:00 O2 Del Method Nasal Cannula 05/21/25 09:00 O2 Flow Rate 3 05/21/25 08:00 FiO2 35 05/21/25 03:54 Discharge Plan Discharge Patient Disposition: Xfer SNF Condition: Stable Prescriptions: New nitroglycerin 0.4 mg Tablet, Sublingual 0.4 mg sublingual Q5M PRN (Reason: Chest Pain) 30 Days Qty: 30 0RF prednisone 20 mg Tablet 40 mg PO DAILY 5 Days Qty: 10 0RF aspirin 81 mg Tablet,Delayed Release (Dr/Ec) 81 mg PO DAILY 30 Days Qty: 30 0RF amoxicillin-pot clavulanate 875-125 mg Tablet 1 tab PO BID 7 Days Qty: 14 0RF Continued albuterol sulfate 2.5 mg /3 mL (0.083 %) solution for nebulization 2.5 mg continuous nebulization .TID PRN (Reason: Shortness Of Breath) triamcinolone acetonide 0.5 % cream See Rx Instructions .ROUTE .COMPLEX Rx Instructions: 1 application topically to buttocks every shift for itching/rash. acetaminophen [Tylenol] 325 mg Tablet 650 mg PO Q4H PRN (Reason: elevated temp/pain) melatonin 3 mg Tablet 6 mg PO BEDTIME PRN (Reason: Insomnia) clopidogrel 75 mg tablet 75 mg PO DAILY nitroglycerin 0.4 mg tablet, sublingual See Rx Instructions .ROUTE .COMPLEX Rx Instructions: Give 1 tablet 0.4 sublingual every 5 minutes as needed for chest pain x3 doses if no relief call multivitamin Tablet 1 tab PO QAM sennosides [senna] 8.6 mg Tablet 8.6 mg PO DAILY PRN (Reason: Constipation) magnesium hydroxide [Milk of Magnesia] 400 mg/5 mL Suspension 30 ml PO DAILY PRN (Reason: Constipation) bisacodyl 10 mg Suppository [address]Q72H PRN (Reason: Constipation) docusate sodium [Colace] 100 mg Capsule 100 mg PO BID ergocalciferol (vitamin D2) 1,250 mcg (50,000 unit) capsule 50,000 mcg PO Q30D polyethylene glycol 3350 [Miralax] 17 gram/dose Powder 17 g PO DAILY PRN (Reason: bowel management) albuterol sulfate 90 mcg/actuation HFA aerosol inhaler 2 puff INHALATION Q4H PRN (Reason: Shortness Of Breath Or Wheezing) alum-mag hydroxide-simeth [Mylanta Maximum Strength] 400-400-40 mg/5 mL Suspension 30 ml PO Q2H PRN (Reason: indigeston/heartburn/gas) Trelegy Ellipta 200-62.5-25 mcg blister with device 1 inh INHALATION DAILY loperamide [Imodium A-D] 2 mg Tablet 2 mg PO Q6H PRN (Reason: Diarrhea) oxycodone-acetaminophen 10-325 mg tablet 1 tab PO Q6H PRN (Reason: Pain) gabapentin 300 mg capsule 300 mg PO BID levothyroxine 50 mcg tablet 50 mcg PO DAILY fluoxetine 20 mg capsule 20 mg PO DAILY Rx Instructions: along with 10mg to=30mg total potassium chloride 10 mEq tablet,ER particles/crystals 10 meq PO DAILY Jardiance 10 mg tablet 10 mg PO DAILY Ozempic 1 mg/dose (4 mg/3 mL) pen injector 1 mg SUBCUT Q7D Rx Instructions: metoprolol tartrate 25 mg Tablet 12.5 mg PO DAILY buspirone 5 mg tablet 5 mg PO BID fluoxetine 10 mg tablet 10 mg PO DAILY Rx Instructions: along with 20mg to=30mg total sucralfate 100 mg/mL suspension See Rx Instructions .ROUTE .COMPLEX Rx Instructions: Give 10 ml by mouth before meals and at bedtime. pantoprazole 40 mg tablet,delayed release (DR/EC) See Rx Instructions .ROUTE .COMPLEX Rx Instructions: Take 1 tablet by mouth twice daily for 6 weeks to end on 06/26/25, then start 1 tablet daily, thereafter. atorvastatin 40 mg tablet 40 mg PO QPM 30 Days Qty: 30 0RF Changed bumetanide 2 mg tablet 1 mg PO DAILY 30 Days Qty: 30 0RF Discontinued Eliquis 5 mg Tablet 2.5 mg PO BID@0900,2100 60 Days Qty: 60 0RF No Action (DME) Right cockup splint See Rx Instructions .Route .MEDSUPPLY Qty: 1 0RF Rx Instructions: As directed Discharge Order = DC NOW: Discharge Order (Routine); Ordered 05/21/25 Ordered By: Vijay Duncan Referrals: [facility] [Outside] Otilio Huang [Primary Care Provider, Internal Medicine] Michael Crockett MD [Referring, Urology] - 1 week Referral Note: chronic urinary retention Kaz Stafford M.D [Physician, Cardiology] - 1 month Discharge Diet: Cardiac Discharge Activity: Resume usual activity Patient Instructions: Opioid Safety, Patient Portal & Diana Instructions Activity Restrictions/Additional Instructions: - Please follow-up with cardiology in 1 month - If any shortness of breath go to the emergency room - Chronic Robertson cath in place, follow-up with urology Discharge Attestations Time Spent in Discharge Care*: greater than 30 min Status at Discharge: Cognitive status at discharge: cognitively intact , Behavioral status at discharge: cooperative , Quality Metrics Clinical Quality Measures [ No reported AMI, CVA or VTE this stay] Coding Level of Care Code 64502 Total time (in minutes) for Discharge: 45 Diagnoses Congestive heart failure I50.9 Heart failure chronicity: acute on chronic Heart failure type: unspecified Coronary artery disease I25.10 Chronic anticoagulation Z79.01 Pulmonary embolism I26.99 Chronic hypoxemic respiratory failure J96.11 Chronic indwelling Robertson catheter Z97.8 Morbid obesity with BMI of 40.0-44.9, adult E66.01; Z68.41
[2025-05-21] MEDS: pantoprazole 40 mg SDV IVP (11:34)
== END 2025-05-21 14:07 | disposition skilled nursing facility (03) | DRG 871 ==
LOC: ER 09:43 → ICU 09:49
PROVIDERS: Internal Medicine; Nurse Practitioner Family; Admitting Provider Family Medicine; Emergency Provider Emergency Medicine; PCP Student in an Organized Health Care Education/Training Program; Visit Provider Family Medicine
PROC: 06H03DZ Insertion of Intraluminal Device into Inferior Vena Cava, Percutaneous Approach (ICD-10-PCS; CPT 37191; principal; 2025-05-19 12:00)
DX: A41.9 Sepsis, unspecified organism (principal); G93.41 Metabolic encephalopathy; J96.21 Acute and chronic respiratory failure with hypoxia; J96.22 Acute and chronic respiratory failure with hypercapnia; J18.9 Pneumonia, unspecified organism; N39.0 Urinary tract infection, site not specified; Z68.41 Body mass index [BMI] 40.0-44.9, adult; I13.0 Hypertensive heart and chronic kidney disease with heart failure and stage 1 through stage 4 chronic kidney disease, or unspecified chronic kidney disease; I50.22 Chronic systolic (congestive) heart failure; J44.1 Chronic obstructive pulmonary disease with (acute) exacerbation; J44.0 Chronic obstructive pulmonary disease with (acute) lower respiratory infection; D62 Acute posthemorrhagic anemia; E87.20 Acidosis, unspecified; I25.10 Atherosclerotic heart disease of native coronary artery without angina pectoris; B95.2 Enterococcus as the cause of diseases classified elsewhere; Z96.0 Presence of urogenital implants; E66.01 Morbid (severe) obesity due to excess calories; N18.9 Chronic kidney disease, unspecified; E78.5 Hyperlipidemia, unspecified; Y95 Nosocomial condition; Z66 Do not resuscitate; Z79.899 Other long term (current) drug therapy; Z79.01 Long term (current) use of anticoagulants; Z79.51 Long term (current) use of inhaled steroids; Z79.02 Long term (current) use of antithrombotics/antiplatelets; Z86.711 Personal history of pulmonary embolism; Z95.5 Presence of coronary angioplasty implant and graft
CPT/HCPCS: 36010; 36415; 36416; 36430; 36600; 37191; 51702; 70450; 71045; 71250; 74176; 80051; 80053; 80202; 81001; 82310; 82330; 82803; 82805; 82962; 83605; 83735; 83880; 84100; 84145; 84443; 84484; 85014; 85018; 85025; 85610; 85730; 86140; 86850; 86900; 86920; 87040; 87070; 87075; 87077; 87086; 87150; 87186; 87205; 87637; 93005; 94640; 94660; 94664; 96365; 96367; 96372; 96375; 99152; 99153; 99291; C1769; C1880; C1887; C1894; J1644; J1650; J1815; J1938; J2250; J2470; J2543; J2919; J3010; J3372; J3373; J7030; J7050; J7512; J7626; J9999; P9016; Q9967

== ENCOUNTER 2025-06-01 21:19 | Inpatient (IN) | payer MEDICARE, MEDICAID, SELFPAY ==
[2025-06-01] VITALS (13 sets, daily range): BP systolic 150–166; BP diastolic 88–128; PULSE 80–153; RESP 20–32; TEMP 36.6; O2SAT 92–100
--- OUTSIDE RECORDS SUMMARY | 2025-06-01 21:36 | XMS_ITS | Encounter Summary ---
Author Organization [facility] Address [address] [place] [address] Care Team Providers Care Enterprise Integration Developer Name Role Phone Roshan Jimenez DO Primary Care Provider Unav ailable Encounter Details Date Type Department Care Team (Latest Contact Info) Description 08/05/2003 Outpatient [facility] [address] [place] [phone] Roshan Jimenez DO NO ADDRESS ON FILE HYPERTENSION NOS (Primary Dx); CHRONIC AIRWAY OBSTRUCTION NEC (CMS/HCC); UNSPECIFIED VIRAL INFECTION Social History Tobacco Use Types Packs/Day Years Used Date Smoking Tobacco: Never Assessed Sex and Gender Information Value Date Recorded Sex Assigned at Not on file 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
--- OUTSIDE RECORDS SUMMARY | 2025-06-01 21:36 | XMS_ITS | Encounter Summary ---
Author Organization [facility] Address [address] [place] [address] Care Team Providers Care Clam Digger Name Role Phone Roshan Jimenez DO Primary Care Provider Unav ailable Encounter Details Date Type Department Care Team (Latest Contact Info) Description 05/20/1998 Outpatient [facility] [phone] [place] [id number] Roshan Jimenez DO NO ADDRESS ON FILE Unspecified essential hypertension (Primary Dx); Obstructive chronic bronchitis without exacerbation (CMS/HCC); Depressive type psychosis; Abdominal pain, unspecified site Social History Tobacco Use Types Packs/Day Years Used Date Smoking Tobacco: Never Assessed Sex and Gender Information Value Date Recorded Sex Assigned at Not on file 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
--- OUTSIDE RECORDS SUMMARY | 2025-06-01 21:36 | XMS_ITS | Encounter Summary ---
Author Organization [facility] Address [address] [place] [address] Care Team Providers Care Barrel Lathe Operator Inside Name Role Phone Roshan Jimenez DO Primary Care Provider Unav ailable Encounter Details Date Type Department Care Team (Latest Contact Info) Description 04/29/2005 Outpatient Historical [facility] [address] [place] [address] [place] [id number] Merlin Reilly MD NO ADDRESS ON FILE HYPERSOMNIA W SLEEP APNEA NOS (Primary Dx) Social History Tobacco Use Types Packs/Day Years Used Date Smoking Tobacco: Never Assessed Sex and Gender Information Value Date Recorded Sex Assigned at Not on file 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
--- OUTSIDE RECORDS SUMMARY | 2025-06-01 21:36 | XMS_ITS | Encounter Summary ---
Author Organization [facility] Address [address] [place] [address] Care Team Providers Care Transmission And Protection Engineer Name Role Phone Roshan Jimenez DO Primary Care Provider Unav ailable Encounter Details Date Type Department Care Team (Latest Contact Info) Description 11/01/2006 Outpatient Historical [facility] [address] [place] [address] [place] [address] John Black MD NO ADDRESS ON FILE Pre-Operative Cardiovascular Examination (Primary Dx) Social History Tobacco Use Types Packs/Day Years Used Date Smoking Tobacco: Never Assessed Sex and Gender Information Value Date Recorded Sex Assigned at Not on file 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 Sex Male 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 Gender Identity Not on file Sexual Orientation Not on file documented as of this encounter Plan of Treatment Not on file documented as of this encounter Procedures Procedure Name Priority Date/Time Associated Diagnosis Comments COMPREHENSIVE METABOLIC PANEL Routine 11/01/2006 10:35 AM CINDER CRUSHER OPERATOR XR CHEST PA OR AP 1 VW Routine 7 10:09 AM CINDER CRUSHER OPERATOR documented in this encounter Results * (ABNORMAL) COMPREHENSIVE METABOLIC PANEL (11/01/2006 10:35 AM CINDER CRUSHER OPERATOR) GLUCOSE 99 70 - 110 mg/dL INTERFACE [...] mOsm/Kg INTERFACE SYSTEM 11/01/2006 10:3 5 AM CINDER CRUSHER OPERATOR John Black MD CHEMISTRY ORDERABLES Edited INTERFACE SYSTEM Refer to clinic/hospital department * XR CHEST PA OR AP (11/01/2006 10:09 AM CINDER CRUSHER OPERATOR) Anatomical Region Laterality Modality Chest Other 11/01/2006 10:0 9 AM CINDER CRUSHER OPERATOR Narrative 11/01/2006 10:09 AM CINDER CRUSHER OPERATOR PA CHEST: 11/01/2006Chronic appearing accentuated bronchovascular markings [...] Primary documented in this encounter Care Teams Transmission And Protection Engineer Relationship Specialty Start Date End Date Roshan Jimenez DO NO ADDRESS ON FILE PCP - General 03/26/03 documented as of this encounter
--- OUTSIDE RECORDS SUMMARY | 2025-06-01 21:36 | XMS_ITS | Encounter Summary ---
Author Organization [facility] Address [address] [place] [address] Care Team Providers Care Physical Therapy Instructor Name Role Phone Roshan Jimenez DO Primary Care Provider Unav ailable Encounter Details Date Type Department Care Team (Latest Contact Info) Description 03/26/2003 Outpatient Historical [facility] Endoscopy [place] [address] [facility] [address] [place] [address] Demetri Chávez MD [address] [facility] [address] [place] [address] SCREENING MAL NEOP-COLON (Primary Dx) Social History Tobacco Use Types Packs/Day Years Used Date Smoking Tobacco: Never Assessed Sex and Gender Information Value Date Recorded Sex Assigned at Not on file Legal Sex Male 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
--- OUTSIDE RECORDS SUMMARY | 2025-06-01 21:36 | XMS_ITS | Encounter Summary ---
Author Organization [email or web address] [facility] Address [address] [place] [address] Care Team Providers Care Communications Attendant Name Role Phone Roshan Jimenez DO Primary Care Provider Unav ailable Encounter Details Date Type Department Care Team (Latest Contact Info) Description 12/22/1999 Outpatient Historical [facility] Axel Armstrong NO ADDRESS ON FILE Localized osteoarthrosis not specified whether primary or secondary, lower leg (Primary Dx); Pain in joint, lower leg Social History Tobacco Use Types Packs/Day Years Used Date Smoking Tobacco: Never Assessed Sex and Gender Information Value Date Recorded Sex Assigned at Not on file 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
--- OUTSIDE RECORDS SUMMARY | 2025-06-01 21:36 | XMS_ITS | Encounter Summary ---
Author Organization [facility] Address [address] [place] [address] Care Team Providers Care Mva Reactor Operator Name Role Phone Roshan Jimenez DO Primary Care Provider Unav ailable Encounter Details Date Type Department Care Team (Latest Contact Info) Description 01/06/1999 Outpatient Historical [facility] Podiatry-[place] [place] [address] Noé Rosa, DPM [address] [place] [address] Ingrowing nail (Primary Dx) Social History Tobacco Use Types Packs/Day Years Used Date Smoking Tobacco: Never Assessed Sex and Gender Information Value Date Recorded Sex Assigned at Not on file 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
--- OUTSIDE RECORDS SUMMARY | 2025-06-01 21:36 | XMS_ITS | Encounter Summary ---
Author Organization [facility] Address [address] [place] [address] Care Team Providers Care Chute Puller Name Role Phone Roshan Jimenez DO Primary Care Provider Unav ailable Encounter Details Date Type Department Care Team (Latest Contact Info) Description 07/13/2005 Outpatient [facility] [address] [place] [phone] Roshan Jimenez DO NO ADDRESS ON FILE ASTHMA UNSPECIFIED (Primary Dx); CHRONIC AIRWAY OBSTRUCTION NEC (CMS/[facility]); OBESITY NOS; VACCINE FOR STREP PNEUMONIAE Social History Tobacco Use Types Packs/Day Years Used Date Smoking Tobacco: Never Assessed Sex and Gender Information Value Date Recorded Sex Assigned at Not on file Legal Sex Male 4:59 AM COMMUNICATION CLERK Gender Identity Not on file Sexual [...] (pneumococcus) documented in this encounter Care Teams Chute Puller Relationship Specialty Start Date End Date Roshan Jimenez DO NO ADDRESS ON FILE PCP - General 03/26/03 documented as of this encounter
--- OUTSIDE RECORDS SUMMARY | 2025-06-01 21:36 | XMS_ITS | Encounter Summary ---
Author Organization [facility] Address [address] [place] [address] Care Team Providers Care Shotblast Operator Name Role Phone Roshan Jimenez DO Primary Care Provider Unav ailable Encounter Details Date Type Department Care Team (Latest Contact Info) Description 03/09/2005 Outpatient Historical [facility] [address] [place] [address] [place] [address] Zofia Gleason, GLOBAL ENGINEERING MANAGER [address] [place] [address] HYPERSOMNI W SLEEP APNEA (Primary Dx) Social History Tobacco Use Types Packs/Day Years Used Date Smoking Tobacco: Never Assessed Sex and Gender Information Value Date Recorded Sex Assigned at Not on file Legal Sex Male 4:59 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
--- OUTSIDE RECORDS SUMMARY | 2025-06-01 21:36 | XMS_ITS | Encounter Summary ---
Author Organization [employer] [facility] [facility] Address [address] [place] [address] Care Team Providers Care Welder Plasma Arc Name Role Phone Roshan Jimenez DO Primary Care Provider Unav ailable Encounter Details Date Type Department Care Team (Latest Contact Info) Description 12/31/1997 Outpatient Historical [facility] Axel Armstrong NO ADDRESS ON FILE Localized osteoarthrosis not specified whether primary or secondary, lower leg (Primary Dx) Social History Tobacco Use Types Packs/Day Years Used Date Smoking Tobacco: Never Assessed Sex and Gender Information Value Date Recorded Sex Assigned at Not on file 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
--- OUTSIDE RECORDS SUMMARY | 2025-06-01 21:36 | XMS_ITS | Encounter Summary ---
Author Organization [employer] [facility] Address [address] [place] [address] Care Team Providers Care Computer Numerical Control Operator Name Role Phone Roshan Jimenez DO Primary Care Provider Unav ailable Encounter Details Date Type Department Care Team (Latest Contact Info) Description 06/24/1998 Outpatient Historical [facility] Axel Armstrong NO ADDRESS ON FILE Localized osteoarthrosis not specified whether primary or secondary, lower leg (Primary Dx) Social History Tobacco Use Types Packs/Day Years Used Date Smoking Tobacco: Never Assessed Sex and Gender Information Value Date Recorded Sex Assigned at Not on file 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
--- OUTSIDE RECORDS SUMMARY | 2025-06-01 21:36 | XMS_ITS | Encounter Summary ---
Author Organization [facility] Address [address] [place] [address] Care Team Providers Care French Pastry Cook Name Role Phone Roshan Jimenez DO Primary Care Provider Unav ailable Encounter Details Date Type Department Care Team (Latest Contact Info) Description 01/08/1999 Outpatient Historical [facility] Podiatry-[place] [place] [address] Noé Rosa, DPM [address] [place] [address] Ingrowing nail (Primary Dx) Social History Tobacco Use Types Packs/Day Years Used Date Smoking Tobacco: Never Assessed Sex and Gender Information Value Date Recorded Sex Assigned at Not on file 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
--- OUTSIDE RECORDS SUMMARY | 2025-06-01 21:36 | XMS_ITS | Encounter Summary ---
Author Organization [facility] Address [address] [place] [address] Care Team Providers Care Merchandise Supervisor Name Role Phone Roshan Jimenez DO Primary Care Provider Unav ailable Encounter Details Date Type Department Care Team (Latest Contact Info) Description 01/01/2007 Outpatient Historical [facility] Nose [facility] Throat [address] [place] [phone] John Black MD NO ADDRESS ON FILE Follow-Up Examination, Following Unspecified Surgery (Primary Dx) Social History Tobacco Use Types Packs/Day Years Used Date Smoking Tobacco: Never Assessed Sex and Gender Information Value Date Recorded Sex Assigned at Not on file Legal Sex Male 4:59 AM TUBE BUFFER Gender Identity Not on file Sexual Orientation Not on file documented as of this encounter Plan of Treatment Not on file documented as of this encounter Visit Diagnoses Diagnosis Follow-up examination, following unspecified surgery- Primary documented in this encounter Care Teams Merchandise Supervisor Relationship Specialty Start Date End Date Roshan Jimenez DO NO ADDRESS ON FILE PCP - General 03/26/03 documented as of this encounter
--- OUTSIDE RECORDS SUMMARY | 2025-06-01 21:36 | XMS_ITS | Encounter Summary ---
Author Organization [facility] Address [address] [place] [address] Care Team Providers Care Plant Maintenance Mechanic Name Role Phone Roshan Jimenez DO Primary Care Provider Unav ailable Encounter Details Date Type Department Care Team (Late st Contact Info) Description 05/27/2008 Outpatient Historical [facility] [address] [place] [address] [place] [address] Yusef Malagon MD NO ADDRESS ON FILE Social History Tobacco Use Types Packs/Day Years Used Date Smoking Tobacco: Every Day Cigarettes 1 40 Alcohol Use Standard Drinks/Week Comments No 0 (1 standard drink = 0.6 oz pur e alcohol) Sex and Gender Information Value Date Recorded Sex Assigned at Not on file Legal Sex Male 4:59 AM INSPECTOR LINE Gender Identity Not on file Sexual Orientation [...] 10:56 AM CDT) NITRITE UA NEGATIVE NEGATIVE [facility] UROBILINOGEN UA 0.2 0.2 [facility] CLARITY UA Clear Clear [facility] GLUCOSE UA NEGATIVE NEGATIVE [facility] SPECIFIC GRAVITY UA 1.005 <=1.005 [facility] PH UA 6.0 5.0 - 9.0 [facility] BILIRUBIN UA NEGATIVE NEGATIVE [facility] LEUKOCYTE ESTERASE UA NEGATIVE NEGATIVE [facility] MICRO EXAM No No [facility] KETONES UA NEGATIVE NEGATIVE [facility] COLOR UA Pale Yellow Straw [facility] PROTEIN UA NEGATIVE NEGATIVE [facility] BLOOD UA NEGATIVE NEGATIVE [facility] Urine specimen (specimen) 05/27/2008 10:56 AM CDT 05/27/2008 10:56 AM CDT us Yusef Malaogn MD URINE ORDERABLES Final Result Performing Organization Address City/State/[facility] Co de Phone Number INTERFACE SYSTEM Refer to clinic/hospital department [facility] CLIA# [id number] [address] [place] [address] * CBC WITH DIFFERENTIAL (05/27/2008 10:53 AM CDT) HEMATOCRIT 50.0 41.0 - 53.0 % [facility] PLATELETS 245 140 - 440 K/ul [facility] EOSINOPHILS 3.7 0.0 - 7.0 % [facility] WBC 8.5 4.8 - 10.8 K/ul [facility] EOSINOPHIL ABSOLUTE 0.3 0.0 - 0.7 K/ul [facility] RBC 5.00 4.60 - 6.20 Mil/ul [facility] MCHC 33.0 30.0 - 35.0 g/dL [facility] LYMPHOCYTES 25.7 24.0 - 44.0 % [facility] MONOCYTE ABSOLUTE 0.5 0.1 - 0.6 K/ul [facility] BASOPHILS ABSOLUTE 0.1 0.0 - 0.2 K/ul [facility] MCV 100.0 84.0 - 103.0 Fl [facility] BASOPHILS 0.7 0.0 - 1.0 % [facility] MPV 11.7 8.9 - 12.8 Fl [facility] HEMOGLOBIN 16.5 14.0 - 18.0 g/dL [facility] MONOCYTES 5.8 2.0 - 10.0 % [facility] RDW 14.3 11.0 - 14.5 % [facility] LYMPHOCYTE ABSOLUTE 2.2 1.2 - 4.0 K/ul [facility] NEUTROPHILS 64.1 42.2 - 75.2 % [facility] MCH 33.0 27.0 - 34.0 pg [facility] NEUTROPHIL ABSOLUTE 5.4 2.0 - 8.0 K/ul [facility] Blood specimen (specimen) 05/27/2008 10:53 AM CDT 05/27/2008 11:08 AM CDT us Yusef Malagon MD HEMATOLOGY ORDERABLES Final Re sult Performing Organization Address City/[facility] Co de Phone Number INTERFACE SYSTEM Refer to clinic/hospital department [facility] CLIA# [id number] [address] [place] [address] * ANTIBODY SCREEN (05/27/2008 10:53 AM CDT) ANTIBODY SCREEN Negative [facility] Blood specimen (specimen) 05/27/2008 10:53 AM CDT 05/27/2008 11:08 AM CDT us Yusef Malagon MD BLOOD BANK ORDERABLES Final Re sult Performing Organization Address City/[facility] Co de Phone Number INTERFACE SYSTEM Refer to clinic/hospital department [facility] CLIA# [id number] [address] [place] [address] * ABORH TYPING (05/27/2008 10:53 AM CDT) ABO/RH TYPE O Positive [facility] Blood specimen (specimen) 05/27/2008 10:53 AM CDT 05/27/2008 11:08 AM CDT us Yusef Malagon MD BLOOD BANK ORDERABLES Final Re sult Performing Organization Address [facility] Phone Number INTERFACE SYSTEM Refer to clinic/hospital department [facility] CLIA# [id number] [address] [place] [address] * BASIC METABOLIC PANEL (05/27/2008 10:53 AM CDT) POTASSIUM 4.0 3.5 - 5.0 mEq/L [facility] CO2 29 22 - 32 mmol/l [facility] CHLORIDE 109 95 - 110 mEq/L [facility] OSMOLALITY, CALCULATED 294 275 - 295 mOsm/Kg [facility] CREATININE 1.0 0.7 - 1.5 mg/dL [facility] CALCIUM 9.4 8.4 - 10.5 mg/dL [facility] SODIUM 143 136 - 145 mEq/L [facility] GLUCOSE 88 70 - 110 mg/dL [facility] ANION GAP 9 9 - 20 mEq/L [facility] BUN 16 9 - 20 mg/dL [facility] Blood specimen (specimen) 05/27/2008 10:53 AM CDT 05/27/2008 11:08 AM CDT us Yusef Malagon MD CHEMISTRY ORDERABLES Final Res ult Performing Organization Address [facility] de Phone Number INTERFACE SYSTEM Refer to clinic/hospital department [facility] CLIA# [id number] [address] [place] [address] documented in this encounter Visit Diagnoses Not on filedocumented in this encounter Care Teams Plant Maintenance Mechanic Relationship Specialty Start Date End Date Roshan Jimenez DO NO ADDRESS ON FILE PCP - General 03/26/03 documented as of this encounter
--- OUTSIDE RECORDS SUMMARY | 2025-06-01 21:36 | XMS_ITS | Encounter Summary ---
Author Organization [facility] Address [address] [place] [address] Care Team Providers Care Safety Associate Name Role Phone Roshan Jimenez DO Primary Care Provider Unav ailable Encounter Details Date Type Department Care Team (Latest Contact Info) Description 02/20/2007 Outpatient [facility] [address] [place] [address] Roshan Jimenez DO NO ADDRESS ON FILE Chronic Airway Obstruction, not Elsewhere Classified (CMS/HCC) (Primary Dx); Unspecified Asthma; Obesity, Unspecified; Tobacco Use Disorder Social History Tobacco Use Types Packs/Day Years Used Date Smoking Tobacco: Never Assessed Sex and Gender Information Value Date Recorded Sex Assigned at Not on file Legal Sex Male 4:59 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
--- OUTSIDE RECORDS SUMMARY | 2025-06-01 21:36 | XMS_ITS | Encounter Summary ---
Author Organization [facility] Address [address] [place] [address] Care Team Providers Care Sandfill Operator Surface Name Role Phone Roshan Jimenez DO Primary Care Provider Unav ailable Encounter Details Date Type Department Care Team (Latest Contact Info) Description 09/17/1998 Outpatient [facility] [address] [place] [address] Roshan Jimenez DO NO ADDRESS ON FILE Unspecified essential hypertension (Primary Dx); Obesity, unspecified; Obstructive chronic bronchitis without exacerbation (CMS/HCC); Reflux esophagitis Social History Tobacco Use Types Packs/Day Years Used Date Smoking Tobacco: Never Assessed Sex and Gender Information Value Date Recorded Sex Assigned at Not on file Legal Sex Male 4:59 AM 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
--- OUTSIDE RECORDS SUMMARY | 2025-06-01 21:36 | XMS_ITS | Encounter Summary ---
Author Organization [facility] Address [address] [place] [address] Care Team Providers Care Monument Carver Name Role Phone Roshan Jimenez DO Primary Care Provider Unav ailable Encounter Details Date Type Department Care Team (Latest Contact Info) Description 11/16/2006 Outpatient Historical [facility] 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
--- OUTSIDE RECORDS SUMMARY | 2025-06-01 21:36 | XMS_ITS | Encounter Summary ---
Author Organization [facility] Address [address] [place] [address] Care Team Providers Care Oracle R12 Developer Name Role Phone Roshan Jimenez DO Primary Care Provider Unav ailable Encounter Details Date Type Department Care Team (Latest Contact Info) Description 02/04/2003 Outpatient 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 Gender Identity Not on file Sexual Orientation Not on file documented as of this encounter Plan of Treatment Not on file documented as of this encounter Visit Diagnoses Diagnosis Unspecified essential hypertension- Primary Obesity, unspecified Chronic airway obstruction, not elsewhere classified (CMS/HCC) Chronic airway obstruction, not elsewhere classified Osteoarthrosis, unspecified whether generalized or localized, unspecified site documented in this encounter Care Teams Oracle R12 Developer Relationship Specialty Start Date End Date Roshan Jimenez DO NO ADDRESS ON FILE PCP - General 03/26/03 documented as of this encounter
--- OUTSIDE RECORDS SUMMARY | 2025-06-01 21:36 | XMS_ITS | Encounter Summary ---
Author Organization [facility] Address [address] [place] [address] Care Team Providers Care Campground Hand Name Role Phone Roshan Jimenez DO Primary Care Provider Unav ailable Encounter Details Date Type Department Care Team (Latest Contact Info) Description 11/11/2003 Outpatient [facility] Podiatry-[facility] [place] [address] Noé Rosa, DPM [address] [place] [address] Onychia of toe (Primary Dx); INGROWING NAIL Social History Tobacco Use Types Packs/Day Years Used Date Smoking Tobacco: Never Assessed Sex and Gender Information Value Date Recorded Sex Assigned at Not on file 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
--- OUTSIDE RECORDS SUMMARY | 2025-06-01 21:36 | XMS_ITS | Encounter Summary ---
Author Organization [facility] Address [address] [place] [address] Care Team Providers Care Principal Solutions Architect Name Role Phone Roshan Jimenez DO Primary Care Provider Unav ailable Encounter Details Date Type Department Care Team (Latest Contact Info) Description 02/15/2005 Outpatient Historical [facility] [address] [place] [address] Roshan Jimenez DO NO ADDRESS ON FILE CORONARY ATHEROSCLER UNSPEC VESSEL (Primary Dx) Social History Tobacco Use Types Packs/Day Years Used Date Smoking Tobacco: Never Assessed Sex and Gender Information Value Date Recorded Sex Assigned at Not on file 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
--- OUTSIDE RECORDS SUMMARY | 2025-06-01 21:36 | XMS_ITS | Encounter Summary ---
Author Organization [facility] Address [address] [place] [address] Care Team Providers Care Casino Floorperson Name Role Phone Roshan Jimenez DO Primary Care Provider Unav ailable Encounter Details Date Type Department Care Team (Latest Contact Info) Description 11/27/2002 Outpatient [facility] Podiatry-Stevo Bal [address] [place] [address] Noé Rosa, DPM [address] [place] [address] Onychia of toe (Primary Dx); INGROWING NAIL Social History Tobacco Use Types Packs/Day Years Used Date Smoking Tobacco: Never Assessed Sex and Gender Information Value Date Recorded Sex Assigned at Not on file 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
--- OUTSIDE RECORDS SUMMARY | 2025-06-01 21:36 | XMS_ITS | Encounter Summary ---
Author Organization [facility] Address [address] [place] [address] Care Team Providers Care Volleyball Assembler Name Role Phone Roshan Jimenez DO Primary Care Provider Unav ailable Encounter Details Date Type Department Care Team (Latest Contact Info) Description 04/18/2005 Outpatient [facility] [address] [place] [address] Roshan Jimenez DO NO ADDRESS ON FILE MORBID OBESITY ([facility]) (Primary Dx); SLEEP APNEA NOS; EDEMA; ASTHMA UNSPECIFIED Social History Tobacco Use Types Packs/Day Years Used Date Smoking Tobacco: Never Assessed Sex and Gender Information Value Date Recorded Sex Assigned at Not on file 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
--- OUTSIDE RECORDS SUMMARY | 2025-06-01 21:36 | XMS_ITS | Encounter Summary ---
Author Organization [facility] Address [address] [place] [address] Care Team Providers Care Flatwork Catcher Name Role Phone Roshan Jimenez DO Primary Care Provider Unav ailable Encounter Details Date Type Department Care Team (Latest Contact Info) Description 07/17/2006 Outpatient [facility] [address] [place] [address] Roshan Jimenez DO NO ADDRESS ON FILE Unspecified Essential Hypertension (Primary Dx); Unspecified Asthma; Depressive Disorder, not Elsewhere Classified Social History Tobacco Use Types Packs/Day Years Used Date Smoking Tobacco: Never Assessed Sex and Gender Information Value Date Recorded Sex Assigned at Not on file 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
--- OUTSIDE RECORDS SUMMARY | 2025-06-01 21:36 | XMS_ITS | Encounter Summary ---
Author Organization [facility] Address [address] [place] [address] Care Team Providers Care Healthcare Financial Analyst Name Role Phone Roshan Jimenez DO Primary Care Provider Unav ailable Encounter Details Date Type Department Care Team (Latest Contact Info) Description 04/18/2006 Outpatient [facility] [address] [place] [address] Roshan Jimenez DO NO ADDRESS ON FILE Depressive Disorder, not Elsewhere Classified (Primary Dx); Anxiety State, Unspecified; Unspecified Essential Hypertension Social History Tobacco Use Types Packs/Day Years Used Date Smoking Tobacco: Never Assessed Sex and Gender Information Value Date Recorded Sex Assigned at Not on file 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
--- OUTSIDE RECORDS SUMMARY | 2025-06-01 21:36 | XMS_ITS | Encounter Summary ---
Author Organization [facility] Address [address] [place] [address] Care Team Providers Care Psychic Reader Name Role Phone Roshan Jimenez DO Primary Care Provider Unav ailable Encounter Details Date Type Department Care Team (Latest Contact Info) Description 04/20/1998 Outpatient [facility] [address] [place] [address] Roshan Jimenez DO NO ADDRESS ON FILE Acute bronchitis (Primary Dx); Obstructive chronic bronchitis with exacerbation (CMS/HCC); Tobacco use disorder; Edema Social History Tobacco Use Types Packs/Day Years Used Date Smoking Tobacco: Never Assessed Sex and Gender Information Value Date Recorded Sex Assigned at Not on file 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
--- OUTSIDE RECORDS SUMMARY | 2025-06-01 21:36 | XMS_ITS | Encounter Summary ---
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
--- OUTSIDE RECORDS SUMMARY | 2025-06-01 21:36 | XMS_ITS | Encounter Summary ---
Author Organization [facility] Address [address] [place] [address] Care Team Providers Care Pneumatic Tester Name Role Phone Roshan Jimenez DO Primary Care Provider Unav ailable Encounter Details Date Type Department Care Team (Latest Contact Info) Description 02/10/2004 [facility] [address] [place] [address] Roshan Jimenez DO NO ADDRESS ON FILE CHRONIC AIRWAY OBSTRUCTION NEC ([facility]) (Primary Dx); HYPERTENSION NOS; OBESITY NOS; OSTEOARTHROS NOS-UNSPEC Social History Tobacco Use Types Packs/Day Years Used Date Smoking Tobacco: Never Assessed Sex and Gender Information Value Date Recorded Sex Assigned at Not on file 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 Gender Identity Not on file Sexual Orientation Not on file documented as of this encounter Plan of Treatment Not on file documented as of this encounter Visit Diagnoses Diagnosis Chronic airway obstruction, not elsewhere classified ([facility])- Primary Chronic airway obstruction, not elsewhere classified Unspecified essential hypertension Obesity, unspecified Osteoarthrosis, unspecified whether generalized or localized, unspecified site documented in this encounter Care Teams Pneumatic Tester Relationship Specialty Start Date End Date Roshan Jimenez DO NO ADDRESS ON FILE PCP - General 03/26/03 documented as of this encounter
--- OUTSIDE RECORDS SUMMARY | 2025-06-01 21:36 | XMS_ITS | Encounter Summary ---
Author Organization [facility] Address [address] [place] [address] Care Team Providers Care Assembly Machine Feeder Name Role Phone Roshan Jimenez DO Primary Care Provider Unav ailable Encounter Details Date Type Department Care Team (Latest Contact Info) Description 12/23/1998 Outpatient Historical [facility] [address] [place] [address] Roshan Jimenez DO NO ADDRESS ON FILE Chronic airway obstruction, not elsewhere classified (CMS/HCC) (Primary Dx); Unspecified essential hypertension; Osteoarthrosis, unspecified whether generalized or localized, unspecified site Social History Tobacco Use Types Packs/Day Years Used Date Smoking Tobacco: Never Assessed Sex and Gender Information Value Date Recorded Sex Assigned at Not on file 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 Gender Identity Not on file Sexual Orientation Not on file documented as of this encounter Plan of Treatment Not on file documented as of this encounter Visit Diagnoses Diagnosis Chronic airway obstruction, not elsewhere classified (CMS/HCC)- Primary Chronic airway obstruction, not elsewhere classified Unspecified essential hypertension Osteoarthrosis, unspecified whether generalized or localized, unspecified site documented in this encounter Care Teams Assembly Machine Feeder Relationship Specialty Start Date End Date Roshan Jimenez DO NO ADDRESS ON FILE PCP - General 03/26/03 documented as of this encounter
--- OUTSIDE RECORDS SUMMARY | 2025-06-01 21:36 | XMS_ITS | Encounter Summary ---
Author Organization 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 INR 1.9 [facility] Comment: Expected Values for INR: DVT/PE Goal INR 2.5; range 2.0 - 3.0 Valve Replacement Tissue Goal INR 2.5; range 2.0 - 3.0 Mechanical Goal INR 3.0; range 2.5 - 3.5 POST-GA Goal INR 2.5; range 2.0 - 3.0 or Goal 3.0; range 2.5 - 3.5 Atrial Fibrillation Goal INR 2.5; range 2.0 - 3.0 Ischemic Stroke Goal INR 2.5; range 2.0 - 3.0 For additional information see Guidelines for Anticoagulation available from the pharmacy [facility] [phone] Blood specimen (specimen) 06/09/2008 4:58 AM CDT 06/09/2008 5:24 AM CDT us Moiz Barros MD HEMATOLOGY ORDERABLES Fi nal Result INTERFACE SYSTEM Refer to clinic/hospital department [facility] CLIA# [id number] [address] [place] [address] * (ABNORMAL) PROTIME-INR (06/08/2008 4:50 AM CDT) INR 1.5 [facility] Comment: Expected Values for INR: DVT/PE Goal INR 2.5; range 2.0 - 3.0 Valve Replacement Tissue Goal INR 2.5; range 2.0 - 3.0 Mechanical Goal INR 3.0; range 2.5 - 3.5 POST-GA Goal INR 2.5; range 2.0 - 3.0 or Goal 3.0; range 2.5 - 3.5 Atrial Fibrillation Goal INR 2.5; range 2.0 - 3.0 Ischemic Stroke Goal INR 2.5; range 2.0 - 3.0 For additional information see Guidelines for Anticoagulation available from the pharmacy Kendy Gonzalez [phone] PROTIME 20.0(H) 12.8 - 15.8 Secs [facility] Comment:As of 2007 not e change in normal range. Blood specimen (specimen) 06/08/2008 4:50 AM CDT 06/08/2008 5:18 AM CDT us Moiz Barros MD HEMATOLOGY ORDERABLES Fi nal Result INTERFACE SYSTEM Refer to clinic/hospital department [facility] CLIA# [id number] [address] [place] [address] * (ABNORMAL) CBC WITH DIFFERENTIAL (06/07/2008 5:35 AM CDT) NEUTROPHIL ABSOLUTE 10.9(H) 2.0 - 8.0 K/ul [facility] HEMATOCRIT 40.7(L) 41.0 - 53.0 % [facility] PLATELETS 188 140 - 440 K/ul [facility] EOSINOPHIL ABSOLUTE 0.1 0.0 - 0.7 K/ul [facility] EOSINOPHILS 0.7 0.0 - 7.0 % [facility] RBC 4.15(L) 4.60 - 6.20 Mil/ul [facility] MCHC 32.9 30.0 - 35.0 g/dL [facility] LYMPHOCYTE ABSOLUTE 1.7 1.2 - 4.0 K/ul [facility] LYMPHOCYTES 11.5(L) 24.0 - 44.0 % [facility] MCV 98.1 84.0 - 103.0 Fl [facility] BASOPHILS 0.2 0.0 - 1.0 % [facility] MPV 10.4 8.9 - 12.8 Fl [facility] BASOPHILS ABSOLUTE 0.0 0.0 - 0.2 K/ul [facility] HEMOGLOBIN 13.4(L) 14.0 - 18.0 g/dL [facility] RDW 14.0 11.0 - 14.5 % [facility] MONOCYTES 11.5(H) 2.0 - 10.0 % [facility] MONOCYTE ABSOLUTE 1.7(H) 0.1 - 0.6 K/ul [facility] WBC 14.4(H) 4.8 - 10.8 K/ul [facility] MCH 32.3 27.0 - 34.0 pg [facility] NEUTROPHILS 76.1(H) 42.2 - 75.2 % [facility] Blood specimen (specimen) 06/07/2008 5:35 AM CDT 06/07/2008 5:47 AM CDT us Moiz Barros MD HEMATOLOGY ORDERABLES Fi nal Result INTERFACE SYSTEM Refer to clinic/hospital department [facility]# [id number] [address] [place] [address] * (ABNORMAL) PROTIME-INR (06/07/2008 5:35 AM CDT) PROTIME 18.6(H) 12.8 - 15.8 Secs [facility] Comment:As of 2007 not e change in normal range. INR 1.4 [facility] Comment: Expected Values for INR: DVT/PE Goal INR 2.5; range 2.0 - 3.0 Valve Replacement Tissue Goal INR 2.5; range 2.0 - 3.0 Mechanical Goal INR 3.0; range 2.5 - 3.5 POST-GA Goal INR 2.5; range 2.0 - 3.0 or Goal 3.0; range 2.5 - 3.5 Atrial Fibrillation Goal INR 2.5; range 2.0 - 3.0 Ischemic Stroke Goal INR 2.5; range 2.0 - 3.0 For additional information see Guidelines for Anticoagulation available from the pharmacy [facility] [phone] Blood specimen (specimen) 06/07/2008 5:35 AM CDT 06/07/2008 5:47 AM CDT us Yusef Malagon MD HEMATOLOGY ORDERABLES Final Re sult INTERFACE SYSTEM Refer to clinic/hospital department [facility] CLIA# [id number] [address] [place] [address] * (ABNORMAL) PROTIME-INR (06/06/2008 5:32 AM CDT) PROTIME 16.3(H) 12.8 - 15.8 Secs [facility] Comment:As of 2007 not e change in normal range. INR 1.2 [facility] Comment: Expected Values for INR: DVT/PE Goal INR 2.5; range 2.0 - 3.0 Valve Replacement Tissue Goal INR 2.5; range 2.0 - 3.0 Mechanical Goal INR 3.0; range 2.5 - 3.5 POST-GA Goal INR 2.5; range 2.0 - 3.0 or Goal 3.0; range 2.5 - 3.5 Atrial Fibrillation Goal INR 2.5; range 2.0 - 3.0 Ischemic Stroke Goal INR 2.5; range 2.0 - 3.0 For additional information see Guidelines for Anticoagulation available from the pharmacy [facility] [phone] Blood specimen (specimen) 06/06/2008 5:32 AM CDT 06/06/2008 5:54 AM CDT us Yusef Malagon MD HEMATOLOGY ORDERABLES Final Re sult INTERFACE SYSTEM Refer to clinic/hospital department [facility] CLIA# [id number] [address] [place] [address] * (ABNORMAL) CBC WITH DIFFERENTIAL (06/06/2008 5:32 AM CDT) BASOPHILS 0.3 0.0 - 1.0 % [facility] BASOPHILS ABSOLUTE 0.0 0.0 - 0.2 K/ul [facility] HEMATOCRIT 40.4(L) 41.0 - 53.0 % [facility] PLATELETS 217 140 - 440 K/ul [facility] MONOCYTES 11.3(H) 2.0 - 10.0 % [facility] MONOCYTE ABSOLUTE 1.4(H) 0.1 - 0.6 K/ul [facility] RBC 4.12(L) 4.60 - 6.20 Mil/ul [facility] MCHC 32.7 30.0 - 35.0 g/dL [facility] NEUTROPHIL ABSOLUTE 9.3(H) 2.0 - 8.0 K/ul [facility] MCV 98.1 84.0 - 103.0 Fl [facility] MPV 10.9 8.9 - 12.8 Fl [facility] EOSINOPHIL ABSOLUTE 0.1 0.0 - 0.7 K/ul [facility] EOSINOPHILS 0.6 0.0 - 7.0 % [facility] HEMOGLOBIN 13.2(L) 14.0 - 18.0 g/dL [facility] RDW 13.8 11.0 - 14.5 % [facility] LYMPHOCYTE ABSOLUTE 1.7 1.2 - 4.0 K/ul [facility] LYMPHOCYTES 13.7(L) 24.0 - 44.0 % [facility] WBC 12.5(H) 4.8 - 10.8 K/ul [facility] NEUTROPHILS 74.1 42.2 - 75.2 % [facility] MCH 32.0 27.0 - 34.0 pg [facility] Blood specimen (specimen) 06/06/2008 5:32 AM CDT 06/06/2008 5:56 AM CDT us Yusef Malagon MD HEMATOLOGY ORDERABLES Final Re sult Performing Organization Address [facility] Phone Number INTERFACE SYSTEM Refer to clinic/hospital department [facility] CLIA# [id number] [address] [place] [address] * (ABNORMAL) BASIC METABOLIC PANEL (06/06/2008 5:32 AM CDT) [facility] SODIUM 137 136 - 145 mEq/L [facility] ANION GAP 9 9 - 20 mEq/L [facility] BUN 13 9 - 20 mg/dL [facility] CO2 26 22 - 32 mmol/l [facility] OSMOLALITY, CALCULATED 283 275 - 295 mOsm/Kg [facility] POTASSIUM 3.7 3.5 - 5.0 mEq/L [facility] CREATININE 0.8 0.7 - 1.5 mg/dL [facility] CALCIUM 8.9 8.4 - 10.5 mg/dL [facility] GLUCOSE 122(H) 70 - 110 mg/dL [facility] CHLORIDE 106 95 - 110 mEq/L [facility] Blood specimen (specimen) 06/06/2008 5:32 AM CDT 06/06/2008 5:56 AM CDT us Yusef Malagon MD CHEMISTRY ORDERABLES Final Res ult Performing Organization Address [facility] de Phone Number INTERFACE SYSTEM Refer to [facility] CLIA# [id number] [address] [place] [address] * (ABNORMAL) POC GLUCOSE (06/05/2008 3:01 PM CDT) GLUCOSE POC 115(H) 60 - 100 mg/dL [facility] Venous blood specimen (specimen) 06/05/2008 3:01 PM CDT 06/05/2008 4:38 PM CDT us Yusef Malagon MD POINT OF CARE TESTING Final Re sult INTERFACE SYSTEM Refer to clinic/hospital department [facility] CLIA# [id number] [address] [place] [address] * XR KNEE 1 OR 2 VW [...] GLUCOSE POC 94 60 - 100 mg/dL [facility] Venous blood specimen (specimen) 06/05/2008 11:08 AM CDT 06/06/2008 7:27 AM CDT us Yusef Malagon MD POINT OF CARE TESTING Final Re sult Performing Organization Address [facility] Co de Phone Number INTERFACE SYSTEM Refer to clinic/hospital department [facility] CLIA# [id number] [address] [place] [address] * TYPE AND CROSSMATCH (06/05/2008 6:35 AM CDT) Pathologist [facility] BLOOD BANK PRODUCT INTERFACE SYSTEM Blood specimen (specimen) 06/05/2008 6:35 AM CDT 06/05/2008 6:35 AM CDT us Yusef Malagon MD BLOOD BANK ORDERABLES Final Re sult Performing Organization Address [facility] de Phone Number INTERFACE SYSTEM Refer to clinic/hospital department documented in this encounter Visit Diagnoses Not on filedocumented in this encounter Care Teams Shaping Machine Operator Relationship Specialty Start Date End Date Roshan Jimenez DO NO ADDRESS ON FILE PCP - General 03/26/03 documented as of this encounter
--- OUTSIDE RECORDS SUMMARY | 2025-06-01 21:36 | XMS_ITS | Encounter Summary ---
Author Organization [facility] Address [address] [place] [address] Care Team Providers Care Temper Mill Roller Name Role Phone Roshan Jimenez DO Primary Care Provider Unav ailable Encounter Details Date Type Department Care Team (Latest Contact Info) Description 03/26/2003 Outpatient Historical [facility] [place] [address] [address] Demetri Chávez MD [address] [facility] [address] [place] [address] SCREENING MAL NEOP-COLON (Primary Dx) Social History Tobacco Use Types Packs/Day Years Used Date Smoking Tobacco: Never Assessed Sex and Gender Information Value Date Recorded Sex Assigned at Not on file Legal Sex Male 4:59 AM 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
--- OUTSIDE RECORDS SUMMARY | 2025-06-01 21:36 | XMS_ITS | Encounter Summary ---
Author Organization [employer] [facility] Address [address] [place] [address] Care Team Providers Care Fuel Cell Repairer Name Role Phone Roshan Jimenez DO Primary Care Provider Unav ailable Encounter Details Date Type Department Care Team (Latest Contact Info) Description 12/23/1998 Outpatient Historical [facility] Axel Armstrong NO ADDRESS ON FILE Localized osteoarthrosis not specified whether primary or secondary, lower leg (Primary Dx) Social History Tobacco Use Types Packs/Day Years Used Date Smoking Tobacco: Never Assessed Sex and Gender Information Value Date Recorded Sex Assigned at Not on file Legal Sex Male 4:59 AM [employer] Gender Identity Not on file Sexual Orientation Not on file documented as of this encounter Plan of Treatment Not on file documented as of this encounter Visit Diagnoses Diagnosis Localized osteoarthrosis not specified whether primary or secondary, lower leg- Primary documented in this encounter Care Teams Fuel Cell Repairer Relationship Specialty Start Date End Date Roshan Jimenez DO NO ADDRESS ON FILE PCP - General 03/26/03 documented as of this encounter
--- OUTSIDE RECORDS SUMMARY | 2025-06-01 21:36 | XMS_ITS | Encounter Summary ---
Author Organization [facility] Address [address] [place] [address] Care Team Providers Care Driver Manager Name Role Phone Roshan Jimenez DO Primary Care Provider Unav ailable Encounter Details Date Type Department Care Team (Latest Contact Info) Description 10/20/2006 Outpatient Historical [facility] E Yancey [address] [place] [id number] Merlin eRilly MD NO ADDRESS ON FILE Obstructive Sleep Apnea (Primary Dx) Social History Tobacco Use Types Packs/Day Years Used Date Smoking Tobacco: Never Assessed Sex and Gender Information Value Date Recorded Sex Assigned at Not on file Legal Sex Male 4:59 AM SAND OPERATOR Gender Identity Not on file Sexual Orientation Not on file documented as of this encounter Plan of Treatment Not on file documented as of this encounter Visit Diagnoses Diagnosis Obstructive sleep apnea- Primary Obstructive sleep apnea (adult) (pediatric) documented in this encounter Care Teams Driver Manager Relationship Specialty Start Date End Date Roshan Jimenez DO NO ADDRESS ON FILE PCP - General 03/26/03 documented as of this encounter
--- OUTSIDE RECORDS SUMMARY | 2025-06-01 21:36 | XMS_ITS | Encounter Summary ---
Author Organization [facility] Address [address] [place] [address] Care Team Providers Care Painter Shipyard Name Role Phone Roshan Jimenez DO Primary Care Provider Unav ailable Encounter Details Date Type Department Care Team (Latest Contact Info) Description 12/23/1999 Outpatient [facility] [address] [place] [address] Roshan Jimenez DO NO ADDRESS ON FILE Unspecified essential hypertension (Primary Dx); Allergic rhinitis, cause unspecified; Chronic airway obstruction, not elsewhere classified (CMS/HCC); Obesity, unspecified Social History Tobacco Use Types Packs/Day Years Used Date Smoking Tobacco: Never Assessed Sex and Gender Information Value Date Recorded Sex Assigned at Not on file 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 Sex 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
--- OUTSIDE RECORDS SUMMARY | 2025-06-01 21:36 | XMS_ITS | Encounter Summary ---
Author Organization [facility] Address [address] [place] [address] Care Team Providers Care Vegetable Vendor Name Role Phone Roshan Jimenez DO Primary Care Provider Unav ailable Encounter Details Date Type Department Care Team (Latest Contact Info) Description 06/19/1998 Outpatient [facility] [address] [place] [address] Roshan Jimenez DO NO ADDRESS ON FILE Obstructive chronic bronchitis without exacerbation (CMS/HCC) (Primary Dx); Tobacco use disorder; Obesity, unspecified; Unspecified essential hypertension Social History Tobacco Use Types Packs/Day Years Used Date Smoking Tobacco: Never Assessed Sex and Gender Information Value Date Recorded Sex Assigned at Not on file 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
--- OUTSIDE RECORDS SUMMARY | 2025-06-01 21:36 | XMS_ITS | Encounter Summary ---
Author Organization [facility] Address [address] [place] [address] Care Team Providers Care Cognos Report Developer Name Role Phone Roshan Jimenez DO Primary Care Provider Unav ailable Encounter Details Date Type Department Care Team (Latest Contact Info) Description 11/25/2003 Outpatient Historical [facility] Podiatry-Stevo Bal Aaron [address] [place] [address] Noé Rosa, DPM [address] [place] [address] Onychia of toe (Primary Dx); INGROWING NAIL Social History Tobacco Use Types Packs/Day Years Used Date Smoking Tobacco: Never Assessed Sex and Gender Information Value Date Recorded Sex Assigned at Not on file 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
--- OUTSIDE RECORDS SUMMARY | 2025-06-01 21:36 | XMS_ITS | Encounter Summary ---
Author Organization [facility] Address [address] [place] [address] Care Team Providers Care Filler Shredding Machine Loader Name Role Phone Roshan Jimenez DO Primary Care Provider Unav ailable Encounter Details Date Type Department Care Team (Latest Contact Info) Description 02/17/2006 Outpatient [facility] [address] [place] [address] Roshan Jimenez DO NO ADDRESS ON FILE Viral Infection (Primary Dx); Unspecified Essential Hypertension; Unspecified Chronic Bronchitis (CMS/HCC); Impacted Cerumen Social History Tobacco Use Types Packs/Day Years Used Date Smoking Tobacco: Never Assessed Sex and Gender Information Value Date Recorded Sex Assigned at Not on file Legal Sex Male 4:59 AM TARIFF COUNSEL Gender Identity Not on file Sexual Orientation Not on file documented as of this encounter Plan of Treatment Not on file documented as of this encounter Visit Diagnoses Diagnosis Unspecified viral infection, in conditions classified elsewhere and of unspecified site- Primary Unspecified essential hypertension Unspecified chronic bronchitis (CMS/HCC) Unspecified chronic bronchitis Impacted cerumen documented in this encounter Care Teams Filler Shredding Machine Loader Relationship Specialty Start Date End Date Roshan Jimenez DO NO ADDRESS ON FILE PCP - General 03/26/03 documented as of this encounter
--- OUTSIDE RECORDS SUMMARY | 2025-06-01 21:36 | XMS_ITS | Encounter Summary ---
Author Organization [facility] Address [address] [place] [address] Care Team Providers Care Restaurant Lead Name Role Phone Roshan Jimenez DO Primary Care Provider Unav ailable Encounter Details Date Type Department Care Team (Latest Contact Info) Description 12/23/1998 Outpatient Historical [facility] Podiatry-Stevo Bal Aaron [address] [place] [address] Noé Rosa, DPM [address] [place] [address] Ingrowing nail (Primary Dx); Dermatophytosis of nail Social History Tobacco Use Types Packs/Day Years Used Date Smoking Tobacco: Never Assessed Sex and Gender Information Value Date Recorded Sex Assigned at Not on file Legal Sex Male 4:59 AM FILAMENT SHAPER Gender Identity Not on file Sexual Orientation Not on file documented as of this encounter Plan of Treatment Not on file documented as of this encounter Visit Diagnoses Diagnosis Ingrowing nail- Primary Dermatophytosis of nail documented in this encounter Care Teams Restaurant Lead Relationship Specialty Start Date End Date Roshan Jimenez DO NO ADDRESS ON FILE PCP - General 03/26/03 documented as of this encounter
--- OUTSIDE RECORDS SUMMARY | 2025-06-01 21:36 | XMS_ITS | Encounter Summary ---
Author Organization [facility] Address [address] [place] [address] Care Team Providers Care Cancer Genetics Assistant Name Role Phone Roshan Jimenez DO Primary Care Provider Unav ailable Encounter Details Date Type Department Care Team (Latest Contact Info) Description 04/13/1998 Outpatient [facility] [address] [place] [address] Roshan Jimenez DO NO ADDRESS ON FILE Obstructive chronic bronchitis with exacerbation (CMS/HCC) (Primary Dx); Malaise and fatigue; Tobacco use disorder; Unspecified essential hypertension; Acute bronchitis Social History Tobacco Use Types Packs/Day Years Used Date Smoking Tobacco: Never Assessed Sex and Gender Information Value Date Recorded Sex Assigned at Not on file 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 Sex Male 4:59 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
--- OUTSIDE RECORDS SUMMARY | 2025-06-01 21:36 | XMS_ITS | Encounter Summary ---
Author Organization [facility] Address [address] [place] [address] Care Team Providers Care Forest Worker Name Role Phone Roshan Jimenez DO Primary Care Provider Unav ailable Encounter Details Date Type Department Care Team (Latest Contact Info) Description 12/11/2002 Outpatient [facility] Podiatry-Stevo Bal Aaron [address] [place] [address] Noé oRsa, DPM [address] [place] [address] Onychia of toe (Primary Dx) Social History Tobacco Use Types Packs/Day Years Used Date Smoking Tobacco: Never Assessed Sex and Gender Information Value Date Recorded Sex Assigned at Not on file Legal Sex Male 4:59 AM INTEGRATION MANAGER Gender Identity Not on file Sexual Orientation Not on file documented as of this encounter Plan of Treatment Not on file documented as of this encounter Visit Diagnoses Diagnosis Onychia of toe- Primary Onychia and paronychia of toe documented in this encounter Care Teams Forest Worker Relationship Specialty Start Date End Date Roshan Jimenez DO NO ADDRESS ON FILE PCP - General 03/26/03 documented as of this encounter
--- OUTSIDE RECORDS SUMMARY | 2025-06-01 21:36 | XMS_ITS | Encounter Summary ---
Author Organization [facility] Address [address] [place] [address] Care Team Providers Care Staking Press Operator Name Role Phone Roshan Jimenez DO Primary Care Provider Unav ailable Encounter Details Date Type Department Care Team (Latest Contact Info) Description 11/30/2006 Outpatient Historical [facility] Ear, Nose and Throat [address] [address] [place] [address] Thomas Harry MD [address] [facility] [address] [place] [phone] Follow-Up Examination, Following Unspecified Surgery (Primary Dx) Social History Tobacco Use Types Packs/Day Years Used Date Smoking Tobacco: Never Assessed Sex and Gender Information Value Date Recorded Sex Assigned at Not on file Legal Sex Male 4:59 AM DEPUTY HARBORMASTER Gender Identity Not on file Sexual Orientation Not on file documented as of this encounter Plan of Treatment Not on file documented as of this encounter Visit Diagnoses Diagnosis Follow-up examination, following unspecified surgery- Primary documented in this encounter Care Teams Staking Press Operator Relationship Specialty Start Date End Date Roshan Jimenez DO NO ADDRESS ON FILE PCP - General 03/26/03 documented as of this encounter
--- OUTSIDE RECORDS SUMMARY | 2025-06-01 21:36 | XMS_ITS | Encounter Summary ---
Author Organization [facility] Address [address] [place] [address] Care Team Providers Care Rubber Goods Tester Name Role Phone Roshan Jimenez DO Primary Care Provider Unav ailable Encounter Details Date Type Department Care Team (Latest Contact Info) Description 10/24/[address] [facility] Ear, Nose and Throat [address] [place] [address] [place] [address] Ant Marcelo, LUIS ANTONIO [address] [place], [place] [id number] Hypersomnia with Sleep Apnea, Unspecified (Primary Dx); Deviated Nasal Septum; Hypertrph Nasal Turbinat; Tobacco Use Disorder Social History Tobacco Use Types Packs/Day Years Used Date Smoking Tobacco: Never Assessed Sex and Gender Information Value Date Recorded Sex Assigned at Not on file Legal Sex Male 4:59 AM FISHING BOAT MATE Gender Identity Not on file Sexual Orientation Not on file documented as of this encounter Plan of Treatment Not on file documented as of this encounter Visit Diagnoses Diagnosis Hypersomnia with sleep apnea, unspecified- Primary Deviated nasal septum Hypertrph nasal turbinat Hypertrophy of nasal turbinates Tobacco use disorder documented in this encounter Care Teams Rubber Goods Tester Relationship Specialty Start Date End Date Roshan Jimenez DO NO ADDRESS ON FILE PCP - General 03/26/03 documented as of this encounter
--- OUTSIDE RECORDS SUMMARY | 2025-06-01 21:36 | XMS_ITS | Encounter Summary ---
Author Organization [facility] Address [address] [place] [address] Care Team Providers Care Steeler Name Role Phone Roshan Jimenez DO Primary Care Provider Unav ailable Encounter Details Date Type Department Care Team (Latest Contact Info) Description 06/23/1999 Outpatient [facility] [address] [place] [address] Roshan Jimenez DO NO ADDRESS ON FILE Unspecified essential hypertension (Primary Dx); Reflux esophagitis; Obesity, unspecified; Chronic airway obstruction, not elsewhere classified (CMS/HCC) Social History Tobacco Use Types Packs/Day Years Used Date Smoking Tobacco: Never Assessed Sex and Gender Information Value Date Recorded Sex Assigned at Not on file Legal Sex Male 4:59 AM ROUTE 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
--- OUTSIDE RECORDS SUMMARY | 2025-06-01 21:36 | XMS_ITS | Encounter Summary ---
Author Organization [facility] Address [address] [place] [address] Care Team Providers Care Foil Stamp Operator Name Role Phone Roshan Jimenez DO Primary Care Provider Unav ailable Encounter Details Date Type Department Care Team (Latest Contact Info) Description 04/03/2007 Outpatient [facility] [address] [place] [address] Roshan Jimenez DO NO ADDRESS ON FILE Unspecified Essential Hypertension (Primary Dx); Other Apnea of ; Obesity, Unspecified Social History Tobacco Use Types Packs/Day Years Used Date Smoking Tobacco: Never Assessed Sex and Gender Information Value Date Recorded Sex Assigned at Not on file Legal Sex Male 4:59 AM CONTRACT SHELTERED WORKSHOP SUPERVISOR Gender Identity Not on file Sexual Orientation Not on file documented as of this encounter Plan of Treatment Not on file documented as of this encounter Visit Diagnoses Diagnosis Unspecified essential hypertension- Primary Other apnea of Obesity, unspecified documented in this encounter Care Teams Foil Stamp Operator Relationship Specialty Start Date End Date Roshan Jimenez DO NO ADDRESS ON FILE PCP - General 03/26/03 documented as of this encounter
--- OUTSIDE RECORDS SUMMARY | 2025-06-01 21:36 | XMS_ITS | Encounter Summary ---
Author Organization [facility] Address [address] [place] [address] Care Team Providers Care Sap Project Manager Name Role Phone Roshan Jimenez DO Primary Care Provider Unav ailable Encounter Details Date Type Department Care Team (Latest Contact Info) Description 08/09/2004 Outpatient [facility] [address] [place] [address] Roshan Jimenez DO NO ADDRESS ON FILE CHRONIC AIRWAY OBSTRUCTION NEC ([facility]) (Primary Dx); REFLUX ESOPHAGITIS; HYPERTENSION NOS Social History Tobacco Use Types Packs/Day Years Used Date Smoking Tobacco: Never Assessed Sex and Gender Information Value Date Recorded Sex Assigned at Not on file Legal Sex Male 4:59 AM CEMENT [address] Gender Identity Not on file Sexual Orientation Not on file documented as of this encounter Plan of Treatment Not on file documented as of this encounter Visit Diagnoses Diagnosis Chronic airway obstruction, not elsewhere classified ([facility]/HCC)- Primary Chronic airway obstruction, not elsewhere classified Reflux esophagitis Unspecified essential hypertension documented in this encounter Care Teams Sap Project Manager Relationship Specialty Start Date End Date Roshan Jimenez DO NO ADDRESS ON FILE PCP - General 03/26/03 documented as of this encounter
--- OUTSIDE RECORDS SUMMARY | 2025-06-01 21:36 | XMS_ITS | Encounter Summary ---
Author Organization [facility] Address [address] [place] [address] Care Team Providers Care Manager Card Name Role Phone Roshan Jimenez DO Primary Care Provider Unav ailable Encounter Details Date Type Department Care Team (Late st Contact Info) Description 04/29/2005 Outpatient [facility] [address] [place] [address] [place] [phone] Social History Tobacco Use Types Packs/Day Years Used Date Smoking Tobacco: Never Assessed Sex and Gender Information Value Date Recorded Sex Assigned at Not on file Legal Sex Male 4:59 AM SKEIN DRIER Gender Identity Not on file Sexual Orientation Not on file documented as of this encounter Plan of Treatment Not on file documented as of this encounter Visit Diagnoses Not on filedocumented in this encounter Care Teams Manager Card Relationship Specialty Start Date End Date Roshan iJmenez DO NO ADDRESS ON FILE PCP - General 03/26/03 documented as of this encounter
--- OUTSIDE RECORDS SUMMARY | 2025-06-01 21:36 | XMS_ITS | Encounter Summary ---
Author Organization [facility] Address [address] [place] [address] Care Team Providers Care Director Of Primary Care Name Role Phone Roshan Jimenez DO Primary Care Provider Unav ailable Encounter Details Date Type Department Care Team (Latest Contact Info) Description 01/22/[address] [facility] Podiatry-[facility] [address] [place] [address] Noé Rosa, DPM [address] [place] [address] Ingrowing nail (Primary Dx) Social History Tobacco Use Types Packs/Day Years Used Date Smoking Tobacco: Never Assessed Sex and Gender Information Value Date Recorded Sex Assigned at Not on file Legal Sex Male 4:59 AM TECHNICAL INSTRUCTOR COURSE DEVELOPER Gender Identity Not on file Sexual Orientation Not on file documented as of this encounter Plan of Treatment Not on file documented as of this encounter Visit Diagnoses Diagnosis Ingrowing nail- Primary documented in this encounter Care Teams Director Of Primary Care Relationship Specialty Start Date End Date Roshan Jimenez DO NO ADDRESS ON FILE PCP - General 03/26/03 documented as of this encounter
--- OUTSIDE RECORDS SUMMARY | 2025-06-01 21:37 | XMS_ITS | Encounter Summary ---
Author Organization [facility] Address [address] [place] [address] Care Team Providers Care Folding Machine Tender Name Role Phone Roshan Jimenez DO Primary Care Provider Unav ailable Encounter Details Date Type Department Care Team (Latest Contact Info) Description 02/12/2001 Outpatient [facility] [address] [place] [address] Roshan Jimenez DO NO ADDRESS ON FILE Unspecified asthma(493.90) (Primary Dx); Chronic airway obstruction, not elsewhere classified (CMS/[facility]) Social History Tobacco Use Types Packs/Day Years Used Date Smoking Tobacco: Never Assessed Sex and Gender Information Value Date Recorded Sex Assigned at Not on file Legal Sex Male 4:59 AM IMAGING ADMINISTRATOR Gender Identity Not on file Sexual Orientation Not on file documented as of this encounter Plan of Treatment Not on file documented as of this encounter Visit Diagnoses Diagnosis Unspecified asthma(493.90)- Primary Unspecified asthma Chronic airway obstruction, not elsewhere classified (CMS/HCC) Chronic airway obstruction, not elsewhere classified documented in this encounter Care Teams Folding Machine Tender Relationship Specialty Start Date End Date Roshan Jimenez DO NO ADDRESS ON FILE PCP - General 03/26/03 documented as of this encounter
--- OUTSIDE RECORDS SUMMARY | 2025-06-01 21:37 | XMS_ITS | Encounter Summary ---
Author Organization [facility] Address [address] [place] [address] Care Team Providers Care Cableway Operator Name Role Phone Roshan Jimenez DO Primary Care Provider Unav ailable Encounter Details Date Type Department Care Team (Late st Contact Info) Description 04/02/2000 Outpatient Historical [facility] [address] [place] [address] [place] [phone] Social History Tobacco Use Types Packs/Day Years Used Date Smoking Tobacco: Never Assessed Sex and Gender Information Value Date Recorded Sex Assigned at Not on file Legal Sex Male 4:59 AM LAPIDARY APPRENTICE Gender Identity Not on file Sexual Orientation Not on file documented as of this encounter Plan of Treatment Not on file documented as of this encounter Visit Diagnoses Not on filedocumented in this encounter Care Teams Cableway Operator Relationship Specialty Start Date End Date Roshan Jimenez DO NO ADDRESS ON FILE PCP - General 03/26/03 documented as of this encounter
--- OUTSIDE RECORDS SUMMARY | 2025-06-01 21:37 | XMS_ITS | Encounter Summary ---
Author Organization [facility] Address [address] [place] [address] Care Team Providers Care Information Management Specialist Name Role Phone Roshan Jimenez DO Primary Care Provider Unav ailable Encounter Details Date Type Department Care Team (Latest Contact Info) Description 12/25/2000 Outpatient [facility] [address] [place] [address] Roshan Jimenez DO NO ADDRESS ON FILE Obstructive chronic bronchitis with exacerbation (CMS/HCC) (Primary Dx); Unspecified chronic bronchitis (CMS/HCC); Unspecified sleep apnea; Obesity, unspecified Social History Tobacco Use Types Packs/Day Years Used Date Smoking Tobacco: Never Assessed Sex and Gender Information Value Date Recorded Sex Assigned at Not on file 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 Gender Identity Not on file Sexual Orientation Not on file documented as of this encounter Plan of Treatment Not on file documented as of this encounter Visit Diagnoses Diagnosis Obstructive chronic bronchitis with exacerbation (CMS/HCC)- Primary Obstructive chronic bronchitis with exacerbation Unspecified chronic bronchitis (CMS/HCC) Unspecified chronic bronchitis Unspecified sleep apnea Obesity, unspecified documented in this encounter Care Teams Information Management Specialist Relationship Specialty Start Date End Date Roshan Jimenez DO NO ADDRESS ON FILE PCP - General 03/26/03 documented as of this encounter
--- OUTSIDE RECORDS SUMMARY | 2025-06-01 21:37 | XMS_ITS | Encounter Summary ---
Author Organization [facility] Address [address] [place] [address] Care Team Providers Care Compliance Project Manager Name Role Phone Roshan Jimenez DO Primary Care Provider Unav ailable Encounter Details Date Type Department Care Team (Latest Contact Info) Description 05/17/2000 Outpatient Historical [facility] [address] [place] [address] [place] [phone] eMrlin Reilly MD NO ADDRESS ON FILE Hypersomnia with sleep apnea, unspecified (Primary Dx) Social History Tobacco Use Types Packs/Day Years Used Date Smoking Tobacco: Never Assessed Sex and Gender Information Value Date Recorded Sex Assigned at Not on file 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
--- OUTSIDE RECORDS SUMMARY | 2025-06-01 21:37 | XMS_ITS | Encounter Summary ---
Author Organization [facility] Address [address] [place] [address] Care Team Providers Care Solar Sales Assessor Name Role Phone Roshan Jimenez DO Primary Care Provider Unav ailable Encounter Details Date Type Department Care Team (Latest Contact Info) Description 01/30/2002 Outpatient [facility] [address] [place] [address] Roshan Jimenez DO NO ADDRESS ON FILE CHRONIC AIRWAY OBSTRUCTION NEC ([facility]) (Primary Dx); HYPERTENSION NOS; OTHER UNSPEC SLEEP APNEA; OSTEOARTHROS NOS-UNSPEC Social History Tobacco Use Types Packs/Day Years Used Date Smoking Tobacco: Never Assessed Sex and Gender Information Value Date Recorded Sex Assigned at Not on file 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 Gender Identity Not on file Sexual Orientation Not on file documented as of this encounter Plan of Treatment Not on file documented as of this encounter Visit Diagnoses Diagnosis Chronic airway obstruction, not elsewhere classified ([facility]/HCC)- Primary Chronic airway obstruction, not elsewhere classified Unspecified essential hypertension Unspecified sleep apnea Osteoarthrosis, unspecified whether generalized or localized, unspecified site documented in this encounter Care Teams Solar Sales Assessor Relationship Specialty Start Date End Date Roshan Jimenez DO NO ADDRESS ON FILE PCP - General 03/26/03 documented as of this encounter
--- OUTSIDE RECORDS SUMMARY | 2025-06-01 21:37 | XMS_ITS | Encounter Summary ---
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
--- OUTSIDE RECORDS SUMMARY | 2025-06-01 21:37 | XMS_ITS | Encounter Summary ---
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
--- OUTSIDE RECORDS SUMMARY | 2025-06-01 21:37 | XMS_ITS | Encounter Summary ---
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
--- OUTSIDE RECORDS SUMMARY | 2025-06-01 21:37 | XMS_ITS | Encounter Summary ---
Author Organization [facility] Address [address] [place] [address] Care Team Providers Care Appellate Court Judge Name Role Phone Roshan Jimenez DO Primary Care Provider Unav ailable Encounter Details Date Type Department Care Team (Latest Contact Info) Description 12/08/2000 Outpatient [facility] [address] [place] [phone] Roshan Jimenez DO NO ADDRESS ON FILE Anxiety state, unspecified (Primary Dx); Depressive disorder, not elsewhere classified; Acute bronchitis; Chronic airway obstruction, not elsewhere classified (CMS/HCC) Social History Tobacco Use Types Packs/Day Years Used Date Smoking Tobacco: Never Assessed Sex and Gender Information Value Date Recorded Sex Assigned at Not on file 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
--- OUTSIDE RECORDS SUMMARY | 2025-06-01 21:37 | XMS_ITS | Encounter Summary ---
Author Organization [facility] Address [address] [place] [address] Care Team Providers Care Buildings And Grounds Superintendent Name Role Phone Roshan Jimenez DO Primary Care Provider Unav ailable Encounter Details Date Type Department Care Team (Latest Contact Info) Description 07/15/2002 Outpatient [facility] [address] [place] [address] Roshan Jimenez DO NO ADDRESS ON FILE OBSTR CHR BRONCHITIS W AC EXACERB (CMS/HCC) (Primary Dx); HYPERTENSION NOS Social History Tobacco Use Types Packs/Day Years Used Date Smoking Tobacco: Never Assessed Sex and Gender Information Value Date Recorded Sex Assigned at Not on file 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
--- OUTSIDE RECORDS SUMMARY | 2025-06-01 21:37 | XMS_ITS | Encounter Summary ---
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
--- OUTSIDE RECORDS SUMMARY | 2025-06-01 21:37 | XMS_ITS | Encounter Summary ---
Author Organization [facility] Address [address] [place] [address] Care Team Providers Care Data Center Consultant Name Role Phone Roshan Jimenez DO Primary Care Provider Unav ailable Encounter Details Date Type Department Care Team (Latest Contact Info) Description 07/06/2000 Outpatient Historical [facility]- [facility] [address] [place] [phone] Irineo Snyder MD NO ADDRESS ON FILE Hidradenitis (Primary Dx); Benign miguel skin trunk Social History Tobacco Use Types Packs/Day Years Used Date Smoking Tobacco: Never Assessed Sex and Gender Information Value Date Recorded Sex Assigned at Not on file 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
--- OUTSIDE RECORDS SUMMARY | 2025-06-01 21:37 | XMS_ITS | Encounter Summary ---
Author Organization [facility] Address [address] [place] [address] Care Team Providers Care Medical Research Tech Name Role Phone Roshan Jimenez DO Primary Care Provider Unav ailable Encounter Details Date Type Department Care Team (Latest Contact Info) Description 02/15/2005 Outpatient [facility] [phone] [place] [id number] Roshan Jimenez DO NO ADDRESS ON FILE CHRONIC AIRWAY OBSTRUCTION NEC ([facility]) (Primary Dx); OBESITY NOS; HYPERTENSION NOS; OTHER UNSPEC SLEEP APNEA Social History Tobacco Use Types Packs/Day Years Used Date Smoking Tobacco: Never Assessed Sex and Gender Information Value Date Recorded Sex Assigned at Not on file 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 Gender Identity Not on file Sexual Orientation Not on file documented as of this encounter Plan of Treatment Not on file documented as of this encounter Visit Diagnoses Diagnosis Chronic airway obstruction, not elsewhere classified ([facility])- Primary Chronic airway obstruction, not elsewhere classified Obesity, unspecified Unspecified essential hypertension Unspecified sleep apnea documented in this encounter Care Teams Medical Research Tech Relationship Specialty Start Date End Date Roshan Jimenez DO NO ADDRESS ON FILE PCP - General 03/26/03 documented as of this encounter
--- OUTSIDE RECORDS SUMMARY | 2025-06-01 21:37 | XMS_ITS | Encounter Summary ---
Author Organization [facility] Address [address] [place] [address] Care Team Providers Care Bight Maker Name Role Phone Roshan Jimenez DO Primary Care Provider Unav ailable Encounter Details Date Type Department Care Team (Latest Contact Info) Description 05/30/2002 Outpatient [facility] [phone] [place] [address] Roshan Jimenez DO NO ADDRESS ON FILE CHRONIC AIRWAY OBSTRUCTION NEC (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)- Primary Chronic airway obstruction, not elsewhere classified Obesity, unspecified Lumbago Need vaccination-viral disease Need for prophylactic vaccination and inoculation against other viral diseases documented in this encounter Care Teams Bight Maker Relationship Specialty Start Date End Date Roshan Jimenez DO NO ADDRESS ON FILE PCP - General 03/26/03 documented as of this encounter
--- OUTSIDE RECORDS SUMMARY | 2025-06-01 21:37 | XMS_ITS | Encounter Summary ---
Author Organization [facility] Address [address] [place] [address] Care Team Providers Care Sql Architect Name Role Phone Roshan Jimenez DO Primary Care Provider Unav ailable Encounter Details Date Type Department Care Team (Latest Contact Info) Description 05/29/2001 Outpatient [facility] [phone] [place] [id number] Roshan Jimenez DO NO ADDRESS ON FILE Unspecified essential hypertension (Primary Dx); Depressive disorder, not elsewhere classified; Chronic airway obstruction, not elsewhere classified (CMS/HCC) Social History Tobacco Use Types Packs/Day Years Used Date Smoking Tobacco: Never Assessed Sex and Gender Information Value Date Recorded Sex Assigned at Not on file 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
--- OUTSIDE RECORDS SUMMARY | 2025-06-01 21:37 | XMS_ITS | Encounter Summary ---
Author Organization [facility] Address [address] [place] [address] Care Team Providers Care Internal Sales Name Role Phone Roshan Jimenez DO Primary Care Provider Unav ailable Encounter Details Date Type Department Care Team (Latest Contact Info) Description 11/13/2002 Outpatient [facility] Podiatry-Stevo Bal Aaron [address] [place] [address] Noé Rosa, DPM [address] [place] [address] Onychia of toe (Primary Dx); INGROWING NAIL Social History Tobacco Use Types Packs/Day Years Used Date Smoking Tobacco: Never Assessed Sex and Gender Information Value Date Recorded Sex Assigned at Not on file 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
--- OUTSIDE RECORDS SUMMARY | 2025-06-01 21:37 | XMS_ITS | Encounter Summary ---
Author Organization [facility] Address [address] [place] [address] Care Team Providers Care Jig Mill Operator Name Role Phone Roshan Jimenez DO Primary Care Provider Unav ailable Encounter Details Date Type Department Care Team (Latest Contact Info) Description 01/01/2001 Outpatient [facility] [phone] [place] [address] Roshan Jimenez DO NO ADDRESS ON FILE Obstructive chronic bronchitis with exacerbation (CMS/HCC) (Primary Dx); Depressive disorder, not elsewhere classified; Edema; Unspecified essential hypertension Social History Tobacco Use Types Packs/Day Years Used Date Smoking Tobacco: Never Assessed Sex and Gender Information Value Date Recorded Sex Assigned at Not on file 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
--- OUTSIDE RECORDS SUMMARY | 2025-06-01 21:37 | XMS_ITS | Clinical Summary ---
Author Organization [facility] Stevo melo Aaron Address [address] [place] [address] Phone Care Team Providers Care Roll Up Guider Operator Name Role Phone Unavailable Primary Care Provider Unavailabl e Allergies Active Allergy Reactions Criticality Noted Date Comments Broccoli Nausea and Vomiting Low 02/14/2025 Per [facility] paperwork Medications fluticasone-umec lidinium-vilante rol (Trelegy Ellipta) [...] ns:Asthma with chronic obstructive pulmonary disease (COPD) TAKE [...] (40 mg) by mouth daily before breakfast. 06/26/202 5 Active potassium CHLORIDE (KLOR-CON) 10 mEq Extended [...] Encounters Date Type Department Care Team Description 05/18/2025 - 05/18/2025 11:59 PM CDT Hospital Encounter [facility] [address] [place] [phone] Ambulance, Psychiatric Discharge Disposition: [facility] 05/13/2025 9:30 AM CDT - 05/13/2025 11:59 PM CDT Hospital Encounter [facility] [address] [place] [address] Ambulance, Psychiatric Discharge Disposition: [facility] 05/01/2025 Orders Only [facility] [place] [address] [place] [address] Tiago Ryan MD Irritable bowel syndrome with diarrhea (Primary Dx); Chronic diarrhea 04/05/2025 2:15 PM CDT - 04/05/2025 11:59 PM CDT Hospital Encounter [facility] [address] [phone] Ambulance, Psychiatric Discharge Disposition: [facility] 04/01/2025 10:00 AM CDT Office Visit [facility] [address] [facility] [address] [place] [phone] Dane Sierra MD Farmer, Sarah, FNP History of ST elevation myocardial infarction (STEMI) (Primary Dx); Benign hypertension; Paroxysmal atrial fibrillation with rapid ventricular response (CMS/HCC); Mixed hyperlipidemia; Ischemic dilated cardiomyopathy (CMS/HCC); Other iron deficiency anemia 03/27/2025 12:25 AM CDT - 03/27/2025 11:59 PM CDT Hospital Encounter [facility] [address] [address] Ambulance, Psychiatric Jean-Pierre Pappas MD Discharge Disposition: Intermediate Care Facility 03/26/2025 9:54 AM CDT Anesthesia Event [facility] Endoscopy [address] [facility] [place] [place] [phone] Grzegorz Arteaga MD Bell, Leslie, CRNA 03/26/2025 9:20 AM CDT - 03/26/2025 9:40 AM CDT Surgery [facility] Endoscopy [address] [place] [phone] Tiago Ryan MD ESOPHAGOGASTRODUODENOSCOPY 03/25/2025 External Device Data ST[facility] ABSTRACTION Provider, Abstract 03/25/2025 External Device Data [facility] ABSTRACTION Provider, Abstract 03/25/2025 External Device Data [facility] ABSTRACTION Provider, Abstract 03/22/2025 3:21 AM CDT - 03/27/2025 7:10 PM CDT Hospital Encounter [facility] 4A Cardiac [address] [place] [address] Bandar Parsons MD Sundaram, MD Jose Sandoval III, DO John Sorto Saroj, MD Haq, MD Elyse Hinkle, Jean-Pierre Prieto MD Acute on chronic combined systolic and diastolic heart failure Discharge Disposition: Medicaid Nursing Facility 03/21/2025 - 03/21/2025 11:59 PM CDT Hospital Encounter [facility] [address] [phone] [facility] Discharge Disposition: [facility] 03/21/2025 Travel 03/18/2025 External Device Data STL ABSTRACTION Provider, Abstract 03/04/2025 12:30 AM CDT - 03/04/2025 11:59 PM CDT Hospital Encounter [facility] [address] [phone] [facility] Discharge Disposition: [facility] from Last 3 Months Immunizations Immunization Administration [...] on file Legal Sex Male 12:11 AM GRAPPLER Gender Identity Not on file Sexual Orientation [...] st Contact Info) Description 07/09/2025 10:20 AM GRAPPLER Office Visit [facility] [address] [facility] [address] [place] [phone] Saritha Horton, [facility] [address] [facility] [address] [place] [address] 10/24/2025 10:45 AM GRAPPLER Office Visit [facility] [address] [facility] [address] [place] [phone] Dane Sierra MD [address] [facility] [address] [place] [address] Health Maintenance Due Date Last Done [...] Cancer Screening 07/11/2023 INFLUENZA VACCINE (#1) 2025 , 05/11/2022, 05/11/2022, Additional history exists COVID-19 Vaccine (2024-2 6 season) 2025 06/06/2023, 05/18/2022, 11/03/2021, Additional history exists ZOSTER VACCINE Completed 11/26/2018, 09/24/2018 PNEUMOCOCCAL VACCINE 50+ YEARS Completed 1 09/19/2019, 07/20/2020, 06/01/2019, Additional history exists Medical Devices Implanted Type Area Material Man Device Identifier Shelf Expiration Date Model / Serial / Lot Stent Jayy Everett Santiago 4.0x38mm Rx [id number] - [id number] Implanted:Qty: 1 on 02/14/2025 by Geronimo, Fiberglass Product Tester () MD [facility] at [facility] Stent N/A: Coronary [employer] [id number] 02/19/2027 [id number] / / [id number] Procedures Procedure Name Priority Date/Time Associated [...] URINE Routine 2024 2:47 PM CDT DIRECTOR OF PRODUCT DESIGN EVALUATE AND TREAT Routine 11:23 AM CDT [...] 10:18 PM CDT BRAIN NATRIURETIC PEPTIDE, B HI LIFT OPERATOR OR PROBNP Stat 03/21/2025 10:18 PM CDT COMPREHENSIVE METABOLIC PANEL Stat 10:18 PM CDT CBC WITH DIFFERENTIAL Stat 03/21/2025 10:18 PM CDT EKG 12-LEAD Stat 03/21/2025 10:11 PM CDT ENDOSCOPY, COLON, SCREENING Routine 06/28 12:39 PM GRAPPLER from Last 3 Months or Most Recently Relevant to Health Maintenance Results * TELEMETRY REPORT (03/28/2025 9:55 AM CDT) us Provider Scanning ECG ORDERABLES Final Result * (ABNORMAL) BASIC METABOLIC PANEL (03/27/2025 4:40 AM CDT) Only the most recent of5 resultswithin the time period is included. SODIUM 140 136 - 145 mmol/L 03/27/2025 5:46 AM CDT [facility] POTASSIUM 4.2 3.5 - 5.1 mmol/L 03/27/2025 5:46 AM T [facility] Comment:Moderate hemolysis p resent. Can cause significant falsely elevated result. Redraw if indicated. CHLORIDE 101 98 - 107 mmol/L 03/27/2025 5:46 AM T [facility] CO2 32(H) 22 - 29 mmol/L 03/27/2025 5:46 AM T [facility] CALCIUM 8.1(L) 8.8 - 10.2 mg/dL 03/27/2025 5:46 AM T [facility] BUN 10 8 - 23 mg/dL 03/27/2025 5:46 AM T [facility] CREATININE 0.67 0.67 - 1.17 mg/dL 03/27/2025 5:46 AM T [facility] Comment:The GFR result is no t clinically significant on patients <18 or >70 years of age. GLUCOSE 92 74 - 99 mg/dL 03/27/2025 5:46 AM T [facility] GFR >60 mL/min/1.7 3 sq meter 03/27/2025 5:46 AM T [facility] Comment:eGFR calculated with 2020 CKD-EPI equation. Vegetarian diet, extremely high or low muscle mass, and may affect results. Cystatin C with Glomerular Filtration Rate is a suitable alternative for these patients. ANION GAP 7(L) 9 - 20 mmol/L 03/27/2025 5:46 AM CDT [facility] Blood Venipuncture / Unknown 03/27/2025 4:40 AM CDT 03/27/2025 5:07 AM CDT us Adilene Trinh HI LIFT OPERATOR CHEMISTRY ORDERABLES Final Re sult Performing Organization Address [facility] Co de Phone Number [facility] CLIA # [id number] [address] [address] [place] [address] * VANCOMYCIN LEVEL TROUGH (03/26/2025 12:44 PM CDT) VANCOMYCIN, TROUGH 10.6 10.0 - 17.0 ug/mL 03/26/2025 1:24 PM CDT [facility] Blood Venipuncture / Unknown 03/26/2025 12:44 PM CDT 03/26/2025 12:52 PM CDT us Arin Koroma MD CHEMISTRY ORDERABLES Final Resul t Performing Organization Address [facility] de Phone Number [facility] CLIA # [id number] [address] [address] * UPPER ENDOSCOPY REPORT (03/26/2025 10:15 AM CDT) Narrative Procedure Note Tiago Ryan MD - 03/26/2025 10:15 AM CDT [facility] GI Patient Name: Isreal Arguello Procedure [...] Time Scope In: Scope Out: [address] [place] Tiago Ryan MD GI PROCEDURE ORDERABLES F inal Result * PATHOLOGY (03/26/2025 10:04 AM CDT) CASE REPORT Surgical Pathology Report Case: [id number] Authorizing Provider: Tiago Ryan MD Collected: 03/26/2025 10:04 AM Ordering Location: [facility] Received: 03/26/2025 01:42 PM Endoscopy Pathologist: Marialuisa Lazcano MD Specimens: A) - Stomach B) - Small Intestine, duodenum 9:52 AM T [facility] FINAL DIAGNOSIS A. Stomach, biopsy - Mild chronic gastritis - An immunohistochemical stain for H. pylori was performed on block A1 and is negative / B. Small intestine, duodenum, biopsy - Small intestinal mucosa with increased intraepithelial lymphocytes and preserved villous architecture, see comment Marialuisa Lazcano MD [id number] 9:52 AM T [facility] at 0952 CDT DIAGNOSIS COMMENT A. No [...] serologic correlation is recommended. 9:52 AM T [facility] GROSS DESCRIPTION A. Received in a container [...] B1. Grossed by: Angeline Andrade MS, PA ([facility])DANIA 9:52 AM T [facility] OPERATIVE PROCEDURE 1: ESOPHAGOGASTRODUODENOSCO PY 9:52 AM T [facility] CLINICAL INFORMATION R/o H Pylori 9:52 AM CDT [facility] COMMENT The Mor[employer] voice-activated dictation system may have been used [...] determined by the Diagnostic Immunohistochemistry Laboratory of [facility] in compliance with CLIA'88 regulations. Some of these tests rely on the use of analyte specific reagents and are subject to specific labeling requirements by the FDA. All controls show appropriate reactivity. This testing was developed by the Diagnostic Immunohistochemistry Laboratory of [facility]. It has not been cleared or approved by the FDA. The FDA has determined that such clearance or approval is not necessary. 9:52 AM CDT [facility] Tissue ENTIRE STOMACH / Unknown Collection / Unknown 03/26/2025 10:04 AM CDT 03/26/2025 1:42 PM CDT Comment:R/o H Pylori Tissue specimen (specimen) (Small Intestine) Collection / Unknown 03/26/2025 10:04 AM CDT 03/26/2025 1:42 PM CDT Comment:R/O Celiac Sprue Tiago Ryan MD PATHOLOGY/CYTOLOGY ORDERA BLES Final Result [facility] CLIA # [id number] [address] [place] [address] * (ABNORMAL) HEMOGLOBIN AND HEMATOCRIT (03/26/2025 8:46 AM CDT) Only the most recent of3 resultswithin the time period is included. HEMOGLOBIN 7.4(L) 14.0 - 18.0 g/dL 03/26/2025 9:05 AM CDT [facility] HEMATOCRIT 26.3(L) 41.0 - 53.0 % 03/26/2025 9:05 AM CDT [facility] Blood Venipuncture / Unknown 03/26/2025 8:46 AM CDT 03/26/2025 8:57 AM CDT us Arin Koroma MD HEMATOLOGY ORDERABLES Final Resu lt [facility] CLIA # [id number] [facility] [address] [place] [address] * (ABNORMAL) CBC WITH DIFFERENTIAL (03/26/2025 2:06 AM CDT) Only the most recent of5 resultswithin the time period is included. WBC 11.4(H) 4.8 - 10.8 K/uL 03/26/2025 2:18 AM CDT [facility] RBC 2.95(L) 4.60 - 6.20 M/uL 03/26/2025 2:18 AM CDT [facility] HEMOGLOBIN 7.3(L) 14.0 - 18.0 g/dL 03/26/2025 2:18 AM T [facility] HEMATOCRIT 25.6(L) 41.0 - 53.0 % 03/26/2025 2:18 AM CDT [facility] MCV 86.8 84.0 - 103.0 fL 03/26/2025 2:18 AM CDT [facility] MCH 24.7(L) 27.0 - 34.0 pg 03/26/2025 2:18 AM CDT [facility] MCHC 28.5(L) 30.0 - 35.0 g/dL 03/26/2025 2:18 AM CDT [facility] PLATELETS 399 140 - 440 K/uL 03/26/2025 2:18 AM CDT [facility] MPV 9.2 8.9 - 12.8 fL 03/26/2025 2:18 AM CDT [facility] RDW 18.6(H) 11.0 - 14.5 % 03/26/2025 2:18 AM [facility] RDW-STDEV 58.7(H) 37.0 - 54.0 fL 03/26/2025 2:18 AM [facility] NEUTROPHILS 79(H) 42 - 75 % 03/26/2025 2:18 AM [facility] LYMPHOCYTES 11(L) 24 - 44 % 03/26/2025 2:18 AM [facility] MONOCYTES 7 2 - 10 % 03/26/2025 2:18 AM [facility] EOSINOPHILS 2 0 - 7 % 03/26/2025 2:18 AM [facility] BASOPHILS 1 0 - 1 % 03/26/2025 2:18 AM [facility] IMMATURE GRANULOCYTES 1 0 - 2 % 03/26/2025 2:18 AM [facility] NEUTROPHIL ABSOLUTE 8.93(H) 2.00 - 8.00 K/uL 03/26/2025 2:18 AM [facility] LYMPHOCYTE ABSOLUTE 1.19(L) 1.20 - 4.00 K/uL 03/26/2025 2:18 AM [facility] MONOCYTE ABSOLUTE 0.84(H) 0.10 - 0.60 K/uL 03/26/2025 2:18 AM [facility] EOSINOPHIL ABSOLUTE 0.21 0.00 - 0.70 K/uL 03/26/2025 2:18 AM [facility] BASOPHILS ABSOLUTE 0.06 0.00 - 0.20 K/uL 03/26/2025 2:18 AM [facility] IMMATURE GRANULOCYTES ABSOLUTE 0.15(H) 0.00 - 0.10 K/uL 03/26/2025 2:18 AM [facility] SMEAR REVIEWED: NA - Not Applicable 03/26/2025 2:18 AM [facility] Blood Venipuncture / Unknown 03/26/2025 2:06 AM CDT 03/26/2025 2:09 AM CDT Adilene Trinh HI LIFT OPERATOR HEMATOLOGY ORDERABLES Final R esult Performing Organization Address City/[facility]/ZIP Co de Phone Number [facility] CLIA # [id number] [address] [place], [place] [address] * LEGIONELLA ANTIGEN, URINE (03/25/2025 2:47 PM CDT) Pathologist [facility] Emergency Department LEGIONELLA AG, URINE NOT DETECTED Not Detected 03/25/2025 3:56 PM CDT [facility] Urine URINE SPECIMEN OBTAINED BY CLEAN CATCH PROCEDURE / Unknown Collection / Unknown 03/25/2025 2:47 PM CDT 03/25/2025 2:52 PM CDT Narrative [facility] - 03/25/2025 3:56 PM CDT This test [...] ORDERABLE S Final Result Performing Organization Address City/[facility] Co de Phone Number [facility] CLIA # [id number] [address] [place] [address] * STREPTOCOCCUS PNEUMONIAE ANTIGEN (03/25/2025 2:47 PM CDT) [facility] STREPTOCOCCUS PNEUMONIAE AG NOT DETECTED Not Detected 03/25/2025 3:55 PM CDT [facility] Urine URINE SPECIMEN OBTAINED BY CLEAN CATCH PROCEDURE / Unknown Collection / Unknown 03/25/2025 2:47 PM CDT 03/25/2025 2:52 PM CDT Arin Koroma MD MICROBIOLOGY - GENERAL ORDERABLE S Final Result Performing Organization Address [facility]/ZIP Co de Phone Number [facility] CLIA # [id number] [id number] [place] [address] * PERIPHERAL BLOOD SMEAR PATHOLOGY INTERP (03/25/2025 5:01 AM CDT) [facility] PERIPHERAL BLOOD SMEAR INTERP See Interpretation Below 03/26/2025 11:26 AM CDT [facility] [employer] [facility] INTERPRETED BY: Axel Keating MD 03/26/2025 11:26 AM CDT [facility] Blood Venipuncture / Unknown 03/25/2025 5:01 AM CDT 03/25/2025 5:18 AM CDT Narrative [facility] [employer] [facility] - 03/26/2025 11:26 AM [...] ORDERABLES Final Resu lt Performing Organization Address [facility]/ZIP Co de Phone Number [facility] CLIA # [id number] [address] [address] * POC GLUCOSE (03/24/2025 1:01 PM CDT) Only the most recent of7 resultswithin the time period is included. [facility] GLUCOSE POC 90 74 - 99 mg/dL 03/24/2025 1:01 PM CDT [facility] SPECIMEN SOURCE, GLUCOSE POC Capillary 03/24/2025 1:01 PM CDT [facility] Blood, whole 03/24/2025 1:01 PM CDT 03/24/2025 1:10 PM CDT us Cal Garcia III, DO POINT OF CARE TESTING Fin al Result [facility] CLIA # [id number] [address] [place], [place] [id number] * TRANSFUSE EMERGENCY RELEASE/DOWNTIME RED BLOOD CELLS (03/24/2025 12:50 PM CDT) us Cal Garcia III, DO BLOOD TRANSFUSION ORDERAB LES Final Result * (ABNORMAL) MRSA PCR RAPID SCREEN (03/24/2025 9:28 AM CDT) [facility] MRSA PCR RESULT MRSA detected( A) MRSA not detected 03/24/2025 10:44 AM CDT [facility] Surveillance ANTERIOR NARES SWAB / Unknown Collection / Unknown 03/24/2025 9:28 AM CDT 03/24/2025 9:31 AM CDT Narrative [facility] - 03/24/2025 10:44 AM CDT Positive MRSA called to Susy Berkowitz RN by Jose L Vega on 03/24/2025 at 10:43 AM with verbal readback. us Adilene Trinh NP MICROBIOLOGY - GENERAL ORDERA BLES Final Result [facility] CLIA # [id number] [address] [place], [place] [address] * MAGNESIUM LEVEL (03/24/2025 4:41 AM CDT) MAGNESIUM 2.4 1.6 - 2.4 mg/dL 03/24/2025 5:43 AM CDT [facility] Blood Venipuncture / Unknown 03/24/2025 4:41 AM CDT 03/24/2025 5:00 AM CDT Azul Wilkerson HI LIFT OPERATOR CHEMISTRY ORDERABLES Final Re sult [facility] CLIA # [id number] [id number] [place] [address] * CORTISOL LEVEL (03/24/2025 4:41 AM CDT) CORTISOL LEVEL 13.5 ug/dL 03/24/2025 5:43 AM CDT [facility] Comment: Cortisol Reference Range Morning Hours 6-10 a.m. 6.0-18.4 ug/dL Afternoon Hours 4-8 p.m. 2.7-10.5 ug/dL Blood Venipuncture / Unknown 03/24/2025 4:41 AM CDT 03/24/2025 5:00 AM CDT us Azul Wilkerson HI LIFT OPERATOR CHEMISTRY ORDERABLES Final Re sult Performing Organization Address City/[facility]/ZIP Co de Phone Number [facility] CLIA # [id number] [address] [place], [place] [address] * VANCOMYCIN LEVEL RANDOM (03/24/2025 4:41 AM CDT) Pathologist [facility] VANCOMYCIN, RANDOM 10.2 5.0 - 50.0 ug/mL 03/24/2025 5:43 AM CDT [facility] Blood Venipuncture / Unknown 03/24/2025 4:41 AM CDT 03/24/2025 5:00 AM CDT Narrative [facility] - 03/24/2025 5:43 AM CDT Vancomycin Therapeutic Ranges: Vancomycin Trough: 10 - 20 mcg/mL Vancomycin Peak: 25 - 50 mcg/mL us Jaime Ruggiero MD CHEMISTRY ORDERABLES Final R esult Performing Organization Address [facility] Co de Phone Number [facility] CLIA # [id number] [address] [facility] [place] [address] * BLOOD CULTURE (03/23/2025 10:03 PM CDT) Only the most recent of2 resultswithin the time period is included. [facility] BLOOD CULTURE No growth 03/29/2025 3:34 AM CDT [facility] Blood (Peripheral) Venipuncture / Unknown 03/23/2025 10:03 PM CDT 03/23/2025 10:06 PM CDT On license of [facility] [employer] [facility] - 03/29/2025 3:34 AM CDT Specimen processed with suboptimal blood volume collected. us Tequila Nobles MD MICROBIOLOGY - GENERAL ORDERABLES Final Result Performing Organization Address [facility] Co de Phone Number [facility] CLIA # [id number] [address] [facility] [place] [address] * RESPIRATORY PATHOGEN PCR PANEL (03/23/2025 1:59 PM CDT) [facility] Respiratory Pathogen PCR Panel NOT DETECTED No respiratory pathogen nucleic acids detected. 03/23/2025 3:25 PM CDT [facility] COVID-19 PCR NOT DETECTED Not Detected 03/23/2025 3:25 PM CDT [facility] Upper Respiratory ENTIRE NASOPHARYNX / Unknown Collection / Unknown 03/23/2025 1:59 PM CDT 03/23/2025 2:09 PM CDT On license of [facility] [employer] [facility] - 03/23/2025 3:25 PM [...] pertussis Bordetella parapertussis Chlamydophila pneumoniae Mycoplasma pneumoniae us Azul Wilkerson NP MICROBIOLOGY - GENERAL ORDERA BLES Final Result [facility] CLIA # [id number] [address] [place] [address] * ECHOCARDIOGRAM W/ CONTRAST AGENT (03/23/2025 10:23 AM CDT) EJECTION FRACTION 31 INTERFACE SYSTEM 03/23/2025 9:35 AM CDT [employer] - 03/23/2025 11:19 AM CDT [facility] Cardiovascular Services Echocardiography Laboratory [address] [place] [address] Transthoracic Echocardiography Patient: Isreal Arguello Study ID: ECHO COMPLETE - R Gender: M : 1950 Age: 74 Room: [facility] Study 03/23/2025 Pt Inpatient Date: Status: Study 09:35:52 AM CSN #: [id number] Time: Ordering:Azul Wilkerson (student) Consumer Relations Complaint Clerk: Angeline Silva Indications and History: Chest pain. [...] cm AAo AP diam, S 3.3 cm WLIL minor ax, A4C 3.0 cm AAo AP diam/bsa, S 1.2 cm/m^2 WILL 2.9 cm Legend: (L) and (H) odalis values outside specified reference range. [facility] Echo Labs are accredited with the Intersocietal Accreditation Commission - Echocardiography. Prepared and Electronically Authenticated Jose Smith MD Confirmed 03/23/2025 11:19 Procedure Note Jose Smith MD - 03/23/2025 [facility] Cardiovascular Services Echocardiography Laboratory [address] [place] [address] Transthoracic Echocardiography Patient: Isreal Arguello Study ID: ECHO COMPLETE- R Gender: M : 1950 Age: 74 Room: [facility] Study 03/23/2025 Pt Inpatient Date: Status: Study 09:35:52 AM [facility] #: [id number] Time: Ordering:Azul Wilkerson (student) Consumer Relations Complaint Clerk: Angeline Silva Indications and History: Chest pain. [...] (H) odalis values outside specified reference range. [facility] Echo Labs are accredited with theIntersocietal Accreditation Commission - Echocardiography. Prepared and Electronically Authenticated Jose Smith MD Confirmed 03/23/2025 11:19 us Azul Wilkerson NP US ORDERABLES Final Result Performing Organization Address City/[facility]/ZIP Co de Phone Number INTERFACE SYSTEM Refer to clinic/hospital department * (ABNORMAL) AMMONIA LEVEL (03/23/2025 9:23 AM CDT) AMMONIA 15.5(L) 16.0 - 60.0 umol/L 03/23/2025 9:53 AM CDT [facility] Blood, venous Venipuncture / Unknown 03/23/2025 9:23 AM CDT 03/23/2025 9:27 AM CDT Azul Wilkerson NP CHEMISTRY ORDERABLES Final Re sult Performing Organization Address [facility]/ZIP Co de Phone Number [facility] CLIA # [id number] [address] [address] [place] [address] * XR CHEST PA OR AP 1 [...] 2.0 <=2.0 mmol/L 03/23/2025 7:08 AM CDT [facility] SPECIMEN SOURCE, GASES POC Arterial 03/23/2025 7:08 AM CDT [facility] SITE POC ART PUNCT 03/23/2025 7:08 AM CDT [facility] Blood 03/23/2025 7:08 AM CDT 03/23/2025 7:11 AM T [facility] - 03/23/2025 7:08 AM CDT References ranges displayed are for Arterial samples. us Cal Garcia III, DO POINT OF CARE TESTING Xiang lu Result [facility] CLIA # [id number] [address] [place] [address] * (ABNORMAL) BLOOD GAS ARTERIAL (03/23/2025 7:08 AM CDT) Only the most recent of3 resultswithin the time period is included. PH BLOOD POC 7.43 7.35 - 7.45 03/23/2025 7:08 AM [facility] PCO2 POC 55(H) 35 - 45 mm Hg 03/23/2025 7:08 AM [facility] PO2 POC 128(H) 80 - 105 mm Hg 03/23/2025 7:08 AM [facility] HCO3 (CALC) POC 37(H) 22 - 26 mmol/L 03/23/2025 7:08 AM [facility] HEMOGLOBIN POC 7.6(L) 12.0 - 18.0 g/dL 03/23/2025 7:08 AM [facility] BASE EXCESS POC 12(H) -2 - 3 mmol/L 03/23/2025 7:08 AM [facility] O2 SATURATION POC 100(H) 95 - 98 % 03/23/2025 7:08 AM [facility] SODIUM POC 139 138 - 146 mmol/L 03/23/2025 7:08 AM [facility] POTASSIUM POC 4.1 3.5 - 4.9 mmol/L 03/23/2025 7:08 AM [facility] HEMATOCRIT POC 23(L) 38 - 51 % 03/23/2025 7:08 AM [facility] PH TEMP CORRECT 7.43 7.35 - 7.45 03/23/20 7:08 AM CDT [facility] PCO2 TEMP CORRECT 55(H) 35 - 45 mm Hg 03/23/2025 7:08 AM CDT [facility] PO2 TEMP CORRECT 128(H) 80 - 105 mm Hg 03/23/2025 7:08 AM CDT [facility] SPECIMEN SOURCE, GASES POC Arterial 03/23/2025 7:08 AM CDT [facility] CALCIUM IONIZED POC 4.4(L) 4.8 - 5.2 mg/dL 03/23/2025 7:08 AM T [facility] TCO2 (CALC) POC 38(H) 23 - 27 mmol/L 03/23/2025 7:08 AM CDT [facility] PUNC SITE POC ART PUNCT 03/23/2025 7:08 AM CDT [facility] VENT MODE POC BiPAP 03/23/2025 7:08 AM T [facility] PATIENT'S TEMPERATURE POC 37.0 degrees 03/23/2025 7:08 AM T [facility] Blood, arterial 03/23/2025 7 :08 AM CDT 03/23/2025 7:11 AM CDT us Cal Garcia III, DO ABG ORDERABLES Final Res ult [facility] CLIA # [id number] [address] [place] [address] * LACTIC ACID (03/23/2025 5:26 AM CDT) LACTIC ACID 2.0 <=2.0 mmol/L 03/23/2025 5:58 AM CDT [facility] Blood Venipuncture / Unknown 03/23/2025 5:26 AM CDT 03/23/2025 5:34 AM CDT us Lenora Purdy [facility] CHEMISTRY ORDERABLES Fi nal Result Performing Organization Address [facility] Co de Phone Number [facility] [employer] [facility] CLIA # [id number] [address] [facility] EST. [facility] [place] [address] * (ABNORMAL) PROCALCITONIN (03/23/2025 5:16 AM CDT) PROCALCITONIN 54.34(H) <=0.08 ng/mL 03/23/2025 6:31 AM CDT [facility] [employer] [facility] Blood Venipuncture / Unknown 03/23/2025 5:16 AM CDT 03/23/2025 5:41 AM CDT Narrative [facility] [employer] [facility] - 03/23/2025 6:31 AM [...] hours and peaks within 6-24 hours. Lenora Juliethaustin Purdy [facility] CHEMISTRY ORDERABLES Fi nal Result Performing Organization Address [facility] Co de Phone Number [facility] CLIA # [id number] [address] [address] * (ABNORMAL) BASIC METABOLIC PANEL PLUS (ADD ON CMP TO BMP) (03/23/2025 5:16 AM CDT) [facility] TOTAL PROTEIN 7.9 6.4 - 8.3 g/dL 03/23/2025 7:51 AM CDT [facility] ALBUMIN 2.8(L) 3.5 - 5.2 g/dL 03/23/2025 7:51 AM CDT [facility] BILIRUBIN TOTAL 0.5 0.0 - 1.0 mg/dL 03/23/2025 7:51 AM CDT [facility] ALKALINE PHOSPHATASE 171(H) 40 - 129 U/L 03/23/2025 7:51 AM CDT [facility] AST 16 10 - 50 U/L 03/23/2025 7:51 AM CDT [facility] ALT 8 <=50 U/L 03/23/2025 7:51 AM CDT [facility] Blood Venipuncture / Unknown 03/23/2025 5:16 AM CDT 03/23/2025 5:41 AM CDT Azul Wilkerson HI LIFT OPERATOR CHEMISTRY ORDERABLES Final Re sult Performing Organization Address City/State/[facility] Co de Phone Number [facility] CLIA # [id number] [facility] [address] * TYPE AND SCREEN (03/23/2025 5:16 AM CDT) [facility] ABO GROUP O 03/23/2025 7:31 AM CDT [facility] RH (D) TYPE Positive 03/23/2025 7:31 AM CDT [facility] ANTIBODY SCREEN Negative 03/23/2025 7:31 AM CDT [facility] Blood Venipuncture / Unknown 03/23/2025 5:16 AM CDT 03/23/2025 5:34 AM CDT Lenora Juliethaustin Purdy TUBING MILL OPERATOR BLOOD BANK ORDERABLES E dited Result - Final Performing Organization Address [facility]/ZIP Co de Phone Number [facility] [place] CLIA#[id number] [address] [place] [address], * (ABNORMAL) C-REACTIVE PROTEIN (03/23/2025 5:16 AM CDT) CRP 60.9(H) 0.0 - 5.0 mg/L 03/23/2025 12:30 PM CDT [facility] Blood Venipuncture / Unknown 03/23/2025 5:16 AM CDT 03/23/2025 5:41 AM CDT Azul Wilkerson HI LIFT OPERATOR CHEMISTRY ORDERABLES Final Re sult Performing Organization Address [facility] Co de Phone Number [facility] [employer] [facility] CLIA # [id number] [address] [place] [address] * (ABNORMAL) T4 FREE (03/23/2025 5:16 AM CDT) T4 FREE 0.72(L) 0.81 - 1.70 ng/dL 03/23/2025 2:20 PM CDT [facility] [employer] [facility] Blood Venipuncture / Unknown 03/23/2025 5:16 AM CDT 03/23/2025 5:41 AM CDT Azul Wilkerson HI LIFT OPERATOR CHEMISTRY ORDERABLES Final Re sult Performing Organization Address City/[facility]/ZIP Co de Phone Number [facility] [employer] [facility] CLIA # [id number] [address] [place] [address] * PREPARE RED BLOOD CELLS (03/23/2025 4:38 AM CDT) [facility] COMPONENT TYPE [id number] [facility] [place] COMPONENT IDENTIFICATION [id number] [facility] [place] UNIT ABO O [facility] [place] UNIT RH NEG [facility] [place] CROSSMATCH Compatible [facility] [place] COMPONENT STATUS Transfused ME [facility] [place] COMPONENT EXPIRATION DATE/TIME [id number] [facility] [place] COMPONENT CODING SYSTEM [address] [facility] [place] VOLUME, BLOOD PRODUCT 350 [facility] Other, specify 03/23/2025 4: 38 AM CDT Lenora Purdy TUBING MILL OPERATOR LAB TRANSFUSION ORDERAB LES Edited Result - Final [facility] [employer] [facility] CLIA#[id number] [address] [place] [address], * (ABNORMAL) MANUAL DIFFERENTIAL (03/23/2025 3:57 AM CDT) [facility] SEGMENTED NEUTROPHILS 98(H) 36 - 66 % 03/23/2025 4:50 AM CDT [facility] LYMPHOCYTES RELATIVE 0(L) 24 - 44 % 03/23/2025 4:50 AM CDT [facility] MONOCYTES RELATIVE 1(L) 4 - 10 % 03/23/2025 4:50 AM CDT [facility] METAMYELOCYTES RELATIVE 1 0 - 1 % 03/23/2025 4:50 AM CDT [facility] PLATELET EST. Slightly Increased 03/23/2025 4:50 AM CDT [facility] NEUTROPHILS ABSOLUTE COUNT 41.85(H) 2.00 - 8.00 K/uL 03/23/2025 4:50 AM CDT [facility] [employer] [facility] LYMPHOCYTES ABSOLUTE 0.00(L) 1.20 - 4.00 K/uL 03/23/2025 4:50 AM CDT [facility] ATYPICAL LYMPHS ABSOLUTE 03/23/2025 4:50 AM CDT [facility] MONOCYTES ABSOLUTE 0.43 0.10 - 0.60 K/uL 03/23/2025 4:50 AM CDT [facility] ANISOCYTOSIS 1+ /hpf 03/23/2025 4:50 AM CDT [facility] POLYCHROMASIA 1+ /hpf 03/23/2025 4:50 AM CDT [facility] VACUOLATED NEUTROPHILS Present /hpf 03/23/2025 4:50 AM CDT [facility] TOTAL CELLS COUNTED IN DIFF 100 03/23/2025 4:50 AM CDT [facility] Blood Venipuncture / Unknown 03/23/2025 3:57 AM CDT 03/23/2025 4:02 AM CDT us Lenora Purdy TUBING MILL OPERATOR HEMATOLOGY ORDERABLES C OM Final Result Performing Organization Address City/[facility]/ZIP Co de Phone Number [facility] CLIA # [id number] [address] [place] [address] * VITAMIN B12 AND FOLATE (03/23/2025 3:57 AM CDT) VITAMIN B12 616 211 - 946 pg/mL 03/23/2025 4:54 AM CDT [facility] FOLATE, SERUM 11.4 3.1 - 17.5 ng/mL 03/23/2025 4:54 AM CDT [facility] Blood Venipuncture / Unknown 03/23/2025 3:57 AM CDT 03/23/2025 4:03 AM CDT us Jaime Ruggiero MD CHEMISTRY ORDERABLES Final R esult [facility] CLIA # [id number] [address] [facility] [place] [address] * CT ABDOMEN PELVIS W CONTRAST (03/22/2025 [...] Ruggiero MD URINE ORDERABLES Final Resul t [facility] CLIA # [id number] [address] [address] [place] [address] * (ABNORMAL) URINALYSIS WITH REFLEX MICROSCOPIC (03/22/2025 8:38 AM CDT) COLOR UA Pale Yellow Pale to Dark Yellow 03/22/2025 9:07 AM T [facility] CLARITY UA Turbid(A) Clear 03/22/2025 9:07 AM T [facility] SPECIFIC GRAVITY UA 1.013 1.003 - 1.035 03/22/2025 9:07 AM T [facility] PH UA 8.0 5.0 - 8.0 03/22/2025 9:07 AM T [facility] LEUKOCYTE ESTERASE UA 3+(A) Negative 03/22/2025 9:07 AM T [facility] NITRITE UA Negative Negative 03/22/2025 9:07 AM [facility] PROTEIN UA Trace(A) Negative 03/22/2025 9:07 AM T [facility] GLUCOSE UA Negative Negative 03/22/2025 9:07 AM T [facility] KETONES UA Negative Negative 03/22/2025 9:07 AM T [facility] UROBILINOGEN UA <2.0 <2.0 mg/dL 9:07 AM T [facility] BILIRUBIN UA Negative Negative 03/22/2025 9:07 AM [facility] BLOOD UA Trace(A) Negative 03/22/2025 9:07 AM T [facility] WBC UA 3-5(A) 0 - 2 /hpf 03/22/2025 9:07 AM CDT [facility] RBC UA 3-5(A) 0 - 2 /hpf 03/22/2025 9:07 AM CDT [facility] BACTERIA UA Negative Negative /hpf 03/22/2025 9:07 AM CDT [facility] EPITHELIAL CELLS, URINE 0-5 0 - 5 /hpf 03/22/2025 9:07 AM CDT [facility] TRIPLE PHOS Present(A) Absent 03/22/2025 9:07 AM CDT [facility] Urine URINE SPECIMEN OBTAINED BY CLEAN CATCH PROCEDURE / Unknown Collection / Unknown 03/22/2025 8:38 AM CDT 03/22/2025 8:50 AM CDT us Jaime Ruggiero MD URINE ORDERABLES Final Resul t Performing Organization Address City/[facility]/ZIP Co de Phone Number [facility] CLIA # [id number] [address] [place] [address] * (ABNORMAL) TROPONIN 6 HR, 5TH GEN (03/22/2025 4:36 AM CDT) TROPONIN T, 6 HR 5TH GEN 133(HH) <=15 ng/L 03/22/2025 5:22 AM CDT [facility] DELTA 6HR TROPONIN T % -9 See Interp. % 03/22/2025 5:22 AM CDT [facility] Blood Venipuncture / Unknown 03/22/2025 4:36 AM CDT 03/22/2025 4:46 AM CDT Narrative [facility] - 03/22/2025 5:22 AM CDT Troponin elevated. Delay in collection of timed specimen beyond recommended collection interval. Results must be interpreted in clinical context. Delta not changing. us Bandar Parsons MD CHEMISTRY ORDERABLES Final Res ult [facility] CLIA # [id number] [address] [address] [place], [place] [address] * (ABNORMAL) IRON, TIBC, AND PERCENT SATURATION (03/22/2025 4:36 AM CDT) IRON 16(L) 59 - 158 ug/dL 03/22/2025 6:41 PM CDT [facility] TIBC 316 250 - 450 ug/dL 03/22/2025 6:41 PM CDT [facility] IRON % SATURATION 5(L) 15 - 60 % 03/22/2025 6:41 PM CDT [facility] Blood Venipuncture / Unknown 03/22/2025 4:36 AM CDT 03/22/2025 4:46 AM CDT us Jaime Ruggiero MD CHEMISTRY ORDERABLES Final R esult [facility] CLIA # [id number] [address] [address] * (ABNORMAL) TSH (03/22/2025 4:36 AM CDT) TSH 6.70(H) 0.27 - 4.20 uIU/mL 03/22/2025 6:41 PM CDT [facility] Blood Venipuncture / Unknown 03/22/2025 4:36 AM CDT 03/22/2025 4:46 AM CDT us Jaime Ruggiero MD CHEMISTRY ORDERABLES Final R esult [facility] CLIA # [id number] [address] [facility] [place] [address] * FERRITIN (03/22/2025 4:36 AM CDT) Pathologist [facility] FERRITIN 31.2 30.0 - 400.0 ng/mL 03/22/2025 6:41 PM CDT [facility] Blood Venipuncture / Unknown 03/22/2025 4:36 AM CDT 03/22/2025 4:46 AM CDT us Jaime Ruggiero MD CHEMISTRY ORDERABLES Final R esult Performing Organization Address [facility] Co de Phone Number [facility] CLIA # [id number] [address] [address] [place], [place] [address] * (ABNORMAL) TROPONIN BASELINE, 5TH GEN (03/21/2025 10:18 PM CDT) Pathologist [facility] TROPONIN T, BASELINE 5TH GEN 146(HH) <=15 ng/L 03/22/2025 4:37 AM CDT [facility] Blood Venipuncture / Unknown 03/21/2025 10:18 PM CDT 03/21/2025 10:23 PM CDT Narrative [facility] - 03/22/2025 4:37 AM CDT Troponin elevated. us Bandar Parsons MD CHEMISTRY ORDERABLES Final Res ult Performing Organization Address [facility]/ZIP Co de Phone Number [facility] CLIA # [id number] [address] [address] * (ABNORMAL) BRAIN NATRIURETIC PEPTIDE, BNP OR PROBNP (03/21/2025 10:18 PM CDT) Pathologist [facility] PROBNP, N TERMINAL 4,282(H) 0 - 125 pg/mL 03/21/2025 10:58 PM CDT [facility] Comment: INTERPRETIVE COMMENT based on diagnosis: Diagnostic [...] Parsons MD CHEMISTRY ORDERABLES Final Res ult [facility] CLIA # [id number] [address] [place] [address] * (ABNORMAL) COMPREHENSIVE METABOLIC PANEL (03/21/2025 10:18 PM CDT) SODIUM 141 136 - 145 mmol/L 03/21/2025 10:58 PM CDT [facility] POTASSIUM 4.5 3.5 - 5.1 mmol/L 03/21/2025 10:58 PM CDT [facility] CHLORIDE 100 98 - 107 mmol/L 03/21/2025 10:58 PM CDT [facility] CO2 33(H) 22 - 29 mmol/L 03/21/2025 10:58 PM CDT [facility] CALCIUM 8.2(L) 8.8 - 10.2 mg/dL 03/21/2025 10:58 PM CDT [facility] BUN 24(H) 8 - 23 mg/dL 03/21/2025 10:58 PM CDT [facility] CREATININE 1.20(H) 0.67 - 1.17 mg/dL 03/21/2025 10:58 PM CDT [facility] Comment:The GFR result is no t clinically significant on patients <18 or >70 years of age. GLUCOSE 118(H) 74 - 99 mg/dL 03/21/2025 10:58 PM CDT [facility] TOTAL PROTEIN 8.5(H) 6.4 - 8.3 g/dL 03/21/2025 10:58 PM CDT [facility] ALBUMIN 2.8(L) 3.5 - 5.2 g/dL 03/21/2025 10:58 PM CDT [facility] BILIRUBIN TOTAL 0.2 0.0 - 1.0 mg/dL 03/21/2025 10:58 PM CDT [facility] ALKALINE PHOSPHATASE 141(H) 40 - 129 U/L 03/21/2025 10:58 PM CDT [facility] AST 9(L) 10 - 50 U/L 03/21/2025 10:58 PM CDT [facility] ALT 6 <=50 U/L 03/21/2025 10:58 PM T [facility] GFR >60 mL/min/1. 73 sq meter 03/21/2025 10:58 PM T [facility] Comment:eGFR calculated with 2020 CKD-EPI equation. Vegetarian diet, extremely high or low muscle mass, and may affect results. Cystatin C with Glomerular Filtration Rate is a suitable alternative for these patients. ANION GAP 8(L) 9 - 20 mmol/L 03/21/2025 10:58 PM CDT [facility] Blood Venipuncture / Unknown 03/21/2025 10:18 PM CDT 03/21/2025 10:23 PM CDT us Bandar Parsons MD CHEMISTRY ORDERABLES Final Res ult [facility] CLIA # [id number] [facility] [address] [place] [address] * EKG 12-LEAD (03/21/2025 10:11 PM CDT) 03/21/2025 10:1 1 PM CDT Narrative INTERFACE SYSTEM - 03/23/2025 1:02 PM CDT [address] [address] Test Date: 2025-03-21 Pat Name: ISREAL THAYER Department: 11 Room: Gender: Male Wardrobe Image Consultant: [id number] : 1950 Requested By: Order Number: [id number] Reading MD: Inessa Zamarripa Measurements Intervals [place] Rate: 64 P: 53 WA: 174 QRS: -6 QRSD: 98 T: -77 QT: 434 QTc: 447 Interpretive Statements Sinus rhythm with premature atrial complexes Low voltage QRS Cannot rule out Anterior infarct, age undetermined Abnormal ECG Electronically Signed On 03-23-2025 13:02:21 CDT by Inessa Zamarripa Procedure Note Provider, Historical - 03/23/[address] [address] Test Date: 2025-03-21 Pat Name: ISREAL THAYER Department: 11 Room: Gender: Male Wardrobe Image Consultant: [id number] : 1950 Requested By: Order Number: [id number] Reading : Inessa Zamarripa Measurements Intervals [place] Rate: 64 P: 53 WA: 174 QRS: -6 QRSD: 98 T: -77 QT: 434 QTc: 447 Interpretive Statements Sinus rhythm with premature atrial complexes Low voltage QRS Cannot rule out Anterior infarct, age undetermined Abnormal ECG Electronically Signed On 03-23-2025 13:02:21 CDT by Inessa Zamarripa us Bandar Parsons MD ECG ORDERABLES Final Result INTERFACE SYSTEM Refer to clinic/hospital department * ENDOSCOPY, COLON, SCREENING (07/11/2013 12:39 PM GRAPPLER) 07/11/2013 12:3 9 PM GRAPPLER Narrative Procedure Note Demetri Chávez MD - 07/10/2013 12:00 AM CST Procedures signed by Demetri Chávez MD at 07/11/2013 12:39 PM Author: Demetri Chávez MD Service: -- Author Type: Physician Filed: 07/11/2013 12:39 PM Date of Service: 07/10/2013 5:25 PM Status:Signed Inspector Precision: Demetri Chávez MD (Physician) Procedure Orders 1. ENDOSCOPY, COLON, MEDICARE SCREENING (WELLNESS) [[id number]] ordered byat 07/01/13 [address] [place], [place] Patient: ISREAL ARGUELLO CSN: [id number] : 1950 Provider: Demetri Chávez MD ENDOSCOPY [...] otherwise unremarkablecolonoscopy. Demetri Chávez MD MMODL D: [id number] V: [id number] cc: Roshan Jimenez DO us Roshan Jimenez DO GI PROCEDURE ORDERABLES Fin al Result [facility] from Last 3 Months or Most Recently Relevant to Health Maintenance Insurance MEDICAID [place] MEDICARE PART A AND B RX [employer] RX Member Subscriber Plan / Payer (Ef fective 2023-Present) Name:Isreal Arguello Relation to Subscriber:Self Name:Isreal Arguello Payer ID:Not on file Group ID:[id number] Type:RX Commercial Address: [address] Advance Directives For more information, please contact: [phone] * NO CPR (In Event of Cardiopulmonary [...]
--- OUTSIDE RECORDS SUMMARY | 2025-06-01 21:37 | XMS_ITS | Clinical Summary ---
Author Organization [facility] [place] Address [address] [place] [address] Phone Care Team Providers Care Seam Checker Name Role Phone Roshan Jimenez DO Primary [...] Asthma with chronic obstructive pulmonary disease (COPD) Take 1 Puff by inhalation daily. 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 Gender Identity Not on [...] Screening 07/11/2023 INFLUENZA VACCINE (#1) 2025 , 06/01/2019, 06/01/2019, Additional history exists RSV VACCINE (60+ or ) (1 - 1-dose 75+ series) 2027 ZOSTER VACCINE Completed 11/26/2018, 09/24/2018 PNEUMOCOCCAL VACCINE 50+ YEARS Completed 1 09/19/2019, 06/01/2019, 06/01/2019, Additional history exists Procedures Procedure Name Priority Date/Time Associated Diagnosis Comments ENDOSCOPY, COLON, SCREENING Routine 07/11/2013 12:39 PM GAS CUTTING MACHINE OPERATOR Special screening for malignant neoplasms, colon from Last 3 Months or Most Recently Relevant to Health Maintenance Results * ENDOSCOPY, COLON, SCREENING (07/11/2013 12:39 PM GAS CUTTING MACHINE OPERATOR) Narrative Transcriptions Demetri Chávez MD - 07/10/2013 5:25 PM CST [place], [place] Patient: EDSON JAFFE CSN: [id number] : 1950 Provider: Demetri Chávez MD ENDOSCOPY [...] otherwise unremarkablecolonoscopy. Demetri Chávez MD MMODL D: [id number] V: [id number] cc: Roshan Jimenez DO Roshan Jimenez DO GI PROCEDURE ORDERABLES Fin al Result from Last 3 Months or Most Recently Relevant to Health Maintenance Insurance MEDICAID [address] [place] [place] [address] DUAL COMPLETE MCR HMO SNP Advance Directives For more information, please contact: [phone] * Full Code (Latest Code Status on [...] 12:22 PM 01/13/2010 11:02 PM Care Teams Seam Checker Relationship Specialty Start Date End Date Roshan Jimenez DO NO ADDRESS ON FILE PCP - General 03/26/03
--- OUTSIDE RECORDS SUMMARY | 2025-06-01 21:37 | XMS_ITS | Encounter Summary ---
Author Organization [facility] Address [address] [place] [address] Care Team Providers Care Manufacturing Cost Estimator Name Role Phone Roshan Jimenez DO Primary Care Provider Unav ailable Encounter Details Date Type Department Care Team (Latest Contact Info) Description 07/31/2001 Outpatient [facility] [address] [place] [address] Roshan Jimenez DO NO ADDRESS ON FILE HYPERTENSION NOS (Primary Dx); VACCINE FOR INFLUENZA Social History Tobacco Use Types Packs/Day Years Used Date Smoking Tobacco: Never Assessed Sex and Gender Information Value Date Recorded Sex Assigned at Not on file 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
--- OUTSIDE RECORDS SUMMARY | 2025-06-01 21:37 | XMS_ITS | Encounter Summary ---
Author Organization [facility] Address [address] [place] [address] Care Team Providers Care Manufacturing Weaver Name Role Phone Roshan Jimenez DO Primary Care Provider Unav ailable Encounter Details Date Type Department Care Team (Late st Contact Info) Description 12/30/2009 Ancillary Orders [facility] Orthopedics- [address] [place] [address] Yusef Malagon MD NO ADDRESS ON FILE Pain Social History Tobacco Use Types Packs/Day Years Used Date Smoking Tobacco: Every Day Cigarettes 1 42 Alcohol Use Standard Drinks/Week Comments Yes 0 (1 standard drink = 0.6 oz pur e alcohol) Rare Sex and Gender Information Value Date Recorded Sex Assigned at Not on file Legal Sex Male 4:59 AM RECEP Gender Identity Not on file Sexual Orientation [...] pain documented in this encounter Care Teams Manufacturing Weaver Relationship Specialty Start Date End Date oRshan Jimenez DO NO ADDRESS ON FILE PCP - General 03/26/03 documented as of this encounter
--- OUTSIDE RECORDS SUMMARY | 2025-06-01 21:37 | XMS_ITS | Encounter Summary ---
Author Organization [facility] Address [address] [place] [address] Care Team Providers Care Staining Machine Operator Name Role Phone Roshan Jimenez DO Primary Care Provider Unav ailable Encounter Details Date Type Department Care Team (Latest Contact Info) Description 03/22/2000 Outpatient Historical [facility] [phone] [place] [id number] Roshan Jimenez DO NO ADDRESS ON FILE Unspecified essential hypertension (Primary Dx); Chronic airway obstruction, not elsewhere classified (CMS/HCC); Transient tic disorder; Osteoarthrosis, unspecified whether generalized or localized, unspecified site Social History Tobacco Use Types Packs/Day Years Used Date Smoking Tobacco: Never Assessed Sex and Gender Information Value Date Recorded Sex Assigned at Not on file 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
--- OUTSIDE RECORDS SUMMARY | 2025-06-01 21:37 | XMS_ITS | Encounter Summary ---
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
--- OUTSIDE RECORDS SUMMARY | 2025-06-01 21:37 | XMS_ITS | Encounter Summary ---
Author Organization [facility] Address [address] [facility] Attn: [place] [address] Care Team Providers Care Maintenance Supervisor Mechanical Name Role Phone Roshan Jimenez DO Primary [...] on file Legal Sex Male 4:59 AM PALS SPECIALIST Gender Identity Not on file Sexual Orientation Not on file documented as of this encounter Plan of Treatment Not on file documented as of this encounter Visit Diagnoses Not on filedocumented in this encounter Care Teams Maintenance Supervisor Mechanical Relationship Specialty Start Date End Date Roshan Jimenez DO NO ADDRESS ON FILE PCP - General 03/26/03 documented as of this encounter
--- OUTSIDE RECORDS SUMMARY | 2025-06-01 21:37 | XMS_ITS | Encounter Summary ---
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
--- OUTSIDE RECORDS SUMMARY | 2025-06-01 21:37 | XMS_ITS | Encounter Summary ---
Author Organization [facility] Address [address] [place] [address] Care Team Providers Care Sound Printer Name Role Phone Roshan Jimenez DO Primary Care Provider Unav ailable Encounter Details Date Type Department Care Team (Late st Contact Info) Description 12/23/1999 Outpatient Historical [facility] Social History Tobacco Use Types Packs/Day Years Used Date Smoking Tobacco: Never Assessed Sex and Gender Information Value Date Recorded Sex Assigned at Not on file Legal Sex Male 4:59 AM GAME PRODUCER Gender Identity Not on file Sexual Orientation Not on file documented as of this encounter Plan of Treatment Not on file documented as of this encounter Visit Diagnoses Not on filedocumented in this encounter Care Teams Sound Printer Relationship Specialty Start Date End Date Roshan Jimenez DO NO ADDRESS ON FILE PCP - General 03/26/03 documented as of this encounter
--- OUTSIDE RECORDS SUMMARY | 2025-06-01 21:37 | XMS_ITS | Encounter Summary ---
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
--- OUTSIDE RECORDS SUMMARY | 2025-06-01 21:37 | XMS_ITS | Encounter Summary ---
Author Organization [facility] Address [address] [place] [address] Care Team Providers Care Felt Washing Machine Tender Name Role Phone Roshan Jimenez [...] on file Legal Sex Male 4:59 AM CROWN CERAMIST Gender Identity Not on file Sexual Orientation Not on file documented as of this encounter Plan of Treatment Not on file documented as of this encounter Visit Diagnoses Diagnosis Bronchitis, not specified as acute or chronic- Primary Other and unspecified hyperlipidemia Inhibited sex excitement Psychosexual dysfunction with inhibited sexual excitement Unspecified essential hypertension documented in this encounter Care Teams Felt Washing Machine Tender Relationship Specialty Start Date End Date Roshan Jimenez DO NO ADDRESS ON FILE PCP - General 03/26/03 documented as of this encounter
--- OUTSIDE RECORDS SUMMARY | 2025-06-01 21:37 | XMS_ITS | Encounter Summary ---
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
--- OUTSIDE RECORDS SUMMARY | 2025-06-01 21:37 | XMS_ITS | Encounter Summary ---
Author Organization [facility] Address [address] [place] [address] Care Team Providers Care Construction Helper Name Role Phone Roshan Jimenez DO Primary Care Provider Unav ailable Encounter Details Date Type Department Care Team (Latest Contact Info) Description 05/23/2000 Outpatient Historical [facility] Dermatology- [facility] [place] [address] [place] [phone] Irineo Snyder MD NO ADDRESS ON FILE Hidradenitis (Primary Dx); Benign miguel skin trunk Social History Tobacco Use Types Packs/Day Years Used Date Smoking Tobacco: Never Assessed Sex and Gender Information Value Date Recorded Sex Assigned at Not on file 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
--- NOTE | 2025-06-01 21:39 | PC.NURSE ---
NH states pt is taking clindamycin for pneumonia. They were unable to wake him up for medication pass tonight. pt is normally aox4 and wears 4L NC at all times for advanced COPD.
--- NOTE | 2025-06-01 22:19 | CTR_ITS ---
PROCEDURE INFORMATION: Exam: CT Head Without Contrast Exam date and time: 06/01/2025 11:05 PM Age: 74 years old Clinical indication: Altered mental status/memory loss; EMS arrival from long term for AMS. Patient very lethargic. TECHNIQUE: Imaging protocol: Computed tomography of the head without contrast. Radiation optimization: All CT scans at this facility use at least one of these dose optimization techniques: automated exposure control; mA and/or kV adjustment per patient size (includes targeted exams where dose is matched to clinical indication); or iterative reconstruction. COMPARISON: CT head wo con* [id number] 05/18/2025 11:11 AM RADIATION DOSE METRICS: Total DLP (mGy-cm): 717.38 FINDINGS: Brain: No acute infarction, hemorrhage, mass, or extra-axial fluid collection is identified. No midline shift. Generalized senescent changes noted. Cerebral ventricles: No hydrocephalus. Paranasal sinuses: Mild mucosal thickening of paranasal sinuses with small fluid in the posterior sphenoid sinus. Mastoid air cells: Moderate right and mild left mastoid effusions. Bones: Calvarium appears intact. Soft tissues: Unremarkable. CT/CT head wo con* [id number] IMPRESSION: 1. No acute intracranial abnormality. 2. Mild sphenoid sinus disease with moderate right and mild left mastoid effusions.
--- NOTE | 2025-06-01 22:19 | XRR_ITS ---
PROCEDURE INFORMATION: Exam: XR Chest Exam date and time: 06/01/2025 10:56 PM Age: 74 years old Clinical indication: Prior surgery; Surgery date: 6+ months; Surgery type: Coronary stents; EMS arrival from [facility] for AMS. Recent pneumonia. TECHNIQUE: Imaging protocol: Radiologic exam of the chest. Views: 1 view. COMPARISON: [place] [id number] 05/18/2025 11:15 AM FINDINGS: Lungs: Central vascular congestion and rsmc-hswjcth-cwrg-right hazy pulmonary opacities and interstitial prominence. Pleural spaces: Otdn-pwchsjk-omva-right pleural effusions. No pneumothorax. Heart/Mediastinum: Cardiomegaly. Bones/joints: No acute osseous findings. XR/XR chest 1V portable [id number] IMPRESSION: Findings suggestive of CHF with pulmonary edema, pleural effusions, and with superimposed infectious process not excluded.
[2025-06-01 22:54] LABS: Hematocrit 34.8 % (37-53); Hemoglobin 8.80 g/dL (11.27-16.99); Mean Corpuscular HGB Conc 25.3 g/dL (30-55); Mean Corpuscular Hemoglobin 25.3 pg (27-33); Mean Corpuscular Volume 100.0 fl (82-101); Nucleated Red Blood Cells % 0.3 %; Platelet Count 188 10^3/cmm (157-399); Red Blood Count 3.48 10^6/uL (3.85-5.65); White Blood Count 8.59 10^3/uL (3.29-11.43)
--- NOTE | 2025-06-01 22:57 | W.ED.AMS ---
HPI - Altered Mental Status General: Chief Complaint: Altered Mental Status Stated Complaint: AMS Time Seen by Provider: 06/01/25 21:24 History of Present Illness: 74-year-old male correction patient whom is a DNR. He was admitted recently for pneumonia. He has been on antibiotics in the correction. He presents with altered mental status, trouble breathing. The patient is a poor historian, and only answer simple yes/no questions. He does move all of his extremities. He follows simple commands no fever here. Related Data Home Medications ?Medication ?Instructions ?Recorded ?Confirmed albuterol sulfate 90 mcg/actuation 2 puff inhalation Q4H PRN 11/02/24 06/02/25 aerosol inhaler Shortness Of Breath Or Wheezing aluminum-mag hydroxide-simethicone 30 ml PO Q2H PRN 11/02/24 06/02/25 400 mg-400 mg-40 mg/5 mL oral susp indigeston/heartburn/gas (Mylanta Maximum Strength) bisacodyl 10 mg rectal suppository 10 mg AR .Q72H PRN Constipation 11/02/24 06/02/25 docusate sodium 100 mg capsule 100 mg PO BID 11/02/24 06/02/25 (Colace) ergocalciferol (vitamin D2) 1,250 50,000 mcg PO Q30D 11/02/24 06/02/25 mcg (50,000 unit) capsule fluticasone fur. 200 mcg-umeclid 1 inh inhalation DAILY 11/02/24 06/02/25 62.5 mcg-vilant 25 mcg inhalat.powder (Trelegy Ellipta) magnesium hydroxide 400 mg/5 mL 30 ml PO DAILY PRN Constipation 11/02/24 06/02/25 oral suspension (Milk of Magnesia) multivitamin 1 tab PO QAM 11/02/24 06/02/25 polyethylene glycol 3350 17 17 g PO DAILY PRN bowel management 11/02/24 06/02/25 gram/dose oral powder (Miralax) sennosides 8.6 mg tablet (senna) 8.6 mg PO DAILY PRN Constipation 11/02/24 06/02/25 acetaminophen 325 mg tablet 650 mg PO Q4H PRN elevated 12/06/24 06/02/25 (Tylenol) temp/pain loperamide 2 mg tablet (Imodium 2 mg PO Q6H PRN Diarrhea 01/28/25 06/02/25 A-D) oxycodone-acetaminophen 10 mg-325 1 tab PO Q6H PRN Pain 01/28/25 06/02/25 mg tablet albuterol sulfate 2.5 mg/3 mL 2.5 mg continuous nebulization 03/05/25 06/02/25 (0.083 %) solution for nebulization .TID PRN Shortness Of Breath clopidogrel 75 mg tablet 75 mg PO DAILY 03/05/25 06/02/25 melatonin 3 mg tablet 6 mg PO BEDTIME PRN Insomnia 03/05/25 06/02/25 nitroglycerin 0.4 mg sublingual See Rx Instructions .Route .COMPLEX 03/05/25 06/02/25 tablet triamcinolone acetonide 0.5 % See Rx Instructions .Route .COMPLEX 03/05/25 06/02/25 topical cream empagliflozin 10 mg tablet 10 mg PO DAILY 04/06/25 06/02/25 (Jardiance) fluoxetine 20 mg capsule 20 mg PO DAILY 04/06/25 06/02/25 gabapentin 300 mg capsule 300 mg PO BID 04/06/25 06/02/25 levothyroxine 50 mcg tablet 50 mcg PO DAILY 04/06/25 06/02/25 potassium chloride 10 mEq 10 meq PO DAILY 04/06/25 06/02/25 tablet,extended release(part/cryst) metoprolol tartrate 25 mg tablet 12.5 mg PO DAILY 05/04/25 06/02/25 semaglutide 1 mg/dose (4 mg/3 mL) 1 mg SUBCUT Q7D 05/04/25 06/02/25 subcutaneous pen injector (Ozempic) buspirone 5 mg tablet 5 mg PO BID anxiety 05/14/25 06/02/25 fluoxetine 10 mg tablet 10 mg PO DAILY 05/18/25 06/02/25 pantoprazole 40 mg tablet,delayed See Rx Instructions .Route .COMPLEX 05/18/25 06/02/25 release sucralfate 100 mg/mL oral See Rx Instructions .Route .COMPLEX 05/18/25 06/02/25 suspension linezolid 600 mg tablet 600 mg PO BID 06/02/25 06/02/25 Previous Rx's ?Medication ?Instructions ?Recorded aspirin 81 mg tablet,delayed 81 mg PO DAILY 30 days #30 tabs 05/21/25 release atorvastatin 40 mg tablet 40 mg PO QPM 30 days #30 tabs 05/21/25 nitroglycerin 0.4 mg sublingual 0.4 mg sublingual Q5M PRN Chest 05/21/25 tablet Pain 30 days #30 tabs Allergies Allergy/AdvReac Type Severity Reaction Status Date / Time broccoli Allergy ADR-Vomitin Verified 04/24/25 07:51 g PFSH ED PFSH: Medical History Atrial fibrillation Pulmonary embolism UTI (urinary tract infection) Dvt femoral (deep venous thrombosis) Bilateral Acute respiratory failure with hypoxia and hypercarbia Anemia Acute on chronic HFrEF (heart failure with reduced ejection fraction) Morbid obesity with BMI of 40.0-44.9, adult NSTEMI (non-ST elevated myocardial infarction) 02/12/2025 Congestive heart failure CKD (chronic kidney disease) History of deep vein thrombosis DNR (do not resuscitate) group home resident COPD with acute exacerbation Open wound of right lower leg Open wound of left lower leg Pressure ulcer of right buttock, stage 3 Social History Smoking and tobacco/nicotine status: former use of tobacco/nicotine Quit status (tobacco/nicotine): has quit using Year quit tobacco: 2022 Alcohol intake: former Year of sobriety/quit date alcohol: 2021 Substance/Drug Use: never Additional social history: Patient lives in a correction he wants DO NOT RESUSCITATE status as discussed with Cole Sheriff MD on 05/14/2025. His sister Bita Jean-Baptiste phone #[phone] is his next of kin. 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 Physical Exam Const: EXAM LIMITATIONS: altered mental status GENERAL APPEARANCE: cooperative, in distress, ill appearing and frail appearing NUTRITIONAL APPEARANCE: obese ORIENTATION/CONSCIOUSNESS: Yes awake and Yes oriented to person HENMT: COMMON NORMALS: normocephalic and atraumatic HEAD & SCALP: normocephalic and atraumatic FACE & SINUS: normal facial exam and face symmetric NOSE: Normal nares present Eye: COMMON NORMALS: Equal, round and reactive pupils present and EOMs intact bilaterally PUPIL: Yes Equal, round and reactive pupils present Neck/C-Spine: GENERAL: Yes trachea midline Chest: CHEST: Yes Symmetrical chest wall rise Resp: EFFORT & INSPECTION: Yes tachypneic and Yes labored AUSCULTATION: rhonchi Cardio: COMMON NORMALS: regular rate and regular rhythm RATE: regular rate RHYTHM: regular rhythm GI: COMMON NORMALS: Soft to palpation PALPATION: Yes Soft to palpation Neuro: BRET COMA SCALE: document GCS findings Bret coma scale eye opening: Spontaneous Bret coma scale verbal response: Confused Bret coma scale motor response: Obey commands Bret coma scale total score: 14 SENSORIUM/ORIENTATION: Yes oriented to person Course Vital Signs: Vital signs: Vital Signs Temperature 98.2 F 06/02/25 04:00 Pulse Rate 76 06/02/25 04:15 Respiratory Rate 21 H 06/02/25 04:15 Blood Pressure 114/69 06/02/25 04:15 Pulse Oximetry 96 06/02/25 04:15 Oxygen Delivery Me thod BiPAP 06/02/25 04:00 Oxygen Flow Rate 3 06/01/25 22:50 Fraction of Inspir ed Oxygen 36 06/02/25 04:00 MDM - Altered Mental Status Medical Decision Making Patient is in respiratory failure. pH is 7.28 with a pCO2 of 83, PO2 of 85. He is placed on BiPAP. Chest x-ray shows pulmonary edema pleural effusions. He is covered for pneumonia as well after blood cultures. CBC shows a hemoglobin of 8.8 with white count of 9. Sodium is 146. Other parameters not remarkable. Leukocyte esterase is 2+ with hematuria and whites, but the sample is contaminated. He is placed on vancomycin and Zosyn, and given diuresis here. He will be admitted. Hospitalist is aware. Lab Data 06/01/25 22:32 06/02/25 04:12 Radiology Impressions Chest X-Ray 06/01/25 22:19 IMPRESSION: Findings suggestive of CHF with pulmonary edema, pleural effusions, and with superimposed infectious process not excluded. Head CT 06/01/25 22:19 IMPRESSION: 1. No acute intracranial abnormality. 2. Mild sphenoid sinus disease with moderate right and mild left mastoid effusions. Laboratory Results WBC 8.59 10^3/uL (3.29-11.43) 06/01/25 22:32 RBC 3.48 10^6/uL (3.85-5.65) L 06/01/25 22: Hgb 8.80 g/dL (11.27-16.99) L 06/01/25: Hct 34.8 % (37-53) L 06/01/25: MCV 100.0 fl (82-101) 06/01/25: MCH 25.3 pg (27-33) L 06/01/25: MCHC 25.3 g/dL (30-55) L 06/01/25: RDW 18.4 % (12.1-15.1) H 06/01/25: Plt Count 188 10^3/cmm (157-399) 06/01/25: MPV 10.5 fL (7.4-10.4) H 06/01/25: Neut % (Auto) 73.6 % 06/01/25: Lymph % (Auto) 12.7 % 06/01/25: [place] % (Auto) 9.5 % 06/01/25: Eos % (Auto) 2.0 % 06/01/25: Baso % (Auto) 0.3 % 06/01/25: Neut # (Auto) 6.32 10^3/uL (1.8-7.7) 06/01/25: Lymph # (Auto) 1.1 10^3/uL (0.8-4.8) 06/01/25: [place] # (Auto) 0.8 10^3/uL (0.2-0.9) 06/01/25: Eos # (Auto) 0.2 10^3/uL (0.0-0.8) 06/01/25: Baso # (Auto) 0.0 10^3/uL (0.0-0.1) 06/01/25: Nucleated RBC % (auto) 0.3 % 06/01/25: Nucleated RBCs # 0.0 /100WBC 06/01/25 22:32 Specimen Type Arterial 06/01/25 23:40 Sample Site Brachial, right 06/01/25 23:40 ABG pH 7.28 (7.35-7.45) L 06/01/25 23:40 ABG pCO2 83.2 mmHg (35-45) H* 06/01/25 23:40 ABG pO2 85.4 mmHg (80.0-100.0) 06/01/25 23:40 ABG PO2/FiO2 Ratio 266 06/01/25 23:40 ABG HCO3 39.0 mmol/L (22-26) H 06/01/25 23:40 ABG Base Excess 10.3 mmol/L (-2.0-2.0) H 06/01/25 23:40 Ivan Test Pos 06/01/25 23:40 Hematocrit 27.0 % (42-52) L 06/01/25 23:40 O2 Delivery Device Nc 06/01/25 23:40 O2 Liters/Min 3.0 % 06/01/25 23:40 FiO2 32.0 % 06/01/25 23:40 Bar Manager ID Bd 06/01/25 23:40 Sodium Cancelled 06/01/25 22:32 Potassium Cancelled 06/01/25 22:32 Chloride Cancelled 06/01/25 22:32 Carbon Dioxide Cancelled 06/01/25 22:32 Anion Gap Cancelled 06/01/25 22:32 BUN Cancelled 06/01/25 22:32 Creatinine Cancelled 06/01/25 22:32 GFR Calculation Cancelled 06/01/25 22:32 Glucose Cancelled 06/01/25 22:32 Calculated Osmolality Cancelled 06/01/25 22:32 Lactic Acid 1.0 mmol/L (0.5-2.2) 06/01/25 22:47 Calcium Cancelled 06/01/25 22:32 Magnesium Cancelled 06/01/25 22:32 Total Bilirubin Cancelled 06/01/25 22:32 AST Cancelled 06/01/25 22:32 ALT Cancelled 06/01/25 22:32 Alkaline Phosphatase Cancelled 06/01/25 22:32 C-Reactive Protein Cancelled 06/01/25 22:32 NT-Pro-B Natriuret Pep Cancelled 06/01/25 22:32 Total Protein Cancelled 06/01/25 22:32 Albumin Cancelled 06/01/25 22:32 Globulin Cancelled 06/01/25 22:32 Urine Color Dark yellow (Yellow) A 06/01/25:45 Urine Appearance Cloudy (CLEAR) A 06/01/25:45 Urine pH 5 (5-7) 06/01/25:45 Ur Specific [place] 1.025 (1.005-1.030) 06/01/25:45 Urine Protein 1+ (Negative) H 06/01/25:45 Urine Glucose (UA) 4+ (Normal) H 06/01/25:45 Urine Ketones Negative (Negative) 06/01/25:45 Urine Blood 3+ (Negative) H 06/01/25:45 Urine Nitrate Negative (Negative) 06/01/25:45 Urine Bilirubin 1+ (Negative) H 06/01/25:45 Urine Urobilinogen 1 mg/dL (Negative) H 06/01/25:45 Ur Leukocyte Esterase 2+ (Negative) H 06/01/25:45 Urine RBC 21-50 /hpf (0-2) H 06/01/25:45 Urine WBC 15-25 /hpf (0-5) H 06/01/25:45 Ur Squamous Epith Cells 5-10 /hpf (0-5) H 06/01/25:45 Amorphous Sediment Not Reportable 06/01/25:45 Urine Bacteria 1+ /hpf (NONE) H 06/01/25:45 Urine Yeast 4+ /hpf H 06/01/25 22:45 All radiology interpretation(s) finalized by discharge Critical Care Time Critical Care Time: Critical Care Time: Yes Total Critical Care Time: 35 Attestation: This case had a high probability of a clinically significant, sudden, or life threatening deterioration of this patient's condition which required my full and direct attention, intervention and personal management. Time is independent of any procedures performed. Discharge Plan Discharge Patient Disposition: Admitted As Inpatient Admit Provider: Joe Haynes Clinical Impression: Sepsis, Acute and chronic respiratory failure with hypercapnia, Pulmonary edema Condition: Serious Coding Level of Care Code ED Advanced Practice Nurse for Chana Glass
[2025-06-01 23:00] LABS: Glucose Urine UA 4+ (Normal); Specific Gravity, Urine 1.025 (1.005-1.030)
[2025-06-01 23:01] LABS: Nitrate Urine Negative (Negative)
[2025-06-01 23:11] LABS: Add Urine Microscopic? YES; UA Manual Slide Review YES
[2025-06-01 23:40] LABS: Lactic Sepsis W/Reflex 1.0 mmol/L (0.5-2.2)
[2025-06-01 23:52] LABS: ABG PH Result 7.28 (7.35-7.45); Arterial Blood Gas Hematocrit 27.0 % (42-52); Blood Gas Allen Test Pos; Blood Gas LPM 3.0 %; Blood Gas Operator Identificat BD; Blood Gas Sample Site Brachial, right; Blood Gas Sample Type Arterial; HCO3 ABG 39.0 mmol/L (22-26); PO2 ABG 85.4 mmHg (80.0-100.0); PO2 FiO2 Ratio Arterial Blood 266
[2025-06-01 23:53] LABS: ABG PCO2 83.2 mmHg (35-45)
[2025-06-01] MEDS: morphine 4 mg/mL SDV 1 mL IVP (23:54)
[2025-06-02] VITALS (77 sets, daily range): BP systolic 97–149; BP diastolic 53–89; PULSE 57–86; RESP 14–26; TEMP 36.1–37; O2SAT 90–99; BMI 43.9
--- NOTE | 2025-06-02 00:12 | P.HP_ITS ---
Providers/Chief Complaint 2 Admitting Physician: Dallas Diaz MD Primary Care Provider: Otilio Huang Chief Complaint: AMS History of Present Illness as per the previous notes and the patient: the patient is a poor historian and unable to take adequate history, no one around from the family members or collateral history provider: Edson Jaffe is a 74 year old male past medical history of pulmonary embolism, he had recent history of admission for GI bleed, acute anemia, hypertension, hyperlipidemia, history of systolic diastolic CHF, history of PCI in January 2025 [facility] in [place], on Plavix, atrial fibrillation, chronic indwelling Robertson catheter who presents [facility] due to shortness of breath. He is having altered mentation as well. He has been recently discharged from the hospital on 05/21/2025. And has previous multiple recurrent admissions. The patient arrived from intermediate and is DNR already scanned document in the file. Upon further evaluation and investigation the patient has signs of pulmonary congestion and was found to be in acute on chronic congestive heart failure with signs of fluid overload and kept on bipap. UA analysis was not a clean-catch however it was dirty looking therefore based on possible urosepsis leading to respiratory distress and altered mentation patient started on broad-spectrum antibiotics with CPAP/BiPAP to help with the shortness of breath and fluid overload. Review of Systems 2 General: Reports: ROS unobtainable due to mental status Medications/Allergies Home Medications ?Medication ?Instructions ?Recorded ?Confirmed ?Last Taken ?Type albuterol sulfate 90 mcg/actuation 2 puff inhalation Q 4H PRN 11/02/24 05/18/25 12/05/24 History aerosol inhaler Shortness Of Breath Or [place] ing aluminum-mag hydroxide-simethicone 30 ml PO Q2H PRN 05/18/25 04/05/25 History 400 mg-400 mg-40 mg/5 mL oral susp indigeston/heartbur n/gas (Mylanta Maximum Strength) bisacodyl 10 mg rectal suppository 10 mg ME .Q72H PRN Constipation 11/02/24 05/18/25 Unknown History docusate sodium 100 mg capsule 100 mg PO BID 11/02/24 05/18/25 05/17/25 History (Colace) ergocalciferol (vitamin D2) 1,250 50,000 mcg PO Q30D 0 11/02/24 05/18/25 03/28/25 History mcg (50,000 unit) capsule fluticasone fur. 200 mcg-umeclid 1 inh inhalation THUY Y 11/02/24 05/18/25 05/17/25 History 62.5 mcg-vilant 25 mcg inhalat.powder (Trelegy Ellipta) magnesium hydroxide 400 mg/5 mL 30 ml PO DAILY PRN Con stipation 11/02/24 05/18/25 02/25/25 08:30 History oral suspension (Milk of Magnesia) multivitamin 1 tab PO QAM 11/02/2405/17/25 History polyethylene glycol 3350 17 17 g PO DAILY PRN bowel ma nagement 11/02/24 05/18/25 11/20/24 History gram/dose oral powder (Miralax) sennosides 8.6 mg tablet (senna) 8.6 mg PO DAILY PRN C onstipation 11/02/24 05/18/25 02/09/25 History Right cockup splint #1 ea 11/28/24 05/18/25 Unkn own Rx acetaminophen 325 mg tablet 650 mg PO Q4H PRN elevated 12/06/24 05/18/25 01/30/25 History (Tylenol) temp/pain loperamide 2 mg tablet (Imodium 2 mg PO Q6H PRN Diarrh ea 01/28/25 05/18/25 05/13/25 19:15 History A-D) oxycodone-acetaminophen 10 mg-325 1 tab PO Q6H PRN Deb n 01/28/25 05/18/25 05/16/25 History mg tablet albuterol sulfate 2.5 mg/3 mL 2.5 mg continuous nebuli zation 03/05/25 05/18/25 03/04/25 11:40 History (0.083 %) solution for nebulization .TID PRN Shortness Of Breath clopidogrel 75 mg tablet 75 mg PO DAILY 03/05/25 09/2 09/2105/17/25 History melatonin 3 mg tablet 6 mg PO BEDTIME PRN Insomnia 03/05/25 05/18/25 05/13/25 21:35 History nitroglycerin 0.4 mg sublingual See Rx Instructions .R oute .COMPLEX 03/05/25 05/18/25 Unknown History tablet triamcinolone acetonide 0.5 % See Rx Instructions .Rou te .COMPLEX 03/05/25 05/18/25 05/18/25 History topical cream empagliflozin 10 mg tablet 10 mg PO DAILY 04/06/2505/17/25 History (Jardiance) fluoxetine 20 mg capsule 20 mg PO DAILY 04/06/2504/2905/17/25 History gabapentin 300 mg capsule 300 mg PO BID 04/06/2505/1805/17/25 History levothyroxine 50 mcg tablet 50 mcg PO DAILY 04/06/25 0 05/18/25 05/17/25 History potassium chloride 10 mEq 10 meq PO DAILY 04/06/2505/17/25 History tablet,extended release(part/cryst) metoprolol tartrate 25 mg tablet 12.5 mg PO DAILY 03/2105/18/25 05/17/25 History semaglutide 1 mg/dose (4 mg/3 mL) 1 mg SUBCUT Q7D 03/2105/18/25 04/28/25 History subcutaneous pen injector (Ozempic) buspirone 5 mg tablet 5 mg PO BID anxiety 05/14/25 05/18/25 05/17/25 History fluoxetine 10 mg tablet 10 mg PO DAILY 05/18/2504/2905/17/25 History pantoprazole 40 mg tablet,delayed See Rx Instructions .Route .COMPLEX 05/18/25 05/18/25 05/17/25 History release sucralfate 100 mg/mL oral See Rx Instructions .Route . COMPLEX 05/18/25 05/18/25 05/17/25 History suspension aspirin 81 mg tablet,delayed 81 mg PO DAILY 30 days #3 0 tabs 05/21/25 Unknown Rx release atorvastatin 40 mg tablet 40 mg PO QPM 30 days #30 tab s 05/21/25 05/18/25 05/17/25 Rx bumetanide 2 mg tablet 1 mg (1/2 x 2 mg) PO DAILY 3 0 days 05/21/25 05/18/25 05/17/25 Rx #30 tabs nitroglycerin 0.4 mg sublingual 0.4 mg sublingual Q5M PRN Chest 05/21/25 Unknown Rx tablet Pain 30 days #30 tabs Allergies Allergy/AdvReac Type Severity Reaction Status Date / Time broccoli Allergy ADR-Vomitin Verified 04/24/25 07:51 g PFSH Acute 2 PFSH: Medical History (Updated 06/02/25 @ 00:27 by Joe Haynes MD) UTI (urinary tract infection) Atrial fibrillation Pulmonary embolism Dvt femoral (deep venous thrombosis) Bilateral Acute respiratory failure with hypoxia and hypercarbia Anemia Acute on chronic HFrEF (heart failure with reduced ejection fraction) Morbid obesity with BMI of 40.0-44.9, adult NSTEMI (non-ST elevated myocardial infarction) 02/12/2025 Congestive heart failure CKD (chronic kidney disease) History of deep vein thrombosis DNR (do not resuscitate) custodial resident COPD with acute exacerbation Open wound of right lower leg Open wound of left lower leg Pressure ulcer of right buttock, stage 3 Social History Smoking and tobacco/nicotine status: former use of tobacco/nicotine Quit status (tobacco/nicotine): has quit using Year quit tobacco: 2022 Alcohol intake: former Year of sobriety/quit date alcohol: 2021 Substance/Drug Use: never Additional social history: Patient lives in a intermediate he wants DO NOT RESUSCITATE status as discussed with Cole Sheriff MD on 05/14/2025. His sister Bita Jean-Bapitste phone #[phone] is his next of kin. 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 Vitals/I&O/Wt Last Vital Signs Temp 97.8 F 06/01/25 21:23 Pulse 77 06/02/25 00:05 Resp 22 H 06/02/25 00:05 BP 122/61 06/02/25 00:05 Pulse Ox 94 06/02/25 00:05 O2 Del Method BiPAP 06/02/25 00:05 O2 Flow Rate 3 06/01/25 22:50 FiO2 36 06/02/25 00:05 06/01/25 06/01/25 06/02/25 14:59 22:59 06:59 Intake Total 0 / 0 Balance 0 / 0 Weight last 48 hrs Weight 142.7 kg Physical Exam 2 Narrative: General: alert when called otherwise sleepy on bipap and oriented to person only, lying comfortably without resp distress on NIV HEENT: Normocephalic, atraumatic, grossly unremarkable exam Cardio: normal rate rhythm, however limited exam due to thick chest wall, and therefore cant comment on murmurs or gallops Respiratory: equal air entry but unable to comment on the wheezes or crackles due to thick chest wall. GI: Abdomen soft, nontender, nondistended, normoactive bowel sounds present all 4 quadrants, Neuro: limited exam due to patient being sleepy on bipap, grossly no focal neuro deficit on clinical exam Extremities: Adequate palpable pulses, pitting edema Lower extremities Data 06/01/25 22:32 06/02/25 00:36 A&P Assessment and plan 1. Congestive heart failure: - To start the patient on NIV support for congestive heart failure - 40 mg IV Lasix twice daily with Robertson's in place to monitor intake and output monitoring - Monitor vitals - Troponins and echo repeat 2. Acute hypoxic on chronic hypercapnic respiratory failure: - NIV as per oxygen protocol, respiratory therapist on board - ABG in the morning - send for flu and covid panel considering flu season 3. Severe sepsis: - Blood pressure is stable however patient having altered mentation and hypoxemia, possible source UTI since the urine was dirty looking however it was not a clean-catch - Repeat UA with clean-catch with urine cultures and blood cultures - MRSA - Vanco and Zosyn and further to tailor according to the culture result and MRSA result 4. UTI (urinary tract infection): - Repeat UA with clean-catch and urine cultures were sent - Monitor intake and output - Broad-spectrum antibiotics as mentioned above 5. Coronary artery disease: - Patient has previous history of GI bleeding and has been on aspirin clopidogrel and apixaban however considering his GI bleeding and acute on chronic anemia from the GI losses requiring blood transfusions as per the previous documentation the patient was continued on aspirin and Plavix as per the last discharge on 05/21/2025. - Continue aspirin and Plavix after medication confirmation reconciliation 6. Atrial fibrillation: -Patient used to be on apixaban, but due to acute GI blood loss anemia it was held - To continue on aspirin and Plavix -Continue home dose metoprolol 12.5 mg daily after reconciliation - Telemetry monitoring - Monitor vitals 7. Acute blood loss anemia: - Currently stable CBC, continue to monitor hemoglobin 8. Hypothyroidism: Patient on home dose of levothyroxine 50 mcg daily Medication to resume after reconciliation 9. COPD (chronic obstructive pulmonary disease): DuoNebs as needed for shortness of breath 10. Diabetes mellitus: Insulin sliding scale and follow blood glucose 11. Pulmonary embolism: Patient used to be on apixaban however considering benefits and risk of acute blood loss anemia leading to soft blood pressure and requiring transfusions as per the previous documentation the patient was only kept on aspirin and clopidogre for coronary artery disease. Apixaban was held PDMP PDMP Reviewed: Not Reviewed Attestations 2 Medical Necessity Statement*: Edson Jaffe's hospital stay will require greater than 2 midnights for management of severe sepsis and acute on chronic congestive heart failure Time Spent in Patient Care: 16 - 35 minutes (>than 50% of time sp ent in counselling and/or direct pt care on unit) . Critical Care Time: The high probability of a clinically significant, sudden or life threatening deterioration, as referenced in this documentation, required my full and direct attention, intervention and personal management. The critical care time shown is in addition to time spent performing any reported separately billable procedures and includes the following: [x] Data and vital sign review and interpretation [x ] Patient assessment, examination and intervention [x] Medication orders and management [x] Patient/Family updates as able [x] Care Coordination and Documentation. Critical Care Time (min): 35 Other Attestations: Patient condition has been discussed at length with the patient/family, I have independently reviewed the chart labs imaging/diagnostics/EKG. the goals of care and code status with the patient/family/NOK/legal sales representative malt liquors, and documented accordingly. The patient/family has been informed about the current condition and further plan of care. Agreed with the plan of care and understood without any language barrier. Every effort was made to ensure accuracy of wetlands technician. Any obvious errors or omissions should be clarified with the author of the document. Coding Level of Care Code Acute Code for Chg Fwd Diagnoses Congestive heart failure I50.9 Acute hypoxic on chronic hypercapnic respiratory failure J96.01; J96.12 Severe sepsis A41.9; R65.20 UTI (urinary tract infection) N39.0 Coronary artery disease I25.10 Atrial fibrillation I48.91 Acute blood loss anemia D62 Hypothyroidism E03.9 COPD (chronic obstructive pulmonary disease) J44.9 Diabetes mellitus E11.9 Pulmonary embolism I26.99
[2025-06-02 01:14] LABS: Alanine Aminotransferase 7 U/L (0-41); Albumin Level 3.1 g/dL (3.5-5.2); Alkaline Phosphatase 116 U/L (40-130); Anion Gap 8.9 (5-19); Aspartate Amino Transferase 7 U/L (0-40); Blood Urea Nitrogen 11 mg/dL (8-23); Calcium 8.3 mg/dL (8.5-10.5); Carbon Dioxide 38 mmol/L (22-29); Chloride 104 mmol/L (98-107); Creatinine Clr Calc Pharmacy 122.3528; Globulin 4.3 g/dL (1.3-4.6); Glucose 117 mg/dL (65-115); Magnesium 2.2 mg/dL (1.7-2.3); NT Pro B Type Natriuretic Pept 3068 pg/mL (0-125); Osmolality Calculated 302 mOsm/kg (285-295); Potassium 4.9 mmol/L (3.5-5.1); Sodium 146 mmol/L (136-145); Total Protein 7.4 g/dL (6.6-8.7)
[2025-06-02] MEDS: FUROsemide 10 mg/mL SDV 10mL 80 MG IVP (01:17)
[2025-06-02] MEDS: heparin 5,000 unit/mL INJ 1 mL 5000 UNIT SUBCUT ×2 (01:21→12:10)
[2025-06-02] MEDS: piperacillin-tazobactam 4.5 GM in sodium chloride 0.9% (plus) 50 ML IV (01:49)
--- NOTE | 2025-06-02 01:54 | USCV_ITS ---
Edson Jaffe Age: 74 Gender: M : 1950 Exam Date: 06/02/2025 09:08 Ordering Phys: Joe Haynes MD Technologist: KYLIE Exam Location: [facility] [place] Indication: CHF BP: 107 / 60 HR: Rhythm: Sinus Technical Quality: Adequate MEASUREMENTS (Male / Female) Normal Values 2D ECHO LV Diastolic Diameter PLAX 5.6 cm 4.2 - 5.9 / 3.9 - 5.3 cm IVS Diastolic Thickness 1.0 cm 0.6 - 1.0 / 0.6 - 0.9 cm IVS Systolic Thickness 2.2 cm LVPW Diastolic Thickness 2.6 cm 0.6 - 1.0 / 0.6 - 0.9 cm LVPW Systolic Thickness 2.4 cm LVOT Diameter 2.0 cm LV Ejection Fraction 2D Teich 58.8 % LV Ejection Fraction MOD 4C 59.5 % LV Ejection Fraction MOD 2C 39.9 % LV Ejection Fraction 2C AL 39.9 % LA Diameter 4.5 cm RA Systolic Volume 4C AL 40.2 ml RA Systolic Volume 4C MOD 38.6 ml LA Sys Volume AL 57.4 cm cubed LA Sys Volume Index AL 20.7 cm cubed/m squared Aorta at Sinotubular Diameter 3.6 cm IVC Diameter 2.2 cm M-MODE LA Ao Ratio MM 1.4 AV Cusp Separation MM 1.6 cm FINDINGS Left Ventricle Diffuse hypokinesis of the left ventricle with ejection fraction around 40%. Right Ventricle Possibly of normal size and ejection fraction Right Atrium Possibly of normal size Left Atrium Possibly of normal size IA Septum Grossly intact Mitral Valve Thickened mitral valve. Aortic Valve Could not be delineated well Tricuspid Valve No gross abnormalities noted Pulmonic Valve Pulmonic valve not well visualized. Pericardium No pericardial effusion. Aorta Normal aortic annulus size. IVC Normal inferior vena cava. CONCLUSIONS Diffuse hypokinesis of the left ventricle with ejection fraction around 40%. Thickened mitral valve. Possibly normal chamber sizes There is no pericardial effusion. Technically difficult study because of the poor ultrasonic window. Dr Michelle Sandhu MD FACC (Electronically Signed) Final Date: 02 June 2025 22:39 S
[2025-06-02 03:06] LABS: Troponin(5th) Baseline 33 ng/L (0-15)
[2025-06-02 03:38] LABS: Glucose Urine UA Norm (Normal); Specific Gravity, Urine 1.005 (1.005-1.030)
[2025-06-02 03:39] LABS: Add Urine Microscopic? YES; Nitrate Urine Negative (Negative); UA Manual Slide Review YES
--- NOTE | 2025-06-02 04:36 | ECG_ITS ---
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 Measurements Intervals [place] Rate: 69 P: 54 CT: 179 QRS: -1 QRSD: 101 T: 37 QT: 399 QTc: 428 Interpretive Statements SINUS RHYTHM LOW QRS VOLTAGE IN EXTREMITY LEADS [QRS DEFLECTION < 0.5 mV IN LIMB LEADS] ANTEROSEPTAL MYOCARDIAL INFARCTION , OF INDETERMINATE AGE [40+ ms Q WAVE IN V1-V4] Compared to ECG 05/18/2025 16:07:13 No significant changes Electronically Signed On 06-03-2025 23:59:07 CDT by Michelle Sandhu M.D. [email or web address]
[2025-06-02 04:59] LABS: Troponin 5 2HR 34.22 ng/L (0-15); Troponin 5 2HR Delta 1.22 ABS# (0-10)
[2025-06-02 05:01] LABS: Alanine Aminotransferase 7 U/L (0-41); Albumin Level 3.2 g/dL (3.5-5.2); Alkaline Phosphatase 119 U/L (40-130); Anion Gap 9.5 (5-19); Aspartate Amino Transferase 8 U/L (0-40); Blood Urea Nitrogen 11 mg/dL (8-23); Calcium 8.1 mg/dL (8.5-10.5); Carbon Dioxide 40 mmol/L (22-29); Chloride 101 mmol/L (98-107); Creatinine Clr Calc Pharmacy 124.3833; Globulin 3.8 g/dL (1.3-4.6); Glucose 94 mg/dL (65-115); Osmolality Calculated 301 mOsm/kg (285-295); Potassium 4.5 mmol/L (3.5-5.1); Sodium 146 mmol/L (136-145); Total Protein 7.0 g/dL (6.6-8.7)
[2025-06-02 05:31] LABS: Respiratory Syncytial Virus Ce NEGATIVE (Negative); SARS-CoV-2 PCR NEGATIVE (Negative)
[2025-06-02 05:59] LABS: ABG PH Result 7.33 (7.35-7.45); Arterial Blood Gas Hematocrit 24.8 % (42-52); Blood Gas Allen Test Pos; Blood Gas Operator Identificat SAM; Blood Gas Sample Site Radial, right; Blood Gas Sample Type Arterial; HCO3 ABG 42.0 mmol/L (22-26); PO2 ABG 92.9 mmHg (80.0-100.0); PO2 FiO2 Ratio Arterial Blood 258
[2025-06-02 06:01] LABS: ABG PCO2 80.3 mmHg (35-45)
--- NOTE | 2025-06-02 06:28 | PC.NURSE ---
Advised Dr. Haynes that patient is still only oriented to person, not following commands well. I don't feel comfortable attempting PO medications at this time, and that metoprolol and plavix are the medications I am most concerned about of those not being given.
[2025-06-02] MEDS: FUROsemide 10 mg/mL SDV 4mL 40 MG IVP ×2 (07:15→18:01)
--- NOTE | 2025-06-02 07:54 | ECG_ITS ---
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 Measurements Intervals [place] Rate: 68 P: 57 KS: 172 QRS: 27 QRSD: 107 T: 34 QT: 423 QTc: 450 Interpretive Statements SINUS RHYTHM WITH OCCASIONAL VENTRICULAR PREMATURE COMPLEXES LOW QRS VOLTAGE IN EXTREMITY LEADS [QRS DEFLECTION < 0.5 mV IN LIMB LEADS] MODERATE INTRAVENTRICULAR CONDUCTION DELAY [105+ ms QRS DURATION, 80+ ms Q/S IN V1/V2, NO Q AND 60+ ms R IN I/aVL/V5/V6] NONSPECIFIC T-WAVE ABNORMALITY Compared to ECG 06/02/2025 04:36:34 Ventricular premature complex(es) now present Intraventricular conduction delay now present T-wave abnormality now present Myocardial infarct finding no longer present Electronically Signed On 06-03-2025 23:59:02 CDT by Michelle Sandhu M.D. [email or web address] [id number]
[2025-06-02] MEDS: pantoprazole 40 mg SDV IVP (09:35)
[2025-06-02] MEDS: piperacillin-tazobactam 3.375 GM in sodium chloride 0.9% (plus) 50 ML IV ×2 (09:39→18:05)
[2025-06-02 09:46] LABS: MRSA PCR OZH (swab) MRSA Detected (Negative)
[2025-06-02 09:51] LABS: Procalcitonin 0.09 ng/mL (0-0.5)
[2025-06-02] MEDS: sucralfate 1 gm/10 mL Oral Liq UDC PO ×3 (10:51→20:25)
[2025-06-02 11:27] LABS: Hematocrit 30.3 % (37-53); Hemoglobin 7.90 g/dL (11.27-16.99); Mean Corpuscular HGB Conc 26.1 g/dL (30-55); Mean Corpuscular Hemoglobin 25.0 pg (27-33); Mean Corpuscular Volume 95.9 fl (82-101); Nucleated Red Blood Cells % 0.3 %; Platelet Count 165 10^3/cmm (157-399); Red Blood Count 3.16 10^6/uL (3.85-5.65); White Blood Count 5.92 10^3/uL (3.29-11.43)
[2025-06-02 11:43] LABS: Troponin 5 6HR 40.40 ng/L (0-15); Troponin 5 6HR Delta 7.40 ng/L (0-12)
--- NOTE | 2025-06-02 13:12 | P.PN_ITS ---
Subjective 2 Subjective: Admitted overnight. H&P and labs appreciated. When first seen in the morning patient is on BiPAP awake and alert. Good amount of urine in [place]. Hemodynamically stable. Denies any nausea, vomiting. Vitals/I&O/Wt Last Vital Signs Temp 97 F L 06/02/25 09:45 Pulse 64 06/02/25 12:00 Resp 21 H 06/02/25 12:00 BP 113/68 06/02/25 12:00 Pulse Ox 98 06/02/25 12:00 O2 Del Method Nasal Cannula 06/02/25 10:45 O2 Flow Rate 2 06/02/25 10:45 FiO2 36 06/02/25 08:40 06/01/25 06/02/25 06/02/25 22:59 06:59 14:59 Intake Total 0 / 0 450 / 450 Output Total 2250 / 2250 1400 / 1400 Balance 0 / 0 -1800 / -1800 -1400 / -1400 Weight last 48 hrs Weight 143.814 kg Weight 147 kg Weight 142.7 kg Physical Exam 2 Narrative: General: AO x 2 to 3, slightly drowsy, on BiPAP, no acute distress, morbidly obese HEENT: Normocephalic, atraumatic, grossly unremarkable exam Cardio: normal rate rhythm, however limited exam due to thick chest wall, and therefore cant comment on murmurs or gallops Respiratory: Normal vesicular breath sounds all over lung portillo occasional rhonchi, bilateral diffuse rhonchi and crackles all over lung portillo right more than left. GI: Abdomen soft, nontender, nondistended, normoactive bowel sounds present all 4 quadrants, Neuro: limited exam due to patient being sleepy on bipap, grossly no focal neuro deficit on clinical exam Extremities: Adequate palpable pulses, pitting edema Lower extremities Urinary Catheter Management: Robertson: Cath Placed During This Visit: yes Reason for Continuing Indwelling Catheter: Acute Urinary Retention or Obstruction Urinary Catheter Date of Insertion: 06/02/25 Urinary Catheter Time of Insertion: 02:20 Data 06/02/25 10:33 06/02/25 04:12 Micro: Microbiology 06/02/25 02:35 Bacterial Antigens - Final Urine Kidney 06/02/25 00:36 Blood Culture - Preliminary Blood SPECIMEN COLLECTED 06/01/25 22:32 Blood Culture - Preliminary Blood SPECIMEN COLLECTED A&P Assessment and plan 1. Acute hypoxic on chronic hypercapnic respiratory failure: Most likely in setting of congestive heart failure along with poor mentation due to sepsis. Oxygen supplementation keeping saturation over 90%. Continue BiPAP for now. Transition to nasal cannula once patient more awake. Will plan for repeat ABG 3 hours while being on nasal cannula to rule out worsening hypercapnia. COVID-19 PCR, RSV, influenza negative. Check D-dimer. Depending on D-dimer will plan for CT chest versus CTA. Start on DuoNeb every 6 hour, Pulmicort twice daily. Holding off on steroids for now. 2. Acute on chronic combined systolic and diastolic congestive heart failure: Last echocardiogram from March 2025 showed an EF of 35 to 40% with grade 1 diastolic dysfunction, moderate aortic valve stenosis with gradient of 14.2 across the valve. On IV Lasix 40 mg twice daily for now. Hold further Lasix as patient has worsening hypernatremia and significant diuresis. Strict input output charting, daily weights. Repeat BMP in afternoon. Depending on blood pressure will try to add guideline directed medical therapy for congestive heart failure. Change metoprolol to 12.5 mg twice daily for now. If blood pressures tolerate we will plan to add Entresto. 3. COPD (chronic obstructive pulmonary disease): 4. Severe sepsis: Most likely in setting of UTI. Cannot rule out underlying pneumonia. Follow-up blood culture, urine culture. Check sputum culture. MRSA swab positive. Appreciate past culture history positive for Enterococcus VRE UTI, ESBL Proteus UTI, haemophilus influenza in sputum. Continue with IV Zosyn. Switch to oral linezolid Check urine bacterial antigen. 5. Catheter-associated urinary tract infection: 6. Coronary artery disease: - Patient has previous history of GI bleeding and has been on aspirin clopidogrel and apixaban however considering his GI bleeding and acute on chronic anemia from the GI losses requiring blood transfusions as per the previous documentation the patient was continued on aspirin and Plavix as per the last discharge on 05/21/2025. Appreciate troponin cycled. - Continue aspirin and Plavix after medication confirmation reconciliation 7. Longstanding persistent atrial fibrillation: Currently rate controlled. Continue with metoprolol. Not on anticoagulation given GI bleed. 8. Acute blood loss anemia: Hemoglobin so far stable. Add Protonix 40 mg twice daily. Continue with Carafate. Target hemoglobin more than 8. Will transfuse accordingly. 9. Hypothyroidism: Patient on home dose of levothyroxine 50 mcg daily Medication to resume after reconciliation 10. Diabetes mellitus: Last A1c of 5.5. Patient does not seem to be on any medication for diabetes at home. Hypoglycemia protocol. 11. Pulmonary embolism: IVC filter in place. Not on anticoagulation given GI bleed. Check D-dimer as above. 12. S/P IVC filter: 13. Morbid obesity with BMI of 40.0-44.9, adult: 14. Chronic indwelling Robertson catheter: Plan: DNR/DNI Cardiac diet Protonix will be sufficient for DVT prophylaxis Heparin 5000 every 12 hourly for DVT prophylaxis PDMP PDMP Reviewed: Not Reviewed Attestations 2 Medical Necessity Statement*: Requires further hospitalization for management of acute on chronic hypoxic and hypercapnic respiratory failure in setting of congestive heart failure, UTI leading to altered mental status, hypernatremia Other Coding Information Prolonged care (total time indicated above or notated here) Diagnoses Acute hypoxic on chronic hypercapnic respiratory failure J96.01; J96.12 Acute on chronic combined systolic and diastolic congestive heart failure I50.43 Heart failure chronicity: acute on chronic Heart failure type: combined systolic and diastolic COPD (chronic obstructive pulmonary disease) J44.9 Severe sepsis A41.9; R65.20 Catheter-associated urinary tract infection T83.511A; N39.0 Indwelling urinary catheter type: indwelling urethral catheter Coronary artery disease I25.10 Longstanding persistent atrial fibrillation I48.11 Atrial fibrillation type: longstanding persistent Acute blood loss anemia D62 Hypothyroidism E03.9 Diabetes mellitus E11.9 Pulmonary embolism I26.99 S/P IVC filter Z95.828 Morbid obesity with BMI of 40.0-44.9, adult E66.01; Z68.41 Chronic indwelling Robertson catheter Z97.8
[2025-06-02 13:53] LABS: ABG PH Result 7.32 (7.35-7.45); Arterial Blood Gas Hematocrit 24.3 % (42-52); Blood Gas Allen Test Pos; Blood Gas LPM 2.0 %; Blood Gas Operator Identificat GD; Blood Gas Sample Site Radial, left; Blood Gas Sample Type Arterial; Carboxyhemoglobin 2.0 %THgb (0.4-20.1); Glucose Level-ABG 109.0 mg/dL (70-115); HCO3 ABG 43.5 mmol/L (22-26); Ionized Calcium Level - ABG 1.1 mmol/L (1.1-1.4); Methemoglobin 0.3 % (0.4-1.5); Oxygen Saturation ABG 98.8; PO2 ABG 105.0 mmHg (80.0-100.0); PO2 FiO2 Ratio Arterial Blood 375; Potassium Level - ABG 3.5 mmol/L (3.5-5.0); Sodium Level - ABG 145.0 mmol/L (131-143)
[2025-06-02 13:55] LABS: ABG PCO2 85.0 mmHg (35-45)
[2025-06-02 16:21] LABS: Blood Urea Nitrogen 11 mg/dL (8-23); Calcium 8.0 mg/dL (8.5-10.5); Carbon Dioxide 38 mmol/L (22-29); Chloride 98 mmol/L (98-107); Creatinine Clr Calc Pharmacy 122.8788; Glucose 88 mg/dL (65-115); Osmolality Calculated 293 mOsm/kg (285-295); Sodium 142 mmol/L (136-145)
[2025-06-02 16:24] LABS: Anion Gap 10.4 (5-19); Potassium 4.4 mmol/L (3.5-5.1)
[2025-06-03] VITALS (43 sets, daily range): BP systolic 84–147; BP diastolic 45–91; PULSE 56–78; RESP 13–29; TEMP 35.6–37.2; O2SAT 90–99
[2025-06-03] MEDS: piperacillin-tazobactam 3.375 GM in sodium chloride 0.9% (plus) 50 ML IV ×3 (01:34→17:52)
[2025-06-03] MEDS: heparin 5,000 unit/mL INJ 1 mL 5000 UNIT SUBCUT ×2 (01:34→12:24)
[2025-06-03 04:22] LABS: Hematocrit 26.9 % (37-53); Hemoglobin 7.30 g/dL (11.27-16.99); Mean Corpuscular HGB Conc 27.1 g/dL (30-55); Mean Corpuscular Hemoglobin 25.2 pg (27-33); Mean Corpuscular Volume 92.8 fl (82-101); Nucleated Red Blood Cells % 0.3 %; Platelet Count 154 10^3/cmm (157-399); Red Blood Count 2.90 10^6/uL (3.85-5.65); White Blood Count 6.72 10^3/uL (3.29-11.43)
[2025-06-03] MEDS: multivitamin therapeutic Tablet 1 TAB PO (04:37)
[2025-06-03] MEDS: pantoprazole 40 mg SDV IVP ×2 (04:41→17:51)
[2025-06-03 04:46] LABS: Alanine Aminotransferase 6 U/L (0-41); Albumin Level 2.8 g/dL (3.5-5.2); Alkaline Phosphatase 112 U/L (40-130); Aspartate Amino Transferase 9 U/L (0-40); Blood Urea Nitrogen 12 mg/dL (8-23); Calcium 8.1 mg/dL (8.5-10.5); Chloride 97 mmol/L (98-107); Creatinine Clr Calc Pharmacy 122.8788; Globulin 3.7 g/dL (1.3-4.6); Glucose 80 mg/dL (65-115); Osmolality Calculated 293 mOsm/kg (285-295); Sodium 142 mmol/L (136-145); Total Protein 6.5 g/dL (6.6-8.7)
[2025-06-03 05:08] LABS: Carbon Dioxide 41 mmol/L (22-29)
[2025-06-03 05:09] LABS: Anion Gap 8.1 (5-19); Potassium 4.1 mmol/L (3.5-5.1)
[2025-06-03] MEDS: FUROsemide 10 mg/mL SDV 4mL 40 MG IVP (06:41)
--- NOTE | 2025-06-03 08:00 | CTR_ITS ---
PROCEDURE INFORMATION: Exam: CT Chest Without Contrast; Diagnostic Exam date and time: 06/03/2025 2:19 AM Age: 74 years old Clinical indication: Shortness of breath; Additional info: Hypoxic and hypercapnic respiratory failure, TECHNIQUE: Imaging protocol: Diagnostic computed tomography of the chest without contrast. Radiation optimization: All CT scans at this facility use at least one of these dose optimization techniques: automated exposure control; mA and/or kV adjustment per patient size (includes targeted exams where dose is matched to clinical indication); or iterative reconstruction. COMPARISON: [place] [id number] 05/18/2025 11:15 AM RADIATION DOSE METRICS: Total DLP (mGy-cm): 906.41 FINDINGS: Lungs: Dependent atelectasis in each lung base. Pleural spaces: Small bilateral pleural effusions. Small/moderate bilateral pleural effusions. Heart: Cardiomegaly. Coronary arteries: Coronary artery calcification. Lymph nodes: Unremarkable. No enlarged lymph nodes. Vasculature: Barely imaged IVC filter. Bones/joints: Unremarkable. No acute fracture. Soft tissues: Unremarkable. CT/CT chest wo con [id number] IMPRESSION: Bilateral pleural effusions.
[2025-06-03] MEDS: sucralfate 1 gm/10 mL Oral Liq UDC PO ×4 (08:05→20:46)
[2025-06-03 09:39] LABS: Magnesium 1.9 mg/dL (1.7-2.3)
--- NOTE | 2025-06-03 11:52 | P.PN_ITS ---
Subjective 2 Subjective: Admitted overnight. H&P and labs appreciated. When first seen in the morning patient is on BiPAP awake and alert. Good amount of urine in [place]. Hemodynamically stable. Denies any nausea, vomiting. Vitals/I&O/Wt Last Vital Signs Temp 96.7 F L 06/03/25 11:17 Pulse 66 06/03/25 11:17 Resp 20 H 06/03/25 11:17 BP 105/55 06/03/25 11:17 Pulse Ox 99 06/03/25 11:00 O2 Del Method Nasal Cannula 06/03/25 07:47 O2 Flow Rate 2 06/03/25 07:47 FiO2 36 06/03/25 00:00 06/02/25 06/03/25 06/03/25 22:59 06:59 14:59 Intake Total 590 / 640 230 / 870 120 / 120 Output Total 120 / 1520 Balance 590 / -760 110 / -650 120 / 120 Weight last 48 hrs Weight 141 kg Weight 143.814 kg Weight 147 kg Weight 142.7 kg Physical Exam 2 Narrative: General: No acute distress, AO x 3, morbidly obese on 2 L nasal cannula HEENT: Normocephalic, atraumatic, grossly unremarkable exam Cardio: normal rate rhythm, however limited exam due to thick chest wall, and therefore cant comment on murmurs or gallops Respiratory: Normal vesicular breath sounds all over lung portillo occasional rhonchi, bilateral diffuse rhonchi and crackles all over lung portillo right more than left. GI: Abdomen soft, nontender, nondistended, normoactive bowel sounds present all 4 quadrants, Neuro: limited exam due to patient being sleepy on bipap, grossly no focal neuro deficit on clinical exam Extremities: Adequate palpable pulses, pitting edema Lower extremities Urinary Catheter Management: Robertson: Cath Placed During This Visit: yes Reason for Continuing Indwelling Catheter: Accurate Measurement of Urinary Output in Critically Ill Patients Urinary Catheter Date of Insertion: 06/02/25 Urinary Catheter Time of Insertion: 02:20 Data 06/03/25 03:25 06/03/25 03:25 Micro: Microbiology 06/01/25 22:45 Urine Culture - Preliminary Urine,Clean Catch Yeast species 06/02/25 00:36 Blood Culture - Preliminary Blood NEGATIVE TO DATE 06/01/25 22:32 Blood Culture - Preliminary Blood NEGATIVE TO DATE 06/02/25 02:35 Bacterial Antigens - Final Urine Kidney A&P Assessment and plan 1. Acute hypoxic on chronic hypercapnic respiratory failure: Most likely in setting of congestive heart failure along with poor mentation due to sepsis. Oxygen supplementation keeping saturation over 90%. Continue BiPAP for now. Transition to nasal cannula once patient more awake. Will plan for repeat ABG 3 hours while being on nasal cannula to rule out worsening hypercapnia. COVID-19 PCR, RSV, influenza negative. Check D-dimer. Depending on D-dimer will plan for CT chest versus CTA. Start on DuoNeb every 6 hour, Pulmicort twice daily. Holding off on steroids for now. 2. Acute on chronic combined systolic and diastolic congestive heart failure: Last echocardiogram from March 2025 showed an EF of 35 to 40% with grade 1 diastolic dysfunction, moderate aortic valve stenosis with gradient of 14.2 across the valve. On IV Lasix 40 mg twice daily for now. Hold further Lasix as patient has worsening hypernatremia and significant diuresis. Strict input output charting, daily weights. Repeat BMP in afternoon. Depending on blood pressure will try to add guideline directed medical therapy for congestive heart failure. Change metoprolol to 12.5 mg twice daily for now. If blood pressures tolerate we will plan to add Entresto. 3. COPD (chronic obstructive pulmonary disease): 4. Severe sepsis: Most likely in setting of UTI. Cannot rule out underlying pneumonia. Follow-up blood culture, urine culture. Check sputum culture. MRSA swab positive. Appreciate past culture history positive for Enterococcus VRE UTI, ESBL Proteus UTI, haemophilus influenza in sputum. Continue with IV Zosyn. Switch to oral linezolid Check urine bacterial antigen. 5. Catheter-associated urinary tract infection: 6. Coronary artery disease: - Patient has previous history of GI bleeding and has been on aspirin clopidogrel and apixaban however considering his GI bleeding and acute on chronic anemia from the GI losses requiring blood transfusions as per the previous documentation the patient was continued on aspirin and Plavix as per the last discharge on 05/21/2025. Appreciate troponin cycled. - Continue aspirin and Plavix after medication confirmation reconciliation 7. Longstanding persistent atrial fibrillation: Currently rate controlled. Continue with metoprolol. Not on anticoagulation given GI bleed. 8. Acute blood loss anemia: Hemoglobin so far stable. Add Protonix 40 mg twice daily. Continue with Carafate. Target hemoglobin more than 8. Will transfuse accordingly. 9. Hypothyroidism: Patient on home dose of levothyroxine 50 mcg daily Medication to resume after reconciliation 10. Diabetes mellitus: Last A1c of 5.5. Patient does not seem to be on any medication for diabetes at home. Hypoglycemia protocol. 11. Pulmonary embolism: IVC filter in place. Not on anticoagulation given GI bleed. Check D-dimer as above. 12. S/P IVC filter: 13. Morbid obesity with BMI of 40.0-44.9, adult: 14. Chronic indwelling Robertson catheter: Plan: DNR/DNI Cardiac diet Protonix will be sufficient for DVT prophylaxis Heparin 5000 every 12 hourly for DVT prophylaxis Plan for the day: Respiratory failure seems to be improving. Continue oxygen supplementation keeping saturation over 90%. BiPAP nightly. Patient developing mild contraction alkalosis today. Switch Lasix to Bumex 1 mg p.o. twice daily. Add Diamox to 50 mg oral daily. Hemoglobin 7.2. History of recent GI bleed. Continue Protonix 40 mg twice daily, Carafate ACHS. Target hemoglobin more than 8. Transfuse 1 unit of PRBC. Can plan for Lasix around transfusion. Repeat stool for occult blood. Currently patient on DAPT. For now hold off on aspirin. Continue with Plavix. If stool for occult blood negative can restart aspirin. Follow-up blood culture. Appreciate CT chest. Continue IV antibiotics for now. Follow-up urine culture. Sputum culture pending. Transfer to [facility]. 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 failure I50.43 Heart failure chronicity: acute on chronic Heart failure type: combined systolic and diastolic COPD (chronic obstructive pulmonary disease) J44.9 Severe sepsis A41.9; R65.20 Catheter-associated urinary tract infection T83.511A; N39.0 Indwelling urinary catheter type: indwelling urethral catheter Coronary artery disease I25.10 Longstanding persistent atrial fibrillation I48.11 Atrial fibrillation type: longstanding persistent Acute blood loss anemia D62 Hypothyroidism E03.9 Diabetes mellitus E11.9 Pulmonary embolism I26.99 S/P IVC filter Z95.828 Morbid obesity with BMI of 40.0-44.9, adult E66.01; Z68.41 Chronic indwelling Robertson catheter Z97.8
[2025-06-04] VITALS: PULSE 68; RESP 14; O2SAT 97
[2025-06-04] MEDS: piperacillin-tazobactam 3.375 GM in sodium chloride 0.9% (plus) 50 ML IV ×2 (01:51→08:27)
[2025-06-04] MEDS: heparin 5,000 unit/mL INJ 1 mL 5000 UNIT SUBCUT (01:52)
[2025-06-04 02:00] VITALS: PULSE 67; RESP 18; O2SAT 98
[2025-06-04 03:12] LABS: Hematocrit 29.8 % (37-53); Hemoglobin 8.30 g/dL (11.27-16.99); Mean Corpuscular HGB Conc 27.9 g/dL (30-55); Mean Corpuscular Hemoglobin 25.0 pg (27-33); Mean Corpuscular Volume 89.8 fl (82-101); Nucleated Red Blood Cells % 0.3 %; Platelet Count 147 10^3/cmm (157-399); Red Blood Count 3.32 10^6/uL (3.85-5.65); White Blood Count 6.51 10^3/uL (3.29-11.43)
[2025-06-04 03:33] LABS: Alanine Aminotransferase 6 U/L (0-41); Albumin Level 2.6 g/dL (3.5-5.2); Alkaline Phosphatase 103 U/L (40-130); Anion Gap 10.2 (5-19); Aspartate Amino Transferase 7 U/L (0-40); Blood Urea Nitrogen 16 mg/dL (8-23); Calcium 8.0 mg/dL (8.5-10.5); Carbon Dioxide 38 mmol/L (22-29); Chloride 98 mmol/L (98-107); Creatinine Clr Calc Pharmacy 97.2400; Globulin 4.0 g/dL (1.3-4.6); Glucose 104 mg/dL (65-115); Osmolality Calculated 297 mOsm/kg (285-295); Potassium 3.2 mmol/L (3.5-5.1); Sodium 143 mmol/L (136-145); Total Protein 6.6 g/dL (6.6-8.7)
[2025-06-04 03:36] LABS: Magnesium 2.0 mg/dL (1.7-2.3)
[2025-06-04 04:00] VITALS: BP 113/67; PULSE 62; RESP 20; TEMP 36.8; O2SAT 97
[2025-06-04] MEDS: multivitamin therapeutic Tablet 1 TAB PO (05:11)
[2025-06-04] MEDS: pantoprazole 40 mg SDV IVP (05:12)
[2025-06-04 08:00] VITALS: BP 123/72; PULSE 69; PULSE 71; RESP 18; RESP 28; TEMP 36.8; O2SAT 96; O2SAT 97
[2025-06-04] MEDS: sucralfate 1 gm/10 mL Oral Liq UDC PO ×2 (08:26→11:17)
--- NOTE | 2025-06-04 08:26 | PC.SOCIAL ---
IMM Update pg 2 of IMM updated and reviewed w/ patient. Copy provided and copy dated, initialed and placed in chart.
[2025-06-04 12:00] VITALS: BP 106/59; PULSE 65; RESP 19; O2SAT 98
--- NOTE | 2025-06-04 12:58 | P.DS_ITS ---
Discharge Providers Date of Admission: 06/02/25 00:12 Date of Discharge: June 04, 2025 Attending Provider at Admission: Joe Haynes MD Attending Provider at Discharge: Becky Zabala MD Consults: None Primary Care Provider: Otilio Huang Diagnoses at Discharge Discharge Diagnosis 1. Acute hypoxic on chronic hypercapnic respiratory failure: Details from hospital stay: Secondary to CHF exacerbation. Uses BiPAP nightly and 3 L/min O2 at baseline. 2. Acute on chronic combined systolic and diastolic congestive heart failure: Details from hospital stay: CHF now stable. 3. COPD (chronic obstructive pulmonary disease): 4. Coronary artery disease: 5. Longstanding persistent atrial fibrillation: 6. Hypothyroidism: 7. Diabetes mellitus: 8. Pulmonary embolism: 9. S/P IVC filter: 10. Morbid obesity with BMI of 40.0-44.9, adult: 11. Chronic indwelling Robertson catheter: 12. Chronic anemia: Reason for Visit Reason for Visit: AMS Brief History: This is a 74-year-old male with history of CAD, history of TX, status post PCI, history of PE and DVT, history of GI bleed, chronic anemia, hypertension, hyperlipidemia, chronic HFrEF (40%), longstanding persistent atrial fibrillation, urinary retention with chronic indwelling Robertson catheter who presented with shortness of breath and altered mental status. He was noted to have prior vascular congestion and acute on chronic hypoxic and hypercarbic respiratory failure requiring BiPAP. There was also concern for sepsis related to possible UTI. Hospital Course Hospital Course He was placed on BiPAP and started on IV diuretics. He has BiPAP at his [facility] but is not completely adherent with that. He is now saturating well on room air. He was transition to oral bumetanide. He was started on low-dose Entresto. Please monitor his blood pressure and obtain labs in 1 week to monitor his renal function. He has chronic anemia with history of GI bleed. He was previously on apixaban which was discontinued. He is on aspirin and Plavix. He had PCI in January. IVC filter was placed in April as he was found to have PE and DVT. He is hemoglobin trended down to 7.3. He was transfused 1 unit of PRBCs. He has a chronic indwelling Robertson catheter for urinary retention. There was concern for catheter associated UTI. Urine culture grew yeast. This likely represents chronic colonization. His procalcitonin was normal making acute infection unlikely. Physical Exam Narrative: General: No acute distress, AO x 3, morbidly obese HEENT: Normocephalic, atraumatic, grossly unremarkable exam Cardio: normal rate rhythm Respiratory: Diminished breath sounds but no rhonchi or crackles noted GI: Abdomen soft, nontender, nondistended, normoactive bowel sounds present all 4 quadrants, Neuro: Alert, oriented x 3 grossly no focal neuro deficit on clinical exam Extremities: Adequate palpable pulses, trace edema Lower extremities Urinary Catheter Management: Robertson: Cath Placed During This Visit: yes Reason for Continuing Indwelling Catheter: Chronic Indwelling Urinary Catheter on Admission Urinary Catheter Date of Insertion: 06/02/25 Urinary Catheter Time of Insertion: 02:20 Discharge Data Studies Completed and Pending Completed Studies During Hospitalization Category Date Time Status CT chest wo con [id number] Routine Cat Scan 06/03/25 08:[address] head wo con* [id number] Stat Cat Scan 06/01/25 22:19 Completed XR chest 1V portable [id number] Stat Exams 06/01/25 22:19 Completed CV. echo limited [id number] Routine Ultrasound 06/02/25 01:54 Completed Pending at discharge Category Date Time Status Blood Culture Stat Lab 06/02/25 00:36 Results Complete Blood Count w/Auto AM LABS Lab 06/05/25 04:00 Ordered Comprehensive Metabolic Panel AM LABS Lab 06/05/25 04:00 Ordered MAG [Magnesium] AM LABS Lab 06/05/25 04:00 Ordered MAG [Magnesium] AM LABS Lab 06/06/25 04:00 Ordered Sputum Culture and Gram Stain Stat Lab 06/02/25 13:16 Uncollected Urine Culture Stat Lab 06/01/25 22:45 Results Radiology Impressions Chest X-Ray 06/01/25 22:19 IMPRESSION: Findings suggestive of CHF with pulmonary edema, pleural effusions, and with superimposed infectious process not excluded. Head CT 06/01/25 22:19 IMPRESSION: 1. No acute intracranial abnormality. 2. Mild sphenoid sinus disease with moderate right and mild left mastoid effusions. Chest CT 06/03/25 08:00 IMPRESSION: Bilateral pleural effusions. Laboratory Results WBC 6.51 10^3/uL (3.29-11.43) 06/04/25 02:53 RBC 3.32 10^6/uL (3.85-5.65) L 06/04/25 02:53 Hgb 8.30 g/dL (11.27-16.99) L 06/04/25 02:53 Hct 29.8 % (37-53) L 06/04/25 02:53 MCV 89.8 fl (82-101) 06/04/25 02:53 MCH 25.0 pg (27-33) L 06/04/25 02:53 MCHC 27.9 g/dL (30-55) L 06/04/25 02:53 RDW 18.8 % (12.1-15.1) H 06/04/25 02:53 Plt Count 147 10^3/cmm (157-399) L 06/04/25 02:53 MPV 10.5 fL (7.4-10.4) H 06/04/25 02:53 Neut % (Auto) 63.2 % 06/04/25 02:53 Lymph % (Auto) 18.6 % 06/04/25 02:53 [place] % (Auto) 14.0 % 06/04/25 02:53 Eos % (Auto) 3.4 % 06/04/25 02:53 Baso % (Auto) 0.3 % 06/04/25 02:53 Neut # (Auto) 4.12 10^3/uL (1.8-7.7) 06/04/25 02:53 Lymph # (Auto) 1.2 10^3/uL (0.8-4.8) 06/04/25 02:53 [place] # (Auto) 0.9 10^3/uL (0.2-0.9) 06/04/25 02:53 Eos # (Auto) 0.2 10^3/uL (0.0-0.8) 06/04/25 02:53 Baso # (Auto) 0.0 10^3/uL (0.0-0.1) 06/04/25 02:53 Nucleated RBC % (auto) 0.3 % 06/04/25 02:53 Nucleated RBCs # 0.0 /100WBC 06/04/25 02:53 D-Dimer 0.67 ug/mLFEU (0-0.59) H 06/02/25 10:33 Specimen Type Arterial 06/02/25 13:35 Sample Site Radial, left 06/02/25 13:35 ABG pH 7.32 (7.35-7.45) L 06/02/25 13:35 ABG pCO2 85.0 mmHg (35-45) H* 06/02/25 13:35 ABG pO2 105.0 mmHg (80.0-100.0) H 06/02/25 13:35 ABG PO2/FiO2 Ratio 375 06/02/25 13:35 ABG HCO3 43.5 mmol/L (22-26) H 06/02/25 13:35 ABG O2 Saturation 98.8 06/02/25 13:35 ABG Base Excess 15.2 mmol/L (-2.0-2.0) H 06/02/25 13:35 Ivan Test Pos 06/02/25 13:35 A-a O2 Gradient Not Reportable 06/02/25 13:35 Hematocrit 24.3 % (42-52) L 06/02/25 13:35 Hgb O2 Saturation 96.5 % (95-100) 06/02/25 13:35 Carboxyhemoglobin 2.0 %THgb (0.4-20.1) 06/02/25 13:35 Methemoglobin 0.3 % (0.4-1.5) L 06/02/25 13:35 Total Hemoglobin 7.9 g/dL (14-18) L 06/02/25 13:35 Sodium 145.0 mmol/L (131-143) H 06/02/25 13:35 Potassium 3.5 mmol/L (3.5-5.0) 06/02/25 13:35 Glucose 109.0 mg/dL (70-115) 06/02/25 13:35 Ionized Calcium 1.1 mmol/L (1.1-1.4) 06/02/25 13:35 O2 Delivery Device Nc 06/02/25 13:35 O2 Liters/Min 2.0 % 06/02/25 13:35 FiO2 28.0 % 06/02/25 13:35 Wool Broker ID Gd 06/02/25 13:35 Sodium 143 mmol/L (136-145) 06/04/25 02:53 Potassium 3.2 mmol/L (3.5-5.1) L 06/04/25 02:53 Chloride 98 mmol/L (98-107) 06/04/25 02:53 Carbon Dioxide 38 mmol/L (22-29) H 06/04/25 02:53 Anion Gap 10.2 (5-19) 06/04/25 02:53 BUN 16 mg/dL (8-23) 06/04/25 02:53 Creatinine 1.0 mg/dL (0.7-1.2) 06/04/25 02:53 GFR Calculation Not Reportable 06/04/25 02:53 Glucose 104 mg/dL (65-115) 06/04/25 02:53 POC Glucose 157 mg/dL (70-110) H 06/04/25 11:03 Calculated Osmolality 297 mOsm/kg (285-295) H 06/04/25 02:53 Lactic Acid 1.0 mmol/L (0.5-2.2) 06/01/25 22:47 Calcium 8.0 mg/dL (8.5-10.5) L 06/04/25 02:53 Magnesium 2.0 mg/dL (1.7-2.3) 06/04/25 02:53 Total Bilirubin 0.2 mg/dL (0.15-1.2) 06/04/25 02:53 AST 7 U/L (0-40) 06/04/25 02:53 ALT 6 U/L (0-41) 06/04/25 02:53 Alkaline Phosphatase 103 U/L (40-130) 06/04/25 02:53 Troponin T Baseline 33 ng/L (0-15) H 06/02/25 02:42 Troponin T 120 Minute 34.22 ng/L (0-15) H 06/02/25 04:12 Delta Troponin T 1.22 ABS# (0-10) 06/02/25 04:12 Troponin T Hi Sens 6Hr 40.40 ng/L (0-15) H 06/02/25 10:33 Troponin T Hi Sens 6Hr Delta 7.40 ng/L (0-12) 06/02/25 10:33 C-Reactive Protein 16.9 mg/L (0.0-4.9) H 06/02/25 00:36 NT-Pro-B Natriuret Pep 3068 pg/mL (0-125) H 06/02/25 00:36 Total Protein 6.6 g/dL (6.6-8.7) 06/04/25 02:53 Albumin 2.6 g/dL (3.5-5.2) L 06/04/25 02:53 Globulin 4.0 g/dL (1.3-4.6) 06/04/25 02:53 Procalcitonin 0.09 ng/mL (0-0.5) 06/02/25 04:12 Urine Color Yellow (Yellow) 06/02/25 02:35 Urine Appearance Clear (CLEAR) 06/02/25 02:35 Urine pH 7 (5-7) 06/02/25 02:35 Ur Specific [place] 1.005 (1.005-1.030) 06/02/25 02:35 Urine Protein Neg (Negative) 06/02/25 02:35 Urine Glucose (UA) Norm (Normal) 06/02/25 02:35 Urine Ketones Negative (Negative) 06/02/25 02:35 Urine Blood Trace (Negative) H 06/02/25 02:35 Urine Nitrate Negative (Negative) 06/02/25 02:35 Urine Bilirubin Neg (Negative) 06/02/25 02:35 Urine Urobilinogen Norm mg/dL (Negative) 06/02/25 02:35 Ur Leukocyte Esterase Negative (Negative) 06/02/25 02:35 Urine RBC 0-2 /hpf (0-2) 06/02/25 02:35 Urine WBC None /hpf (0-5) 06/02/25 02:35 Ur Squamous Epith Cells 0-2 /hpf (0-5) 06/02/25 02:35 Amorphous Sediment Not Reportable 06/02/25 02:35 Urine Bacteria None /hpf (NONE) 06/02/25 02:35 Urine Yeast 4+ /hpf H 06/01/25 22:45 Nasal MRSA (PCR) [place] detected (Negative) A 06/02/25 03:41 Influenza A (PCR) Negative (Negative) 06/02/25 03:41 Influenza Type B (PCR) Negative (Negative) 06/02/25 03:41 RSV (PCR) Negative (Negative) 06/02/25 03:41 SARS-CoV-2 (PCR) Negative (Negative) 06/02/25 03:41 Blood Type O Positive 06/02/25 10:33 Rho(D) Type Rh positive 06/02/25 10:33 Antibody Screen Negative 06/02/25 10:33 Crossmatch See Detail 06/02/25 10:33 Vitals Last Vital Signs Temp 98.2 F 06/04/25 08:00 Pulse 71 06/04/25 08:00 Resp 28 H 06/04/25 08:00 BP 123/72 06/04/25 08:00 Pulse Ox 97 06/04/25 08:00 O2 Del Method Nasal Cannula 06/04/25 08:00 O2 Flow Rate 2 06/04/25 08:00 FiO2 36 06/04/25 00:00 Discharge Plan Discharge Patient Disposition: Xfer SNF Condition: Fair Prescriptions: New bumetanide 1 mg Tablet 1 mg PO BID Qty: 60 0RF metoprolol tartrate 25 mg Tablet 12.5 mg PO BID@0900,2100 Qty: 60 0RF sacubitril-valsartan [Entresto] 24-26 mg Tablet 1 tab PO BID Qty: 60 0RF Continued albuterol sulfate 2.5 mg /3 mL (0.083 %) solution for nebulization 2.5 mg continuous nebulization .TID PRN (Reason: Shortness Of Breath) triamcinolone acetonide 0.5 % cream See Rx Instructions .ROUTE .COMPLEX Rx Instructions: 1 application topically to buttocks every shift for itching/rash. acetaminophen [Tylenol] 325 mg Tablet 650 mg PO Q4H PRN (Reason: elevated temp/pain) melatonin 3 mg Tablet 6 mg PO BEDTIME PRN (Reason: Insomnia) clopidogrel 75 mg tablet 75 mg PO DAILY nitroglycerin 0.4 mg tablet, sublingual See Rx Instructions .ROUTE .COMPLEX Rx Instructions: Give 1 tablet 0.4 sublingual every 5 minutes as needed for chest pain x3 doses if no relief call multivitamin Tablet 1 tab PO QAM sennosides [senna] 8.6 mg Tablet 8.6 mg PO DAILY PRN (Reason: Constipation) magnesium hydroxide [Milk of Magnesia] 400 mg/5 mL Suspension 30 ml PO DAILY PRN (Reason: Constipation) bisacodyl 10 mg Suppository 10 mg AL .Q72H PRN (Reason: Constipation) docusate sodium [Colace] 100 mg Capsule 100 mg PO BID ergocalciferol (vitamin D2) 1,250 mcg (50,000 unit) capsule 50,000 mcg PO Q30D polyethylene glycol 3350 [Miralax] 17 gram/dose Powder 17 g PO DAILY PRN (Reason: bowel management) albuterol sulfate 90 mcg/actuation HFA aerosol inhaler 2 puff INHALATION Q4H PRN (Reason: Shortness Of Breath Or Wheezing) alum-mag hydroxide-simeth [Mylanta Maximum Strength] 400-400-40 mg/5 mL Suspension 30 ml PO Q2H PRN (Reason: [place]ig[place]/heartburn/gas) Trelegy Ellipta 200-62.5-25 mcg blister with device 1 inh INHALATION DAILY loperamide [Imodium A-D] 2 mg Tablet 2 mg PO Q6H PRN (Reason: Diarrhea) oxycodone-acetaminophen 10-325 mg tablet 1 tab PO Q6H PRN (Reason: Pain) gabapentin 300 mg capsule 300 mg PO BID levothyroxine 50 mcg tablet 50 mcg PO DAILY fluoxetine 20 mg capsule 20 mg PO DAILY Rx Instructions: along with 10mg to=30mg total potassium chloride 10 mEq tablet,ER particles/crystals 10 meq PO DAILY Jardiance 10 mg tablet 10 mg PO DAILY Ozempic 1 mg/dose (4 mg/3 mL) pen injector 1 mg SUBCUT Q7D Rx Instructions: buspirone 5 mg tablet 5 mg PO BID fluoxetine 10 mg tablet 10 mg PO DAILY Rx Instructions: along with 20mg to=30mg total sucralfate 100 mg/mL suspension See Rx Instructions .ROUTE .COMPLEX Rx Instructions: Give 10 ml by mouth before meals and at bedtime. pantoprazole 40 mg tablet,delayed release (DR/EC) See Rx Instructions .ROUTE .COMPLEX Rx Instructions: Take 1 tablet by mouth twice daily for 6 weeks to end on 06/26/25, then start 1 tablet daily, thereafter. aspirin 81 mg Tablet,Delayed Release (Dr/Ec) 81 mg PO DAILY 30 Days Qty: 30 0RF atorvastatin 40 mg tablet 40 mg PO QPM 30 Days Qty: 30 0RF Discontinued metoprolol tartrate 25 mg Tablet 12.5 mg PO DAILY nitroglycerin 0.4 mg Tablet, Sublingual 0.4 mg sublingual Q5M PRN (Reason: Chest Pain) 30 Days Qty: 30 0RF linezolid 600 mg tablet 600 mg PO BID Discharge Order = DC NOW: Discharge Order (Routine); Ordered 06/04/25 Ordered By: Becky Zabala Other Ambulatory Orders: Basic Metabolic Panel (Routine) Timeframe: 1 Week Facility: [facility] - Location: Lab - Main Lab Ordered By: Becky Zabala Referrals: Otilio Huang [Primary Care Provider, Internal Medicine] - 06/12/25 11:00 am Discharge Diet: Usual diet Discharge Activity: Resume usual activity Patient Instructions: Altered Mental Status (ED), Patient Portal & Diana Instructions Discharge Attestations Time Spent in Discharge Care*: greater than 30 min Status at Discharge: Cognitive status at discharge: cognitively intact , Behavioral status at discharge: [facility] , Quality Metrics Clinical Quality Measures [ No reported AMI, CVA or VTE this stay] Coding Level of Care Code 03853 Diagnoses Acute hypoxic on chronic hypercapnic respiratory failure J96.01; J96.12 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
[2025-06-04 15:07] VITALS: PULSE 56; RESP 18; O2SAT 95
[2025-06-04] MEDS: HYDROcodone-acetaminophen 5-325 mg Tablet 1 TAB PO (15:32)
== END 2025-06-04 15:40 | disposition skilled nursing facility (03) | DRG 189 ==
LOC: ER 06-02 00:17 → ICU 06-02 00:40 → CSU 06-03 15:31
PROVIDERS: Student in an Organized Health Care Education/Training Program; Admitting Provider Student in an Organized Health Care Education/Training Program; Emergency Provider Emergency Medicine; PCP Student in an Organized Health Care Education/Training Program; Visit Provider Student in an Organized Health Care Education/Training Program
DX: J96.22 Acute and chronic respiratory failure with hypercapnia (principal); I50.43 Acute on chronic combined systolic (congestive) and diastolic (congestive) heart failure; I48.11 Longstanding persistent atrial fibrillation; Z68.41 Body mass index [BMI] 40.0-44.9, adult; D62 Acute posthemorrhagic anemia; J96.21 Acute and chronic respiratory failure with hypoxia; I11.0 Hypertensive heart disease with heart failure; J44.9 Chronic obstructive pulmonary disease, unspecified; I25.10 Atherosclerotic heart disease of native coronary artery without angina pectoris; E03.9 Hypothyroidism, unspecified; E11.9 Type 2 diabetes mellitus without complications; Z66 Do not resuscitate; E66.01 Morbid (severe) obesity due to excess calories; R33.9 Retention of urine, unspecified; D64.9 Anemia, unspecified; Z86.711 Personal history of pulmonary embolism; Z86.718 Personal history of other venous thrombosis and embolism; I25.2 Old myocardial infarction; Z98.61 Coronary angioplasty status; E78.5 Hyperlipidemia, unspecified; Z79.899 Other long term (current) drug therapy; R41.82 Altered mental status, unspecified; Z79.02 Long term (current) use of antithrombotics/antiplatelets; Z79.890 Hormone replacement therapy; Z79.82 Long term (current) use of aspirin; Z87.891 Personal history of nicotine dependence; Z79.01 Long term (current) use of anticoagulants; Z95.828 Presence of other vascular implants and grafts; Z97.8 Presence of other specified devices
CPT/HCPCS: 36415; 36416; 36430; 36600; 51702; 70450; 71045; 71250; 80048; 80051; 80053; 81001; 82330; 82803; 82805; 82962; 83605; 83735; 83880; 84145; 84484; 85025; 85378; 86140; 86403; 86850; 86900; 86920; 87040; 87086; 87106; 87637; 93005; 93308; 94640; 94660; 96365; 96372; 96375; 97161; 97167; 97535; 99291; J1644; J1938; J2270; J2470; J2543; J3372; J7626; J9999; P9016

== ENCOUNTER 2025-06-08 00:12 | Emergency (ER) | payer MEDICARE, MEDICAID, SELFPAY ==
--- OUTSIDE RECORDS SUMMARY | 2025-06-01 00:20 | XMS_ITS | Encounter Summary ---
Author Organization [facility] Address 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 empagliflozin (Jardiance) 10 mg tablet Take 1 Tablet (10 mg) by mouth daily in the morning. 100 Tablet 3 04/01/2025 bumetanide (BUMEX) 1 mg tablet Take 1 mg by mouth daily at bedtime. oxyCODONE-acetamin ophen (PERCOCET) 10-325 mg Tablet Take 1 Tablet by mouth every 6 hours as needed for Pain, Severe. docusate sodium (COLACE) 100 mg capsule Take 100 mg by mouth 2 times daily. albuterol (PROVENTIL,VENTOLI N) 2.5 mg /3 mL (0.083 %) Solution for Nebulization Take 3 mL (2.5 mg) by inhalation every 8 hours as needed for Shortness of Breath. 02/19/2025 atorvastatin (LIPITOR) 40 mg tablet Take 1 Tablet (40 mg) by mouth daily at bedtime. 02/19/2025 FLUoxetine (PROzac) 40 mg capsule Take 1 Capsule (40 mg) by mouth daily. Take 20 mg with a 10 mg daily 02/19/2025 levothyroxine 25 mcg tablet Take 1 Tablet (25 mcg) by mouth daily in the morning. 02/20/2025 metoprolol succinate (TOPROL XL) 25 mg Extended Release 24 hour tablet Take 1 Tablet (25 mg) by mouth daily. 02/20/2025 nitroglycerin (NITROSTAT) 0.4 mg Tablet, Sublingual Place 1 Tablet (0.4 mg) under tongue every 5 minutes as needed for Chest Pain (Not to exceed 3 doses, notify physician if chest pain not relieved, hold if systolic BP less than or equal to 90 mmHg). 02/19/2025 pantoprazole (PROTONIX) 40 mg Tablet, Delayed Release (E.C.) Take 1 Tablet (40 mg) by mouth daily before breakfast. 02/20/2025 potassium CHLORIDE (KLOR-CON) 10 mEq Extended Release tablet Take 1 Tablet (10 mEq) by mouth 2 times daily with meals. 02/19/2025 sennosides-docusat e sodium (SENNA-S) 8.6-50 mg tablet Take 1 Tablet by mouth 2 times daily as needed for Constipation. 02/19/2025 clopidogreL (PLAVIX) 75 mg Tablet Take 1 Tablet (75 mg) by mouth daily. 02/20/2025 triamcinolone acetonide (KENALOG) 0.5 % CreamIndications:S tasis dermatitis Apply to affected area 2 times daily. 15 Gram 2 11/20/2024 polyethylene glycol (MIRALAX) 17 gram Powder in Packet Take by mouth 1 time daily as needed for Constipation. ergocalciferol (VITAMIN D2) 50,000 unit capsule Take 50,000 Units by mouth every 30 days. MELATONIN ORAL Take 6 mg by mouth 1 time daily as needed. albuterol sulfate HFA 90 mcg/actuation aerosol inhalerIndications :Asthma with chronic obstructive pulmonary disease (COPD) TAKE 2 PUFFS BY INHALATION EVERY 4 HOURS NEEDED FOR RESPIRATION. 17 Gram 12/19/2023 magnesium hydroxide (MILK OF MAGNESIA) 400 mg/5 mL suspension Take 30 mL by mouth 1 time daily as needed for Constipation. bisacodyL (DULCOLAX) 5 mg Delayed Release tablet Take 5 mg by mouth 1 time daily as needed for Constipation. calcium carbonate-mag hydroxide (MYLANTA SUPREME) 400-135 mg/5 mL Suspension Take 1 mL by mouth. acetaminophen (TYLENOL) 325 mg tablet Take 325 mg by mouth every 4 hours as needed. fluticasone-umecli dinium-vilanterol (Trelegy Ellipta) 200-62.5-25 mcg Disk with DeviceIndications: COPD with exacerbation (CMS/HCC) Take 1 Puff by inhalation daily. 60 Each 11 09/29/2023 gabapentin (NEURONTIN) 300 mg capsuleIndications :Neuroforaminal stenosis of lumbar spine,Acute bilateral low back pain with sciatica, sciatica laterality unspecified Take 1 Capsule (300 mg) by mouth 2 times daily. 120 Capsule 5 09/29/2023 spironolactone (ALDACTONE) 50 mg tablet Take 1 Tablet (50 mg) by mouth daily. 30 Tablet 5 09/29/2023 loperamide (IMODIUM) 2 mg capsule Take 1 Capsule (2 mg) by mouth 4 times daily as needed for Diarrhea/Loose Stools. 30 Capsule 09/29/2023 multivitamin with folic acid 400 mcg Tablet tablet Take 1 Tablet by mouth daily. 30 Tablet 09/29/2023 documented as of this encounter Plan of Treatment Upcoming Encounters Date Type Department Care Team (Late st Contact Info) Description 07/09/2025 10:20 AM MEDICAL RECEPTIONIST MEDICAL ASSISTANT Office Visit [facility] [address] [facility] [address] [place] [id number] Saritha Horton FNP [address] [facility] [address] [place] [phone] 10/24/2025 10:45 AM MEDICAL RECEPTIONIST MEDICAL ASSISTANT Office Visit [facility] [address] [facility] [address] [place] [phone] Dane Sierra MD [address] [facility] [address] [place] [id number] documented as of this encounter Visit Diagnoses Not on filedocumented in this encounter
[2025-06-08] VITALS (13 sets, daily range): BP systolic 100–123; BP diastolic 51–69; PULSE 48–70; RESP 16; TEMP 36.9; O2SAT 93–99; BMI 39.3
--- OUTSIDE RECORDS SUMMARY | 2025-06-08 00:22 | XMS_ITS | Encounter Summary ---
Author Organization [facility] Address [address] [place] [address] Care Team Providers Care Leather Sponger Name Role Phone Roshan Jimenez DO Primary Care Provider Unav ailable Encounter Details Date Type Department Care Team (Latest Contact Info) Description 01/22/1999 Outpatient Historical [facility] [place] [address] [place] [address] Noé Rosa, DPM [address] [place] [address] Ingrowing nail (Primary Dx) Social History Tobacco Use Types Packs/Day Years Used Date Smoking Tobacco: Never Assessed Sex and Gender Information Value Date Recorded Sex Assigned at Not on file 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
--- OUTSIDE RECORDS SUMMARY | 2025-06-08 00:22 | XMS_ITS | Encounter Summary ---
Author Organization [facility] Address [address] [place] [address] Care Team Providers Care Public Services Assistant Name Role Phone Roshan Jimenez DO Primary Care Provider Unav ailable Encounter Details Date Type Department Care Team (Latest Contact Info) Description 05/20/1998 Outpatient [facility] [address] [place] [address] Roshan Jimenez DO NO ADDRESS ON FILE Unspecified essential hypertension (Primary Dx); Obstructive chronic bronchitis without exacerbation (CMS/HCC); Depressive type psychosis; Abdominal pain, unspecified site Social History Tobacco Use Types Packs/Day Years Used Date Smoking Tobacco: Never Assessed Sex and Gender Information Value Date Recorded Sex Assigned at Not on file 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
--- OUTSIDE RECORDS SUMMARY | 2025-06-08 00:22 | XMS_ITS | Encounter Summary ---
Author Organization [facility] Address [address] [place] [address] Care Team Providers Care Sustainability Coordinator Name Role Phone Roshan Jimenez DO Primary Care Provider Unav ailable Encounter Details Date Type Department Care Team (Latest Contact Info) Description 02/04/[address] 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 Gender Identity Not on file Sexual Orientation Not on file documented as of this encounter Plan of Treatment Not on file documented as of this encounter Visit Diagnoses Diagnosis Unspecified essential hypertension- Primary Obesity, unspecified Chronic airway obstruction, not elsewhere classified (CMS/HCC) Chronic airway obstruction, not elsewhere classified Osteoarthrosis, unspecified whether generalized or localized, unspecified site documented in this encounter Care Teams Sustainability Coordinator Relationship Specialty Start Date End Date Roshan Jimenez DO NO ADDRESS ON FILE PCP - General 03/26/03 documented as of this encounter
--- OUTSIDE RECORDS SUMMARY | 2025-06-08 00:22 | XMS_ITS | Encounter Summary ---
Author Organization [facility] Address [address] [place] [address] Care Team Providers Care Automobile Sales Representative Name Role Phone Roshan Jimenez DO Primary Care Provider Unav ailable Encounter Details Date Type Department Care Team (Latest Contact Info) Description 12/22/1999 Outpatient Historical [facility] Axel Armstrong NO ADDRESS ON FILE Localized osteoarthrosis not specified whether primary or secondary, lower leg (Primary Dx); Pain in joint, lower leg Social History Tobacco Use Types Packs/Day Years Used Date Smoking Tobacco: Never Assessed Sex and Gender Information Value Date Recorded Sex Assigned at Not on file 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
--- OUTSIDE RECORDS SUMMARY | 2025-06-08 00:22 | XMS_ITS | Encounter Summary ---
Author Organization [facility] Address [address] [place] [address] Care Team Providers Care Structural Drafter Name Role Phone Roshan Jimenez DO Primary Care Provider Unav ailable Encounter Details Date Type Department Care Team (Latest Contact Info) Description 12/23/1999 Outpatient [facility] [address] [place] [address] Roshan Jimenez DO NO ADDRESS ON FILE Unspecified essential hypertension (Primary Dx); Allergic rhinitis, cause unspecified; Chronic airway obstruction, not elsewhere classified (CMS/HCC); Obesity, unspecified Social History Tobacco Use Types Packs/Day Years Used Date Smoking Tobacco: Never Assessed Sex and Gender Information Value Date Recorded Sex Assigned at Not on file 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
--- OUTSIDE RECORDS SUMMARY | 2025-06-08 00:22 | XMS_ITS | Encounter Summary ---
Author Organization [facility] Address [address] [place] [address] Care Team Providers Care Defense Attorney Name Role Phone Roshan Jimenez DO Primary Care Provider Unav ailable Encounter Details Date Type Department Care Team (Latest Contact Info) Description 09/17/1998 Outpatient [facility] [address] [place] [address] Roshan Jimenez DO NO ADDRESS ON FILE Unspecified essential hypertension (Primary Dx); Obesity, unspecified; Obstructive chronic bronchitis without exacerbation (CMS/HCC); Reflux esophagitis Social History Tobacco Use Types Packs/Day Years Used Date Smoking Tobacco: Never Assessed Sex and Gender Information Value Date Recorded Sex Assigned at Not on file 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
--- OUTSIDE RECORDS SUMMARY | 2025-06-08 00:22 | XMS_ITS | Encounter Summary ---
Author Organization [facility] Address [address] [place] [address] Care Team Providers Care Inflated Ball Molder Name Role Phone Roshan Jimenez DO Primary Care Provider Unav ailable Encounter Details Date Type Department Care Team (Latest Contact Info) Description 03/26/2003 Outpatient Historical [facility] Gastroenterology- [place] [address] [address] Demetri Chávez MD [address] [facility] [address] [place] [address] SCREENING MAL NEOP-COLON (Primary Dx) Social History Tobacco Use Types Packs/Day Years Used Date Smoking Tobacco: Never Assessed Sex and Gender Information Value Date Recorded Sex Assigned at Not on file 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
--- OUTSIDE RECORDS SUMMARY | 2025-06-08 00:22 | XMS_ITS | Encounter Summary ---
Author Organization [facility] Address [address] [place] [address] Care Team Providers Care Propellant Charge Loader Name Role Phone Roshan Jimenez DO Primary Care Provider Unav ailable Encounter Details Date Type Department Care Team (Latest Contact Info) Description 12/31/1997 Outpatient Historical [facility] Axel Armstrong NO ADDRESS ON FILE Localized osteoarthrosis not specified whether primary or secondary, lower leg (Primary Dx) Social History Tobacco Use Types Packs/Day Years Used Date Smoking Tobacco: Never Assessed Sex and Gender Information Value Date Recorded Sex Assigned at Not on file 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
--- OUTSIDE RECORDS SUMMARY | 2025-06-08 00:22 | XMS_ITS | Encounter Summary ---
Author Organization [facility] Address [address] [place] [address] Care Team Providers Care Poultry Dressing Worker Name Role Phone Roshan Jimenez DO Primary Care Provider Unav ailable Encounter Details Date Type Department Care Team (Latest Contact Info) Description 02/10/2004 Outpatient [facility] [address] [place] [address] Roshan Jimenez DO NO ADDRESS ON FILE CHRONIC AIRWAY OBSTRUCTION NEC ([facility]) (Primary Dx); HYPERTENSION NOS; OBESITY NOS; OSTEOARTHROS NOS-UNSPEC Social History Tobacco Use Types Packs/Day Years Used Date Smoking Tobacco: Never Assessed Sex and Gender Information Value Date Recorded Sex Assigned at Not on file 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 Gender Identity Not on file Sexual Orientation Not on file documented as of this encounter Plan of Treatment Not on file documented as of this encounter Visit Diagnoses Diagnosis Chronic airway obstruction, not elsewhere classified ([facility])- Primary Chronic airway obstruction, not elsewhere classified Unspecified essential hypertension Obesity, unspecified Osteoarthrosis, unspecified whether generalized or localized, unspecified site documented in this encounter Care Teams Poultry Dressing Worker Relationship Specialty Start Date End Date Roshan Jimenez DO NO ADDRESS ON FILE PCP - General 03/26/03 documented as of this encounter
--- OUTSIDE RECORDS SUMMARY | 2025-06-08 00:22 | XMS_ITS | Encounter Summary ---
Author Organization [facility] Address [address] [place] [address] Care Team Providers Care Turner Machine Operator Name Role Phone Roshan Jimenez DO Primary Care Provider Unav ailable Encounter Details Date Type Department Care Team (Latest Contact Info) Description 03/26/2003 Outpatient Historical [facility] End[facility] [place] [address] [facility] [address] [place] [address] Demetri Chávez MD [address] [facility] [address] [place] [address] SCREENING MAL NEOP-COLON (Primary Dx) Social History Tobacco Use Types Packs/Day Years Used Date Smoking Tobacco: Never Assessed Sex and Gender Information Value Date Recorded Sex Assigned at Not on file 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
--- OUTSIDE RECORDS SUMMARY | 2025-06-08 00:22 | XMS_ITS | Encounter Summary ---
Author Organization [facility] Address [address] [place] [address] Care Team Providers Care Concrete Fence Builder Name Role Phone Roshan Jimenez DO Primary Care Provider Unav ailable Encounter Details Date Type Department Care Team (Latest Contact Info) Description 12/23/[address] 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
--- OUTSIDE RECORDS SUMMARY | 2025-06-08 00:22 | XMS_ITS | Encounter Summary ---
Author Organization [facility] Address [address] [place] [address] Care Team Providers Care Wood Heel Flap Trimmer Name Role Phone Roshan Jimenez DO Primary Care Provider Unav ailable Encounter Details Date Type Department Care Team (Latest Contact Info) Description 11/25/2003 Outpatient Historical [facility] Podiatry-[place] [address] [place] [address] Noé Rosa, DPM [address] [place] [address] Onychia of toe (Primary Dx); INGROWING NAIL Social History Tobacco Use Types Packs/Day Years Used Date Smoking Tobacco: Never Assessed Sex and Gender Information Value Date Recorded Sex Assigned at Not on file 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
--- OUTSIDE RECORDS SUMMARY | 2025-06-08 00:22 | XMS_ITS | Encounter Summary ---
Author Organization [facility] Address [address] [place] [address] Care Team Providers Care Welder Gas Name Role Phone Roshan Jimenez DO Primary Care Provider Unav ailable Encounter Details Date Type Department Care Team (Latest Contact Info) Description 11/27/2002 Outpatient Historical [facility] Podiatry-[place] [address] [place] [address] Noé Rosa, DPM [address] [place] [address] Onychia of toe (Primary Dx); INGROWING NAIL Social History Tobacco Use Types Packs/Day Years Used Date Smoking Tobacco: Never Assessed Sex and Gender Information Value Date Recorded Sex Assigned at Not on file 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
--- OUTSIDE RECORDS SUMMARY | 2025-06-08 00:22 | XMS_ITS | Encounter Summary ---
Author Organization [facility] Address [address] [place] [address] Care Team Providers Care Expenditure Requisition Clerk Name Role Phone Roshan Jimenez DO Primary Care Provider Unav ailable Encounter Details Date Type Department Care Team (Latest Contact Info) Description 04/13/1998 Outpatient [facility] [address] [place] [address] Roshan Jimenez DO NO ADDRESS ON FILE Obstructive chronic bronchitis with exacerbation (CMS/HCC) (Primary Dx); Malaise and fatigue; Tobacco use disorder; Unspecified essential hypertension; Acute bronchitis Social History Tobacco Use Types Packs/Day Years Used Date Smoking Tobacco: Never Assessed Sex and Gender Information Value Date Recorded Sex Assigned at Not on file 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 Sex Male 4:59 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
--- OUTSIDE RECORDS SUMMARY | 2025-06-08 00:22 | XMS_ITS | Encounter Summary ---
Author Organization [facility] Address [address] [place] [address] Care Team Providers Care Table Top Tile Setter Name Role Phone Roshan Jimenez DO Primary Care Provider Unav ailable Encounter Details Date Type Department Care Team (Latest Contact Info) Description 08/05/2003 Outpatient [facility] [address] [place] [address] Roshan Jimenez DO NO ADDRESS ON FILE HYPERTENSION NOS (Primary Dx); CHRONIC AIRWAY OBSTRUCTION NEC (CMS/HCC); UNSPECIFIED VIRAL INFECTION Social History Tobacco Use Types Packs/Day Years Used Date Smoking Tobacco: Never Assessed Sex and Gender Information Value Date Recorded Sex Assigned at Not on file 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
--- OUTSIDE RECORDS SUMMARY | 2025-06-08 00:22 | XMS_ITS | Encounter Summary ---
Author Organization [facility] Address [address] [place] [address] Care Team Providers Care Clinical Research Analyst Name Role Phone Roshan Jimenez DO Primary Care Provider Unav ailable Encounter Details Date Type Department Care Team (Latest Contact Info) Description 06/23/1999 Outpatient [facility] [address] [place] [address] Roshan Jimenez DO NO ADDRESS ON FILE Unspecified essential hypertension (Primary Dx); Reflux esophagitis; Obesity, unspecified; Chronic airway obstruction, not elsewhere classified (CMS/HCC) Social History Tobacco Use Types Packs/Day Years Used Date Smoking Tobacco: Never Assessed Sex and Gender Information Value Date Recorded Sex Assigned at Not on file 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
--- OUTSIDE RECORDS SUMMARY | 2025-06-08 00:22 | XMS_ITS | Encounter Summary ---
Author Organization [facility] Address [address] [place] [address] Care Team Providers Care Knifer Up Name Role Phone Roshan Jimenez DO Primary Care Provider Unav ailable Encounter Details Date Type Department Care Team (Latest Contact Info) Description 06/19/1998 Outpatient [facility] [address] [place] [address] Roshan Jimenez DO NO ADDRESS ON FILE Obstructive chronic bronchitis without exacerbation (CMS/HCC) (Primary Dx); Tobacco use disorder; Obesity, unspecified; Unspecified essential hypertension Social History Tobacco Use Types Packs/Day Years Used Date Smoking Tobacco: Never Assessed Sex and Gender Information Value Date Recorded Sex Assigned at Not on file 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
--- OUTSIDE RECORDS SUMMARY | 2025-06-08 00:22 | XMS_ITS | Encounter Summary ---
Author Organization [facility] Address [address] [place] [address] Care Team Providers Care Brand Lead Name Role Phone Roshan Jimenez DO Primary Care Provider Unav ailable Encounter Details Date Type Department Care Team (Latest Contact Info) Description 08/09/2004 Outpatient [facility] [address] [place] [address] Roshan Jimenez DO NO ADDRESS ON FILE CHRONIC AIRWAY OBSTRUCTION NEC ([facility]) (Primary Dx); REFLUX ESOPHAGITIS; HYPERTENSION NOS Social History Tobacco Use Types Packs/Day Years Used Date Smoking Tobacco: Never Assessed Sex and Gender Information Value Date Recorded Sex Assigned at Not on file 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
--- OUTSIDE RECORDS SUMMARY | 2025-06-08 00:22 | XMS_ITS | Encounter Summary ---
Author Organization [facility] Address [address] [place] [address] Care Team Providers Care Silk Screen Frame Assembler Name Role Phone Roshan Jimenez DO Primary Care Provider Unav ailable Encounter Details Date Type Department Care Team (Latest Contact Info) Description 11/11/2003 Outpatient [facility] Podiatry-[place] [address] [place] [address] Noé Rosa, DPM [address] [place] [address] Onychia of toe (Primary Dx); INGROWING NAIL Social History Tobacco Use Types Packs/Day Years Used Date Smoking Tobacco: Never Assessed Sex and Gender Information Value Date Recorded Sex Assigned at Not on file 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
--- OUTSIDE RECORDS SUMMARY | 2025-06-08 00:22 | XMS_ITS | Encounter Summary ---
Author Organization [facility] Address [address] [place] [address] Care Team Providers Care Bronze Plater Name Role Phone Roshan Jimenez DO Primary Care Provider Unav ailable Encounter Details Date Type Department Care Team (Latest Contact Info) Description 01/06/1999 Outpatient Historical 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
--- OUTSIDE RECORDS SUMMARY | 2025-06-08 00:22 | XMS_ITS | Encounter Summary ---
Author Organization [facility] Address [address] [place] [address] Care Team Providers Care Technical Support Specialist Name Role Phone Roshan Jimenez DO Primary Care Provider Unav ailable Encounter Details Date Type Department Care Team (Latest Contact Info) Description 12/23/1998 Outpatient Historical [facility] [place] [address] [place] [address] Noé Rosa, DPM [address] [place] [address] Ingrowing nail (Primary Dx); Dermatophytosis of nail Social History Tobacco Use Types Packs/Day Years Used Date Smoking Tobacco: Never Assessed Sex and Gender Information Value Date Recorded Sex Assigned at Not on file 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
--- OUTSIDE RECORDS SUMMARY | 2025-06-08 00:22 | XMS_ITS | Encounter Summary ---
Author Organization [facility] Address [address] [place] [address] Care Team Providers Care Tool And Die Maker/Designer Name Role Phone Roshan Jimenez DO Primary Care Provider Unav ailable Encounter Details Date Type Department Care Team (Latest Contact Info) Description 12/11/2002 Outpatient [facility] Podiatry-[facility] [place] [address] [place] [address] Noé Rosa, DPM [address] [place] [address] Onychia of toe (Primary Dx) Social History Tobacco Use Types Packs/Day Years Used Date Smoking Tobacco: Never Assessed Sex and Gender Information Value Date Recorded Sex Assigned at Not on file 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
--- OUTSIDE RECORDS SUMMARY | 2025-06-08 00:22 | XMS_ITS | Encounter Summary ---
Author Organization [facility] Address [address] [place] [address] Care Team Providers Care Stitcher Standard Machine Name Role Phone Roshan Jimenez DO Primary Care Provider Unav ailable Encounter Details Date Type Department Care Team (Latest Contact Info) Description 01/08/1999 Outpatient Historical [facility] Podiatry-[facility] [place] [address] [place] [address] Néo Rosa, DPM [address] [place] [address] Ingrowing nail (Primary Dx) Social History Tobacco Use Types Packs/Day Years Used Date Smoking Tobacco: Never Assessed Sex and Gender Information Value Date Recorded Sex Assigned at Not on file 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
--- OUTSIDE RECORDS SUMMARY | 2025-06-08 00:22 | XMS_ITS | Encounter Summary ---
Author Organization [facility] Address [address] [place] [address] Care Team Providers Care Logistics Project Manager Name Role Phone Roshan Jimenez DO Primary Care Provider Unav ailable Encounter Details Date Type Department Care Team (Latest Contact Info) Description 04/20/1998 Outpatient [facility] [address] [place] [id number] Roshan Jimenez DO NO ADDRESS ON FILE Acute bronchitis (Primary Dx); Obstructive chronic bronchitis with exacerbation (CMS/HCC); Tobacco use disorder; Edema Social History Tobacco Use Types Packs/Day Years Used Date Smoking Tobacco: Never Assessed Sex and Gender Information Value Date Recorded Sex Assigned at Not on file 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
--- OUTSIDE RECORDS SUMMARY | 2025-06-08 00:22 | XMS_ITS | Encounter Summary ---
Author Organization [facility] Address [address] [place] [address] Care Team Providers Care Grain Scooper Name Role Phone Roshan Jimenez DO Primary Care Provider Unav ailable Encounter Details Date Type Department Care Team (Latest Contact Info) Description 12/23/1998 Outpatient Historical [facility] [address] [place] [address] Roshan Jimenez DO NO ADDRESS ON FILE Chronic airway obstruction, not elsewhere classified (CMS/HCC) (Primary Dx); Unspecified essential hypertension; Osteoarthrosis, unspecified whether generalized or localized, unspecified site Social History Tobacco Use Types Packs/Day Years Used Date Smoking Tobacco: Never Assessed Sex and Gender Information Value Date Recorded Sex Assigned at Not on file 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 Gender Identity Not on file Sexual Orientation Not on file documented as of this encounter Plan of Treatment Not on file documented as of this encounter Visit Diagnoses Diagnosis Chronic airway obstruction, not elsewhere classified (CMS/HCC)- Primary Chronic airway obstruction, not elsewhere classified Unspecified essential hypertension Osteoarthrosis, unspecified whether generalized or localized, unspecified site documented in this encounter Care Teams Grain Scooper Relationship Specialty Start Date End Date Roshan Jimenez DO NO ADDRESS ON FILE PCP - General 03/26/03 documented as of this encounter
--- OUTSIDE RECORDS SUMMARY | 2025-06-08 00:22 | XMS_ITS | Encounter Summary ---
Author Organization [employer] [facility] Address [address] [place] [address] Care Team Providers Care Bookie Name Role Phone Roshan Jimenez DO Primary Care Provider Unav ailable Encounter Details Date Type Department Care Team (Latest Contact Info) Description 06/24/1998 Outpatient Historical [facility] Axel Armstrong NO ADDRESS ON FILE Localized osteoarthrosis not specified whether primary or secondary, lower leg (Primary Dx) Social History Tobacco Use Types Packs/Day Years Used Date Smoking Tobacco: Never Assessed Sex and Gender Information Value Date Recorded Sex Assigned at Not on file Legal Sex Male 4:59 AM LIFE SKILLS COORDINATOR Gender Identity Not on file Sexual Orientation Not on file documented as of this encounter Plan of Treatment Not on file documented as of this encounter Visit Diagnoses Diagnosis Localized osteoarthrosis not specified whether primary or secondary, lower leg- Primary documented in this encounter Care Teams Bookie Relationship Specialty Start Date End Date Roshan Jimenez DO NO ADDRESS ON FILE PCP - General 03/26/03 documented as of this encounter
--- OUTSIDE RECORDS SUMMARY | 2025-06-08 00:23 | XMS_ITS | Encounter Summary ---
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
--- OUTSIDE RECORDS SUMMARY | 2025-06-08 00:23 | XMS_ITS | Encounter Summary ---
Author Organization [facility] Address [address] [place] [address] Care Team Providers Care Railroad Brake Operator Name Role Phone Roshan Jimenez DO Primary Care Provider Unav ailable Encounter Details Date Type Department Care Team (Latest Contact Info) Description 02/20/2007 Outpatient [facility] [address] [place] [address] Roshan Jimenez DO NO ADDRESS ON FILE Chronic Airway Obstruction, not Elsewhere Classified (CMS/HCC) (Primary Dx); Unspecified Asthma; Obesity, Unspecified; Tobacco Use Disorder Social History Tobacco Use Types Packs/Day Years Used Date Smoking Tobacco: Never Assessed Sex and Gender Information Value Date Recorded Sex Assigned at Not on file 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
--- OUTSIDE RECORDS SUMMARY | 2025-06-08 00:23 | XMS_ITS | Encounter Summary ---
Author Organization [facility] Address [address] [place] [address] Care Team Providers Care Senior Front End Web Developer Name Role Phone Roshan Jimenez DO Primary Care Provider Unav ailable Encounter Details Date Type Department Care Team (Latest Contact Info) Description 07/17/2006 Outpatient [facility] [address] [place] [address] Roshan Jimenez DO NO ADDRESS ON FILE Unspecified Essential Hypertension (Primary Dx); Unspecified Asthma; Depressive Disorder, not Elsewhere Classified Social History Tobacco Use Types Packs/Day Years Used Date Smoking Tobacco: Never Assessed Sex and Gender Information Value Date Recorded Sex Assigned at Not on file Legal Sex Male 4:59 AM ASSISTANT PROGRAM DIRECTOR Gender Identity Not on file Sexual Orientation Not on file documented as of this encounter Plan of Treatment Not on file documented as of this encounter Visit Diagnoses Diagnosis Unspecified essential hypertension- Primary Unspecified asthma(493.90) Unspecified asthma Depressive disorder, not elsewhere classified documented in this encounter Care Teams Senior Front End Web Developer Relationship Specialty Start Date End Date Roshan Jimenez DO NO ADDRESS ON FILE PCP - General 03/26/03 documented as of this encounter
--- OUTSIDE RECORDS SUMMARY | 2025-06-08 00:23 | XMS_ITS | Clinical Summary ---
Author Organization [facility] Stevo melo Charles Address [address] [place] [address] Phone Care Team Providers Care Palliative Care Nurse Name Role Phone Unavailable Primary Care Provider Unavailabl e Allergies Active Allergy Reactions Criticality Noted Date Comments Broccoli Nausea and Vomiting Low 02/14/2025 Per [facility] paperwork Medications fluticasone-umec lidinium-vilante rol (Trelegy Ellipta) [...] Encounters Date Type Department Care Team Description 06/01/2025 12:20 AM CDT - 06/01/2025 11:59 PM CDT Hospital Encounter [facility] Emergency Medical Services [facility] [address] [place], [place] [address]way [address] [place] [address] Ambulance, [facility] Discharge Disposition: [facility] 05/18/2025 - 05/18/2025 11:59 PM CDT Hospital Encounter [facility] Emergency Medical Services [facility] [address] [place] [address] 5 [place] [address] [facility]: [facility] 05/13/2025 9:30 AM CDT - 05/13/2025 11:59 PM CDT Hospital Encounter [facility] Medical Services [address] [address] Ambulance, [facility] Discharge Disposition: [facility] 05/01/2025 Orders Only [facility] Gastroenterology - [place] [address] [place] [phone] Tiago Ryan MD Irritable bowel syndrome with diarrhea (Primary Dx); Chronic diarrhea 04/05/2025 2:15 PM CDT - 04/05/2025 11:59 PM CDT Hospital Encounter [address] [address] Ambulance, [facility] Discharge Disposition: [facility] 04/01/2025 10:00 AM CDT Office Visit [facility] [address] [place] [phone] Dane Sierra MD Farmer, Sarah, FNP History of ST elevation myocardial infarction (STEMI) (Primary Dx); Benign hypertension; Paroxysmal atrial fibrillation with rapid ventricular response (CMS/HCC); Mixed hyperlipidemia; Ischemic dilated cardiomyopathy (CMS/HCC); Other iron deficiency anemia 03/27/2025 12:25 AM CDT - 03/27/2025 11:59 PM CDT Hospital Encounter [facility] Emergency Medical Services [address] [place] [address] Ambulance, [facility] Jean-Pierre Pappas MD Discharge Disposition: Intermediate Care Facility 03/26/2025 9:54 AM CDT Anesthesia Event [facility] Endoscopy [address] [place] [address] Grzegorz Arteaga MD Bell, Leslie, CRNA 03/26/2025 9:20 AM CDT - 03/26/2025 9:40 AM CDT Surgery [facility] Endoscopy [address] [place] [address] Tiago Ryan MD ESOPHAGOGASTRODUODENOSCOPY 03/25/2025 External Device Data STL ABSTRACTION Provider, Abstract 03/25/2025 External Device Data STL ABSTRACTION Provider, Abstract 03/25/2025 External Device Data [facility] ABSTRACTION Provider, Abstract 03/22/2025 3:21 AM CDT - 03/27/2025 7:10 PM CDT Hospital Encounter [facility] 4A Cardiac [address] [place] [address] Bandar Parsons MD Sundaram, MD Jose Sandoval III, DO John Sorto Saroj, MD Haq, MD Elyse Hinkle Ravi V., MD Acute on chronic combined systolic and diastolic heart failure Discharge Disposition: Medicaid Nursing Facility 03/21/2025 - 03/21/2025 11:59 PM CDT Hospital Encounter [facility] Emergency Medical Services [facility] [address] [place] [address] 5 [place] [address] Ambulance, [facility] Discharge Disposition: [facility] hospital 03/21/2025 Travel 03/18/2025 External Device Data STL [...] on file Legal Sex Male 12:11 AM LEARNING SUPPORT SERVICES DIRECTOR Gender Identity Not on file Sexual [...] st Contact Info) Description 07/09/2025 10:20 AM LEARNING SUPPORT SERVICES DIRECTOR Office Visit [facility] [address] [place] [address] Saritha Horton, [facility] [address] [place] [address] 10/24/2025 10:45 AM LEARNING SUPPORT SERVICES DIRECTOR Office Visit [facility] [address] [place] [address] Dane Sierra MD [address] [place] [address] Health Maintenance Due Date Last [...] history exists Medical Devices Implanted Type Area Office Mover Device Identifier Shelf Expiration Date Model / Serial / Lot Stent Jayy Carolina Santiago 4.0x38mm Rx [id number] - [id number] Implanted:Qty: 1 on 02/14/2025 by Geronimo, Site Foreman () MD Wing at [facility] Stent N/A: Coronary [employer] [id number] 02/19/2027 [id number] / / [id number] Procedures Procedure Name Priority Date/Time Associated [...] ANTIGEN, URINE Routine 2024 2:47 PM CDT CANAL SUPERINTENDENT EVALUATE AND TREAT Routine 11:23 AM CDT [...] 10:18 PM CDT BRAIN NATRIURETIC PEPTIDE, B CONCESSION STAND ATTENDANT OR PROBNP Stat 03/21/2025 10:18 PM CDT COMPREHENSIVE METABOLIC PANEL Stat 10:18 PM CDT CBC WITH DIFFERENTIAL Stat 03/21/2025 10:18 PM CDT EKG 12-LEAD Stat 03/21/2025 10:11 PM CDT ENDOSCOPY, COLON, SCREENING Routine 06/28 12:39 PM LEARNING SUPPORT SERVICES DIRECTOR from Last 3 Months or Most Recently Relevant to Health Maintenance Results * TELEMETRY REPORT (03/28/2025 9:55 AM CDT) us Provider Scanning ECG ORDERABLES Final Result * (ABNORMAL) BASIC METABOLIC PANEL (03/27/2025 4:40 AM CDT) Only the most recent of5 resultswithin the time period is included. SODIUM 140 136 - 145 mmol/L 03/27/2025 5:46 AM CDT [facility] POTASSIUM 4.2 3.5 - 5.1 mmol/L 03/27/2025 5:46 AM T [facility] Comment:Moderate hemolysis p resent. Can cause significant falsely elevated result. Redraw if indicated. CHLORIDE 101 98 - 107 mmol/L 03/27/2025 5:46 AM CDT [facility] CO2 32(H) 22 - 29 mmol/L 03/27/2025 5:46 AM CDT [facility] CALCIUM 8.1(L) 8.8 - 10.2 mg/dL 03/27/2025 5:46 AM CDT [facility] BUN 10 8 - 23 mg/dL 03/27/2025 5:46 AM CDT [facility] CREATININE 0.67 0.67 - 1.17 mg/dL 03/27/2025 5:46 AM T [facility] Comment:The GFR result is no t clinically significant on patients <18 or >70 years of age. GLUCOSE 92 74 - 99 mg/dL 03/27/2025 5:46 AM T [facility] GFR >60 mL/min/1.7 3 sq meter 03/27/2025 5:46 AM T [facility] Comment:eGFR calculated with 2021 CKD-EPI equation. Vegetarian diet, extremely high or low muscle mass, and may affect results. Cystatin C with Glomerular Filtration Rate is a suitable alternative for these patients. ANION GAP 7(L) 9 - 20 mmol/L 03/27/2025 5:46 AM CDT [facility] Blood Venipuncture / Unknown 03/27/2025 4:40 AM CDT 03/27/2025 5:07 AM CDT us Adilene Trinh CONCESSION STAND ATTENDANT CHEMISTRY ORDERABLES Final Re sult Performing Organization Address [facility] de Phone Number [facility] CLIA # [id number] [facility] [place] [address] * VANCOMYCIN LEVEL TROUGH (03/26/2025 12:44 PM CDT) VANCOMYCIN, TROUGH 10.6 10.0 - 17.0 ug/mL 03/26/2025 1:24 PM CDT [facility] Blood Venipuncture / Unknown 03/26/2025 12:44 PM CDT 03/26/2025 12:52 PM CDT us Arin Koroma MD CHEMISTRY ORDERABLES Final Resul t Performing Organization Address [facility] de Phone Number [facility] CLIA # [id number] [address] [place] [address] * UPPER ENDOSCOPY REPORT (03/26/2025 10:15 AM CDT) Narrative Procedure Note Tiago Ryan MD - 03/26/2025 10:15 AM CDT [facility] GI Patient Name: Isreal Arguello Procedure Date: [...] Withdrawal Time Scope In: Scope Out: [address] [place], [place] Tiago Ryan MD GI PROCEDURE ORDERABLES F inal Result * PATHOLOGY (03/26/2025 10:04 AM CDT) CASE REPORT Surgical Pathology Report Case: [id number] Authorizing Provider: Tiago Ryan MD Collected: 03/26/2025 10:04 AM Ordering Location: [facility] Received: 03/26/2025 01:42 PM Endoscopy Pathologist: Marialuisa Lazcano MD Specimens: A) - Stomach B) - Small Intestine, duodenum 9:52 AM CDT [facility] FINAL DIAGNOSIS A. Stomach, biopsy - Mild chronic gastritis - An immunohistochemical stain for H. pylori was performed on block A1 and is negative / B. Small intestine, duodenum, biopsy - Small intestinal mucosa with increased intraepithelial lymphocytes and preserved villous architecture, see comment Marialuisa Lazcano MD [id number] 9:52 AM CDT [facility] at 0952 CDT DIAGNOSIS COMMENT A. No [...] serologic correlation is recommended. 9:52 AM CDT [facility] GROSS DESCRIPTION A. Received in a container of formalin labeled Alannah -stomach rule out H. pylori are multiple fragments of mucosa, 0.8 x 0.6 x 0.2 cm. The specimen is submitted entirely in A1. B. Received in a container of formalin labeled Parks -duodenum rule out celiac are multiple fragments of mucosa, 0.8 x 0.6 x 0.1 cm. The specimen is submitted entirely in B1. Grossed by: Angeline Andrade MS, PA ([facility])CM 9:52 AM CDT [facility] OPERATIVE PROCEDURE 1: ESOPHAGOGASTRODUODENOSCO PY 9:52 AM CDT [facility] CLINICAL INFORMATION R/o H Pylori 9:52 AM CDT [facility] COMMENT The Aptara voice-activated dictation system may have been used [...] determined by the Diagnostic Immunohistochemistry Laboratory of [facility] in compliance with CLIA'88 regulations. Some of these tests rely on the use of analyte specific reagents and are subject to specific labeling requirements by the FDA. All controls show appropriate reactivity. This testing was developed by the Diagnostic Immunohistochemistry Laboratory of [facility]. It has not been cleared or approved by the FDA. The FDA has determined that such clearance or approval is not necessary. 9:52 AM CDT [facility] Tissue ENTIRE STOMACH / Unknown Collection / Unknown 03/26/2025 10:04 AM CDT 03/26/2025 1:42 PM CDT Comment:R/o H Pylori Tissue specimen (specimen) (Small Intestine) Collection / Unknown 03/26/2025 10:04 AM CDT 03/26/2025 1:42 PM CDT Comment:R/O Celiac Sprue Tiago Ryan MD PATHOLOGY/CYTOLOGY ORDERA BLES Final Result [facility] CLIA # [id number] [address] [place] [phone] * (ABNORMAL) HEMOGLOBIN AND HEMATOCRIT (03/26/2025 8:46 AM CDT) Only the most recent of3 resultswithin the time period is included. HEMOGLOBIN 7.4(L) 14.0 - 18.0 g/dL 03/26/2025 9:05 AM CDT [facility] HEMATOCRIT 26.3(L) 41.0 - 53.0 % 03/26/2025 9:05 AM CDT [facility] Blood Venipuncture / Unknown 03/26/2025 8:46 AM CDT 03/26/2025 8:57 AM CDT us Arin Koroma MD HEMATOLOGY ORDERABLES Final Resu lt [facility] CLIA # [id number] [address] [address] [place] [address] * (ABNORMAL) CBC WITH DIFFERENTIAL (03/26/2025 2:06 AM CDT) Only the most recent of5 resultswithin the time period is included. WBC 11.4(H) 4.8 - 10.8 K/uL 03/26/2025 2:18 AM CDT [facility] RBC 2.95(L) 4.60 - 6.20 M/uL 03/26/2025 2:18 AM T [facility] HEMOGLOBIN 7.3(L) 14.0 - 18.0 g/dL 03/26/2025 2:18 AM T [facility] HEMATOCRIT 25.6(L) 41.0 - 53.0 % 03/26/2025 2:18 AM T [facility] MCV 86.8 84.0 - 103.0 fL 03/26/2025 2:18 AM CDT [facility] MCH 24.7(L) 27.0 - 34.0 pg 03/26/2025 2:18 AM T [facility] MCHC 28.5(L) 30.0 - 35.0 g/dL 03/26/2025 2:18 AM CDT [facility] PLATELETS 399 140 - 440 K/uL 03/26/2025 2:18 AM T [facility] MPV 9.2 8.9 - 12.8 fL 03/26/2025 2:18 AM [facility] RDW 18.6(H) 11.0 - 14.5 % 03/26/2025 2:18 AM [facility] RDW-STDEV 58.7(H) 37.0 - 54.0 fL 03/26/2025 2:18 AM [facility] NEUTROPHILS 79(H) 42 - 75 % 03/26/2025 2:18 AM [facility] LYMPHOCYTES 11(L) 24 - 44 % 03/26/2025 2:18 AM [facility] MONOCYTES 7 2 - 10 % 03/26/2025 2:18 AM [facility] EOSINOPHILS 2 0 - 7 % 03/26/2025 2:18 AM [facility] BASOPHILS 1 0 - 1 % 03/26/2025 2:18 AM [facility] IMMATURE GRANULOCYTES 1 0 - 2 % 03/26/2025 2:18 AM [facility] NEUTROPHIL ABSOLUTE 8.93(H) 2.00 - 8.00 K/uL 03/26/2025 2:18 AM [facility] LYMPHOCYTE ABSOLUTE 1.19(L) 1.20 - 4.00 K/uL 03/26/2025 2:18 AM [facility] MONOCYTE ABSOLUTE 0.84(H) 0.10 - 0.60 K/uL 03/26/2025 2:18 AM [facility] EOSINOPHIL ABSOLUTE 0.21 0.00 - 0.70 K/uL 03/26/2025 2:18 AM [facility] BASOPHILS ABSOLUTE 0.06 0.00 - 0.20 K/uL 03/26/2025 2:18 AM [facility] IMMATURE GRANULOCYTES ABSOLUTE 0.15(H) 0.00 - 0.10 K/uL 03/26/2025 2:18 AM [facility] SMEAR REVIEWED: NA - Not Applicable 03/26/2025 2:18 AM [facility] Blood Venipuncture / Unknown 03/26/2025 2:06 AM CDT 03/26/2025 2:09 AM CDT us Adilene Trinh NP HEMATOLOGY ORDERABLES Final R esult Performing Organization Address City/[facility]/ZIP Co de Phone Number [facility] CLIA # [id number] [address] [place], [place] [phone] * LEGIONELLA ANTIGEN, URINE (03/25/2025 2:47 PM CDT) Pathologist [facility] Emergency Department LEGIONELLA AG, URINE NOT DETECTED Not Detected 03/25/2025 3:56 PM CDT [facility] Urine URINE SPECIMEN OBTAINED BY CLEAN CATCH PROCEDURE / Unknown Collection / Unknown 03/25/2025 2:47 PM CDT 03/25/2025 2:52 PM CDT Narrative [facility] - 03/25/2025 3:56 PM CDT This test [...] when antigen is not detected in urine. us Arin Koroma MD MICROBIOLOGY - GENERAL ORDERABLE S Final Result Performing Organization Address [facility]/ZIP Co de Phone Number [id number] [address] [place] [address] * STREPTOCOCCUS PNEUMONIAE ANTIGEN (03/25/2025 2:47 PM CDT) [facility] STREPTOCOCCUS PNEUMONIAE AG NOT DETECTED Not Detected 03/25/2025 3:55 PM CDT [facility] Urine URINE SPECIMEN OBTAINED BY CLEAN CATCH PROCEDURE / Unknown Collection / Unknown 03/25/2025 2:47 PM CDT 03/25/2025 2:52 PM CDT us Arin Koroma MD MICROBIOLOGY - GENERAL ORDERABLE S Final Result Performing Organization Address City/[facility]/ZIP Co de Phone Number [facility] CLIA # [id number] [id number] [place] [address] * PERIPHERAL BLOOD SMEAR PATHOLOGY INTERP (03/25/2025 5:01 AM CDT) PERIPHERAL BLOOD SMEAR INTERP See Interpretation Below 03/26/2025 11:26 AM CDT [facility] INTERPRETED BY: Axel Keating MD 03/26/2025 11:26 AM CDT [facility] Blood Venipuncture / Unknown 03/25/2025 5:01 AM CDT 03/25/2025 5:18 AM CDT Narrative [facility] - 03/26/2025 11:26 AM CDT CLINICAL INFORMATION: [...] laboratory data is recommended. Reviewed by Chetan Kaeting MD us Arin Koroma MD HEMATOLOGY ORDERABLES Final Resu lt Performing Organization Address City/[facility]/ZIP Co de Phone Number [facility] CLIA # [id number] [address] [address] * POC GLUCOSE (03/24/2025 1:01 PM CDT) Only the most recent of7 resultswithin the time period is included. Pathologist [facility] Emergency Department GLUCOSE POC 90 74 - 99 mg/dL 03/24/2025 1:01 PM CDT [facility] SPECIMEN SOURCE, GLUCOSE POC Capillary 03/24/2025 1:01 PM CDT [facility] Blood, whole 03/24/2025 1:01 PM CDT 03/24/2025 1:10 PM CDT Cal Garcia III, DO POINT OF CARE TESTING Fin al Result Performing Organization Address City/[facility]/ZIP Co de Phone Number [facility] CLIA # [id number] [address] [place], [place] [address] * TRANSFUSE EMERGENCY RELEASE/DOWNTIME RED BLOOD CELLS (03/24/2025 12:50 PM CDT) Cal Garcia III, DO BLOOD TRANSFUSION ORDERAB LES Final Result * (ABNORMAL) MRSA PCR RAPID SCREEN (03/24/2025 9:28 AM CDT) [facility] MRSA PCR RESULT MRSA detected( A) MRSA not detected 03/24/2025 10:44 AM CDT [facility] Surveillance ANTERIOR NARES SWAB / Unknown Collection / Unknown 03/24/2025 9:28 AM CDT 03/24/2025 9:31 AM CDT Narrative [facility] - 03/24/2025 10:44 AM CDT Positive MRSA called to Susy Berkowitz RN by Jose L Vega on 03/24/2025 at 10:43 AM with verbal readback. Adilene Trinh NP MICROBIOLOGY - GENERAL ORDERA BLES Final Result Performing Organization Address City/[facility]/ZIP Co de Phone Number [facility] CLIA # [id number] [address] [place] [address] * MAGNESIUM LEVEL (03/24/2025 4:41 AM CDT) MAGNESIUM 2.4 1.6 - 2.4 mg/dL 03/24/2025 5:43 AM CDT [facility] Blood Venipuncture / Unknown 03/24/2025 4:41 AM CDT 03/24/2025 5:00 AM CDT Azul Wilkerson CONCESSION STAND ATTENDANT CHEMISTRY ORDERABLES Final Re sult Performing Organization Address [facility] de Phone Number [facility] CLIA # [id number] [address] [id number] * CORTISOL LEVEL (03/24/2025 4:41 AM CDT) Pathologist [facility] Emergency Department CORTISOL LEVEL 13.5 ug/dL 03/24/2025 5:43 AM CDT [facility] Comment: Cortisol Reference Range Morning Hours 6-10 a.m. 6.0-18.4 ug/dL Afternoon Hours 4-8 p.m. 2.7-10.5 ug/dL Blood Venipuncture / Unknown 03/24/2025 4:41 AM CDT 03/24/2025 5:00 AM CDT Azul Wilkerson CONCESSION STAND ATTENDANT CHEMISTRY ORDERABLES Final Re sult Performing Organization Address [facility] Co de Phone Number [facility] CLIA # [id number] [address] [id number] * VANCOMYCIN LEVEL RANDOM (03/24/2025 4:41 AM CDT) VANCOMYCIN, RANDOM 10.2 5.0 - 50.0 ug/mL 03/24/2025 5:43 AM CDT [facility] Blood Venipuncture / Unknown 03/24/2025 4:41 AM CDT 03/24/2025 5:00 AM CDT Narrative [facility] - 03/24/2025 5:43 AM CDT Vancomycin Therapeutic Ranges: Vancomycin Trough: 10 - 20 mcg/mL Vancomycin Peak: 25 - 50 mcg/mL us Jaime Ruggiero MD CHEMISTRY ORDERABLES Final R esult Performing Organization Address [facility] Co de Phone Number [facility] [id number] [address] [place] [address] * BLOOD CULTURE (03/23/2025 10:03 PM CDT) Only the most recent of2 resultswithin the time period is included. [facility] BLOOD CULTURE No growth 03/29/2025 3:34 AM CDT [facility] Blood (Peripheral) Venipuncture / Unknown 03/23/2025 10:03 PM CDT 03/23/2025 10:06 PM CDT [facility] - 03/29/2025 3:34 AM CDT Specimen processed with suboptimal blood volume collected. Tequila Nobles MD MICROBIOLOGY - GENERAL ORDERABLES Final Result Performing Organization Address [facility] Co de Phone Number [facility] CLIA # [id number] [address] [place] [address] * RESPIRATORY PATHOGEN PCR PANEL (03/23/2025 1:59 PM CDT) [facility] Respiratory Pathogen PCR Panel NOT DETECTED No respiratory pathogen nucleic acids detected. 03/23/2025 3:25 PM CDT [facility] COVID-19 PCR NOT DETECTED Not Detected 03/23/2025 3:25 PM CDT [facility] Upper Respiratory ENTIRE NASOPHARYNX / Unknown Collection / Unknown 03/23/2025 1:59 PM CDT 03/23/2025 2:09 PM CDT [facility]ORATORY [facility] - 03/23/2025 3:25 PM CDT The Film [...] MICROBIOLOGY - GENERAL ORDERA BLES Final Result [facility] CLIA # [id number] [address] [place] [phone] * ECHOCARDIOGRAM W/ CONTRAST AGENT (03/23/2025 10:23 AM CDT) EJECTION FRACTION 31 INTERFACE SYSTEM 03/23/2025 9:35 AM CDT [facility] - 03/23/2025 11:19 AM CDT [facility] Cardiovascular Services Echocardiography Laboratory [address] [place] [address] Transthoracic Echocardiography Patient: Isreal Arguello Study ID: ECHO COMPLETE - R Gender: M : 1950 Age: 74 Room: [facility] Study 03/23/2025 Pt Inpatient Date: Status: Study 09:35:52 AM [facility] #: [id number] Time: Ordering:Azul Wilkerson (student) Support Technician: Angeline Silva Indications and History: Chest pain. [...] (H) odalis values outside specified reference range. [facility] Echo Labs are accredited with the Intersocietal Accreditation Commission - Echocardiography. Prepared and Electronically Authenticated Jose Smith MD Confirmed 03/23/2025 11:19 Procedure Note Jose Smith MD - 03/23/2025 [facility] Cardiovascular Services Echocardiography Laboratory [address] [place] [id number] Transthoracic Echocardiography Patient: Isreal Arguello Study ID: ECHO COMPLETE- R Gender: M : 1950 Age: 74 Room: [facility] Study 03/23/2025 Pt Inpatient Date: Status: Study 09:35:52 AM CSN #: [id number] Time: Ordering:Azul Wilkerson (student) Support Technician: Angeline Silva Indications and History: Chest pain. [...] coapt 34.2cm MiV/LVOT VTI1.7 LVOT Value Decel ymmva936.66 cm/s^2 Diam, S 2.0 cm Decel time [...] (H) odalis values outside specified reference range. [facility] Echo Labs are accredited with theBenson Hospitalsocietal Accreditation Commission - Echocardiography. Prepared and Electronically Authenticated Jose Smith MD Confirmed 03/23/2025 11:19 us Azul Wilkerson NP US ORDERABLES Final Result Performing Organization Address [facility] de Phone Number INTERFACE SYSTEM Refer to clinic/hospital department * (ABNORMAL) AMMONIA LEVEL (03/23/2025 9:23 AM CDT) AMMONIA 15.5(L) 16.0 - 60.0 umol/L 03/23/2025 9:53 AM CDT [facility] Blood, venous Venipuncture / Unknown 03/23/2025 9:23 AM CDT 03/23/2025 9:27 AM CDT Azul Wilkerson NP CHEMISTRY ORDERABLES Final Re sult Performing Organization Address [facility] de Phone Number [facility] CLIA # [id number] [address] [facility] [place] [address] * XR CHEST PA OR AP 1 [...] 2.0 <=2.0 mmol/L 03/23/2025 7:08 AM CDT [facility] SPECIMEN SOURCE, GASES POC Arterial 03/23/2025 7:08 AM CDT [facility] PUN SITE POC ART PUNCT 03/23/2025 7:08 AM CDT [facility] Blood 03/23/2025 7:08 AM CDT 03/23/2025 7:11 AM CDT Narrative [facility] - 03/23/2025 7:08 AM CDT References ranges displayed are for Arterial samples. us Cal Garcia III, DO POINT OF CARE TESTING Fin al Result [facility] CLIA # [id number] [address] [place] [address] * (ABNORMAL) BLOOD GAS ARTERIAL (03/23/2025 7:08 AM CDT) Only the most recent of3 resultswithin the time period is included. PH BLOOD POC 7.43 7.35 - 7.45 03/23/2025 7:08 AM [facility] PCO2 POC 55(H) 35 - 45 mm Hg 03/23/2025 7:08 AM [facility] PO2 POC 128(H) 80 - 105 mm Hg 03/23/2025 7:08 AM [facility] HCO3 (CALC) POC 37(H) 22 - 26 mmol/L 03/23/2025 7:08 AM [facility] HEMOGLOBIN POC 7.6(L) 12.0 - 18.0 g/dL 03/23/2025 7:08 AM [facility] BASE EXCESS POC 12(H) -2 - 3 mmol/L 03/23/2025 7:08 AM [facility] O2 SATURATION POC 100(H) 95 - 98 % 03/23/2025 7:08 AM [facility] SODIUM POC 139 138 - 146 mmol/L 03/23/2025 7:08 AM [facility] POTASSIUM POC 4.1 3.5 - 4.9 mmol/L 03/23/2025 7:08 AM [facility] HEMATOCRIT POC 23(L) 38 - 51 % 03/23/2025 7:08 AM [facility] PH TEMP CORRECT 7.43 7.35 - 7.45 03/23/20 7:08 AM [facility] PCO2 TEMP CORRECT 55(H) 35 - 45 mm Hg 03/23/2025 7:08 AM T [facility] PO2 TEMP CORRECT 128(H) 80 - 105 mm Hg 03/23/2025 7:08 AM T [facility] SPECIMEN SOURCE, GASES POC Arterial 03/23/2025 7:08 AM T [facility] CALCIUM IONIZED POC 4.4(L) 4.8 - 5.2 mg/dL 03/23/2025 7:08 AM T [facility] TCO2 (CALC) POC 38(H) 23 - 27 mmol/L 03/23/2025 7:08 AM T [facility] PUNC SITE POC ART PUNCT 03/23/2025 7:08 AM [facility] VENT MODE POC BiPAP 03/23/2025 7:08 AM T [facility] PATIENT'S TEMPERATURE POC 37.0 degrees 03/23/2025 7:08 AM T [facility] Blood, arterial 03/23/2025 7 :08 AM CDT 03/23/2025 7:11 AM CDT us Cal Garcia III, DO ABG ORDERABLES Final Res ult [facility] CLIA # [id number] [address] [place] [address] * LACTIC ACID (03/23/2025 5:26 AM CDT) LACTIC ACID 2.0 <=2.0 mmol/L 03/23/2025 5:58 AM CDT [facility] Blood Venipuncture / Unknown 03/23/2025 5:26 AM CDT 03/23/2025 5:34 AM CDT Lenora Purdy [facility] CHEMISTRY ORDERABLES Fi nal Result [facility] [employer] [facility] CLIA # [id number] [address] [facility] [facility] [place] [address] * (ABNORMAL) PROCALCITONIN (03/23/2025 5:16 AM CDT) PROCALCITONIN 54.34(H) <=0.08 ng/mL 03/23/2025 6:31 AM CDT [facility] [employer] [facility] Blood Venipuncture / Unknown 03/23/2025 5:16 AM CDT 03/23/2025 5:41 AM CDT Narrative [facility] [employer] [facility] - 03/23/2025 6:31 AM CDT [...] and peaks within 6-24 hours. Lenora Purdy [facility] CHEMISTRY ORDERABLES Fi nal Result Performing Organization Address [facility] de Phone Number [facility] CLIA # [id number] [address] [address] * (ABNORMAL) BASIC METABOLIC PANEL PLUS (ADD ON CMP TO BMP) (03/23/2025 5:16 AM CDT) Pathologist [facility] TOTAL PROTEIN 7.9 6.4 - 8.3 g/dL 03/23/2025 7:51 AM CDT [facility] ALBUMIN 2.8(L) 3.5 - 5.2 g/dL 03/23/2025 7:51 AM CDT [facility] BILIRUBIN TOTAL 0.5 0.0 - 1.0 mg/dL 03/23/2025 7:51 AM CDT [facility] ALKALINE PHOSPHATASE 171(H) 40 - 129 U/L 03/23/2025 7:51 AM CDT [facility] AST 16 10 - 50 U/L 03/23/2025 7:51 AM CDT [facility] ALT 8 <=50 U/L 03/23/2025 7:51 AM T [facility] Blood Venipuncture / Unknown 03/23/2025 5:16 AM CDT 03/23/2025 5:41 AM CDT Azul Wilkerson NP CHEMISTRY ORDERABLES Final Re sult Performing Organization Address City/[facility]/ZIP Co de Phone Number [facility] CLIA # [id number] [address] [id number] * TYPE AND SCREEN (03/23/2025 5:16 AM CDT) Pathologist [facility] ABO GROUP O 03/23/2025 7:31 AM CDT [facility] RH (D) TYPE Positive 03/23/2025 7:31 AM CDT [facility] ANTIBODY SCREEN Negative 03/23/2025 7:31 AM CDT [facility] [employer] [facility] Blood Venipuncture / Unknown 03/23/2025 5:16 AM CDT 03/23/2025 5:34 AM CDT Lenora Purdy [facility] [employer] [facility] ORDERABLES E dited Result - Final Performing Organization Address City/[facility]/ZIP Co de Phone Number [facility] CLIA#[id number] [address] [place], [place] [address] [phone] * (ABNORMAL) C-REACTIVE PROTEIN (03/23/2025 5:16 AM CDT) CRP 60.9(H) 0.0 - 5.0 mg/L 03/23/2025 12:30 PM CDT [facility] Blood Venipuncture / Unknown 03/23/2025 5:16 AM CDT 03/23/2025 5:41 AM CDT Azul Wilkerson CONCESSION STAND ATTENDANT CHEMISTRY ORDERABLES Final Re sult Performing Organization Address [facility] Co de Phone Number [facility] CLIA # [id number] [address] [address] * (ABNORMAL) T4 FREE (03/23/2025 5:16 AM CDT) T4 FREE 0.72(L) 0.81 - 1.70 ng/dL 03/23/2025 2:20 PM CDT [facility] Blood Venipuncture / Unknown 03/23/2025 5:16 AM CDT 03/23/2025 5:41 AM CDT Azul Wilkerson CONCESSION STAND ATTENDANT CHEMISTRY ORDERABLES Final Re sult Performing Organization Address City/[facility]/ZIP Co de Phone Number [facility] [employer] [facility] CLIA # [id number] [address] [place] [address] * PREPARE RED BLOOD CELLS (03/23/2025 4:38 AM CDT) [facility] COMPONENT TYPE [id number] [facility] COMPONENT IDENTIFICATION [id number] [facility] UNIT ABO O [facility] UNIT RH NEG [facility] CROSSMATCH Compatible [facility] COMPONENT STATUS Transfused ME [facility] COMPONENT EXPIRATION DATE/TIME [id number] [facility] COMPONENT CODING SYSTEM 9500 [facility] VOLUME, BLOOD PRODUCT 350 [facility] Other, specify 03/23/2025 4: 38 AM CDT Lenora Purdy [facility] TRANSFUSION ORDERAB LES Edited Result - Final [facility] [employer] [facility] CLIA#[id number] [address] [place] [id number] [place] [address] * (ABNORMAL) MANUAL DIFFERENTIAL (03/23/2025 3:57 AM CDT) [facility] SEGMENTED NEUTROPHILS 98(H) 36 - 66 % 03/23/2025 4:50 AM CDT [facility] [employer] [facility] LYMPHOCYTES RELATIVE 0(L) 24 - 44 % 03/23/2025 4:50 AM CDT [facility] [employer] [facility] MONOCYTES RELATIVE 1(L) 4 - 10 % 03/23/2025 4:50 AM CDT [facility] METAMYELOCYTES RELATIVE 1 0 - 1 % 03/23/2025 4:50 AM CDT [facility] PLATELET EST. Slightly Increased 03/23/2025 4:50 AM CDT [facility] NEUTROPHILS ABSOLUTE COUNT 41.85(H) 2.00 - 8.00 K/uL 03/23/2025 4:50 AM CDT [facility] LYMPHOCYTES ABSOLUTE 0.00(L) 1.20 - 4.00 K/uL 03/23/2025 4:50 AM CDT [facility] ATYPICAL LYMPHS ABSOLUTE 03/23/2025 4:50 AM CDT [facility] MONOCYTES ABSOLUTE 0.43 0.10 - 0.60 K/uL 03/23/2025 4:50 AM CDT [facility] ANISOCYTOSIS 1+ /hpf 03/23/2025 4:50 AM CDT [facility] POLYCHROMASIA 1+ /hpf 03/23/2025 4:50 AM CDT [facility] VACUOLATED NEUTROPHILS Present /hpf 03/23/2025 4:50 AM CDT [facility] TOTAL CELLS COUNTED IN DIFF 100 03/23/2025 4:50 AM T [facility] Blood Venipuncture / Unknown 03/23/2025 3:57 AM CDT 03/23/2025 4:02 AM CDT us Lenora Purdy [employer] HEMATOLOGY ORDERABLES C OM Final Result Performing Organization Address [facility] Co de Phone Number [facility] CLIA # [id number] [address] [place] [address] * VITAMIN B12 AND FOLATE (03/23/2025 3:57 AM CDT) VITAMIN B12 616 211 - 946 pg/mL 03/23/2025 4:54 AM CDT [facility] FOLATE, SERUM 11.4 3.1 - 17.5 ng/mL 03/23/2025 4:54 AM CDT [facility] Blood Venipuncture / Unknown 03/23/2025 3:57 AM CDT 03/23/2025 4:03 AM CDT us Jaime Ruggiero MD CHEMISTRY ORDERABLES Final R esult [facility] # [id number] [address] [address] [place] [address] * CT ABDOMEN PELVIS W CONTRAST (03/22/2025 [...] Ruggiero MD URINE ORDERABLES Final Resul t [facility] CLIA # [id number] [facility] [address] [address] [place] [address] * (ABNORMAL) URINALYSIS WITH REFLEX MICROSCOPIC (03/22/2025 8:38 AM CDT) COLOR UA Pale Yellow Pale to Dark Yellow 03/22/2025 9:07 AM T [facility] CLARITY UA Turbid(A) Clear 03/22/2025 9:07 AM T [facility] SPECIFIC GRAVITY UA 1.013 1.003 - 1.035 03/22/2025 9:07 AM T [facility] PH UA 8.0 5.0 - 8.0 03/22/2025 9:07 AM T [facility] LEUKOCYTE ESTERASE UA 3+(A) Negative 03/22/2025 9:07 AM T [facility] NITRITE UA Negative Negative 03/22/2025 9:07 AM T [facility] PROTEIN UA Trace(A) Negative 03/22/2025 9:07 AM CDT [facility] GLUCOSE UA Negative Negative 03/22/2025 9:07 AM T [facility] KETONES UA Negative Negative 03/22/2025 9:07 AM T [facility] UROBILINOGEN UA <2.0 <2.0 mg/dL 9:07 AM T [facility] BILIRUBIN UA Negative Negative 03/22/2025 9:07 AM T [facility] BLOOD UA Trace(A) Negative 03/22/2025 9:07 AM T [facility] WBC UA 3-5(A) 0 - 2 /hpf 03/22/2025 9:07 AM CDT [facility] RBC UA 3-5(A) 0 - 2 /hpf 03/22/2025 9:07 AM CDT [facility] BACTERIA UA Negative Negative /hpf 03/22/2025 9:07 AM CDT [facility] EPITHELIAL CELLS, URINE 0-5 0 - 5 /hpf 03/22/2025 9:07 AM CDT [facility] TRIPLE PHOS Present(A) Absent 03/22/2025 9:07 AM CDT [facility] Urine URINE SPECIMEN OBTAINED BY CLEAN CATCH PROCEDURE / Unknown Collection / Unknown 03/22/2025 8:38 AM CDT 03/22/2025 8:50 AM CDT us Jaime Ruggiero MD URINE ORDERABLES Final Resul t [facility] CLIA # [id number] [address] [place] [address] * (ABNORMAL) TROPONIN 6 HR, 5TH GEN (03/22/2025 4:36 AM CDT) TROPONIN T, 6 HR 5TH GEN 133(HH) <=15 ng/L 03/22/2025 5:22 AM CDT [facility] DELTA 6HR TROPONIN T % -9 See Interp. % 03/22/2025 5:22 AM CDT [facility] Blood Venipuncture / Unknown 03/22/2025 4:36 AM CDT 03/22/2025 4:46 AM CDT Narrative [facility] - 03/22/2025 5:22 AM CDT Troponin elevated. Delay in collection of timed specimen beyond recommended collection interval. Results must be interpreted in clinical context. Delta not changing. us Bandar Parsons MD CHEMISTRY ORDERABLES Final Res ult Performing Organization Address [facility] Co de Phone Number [facility] CLIA # [id number] [address] [address] * (ABNORMAL) IRON, TIBC, AND PERCENT SATURATION (03/22/2025 4:36 AM CDT) IRON 16(L) 59 - 158 ug/dL 03/22/2025 6:41 PM CDT [facility] TIBC 316 250 - 450 ug/dL 03/22/2025 6:41 PM CDT [facility] IRON % SATURATION 5(L) 15 - 60 % 03/22/2025 6:41 PM CDT [facility] Blood Venipuncture / Unknown 03/22/2025 4:36 AM CDT 03/22/2025 4:46 AM CDT us Jaime Ruggiero MD CHEMISTRY ORDERABLES Final R esult Performing Organization Address [facility] Co de Phone Number [facility] CLIA # [id number] [address] [address] * (ABNORMAL) TSH (03/22/2025 4:36 AM CDT) TSH 6.70(H) 0.27 - 4.20 uIU/mL 03/22/2025 6:41 PM CDT [facility] Blood Venipuncture / Unknown 03/22/2025 4:36 AM CDT 03/22/2025 4:46 AM CDT us Jaime Ruggiero MD CHEMISTRY ORDERABLES Final R esult Performing Organization Address City/[facility]/ZIP Co de Phone Number [facility] CLIA # [id number] [address] [place], [place] [address] * FERRITIN (03/22/2025 4:36 AM CDT) [facility] FERRITIN 31.2 30.0 - 400.0 ng/mL 03/22/2025 6:41 PM CDT [facility] Blood Venipuncture / Unknown 03/22/2025 4:36 AM CDT 03/22/2025 4:46 AM CDT us Jaime Ruggiero MD CHEMISTRY ORDERABLES Final R esult Performing Organization Address [facility]/ZIP Co de Phone Number [facility] CLIA # [id number] [address] [facility] [place], [place] [address] * (ABNORMAL) TROPONIN BASELINE, 5TH GEN (03/21/2025 10:18 PM CDT) [facility] TROPONIN T, BASELINE 5TH GEN 146(HH) <=15 ng/L 03/22/2025 4:37 AM CDT [facility] Blood Venipuncture / Unknown 03/21/2025 10:18 PM CDT 03/21/2025 10:23 PM CDT Narrative [facility] - 03/22/2025 4:37 AM CDT Troponin elevated. us Bandar Parsons MD CHEMISTRY ORDERABLES Final Res ult Performing Organization Address [facility]/ZIP Co de Phone Number [facility] CLIA # [id number] [address] [facility] [place] [address] * (ABNORMAL) BRAIN NATRIURETIC PEPTIDE, BNP OR PROBNP (03/21/2025 10:18 PM CDT) [facility] PROBNP, N TERMINAL 4,282(H) 0 - 125 pg/mL 03/21/2025 10:58 PM CDT [facility] Comment: INTERPRETIVE COMMENT based on diagnosis: Diagnostic [...] Parsons MD CHEMISTRY ORDERABLES Final Res ult [facility] CLIA # [id number] [address] [place] [address] * (ABNORMAL) COMPREHENSIVE METABOLIC PANEL (03/21/2025 10:18 PM CDT) Pathologist [facility] SODIUM 141 136 - 145 mmol/L 03/21/2025 10:58 PM CDT [facility] POTASSIUM 4.5 3.5 - 5.1 mmol/L 03/21/2025 10:58 PM CDT [facility] CHLORIDE 100 98 - 107 mmol/L 03/21/2025 10:58 PM CDT [facility] CO2 33(H) 22 - 29 mmol/L 03/21/2025 10:58 PM CDT [facility] CALCIUM 8.2(L) 8.8 - 10.2 mg/dL 03/21/2025 10:58 PM CDT [facility] BUN 24(H) 8 - 23 mg/dL 03/21/2025 10:58 PM CDT [facility] CREATININE 1.20(H) 0.67 - 1.17 mg/dL 03/21/2025 10:58 PM CDT [facility] Comment:The GFR result is no t clinically significant on patients <18 or >70 years of age. GLUCOSE 118(H) 74 - 99 mg/dL 03/21/2025 10:58 PM CDT [facility] TOTAL PROTEIN 8.5(H) 6.4 - 8.3 g/dL 03/21/2025 10:58 PM CDT [facility] ALBUMIN 2.8(L) 3.5 - 5.2 g/dL 03/21/2025 10:58 PM CDT [facility] BILIRUBIN TOTAL 0.2 0.0 - 1.0 mg/dL 03/21/2025 10:58 PM CDT [facility] ALKALINE PHOSPHATASE 141(H) 40 - 129 U/L 03/21/2025 10:58 PM CDT [facility] AST 9(L) 10 - 50 U/L 03/21/2025 10:58 PM CDT [facility] ALT 6 <=50 U/L 03/21/2025 10:58 PM CDT [facility] GFR >60 mL/min/1. 73 sq meter 03/21/2025 10:58 PM T [facility] Comment:eGFR calculated with 2020 CKD-EPI equation. Vegetarian diet, extremely high or low muscle mass, and may affect results. Cystatin C with Glomerular Filtration Rate is a suitable alternative for these patients. ANION GAP 8(L) 9 - 20 mmol/L 03/21/2025 10:58 PM T [facility] Blood Venipuncture / Unknown 03/21/2025 10:18 PM CDT 03/21/2025 10:23 PM CDT us Bandar Parsons MD CHEMISTRY ORDERABLES Final Res ult [facility] CLIA # [id number] [address] [address] * EKG 12-LEAD (03/21/2025 10:11 PM CDT) 03/21/2025 10:1 1 PM CDT Narrative INTERFACE SYSTEM - 03/23/2025 1:02 PM CDT [address] [address] Test Date: 2025-03-21 Pat Name: [facility] Department: 11 Room: Gender: Male Human Resource Management Instructor: [id number] : 1950 Requested By: Order Number: [id number] Reading MD: Inessa Zamarripa Measurements Intervals [place] Rate: 64 P: 53 MI: 174 QRS: -6 QRSD: 98 T: -77 QT: 434 QTc: 447 Interpretive Statements Sinus rhythm with premature atrial complexes Low voltage QRS Cannot rule out Anterior infarct, age undetermined Abnormal ECG Electronically Signed On 03-23-2025 13:02:21 CDT by Inessa Zamarripa Procedure Note Provider, Historical - 03/23/[address] [address] Test Date: 2025-03-21 Pat Name: [facility] Department: 11 Room: Gender: Male Human Resource Management Instructor: [email or web address] : 1950 Requested By: Order Number: [id number] Reading : Inessa Zamarripa Measurements Intervals [place] Rate: 64 P: 53 MI: 174 QRS: -6 QRSD: 98 T: -77 QT: 434 QTc: 447 Interpretive Statements Sinus rhythm with premature atrial complexes Low voltage QRS Cannot rule out Anterior infarct, age undetermined Abnormal ECG Electronically Signed On 03-23-2025 13:02:21 CDT by Inessa Zamarripa us Bandar Parsons MD ECG ORDERABLES Final Result INTERFACE SYSTEM Refer to clinic/hospital department * ENDOSCOPY, COLON, SCREENING (07/11/2013 12:39 PM LEARNING SUPPORT SERVICES DIRECTOR) 07/11/2013 12:3 9 PM LEARNING SUPPORT SERVICES DIRECTOR Narrative Procedure Note Demetri Chávez MD - 07/10/2013 12:00 AM CST Procedures signed by Demetri Chávze MD at 07/11/2013 12:39 PM Author: Demetri Chávez MD Service: -- Author Type: Physician Filed: 07/11/2013 12:39 PM Date of Service: 07/10/2013 5:25 PM Status:Signed Crating And Moving Estimator: Demetri Chávez MD (Physician) Procedure Orders 1. ENDOSCOPY, COLON, MEDICARE SCREENING (WELLNESS) [[id number]] ordered byat 07/01/13 [address]857 [place], [place] Patient: ISREAL ARGUELLO CSN: [id number] : 1950 Provider: Demetri Chávez MD ENDOSCOPY [...] otherwise unremarkablecolonoscopy. Demetri Chávez MD MMODL D: [id number] V: [id number] cc: Roshan Jimenez DO us Roshan Jimenez DO GI PROCEDURE ORDERABLES Fin al Result [facility] from Last 3 Months or Most Recently Relevant to Health Maintenance Insurance MEDICAID [place] MEDICARE PART A AND B RX [employer] RX Member Subscriber Plan / Payer (Ef fective 2023-Present) Name:Isreal Arguello Relation to Subscriber:Self Name:Isreal Arguello Payer ID:Not on file Group ID:[id number] Type:RX Commercial Address: [address] Advance Directives For more information, please contact: [phone] * NO CPR (In Event of Cardiopulmonary [...]
--- OUTSIDE RECORDS SUMMARY | 2025-06-08 00:23 | XMS_ITS | Encounter Summary ---
Author Organization [facility] Address [address] [place] [address] Care Team Providers Care Senior Marketing Analyst Name Role Phone Roshan Jimenez DO Primary Care Provider Unav ailable Encounter Details Date Type Department Care Team (Latest Contact Info) Description 07/15/2002 Outpatient [facility] [address] [place] [id number] Roshan Jimenez DO NO ADDRESS ON FILE OBSTR CHR BRONCHITIS W AC EXACERB (CMS/HCC) (Primary Dx); HYPERTENSION NOS Social History Tobacco Use Types Packs/Day Years Used Date Smoking Tobacco: Never Assessed Sex and Gender Information Value Date Recorded Sex Assigned at Not on file Legal Sex Male 4:59 AM [employer] Gender Identity Not on file Sexual Orientation Not on file documented as of this encounter Plan of Treatment Not on file documented as of this encounter Visit Diagnoses Diagnosis Obstructive chronic bronchitis with exacerbation (CMS/HCC)- Primary Obstructive chronic bronchitis with exacerbation Unspecified essential hypertension documented in this encounter Care Teams Senior Marketing Analyst Relationship Specialty Start Date End Date Roshan Jimenez DO NO ADDRESS ON FILE PCP - General 03/26/03 documented as of this encounter
--- OUTSIDE RECORDS SUMMARY | 2025-06-08 00:23 | XMS_ITS | Encounter Summary ---
Author Organization [facility] Address [address] [place] [address] Care Team Providers Care Warehouse Administrative Assistant Name Role Phone Roshan Jimenez DO Primary Care Provider Unav ailable Encounter Details Date Type Department Care Team (Late st Contact Info) Description 05/27/2008 Outpatient Historical [facility] [address] [place] [address] Yusef Malagon MD NO ADDRESS ON FILE Social History Tobacco Use Types Packs/Day Years Used Date Smoking Tobacco: Every Day Cigarettes 1 40 Alcohol Use Standard Drinks/Week Comments No 0 (1 standard drink = 0.6 oz pur e alcohol) Sex and Gender Information Value Date Recorded Sex Assigned at Not on file 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 Gender Identity Not on file Sexual [...] AND CLINIC LAB UROBILINOGEN UA 0.2 0.2 [facility] CLARITY UA Clear Clear [facility] GLUCOSE UA NEGATIVE NEGATIVE [facility] SPECIFIC GRAVITY UA 1.005 <=1.005 [facility] PH UA 6.0 5.0 - 9.0 [facility] BILIRUBIN UA NEGATIVE NEGATIVE [facility] LEUKOCYTE ESTERASE UA NEGATIVE NEGATIVE [facility] MICRO EXAM No No [facility] KETONES UA NEGATIVE NEGATIVE [facility] COLOR UA Pale Yellow [facility] PROTEIN UA NEGATIVE NEGATIVE [facility] BLOOD UA NEGATIVE NEGATIVE [facility] Urine specimen (specimen) 05/27/2008 10:56 AM CDT 05/27/2008 10:56 AM CDT us Yusef Malagon MD URINE ORDERABLES Final Result Performing Organization Address City/State/[facility] Co de Phone Number INTERFACE SYSTEM Refer to clinic/hospital department [facility] CLIA# [id number] [address] [place] [address] * CBC WITH DIFFERENTIAL (05/27/2008 10:53 AM CDT) HEMATOCRIT 50.0 41.0 - 53.0 % [facility] PLATELETS 245 140 - 440 K/ul [facility] EOSINOPHILS 3.7 0.0 - 7.0 % [facility] WBC 8.5 4.8 - 10.8 K/ul [facility] EOSINOPHIL ABSOLUTE 0.3 0.0 - 0.7 K/ul [facility] RBC 5.00 4.60 - 6.20 Mil/ul [facility] MCHC 33.0 30.0 - 35.0 g/dL [facility] LYMPHOCYTES 25.7 24.0 - 44.0 % [facility] MONOCYTE ABSOLUTE 0.5 0.1 - 0.6 K/ul [facility] BASOPHILS ABSOLUTE 0.1 0.0 - 0.2 K/ul [facility] MCV 100.0 84.0 - 103.0 Fl [facility] BASOPHILS 0.7 0.0 - 1.0 % [facility] MPV 11.7 8.9 - 12.8 Fl [facility] HEMOGLOBIN 16.5 14.0 - 18.0 g/dL [facility] MONOCYTES 5.8 2.0 - 10.0 % [facility] RDW 14.3 11.0 - 14.5 % [facility] LYMPHOCYTE ABSOLUTE 2.2 1.2 - 4.0 K/ul [facility] NEUTROPHILS 64.1 42.2 - 75.2 % [facility] MCH 33.0 27.0 - 34.0 pg [facility] NEUTROPHIL ABSOLUTE 5.4 2.0 - 8.0 K/ul [facility] Blood specimen (specimen) 05/27/2008 10:53 AM CDT 05/27/2008 11:08 AM CDT us Yusef Malagon MD HEMATOLOGY ORDERABLES Final Re sult Performing Organization Address City/[facility] Co de Phone Number INTERFACE SYSTEM Refer to clinic/hospital department [facility] CLIA# [id number] [address] [place] [address] * ANTIBODY SCREEN (05/27/2008 10:53 AM CDT) ANTIBODY SCREEN Negative [facility] Blood specimen (specimen) 05/27/2008 10:53 AM CDT 05/27/2008 11:08 AM CDT us Yusef Malagon MD BLOOD BANK ORDERABLES Final Re sult Performing Organization Address City/[facility] Co de Phone Number INTERFACE SYSTEM Refer to clinic/hospital department [facility] CLIA# [id number] [address] [place] [address] * ABORH TYPING (05/27/2008 10:53 AM CDT) ABO/RH TYPE O Positive [facility] Blood specimen (specimen) 05/27/2008 10:53 AM CDT 05/27/2008 11:08 AM CDT us Yusef Malagon MD BLOOD BANK ORDERABLES Final Re sult Performing Organization Address [facility] Phone Number INTERFACE SYSTEM Refer to clinic/hospital department [facility] CLIA# [id number] [address] [place] [address] * BASIC METABOLIC PANEL (05/27/2008 10:53 AM CDT) POTASSIUM 4.0 3.5 - 5.0 mEq/L [facility] CO2 29 22 - 32 mmol/l [facility] CHLORIDE 109 95 - 110 mEq/L [facility] OSMOLALITY, CALCULATED 294 275 - 295 mOsm/Kg [facility] CREATININE 1.0 0.7 - 1.5 mg/dL [facility] CALCIUM 9.4 8.4 - 10.5 mg/dL [facility] SODIUM 143 136 - 145 mEq/L [facility] GLUCOSE 88 70 - 110 mg/dL [facility] ANION GAP 9 9 - 20 mEq/L [facility] BUN 16 9 - 20 mg/dL [facility] Blood specimen (specimen) 05/27/2008 10:53 AM CDT 05/27/2008 11:08 AM CDT us Yusef Malagon MD CHEMISTRY ORDERABLES Final Res ult Performing Organization Address [facility] de Phone Number INTERFACE SYSTEM Refer to clinic/hospital department [facility] CLIA# [id number] [address] [place] [address] documented in this encounter Visit Diagnoses Not on filedocumented in this encounter Care Teams Warehouse Administrative Assistant Relationship Specialty Start Date End Date Roshan Jimenez DO NO ADDRESS ON FILE PCP - General 03/26/03 documented as of this encounter
--- OUTSIDE RECORDS SUMMARY | 2025-06-08 00:23 | XMS_ITS | Encounter Summary ---
Author Organization [facility] Address [address] [place] [address] Care Team Providers Care Public Health Dietitian Name Role Phone Roshan Jimenez DO Primary Care Provider Unav ailable Encounter Details Date Type Department Care Team (Latest Contact Info) Description 01/01/2007 Outpatient Historical [facility] Th[facility] 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
--- OUTSIDE RECORDS SUMMARY | 2025-06-08 00:23 | XMS_ITS | Encounter Summary ---
Author Organization [facility] Address [address] [place] [address] Care Team Providers Care Business Development Manager Name Role Phone Roshan Jimenez DO Primary Care Provider Unav ailable Encounter Details Date Type Department Care Team (Latest Contact Info) Description 10/24/2006 Outpatient [facility] Ear, Nose and Throat 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
--- OUTSIDE RECORDS SUMMARY | 2025-06-08 00:23 | XMS_ITS | Encounter Summary ---
Author Organization [facility] Address [address] [place] [address] Care Team Providers Care Adobe Developer Name Role Phone Roshan Jimenez DO Primary Care Provider Unav ailable Encounter Details Date Type Department Care Team (Latest Contact Info) Description 04/29/2005 Outpatient Historical [facility] [address] [place] [phone] Merlin Reilly MD NO ADDRESS ON FILE HYPERSOMNIA W SLEEP APNEA NOS (Primary Dx) Social History Tobacco Use Types Packs/Day Years Used Date Smoking Tobacco: Never Assessed Sex and Gender Information Value Date Recorded Sex Assigned at Not on file 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
--- OUTSIDE RECORDS SUMMARY | 2025-06-08 00:23 | XMS_ITS | Encounter Summary ---
Author Organization [facility] Address [address] [place] [address] Care Team Providers Care Identity Management Developer Name Role Phone Roshan Jimenez DO Primary Care Provider Unav ailable Encounter Details Date Type Department Care Team (Latest Contact Info) Description 07/13/2005 Outpatient [facility] [address] [place] [address] Roshan Jimenez DO NO ADDRESS ON FILE ASTHMA UNSPECIFIED (Primary Dx); CHRONIC AIRWAY OBSTRUCTION NEC (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
--- OUTSIDE RECORDS SUMMARY | 2025-06-08 00:23 | XMS_ITS | Encounter Summary ---
Author Organization [facility] Address [address] [place] [address] Care Team Providers Care Wood Dowel Machine Operator Name Role Phone Roshan Jimenez DO Primary Care Provider Unav ailable Encounter Details Date Type Department Care Team (Latest Contact Info) Description 11/30/2006 Outpatient Historical [facility] Ear, Nose and Throat 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
--- OUTSIDE RECORDS SUMMARY | 2025-06-08 00:23 | XMS_ITS | Encounter Summary ---
Author Organization [facility] Address [address] [place] [address] Care Team Providers Care Religious Studies Professor Name Role Phone Roshan Jimenez DO Primary Care Provider Unav ailable Encounter Details Date Type Department Care Team (Latest Contact Info) Description 11/16/2006 Outpatient Historical [facility] Ear, Nose and Throat 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
--- OUTSIDE RECORDS SUMMARY | 2025-06-08 00:23 | XMS_ITS | Encounter Summary ---
Author Organization [facility] Address [address] [place] [address] Care Team Providers Care Livestock Farm Workers Name Role Phone Roshan Jimenez DO Primary Care Provider Unav ailable Encounter Details Date Type Department Care Team (Latest Contact Info) Description 04/18/2005 Outpatient [facility] [address] [place] [address] Roshan Jimenez DO NO ADDRESS ON FILE MORBID OBESITY ([facility]) (Primary Dx); SLEEP APNEA NOS; EDEMA; ASTHMA UNSPECIFIED Social History Tobacco Use Types Packs/Day Years Used Date Smoking Tobacco: Never Assessed Sex and Gender Information Value Date Recorded Sex Assigned at Not on file Legal Sex Male 4:59 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
--- OUTSIDE RECORDS SUMMARY | 2025-06-08 00:23 | XMS_ITS | Encounter Summary ---
Author Organization [facility] Address [address] [place] [address] Care Team Providers Care Cold Rolling Coordinator Name Role Phone Roshan Jimenez DO Primary Care Provider Unav ailable Encounter Details Date Type Department Care Team (Latest Contact Info) Description 04/03/2007 Outpatient [facility] [address] [place] [address] Roshan Jimenez DO NO ADDRESS ON FILE Unspecified Essential Hypertension (Primary Dx); Other Apnea of [place]; Obesity, Unspecified Social History Tobacco Use Types Packs/Day Years Used Date Smoking Tobacco: Never Assessed Sex and Gender Information Value Date Recorded Sex Assigned at Not on file 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
--- OUTSIDE RECORDS SUMMARY | 2025-06-08 00:23 | XMS_ITS | Encounter Summary ---
Author Organization [facility] Address [address] [place] [address] Care Team Providers Care Compliance Lead Name Role Phone Roshan Jimenez DO Primary Care Provider Unav ailable Encounter Details Date Type Department Care Team (Latest Contact Info) Description 02/15/2005 Outpatient [facility] [address] [place] [address] Roshan Jimenez DO NO ADDRESS ON FILE CHRONIC AIRWAY OBSTRUCTION NEC ([facility]) (Primary Dx); OBESITY NOS; HYPERTENSION NOS; OTHER UNSPEC SLEEP APNEA Social History Tobacco Use Types Packs/Day Years Used Date Smoking Tobacco: Never Assessed Sex and Gender Information Value Date Recorded Sex Assigned at Not on file 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 Sex Male 4:59 AM CAN SEALER Gender Identity Not on file Sexual Orientation Not on file documented as of this encounter Plan of Treatment Not on file documented as of this encounter Visit Diagnoses Diagnosis Chronic airway obstruction, not elsewhere classified ([facility])- Primary Chronic airway obstruction, not elsewhere classified Obesity, unspecified Unspecified essential hypertension Unspecified sleep apnea documented in this encounter Care Teams Compliance Lead Relationship Specialty Start Date End Date Roshan Jimenez DO NO ADDRESS ON FILE PCP - General 03/26/03 documented as of this encounter
--- OUTSIDE RECORDS SUMMARY | 2025-06-08 00:23 | XMS_ITS | Encounter Summary ---
Author Organization [facility] Address [address] [place] [address] Care Team Providers Care Acoustical Tile Drill Press Operator Name Role Phone Roshan Jimenez DO Primary Care Provider Unav ailable Encounter Details Date Type Department Care Team (Latest Contact Info) Description 02/15/2005 Outpatient Historical [facility] [address] [place] [address] Roshan Jimenez DO NO ADDRESS ON FILE CORONARY ATHEROSCLER UNSPEC VESSEL (Primary Dx) Social History Tobacco Use Types Packs/Day Years Used Date Smoking Tobacco: Never Assessed Sex and Gender Information Value Date Recorded Sex Assigned at Not on file 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
--- OUTSIDE RECORDS SUMMARY | 2025-06-08 00:23 | XMS_ITS | Encounter Summary ---
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
--- OUTSIDE RECORDS SUMMARY | 2025-06-08 00:23 | XMS_ITS | Encounter Summary ---
Author Organization [facility] Address [address] [place] [address] Care Team Providers Care Antique Automobiles Repairer Name Role Phone Roshan Jimenez DO Primary Care Provider Unav ailable Encounter Details Date Type Department Care Team (Latest Contact Info) Description 03/09/2005 Outpatient Historical [facility] [address] [place] [address] [place] [address] Zofia Gleason, BOTTLE LABELER [address] [place] [address] HYPERSOMNI W SLEEP APNEA (Primary Dx) Social History Tobacco Use Types Packs/Day Years Used Date Smoking Tobacco: Never Assessed Sex and Gender Information Value Date Recorded Sex Assigned at Not on file Legal Sex Male 4:59 AM WAX MOLDER Gender Identity Not on file Sexual Orientation Not on file documented as of this encounter Plan of Treatment Not on file documented as of this encounter Visit Diagnoses Diagnosis Hypersomnia with sleep apnea, unspecified- Primary documented in this encounter Care Teams [employer] Repairer Relationship Specialty Start Date End Date Roshan Jimenez DO NO ADDRESS ON FILE PCP - General 03/26/03 documented as of this encounter
--- OUTSIDE RECORDS SUMMARY | 2025-06-08 00:23 | XMS_ITS | Encounter Summary ---
Author Organization [facility] Address [address] [place] [address] Care Team Providers Care Emergency Room Clinician Name Role Phone Roshan Jimenez DO Primary Care Provider Unav ailable Encounter Details Date Type Department Care Team (Latest Contact Info) Description 04/18/2006 Outpatient [facility] [address] [place] [address] Roshan Jimenez DO NO ADDRESS ON FILE Depressive Disorder, not Elsewhere Classified (Primary Dx); Anxiety State, Unspecified; Unspecified Essential Hypertension Social History Tobacco Use Types Packs/Day Years Used Date Smoking Tobacco: Never Assessed Sex and Gender Information Value Date Recorded Sex Assigned at Not on file Legal Sex Male 4:59 AM STEM SIZER Gender Identity Not on file Sexual Orientation Not on file documented as of this encounter Plan of Treatment Not on file documented as of this encounter Visit Diagnoses Diagnosis Depressive disorder, not elsewhere classified- Primary Anxiety state, unspecified Unspecified essential hypertension documented in this encounter Care Teams Emergency Room Clinician Relationship Specialty Start Date End Date Roshan Jimenez DO NO ADDRESS ON FILE PCP - General 03/26/03 documented as of this encounter
--- OUTSIDE RECORDS SUMMARY | 2025-06-08 00:23 | XMS_ITS | Encounter Summary ---
Author Organization [facility] Address [address] [place] [address] Care Team Providers Care Box Turner Name Role Phone Roshan Jimenez DO Primary Care Provider Unav ailable Encounter Details Date Type Department Care Team (Latest Contact Info) Description 10/20/2006 Outpatient Historical [facility] [address] [place] [phone] Merlin Reilly MD NO ADDRESS ON FILE Obstructive Sleep Apnea (Primary Dx) Social History Tobacco Use Types Packs/Day Years Used Date Smoking Tobacco: Never Assessed Sex and Gender Information Value Date Recorded Sex Assigned at Not on file 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
--- OUTSIDE RECORDS SUMMARY | 2025-06-08 00:23 | XMS_ITS | Encounter Summary ---
Author Organization [facility] Address [address] [place] [address] Care Team Providers Care Racecar Driver Name Role Phone Roshan Jimenez DO Primary Care Provider Unav ailable Encounter Details Date Type Department Care Team (Latest Contact Info) Description 02/17/2006 Outpatient [facility] [address] [place] [address] Roshan Jimenez DO NO ADDRESS ON FILE Viral Infection (Primary Dx); Unspecified Essential Hypertension; Unspecified Chronic Bronchitis (CMS/HCC); Impacted Cerumen Social History Tobacco Use Types Packs/Day Years Used Date Smoking Tobacco: Never Assessed Sex and Gender Information Value Date Recorded Sex Assigned at Not on file Legal Sex Male 4:59 AM GARMENT STEAMER Gender Identity Not on file Sexual Orientation Not on file documented as of this encounter Plan of Treatment Not on file documented as of this encounter Visit Diagnoses Diagnosis Unspecified viral infection, in conditions classified elsewhere and of unspecified site- Primary Unspecified essential hypertension Unspecified chronic bronchitis (CMS/HCC) Unspecified chronic bronchitis Impacted cerumen documented in this encounter Care Teams Racecar Driver Relationship Specialty Start Date End Date Roshan Jimenez DO NO ADDRESS ON FILE PCP - General 03/26/03 documented as of this encounter
--- OUTSIDE RECORDS SUMMARY | 2025-06-08 00:23 | XMS_ITS | Encounter Summary ---
Author Organization [facility] Address [address] [place] [address] Care Team Providers Care Wrapper Stripper Name Role Phone Roshan Jimenez DO Primary Care Provider Unav ailable Encounter Details Date Type Department Care Team (Latest Contact Info) Description 11/01/2006 Outpatient Historical [facility] [address] [place] [address] John Black MD NO ADDRESS ON FILE Pre-Operative Cardiovascular Examination (Primary Dx) Social History Tobacco Use Types Packs/Day Years Used Date Smoking Tobacco: Never Assessed Sex and Gender Information Value Date Recorded Sex Assigned at Not on file Legal Sex Male 4:59 AM STAGE PRODUCER Gender Identity Not on file Sexual Orientation Not on file documented as of this encounter Plan of Treatment Not on file documented as of this encounter Procedures Procedure Name Priority Date/Time Associated Diagnosis Comments COMPREHENSIVE METABOLIC PANEL Routine 11/01/2006 10:35 AM STAGE PRODUCER XR CHEST PA OR AP 1 VW Routine 7 10:09 AM STAGE PRODUCER documented in this encounter Results * (ABNORMAL) COMPREHENSIVE METABOLIC PANEL (11/01/2006 10:35 AM STAGE PRODUCER) GLUCOSE 99 70 - 110 mg/dL INTERFACE [...] mOsm/Kg INTERFACE SYSTEM 11/01/2006 10:3 5 AM STAGE PRODUCER John Black MD CHEMISTRY ORDERABLES Edited INTERFACE SYSTEM Refer to clinic/hospital department * XR CHEST PA OR AP (11/01/2006 10:09 AM STAGE PRODUCER) Anatomical Region Laterality Modality Chest Other 11/01/2006 10:0 9 AM STAGE PRODUCER Narrative 11/01/2006 10:09 AM STAGE PRODUCER PA CHEST: 11/01/2006Chronic appearing accentuated bronchovascular markings [...] Primary documented in this encounter Care Teams Wrapper Stripper Relationship Specialty Start Date End Date Roshan Jimenez DO NO ADDRESS ON FILE PCP - General 03/26/03 documented as of this encounter
--- OUTSIDE RECORDS SUMMARY | 2025-06-08 00:23 | XMS_ITS | Encounter Summary ---
Author Organization [facility] Address [address] [place] [address] Care Team Providers Care Material Damage Appraiser Name Role Phone Roshan Jimenez DO Primary [...] file Legal Sex Male 4:59 AM METAL GAUGE MAKER Gender Identity Not on file Sexual [...] CDT) PROTIME 23.5(H) 12.8 - 15.8 Secs [facility] Comment:As of 2007 not e change in normal range. INR 1.9 [facility] Comment: Expected Values for INR: DVT/PE Goal INR 2.5; range 2.0 - 3.0 Valve Replacement Tissue Goal INR 2.5; range 2.0 - 3.0 Mechanical Goal INR 3.0; range 2.5 - 3.5 POST-MD Goal INR 2.5; range 2.0 - 3.0 or Goal 3.0; range 2.5 - 3.5 Atrial Fibrillation Goal INR 2.5; range 2.0 - 3.0 Ischemic Stroke Goal INR 2.5; range 2.0 - 3.0 For additional information see Guidelines for Anticoagulation available from the pharmacy [facility] [phone] Blood specimen (specimen) 06/09/2008 4:58 AM CDT 06/09/2008 5:24 AM CDT us Moiz Barros MD HEMATOLOGY ORDERABLES Fi nal Result INTERFACE SYSTEM Refer to clinic/hospital department [facility] CLIA# [id number] [address] [place] [address] * (ABNORMAL) PROTIME-INR (06/08/2008 4:50 AM CDT) INR 1.5 [facility] Comment: Expected Values for INR: DVT/PE Goal INR 2.5; range 2.0 - 3.0 Valve Replacement Tissue Goal INR 2.5; range 2.0 - 3.0 Mechanical Goal INR 3.0; range 2.5 - 3.5 POST-MD Goal INR 2.5; range 2.0 - 3.0 or Goal 3.0; range 2.5 - 3.5 Atrial Fibrillation Goal INR 2.5; range 2.0 - 3.0 Ischemic Stroke Goal INR 2.5; range 2.0 - 3.0 For additional information see Guidelines for Anticoagulation available from the pharmacy [facility] [phone] PROTIME 20.0(H) 12.8 - 15.8 Secs [facility] Comment:As of 2007 not e change in normal range. Blood specimen (specimen) 06/08/2008 4:50 AM CDT 06/08/2008 5:18 AM CDT us Moiz Barros MD HEMATOLOGY ORDERABLES Fi nal Result INTERFACE SYSTEM Refer to clinic/hospital department [facility] CLIA# [id number] [address] [place] [address] * (ABNORMAL) CBC WITH DIFFERENTIAL (06/07/2008 5:35 AM CDT) NEUTROPHIL ABSOLUTE 10.9(H) 2.0 - 8.0 K/ul [facility] HEMATOCRIT 40.7(L) 41.0 - 53.0 % [facility] PLATELETS 188 140 - 440 K/ul [facility] EOSINOPHIL ABSOLUTE 0.1 0.0 - 0.7 K/ul [facility] EOSINOPHILS 0.7 0.0 - 7.0 % [facility] RBC 4.15(L) 4.60 - 6.20 Mil/ul [facility] MCHC 32.9 30.0 - 35.0 g/dL [facility] LYMPHOCYTE ABSOLUTE 1.7 1.2 - 4.0 K/ul [facility] LYMPHOCYTES 11.5(L) 24.0 - 44.0 % [facility] MCV 98.1 84.0 - 103.0 Fl [facility] BASOPHILS 0.2 0.0 - 1.0 % [facility] MPV 10.4 8.9 - 12.8 Fl [facility] BASOPHILS ABSOLUTE 0.0 0.0 - 0.2 K/ul [facility] HEMOGLOBIN 13.4(L) 14.0 - 18.0 g/dL [facility] RDW 14.0 11.0 - 14.5 % [facility] MONOCYTES 11.5(H) 2.0 - 10.0 % [facility] MONOCYTE ABSOLUTE 1.7(H) 0.1 - 0.6 K/ul [facility] WBC 14.4(H) 4.8 - 10.8 K/ul [facility] MCH 32.3 27.0 - 34.0 pg [facility] NEUTROPHILS 76.1(H) 42.2 - 75.2 % [facility] Blood specimen (specimen) 06/07/2008 5:35 AM CDT 06/07/2008 5:47 AM CDT us Moiz Barros MD HEMATOLOGY ORDERABLES Fi nal Result INTERFACE SYSTEM Refer to clinic/hospital department [facility]# [id number] [address] [place] [address] * (ABNORMAL) PROTIME-INR (06/07/2008 5:35 AM CDT) PROTIME 18.6(H) 12.8 - 15.8 Secs [facility] Comment:As of 2007 not e change in normal range. INR 1.4 [facility] Comment: Expected Values for INR: DVT/PE Goal INR 2.5; range 2.0 - 3.0 Valve Replacement Tissue Goal INR 2.5; range 2.0 - 3.0 Mechanical Goal INR 3.0; range 2.5 - 3.5 POST-MD Goal INR 2.5; range 2.0 - 3.0 or Goal 3.0; range 2.5 - 3.5 Atrial Fibrillation Goal INR 2.5; range 2.0 - 3.0 Ischemic Stroke Goal INR 2.5; range 2.0 - 3.0 For additional information see Guidelines for Anticoagulation available from the pharmacy [facility] [phone] Blood specimen (specimen) 06/07/2008 5:35 AM CDT 06/07/2008 5:47 AM CDT us Yusef Malagon MD HEMATOLOGY ORDERABLES Final Re sult INTERFACE SYSTEM Refer to clinic/hospital department [facility] CLIA# [id number] [address] [place] [address] * (ABNORMAL) PROTIME-INR (06/06/2008 5:32 AM CDT) PROTIME 16.3(H) 12.8 - 15.8 Secs [facility] Comment:As of 2007 not e change in normal range. INR 1.2 [facility] Comment: Expected Values for INR: DVT/PE Goal INR 2.5; range 2.0 - 3.0 Valve Replacement Tissue Goal INR 2.5; range 2.0 - 3.0 Mechanical Goal INR 3.0; range 2.5 - 3.5 POST-MD Goal INR 2.5; range 2.0 - 3.0 or Goal 3.0; range 2.5 - 3.5 Atrial Fibrillation Goal INR 2.5; range 2.0 - 3.0 Ischemic Stroke Goal INR 2.5; range 2.0 - 3.0 For additional information see Guidelines for Anticoagulation available from the pharmacy [facility] [phone] Blood specimen (specimen) 06/06/2008 5:32 AM CDT 06/06/2008 5:54 AM CDT us Yusef Malagon MD HEMATOLOGY ORDERABLES Final Re sult INTERFACE SYSTEM Refer to clinic/hospital department [facility] CLIA# [id number] [address] [place] [address] * (ABNORMAL) CBC WITH DIFFERENTIAL (06/06/2008 5:32 AM CDT) BASOPHILS 0.3 0.0 - 1.0 % [facility] BASOPHILS ABSOLUTE 0.0 0.0 - 0.2 K/ul [facility] HEMATOCRIT 40.4(L) 41.0 - 53.0 % [facility] PLATELETS 217 140 - 440 K/ul [facility] MONOCYTES 11.3(H) 2.0 - 10.0 % [facility] MONOCYTE ABSOLUTE 1.4(H) 0.1 - 0.6 K/ul [facility] RBC 4.12(L) 4.60 - 6.20 Mil/ul [facility] MCHC 32.7 30.0 - 35.0 g/dL [facility] NEUTROPHIL ABSOLUTE 9.3(H) 2.0 - 8.0 K/ul [facility] MCV 98.1 84.0 - 103.0 Fl [facility] MPV 10.9 8.9 - 12.8 Fl [facility] EOSINOPHIL ABSOLUTE 0.1 0.0 - 0.7 K/ul [facility] EOSINOPHILS 0.6 0.0 - 7.0 % [facility] HEMOGLOBIN 13.2(L) 14.0 - 18.0 g/dL [facility] RDW 13.8 11.0 - 14.5 % [facility] LYMPHOCYTE ABSOLUTE 1.7 1.2 - 4.0 K/ul [facility] LYMPHOCYTES 13.7(L) 24.0 - 44.0 % [facility] WBC 12.5(H) 4.8 - 10.8 K/ul [facility] NEUTROPHILS 74.1 42.2 - 75.2 % [facility] MCH 32.0 27.0 - 34.0 pg [facility] Blood specimen (specimen) 06/06/2008 5:32 AM CDT 06/06/2008 5:56 AM CDT us Yusef Malagon MD HEMATOLOGY ORDERABLES Final Re sult Performing Organization Address [facility] Phone Number INTERFACE SYSTEM Refer to clinic/hospital department [facility] CLIA# [id number] [address] [place] [address] * (ABNORMAL) BASIC METABOLIC PANEL (06/06/2008 5:32 AM CDT) [facility] SODIUM 137 136 - 145 mEq/L [facility] ANION GAP 9 9 - 20 mEq/L [facility] BUN 13 9 - 20 mg/dL [facility] CO2 26 22 - 32 mmol/l [facility] OSMOLALITY, CALCULATED 283 275 - 295 mOsm/Kg [facility] POTASSIUM 3.7 3.5 - 5.0 mEq/L [facility] CREATININE 0.8 0.7 - 1.5 mg/dL [facility] CALCIUM 8.9 8.4 - 10.5 mg/dL [facility] GLUCOSE 122(H) 70 - 110 mg/dL [facility] CHLORIDE 106 95 - 110 mEq/L [facility] Blood specimen (specimen) 06/06/2008 5:32 AM CDT 06/06/2008 5:56 AM CDT us Yusef Malagon MD CHEMISTRY ORDERABLES Final Res ult Performing Organization Address [facility] de Phone Number INTERFACE SYSTEM Refer to [facility] CLIA# [id number] [address] [place] [address] * (ABNORMAL) POC GLUCOSE (06/05/2008 3:01 PM CDT) GLUCOSE POC 115(H) 60 - 100 mg/dL [facility] Venous blood specimen (specimen) 06/05/2008 3:01 PM CDT 06/05/2008 4:38 PM CDT us Yusef Malagon MD POINT OF CARE TESTING Final Re sult INTERFACE SYSTEM Refer to clinic/hospital department [facility] CLIA# [id number] [address] [place] [address] * XR KNEE 1 OR 2 VW [...] GLUCOSE POC 94 60 - 100 mg/dL [facility] Venous blood specimen (specimen) 06/05/2008 11:08 AM CDT 06/06/2008 7:27 AM CDT us Yusef Malagon MD POINT OF CARE TESTING Final Re sult Performing Organization Address [facility] Co de Phone Number INTERFACE SYSTEM Refer to clinic/hospital department [facility] CLIA# [id number] [address] [place] [address] * TYPE AND CROSSMATCH (06/05/2008 6:35 AM CDT) Pathologist [facility] BLOOD BANK PRODUCT INTERFACE SYSTEM Blood specimen (specimen) 06/05/2008 6:35 AM CDT 06/05/2008 6:35 AM CDT us Yusef Malagon MD BLOOD BANK ORDERABLES Final Re sult Performing Organization Address [facility] de Phone Number INTERFACE SYSTEM Refer to clinic/hospital department documented in this encounter Visit Diagnoses Not on filedocumented in this encounter Care Teams Material Damage Appraiser Relationship Specialty Start Date End Date Roshan Jimenez DO NO ADDRESS ON FILE PCP - General 03/26/03 documented as of this encounter
--- OUTSIDE RECORDS SUMMARY | 2025-06-08 00:24 | XMS_ITS | Encounter Summary ---
Author Organization [facility] Address [address] [place] [address] Care Team Providers Care Java Architect Name Role Phone Roshan Jimenez DO Primary Care Provider Unav ailable Encounter Details Date Type Department Care Team (Latest Contact Info) Description 12/25/2000 Outpatient [facility] [address] [place] [address] Roshan Jimenez DO NO ADDRESS ON FILE Obstructive chronic bronchitis with exacerbation (CMS/HCC) (Primary Dx); Unspecified chronic bronchitis (CMS/HCC); Unspecified sleep apnea; Obesity, unspecified Social History Tobacco Use Types Packs/Day Years Used Date Smoking Tobacco: Never Assessed Sex and Gender Information Value Date Recorded Sex Assigned at Not on file Legal Sex Male 4:59 AM BOILER 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 SUPERVISOR Gender Identity Not on file Sexual Orientation Not on file documented as of this encounter Plan of Treatment Not on file documented as of this encounter Visit Diagnoses Diagnosis Obstructive chronic bronchitis with exacerbation (CMS/HCC)- Primary Obstructive chronic bronchitis with exacerbation Unspecified chronic bronchitis (CMS/HCC) Unspecified chronic bronchitis Unspecified sleep apnea Obesity, unspecified documented in this encounter Care Teams Java Architect Relationship Specialty Start Date End Date Roshan Jimenez DO NO ADDRESS ON FILE PCP - General 03/26/03 documented as of this encounter
--- OUTSIDE RECORDS SUMMARY | 2025-06-08 00:24 | XMS_ITS | Encounter Summary ---
Author Organization [facility] Address [address] [place] [address] Care Team Providers Care Well Logging Captain Name Role Phone Roshan Jimenez DO Primary Care Provider Unav ailable Encounter Details Date Type Department Care Team (Latest Contact Info) Description 03/22/2000 Outpatient Historical [facility] [address] [place] [address] Roshan Jimenez DO NO ADDRESS ON FILE Unspecified essential hypertension (Primary Dx); Chronic airway obstruction, not elsewhere classified (CMS/HCC); Transient tic disorder; Osteoarthrosis, unspecified whether generalized or localized, unspecified site Social History Tobacco Use Types Packs/Day Years Used Date Smoking Tobacco: Never Assessed Sex and Gender Information Value Date Recorded Sex Assigned at Not on file Legal Sex Male 4:59 AM JAVA PORTAL DEVELOPER Gender Identity Not on file Sexual [...] site documented in this encounter Care Teams Well Logging Captain Relationship Specialty Start Date End Date Roshan Jimenez DO NO ADDRESS ON FILE PCP - General 03/26/03 documented as of this encounter
--- OUTSIDE RECORDS SUMMARY | 2025-06-08 00:24 | XMS_ITS | Encounter Summary ---
Author Organization [facility] Address [address] [place] [address] Care Team Providers Care Hardware Test Engineer Name Role Phone Roshan Jimenez DO Primary Care Provider Unav ailable Encounter Details Date Type Department Care Team (Late st Contact Info) Description 01/10/2000 Outpatient Historical [facility] [address] [place] [phone] Social History Tobacco Use Types Packs/Day Years Used Date Smoking Tobacco: Never Assessed Sex and Gender Information Value Date Recorded Sex Assigned at Not on file Legal Sex Male 4:59 AM COLUMNIST Gender Identity Not on file Sexual Orientation Not on file documented as of this encounter Plan of Treatment Not on file documented as of this encounter Visit Diagnoses Not on filedocumented in this encounter Care Teams Hardware Test Engineer Relationship Specialty Start Date End Date Roshan Jimenez DO NO ADDRESS ON FILE PCP - General 03/26/03 documented as of this encounter
--- OUTSIDE RECORDS SUMMARY | 2025-06-08 00:24 | XMS_ITS | Encounter Summary ---
Author Organization [facility] Address [address] [place] [address] Care Team Providers Care Shovel Mechanic Name Role Phone Roshan Jimenez DO Primary Care Provider Unav ailable Encounter Details Date Type Department Care Team (Latest Contact Info) Description 05/23/2000 Outpatient Historical [facility] D[facility]- [facility] [address] [place] [phone] Irineo Snyder MD NO ADDRESS ON FILE Hidradenitis (Primary Dx); Benign miguel skin trunk Social History Tobacco Use Types Packs/Day Years Used Date Smoking Tobacco: Never Assessed Sex and Gender Information Value Date Recorded Sex Assigned at Not on file Legal Sex Male 4:59 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
--- OUTSIDE RECORDS SUMMARY | 2025-06-08 00:24 | XMS_ITS | Encounter Summary ---
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
--- OUTSIDE RECORDS SUMMARY | 2025-06-08 00:24 | XMS_ITS | Encounter Summary ---
Author Organization [facility] Address [address] [place] [address] Care Team Providers Care Processing Spec Name Role Phone Roshan Jimenez DO Primary Care Provider Unav ailable Encounter Details Date Type Department Care Team (Late st Contact Info) Description 02/24/[address] [facility] [address] [place] [phone] Social History Tobacco Use Types Packs/Day Years Used Date Smoking Tobacco: Never Assessed Sex and Gender Information Value Date Recorded Sex Assigned at Not on file Legal Sex Male 4:59 AM CLINICAL LABORATORY AIDE Gender Identity Not on file Sexual Orientation Not on file documented as of this encounter Plan of Treatment Not on file documented as of this encounter Visit Diagnoses Not on filedocumented in this encounter Care Teams Processing Spec Relationship Specialty Start Date End Date Roshan Jimenez DO NO ADDRESS ON FILE PCP - General 03/26/03 documented as of this encounter
--- OUTSIDE RECORDS SUMMARY | 2025-06-08 00:24 | XMS_ITS | Encounter Summary ---
Author Organization [facility] Address [address] [place] [address] Care Team Providers Care Machine Plaster Mixer Name Role Phone Roshan Jimenez DO Primary Care Provider Unav ailable Encounter Details Date Type Department Care Team (Latest Contact Info) Description 07/31/2001 Outpatient [facility] [address] [place] [address] Roshan Jimenez DO NO ADDRESS ON FILE HYPERTENSION NOS (Primary Dx); VACCINE FOR INFLUENZA Social History Tobacco Use Types Packs/Day Years Used Date Smoking Tobacco: Never Assessed Sex and Gender Information Value Date Recorded Sex Assigned at Not on file 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
--- OUTSIDE RECORDS SUMMARY | 2025-06-08 00:24 | XMS_ITS | Clinical Summary ---
Author Organization [facility] Address [address] [place] [address] Phone Care Team Providers Care Bindery Chief Name Role Phone Roshan Jimenez DO [...] on file Legal Sex Male 4:59 AM OUTREACH ANALYST Gender Identity Not on file Sexual [...] ENDOSCOPY, COLON, SCREENING Routine 07/11/2013 12:39 PM OUTREACH ANALYST Special screening for malignant neoplasms, colon from Last 3 Months or Most Recently Relevant to Health Maintenance Results * ENDOSCOPY, COLON, SCREENING (07/11/2013 12:39 PM OUTREACH ANALYST) Narrative Transcriptions Demetri Chávez MD - 07/10/2013 5:25 PM [place] [place] Patient: EDSON JAFFE CSN: [id number] : 1950 Provider: Demetri Chávez MD ENDOSCOPY [...] otherwise unremarkablecolonoscopy. Demetri Chávez MD MMODL D: [id number] V: [id number] cc: Roshan Jimenez DO Roshan Jimenez DO GI PROCEDURE ORDERABLES Fin al Result from Last 3 Months or Most Recently Relevant to Health Maintenance Insurance [place] [address] [place] [place] [address] DUAL COMPLETE MCR HMO SNP Advance Directives For more information, please contact: [phone] * Full Code (Latest Code Status on [...] 12:22 PM 01/13/2010 11:02 PM Care Teams Bindery Chief Relationship Specialty Start Date End Date Roshan Jimenez DO NO ADDRESS ON FILE PCP - General 03/26/03
--- OUTSIDE RECORDS SUMMARY | 2025-06-08 00:24 | XMS_ITS | Encounter Summary ---
Author Organization [facility] Address [address] [place] [address] Care Team Providers Care Tire Debeader Name Role Phone Roshan Jimenez DO Primary Care Provider Unav ailable Encounter Details Date Type Department Care Team (Latest Contact Info) Description 11/13/2002 Outpatient [facility] Podiatry-Stevo Bal Morrison [address] [place] [address] Noé Rosa, DPM [address] [place] [address] Onychia of toe (Primary Dx); INGROWING NAIL Social History Tobacco Use Types Packs/Day Years Used Date Smoking Tobacco: Never Assessed Sex and Gender Information Value Date Recorded Sex Assigned at Not on file Legal Sex Male 4:59 AM READING AIDE Gender Identity Not on file Sexual Orientation Not on file documented as of this encounter Plan of Treatment Not on file documented as of this encounter Visit Diagnoses Diagnosis Onychia of toe- Primary Onychia and paronychia of toe Ingrowing nail documented in this encounter Care Teams Tire Debeader Relationship Specialty Start Date End Date Roshan Jimenez DO NO ADDRESS ON FILE PCP - General 03/26/03 documented as of this encounter
--- OUTSIDE RECORDS SUMMARY | 2025-06-08 00:24 | XMS_ITS | Encounter Summary ---
Author Organization [facility] Address [address] [place] [address] Care Team Providers Care Information Assurance Manager Name Role Phone Roshan Jimenez DO Primary Care Provider Unav ailable Encounter Details Date Type Department Care Team (Latest Contact Info) Description 07/06/2000 Outpatient Historical [facility] Dermat[facility]- [facility] Aaron [address] [place] [phone] Irineo Snyder MD NO ADDRESS ON FILE Hidradenitis (Primary Dx); Benign miguel skin trunk Social History Tobacco Use Types Packs/Day Years Used Date Smoking Tobacco: Never Assessed Sex and Gender Information Value Date Recorded Sex Assigned at Not on file Legal Sex Male 4:59 AM GAUGE AND INSTRUMENT INSPECTOR Gender Identity Not on file Sexual Orientation Not on file documented as of this encounter Plan of Treatment Not on file documented as of this encounter Visit Diagnoses Diagnosis Hidradenitis- Primary Benign miguel skin trunk Benign neoplasm of skin of trunk, except scrotum documented in this encounter Care Teams Information Assurance Manager Relationship Specialty Start Date End Date Roshan Jimenez DO NO ADDRESS ON FILE PCP - General 03/26/03 documented as of this encounter
--- OUTSIDE RECORDS SUMMARY | 2025-06-08 00:24 | XMS_ITS | Encounter Summary ---
Author Organization [facility] Address [address] [place] [address] Care Team Providers Care Decommissioning Well Site Manager Name Role Phone Roshan Jimenez DO Primary Care Provider Unav ailable Encounter Details Date Type Department Care Team (Late st Contact Info) Description 12/30/2009 Ancillary Orders [facility] Orthopedics- [address] [place] [address] Yusef Malagon MD NO ADDRESS ON FILE Pain Social History Tobacco Use Types Packs/Day Years Used Date Smoking Tobacco: Every Day Cigarettes 1 42 Alcohol Use Standard Drinks/Week Comments Yes 0 (1 standard drink = 0.6 oz pur e alcohol) Rare Sex and Gender Information Value Date Recorded Sex Assigned at Not on file Legal Sex Male 4:59 AM CHEMISTS Gender Identity Not on file Sexual Orientation [...] pain documented in this encounter Care Teams Decommissioning Well Site Manager Relationship Specialty Start Date End Date Roshan Jimenez DO NO ADDRESS ON FILE PCP - General 03/26/03 documented as of this encounter
--- OUTSIDE RECORDS SUMMARY | 2025-06-08 00:24 | XMS_ITS | Encounter Summary ---
Author Organization [facility] Address [address] [place] [address] Care Team Providers Care Team Leader Surgery Name Role Phone Roshan Jimenez DO Primary Care Provider Unav ailable Encounter Details Date Type Department Care Team (Latest Contact Info) Description 02/12/2001 Outpatient [facility] [address] [place] [address] Roshan Jimenez DO NO ADDRESS ON FILE Unspecified asthma(493.90) (Primary Dx); Chronic airway obstruction, not elsewhere classified (CMS/[facility]) Social History Tobacco Use Types Packs/Day Years Used Date Smoking Tobacco: Never Assessed Sex and Gender Information Value Date Recorded Sex Assigned at Not on file Legal Sex Male 4:59 AM ENGINEER PROCESS Gender Identity Not on file Sexual Orientation Not on file documented as of this encounter Plan of Treatment Not on file documented as of this encounter Visit Diagnoses Diagnosis Unspecified asthma(493.90)- Primary Unspecified asthma Chronic airway obstruction, not elsewhere classified (CMS/HCC) Chronic airway obstruction, not elsewhere classified documented in this encounter Care Teams Team Leader Surgery Relationship Specialty Start Date End Date Roshan Jimenez DO NO ADDRESS ON FILE PCP - General 03/26/03 documented as of this encounter
--- OUTSIDE RECORDS SUMMARY | 2025-06-08 00:24 | XMS_ITS | Encounter Summary ---
Author Organization [facility] Address [address] [place] [address] Care Team Providers Care Outside Dealer Sales Representative Name Role Phone Roshan Jimenez [...] on file Legal Sex Male 4:59 AM BUILDINGS AND GROUNDS COORDINATOR Gender Identity Not on file Sexual Orientation Not on file documented as of this encounter Plan of Treatment Not on file documented as of this encounter Visit Diagnoses Diagnosis Bronchitis, not specified as acute or chronic- Primary Other and unspecified hyperlipidemia Inhibited sex excitement Psychosexual dysfunction with inhibited sexual excitement Unspecified essential hypertension documented in this encounter Care Teams Outside Dealer Sales Representative Relationship Specialty Start Date End Date Roshan Jimenez DO NO ADDRESS ON FILE PCP - General 03/26/03 documented as of this encounter
--- OUTSIDE RECORDS SUMMARY | 2025-06-08 00:24 | XMS_ITS | Encounter Summary ---
Author Organization [facility] Address [address] [place] [address] Care Team Providers Care Laboratory Supervisor Name Role Phone Roshan Jimenez DO Primary Care Provider Unav ailable Encounter Details Date Type Department Care Team (Latest Contact Info) Description 05/29/2001 Outpatient [facility] [address] [place] [address] Roshan Jimenez DO NO ADDRESS ON FILE Unspecified essential hypertension (Primary Dx); Depressive disorder, not elsewhere classified; Chronic airway obstruction, not elsewhere classified (CMS/HCC) Social History Tobacco Use Types Packs/Day Years Used Date Smoking Tobacco: Never Assessed Sex and Gender Information Value Date Recorded Sex Assigned at Not on file Legal Sex Male 4:59 AM 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 HYPERBARIC 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
--- OUTSIDE RECORDS SUMMARY | 2025-06-08 00:24 | XMS_ITS | Encounter Summary ---
Author Organization [facility] Address [address] [place] [address] Care Team Providers Care Grocery Clerk Checking Name Role Phone Roshan Jimenez DO Primary [...] on file Legal Sex Male 4:59 AM SEXUAL ASSAULT COUNSELOR Gender Identity Not on file Sexual Orientation Not on file documented as of this encounter Plan of Treatment Not on file documented as of this encounter Visit Diagnoses Diagnosis Other chest pain- Primary documented in this encounter Care Teams Grocery Clerk Checking Relationship Specialty Start Date End Date Roshan Jimenez DO NO ADDRESS ON FILE PCP - General 03/26/03 documented as of this encounter
--- OUTSIDE RECORDS SUMMARY | 2025-06-08 00:24 | XMS_ITS | Encounter Summary ---
Author Organization [employer] Address [address] [facility] Attn: [place] [address] Care Team Providers Care Dynamotor Repairer Name Role Phone Roshan Jimenez DO Primary Care Provider Unav ailable Encounter Details Date Type Department Care Team (Latest Contact Info) Description 12/06/2000 Emergency Jose Galarza DO [address] [place] [address] Social History Tobacco Use Types Packs/Day Years Used Date Smoking Tobacco: Never Assessed Sex and Gender Information Value Date Recorded Sex Assigned at Not on file Legal Sex Male 4:59 AM CONCRETE BUSTER OPERATOR Gender Identity Not on file Sexual Orientation Not on file documented as of this encounter Plan of Treatment Not on file documented as of this encounter Visit Diagnoses Not on filedocumented in this encounter Care Teams Dynamotor Repairer Relationship Specialty Start Date End Date Roshan Jimenez DO NO ADDRESS ON FILE PCP - General 03/26/03 documented as of this encounter
--- OUTSIDE RECORDS SUMMARY | 2025-06-08 00:24 | XMS_ITS | Encounter Summary ---
Author Organization [employer] Address [address] [facility] Attn: [place] [address] Care Team Providers Care Health Care / Medical Job Titles Name Role Phone Roshan Jimenez DO Primary Care Provider Unav ailable Encounter Details Date Type Department Care Team (Latest Contact Info) Description 12/11/2000 Emergency Jose Galarza DO [address] [place] [address] Social History Tobacco Use Types Packs/Day Years Used Date Smoking Tobacco: Never Assessed Sex and Gender Information Value Date Recorded Sex Assigned at Not on file Legal Sex Male 4:59 AM DOCK GUARD Gender Identity Not on file Sexual Orientation Not on file documented as of this encounter Plan of Treatment Not on file documented as of this encounter Visit Diagnoses Not on filedocumented in this encounter Care Teams Health Care / Medical Job Titles Relationship Specialty Start Date End Date Roshan Jimenez DO NO ADDRESS ON FILE PCP - General 03/26/03 documented as of this encounter
--- OUTSIDE RECORDS SUMMARY | 2025-06-08 00:24 | XMS_ITS | Encounter Summary ---
Author Organization [facility] Address [address] [place] [address] Care Team Providers Care National Sales Consultant Name Role Phone Roshan Jimenez DO Primary Care Provider Unav ailable Encounter Details Date Type Department Care Team (Latest Contact Info) Description 01/30/2002 Outpatient [facility] [address] [place] [address] Roshan Jimenez DO NO ADDRESS ON FILE CHRONIC AIRWAY OBSTRUCTION NEC ([facility]) (Primary Dx); HYPERTENSION NOS; OTHER UNSPEC SLEEP APNEA; OSTEOARTHROS NOS-UNSPEC Social History Tobacco Use Types Packs/Day Years Used Date Smoking Tobacco: Never Assessed Sex and Gender Information Value Date Recorded Sex Assigned at Not on file Legal Sex Male 4:59 AM BROADBAND ENGINEER Gender Identity Not on file Sexual Orientation Not on file documented as of this encounter Plan of Treatment Not on file documented as of this encounter Visit Diagnoses Diagnosis Chronic airway obstruction, not elsewhere classified ([facility]/HCC)- Primary Chronic airway obstruction, not elsewhere classified Unspecified essential hypertension Unspecified sleep apnea Osteoarthrosis, unspecified whether generalized or localized, unspecified site documented in this encounter Care Teams National Sales Consultant Relationship Specialty Start Date End Date Roshan Jimenez DO NO ADDRESS ON FILE PCP - General 03/26/03 documented as of this encounter
--- OUTSIDE RECORDS SUMMARY | 2025-06-08 00:24 | XMS_ITS | Encounter Summary ---
Author Organization [facility] Address [address] [place] [address] Care Team Providers Care Plow Mechanic Name Role Phone Roshan Jimenez DO Primary Care Provider Unav ailable Encounter Details Date Type Department Care Team (Late st Contact Info) Description 12/23/1999 Outpatient Historical [facility] Social History Tobacco Use Types Packs/Day Years Used Date Smoking Tobacco: Never Assessed Sex and Gender Information Value Date Recorded Sex Assigned at Not on file Legal Sex Male 4:59 AM EXTRUSION MACHINE OPERATOR Gender Identity Not on file Sexual Orientation Not on file documented as of this encounter Plan of Treatment Not on file documented as of this encounter Visit Diagnoses Not on filedocumented in this encounter Care Teams Plow Mechanic Relationship Specialty Start Date End Date Roshan Jimenez DO NO ADDRESS ON FILE PCP - General 03/26/03 documented as of this encounter
--- OUTSIDE RECORDS SUMMARY | 2025-06-08 00:24 | XMS_ITS | Encounter Summary ---
Author Organization [facility] Address [address] [facility] Attn: [place] [address] Care Team Providers Care Blackjack Dealer Name Role Phone Roshan Jimenez DO Primary [...] on file Legal Sex Male 4:59 AM GROCERY CLERK STOCKING Gender Identity Not on file Sexual Orientation Not on file documented as of this encounter Plan of Treatment Not on file documented as of this encounter Visit Diagnoses Not on filedocumented in this encounter Care Teams Blackjack Dealer Relationship Specialty Start Date End Date Roshan Jimenez DO NO ADDRESS ON FILE PCP - General 03/26/03 documented as of this encounter
--- OUTSIDE RECORDS SUMMARY | 2025-06-08 00:24 | XMS_ITS | Encounter Summary ---
Author Organization [facility] Address [address] [place] [address] Care Team Providers Care Home Care And Home Health Aides Teacher Name Role Phone Roshan Jimenez DO Primary Care Provider Unav ailable Encounter Details Date Type Department Care Team (Latest Contact Info) Description 05/17/2000 Outpatient Historical [facility] [address] [place] [phone] Merlin Reilly MD NO ADDRESS ON FILE Hypersomnia with sleep apnea, unspecified (Primary Dx) Social History Tobacco Use Types Packs/Day Years Used Date Smoking Tobacco: Never Assessed Sex and Gender Information Value Date Recorded Sex Assigned at Not on file Legal Sex Male 4:59 AM HTML DEVELOPER Gender Identity Not on file Sexual Orientation Not on file documented as of this encounter Plan of Treatment Not on file documented as of this encounter Visit Diagnoses Diagnosis Hypersomnia with sleep apnea, unspecified- Primary documented in this encounter Care Teams Home Care And Home Health Aides Teacher Relationship Specialty Start Date End Date Roshan Jimenez DO NO ADDRESS ON FILE PCP - General 03/26/03 documented as of this encounter
--- OUTSIDE RECORDS SUMMARY | 2025-06-08 00:24 | XMS_ITS | Encounter Summary ---
Author Organization [facility] Address [address] [place] [address] Care Team Providers Care Robotics Specialist Name Role Phone Roshan Jimenez DO Primary Care Provider Unav ailable Encounter Details Date Type Department Care Team (Latest Contact Info) Description 05/30/2002 Outpatient [facility] [address] [place] [address] Roshan Jimenez DO NO ADDRESS ON FILE CHRONIC AIRWAY OBSTRUCTION NEC ([facility]) (Primary Dx); OBESITY NOS; LUMBAGO; VACCINE FOR INFLUENZA Social History Tobacco Use Types Packs/Day Years Used Date Smoking Tobacco: Never Assessed Sex and Gender Information Value Date Recorded Sex Assigned at Not on file Legal Sex Male 4:59 AM POWDER CUTTING OPERATOR Gender Identity Not on file Sexual Orientation Not on file documented as of this encounter Plan of Treatment Not on file documented as of this encounter Visit Diagnoses Diagnosis Chronic airway obstruction, not elsewhere classified ([facility])- Primary Chronic airway obstruction, not elsewhere classified Obesity, unspecified Lumbago Need vaccination-viral disease Need for prophylactic vaccination and inoculation against other viral diseases documented in this encounter Care Teams Robotics Specialist Relationship Specialty Start Date End Date Roshan Jimenez DO NO ADDRESS ON FILE PCP - General 03/26/03 documented as of this encounter
--- OUTSIDE RECORDS SUMMARY | 2025-06-08 00:24 | XMS_ITS | Encounter Summary ---
Author Organization [facility] Address [address] [place] [address] Care Team Providers Care Seo Expert Name Role Phone Roshan Jimenez DO Primary Care Provider Unav ailable Encounter Details Date Type Department Care Team (Latest Contact Info) Description 01/01/2001 Outpatient [facility] [address] [place] [address] Roshan Jimenez DO NO ADDRESS ON FILE Obstructive chronic bronchitis with exacerbation (CMS/HCC) (Primary Dx); Depressive disorder, not elsewhere classified; Edema; Unspecified essential hypertension Social History Tobacco Use Types Packs/Day Years Used Date Smoking Tobacco: Never Assessed Sex and Gender Information Value Date Recorded Sex Assigned at Not on file Legal Sex Male 4:59 AM CROP PULLER Gender Identity Not on file Sexual Orientation Not on file documented as of this encounter Plan of Treatment Not on file documented as of this encounter Visit Diagnoses Diagnosis Obstructive chronic bronchitis with exacerbation (CMS/HCC)- Primary Obstructive chronic bronchitis with exacerbation Depressive disorder, not elsewhere classified Edema Unspecified essential hypertension documented in this encounter Care Teams Seo Expert Relationship Specialty Start Date End Date Roshan Jimenez DO NO ADDRESS ON FILE PCP - General 03/26/03 documented as of this encounter
--- OUTSIDE RECORDS SUMMARY | 2025-06-08 00:24 | XMS_ITS | Encounter Summary ---
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
--- OUTSIDE RECORDS SUMMARY | 2025-06-08 00:24 | XMS_ITS | Encounter Summary ---
Author Organization [facility] Address [address] [place] [address] Care Team Providers Care Belt Measurer Name Role Phone Roshan Jimenez DO Primary Care Provider Unav ailable Encounter Details Date Type Department Care Team (Latest Contact Info) Description 12/08/2000 Outpatient [facility] [address] [place] [phone] Roshan Jimenez DO NO ADDRESS ON FILE Anxiety state, unspecified (Primary Dx); Depressive disorder, not elsewhere classified; Acute bronchitis; Chronic airway obstruction, not elsewhere classified (CMS/HCC) Social History Tobacco Use Types Packs/Day Years Used Date Smoking Tobacco: Never Assessed Sex and Gender Information Value Date Recorded Sex Assigned at Not on file 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
--- OUTSIDE RECORDS SUMMARY | 2025-06-08 00:24 | XMS_ITS | Encounter Summary ---
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
--- OUTSIDE RECORDS SUMMARY | 2025-06-08 00:24 | XMS_ITS | Encounter Summary ---
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
--- NOTE | 2025-06-08 00:47 | XRR_ITS ---
PROCEDURE INFORMATION: Exam: XR Chest Exam date and time: 06/08/2025 12:48 AM Age: 74 years old Clinical indication: Other: Altered mental status; Prior surgery; Surgery date: 6+ months; Surgery type: Coronary stents; Additional info: AMS TECHNIQUE: Imaging protocol: Radiologic exam of the chest. Views: 1 view. COMPARISON: CT chest con [id number] 06/03/2025 2:19 AM FINDINGS: Lungs: Central and bibasilar predominant interstitial prominence is present. Pleural spaces: Unremarkable. No pleural effusion. No pneumothorax. Heart/Mediastinum: The heart is enlarged. Mediastinal contours are within normal limits. Bones/joints: Unremarkable. XR/XR chest 1V portable [id number] IMPRESSION: 1. Findings suggestive of pulmonary edema in the setting of cardiomegaly. Superimposed infectious/inflammatory etiology is not excluded. 2. Cardiomegaly.
--- NOTE | 2025-06-08 00:48 | ECG_ITS ---
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: : [id number] Requested By: Wniston Boyer Order Number: [id number] Reading MD: OSCAR NORRIS Measurements Intervals Avery Rate: 68 P: 57 PA: 183 QRS: 12 QRSD: 100 T: 80 QT: 406 QTc: 435 Interpretive Statements SINUS RHYTHM WITH FREQUENT VENTRICULAR PREMATURE COMPLEXES LOW QRS VOLTAGE [QRS DEFLECTION < 0.5/1.0 mV IN LIMB/CHEST LEADS] SEPTAL MYOCARDIAL INFARCTION , PROBABLY OLD [40+ ms Q WAVE IN V1/V2] Compared to ECG 06/02/2025 08:57:15 Myocardial infarct finding now present Intraventricular conduction delay no longer present T-wave abnormality no longer present Electronically Signed On 06-08-2025 23:13:22 CDT by OSCAR NORRIS [email or web address]
[2025-06-08 01:43] LABS: Hematocrit 31.7 % (37-53); Hemoglobin 8.70 g/dL (11.27-16.99); Mean Corpuscular HGB Conc 27.4 g/dL (30-55); Mean Corpuscular Hemoglobin 26.0 pg (27-33); Mean Corpuscular Volume 94.9 fl (82-101); Nucleated Red Blood Cells % 0.2 %; Platelet Count 150 10^3/cmm (157-399); Red Blood Count 3.34 10^6/uL (3.85-5.65); White Blood Count 8.73 10^3/uL (3.29-11.43)
[2025-06-08 01:56] LABS: INR 0.99 (0.8-1.2); Prothrombin Time 13.80 SECONDS (12.1-14.9)
[2025-06-08 01:57] LABS: Partial Thromboplastin Time 28.2 SECONDS (23.9-36.7)
[2025-06-08 02:03] LABS: Alanine Aminotransferase 8 U/L (0-41); Albumin Level 2.9 g/dL (3.5-5.2); Alkaline Phosphatase 120 U/L (40-130); Anion Gap 9.7 (5-19); Aspartate Amino Transferase 11 U/L (0-40); Blood Urea Nitrogen 20 mg/dL (8-23); Calcium 7.9 mg/dL (8.5-10.5); Carbon Dioxide 35 mmol/L (22-29); Chloride 102 mmol/L (98-107); Creatinine Clr Calc Pharmacy 85.1518; Globulin 4.0 g/dL (1.3-4.6); Glucose 102 mg/dL (65-115); Lipase 25 U/L (13-60); Osmolality Calculated 299 mOsm/kg (285-295); Potassium 3.7 mmol/L (3.5-5.1); Sodium 143 mmol/L (136-145); Total Protein 6.9 g/dL (6.6-8.7)
[2025-06-08 02:04] LABS: Lactic Sepsis W/Reflex 1.1 mmol/L (0.5-2.2)
[2025-06-08 02:27] LABS: Glucose Urine UA Norm (Normal); Nitrate Urine Negative (Negative); Specific Gravity, Urine 1.015 (1.005-1.030); UA Manual Slide Review YES
[2025-06-08 02:33] LABS: Add Urine Microscopic? YES
--- NOTE | 2025-06-08 03:47 | W.ED.GENADLT ---
HPI - General Adult General: Chief complaint: General Medical Stated complaint: unwell, low bp Time Seen by Provider: 06/08/25 00:32 History of Present Illness: 74-year-old male gentleman sent from the retirement after staff reported blood pressure readings of 60/30s mmHg. Per caregiver (Ms. Mora), retirement staff contacted her due to these concerning vital signs, though EMS reported somewhat higher readings of 80s systolic. The patient was hospitalized recently (approximately 1-2 weeks ago) for blood loss, though the exact etiology is unclear from the managed care provider. Patient denies current vomiting, bloody bowel movements, fever, or pain. He is reportedly at his baseline per retirement staff. Patient is on home oxygen at 4L via nasal cannula. He has an indwelling urinary catheter. EMS attempted to start IV fluids but appears to have been unsuccessful. Related Data Home Medications ?Medication ?Instructions ?Recorded ?Confirmed albuterol sulfate 90 mcg/actuation 2 puff inhalation Q4H PRN 11/02/24 06/02/25 aerosol inhaler Shortness Of Breath Or Wheezing aluminum-mag hydroxide-simethicone 30 ml PO Q2H PRN 11/02/24 06/02/25 400 mg-400 mg-40 mg/5 mL oral susp indigeston/heartburn/gas (Mylanta Maximum Strength) bisacodyl 10 mg rectal suppository 10 mg MA .Q72H PRN Constipation 11/02/24 06/02/25 docusate sodium 100 mg capsule 100 mg PO BID 11/02/24 06/02/25 (Colace) ergocalciferol (vitamin D2) 1,250 50,000 mcg PO Q30D 11/02/24 06/02/25 mcg (50,000 unit) capsule fluticasone fur. 200 mcg-umeclid 1 inh inhalation DAILY 11/02/24 06/02/25 62.5 mcg-vilant 25 mcg inhalat.powder (Trelegy Ellipta) magnesium hydroxide 400 mg/5 mL 30 ml PO DAILY PRN Constipation 11/02/24 06/02/25 oral suspension (Milk of Magnesia) multivitamin 1 tab PO QAM 11/02/24 06/02/25 polyethylene glycol 3350 17 17 g PO DAILY PRN bowel management 11/02/24 06/02/25 gram/dose oral powder (Miralax) sennosides 8.6 mg tablet (senna) 8.6 mg PO DAILY PRN Constipation 11/02/24 06/02/25 acetaminophen 325 mg tablet 650 mg PO Q4H PRN elevated 12/06/24 06/02/25 (Tylenol) temp/pain loperamide 2 mg tablet (Imodium 2 mg PO Q6H PRN Diarrhea 01/28/25 06/02/25 A-D) oxycodone-acetaminophen 10 mg-325 1 tab PO Q6H PRN Pain 01/28/25 06/02/25 mg tablet albuterol sulfate 2.5 mg/3 mL 2.5 mg continuous nebulization 03/05/25 06/02/25 (0.083 %) solution for nebulization .TID PRN Shortness Of Breath clopidogrel 75 mg tablet 75 mg PO DAILY 03/05/25 06/02/25 melatonin 3 mg tablet 6 mg PO BEDTIME PRN Insomnia 03/05/25 06/02/25 nitroglycerin 0.4 mg sublingual See Rx Instructions .Route .COMPLEX 03/05/25 06/02/25 tablet triamcinolone acetonide 0.5 % See Rx Instructions .Route .COMPLEX 03/05/25 06/02/25 topical cream empagliflozin 10 mg tablet 10 mg PO DAILY 04/06/25 06/02/25 (Jardiance) fluoxetine 20 mg capsule 20 mg PO DAILY 04/06/25 06/02/25 gabapentin 300 mg capsule 300 mg PO BID 04/06/25 06/02/25 levothyroxine 50 mcg tablet 50 mcg PO DAILY 04/06/25 06/02/25 potassium chloride 10 mEq 10 meq PO DAILY 04/06/25 06/02/25 tablet,extended release(part/cryst) semaglutide 1 mg/dose (4 mg/3 mL) 1 mg SUBCUT Q7D 05/04/25 06/02/25 subcutaneous pen injector (Ozempic) buspirone 5 mg tablet 5 mg PO BID anxiety 05/14/25 06/02/25 fluoxetine 10 mg tablet 10 mg PO DAILY 05/18/25 06/02/25 pantoprazole 40 mg tablet,delayed See Rx Instructions .Route .COMPLEX 05/18/25 06/02/25 release sucralfate 100 mg/mL oral See Rx Instructions .Route .COMPLEX 05/18/25 06/02/25 suspension Previous Rx's ?Medication ?Instructions ?Recorded aspirin 81 mg tablet,delayed 81 mg PO DAILY 30 days #30 tabs 05/21/25 release atorvastatin 40 mg tablet 40 mg PO QPM 30 days #30 tabs 05/21/25 bumetanide 1 mg tablet 1 mg PO BID #60 tabs 06/04/25 metoprolol tartrate 25 mg tablet 12.5 mg (1/2 x 25 mg) PO 06/04/25 BID@0900,2100 #60 tabs sacubitril 24 mg-valsartan 26 mg 1 tab PO BID #60 tabs 06/04/25 tablet (Entresto) Allergies Allergy/AdvReac Type Severity Reaction Status Date / Time broccoli Allergy ADR-Vomitin Verified 04/24/25 07:51 g PFSH ED PFSH: Medical History (Updated 06/08/25 @ 03:51 by Winston Chacon DO) Positive occult stool blood test Acute upper GI bleeding Chronic anticoagulation Anticoagulation discontinued because of significant GI bleed. IVC filter in place UTI (urinary tract infection) Longstanding persistent atrial fibrillation Pulmonary embolism Dvt femoral (deep venous thrombosis) Bilateral Acute respiratory failure with hypoxia and hypercarbia Anemia Acute on chronic HFrEF (heart failure with reduced ejection fraction) Morbid obesity with BMI of 40.0-44.9, adult NSTEMI (non-ST elevated myocardial infarction) 02/12/2025 Acute on chronic combined systolic and diastolic congestive heart failure CKD (chronic kidney disease) History of deep vein thrombosis DNR (do not resuscitate) senior care resident COPD with acute exacerbation Open wound of right lower leg Open wound of left lower leg Pressure ulcer of right buttock, stage 3 Surgical History (Updated 06/04/25 @ 13:12 by Becky Zabala MD) S/P IVC filter Hx laparoscopic cholecystectomy Hx of left knee surgery History of surgery on extremity left leg and right arm Social History Smoking and tobacco/nicotine status: former use of tobacco/nicotine Quit status (tobacco/nicotine): has quit using Year quit tobacco: 2022 Alcohol intake: former Year of sobriety/quit date alcohol: 2021 Substance/Drug Use: never Additional social history: Patient lives in a retirement he wants DO NOT RESUSCITATE status as discussed with Cole Sheriff MD on 05/14/2025. His sister Bita Jean-Baptiste phone #[phone] is his next of kin. 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 Physical Exam Const: COMMON NORMALS: no acute distress and alert ORIENTATION/CONSCIOUSNESS: Yes oriented to person and Yes oriented to place; not oriented to time Eye: COMMON NORMALS: Equal, round and reactive pupils present and EOMs intact bilaterally PUPIL: Yes Equal, round and reactive pupils present Chest: CHEST: Yes Symmetrical chest wall rise Resp: COMMON NORMALS: normal respiratory effort Cardio: RATE: bradycardic Neuro: COMMON NORMALS: no focal motor deficits SENSORIUM/ORIENTATION: Yes alert, Yes oriented to person, Yes oriented to place and No oriented to time Course Vital Signs: Vital signs: Vital Signs Temperature 98.4 F 06/08/25 00:13 Pulse Rate 48 L 06/08/25 03:00 Respiratory Rate 16 06/08/25 03:00 Blood Pressure 123/64 06/08/25 03:00 Pulse Oximetry 93 06/08/25 03:00 Oxygen Delivery Me thod Nasal Cannula 06/08/25 00:13 Oxygen Flow Rate 4 06/08/25 00:13 MDM - General Adult Medical Decision Making The patient is significantly bradycardic at times. He however has maintained a good blood pressure here. Pressures have been 100s over 60s. He is arousable, answers simple questions appropriately. CBC shows a hemoglobin of 8.7 which is an improvement from prior. Platelet count 150. BMP is normal. CRP is 20. Indwelling Robertson catheter urinalysis shows whites and reds but only trace bacteria. Lactic acid is 1.1. He is afebrile. EKG shows a sinus bradycardia with frequent PVCs. He is stable for discharge currently. Lab Data 06/08/25 01:36 06/08/25 01:36 Radiology Impressions Chest X-Ray 06/08/25 00:47 IMPRESSION: 1. Findings suggestive of pulmonary edema in the setting of cardiomegaly. Superimposed infectious/inflammatory etiology is not excluded. 2. Cardiomegaly. Laboratory Results WBC 8.73 10^3/uL (3.29-11.43) 06/08/25 01:36 RBC 3.34 10^6/uL (3.85-5.65) L 06/08/25 01:36 Hgb 8.70 g/dL (11.27-16.99) L 06/08/25 01:36 Hct 31.7 % (37-53) L 06/08/25 01:36 MCV 94.9 fl (82-101) 06/08/25 01:36 MCH 26.0 pg (27-33) L 06/08/25 01:36 MCHC 27.4 g/dL (30-55) L 06/08/25 01:36 RDW 19.9 % (12.1-15.1) H 06/08/25 01:36 Plt Count 150 10^3/cmm (157-399) L 06/08/25 01:36 MPV 9.9 fL (7.4-10.4) 06/08/25 01:36 Neut % (Auto) 74.8 % 06/08/25 01:36 Lymph % (Auto) 12.1 % 06/08/25 01:36 Alexander % (Auto) 8.2 % 06/08/25 01:36 Eos % (Auto) 4.2 % 06/08/25 01:36 Baso % (Auto) 0.5 % 06/08/25 01:36 Neut # (Auto) 6.52 10^3/uL (1.8-7.7) 06/08/25 01:36 Lymph # (Auto) 1.1 10^3/uL (0.8-4.8) 06/08/25 01:36 Alexander # (Auto) 0.7 10^3/uL (0.2-0.9) 06/08/25 01:36 Eos # (Auto) 0.4 10^3/uL (0.0-0.8) 06/08/25 01:36 Baso # (Auto) 0.0 10^3/uL (0.0-0.1) 06/08/25 01:36 Nucleated RBC % (auto) 0.2 % 06/08/25 01:36 Nucleated RBCs # 0.0 /100WBC 06/08/25 01:36 PT 13.80 SECONDS (12.1-14.9) 06/08/25 01:36 INR 0.99 (0.8-1.2) 06/08/25 01:36 APTT 28.2 SECONDS (23.9-36.7) 06/08/25 01:36 Sodium 143 mmol/L (136-145) 06/08/25 01:36 Potassium 3.7 mmol/L (3.5-5.1) 06/08/25 01:36 Chloride 102 mmol/L (98-107) 06/08/25 01:36 Carbon Dioxide 35 mmol/L (22-29) H 06/08/25 01:36 Anion Gap 9.7 (5-19) 06/08/25 01:36 BUN 20 mg/dL (8-23) 06/08/25 01:36 Creatinine 1.1 mg/dL (0.7-1.2) 06/08/25 01:36 GFR Calculation Not Reportable 06/08/25 01:36 Glucose 102 mg/dL (65-115) 06/08/25 01:36 Calculated Osmolality 299 mOsm/kg (285-295) H 06/08/25 01:36 Lactic Acid 1.1 mmol/L (0.5-2.2) 06/08/25 01:36 Calcium 7.9 mg/dL (8.5-10.5) L 06/08/25 01:36 Total Bilirubin 0.2 mg/dL (0.15-1.2) 06/08/25 01:36 AST 11 U/L (0-40) 06/08/25 01:36 ALT 8 U/L (0-41) 06/08/25 01:36 Alkaline Phosphatase 120 U/L (40-130) 06/08/25 01:36 C-Reactive Protein 20.3 mg/L (0.0-4.9) H 06/08/25 01:36 Total Protein 6.9 g/dL (6.6-8.7) 06/08/25 01:36 Albumin 2.9 g/dL (3.5-5.2) L 06/08/25 01:36 Globulin 4.0 g/dL (1.3-4.6) 06/08/25 01:36 Lipase 25 U/L (13-60) 06/08/25 01:36 Urine Color Yellow (Yellow) 06/08/25 02:07 Urine Appearance Cloudy (CLEAR) A 06/08/25 02:07 Urine pH 5 (5-7) 06/08/25 02:07 Ur Specific [place] 1.015 (1.005-1.030) 06/08/25 02:07 Urine Protein 1+ (Negative) H 06/08/25 02:07 Urine Glucose (UA) Norm (Normal) 06/08/25 02:07 Urine Ketones 1+ (Negative) H 06/08/25 02:07 Urine Blood 3+ (Negative) H 06/08/25 02:07 Urine Nitrate Negative (Negative) 06/08/25 02:07 Urine Bilirubin 1+ (Negative) H 06/08/25 02:07 Urine Urobilinogen 1 mg/dL (Negative) H 06/08/25 02:07 Ur Leukocyte Esterase 2+ (Negative) H 06/08/25 02:07 Urine RBC 21-50 /hpf (0-2) H 06/08/25 02:07 Urine WBC 51-100 /hpf (0-5) H 06/08/25 02:07 Ur Squamous Epith Cells 3-5 /hpf (0-5) 06/08/25 02:07 Ur Transition Epith Cell 0-4 /hpf 06/08/25 02:07 Amorphous Sediment Not Reportable 06/08/25 02:07 Urine Bacteria Trace /hpf (NONE) 06/08/25 02:07 Urine Yeast 4+ /hpf H 06/08/25 02:07 Blood Type O Positive 06/08/25 01:36 Rho(D) Type Rh positive 06/08/25 01:36 Antibody Screen Negative 06/08/25 01:36 All radiology interpretation(s) finalized by discharge Discharge Plan Discharge Patient Disposition: Home Clinical Impression: Bradycardia, Transient hypotension Condition: Stable Prescriptions: No Action albuterol sulfate 2.5 mg /3 mL (0.083 %) solution for nebulization 2.5 mg continuous nebulization .TID PRN (Reason: Shortness Of Breath) triamcinolone acetonide 0.5 % cream See Rx Instructions .ROUTE .COMPLEX Rx Instructions: 1 application topically to buttocks every shift for itching/rash. acetaminophen [Tylenol] 325 mg Tablet 650 mg PO Q4H PRN (Reason: elevated temp/pain) melatonin 3 mg Tablet 6 mg PO BEDTIME PRN (Reason: Insomnia) clopidogrel 75 mg tablet 75 mg PO DAILY nitroglycerin 0.4 mg tablet, sublingual See Rx Instructions .ROUTE .COMPLEX Rx Instructions: Give 1 tablet 0.4 sublingual every 5 minutes as needed for chest pain x3 doses if no relief call multivitamin Tablet 1 tab PO QAM sennosides [senna] 8.6 mg Tablet 8.6 mg PO DAILY PRN (Reason: Constipation) magnesium hydroxide [Milk of Magnesia] 400 mg/5 mL Suspension 30 ml PO DAILY PRN (Reason: Constipation) bisacodyl 10 mg Suppository 10 mg MA .Q72H PRN (Reason: Constipation) docusate sodium [Colace] 100 mg Capsule 100 mg PO BID ergocalciferol (vitamin D2) 1,250 mcg (50,000 unit) capsule 50,000 mcg PO Q30D polyethylene glycol 3350 [Miralax] 17 gram/dose Powder 17 g PO DAILY PRN (Reason: bowel management) albuterol sulfate 90 mcg/actuation HFA aerosol inhaler 2 puff INHALATION Q4H PRN (Reason: Shortness Of Breath Or Wheezing) alum-mag hydroxide-simeth [Mylanta Maximum Strength] 400-400-40 mg/5 mL Suspension 30 ml PO Q2H PRN (Reason: indigeston/heartburn/gas) Trelegy Ellipta 200-62.5-25 mcg blister with device 1 inh INHALATION DAILY loperamide [Imodium A-D] 2 mg Tablet 2 mg PO Q6H PRN (Reason: Diarrhea) oxycodone-acetaminophen 10-325 mg tablet 1 tab PO Q6H PRN (Reason: Pain) gabapentin 300 mg capsule 300 mg PO BID levothyroxine 50 mcg tablet 50 mcg PO DAILY fluoxetine 20 mg capsule 20 mg PO DAILY Rx Instructions: along with 10mg to=30mg total potassium chloride 10 mEq tablet,ER particles/crystals 10 meq PO DAILY Jardiance 10 mg tablet 10 mg PO DAILY Ozempic 1 mg/dose (4 mg/3 mL) pen injector 1 mg SUBCUT Q7D Rx Instructions: buspirone 5 mg tablet 5 mg PO BID fluoxetine 10 mg tablet 10 mg PO DAILY Rx Instructions: along with 20mg to=30mg total sucralfate 100 mg/mL suspension See Rx Instructions .ROUTE .COMPLEX Rx Instructions: Give 10 ml by mouth before meals and at bedtime. pantoprazole 40 mg tablet,delayed release (DR/EC) See Rx Instructions .ROUTE .COMPLEX Rx Instructions: Take 1 tablet by mouth twice daily for 6 weeks to end on 06/26/25, then start 1 tablet daily, thereafter. aspirin 81 mg Tablet,Delayed Release (Dr/Ec) 81 mg PO DAILY 30 Days Qty: 30 0RF atorvastatin 40 mg tablet 40 mg PO QPM 30 Days Qty: 30 0RF bumetanide 1 mg Tablet 1 mg PO BID Qty: 60 0RF metoprolol tartrate 25 mg Tablet 12.5 mg PO BID@0900,2100 Qty: 60 0RF sacubitril-valsartan [Entresto] 24-26 mg Tablet 1 tab PO BID Qty: 60 0RF Discharge Orders: Discharge ED (Routine); Ordered 06/08/25 Ordered By: Winston Chacon Referrals: Otilio Huang [Primary Care Provider, Internal Medicine] - 1-3 days Patient Instructions: Bradycardia (ED), Opioid Safety, Pain Management, Patient Portal & Diana Instructions Activity Restrictions/Additional Instructions: Check blood pressures twice daily for the next 3 days. Return for worsening mental status or lethargy, chest discomfort, fever, any other concerning symptoms. Follow-up with your doctor this coming week. 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
--- NOTE | 2025-06-08 04:21 | PC.NURSE ---
Report called to [facility], [facility]
== END 2025-06-08 09:10 | disposition home or self-care (01) ==
PROVIDERS: Emergency Provider Emergency Medicine; PCP Student in an Organized Health Care Education/Training Program
DX: R00.1 Bradycardia, unspecified (principal); I95.89 Other hypotension; Z79.82 Long term (current) use of aspirin; Z79.02 Long term (current) use of antithrombotics/antiplatelets; Z87.891 Personal history of nicotine dependence; J44.9 Chronic obstructive pulmonary disease, unspecified; N18.9 Chronic kidney disease, unspecified
CPT/HCPCS: 36415; 71045; 80053; 81001; 83605; 83690; 85025; 85610; 85730; 86140; 86850; 86900; 87040; 87086; 87106; 93005; 99285; J7030

== ENCOUNTER 2025-06-18 11:37 | Inpatient (IN) | payer MEDICARE, MEDICAID, SELFPAY ==
[2025-06-18] VITALS (13 sets, daily range): BP systolic 107–161; BP diastolic 56–82; PULSE 89–106; RESP 18–34; TEMP 36.6; O2SAT 87–98; BMI 43.0; BMI 43.6
--- NOTE | 2025-06-18 11:38 | ECG_ITS ---
[employer] [facility] Test Date: 2025-06-18 Pat Name: Edson Jaffe Department: Room: Gender: Male Mapper: : [id number] Requested By: Ty Olivo Order Number: [id number] Richar MD: Michelle Sandhu M.D. Measurements Intervals [place] Rate: 100 P: 67 UT: 178 QRS: -5 QRSD: 103 T: 129 QT: 338 QTc: 436 Interpretive Statements SINUS TACHYCARDIA WITH FREQUENT VENTRICULAR PREMATURE COMPLEXES LOW QRS VOLTAGE [QRS DEFLECTION < 0.5/1.0 mV IN LIMB/CHEST LEADS] POSSIBLE INFERIOR MYOCARDIAL INFARCTION , PROBABLY OLD [30 ms Q WAVE IN II/aVF] ANTEROSEPTAL MYOCARDIAL INFARCTION , OF INDETERMINATE AGE [40+ ms Q WAVE IN V1-V4] Compared to ECG 06/08/2025 01:46:28 Sinus rhythm no longer present Myocardial infarct finding still present Electronically Signed On 06-18-2025 16:54:38 CDT by Michelle Sandhu M.D. [email or web address]
--- NOTE | 2025-06-18 11:41 | XRR_ITS ---
PROCEDURE INFORMATION: Exam: XR Chest Exam date and time: 06/18/2025 12:21 PM Age: 74 years old Clinical indication: Shortness of breath; Additional info: SOB TECHNIQUE: Imaging protocol: Radiologic exam of the chest. Views: 1 view. COMPARISON: CR (CHEST, ) 06/08/2025 12:48 AM FINDINGS: Lungs: There is increasing multifocal patchy consolidative alveolar opacities throughout the lungs with bibasilar predominance [id number]-[id number]-[id number]-left. There is now volume loss of the right hemithorax concerning for component of more prominent atelectasis. Pleural spaces: Small bilateral pleural effusions are likely present. Heart/Mediastinum: There is slight deviation of the cardiomediastinal silhouette to the right. There remains cardiomegaly. Bones/joints: Unremarkable. XR/XR chest 1V portable [id number] IMPRESSION: 1. Worsening pattern of multifocal, multilobar pneumonia. 2. Volume loss of the right hemithorax suggesting atelectasis. Consider mucous impaction. This could be better correlated with CT. 3. Probable small bilateral pleural effusions 4. Cardiomegaly
--- NOTE | 2025-06-18 11:51 | W.ED.SOB ---
HPI - SOB/Dyspnea General: Chief Complaint: Shortness of Breath/Dyspnea Stated Complaint: Resp Dist. Time Seen by Provider: 06/18/25 11:38 Source: EMS Mode of arrival: EMS Limitations: altered mental status History of Present Illness: HPI Narrative: 74-year-old male has multiple medical issues including COPD CHF here from halfway in respiratory distress. Patient here is tachypnea and is in distress patient's minimally responsive only respond to painful stimuli but not able to give any history. Per EMS patient has a DNR/DNI and family has been discussing possible hospice. No known fever he did have a recent admission here. Related Data Home Medications ?Medication ?Instructions ?Recorded ?Confirmed albuterol sulfate 90 mcg/actuation 2 puff inhalation Q4H PRN 11/02/24 06/02/25 aerosol inhaler Shortness Of Breath Or Wheezing aluminum-mag hydroxide-simethicone 30 ml PO Q2H PRN 11/02/24 06/02/25 400 mg-400 mg-40 mg/5 mL oral susp indigeston/heartburn/gas (Mylanta Maximum Strength) bisacodyl 10 mg rectal suppository 10 mg MD .Q72H PRN Constipation 11/02/24 06/02/25 docusate sodium 100 mg capsule 100 mg PO BID 11/02/24 06/02/25 (Colace) ergocalciferol (vitamin D2) 1,250 50,000 mcg PO Q30D 11/02/24 06/02/25 mcg (50,000 unit) capsule fluticasone fur. 200 mcg-umeclid 1 inh inhalation DAILY 11/02/24 06/18/25 62.5 mcg-vilant 25 mcg inhalat.powder (Trelegy Ellipta) magnesium hydroxide 400 mg/5 mL 30 ml PO DAILY PRN Constipation 11/02/24 06/02/25 oral suspension (Milk of Magnesia) multivitamin 1 tab PO QAM 11/02/24 06/18/25 polyethylene glycol 3350 17 17 g PO DAILY PRN bowel management 11/02/24 06/02/25 gram/dose oral powder (Miralax) sennosides 8.6 mg tablet (senna) 8.6 mg PO DAILY PRN Constipation 11/02/24 06/02/25 acetaminophen 325 mg tablet 650 mg PO Q4H PRN elevated 12/06/24 06/02/25 (Tylenol) temp/pain loperamide 2 mg tablet (Imodium 2 mg PO Q6H PRN Diarrhea 01/28/25 06/02/25 A-D) oxycodone-acetaminophen 10 mg-325 1 tab PO Q6H PRN Pain 01/28/25 06/02/25 mg tablet albuterol sulfate 2.5 mg/3 mL 2.5 mg continuous nebulization 03/05/25 06/02/25 (0.083 %) solution for nebulization .TID PRN Shortness Of Breath clopidogrel 75 mg tablet 75 mg PO DAILY 03/05/25 06/02/25 melatonin 3 mg tablet 6 mg PO BEDTIME PRN Insomnia 03/05/25 06/02/25 nitroglycerin 0.4 mg sublingual See Rx Instructions .Route .COMPLEX 03/05/25 06/02/25 tablet triamcinolone acetonide 0.5 % See Rx Instructions .Route .COMPLEX 03/05/25 06/02/25 topical cream empagliflozin 10 mg tablet 10 mg PO DAILY 04/06/25 06/02/25 (Jardiance) fluoxetine 20 mg capsule 20 mg PO DAILY 04/06/25 06/02/25 gabapentin 300 mg capsule 300 mg PO BID 04/06/25 06/02/25 levothyroxine 50 mcg tablet 50 mcg PO DAILY 04/06/25 06/18/25 potassium chloride 10 mEq 10 meq PO DAILY 04/06/25 06/18/25 tablet,extended release(part/cryst) semaglutide 1 mg/dose (4 mg/3 mL) 1 mg SUBCUT Q7D 05/04/25 06/02/25 subcutaneous pen injector (Ozempic) buspirone 5 mg tablet 5 mg PO BID anxiety 05/14/25 06/02/25 fluoxetine 10 mg tablet 10 mg PO DAILY 05/18/25 06/02/25 pantoprazole 40 mg tablet,delayed See Rx Instructions .Route .COMPLEX 05/18/25 06/18/25 release sucralfate 100 mg/mL oral 10 ml PO .AC&HS 05/18/25 06/18/25 suspension Previous Rx's ?Medication ?Instructions ?Recorded aspirin 81 mg tablet,delayed 81 mg PO DAILY 30 days #30 tabs 09/24/25 release atorvastatin 40 mg tablet 40 mg PO QPM 30 days #30 tabs 05/21/25 bumetanide 1 mg tablet 1 mg PO BID #60 tabs 06/04/25 metoprolol tartrate 25 mg tablet 12.5 mg (1/2 x 25 mg) PO 06/04/25 BID@0900,2100 #60 tabs sacubitril 24 mg-valsartan 26 mg 1 tab PO BID #60 tabs 06/04/25 tablet (Entresto) Allergies Allergy/AdvReac Type Severity Reaction Status Date / Time broccoli Allergy ADR-Vomitin Verified 04/24/25 07:51 g Review of Systems General: Reports: ROS unobtainable due to mental status PFSH ED PFSH: Medical History (Updated 06/18/25 @ 13:12 by Ty Olivo MD) Positive occult stool blood test Acute upper GI bleeding Chronic anticoagulation Anticoagulation discontinued because of significant GI bleed. IVC filter in place UTI (urinary tract infection) Longstanding persistent atrial fibrillation Pulmonary embolism Dvt femoral (deep venous thrombosis) Bilateral Acute respiratory failure with hypoxia and hypercarbia Anemia Acute on chronic HFrEF (heart failure with reduced ejection fraction) Morbid obesity with BMI of 40.0-44.9, adult NSTEMI (non-ST elevated myocardial infarction) 02/12/2025 Acute on chronic combined systolic and diastolic congestive heart failure CKD (chronic kidney disease) History of deep vein thrombosis DNR (do not resuscitate) shelter resident COPD with acute exacerbation Open wound of right lower leg Open wound of left lower leg Pressure ulcer of right buttock, stage 3 Surgical History (Updated 06/04/25 @ 13:12 by Becky Zabala MD) S/P IVC filter Hx laparoscopic cholecystectomy Hx of left knee surgery History of surgery on extremity left leg and right arm Social History Smoking and tobacco/nicotine status: former use of tobacco/nicotine Quit status (tobacco/nicotine): has quit using Year quit tobacco: 2022 Alcohol intake: former Year of sobriety/quit date alcohol: 2021 Substance/Drug Use: never Additional social history: Patient lives in a halfway he wants DO NOT RESUSCITATE status as discussed with Cole Sheriff MD on 05/14/2025. His sister Bita Jean-Baptiste phone #[phone] is his next of kin. 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 Differential included pneumonia, CHF exacerbation, COPD exacerbation, pulm emboli. Patient here has no signs of acute pulm emboli patient is in respiratory distress with hypoxia and hypercapnia on his ABG. Did place patient on BiPAP his repeat ABG is showing improvement. Did interpret his chest x-ray that shows congestive heart failure with a possible right sided pneumonia. Did start him on IV antibiotics as well along with Lasix did give him a 250 mL bolus for possible sepsis but did not give full sepsis bolus to his CHF and would cause more harm. Did interpret his EKG that showed sinus tach heart rate [address] elevation QRS 103 QTc 395. I have spoke to patient's family he is a DNR they do not want him intubated as well. I did go over all his results with family as well and that we will admit him. I spoke to Dr. Fraser hospitalist and will admit at this time. Medical Records I reviewed the patient's medical records. Lab Data I reviewed the patient's lab results. 06/18/25 11:36 06/18/25 11:36 Labs/Radiology: Radiology Impressions Chest X-Ray 06/18/25 11:41 IMPRESSION: 1. Worsening pattern of multifocal, multilobar pneumonia. 2. Volume loss of the right hemithorax suggesting atelectasis. Consider mucous impaction. This could be better correlated with CT. 3. Probable small bilateral pleural effusions 4. Cardiomegaly Laboratory Results WBC 12.39 10^3/uL (3.29-11.43) H 06/18/25 11:36 RBC 3.56 10^6/uL (3.85-5.65) L 06/18/25 11:36 Hgb 9.30 g/dL (11.27-16.99) L 06/18/25 11:36 Hct 35.0 % (37-53) L 06/18/25 11:36 MCV 98.3 fl (82-101) 06/18/25 11:36 MCH 26.1 pg (27-33) L 06/18/25 11:36 MCHC 26.6 g/dL (30-55) L 06/18/25 11:36 RDW 20.1 % (12.1-15.1) H 06/18/25 11:36 Plt Count 400 10^3/cmm (157-399) H 06/18/25 11:36 MPV 10.3 fL (7.4-10.4) 06/18/25 11:36 Neut % (Auto) 82.3 % 06/18/25 11:36 Lymph % (Auto) 5.2 % 06/18/25 11:36 [place] % (Auto) 10.4 % 06/18/25 11:36 Eos % (Auto) 0.1 % 06/18/25 11:36 Baso % (Auto) 0.4 % 06/18/25 11:36 Neut # (Auto) 10.20 10^3/uL (1.8-7.7) H 06/18/25 11:36 Lymph # (Auto) 0.6 10^3/uL (0.8-4.8) L 06/18/25 11:36 [place] # (Auto) 1.3 10^3/uL (0.2-0.9) H 06/18/25 11:36 Eos # (Auto) 0.0 10^3/uL (0.0-0.8) 06/18/25 11:36 Baso # (Auto) 0.1 10^3/uL (0.0-0.1) 06/18/25 11:36 Nucleated RBC % (auto) 0.4 % 06/18/25 11:36 Nucleated RBCs # 0.1 /100WBC 06/18/25 11:36 Specimen Type Arterial 06/18/25 12:50 Sample Site Radial, right 06/18/25 12:50 ABG pH 7.27 (7.35-7.45) L 06/18/25 12:50 ABG pCO2 101.0 mmHg (35-45) H* 06/18/25 12:50 ABG pO2 53.7 mmHg (80.0-100.0) L 06/18/25 12:50 ABG PO2/FiO2 Ratio 53 06/18/25 12:50 ABG HCO3 46.2 mmol/L (22-26) H 06/18/25 12:50 ABG O2 Saturation 84.8 06/18/25 12:50 ABG Base Excess 16.3 mmol/L (-2.0-2.0) H 06/18/25 12:50 Ivan Test Pos 06/18/25 12:50 A-a O2 Gradient 71.4 mmHg (5-10) H 06/18/25 12:50 Hematocrit 28.0 % (42-52) L 06/18/25 12:50 Hgb O2 Saturation 82.6 % (95-100) L 06/18/25 12:50 Carboxyhemoglobin 1.8 %THgb (0.4-20.1) 06/18/25 12:50 Methemoglobin 0.8 % (0.4-1.5) 06/18/25 12:50 Total Hemoglobin 9.1 g/dL (14-18) L 06/18/25 12:50 Sodium 147.0 mmol/L (131-143) H 06/18/25 12:50 Potassium 4.5 mmol/L (3.5-5.0) 06/18/25 12:50 Glucose 138.0 mg/dL (70-115) H 06/18/25 12:50 Ionized Calcium 1.2 mmol/L (1.1-1.4) 06/18/25 12:50 O2 Delivery Device Bipap 06/18/25 12:50 FiO2 100.0 % 06/18/25 12:50 PEEP 10.0 cmH20 06/18/25 12:50 Design Drafter Chief ID Amh 06/18/25 12:50 Sodium 146 mmol/L (136-145) H 06/18/25 11:36 Potassium 4.8 mmol/L (3.5-5.1) 06/18/25 11:36 Chloride 100 mmol/L (98-107) 06/18/25 11:36 Carbon Dioxide 40 mmol/L (22-29) H 06/18/25 11:36 Anion Gap 10.8 (5-19) 06/18/25 11:36 BUN 17 mg/dL (8-23) 06/18/25 11:36 Creatinine 0.8 mg/dL (0.7-1.2) 06/18/25 11:36 GFR Calculation Not Reportable 06/18/25 11:36 Glucose 137 mg/dL (65-115) H 06/18/25 11:36 Calculated Osmolality 306 mOsm/kg (285-295) H 06/18/25 11:36 Calcium 8.7 mg/dL (8.5-10.5) 06/18/25 11:36 Total Bilirubin 0.3 mg/dL (0.15-1.2) 06/18/25 11:36 AST 9 U/L (0-40) 06/18/25 11:36 ALT 6 U/L (0-41) 06/18/25 11:36 Alkaline Phosphatase 139 U/L (40-130) H 06/18/25 11:36 NT-Pro-B Natriuret Pep 5627 pg/mL (0-125) H 06/18/25 11:36 Total Protein 8.2 g/dL (6.6-8.7) 06/18/25 11:36 Albumin 3.2 g/dL (3.5-5.2) L 06/18/25 11:36 Globulin 5.0 g/dL (1.3-4.6) H 06/18/25 11:36 All radiology interpretation(s) finalized by discharge EKG Data EKG 1: I personally reviewed and interpreted this EKG as follows: EKG Interpretation Date: 06/18/25 EKG interpretation time: 11:38 Interpretation: sinus tach hr [address] elevation qrs 103 qtc 395 Critical Care Time Critical Care Time: Critical Care Time: Yes Total Critical Care Time: 55 Attestation: The high probability of a clinically significant, sudden or life threatening deterioration of the patient's resp system(s) required my full and direct attention, intervention and personal management. The critical care time is as shown. This time is in addition to time spent performing any reported procedures but includes the following: [x] Data and vital sign review and interpretation [x] Patient assessment, examination and intervention [x] Documentation [x] Medication orders and management Discharge Plan Discharge Patient Disposition: Admitted As Inpatient Clinical Impression: Acute on chronic combined systolic and diastolic congestive heart failure, Pneumonia, Acute on chronic respiratory failure with hypoxia and hypercapnia Condition: Stable Coding Level of Care Code ED Signals Collection Technician for Chana Glass
[2025-06-18] MEDS: methylPREDNISolone sod succ 125 mg/2 mL INJ IVP (12:03)
[2025-06-18 12:05] LABS: ABG PCO2 > 102.0 mmHg (35-45); ABG PH Result 7.21 (7.35-7.45); Alveolar-Arterial Oxygen Gradi 69.6 mmHg (5-10); Arterial Blood Gas Hematocrit 27.5 % (42-52); Blood Gas Allen Test Pos; Blood Gas Operator Identificat AMH; Blood Gas Sample Site Radial, right; Blood Gas Sample Type Arterial; Carboxyhemoglobin 2.0 %THgb (0.4-20.1); Glucose Level-ABG 138.0 mg/dL (70-115); HCO3 ABG 46.1 mmol/L (22-26); Ionized Calcium Level - ABG 1.2 mmol/L (1.1-1.4); Methemoglobin 0.9 % (0.4-1.5); Oxygen Saturation ABG 81.1; PEEP 10.0 cmH20; PO2 ABG 52.3 mmHg (80.0-100.0); PO2 FiO2 Ratio Arterial Blood 52; Potassium Level - ABG 4.6 mmol/L (3.5-5.0); Sodium Level - ABG 147.0 mmol/L (131-143)
[2025-06-18 12:08] LABS: Hematocrit 35.0 % (37-53); Hemoglobin 9.30 g/dL (11.27-16.99); Mean Corpuscular HGB Conc 26.6 g/dL (30-55); Mean Corpuscular Hemoglobin 26.1 pg (27-33); Mean Corpuscular Volume 98.3 fl (82-101); Nucleated Red Blood Cells % 0.4 %; Platelet Count 400 10^3/cmm (157-399); Red Blood Count 3.56 10^6/uL (3.85-5.65); White Blood Count 12.39 10^3/uL (3.29-11.43)
[2025-06-18 12:39] LABS: Alanine Aminotransferase 6 U/L (0-41); Albumin Level 3.2 g/dL (3.5-5.2); Alkaline Phosphatase 139 U/L (40-130); Anion Gap 10.8 (5-19); Aspartate Amino Transferase 9 U/L (0-40); Blood Urea Nitrogen 17 mg/dL (8-23); Calcium 8.7 mg/dL (8.5-10.5); Carbon Dioxide 40 mmol/L (22-29); Chloride 100 mmol/L (98-107); Creatinine Clr Calc Pharmacy 122.8670; Globulin 5.0 g/dL (1.3-4.6); Glucose 137 mg/dL (65-115); NT Pro B Type Natriuretic Pept 5627 pg/mL (0-125); Osmolality Calculated 306 mOsm/kg (285-295); Potassium 4.8 mmol/L (3.5-5.1); Sodium 146 mmol/L (136-145); Total Protein 8.2 g/dL (6.6-8.7)
--- OUTSIDE RECORDS SUMMARY | 2025-06-18 12:59 | XMS_ITS | Encounter Summary ---
Author Organization [facility] [facility] Address [address] [place] [address] Care Team Providers Care Special Procedures Technologist Name Role Phone Roshan Jimenez DO Primary Care Provider Unav ailable Encounter Details Date Type Department Care Team (Latest Contact Info) Description 12/23/1998 Outpatient Historical [facility] Axel Armstrong NO ADDRESS ON FILE Localized osteoarthrosis not specified whether primary or secondary, lower leg (Primary Dx) Social History Tobacco Use Types Packs/Day Years Used Date Smoking Tobacco: Never Assessed Sex and Gender Information Value Date Recorded Sex Assigned at Not on file 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
--- OUTSIDE RECORDS SUMMARY | 2025-06-18 12:59 | XMS_ITS | Encounter Summary ---
Author Organization [facility] Address [address] [place] [address] Care Team Providers Care Internet Marketing Consultant Name Role Phone Roshan Jimenez DO Primary Care Provider Unav ailable Encounter Details Date Type Department Care Team (Latest Contact Info) Description 02/10/2004 Outpatient [facility] [address] [place] [id number] Roshan Jimenez DO NO ADDRESS ON FILE CHRONIC AIRWAY OBSTRUCTION NEC ([facility]) (Primary Dx); HYPERTENSION NOS; OBESITY NOS; OSTEOARTHROS NOS-UNSPEC Social History Tobacco Use Types Packs/Day Years Used Date Smoking Tobacco: Never Assessed Sex and Gender Information Value Date Recorded Sex Assigned at Not on file 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 Gender Identity Not on file Sexual Orientation Not on file documented as of this encounter Plan of Treatment Not on file documented as of this encounter Visit Diagnoses Diagnosis Chronic airway obstruction, not elsewhere classified ([facility])- Primary Chronic airway obstruction, not elsewhere classified Unspecified essential hypertension Obesity, unspecified Osteoarthrosis, unspecified whether generalized or localized, unspecified site documented in this encounter Care Teams Internet Marketing Consultant Relationship Specialty Start Date End Date Roshan Jimenez DO NO ADDRESS ON FILE PCP - General 03/26/03 documented as of this encounter
--- OUTSIDE RECORDS SUMMARY | 2025-06-18 12:59 | XMS_ITS | Encounter Summary ---
Author Organization [facility] Address [address] [place] [address] Care Team Providers Care Collar Worker Name Role Phone Roshan Jimenez DO Primary Care Provider Unav ailable Encounter Details Date Type Department Care Team (Latest Contact Info) Description 09/17/1998 Outpatient [facility] [address] [place] [id number] Roshan Jimenez DO NO ADDRESS ON FILE Unspecified essential hypertension (Primary Dx); Obesity, unspecified; Obstructive chronic bronchitis without exacerbation (CMS/HCC); Reflux esophagitis Social History Tobacco Use Types Packs/Day Years Used Date Smoking Tobacco: Never Assessed Sex and Gender Information Value Date Recorded Sex Assigned at Not on file 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
--- OUTSIDE RECORDS SUMMARY | 2025-06-18 12:59 | XMS_ITS | Encounter Summary ---
Author Organization [facility] Address [address] [place] [address] Care Team Providers Care Senior User Experience Architect Name Role Phone Roshan Jimenez DO Primary Care Provider Unav ailable Encounter Details Date Type Department Care Team (Latest Contact Info) Description 01/22/1999 Outpatient Historical [facility] Podiatry-Stevo Bal [place]int[place] [address] [place] [address] Noé Rosa, DPM [address] [place] [address] Ingrowing nail (Primary Dx) Social History Tobacco Use Types Packs/Day Years Used Date Smoking Tobacco: Never Assessed Sex and Gender Information Value Date Recorded Sex Assigned at Not on file 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
--- OUTSIDE RECORDS SUMMARY | 2025-06-18 12:59 | XMS_ITS | Encounter Summary ---
Author Organization [facility] Address [address] [place] [address] Care Team Providers Care Marketing Outreach Coordinator Name Role Phone Roshan Jimenez DO Primary Care Provider Unav ailable Encounter Details Date Type Department Care Team (Latest Contact Info) Description 12/23/1998 Outpatient Historical [facility] Podiatry-Stevo Bal George [address] [place] [address] Noé Rosa, DPM [address] [place] [address] Ingrowing nail (Primary Dx); Dermatophytosis of nail Social History Tobacco Use Types Packs/Day Years Used Date Smoking Tobacco: Never Assessed Sex and Gender Information Value Date Recorded Sex Assigned at Not on file 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
--- OUTSIDE RECORDS SUMMARY | 2025-06-18 12:59 | XMS_ITS | Encounter Summary ---
Author Organization [facility] Address [address] [place] [address] Care Team Providers Care Speech Language Pathologist Name Role Phone Roshan Jimenez DO Primary Care Provider Unav ailable Encounter Details Date Type Department Care Team (Latest Contact Info) Description 11/27/2002 Outpatient [facility] Podiatry-Stevo Bal [place] [address] [place] [address] Noé Rosa, DPM [address] [place] [address] Onychia of toe (Primary Dx); INGROWING NAIL Social History Tobacco Use Types Packs/Day Years Used Date Smoking Tobacco: Never Assessed Sex and Gender Information Value Date Recorded Sex Assigned at Not on file 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
--- OUTSIDE RECORDS SUMMARY | 2025-06-18 12:59 | XMS_ITS | Encounter Summary ---
Author Organization [facility] Address [address] [place] [address] Care Team Providers Care Box Worker Name Role Phone Roshan Jimenez DO Primary Care Provider Unav ailable Encounter Details Date Type Department Care Team (Latest Contact Info) Description 12/23/1998 Outpatient Historical [facility] [address] [place] [address] Roshan Jimenez DO NO ADDRESS ON FILE Chronic airway obstruction, not elsewhere classified (CMS/HCC) (Primary Dx); Unspecified essential hypertension; Osteoarthrosis, unspecified whether generalized or localized, unspecified site Social History Tobacco Use Types Packs/Day Years Used Date Smoking Tobacco: Never Assessed Sex and Gender Information Value Date Recorded Sex Assigned at Not on file 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 Gender Identity Not on file Sexual Orientation Not on file documented as of this encounter Plan of Treatment Not on file documented as of this encounter Visit Diagnoses Diagnosis Chronic airway obstruction, not elsewhere classified (CMS/HCC)- Primary Chronic airway obstruction, not elsewhere classified Unspecified essential hypertension Osteoarthrosis, unspecified whether generalized or localized, unspecified site documented in this encounter Care Teams Box Worker Relationship Specialty Start Date End Date oRshan Jimenez DO NO ADDRESS ON FILE PCP - General 03/26/03 documented as of this encounter
--- OUTSIDE RECORDS SUMMARY | 2025-06-18 12:59 | XMS_ITS | Encounter Summary ---
Author Organization [facility] Address [address] [place] [address] Care Team Providers Care Private Watchman Name Role Phone Roshan Jimenez DO Primary Care Provider Unav ailable Encounter Details Date Type Department Care Team (Latest Contact Info) Description 03/26/2003 Outpatient Historical [facility] Endoscopy Roby [address] [facility] [address] [place] [address] Demetri Chávez MD [address] [facility] [address] [place] [address] SCREENING MAL NEOP-COLON (Primary Dx) Social History Tobacco Use Types Packs/Day Years Used Date Smoking Tobacco: Never Assessed Sex and Gender Information Value Date Recorded Sex Assigned at Not on file 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
--- OUTSIDE RECORDS SUMMARY | 2025-06-18 12:59 | XMS_ITS | Encounter Summary ---
Author Organization [facility] Address [address] [place] [address] Care Team Providers Care Pet Handler Name Role Phone Roshan Jimenez DO Primary Care Provider Unav ailable Encounter Details Date Type Department Care Team (Latest Contact Info) Description 01/08/1999 Outpatient Historical [facility] Podiatry-Stevo Bal Johnson [address] [place] [address] Noé Rosa, DPM [address] [place] [address] Ingrowing nail (Primary Dx) Social History Tobacco Use Types Packs/Day Years Used Date Smoking Tobacco: Never Assessed Sex and Gender Information Value Date Recorded Sex Assigned at Not on file 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
--- OUTSIDE RECORDS SUMMARY | 2025-06-18 12:59 | XMS_ITS | Encounter Summary ---
Author Organization [facility] Address [address] [place] [address] Care Team Providers Care Molding Press Operator Name Role Phone Roshan Jimenez DO Primary Care Provider Unav ailable Encounter Details Date Type Department Care Team (Latest Contact Info) Description 03/26/2003 Outpatient Historical [facility] [place] [address] [address] Demetri Chávez MD [address] [facility] [address] [place] [address] SCREENING MAL NEOP-COLON (Primary Dx) Social History Tobacco Use Types Packs/Day Years Used Date Smoking Tobacco: Never Assessed Sex and Gender Information Value Date Recorded Sex Assigned at Not on file 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
--- OUTSIDE RECORDS SUMMARY | 2025-06-18 12:59 | XMS_ITS | Encounter Summary ---
Author Organization [employer] [facility] Address [address] [place] [address] Care Team Providers Care Leather Softener Name Role Phone Roshan Jimenez DO Primary Care Provider Unav ailable Encounter Details Date Type Department Care Team (Latest Contact Info) Description 06/24/1998 Outpatient Historical [facility] Axel Armstrong NO ADDRESS ON FILE Localized osteoarthrosis not specified whether primary or secondary, lower leg (Primary Dx) Social History Tobacco Use Types Packs/Day Years Used Date Smoking Tobacco: Never Assessed Sex and Gender Information Value Date Recorded Sex Assigned at Not on file Legal Sex Male 4:59 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
--- OUTSIDE RECORDS SUMMARY | 2025-06-18 12:59 | XMS_ITS | Encounter Summary ---
Author Organization [facility] Address [address] [place] [address] Care Team Providers Care Headhunter Name Role Phone Roshan Jimenez DO Primary Care Provider Unav ailable Encounter Details Date Type Department Care Team (Latest Contact Info) Description 11/25/2003 Outpatient Historical [facility] [place] [address] [place] [address] Noé Rosa, DPM [address] [place] [address] Onychia of toe (Primary Dx); INGROWING NAIL Social History Tobacco Use Types Packs/Day Years Used Date Smoking Tobacco: Never Assessed Sex and Gender Information Value Date Recorded Sex Assigned at Not on file Legal Sex Male 4:59 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
--- OUTSIDE RECORDS SUMMARY | 2025-06-18 12:59 | XMS_ITS | Encounter Summary ---
Author Organization [facility] Address [address] [place] [address] Care Team Providers Care Instructional Services Specialist Name Role Phone Roshan Jimenez DO Primary Care Provider Unav ailable Encounter Details Date Type Department Care Team (Latest Contact Info) Description 02/04/2003 Outpatient [facility] [place] [address] [place] [address] Roshan Jimenez DO NO ADDRESS ON FILE HYPERTENSION NOS (Primary Dx); OBESITY NOS; CHRONIC AIRWAY OBSTRUCTION NEC (CMS/[facility]); OSTEOARTHROS NOS-UNSPEC Social History Tobacco Use Types Packs/Day Years Used Date Smoking Tobacco: Never Assessed Sex and Gender Information Value Date Recorded Sex Assigned at Not on file 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 Sex Male 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 Gender Identity Not on file Sexual Orientation Not on file documented as of this encounter Plan of Treatment Not on file documented as of this encounter Visit Diagnoses Diagnosis Unspecified essential hypertension- Primary Obesity, unspecified Chronic airway obstruction, not elsewhere classified (CMS/HCC) Chronic airway obstruction, not elsewhere classified Osteoarthrosis, unspecified whether generalized or localized, unspecified site documented in this encounter Care Teams Instructional Services Specialist Relationship Specialty Start Date End Date Roshan Jimenez DO NO ADDRESS ON FILE PCP - General 03/26/03 documented as of this encounter
--- OUTSIDE RECORDS SUMMARY | 2025-06-18 12:59 | XMS_ITS | Encounter Summary ---
Author Organization [facility] Address [address] [place] [address] Care Team Providers Care Geophysical Prospecting Surveyor Name Role Phone Roshan Jimenez DO Primary Care Provider Unav ailable Encounter Details Date Type Department Care Team (Latest Contact Info) Description 08/05/2003 Outpatient [facility] [place] [address] Roshan Jimenez DO NO ADDRESS ON FILE HYPERTENSION NOS (Primary Dx); CHRONIC AIRWAY OBSTRUCTION NEC (CMS/HCC); UNSPECIFIED VIRAL INFECTION Social History Tobacco Use Types Packs/Day Years Used Date Smoking Tobacco: Never Assessed Sex and Gender Information Value Date Recorded Sex Assigned at Not on file Legal Sex Male 4:59 AM DISEASE CASE MANAGER RN Gender Identity Not on file Sexual Orientation Not on file documented as of this encounter Plan of Treatment Not on file documented as of this encounter Visit Diagnoses Diagnosis Unspecified essential hypertension- Primary Chronic airway obstruction, not elsewhere classified (CMS/HCC) Chronic airway obstruction, not elsewhere classified Unspecified viral infection, in conditions classified elsewhere and of unspecified site documented in this encounter Care Teams Geophysical Prospecting Surveyor Relationship Specialty Start Date End Date Roshan Jimenez DO NO ADDRESS ON FILE PCP - General 03/26/03 documented as of this encounter
--- OUTSIDE RECORDS SUMMARY | 2025-06-18 12:59 | XMS_ITS | Encounter Summary ---
Author Organization [facility] Address [address] [place] [address] Care Team Providers Care Road Train Driver Name Role Phone Roshan Jimenez DO Primary Care Provider Unav ailable Encounter Details Date Type Department Care Team (Latest Contact Info) Description 11/11/2003 Outpatient [facility] Podiatry-Stevo Bal [place] [address] [place] [address] Noé Rosa, DPM [address] [place] [address] Onychia of toe (Primary Dx); INGROWING NAIL Social History Tobacco Use Types Packs/Day Years Used Date Smoking Tobacco: Never Assessed Sex and Gender Information Value Date Recorded Sex Assigned at Not on file Legal Sex Male 4:59 AM WEB DEVELOPMENT DIRECTOR Gender Identity Not on file Sexual Orientation Not on file documented as of this encounter Plan of Treatment Not on file documented as of this encounter Visit Diagnoses Diagnosis Onychia of toe- Primary Onychia and paronychia of toe Ingrowing nail documented in this encounter Care Teams Road Train Driver Relationship Specialty Start Date End Date Roshan Jimenez DO NO ADDRESS ON FILE PCP - General 03/26/03 documented as of this encounter
--- OUTSIDE RECORDS SUMMARY | 2025-06-18 12:59 | XMS_ITS | Encounter Summary ---
Author Organization [facility] Address [address] [place] [address] Care Team Providers Care Numerical Control Machine Operator Name Role Phone Roshan Jimenez DO Primary Care Provider Unav ailable Encounter Details Date Type Department Care Team (Latest Contact Info) Description 08/09/2004 Outpatient [facility]Note 3[facility] [address] [place] [address] Roshan Jimenez DO NO ADDRESS ON FILE CHRONIC AIRWAY OBSTRUCTION NEC (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 Gender Identity Not on file Sexual Orientation Not on file documented as of this encounter Plan of Treatment Not on file documented as of this encounter Visit Diagnoses Diagnosis Chronic airway obstruction, not elsewhere classified ([facility]/HCC)- Primary Chronic airway obstruction, not elsewhere classified Reflux esophagitis Unspecified essential hypertension documented in this encounter Care Teams Numerical Control Machine Operator Relationship Specialty Start Date End Date Roshan Jimenez DO NO ADDRESS ON FILE PCP - General 03/26/03 documented as of this encounter
--- OUTSIDE RECORDS SUMMARY | 2025-06-18 12:59 | XMS_ITS | Encounter Summary ---
Author Organization [facility] Address [address] [place] [address] Care Team Providers Care Numerical Control Operator Name Role Phone Roshan Jimenez DO Primary Care Provider Unav ailable Encounter Details Date Type Department Care Team (Latest Contact Info) Description 12/11/2002 Outpatient [facility] Podiatry-Stevo Bal [place] [address] [place] [address] Noé Rosa, DPM [address] [place] [address] Onychia of toe (Primary Dx) Social History Tobacco Use Types Packs/Day Years Used Date Smoking Tobacco: Never Assessed Sex and Gender Information Value Date Recorded Sex Assigned at Not on file Legal Sex Male 4:59 AM COPY HOLDER Gender Identity Not on file Sexual Orientation Not on file documented as of this encounter Plan of Treatment Not on file documented as of this encounter Visit Diagnoses Diagnosis Onychia of toe- Primary Onychia and paronychia of toe documented in this encounter Care Teams Numerical Control Operator Relationship Specialty Start Date End Date Roshan Jimenez DO NO ADDRESS ON FILE PCP - General 03/26/03 documented as of this encounter
--- OUTSIDE RECORDS SUMMARY | 2025-06-18 13:00 | XMS_ITS | Encounter Summary ---
Author Organization [facility] Address [address] [place] [address] Care Team Providers Care Senior Visual Designer Name Role Phone Roshan Jimenez DO Primary Care Provider Unav ailable Encounter Details Date Type Department Care Team (Latest Contact Info) Description 05/20/1998 Outpatient [facility] [address] [place] [address] Roshan Jimenez DO NO ADDRESS ON FILE Unspecified essential hypertension (Primary Dx); Obstructive chronic bronchitis without exacerbation (CMS/HCC); Depressive type psychosis; Abdominal pain, unspecified site Social History Tobacco Use Types Packs/Day Years Used Date Smoking Tobacco: Never Assessed Sex and Gender Information Value Date Recorded Sex Assigned at Not on file Legal Sex Male 4:59 AM GEOMAGNETIST Gender Identity Not on file Sexual Orientation Not on file documented as of this encounter Plan of Treatment Not on file documented as of this encounter Visit Diagnoses Diagnosis Unspecified essential hypertension- Primary Obstructive chronic bronchitis without exacerbation (CMS/HCC) Obstructive chronic bronchitis without exacerbation Depressive type psychosis Abdominal pain, unspecified site documented in this encounter Care Teams Senior Visual Designer Relationship Specialty Start Date End Date Roshan Jimenez DO NO ADDRESS ON FILE PCP - General 03/26/03 documented as of this encounter
--- OUTSIDE RECORDS SUMMARY | 2025-06-18 13:00 | XMS_ITS | Encounter Summary ---
Author Organization [employer] Address [address] [place] [address] Care Team Providers Care Manager Of Software Name Role Phone Roshan Jimenez DO Primary Care Provider Unav ailable Encounter Details Date Type Department Care Team (Late st Contact Info) Description 11/09/2006 Outpatient Historical [facility] [place], John Messer MD NO ADDRESS ON FILE Obstructive Sleep Apnea (Adult) (Pediatric) (Primary Dx) Social History Tobacco Use Types Packs/Day Years Used Date Smoking Tobacco: Never Assessed Sex and Gender Information Value Date Recorded Sex Assigned at Not on file Legal Sex Male 4:59 AM TRAVEL COUNSELOR Gender Identity Not on file Sexual Orientation Not on file documented as of this encounter Plan of Treatment Not on file documented as of this encounter Visit Diagnoses Diagnosis Obstructive sleep apnea (adult) (pediatric)- Primary documented in this encounter Care Teams Manager Of Software Relationship Specialty Start Date End Date Roshan Jimenez DO NO ADDRESS ON FILE PCP - General 03/26/03 documented as of this encounter
--- OUTSIDE RECORDS SUMMARY | 2025-06-18 13:00 | XMS_ITS | Encounter Summary ---
Author Organization [facility] Address [address] [place] [address] Care Team Providers Care Institutional Custodian Name Role Phone Roshan Jimenez DO Primary Care Provider Unav ailable Encounter Details Date Type Department Care Team (Latest Contact Info) Description 11/16/2006 Outpatient Historical [facility] [address] [place] [address] Thomas Harry MD [address] [facility] [address] [place] [address] Follow-Up Examination, Following Unspecified Surgery (Primary Dx) Social History Tobacco Use Types Packs/Day Years Used Date Smoking Tobacco: Never Assessed Sex and Gender Information Value Date Recorded Sex Assigned at Not on file Legal Sex Male 4:59 AM NEWSCAST DIRECTOR Gender Identity Not on file Sexual Orientation Not on file documented as of this encounter Plan of Treatment Not on file documented as of this encounter Visit Diagnoses Diagnosis Follow-up examination, following unspecified surgery- Primary documented in this encounter Care Teams Institutional Custodian Relationship Specialty Start Date End Date Roshan Jimenez DO NO ADDRESS ON FILE PCP - General 03/26/03 documented as of this encounter
--- OUTSIDE RECORDS SUMMARY | 2025-06-18 13:00 | XMS_ITS | Encounter Summary ---
Author Organization [facility] Address [address] [place] [address] Care Team Providers Care Behavioral Therapy Coordinator Name Role Phone Roshan Jimneez DO Primary Care Provider Unav ailable Encounter Details Date Type Department Care Team (Late st Contact Info) Description 05/27/2008 Outpatient Historical [facility] [address] [place] [address] [place] [address] Yusef Malagon MD NO ADDRESS ON FILE Social History Tobacco Use Types Packs/Day Years Used Date Smoking Tobacco: Every Day Cigarettes 1 40 Alcohol Use Standard Drinks/Week Comments No 0 (1 standard drink = 0.6 oz pur e alcohol) Sex and Gender Information Value Date Recorded Sex Assigned at Not on file Legal Sex Male 4:59 AM MUSIC THERAPIST Gender Identity Not on file Sexual [...] 10:56 AM CDT) NITRITE UA NEGATIVE NEGATIVE [facility] UROBILINOGEN UA 0.2 0.2 [facility] CLARITY UA Clear Clear [facility] GLUCOSE UA NEGATIVE NEGATIVE [facility] SPECIFIC GRAVITY UA 1.005 <=1.005 [facility] PH UA 6.0 5.0 - 9.0 [facility] BILIRUBIN UA NEGATIVE NEGATIVE [facility] LEUKOCYTE ESTERASE UA NEGATIVE NEGATIVE [facility] MICRO EXAM No No [facility] KETONES UA NEGATIVE NEGATIVE [facility] COLOR UA Pale Yellow Straw [facility] PROTEIN UA NEGATIVE NEGATIVE [facility] BLOOD UA NEGATIVE NEGATIVE [facility] Urine specimen (specimen) 05/27/2008 10:56 AM CDT 05/27/2008 10:56 AM CDT us Yusef Malagon MD URINE ORDERABLES Final Result Performing Organization Address City/State/[facility] Co de Phone Number INTERFACE SYSTEM Refer to clinic/hospital department [facility] CLIA# [id number] [address] [place] [address] * CBC WITH DIFFERENTIAL (05/27/2008 10:53 AM CDT) HEMATOCRIT 50.0 41.0 - 53.0 % [facility] PLATELETS 245 140 - 440 K/ul [facility] EOSINOPHILS 3.7 0.0 - 7.0 % [facility] WBC 8.5 4.8 - 10.8 K/ul [facility] EOSINOPHIL ABSOLUTE 0.3 0.0 - 0.7 K/ul [facility] RBC 5.00 4.60 - 6.20 Mil/ul [facility] MCHC 33.0 30.0 - 35.0 g/dL [facility] LYMPHOCYTES 25.7 24.0 - 44.0 % [facility] MONOCYTE ABSOLUTE 0.5 0.1 - 0.6 K/ul [facility] BASOPHILS ABSOLUTE 0.1 0.0 - 0.2 K/ul [facility] MCV 100.0 84.0 - 103.0 Fl [facility] BASOPHILS 0.7 0.0 - 1.0 % [facility] MPV 11.7 8.9 - 12.8 Fl [facility] HEMOGLOBIN 16.5 14.0 - 18.0 g/dL [facility] MONOCYTES 5.8 2.0 - 10.0 % [facility] RDW 14.3 11.0 - 14.5 % [facility] LYMPHOCYTE ABSOLUTE 2.2 1.2 - 4.0 K/ul [facility] NEUTROPHILS 64.1 42.2 - 75.2 % [facility] MCH 33.0 27.0 - 34.0 pg [facility] NEUTROPHIL ABSOLUTE 5.4 2.0 - 8.0 K/ul [facility] Blood specimen (specimen) 05/27/2008 10:53 AM CDT 05/27/2008 11:08 AM CDT us Yusef Malagon MD HEMATOLOGY ORDERABLES Final Re sult Performing Organization Address City/[facility] Co de Phone Number INTERFACE SYSTEM Refer to clinic/hospital department [facility] CLIA# [id number] [address] [place] [address] * ANTIBODY SCREEN (05/27/2008 10:53 AM CDT) ANTIBODY SCREEN Negative [facility] Blood specimen (specimen) 05/27/2008 10:53 AM CDT 05/27/2008 11:08 AM CDT us Yusef Malagon MD BLOOD BANK ORDERABLES Final Re sult Performing Organization Address City/[facility] Co de Phone Number INTERFACE SYSTEM Refer to clinic/hospital department [facility] CLIA# [id number] [address] [place] [address] * ABORH TYPING (05/27/2008 10:53 AM CDT) ABO/RH TYPE O Positive [facility] Blood specimen (specimen) 05/27/2008 10:53 AM CDT 05/27/2008 11:08 AM CDT us Yusef Malagon MD BLOOD BANK ORDERABLES Final Re sult Performing Organization Address [facility] Phone Number INTERFACE SYSTEM Refer to clinic/hospital department [facility] CLIA# [id number] [address] [place] [address] * BASIC METABOLIC PANEL (05/27/2008 10:53 AM CDT) POTASSIUM 4.0 3.5 - 5.0 mEq/L [facility] CO2 29 22 - 32 mmol/l [facility] CHLORIDE 109 95 - 110 mEq/L [facility] OSMOLALITY, CALCULATED 294 275 - 295 mOsm/Kg [facility] CREATININE 1.0 0.7 - 1.5 mg/dL [facility] CALCIUM 9.4 8.4 - 10.5 mg/dL [facility] SODIUM 143 136 - 145 mEq/L [facility] GLUCOSE 88 70 - 110 mg/dL [facility] ANION GAP 9 9 - 20 mEq/L [facility] BUN 16 9 - 20 mg/dL [facility] Blood specimen (specimen) 05/27/2008 10:53 AM CDT 05/27/2008 11:08 AM CDT us Yusef Malagon MD CHEMISTRY ORDERABLES Final Res ult Performing Organization Address [facility] de Phone Number INTERFACE SYSTEM Refer to clinic/hospital department [facility] CLIA# [id number] [address] [place] [address] documented in this encounter Visit Diagnoses Not on filedocumented in this encounter Care Teams Behavioral Therapy Coordinator Relationship Specialty Start Date End Date Roshan Jimenez DO NO ADDRESS ON FILE PCP - General 03/26/03 documented as of this encounter
--- OUTSIDE RECORDS SUMMARY | 2025-06-18 13:00 | XMS_ITS | Encounter Summary ---
Author Organization [facility] Address [address] [place] [address] Care Team Providers Care Car Worker Helper Name Role Phone Roshan Jimenez DO Primary Care Provider Unav ailable Encounter Details Date Type Department Care Team (Late st Contact Info) Description 04/29/[address] [facility] [address] [place] [address] [place] [id number] Social History Tobacco Use Types Packs/Day Years Used Date Smoking Tobacco: Never Assessed Sex and Gender Information Value Date Recorded Sex Assigned at Not on file Legal Sex Male 4:59 AM EDUCATIONAL PSYCHOLOGY PROFESSOR Gender Identity Not on file Sexual Orientation Not on file documented as of this encounter Plan of Treatment Not on file documented as of this encounter Visit Diagnoses Not on filedocumented in this encounter Care Teams Car Worker Helper Relationship Specialty Start Date End Date Roshan Jimenez DO NO ADDRESS ON FILE PCP - General 03/26/03 documented as of this encounter
--- OUTSIDE RECORDS SUMMARY | 2025-06-18 13:00 | XMS_ITS | Encounter Summary ---
Author Organization [facility] Address [address] [place] [address] Care Team Providers Care Product Safety Compliance Leader Name Role Phone Roshan Jimenez DO Primary Care Provider Unav ailable Encounter Details Date Type Department Care Team (Latest Contact Info) Description 04/18/2005 Outpatient [facility] [address] [place] [address] Roshan Jimenez DO NO ADDRESS ON FILE MORBID OBESITY ([facility]) (Primary Dx); SLEEP APNEA NOS; EDEMA; ASTHMA UNSPECIFIED Social History Tobacco Use Types Packs/Day Years Used Date Smoking Tobacco: Never Assessed Sex and Gender Information Value Date Recorded Sex Assigned at Not on file Legal Sex Male 4:59 AM ADVERTISING COPY WRITER Gender Identity Not on file Sexual Orientation Not on file documented as of this encounter Plan of Treatment Not on file documented as of this encounter Visit Diagnoses Diagnosis Morbid obesity ([facility])- Primary Morbid obesity Unspecified sleep apnea Edema Unspecified asthma(493.90) Unspecified asthma documented in this encounter Care Teams Product Safety Compliance Leader Relationship Specialty Start Date End Date Roshan Jimenez DO NO ADDRESS ON FILE PCP - General 03/26/03 documented as of this encounter
--- OUTSIDE RECORDS SUMMARY | 2025-06-18 13:00 | XMS_ITS | Encounter Summary ---
Author Organization [facility] Address [address] [place] [address] Care Team Providers Care Sucker Machine Operator Name Role Phone Roshan Jimenez DO Primary Care Provider Unav ailable Encounter Details Date Type Department Care Team (Latest Contact Info) Description 04/29/2005 Outpatient Historical [facility] [address] [place] [address] [place] [phone] Merlin Reilly MD NO ADDRESS ON FILE HYPERSOMNIA W SLEEP APNEA NOS (Primary Dx) Social History Tobacco Use Types Packs/Day Years Used Date Smoking Tobacco: Never Assessed Sex and Gender Information Value Date Recorded Sex Assigned at Not on file Legal Sex Male 4:59 AM PRODUCTION ROUSTABOUT Gender Identity Not on file Sexual Orientation Not on file documented as of this encounter Plan of Treatment Not on file documented as of this encounter Visit Diagnoses Diagnosis Hypersomnia with sleep apnea, unspecified- Primary documented in this encounter Care Teams Sucker Machine Operator Relationship Specialty Start Date End Date Roshan Jimenez DO NO ADDRESS ON FILE PCP - General 03/26/03 documented as of this encounter
--- OUTSIDE RECORDS SUMMARY | 2025-06-18 13:00 | XMS_ITS | Encounter Summary ---
Author Organization [facility] Address [address] [place] [address] Care Team Providers Care Carpenter Streetcar Name Role Phone Rohsan Jimenez DO Primary Care Provider Unav ailable Encounter Details Date Type Department Care Team (Latest Contact Info) Description 06/23/1999 Outpatient [facility] [address] [place] [address] Roshan Jimenez DO NO ADDRESS ON FILE Unspecified essential hypertension (Primary Dx); Reflux esophagitis; Obesity, unspecified; Chronic airway obstruction, not elsewhere classified (CMS/HCC) Social History Tobacco Use Types Packs/Day Years Used Date Smoking Tobacco: Never Assessed Sex and Gender Information Value Date Recorded Sex Assigned at Not on file Legal Sex Male 4:59 AM INSURANCE CLAIM REPRESENTATIVE Gender Identity Not on file Sexual Orientation Not on file documented as of this encounter Plan of Treatment Not on file documented as of this encounter Visit Diagnoses Diagnosis Unspecified essential hypertension- Primary Reflux esophagitis Obesity, unspecified Chronic airway obstruction, not elsewhere classified (CMS/HCC) Chronic airway obstruction, not elsewhere classified documented in this encounter Care Teams Carpenter Streetcar Relationship Specialty Start Date End Date Roshan Jimenez DO NO ADDRESS ON FILE PCP - General 03/26/03 documented as of this encounter
--- OUTSIDE RECORDS SUMMARY | 2025-06-18 13:00 | XMS_ITS | Encounter Summary ---
Author Organization [facility] Address [address] [place] [address] Care Team Providers Care Receiver Setter Name Role Phone Roshan Jimenez DO Primary Care Provider Unav ailable Encounter Details Date Type Department Care Team (Latest Contact Info) Description 04/18/2006 Outpatient [facility] [address] [place] [address] Roshan Jimenez DO NO ADDRESS ON FILE Depressive Disorder, not Elsewhere Classified (Primary Dx); Anxiety State, Unspecified; Unspecified Essential Hypertension Social History Tobacco Use Types Packs/Day Years Used Date Smoking Tobacco: Never Assessed Sex and Gender Information Value Date Recorded Sex Assigned at Not on file Legal Sex Male 4:59 AM CORPORATE STRATEGY ANALYST Gender Identity Not on file Sexual Orientation Not on file documented as of this encounter Plan of Treatment Not on file documented as of this encounter Visit Diagnoses Diagnosis Depressive disorder, not elsewhere classified- Primary Anxiety state, unspecified Unspecified essential hypertension documented in this encounter Care Teams Receiver Setter Relationship Specialty Start Date End Date Roshan Jimenez DO NO ADDRESS ON FILE PCP - General 03/26/03 documented as of this encounter
--- OUTSIDE RECORDS SUMMARY | 2025-06-18 13:00 | XMS_ITS | Encounter Summary ---
Author Organization [facility] Address [address] [place] [address] Care Team Providers Care Director Appointment Name Role Phone Roshan Jimenez DO Primary Care Provider Unav ailable Encounter Details Date Type Department Care Team (Latest Contact Info) Description 12/23/1999 Outpatient [facility] [address] [place] [address] Roshan Jimenez DO NO ADDRESS ON FILE Unspecified essential hypertension (Primary Dx); Allergic rhinitis, cause unspecified; Chronic airway obstruction, not elsewhere classified (CMS/HCC); Obesity, unspecified Social History Tobacco Use Types Packs/Day Years Used Date Smoking Tobacco: Never Assessed Sex and Gender Information Value Date Recorded Sex Assigned at Not on file 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
--- OUTSIDE RECORDS SUMMARY | 2025-06-18 13:00 | XMS_ITS | Encounter Summary ---
Author Organization [facility] Address [address] [place] [address] Care Team Providers Care Vp Sales Name Role Phone Roshan Jimenez DO Primary Care Provider Unav ailable Encounter Details Date Type Department Care Team (Latest Contact Info) Description 02/20/2007 Outpatient [facility] [address] [place] [address] Roshan Jimenez DO NO ADDRESS ON FILE Chronic Airway Obstruction, not Elsewhere Classified (CMS/HCC) (Primary Dx); Unspecified Asthma; Obesity, Unspecified; Tobacco Use Disorder Social History Tobacco Use Types Packs/Day Years Used Date Smoking Tobacco: Never Assessed Sex and Gender Information Value Date Recorded Sex Assigned at Not on file 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
--- OUTSIDE RECORDS SUMMARY | 2025-06-18 13:00 | XMS_ITS | Encounter Summary ---
Author Organization [facility] Address [address] [place] [address] Care Team Providers Care Junior Project Manager Name Role Phone Roshan Jimenez DO Primary Care Provider Unav ailable Encounter Details Date Type Department Care Team (Latest Contact Info) Description 11/01/2006 Outpatient Historical [facility] [address] [place] [address] John Black MD NO ADDRESS ON FILE Pre-Operative Cardiovascular Examination (Primary Dx) Social History Tobacco Use Types Packs/Day Years Used Date Smoking Tobacco: Never Assessed Sex and Gender Information Value Date Recorded Sex Assigned at Not on file 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 Sex Male 4:59 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 Gender Identity Not on file Sexual Orientation Not on file documented as of this encounter Plan of Treatment Not on file documented as of this encounter Procedures Procedure Name Priority Date/Time Associated Diagnosis Comments COMPREHENSIVE METABOLIC PANEL Routine 11/01/2006 10:35 AM CLEANING ASSOCIATE XR CHEST PA OR AP 1 VW Routine 7 10:09 AM CLEANING ASSOCIATE documented in this encounter Results * (ABNORMAL) COMPREHENSIVE METABOLIC PANEL (11/01/2006 10:35 AM CLEANING ASSOCIATE) GLUCOSE 99 70 - 110 mg/dL INTERFACE [...] mOsm/Kg INTERFACE SYSTEM 11/01/2006 10:3 5 AM CLEANING ASSOCIATE John Black MD CHEMISTRY ORDERABLES Edited INTERFACE SYSTEM Refer to clinic/hospital department * XR CHEST PA OR AP (11/01/2006 10:09 AM CLEANING ASSOCIATE) Anatomical Region Laterality Modality Chest Other 11/01/2006 10:0 9 AM CLEANING ASSOCIATE Narrative 11/01/2006 10:09 AM CLEANING ASSOCIATE PA CHEST: 11/01/2006Chronic appearing accentuated bronchovascular markings [...] Primary documented in this encounter Care Teams Junior Project Manager Relationship Specialty Start Date End Date Roshan Jimenez DO NO ADDRESS ON FILE PCP - General 03/26/03 documented as of this encounter
--- OUTSIDE RECORDS SUMMARY | 2025-06-18 13:00 | XMS_ITS | Encounter Summary ---
Author Organization [facility] Address [address] [place] [address] Care Team Providers Care Timber Selector Name Role Phone Roshan Jimenez DO Primary Care Provider Unav ailable Encounter Details Date Type Department Care Team (Latest Contact Info) Description 07/17/2006 Outpatient [facility] [address] [place] [address] Roshan Jimenez DO NO ADDRESS ON FILE Unspecified Essential Hypertension (Primary Dx); Unspecified Asthma; Depressive Disorder, not Elsewhere Classified Social History Tobacco Use Types Packs/Day Years Used Date Smoking Tobacco: Never Assessed Sex and Gender Information Value Date Recorded Sex Assigned at Not on file 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
--- OUTSIDE RECORDS SUMMARY | 2025-06-18 13:00 | XMS_ITS | Encounter Summary ---
Author Organization [facility] Address [address] [place] [address] Care Team Providers Care Deputy Sheriff K9 Handler Name Role Phone Roshan Jimenez DO Primary Care Provider Unav ailable Encounter Details Date Type Department Care Team (Latest Contact Info) Description 01/06/1999 Outpatient Historical [facility] [place] [address] [place] [address] Noé Rosa, DPM [address] [place] [address] Ingrowing nail (Primary Dx) Social History Tobacco Use Types Packs/Day Years Used Date Smoking Tobacco: Never Assessed Sex and Gender Information Value Date Recorded Sex Assigned at Not on file 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
--- OUTSIDE RECORDS SUMMARY | 2025-06-18 13:00 | XMS_ITS | Encounter Summary ---
Author Organization [facility] Address [address] [place] [address] Care Team Providers Care Work From Home Name Role Phone Roshan Jimenez DO Primary Care Provider Unav ailable Encounter Details Date Type Department Care Team (Latest Contact Info) Description 06/19/1998 Outpatient [facility] [address] [place] [address] Roshan Jimenez DO NO ADDRESS ON FILE Obstructive chronic bronchitis without exacerbation (CMS/HCC) (Primary Dx); Tobacco use disorder; Obesity, unspecified; Unspecified essential hypertension Social History Tobacco Use Types Packs/Day Years Used Date Smoking Tobacco: Never Assessed Sex and Gender Information Value Date Recorded Sex Assigned at Not on file 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
--- OUTSIDE RECORDS SUMMARY | 2025-06-18 13:00 | XMS_ITS | Encounter Summary ---
Author Organization [facility] Address [address] [place] [address] Care Team Providers Care Asbestos Abatement Technician Name Role Phone Roshan Jimenez DO Primary Care Provider Unav ailable Encounter Details Date Type Department Care Team (Latest Contact Info) Description 02/17/2006 Outpatient [facility] [address] [place] [address] Roshan Jimenez DO NO ADDRESS ON FILE Viral Infection (Primary Dx); Unspecified Essential Hypertension; Unspecified Chronic Bronchitis (CMS/HCC); Impacted Cerumen Social History Tobacco Use Types Packs/Day Years Used Date Smoking Tobacco: Never Assessed Sex and Gender Information Value Date Recorded Sex Assigned at Not on file 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 Gender Identity Not on file Sexual Orientation Not on file documented as of this encounter Plan of Treatment Not on file documented as of this encounter Visit Diagnoses Diagnosis Unspecified viral infection, in conditions classified elsewhere and of unspecified site- Primary Unspecified essential hypertension Unspecified chronic bronchitis (CMS/HCC) Unspecified chronic bronchitis Impacted cerumen documented in this encounter Care Teams Asbestos Abatement Technician Relationship Specialty Start Date End Date Roshan Jimenez DO NO ADDRESS ON FILE PCP - General 03/26/03 documented as of this encounter
--- OUTSIDE RECORDS SUMMARY | 2025-06-18 13:00 | XMS_ITS | Encounter Summary ---
Author Organization [facility] Address [address] [place] [address] Care Team Providers Care Lugger Name Role Phone Roshan Jimenez DO Primary Care Provider Unav ailable Encounter Details Date Type Department Care Team (Latest Contact Info) Description 11/30/2006 Outpatient Historical [facility] Th[facility] 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
--- OUTSIDE RECORDS SUMMARY | 2025-06-18 13:00 | XMS_ITS | Encounter Summary ---
Author Organization [facility] Address [address] [place] [address] Care Team Providers Care Import/Export Specialist Name Role Phone Roshan Jimenez DO Primary Care Provider Unav ailable Encounter Details Date Type Department Care Team (Latest Contact Info) Description 01/01/2007 Outpatient Historical [facility] Ear, Nose and Throat 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
--- OUTSIDE RECORDS SUMMARY | 2025-06-18 13:00 | XMS_ITS | Encounter Summary ---
Author Organization [facility] Address [address] [place] [address] Care Team Providers Care Cobbler Mckay Name Role Phone Roshan Jimenez DO Primary Care Provider Unav ailable Encounter Details Date Type Department Care Team (Latest Contact Info) Description 10/20/2006 Outpatient Historical [facility] [address] [place] [phone] Merlin Reilly MD NO ADDRESS ON FILE Obstructive Sleep Apnea (Primary Dx) Social History Tobacco Use Types Packs/Day Years Used Date Smoking Tobacco: Never Assessed Sex and Gender Information Value Date Recorded Sex Assigned at Not on file 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
--- OUTSIDE RECORDS SUMMARY | 2025-06-18 13:00 | XMS_ITS | Encounter Summary ---
Author Organization [email or web address] Address [address] [place] [address] Care Team Providers Care Chief Digital Media Officer Name Role Phone Roshan Jimenez DO Primary Care Provider Unav ailable Encounter Details Date Type Department Care Team (Latest Contact Info) Description 12/31/1997 Outpatient Historical [facility] Axel Armstrong NO ADDRESS ON FILE Localized osteoarthrosis not specified whether primary or secondary, lower leg (Primary Dx) Social History Tobacco Use Types Packs/Day Years Used Date Smoking Tobacco: Never Assessed Sex and Gender Information Value Date Recorded Sex Assigned at Not on file 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
--- OUTSIDE RECORDS SUMMARY | 2025-06-18 13:00 | XMS_ITS | Encounter Summary ---
Author Organization [facility] Address [address] [place] [address] Care Team Providers Care Informatics Nurse Name Role Phone Roshan Jimenez DO Primary Care Provider Unav ailable Encounter Details Date Type Department Care Team (Latest Contact Info) Description 12/22/1999 Outpatient Historical [facility] Axel Armstrong NO ADDRESS ON FILE Localized osteoarthrosis not specified whether primary or secondary, lower leg (Primary Dx); Pain in joint, lower leg Social History Tobacco Use Types Packs/Day Years Used Date Smoking Tobacco: Never Assessed Sex and Gender Information Value Date Recorded Sex Assigned at Not on file 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
--- OUTSIDE RECORDS SUMMARY | 2025-06-18 13:00 | XMS_ITS | Encounter Summary ---
Author Organization [facility] Address [address] [place] [address] Care Team Providers Care Email Production Consultant Name Role Phone Roshan Jimenez DO Primary Care Provider Unav ailable Encounter Details Date Type Department Care Team (Latest Contact Info) Description 07/13/2005 Outpatient [facility] [address] [place] [address] Roshan Jimenez DO NO ADDRESS ON FILE ASTHMA UNSPECIFIED (Primary Dx); CHRONIC AIRWAY OBSTRUCTION NEC (CMS/[facility]); OBESITY NOS; VACCINE FOR STREP PNEUMONIAE Social History Tobacco Use Types Packs/Day Years Used Date Smoking Tobacco: Never Assessed Sex and Gender Information Value Date Recorded Sex Assigned at Not on file 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
--- OUTSIDE RECORDS SUMMARY | 2025-06-18 13:00 | XMS_ITS | Encounter Summary ---
Author Organization [facility] Address [address] [place] [address] Care Team Providers Care Fashion Styling Intern Name Role Phone Roshan Jimenez DO Primary Care Provider Unav ailable Encounter Details Date Type Department Care Team (Latest Contact Info) Description 04/03/2007 Outpatient [facility] [address] [place] [address] Roshan Jimenez DO NO ADDRESS ON FILE Unspecified Essential Hypertension (Primary Dx); Other Apnea of [place]; Obesity, Unspecified Social History Tobacco Use Types Packs/Day Years Used Date Smoking Tobacco: Never Assessed Sex and Gender Information Value Date Recorded Sex Assigned at Not on file 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
--- OUTSIDE RECORDS SUMMARY | 2025-06-18 13:00 | XMS_ITS | Encounter Summary ---
Author Organization [facility] Address [address] [place] [address] Care Team Providers Care Beehive Kiln Supervisor Name Role Phone Roshan Jimenez DO Primary Care Provider Unav ailable Encounter Details Date Type Department Care Team (Latest Contact Info) Description 04/13/1998 Outpatient [facility] [address] [place] [phone] Roshan Jimenez DO NO ADDRESS ON FILE Obstructive chronic bronchitis with exacerbation (CMS/HCC) (Primary Dx); Malaise and fatigue; Tobacco use disorder; Unspecified essential hypertension; Acute bronchitis Social History Tobacco Use Types Packs/Day Years Used Date Smoking Tobacco: Never Assessed Sex and Gender Information Value Date Recorded Sex Assigned at Not on file 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
--- OUTSIDE RECORDS SUMMARY | 2025-06-18 13:00 | XMS_ITS | Encounter Summary ---
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 INR 1.9 [facility] Comment: Expected Values for INR: DVT/PE Goal INR 2.5; range 2.0 - 3.0 Valve Replacement Tissue Goal INR 2.5; range 2.0 - 3.0 Mechanical Goal INR 3.0; range 2.5 - 3.5 POST-ME Goal INR 2.5; range 2.0 - 3.0 or Goal 3.0; range 2.5 - 3.5 Atrial Fibrillation Goal INR 2.5; range 2.0 - 3.0 Ischemic Stroke Goal INR 2.5; range 2.0 - 3.0 For additional information see Guidelines for Anticoagulation available from the pharmacy [facility] [phone] Blood specimen (specimen) 06/09/2008 4:58 AM CDT 06/09/2008 5:24 AM CDT us Moiz Barros MD HEMATOLOGY ORDERABLES Fi nal Result INTERFACE SYSTEM Refer to clinic/hospital department [facility] CLIA# [id number] [address] [place] [address] * (ABNORMAL) PROTIME-INR (06/08/2008 4:50 AM CDT) INR 1.5 [facility] Comment: Expected Values for INR: DVT/PE Goal INR 2.5; range 2.0 - 3.0 Valve Replacement Tissue Goal INR 2.5; range 2.0 - 3.0 Mechanical Goal INR 3.0; range 2.5 - 3.5 POST-ME Goal INR 2.5; range 2.0 - 3.0 or Goal 3.0; range 2.5 - 3.5 Atrial Fibrillation Goal INR 2.5; range 2.0 - 3.0 Ischemic Stroke Goal INR 2.5; range 2.0 - 3.0 For additional information see Guidelines for Anticoagulation available from the pharmacy [facility] [phone] PROTIME 20.0(H) 12.8 - 15.8 Secs [facility] Comment:As of 2007 not e change in normal range. Blood specimen (specimen) 06/08/2008 4:50 AM CDT 06/08/2008 5:18 AM CDT us Moiz Barros MD HEMATOLOGY ORDERABLES Fi nal Result INTERFACE SYSTEM Refer to clinic/hospital department [facility] CLIA# [id number] [address] [place] [address] * (ABNORMAL) CBC WITH DIFFERENTIAL (06/07/2008 5:35 AM CDT) NEUTROPHIL ABSOLUTE 10.9(H) 2.0 - 8.0 K/ul [facility] HEMATOCRIT 40.7(L) 41.0 - 53.0 % [facility] PLATELETS 188 140 - 440 K/ul [facility] EOSINOPHIL ABSOLUTE 0.1 0.0 - 0.7 K/ul [facility] EOSINOPHILS 0.7 0.0 - 7.0 % [facility] RBC 4.15(L) 4.60 - 6.20 Mil/ul [facility] MCHC 32.9 30.0 - 35.0 g/dL [facility] LYMPHOCYTE ABSOLUTE 1.7 1.2 - 4.0 K/ul [facility] LYMPHOCYTES 11.5(L) 24.0 - 44.0 % [facility] MCV 98.1 84.0 - 103.0 Fl [facility] BASOPHILS 0.2 0.0 - 1.0 % [facility] MPV 10.4 8.9 - 12.8 Fl [facility] BASOPHILS ABSOLUTE 0.0 0.0 - 0.2 K/ul [facility] HEMOGLOBIN 13.4(L) 14.0 - 18.0 g/dL [facility] RDW 14.0 11.0 - 14.5 % [facility] MONOCYTES 11.5(H) 2.0 - 10.0 % [facility] MONOCYTE ABSOLUTE 1.7(H) 0.1 - 0.6 K/ul [facility] WBC 14.4(H) 4.8 - 10.8 K/ul [facility] MCH 32.3 27.0 - 34.0 pg [facility] NEUTROPHILS 76.1(H) 42.2 - 75.2 % [facility] Blood specimen (specimen) 06/07/2008 5:35 AM CDT 06/07/2008 5:47 AM CDT us Moiz Barros MD HEMATOLOGY ORDERABLES Fi nal Result INTERFACE SYSTEM Refer to clinic/hospital department [facility]# [id number] [address] [place] [address] * (ABNORMAL) PROTIME-INR (06/07/2008 5:35 AM CDT) PROTIME 18.6(H) 12.8 - 15.8 Secs [facility] Comment:As of 2007 not e change in normal range. INR 1.4 [facility] Comment: Expected Values for INR: DVT/PE Goal INR 2.5; range 2.0 - 3.0 Valve Replacement Tissue Goal INR 2.5; range 2.0 - 3.0 Mechanical Goal INR 3.0; range 2.5 - 3.5 POST-ME Goal INR 2.5; range 2.0 - 3.0 or Goal 3.0; range 2.5 - 3.5 Atrial Fibrillation Goal INR 2.5; range 2.0 - 3.0 Ischemic Stroke Goal INR 2.5; range 2.0 - 3.0 For additional information see Guidelines for Anticoagulation available from the pharmacy [facility] [phone] Blood specimen (specimen) 06/07/2008 5:35 AM CDT 06/07/2008 5:47 AM CDT us Yusef Malagon MD HEMATOLOGY ORDERABLES Final Re sult INTERFACE SYSTEM Refer to clinic/hospital department [facility] CLIA# [id number] [address] [place] [address] * (ABNORMAL) PROTIME-INR (06/06/2008 5:32 AM CDT) PROTIME 16.3(H) 12.8 - 15.8 Secs [facility] Comment:As of 2007 not e change in normal range. INR 1.2 [facility] Comment: Expected Values for INR: DVT/PE Goal INR 2.5; range 2.0 - 3.0 Valve Replacement Tissue Goal INR 2.5; range 2.0 - 3.0 Mechanical Goal INR 3.0; range 2.5 - 3.5 POST-ME Goal INR 2.5; range 2.0 - 3.0 or Goal 3.0; range 2.5 - 3.5 Atrial Fibrillation Goal INR 2.5; range 2.0 - 3.0 Ischemic Stroke Goal INR 2.5; range 2.0 - 3.0 For additional information see Guidelines for Anticoagulation available from the pharmacy [facility] [phone] Blood specimen (specimen) 06/06/2008 5:32 AM CDT 06/06/2008 5:54 AM CDT us Yusef Malagon MD HEMATOLOGY ORDERABLES Final Re sult INTERFACE SYSTEM Refer to clinic/hospital department [facility] CLIA# [id number] [address] [place] [address] * (ABNORMAL) CBC WITH DIFFERENTIAL (06/06/2008 5:32 AM CDT) BASOPHILS 0.3 0.0 - 1.0 % [facility] BASOPHILS ABSOLUTE 0.0 0.0 - 0.2 K/ul [facility] HEMATOCRIT 40.4(L) 41.0 - 53.0 % [facility] PLATELETS 217 140 - 440 K/ul [facility] MONOCYTES 11.3(H) 2.0 - 10.0 % [facility] MONOCYTE ABSOLUTE 1.4(H) 0.1 - 0.6 K/ul [facility] RBC 4.12(L) 4.60 - 6.20 Mil/ul [facility] MCHC 32.7 30.0 - 35.0 g/dL [facility] NEUTROPHIL ABSOLUTE 9.3(H) 2.0 - 8.0 K/ul [facility] MCV 98.1 84.0 - 103.0 Fl [facility] MPV 10.9 8.9 - 12.8 Fl [facility] EOSINOPHIL ABSOLUTE 0.1 0.0 - 0.7 K/ul [facility] EOSINOPHILS 0.6 0.0 - 7.0 % [facility] HEMOGLOBIN 13.2(L) 14.0 - 18.0 g/dL [facility] RDW 13.8 11.0 - 14.5 % [facility] LYMPHOCYTE ABSOLUTE 1.7 1.2 - 4.0 K/ul [facility] LYMPHOCYTES 13.7(L) 24.0 - 44.0 % [facility] WBC 12.5(H) 4.8 - 10.8 K/ul [facility] NEUTROPHILS 74.1 42.2 - 75.2 % [facility] MCH 32.0 27.0 - 34.0 pg [facility] Blood specimen (specimen) 06/06/2008 5:32 AM CDT 06/06/2008 5:56 AM CDT us Yusef Malagon MD HEMATOLOGY ORDERABLES Final Re sult Performing Organization Address [facility] Phone Number INTERFACE SYSTEM Refer to clinic/hospital department [facility] CLIA# [id number] [address] [place] [address] * (ABNORMAL) BASIC METABOLIC PANEL (06/06/2008 5:32 AM CDT) [facility] SODIUM 137 136 - 145 mEq/L [facility] ANION GAP 9 9 - 20 mEq/L [facility] BUN 13 9 - 20 mg/dL [facility] CO2 26 22 - 32 mmol/l [facility] OSMOLALITY, CALCULATED 283 275 - 295 mOsm/Kg [facility] POTASSIUM 3.7 3.5 - 5.0 mEq/L [facility] CREATININE 0.8 0.7 - 1.5 mg/dL [facility] CALCIUM 8.9 8.4 - 10.5 mg/dL [facility] GLUCOSE 122(H) 70 - 110 mg/dL [facility] CHLORIDE 106 95 - 110 mEq/L [facility] Blood specimen (specimen) 06/06/2008 5:32 AM CDT 06/06/2008 5:56 AM CDT us Yusef Malagon MD CHEMISTRY ORDERABLES Final Res ult Performing Organization Address [facility] de Phone Number INTERFACE SYSTEM Refer to [facility] CLIA# [id number] [address] [place] [address] * (ABNORMAL) POC GLUCOSE (06/05/2008 3:01 PM CDT) GLUCOSE POC 115(H) 60 - 100 mg/dL [facility] Venous blood specimen (specimen) 06/05/2008 3:01 PM CDT 06/05/2008 4:38 PM CDT us Yusef Malagon MD POINT OF CARE TESTING Final Re sult INTERFACE SYSTEM Refer to clinic/hospital department [facility] CLIA# [id number] [address] [place] [address] * XR KNEE 1 OR 2 VW [...] GLUCOSE POC 94 60 - 100 mg/dL [facility] Venous blood specimen (specimen) 06/05/2008 11:08 AM CDT 06/06/2008 7:27 AM CDT us Yusef Malagon MD POINT OF CARE TESTING Final Re sult Performing Organization Address [facility] Co de Phone Number INTERFACE SYSTEM Refer to clinic/hospital department [facility] CLIA# [id number] [address] [place] [address] * TYPE AND CROSSMATCH (06/05/2008 6:35 AM CDT) Pathologist [facility] BLOOD BANK PRODUCT INTERFACE SYSTEM Blood specimen (specimen) 06/05/2008 6:35 AM CDT 06/05/2008 6:35 AM CDT us Yusef Malagon MD BLOOD BANK ORDERABLES Final Re sult Performing Organization Address [facility] de Phone Number INTERFACE SYSTEM Refer to clinic/hospital department documented in this encounter Visit Diagnoses Not on filedocumented in this encounter Care Teams Real Estate Account Executive Relationship Specialty Start Date End Date Roshan Jimenez DO NO ADDRESS ON FILE PCP - General 03/26/03 documented as of this encounter
--- OUTSIDE RECORDS SUMMARY | 2025-06-18 13:00 | XMS_ITS | Encounter Summary ---
Author Organization [facility] Address [address] [place] [address] Care Team Providers Care Acid Washer Operator Name Role Phone Roshan Jimenez DO Primary Care Provider Unav ailable Encounter Details Date Type Department Care Team (Latest Contact Info) Description 04/20/1998 Outpatient [facility] [address] [place] [address] Roshan Jimenez DO NO ADDRESS ON FILE Acute bronchitis (Primary Dx); Obstructive chronic bronchitis with exacerbation (CMS/HCC); Tobacco use disorder; Edema Social History Tobacco Use Types Packs/Day Years Used Date Smoking Tobacco: Never Assessed Sex and Gender Information Value Date Recorded Sex Assigned at Not on file 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
--- OUTSIDE RECORDS SUMMARY | 2025-06-18 13:00 | XMS_ITS | Encounter Summary ---
Author Organization [facility] Address [address] [place] [address] Care Team Providers Care Rn Social Work Name Role Phone Roshan Jimenez DO Primary Care Provider Unav ailable Encounter Details Date Type Department Care Team (Latest Contact Info) Description 10/24/2006 Outpatient [facility] 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
[2025-06-18 13:01] LABS: ABG PH Result 7.27 (7.35-7.45); Alveolar-Arterial Oxygen Gradi 71.4 mmHg (5-10); Arterial Blood Gas Hematocrit 28.0 % (42-52); Blood Gas Allen Test Pos; Blood Gas Operator Identificat AMH; Blood Gas Sample Site Radial, right; Blood Gas Sample Type Arterial; Carboxyhemoglobin 1.8 %THgb (0.4-20.1); Glucose Level-ABG 138.0 mg/dL (70-115); HCO3 ABG 46.2 mmol/L (22-26); Ionized Calcium Level - ABG 1.2 mmol/L (1.1-1.4); Methemoglobin 0.8 % (0.4-1.5); Oxygen Saturation ABG 84.8; PEEP 10.0 cmH20; PO2 ABG 53.7 mmHg (80.0-100.0); PO2 FiO2 Ratio Arterial Blood 53; Potassium Level - ABG 4.5 mmol/L (3.5-5.0); Sodium Level - ABG 147.0 mmol/L (131-143)
[2025-06-18] MEDS: FUROsemide 10 mg/mL SDV 10mL 60 MG IVP (13:01)
--- OUTSIDE RECORDS SUMMARY | 2025-06-18 13:01 | XMS_ITS | Clinical Summary ---
Author Organization [facility] Stevo melo [place] Address [address] [place] [address] Phone Care Team Providers Care Deputy Director Of Public Works Name Role Phone Unavailable Primary Care Provider Unavailabl e Allergies Active Allergy Reactions Criticality Noted Date Comments Broccoli Nausea and Vomiting Low 02/14/2025 Per [facility] paperwork Medications fluticasone-umec lidinium-vilante rol (Trelegy [...] Encounters Date Type Department Care Team Description 06/07/2025 12:20 AM CDT - 06/07/2025 11:59 PM CDT Hospital Encounter [facility] [address] [place] [address] 5 [place] [address] Ambulance, [facility] Discharge Disposition: [facility] 06/01/2025 12:20 AM CDT - 06/01/2025 11:59 PM CDT Hospital Encounter [facility] [address] [place] [address] 5 [place] [address] [facility]: [facility] 05/18/2025 - 05/18/2025 11:59 PM CDT Hospital Encounter [facility] [address] [address] [facility]: [facility] 05/13/2025 9:30 AM CDT - 05/13/2025 11:59 PM CDT Hospital Encounter [facility] [address] [address] Ambulance, [facility] Discharge Disposition: [facility] 05/01/2025 Orders Only [facility] G[facility] [place] [address] [place] [phone] Tiago Ryan MD Irritable bowel syndrome with diarrhea (Primary Dx); Chronic diarrhea 04/05/2025 2:15 PM CDT - 04/05/2025 11:59 PM CDT Hospital Encounter [facility] Medical [address] [address] [facility] Dis[facility]: [facility] 04/01/2025 10:00 AM CDT Office Visit [facility] Heart [facility] [address] [facility] [address] [place] [phone] Dane Sierra MD Farmer, Sarah, FNP History of ST elevation myocardial infarction (STEMI) (Primary Dx); Benign hypertension; Paroxysmal atrial fibrillation with rapid ventricular response (CMS/HCC); Mixed hyperlipidemia; Ischemic dilated cardiomyopathy (CMS/HCC); Other iron deficiency anemia 03/27/2025 12:25 AM CDT - 03/27/2025 11:59 PM CDT Hospital Encounter [facility] [address] [facility] [address] [place] [phone] Ambulance, [facility] Jean-Pierre Pappas MD Discharge Disposition: Intermediate Care Facility 03/26/2025 9:54 AM CDT Anesthesia Event [facility] Endoscopy [address] [place] [phone] Grzegorz Arteaga MD Bell, Leslie, CRNA 03/26/2025 9:20 AM CDT - 03/26/2025 9:40 AM CDT Surgery [facility] Endoscopy [address] [place] [phone] Tiago Ryan MD ESOPHAGOGASTRODUODENOSCOPY 03/25/2025 External Device Data ST[facility] ABSTRACTION Provider, Abstract 03/25/2025 External Device Data [facility] ABSTRACTION Provider, Abstract 03/25/2025 External Device Data [facility] ABSTRACTION Provider, Abstract 03/22/2025 3:21 AM CDT - 03/27/2025 7:10 PM CDT Hospital Encounter [facility] 4A Cardiac [address] [place] [phone] Bandar Parsons MD Sundaram, Vignesh, MD Meyer III, DO John Sorto Saroj, MD Haq, Jeesanul, MD Nerella, Ravi V., MD Acute on chronic combined systolic and diastolic heart failure Discharge Disposition: Medicaid Nursing Facility 03/21/2025 - 03/21/2025 11:59 PM CDT Hospital Encounter [facility] [address] [facility] 5 [place] [address] Ambulance, [facility] Discharge Disposition: [facility] hospital 03/21/2025 Travel 03/18/2025 External Device [...] on file Legal Sex Male 12:11 AM PATIENT ACCOUNT LIAISON Gender Identity Not on file Sexual Orientation [...] st Contact Info) Description 07/09/2025 10:20 AM PATIENT ACCOUNT LIAISON Office Visit [facility] [address] [facility] [address] [place] [phone] Saritha Horton FNP [address] [facility] [address] [place] [phone] 10/24/2025 10:45 AM PATIENT ACCOUNT LIAISON Office Visit [facility] [address] [facility] [address] [place] [phone] Dane Sierra MD [address] [facility] [address] [place] [phone] Health Maintenance Due Date Last Done Comments DTAP/TDAP/TD VACCINES (1 - Tdap) 1971 FIT-DNA Q 3 years 1997 FIT/FOBT Q 1 year 1997 Flex Sig/CT Colonography Q 5 years 1997 RSV VACCINE (60+ or ) (1 - Risk 50-74 years 1-dose series) 2002 Abdominal Aortic Aneurysm (A AA) Screening 2017 COLORECTAL SCREENING 07/11/2023 07/11/2013, 07/11/2013, 07/10/2013 Colorectal Cancer Screening 07/11/2023 INFLUENZA VACCINE (#1) 2025 , 05/11/2022, 05/11/2022, Additional history exists COVID-19 Vaccine (2024-2 6 season) 2025 06/06/2023, 05/18/2022, 11/03/2021, Additional history exists ZOSTER VACCINE Completed 11/26/2018, 09/24/2018 PNEUMOCOCCAL VACCINE 50+ YEARS Completed 1 09/19/2019, 07/20/2020, 06/01/2019, Additional history exists Medical Devices Implanted Type Area Pastrycook'S Assistant Device Identifier Shelf Expiration Date Model / Serial / Lot Stent [place] 4.0x38mm Rx [id number] - [id number] Implanted:Qty: 1 on 02/14/2025 by Geronimo, Superior Court Justice () MD Wing at [facility] Stent N/A: Coronary [employer] [id number] 02/19/2027 [id number] / / [id number] Procedures Procedure Name Priority Date/Time Associated [...] ANTIGEN, URINE Routine 2024 2:47 PM CDT CREPING MACHINE OPERATOR HELPER EVALUATE AND TREAT Routine 11:23 AM CDT [...] 10:18 PM CDT BRAIN NATRIURETIC PEPTIDE, B SHIFT PRODUCTION ASSOCIATE OR PROBNP Stat 03/21/2025 10:18 PM CDT COMPREHENSIVE METABOLIC PANEL Stat 10:18 PM CDT CBC WITH DIFFERENTIAL Stat 03/21/2025 10:18 PM CDT EKG 12-LEAD Stat 03/21/2025 10:11 PM CDT ENDOSCOPY, COLON, SCREENING Routine 06/28 12:39 PM PATIENT ACCOUNT LIAISON from Last 3 Months or Most Recently Relevant to Health Maintenance Results * TELEMETRY REPORT (03/28/2025 9:55 AM CDT) us Provider Scanning ECG ORDERABLES Final Result * (ABNORMAL) BASIC METABOLIC PANEL (03/27/2025 4:40 AM CDT) Only the most recent of5 resultswithin the time period is included. SODIUM 140 136 - 145 mmol/L 03/27/2025 5:46 AM CDT [facility] [employer] [facility] POTASSIUM 4.2 3.5 - 5.1 mmol/L 03/27/2025 5:46 AM T [facility] [employer] [facility] Comment:Moderate hemolysis p resent. Can cause significant falsely elevated result. Redraw if indicated. CHLORIDE 101 98 - 107 mmol/L 03/27/2025 5:46 AM CDT [facility] LABORATORY [facility] CO2 32(H) 22 - 29 mmol/L 03/27/2025 5:46 AM T [facility] LABORATORY [facility] CALCIUM 8.1(L) 8.8 - 10.2 mg/dL 03/27/2025 5:46 AM CDT [facility] LABORAT[facility] BUN 10 8 - 23 mg/dL 03/27/2025 5:46 AM CDT [facility] LABORATORY [facility] CREATININE 0.67 0.67 - 1.17 mg/dL 03/27/2025 5:46 AM T [facility] LABORAT[facility] Comment:The GFR result is no t clinically significant on patients <18 or >70 years of age. GLUCOSE 92 74 - 99 mg/dL 03/27/2025 5:46 AM CDT [facility] GFR >60 mL/min/1.7 3 sq meter 03/27/2025 5:46 AM CDT [facility] Comment:eGFR calculated with 2020 CKD-EPI equation. Vegetarian diet, extremely high or low muscle mass, and may affect results. Cystatin C with Glomerular Filtration Rate is a suitable alternative for these patients. ANION GAP 7(L) 9 - 20 mmol/L 03/27/2025 5:46 AM CDT [facility] Blood Venipuncture / Unknown 03/27/2025 4:40 AM CDT 03/27/2025 5:07 AM CDT us Adilene Trinh NP CHEMISTRY ORDERABLES Final Re sult Performing Organization Address [facility] Co de Phone Number [facility] CLIA # [id number] [address] [address] [place], [place] [address] * VANCOMYCIN LEVEL TROUGH (03/26/2025 12:44 PM CDT) VANCOMYCIN, TROUGH 10.6 10.0 - 17.0 ug/mL 03/26/2025 1:24 PM CDT [facility] Blood Venipuncture / Unknown 03/26/2025 12:44 PM CDT 03/26/2025 12:52 PM CDT us Arin Koroma MD CHEMISTRY ORDERABLES Final Resul t Performing Organization Address [facility]/ZIP Co de Phone Number [facility] CLIA # [id number] [address] [address] [place], [place] [address] * UPPER ENDOSCOPY REPORT (03/26/2025 10:15 AM CDT) Narrative Procedure Note Tiago Ryan MD - 03/26/2025 10:15 AM CDT [facility] GI Patient Name: Isreal Arguello Procedure [...] Time Scope In: Scope Out: [address] [place], [place] Tiago Ryan MD GI PROCEDURE ORDERABLES F inal Result * PATHOLOGY (03/26/2025 10:04 AM CDT) CASE REPORT Surgical Pathology Report Case: [id number] Authorizing Provider: Tiago Ryan MD Collected: 03/26/2025 10:04 AM Ordering Location: [facility] Received: 03/26/2025 01:42 PM Endoscopy Pathologist: Marialuisa Lazcano MD Specimens: A) - Stomach B) - Small Intestine, duodenum 9:52 AM CDT [facility] FINAL DIAGNOSIS A. Stomach, biopsy - Mild chronic gastritis - An immunohistochemical stain for H. pylori was performed on block A1 and is negative / B. Small intestine, duodenum, biopsy - Small intestinal mucosa with increased intraepithelial lymphocytes and preserved villous architecture, see comment Marialuisa Lazcano MD [id number] 9:52 AM CDT [facility] at 0952 CDT DIAGNOSIS [...] serologic correlation is recommended. 9:52 AM CDT [facility] GROSS DESCRIPTION A. Received in a container of formalin labeled Saundra -stomach rule out H. pylori are multiple fragments of mucosa, 0.8 x 0.6 x 0.2 cm. The specimen is submitted entirely in A1. B. Received in a container of formalin labeled Saundra -duodenum rule out celiac are multiple fragments of mucosa, 0.8 x 0.6 x 0.1 cm. The specimen is submitted entirely in B1. Grossed by: Angeline Andrade MS, TICO (ASCP) 08/01/202 5 9:52 AM CDT [facility] OPERATIVE PROCEDURE 1: ESOPHAGOGASTRODUODENOSCO PY 5 9:52 AM CDT [facility] CLINICAL INFORMATION R/o H Pylori 5 9:52 AM CDT [facility] COMMENT The bluepulse voice-activated dictation system may have been used [...] determined by the Diagnostic Immunohistochemistry Laboratory of [facility] in compliance with CLIA'88 regulations. Some of these tests rely on the use of analyte specific reagents and are subject to specific labeling requirements by the FDA. All controls show appropriate reactivity. This testing was developed by the Diagnostic Immunohistochemistry Laboratory of [facility]. It has not been cleared or approved by the FDA. The FDA has determined that such clearance or approval is not necessary. 9:52 AM CDT [facility] Tissue ENTIRE STOMACH / Unknown Collection / Unknown 03/26/2025 10:04 AM CDT 03/26/2025 1:42 PM CDT Comment:R/o H Pylori Tissue specimen (specimen) (Small Intestine) Collection / Unknown 03/26/2025 10:04 AM CDT 03/26/2025 1:42 PM CDT Comment:R/O Celiac Sprue us Tiago Ryan MD PATHOLOGY/CYTOLOGY ORDERA BLES Final Result [facility] CLIA # [id number] [address] [place] [address] * (ABNORMAL) HEMOGLOBIN AND HEMATOCRIT (03/26/2025 8:46 AM CDT) Only the most recent of3 resultswithin the time period is included. Pathologist [facility] HEMOGLOBIN 7.4(L) 14.0 - 18.0 g/dL 03/26/2025 9:05 AM CDT [facility] HEMATOCRIT 26.3(L) 41.0 - 53.0 % 03/26/2025 9:05 AM CDT [facility] Blood Venipuncture / Unknown 03/26/2025 8:46 AM CDT 03/26/2025 8:57 AM CDT us Arin Koroma MD HEMATOLOGY ORDERABLES Final Resu lt [facility] CLIA # [id number] [facility] [address] [place] [address] * (ABNORMAL) CBC WITH DIFFERENTIAL (03/26/2025 2:06 AM CDT) Only the most recent of5 resultswithin the time period is included. Pathologist [facility] WBC 11.4(H) 4.8 - 10.8 K/uL 03/26/2025 2:18 AM CDT [facility] RBC 2.95(L) 4.60 - 6.20 M/uL 03/26/2025 2:18 AM CDT [facility] HEMOGLOBIN 7.3(L) 14.0 - 18.0 g/dL 03/26/2025 2:18 AM T [facility] HEMATOCRIT 25.6(L) 41.0 - 53.0 % 03/26/2025 2:18 AM T [facility] MCV 86.8 84.0 - 103.0 fL 03/26/2025 2:18 AM CDT [facility] MCH 24.7(L) 27.0 - 34.0 pg 03/26/2025 2:18 AM CDT [facility] MCHC 28.5(L) 30.0 - 35.0 g/dL 03/26/2025 2:18 AM [facility] PLATELETS 399 140 - 440 K/uL 03/26/2025 2:18 AM [facility] MPV 9.2 8.9 - 12.8 fL 03/26/2025 2:18 AM [facility] RDW 18.6(H) 11.0 - 14.5 % 03/26/2025 2:18 AM [facility] RDW-STDEV 58.7(H) 37.0 - 54.0 fL 03/26/2025 2:18 AM [facility] NEUTROPHILS 79(H) 42 - 75 % 03/26/2025 2:18 AM [facility] LYMPHOCYTES 11(L) 24 - 44 % 03/26/2025 2:18 AM [facility] MONOCYTES 7 2 - 10 % 03/26/2025 2:18 AM [facility] [employer] [facility] EOSINOPHILS 2 0 - 7 % 03/26/2025 2:18 AM [facility] [employer] [facility] BASOPHILS 1 0 - 1 % 03/26/2025 2:18 AM [facility] IMMATURE GRANULOCYTES 1 0 - 2 % 03/26/2025 2:18 AM [facility] NEUTROPHIL ABSOLUTE 8.93(H) 2.00 - 8.00 K/uL 03/26/2025 2:18 AM [facility] LYMPHOCYTE ABSOLUTE 1.19(L) 1.20 - 4.00 K/uL 03/26/2025 2:18 AM [facility] MONOCYTE ABSOLUTE 0.84(H) 0.10 - 0.60 K/uL 03/26/2025 2:18 AM [facility] EOSINOPHIL ABSOLUTE 0.21 0.00 - 0.70 K/uL 03/26/2025 2:18 AM [facility] BASOPHILS ABSOLUTE 0.06 0.00 - 0.20 K/uL 03/26/2025 2:18 AM [facility] IMMATURE GRANULOCYTES ABSOLUTE 0.15(H) 0.00 - 0.10 K/uL 03/26/2025 2:18 AM CDT [facility] SMEAR REVIEWED: NA - Not Applicable 03/26/2025 2:18 AM CDT [facility] Blood Venipuncture / Unknown 03/26/2025 2:06 AM CDT 03/26/2025 2:09 AM CDT us Adilene Trinh SHIFT PRODUCTION ASSOCIATE HEMATOLOGY ORDERABLES Final R esult [facility] CLIA # [id number] [address] [place], [place] [id number] * LEGIONELLA ANTIGEN, URINE (03/25/2025 2:47 PM CDT) Pathologist [facility] LEGIONELLA AG, URINE NOT DETECTED Not Detected 03/25/2025 3:56 PM CDT [facility] Urine URINE SPECIMEN OBTAINED BY CLEAN CATCH PROCEDURE / Unknown Collection / Unknown 03/25/2025 2:47 PM CDT 03/25/2025 2:52 PM CDT Narrative [facility] - 03/25/2025 3:56 PM [...] ORDERABLE S Final Result Performing Organization Address City/[facility]/ZIP Co de Phone Number [facility] CLIA # [id number] [address] [place] [address] * STREPTOCOCCUS PNEUMONIAE ANTIGEN (03/25/2025 2:47 PM CDT) Pathologist [facility] STREPTOCOCCUS PNEUMONIAE AG NOT DETECTED Not Detected 03/25/2025 3:55 PM CDT [facility] Urine URINE SPECIMEN OBTAINED BY CLEAN CATCH PROCEDURE / Unknown Collection / Unknown 03/25/2025 2:47 PM CDT 03/25/2025 2:52 PM CDT us Arin Koroma MD MICROBIOLOGY - GENERAL ORDERABLE S Final Result Performing Organization Address [facility] Co de Phone Number [facility] CLIA # [id number] [address] [address] [place] [address] * PERIPHERAL BLOOD SMEAR PATHOLOGY INTERP (03/25/2025 5:01 AM CDT) PERIPHERAL BLOOD SMEAR INTERP See Interpretation Below 03/26/2025 11:26 AM CDT [facility] INTERPRETED BY: Axel Keating MD 03/26/2025 11:26 AM CDT [facility] Blood Venipuncture / Unknown 03/25/2025 5:01 AM CDT 03/25/2025 5:18 AM CDT Narrative [facility] - 03/26/2025 11:26 AM [...] ORDERABLES Final Resu lt Performing Organization Address [facility]/ZIP Co de Phone Number [facility] CLIA # [id number] [address] [place] [address] * POC GLUCOSE (03/24/2025 1:01 PM CDT) Only the most recent of7 resultswithin the time period is included. [facility] GLUCOSE POC 90 74 - 99 mg/dL 03/24/2025 1:01 PM CDT [facility] SPECIMEN SOURCE, GLUCOSE POC Capillary 03/24/2025 1:01 PM CDT [facility] Blood, whole 03/24/2025 1:01 PM CDT 03/24/2025 1:10 PM CDT us Cal Garcia III, DO POINT OF CARE TESTING Fin al Result Performing Organization Address City/[facility]/ZIP Co de Phone Number [facility] CLIA # [id number] [address] [place] [address] * TRANSFUSE EMERGENCY RELEASE/DOWNTIME RED BLOOD CELLS (03/24/2025 12:50 PM CDT) us Cal Garcia III, DO BLOOD TRANSFUSION ORDERAB LES Final Result * (ABNORMAL) MRSA PCR RAPID SCREEN (03/24/2025 9:28 AM CDT) [facility] MRSA PCR RESULT MRSA detected( A) MRSA not detected 03/24/2025 10:44 AM CDT [facility] Surveillance ANTERIOR NARES SWAB / Unknown Collection / Unknown 03/24/2025 9:28 AM CDT 03/24/2025 9:31 AM CDT Narrative [facility] - 03/24/2025 10:44 AM CDT Positive MRSA called to Susy Berkowitz RN by Jose L Vega on 03/24/2025 at 10:43 AM with verbal readback. us Adilene Trinh SHIFT PRODUCTION ASSOCIATE MICROBIOLOGY - GENERAL ORDERA BLES Final Result [facility] CLIA # [id number] [address] [address] * MAGNESIUM LEVEL (03/24/2025 4:41 AM CDT) MAGNESIUM 2.4 1.6 - 2.4 mg/dL 03/24/2025 5:43 AM CDT [facility] Blood Venipuncture / Unknown 03/24/2025 4:41 AM CDT 03/24/2025 5:00 AM CDT Azul Wilkerson SHIFT PRODUCTION ASSOCIATE CHEMISTRY ORDERABLES Final Re sult Performing Organization Address [facility] Co de Phone Number [facility] CLIA # [id number] [address] [address] [place] [address] * CORTISOL LEVEL (03/24/2025 4:41 AM CDT) CORTISOL LEVEL 13.5 ug/dL 03/24/2025 5:43 AM CDT [facility] Comment: Cortisol Reference Range Morning Hours 6-10 a.m. 6.0-18.4 ug/dL Afternoon Hours 4-8 p.m. 2.7-10.5 ug/dL Blood Venipuncture / Unknown 03/24/2025 4:41 AM CDT 03/24/2025 5:00 AM CDT Azul Wilkerson SHIFT PRODUCTION ASSOCIATE CHEMISTRY ORDERABLES Final Re sult Performing Organization Address [facility]/ZIP Co de Phone Number [facility] CLIA # [id number] [address] [address] * VANCOMYCIN LEVEL RANDOM (03/24/2025 4:41 AM CDT) VANCOMYCIN, RANDOM 10.2 5.0 - 50.0 ug/mL 03/24/2025 5:43 AM CDT [facility] Blood Venipuncture / Unknown 03/24/2025 4:41 AM CDT 03/24/2025 5:00 AM CDT Narrative [facility] - 03/24/2025 5:43 AM CDT Vancomycin Therapeutic Ranges: Vancomycin Trough: 10 - 20 mcg/mL Vancomycin Peak: 25 - 50 mcg/mL us Jaime Ruggiero MD CHEMISTRY ORDERABLES Final R esult Performing Organization Address [facility] Co de Phone Number [facility] CLIA # [id number] [address] [place], [place] [address] * BLOOD CULTURE (03/23/2025 10:03 PM CDT) Only the most recent of2 resultswithin the time period is included. [facility] BLOOD CULTURE No growth 03/29/2025 3:34 AM CDT [facility] Blood (Peripheral) Venipuncture / Unknown 03/23/2025 10:03 PM CDT 03/23/2025 10:06 PM CDT Narrative [facility] - 03/29/2025 3:34 AM CDT Specimen processed with suboptimal blood volume collected. Tequila Nobles MD MICROBIOLOGY - GENERAL ORDERABLES Final Result Performing Organization Address [facility] Co de Phone Number [facility] CLIA # [id number] [address] [place] [address] * RESPIRATORY PATHOGEN PCR PANEL (03/23/2025 1:59 PM CDT) [facility] Respiratory Pathogen PCR Panel NOT DETECTED No respiratory pathogen nucleic acids detected. 03/23/2025 3:25 PM CDT [facility] COVID-19 PCR NOT DETECTED Not Detected 03/23/2025 3:25 PM CDT [facility] Upper Respiratory ENTIRE NASOPHARYNX / Unknown Collection / Unknown 03/23/2025 1:59 PM CDT 03/23/2025 2:09 PM CDT Kim [facility] - 03/23/2025 3:25 PM [...] MICROBIOLOGY - GENERAL ORDERA BLES Final Result [facility] CLIA # [id number] [address] [address] * ECHOCARDIOGRAM W/ CONTRAST AGENT (03/23/2025 10:23 AM CDT) EJECTION FRACTION 31 INTERFACE SYSTEM 03/23/2025 9:35 AM CDT [facility] INTERFACE SYSTEM - 03/23/2025 11:19 AM CDT [facility] Cardiovascular Services Echocardiography Laboratory [address] [place] [address] Transthoracic Echocardiography Patient: Isreal Arguello Study ID: ECHO COMPLETE - R Gender: M : 1950 Age: 74 Room: [facility] Study 03/23/2025 Pt Inpatient Date: Status: Study 09:35:[address] [facility] #: [id number] Time: Ordering:Azul Wilkerson (student) Thumb Sewer: Angeline Silva Indications and History: Chest pain. [...] (H) odalis values outside specified reference range. [facility] Echo Labs are accredited with the [facility] Accreditation Commission - Echocardiography. Prepared and Electronically Authenticated Jose Smith MD Confirmed 03/23/2025 11:19 Procedure Note Jose Smith MD - 03/23/2025 [facility] Cardiovascular Services Echocardiography Laboratory [address] [place] [address] Transthoracic Echocardiography Patient: Isreal Arguello Study ID: ECHO COMPLETE- R Gender: Mary : 1950 Age: 74 Room: [facility] Study 03/23/2025 Pt Inpatient Date: Status: Study 09:35:52 AM [facility] #: [id number] Time: Ordering:Azul Wilkerson (student) Thumb Sewer: Angeline Silva Indications and History: Chest pain. [...] ANUEL, Vmax 1.4cm^2 SV, 2-p 159 ml AUNEL/bsa, Vmax 0.52cm^2/m^2 EDV/bsa, 2-p 89 ml/m^2 LVOT/AV, [...] coapt 34.2cm MiV/LVOT VTI1.7 LVOT Value Decel [id number] cm/s^2 Diam, S 2.0 cm Decel time [...] (H) odalis values outside specified reference range. [facility] Echo Labs are accredited with theIntersocietal Accreditation Commission - Echocardiography. Prepared and Electronically Authenticated Jose Smith MD Confirmed 03/23/2025 11:19 us Azul Wilkerson NP US ORDERABLES Final Result INTERFACE SYSTEM Refer to clinic/hospital department * (ABNORMAL) AMMONIA LEVEL (03/23/2025 9:23 AM CDT) AMMONIA 15.5(L) 16.0 - 60.0 umol/L 03/23/2025 9:53 AM CDT [facility] LABORATORY [facility] Blood, venous Venipuncture / Unknown 03/23/2025 9:23 AM CDT 03/23/2025 9:27 AM CDT Azul Wilkerson NP CHEMISTRY ORDERABLES Final Re sult [facility] [facility] CLIA # [id number] [address] [facility] [place] [address] * XR CHEST PA OR AP 1 [...] 2.0 <=2.0 mmol/L 03/23/2025 7:08 AM CDT [facility] [employer] [facility] SPECIMEN SOURCE, GASES POC Arterial 03/23/2025 7:08 AM CDT [facility] PUNC SITE POC ART PUNCT 03/23/2025 7:08 AM [facility] Blood 03/23/2025 7:08 AM CDT 03/23/2025 7:11 AM CDT Narrative [facility] - 03/23/2025 7:08 AM CDT References ranges displayed are for Arterial samples. us Cal Garcia III, DO POINT OF CARE TESTING Fin al Result [facility] CLIA # [id number] [address] [place] [address] * (ABNORMAL) BLOOD GAS ARTERIAL (03/23/2025 7:08 AM CDT) Only the most recent of3 resultswithin the time period is included. PH BLOOD POC 7.43 7.35 - 7.45 03/23/2025 7:08 AM [facility] PCO2 POC 55(H) 35 - 45 mm Hg 03/23/2025 7:08 AM [facility] PO2 POC 128(H) 80 - 105 mm Hg 03/23/2025 7:08 AM [facility] HCO3 (CALC) POC 37(H) 22 - 26 mmol/L 03/23/2025 7:08 AM [facility] HEMOGLOBIN POC 7.6(L) 12.0 - 18.0 g/dL 03/23/2025 7:08 AM [facility] BASE EXCESS POC 12(H) -2 - 3 mmol/L 03/23/2025 7:08 AM [facility] O2 SATURATION POC 100(H) 95 - 98 % 03/23/2025 7:08 AM [facility] SODIUM POC 139 138 - 146 mmol/L 03/23/2025 7:08 AM [facility] POTASSIUM POC 4.1 3.5 - 4.9 mmol/L 03/23/2025 7:08 AM T [facility] HEMATOCRIT POC 23(L) 38 - 51 % 03/23/2025 7:08 AM T [facility] PH TEMP CORRECT 7.43 7.35 - 7.45 03/23/20 7:08 AM T [facility] PCO2 TEMP CORRECT 55(H) 35 - 45 mm Hg 03/23/2025 7:08 AM T [facility] PO2 TEMP CORRECT 128(H) 80 - 105 mm Hg 03/23/2025 7:08 AM T [facility] SPECIMEN SOURCE, GASES POC Arterial 03/23/2025 7:08 AM T [facility] CALCIUM IONIZED POC 4.4(L) 4.8 - 5.2 mg/dL 03/23/2025 7:08 AM T [facility] TCO2 (CALC) POC 38(H) 23 - 27 mmol/L 03/23/2025 7:08 AM T [facility] PUNC SITE POC ART PUNCT 03/23/2025 7:08 AM [facility] VENT MODE POC BiPAP 03/23/2025 7:08 AM [facility] PATIENT'S TEMPERATURE POC 37.0 degrees 03/23/2025 7:08 AM [facility] Blood, arterial 03/23/2025 7 :08 AM CDT 03/23/2025 7:11 AM CDT us Cal Garcia III, DO ABG ORDERABLES Final Res ult [facility] CLIA # [id number] [address] [place] [address] * LACTIC ACID (03/23/2025 5:26 AM CDT) LACTIC ACID 2.0 <=2.0 mmol/L 03/23/2025 5:58 AM CDT [facility] Blood Venipuncture / Unknown 03/23/2025 5:26 AM CDT 03/23/2025 5:34 AM CDT us Lenora Purdy DISH CLOTH INSPECTOR CHEMISTRY ORDERABLES Fi nal Result [facility] CLIA # [id number] [facility] [address] [place] [address] * (ABNORMAL) PROCALCITONIN (03/23/2025 5:16 AM CDT) PROCALCITONIN 54.34(H) <=0.08 ng/mL 03/23/2025 6:31 AM CDT [facility] Blood Venipuncture / Unknown 03/23/2025 5:16 AM CDT 03/23/2025 5:41 AM CDT Narrative [facility] - 03/23/2025 6:31 AM [...] and peaks within 6-24 hours. Lenora Purdy DISH CLOTH INSPECTOR CHEMISTRY ORDERABLES Fi nal Result Performing Organization Address [facility] Co de Phone Number [facility] CLIA # [id number] [address] [address] * (ABNORMAL) BASIC METABOLIC PANEL PLUS (ADD ON CMP TO BMP) (03/23/2025 5:16 AM CDT) Pathologist [facility] TOTAL PROTEIN 7.9 6.4 - 8.3 g/dL 03/23/2025 7:51 AM CDT [facility] LABORATORY [facility] ALBUMIN 2.8(L) 3.5 - 5.2 g/dL 03/23/2025 7:51 AM CDT [facility] LABORATORY [facility] BILIRUBIN TOTAL 0.5 0.0 - 1.0 mg/dL 03/23/2025 7:51 AM CDT [facility] ALKALINE PHOSPHATASE 171(H) 40 - 129 U/L 03/23/2025 7:51 AM CDT [facility] AST 16 10 - 50 U/L 03/23/2025 7:51 AM CDT [facility] ALT 8 <=50 U/L 03/23/2025 7:51 AM CDT [facility] Blood Venipuncture / Unknown 03/23/2025 5:16 AM CDT 03/23/2025 5:41 AM CDT Azul Wilkerson SHIFT PRODUCTION ASSOCIATE CHEMISTRY ORDERABLES Final Re sult Performing Organization Address City/[facility]/ZIP Co de Phone Number [facility] CLIA # [id number] [address] [id number] * TYPE AND SCREEN (03/23/2025 5:16 AM CDT) Pathologist [facility] ABO GROUP O 03/23/2025 7:31 AM CDT [facility] LABORATORY SERVICES -- [place] RH (D) TYPE Positive 03/23/2025 7:31 AM CDT [facility] LABORATORY SERVICES -- [place] ANTIBODY SCREEN Negative 03/23/2025 7:31 AM CDT [facility]ORY SERVICES -- [place] Blood Venipuncture / Unknown 03/23/2025 5:16 AM CDT 03/23/2025 5:34 AM CDT Lenora Julieth Gurwinder DISH CLOTH INSPECTOR BLOOD BANK ORDERABLES E dited Result - Final Performing Organization Address City/[facility]/ZIP Co de Phone Number [facility] [place] CLIA#[id number] [address] [place] [address], * (ABNORMAL) C-REACTIVE PROTEIN (03/23/2025 5:16 AM CDT) CRP 60.9(H) 0.0 - 5.0 mg/L 03/23/2025 12:30 PM CDT [facility] Blood Venipuncture / Unknown 03/23/2025 5:16 AM CDT 03/23/2025 5:41 AM CDT Azul Wilkerson SHIFT PRODUCTION ASSOCIATE CHEMISTRY ORDERABLES Final Re sult Performing Organization Address City/[facility]/ZIP Co de Phone Number [facility] CLIA # [id number] [facility] [address] * (ABNORMAL) T4 FREE (03/23/2025 5:16 AM CDT) T4 FREE 0.72(L) 0.81 - 1.70 ng/dL 03/23/2025 2:20 PM CDT [facility] Blood Venipuncture / Unknown 03/23/2025 5:16 AM CDT 03/23/2025 5:41 AM CDT Azul Kd SHIFT PRODUCTION ASSOCIATE CHEMISTRY ORDERABLES Final Re sult Performing Organization Address City/[facility]/ZIP Co de Phone Number [facility] [employer] [facility] CLIA # [id number] [address] [address] * PREPARE RED BLOOD CELLS (03/23/2025 4:38 AM CDT) [facility] COMPONENT TYPE [id number] [facility] LABORATORY SERVICES -- [place] COMPONENT IDENTIFICATION [id number] [facility] LABORATORY SERVICES -- [place] UNIT ABO O [facility] LABORATORY SERVICES -- [place] UNIT RH NEG [facility] LABORATORY SERVICES -- [place] CROSSMATCH Compatible [facility] LABORATORY SERVICES -- [place] COMPONENT STATUS Transfused ME [facility] LABORATORY SERVICES -- [place] COMPONENT EXPIRATION DATE/TIME [id number] [facility] LABORATORY SERVICES -- [place] COMPONENT CODING SYSTEM [phone] [facility] LABORATORY SERVICES -- [place] VOLUME, BLOOD PRODUCT 350 [facility] LABORATORY SERVICES -- [place] Other, specify 03/23/2025 4: 38 AM CDT Lenora Purdy DISH CLOTH INSPECTOR LAB TRANSFUSION ORDERAB LES Edited Result - Final Performing Organization Address [facility] Co de Phone Number [facility] [employer] [facility] [place] CLIA#[id number] [address] [place] [address], * (ABNORMAL) MANUAL DIFFERENTIAL (03/23/2025 3:57 AM CDT) [facility] Signature SEGMENTED NEUTROPHILS 98(H) 36 - 66 % 03/23/2025 4:50 AM CDT [facility] [employer] [facility] LYMPHOCYTES RELATIVE 0(L) 24 - 44 % 03/23/2025 4:50 AM CDT [facility] [employer] [facility] MONOCYTES RELATIVE 1(L) 4 - 10 % 03/23/2025 4:50 AM CDT [facility] [employer] [facility] METAMYELOCYTES RELATIVE 1 0 - 1 % 03/23/2025 4:50 AM CDT [facility] PLATE[facility] EST. Slightly Increased 03/23/2025 4:50 AM CDT [facility] NEUTROPHILS ABSOLUTE COUNT 41.85(H) 2.00 - 8.00 K/uL 03/23/2025 4:50 AM CDT [facility] LYMPHOCYTES ABSOLUTE 0.00(L) 1.20 - 4.00 K/uL 03/23/2025 4:50 AM CDT [facility] ATYPICAL LYMPHS ABSOLUTE 03/23/2025 4:50 AM CDT [facility] MONOCYTES ABSOLUTE 0.43 0.10 - 0.60 K/uL 03/23/2025 4:50 AM CDT [facility] ANISOCYTOSIS 1+ /hpf 03/23/2025 4:50 AM CDT [facility] POLYCHROMASIA 1+ /hpf 03/23/2025 4:50 AM CDT [facility] VACUOLATED NEUTROPHILS Present /hpf 03/23/2025 4:50 AM T [facility] TOTAL CELLS COUNTED IN DIFF 100 03/23/2025 4:50 AM T [facility] Blood Venipuncture / Unknown 03/23/2025 3:57 AM CDT 03/23/2025 4:02 AM CDT us Lenora Purdy DISH CLOTH INSPECTOR HEMATOLOGY ORDERABLES C OM Final Result [facility] CLIA # [id number] [address] [place] [address] [place] [address] * VITAMIN B12 AND FOLATE (03/23/2025 3:57 AM CDT) VITAMIN B12 616 211 - 946 pg/mL 03/23/2025 4:54 AM CDT [facility] FOLATE, SERUM 11.4 3.1 - 17.5 ng/mL 03/23/2025 4:54 AM CDT [facility] Blood Venipuncture / Unknown 03/23/2025 3:57 AM CDT 03/23/2025 4:03 AM CDT Jaime Ruggiero MD CHEMISTRY ORDERABLES Final R esult [facility] CLIA # [id number] [address] [address] [place] [address] * CT ABDOMEN PELVIS W CONTRAST (03/22/2025 [...] Ruggiero MD URINE ORDERABLES Final Resul t [facility] CLIA # [id number] [address] [place] [address] * (ABNORMAL) URINALYSIS WITH REFLEX MICROSCOPIC (03/22/2025 8:38 AM CDT) COLOR UA Pale Yellow Pale to Dark Yellow 03/22/2025 9:07 AM [facility] CLARITY UA Turbid(A) Clear 03/22/2025 9:07 AM [facility] SPECIFIC GRAVITY UA 1.013 1.003 - 1.035 03/22/2025 9:07 AM [facility] PH UA 8.0 5.0 - 8.0 03/22/2025 9:07 AM [facility] LEUKOCYTE ESTERASE UA 3+(A) Negative 03/22/2025 9:07 AM [facility] NITRITE UA Negative Negative 03/22/2025 9:07 AM [facility] PROTEIN UA Trace(A) Negative 03/22/2025 9:07 AM [facility] GLUCOSE UA Negative Negative 03/22/2025 9:07 AM [facility] KETONES UA Negative Negative 03/22/2025 9:07 AM [facility] UROBILINOGEN UA <2.0 <2.0 mg/dL 9:07 AM CDT [facility] BILIRUBIN UA Negative Negative 03/22/2025 9:07 AM CDT [facility] BLOOD UA Trace(A) Negative 03/22/2025 9:07 AM CDT [facility] WBC UA 3-5(A) 0 - 2 /hpf 03/22/2025 9:07 AM CDT [facility] RBC UA 3-5(A) 0 - 2 /hpf 03/22/2025 9:07 AM CDT [facility] BACTERIA UA Negative Negative /hpf 03/22/2025 9:07 AM CDT [facility] EPITHELIAL CELLS, URINE 0-5 0 - 5 /hpf 03/22/2025 9:07 AM CDT [facility] TRIPLE PHOS Present(A) Absent 03/22/2025 9:07 AM CDT [facility] Urine URINE SPECIMEN OBTAINED BY CLEAN CATCH PROCEDURE / Unknown Collection / Unknown 03/22/2025 8:38 AM CDT 03/22/2025 8:50 AM CDT us Jaime Ruggiero MD URINE ORDERABLES Final Resul t [facility] CLIA # [id number] [address] [place] [address] * (ABNORMAL) TROPONIN 6 HR, 5TH GEN (03/22/2025 4:36 AM CDT) TROPONIN T, 6 HR 5TH GEN 133(HH) <=15 ng/L 03/22/2025 5:22 AM CDT [facility] DELTA 6HR TROPONIN T % -9 See Interp. % 03/22/2025 5:22 AM CDT [facility] Blood Venipuncture / Unknown 03/22/2025 4:36 AM CDT 03/22/2025 4:46 AM CDT Narrative [facility] - 03/22/2025 5:22 AM CDT Troponin elevated. Delay in collection of timed specimen beyond recommended collection interval. Results must be interpreted in clinical context. Delta not changing. Bandar Parsons MD CHEMISTRY ORDERABLES Final Res ult Performing Organization Address [facility] Co de Phone Number [facility] CLIA # [id number] [address] [address] [place] [address] * (ABNORMAL) IRON, TIBC, AND PERCENT SATURATION (03/22/2025 4:36 AM CDT) IRON 16(L) 59 - 158 ug/dL 03/22/2025 6:41 PM CDT [facility] TIBC 316 250 - 450 ug/dL 03/22/2025 6:41 PM CDT [facility] IRON % SATURATION 5(L) 15 - 60 % 03/22/2025 6:41 PM CDT [facility] Blood Venipuncture / Unknown 03/22/2025 4:36 AM CDT 03/22/2025 4:46 AM CDT Jaime Ruggiero MD CHEMISTRY ORDERABLES Final R esult Performing Organization Address [facility] Co de Phone Number [facility] CLIA # [id number] [address] [address] * (ABNORMAL) TSH (03/22/2025 4:36 AM CDT) TSH 6.70(H) 0.27 - 4.20 uIU/mL 03/22/2025 6:41 PM CDT [facility] Blood Venipuncture / Unknown 03/22/2025 4:36 AM CDT 03/22/2025 4:46 AM CDT Jaime Ruggiero MD CHEMISTRY ORDERABLES Final R esult Performing Organization Address [facility] Co de Phone Number [facility] CLIA # [id number] [address] [address] [place] [address] * FERRITIN (03/22/2025 4:36 AM CDT) FERRITIN 31.2 30.0 - 400.0 ng/mL 03/22/2025 6:41 PM CDT [facility] Blood Venipuncture / Unknown 03/22/2025 4:36 AM CDT 03/22/2025 4:46 AM CDT us Jaime Ruggiero MD CHEMISTRY ORDERABLES Final R esult Performing Organization Address [facility] Co de Phone Number [facility] CLIA # [id number] [address] [address] [place] [address] * (ABNORMAL) TROPONIN BASELINE, 5TH GEN (03/21/2025 10:18 PM CDT) TROPONIN T, BASELINE 5TH GEN 146(HH) <=15 ng/L 03/22/2025 4:37 AM CDT [facility] Blood Venipuncture / Unknown 03/21/2025 10:18 PM CDT 03/21/2025 10:23 PM CDT Narrative [facility] [employer] [facility] - 03/22/2025 4:37 AM CDT Troponin elevated. us Bandar Parsons MD CHEMISTRY ORDERABLES Final Res ult Performing Organization Address [facility] Co de Phone Number [facility] CLIA # [id number] [address] [address] [place] [address] * (ABNORMAL) BRAIN NATRIURETIC PEPTIDE, BNP OR PROBNP (03/21/2025 10:18 PM CDT) PROBNP, N TERMINAL 4,282(H) 0 - 125 pg/mL 03/21/2025 10:58 PM CDT [facility] Comment: INTERPRETIVE COMMENT based [...] Parsons MD CHEMISTRY ORDERABLES Final Res ult [id number] [address] [place] [address] * (ABNORMAL) COMPREHENSIVE METABOLIC PANEL (03/21/2025 10:18 PM CDT) Pathologist [facility] SODIUM 141 136 - 145 mmol/L 03/21/2025 10:58 PM CDT [facility] POTASSIUM 4.5 3.5 - 5.1 mmol/L 03/21/2025 10:58 PM CDT [facility] CHLORIDE 100 98 - 107 mmol/L 03/21/2025 10:58 PM CDT [facility] CO2 33(H) 22 - 29 mmol/L 03/21/2025 10:58 PM CDT [facility] CALCIUM 8.2(L) 8.8 - 10.2 mg/dL 03/21/2025 10:58 PM CDT [facility] BUN 24(H) 8 - 23 mg/dL 03/21/2025 10:58 PM [facility] CREATININE 1.20(H) 0.67 - 1.17 mg/dL 03/21/2025 10:58 PM [facility] Comment:The GFR result is no t clinically significant on patients <18 or >70 years of age. GLUCOSE 118(H) 74 - 99 mg/dL 03/21/2025 10:58 PM [facility] TOTAL PROTEIN 8.5(H) 6.4 - 8.3 g/dL 03/21/2025 10:58 PM [facility] ALBUMIN 2.8(L) 3.5 - 5.2 g/dL 03/21/2025 10:58 PM [facility] BILIRUBIN TOTAL 0.2 0.0 - 1.0 mg/dL 03/21/2025 10:58 PM [facility] ALKALINE PHOSPHATASE 141(H) 40 - 129 U/L 03/21/2025 10:58 PM [facility] AST 9(L) 10 - 50 U/L 03/21/2025 10:58 PM [facility] ALT 6 <=50 U/L 03/21/2025 10:58 PM [facility] GFR >60 mL/min/1. 73 sq meter 03/21/2025 10:58 PM [facility] Comment:eGFR calculated with 2020 CKD-EPI equation. Vegetarian diet, extremely high or low muscle mass, and may affect results. Cystatin C with Glomerular Filtration Rate is a suitable alternative for these patients. ANION GAP 8(L) 9 - 20 mmol/L 03/21/2025 10:58 PM [facility] Blood Venipuncture / Unknown 03/21/2025 10:18 PM CDT 03/21/2025 10:23 PM CDT us Bandar Parsons MD CHEMISTRY ORDERABLES Final Res ult [facility] CLIA # [id number] [address] [facility] [place] [address] * EKG 12-LEAD (03/21/2025 10:11 PM CDT) 03/21/2025 10:1 1 PM CDT Narrative INTERFACE SYSTEM - 03/23/2025 1:02 PM CDT [address] [address] Test Date: 2025-03-21 Pat Name: ISREAL QURESHIHISON Department: 11 Room: Gender: Male Level Vial Inside Grinder: [id number] : 1950 Requested By: Order Number: [id number] Reading MD: Inessa Zamarripa Measurements Intervals [place] Rate: 64 P: 53 DC: 174 QRS: -6 QRSD: 98 T: -77 QT: 434 QTc: 447 Interpretive Statements Sinus rhythm with premature atrial complexes Low voltage QRS Cannot rule out Anterior infarct, age undetermined Abnormal ECG Electronically Signed On 03-23-2025 13:02:21 CDT by Inessa Zamarripa Procedure Note Provider, Historical - 03/23/[address] [address] Test Date: 2025-03-21 Pat Name: ISREAL QURESHIHISON Department: 11 Room: Gender: Male Level Vial Inside Grinder: [id number] : 1950 Requested By: Order Number: [id number] Reading BAO Zamarripa Measurements Intervals [place] Rate: 64 P: 53 DC: 174 QRS: -6 QRSD: 98 T: -77 QT: 434 QTc: 447 Interpretive Statements Sinus rhythm with premature atrial complexes Low voltage QRS Cannot rule out Anterior infarct, age undetermined Abnormal ECG Electronically Signed On 03-23-2025 13:02:21 CDT by Inessa Zamarripa us Bandar Parsons MD ECG ORDERABLES Final Result INTERFACE SYSTEM Refer to clinic/hospital department * ENDOSCOPY, COLON, SCREENING (07/11/2013 12:39 PM PATIENT ACCOUNT LIAISON) 07/11/2013 12:3 9 PM PATIENT ACCOUNT LIAISON Narrative Procedure Note Demetri Chávez MD - 07/10/2013 12:00 AM CST Procedures signed by Demetri Chávez MD at 07/11/2013 12:39 PM Author: Demetri Chávez MD Service: -- Author Type: Physician Filed: 07/11/2013 12:39 PM Date of Service: 07/10/2013 5:25 PM Status:Signed Cheese Blender: Demetri Chávez MD (Physician) Procedure Orders 1. ENDOSCOPY, COLON, MEDICARE SCREENING (WELLNESS) [[id number]] ordered byat 07/01/[address] [place] [address] Patient: ISREAL ARGUELLO CSN: [id number] : 1950 Provider: Demetri Chávez MD ENDOSCOPY [...] otherwise unremarkablecolonoscopy. Demetri Chávez MD MMODL D: [id number] V: [id number] cc: Roshan Jimenez DO Roshan Jimenez DO GI PROCEDURE ORDERABLES Fin al Result [facility] from Last 3 Months or Most Recently Relevant to Health Maintenance Insurance MEDICAID [place] MEDICARE PART A AND B RX [employer] RX Member Subscriber Plan / Payer (Ef fective 2023-Present) Name:Isreal Arguello Gui Relation to Subscriber:Self Name:Isreal Arguello Payer ID:Not on file Group ID:[id number] Type:RX Commercial Address: [address] Advance Directives For more information, please contact: [phone] * NO CPR (In Event of Cardiopulmonary [...]
--- OUTSIDE RECORDS SUMMARY | 2025-06-18 13:01 | XMS_ITS | Encounter Summary ---
Author Organization [facility] Address [address] [place] [address] Care Team Providers Care Money Manager Name Role Phone Roshan Jimenez DO Primary Care Provider Unav ailable Encounter Details Date Type Department Care Team (Latest Contact Info) Description 01/01/2001 Outpatient [facility] [phone] [place] [address] Roshan Jimenez DO NO ADDRESS ON FILE Obstructive chronic bronchitis with exacerbation (CMS/HCC) (Primary Dx); Depressive disorder, not elsewhere classified; Edema; Unspecified essential hypertension Social History Tobacco Use Types Packs/Day Years Used Date Smoking Tobacco: Never Assessed Sex and Gender Information Value Date Recorded Sex Assigned at Not on file Legal Sex Male 4:59 AM HEAD OF 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
--- OUTSIDE RECORDS SUMMARY | 2025-06-18 13:01 | XMS_ITS | Encounter Summary ---
Author Organization [employer] ([employer]) Address [address] 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
--- OUTSIDE RECORDS SUMMARY | 2025-06-18 13:01 | XMS_ITS | Encounter Summary ---
Author Organization [employer] Address [address] [facility] Attn: [place] [address] Care Team Providers Care Vocational Coordinator Name Role Phone Roshan Jimenez DO Primary Care Provider Unav ailable Encounter Details Date Type Department Care Team (Latest Contact Info) Description 12/11/2000 Emergency Jose Galarza DO [address] [place] [address] Social History Tobacco Use Types Packs/Day Years Used Date Smoking Tobacco: Never Assessed Sex and Gender Information Value Date Recorded Sex Assigned at Not on file Legal Sex Male 4:59 AM [employer] Gender Identity Not on file Sexual Orientation Not on file documented as of this encounter Plan of Treatment Not on file documented as of this encounter Visit Diagnoses Not on filedocumented in this encounter Care Teams Vocational Coordinator Relationship Specialty Start Date End Date Roshan Jimenez DO NO ADDRESS ON FILE PCP - General 03/26/03 documented as of this encounter
--- OUTSIDE RECORDS SUMMARY | 2025-06-18 13:01 | XMS_ITS | Encounter Summary ---
Author Organization [facility] Address [address] [place] [address] Care Team Providers Care Speeder Frame Tender Name Role Phone Roshan Jimenez DO Primary Care Provider Unav ailable Encounter Details Date Type Department Care Team (Latest Contact Info) Description 02/15/2005 Outpatient Historical [facility] [address] [place] [address] Roshan Jimenez DO NO ADDRESS ON FILE CORONARY ATHEROSCLER UNSPEC VESSEL (Primary Dx) Social History Tobacco Use Types Packs/Day Years Used Date Smoking Tobacco: Never Assessed Sex and Gender Information Value Date Recorded Sex Assigned at Not on file Legal Sex Male 4:59 AM LEAD 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
--- OUTSIDE RECORDS SUMMARY | 2025-06-18 13:01 | XMS_ITS | Encounter Summary ---
Author Organization [facility] Address [address] [place] [address] Care Team Providers Care Co Pilot Name Role Phone Roshan Jimenez DO Primary Care Provider Unav ailable Encounter Details Date Type Department Care Team (Latest Contact Info) Description 02/15/2005 Outpatient [facility] [address] [place] [address] Roshan Jimenez DO NO ADDRESS ON FILE CHRONIC AIRWAY OBSTRUCTION NEC ([facility]) (Primary Dx); OBESITY NOS; HYPERTENSION NOS; OTHER UNSPEC SLEEP APNEA Social History Tobacco Use Types Packs/Day Years Used Date Smoking Tobacco: Never Assessed Sex and Gender Information Value Date Recorded Sex Assigned at Not on file Legal Sex Male 4:59 AM HEEL BRUSHER Gender Identity Not on file Sexual Orientation Not on file documented as of this encounter Plan of Treatment Not on file documented as of this encounter Visit Diagnoses Diagnosis Chronic airway obstruction, not elsewhere classified ([facility])- Primary Chronic airway obstruction, not elsewhere classified Obesity, unspecified Unspecified essential hypertension Unspecified sleep apnea documented in this encounter Care Teams Co Pilot Relationship Specialty Start Date End Date Roshan Jimenez DO NO ADDRESS ON FILE PCP - General 03/26/03 documented as of this encounter
--- OUTSIDE RECORDS SUMMARY | 2025-06-18 13:01 | XMS_ITS | Encounter Summary ---
Author Organization [facility] Address [address] [place] [address] Care Team Providers Care Electric Freight Car Operator Name Role Phone Roshan Jimenez DO [...] file Legal Sex Male 4:59 AM RISK MODELER Gender Identity Not on file Sexual Orientation Not on file documented as of this encounter Plan of Treatment Not on file documented as of this encounter Visit Diagnoses Diagnosis Other chest pain- Primary documented in this encounter Care Teams Electric Freight Car Operator Relationship Specialty Start Date End Date Roshan Jimenez DO NO ADDRESS ON FILE PCP - General 03/26/03 documented as of this encounter
--- OUTSIDE RECORDS SUMMARY | 2025-06-18 13:01 | XMS_ITS | Encounter Summary ---
Author Organization [facility] Address [address] [place] [address] Care Team Providers Care Real Estate Associate Attorney Name Role Phone Roshan Jimenez DO Primary Care Provider Unav ailable Encounter Details Date Type Department Care Team (Latest Contact Info) Description 02/12/2001 Outpatient [facility] [address] [place] [address] Roshan Jimenez DO NO ADDRESS ON FILE Unspecified asthma(493.90) (Primary Dx); Chronic airway obstruction, not elsewhere classified ([facility]) Social History Tobacco Use Types Packs/Day Years Used Date Smoking Tobacco: Never Assessed Sex and Gender Information Value Date Recorded Sex Assigned at Not on file Legal Sex Male 4:59 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
--- OUTSIDE RECORDS SUMMARY | 2025-06-18 13:01 | XMS_ITS | Encounter Summary ---
Author Organization [facility] Address [address] [place] [address] Care Team Providers Care Barrel Rifler Button Name Role Phone Roshan Jimenez DO Primary Care Provider Unav ailable Encounter Details Date Type Department Care Team (Latest Contact Info) Description 11/13/2002 Outpatient [facility] [place] [address] [place] [address] Noé Rosa, DPM [address] [place] [address] Onychia of toe (Primary Dx); INGROWING NAIL Social History Tobacco Use Types Packs/Day Years Used Date Smoking Tobacco: Never Assessed Sex and Gender Information Value Date Recorded Sex Assigned at Not on file Legal Sex Male 4:59 AM NURSE ANESTHESIA PROGRAM DIRECTOR Gender Identity Not on file Sexual Orientation Not on file documented as of this encounter Plan of Treatment Not on file documented as of this encounter Visit Diagnoses Diagnosis Onychia of toe- Primary Onychia and paronychia of toe Ingrowing nail documented in this encounter Care Teams Barrel Rifler Button Relationship Specialty Start Date End Date Roshan Jimenez DO NO ADDRESS ON FILE PCP - General 03/26/03 documented as of this encounter
--- OUTSIDE RECORDS SUMMARY | 2025-06-18 13:01 | XMS_ITS | Encounter Summary ---
Author Organization [facility] Address [address] [place] [address] Care Team Providers Care Stem Dryer Maintainer Name Role Phone Roshan Jimenez DO Primary Care Provider Unav ailable Encounter Details Date Type Department Care Team (Latest Contact Info) Description 01/30/[address] [facility] [address] [place] [address] Roshan Jimenez DO NO ADDRESS ON FILE CHRONIC AIRWAY OBSTRUCTION NEC ([facility]) (Primary Dx); HYPERTENSION NOS; OTHER UNSPEC SLEEP APNEA; OSTEOARTHROS NOS-UNSPEC Social History Tobacco Use Types Packs/Day Years Used Date Smoking Tobacco: Never Assessed Sex and Gender Information Value Date Recorded Sex Assigned at Not on file Legal Sex Male 4:59 AM CENTRAL COMMUNICATIONS SPECIALIST Gender Identity Not on file Sexual Orientation Not on file documented as of this encounter Plan of Treatment Not on file documented as of this encounter Visit Diagnoses Diagnosis Chronic airway obstruction, not elsewhere classified ([facility]/H[facility])- Primary Chronic airway obstruction, not elsewhere classified Unspecified essential hypertension Unspecified sleep apnea Osteoarthrosis, unspecified whether generalized or localized, unspecified site documented in this encounter Care Teams Stem Dryer Maintainer Relationship Specialty Start Date End Date Roshan Jimenez DO NO ADDRESS ON FILE PCP - General 03/26/03 documented as of this encounter
--- OUTSIDE RECORDS SUMMARY | 2025-06-18 13:01 | XMS_ITS | Encounter Summary ---
Author Organization [facility] Address [address] [place] [address] Care Team Providers Care B2B Outside Sales Representative Name Role Phone Roshan Jimenez DO Primary Care Provider Unav ailable Encounter Details Date Type Department Care Team (Latest Contact Info) Description 05/29/2001 Outpatient [facility] [address] [place] [address] Roshan Jimenez DO NO ADDRESS ON FILE Unspecified essential hypertension (Primary Dx); Depressive disorder, not elsewhere classified; Chronic airway obstruction, not elsewhere classified (CMS/HCC) Social History Tobacco Use Types Packs/Day Years Used Date Smoking Tobacco: Never Assessed Sex and Gender Information Value Date Recorded Sex Assigned at Not on file Legal Sex Male 4:59 AM PUBLICATIONS DESIGNER Gender Identity Not on file Sexual Orientation Not on file documented as of this encounter Plan of Treatment Not on file documented as of this encounter Visit Diagnoses Diagnosis Unspecified essential hypertension- Primary Depressive disorder, not elsewhere classified Chronic airway obstruction, not elsewhere classified (CMS/HCC) Chronic airway obstruction, not elsewhere classified documented in this encounter Care Teams B2B Outside Sales Representative Relationship Specialty Start Date End Date Roshan Jimenez DO NO ADDRESS ON FILE PCP - General 03/26/03 documented as of this encounter
--- OUTSIDE RECORDS SUMMARY | 2025-06-18 13:01 | XMS_ITS | Encounter Summary ---
Author Organization [facility] Address [address] [place] [address] Care Team Providers Care Locket Maker Name Role Phone Roshan Jimenez DO Primary Care Provider Unav ailable Encounter Details Date Type Department Care Team (Latest Contact Info) Description 03/09/2005 Outpatient Historical [facility] [address] [place] [address] [place] [address] Zofia Gleason, PRESENTATION DESIGNER [address] [place] [address] HYPERSOMNI W SLEEP APNEA (Primary Dx) Social History Tobacco Use Types Packs/Day Years Used Date Smoking Tobacco: Never Assessed Sex and Gender Information Value Date Recorded Sex Assigned at Not on file Legal Sex Male 4:59 AM BRIDGE GAME DIRECTOR Gender Identity Not on file Sexual Orientation Not on file documented as of this encounter Plan of Treatment Not on file documented as of this encounter Visit Diagnoses Diagnosis Hypersomnia with sleep apnea, unspecified- Primary documented in this encounter Care Teams Locket Maker Relationship Specialty Start Date End Date Roshan Jimenez DO NO ADDRESS ON FILE PCP - General 03/26/03 documented as of this encounter
--- OUTSIDE RECORDS SUMMARY | 2025-06-18 13:01 | XMS_ITS | Encounter Summary ---
Author Organization [facility] Address [address] [place] [address] Care Team Providers Care Business Process Lead Name Role Phone Roshan Jimenez DO Primary Care Provider Unav ailable Encounter Details Date Type Department Care Team (Latest Contact Info) Description 05/30/2002 Outpatient [facility] [address] [place] [address] Roshan Jimenez DO NO ADDRESS ON FILE CHRONIC AIRWAY OBSTRUCTION NEC ([facility] [place] [facility]) (Primary Dx); OBESITY NOS; LUMBAGO; VACCINE FOR INFLUENZA Social History Tobacco Use Types Packs/Day Years Used Date Smoking Tobacco: Never Assessed Sex and Gender Information Value Date Recorded Sex Assigned at Not on file Legal Sex Male 4:59 AM GRAPHIC ARTIST Gender Identity Not on file Sexual Orientation Not on file documented as of this encounter Plan of Treatment Not on file documented as of this encounter Visit Diagnoses Diagnosis Chronic airway obstruction, not elsewhere classified ([facility] [place] [facility])- Primary Chronic airway obstruction, not elsewhere classified Obesity, unspecified Lumbago Need vaccination-viral disease Need for prophylactic vaccination and inoculation against other viral diseases documented in this encounter Care Teams Business Process Lead Relationship Specialty Start Date End Date Roshan Jimenez DO NO ADDRESS ON FILE PCP - General 03/26/03 documented as of this encounter
--- OUTSIDE RECORDS SUMMARY | 2025-06-18 13:01 | XMS_ITS | Encounter Summary ---
Author Organization [facility] Address [address] [place] [address] Care Team Providers Care Legal Specialist Name Role Phone Roshan Jimenez DO Primary Care Provider Unav ailable Encounter Details Date Type Department Care Team (Latest Contact Info) Description 12/25/2000 Outpatient [facility] [address] [place] [address] Roshan Jimenez DO NO ADDRESS ON FILE Obstructive chronic bronchitis with exacerbation (CMS/HCC) (Primary Dx); Unspecified chronic bronchitis (CMS/HCC); Unspecified sleep apnea; Obesity, unspecified Social History Tobacco Use Types Packs/Day Years Used Date Smoking Tobacco: Never Assessed Sex and Gender Information Value Date Recorded Sex Assigned at Not on file Legal Sex Male 4:59 AM SHIPPING LEAD PERSON Gender Identity Not on file Sexual Orientation Not on file documented as of this encounter Plan of Treatment Not on file documented as of this encounter Visit Diagnoses Diagnosis Obstructive chronic bronchitis with exacerbation (CMS/HCC)- Primary Obstructive chronic bronchitis with exacerbation Unspecified chronic bronchitis (CMS/HCC) Unspecified chronic bronchitis Unspecified sleep apnea Obesity, unspecified documented in this encounter Care Teams Legal Specialist Relationship Specialty Start Date End Date Roshan Jimenez DO NO ADDRESS ON FILE PCP - General 03/26/03 documented as of this encounter
--- OUTSIDE RECORDS SUMMARY | 2025-06-18 13:01 | XMS_ITS | Encounter Summary ---
Author Organization [facility] Address [address] [place] [address] Care Team Providers Care Final Inspector Shuttle Name Role Phone Roshan Jimenez DO Primary Care Provider Unav ailable Encounter Details Date Type Department Care Team (Latest Contact Info) Description 12/08/2000 Outpatient [facility] [address] [place] [id number] Roshan Jimenez DO NO ADDRESS ON FILE Anxiety state, unspecified (Primary Dx); Depressive disorder, not elsewhere classified; Acute bronchitis; Chronic airway obstruction, not elsewhere classified (CMS/HCC) Social History Tobacco Use Types Packs/Day Years Used Date Smoking Tobacco: Never Assessed Sex and Gender Information Value Date Recorded Sex Assigned at Not on file Legal Sex Male 4:59 AM 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 FUR DRESSING Gender Identity Not on file Sexual Orientation Not on file documented as of this encounter Plan of Treatment Not on file documented as of this encounter Visit Diagnoses Diagnosis Anxiety state, unspecified- Primary Depressive disorder, not elsewhere classified Acute bronchitis Chronic airway obstruction, not elsewhere classified (CMS/HCC) Chronic airway obstruction, not elsewhere classified documented in this encounter Care Teams Final Inspector Shuttle Relationship Specialty Start Date End Date Roshan Jimenez DO NO ADDRESS ON FILE PCP - General 03/26/03 documented as of this encounter
--- OUTSIDE RECORDS SUMMARY | 2025-06-18 13:01 | XMS_ITS | Encounter Summary ---
Author Organization [facility] Address [address] [place] [address] Care Team Providers Care Elementary Esl Teacher Name Role Phone Roshan Jimenez DO Primary Care Provider Unav ailable Encounter Details Date Type Department Care Team (Latest Contact Info) Description 07/31/2001 Outpatient [facility] [address] [place] [address] Roshan Jimenez DO NO ADDRESS ON FILE HYPERTENSION NOS (Primary Dx); VACCINE FOR INFLUENZA Social History Tobacco Use Types Packs/Day Years Used Date Smoking Tobacco: Never Assessed Sex and Gender Information Value Date Recorded Sex Assigned at Not on file Legal Sex Male 4:59 AM STRADDLE BUG OPERATOR Gender Identity Not on file Sexual Orientation Not on file documented as of this encounter Plan of Treatment Not on file documented as of this encounter Visit Diagnoses Diagnosis Unspecified essential hypertension- Primary Need vaccination-viral disease Need for prophylactic vaccination and inoculation against other viral diseases documented in this encounter Care Teams Elementary Esl Teacher Relationship Specialty Start Date End Date Roshan Jimenez DO NO ADDRESS ON FILE PCP - General 03/26/03 documented as of this encounter
--- OUTSIDE RECORDS SUMMARY | 2025-06-18 13:01 | XMS_ITS | Encounter Summary ---
Author Organization [facility] Address [address] Attn: [place] [address] Care Team Providers Care Test Eng Name Role Phone Roshan Jimenez DO [...] file Legal Sex Male 4:59 AM PUMP ROOM OPERATOR Gender Identity Not on file Sexual Orientation Not on file documented as of this encounter Plan of Treatment Not on file documented as of this encounter Visit Diagnoses Not on filedocumented in this encounter Care Teams Test Eng Relationship Specialty Start Date End Date Roshan Jimenez DO NO ADDRESS ON FILE PCP - General 03/26/03 documented as of this encounter
--- OUTSIDE RECORDS SUMMARY | 2025-06-18 13:01 | XMS_ITS | Encounter Summary ---
Author Organization [facility] Address [address] [place] [address] Care Team Providers Care Forest Supervisor Name Role Phone Roshan Jimenez DO Primary Care Provider Unav ailable Encounter Details Date Type Department Care Team (Latest Contact Info) Description 07/15/2002 Outpatient [facility] [address] [place] [address] Roshan Jimenez DO NO ADDRESS ON FILE OBSTR CHR BRONCHITIS W AC EXACERB (CMS/HCC) (Primary Dx); HYPERTENSION NOS Social History Tobacco Use Types Packs/Day Years Used Date Smoking Tobacco: Never Assessed Sex and Gender Information Value Date Recorded Sex Assigned at Not on file Legal Sex Male 4:59 AM GRANT OFFICER Gender Identity Not on file Sexual Orientation Not on file documented as of this encounter Plan of Treatment Not on file documented as of this encounter Visit Diagnoses Diagnosis Obstructive chronic bronchitis with exacerbation (CMS/HCC)- Primary Obstructive chronic bronchitis with exacerbation Unspecified essential hypertension documented in this encounter Care Teams Forest Supervisor Relationship Specialty Start Date End Date Roshan Jimenez DO NO ADDRESS ON FILE PCP - General 03/26/03 documented as of this encounter
--- OUTSIDE RECORDS SUMMARY | 2025-06-18 13:01 | XMS_ITS | Encounter Summary ---
Author Organization [facility] Address [address] [place] [address] Care Team Providers Care Oxygen Tank Filler Name Role Phone Roshan Jimenez DO Primary [...] on file Legal Sex Male 4:59 AM FIRST ASSISTANT MANAGER Gender Identity Not on file Sexual Orientation Not on file documented as of this encounter Plan of Treatment Not on file documented as of this encounter Visit Diagnoses Diagnosis Bronchitis, not specified as acute or chronic- Primary Other and unspecified hyperlipidemia Inhibited sex excitement Psychosexual dysfunction with inhibited sexual excitement Unspecified essential hypertension documented in this encounter Care Teams Oxygen Tank Filler Relationship Specialty Start Date End Date Roshan Jimenez DO NO ADDRESS ON FILE PCP - General 03/26/03 documented as of this encounter
[2025-06-18 13:02] LABS: ABG PCO2 101.0 mmHg (35-45)
--- OUTSIDE RECORDS SUMMARY | 2025-06-18 13:02 | XMS_ITS | Encounter Summary ---
Author Organization [facility] Address [address] [place] [address] Care Team Providers Care Proof Technician Helper Name Role Phone Roshan Jimenez DO Primary Care Provider Unav ailable Encounter Details Date Type Department Care Team (Late st Contact Info) Description 01/10/2000 Outpatient Historical [facility] [address] [place] [address] [place] [phone] Social History Tobacco Use Types Packs/Day Years Used Date Smoking Tobacco: Never Assessed Sex and Gender Information Value Date Recorded Sex Assigned at Not on file Legal Sex Male 4:59 AM WOOD SKI MAKER Gender Identity Not on file Sexual Orientation Not on file documented as of this encounter Plan of Treatment Not on file documented as of this encounter Visit Diagnoses Not on filedocumented in this encounter Care Teams Proof Technician Helper Relationship Specialty Start Date End Date Roshan Jimenez DO NO ADDRESS ON FILE PCP - General 03/26/03 documented as of this encounter
--- OUTSIDE RECORDS SUMMARY | 2025-06-18 13:02 | XMS_ITS | Encounter Summary ---
Author Organization [facility] Address [address] Attn: [place] [address] Care Team Providers Care Oilseed Meat Presser Name Role Phone Roshan Jimenez DO Primary Care Provider Unav ailable Encounter Details Date Type Department Care Team (Late st Contact Info) Description 04/02/2000 Outpatient Historical Roshan Jimeenz DO NO ADDRESS ON FILE Social History Tobacco Use Types Packs/Day Years Used Date Smoking Tobacco: Never Assessed Sex and Gender Information Value Date Recorded Sex Assigned at Not on file Legal Sex Male 4:59 AM JAVA J2EE LEAD Gender Identity Not on file Sexual Orientation Not on file documented as of this encounter Plan of Treatment Not on file documented as of this encounter Visit Diagnoses Not on filedocumented in this encounter Care Teams Oilseed Meat Presser Relationship Specialty Start Date End Date Roshan Jimenez DO NO ADDRESS ON FILE PCP - General 03/26/03 documented as of this encounter
--- OUTSIDE RECORDS SUMMARY | 2025-06-18 13:02 | XMS_ITS | Encounter Summary ---
Author Organization [facility] Address [address] [place] [address] Care Team Providers Care Power Plant Mechanic Name Role Phone Roshan Jimenez DO Primary Care Provider Unav ailable Encounter Details Date Type Department Care Team (Late st Contact Info) Description 12/30/2009 Ancillary Orders [facility] Orthopedics- [address] [place] [address] Yusef Malagon MD NO ADDRESS ON FILE Pain Social History Tobacco Use Types Packs/Day Years Used Date Smoking Tobacco: Every Day Cigarettes 1 42 Alcohol Use Standard Drinks/Week Comments Yes 0 (1 standard drink = 0.6 oz pur e alcohol) Rare Sex and Gender Information Value Date Recorded Sex Assigned at Not on file Legal Sex Male 4:59 AM CRAYON SAWYER Gender Identity Not on file Sexual Orientation [...] pain documented in this encounter Care Teams Power Plant Mechanic Relationship Specialty Start Date End Date Roshan Jimenez DO NO ADDRESS ON FILE PCP - General 03/26/03 documented as of this encounter
--- OUTSIDE RECORDS SUMMARY | 2025-06-18 13:02 | XMS_ITS | Encounter Summary ---
Author Organization [facility] Address [address] [place] [address] Care Team Providers Care Air Defence Officer Name Role Phone Roshan Jimenez DO Primary Care Provider Unav ailable Encounter Details Date Type Department Care Team (Late st Contact Info) Description 12/23/1999 Outpatient Historical [facility] Social History Tobacco Use Types Packs/Day Years Used Date Smoking Tobacco: Never Assessed Sex and Gender Information Value Date Recorded Sex Assigned at Not on file Legal Sex Male 4:59 AM COUNTY TAX ASSESSOR Gender Identity Not on file Sexual Orientation Not on file documented as of this encounter Plan of Treatment Not on file documented as of this encounter Visit Diagnoses Not on filedocumented in this encounter Care Teams Air Defence Officer Relationship Specialty Start Date End Date Roshan Jimenez DO NO ADDRESS ON FILE PCP - General 03/26/03 documented as of this encounter
--- OUTSIDE RECORDS SUMMARY | 2025-06-18 13:02 | XMS_ITS | Encounter Summary ---
Author Organization [facility] Address [address] [place] [address] Care Team Providers Care Manager File Name Role Phone Roshan Jimenez DO Primary Care Provider Unav ailable Encounter Details Date Type Department Care Team (Latest Contact Info) Description 07/06/2000 Outpatient Historical [facility] Dermatology- [facility] [address] [place] [phone] Irineo Snyder MD NO ADDRESS ON FILE Hidradenitis (Primary Dx); Benign miguel skin trunk Social History Tobacco Use Types Packs/Day Years Used Date Smoking Tobacco: Never Assessed Sex and Gender Information Value Date Recorded Sex Assigned at Not on file Legal Sex Male 4:59 AM AUDIO VISUAL ARTS DIRECTOR Gender Identity Not on file Sexual Orientation Not on file documented as of this encounter Plan of Treatment Not on file documented as of this encounter Visit Diagnoses Diagnosis Hidradenitis- Primary Benign miguel skin trunk Benign neoplasm of skin of trunk, except scrotum documented in this encounter Care Teams Manager File Relationship Specialty Start Date End Date Roshan Jimenez DO NO ADDRESS ON FILE PCP - General 03/26/03 documented as of this encounter
--- OUTSIDE RECORDS SUMMARY | 2025-06-18 13:02 | XMS_ITS | Encounter Summary ---
Author Organization [facility] Address [address] [place] [address] Care Team Providers Care Foundry Molder Name Role Phone Roshan Jimenez DO Primary Care Provider Unav ailable Encounter Details Date Type Department Care Team (Late st Contact Info) Description 04/02/2000 Outpatient Historical [facility] [address] [place] [address] [place] [phone] Social History Tobacco Use Types Packs/Day Years Used Date Smoking Tobacco: Never Assessed Sex and Gender Information Value Date Recorded Sex Assigned at Not on file Legal Sex Male 4:59 AM CABLE ASSEMBLER AND SWAGER Gender Identity Not on file Sexual Orientation Not on file documented as of this encounter Plan of Treatment Not on file documented as of this encounter Visit Diagnoses Not on filedocumented in this encounter Care Teams Foundry Molder Relationship Specialty Start Date End Date Roshan Jimenez DO NO ADDRESS ON FILE PCP - General 03/26/03 documented as of this encounter
--- OUTSIDE RECORDS SUMMARY | 2025-06-18 13:02 | XMS_ITS | Encounter Summary ---
Author Organization [facility] Address [address] [place] [address] Care Team Providers Care Shingle Cutter Name Role Phone Roshan Jimenez DO Primary Care Provider Unav ailable Encounter Details Date Type Department Care Team (Latest Contact Info) Description 05/23/2000 Outpatient Historical [facility] Dermatology- [facility] [address] [place] [phone] Irineo Snyder MD NO ADDRESS ON FILE Hidradenitis (Primary Dx); Benign miguel skin trunk Social History Tobacco Use Types Packs/Day Years Used Date Smoking Tobacco: Never Assessed Sex and Gender Information Value Date Recorded Sex Assigned at Not on file Legal Sex Male 4:59 AM TECHNICAL ADVISOR Gender Identity Not on file Sexual Orientation Not on file documented as of this encounter Plan of Treatment Not on file documented as of this encounter Visit Diagnoses Diagnosis Hidradenitis- Primary Benign miguel skin trunk Benign neoplasm of skin of trunk, except scrotum documented in this encounter Care Teams Shingle Cutter Relationship Specialty Start Date End Date Roshan Jimenez DO NO ADDRESS ON FILE PCP - General 03/26/03 documented as of this encounter
--- OUTSIDE RECORDS SUMMARY | 2025-06-18 13:02 | XMS_ITS | Encounter Summary ---
Author Organization [facility] Address [address] [place] [address] Care Team Providers Care Gi Asst Name Role Phone Roshan Jimenez DO Primary Care Provider Unav ailable Encounter Details Date Type Department Care Team (Late st Contact Info) Description 02/24/2000 Outpatient Historical [facility] [address] [place] [address] [place] [phone] Social History Tobacco Use Types Packs/Day Years Used Date Smoking Tobacco: Never Assessed Sex and Gender Information Value Date Recorded Sex Assigned at Not on file Legal Sex Male 4:59 AM SALES ORDER ADMINISTRATOR Gender Identity Not on file Sexual Orientation Not on file documented as of this encounter Plan of Treatment Not on file documented as of this encounter Visit Diagnoses Not on filedocumented in this encounter Care Teams Gi Asst Relationship Specialty Start Date End Date Roshan Jimenez DO NO ADDRESS ON FILE PCP - General 03/26/03 documented as of this encounter
--- OUTSIDE RECORDS SUMMARY | 2025-06-18 13:02 | XMS_ITS | Encounter Summary ---
Author Organization [facility] Address [address] [place] [address] Care Team Providers Care Underground Bolting Machine Operator Name Role Phone Roshan Jimenez DO Primary Care Provider Unav ailable Encounter Details Date Type Department Care Team (Latest Contact Info) Description 03/22/2000 Outpatient Historical [facility] [phone] [place] [phone] Roshan Jimenez DO NO ADDRESS ON FILE Unspecified essential hypertension (Primary Dx); Chronic airway obstruction, not elsewhere classified (CMS/HCC); Transient tic disorder; Osteoarthrosis, unspecified whether generalized or localized, unspecified site Social History Tobacco Use Types Packs/Day Years Used Date Smoking Tobacco: Never Assessed Sex and Gender Information Value Date Recorded Sex Assigned at Not on file Legal Sex Male 4:59 AM STONEMASON SUPERVISOR Gender Identity Not on file Sexual [...] site documented in this encounter Care Teams Underground Bolting Machine Operator Relationship Specialty Start Date End Date Roshan Jimenez DO NO ADDRESS ON FILE PCP - General 03/26/03 documented as of this encounter
--- OUTSIDE RECORDS SUMMARY | 2025-06-18 13:02 | XMS_ITS | Encounter Summary ---
Author Organization [facility] Address [address] [facility] Attn: [place] [address] Care Team Providers Care Industrial Chemistry Teacher Name Role Phone Roshan Jimenez DO [...] file Legal Sex Male 4:59 AM COST CONTROLLER Gender Identity Not on file Sexual Orientation Not on file documented as of this encounter Plan of Treatment Not on file documented as of this encounter Visit Diagnoses Not on filedocumented in this encounter Care Teams Industrial Chemistry Teacher Relationship Specialty Start Date End Date Roshan Jimenez DO NO ADDRESS ON FILE PCP - General 03/26/03 documented as of this encounter
--- OUTSIDE RECORDS SUMMARY | 2025-06-18 13:02 | XMS_ITS | Encounter Summary ---
Author Organization [facility] Address [address] [facility] Attn: [place] [address] Care Team Providers Care Systems Project Manager Name Role Phone Roshan Jimenez [...] on file Legal Sex Male 4:59 AM HOMEOWNER ASSOCIATION MANAGER Gender Identity Not on file Sexual Orientation Not on file documented as of this encounter Plan of Treatment Not on file documented as of this encounter Visit Diagnoses Not on filedocumented in this encounter Care Teams Systems Project Manager Relationship Specialty Start Date End Date Roshan Jimenez DO NO ADDRESS ON FILE PCP - General 03/26/03 documented as of this encounter
--- OUTSIDE RECORDS SUMMARY | 2025-06-18 13:03 | XMS_ITS | Encounter Summary ---
Author Organization [facility] Address [address] [place] [address] Care Team Providers Care Home Aide Name Role Phone Roshan Jimenez DO Primary Care Provider Unav ailable Encounter Details Date Type Department Care Team (Latest Contact Info) Description 05/17/2000 Outpatient Historical [facility] [address] [place] [address] [place] [phone] Merlin Reilly MD NO ADDRESS ON FILE Hypersomnia with sleep apnea, unspecified (Primary Dx) Social History Tobacco Use Types Packs/Day Years Used Date Smoking Tobacco: Never Assessed Sex and Gender Information Value Date Recorded Sex Assigned at Not on file Legal Sex Male 4:59 AM EDUCATIONAL RECRUITER Gender Identity Not on file Sexual Orientation Not on file documented as of this encounter Plan of Treatment Not on file documented as of this encounter Visit Diagnoses Diagnosis Hypersomnia with sleep apnea, unspecified- Primary documented in this encounter Care Teams Home Aide Relationship Specialty Start Date End Date Roshan Jimenez DO NO ADDRESS ON FILE PCP - General 03/26/03 documented as of this encounter
--- OUTSIDE RECORDS SUMMARY | 2025-06-18 13:03 | XMS_ITS | Clinical Summary ---
Author Organization [facility] [place] Address [address] [place] [address] Phone Care Team Providers Care Parts Lister Name Role Phone Roshan Jimenez DO Primary [...] on file Legal Sex Male 4:59 AM ANIMAL BEHAVIORIST Gender Identity Not on file Sexual Orientation [...] - Risk 50-74 years 1-dose series) 2002 COLORECTAL SCREENING 07/11/2023 07/11/2013, 07/10/2013, 03/26/2003, Additional history exists Colorectal Cancer Screening 07/11/2023 INFLUENZA VACCINE (#1) 2025 0, 06/01/2019, 06/01/2019, Additional history exists ZOSTER VACCINE Completed 11/26/2018, 09/24/2018 PNEUMOCOCCAL VACCINE 50+ YEARS Completed 1 09/19/2019, 06/01/2019, 06/01/2019, Additional history exists Procedures Procedure Name Priority Date/Time Associated Diagnosis Comments ENDOSCOPY, COLON, SCREENING Routine 07/11/2013 12:39 PM ANIMAL BEHAVIORIST Special screening for malignant neoplasms, colon from Last 3 Months or Most Recently Relevant to Health Maintenance Results * ENDOSCOPY, COLON, SCREENING (07/11/2013 12:39 PM ANIMAL BEHAVIORIST) Narrative Transcriptions Demetri Chávez MD - 07/10/2013 5:25 PM CST [place], [place] Patient: EDSON JAFFE CSN: [id number] : 1950 Provider: Demetri Chávez MD ENDOSCOPY [...] otherwise unremarkablecolonoscopy. Demetri Chávez MD MMODL D: [id number] V: [id number] cc: Roshan Jimenez DO Roshan Jimenez DO GI PROCEDURE ORDERABLES Fin al Result from Last 3 Months or Most Recently Relevant to Health Maintenance Insurance [place] [address] [place] [address] DUAL COMPLETE MCR HMO SNP Advance Directives For more information, please contact: [phone] * Full Code (Latest Code Status on [...] 12:22 PM 01/13/2010 11:02 PM Care Teams Parts Lister Relationship Specialty Start Date End Date Roshan Jimenez DO NO ADDRESS ON FILE PCP - General 03/26/03
--- NOTE | 2025-06-18 13:30 | PC.PHAR ---
Pt is from [facility]
[2025-06-18 13:36] LABS: Lactic Sepsis W/Reflex 1.3 mmol/L (0.5-2.2)
[2025-06-18] MEDS: cefTRIAXone 1,000 mg SDV 1000 MG IVP (14:15)
[2025-06-18] MEDS: LORazepam 1 MG/0.5 ML injection IVP ×2 (18:06→20:56)
--- NOTE | 2025-06-18 18:21 | PM.HP ---
Providers/Chief Complaint Admitting Physician: Cole Sheriff MD Primary Care Provider: Otilio Huang Chief Complaint: Resp Dist. History of Present Illness Edson Jaffe is a 74 year old male with recent discharge just 06/04/2025 for hypercapnic respiratory failure. According to last discharge summary patient has BiPAP nightly with 3 L/min oxygen at baseline but does not wear it at this senior care. I am at bedside with [id number] Chirag Collins, sister Yair Collins and sister Isabel Jean-Baptiste. They tell me that patient has not been ambulatory for months to years and though he has diabetes his desire has been to eat chips. He lost his muscle mass to lower extremities and became centrally obese. He said increasing difficulty breathing and is breathing fast all the time. Last night he was hallucinating then struggling to breathe and came and was put on BiPAP. They did not want him to struggle but did not understand the option for comfort medications I am told that he wears his BiPAP you are in the hospital gets better but then does not wear the BiPAP at the senior care. They tell me that he has some smaller machine with nasal prongs Review of Systems Narrative: States that he has confusion at times he knows who everybody is but thinks that he is being persecuted or that they are trying to kill him all the time. Isabel states that he she called him to state that unless she finds them they are trying to kill him Medications/Allergies Home Medications ?Medication ?Instructions ?Recorded ?Confirmed ?Last Taken ?Type albuterol sulfate 90 mcg/actuation 2 puff inhalation Q4H PRN 11/02/24 06/18/25 06/17/25 History aerosol inhaler Shortness Of Breath Or Wheezing aluminum-mag hydroxide-simethicone 30 ml PO Q2H PRN 11/02/24 06/18/25 04/05/25 History 400 mg-400 mg-40 mg/5 mL oral susp indigeston/heartburn/gas (Mylanta Maximum Strength) bisacodyl 10 mg rectal suppository 10 mg ME .Q72H PRN Constipation 11/02/24 06/18/25 Unknown History docusate sodium 100 mg capsule 100 mg PO BID 11/02/24 06/18/25 06/18/25 History (Colace) ergocalciferol (vitamin D2) 1,250 50,000 mcg PO Q30D 11/02/24 06/18/25 05/22/25 07:02 History mcg (50,000 unit) capsule fluticasone fur. 200 mcg-umeclid 1 inh inhalation DAILY 11/02/24 06/18/25 06/18/25 History 62.5 mcg-vilant 25 mcg inhalat.powder (Trelegy Ellipta) magnesium hydroxide 400 mg/5 mL 30 ml PO DAILY PRN Constipation 11/02/24 06/18/25 02/25/25 08:30 History oral suspension (Milk of Magnesia) multivitamin 1 tab PO QAM 11/02/24 06/18/25 06/18/25 History polyethylene glycol 3350 17 17 g PO DAILY PRN bowel management 11/02/24 06/18/25 11/20/24 History gram/dose oral powder (Miralax) sennosides 8.6 mg tablet (senna) 17.2 mg PO DAILY PRN Constipation 11/02/24 06/18/25 02/09/25 History acetaminophen 325 mg tablet 650 mg PO Q4H PRN elevated 12/06/24 06/18/25 06/11/25 History (Tylenol) temp/pain loperamide 2 mg tablet (Imodium 2 mg PO Q6H PRN Diarrhea 01/28/25 06/18/25 06/15/25 History A-D) oxycodone-acetaminophen 10 mg-325 1 tab PO Q6H PRN Pain 01/28/25 06/18/25 06/13/25 History mg tablet albuterol sulfate 2.5 mg/3 mL 2.5 mg continuous nebulization Q8H 03/05/25 06/18/25 06/18/25 History (0.083 %) solution for nebulization PRN Shortness Of Breath clopidogrel 75 mg tablet 75 mg PO DAILY 03/05/25 06/18/25 06/18/25 History melatonin 3 mg tablet 6 mg PO BEDTIME PRN Insomnia 03/05/25 06/18/25 05/13/25 21:35 History nitroglycerin 0.4 mg sublingual See Rx Instructions .Route .COMPLEX 03/05/25 06/18/25 Unknown History tablet triamcinolone acetonide 0.5 % See Rx Instructions .Route .COMPLEX 03/05/25 06/18/25 06/18/25 History topical cream empagliflozin 10 mg tablet 10 mg PO DAILY 04/06/25 06/18/25 06/18/25 History (Jardiance) fluoxetine 20 mg capsule 20 mg PO DAILY 04/06/25 06/18/25 06/18/25 History gabapentin 300 mg capsule 300 mg PO BID 04/06/25 06/18/25 06/18/25 History levothyroxine 50 mcg tablet 50 mcg PO DAILY 04/06/25 06/18/25 06/18/25 History potassium chloride 10 mEq 10 meq PO DAILY 04/06/25 06/18/25 06/18/25 History tablet,extended release(part/cryst) semaglutide 1 mg/dose (4 mg/3 mL) 1 mg SUBCUT Q7D 05/04/25 06/18/25 06/12/25 History subcutaneous pen injector (Ozempic) buspirone 5 mg tablet 5 mg PO BID anxiety 05/14/25 06/18/25 06/18/25 History fluoxetine 10 mg tablet 10 mg PO DAILY 05/18/25 06/18/25 06/18/25 History pantoprazole 40 mg tablet,delayed See Rx Instructions .Route .COMPLEX 05/18/25 06/18/25 06/18/25 History release sucralfate 100 mg/mL oral 10 ml PO .AC&HS 05/18/25 06/18/25 06/18/25 History suspension aspirin 81 mg tablet,delayed 81 mg PO DAILY 30 days #30 tabs 05/21/25 06/18/25 06/18/25 Rx release atorvastatin 40 mg tablet 40 mg PO QPM 30 days #30 tabs 05/21/25 06/18/25 06/17/25 Rx bumetanide 1 mg tablet 1 mg PO BID #60 tabs 06/04/25 06/18/25 06/18/25 Rx metoprolol tartrate 25 mg tablet 12.5 mg (1/2 x 25 mg) PO 06/04/25 06/18/25 06/18/25 Rx BID@0900,2100 #60 tabs sacubitril 24 mg-valsartan 26 mg 1 tab PO BID #60 tabs 10/08/25 10/22/25 10/22/25 Rx tablet (Entresto) fluconazole 200 mg tablet 200 mg PO CONT x14d 06/18/25 06/18/25 06/18/25 History hydroxyzine HCl 25 mg tablet 25 mg PO Q6H PRN Anxiety 06/18/25 06/18/25 Unknown History lorazepam 0.5 mg tablet See Rx Instructions .Route .COMPLEX 06/18/25 06/18/25 06/18/25 History Allergies Allergy/AdvReac Type Severity Reaction Status Date / Time broccoli Allergy ADR-Vomitin Verified 04/24/25 07:51 g PFSH Acute PFSH: Medical History (Updated 06/18/25 @ 13:12 by Ty Olivo MD) Positive occult stool blood test Acute upper GI bleeding Chronic anticoagulation Anticoagulation discontinued because of significant GI bleed. IVC filter in place UTI (urinary tract infection) Longstanding persistent atrial fibrillation Pulmonary embolism Dvt femoral (deep venous thrombosis) Bilateral Acute respiratory failure with hypoxia and hypercarbia Anemia Acute on chronic HFrEF (heart failure with reduced ejection fraction) Morbid obesity with BMI of 40.0-44.9, adult NSTEMI (non-ST elevated myocardial infarction) 02/12/2025 Acute on chronic combined systolic and diastolic congestive heart failure CKD (chronic kidney disease) History of deep vein thrombosis DNR (do not resuscitate) assisted resident COPD with acute exacerbation Open wound of right lower leg Open wound of left lower leg Pressure ulcer of right buttock, stage 3 Surgical History (Updated 06/04/25 @ 13:12 by Becky Zabala MD) S/P IVC filter Hx laparoscopic cholecystectomy Hx of left knee surgery History of surgery on extremity left leg and right arm Social History Smoking and tobacco/nicotine status: former use of tobacco/nicotine Quit status (tobacco/nicotine): has quit using Year quit tobacco: 2022 Alcohol intake: former Year of sobriety/quit date alcohol: 2021 Substance/Drug Use: never Additional social history: Patient lives in a senior care he wants DO NOT RESUSCITATE status as discussed with Cole Sheriff MD on 05/14/2025. His sister Bita Jean-Baptiste phone #[phone] is his next of kin. 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 He is pulling at the mask trying to pull it off when he is awake but other times he is resting peacefully. Chirag says he reattach the hose which patient had pulled off. I am asking the patient questions and he is indicating that he wants the mass removed. Once it was removed he was able to tell me the names of his family members at bedside and that he was in [place]. He told me that he would rather than wear the mask. Then I asked him if he was serious that he wanted to actually not wearing the mask and he was becoming increasingly short of breath breathing 45 times a minute and he stated that he would wear the mask. After a few minutes he went to pull the mask off again and asked same questions and he states he would like to have the mask off I told him that if we remove the mask and gave him pain meds he would go to sleep and not suffer but he would in his sleep and if that is what he wanted. He nodded his head. This was witnessed by siblings in the room. They indicate that they are happy that they do not have to make the decision but this is consistent with what they would want for him to be comfortable CV regular rate and rhythm lungs diminished breath sounds with crackles in the right lower lung field trace crackles in the left lower lung field Abdomen morbidly obese soft Calves right leg mild erythema with 2+ edema and enlarged versus the left which has absent or trace edema no erythema Data 06/18/25 11:36 06/18/25 11:36 Micro: Microbiology 06/18/25 14:08 Blood Culture - Preliminary Blood SPECIMEN COLLECTED 06/18/25 14:10 Blood Culture - Preliminary Blood SPECIMEN COLLECTED A&P Assessment and plan 1. Acute on chronic respiratory failure with hypoxia and hypercapnia: Patient has made urine and ABG showed some improvement but he still in respiratory distress and does not want to wear the BiPAP mask. Furthermore family does not believe he would wear it at the senior care. They report recurrent admissions and count 5 just in April and May. When I admitted the patient on 05/14/2025 he told me that he would rather just pass away then have EGD. Ultimately he did have a EGD which did not show anything and he declined colonoscopy. He has been admitted multiple times since then. At this time per he and family wishes will transition to comfort care 2. Acute on chronic combined systolic and diastolic congestive heart failure: Discontinue diuretics 3. S/P IVC filter: Unchanged 4. Pulmonary edema: Comfort care PDMP PDMP Reviewed: Not Reviewed Attestations Medical Necessity Statement*: 55 minutes spent in evaluation and coordination of care for this patient today. He is expected to be transferred back to nursing facility on comfort care tomorrow Coding Level of Care Code 16464 Diagnoses Acute on chronic respiratory failure with hypoxia and hypercapnia J96.21; J96.22 Acute on chronic combined systolic and diastolic congestive heart failure I50.43 S/P IVC filter Z95.828 Pulmonary edema J81.1 Time Spent (min) 55
[2025-06-18] MEDS: morphine 4 mg/mL SDV 1 mL IVP (20:55)
--- NOTE | 2025-06-18 22:31 | PC.NURSE ---
Addendum entered by Damari Flynn LPN 06/18/25 23:26: Dr. Virk contacted at 3040. Original Note: Patient at 2144, Charge nurse RUBÉN Vanessa was second nurse verification. Family at bedside, material handling warehouse supervisor Radha, and night hospitalist Dr. Virk were notified of patients passing.
--- NOTE | 2025-06-19 00:40 | PC.NURSE ---
Pt taken to [place] [facility] at 0040.
--- NOTE | 2025-06-19 00:42 | PC.NURSE ---
Staff Development Manager notified [facility] of pt passing.
--- NOTE | 2025-06-19 00:46 | PC.NURSE ---
Patient had no belongings on admission.
--- NOTE | 2025-06-19 01:14 | PC.NURSE ---
0114 [facility] and [facility] have released the body.
--- NOTE | 2025-06-19 05:52 | PM.DDS ---
Discharge Providers DDS Date of Admission: 06/18/25 13:45 Date Summary Completed: 06/18/25 Attending Provider at Admission: Cole Sheriff MD Time of : 21:45 Attending Provider at Discharge: Cole Sheriff MD Consults: None Primary Care Provider: Otilio HASKINS Diagnoses Hospital Diagnoses 1. Acute on chronic respiratory failure with hypoxia and hypercapnia: Details from hospital stay: Patient with multiple admissions for respiratory failure requiring BiPAP [place] [address]/18/2025 2. Acute on chronic combined systolic and diastolic congestive heart failure: Details from hospital stay: Exacerbated at time of 3. S/P IVC filter: Details from hospital stay: Unchanged 4. Pulmonary edema: Details from hospital stay: Presented time of Other Contributing Factors/Diagnoses Recurrent acute blood loss anemia not present this admission Reason for Visit Reason for Visit Resp Dist. Brief History: 74-year-old male has multiple medical issues including COPD CHF here from correction in respiratory distress. Patient here is tachypnea and is in distress patient's minimally responsive only respond to painful stimuli but not able to give any history. Per EMS patient has a DNR/DNI and family has been discussing possible hospice. No known fever he did have a recent admission here. Summary Date and Time of Time of : 21:45 Summary Summary: Edson Jaffe is a 74 year old male with recent discharge just 06/04/2025 for hypercapnic respiratory failure. According to last discharge summary patient has BiPAP nightly with 3 L/min oxygen at baseline but does not wear it at this correction. I am at bedside with [id number] Chirag Collins, sister Yair Collins and sister Isabel Jean-Baptiste. They tell me that patient has not been ambulatory for months to years and though he has diabetes his desire has been to eat chips. He lost his muscle mass to lower extremities and became centrally obese. He said increasing difficulty breathing and is breathing fast all the time. Last night he was hallucinating then struggling to breathe and came and was put on BiPAP. They did not want him to struggle but did not understand the option for comfort medications Patient and family elected for comfort care and he was treated with morphine for respiratory distress and passed at 2145 Additional Data Advance directives?: No Discharge Plan Discharge Patient Disposition: Condition: Stable DS Attestations Time Spent in /Discharge Care*: less than 30 min Quality - AMI: AMI present?: No Quality - Stroke: CVA present?: No Quality - VTE: VTE present?: No Coding Level of Care Code 00552 Diagnoses Acute on chronic respiratory failure with hypoxia and hypercapnia J96.21; J96.22 Acute on chronic combined systolic and diastolic congestive heart failure I50.43 S/P IVC filter Z95.828 Pulmonary edema J81.1 Time Spent (min) 25
--- NOTE | 2025-06-19 09:11 | PC.NURSE ---
Pts body was picked up and transported to [facility] home in [place], [place] at this time
== END 2025-06-18 21:45 | disposition expired | DRG 189 ==
LOC: ER 13:38 → MEDSURG 13:46
PROVIDERS: Admitting Provider Internal Medicine; Emergency Provider Emergency Medicine; PCP Student in an Organized Health Care Education/Training Program; Visit Provider Internal Medicine
DX: J96.22 Acute and chronic respiratory failure with hypercapnia (principal); I50.43 Acute on chronic combined systolic (congestive) and diastolic (congestive) heart failure; Z68.41 Body mass index [BMI] 40.0-44.9, adult; I48.11 Longstanding persistent atrial fibrillation; J96.21 Acute and chronic respiratory failure with hypoxia; J44.9 Chronic obstructive pulmonary disease, unspecified; Z66 Do not resuscitate; E11.22 Type 2 diabetes mellitus with diabetic chronic kidney disease; N18.9 Chronic kidney disease, unspecified; E66.01 Morbid (severe) obesity due to excess calories; Z51.5 Encounter for palliative care; Z87.440 Personal history of urinary (tract) infections; Z86.718 Personal history of other venous thrombosis and embolism; Z95.828 Presence of other vascular implants and grafts; I25.2 Old myocardial infarction
CPT/HCPCS: 36415; 36600; 71045; 80051; 80053; 82330; 82805; 83605; 83880; 85025; 87040; 93005; 94640; 94660; 96365; 96375; 99291; J0456; J0696; J1938; J2060; J2270; J2919; J7050; J9999